=== PATIENT | female | born 1950 | race Caucasian/White ===

== ENCOUNTER 2022-12-03 09:16 | Outpatient (OUT) | payer MEDICARE, OTHER, SELFPAY ==
[2022-12-03 09:51] LABS: Basophils Absolute Auto 0.1 10^3/uL (0.0-0.1); Basophils Percent Auto 1.3 % (0.2-2.0); Eosinophils Absolute Auto 0.4 10^3/uL (0.0-0.7); Eosinophils Percent Auto 6.4 % (0.9-7.0); Hematocrit 39.6 % (36.0-48.0); Hemoglobin 12.9 g/dL (12.0-16.0); Immature Granulocytes Abs Auto 0.02 10^3/uL (0.00-0.03); Immature Granulocytes Pct Auto 0.4 % (0.0-0.5); Lymphocytes Absolute Auto 1.2 10^3/uL (1.2-3.8); Lymphocytes Percent Auto 21.5 % (20.5-60.0); Mean Corpuscular HGB Conc 32.6 g/dL (29.9-35.2); Mean Corpuscular Hemoglobin 32.4 pg (26.7-34.0); Mean Corpuscular Volume 99.5 fL (81.0-99.0); Mean Platelet Volume 10.3 fL (9.5-13.5); Monocytes Absolute Auto 0.7 10^3/uL (0.3-0.8); Neutrophils Absolute Auto 3.2 10^3/uL (1.4-6.5); Neutrophils Percent Auto 58.4 % (43.0-75.0); Platelet Count 328 10^3/uL (150-450); Red Blood Count 3.98 10^6/uL (4.20-5.40); Red Cell Distribution Width 13.4 % (11.0-15.0); White Blood Count 5.5 10^3/uL (4.0-11.0)
[2022-12-03 12:12] LABS: Estimated Average Glucose 100 mg/dL; Glycohemoglobin A1C 5.1 % (4.5-6.2)
[2022-12-03 13:24] LABS: Alanine Aminotransferase 34 U/L (14-59); Albumin Globulin Ratio 1.1; Albumin Level 4.2 g/dL (3.4-5.0); Alkaline Phosphatase 43 U/L (46-116); Anion Gap 10.8; Aspartate Amino Transferase 34 U/L (15-37); BUN Creatinine Ratio 19.2; Bilirubin Total 0.4 mg/dL (0.2-1.0); Calcium 10.1 mg/dL (8.5-10.1); Carbon Dioxide 30.3 mmol/L (21.0-32.0); Chloride 104 mmol/L (98-107); Chol HDL Ratio 2.8; Cholesterol 188 mg/dL (<=200); Estimated GFR (African America 39 (>=60); Estimated GFR (Non-African Ame 33 (>=60); Free T3 1.98 pg/mL (2.18-3.98); Globulin 3.8 g/dL; Glucose 88 mg/dL (74-106); HDL Cholesterol 68 mg/dL (40-60); Potassium 4.1 mmol/L (3.5-5.1); Sodium 141 mmol/L (136-145); Triglycerides 60 mg/dL (<=150)
== END 2022-12-03 09:17 | disposition home or self-care (01) ==
LOC: LAB 09:19
PROVIDERS: PCP Family Medicine; Visit Provider Family Medicine
DX: I10 Essential (primary) hypertension (principal); K21.9 Gastro-esophageal reflux disease without esophagitis; E03.9 Hypothyroidism, unspecified; J30.9 Allergic rhinitis, unspecified; E78.5 Hyperlipidemia, unspecified; R73.09 Other abnormal glucose; D64.9 Anemia, unspecified; E55.9 Vitamin D deficiency, unspecified
CPT/HCPCS: 36415; 80053; 80061; 82306; 83036; 83540; 84436; 84443; 84481; 85025

== ENCOUNTER 2023-01-05 07:08 | Outpatient (RCR) | payer MEDICARE, OTHER, SELFPAY ==
[2023-01-05 07:31] LABS: Calcium 9.9 mg/dL (8.5-10.1); Estimated GFR (African America 49 (>=60); Estimated GFR (Non-African Ame 41 (>=60)
[2023-01-05 07:44] VITALS: BP 126/78; PULSE 50; RESP 18; TEMP 36.3; O2SAT 98
--- NOTE | 2023-01-05 07:58 | PC.NURSE ---
0744: Pt. to [facility] amb for Prolia injection. Seated in recliner. VSS. Denies reaction to med from past injections. Denies needs or c/o. Given water.
[2023-01-05] MEDS: DENOSUMAB 60 MG/ML SYRINGE SUBQ (08:04)
--- NOTE | 2023-01-05 08:06 | PC.NURSE ---
0804: Medicated with Prolia 60mg SQ to right arm. No bleeding to site. Pt. tolerates without c/o. Remains in recliner for brief observation.
--- NOTE | 2023-01-05 08:12 | PC.NURSE ---
0812: Pt. requests to leave due to another appointment. Denies c/o pain, n/v or dyspnea. D/c'd amb. to home with .
[2023-01-05 08:28] LABS: Free T4 1.39 ng/dL (0.76-1.46)
[2023-01-05 08:36] LABS: Thyroid Stimulating Hormone 0.274 uIU/mL (0.358-3.740)
== END 2023-02-03 17:52 | disposition home or self-care (01) ==
LOC: LAB 07:08
PROVIDERS: PCP Family Medicine; Visit Provider Family Medicine
DX: M81.0 Age-related osteoporosis without current pathological fracture (principal); E03.9 Hypothyroidism, unspecified
CPT/HCPCS: 36415; 82310; 82565; 84439; 84443; 96372; J0897

== ENCOUNTER 2023-01-23 07:05 | Outpatient (OUT) | payer MEDICARE, OTHER, SELFPAY ==
--- NOTE | 2023-01-23 | MM_ITS ---
Patient: AKIRA PERALTA Exam Date: 01/23/2023 : 1950 Gender:F Ordering : DR Miko Burris . Admission #: [id number] Family : Order #: [id number] CLICK HERE TO VIEW EXAM RADIOLOGY REPORT PROCEDURE: MM TOMOSYNTHESIS SCREENING BI COMPARISON: MG MAMM DX 3D LT CAD, 08/05/2021. MG MAMM SCREEN 3D NOEL CAD, 01/22/2022. INDICATIONS: Screening Calculator Name NCI Breast Cancer Risk Assessment Tool 5 Year Breast Cancer Risk 1.40% Lifetime Breast Cancer Risk 3.40% Personal Breast Cancer No Personal Ovarian Cancer No Treatments None Family Cancers Sister with ovarian cancer at age 53; Brother with pancreatic cancer at age 43; Uncle-maternal with bone cancer at age ~60; Aunt-maternal with all over cancer at age ~60; Uncle-maternal with lung cancer at age ~60. LOCATION: [facility] BREAST COMPOSITION: Scattered areas fibroglandular density. FINDINGS: DIAGNOSTIC CATEGORY 2--BENIGN FINDING. NO CHANGE FROM COMPARISON. Scattered benign-appearing calcifications are present. Scattered benign-appearing lymph nodes are present. RIGHT BREAST: No significant suspicious finding. LEFT BREAST: No significant suspicious finding. RECOMMENDATIONS: ROUTINE MAMMOGRAM AND CLINICAL EVALUATION IN 12 MONTHS. PLEASE NOTE: A NORMAL MAMMOGRAM DOES NOT EXCLUDE THE POSSIBILITY OF BREAST CANCER. A CLINICALLY SUSPICIOUS PALPABLE LUMP SHOULD BE BIOPSIED. Dictated by: Timi Buckley MD on 01/23/2023 at 09:27 Approved by: Timi Buckley MD on 01/23/2023 at 09:30
== END 2023-01-23 07:06 | disposition home or self-care (01) ==
LOC: MAMMO 07:05
PROVIDERS: PCP Family Medicine; Visit Provider Family Medicine
DX: Z12.31 Encounter for screening mammogram for malignant neoplasm of breast (principal); Z80.41 Family history of malignant neoplasm of ovary; Z80.8 Family history of malignant neoplasm of other organs or systems; Z80.1 Family history of malignant neoplasm of trachea, bronchus and lung
CPT/HCPCS: 77063; 77067

== ENCOUNTER 2023-03-19 11:28 | Outpatient (REF) | payer MEDICARE, OTHER, SELFPAY ==
[2023-03-19 12:19] LABS: SARS-CoV-2 Ag NEGATIVE (NEGATIVE)
[2023-03-19 16:11] LABS: SARS-CoV-2 NAA NOT DETECTED (NOT DETECTE)
== END 2023-03-19 11:29 | disposition home or self-care (01) ==
LOC: LAB 11:28
PROVIDERS: PCP Family Medicine; Visit Provider Family Medicine
DX: J21.9 Acute bronchiolitis, unspecified (principal)
CPT/HCPCS: 87635; 87811

== ENCOUNTER 2023-05-11 07:42 | Outpatient (OUT) | payer MEDICARE, OTHER, SELFPAY ==
--- OUTSIDE RECORDS SUMMARY | 2023-05-11 07:45 | XMS_ITS | CCD ---
Author Name Unknown Address [address] [facility] [address] [place] [id number] Organization [facility] Care Team Providers Care Bar Useful Or Busser Name Role Phone HOY ., DR ALVARADO Primary Care Unavailable HOY ., DR ALVARADO Consulting Unavailable HOY ., DR ALVARADO Attending Unavailable HOY ., DR ALVARADO Admitting Unavailable HOY ., DR ALVARADO Admitting Unavailable HOY ., DR ALVARADO Primary Care Unavailable HOY ., DR ALVARADO Consulting Unavailable HOY ., DR ALVARADO Attending Unavailable WEST, DR TESSA Bhat Consulting Unavailable HOY ., DR ALVARADO Primary Care Unavailable HOY ., DR ALVARADO Attending Unavailable HOY ., DR ALVARADO Consulting Unavailable HOY ., DR ALVARADO Admitting Unavailable HOY ., DR ALVARADO Primary Care Unavailable HOY ., DR ALVARADO Attending Unavailable HOY ., DR ALVARADO Consulting Unavailable HOY ., DR ALVARADO Admitting Unavailable ZIEBER, DR WEI Oliva Consulting Unavailable HOY ., DR ALVARADO Admitting Unavailable HOY ., DR ALVARADO Primary Care Unavailable HOY ., DR ALVARADO Attending Unavailable HOY ., DR ALVARADO Consulting Unavailable HOY ., DR ALVARADO Admazucena Unavailable HOY ., DR ALVARADO Primary Care Unavailable HOY ., DR ALVARADO Consulting Unavailable HOY ., DR ALVARADO Attending Unavailable ZIEBER, DR WEI Oliva Consulting Unavailable HOY ., DR ALVARADO Primary Care Unavailable HOY ., DR ALVARADO Attending Unavailable HOY ., DR ALVARADO Admazucena Unavailable HOY ., DR ALVARADO Admitting Unavailable HOY ., DR ALVARADO Primary Care Unavailable HOY ., DR ALVARADO Consulting Unavailable HOY ., DR ALVARADO Attending Unavailable WEST, DR TESSA Bhat Consulting Unavailable HOY ., DR ALVARADO Admazucena Unavailable HOY ., DR ALVARADO Primary Care Unavailable HOY ., DR ALVARADO Consulting Unavailable HOY ., DR ALVARADO Attending Unavailable HOY ., DR ALVARADO Primary Care Unavailable ZIEBER, DR WEI Oliva Consulting Unavailable ALGHOTHANI, MOHAMAD Admitting Unavailable ALGHOTHANI, MOHAMAD Attending Unavailable ALGHOTHANI, MOHAMAD Consulting Unavailable HOY ., DR ALVARADO Primary Care Unavailable ALGHOTHANI, MOHAMAD Admitting Unavailable ALGHOTHANI, MOHAMAD Consulting Unavailable ALGHOTHANI, MOHAMAD Attending Unavailable HOY ., DR ALVARADO Admitting Unavailable HOY ., DR ALVARADO Consulting Unavailable HOY ., DR ALVARADO Primary Care Unavailable HOY ., DR ALVARADO Attending Unavailable ZIEBER, DR WEI Oliva Consulting Unavailable HOY ., DR ALVARADO Admitting Unavailable HOY ., DR ALVARADO Primary Care Unavailable HOY ., DR ALVARADO Attending Unavailable HOY ., DR ALVARADO Consulting Unavailable HOY ., DR ALVARADO Primary Care Unavailable HOY ., DR ALVARADO Attending Unavailable HOY ., DR ALVARADO Admitting Unavailable HOY ., DR ALVARADO Consulting Unavailable HOY ., DR ALVARADO Attending Unavailable HOY ., DR ALVARADO Primary Care Unavailable HOY ., DR ALVARADO Admitting Unavailable HOY ., DR ALVARADO Consulting Unavailable ZIEBER, DR WEI Oliva Consulting Unavailable HOY ., DR ALVARADO Primary Care Unavailable SURINDER, ERNIE Admitting Unavailable SURINDER, ERNIE Consulting Unavailable ERNIE CADENA Attending Unavailable MAGNUS LACY Attending Unavailable ALGHOTHANI, MOHAMAD Attending Unavailable ALGHOTHANI, MOHAMAD Attending Unavailable TEGAN PAIZ Attending Unavailable Allergies Allergy Classification Reported Allergen(s) Allergy Type Date of Onset Reaction(s) Facility (2 sources) Amoxicillin; Translations: [AMOXICILLIN] Drug Allergy 05-13-2022 [facility] Repository (2 sources) Morphine; Translations: [MORPHINE] Drug Allergy 05-13-2022 [facility] Problems Active Problems Problem Classification Problem Date Documented Da te Episodic/Chronic Acute bronchitis (5 sources) Acute bronchitis, unspecified; Translations: [ACUTE BRONCHITIS UNSPECIFIED] Onset: 11-01-2021 Episodic Disorders of lipid metabolism (5 sources) Hyperlipidemia, unspecified; Translations: [Mixed hyperlipidemia] Onset: 11-15-2021 Chronic Esophageal disorders (1 source) Gastro-esophageal reflux disease without esophagitis; Translations: [GERD WITHOUT ESOPHAGITIS] Onset: 11-15-2021 Chronic Essential hypertension (4 sources) Essential (primary) hypertension; Translations: [ESSENTIAL PRIMARY HYPERTENSION] Onset: 11-14-2021 Chronic Headache; including migraine (4 sources) Migraine without aura, not intractable, without status migrainosus; Translations: [MIGRAINE W/O AURA NOT INTRCT W/O SE] Onset: 09-18-2021 Chronic Heart valve disorders (8 sources) Nonrheumatic mitral (valve) insufficiency; Translations: [Rheumatic disorders of both mitral and tricuspid valves] Onset: 05-13-2022 Chronic Nonspecific chest pain (4 sources) Chest pain, unspecified; Translations: [CHEST PAIN UNSPECIFIED] Onset: 05-26-2022 Episodic Nutritional deficiencies (1 source) Vitamin D deficiency, unspecified; Translations: [VITAMIN D DEFICIENCY UNSPECIFIED] Onset: 11-15-2021 Chronic Osteoporosis (4 sources) Age-related osteoporosis without current pathological fracture; Translations: [AGE-REL OSTEOPOR W/O CURR PATH FX] Onset: 07-02-2022 Chronic Peripheral and visceral atherosclerosis (1 source) Peripheral vascular disease, unspecified; Translations: [PERIPHERAL VASCULAR DISEASE UNS] Onset: 06-05-2022 Chronic Residual codes; unclassified (1 source) Localized edema; Translations: [LOCALIZED EDEMA] Onset: 06-11-2022 Episodic Thyroid disorders (1 source) Hypothyroidism, unspecified; Translations: [HYPOTHYROIDISM UNSPECIFIED] Onset: 11-15-2021 Chronic Unclassified (3 sources) OTHER LOW BACK PAIN; Translations: [OTHER LOW BACK PAIN] Onset: 06-11-2022 Unclassified (4 sources) CONTACT W/AND (SUSP) EXPOS COVID-19; Translations: [CONTACT W/AND (SUSP) EXPOS COVID-19] Onset: 11-06-2021 Unclassified (2 sources) Valve Disorder; Translations: [Valve Disorder] Onset: 05-14-2022 Past or Other Problems Problem Classification Problem Date Documented Da te Episodic/Chronic Deficiency and other anemia (1 source) Anemia, unspecified; Translations: [ANEMIA UNSPECIFIED] Onset: 11-15-2021 Episodic Diabetes mellitus without complication (1 source) Other abnormal glucose; Translations: [OTHER ABNORMAL GLUCOSE] Onset: 11-15-2021 Episodic Other screening for suspected conditions (not mental disorders or infectious disease) (8 sources) Encounter for screening mammogram for malignant neoplasm of breast; Translations: [Other abnormal and inconclusive findings on diagnostic imaging of breast] Onset: 08-05-2021 Episodic Other upper respiratory infections (1 source) Acute sinusitis, unspecified; Translations: [ACUTE SINUSITIS UNSPECIFIED] Onset: 08-07-2021 Episodic Residual codes; unclassified (1 source) Family history of malignant neoplasm of trachea, bronchus and lung; Translations: [FAM HX MALIG NEOPLSM TRACH BRON LNG] Onset: 01-26-2022 Episodic Residual codes; unclassified (1 source) Family history of malignant neoplasm of ovary; Translations: [FAM HX MALIGNANT NEOPLASM OVARY] Onset: 01-26-2022 Episodic Residual codes; unclassified (1 source) Family history of malignant neoplasm of other organs or systems; Translations: [FAM HX MALIG NEOPLASM OTH ORGN/SYS] Onset: 01-26-2022 Episodic Residual codes; unclassified (2 sources) Family history of ischemic heart disease and other diseases of the circulatory system; Translations: [Family history of ischemic heart disease and other diseases of the circulatory system] Onset: 05-13-2022 Episodic Unclassified (1 source) OTHER LOW BACK PAIN; Translations: [OTHER LOW BACK PAIN] Onset: 05-30-2022 Unclassified (1 source) CONTACT W/AND (SUSP) EXPOS COVID-19; Translations: [CONTACT W/AND (SUSP) EXPOS COVID-19] Onset: 05-22-2022 Results Test Name Value Interpretation Reference Range Facility Office Visiton 04-10-2023 Follow-up visit [id number] Shirley Buitrago ly D 1950 F Date Provider Department Center 04/10/2023 3848-MELO JENKINS [facility] No family history on file Level of Service:56371 [place] OFFICE/OUTPATIENT ESTABLISHED LOW MDM 20 MIN Normal [facility] Office Visiton 11-25-2022 Follow-up visit [id number] Shirley Buitrago ly D 1950 F Date Provider Department Center 11/25/2022 TEGAN LILLY PEDRO [facility] No family history on file Level of Service:55678 [place] OFFICE/OUTPATIENT ESTABLISHED MOD MDM 30-39 MIN Normal [facility] CALCIUMon 07-02-2022 Calcium [Mass/Vol] 9.8 mg/dL Normal 8.5-10.1 [facility] Comment on above: Performed By: #### C A, CREA #### [facility] [address] [place] [address] Dr. Zuly Medina CREATININEon 07-02-2022 Creatinine [Mass/Vol] 1.41 mg/dL Critically high 0.55-1.02 [facility] Comment on above: Performed By: #### C A, CREA #### [facility] [address] [place] [address] Dr. Zuly Medina EGFR-AF PRYDEINIG 44 mL/min/1.73m2 Critically low >=60 [facility] Comment on above: Performed By: #### C A, CREA #### [facility] [address] [place] [address] Dr. Zuly Medina EGFR-NON AF PRYDEINIG 37 mL/min/1.73m2 Critically low >=60 [facility] Comment on above: Performed By: #### C A, CREA #### [facility] [address] [place] [address] Dr. Zuly Medina MRI LSPINE WO CONon 06-02-19 23 MRI LSPINE WO CON EXAMINATION: MRI LSPINE WO CON HISTORY: Low back pain COMPARISON: No relevant comparison available. TECHNIQUE: A variety of imaging planes and parameters were utilized for visualization of suspected pathology. FINDINGS: For the purposes of numbering, sagittal T2 image # 8 extends from the T10-T11 vertebral body superiorly to the S2-S3 level inferiorly. PARASPINAL AREA: Normal with no visible mass. BONES: Normal alignment with no acute fracture or spondylolisthesis. Moderate signal abnormality consistent with age related marrow changes CORD/CAUDA EQUINA: Normal caliber, contour, and signal intensity. DISC LEVELS: 12-L1: No significant disc/facet abnormality, spinal stenosis, or foraminal stenosis. L1-L2: No significant disc/facet abnormality, spinal stenosis, or foraminal stenosis. L2-L3: Mild disc space narrowing and disc desiccation. Mild diffuse posterior disc/osteophyte complex. No central or foraminal stenosis L3-L4: Moderate disc space narrowing and disc desiccation. Mild to moderate diffuse disc/osteophyte complex. No central or foraminal stenosis L4-L5: Moderate disc space narrowing and disc desiccation with endplate sclerosis. Moderate diffuse disc/osteophyte complex. Posterior broad-based disc herniation the protrusion type extending up to 3.5 mm. Central or foraminal stenosis L5-S1: Early degenerative disc disease is present without focal protrusion or neural impingement. IMPRESSION: Degenerative changes most significant at L3-L4 and L4-L5. No central or foraminal stenosis Electronically authenticated by: TESSA ESTEVES Date: 2022-06-02 07:58 Normal [facility] VC VENOUS REFLUX NOEL LMTon 0 05-30-2022 VC VENOUS REFLUX NOEL LMT Patient: ADRIANNA BUITRAGO Exam Date: 05/30/2022 : 1950 Gender:F Ordering : DR JENNY NATARAJAN . Admission #: [id number] Family : Order #: [id number] CLICK HERE TO VIEW EXAM RADIOLOGY REPORT PROCEDURE: VEIN CENTER ULTRASOUND VENOUS REFLUX BILATERAL LIMTED COMPARISON: None. INDICATIONS: Low back pain M54.59 TECHNIQUE: Duplex imaging of the lower extremity to assess the deep and superficial venous system for the presence of deep or superficial venous incompetence and to document the location and severity of disease. The study includes evaluation of the great saphenous vein (GSV), anterior accessory saphenous vein (AASV) and small saphenous vein (SSV). Patient scanned in reverse Trendelenburg and standing. FINDINGS: RIGHT LOWER EXTREMITY: Saphenofemoral Junction Reflux: Yes 8.2mm 1.4 sec GSV: Diam (mm) Reflux/ Time (sec) Proximal Thigh 4.6 Yes 0.6 Mid Thigh 2.1 Yes 0.3 Distal Thigh 1.8 No Prox Calf 1.5 No Mid Calf 1.2 Yes 0.3 Saphenopopliteal Junction Reflux: 2.7mm Yes 0.5 SSV: Proximal Calf 2.1 No Mid Calf 3.0 Yes 0.4 AASV: Proximal Thigh 2.9 Yes 0.8 Mid Thigh 1.9 Yes 0.4 Distal Thigh Thrombi: No acute or chronic thrombus. Compressibility: Normal. Flow: Deep venous reflux. Distal medial lower leg 3.8 mm with 0.7s reflux. Tech Note: Medial knee varicose vein measures 1.4 mm with 1.2s reflux. Varicose vein anterior knee measures 1.4 mm with 0.3s reflux. LEFT LOWER EXTREMITY: Saphenofemoral Junction Reflux: No 6.8 mm 0 sec GSV: Diam (mm) Reflux/Time (sec) Proximal Thigh 2.9 No Mid Thigh 2.3 Yes 0.2 Distal Thigh 2.0 Yes 0.2 Prox Calf 1.9 Yes 0.2 Mid Calf 3.2 Yes 4.6 Saphenopopliteal Junction Relux: 2.8 mm Yes 0.2 SSV: Proximal Calf 3.2 Yes 0.2 Mid Calf 2.7 Yes 0.3 AASV: Not present Proximal Thigh Mid Thigh Distal Thigh Thrombi: No acute or chronic thrombus. Compressibility: Normal. Flow: Deep venous reflux. Veterinary Practitioner: Tech Note: Proximal medial lower leg varicose vein measures 1.7 mm with 0.3s reflux. Mid medial calf varicose vein measures 1.5 mm without reflux. CONCLUSION: 1. Minimal right great, small and anterior accessory saphenous vein insufficiency without dilatation 2. Single short segment of moderate reflux left distal great saphenous vein 3. Bilateral deep vein reflux Dictated by: Tessa Esteves MD on 05/30/2022 at 11:18 Approved by: Tessa Esteves MD on 05/30/2022 at 11:20 Normal [facility] STRESS/REST MULTIon 05-26 [place] STRESS/REST MULTI Patient: KATHRYN ADRIANNA AyonDexter Exam Date: 05/26/2022 : 1950 Gender:F Ordering : MELO JENKINS Admission #: [id number] Family : DR JENNY NATARAJAN . Order #: [id number] CLICK HERE TO VIEW EXAM RADIOLOGY REPORT PROCEDURE: RADIONUCLIDE IMAGING STRESS/REST MULTI COMPARISON: NM STRESS/REST MULTI, 06/17/2017. INDICATIONS: Chest pain TECHNIQUE: Exam Description: Stress/Rest one day protocol gated SPECT Rest Imagin.9 mCi Tc-99m Cardiolite IV on 05/26/2022 Stress Imaging 32.0 mCi Tc-99m Cardiolite IV on 05/26/2022 Exercise Protocol: Ray Heart Rate (bpm): Rest: 57 Max: 148 PMHR: 98 Blood Pressure: Rest: 128/64 Max: 168/80 Exercise Time: Minutes: 7 Seconds: 30 Stage Reached: Stage: 3 Mets 10.1 Symptoms: none Rest and peak stress ECG findings were normal and the exercise portion of the study was normal per attending physician Dr. Garcia . For more details please see separate cardiac stress test report. FINDINGS: QUALITY OF STUDY: Excellent. PERFUSION DEFECT: None. LOCATION: N/A SIZE: N/A. SEVERITY: N/A. TYPE: N/A. WALL MOTION: Normal. LV SIZE: Normal. 45 mL. TID / TCD: None; 0.6 LVEF: Normal. Calculated EF 91%. SUMMARY: Myocardial perfusion imaging study is NORMAL. CONCLUSION: 1. Normal nuclear medicine myocardial perfusion scan. 2. Normal exercise portion of study. Please see Dr. Garcia's report. Dictated by: Wei Garcia M.D. on 05/27/2022 at 12:58 Approved by: Wei Garcia M.D. on 05/27/2022 at 13:00 Normal [facility] XR LSPINE MIN 4 VIEWSon 05-07 XR LSPINE MIN 4 VIEWS EXAMINATION: XR LSPINE MIN 4 VIEWS HISTORY: Low back pain , leg cramping, foot pain COMPARISON: No relevant comparison available. FINDINGS: BONES: Mild left convex curvature of lumbar spine. Mild straightening of normal lordotic curvature. Mild grade 1 retrolisthesis of L4 on 5. Moderate degenerative facet arthropathy L3-4 through L5-S1. DISC SPACES: Marked narrowing L3-4, L4-5. Mild narrowing L5-S1. PARASPINOUS: Atherosclerotic disease of aorta without visible aneurysm. OTHER: 1.4 cm stone suspected to be within gallbladder. IMPRESSION: 1. Marked degenerative changes of lower lumbar spine. Consider MRI for further evaluation. Electronically authenticated by: WEI GARCIA Date: 2022-05-23 14:32 Normal [facility] Covid-19 PCR (CVDTBH)on 05-07 SARS-CoV-2 (COVID-19) RNA MARY+probe Ql (Unsp spec) Not detected Normal NOT DETECTED [facility] Comment on above: Result Comment: This test is not yet approved or cleared by the [place] FDA. When there are no FDA-approved or cleared tests available, and other criteria are met, FDA can make tests available under an emergency access mechanism called an Emergency Use Authorization (EUA). The EUA for this test is supported by the [place] of Health and Human Service's (HHS's) declaration that circumstances exist to justify the emergency use of in vitro diagnostics for the detection and/or diagnosis of the virus that causes COVID-19. This EUA will remain in effect (meaning this test can be used) for the duration of the COVID-19 declaration justifying emergency of IVDs, unless it is terminated or revoked by FDA (after which the test may no longer be used). When diagnostic testing is negative, the possibility of a false negative should be considered in the context of a patient's recent exposures and the presence of clinical signs and symptoms consistent with SARS-CoV-2. Performed By: #### C VDTB #### [facility] [address] [place] [address] Dr. Zuly Medina INFLUENZA A AND B AGon 05-22 [facility] SEE BELOW Normal [facility] Comment on above: Result Comment: Nega tive for Flu A protein angiten. Infection due to Flu A cannot be ruled out. Flu A angiten in the sample may be below the detection limit of the test. Performed By: #### I NFLUAB #### [facility] [address] [place] [address] Dr. Zuly [facility] BEL[facility] Normal [facility] Comment on above: Result Comment: Nega tive for Flu B protein antigen. Infection due to Flu B cannot be ruled out. Flu B antigen in the sample may be below the detection limit of the test. Performed By: #### I NFLUAB #### [facility] [address] [place] [address] Dr. Zuly Medina INFLUENZA A AG Negative Normal NEGATIVE SEE COMMENT [facility] Comment on above: Performed By: #### I NFLUAB #### [facility] [address] [place] [address] Dr. Zuly Medina INFLUENZA B AG Negative Normal NEGATIVE SEE COMMENT [facility] Comment on above: Performed By: #### I NFLUAB #### [facility] [address] [place] [address] Dr. Zuly Medina ECHOCARDIO M/2D COMPLETEon 0 05-14-2022 ECHOCARDIO M/2D COMPLETE Patient: ADRIANNA BUITRAGO Exam Date: 05/14/2022 : 1950 Gender:F Ordering : MELO JENKINS Admission #: [id number] Family : JENYN NATARAJAN . Order #: [id number] CLICK HERE TO VIEW EXAM ECHOCARDIOGRAM REPORT PROCEDURE: CARDIO PULMONARY ECHOCARDIO M/2D COMP INDICATIONS: Mitral regurgitation, COPD, Chronic bronchitis COMPARISON: None. DESCRIPTION: COMPLETE ECHOCARDIOGRAM Real-time transthoracic echocardiography with 2D, M-mode, spectral and color flow Doppler performed. QUALITY: Technical quality was adequate. 63 124# 126/60 HR 51 LEFT VENTRICLE: Normal chamber size. Proximal septal hypertrophy (sigmoid septum). Global left ventricular systolic function is normal. No regional wall motion abnormalities. LV EF: Visual estimation of left ventricular ejection fraction is 65%. DIASTOLIC: Normal diastolic function. ATRIAL SEPTUM: LEFT ATRIUM: Normal chamber size. RIGHT ATRIUM: Normal chamber size. RIGHT VENTRICLE: Normal chamber size. Normal right ventricular systolic function. TRICUSPID VALVE: Normal mobility and thickness. No stenosis with mild regurgitation. No evidence of pulmonary hypertension. RVSP 27 mmHg MITRAL VALVE: Normal mobility and thickness. No evidence of mitral valve stenosis. Mild mitral annular calcification. Trivial mitral regurgitation. AORTIC VALVE: Normal trileaflet appearance. No evidence of aortic valve stenosis. No aortic regurgitation. AORTIC ROOT: Normal diameter and appearance. PULMONIC VALVE: Normal thickness and mobility. No stenosis. Trivial regurgitation. PERICARDIUM: No evidence of pericardial effusion. IVC: Collapses with inspirations. IVC is small in size. PLEURA: CONCLUSION: 1. Normal ventricular systolic function. LVEF is 65%. 2. Normal diastolic function. 3. Mild tricuspid regurgitation. Trivial mitral regurgitation. 4. Normal right-sided pressures. 5. No pericardial effusion. Adult Echocardiography Procedure Report Left Ventricle LVEDD (3.7 - 5.6 cm): 4.08 cm LVESD (2.2 - 4.0 cm): 2.91 cm LVPW thickness (0.5 - 1.0 cm): 0.92 cm LVOT Max Gradient: 4.43 mm[Hg] Peak Velocity (LVOT): 1.05 m/s LVOT Diameter 1.86 cm Left Ventricular Ejection Fraction: 65 % Left Atrium LA Volume Index (2D A2C): 46.73 ml, 46.73 ml Left Atrium Systolic Dimension: 3.76 cm Mitral Valve MV E to A Ratio: 0.82 Mitral Valve A-Wave Peak Velocity: 0.82 m/s Mitral Valve E-Wave Peak Velocity: 0.67 m/s Right Ventricle RV Internal Diastolic Dimension: 3.36 cm Aorta AO Root Diam: 2.99 cm Ascending Ao Diam: 3.37 cm Aortic Valve AoV Area (Peak Fransico): 2.55 cm2, 2.55 cm2 Peak Velocity(Antegrade Flow): 1.12 m/s, 1.12 m/s Peak Gradient(Antegrade Flow): 5.01 mm[Hg], 5.01 mm[Hg] Tricuspid Valve Peak Velocity (Regurgitant Flow): 2.43 m/s, 2.10 m/s, 2.18 m/s, 2.18 m/s Pulmonic Valve Peak Velocity: 0.82 m/s Peak Gradient: 2.72 mm[Hg] Right Atrium Dictated by: Azam Garcia M.D. on 05/15/2022 at 18:48 Approved by: Azam Garcia M.D. on 05/15/2022 at 18:51 Normal [facility] Office Visiton 05-14-2022 Follow-up visit [id number] Shirley Buitrago 1950 F Date Provider Department Center 05/14/2022 3848-MELO JENKINS [facility] No family history on file Level of Service:66710 [place] OFFICE/OUTPATIENT ESTABLISHED MOD MDM 30-39 MIN Reason for Visit and Comments: Hyperlipidemia [182] Valve Disorder [3372] Normal [facility] MG MAMM SCREEN 3D NOEL CADon 01-22-2022 MG MAMM SCREEN 3D NOEL CAD Patient: BUITRAGOADRIANNA Exam Date: 01/22/2022 : 1950 Gender:F Ordering : DR JENNY NATARAJAN . Admission #: [id number] Family : Order #: [id number] CLICK HERE TO VIEW EXAM RADIOLOGY REPORT PROCEDURE: MAMMOGRAM SCREENING 3D BILATERAL CAD COMPARISON: MG MAMM DX 3D LT CAD, 08/05/2021. MG MAMM SCREEN 3D NOEL CAD, 01/21/2021. INDICATIONS: Screening mammography Calculator Name NCI Breast Cancer Risk Assessment Tool 5 Year Breast Cancer Risk 1.40% Lifetime Breast Cancer Risk 3.60% Personal Breast Cancer No Personal Ovarian Cancer No Treatments None Family Cancers Sister with ovarian cancer at age 53; Brother with pancreatic cancer at age 43; Uncle-maternal with bone cancer at age 60; Aunt-maternal with all over cancer at age 60; Uncle-maternal with lung cancer at age 60. LOCATION: [facility] BREAST COMPOSITION: Scattered areas fibroglandular density. FINDINGS: DIAGNOSTIC CATEGORY 2--BENIGN FINDING: RIGHT BREAST: No significant suspicious finding. No significant change has occurred. LEFT BREAST: No significant suspicious finding. Stable, chronic asymmetries within the upper outer and lower outer quadrants. No significant change has occurred. RECOMMENDATIONS: ROUTINE MAMMOGRAM AND CLINICAL EVALUATION IN 12 MONTHS. PLEASE NOTE: A NORMAL MAMMOGRAM DOES NOT EXCLUDE THE POSSIBILITY OF BREAST CANCER. A CLINICALLY SUSPICIOUS PALPABLE LUMP SHOULD BE BIOPSIED. Dictated by: Wei Garcia M.D. on 01/22/2022 at 14:28 Approved by: Wei Garcia M.D. on 01/22/2022 at 14:36 Normal [facility] CALCIUMon 12-31-2021 Calcium [Mass/Vol] 10.0 mg/dL Normal 8.5-10.1 [facility] Comment on above: Performed By: #### CHIDI MCDANIEL #### [facility] [address] [place] [address] Dr. Zuly Medina CREATININEon 12-31-2021 Creatinine [Mass/Vol] 1.33 mg/dL Critically high 0.55-1.02 [facility] Comment on above: Performed By: #### CHIDI MCDANIEL #### [facility] [address] [place] [address] Dr. Zuly Medina EGFR-AF PRYDEINIG 48 mL/min/1.73m2 Critically low >=60 [facility] Comment on above: Performed By: #### CHIDI MCDANIEL #### [facility] [address] [place] [address] Dr. Zuly Medina EGFR-NON AF PRYDEINIG 39 mL/min/1.73m2 Critically low >=60 [facility] Comment on above: Performed By: #### CHIDI MCDANIEL #### [facility] [address] [place] [address] Dr. Zuly Medina [facility]06 SARS-CoV-2 (COVID-19) RNA MARY+probe Ql (Unsp spec) Not detected Normal NOT DETECTED [facility] Comment on above: Result Comment: This test is not yet approved or cleared by the [place] FDA. When there are no FDA-approved or cleared tests available, and other criteria are met, FDA can make tests available under an emergency access mechanism called an Emergency Use Authorization (EUA). The EUA for this test is supported by the Geophysical Party Chief of Health and Human Service's (HHS's) declaration that circumstances exist to justify the emergency use of in vitro diagnostics for the detection and/or diagnosis of the virus that causes COVID-19. This EUA will remain in effect (meaning this test can be used) for the duration of the COVID-19 declaration justifying emergency of IVDs, unless it is terminated or revoked by FDA (after which the test may no longer be used). When diagnostic testing is negative, the possibility of a false negative should be considered in the context of a patient's recent exposures and the presence of clinical signs and symptoms consistent with SARS-CoV-2. Performed By: #### C VDTBH #### [facility] [address] [place] [address] Dr. Zuly Medina T4, T3U, FTI LABCORPon 11-15 Free Thyroxine Index 2.7 Normal 1.2-4.9 [facility] Comment on above: Performed By: #### C VDTBH #### [facility] [address] [place] [address] Dr. Zuly Medina T3 Uptake 32 % Normal 24-39 [facility] Comment on above: Performed By: #### C VDTBH #### [facility] [address] [place] [address] Dr. Zuly Medina T4 [Mass/Vol] 8.5 ug/dL Normal 4.5-12.0 [facility] Comment on above: Performed By: #### C VDTBH #### [facility] [address] [place] [address] Dr. Zuly Medina VIT D 25-OH LABCORPon 2021 Vitamin D, 25-Hydroxy 114.0 ng/mL Critically high 30.0-100.0 [facility] Comment on above: Result Comment: Jenny min D deficiency has been defined by the [place] of [employer] and an Endocrine Society practice guideline as a level of serum 25-OH vitamin D less than 20 ng/mL (1,2). The Endocrine Society went on to further define vitamin D insufficiency as a level between 21 and 29 ng/mL (2). 1. IOM ([place] of Medicine). 2010. Dietary reference intakes for calcium and D. Steve [place]: The National Academies Press. 2. Anel MF, Chandrika NC, Ronaldo MCCALLUM, et al. Evaluation, treatment, and prevention of vitamin D deficiency: an Endocrine Society clinical practice guideline. JCEM. 2010; 96(7):1911-30. Performed By: #### V ITADLC #### [facility] [address] [place] [address] Dr. Zuly Medina CBC AUTO DIFFon 11-14-2021 BASO # 0.0 103/ul Normal 0.0-0.1 [facility] Comment on above: Performed By: #### CHIDI MCDANIEL #### [facility] [address] [place] [address] Dr. Zuly Medina Basophils/100 WBC (Bld) 0.4 % Normal 0.2-2.0 [facility] Comment on above: Performed By: #### CHIDI MCDANIEL #### [facility] [address] [place] [address] Dr. Zuly Medina EO # 0.3 103/ul Normal 0.0-0.7 [facility] Comment on above: Performed By: #### Oliverio SIMS [place] #### [facility] [address] [place] [address] Dr. Zuly Medina Eosinophils/100 WBC (Bld) 4.1 % Normal 0.9-7.0 [facility] Comment on above: Performed By: #### Oliverio SIMS [place] #### [facility] [address] [place] [address] Dr. Zuly Medina Erythrocyte distribution width (RBC) [Ratio] 14.1 % Normal 11.0-15.0 [facility] Comment on above: Performed By: #### CHIDI MCDANIEL #### [facility] [address] [place] [address] Dr. Zuly Medina Hematocrit (Bld) [Volume fraction] 36.0 % Normal 36.0-48.0 [facility] Comment on above: Performed By: #### CHIDI MCDANIEL #### [facility] [address] [place] [address] Dr. Zuly Medina Hemoglobin (Bld) [Mass/Vol] 11.6 g/dL Critically low 12.0-16.0 [facility] Comment on above: Performed By: #### CHIDI MCDANIEL #### [facility] [address] [place] [address] Dr. Zuly Medina IG # 0.01 10e3/ul Normal 0.00-0.03 [facility] Comment on above: Performed By: #### CHIDI MCDANIEL #### [facility] [address] [place] [address] Dr. Zuly Medina IG % 0.1 % Normal 0.0-0.5 [facility] Comment on above: Performed By: #### CHIDI MCDANIEL #### [facility] [address] [place] [address] Dr. Zuly Medina LYMPH # 1.3 103/ul Normal 1.2-3.8 [facility] Comment on above: Performed By: #### CHIDI MCDANIEL #### [facility] [address] [place] [address] Dr. Zuly Medina Lymphocytes/100 WBC (Bld) 19.3 % Critically low 20.5-60.0 [facility] Comment on above: Performed By: #### CHIDI MCDANIEL #### [facility] [address] [place] [address] Dr. Zuly Medina MANUAL DIFF REQ NO Normal [facility] Comment on above: Performed By: #### CHIDI MCDANIEL #### [facility] [address] [place] [address] Dr. Zuyl Medina MCH (RBC) [Entitic mass] 31.4 pg Normal 26.7-34.0 [facility] Comment on above: Performed By: #### CHIDI MCDANIEL #### [facility] [address] [place] [address] Dr. Zuly Medina MCHC (RBC) [Mass/Vol] 32.2 g/dL Normal 29.9-35.2 [facility] Comment on above: Performed By: #### CHIDI MCDANIEL #### [facility] [address] [place] [address] Dr. Zuly Medina MCV (RBC) [Entitic vol] 97.6 fL Normal 81.0-99.0 [facility] Comment on above: Performed By: #### CHIDI MCDANIEL #### [facility] [address] [place] [address] Dr. Zuly Medina MONO # 0.8 103/ul Normal 0.3-0.8 [facility] Comment on above: Performed By: #### CHIDI MCDANIEL #### [facility] [address] [place] [address] Dr. Zuly Medina Monocytes/100 WBC (Bld) 11.8 % Normal 1.7-12.0 [facility] Comment on above: Performed By: #### CHIDI MCDANIEL #### [facility] [address] [place] [address] Dr. Zuly Medina NEUT # 4.4 103/ul Normal 1.4-6.5 [facility] Comment on above: Performed By: #### Oliverio SIMS [place] #### [facility] [address] [place] [address] Dr. Zuly Medina Neutrophils/100 WBC (Bld) 64.3 % Normal 43.0-75.0 [facility] Comment on above: Performed By: #### CHIDI MCDANIEL #### [facility] [address] [place] [address] Dr. Zuly Medina Platelet mean volume (Bld) [Entitic vol] 10.1 fL Normal 9.5-13.5 [facility] Comment on above: Performed By: #### C CHIDI SIMS #### [facility] [address] [address] [address] Zuly Medina PLT 311 103/ul Normal 150-450 [facility] Comment on above: Performed By: #### C BETHANY [place] #### [facility] [address] [address] [address] Zuly Medina RBC 3.69 106/ul Critically low 4.20-5.40 [facility] Comment on above: Performed By: #### C BETHANY [place] #### [facility] [address] [address] [address] Zuly Medina WBC 6.9 103/ul Normal 4.0-11.0 [facility] Comment on above: Performed By: #### CHIDI MCDANIEL #### [facility] [address] [place] [address] Dr. Zuly Medina GLYCOHEMOGLOBIN A1Con 2021 ADA RECOMMENDATION SEE BELOW Normal [facility] Comment on above: Result Comment: ADA RECOMMENDED LIMIT 4.0 - 6.0 ADA THERAPEUTIC TARGET < 7.0 ACTION SUGGESTED > 7.0 Performed By: #### A 1C #### [facility] [address] [place] [address] Dr. Zuly Medina Glucose [Mass/Vol] 103 mg/dL Normal [facility] Comment on above: Performed By: #### A 1C #### [facility] [address] [address] [address] Zuly Medina HbA1c (Bld) [Mass fraction] 5.2 % Normal 4.5-6.2 [facility] Comment on above: Performed By: #### A 1C #### [facility] [address] [address] [address] Zuly Medina IRONon 11-14-2021 Iron [Mass/Vol] 60.0 ug/dL Normal 50.0-170.0 [facility] Comment on above: Performed By: #### C VDTBH #### [facility] [address] [address] [address] Zuly Medina LIPID PROFILEon 11-14-2021 CHOL-HDL RATIO NORM SEE BELOW Normal [facility] Comment on above: Result Comment: 3.3 - 4.4 LOW RISK 4.4 - 7.1 AVERAGE RISK 7.1 - 11.0 MODERATE RISK >11.0 HIGH RISK Performed By: #### Oliverio SIMS, [place] #### [facility] [address] [address] [address] Zuly Medina Cholesterol [Mass/Vol] 145 mg/dL Normal <=200 [facility] Comment on above: Performed By: #### Oliverio SIMS, [place] #### [facility] [address] [address] [address] Zuly Medina Cholesterol in HDL [Mass/Vol] 65 mg/dL Critically high 40-60 [facility] Comment on above: Performed By: #### Oliverio SIMS, [place] #### [facility] [address] [address] [address] Zuly Medina Cholesterol in LDL [Mass/Vol] 72.2 mg/dL Normal [facility] Comment on above: Performed By: #### Oliverio SIMS, [place] #### [facility] [address] [address] [address] Zuly Medina Cholesterol.total/Ch olesterol in HDL [Mass ratio] 2.2 {ratio} Normal [facility] Comment on above: Performed By: #### Oliverio SIMS, [place] #### [facility] [address] [address] [address] Zuly Medina HDL NORMAL > or = 60 mg/dl - LO W CARDIOVASCULAR RISK <40 mg/dl - HIGH CARDIOVASCULAR RISK Normal [facility] Comment on above: Performed By: #### Oliverio SIMS, [place] #### [facility] [address] [address] [address] Zuly Medina LDL CALC NORMAL SEE BELOW Normal [facility] Comment on above: Result Comment: <100 mg/dl OPTIMAL 100 - 129 mg/dl NEAR OR ABOVE OPTIMAL 130 - 159 mg/dl BORDERLINE HIGH 160 - 189 mg/dl HIGH >190 mg/dl VERY HIGH Performed By: #### Oliverio SIMS, [place] #### [facility] [address] [address] [address] Zuly Medina Triglyceride [Mass/Vol] 39 mg/dL Normal <=150 [facility] Comment on above: Performed By: #### CHIDI MCDANIEL #### [facility] [address] [place] [address] Dr. Zuly Medina VLDL CALC 7.8 mg/dL Normal [facility] Comment on above: Performed By: #### CHIDI MCDANIEL #### [facility] [address] [place] [address] Dr. Zuly Medina PROF 14(COMP METB)on 022 Albumin [Mass/Vol] 3.8 g/dL Normal 3.4-5.0 [facility] Comment on above: Performed By: #### CHIDI MCDANIEL #### [facility] [address] [place] [address] Dr. Zuly Medina Albumin/Globulin [Mass ratio] 1.4 {ratio} Normal [facility] Comment on above: Performed By: #### CHIDI MCDANIEL #### [facility] [address] [place] [address] Dr. Zuly Medina ALP [Catalytic activity/Vol] 41 U/L Critically low 46-116 [facility] Comment on above: Performed By: #### CHIDI MCDANIEL #### [facility] [address] [place] [address] Dr. Zuly Medina ALT [Catalytic activity/Vol] 20 U/L Normal 14-59 [facility] Comment on above: Performed By: #### CHIDI MCDANIEL #### [facility] [address] [place] [address] Dr. Zuly Medina Anion gap [Moles/Vol] 8.2 mmol/L Normal [facility] Comment on above: Performed By: #### CHIDI MCDANIEL #### [facility] [address] [place] [address] Dr. Zuly Medina AST [Catalytic activity/Vol] 25 U/L Normal 15-37 [facility] Comment on above: Performed By: #### CHIDI MCDANIEL #### [facility] [address] [place] [address] Dr. Zuly Medina Bilirubin [Mass/Vol] 0.4 mg/dL Normal 0.2-1.0 [facility] Comment on above: Performed By: #### CHIDI MCDANIEL #### [facility] [address] [place] [address] Dr. Zuly Medina Calcium [Mass/Vol] 10.1 mg/dL Normal 8.5-10.1 [facility] Comment on above: Performed By: #### Oliverio SIMS, [place] #### [facility] [address] [place] [address] Dr. Zuly Medina Chloride [Moles/Vol] 104 mmol/L Normal 98-107 [facility] Comment on above: Performed By: #### Oliverio SIMS [place] #### [facility] [address] [place] [address] Dr. Zuly Medina CO2 [Moles/Vol] 31.6 mmol/L Normal 21.0-32.0 [facility] Comment on above: Performed By: #### Oliverio SIMS [place] #### [facility] [address] [place] [address] Dr. Zuly Medina Creatinine [Mass/Vol] 1.44 mg/dL Critically high 0.55-1.02 [facility] Comment on above: Performed By: #### Oliverio SIMS [place] #### [facility] [address] [place] [address] Dr. Zuly Medina EGFR-AF PRYDEINIG 43 mL/min/1.73m2 Critically low >=60 [facility] Comment on above: Performed By: #### Oliverio SIMS, [place] #### [facility] [address] [place] [address] Dr. Zuly Medina EGFR-NON AF PRYDEINIG 36 mL/min/1.73m2 Critically low >=60 [facility] Comment on above: Performed By: #### Oliverio SIMS, [place] #### [facility] [address] [place] [address] Dr. Zuly Medina Globulin (S) [Mass/Vol] 2.8 g/dL Normal [facility] Comment on above: Performed By: #### C BETH[place], [place] #### [facility] [address] [address] [address] Zuly Medina Glucose [Mass/Vol] 100 mg/dL Normal 74-106 [facility] Comment on above: Performed By: #### C BETH[place], [place] #### [facility] [address] [address] [address] Zuly Medina Potassium [Moles/Vol] 3.8 mmol/L Normal 3.5-5.1 [facility] Comment on above: Performed By: #### Oliverio SIMS, [place] #### [facility] [address] [address] [address] Zuly Medina Protein [Mass/Vol] 6.6 g/dL Normal 6.4-8.2 [facility] Comment on above: Performed By: #### Oliverio SIMS [place] #### [facility] [address] [address] [address] Zuly Medina Sodium [Moles/Vol] 140 mmol/L Normal 136-145 [facility] Comment on above: Performed By: #### Oliverio SIMS [place] #### [facility] [address] [address] [address] Zuly Medina Urea nitrogen [Mass/Vol] 28.0 mg/dL Critically high 7.0-18.0 [facility] Comment on above: Performed By: #### lOiverio SIMS [place] #### [facility] [address] [address] [address] Zuly Medina Urea nitrogen/Creatinine [Mass ratio] 19.4 mg/mg Normal [facility] Comment on above: Performed By: #### Oliverio SMIS, [place] #### [facility] [address] [address] [address] Zuly Medina TSHon 11-14-2021 TSH 1.676 uIU/mL Normal 0.358-3.740 [facility] Comment on above: Performed By: #### Oliverio SIMS, [place] #### [facility] [address] [address] [address] Zuly Medina [facility]05 SARS-CoV-2 (COVID-19) RNA MARY+probe Ql (Unsp spec) Not detected Normal NOT DETECTED [facility] Comment on above: Result Comment: When diagnostic testing is negative, the possibility of a false negative should be considered in the context of a patient's recent exposures and the presence of clinical signs and symptoms consistent with SARS-CoV-2. This test is not yet approved or cleared by the [place] FDA. When there are no FDA-approved or cleared tests available, and other criteria are met, FDA can make tests available under an emergency access mechanism called an Emergency Use Authorization (EUA). The EUA for this test is supported by the Geophysical Party Chief of Health and Human Service's declaration that circumstances exist to justify the emergency use of in vitro diagnostics for the detection and/or diagnosis of the virus that causes COVID-19. This EUA will remain in effect for the duration of the COVID-19 declaration justifying emergency of IVDs, unless it is terminated or revoked by the FDA (after which the test may no longer be used). Performed By: #### C VDTB #### [facility] [address] [place] [address] Dr. Zuly Medina CREATININEon 09-18-2021 Creatinine [Mass/Vol] 1.33 mg/dL Critically high 0.55-1.02 [facility] Comment on above: Performed By: #### C CHIDI SIMS #### [facility] [address] [place] [address] Dr. Zuly Medina EGFR-AF PRYDEINIG 48 mL/min/1.73m2 Critically low >=60 [facility] Comment on above: Performed By: #### CHIDI MCDANIEL #### [facility] [address] [place] [address] Dr. Zuly Medina EGFR-NON AF PRYDEINIG 39 mL/min/1.73m2 Critically low >=60 [facility] Comment on above: Performed By: #### CHIDI MCDANIEL #### [facility] [address] [place] [address] Dr. Zuly Medina MRI BRAIN WO W CONon 022 MRI BRAIN WO W CON EXAMINATION: MRI BRA IN WO W CON HISTORY: Migraine without aura, not refractory ; chronic headaches behind right eye COMPARISON: No relevant comparison available. TECHNIQUE: A variety of imaging planes and parameters were utilized for visualization of suspected pathology. Images were performed without and with ml Dotarem contrast. FINDINGS: CEREBRUM: A few small T2 hyperintensities scattered within the deep white matter, nonspecific but most suggestive of chronic small vessel ischemic changes. No edema, hemorrhage, mass, acute infarction, or inappropriate atrophy. CEREBELLUM: No edema, hemorrhage, mass, acute infarction, or inappropriate atrophy. BRAINSTEM: No edema, hemorrhage, mass, acute infarction, or inappropriate atrophy. CSF SPACES: Ventricles, cisterns, and sulci are appropriate for age. No hydrocephalus, subarachnoid hemorrhage, or mass. SKULL: No mass or other significant visible lesion. SINUSES: Limited views demonstrate no significant mucosal thickening or fluid. ORBITS: Limited views are unremarkable. OTHER: No abnormal meningeal or parenchymal enhancement. IMPRESSION: 1. Mild age consistent atrophy and chronic small vessel ischemic changes. 2. No abnormal or suspicious findings to account for patient's symptoms. Electronically authenticated by: WEI GARCIA Date: 2021-09-18 16:23 Normal [facility] Covid-19 PCR ([facility])on 08-05 SARS-CoV-2 (COVID-19) RNA MARY+probe Ql (Unsp spec) Not detected Normal NOT DETECTED [facility] Comment on above: Result Comment: This test is not yet approved or cleared by the [place] FDA. When there are no FDA-approved or cleared tests available, and other criteria are met, FDA can make tests available under an emergency access mechanism called an Emergency Use Authorization (EUA). The EUA for this test is supported by the Geophysical Party Chief of Health and Human Service's (HHS's) declaration that circumstances exist to justify the emergency use of in vitro diagnostics for the detection and/or diagnosis of the virus that causes COVID-19. This EUA will remain in effect (meaning this test can be used) for the duration of the COVID-19 declaration justifying emergency of IVDs, unless it is terminated or revoked by FDA (after which the test may no longer be used). When diagnostic testing is negative, the possibility of a false negative should be considered in the context of a patient's recent exposures and the presence of clinical signs and symptoms consistent with SARS-CoV-2. Performed By: #### C VDTBH #### [facility] [address] [place] [id number] [address] Zuly Medina SYMPTOMATIC COVID-19 ANTIGEN on 08-23-2021 EUA Statement SEE BELOW Normal [facility] Comment on above: Result Comment: This test has not been FDA cleared or approved, but has been authorized by the FDA under an Emergency Use Authorization (EUA) for use by authorized laboratories certified under CLIA that meet the requirements to perform moderate or high complexity testing. This test has been authorized only for the detection of proteins from SARS-CoV-2, not for any other viruses or pathogens. The emergency use of this test is authorized for the duration of the declaration that circumstances exist justifying the authorization of emergency use of in vitro diagnostic tests for detection and/or diagnosis of Covid-19 under section 564(b)(1) of the Act, 21 U.S.C. 360bbb-3(b)(1), unless the declaration is terminated or authorization is revoked sooner. Performed By: #### C VDTBH #### [facility] [address] [place] [id number] Zuly Medina SARS-CoV-2 (COVID-19) RNA MARY+probe Ql (Unsp spec) Negative Normal NEGATIVE [facility] Comment on above: Performed By: #### C VDTBH #### [facility] [address] [place] [address] [address] [address] Zuly Medina Q - Diptheria/Tetanus Abon 0 08-09-2021 DIPHTHERIA ANTITOXOID 0.25 IU/mL Normal [facility] [employer] Comment on above: Order Comment: [facility] performed at: [facility], [facility], [address], [place], [place], , Computer Tester: Sahil Dyson M.D.,PhD [facility] Collection Date/Time: [facility] Results Received Date/Time: [facility] Reported Date/Time: Result Comment: Refe rence Range: 0.10 IU/mL or greater Interpretive Criteria: <0.10 IU/mL Nonprotective Antibody Level > Or = 0.10 IU/mL Protective Antibody Level Antibody levels >= 0.10 IU/mL are considered protective. After a primary series of three properly spaced diphtheria toxoid doses in adults or four doses in infants, a protective level of antitoxin (defined as > or = 0.10 IU of antitoxin/mL) is reached in more than 95% of immunized persons. This test was developed and its analytical performance characteristics have been determined by [facility] [place], [place]. It has not been cleared or approved by the U.S. Food and Drug Administration. This assay has been validated pursuant to the CLIA regulations and is used for clinical purposes. Performed By: #### 2 [id number], [id number], [id number] [id number], [id number], [id number] #### [facility] [address] [place] [address] TETANUS ANTITOXOID 4.67 IU/mL Normal [facility] [place] [employer] Comment on above: Order Comment: [facility] performed at: [facility], [facility], [address], [place], [place], , Computer Tester: Sahil Dyson M.D.,PhD [facility] Collection Date/Time: [facility] Results Received Date/Time: [facility] Reported Date/Time: Result Comment: Refe rence range (Healthy Immunized): 0.10 IU/mL or greater Antibody levels of >= 0.10 IU/mL are considered protective. However, tetanus can still occur in some individuals with such antibody levels. These results should not be used to determine the necessity to administer antitoxin when clinically indicated. This test was developed and its analytical performance characteristics have been determined by [facility] [place]. It has not been cleared or approved by the U.S. Food and Drug Administration. This assay has been validated pursuant to the CLIA regulations and is used for clinical purposes. Performed By: #### 2 4729W, 89613R, 53108, 60137X, 56344X, 07202H #### [facility] Default [address] [place] [address] Q - IGA,SERUMon 08-09-2021 IMMUNOGLOBULIN A 125 mg/dL Normal 70-320 [facility] [employer] Comment on above: Order Comment: [facility] performed at: [employer], [facility], [address] , [address] [place] [address], [address] [place] [address], Computer Tester: Thony Haley MD [facility] Collection Date/Time: [facility] Results Received Date/Time: [facility] Reported Date/Time: Performed By: #### 2 4729W, 94484X, 82624, 22259N, 97748Q, 07808G #### [facility] Default [address] [place] [address] Q - IGE,SERUMon 08-09-2021 IMMUNOGLOBULIN E 44 kU/L Normal [facility] [employer] Comment on above: Order Comment: [facility] performed at: [employer], [facility], [address] , [address] [place] [address], [address] [place] [address], Computer Tester: Thony Haley MD [facility] Date/Time: [facility] Results Received Date/Time: [facility] Reported Date/Time: Performed By: #### 2 4729W, 34706J, 87911, 87304S, 97931U, 33146Y #### [facility] [address] [place] [address] Q - IGG,SERUMon 08-09-2021 IMMUNOGLOBULIN G 895 mg/dL Normal 600-1540 [facility] [employer] Comment on above: Order Comment: [facility] performed at: [employer], [facility], [address] , [address] [place] [address], [address] [place] [address], Computer Tester: Thony Haley MD [facility] Date/Time: [facility] Results Received Date/Time: [facility] Reported Date/Time: Performed By: #### 2 4729W, 77900D, 84485, 50695Y, 11625V, 34531U #### [facility] [address] [place] [address] Q - IGM,SERUMon 08-09-2021 IMMUNOGLOBULIN M 158 mg/dL Normal 50-300 [facility] Comment on above: Order Comment: [facility] performed at: [employer], [facility], [address], [address] [facility], [place], [address], Computer Tester: Thony Haley MD [facility] Collection Date/Time: [facility] Results Received Date/Time: [facility] Reported Date/Time: Performed By: #### 2 4729W, 16840W, 05289, 33535V, 90137G, 05010E #### [facility] [address] [place] [address] Q - Strep pneumo Ab 23 serot ypeson 08-09-2021 SEROTYPE 1 (1) 9.[address] [facility] Comment on above: Order Comment: [facility] performed at: [employer], [facility] [facility],, [address] [place] [address], , Computer Tester: Osiris Galdamez MD,PhD,BHANU [facility] Collection Date/Time: [facility] Results Received Date/Time: [facility] Reported Date/Time: Performed By: #### 2 4729W, 13087B, 67182, 77655E, 39572M, 36606F #### [facility] [address] [place] [address] SEROTYPE 12 (12F) 1.0 Normal [facility] Comment on above: Order Comment: [facility] performed at: [email or web address],, [address] [place], [place], , Computer Tester: Osiris Galdamez MD,PhD,BHANU [facility] Collection Date/Time: [facility] Results Received Date/Time: [facility] Reported Date/Time: Performed By: #### 2 4729W, 72740N, 36408, 43639Q, 92940F, 11192U #### [facility] [address] [place] [address] SEROTYPE 14 (14) 3.3 Normal [facility] Comment on above: Order Comment: [facility] performed at: [employer], [facility],, [address] [place], [place] [address], , Computer Tester: Osiris Galdamez MD,PhD,BHANU [facility] Collection Date/Time: [facility] Results Received Date/Time: [facility] Reported Date/Time: Performed By: #### 2 4729W, 18617X, 80253, 26684V, 05906U, 00106X #### [facility] [address] [place] [address] SEROTYPE 17 (17F) 1.2 Normal [facility] Comment on above: Order Comment: [facility] performed at: [employer], [facility] [facility],, [address] [place] [address], , Computer Tester: Osiris Galdamez MD,PhD,BHANU [facility] Collection Date/Time: [facility] Results Received Date/Time: [facility] Reported Date/Time: Performed By: #### 2 4729W, 17597E, 23479, 62455J, 50317F, 02447L #### [facility] [address] [place] [address] SEROTYPE 19 (19F) 2.8 [facility] Comment on above: Order Comment: [facility] performed at: [facility], [facility] [facility],, [address] [place], [place], , Computer Tester: Osiris Galdamez MD,PhD,BHANU [facility] Collection Date/Time: [facility] Results Received Date/Time: [facility] Reported Date/Time: Performed By: #### 2 4729W, 97219M, 41556, 48507H, 20585G, 74360B #### [facility] [address] [place] [address] SEROTYPE 2 (2) 7.2 Normal [facility] [employer] Comment on above: Order Comment: [facility] performed at: [employer], [facility] [facility],, [address] [place], [place], , Computer Tester: Osiris Galdamez MD,PhD,BHANU [facility] Collection Date/Time: [facility] Results Received Date/Time: [facility] Reported Date/Time: Performed By: #### 2 4729W, 52946X, 57387, 45388O, 16856K, 51395I #### [facility] [address] [place] [address] SEROTYPE 20 (20) 3.4 Normal [facility] [employer] Comment on above: Order Comment: [facility] performed at: [employer], [facility],, [address] [place], [place] [address], , Computer Tester: Osiris Galdamez MD,PhD,BHANU [facility] Date/Time: [facility] Results Received Date/Time: [facility] Reported Date/Time: Performed By: #### 2 4729W, 21952T, 58529, 34926R, 99414S, 22636M #### [facility] [address] [place] [address] SEROTYPE 22 (22F) 5.9 Normal [facility] Comment on above: Order Comment: [facility] performed at: [employer], [facility] [facility],, [address], [place], [place], , Computer Tester: Osiris Galdamez MD,PhD,BHANU [facility] Collection Date/Time: [facility] Results Received Date/Time: [facility] Reported Date/Time: Performed By: #### 2 4729W, 80176B, 03295, 06682D, 50869K, 73675R #### [facility] [address] [place] [address] SEROTYPE 23 (23F) 5.2 Normal [facility] Comment on above: Order Comment: [facility] performed at: [facility], [facility] [facility],, [address] [place] [address], , Computer Tester: Osiris Galdamez MD,PhD,BHANU [facility] Collection Date/Time: [facility] Results Received Date/Time: [facility] Reported Date/Time: Performed By: #### 2 4729W, 24406L, 06725, 98919Q, 50462Z, 19582B #### [facility] [address] [place] [address] SEROTYPE 26 (6B) 18.8 [facility] Comment on above: Order Comment: [facility] performed at: [employer], [facility] [facility],, [address] [place], [place] [address], [place], , Computer Tester: Osiris Galdamez MD,PhD,BHANU [facility] Collection Date/Time: [facility] Results Received Date/Time: [facility] Reported Date/Time: Performed By: #### 2 4729W, 92947C, 52579, 37229G, 02826L, 24271R #### [facility] [address] [place] [address] SEROTYPE 3 (3) 1.3 Normal [facility] [employer] Comment on above: Order Comment: [facility] performed at: [employer], [facility] [facility],, [address] [place] [address], , Computer Tester: Osiris Galdamez MD,PhD,BHANU [facility] Date/Time: [facility] Results Received Date/Time: [facility] Reported Date/Time: Performed By: #### 2 4729W, 03220H, 15670, 52773H, 46623G, 07819I #### [facility] Default [address] [place] [address] SEROTYPE 34 (10A) 0.9 Normal [facility] Comment on above: Order Comment: [facility] performed at: [facility], [facility],, [address] [place] [address], , Computer Tester: Osiris Galdamez MD,PhD,BHANU [facility] Collection Date/Time: [facility] Results Received Date/Time: [facility] Reported Date/Time: Performed By: #### 2 4729W, 88655Q, 01578, 11737D, 60972D, 32110V #### [facility] [address] [place] [address] SEROTYPE 4 (4) <0.3 [facility] Specialist Comment on above: Order Comment: [facility] performed at: [employer], [facility],, [address] [place] [address], , Computer Tester: Osiris Galdamez MD,PhD,BHANU [facility] Collection Date/Time: [facility] Results Received Date/Time: [facility] Reported Date/Time: Performed By: #### 2 4729W, 09660H, 85668, 61814Z, 58908D, 66238G #### [facility] [address] [place] [address] SEROTYPE 43 (11A) 1.1 Normal [facility] [employer] Comment on above: Order Comment: [facility] performed at: [facility], [facility],, [address] [place] [address], , Computer Tester: Osiris Galdamez MD,PhD,BHANU [facility] Date/Time: [facility] Results Received Date/Time: [facility] Reported Date/Time: Performed By: #### 2 4729W, 28643Y, 27917, 78917J, 21348S, 05944S #### [facility] Default [address] [place] [address] SEROTYPE 5 (5) 2.3 Normal [facility] Specialist Comment on above: Order Comment: [facility] performed at: [employer], [facility] [facility],, [address] [place] [address], , Computer Tester: Osiris Galdamez MD,PhD,BHANU [facility] Date/Time: [facility] Results Received Date/Time: [facility] Reported Date/Time: Performed By: #### 2 4729W, 66755A, 20093, 89553X, 51311F, 92536I #### [facility] Default [address] [place] [address] SEROTYPE 51 (7F) 8.4 Normal [facility] Specialist Comment on above: Order Comment: [facility] performed at: [facility], [facility],, [address] [place] [address], , Computer Tester: Osiris Galdamez MD,PhD,BHANU [facility] Collection Date/Time: [facility] Results Received Date/Time: [facility] Reported Date/Time: Performed By: #### 2 4729W, 88266H, 23613, 33589A, 29214N, 91233W #### [facility] Default [address] [place] [address] SEROTYPE 54 (15B) 2.3 [facility] Comment on above: Order Comment: [facility] performed at: [employer], [facility] [facility],, [address] [place] [address], , Computer Tester: Osiris Galdamez MD,PhD,BHANU [facility] Collection Date/Time: [facility] Results Received Date/Time: [facility] Reported Date/Time: Performed By: #### 2 4729W, 87472I, 19024, 63950C, 51133N, 49561F #### [facility] Default [address] [place] [address] SEROTYPE 56 (18C) 18.7 [facility] Comment on above: Order Comment: [facility] performed at: [facility], [facility],, [address] [place] [address], , Computer Tester: Osiris Galdamez MD,PhD,BHANU [facility] Collection Date/Time: [facility] Results Received Date/Time: [facility] Reported Date/Time: Performed By: #### 2 4729W, 40622P, 87736, 90338H, 33897C, 91914Z #### [facility] Default [address] [place] [address] SEROTYPE 57 (19A) 15.6 [facility] Comment on above: Order Comment: [facility] performed at: [employer], [facility],, [address] [place] [address], , Computer Tester: Osiris Galdamez MD,PhD,BHANU [facility] Date/Time: [facility] Results Received Date/Time: [facility] Reported Date/Time: Performed By: #### 2 4729W, 12595C, 30630, 63936F, 61127K, 71679I #### [facility] Default [address] [place] [address] SEROTYPE 68 (9V) 2.1 Normal [facility] Comment on above: Order Comment: [facility] performed at: [employer], [facility] [facility],, [address] [place], [place], , Computer Tester: Osiris Galdamez MD,PhD,BHANU [facility] Collection Date/Time: [facility] Results Received Date/Time: [facility] Reported Date/Time: Performed By: #### 2 4729W, 40655Q, 80322, 83806S, 65551A, 42941K #### [facility] Default [address] [place] [address] SEROTYPE 70 (33F) 28.9 Normal [facility] Comment on above: Order Comment: [facility] performed at: [employer], [facility] [facility],, [address] [place], [place], , Computer Tester: Osiris Galdamez MD,PhD,BHANU [facility] Collection Date/Time: [facility] Results Received Date/Time: [facility] Reported Date/Time: Result Comment: S[employer] logic correlates of protection against pneumococcal disease have not been rigorously established for all patient populations. Published data and expert consensus (including WHO) suggest protection from invasive disease usually occurs at levels >or =0.3-0.50 mcg/mL for healthy children receiving pneumococcal conjugate vaccines. Higher titers may be necessary to protect from non-invasive infection (e.g., pneumonia, otitis, sinusitis). Expert opinion suggests that a cut-off of >= 1.3 mcg/mL may be a more relevant value to assess antibody responses after pneumococcal polysaccharide vaccines or for immunocompromised patients. In addition to antibody quantity, protection also depends on antibody avidity and opsonophagocytic activity. Some experts consider that post-vaccination (4-6 weeks) IgG seroconversion and/or 2- to 4-fold rise in IgG titers for >50% to 70% of vaccine serotypes demonstrates a normal post-vaccine serologic response. Persons with high initial serotype-specific titers may have less robust responses. [facility] uses a multi-analyte immunodetection (MAID) method. The method employs the B[employer]el flow cytometric system which measures multiple analytes simultaneously. The FDA standard reference serum 89-S is used as the calibration standard. Results are reported in mcg/mL. This assay detects all of the 23 of the serotypes in the 23-valent polysaccharide vaccine and 12 of the 13 serotypes in the 13-valent conjugate vaccine. This test was developed and its analytical performance characteristics have been determined by [employer]. It has not been cleared or approved by FDA. This assay has been validated pursuant to the CLIA regulations and used for clinical purposes. For additional information, please refer to http://education.Snipd/faq/ASZ165 (This link is being provided for informational/ educational purposes only.) Performed By: #### 2 4729W, 21698Z, 10771, 53034R, 04618Q, 52056I #### [facility] Default [address] [place] [address] SEROTYPE 8 (8) 14.6 Normal [facility] [employer] Comment on above: Order Comment: [facility] performed at: [email or web address] [facility],, [address] [place] [address], , Computer Tester: Osiris Galdamez MD,PhD,BHANU [facility] Collection Date/Time: [facility] Results Received Date/Time: [facility] Reported Date/Time: Performed By: #### 2 4729W, 87943J, 94062, 24101M, 26928X, 82567R #### [facility] Default [address] [place] [address] SEROTYPE 9 (9N) 1.0 Normal [facility] [employer] Comment on above: Order Comment: [facility] performed at: [email or web address] [facility],, [address] [place] [address], , Computer Tester: Osiris Galdamez MD,PhD,BHANU [facility] Collection Date/Time: [facility] Results Received Date/Time: [facility] Reported Date/Time: Performed By: #### 2 4729W, 93192P, 26678, 36579E, 95561U, 62101P #### [facility] Default [address] [place] [address] CT SINUSES WO CONon 08-06-19 CT SINUSES WO CON EXAMINATION: CT SINUSES WO CON HISTORY: Acute sinusitis ; right facial pain COMPARISON: No relevant comparison available. TECHNIQUE: Axial and Coronal CT images were created without IV contrast. Dose reduction techniques were achieved by using automated exposure control and/or adjustment of mA and/or kV according to patient size and/or use of iterative reconstruction technique. FINDINGS: MAXILLARY SINUSES: No significant mucosal thickening or fluid. Infundibula are patent. No significant anomalous inferior orbital ethmoid (Solis) air cells. ETHMOID SINUSES: No significant mucosal thickening or fluid. Fovea ethmoidali and lamina papyracea are symmetric and intact. SPHENOID SINUSES: No significant mucosal thickening or fluid. Sphenoethmoidal recesses are patent. No bony dehiscence. FRONTAL SINUSES: No significant mucosal thickening or fluid. Frontal recesses are patent. NASAL FOSSA: No deviation of the nasal septum. No serjio bullosa or paradoxical turbinates are identified. OTHER: Negative. Limited views of the skull base and orbits are unremarkable. IMPRESSION: 1. No CT evidence of acute or chronic sinusitis. Electronically authenticated by: WEI GARCIA Date: 2021-08-05 08:48 Normal [facility] MG MAMM DX 3D LT CADon 08-05 MG MAMM DX 3D LT CAD Patient: ADRIANNA BUITRAGO Exam Date: 08/05/2021 : 1950 Gender:F Ordering : DR JENNY NATARAJAN . Admission #: [id number] Family : Order #: [id number] CLICK HERE TO VIEW EXAM RADIOLOGY REPORT PROCEDURE: MAMMOGRAM DIAGNOSTIC 3D LEFT CAD, 08/05/2021, 07:50 ULTRASOUND BREAST LEFT LIMITED, 08/05/2021, 09:02 COMPARISON: US BREAST LEFT LIMITED, 02/04/2021. MG MAMM SCREEN NOEL W CAD, 01/20/2020. MG MAMM SCREEN NOEL W CAD, 01/18/2019. MG MAMM NOEL SCRN W CAD DIG, 11/09/2012. MG MAMM SCREEN 3D NOEL CAD, 01/21/2021. INDICATIONS: Mammography abnormal Calculator Name NCI Breast Cancer Risk Assessment Tool 5 Year Breast Cancer Risk 1.40% Lifetime Breast Cancer Risk 3.80% Personal Breast Cancer No Personal Ovarian Cancer No Treatments None Family Cancers Sister with ovarian cancer at age 53; Brother with pancreatic cancer at age 43; Uncle-maternal with bone cancer at age 60; Aunt-maternal with all over cancer at age 60; Uncle-maternal with lung cancer at age 60. LOCATION: [facility] BREAST COMPOSITION: Scattered areas fibroglandular density. FINDINGS: DIAGNOSTIC CATEGORY 2--BENIGN FINDING: LEFT BREAST: Asymmetric opacities within the upper-outer quadrant which looks similar to multiple prior studies on today's mammogram. Ultrasound evaluation again demonstrates an area suggestive of dense fibroglandular tissue within the upper-outer quadrant. Annual screening mammography is recommended. RECOMMENDATIONS: ROUTINE MAMMOGRAM AND CLINICAL EVALUATION IN 12 MONTHS. PLEASE NOTE: A NORMAL MAMMOGRAM DOES NOT EXCLUDE THE POSSIBILITY OF BREAST CANCER. A CLINICALLY SUSPICIOUS PALPABLE LUMP SHOULD BE BIOPSIED. Dictated by: Wei Garcia M.D. on 08/05/2021 at 09:23 Approved by: Wei Garcia M.D. on 08/05/2021 at 09:25 Normal [facility] US BREAST LEFT LIMITEDon US BREAST LEFT LIMITED Patient: KATHRYN ADRIANNA Ya Exam Date: 08/05/2021 : 1950 Gender:F Ordering : DR JENNY NATARAJAN . Admission #: [id number] Family : Order #: [id number] CLICK HERE TO VIEW EXAM RADIOLOGY REPORT PROCEDURE: MAMMOGRAM DIAGNOSTIC 3D LEFT CAD, 08/05/2021, 07:50 ULTRASOUND BREAST LEFT LIMITED, 08/05/2021, 09:02 COMPARISON: US BREAST LEFT LIMITED, 02/04/2021. MG MAMM SCREEN NOEL W CAD, 01/20/2020. MG MAMM SCREEN NOEL W CAD, 01/18/2019. MG MAMM NOEL SCRN W CAD DIG, 11/09/2012. MG MAMM SCREEN 3D NOEL CAD, 01/21/2021. INDICATIONS: Mammography abnormal Calculator Name NCI Breast Cancer Risk Assessment Tool 5 Year Breast Cancer Risk 1.40% Lifetime Breast Cancer Risk 3.80% Personal Breast Cancer No Personal Ovarian Cancer No Treatments None Family Cancers Sister with ovarian cancer at age 53; Brother with pancreatic cancer at age 43; Uncle-maternal with bone cancer at age 60; Aunt-maternal with all over cancer at age 60; Uncle-maternal with lung cancer at age 60. LOCATION: [facility] BREAST COMPOSITION: Scattered areas fibroglandular density. FINDINGS: DIAGNOSTIC CATEGORY 2--BENIGN FINDING: LEFT BREAST: Asymmetric opacities within the upper-outer quadrant which looks similar to multiple prior studies on today's mammogram. Ultrasound evaluation again demonstrates an area suggestive of dense fibroglandular tissue within the upper-outer quadrant. Annual screening mammography is recommended. RECOMMENDATIONS: ROUTINE MAMMOGRAM AND CLINICAL EVALUATION IN 12 MONTHS. PLEASE NOTE: A NORMAL MAMMOGRAM DOES NOT EXCLUDE THE POSSIBILITY OF BREAST CANCER. A CLINICALLY SUSPICIOUS PALPABLE LUMP SHOULD BE BIOPSIED. Dictated by: eWi Garcia M.D. on 08/05/2021 at 09:23 Approved by: Wei Garcia M.D. on 08/05/2021 at 09:25 Normal [facility] Encounters Encounter Date Encounter Type Care Provider Facility Start: 04-30-2023 End: 04-30-2023 ambulatory MAGNUS LACY Not Available Start: 04-10-2023 End: 04-10-2023 ambulatory MELO JENKINS [facility] Start: 11-25-2022 End: 11-25-2022 ambulatory TEGAN PAIZ [facility] Start: 07-02-2022 End: 07-02-[address] JENNY NATARAJAN . Facility:[facility] Start: 06-02-2022 End: 06-03-[address] JENNY NATARAJAN . Facility:[facility] Start: 05-30-2022 End: 05-31-[address] JENNY NATARAJAN . Facility:[facility] Start: 05-26-2022 End: 05-27-[address] JENNY NATARAJAN . Facility:[facility] Start: 05-23-2022 End: 05-24-[address] JENNY NATARAJAN . Facility:[facility] Start: 05-22-2022 End: 05-22-[address] JENNY NATARAJAN . Facility:[facility] Start: 05-14-2022 End: 05-15-[address] JENNY NATARAJAN . Facility:[facility] Start: 05-14-2022 End: 05-14-2022 ambulatory MELO [facility] Start: 01-22-2022 End: 01-23-[address] JENNY NATARAJAN . Facility:[facility] Start: 12-31-2021 End: 01-01-[address] JENNY NATARAJAN . Facility:[facility] Start: 12-25-2021 End: 12-25-[address] JENNY NATARAJAN . Facility:[facility] Start: 11-14-2021 End: 11-15-[address] JENNY NATARAJAN . Facility:[facility] Start: 11-01-2021 End: 11-01-[address] JENNY NATARAJAN . Facility:[facility] Start: 09-18-2021 End: 09-19-[address] JENNY NATARAJAN . Facility:[facility] Start: 08-23-2021 End: 08-23-[address] JENNY NATARAJAN . Facility:[facility] Start: 08-23-2021 End: 08-23-[address] JENNY NATARAJAN . Facility:[facility] Start: 08-05-2021 End: 08-06-[address] JENNY NATARAJAN . Facility:[facility] Payers Date Payer Category Payer Medicare [id number] 1960 Unknown [id number] 1950 Unknown [id number] 2.16.84 0.1.204385.3.579.2.593 1950 Unknown [id number] 2..84 0.1.073780.3.579.2.593 1950 Unknown [id number] 2..84 0.1.917232.3.579.2.593 1950 Unknown [id number] 2.16.84 0.1.356789.3.579.2.593 1950 Unknown [id number] 2..84 0.1.030419.3.579.2.593 1950 Unknown [id number] 2.16.84 0.1.497383.3.579.2.593 1950 Unknown [id number] 2.16.84 0.1.828751.3.579.2.593 1950 Unknown [id number] 2.16.84 0.1.244916.3.579.2.593 1950 Unknown [id number] 2.16.84 0.1.150209.3.579.2.593 1950 Unknown [id number] 2.16.84 0.1.338309.3.579.2.593 1950 Unknown [id number] 2.16.84 0.1.923644.3.579.2.593 1950 Unknown [id number] 2.16.84 0.1.181087.3.579.2.593 1950 Unknown [id number] 2.16.84 0.1.571637.3.579.2.593 1950 Unknown [id number] 2.16.84 0.1.763600.3.579.2.593 1950 Unknown [id number] 2.16.84 0.1.881476.3.579.2.593 1950 Unknown [id number] 2.16.84 0.1.122499.3.579.2.593 1950 Unknown [id number] 2.16.84 0.1.029364.3.579.2.1259 Progress note 04-10-2023 Note Date & Type Note Facility 04-10-2023 Note Cardiology Follow Up Progress Note Chief Complaint: follow up regarding valvular regurgitation HPI: Adrianna Buitrago is a 72 y.o. female with a past medical history including CKD stage 1, mild MR, and mild TR. She presents to cardiology clinic for routine follow-up. Patient adamantly denies any cardiac complaints or concerns. Patient denies any chest pain or shortness of breath. Patient denies any lower extremity edema, orthopnea, or proximal nocturnal dyspnea. No near-syncope or syncope. No dizziness or lightheadedness. She continues to walk several miles per day without any symptoms. Cardiology ROS: GENERAL: Denies fever, chills, night sweats, weight loss. HEENT: Denies changes in vision, photophobia, changes in hearing, epistaxis, oral bleeding. CARDIOVASCULAR: Endorses chest pain, shortness of breath. Denies exertional dyspnea, orthopnea/PND, lower extremity edema, palpitations, lightheadedness/dizziness. RESPIRATORY: Denies SOB, coughing, wheezing GI: Denies abdominal pain, nausea/vomiting, heartburn, melena/hematochezia. RENAL: Denies dysuria, hematuria, flank pain. MSK: Denies muscle weakness/pain, arthralgias/joint pain. NEUROLOGIC: Denies LOC, weakness, numbness, headaches. SKIN: Denies abnormal rashes or bleeding. PSYCH: Denies significant anxiety, depression, sleep disturbances. Medications Current Outpatient Medications on File Prior to Visit Medication Sig Dispense Refill aspirin 81 mg EC tablet 1 (one) time each day at the same time. azelastine (Astelin) 137 mcg (0.1 %) nasal spray Administer 2 sprays into each nostril in the morning and at bedtime. aoflylmdxi-trrwmsgq-mtevquvwyj (Breztri Aerosphere) 160-9-4.8 mcg/actuation HFA aerosol inhaler every 12 (twelve) hours. cloNIDine (Catapres) 0.1 mg tablet Take 0.1 mg by mouth in the morning and at bedtime. denosumab (Prolia) 60 mg/mL syringe 1 injection fenofibrate (Lofibra) 160 mg tablet Take 160 mg by mouth in the morning. furosemide (Lasix) 20 mg tablet Take 20 mg by mouth in the morning. lactulose 10 gram/15 mL solution levothyroxine (Synthroid, Levoxyl) 100 mcg tablet levothyroxine 100 mcg tablet liothyronine (Cytomel) 5 mcg tablet 1 (one) time each day at the same time. omeprazole (PriLOSEC) [address] capsule omeprazole 40 mg capsule,delayed release potassium chloride CR (Klor-Con) 10 mEq ER tablet Take 10 mEq by mouth in the morning, at noon, and at bedtime. pravastatin (Pravachol) 10 mg tablet Take 10 mg by mouth at bedtime. ubrogepant (Ubrelvy) 50 mg tablet 100 mg in the morning. No current facility-administered medications on file prior to visit. Allergies Amoxicillin and Morphine Physical Exam VITAL SIGNS: BP 113/69 (BP Location: Left arm, Patient Position: Sitting) Pulse 61 Ht 1.6 m (5' 3 ) Wt 57.2 kg (126 lb) SpO2 99% BMI 22.32 kg/m??? Constitutional: Well developed, Well nourished, No acute distress, Non-toxic appearance. HENT: Normocephalic, Atraumatic, Bilateral external ears have normal appearance, Bilateral TMs clear, Oropharynx moist, No oral or pharyngeal exudates, Nose appears normal, nares are patent. Eyes: PERRLA, EOMI, Conjunctiva normal, No discharge. Neck: Normal range of motion, No tenderness, Supple, No stridor. No cervical lymphadenopathy noted. Cardiovascular: Normal heart rate, Normal rhythm, No murmurs, No rubs, No gallops. Thorax & Lungs: Normal breath sounds, No respiratory distress, No wheezing, No chest tenderness to palpation. Abdomen: Bowel sounds normal, Soft, Nontender, No masses, No pulsatile masses. Skin: Warm, Dry, No erythema, No rash. Back: No tenderness, No CVA tenderness. Extremities: Intact distal pulses, No edema, No tenderness, No cyanosis, No clubbing. Musculoskeletal: Good range of motion in all major joints with 5/5 muscle strength in all muscle groups, No tenderness to palpation or major deformities noted. Neurologic: Alert & oriented x 3, Normal motor function in all major muscle groups, Normal sensory function to all major dermatomes, No focal deficits noted. Psychiatric: Affect normal, Judgment normal, Mood normal. Impression: -Tricuspid regurgitation, mild -Mitral regurgitation, trivial -Chest pain, atypical, negative perfusion scan -Family history of premature CAD -HLD: on pravastatin Plan: -Stress test without evidence of ischemia. Optimize medical management, aggressive risk factor modification. -Repeat echo to assess valvular disease -Continue statin for HLD -Optimize medical management -Aggressive risk factor modification -Plan of care discussed with patient. All questions were answered. Patient voices understanding and is agreeable with current plan. -Patient was educated on red flag symptoms. Strict return precautions were provided. Patient verbalizes understanding -Follow-up in cardiology clinic in 6-8 weeks, or sooner as needed Melo Jenkins MD Interventional Cardiology [facility] (more content not included)... [facility] Progress note 04-10-2023 Note Date & Type Note Facility 04-10-2023 Note Patient here for 6 m o follow up hyperlipidemia and valve regurgitation. She had routine labs in Nov 2022 after last apt. Doing very well, as she denies chest pain, palpitations, and lightheadedness. Her SOB is dependent upon the weather she says, not exertion. Review of Systems Respiratory: Positive for shortness of breath (depends on weather). Musculoskeletal: Positive for arthritis, back pain and joint pain. All other systems reviewed and are negative. [facility] Progress note 11-25-2022 Note Date & Type Note Facility 11-25-2022 Note Remains stable, ches t pain resolved and no acute concerns currently [facility] Progress note 11-25-2022 Note Date & Type Note Facility 11-25-2022 Note Current echo 05/2022- Mild MR and no concerning symptoms currently [facility] Progress note 11-25-2022 Note Date & Type Note Facility 11-25-2022 Note Current echo 05/2022- Mild MR and no concerning symptoms currently [facility] Progress note 11-25-2022 Note Date & Type Note Facility 11-25-2022 Note Continue pravastatin 10 mg daily and fenofibrate- pt states PCP orders her annual labs F/U with PCP [facility] Progress note 11-25-2022 Note Date & Type Note Facility 11-25-2022 Note [facility] PROGR ESS NOTE HPI: Adrianna Buitrago is a 72 y.o. female here for routine 6 month F/U for chest pain, HTN, HPL, review of echocardiogram and stress test from 05/2022 HPI Currently she denied chest pain, worsening shortness of breath, orthopnea, palpitations. Admits typical SOB with exertion r/t asthma. States she walks 2-2 1/2 miles/day every day without any limiting symptoms. Review of Systems Cardiovascular: Positive for dyspnea on exertion. Pt feeling well Visit Vitals BP 131/67 Pulse 53 Wt 54.9 kg (121 lb) BMI 21.43 kg/m??? BSA 1.56 m??? Allergies Allergen Reactions Amoxicillin Unknown Morphine Itching Medications: Current Outpatient Medications on File Prior to Visit Medication Sig Dispense Refill bepeuzpnut-jyyjtbpg-ygaenlydum (Breztri Aerosphere) 160-9-4.8 mcg/actuation HFA aerosol inhaler every 12 (twelve) hours. cloNIDine (Catapres) 0.1 mg tablet Take 0.1 mg by mouth in the morning and at bedtime. denosumab (Prolia) 60 mg/mL syringe 1 injection fenofibrate (Lofibra) 160 mg tablet Take 160 mg by mouth in the morning. furosemide (Lasix) 20 mg tablet Take 20 mg by mouth in the morning. levothyroxine (Synthroid, Levoxyl) 100 mcg tablet levothyroxine 100 mcg tablet omeprazole (PriLOSEC) [address] capsule omeprazole 40 mg capsule,delayed release potassium chloride CR (Klor-Con) 10 mEq ER tablet Take 10 mEq by mouth in the morning, at noon, and at bedtime. pravastatin (Pravachol) 10 mg tablet Take 10 mg by mouth at bedtime. ubrogepant (Ubrelvy) 50 mg tablet 100 mg in the morning. No current facility-administered medications on file prior to visit. Physical Exam: Constitutional: Appearance: Normal appearance. Without apparent distress HENT: Head: Normocephalic and atraumatic. Nose: Nose normal. Mouth/Throat: Mouth: Mucous membranes are moist. Eyes: Extraocular Movements: Extraocular movements intact. Conjunctiva/sclera: Conjunctivae normal. Neck: Vascular: No JVD. Cardiovascular: Rate and Rhythm: Normal rate and regular rhythm. Pulses: Dorsalis pedis pulses are 3 on the right side and 3on the left side. Posterior tibial pulses are 3 on the right side and 3 on the left side. Heart sounds: Normal heart sounds, S1 normal and S2 normal. Pulmonary: Effort: Pulmonary effort is normal. Breath sounds: Normal breath sounds. Abdominal: General: Bowel sounds are normal. Palpations: Abdomen is soft. Musculoskeletal: General: Normal range of motion. Cervical back: Normal range of motion. Right lower leg: No edema. Left lower leg: No edema. Skin: General: Skin is warm and dry. Capillary Refill: Capillary refill takes less than 2 seconds. Neurological: General: No focal deficit present. Mental Status: She is alert and oriented to person, place, and time. Psychiatric: Mood and Affect: Mood normal. Behavior: Behavior normal. Thought Content: Thought content normal. Judgment: Judgment normal. Labs: 11/14/21 CBC stable BUN 28, CR 1.44 (this is typical for her) K+ 3.8 Liver function stable Chol 145, Trig 39 HDL 65 LDL 72.2 A1C 5.2 Last lab values have been reviewed CV Testing: reviewed with pt and 05/26/22 Treadmill cardiolite stress test- no ischemia or EKG changes, Normal myocardial perfusion scan 05/14/2019 Treadmill cardiolite stress test- Assessment/Plan: Hyperlipidemia Continue pravastatin 10 mg daily and fenofibrate- pt states PCP orders her annual labs F/U with PCP Mitral valve regurgitation Current echo 05/2022- Mild MR and no concerning symptoms currently Tricuspid valve regurgitation Current echo 05/2022- Mild MR and no concerning symptoms currently Family history of premature coronary heart disease Remains stable, chest pain resolved and no acute concerns currently RTC 4-6 months [facility] Clinical Note 05-26-2022 Note Date & Type Note Facility 05-26-2022 Note CARDIAC STRESS TEST Requesting Physician: Procedure Date:05/26/2022 This is a treadmill stress test with myocardial perfusion imaging, performed at the [facility] on 05/26/2022. Informed consent was obtained. The patient was attached to electrocardiographic monitoring. An intravenous line was secured. Baseline vital signs and ECG were obtained. The patient exercised on the treadmill for 7 minutes and 30 seconds, reaching stage 3 of Ray protocol, with maximal METS of 10.1. Resting heart rate was 55 BPM, and maximal heart rate was 148 BPM, representing 98% of maximal age predicted heart rate. Resting blood pressure was 128/64 and maximal blood pressure was 168/80. The test was terminated due to fatigue. There were no symptoms of angina reported. Resting EKG showed sinus bradycardia at 57 BPM. ECG during treadmill exercise showed sinus tachycardia with no evidence of ischemic ST changes. Final ECG at the end of the recovery period showed sinus rhythm with no ischemic ST changes. There were no arrhythmias noted during the stress test. IMPRESSION: 1. Negative treadmill exercise stress test for exercise induced ischemic ECG changes. 2. Appropriate blood pressure response to exercise. 3. 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 4. Myocardial perfusion images will be reported separately. The [facility] Progress note 05-14-2022 Note Date & Type Note Facility 05-14-2022 Note Cardiology Follow Up Progress Note Chief Complaint: follow up regarding valvular regurgitation HPI: Adrianna Buitrago is a 71 y.o. female with a past medical history including CKD stage 1, mild MR, and mild TR. She presents to cardiology clinic for routine follow-up. Patient states that overall, she has been doing well. She does report some episodes of atypical chest pain. Pain is sharp in nature, occurs both at rest and with exertion, and does not seem to be worsened with exertion. She does have a strong family history of premature coronary artery disease. Additionally, patient endorses some shortness of breath. She denies any lower extremity with orthopnea, paroxysmal nocturnal dyspnea. She denies any dizziness or lightheadedness. No presyncope or syncope. No additional complaints or concerns at the present time. Cardiology ROS: GENERAL: Denies fever, chills, night sweats, weight loss. HEENT: Denies changes in vision, photophobia, changes in hearing, epistaxis, oral bleeding. CARDIOVASCULAR: Endorses chest pain, shortness of breath. Denies exertional dyspnea, orthopnea/PND, lower extremity edema, palpitations, lightheadedness/dizziness. RESPIRATORY: Denies SOB, coughing, wheezing GI: Denies abdominal pain, nausea/vomiting, heartburn, melena/hematochezia. RENAL: Denies dysuria, hematuria, flank pain. MSK: Denies muscle weakness/pain, arthralgias/joint pain. NEUROLOGIC: Denies LOC, weakness, numbness, headaches. SKIN: Denies abnormal rashes or bleeding. PSYCH: Denies significant anxiety, depression, sleep disturbances. Medications Current Outpatient Medications on File Prior to Visit Medication Sig Dispense Refill arjexancot-ykhjdkge-fysnwanmry (Breztri Aerosphere) 160-9-4.8 mcg/actuation HFA aerosol inhaler every 12 (twelve) hours. cloNIDine (Catapres) 0.1 mg tablet Take 0.1 mg by mouth in the morning and at bedtime. denosumab (Prolia) 60 mg/mL syringe 1 injection fenofibrate (Lofibra) 160 mg tablet Take 160 mg by mouth in the morning. furosemide (Lasix) 20 mg tablet Take 20 mg by mouth in the morning. levothyroxine (Synthroid, Levoxyl) 100 mcg tablet levothyroxine 100 mcg tablet omeprazole (PriLOSEC) [address] capsule omeprazole 40 mg capsule,delayed release potassium chloride CR (Klor-Con) 10 mEq ER tablet Take 10 mEq by mouth in the morning, at noon, and at bedtime. pravastatin (Pravachol) 10 mg tablet Take 10 mg by mouth at bedtime. ubrogepant (Ubrelvy) 50 mg tablet 100 mg in the morning. [DISCONTINUED] SUMAtriptan (Imitrex) 100 mg tablet sumatriptan 100 mg tablet TAKE 1 TABLET BY MOUTH ONCE DAILY AT ONSET OF HEADACHE MAY REPEAT 1 IN 2HRS IF NEEDED No current facility-administered medications on file prior to visit. Allergies Amoxicillin and Morphine Physical Exam VITAL SIGNS: BP 139/74 (BP Location: Left arm, Patient Position: Sitting) Pulse 61 Ht 1.6 m (5' 3 ) Wt 56.2 kg (124 lb) SpO2 97% BMI 21.97 kg/m??? Constitutional: Well developed, Well nourished, No acute distress, Non-toxic appearance. HENT: Normocephalic, Atraumatic, Bilateral external ears have normal appearance, Bilateral TMs clear, Oropharynx moist, No oral or pharyngeal exudates, Nose appears normal, nares are patent. Eyes: PERRLA, EOMI, Conjunctiva normal, No discharge. Neck: Normal range of motion, No tenderness, Supple, No stridor. No cervical lymphadenopathy noted. Cardiovascular: Normal heart rate, Normal rhythm, No murmurs, No rubs, No gallops. Thorax & Lungs: Normal breath sounds, No respiratory distress, No wheezing, No chest tenderness to palpation. Abdomen: Bowel sounds normal, Soft, Nontender, No masses, No pulsatile masses. Skin: Warm, Dry, No erythema, No rash. Back: No tenderness, No CVA tenderness. Extremities: Intact distal pulses, No edema, No tenderness, No cyanosis, No clubbing. Musculoskeletal: Good range of motion in all major joints with 5/5 muscle strength in all muscle groups, No tenderness to palpation or major deformities noted. Neurologic: Alert & oriented x 3, Normal motor function in all major muscle groups, Normal sensory function to all major dermatomes, No focal deficits noted. Psychiatric: Affect normal, Judgment normal, Mood normal. Impression: -Tricuspid regurgitation, mild on most recent echo -Mitral regurgitation, trivial on most recent echo -Chest pain, atypical -Family history of premature CAD -HLD: on pravastatin Plan: -Given atypical chest pain in the setting of personal risk factors and family history, will order lexiscan myocardial perfusion imaging to assess for ischemia. -Will order echo to assess valvular disease and to check wall motion, EF -Continue statin for HLD -Optimize medical management -Aggressive risk factor modification -Plan of care discussed with patient. All questions were answered. Patient voices understanding and is agreeable with current plan. -Patient was educated on red flag symptoms. (more content not included)... [facility] Progress note 05-14-2022 Note Date & Type Note Facility 05-14-2022 Note Patient here for 6 m o follow up valve regurgitation and hyperlipidemia. C/o intermittent chest pressure. She says sometimes she takes aspirin to relieve the pain if it lasts more then a few minutes. Occurs at rest, as well as exercise, but she states it's no worse with exercise. [facility] Summary Purpose Family History No Family History Records FoundNo Family History Records FoundNo Family History Records FoundNo Family History Records Found Advance Directives No Advanced Directives Records FoundNo Advanced Directives Records FoundNo Advanced Directives Records FoundNo Advanced Directives Records Found Additional Source Comments INFORMATION SOURCE (unrecogn ized section and content) DATE CREATED AUTHOR 08/17/2021 [facility] dical Specialist DATE CREATED AUTHOR AUTHOR'S ORGANIZ ATION [facility]05/2022 [facility] DATE CREATED AUTHOR AUTHOR'S ORGANIZ ATION 05/01/2023 [facility] dical Specialists EPIC DATE CREATED AUTHOR AUTHOR'S ORGANIZ ATION 05/11/2023 [facility] FOR RECORDS PERTAINING TO PATIENTS WHO ARE OR HAVE BEEN ENROLLED IN A CHEMICAL DEPENDENCY/SUBSTANCEABUSE PROGRAM, SOME INFORMATION MAY BE OMITTED. This clinical summary was aggregated from multiple sources. Caution should be exercised in using it in the provision of clinical care. This summary normalizes information from multiple sources, and as a consequence, information in this document may materially change the coding, format and clinical context of patient data. In addition, data may be omitted in some cases. CLINICAL DECISIONS SHOULD BE BASED ON THE PRIMARY CLINICAL RECORDS. [facility] [employer] [facility]. provides no warranty or guarantee of the accuracy or completeness of information in this document.
--- NOTE | 2023-05-11 08:30 | CA_ITS ---
Patient Name: AKIRA PERALTA MR#: [id number] : 1950 Exam Date: 05/11/2023 Ordering Doctor: JUANITA BRITO M.D. ECHOCARDIOGRAM REPORT PROCEDURE: CA ECHO DOPPLER COMPLETE INDICATIONS: Mitral valve regurgitation COMPARISON: None. DESCRIPTION: COMPLETE ECHOCARDIOGRAM Real-time transthoracic echocardiography with 2D, M-mode, spectral and color flow Doppler performed. QUALITY: Technical quality was good. LEFT VENTRICLE: Normal chamber size. Normal left ventricular wall thickness. LV EF: Global left ventricular systolic function is normal. Calculated left ventricular ejection fraction is 62%. DIASTOLIC: Normal diastolic function. ATRIAL SEPTUM: Inadequately seen. LEFT ATRIUM: Normal chamber size. RIGHT ATRIUM: Normal chamber size. RIGHT VENTRICLE: Normal chamber size. Normal right ventricular systolic function. TRICUSPID VALVE: Normal mobility and thickness. No stenosis with mild regurgitation. No evidence of pulmonary hypertension. RVSP 21mmHg MITRAL VALVE: Normal mobility and thickness. No evidence of mitral valve stenosis. There is no mitral annular calcification. Trivial mitral regurgitation. AORTIC VALVE: Normal trileaflet appearance. No visible sclerosis. Normal leaflet mobility. No evidence of aortic valve stenosis. No aortic regurgitation. AORTIC ROOT: Normal diameter and appearance. PULMONIC VALVE: Normal thickness and mobility. No stenosis. No regurgitation. PERICARDIUM: Anterior free space; trivial effusion versus fat pad. IVC: Collapses with inspirations. Normal size. CONCLUSION: 1. Global left ventricular systolic function is normal; visually estimated ejection fraction is 60 to 65% 2. Normal right ventricular size and systolic function 3. Normal diastolic function 4. The left atrium is normal in size 5. Mild tricuspid regurgitation 6. Anterior free space; trivial effusion versus fat pad Adult Echocardiography Procedure Report Left Ventricle LVEDD (3.7 - 5.6 cm): 3.88 cm LVESD (2.2 - 4.0 cm): 2.74 cm LVIVS thickness (0.6 - 1.2 cm): 0.99 cm LVPW thickness (0.5 - 1.0 cm): 1.13 cm e': 0.08 m/s E - e': 9.64 LVOT Max Gradient: 4.01 mm[Hg] LVOT Area (cm2): 1.00 m/s Peak Velocity (LVOT): 1.00 m/s Mean Velocity (LVOT): 0.63 m/s LVOT Diameter 2.07 cm Left Ventricular Ejection Fraction: 61.84 % Left Atrium LA Volume Index (2D A2C): 35.35 ml/m2 Left Atrium Systolic Dimension: 3.73 cm Mitral Valve MV E to A Ratio: 0.98, 0.96 Mitral Valve A-Wave Peak Velocity: 0.80 m/s Mitral Valve E-Wave Peak Velocity: 0.77 m/s Right Ventricle RV Internal Diastolic Dimension: 3.18 cm Aorta AO Root Diam: 2.87 cm Ascending Ao Diam: 3.11 cm Aortic Valve AoV Area (Peak Fransico): 2.79 cm2, 2.79 cm2 AoV Area (VTI): 2.61 cm2, 2.61 cm2 Peak Velocity(Antegrade Flow): 1.21 m/s Peak Gradient(Antegrade Flow): 5.85 mm[Hg] Mean Velocity(Antegrade Flow): 0.84 m/s Mean Gradient(Antegrade Flow): 3.20 mm[Hg] Velocity Time Integral: 32.00 cm Tricuspid Valve Peak Velocity (Regurgitant Flow): 1.95 m/s, 1.94 m/s, 2.13 m/s Pulmonic Valve Mean Gradient: 1.43 mm[Hg] Mean Velocity: 0.56 m/s Peak Velocity: 0.74 m/s, 0.76 m/s Peak Gradient: 2.21 mm[Hg], 2.30 mm[Hg] Right Atrium Right Atrium Systolic Pressure: 53.47 ml, 53.47 ml Dictated by: Markel Smith M.D. on 05/11/2023 at 14:44 Approved by: Markel Smith M.D. on 05/11/2023 at 14:47
== END 2023-05-11 07:43 | disposition home or self-care (01) ==
LOC: CARD 07:43
PROVIDERS: PCP Family Medicine; Visit Provider Internal Medicine Cardiovascular Disease
DX: I34.0 Nonrheumatic mitral (valve) insufficiency (principal)
CPT/HCPCS: 93306

== ENCOUNTER 2023-06-23 15:36 | Emergency (ER) | payer MEDICARE, OTHER, SELFPAY ==
[2023-06-23] VITALS (11 sets, daily range): BP systolic 115–143; BP diastolic 50–90; PULSE 100–116; RESP 17–29; TEMP 37.7; O2SAT 96–99; BMI 21.8
--- NOTE | 2023-06-23 15:45 | ECG_ITS ---
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
--- NOTE | 2023-06-23 15:46 | XR_ITS ---
The [address] [address] Patient Name: AKIRA PERALTA MRN: [id number] date: 1950 Sex: F Assigned Patient Location: ER Current Patient Location: ER Accession/Order Number: [id number] Exam Date: 06/23/2023 16:30 Report Date: 06/23/2023 17:00 At the request of: ALVIN EARLY Procedure: XR chest 1V EXAM: XR chest 1V at 1627 hours HISTORY: Shortness of breath COMPARISON: 01/17/2021 TECHNIQUE: AP upright portable chest x-ray FINDINGS: The heart is not enlarged and the vasculature is not distended. No acute infiltrate, effusion or pneumothorax is identified. A remote high-grade separation of the acromioclavicular joint is noted on the right. The osseous structures otherwise grossly intact. XR/XR chest 1V IMPRESSION: No acute infiltrate or evidence of cardiac decompensation. A remote injury to the acromioclavicular joint on the right is noted, and the overall appearance the chest is unchanged. Electronically authenticated by: EMEKA TURNER Date: 06/23/2023 17:00
--- NOTE | 2023-06-23 15:55 | ED.GENADUL1 ---
HPI - General Adult General Chief complaint: Shortness of Breath/Dyspnea Stated complaint: Flu Like Symptoms Time Seen by Provider: 06/23/23 15:44 Source: patient Mode of arrival: walk-in Limitations: no limitations History of Present Illness HPI narrative: Patient is a 72-year-old female who presents to the emergency department for ongoing nasal congestion, sinus headache, shortness of breath for several months. She has been on 3 different courses of antibiotics, most recently she finished 2 days ago and states that she finished steroids 7 days ago. 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 She has been using inhalers at home. She believes this is an exacerbation of chronic bronchitis but she is also concerned because immediately preceding the symptoms, she had the RSV vaccine. She has had no chest pain, hemoptysis, objective fevers. No leg swelling. She states she continues to get some green drainage from her sinuses.Pharmacy records show the patient was initially on a course of Cipro starting 03/19/2023, as well as a 10-day course of Levaquin in May and just finished a course of cefdinir for 10 days. Related Data Previous Rx's ?Medication ?Instructions ?Recorded albuterol sulfate 2.5 mg/3 mL 2.5 mg (3 mL) inhalation Q6H PRN 06/23/23 (0.083 %) solution for nebulization shortness of breath or wheezing #90 mL Allergies Allergy/AdvReac Type Severity Reaction Status Date / Time amoxicillin Allergy Unknown Verified 01/05/23 08:04 morphine Allergy Unknown Verified 01/05/23 08:04 Review of Systems ROS Constitutional Reports: chills; Denies: fever Ears, nose, mouth, and throat Reports: nasal discharge and nasal congestion; Denies: throat pain Cardiovascular Denies: chest pain Respiratory Reports: shortness of breath, cough and wheezing; Denies: coughing up blood Gastrointestinal Denies: nausea or vomiting Musculoskeletal Denies: back pain or neck pain Integumentary/Breast Denies: rash Neurological Reports: headache Psychiatric Reports: anxiety Hematologic/Lymphatic Denies: easy bruising or easy bleeding Exam Narrative Exam Narrative: Gen.: Awake, alert, in no distress Head: Normocephalic, atraumatic ENT: Moist mucous membranes Respiratory: No respiratory distress, Expiratory wheezing globally. Speaks in full sentences Cardio: Regular rate and rhythm Extremities: Moves extremities equally, no pedal edema Psych: Normal mood and affect Neuro: No focal neuro deficit Skin: Warm, dry, intact Constitutional Vital Signs, click to edit/add: Last Vital Signs Temp 99.8 F 06/23/23 15:40 Pulse 109 H 06/23/23 16:40 Resp 29 H 06/23/23 16:40 BP 115/50 06/23/23 17:01 Pulse Ox 98 06/23/23 16:40 O2 Del Method Room Air 06/23/23 16:12 Course Vital Signs Vital signs: Vital Signs Temperature 99.8 F 06/23/23 15:40 Pulse Rate 115 H 06/23/23 15:40 Respiratory Rate 24 06/23/23 15:40 Blood Pressure 124/84 06/23/23 15:40 Pulse Oximetry 98 06/23/23 15:40 Temperature 99.8 F 06/23/23 15:40 Pulse Rate 109 H 06/23/23 16:40 Respiratory Rate 29 H 06/23/23 16:40 Blood Pressure 115/50 06/23/23 17:01 Pulse Oximetry 98 06/23/23 16:40 Oxygen Delivery Method Room Air 06/23/23 16:12 Medical Decision Making MDM Narrative Medical decision making narrative: Patient was treated with IV fluids, steroids, breathing treatments with improvement in the emergency department. Lab studies show leukocytosis, she did finish a course of high-dose steroids last week. The remainder of her labs are stable, mild renal insufficiency but normal troponin and BNP. Chest x-ray with no evidence of acute cardiopulmonary changes. Patient is positive for COVID. She has normal oxygen saturation in the ER. She is clinically improved after breathing treatments. She is given a prescription for albuterol nebulizers, But as the patient has had symptoms intermittently for several months she is out of the window for responsible use of Paxlovid.Increase fluids, follow-up with PCP and return to the ER if symptoms change or worsen. Continue breathing treatments for home. Medical Records Medical records reviewed: Yes I reviewed the patient's medical records Lab Data Lab results reviewed: Yes I reviewed the patient's lab results Labs: Lab Results 06/23/23 06/23/23 06/23/23 Range/Units 15:45 15:55 16:09 WBC 19.2 H (4.0-11.0) 10^3/uL RBC 4.04 L (4.20-5.40) 10^6/uL Hgb 12.7 (12.0-16.0) g/dL Hct 39.1 (36.0-48.0) % MCV 96.8 (81.0-99.0) fL MCH 31.4 (26.7-34.0) pg MCHC 32.5 (29.9-35.2) g/dL RDW 13.4 (11.0-15.0) % Plt Count 297 (150-450) 10^3/uL MPV 10.5 (9.5-13.5) fL Seg Neuts % (Manual) 92.0 Lymphocytes % (Manual) 5.0 L (20.5-60.0) % Monocytes % (Manual) 3.0 (1.7-12.0) % Eosinophils % (Manual) 0.0 L (0.9-7.0) % Basophils % (Manual) 0.0 L (0.2-2.0) % Neutrophils # (Manual) 17.66 H (1.4-6.5) 10^3/uL Lymphocytes # (Manual) 0.96 L (1.20-3.80) 10^3/uL Monocytes # (Manual) 0.57 (0.30-0.80) 10^3/uL Eosinophils # (Manual) 0.00 (0.00-0.70) 10^3/uL Basophils # (Manual) 0.00 (0.00-0.10) 10^3/uL VBG pH 7.427 (7.330-7.430) VBG pCO2 39.5 L (40.0-52.0) mmHg Sodium 139 (136-145) mmol/L Potassium 4.0 (3.5-5.1) mmol/L Chloride 101 (98-107) mmol/L Carbon Dioxide 26.0 (21.0-32.0) mmol/L Anion Gap 16.0 BUN 23.0 H (7.0-18.0) mg/dL Creatinine 1.97 H (0.55-1.02) mg/dL Est GFR ( Amer) 30 L (>=60) Est GFR (Non-Af Amer) 25 L (>=60) BUN/Creatinine Ratio 11.7 Glucose 119 H (74-106) mg/dL Lactate 1.6 (0.4-2.0) mmol/L Calcium 9.5 (8.5-10.1) mg/dL Total Bilirubin 0.5 (0.2-1.0) mg/dL AST 35 (15-37) U/L ALT 37 (14-59) U/L Alkaline Phosphatase 52 (46-116) U/L Troponin I High Sens 8.4 (4.0-51.3) pg/mL NT-Pro-B Natriuret Pep 290.0 (<=900.0) pg/mL Total Protein 7.2 (6.4-8.2) g/dL Albumin 3.9 (3.4-5.0) g/dL Globulin 3.3 g/dL Albumin/Globulin Ratio 1.2 Adenovirus (PCR) Not detected (NOT DETECTE) C. pneumoniae DNA (PCR) Not detected (NOT DETECTE) Coronavirus Type OC43 Not detected (NOT DETECTE) Coronavirus Type HKU1 Not detected (NOT DETECTE) Coronavirus Type 229E Not detected (NOT DETECTE) Coronavirus Type NL63 Not detected (NOT DETECTE) Human Metapneumovir PCR Not detected (NOT DETECTE) M. pneumoniae (PCR) Not detected (NOT DETECTE) Parainfluenza PCR Not detected (NOT DETECTE) Parainfluenza 2 (PCR) Not detected (NOT DETECTE) Parainfluenza 3 (PCR) Not detected (NOT DETECTE) Parainfluenza 4 (PCR) Not detected (NOT DETECTE) RSV (RT-PCR) Not detected (NOT DETECTE) Entero/Rhino (PCR) Not detected (NOT DETECTE) SARS-CoV-2 (PCR) Detected A (NOT DETECTE) Bordetella pertussis (PCR) Not detected (NOT DETECTE) B parapertussis DNA PCR Not detected (NOT DETECTE) Influenza Type A (PCR) Not detected (NOT DETECTE) Influenza Type B (PCR) Not detected (NOT DETECTE) Imaging Data Chest x-ray: Attestation: I have reviewed the pertinent imaging results. Radiologist's impression: ITS Impressions Chest X-Ray 06/23/23 15:46 IMPRESSION: No acute infiltrate or evidence of cardiac decompensation. A remote injury to the acromioclavicular joint on the right is noted, and the overall appearance the chest is unchanged. Electronically authenticated by: EMEKA TURNER Date: 06/23/2023 17:00 ECG Data Attestation: I personally reviewed and interpreted this ECG as follows: (Normal sinus rhythm at a rate of 97, no acute ST elevation or ectopy. EKG reviewed by attending physician) Discharge Plan Discharge Stand Alone Forms: Portal Instructions Chief Complaint: Shortness of Breath/Dyspnea Clinical Impression: COVID-19 Patient Disposition: Home, Self-Care Time of Disposition Decision: 17:26 Condition: Good Prescriptions / Home Meds: New albuterol sulfate 2.5 mg /3 mL (0.083 %) solution for nebulization 2.5 mg inhalation Q6H PRN (Reason: shortness of breath or wheezing) Qty: 90 0RF Print Language: Tajik Instructions: COVID-19 (Coronavirus Disease 2019) (ED), How to Recover from COVID-19 at Home (ED) Referrals: Miko Burris MD [Primary Care Provider] - 1 week
[2023-06-23 16:02] LABS: Adenovirus NOT DETECTED (NOT DETECTE); Bordetella parapertussis NOT DETECTED (NOT DETECTE); Coronavirus 229E NOT DETECTED (NOT DETECTE); Coronavirus HKU1 NOT DETECTED (NOT DETECTE); Coronavirus NL63 NOT DETECTED (NOT DETECTE); Coronavirus OC43 NOT DETECTED (NOT DETECTE); Human Metapneumovirus NOT DETECTED (NOT DETECTE); Human Rhinovirus/Enterovirus NOT DETECTED (NOT DETECTE); Influenza A NOT DETECTED (NOT DETECTE); Influenza B NOT DETECTED (NOT DETECTE); Mycoplasma pneumoniae NOT DETECTED (NOT DETECTE); Parainfluenza Virus 1 NOT DETECTED (NOT DETECTE); Parainfluenza Virus 2 NOT DETECTED (NOT DETECTE); Parainfluenza Virus 3 NOT DETECTED (NOT DETECTE); Parainfluenza Virus 4 NOT DETECTED (NOT DETECTE); Respiratory Syncytial Virus NOT DETECTED (NOT DETECTE)
[2023-06-23] MEDS: METHYLPREDNISOLONE SOD SUCC PF 125 MG/2 ML VIAL IVP (16:05)
[2023-06-23 16:06] LABS: Hematocrit 39.1 % (36.0-48.0); Hemoglobin 12.7 g/dL (12.0-16.0); Mean Corpuscular HGB Conc 32.5 g/dL (29.9-35.2); Mean Corpuscular Hemoglobin 31.4 pg (26.7-34.0); Mean Corpuscular Volume 96.8 fL (81.0-99.0); Mean Platelet Volume 10.5 fL (9.5-13.5); Platelet Count 297 10^3/uL (150-450); Red Blood Count 4.04 10^6/uL (4.20-5.40); Red Cell Distribution Width 13.4 % (11.0-15.0); White Blood Count 19.2 10^3/uL (4.0-11.0)
[2023-06-23] MEDS: IPRATROPIUM/ALBUTEROL SULFATE 3 ML AMPUL.NEB IH (16:12)
[2023-06-23 16:20] LABS: Alanine Aminotransferase 37 U/L (14-59); Albumin Globulin Ratio 1.2; Albumin Level 3.9 g/dL (3.4-5.0); Alkaline Phosphatase 52 U/L (46-116); Aspartate Amino Transferase 35 U/L (15-37); BUN Creatinine Ratio 11.7; Bilirubin Total 0.5 mg/dL (0.2-1.0); Calcium 9.5 mg/dL (8.5-10.1); Chloride 101 mmol/L (98-107); Estimated GFR (African America 30 (>=60); Estimated GFR (Non-African Ame 25 (>=60); Globulin 3.3 g/dL; Glucose 119 mg/dL (74-106); Sodium 139 mmol/L (136-145); Total Protein 7.2 g/dL (6.4-8.2)
[2023-06-23 16:20] LABS: PCO2 VBG 39.5 mmHg (40.0-52.0); pH VBG 7.427 (7.330-7.430)
[2023-06-23 16:22] LABS: Lactate/Lactic Acid 1.6 mmol/L (0.4-2.0)
[2023-06-23 16:27] LABS: Troponin I High Sensitivity 8.4 pg/mL (4.0-51.3)
[2023-06-23 16:34] LABS: Lymphocytes Absolute Manual 0.96 10^3/uL (1.20-3.80); Monocytes Absolute Manual 0.57 10^3/uL (0.30-0.80); Segmented Neut Absolute Manual 17.66 10^3/uL (1.4-6.5)
[2023-06-23] MEDS: 0.9 % SODIUM CHLORIDE 1,000 ML 1000 ML IV (16:41)
[2023-06-23 16:57] LABS: SARS-CoV-2 DETECTED (NOT DETECTE)
== END 2023-06-23 17:37 | disposition home or self-care (01) ==
PROVIDERS: Physician Assistant; Emergency Provider Emergency Medicine; PCP Family Medicine
DX: U07.1 COVID-19 (principal)
CPT/HCPCS: 0202U; 36415; 71045; 80053; 82800; 83605; 83880; 84484; 85007; 85027; 87040; 93005; 94640; 96374; 99285; J2930

== ENCOUNTER 2023-07-08 07:21 | Outpatient (RCR) | payer MEDICARE, OTHER, SELFPAY ==
[2023-07-08 07:50] VITALS: BP 143/67; PULSE 72; TEMP 36; O2SAT 100
--- NOTE | 2023-07-08 07:52 | PC.NURSE ---
0745: Pt. to [facility] amb. accompanied by .Seated in recliner. VSS. Relays just getting over being sick. Denies c/o dyspnea, pain or n/v. Pt. given water.
[2023-07-08] MEDS: DENOSUMAB 60 MG/ML SYRINGE SQ (08:13)
--- NOTE | 2023-07-08 08:16 | PC.NURSE ---
0813: Medicated with Prolia sq to right upper arm. Trace bleeding to site. Bandaid to site. Pt. tolerated without c/o. 0815: D/c'd amb. to home with .
== END 2023-08-04 23:59 | disposition home or self-care (01) ==
LOC: INF 07:21
PROVIDERS: PCP Family Medicine; Visit Provider Family Medicine
DX: M81.0 Age-related osteoporosis without current pathological fracture (principal)
CPT/HCPCS: 96372; J0897

== ENCOUNTER 2023-07-22 08:40 | Outpatient (OUT) | payer MEDICARE, OTHER, SELFPAY ==
--- NOTE | 2023-07-22 09:00 | RT_ITS ---
[facility] Test Date: 2023-07-22 Pat Name: AKIRA PERALTA Department: Room: - Gender: Female Immigration Consultant: Dalia Birmingham RRT : 1950 Requested By: [id number] Order Number: [id number] Reading MD: Ashvin Barragan Interpretive Statements Pulmonary function testing was completed according to ATS criteria. Findings were considered accurate and reproducible. Both pre- and post-bronchodilator values utilized for spirometry. No diffusion capacity testing was ordered. Spirometry (based on pre-bronchodilator values): -FEV1/FVC: Reduced @ 63% -FEV1: Moderately reduced @ 54% -FVC: Reduced @ 65% -ULJ89-81%: Reduced @ 32% -There is a partial bronchodilator response in FEV1 which meets >12% change but not >200mL increase. Lung volumes by plethysmography: -RV: Increased @ 135% -TLC: Normal @ 98% Flow-volume loop: -Moderate obstructive pattern Impressions: -Spirometry suggests moderate obstruction. There is a partial bronchodilator response. An elevated RV suggests air trapping. Overall study is compatible with an underlying obstructive process such as asthma, COPD or asthma-COPD overlap. Clinical correlation required. Electronically Signed On 07-22-2023 17:09:52 EDT by Ashvin Barragan
[2023-07-22] MEDS: ALBUTEROL SULFATE 2.5 MG/3 ML VIAL NEB IH (09:31)
== END 2023-07-22 08:41 | disposition home or self-care (01) ==
LOC: CARD 08:41
PROVIDERS: PCP Family Medicine
DX: J45.20 Mild intermittent asthma, uncomplicated (principal)
CPT/HCPCS: 94060; 94726

== ENCOUNTER 2023-07-27 14:30 | Outpatient (OUT) | payer MEDICARE, OTHER, SELFPAY | END 2023-07-27 14:31 | disposition home or self-care (01) | LOC: PST 07-28 14:55 | PROVIDERS: PCP Family Medicine; Visit Provider Surgery | DX: Z01.818 Encounter for other preprocedural examination (principal); Z80.0 Family history of malignant neoplasm of digestive organs ==

== ENCOUNTER 2023-07-29 10:43 | Outpatient (OUT) | payer MEDICARE, OTHER, SELFPAY ==
--- NOTE | 2023-07-29 10:45 | XR_ITS ---
The [address] [address] Patient Name: AKIRA PERALTA MRN: [id number] date: 1950 Sex: F Assigned Patient Location: RAD Current Patient Location: [facility] Accession/Order Number: [id number] Exam Date: 07/29/2023 11:05 Report Date: 07/29/2023 11:40 At the request of: JENNY NATARAJAN Procedure: XR DEXA axial skeleton EXAMINATION: XR DEXA axial skeleton HISTORY: Age Related Osteoporosis M81.0 COMPARISON: DEXA bone densitometry 05/28/2021 TECHNIQUE: Dual-energy X-ray absorptiometry (DXA) was performed. FINDINGS: SPINE ANALYSIS: Average bone mineral density is 1.345 g/cm2. T-score (standard deviation relative to young adult mean): 1.4 . +7.2% change since prior study. HIP ANALYSIS: Lowest bone mineral density is within the right femoral neck, 0.809 g/cm2. T-score (standard deviation relative to young adult mean): -1.7 . +8.1% change since prior study. XR/XR DEXA axial skeleton IMPRESSION: World [employer] Classification: Osteopenia - Moderate Fracture Risk Electronically authenticated by: HOSEA BOWENS Date: 07/29/2023 11:40
--- OUTSIDE RECORDS SUMMARY | 2023-07-29 11:05 | XMS_ITS | CCD ---
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 Name Role Phone HOY ., DR ALVARADO [...] Oliva Consulting Unavailable HOY ., DR ALVARADO Admazucena [...] ALVARADO Admazucena Unavailable HOY ., DR ALVARADO Admazucena Unavailable [...] MOHAMAD Attending Unavailable ALGHOTHANI, MOHAMAD Consulting Unavailable YENY ., DR ALVARADO Primary Care Unavailable ALGHOTHANI, MOHAMAD Admitting Unavailable ALGHOTHANI, MOHAMAD Consulting Unavailable ALGHOTHANI, MOHAMAD Attending Unavailable HOY ., DR ALVARADO Admitting Unavailable HOY ., DR ALVARADO Consulting Unavailable HOY ., DR ALVARADO Primary Care Unavailable HOY ., DR ALVARADO Attending Unavailable ZIEBER, DR WEI Oliva Consulting Unavailable HOY ., DR ALVAARDO Admitting Unavailable HOY ., DR ALVARADO Primary [...] ERNIE Admitting Unavailable SURINDER, ERNIE Consulting Unavailable SURINDER, ERNIE Attending Unavailable ALGHOTHANI, MOHAMAD Attending Unavailable ALGHOTHANI, MOHAMAD Attending Unavailable TEGAN PAIZ Attending Unavailable Jenny Burris MD Primary Care Provider [phone] Issa VALE Attending Unavailable RENNY ORLANDO Attending Unavailable RENNY ORLANDO Attending Unavailable RENNY ORLANDO Attending Unavailable RENNY ORLANDO Attending Unavailable RENNY ORLANDO Attending Unavailable KEILA FAITH Attending Unavailable Allergies Allergy Classification Reported Allergen(s) Allergy Type Date of Onset Reaction(s) Facility (2 sources) Amoxicillin; Translations: [AMOXICILLIN] Drug Allergy 3 [facility] Repository (3 sources) Morphine; Translations: [MORPHINE] Drug Allergy 3 [facility] Repository (1 source) Amoxicillin Drug Allergy 3 Itching, Other, Unknown [facility] (1 source) Mold Extract Drug Allergy 4 Unknown [facility] (1 source) Morphine Drug Allergy 3 Itching, Other [facility] (1 source) Penicillin; Translations: [penicillin] Drug Allergy [facility] Repository (1 source) No Known Medication Allergies; Translations: [No Known Medication Allergies] Propensity to adverse reactions (disorder) [facility] Repository Medications Current Medications Medication Drug Class(es) Dates Sig (Normalized) Sig (Original) aspirin 81 mg delayed release oral tablet (1 source) Platelet Aggregation Inhibitor, Nonsteroidal Anti-inflammatory Drug aspirin 81 MG EC tablet 1 (one) time each day at the same time. 0 Active azelastine hydrochloride 0.137 mg/actuat metered dose nasal spray (1 source) Histamine-1 Receptor Antagonist Start: 01-05-2023 azelastine (Astelin) 0.1 % nasal spray Indications: Vasomotor rhinitis Azelastine HCl Two sprays per nostril on a b.I.d. basis. 30 mL 11 01/05/2023 Active budesonide 0.5 mg/ml inhalation suspension (1 source) Corticosteroid Start: 01-05-2023 End: 01-05-2024 take 2 mL by mouth in the morning budesonide (Pulmicort) 1 MG/2ML nebulizer solution Indications: Mild intermittent asthma without complication (CMS/HCC) Take 2 mL (1 mg) by nebulization in the morning. Rinse mouth with water after use to reduce aftertaste and incidence of candidiasis. Do not swallow.. 60 mL 11 01/05/2023 01/05/2024 Active 168 hr cloNIDine 0.20003 mg/hr transdermal system (1 source) Central alpha-2 Adrenergic Agonist cloNIDine (Catapres-TTS) 0.1 MG/24HR cloNIDine 0 Active 1 ml denosumab 60 mg/ml prefilled syringe (1 source) RANK Ligand Inhibitor denosumab (Prolia) 60 MG/ML solution prefilled syringe as directed Subcutaneous 0 Active fenofibrate 160 mg oral tablet (1 source) Peroxisome Proliferator Receptor alpha Agonist take 1 tablet by mouth in the morning fenofibrate (Triglide) 160 MG tablet Take 1 tablet by mouth in the morning. 0 Active fluticasone propionate 0.05 mg/actuat metered dose nasal spray (1 source) Corticosteroid fluticasone (Flonase) 50 MCG/ACT nasal spray 1 (one) time each day at the same time. 0 Active furosemide 20 mg oral tablet (1 source) Loop Diuretic take 1 tablet by mouth once daily furosemide (Lasix) 20 MG tablet Take 1 tablet every day by oral route for 90 days. 0 Active lactulose 667 mg/ml oral solution (1 source) Osmotic Laxative take 30 mL by mouth twice daily as needed lactulose (Chronulac) 10 GM/15ML solution 30ml Oral twice daily as needed for 90 days 0 Active omeprazole 40 mg delayed release oral capsule (1 source) Proton Pump Inhibitor take 1 capsule by mouth once daily omeprazole (PriLOSEC) [address] capsule Take 1 capsule every day by oral route for 90 days. 0 Active potassium chloride 10 meq extended release oral tablet (1 source) take 1 tablet by mouth three times daily potassium chloride CR (Klor-Con) 10 MEQ ER tablet Take 1 tablet 3 times a day by oral route for 90 days. 0 Active pravastatin sodium 10 mg oral tablet (1 source) HMG-CoA Reductase Inhibitor take 1 tablet by mouth at bedtime pravastatin (Pravachol) 10 MG tablet Take 10 mg by mouth at bedtime. 0 Active ubrogepant 50 mg oral tablet (1 source) Ubrogepant (Ubrelvy) 50 MG tablet Ubrelvy 0 Active Problems Active Problems Problem Classification Problem Date [...] Test Name Value Interpretation Reference Range Facility Consent for Procedure/Surger yon 06-10-2023 Consent for Procedure/Surgery [id number] 0TIFF Normal [facility] Ambulatory Visit Summaryon 0 06-09-2023 Ambulatory Visit Summary BUITRAGO ADRIANNA D :1950 Visit Date:06/09/2023 Ambulatory Visit Instructions Your Diagnosis Family history of colon cancer Your Care Team Attending Physician - KAVIN FRANKLIN, Issa Oliva Primary Care Physician - Jenny Burris MD This Is Your Medications List cetirizine (cetirizine 10 mg Tab) multivitamin (Multi Vitamins oral tablet) Contact prescribing physician if questions or concerns aspirin (aspirin 81 mg Oral EC Tab) azelastine nasal (azelastine hydrochloride 137 mcg spray) budesonide (budesonide 1 mg/2 mL inhalation suspension) budesonide/formoterol/ glycopyrrolate (Breztri Aerosphere) clonidine (cloNIDine 0.1 mg tab) denosumab (Prolia 60 mg/mL subcutaneous solution) fenofibrate (fenofibrate 160 mg oral tablet) fluticasone nasal (Flonase 0.05 mg/inh [place]) furosemide (Lasix 20 mg Tab) lactulose (lactulose 10 g/15 mL Oral Syrup) levothyroxine (levothyroxine 100 mcg (0.1 mg) Tab) liothyronine (Cytomel 5 mcg Tab) omeprazole (omeprazole 40 mg Cap-DR) potassium chloride (potassium chloride 10 mEq ER Tab) pravastatin (pravastatin 10 mg Tab) ubrogepant (Ubrelvy 100 mg oral tablet) Procedures Performed Colonoscopy (2019), Colonoscopy (06/16/2008), Implantation of intraocular lens, Nasal septoplasty, SUE BSO - Total abdominal hysterectomy and bilateral salpingo-oophorectomy. Discharge Vitals Heart Rate (Peripheral) 49 Respiratory Rate 16 Blood Pressure 118/68 Height 160 cm Height 63 in Weight 57.8 kg Weight 127.16 lb BMI 22.58 Medications What How Much When Instructions Unchanged cetirizine (cetirizine 10 mg Tab) 1 Tablets By Mouth Every day Unchanged multivitamin (Multi Vitamins oral tablet) 1 Tablets By Mouth Every day Unchanged aspirin (aspirin 81 mg Oral EC Tab) 1 Tablets By Mouth Every day Contact prescribing physician if questions or concerns Unchanged azelastine nasal (azelastine hydrochloride 137 mcg spray) 2 Sprays Nasal Inhalation Every day Contact prescribing physician if questions or concerns Unchanged budesonide (budesonide 1 mg/ 2 mL inhalation suspension) 2 Milliliter Nebulized inhalation (aerosol) Every day Contact prescribing physician if questions or concerns Unchanged budesonide/ formoterol/ glycopyrrolate (Breztri Aerosphere) 2 Puffs Inhalation 2 times a day Contact prescribing physician if questions or concerns Unchanged clonidine (cloNIDine 0.1 mg tab) 1 Tablets By Mouth 2 times a day Contact prescribing physician if questions or concerns Unchanged denosumab (Prolia 60 mg/ mL subcutaneous solution) 60 Milligram Subcutaneous Every 6 months Contact prescribing physician if questions or concerns Unchanged fenofibrate (fenofibrate 160 mg oral tablet) 1 Tablets By Mouth Every day Contact prescribing physician if questions or concerns Unchanged fluticasone nasal (Flonase 0.05 mg/ inh [place]) 2 Sprays Nasal Inhalation Every day Contact prescribing physician if questions or concerns Unchanged furosemide (Lasix 20 mg Tab) 1 Tablets By Mouth Every day Contact prescribing physician if questions or concerns Unchanged lactulose (lactulose 10 g/ 15 mL Oral Syrup) 30 Milliliter By Mouth 2 times a day Contact prescribing physician if questions or concerns Unchanged levothyroxine (levothyroxine 100 mcg (0.1 mg) Tab) 1 Tablets By Mouth Every day Contact prescribing physician if questions or concerns Unchanged liothyronine (Cytomel 5 mcg Tab) 1 Tablets By Mouth Every day Contact prescribing physician if questions or concerns Unchanged omeprazole (omeprazole 40 mg Cap-DR) 1 Capsules By Mouth Every day Contact prescribing physician if questions or concerns Unchanged potassium chloride (potassium chloride 10 mEq ER Tab) 1 Tablets By Mouth Every day Contact prescribing physician if questions or concerns Unchanged pravastatin (pravastatin 10 mg Tab) 1 Tablets By Mouth Every day Contact prescribing physician if questions or concerns Unchanged ubrogepant (Ubrelvy 100 mg oral tablet) 1 Tablets By Mouth Once Contact prescribing physician if questions or concerns Medications and Immunizations Administered Not Given influenza virus vaccine, inactivated, Patient Refuses Allergies morphine (Itching) penicillin (Itching) Problems Ongoing - Any problem that you are currently receiving treatment for. Asthma BMI 22.0-22.9, adult Cardiac murmur Cervical disc disease Essential hypertension Family history of colon cancer GERD (gastroesophageal reflux disease) Hypercholesteremia Hyperlipidemia Hypothyroidism Lumbar radiculopathy Migraines Mitral valve insufficiency Osteoporosis PVD (peripheral vascular disease) Tricuspid valve disorder Venous insufficiency Patient Survey You may receive a survey via text or e-mail asking about your office visit. Please share your experience with us by completing your survey. We appreciate your feedback and thank you for choosing us for your care. Normal [facility] Physician Referralon 024 Physician Referral [id number] 20 [id number] [facility] Office Visiton 04-10-2023 Follow-up visit [id number] BuitragoShirley ly D 1950 F Date Provider Department Center 04/10/2023 3848-MELO JENKINS [facility] No family history on file Level of Service:49739 ID OFFICE/OUTPATIENT ESTABLISHED LOW MDM 20 MIN Normal [facility] Office Visiton 11-25-2022 Follow-up visit [id number] BuitragoShirley ly D 1950 F Date Provider Department Center 11/25/2022 120-TEGAN PAIZ [facility] No family history on file Level of Service:28368 ID OFFICE/OUTPATIENT ESTABLISHED MOD MDM 30-39 MIN Normal [facility] CALCIUMon 07-02-2022 Calcium [Mass/Vol] 9.8 mg/dL Normal 8.5-10.1 [facility] Comment on above: Performed By: #### C A, CREA #### [facility] [address] [place] [address] Dr. Zuly Medina CREATININEon 07-02-2022 Creatinine [Mass/Vol] 1.41 mg/dL Critically high 0.55-1.02 [facility] Comment on above: Performed By: #### C A, CREA #### [facility] [address] [place] [address] Dr. Zuly Medina EGFR-AF JAPANESE 44 mL/min/1.73m2 Critically low >=60 [facility] Comment on above: Performed By: #### C A, CREA #### [facility] [address] [place] [address] Dr. Zuly Medina EGFR-NON AF JAPANESE 37 mL/min/1.73m2 Critically low >=60 [facility] Comment on above: Performed By: #### C Frank, CREA #### [facility] [address] [place] [address] Dr. Zuly Medina MRI LSPINE WO CONon 06-02-19 MRI LSPINE WO CON EXAMINATION: MRI LSPINE [...] by: TESSA ESTEVES Date: 2022-06-02 07:58 Normal [facility] VC VENOUS REFLUX NOEL LMTon 0 05-30-2022 VC VENOUS REFLUX NOEL LMT Patient: ADRIANNA BUITRAGO Exam Date: 05/30/2022 : 1950 Gender:F Ordering : DR JENNY BURRIS . Admission #: [id number] Family : Order #: [id number] CLICK HERE TO VIEW EXAM RADIOLOGY REPORT [...] thrombus. Compressibility: Normal. Flow: Deep venous reflux. 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 Order #: [id number] CLICK HERE TO VIEW EXAM RADIOLOGY REPORT [...] Garcia M.D. on 05/27/2022 at 13:00 Normal [facility] XR LSPINE MIN 4 VIEWSon 05-07 XR [...] by: WEI GARCIA Date: 2022-05-23 14:32 Normal [facility] Covid-19 PCR (CVDTBH)on 05-07 SARS-CoV-2 (COVID-19) RNA MARY+probe Ql (Unsp spec) Not detected Normal NOT DETECTED [facility] Comment on above: Result Comment: This test is not yet approved or cleared by the [place] FDA. When there are no FDA-approved or cleared tests available, and other criteria are met, FDA can make tests available under an emergency access mechanism called an Emergency Use Authorization (EUA). The EUA for this test is supported by the [place] of Health and Human Service's (HHS's) declaration [...] SARS-CoV-2. Performed By: #### C VDTB #### [facility] [address] [place] [address] Dr. Zuly Medina INFLUENZA A AND B AGon 05-22 [facility] SEE BELOW Normal [facility] Comment on above: Result Comment: Nega tive for Flu A protein angiten. Infection due to Flu A cannot be ruled out. Flu A angiten in the sample may be below the detection limit of the test. Performed By: #### I NFLUAB #### [facility] [address] [place] [address] Dr. Zuly Medina [facility] SEE BELOW Normal [facility] Comment on above: Result Comment: Nega tive for Flu B protein antigen. Infection due to Flu B cannot be ruled out. Flu B antigen in the sample may be below the detection limit of the test. Performed By: #### I NFLUAB #### [facility] [address] [place] [address] Dr. Zuly Medina INFLUENZA A AG Negative Normal NEGATIVE SEE COMMENT [facility] Comment on above: Performed By: #### I NFLUAB #### [facility] [address] [place] [address] Dr. Zuly Medina INFLUENZA B AG Negative Normal NEGATIVE SEE COMMENT [facility] Comment on above: Performed By: #### I NFLUAB #### [facility] [address] [place] [address] Dr. Zuly Medina ECHOCARDIO M/2D COMPLETEon 0 05-14-2022 ECHOCARDIO M/2D COMPLETE Patient: ADRIANNA BUITRAGO Exam Date: 05/14/2022 : 1950 Gender:F Ordering : MELO JENKINS Admission #: [id number] Family : DR JENNY BURRIS . Order #: [id number] CLICK HERE TO VIEW EXAM ECHOCARDIOGRAM REPORT [...] Garcia M.D. on 05/15/2022 at 18:51 Normal [facility] Office Visiton 05-14-2022 Follow-up visit [id number] Shirley Buitrago 1950 F Date Provider Department Center 05/14/2022 3848-MELO JENKINS [facility] No family history on file Level of Service:41656 ID OFFICE/OUTPATIENT ESTABLISHED MOD [facility] 30-39 MIN Reason for Visit and Comments: Hyperlipidemia [182] Valve Disorder [3372] Normal [facility] MG MAMM SCREEN 3D NOEL CADon 01-22-2022 MG MAMM SCREEN 3D NOEL CAD Patient: ADRIANNA BUITRAGO Exam Date: 01/22/2022 : 1950 Gender:F Ordering : DR JENNY BURRIS . Admission #: [id number] Family : Order #: [id number] CLICK HERE TO VIEW EXAM RADIOLOGY REPORT [...] lung cancer at age 59. LOCATION: [facility] BREAST COMPOSITION: Scattered areas fibroglandular density. FINDINGS: [...] Garcia M.D. on 01/22/2022 at 14:36 Normal [facility] CALCIUMon 12-31-2021 Calcium [Mass/Vol] 10.0 mg/dL Normal 8.5-10.1 [facility] Comment on above: Performed By: #### Oliverio SIMS CA #### [facility] [address] [place] [address] Dr. Zuly Medina CREATININEon 12-31-2021 Creatinine [Mass/Vol] 1.33 mg/dL Critically high 0.55-1.02 [facility] Comment on above: Performed By: #### Oliverio SIMS CA #### [facility] [address] [place] [address] Dr. Zuly Medina EGFR-AF JAPANESE 48 mL/min/1.73m2 Critically low >=60 [facility] Comment on above: Performed By: #### Oliverio SIMS CA #### [facility] [address] [place] [address] Dr. Zuly Medina EGFR-NON AF JAPANESE 39 mL/min/1.73m2 Critically low >=60 [facility] Comment on above: Performed By: #### Oliverio SIMS CA #### [facility] [address] [place] [address] Dr. Zuly Medina [facility] 12-06 SARS-CoV-2 (COVID-19) RNA MARY+probe Ql (Unsp spec) Not detected Normal NOT DETECTED [facility] Comment on above: Result Comment: This test is not yet approved or cleared by the [place] FDA. When there are no FDA-approved or cleared tests available, and other criteria are met, FDA can make tests available under an emergency access mechanism called an Emergency Use Authorization (EUA). The EUA for this test is supported by the Collar Folder Operator of Health and Human Service's (HHS's) declaration [...] SARS-CoV-2. Performed By: #### C VDTBH #### [facility] [address] [place] [address] Dr. Zuly Medina T4, T3U, FTI LABCORPon 11-15 Free Thyroxine Index 2.7 Normal 1.2-4.9 [facility] Comment on above: Performed By: #### C VDTBH #### [facility] [address] [place] [address] Dr. Zuly Medina T3 Uptake 32 % Normal 24-39 [facility] Comment on above: Performed By: #### C VDTBH #### [facility] [address] [place] [address] Dr. Zuly Medina T4 [Mass/Vol] 8.5 ug/dL Normal 4.5-12.0 [facility] Comment on above: Performed By: #### C VDTBH #### [facility] [address] [place] [address] Dr. Zuly Medina VIT D 25-OH LABCORPon 2021 Vitamin D, 25-Hydroxy 114.0 ng/mL Critically high 30.0-100.0 [facility] Comment on above: Result Comment: Jenny min D deficiency has been defined by the [place] of Medicine and an Endocrine Society practice guideline as a level of serum 25-OH vitamin D less than 20 ng/mL (1,2). The Endocrine Society went on to further define vitamin D insufficiency as a level between 21 and 29 ng/mL (2). 1. IOM ([place] of Medicine). 2010. Dietary reference intakes for calcium and D. Steve [place]: The National AcademCapitol Bells Press. 2. Anel MF, Chandrika NC, Ronaldo MCCALLUM, et al. Evaluation, treatment, and prevention of vitamin D deficiency: an Endocrine Society clinical practice guideline. JCEM. 2010; 96(7):1911-30. Performed By: #### V ITADLC #### [facility] [address] [place] [address] Dr. Zuly Medina CBC AUTO DIFFon 11-14-2021 BASO # 0.0 103/ul Normal 0.0-0.1 [facility] Comment on above: Performed By: #### CHIDI MCDANIEL #### [facility] [address] [address] [address] Zuly Medina Basophils/100 WBC (Bld) 0.4 % Normal 0.2-2.0 [facility] Comment on above: Performed By: #### CHIDI MCDANIEL #### [facility] [address] [address] [address] Zuly Medina EO # 0.3 103/ul Normal 0.0-0.7 [facility] Comment on above: Performed By: #### CHIDI MCDANIEL #### [facility] [address] [address] [address] Zuly Medina Eosinophils/100 WBC (Bld) 4.1 % Normal 0.9-7.0 [facility] Comment on above: Performed By: #### CHIDI MCDANIEL #### [facility] [address] [address] [address] Zuly Medina Erythrocyte distribution width (RBC) [Ratio] 14.1 % Normal 11.0-15.0 [facility] Comment on above: Performed By: #### CHIDI MCDANIEL #### [facility] [address] [place] [address] Dr. Zuly Medina Hematocrit (Bld) [Volume fraction] 36.0 % Normal 36.0-48.0 [facility] Comment on above: Performed By: #### CHIDI MCDANIEL #### [facility] [address] [place] [address] Dr. Zuly Medina Hemoglobin (Bld) [Mass/Vol] 11.6 g/dL Critically low 12.0-16.0 [facility] Comment on above: Performed By: #### CHIDI MCDANIEL #### [facility] [address] [place] [address] Dr. Zuly Medina IG # 0.01 10e3/ul Normal 0.00-0.03 [facility] Comment on above: Performed By: #### CHIDI MCDANIEL #### [facility] [address] [place] [address] Dr. Zuly Medina IG % 0.1 % Normal 0.0-0.5 [facility] Comment on above: Performed By: #### CHIDI MCDANIEL #### [facility] [address] [place] [address] Dr. Zuly Medina LYMPH # 1.3 103/ul Normal 1.2-3.8 [facility] Comment on above: Performed By: #### CHIDI MCDANIEL #### [facility] [address] [place] [address] Dr. Zuly Medina Lymphocytes/100 WBC (Bld) 19.3 % Critically low 20.5-60.0 [facility] Comment on above: Performed By: #### CHIDI MCDANIEL #### [facility] [address] [place] [address] Dr. Zuly Medina MANUAL DIFF REQ NO Normal [facility] Comment on above: Performed By: #### CHIDI MCDANIEL #### [facility] [address] [place] [address] Dr. Zuly Medina MCH (RBC) [Entitic mass] 31.4 pg Normal 26.7-34.0 [facility] Comment on above: Performed By: #### CHIDI MCDANIEL #### [facility] [address] [place] [address] Dr. Zuly Medina MCHC (RBC) [Mass/Vol] 32.2 g/dL Normal 29.9-35.2 [facility] Comment on above: Performed By: #### CHIDI MCDANIEL #### [facility] [address] [place] [address] Dr. Zuly Medina MCV (RBC) [Entitic vol] 97.6 fL Normal 81.0-99.0 [facility] Comment on above: Performed By: #### CHIDI MCDANIEL #### [facility] [address] [place] [address] Dr. Zuly Medina MONO # 0.8 103/ul Normal 0.3-0.8 [facility] Comment on above: Performed By: #### CHIDI MCDANIEL #### [facility] [address] [place] [address] Dr. Zuly Medina Monocytes/100 WBC (Bld) 11.8 % Normal 1.7-12.0 [facility] Comment on above: Performed By: #### CHIDI MCDANIEL #### [facility] [address] [place] [address] Dr. Zuly Medina NEUT # 4.4 103/ul Normal 1.4-6.5 [facility] Comment on above: Performed By: #### CHIDI MCDANIEL #### [facility] [address] [place] [address] Dr. Zuly Medina Neutrophils/100 WBC (Bld) 64.3 % Normal 43.0-75.0 [facility] Comment on above: Performed By: #### CHIDI MCDANIEL #### [facility] [address] [place] [address] Dr. Zuly Medina Platelet mean volume (Bld) [Entitic vol] 10.1 fL Normal 9.5-13.5 [facility] Comment on above: Performed By: #### CHIDI MCDANIEL #### [facility] [address] [address] [address] Zuly Medina PLT 311 103/ul Normal 150-450 [facility] Comment on above: Performed By: #### C BETHANY CA #### [facility] [address] [address] [address] Zuly Medina RBC 3.69 106/ul Critically low 4.20-5.40 [facility] Comment on above: Performed By: #### Oliverio SIMS CA #### [facility] [address] [address] [address] Zuly Medina WBC 6.9 103/ul Normal 4.0-11.0 [facility] Comment on above: Performed By: #### CHIDI MCDANIEL #### [facility] [address] [address] [address] Zuly Medina GLYCOHEMOGLOBIN A1Con 2021 ADA RECOMMENDATION SEE BELOW Normal [facility] Comment on above: Result Comment: ADA RECOMMENDED LIMIT 4.0 - 6.0 ADA THERAPEUTIC TARGET < 7.0 ACTION SUGGESTED > 7.0 Performed By: #### A 1C #### [facility] [address] [address] [address] Zuly Medina Glucose [Mass/Vol] 103 mg/dL Normal [facility] Comment on above: Performed By: #### A 1C #### [facility] [address] [address] [address] Zuly Medina HbA1c (Bld) [Mass fraction] 5.2 % Normal 4.5-6.2 [facility] Comment on above: Performed By: #### A 1C #### [facility] [address] [address] [address] Zuly Medina IRONon 11-14-2021 Iron [Mass/Vol] 60.0 ug/dL Normal 50.0-170.0 [facility] Comment on above: Performed By: #### C VDTBH #### [facility] [address] [address] [address] Zuly Medina LIPID PROFILEon 11-14-2021 CHOL-HDL RATIO NORM SEE BELOW Normal [facility] Comment on above: Result Comment: 3.3 - 4.4 LOW RISK 4.4 - 7.1 AVERAGE RISK 7.1 - 11.0 MODERATE RISK >11.0 HIGH RISK Performed By: #### Oliverio SIMS [place] #### [facility] [address] [address] [address] Zuly Medina Cholesterol [Mass/Vol] 145 mg/dL Normal <=200 [facility] Comment on above: Performed By: #### Oliverio SIMS, [place] #### [facility] [address] [address] [address] Zuly Medina Cholesterol in HDL [Mass/Vol] 65 mg/dL Critically high 40-60 [facility] Comment on above: Performed By: #### Oliverio SIMS, [place] #### [facility] [address] [address] [address] Zuly Medina Cholesterol in LDL [Mass/Vol] 72.2 mg/dL Normal [facility] Comment on above: Performed By: #### Oliverio SIMS, [place] #### [facility] [address] [address] [address] Zuly Medina Cholesterol.total/Ch olesterol in HDL [Mass ratio] 2.2 {ratio} Normal [facility] Comment on above: Performed By: #### Oliverio SIMS, [place] #### [facility] [address] [address] [address] Zuly Medina HDL NORMAL > or = 60 mg/dl - LO W CARDIOVASCULAR RISK <40 mg/dl - HIGH CARDIOVASCULAR RISK Normal [facility] Comment on above: Performed By: #### Oliverio SIMS, [place] #### [facility] [address] [address] [address] Zuly Medina LDL CALC NORMAL SEE BELOW Normal [facility] Comment on above: Result Comment: <100 mg/dl OPTIMAL 100 - 129 mg/dl NEAR OR ABOVE OPTIMAL 130 - 159 mg/dl BORDERLINE HIGH 160 - 189 mg/dl HIGH >190 mg/dl VERY HIGH Performed By: #### Oliverio SIMS, [place] #### [facility] [address] [address] [address] Zuly Medina Triglyceride [Mass/Vol] 39 mg/dL Normal <=150 [facility] Comment on above: Performed By: #### CHIDI MCDANIEL #### [facility] [address] [place] [address] Dr. Zuly Medina VLDL CALC 7.8 mg/dL Normal [facility] Comment on above: Performed By: #### CHIDI MCDANIEL #### [facility] [address] [place] [address] Dr. Zuly Medina PROF 14(COMP METB)on 022 Albumin [Mass/Vol] 3.8 g/dL Normal 3.4-5.0 [facility] Comment on above: Performed By: #### CHIDI MCDANIEL #### [facility] [address] [place] [address] Dr. Zuly Medina Albumin/Globulin [Mass ratio] 1.4 {ratio} Normal [facility] Comment on above: Performed By: #### CHIDI MCDANIEL #### [facility] [address] [place] [address] Dr. Zuly Medina ALP [Catalytic activity/Vol] 41 U/L Critically low 46-116 [facility] Comment on above: Performed By: #### CHIDI MCDANIEL #### [facility] [address] [place] [address] Dr. Zuly Medina ALT [Catalytic activity/Vol] 20 U/L Normal 14-59 [facility] Comment on above: Performed By: #### Oliverio SIMS [place] #### [facility] [address] [place] [address] Dr. Zuly Medina Anion gap [Moles/Vol] 8.2 mmol/L Normal [facility] Comment on above: Performed By: #### CHIDI MCDANIEL #### [facility] [address] [place] [address] Dr. Zuly Medina AST [Catalytic activity/Vol] 25 U/L Normal 15-37 [facility] Comment on above: Performed By: #### CHIDI MCDANIEL #### [facility] [address] [place] [address] Dr. Zuly Medina Bilirubin [Mass/Vol] 0.4 mg/dL Normal 0.2-1.0 [facility] Comment on above: Performed By: #### CHIDI MCDANIEL #### [facility] [address] [place] [address] Dr. Zuly Medina Calcium [Mass/Vol] 10.1 mg/dL Normal 8.5-10.1 [facility] Comment on above: Performed By: #### CHIDI MCDANIEL #### [facility] [address] [place] [address] Dr. Zuly Medina Chloride [Moles/Vol] 104 mmol/L Normal 98-107 [facility] Comment on above: Performed By: #### Oliverio SIMS [place] #### [facility] [address] [place] [address] Dr. Zuly Medina CO2 [Moles/Vol] 31.6 mmol/L Normal 21.0-32.0 [facility] Comment on above: Performed By: #### CHIDI MCDANIEL #### [facility] [address] [place] [address] Dr. Zuly Medina Creatinine [Mass/Vol] 1.44 mg/dL Critically high 0.55-1.02 [facility] Comment on above: Performed By: #### CHIDI MCDANIEL #### [facility] [address] [place] [address] Dr. Zuly Medina EGFR-AF JAPANESE 43 mL/min/1.73m2 Critically low >=60 [facility] Comment on above: Performed By: #### Oliverio SIMS [place] #### [facility] [address] [place] [address] Dr. Zuly Medina EGFR-NON AF JAPANESE 36 mL/min/1.73m2 Critically low >=60 [facility] Comment on above: Performed By: #### Oliverio SIMS [place] #### [facility] [address] [place] [address] Dr. Zuly Medina Globulin (S) [Mass/Vol] 2.8 g/dL Normal [facility] Comment on above: Performed By: #### C [place], [place] #### [facility] [address] [address] [address] Zuly Medina Glucose [Mass/Vol] 100 mg/dL Normal 74-106 [facility] Comment on above: Performed By: #### Oliverio SIMS [place] #### [facility] [address] [address] [address] Zuly Medina Potassium [Moles/Vol] 3.8 mmol/L Normal 3.5-5.1 [facility] Comment on above: Performed By: #### Oliverio SIMS, [place] #### [facility] [address] [address] [address] Zuly Medina Protein [Mass/Vol] 6.6 g/dL Normal 6.4-8.2 [facility] Comment on above: Performed By: #### Oliverio SIMS [place] #### [facility] [address] [place] [address] Dr. Zuly Medina Sodium [Moles/Vol] 140 mmol/L Normal 136-145 [facility] Comment on above: Performed By: #### Oliverio SIMS [place] #### [facility] [address] [address] [address] Zuly Medina Urea nitrogen [Mass/Vol] 28.0 mg/dL Critically high 7.0-18.0 [facility] Comment on above: Performed By: #### Oliverio SIMS [place] #### [facility] [address] [address] [address] Zuly Medina Urea nitrogen/Creatinine [Mass ratio] 19.4 mg/mg Normal [facility] Comment on above: Performed By: #### Oliverio SIMS [place] #### [facility] [address] [place] [address] Dr. Zuly Medina TSHon 11-14-2021 TSH 1.676 uIU/mL Normal 0.358-3.740 [facility] Comment on above: Performed By: #### Oliverio SIMS [place] #### [facility] [address] [place] [address] Dr. Zuly Medina Covid-19 PCR ([facility])on 10-05 SARS-CoV-2 (COVID-19) RNA MARY+probe Ql (Unsp spec) Not detected Normal NOT DETECTED [facility] Comment on above: Result Comment: When diagnostic [...] for this test is supported by the [place] of Health and Human Service's declaration that [...] used). Performed By: #### C VDTB #### [facility] [address] [place] [address] Dr. Zuly Medina CREATININEon 09-18-2021 Creatinine [Mass/Vol] 1.33 mg/dL Critically high 0.55-1.02 [facility] Comment on above: Performed By: #### C CHIDI SIMS #### [facility] [address] [place] [address] Dr. Zuly Medina EGFR-AF JAPANESE 48 mL/min/1.73m2 Critically low >=60 [facility] Comment on above: Performed By: #### C CHIDI SIMS #### [facility] [address] [place] [address] Dr. Zuly Medina EGFR-NON AF JAPANESE 39 mL/min/1.73m2 Critically low >=60 [facility] Comment on above: Performed By: #### CHIDI MCDANIEL #### [facility] [address] [place] [address] Dr. Zuly Medina MRI BRAIN WO W [...] WEI GARCIA Date: 2021-09-18 16:23 Normal [facility]-05 SARS-CoV-2 (COVID-19) RNA MARY+probe Ql (Unsp spec) Not detected Normal NOT DETECTED [facility] Comment on above: Result Comment: This test is not yet approved or cleared by the [place] FDA. When there are no FDA-approved or cleared tests available, and other criteria are met, FDA can make tests available under an emergency access mechanism called an Emergency Use Authorization (EUA). The EUA for this test is supported by the [place] of Health and Human Service's (HHS's) declaration [...] SARS-CoV-2. Performed By: #### C VDTBH #### [facility] [address] [place] [address] [address] [address] Zuly Medina SYMPTOMATIC COVID-19 ANTIGEN on 08-23-2021 EUA Statement SEE BELOW Normal [facility] Comment on above: Result Comment: This test [...] sooner. Performed By: #### C VDTBH #### [facility] [address] [place], [place] [id number] Dr. Zuly Medina SARS-CoV-2 (COVID-19) RNA MARY+probe Ql (Unsp spec) Negative Normal NEGATIVE [facility] Comment on above: Performed By: #### C VDTBH #### [facility] [address] [place] [address] [address] [address] Zuly Medina Q - Diptheria/Tetanus Abon 0 08-09-2021 DIPHTHERIA ANTITOXOID 0.25 IU/mL Normal [facility] [employer] Comment on above: Order Comment: [facility] performed at: [employer], [employer], [address], [place], [place], , Student Activities Director: Sahil Dyson M.D.,PhD [facility] Date/Time: [facility] [...] analytical performance characteristics have been determined by [employer] [place], [place]. It has not been cleared or approved by the U.S. Food and Drug Administration. This assay has been validated pursuant to the CLIA regulations and is used for clinical purposes. Performed By: #### 2 4729W, 71174I, 62895, 94635Q, 68790M, 93668B #### [facility] [address] [place] [address] TETANUS ANTITOXOID 4.67 IU/mL Normal [facility] [employer] Comment on above: Order Comment: [facility] performed at: [facility], [employer]/[facility], [address], [place], [place], , Student Activities Director: Sahil Dyson M.D.,PhD [facility] Date/Time: [facility] [...] analytical performance characteristics have been determined by [employer] [place], [place]. It has not been cleared or approved by the [place].S. Food and Drug Administration. This assay has been validated pursuant to the CLIA regulations and is used for clinical purposes. Performed By: #### 2 4729W, 47284G, 52608, 41707V, 46527L, 60624F #### [facility] [address] [place] [address] Q - IGA,SERUMon 08-09-2021 IMMUNOGLOBULIN A 125 mg/dL Normal 70-320 [facility] Special[facility] Comment on above: Order Comment: [facility] performed at: [place], [employer] [facility], [address] [facility], [address] [place] [address], [address] [place] [address], Student Activities Director: Thony Haley MD [facility] Date/Time: [facility] Received Date/Time: [facility] Reported Date/Time: Performed By: #### 2 4729W, 40829P, 17978, 99904W, 17167U, 03514T #### [facility] [address] [place] [address] Q - IGE,SERUMon 08-09-2021 IMMUNOGLOBULIN E 44 kU/L Normal [facility] Comment on above: Order Comment: [facility] performed at: [place], [employer] [facility], [address] [facility], [address] [place] [address], [address] [place] [address], Student Activities Director: Thony Haley MD [facility] Date/Time: [facility] Received Date/Time: [facility] Reported Date/Time: Performed By: #### 2 4729W, 02504W, 93290, 07885R, 55285Z, 57192T #### [facility] [address] [place] [address] Q - IGG,SERUMon 08-09-2021 IMMUNOGLOBULIN G 895 mg/dL Normal 600-1540 [facility] [employer] Comment on above: Order Comment: [facility] performed at: [place], [employer] [facility], [address] [facility], [address] [place] [address], [address] [place] [address], Student Activities Director: Thony Haley MD [facility] Date/Time: [facility] Received Date/Time: [facility] Reported Date/Time: Performed By: #### 2 4729W, 57748T, 85680, 78488N, 94472P, 84811D #### [facility] [address] [place] [address] Q - IGM,SERUMon 08-09-2021 IMMUNOGLOBULIN M 158 mg/dL Normal 50-300 [facility] Comment on above: Order Comment: [facility] performed at: Q, [employer], [address], [address] [facility], [place], [address], Student Activities Director: Thony Haley MD [facility] Date/Time: [facility] Received Date/Time: [facility] Reported Date/Time: Performed By: #### 2 4729W, 46203P, 99609, 13392I, 81041H, 06358U #### [facility] [address] [place] [address] Q - Strep pneumo Ab 23 serot ypeson 08-09-2021 SEROTYPE 1 (1) 9.5 Normal [facility] Comment on above: Order Comment: [facility] performed at: [place], [employer]/[facility],, [address] [place] [address], , Student Activities Director: Osiris Galdamez MD,PhD,BHANU [facility] Date/Time: [facility] Received Date/Time: [facility] Reported Date/Time: Performed By: #### 2 4729W, 98857B, 83962, 54336T, 00594B, 68664V #### [facility] [address] [place] [address] SEROTYPE 12 (12F) 1.0 Normal [facility] Comment on above: Order Comment: [facility] performed at: [employer], [employer],, [address] [place], [place], , Student Activities Director: Osiris Galdamez MD,PhD,BHANU [facility] Date/Time: [facility] Received Date/Time: [facility] Reported Date/Time: Performed By: #### 2 4729W, 99398B, 04376, 71511C, 35368S, 21773V #### [facility] [address] [place] [address] SEROTYPE 14 (14) 3.3 Normal [facility] Comment on above: Order Comment: [facility] performed at: [facility], [facility],, [address] [place], [place], , Student Activities Director: Osiris Galdamez MD,PhD,BHANU [facility] Date/Time: [facility] Received Date/Time: [facility] Reported Date/Time: Performed By: #### 2 4729W, 21257I, 95855, 01820P, 86734Z, 57117Q #### [facility] [address] [place] [address] SEROTYPE 17 (17F) 1.2 Normal [facility] Comment on above: Order Comment: [facility] performed at: [place], [facility] [facility],, [address] [place], [place] [address], , Student Activities Director: Osiris Galdamez MD,PhD,BHANU [facility] Date/Time: [facility] Received Date/Time: [facility] Reported Date/Time: Performed By: #### 2 4729W, 96252P, 57974, 84243D, 88689T, 10825T #### [facility] [address] [place] [address] SEROTYPE 19 (19F) 2.8 [facility] Comment on above: Order Comment: [facility] performed at: [place], [employer],, [address] [place], [place], , Student Activities Director: Osiris Galdamez MD,PhD,BHANU [facility] Date/Time: [facility] Received Date/Time: [facility] Reported Date/Time: Performed By: #### 2 4729W, 48444G, 82089, 67402T, 32666G, 35049D #### [facility] [address] [place] [address] SEROTYPE 2 (2) 7.2 Normal [facility] [employer] Comment on above: Order Comment: [facility] performed at: [place], [employer],, [address] [place], [place], , Student Activities Director: Osiris Galdamez MD,PhD,BHANU [facility] Date/Time: [facility] Received Date/Time: [facility] Reported Date/Time: Performed By: #### 2 4729W, 98440P, 63892, 98306I, 23134K, 14478R #### [facility] [address] [place] [address] SEROTYPE 20 (20) 3.4 Normal [facility] Comment on above: Order Comment: [facility] performed at: [facility], [employer],, [facility] [place], [place], , Student Activities Director: Osiris Galdamez MD,PhD,BHANU [facility] Date/Time: [facility] Received Date/Time: [facility] Reported Date/Time: Performed By: #### 2 4729W, 99273S, 17800, 45934X, 22414S, 09614C #### [facility] [address] [place] [address] SEROTYPE 22 (22F) 5.9 Normal [facility] Comment on above: Order Comment: [facility] performed at: [place], [employer],, [address] [place], [place], , Student Activities Director: Osiris Galdamez MD,PhD,BHANU [facility] Date/Time: [facility] Received Date/Time: [facility] Reported Date/Time: Performed By: #### 2 4729W, 45343I, 51753, 25692I, 49050X, 20670G #### [facility] [address] [place] [address] SEROTYPE 23 (23F) 5.2 Normal [facility] Comment on above: Order Comment: [facility] performed at: [place], [employer],, [facility] [place], [place], , Student Activities Director: Osiris Galdamez MD,PhD,BHANU [facility] Date/Time: [facility] Received Date/Time: [facility] Reported Date/Time: Performed By: #### 2 4729W, 17643N, 30920, 62630U, 05696O, 11871I #### [facility] [address] [place] [address] SEROTYPE 26 (6B) 18.8 Normal [facility] Comment on above: Order Comment: [facility] performed at: [place], [employer],, [facility] [place], , Student Activities Director: Osiris Galdamez MD,PhD,BHANU [facility] Date/Time: [facility] Received Date/Time: [facility] Reported Date/Time: Performed By: #### 2 4729W, 42546B, 53582, 18616W, 93094K, 78790K #### [facility] [address] [place] [address] SEROTYPE 3 (3) 1.3 Normal [facility] [employer] Comment on above: Order Comment: [facility] performed at: [place], [employer],, [address] [place] [address], , Student Activities Director: Osiris Galdamez MD,PhD,BHANU [facility] Date/Time: [facility] Received Date/Time: [facility] Reported Date/Time: Performed By: #### 2 4729W, 89027V, 01047, 65260F, 37057Z, 45360U #### [facility] [address] [place] [address] SEROTYPE 34 (10A) 0.9 [facility] Comment on above: Order Comment: [facility] performed at: , [employer]/[facility],, [address] [place] [address], , Student Activities Director: Osiris Galdamez MD,PhD,BHANU [facility] Date/Time: [facility] Received Date/Time: [facility] Reported Date/Time: Performed By: #### 2 4729W, 89546U, 62695, 67894L, 54586T, 16351D #### [facility] [address] [place] [address] SEROTYPE 4 (4) <0.3 [facility] [employer] Comment on above: Order Comment: [facility] performed at: [place], [employer],, [address] [place] [address], , Student Activities Director: Osiris Galdamez MD,PhD,BHANU [facility] Date/Time: [facility] Received Date/Time: [facility] Reported Date/Time: Performed By: #### 2 4729W, 24445J, 12038, 07013P, 14693D, 12792L #### [facility] [address] [place] [address] SEROTYPE 43 (11A) 1.1 [facility] Comment on above: Order Comment: [facility] performed at: [place], [employer],, [address] [place] [address], , Student Activities Director: Osiris Galdamez MD,PhD,BHANU [facility] Date/Time: [facility] Received Date/Time: [facility] Reported Date/Time: Performed By: #### 2 4729W, 20415S, 39544, 96318C, 16339S, 62154Q #### [facility] [address] [place] [address] SEROTYPE 5 (5) 2.3 Normal [facility] Comment on above: Order Comment: [facility] performed at: [employer], [employer],, [address] [place] [address], , Student Activities Director: Osiris Galdamez MD,PhD,BHANU [facility] Date/Time: [facility] Received Date/Time: [facility] Reported Date/Time: Performed By: #### 2 4729W, 20833W, 43262, 08027I, 34103H, 84651X #### [facility] [address] [place] [address] SEROTYPE 51 (7F) 8.4 Normal [facility] Comment on above: Order Comment: [facility] performed at: [place], [employer],, [address] [place] [address], , Student Activities Director: Osiris Galdamez MD,PhD,BHANU [facility] Date/Time: [facility] Received Date/Time: [facility] Reported Date/Time: Performed By: #### 2 4729W, 03590Q, 56041, 04700Q, 89052A, 74996C #### [facility] [address] [place] [address] SEROTYPE 54 (15B) 2.3 Normal [facility] Comment on above: Order Comment: [facility] performed at: [facility], [facility],, [facility] [place], [place], , Student Activities Director: Osiris Galdamez MD,PhD,BHANU [facility] Date/Time: [facility] Received Date/Time: [facility] Reported Date/Time: Performed By: #### 2 4729W, 90687I, 12575, 93556C, 98933C, 71029T #### [facility] [address] [place] [address] SEROTYPE 56 (18C) 18.7 [facility] Comment on above: Order Comment: [facility] performed at: [facility], [facility],, [facility] [place], , Student Activities Director: Osiris Galdamez MD,PhD,BHANU [facility] Date/Time: [facility] Received Date/Time: [facility] Reported Date/Time: Performed By: #### 2 4729W, 30377E, 97664, 79135K, 09538E, 59283L #### [facility] [address] [place] [address] SEROTYPE 57 (19A) 15.6 [facility] Comment on above: Order Comment: [facility] performed at: [facility], [facility],, [address] [place], [place], , Student Activities Director: Osiris Galdamez MD,PhD,BHANU [facility] Date/Time: [facility] Received Date/Time: [facility] Reported Date/Time: Performed By: #### 2 4729W, 74546H, 87172, 88872V, 81373S, 65306U #### [facility] [address] [place] [address] SEROTYPE 68 (9V) 2.1 Normal [facility] Comment on above: Order Comment: [facility] performed at: [employer], [employer],, [address] [place], [place], , Student Activities Director: Osiris Galdamez MD,PhD,BHANU [facility] Date/Time: [facility] Received Date/Time: [facility] Reported Date/Time: Performed By: #### 2 4729W, 36377Q, 55745, 77416G, 87217J, 49513S #### [facility] [address] [place] [address] SEROTYPE 70 (33F) 28.9 Normal [facility] Comment on above: Order Comment: [facility] performed at: [employer], [employer],, [address] [place], [place], , Student Activities Director: Osiris Galdamez MD,PhD,BHANU [facility] Date/Time: [facility] [...] serotype-specific titers may have less robust responses. [employer] uses a multi-analyte immunodetection (MAID) method. The method employs the [employer] flow cytometric system which measures multiple analytes [...] analytical performance characteristics have been determined by [employer]. It has not been cleared or approved by FDA. This assay has been validated pursuant to the CLIA regulations and used for clinical purposes. For additional information, please refer to http://education.Nimble/faq/KXQ008 (This link is being provided for informational/ educational purposes only.) Performed By: #### 2 4729W, 73343Q, 44608, 84389D, 00335P, 73215D #### [facility] Default [address] [place] [address] SEROTYPE 8 (8) 14.6 Normal [facility] Boiler Riveter Comment on above: Order Comment: [facility] Testing performed at: [employer] [facility],, [address] [place] [address], , Student Activities Director: Osiris Galdamez MD,PhD,BHANU [facility] Collection Date/Time: [facility] Results Received Date/Time: [facility] Reported Date/Time: Performed By: #### 2 4729W, 73780X, 77591, 25679X, 30599Q, 31084W #### [facility] [address] [place] [address] SEROTYPE 9 (9N) 1.0 Normal [facility] Boiler Riveter Comment on above: Order Comment: [facility] Testing performed at: [employer] [facility],, [address] [place] [address], , Student Activities Director: Osiris Galdamez MD,PhD,BHANU [facility] Collection Date/Time: [facility] Results Received Date/Time: [facility] Reported Date/Time: Performed By: #### 2 4729W, 62712A, 81207, 33442B, 19824D, 90033R #### [facility] [address] [place] [address] CT SINUSES WO CONon 08-06-19 CT SINUSES [...] by: WEI GARCIA Date: 2021-08-05 08:48 Normal [facility] MG MAMM DX 3D LT CADon 08-05 MG MAMM DX 3D LT CAD Patient: ADRIANNA BUITRAGO Exam Date: 08/05/2021 : 1950 Gender:F Ordering : DR JENNY BURRIS . Admission #: [id number] Family : Order #: [id number] CLICK HERE TO VIEW EXAM RADIOLOGY REPORT [...] lung cancer at age 59. LOCATION: [facility] BREAST COMPOSITION: Scattered areas fibroglandular density. FINDINGS: [...] M.D. on 08/05/2021 at 09:25 Normal [facility] US BREAST LEFT LIMITEDon US BREAST LEFT LIMITED Patient: KATHRYNDENISEADRIANNA Ya Exam Date: 08/05/2021 : 1950 Gender:F Ordering : DR JENNY BURRIS . Admission #: [id number] Family : Order #: [id number] CLICK HERE TO VIEW EXAM RADIOLOGY REPORT [...] lung cancer at age 59. LOCATION: [facility] BREAST COMPOSITION: Scattered areas fibroglandular density. FINDINGS: [...] M.D. on 08/05/2021 at 09:25 Normal [facility] Encounters Encounter Date Encounter Type Care Provider Facility Start: 07-15-2023 End: 07-15-2023 ambulatory KEILA FAITH Not Available Start: 07-02-2023 End: 07-02-2023 ambulatory RENNY ORLANDO Not Available Start: 06-11-2023 End: 06-11-2023 ambulatory RENNY ORLANDO Not Available Start: 06-09-2023 End: 06-10-2023 ambulatory Issa VALE Facility:[facility] Start: 06-02-2023 ambulatory Issa VALE Facility:[facility] Start: 05-28-2023 End: 05-28-2023 ambulatory RENNY ORLANDO Not Available Start: 05-28-2023 ambulatory Issa VALE Facility:[facility] Start: 05-14-2023 Chart abstracting Renny lorenzana DPM Work Phone: [facility] Start: 05-14-2023 End: 05-14-2023 ambulatory RENNY ORLANDO Not Available Start: 04-30-2023 End: 04-30-2023 ambulatory RENNY ORLANDO Not Available Start: 04-10-2023 End: 04-10-2023 ambulatory [facility] Start: 11-25-2022 End: 11-25-2022 ambulatory TEGAN PAIZ [facility] Start: 07-02-2022 End: 07-02-[address] JENNY BURRIS . Facility:[facility] Start: 06-02-2022 End: 06-03-[address] JENNY BURRIS . Facility:[facility] Start: 05-30-2022 End: 05-31-[address] JENNY BURRIS . Facility:[facility] Start: 05-26-2022 End: 05-27-[address] JENNY BURRIS . Facility:[facility] Start: 05-23-2022 End: 05-24-[address] JENNY BURRIS . Facility:[facility] Start: 05-22-2022 End: 05-22-[address] JENNY BURRIS . Facility:[facility] Start: 05-14-2022 End: 05-15-[address] JENNY BURRIS . Facility:[facility] Start: 05-14-2022 End: 05-14-[facility]22 [facility] Start: 01-22-2022 End: 01-23-[address] JENNY BURRIS . Facility:[facility] Start: 12-31-2021 End: 01-01-[address] JENNY BURRIS . Facility:[facility] Start: 12-25-2021 End: 12-25-[address] JENNY BURRIS . Facility:[facility] Start: 11-14-2021 End: 11-15-[address] JENNY BURRIS . Facility:[facility] Start: 11-01-2021 End: 11-01-[address] JENNY BURRIS . Facility:[facility] Start: 09-18-2021 End: 09-19-[address] JENNY BURRIS . Facility:[facility] Start: 08-23-2021 End: 08-23-[address] JENNY BURRIS . Facility:[facility] Start: 08-23-2021 End: 05-20-[address] JENNY BURRIS . Facility: Start: 08-05-2021 End: 08-06-[address] JENNY BURRIS . Facility: Plan of Treatment Date Care Activity Detail Author Start: 12-14-2023 End: 12-14-2023 Patient encounter procedure 12/14/2023 9:20 AM EDT Office Visit [facility] [address] [place] [id number] Keila Faith MD [address] [place] [address] [facility] Start: 05-14-2023 End: 05-14-2023 Patient encounter procedure 05/14/2023 8:40 AM EST Office Visit [facility] [address] [facility] [address] [place] [address] Renny Orlando DPM [address] [facility] [address] [place] [address] [facility] Start: 12-05-2022 Influenza vaccination Influenza Vacc ine (#1) [facility] Start: 10-27-2018 Pneumococcal Vaccine : 65+ Years (2 - PPSV23 or PCV20) Pneumococcal Vaccine: 65+ Years (2 - PPSV23 or PCV20) [facility] Start: 1989 Screening for malign ant neoplasm of breast Mammogram [facility] Start: 1950 Screening for malign ant neoplasm of colon [facility] Payers Date Payer Category Payer Unknown [employer] [id number] 2021-Present [address] [place] [address] [id number] 2014 Medicare MEDICARE MEDICAR E PART B [id number] 2014-Present [address] [address] [place] [address] Medicare [id number] 1959 Medicare [id number] 1959 Unknown [id number] 1950 Unknown [id number] 2.16.840.1.672972.3.579.2.593 1949 Unknown [id number] 2.16.840.1.426560.3.579.2.593 1949 Unknown [id number] 2.16.840.1.485417.3.579.2.593 1949 Unknown [id number] 2.16.840.1.376913.3.579.2.593 1949 Unknown [id number] 2.16.840.1.353346.3.579.2.593 1949 Unknown [id number] 2.16.840.1.874851.3.579.2.593 1949 Unknown [id number] 2.16.840.1.961299.3.579.2.593 1949 Unknown [id number] 2.16.840.1.511740.3.579.2.593 1949 Unknown [id number] 2.16.840.1.451798.3.579.2.593 1949 Unknown [id number] 2.16.840.1.285230.3.579.2.593 1949 Unknown [id number] 2.16.840.1.659909.3.579.2.593 1949 Unknown [id number] 2.16.840.1.166155.3.579.2.593 1949 Unknown [id number] 2.16.840.1.793289.3.579.2.593 1949 Unknown [id number] 2.16.840.1.590419.3.579.2.593 1949 Unknown [id number] 2.16.840.1.149725.3.579.2.593 1949 Unknown [id number] 2.16.840.1.110228.3.579.2.593 1949 Unknown [id number] 2.16.840.1.394410.3.579.2.727 1949 Unknown [id number] 2.16.840.1.339354.3.579.2.1259 1949 Unknown [id number] 2.16.840.1.352347.3.579.2.1259 1949 Unknown [id number] 2.16.840.1.099444.3.579.2.1259 1949 Unknown [id number] 2.16.840.1.583038.3.579.2.1259 1949 Unknown [id number] 2.16.840.1.007261.3.579.2.1259 1949 Unknown [id number] 2.16.840.1.653858.3.579.2.1259 Social History Date Type Detail Facility Start: 04-30-2023 Tobacco smoking stat [facility] Ex-smoker [facility] End: 04-06-2006 History of tobacco use Current smoker [facility] End: 04-06-2006 History of tobacco use Cigarette Smoker [facility] History of tobacco use Passive smoker [facility] Start: 04-30-2023 Tobacco use and exposure Smokeless t obacco non-user [facility] Start: 05-14-2023 Alcohol intake Lifetime non-d hugo (finding) [facility] Start: 04-30-2023 History of Social function [facility] Start: 04-30-2023 Tobacco use panel [facility] Start: 12-12-2022 Alcohol Comment Caffeine intake: non e [facility] Start: 1950 Sex Assigned At Not on file N [facility] Clinical Notes 05-14-2022 to 06-09-2023 Note Date & Type Note Facility 06-09-2023 Note Chief Complaint consultation for colonoscopy HPI Staff 72 year old female presents on consultation from Dr. Burris for surveillance colonoscopy. Last colonoscopy completed 06/2018-normal. Brother with history of colon cancer. Denies abdominal or rectal pain. No rectal bleeding or change in bowel habits. She has chronic constipation for which she takes Lactulose. Denies nausea or vomiting. No unexplained weight loss. History of Present Illness 72 yo female with h/o htn, hyperlipidemia, hypothyroidism, PVD, asthma, migraines, cervical disc disease, referred for screening colonoscopy, patient has fmhx of colon cancer in patient's brother, dx at age 45, denies change in bms or blood in stools, no abd complaints; last colonoscopy 2018 wnl; abd operations significant for SUE with bso; on baby asa daily, no NSAID use; no tobacco use; no fmhx of IBD. Review of Systems PHQ Score Initial Depression Screen Score: 0 SCORE ROS - Provider Constitutional: no fever, no sweats, no weight loss. Eyes: yes glasses, no blurred vision, no visual loss. ENMT: no dentures, no hoarseness, no swallowing difficulties, no hearing loss, no ear infection(s), no nose bleeds. Cardiovascular: normal blood pressure, no chest pain, regular heartbeat, no heart murmur. Respiratory: no shortness of breath, no cough, no asthma, no wheezing. Gastrointestinal: no nausea, no vomiting, no diarrhea, no constipation, no blood in stool, no change in bowel habits, no abdominal pain, no hepatitis. Genitourinary: no kidney stones, no urine infection, no dysuria. Musculoskeletal: no pain, no weakness. Skin: no changing moles, no rash, no skin lumps. Neurologic: no seizures, no epilepsy, no headache. Psychiatric: no emotional or psychiatric problem. Heme/Lymph: no bleeding problems, no anemia, no blood clots, no transfusions. Allergy/Immunologic: no swollen lymph nodes/glands, no IV drug abuse. Other: Additional ROS info: Except as noted in the above Review of Systems and in the History of Present Illness, all other systems have been reviewed and are negative or noncontributory. Physical Exam Vitals & Measurements HR: 49(Peripheral) RR: 16 BP: 118/68 HT: 63 in HT: 160 cm WT: 57.8 kg WT: 127.16 lb BMI: 22.58 HEENT: normal conjunctiva, sclera clear, no scleral icterus, EOM intact, PERRLA, oral mucosa moist without lesions. Neck: trachea midline, no mass, symmetric, no thyromegaly or nodules, no adenopathy Respiratory: lungs CTA, respirations non labored. Cardiovascular: regular rate and rhythm, no murmur, no pedal edema or varicosities. Gastrointestinal: soft, non distended, no tenderness, no masses, no palpable hernias, diastasis recti no, no hepatosplenomegaly; normal bs Lymphatic: no cervical adenopathy, no supraclavicular adenopathy. Musculoskeletal: normal gait, digits and nails without infection, nodes, cyanosis, clubbing. Skin: no rashes, no lesions, no ulcers, no subcutaneous nodules, induration. Psychiatric/Neuro: oriented to time, place, person, judgement normal, affect appropriate for age, insight intact, no focal deficits. Tests: review of old records completed , Discussed surgical options, risks, and possible complications with patient. Assessment/Plan 1. Family history of colon cancer (Z80.0: Family history of malignant neoplasm of digestive organs) plan colonoscopy under anesthesia, informed consent obtained. Follow-up No qualifying data available Problem List/Past Medical History Ongoing Asthma BMI 22.0-22.9, adult Cardiac murmur Cervical disc disease Essential hypertension Family history of colon cancer GERD (gastroesophageal reflux disease) Hypercholesteremia Hyperlipidemia Hypothyroidism Lumbar radiculopathy Migraines Mitral valve insufficiency Osteoporosis PVD (peripheral vascular disease) Tricuspid valve disorder Venous insufficiency Historical No qualifying data Procedure/Surgical History Colonoscopy (2019), Colonoscopy (06/16/2008), Implantation of intraocular lens, Nasal septoplasty, SUE BSO - Total abdominal hysterectomy and bilateral salpingo-oophorectomy. Medications aspirin 81 mg Oral EC Tab, 81 mg= 1 tab(s), Oral, Daily azelastine hydrochloride 137 mcg spray, 2 spray(s), Nasal, Daily Breztri Aerosphere, 2 puff(s), Inhalation, BID budesonide 1 mg/2 mL inhalation suspension, 1 mg= 2 mL, NEB, Daily cetirizine 10 mg Tab, 10 mg= 1 tab(s), Oral, Daily cloNIDine 0.1 mg tab, 0.1 mg= 1 tab(s), Oral, BID Cytomel 5 mcg Tab, 5 mcg= 1 tab(s), Oral, Daily fenofibrate 160 mg oral tablet, 160 mg= 1 tab(s), Oral, Daily Flonase 0.05 mg/inh [place], 2 spray(s), Nasal, Daily lactulose 10 g/15 mL Oral Syrup, 20 gm= 30 mL, Oral, BID Lasix 20 mg Tab, 20 mg= 1 tab(s), Oral, Daily levothyroxine 100 mcg (0.1 mg) Tab, 100 mcg= 1 tab(s), Oral, Daily Multi Vitamins oral tablet, 1 tab(s), Oral, Daily omeprazole 40 mg Cap-DR, 40 mg= 1 cap(s), Oral, Daily potassium chloride 10 mEq ER Tab, 10 mEq= 1 tab(s (more content not included)... [facility] Comment on above: Result Comment: Elec tronically Signed By: KAVIN FRANKLIN, Issa Hi\Date and Time Signed: 06/09/23 08:28 EST 04-10-2023 Note Cardiology Follow Up Progress Note [...] nostril in the morning and at bedtime. rrxkjmoaxp-jrrbrpqk-uuomqhwpic (Breztri Aerosphere) 160-9-4.8 mcg/actuation HFA aerosol inhaler [...] as needed Melo Jenkins MD Interventional Cardiology Univer (more content not included)... [facility] 04-10-2023 Note Patient here for 6 m [...] All other systems reviewed and are negative. [facility] 11-25-2022 Note Remains stable, ches t pain resolved and no acute concerns currently [facility] 11-25-2022 Note Current echo 05/2022- Mild MR and no concerning symptoms currently [facility] 11-25-2022 Note Current echo 05/2022- Mild MR and no concerning symptoms currently [facility] 11-25-2022 Note Continue pravastatin 10 mg daily and fenofibrate- pt states PCP orders her annual labs F/U with PCP [facility] 11-25-2022 Note UTP CARDIOLOGY PROGR ESS NOTE [...] Prior to Visit Medication Sig Dispense Refill fjehbqgvpk-ishepuwg-xksrnzemmp (Breztri Aerosphere) 160-9-4.8 mcg/actuation HFA aerosol inhaler [...] no acute concerns currently RTC 4-6 months [facility] 05-26-2022 Note CARDIAC STRESS TEST Requesting Physician: Procedure Date:05/26/2022 This is a treadmill stress test with myocardial perfusion imaging, performed at the [facility] on 05/26/2022. Informed consent was obtained. The [...] +7.5 is associated with low risk for fpc cardiac events. 4. Myocardial perfusion images will be reported separately. [facility] 05-14-2022 Note Cardiology Follow Up Progress Note [...] Prior to Visit Medication Sig Dispense Refill zwcolynnrc-gysvpyeg-ofueeoiuei (Breztri Aerosphere) 160-9-4.8 mcg/actuation HFA aerosol inhaler [...] red flag symptoms. (more content not included)... [facility] 05-14-2022 Note Patient here for 6 m o follow up valve regurgitation and hyperlipidemia. C/o intermittent chest pressure. She says sometimes she takes aspirin to relieve the pain if it lasts more then a few minutes. Occurs at rest, as well as exercise, but she states it's no worse with exercise. [facility] Summary Purpose Family History No Family History Records FoundNo Family History Records FoundNo Family History Records FoundNo Family History Records FoundNo Family History Records Found Advance Directives No Advanced Directives Records FoundNo Advanced Directives Records FoundNo Advanced Directives Records FoundNo Advanced Directives Records FoundNo Advanced Directives Records Found Additional Source Comments INFORMATION SOURCE (unrecogn ized section and content) DATE CREATED AUTHOR 08/17/2021 [facility] dical Specialist DATE CREATED AUTHOR AUTHOR'S ORGANIZ ATION 07/05/2022 [facility] DATE CREATED AUTHOR AUTHOR'S ORGANIZ ATION 05/11/2023 [facility] DATE CREATED AUTHOR AUTHOR'S ORGANIZ ATION 06/10/2023 [facility] DATE CREATED AUTHOR AUTHOR'S ORGANIZ ATION 07/16/2023 [facility] dical Specialists EPIC Care Teams (unrecognized sec tion and content) [employer] Relationship Specialty Start Date End Date Jenny Burris MD [address] [place] [id number] PCP - General Family Medicine 04/30/23 FOR RECORDS PERTAINING TO PATIENTS WHO ARE [...] BE BASED ON THE PRIMARY CLINICAL RECORDS. [employer] [facility]. provides no warranty or guarantee of the accuracy or completeness of information in this document.
== END 2023-07-29 10:44 | disposition home or self-care (01) ==
LOC: RAD 10:43
PROVIDERS: PCP Family Medicine; Visit Provider Family Medicine
DX: M81.0 Age-related osteoporosis without current pathological fracture (principal); M85.80 Other specified disorders of bone density and structure, unspecified site
CPT/HCPCS: 77080

== ENCOUNTER 2023-08-05 08:26 | Day surgery (SDC) | payer MEDICARE, OTHER, SELFPAY ==
--- NOTE | 2023-08-05 | OP_ITS ---
OPERATION DATE: 08/05/2023 PREOPERATIVE DIAGNOSIS: Family history of colon cancer. POSTOPERATIVE DIAGNOSIS: Normal colonoscopy to cecum, except for redundant colon. PROCEDURE: Colonoscopy to cecum. SURGEON: Issa Espinoza M.D. ANESTHESIA: Monitored anesthesia care. ESTIMATED BLOOD LOSS: Zero. INDICATIONS AND CONSENT: Patient is a 72-year-old female with a family history of colon cancer, presents for surveillance colonoscopy. Indications, risks, benefits, alternatives of proceeding with colonoscopy were explained extensively to the patient, including the risks of bleeding, colon perforation or anesthetic complications. All of her questions were answered. Informed consent was obtained. PROCEDURE: Patient was brought to the operating room, placed in the left lateral decubitus position. Monitored anesthesia care was provided. Rectal exam was performed which showed no masses or blood. The scope was inserted into the anal canal. Under direct visualization was advanced. There were noted to be sharp bends, as well as redundant colon. The scope was switched to a pediatric scope, was then able to be advanced to the cecum, where cecal markings were clearly identified. There was noted to be a good prep. Upon withdrawal of the scope, mucosal surfaces were carefully examined. There were no mass lesions or polyps. No inflammatory changes or ulcerations. No significant diverticulosis. The scope was retroflexed in the anal canal. There was no significant hemorrhoidal disease. Scope was then withdrawn. Patient tolerated procedure well, was sent to recovery room in good condition.f/u colonoscopy in 10 years since no h/o polyps. CC: Yenny Serrano
--- OUTSIDE RECORDS SUMMARY | 2023-08-05 08:49 | XMS_ITS | CCD ---
Demographics Address [facility] [address] [place] [address] Preferred Language en Marital Status Episcopalian Affiliation Unknown Race White Ethnic Group Not or Lati no Author Organization [facility] Care Team Providers Care Civil Engineer'S Aide Name Role Phone HOY ., DR ALVARADO [...] Unavailable Jenny Burris MD Primary Care Provider [phone] Issa VALE Attending Unavailable RENNY ORLANDO Attending Unavailable RENNY ORLANDO Attending Unavailable RENNY ORLANDO Attending Unavailable RENYN ORLANDO Attending Unavailable RENNY ORLANDO Attending Unavailable KEILA FAITH Attending Unavailable Allergies Allergy Classification Reported Allergen(s) Allergy Type Date of Onset Reaction(s) Facility (2 sources) Amoxicillin; Translations: [AMOXICILLIN] Drug Allergy 3 [facility] Repository (3 sources) Morphine; Translations: [MORPHINE] Drug Allergy 3 [facility] Repository (1 source) Amoxicillin Drug Allergy 3 Itching, Other, Unknown [facility] (1 source) Mold Extract Drug Allergy 4 Unknown [facility] (1 source) Morphine Drug Allergy 3 Itching, Other [facility] (1 source) Penicillin; Translations: [penicillin] Drug Allergy [facility] Repository (1 source) No Known Medication Allergies; Translations: [No Known Medication Allergies] Propensity to adverse reactions (disorder) [facility] Repository Medications Current Medications Medication Drug [...] 11 01/05/2023 01/05/2024 Active 168 hr cloNIDine 0.50087 mg/hr transdermal system (1 source) Central alpha-2 [...] for Procedure/Surger yon 06-10-2023 Consent for Procedure/Surgery [id number] 0TIFF Normal [facility] Ambulatory Visit Summaryon 0 06-09-2023 Ambulatory [...] oral tablet) fluticasone nasal (Flonase 0.05 mg/inh [place]) furosemide (Lasix 20 mg Tab) lactulose (lactulose [...] Unchanged fluticasone nasal (Flonase 0.05 mg/ inh [place]) 2 Sprays Nasal Inhalation Every day Contact [...] for choosing us for your care. Normal [facility] Physician Referralon 024 Physician Referral [id number] 20 [id number] 0TIFF [facility] Office Visiton 04-10-2023 Follow-up visit [id number] BuitragoShirley ly D 1950 F Date Provider Department Center 04/10/2023 3848-MELO JENKINS [facility] No family history on file Level of Service:77464 SD OFFICE/OUTPATIENT ESTABLISHED LOW MDM 20 MIN Normal [facility] Office Visiton 11-25-2022 Follow-up visit [id number] BuitragoShirley ly D 1950 F Date Provider Department Center 11/25/2022 120-TEGAN PAIZ PEDRO [facility] No family history on file Level of Service:34830 SD OFFICE/OUTPATIENT ESTABLISHED MOD MDM 30-39 MIN Normal [facility] CALCIUMon 07-02-2022 Calcium [Mass/Vol] 9.8 mg/dL Normal 8.5-10.1 [facility] Comment on above: Performed By: #### C A, CREA #### [facility] [address] [place] [address] Dr. Zuly Medina CREATININEon 07-02-2022 Creatinine [Mass/Vol] 1.41 mg/dL Critically high 0.55-1.02 [facility] Comment on above: Performed By: #### C A, CREA #### [facility] [address] [place] [address] Dr. Zuly Medina EGFR-AF TOGOLESE 44 mL/min/1.73m2 Critically low >=60 [facility] Comment on above: Performed By: #### C A, CREA #### [facility] [address] [place] [address] Dr. Zuly Medina EGFR-NON AF TOGOLESE 37 mL/min/1.73m2 Critically low >=60 [facility] Comment on above: Performed By: #### C Frank, CREA #### [facility] [address] [place] [address] Dr. Zuly Medina MRI LSPINE WO CONon [...] TESSA ESTEVES Date: 2022-06-02 07:58 Normal [facility] VC VENOUS REFLUX NOEL LMTon 0 05-30-2022 VC VENOUS REFLUX NOEL LMT Patient: ADRIANNA BUITRAGO Exam Date: 05/30/2022 : 1950 Gender:F Ordering : DR JENNY BURRIS . Admission #: [id number] Family : Order #: [id number] CLICK HERE TO VIEW EXAM RADIOLOGY REPORT [...] thrombus. Compressibility: Normal. Flow: Deep venous reflux. Model And Dye Person: Tech Note: Proximal medial lower leg varicose [...] Esteves MD on 05/30/2022 at 11:20 Normal [facility] STRESS/REST MULTIon 05-26 DE STRESS/REST MULTI Patient: ADRIANNA BUITRAGODexter Exam Date: 05/26/2022 : 1950 Gender:F Ordering : MELO JENKINS Admission #: [id number] Family : DR JENNY BURRIS . Order #: [id number] CLICK HERE TO VIEW EXAM RADIOLOGY REPORT [...] Garcia M.D. on 05/27/2022 at 13:00 Normal [facility] XR LSPINE MIN 4 VIEWSon 05-07 [...] WEI GARCIA Date: 2022-05-23 14:32 Normal [facility] Covid-19 PCR (CVDTBH)on 05-07 SARS-CoV-2 (COVID-19) RNA MARY+probe Ql (Unsp spec) Not detected Normal NOT DETECTED [facility] Comment on above: Result Comment: This test is not yet approved or cleared by the [place] FDA. When there are no FDA-approved or cleared tests available, and other criteria are met, FDA can make tests available under an emergency access mechanism called an Emergency Use Authorization (EUA). The EUA for this test is supported by the [place] of Health and Human Service's (HHS's) declaration [...] SARS-CoV-2. Performed By: #### C VDTB #### [facility] [address] [place] [address] Dr. Zuly Medina INFLUENZA A AND B AGon 05-22 [facility] SEE BELOW Normal [facility] Comment on above: Result Comment: Nega tive for Flu A protein angiten. Infection due to Flu A cannot be ruled out. Flu A angiten in the sample may be below the detection limit of the test. Performed By: #### I NFLUAB #### [facility] [address] [place] [address] [facility] SEE BELOW Normal [facility] Comment on above: Result Comment: Nega tive for Flu B protein antigen. Infection due to Flu B cannot be ruled out. Flu B antigen in the sample may be below the detection limit of the test. Performed By: #### I NFLUAB #### [facility] [address] [place] [address] Dr. Zuly Medina INFLUENZA A AG Negative Normal NEGATIVE SEE COMMENT [facility] Comment on above: Performed By: #### I NFLUAB #### [facility] [address] [place] [address] Dr. Zuly Medina INFLUENZA B AG Negative Normal NEGATIVE SEE COMMENT [facility] Comment on above: Performed By: #### I NFLUAB #### [facility] [address] [place] [address] Dr. Zuly Medina ECHOCARDIO M/2D COMPLETEon 0 05-14-2022 ECHOCARDIO M/2D COMPLETE Patient: ADRIANNA BUITRAGO Exam Date: 05/14/2022 : 1950 Gender:F Ordering : MELO JENKINS Admission #: [id number] Family : DR JENNY BURRIS . Order #: [id number] CLICK HERE TO VIEW EXAM ECHOCARDIOGRAM REPORT [...] Garcia M.D. on 05/15/2022 at 18:51 Normal [facility] Office Visiton 05-14-2022 Follow-up visit [id number] Shirley Buitrago 1950 F Date Provider Department Center 05/14/2022 3848-MELO JENKINS [facility] No family history on file Level of Service:41785 SD OFFICE/OUTPATIENT ESTABLISHED MOD [facility] 30-39 MIN Reason for Visit and Comments: Hyperlipidemia [182] Valve Disorder [3372] Normal [facility] MG MAMM SCREEN 3D NOEL CADon 01-22-2022 MG MAMM SCREEN 3D NOEL CAD Patient: ADRIANNA BUITRAGO Exam Date: 01/22/2022 : 1950 Gender:F Ordering : DR JENNY BURRIS . Admission #: [id number] Family : Order #: [id number] CLICK HERE TO VIEW EXAM RADIOLOGY REPORT [...] lung cancer at age 59. LOCATION: [facility] BREAST COMPOSITION: Scattered areas fibroglandular density. FINDINGS: [...] Garcia M.D. on 01/22/2022 at 14:36 Normal [facility] CALCIUMon 12-31-2021 Calcium [Mass/Vol] 10.0 mg/dL Normal 8.5-10.1 [facility] Comment on above: Performed By: #### Oliverio SIMS [place] #### [facility] [address] [place] [address] Dr. Zuly Medina CREATININEon 12-31-2021 Creatinine [Mass/Vol] 1.33 mg/dL Critically high 0.55-1.02 [facility] Comment on above: Performed By: #### Oliverio SIMS [place] #### [facility] [address] [place] [address] Dr. Zuly Medina EGFR-AF TOGOLESE 48 mL/min/1.73m2 Critically low >=60 [facility] Comment on above: Performed By: #### Oliverio SIMS [place] #### [facility] [address] [place] [address] Dr. Zuly Medina EGFR-NON AF TOGOLESE 39 mL/min/1.73m2 Critically low >=60 [facility] Comment on above: Performed By: #### Oliverio SIMS [place] #### [facility] [address] [place] [address] Dr. Zuly Medina [facility]on [facility]-06 SARS-CoV-2 (COVID-19) RNA MARY+probe Ql (Unsp spec) Not detected Normal NOT DETECTED [facility] Comment on above: Result Comment: This test is not yet approved or cleared by the [place] FDA. When there are no FDA-approved or cleared tests available, and other criteria are met, FDA can make tests available under an emergency access mechanism called an Emergency Use Authorization (EUA). The EUA for this test is supported by the [place] of Health and Human Service's (HHS's) declaration [...] SARS-CoV-2. Performed By: #### C VDTBH #### [facility] [address] [place] [address] Dr. Zuly Medina T4, T3U, FTI [facility]on 11-15 Free Thyroxine Index 2.7 Normal 1.2-4.9 [facility] Comment on above: Performed By: #### C VDTBH #### [facility] [address] [place] [address] Dr. Zuly Medina T3 Uptake 32 % Normal 24-39 [facility] Comment on above: Performed By: #### C VDTBH #### [facility] [address] [place] [address] Dr. Zuly Medina T4 [Mass/Vol] 8.5 ug/dL Normal 4.5-12.0 [facility] Comment on above: Performed By: #### C VDTBH #### [facility] [address] [place] [address] Dr. Zuly Medina VIT D 25-OH [facility] 2021 Vitamin D, 25-Hydroxy 114.0 ng/mL Critically high 30.0-100.0 [facility] Comment on above: Result Comment: Jenny min D deficiency has been defined by the [place] of [employer] and an Endocrine Society practice guideline as a level of serum 25-OH vitamin D less than 20 ng/mL (1,2). The Endocrine Society went on to further define vitamin D insufficiency as a level between 21 and 29 ng/mL (2). 1. IOM ([place] of Medicine). 2010. Dietary reference intakes for calcium and D. Steve [place]: The National AcademArkadium Press. 2. Anel MF, Chandrika NC, Ronaldo MCCALLUM, et al. Evaluation, treatment, and prevention of vitamin D deficiency: an Endocrine Society clinical practice guideline. JCEM. 2010; 96(7):1911-30. Performed By: #### V ITADLC #### [facility] [address] [place] [address] Dr. Zuly Medina CBC AUTO DIFFon 11-14-2021 BASO # 0.0 103/ul Normal 0.0-0.1 [facility] Comment on above: Performed By: #### CHIDI MCDANIEL #### [facility] [address] [address] [address] Zuly Medina Basophils/100 WBC (Bld) 0.4 % Normal 0.2-2.0 [facility] Comment on above: Performed By: #### CHIDI MCDANIEL #### [facility] [address] [address] [address] Zuly Medina EO # 0.3 103/ul Normal 0.0-0.7 [facility] Comment on above: Performed By: #### CHIDI MCDANIEL #### [facility] [address] [address] [address] Zuly Medina Eosinophils/100 WBC (Bld) 4.1 % Normal 0.9-7.0 [facility] Comment on above: Performed By: #### CHIDI MCDANIEL #### [facility] [address] [address] [address] Zuly Medina Erythrocyte distribution width (RBC) [Ratio] 14.1 % Normal 11.0-15.0 [facility] Comment on above: Performed By: #### CHIDI MCDANIEL #### [facility] [address] [place] [address] Dr. Zuly Medina Hematocrit (Bld) [Volume fraction] 36.0 % Normal 36.0-48.0 [facility] Comment on above: Performed By: #### CHIDI MCDANIEL #### [facility] [address] [place] [address] Dr. Zuly Medina Hemoglobin (Bld) [Mass/Vol] 11.6 g/dL Critically low 12.0-16.0 [facility] Comment on above: Performed By: #### CHIDI MCDANIEL #### [facility] [address] [place] [address] Dr. Zuly Medina IG # 0.01 10e3/ul Normal 0.00-0.03 [facility] Comment on above: Performed By: #### CHIDI MCDANIEL #### [facility] [address] [place] [address] Dr. Zuly Medina IG % 0.1 % Normal 0.0-0.5 [facility] Comment on above: Performed By: #### CHIDI MCDANIEL #### [facility] [address] [place] [address] Dr. Zuly Medina LYMPH # 1.3 103/ul Normal 1.2-3.8 [facility] Comment on above: Performed By: #### CHIDI MCDANIEL #### [facility] [address] [place] [address] Dr. Zuly Medina Lymphocytes/100 WBC (Bld) 19.3 % Critically low 20.5-60.0 [facility] Comment on above: Performed By: #### CHIDI MCDANIEL #### [facility] [address] [place] [address] Dr. Zuly Medina MANUAL DIFF REQ NO Normal [facility] Comment on above: Performed By: #### CHIDI MCDANIEL #### [facility] [address] [place] [address] Dr. Zuly Medina MCH (RBC) [Entitic mass] 31.4 pg Normal 26.7-34.0 [facility] Comment on above: Performed By: #### CHIDI MCDANIEL #### [facility] [address] [place] [address] Dr. Zuly Medina MCHC (RBC) [Mass/Vol] 32.2 g/dL Normal 29.9-35.2 [facility] Comment on above: Performed By: #### CHIDI MCDANIEL #### [facility] [address] [place] [address] Dr. Zuly Medina MCV (RBC) [Entitic vol] 97.6 fL Normal 81.0-99.0 [facility] Comment on above: Performed By: #### CHIDI MCDANIEL #### [facility] [address] [place] [address] Dr. Zuly Medina MONO # 0.8 103/ul Normal 0.3-0.8 [facility] Comment on above: Performed By: #### CHIDI MCDANIEL #### [facility] [address] [place] [address] Dr. Zuly Medina Monocytes/100 WBC (Bld) 11.8 % Normal 1.7-12.0 [facility] Comment on above: Performed By: #### CHIDI MCDANIEL #### [facility] [address] [place] [address] Dr. Zuly Medina NEUT # 4.4 103/ul Normal 1.4-6.5 [facility] Comment on above: Performed By: #### CHIDI MCDANIEL #### [facility] [address] [place] [address] Dr. Zuly Medina Neutrophils/100 WBC (Bld) 64.3 % Normal 43.0-75.0 [facility] Comment on above: Performed By: #### CHIDI MCDANIEL #### [facility] [address] [place] [address] Dr. Zuly Medina Platelet mean volume (Bld) [Entitic vol] 10.1 fL Normal 9.5-13.5 [facility] Comment on above: Performed By: #### CHIDI MCDANIEL #### [facility] [address] [address] [address] Zuly Medina PLT 311 103/ul Normal 150-450 [facility] Comment on above: Performed By: #### C BETHANY CA #### [facility] [address] [address] [address] Zuly Medina RBC 3.69 106/ul Critically low 4.20-5.40 [facility] Comment on above: Performed By: #### Oliverio SIMS CA #### [facility] [address] [address] [address] Zuly Medina WBC 6.9 103/ul Normal 4.0-11.0 [facility] Comment on above: Performed By: #### CHIDI MCDANIEL #### [facility] [address] [address] [address] Zuly Medina GLYCOHEMOGLOBIN A1Con 2021 ADA RECOMMENDATION SEE BELOW Normal [facility] Comment on above: Result Comment: ADA RECOMMENDED LIMIT 4.0 - 6.0 ADA THERAPEUTIC TARGET < 7.0 ACTION SUGGESTED > 7.0 Performed By: #### A 1C #### [facility] [address] [address] [address] Zuly Medina Glucose [Mass/Vol] 103 mg/dL Normal [facility] Comment on above: Performed By: #### A 1C #### [facility] [address] [address] [address] Zuly Medina HbA1c (Bld) [Mass fraction] 5.2 % Normal 4.5-6.2 [facility] Comment on above: Performed By: #### A 1C #### [facility] [address] [address] [address] Zuly Medina IRONon 11-14-2021 Iron [Mass/Vol] 60.0 ug/dL Normal 50.0-170.0 [facility] Comment on above: Performed By: #### C VDTBH #### [facility] [address] [address] [address] Zuly Medina LIPID PROFILEon 11-14-2021 CHOL-HDL RATIO NORM SEE BELOW Normal [facility] Comment on above: Result Comment: 3.3 - 4.4 LOW RISK 4.4 - 7.1 AVERAGE RISK 7.1 - 11.0 MODERATE RISK >11.0 HIGH RISK Performed By: #### Oliverio SIMS CA #### [facility] [address] [address] [address] Zuly Medina Cholesterol [Mass/Vol] 145 mg/dL Normal <=200 [facility] Comment on above: Performed By: #### Oliverio SIMS, [place] #### [facility] [address] [address] [address] Zuly Medina Cholesterol in HDL [Mass/Vol] 65 mg/dL Critically high 40-60 [facility] Comment on above: Performed By: #### Oliverio SIMS, [place] #### [facility] [address] [address] [address] Zuly Medina Cholesterol in LDL [Mass/Vol] 72.2 mg/dL Normal [facility] Comment on above: Performed By: #### Oliverio SIMS, [place] #### [facility] [address] [address] [address] Zuly Medina Cholesterol.total/Ch olesterol in HDL [Mass ratio] 2.2 {ratio} Normal [facility] Comment on above: Performed By: #### Oliverio SIMS, [place] #### [facility] [address] [address] [address] Zuly Medina HDL NORMAL > or = 60 mg/dl - LO W CARDIOVASCULAR RISK <40 mg/dl - HIGH CARDIOVASCULAR RISK Normal [facility] Comment on above: Performed By: #### Oliverio SIMS, [place] #### [facility] [address] [address] [address] Zuly Medina LDL CALC NORMAL SEE BELOW Normal [facility] Comment on above: Result Comment: <100 mg/dl OPTIMAL 100 - 129 mg/dl NEAR OR ABOVE OPTIMAL 130 - 159 mg/dl BORDERLINE HIGH 160 - 189 mg/dl HIGH >190 mg/dl VERY HIGH Performed By: #### Oliverio SIMS, [place] #### [facility] [address] [address] [address] Zuly Medina Triglyceride [Mass/Vol] 39 mg/dL Normal <=150 [facility] Comment on above: Performed By: #### CHIDI MCDANIEL #### [facility] [address] [place] [address] Dr. Zuly Medina VLDL CALC 7.8 mg/dL Normal [facility] Comment on above: Performed By: #### CHIDI MCDANIEL #### [facility] [address] [place] [address] Dr. Zuly Medina PROF 14(COMP METB)on 022 Albumin [Mass/Vol] 3.8 g/dL Normal 3.4-5.0 [facility] Comment on above: Performed By: #### CHIDI MCDANIEL #### [facility] [address] [place] [address] Dr. Zuly Medina Albumin/Globulin [Mass ratio] 1.4 {ratio} Normal [facility] Comment on above: Performed By: #### CHIDI MCDANIEL #### [facility] [address] [place] [address] Dr. Zuly Medina ALP [Catalytic activity/Vol] 41 U/L Critically low 46-116 [facility] Comment on above: Performed By: #### CHIDI MCDANIEL #### [facility] [address] [place] [address] Dr. Zuly Medina ALT [Catalytic activity/Vol] 20 U/L Normal 14-59 [facility] Comment on above: Performed By: #### Oliverio SIMS CA #### [facility] [address] [place] [address] Dr. Zuly Medina Anion gap [Moles/Vol] 8.2 mmol/L Normal [facility] Comment on above: Performed By: #### CHIDI MCDANIEL #### [facility] [address] [place] [address] Dr. Zuly Medina AST [Catalytic activity/Vol] 25 U/L Normal 15-37 [facility] Comment on above: Performed By: #### CHIDI MCDANIEL #### [facility] [address] [place] [address] Dr. Zuly Medina Bilirubin [Mass/Vol] 0.4 mg/dL Normal 0.2-1.0 [facility] Comment on above: Performed By: #### CHIDI MCDANIEL #### [facility] [address] [place] [address] Dr. Zuly Medina Calcium [Mass/Vol] 10.1 mg/dL Normal 8.5-10.1 [facility] Comment on above: Performed By: #### CHIDI MCDANIEL #### [facility] [address] [place] [address] Dr. Zuly Medina Chloride [Moles/Vol] 104 mmol/L Normal 98-107 [facility] Comment on above: Performed By: #### Oliverio SIMS CA #### [facility] [address] [place] [address] Dr. Zuly Medina CO2 [Moles/Vol] 31.6 mmol/L Normal 21.0-32.0 [facility] Comment on above: Performed By: #### CHIDI MCDANIEL #### [facility] [address] [place] [address] Dr. Zuly Medina Creatinine [Mass/Vol] 1.44 mg/dL Critically high 0.55-1.02 [facility] Comment on above: Performed By: #### CHIDI MCDANIEL #### [facility] [address] [place] [address] Dr. Zuly Medina EGFR-AF TOGOLESE 43 mL/min/1.73m2 Critically low >=60 [facility] Comment on above: Performed By: #### Oliverio SIMS CA #### [facility] [address] [place] [address] Dr. Zuly Medina EGFR-NON AF TOGOLESE 36 mL/min/1.73m2 Critically low >=60 [facility] Comment on above: Performed By: #### Oliverio SIMS CA #### [facility] [address] [place] [address] Dr. Zuly Medina Globulin (S) [Mass/Vol] 2.8 g/dL Normal [facility] Comment on above: Performed By: #### C BETHANY, [place] #### [facility] [address] [address] [address] Zuly Medina Glucose [Mass/Vol] 100 mg/dL Normal 74-106 [facility] Comment on above: Performed By: #### Oliverio SIMS [place] #### [facility] [address] [address] [address] Zuly Medina Potassium [Moles/Vol] 3.8 mmol/L Normal 3.5-5.1 [facility] Comment on above: Performed By: #### Oliverio SIMS, [place] #### [facility] [address] [address] [address] Zuly Medina Protein [Mass/Vol] 6.6 g/dL Normal 6.4-8.2 [facility] Comment on above: Performed By: #### Oliverio SIMS CA #### [facility] [address] [place] [address] Dr. Zuly Medina Sodium [Moles/Vol] 140 mmol/L Normal 136-145 [facility] Comment on above: Performed By: #### Oliverio SIMS [place] #### [facility] [address] [address] [address] Zuly Medina Urea nitrogen [Mass/Vol] 28.0 mg/dL Critically high 7.0-18.0 [facility] Comment on above: Performed By: #### Oliverio SMIS [place] #### [facility] [address] [address] [address] Zuly Medina Urea nitrogen/Creatinine [Mass ratio] 19.4 mg/mg Normal [facility] Comment on above: Performed By: #### Oliverio SIMS [place] #### [facility] [address] [place] [address] Dr. Zuly Medina TSHon 11-14-2021 TSH 1.676 uIU/mL Normal 0.358-3.740 [facility] Comment on above: Performed By: #### Oliverio SIMS [place] #### [facility] [address] [place] [address] Dr. Zuly Medina Covid-19 PCR ([facility])on 10-05 SARS-CoV-2 (COVID-19) RNA MARY+probe Ql (Unsp spec) Not detected Normal NOT DETECTED [facility] Comment on above: Result Comment: When diagnostic [...] for this test is supported by the [place] of Health and Human Service's declaration that [...] used). Performed By: #### C VDTB #### [facility] [address] [place] [address] Dr. Zuly Medina CREATININEon 09-18-2021 Creatinine [Mass/Vol] 1.33 mg/dL Critically high 0.55-1.02 [facility] Comment on above: Performed By: #### C CHIDI SIMS #### [facility] [address] [place] [address] Dr. Zuly Medina EGFR-AF TOGOLESE 48 mL/min/1.73m2 Critically low >=60 [facility] Comment on above: Performed By: #### C CHIDI SIMS #### [facility] [address] [place] [address] Dr. Zuly Medina EGFR-NON AF TOGOLESE 39 mL/min/1.73m2 Critically low >=60 [facility] Comment on above: Performed By: #### CHIDI MCDANIEL #### [facility] [address] [place] [address] Dr. Zuly Medina MRI BRAIN WO W [...] WEI GARCIA Date: 2021-09-18 16:23 Normal [facility]on [facility]-05 SARS-CoV-2 (COVID-19) RNA MARY+probe Ql (Unsp spec) Not detected Normal NOT DETECTED [facility] Comment on above: Result Comment: This test is not yet approved or cleared by the [place] FDA. When there are no FDA-approved or cleared tests available, and other criteria are met, FDA can make tests available under an emergency access mechanism called an Emergency Use Authorization (EUA). The EUA for this test is supported by the [place] of Health and Human Service's (HHS's) declaration [...] SARS-CoV-2. Performed By: #### C VDTBH #### [facility] [address] [place] [address] [address] [address] Zuly Medina SYMPTOMATIC COVID-19 ANTIGEN on 08-23-2021 EUA Statement SEE BELOW Normal [facility] Comment on above: Result Comment: This [...] sooner. Performed By: #### C VDTBH #### [facility] [address] [place], [place] [id number] Dr. Zuly Medina SARS-CoV-2 (COVID-19) RNA MARY+probe Ql (Unsp spec) Negative Normal NEGATIVE [facility] Comment on above: Performed By: #### C VDTBH #### [facility] [address] [place] [address] [address] [address] Zuly Medina Q - Diptheria/Tetanus Abon 0 08-09-2021 DIPHTHERIA ANTITOXOID 0.25 IU/mL Normal [facility]er Agent Comment on above: Order Comment: [facility] performed at: [employer], [employer], [address], [place], [place], , Ostomy Nurse: Sahil Dyson M.D.,PhD [facility] Date/Time: [facility] [...] analytical performance characteristics have been determined by [employer] [place], [place]. It has not been cleared or approved by the U.S. Food and Drug Administration. This assay has been validated pursuant to the CLIA regulations and is used for clinical purposes. Performed By: #### 2 4729W, 86643Q, 91437, 14429N, 84169Q, 90673Z #### [facility] [address] [place] [address] TETANUS ANTITOXOID 4.67 IU/mL Normal [place] [place] [facility] Comment on above: Order Comment: [facility] performed at: [facility], [employer], [address], [place], [place], , Ostomy Nurse: Sahil Dyson M.D.,PhD [facility] Date/Time: [facility] [...] analytical performance characteristics have been determined by [employer] [place]. It has not been cleared or approved by the U.S. Food and Drug Administration. This assay has been validated pursuant to the CLIA regulations and is used for clinical purposes. Performed By: #### 2 4729W, 26982O, 92723, 72462F, 56592P, 54427F #### [facility] [address] [place] [address] Q - IGA,SERUMon 08-09-2021 IMMUNOGLOBULIN A 125 mg/dL Normal 70-320 [facility] Specialist Comment on above: Order Comment: [facility] performed at: [employer], [employer] [facility], [address], [address] [place] [address], [address] [place] [address], Ostomy Nurse: Thony Haley MD [facility] Date/Time: [facility] Results Received Date/Time: [facility] Reported Date/Time: Performed By: #### 2 4729W, 88728Y, 14253, 14404G, 43308S, 37845C #### [facility] [address] [place] [address] Q - IGE,SERUMon 08-09-2021 IMMUNOGLOBULIN E 44 kU/L Normal [facility] Comment on above: Order Comment: [facility] performed at: [employer], [employer] [facility], [address], [address] [place] [address], [address] [place] [address], Ostomy Nurse: Thony Haley MD [facility] Date/Time: [facility] Results Received Date/Time: [facility] Reported Date/Time: Performed By: #### 2 4729W, 71645U, 25244, 31612H, 92753X, 36757V #### [facility] [address] [place] [address] Q - IGG,SERUMon 08-09-2021 IMMUNOGLOBULIN G 895 mg/dL Normal 600-1540 [facility] Buyer Agent Comment on above: Order Comment: [facility] performed at: [employer], [employer] [facility], [address], [address] [place] [address], [address] [place] [address], Ostomy Nurse: Thony Haley MD [facility] Date/Time: [facility] Results Received Date/Time: [facility] Reported Date/Time: Performed By: #### 2 4729W, 94806C, 13699, 54281U, 61741F, 97566F #### [facility] [address] [place] [address] Q - IGM,SERUMon 08-09-2021 IMMUNOGLOBULIN M 158 mg/dL Normal 50-300 [facility] Comment on above: Order Comment: [facility] performed at: Q, [employer] [facility], [address], [address] [facility], [place], [address], Ostomy Nurse: Thony Haley MD [facility] Date/Time: [facility] Results Received Date/Time: [facility] Reported Date/Time: Performed By: #### 2 4729W, 51559Q, 01307, 73399E, 02579J, 70624E #### [facility] [address] [place] [address] Q - Strep pneumo Ab 23 serot ypeson 08-09-2021 SEROTYPE 1 (1) 9.5 Normal [facility] Specialist Comment on above: Order Comment: [facility] performed at: [employer], [employer] [facility],, [address] [place] [address], , Ostomy Nurse: Osiris Galdamez MD,PhD,BHANU [facility] Date/Time: [facility] Results Received Date/Time: [facility] Reported Date/Time: Performed By: #### 2 4729W, 95585J, 94999, 32798T, 88476M, 64397Z #### [facility] [address] [place] [address] SEROTYPE 12 (12F) 1.0 Normal [facility] Comment on above: Order Comment: [facility] performed at: [employer], [employer] [facility],, [address] [place], [place], , Ostomy Nurse: Osiris Galdamez MD,PhD,BHANU [facility] Date/Time: [facility] Results Received Date/Time: [facility] Reported Date/Time: Performed By: #### 2 4729W, 62346Q, 01041, 30748B, 12279H, 77638W #### [facility] [address] [place] [address] SEROTYPE 14 (14) 3.3 Normal [facility] Comment on above: Order Comment: [facility] performed at: [facility], [employer] [facility],, [address] [place], [place], , Ostomy Nurse: Osiris Galdamez MD,PhD,BHANU [facility] Date/Time: [facility] Results Received Date/Time: [facility] Reported Date/Time: Performed By: #### 2 4729W, 75421K, 18686, 24480C, 21685V, 26355L #### [facility] [address] [place] [address] SEROTYPE 17 (17F) 1.2 Normal [facility] Comment on above: Order Comment: [facility] performed at: [employer], [employer] [facility] [facility],, [address] [place], [place] [address], , Ostomy Nurse: Osiris Galdamez MD,PhD,BHANU [facility] Date/Time: [facility] Results Received Date/Time: [facility] Reported Date/Time: Performed By: #### 2 4729W, 50295T, 63370, 30059W, 27563R, 89643X #### [facility] [address] [place] [address] SEROTYPE 19 (19F) 2.8 [facility] Comment on above: Order Comment: [facility] performed at: [employer], [employer] [facility] [facility],, [address] [place], [place], , Ostomy Nurse: Osiris Galdamez MD,PhD,BHANU [facility] Date/Time: [facility] Results Received Date/Time: [facility] Reported Date/Time: Performed By: #### 2 4729W, 04585H, 31487, 56516B, 25586A, 76736W #### [facility] [address] [place] [address] SEROTYPE 2 (2) 7.2 Normal [facility] Agent Comment on above: Order Comment: [facility] performed at: [employer], [employer] [facility],, [address] [place], [place], , Ostomy Nurse: Osiris Galdamez MD,PhD,BHANU [facility] Date/Time: [facility] Results Received Date/Time: [facility] Reported Date/Time: Performed By: #### 2 4729W, 53287K, 98596, 24992H, 85437J, 53223W #### [facility] [address] [place] [address] SEROTYPE 20 (20) 3.4 Normal [facility]ist Comment on above: Order Comment: [facility] performed at: [employer], [employer] [facility] [facility],, [facility] [place], , Ostomy Nurse: Osiris Galdamez MD,PhD,BHANU [facility] Date/Time: [facility] Results Received Date/Time: [facility] Reported Date/Time: Performed By: #### 2 4729W, 15746V, 60246, 03431H, 12258V, 65018I #### [facility] [address] [place] [address] SEROTYPE 22 (22F) 5.9 Normal [facility] Comment on above: Order Comment: [facility] performed at: [employer], [employer] [facility] [facility],, [address] [place], [place], , Ostomy Nurse: Osiris Galdamez MD,PhD,BHANU [facility] Date/Time: [facility] Results Received Date/Time: [facility] Reported Date/Time: Performed By: #### 2 4729W, 29073Y, 08361, 56631P, 95273P, 77961O #### [facility] [address] [place] [address] SEROTYPE 23 (23F) 5.2 Normal [facility] Comment on above: Order Comment: [facility] performed at: [facility], [employer] [facility],, [facility] [place], , Ostomy Nurse: Osiris Galdamez MD,PhD,BHANU [facility] Date/Time: [facility] Results Received Date/Time: [facility] Reported Date/Time: Performed By: #### 2 4729W, 09479L, 64264, 95488Q, 33633A, 31527I #### [facility] Default [address] [place] [address] SEROTYPE 26 (6B) 18.8 Normal [facility] Comment on above: Order Comment: [facility] performed at: [employer], [employer] [facility],, [facility] [place], , Ostomy Nurse: Osiris Galdamez MD,PhD,BHANU [facility] Date/Time: [facility] Results Received Date/Time: [facility] Reported Date/Time: Performed By: #### 2 4729W, 06558V, 90775, 79888R, 59221B, 48976W #### [facility] [address] [place] [address] SEROTYPE 3 (3) 1.3 Normal [facility]er Agent Comment on above: Order Comment: [facility] performed at: [employer], [employer] [facility],, [address] [place] [address], , Ostomy Nurse: Osiris Galdamez MD,PhD,BHANU [facility] Date/Time: [facility] Results Received Date/Time: [facility] Reported Date/Time: Performed By: #### 2 4729W, 62853J, 69737, 89275G, 68579K, 74227F #### [facility] Default [address] [place] [address] SEROTYPE 34 (10A) 0.9 [facility] Comment on above: Order Comment: [facility] performed at: , [employer],, [address] [place] [address], , Ostomy Nurse: Osiris Galdamez MD,PhD,BHANU [facility] Date/Time: [facility] Results Received Date/Time: [facility] Reported Date/Time: Performed By: #### 2 4729W, 19827A, 78516, 48775R, 32288Y, 72483I #### [facility] Default [address] [place] [address] SEROTYPE 4 (4) <0.3 [facility] Buyer Agent Comment on above: Order Comment: [facility] performed at: [facility], [employer] [facility],, [address] [place] [address], , Ostomy Nurse: Osiris Galdamez MD,PhD,BHANU [facility] Date/Time: [facility] Results Received Date/Time: [facility] Reported Date/Time: Performed By: #### 2 4729W, 47101K, 21238, 18964A, 09371V, 45521F #### [facility] Default [address] [place] [address] SEROTYPE 43 (11A) 1.1 [facility] Buyer Agent Comment on above: Order Comment: [facility] performed at: [facility], [employer],, [address] [place] [address], , Ostomy Nurse: Oisris Galdamez MD,PhD,BHANU [facility] Date/Time: [facility] Results Received Date/Time: [facility] Reported Date/Time: Performed By: #### 2 4729W, 63601H, 44500, 95685I, 28706Q, 60105U #### [facility] Default [address] [place] [address] SEROTYPE 5 (5) 2.3 Normal [facility]er Agent Comment on above: Order Comment: [facility] performed at: [employer], [employer] [facility],, [address] [place] [address], , Ostomy Nurse: Osiris Galdamez MD,PhD,BHANU [facility] Date/Time: [facility] Results Received Date/Time: [facility] Reported Date/Time: Performed By: #### 2 4729W, 16500J, 41602, 78083D, 26670J, 18421W #### [facility] Default [address] [place] [address] SEROTYPE 51 (7F) 8.4 Normal [facility] Buyer Agent Comment on above: Order Comment: [facility] performed at: [facility], [employer] [facility],, [address] [place] [address], , Ostomy Nurse: Osiris Galdamez MD,PhD,BHANU [facility] Date/Time: [facility] Results Received Date/Time: [facility] Reported Date/Time: Performed By: #### 2 4729W, 98984G, 41102, 54126S, 78014D, 35185Z #### [facility] Default [address] [place] [address] SEROTYPE 54 (15B) 2.3 Normal [facility] [place] Buyer Agent Comment on above: Order Comment: [facility] performed at: [facility], [facility],, [facility] [place], , Ostomy Nurse: Osiris Galdamez MD,PhD,BHANU [facility] Date/Time: [facility] Results Received Date/Time: [facility] Reported Date/Time: Performed By: #### 2 4729W, 31935G, 10144, 57547A, 18753S, 64809G #### [facility] [address] [place] [address] SEROTYPE 56 (18C) 18.7 [facility] Comment on above: Order Comment: [facility] performed at: [employer], [facility],, [facility] [place], , Ostomy Nurse: Osiris Galdamez MD,PhD,BHANU [facility] Date/Time: [facility] Results Received Date/Time: [facility] Reported Date/Time: Performed By: #### 2 4729W, 61740N, 67710, 66694A, 44048R, 21230H #### [facility] Default [address] [place] [address] SEROTYPE 57 (19A) 15.6 [facility] Comment on above: Order Comment: [facility] performed at: [employer], [employer] [facility],, [address] [place], [place], , Ostomy Nurse: Osiris Galdamez MD,PhD,BHANU [facility] Date/Time: [facility] Results Received Date/Time: [facility] Reported Date/Time: Performed By: #### 2 4729W, 13844B, 72883, 61043T, 64469D, 26117W #### [facility] [address] [place] [address] SEROTYPE 68 (9V) 2.1 Normal [facility] Comment on above: Order Comment: [facility] performed at: [employer], [employer] [facility],, [address] [place], [place], , Ostomy Nurse: Osiris Galdamez MD,PhD,BHANU [facility] Date/Time: [facility] Results Received Date/Time: [facility] Reported Date/Time: Performed By: #### 2 4729W, 39552E, 68881, 46446V, 61624G, 37124B #### [facility] Default [address] [place] [address] SEROTYPE 70 (33F) 28.9 Normal [facility] Comment on above: Order Comment: [facility] performed at: [employer], [employer] [facility],, [address] [place], [place], , Ostomy Nurse: Osiris Galdamez MD,PhD,BHANU [facility] Date/Time: [facility] [...] serotype-specific titers may have less robust responses. [employer] uses a multi-analyte immunodetection (MAID) method. The method employs the [employer] flow cytometric system which measures multiple analytes [...] analytical performance characteristics have been determined by [employer]. It has not been cleared or approved by FDA. This assay has been validated pursuant to the CLIA regulations and used for clinical purposes. For additional information, please refer to http://education.[employer]/faq/NSK401 (This link is being provided for informational/ educational purposes only.) Performed By: #### 2 4729W, 23377S, 46973, 01163E, 93721F, 22703G #### [facility] [address] [place] [address] SEROTYPE 8 (8) 14.6 Normal [facility] Comment on above: Order Comment: [facility] performed at: [employer] [facility],, [address] [place] [address], , Ostomy Nurse: Osiris Galdamez MD,PhD,BHANU [facility] Date/Time: [facility] Results Received Date/Time: [facility] Reported Date/Time: Performed By: #### 2 4729W, 64505V, 25572, 45179U, 52496U, 91057N #### [facility] [address] [place] [address] SEROTYPE 9 (9N) 1.0 Normal [facility] Buyer Agent Comment on above: Order Comment: [facility] performed at: [employer] [facility],, [address] [place] [address], , Ostomy Nurse: Osiris Galdamez MD,PhD,BHANU [facility] Date/Time: [facility] Results Received Date/Time: [facility] Reported Date/Time: Performed By: #### 2 4729W, 45299Q, 18873, 49589C, 86077A, 91200M #### [facility] Default [address] [place] [address] CT SINUSES WO CONon 08-06-19 CT SINUSES [...] by: WEI GARCIA Date: 2021-08-05 08:48 Normal [facility] MG MAMM DX 3D LT CADon 08-05 MG MAMM DX 3D LT CAD Patient: ADRIANNA BUITRAGO Exam Date: 08/05/2021 : 1950 Gender:F Ordering : DR JENNY BURRIS . Admission #: [id number] Family : Order #: [id number] CLICK HERE TO VIEW EXAM RADIOLOGY REPORT [...] lung cancer at age 59. LOCATION: [facility] BREAST COMPOSITION: Scattered areas fibroglandular density. FINDINGS: [...] M.D. on 08/05/2021 at 09:25 Normal [facility] US BREAST LEFT LIMITEDon US BREAST LEFT LIMITED Patient: KATHRYNDENISEADRIANNA Ya Exam Date: 08/05/2021 : 1950 Gender:F Ordering : DR JENNY BURRIS . Admission #: [id number] Family : Order #: [id number] CLICK HERE TO VIEW EXAM RADIOLOGY REPORT [...] lung cancer at age 59. LOCATION: [facility] BREAST COMPOSITION: Scattered areas fibroglandular density. FINDINGS: [...] M.D. on 08/05/2021 at 09:25 Normal [facility] Encounters Encounter Date Encounter Type Care Provider [...] Chart abstracting Renny lorenzana DPM Work Phone: [facility] Start: 05-14-2023 End: 05-14-2023 ambulatory RENNY ORLANDO Not Available Start: 04-30-2023 End: 04-30-2023 ambulatory RENNY ORLANDO Not Available Start: 04-10-2023 End: 04-10-2023 ambulatory [facility] Start: 11-25-2022 End: 11-25-2022 ambulatory TEGAN PAIZ [facility] Start: 07-02-2022 End: 07-02-[address] [...] . Facility:[facility] Start: 05-14-2022 End: [facility]14[facility] Start: 01-22-2022 End: 01-23-[address] [...] Facility:[facility] Start: 08-23-2021 End: 08-23-[address] EJNNY BURRIS . Facility:[facility] Start: 08-23-2021 End: 05-20-[address] JENNY BURRIS . Facility: Start: 08-05-2021 End: 08-06-[address] JENNY BURRIS . Facility: Plan of Treatment Date Care Activity Detail Author Start: 12-14-2023 End: 12-14-2023 Patient encounter procedure 12/14/2023 9:20 AM EDT Office Visit [facility] [address] [place] [id number] Keila Faith MD [address] [place] [address] [facility] Start: 05-14-2023 End: 05-14-2023 Patient encounter procedure 05/14/2023 8:40 AM EST Office Visit [facility] [address] [facility] [address] [place] [address] Renny Orlando DPM [address] [facility] [address] [place] [address] [facility] Start: 12-05-2022 Influenza vaccination [...] Payer Unknown [employer] [id number] 2021-Present [address] [place] [address] [id number] 2014 Medicare MEDICARE MEDICAR E PART B [id number] 2014-Present [address] [address] [place] [address] Medicare [id number] 1959 Medicare [id number] 1959 Unknown [id number] 1950 Unknown [id number] 2.16.840.1.505429.3.579.2.593 1950 Unknown [id number] 2.16.840.1.516040.3.579.2.593 1950 Unknown [id number] 2.16.840.1.145767.3.579.2.593 1949 Unknown [id number] 2.16.840.1.846621.3.579.2.593 1949 Unknown [id number] 2.16.840.1.123785.3.579.2.593 1949 Unknown [id number] 2.16.840.1.065756.3.579.2.593 1949 Unknown [id number] 2.16.840.1.524258.3.579.2.593 1949 Unknown [id number] 2.16.840.1.103218.3.579.2.593 1949 Unknown [id number] 2.16.840.1.060921.3.579.2.593 1949 Unknown [id number] 2.16.840.1.302217.3.579.2.593 1949 Unknown [id number] 2.16.840.1.638173.3.579.2.593 1949 Unknown [id number] 2.16.840.1.792318.3.579.2.593 1949 Unknown [id number] 2.16.840.1.361765.3.579.2.593 1949 Unknown [id number] 2.16.840.1.946180.3.579.2.593 1949 Unknown [id number] 2.16.840.1.476937.3.579.2.593 1949 Unknown [id number] 2.16.840.1.061782.3.579.2.593 1949 Unknown [id number] 2.16.840.1.739181.3.579.2.727 1949 Unknown [id number] 2.16.840.1.160796.3.579.2.1259 1949 Unknown [id number] 2.16.840.1.380405.3.579.2.1259 1949 Unknown [id number] 2.16.840.1.300629.3.579.2.1259 1949 Unknown [id number] 2.16.840.1.460724.3.579.2.1259 1949 Unknown [id number] 2.16.840.1.212733.3.579.2.1259 1949 Unknown [id number] 2.16.840.1.443882.3.579.2.1259 Social History Date Type Detail Facility Start: 04-30-2023 Tobacco smoking stat [facility] Ex-smoker [facility] End: 04-06-2006 History of tobacco use Current smoker [facility] End: 04-06-2006 History of tobacco use Cigarette Smoker [facility] History of tobacco use Passive [...] Sex Assigned At Not on file N [facility] Clinical Notes 05-14-2022 to 06-09-2023 Note [...] 1 tab(s), Oral, Daily Flonase 0.05 mg/inh [place], 2 spray(s), Nasal, Daily lactulose 10 g/15 [...] mEq= 1 tab(s (more content not included)... [facility] Comment on above: Result Comment: Elec [...] nostril in the morning and at bedtime. cpijwrlmsp-bgbcnfcl-ivncppdkag (Breztri Aerosphere) 160-9-4.8 mcg/actuation HFA aerosol inhaler [...] Interventional Cardiology Univer (more content not included)... [facility] 04-10-2023 Note Patient here for 6 [...] All other systems reviewed and are negative. [facility] 11-25-2022 Note Remains stable, ches t pain resolved and no acute concerns currently [facility] 11-25-2022 Note Current echo 05/2022- Mild MR and no concerning symptoms currently [facility] 11-25-2022 Note Current echo 05/2022- Mild MR and no concerning symptoms currently [facility] 11-25-2022 Note Continue pravastatin 10 mg daily and fenofibrate- pt states PCP orders her annual labs F/U with PCP [facility] 11-25-2022 Note UTP CARDIOLOGY PROGR ESS [...] Prior to Visit Medication Sig Dispense Refill jhnxrftzqj-xuegdgcz-ixlbjmgujt (Breztri Aerosphere) 160-9-4.8 mcg/actuation HFA aerosol inhaler [...] no acute concerns currently RTC 4-6 months [facility] 05-26-2022 Note CARDIAC STRESS TEST Requesting Physician: Procedure Date:05/26/2022 This is a treadmill stress test with myocardial perfusion imaging, performed at the [facility] on 05/26/2022. Informed consent was obtained. The [...] +7.5 is associated with low risk for halfway cardiac events. 4. Myocardial perfusion images will be reported separately. [facility] 05-14-2022 Note Cardiology Follow Up Progress Note [...] Prior to Visit Medication Sig Dispense Refill tiocwoletj-owwbkqco-tjzhusuiuz (Breztri Aerosphere) 160-9-4.8 mcg/actuation HFA aerosol inhaler [...] red flag symptoms. (more content not included)... [facility] 05-14-2022 Note Patient here for 6 m o follow up valve regurgitation and hyperlipidemia. C/o intermittent chest pressure. She says sometimes she takes aspirin to relieve the pain if it lasts more then a few minutes. Occurs at rest, as well as exercise, but she states it's no worse with exercise. [facility] Summary Purpose Family History No Family History Records FoundNo Family History Records FoundNo Family History Records FoundNo Family History Records FoundNo Family History Records Found Advance Directives No Advanced Directives Records FoundNo Advanced Directives Records FoundNo Advanced Directives Records FoundNo Advanced Directives Records FoundNo Advanced Directives Records Found Additional Source Comments INFORMATION SOURCE (unrecogn ized section and content) DATE CREATED AUTHOR 08/17/2021 [facility] dical Specialist DATE CREATED AUTHOR AUTHOR'S ORGANIZ ATION 07/05/2022 [facility] DATE CREATED AUTHOR AUTHOR'S ORGANIZ ATION 05/11/2023 [facility] DATE CREATED AUTHOR AUTHOR'S ORGANIZ ATION 06/10/2023 [facility] DATE CREATED AUTHOR AUTHOR'S ORGANIZ ATION 07/16/2023 [facility] dical Specialists EPIC Care Teams (unrecognized sec tion and content) Civil Engineer'S Aide Relationship Specialty Start Date End Date Jenny Burris MD [address] [place] [id number] PCP - General Family Medicine 04/30/23 FOR [...] BE BASED ON THE PRIMARY CLINICAL RECORDS. [employer] [facility]. provides no warranty or guarantee of the accuracy or completeness of information in this document.
[2023-08-05 08:51] VITALS: BP 137/68; PULSE 60; TEMP 36.1; O2SAT 96; BMI 23.1
[2023-08-05] MEDS: LACTATED RINGER'S SOLUTION 1,000 ML 50 ML IV (09:01)
[2023-08-05 11:47] VITALS: BP 158/64; PULSE 77; O2SAT 100
[2023-08-05 12:09] VITALS: BP 126/59; PULSE 62; O2SAT 99
== END 2023-08-05 12:19 | disposition home or self-care (01) ==
PROVIDERS: PCP Family Medicine; Visit Provider Surgery
PROC: (CPT G0105; principal; 2023-08-05 09:45)
DX: Z12.11 Encounter for screening for malignant neoplasm of colon (principal); Z80.0 Family history of malignant neoplasm of digestive organs; Q43.8 Other specified congenital malformations of intestine; I10 Essential (primary) hypertension; J45.909 Unspecified asthma, uncomplicated; K59.09 Other constipation; E78.00 Pure hypercholesterolemia, unspecified; M54.16 Radiculopathy, lumbar region; E03.9 Hypothyroidism, unspecified; M81.0 Age-related osteoporosis without current pathological fracture; I73.9 Peripheral vascular disease, unspecified; Z90.710 Acquired absence of both cervix and uterus; Z79.82 Long term (current) use of aspirin; Z79.899 Other long term (current) drug therapy
CPT/HCPCS: G0105; J2704

== ENCOUNTER 2023-11-26 09:16 | Outpatient (OUT) | payer MEDICARE, OTHER, SELFPAY ==
--- OUTSIDE RECORDS SUMMARY | 2023-11-26 09:36 | XMS_ITS | CCD ---
Demographics Address [address] [place] [address] Preferred Language en Marital Status Denominational Affiliation Unknown Race White Ethnic Group Not or Lati no Author Organization [facility] Care Team Providers Care X Ray Equipment Servicer Name Role Phone HOY ., DR ALVARADO [...] Unavailable HOY ., DR ALVARADO Admazucena Unavailable ZIEBER, DR WEI [employer] Unavailable [...] Unavailable Jenny Burris MD Primary Care Provider [phone] Issa VALE Attending Unavailable NILLIssa Attending Unavailable RENNY ORLANDO A Attending Unavailable RENNY ORLANDO A Attending Unavailable RENNY ORLANDO A Attending Unavailable BROWNCIRORENNY A Attending Unavailable BROWNCIRORENNY A Attending Unavailable RAMBASEK, KEILA E Attending Unavailable BROWN RENNY A Attending Unavailable RAMBASEK, KEILA E Attending Unavailable Allergies Allergy Classification Reported Allergen(s) Allergy Type Date of Onset Reaction(s) Facility (2 sources) Amoxicillin; Translations: [AMOXICILLIN] Drug Allergy 3 [facility] Repository (3 sources) Morphine; Translations: [MORPHINE] Drug Allergy 3 [facility]ository (1 source) Amoxicillin Drug Allergy 3 Itching, Other, Unknown [facility] (1 source) Mold Extract Drug Allergy 4 Unknown [facility] (1 source) Morphine Drug Allergy 3 Itching, Other [facility] (1 source) Penicillin; Translations: [penicillin] Drug Allergy [facility] Repository (1 source) No Known Medication Allergies; Translations: [No Known Medication Allergies] Propensity to adverse reactions (disorder) [facility] Repository Medications Current Medications Medication Drug [...] 11 01/05/2023 01/05/2024 Active 168 hr cloNIDine 0.41024 mg/hr transdermal system (1 source) Central alpha-2 [...] Test Name Value Interpretation Reference Range Facility Outside Colonoscopyon 2023 Outside Colonoscopy [id number]#1.0 0TIFF [facility] Reminderson 08-07-2023 Reminders - From: Kandi Cesar LPN To: N - Clinical; Sent: 08/07/2023 07:59:01 EDT Show up: 07/06/2033 07:59:00 EDT Subject: colonoscopy recall Due Date/Time: 08/04/2033 07:00:00 EDT Reminder/Recall If patient is in good health, she is due for screening colonoscopy 08/04/2033. [facility] Consent for Procedure/Surger yon 06-10-2023 Consent for Procedure/Surgery [id number]#[id number] 0TIFF [facility] Ambulatory Visit Summaryon 0 06-09-2023 Ambulatory Visit Summary ADRIANNA BUITRAGO :1950 Visit Date:06/09/2023 Ambulatory Visit Instructions Your Diagnosis Family history of colon cancer Your Care Team Attending Physician - KAVIN FRANKLINIssa Primary Care Physician - Jenny Burris MD [...] oral tablet) fluticasone nasal (Flonase 0.05 mg/inh [place]) furosemide (Lasix 20 mg Tab) lactulose (lactulose 10 g/15 mL Oral Syrup) levothyroxine (levothyroxine 100 mcg (0.1 mg) Tab) liothyronine (Cytomel 5 mcg Tab) omeprazole (omeprazole 40 mg Cap-DR) potassium chloride (potassium chloride 10 mEq ER Tab) pravastatin (pravastatin 10 mg Tab) ubrogepant (Ubrelvy 100 mg oral tablet) Procedures Performed Colonoscopy (2018), Colonoscopy (06/16/2008), Implantation of intraocular lens, Nasal [...] Unchanged fluticasone nasal (Flonase 0.05 mg/ inh [place]) 2 Sprays Nasal Inhalation Every day Contact [...] you for choosing us for your care. [facility] Physician Referralon 024 Physician Referral [id number]#1.0 0TIFF Normal [facility] Office Visiton 04-10-2023 Follow-up visit [id number] Shirley Buitrago ly D 1950 F Date Provider Department Center 04/10/2023 3848-MELO JENKINS [facility] No family history on file Level of Service:86641 [place] OFFICE/OUTPATIENT ESTABLISHED LOW MDM 20 MIN Normal [facility] Office Visiton 11-25-2022 Follow-up visit [id number] Shirley Buitrago ly D 1950 F Date Provider Department Center 11/25/2022 120-TEGAN PAIZ [facility] No family history on file Level of Service:70236 [place] OFFICE/OUTPATIENT ESTABLISHED MOD MDM 30-39 MIN Normal [facility] CALCIUMon 07-02-2022 Calcium [Mass/Vol] 9.8 mg/dL Normal 8.5-10.1 [facility] Comment on above: Performed By: #### C A, CREA #### [facility] [address] [address] [address] Zuly Medina CREATININEon 07-02-2022 Creatinine [Mass/Vol] 1.41 mg/dL Critically high 0.55-1.02 [facility] Comment on above: Performed By: #### C A, CREA #### [facility] [address] [address] [address] Zuly Medina EGFR-AF NAMIBIAN 44 mL/min/1.73m2 Critically low >=60 [facility] Comment on above: Performed By: #### C A, CREA #### [facility] [address] [address] [address] Zuly Medina EGFR-NON AF NAMIBIAN 37 mL/min/1.73m2 Critically low >=60 [facility] Comment on above: Performed By: #### C A, CREA #### [facility] [address] [place] [address] Dr. Zuly Medina MRI LSPINE WO CONon [...] by: TESSA ESTEVES Date: 2022-06-02 07:58 Normal [facility] VC VENOUS REFLUX NOEL LMTon 0 05-30-2022 VC VENOUS REFLUX NOEL LMT Patient: ADRIANNA BUITRAGO Exam Date: 05/30/2022 : 1950 Gender:F Ordering : DR JENNY BURRIS . Admission #: [id number] Family : Order #: [id number] CLICK HERE TO VIEW EXAM RADIOLOGY REPORT [...] thrombus. Compressibility: Normal. Flow: Deep venous reflux. 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 Order #: [id number] CLICK HERE TO VIEW EXAM RADIOLOGY REPORT [...] Garcia M.D. on 05/27/2022 at 13:00 Normal [facility] XR LSPINE MIN 4 VIEWSon 05-07 [...] WEI GARCIA Date: 2022-05-23 14:32 Normal [facility]-07 SARS-CoV-2 (COVID-19) RNA MARY+probe Ql (Unsp spec) Not detected Normal NOT DETECTED [facility] Comment on above: Result Comment: This test is not yet approved or cleared by the [place] FDA. When there are no FDA-approved or cleared tests available, and other criteria are met, FDA can make tests available under an emergency access mechanism called an Emergency Use Authorization (EUA). The EUA for this test is supported by the [place] of Health and Human Service's (HHS's) declaration [...] SARS-CoV-2. Performed By: #### C VDTBH #### [facility] [address] [place] [address] Dr. Zuly Medina INFLUENZA A AND B AGon 05-22 [facility] SEE BELOW Normal [facility] Comment on above: Result Comment: Nega tive for Flu A protein angiten. Infection due to Flu A cannot be ruled out. Flu A angiten in the sample may be below the detection limit of the test. Performed By: #### I NFLUAB #### [facility] [address] [place] [address] Dr. Zuly Med[facility] Normal [facility] Comment on above: Result Comment: Nega tive for Flu B protein antigen. Infection due to Flu B cannot be ruled out. Flu B antigen in the sample may be below the detection limit of the test. Performed By: #### I NFLUAB #### [facility] [address] [place] [address] Dr. uZly Medina INFLUENZA A AG Negative Normal NEGATIVE SEE COMMENT [facility] Comment on above: Performed By: #### I NFLUAB #### [facility] [address] [address] [address] Zuly Medina INFLUENZA B AG Negative Normal NEGATIVE SEE COMMENT [facility] Comment on above: Performed By: #### I NFLUAB #### [facility] [address] [address] [address] Zuly Medina ECHOCARDIO M/2D COMPLETEon 0 05-14-2022 ECHOCARDIO M/2D COMPLETE Patient: ADRIANNA BUITRAGO Exam Date: 05/14/2022 : 1950 Gender:F Ordering : MELO JENKINS Admission #: [id number] Family : DR JENNY BURRIS . Order #: [id number] CLICK HERE TO VIEW EXAM ECHOCARDIOGRAM REPORT [...] Garcia M.D. on 05/15/2022 at 18:51 Normal [facility] Office Visiton 05-14-2022 Follow-up visit [id number] Shirley Buitrago 1950 F Date Provider Department Center 05/14/2022 3848-MELO JENKINS [facility] No family history on file Level of Service:15724 [place] OFFICE/OUTPATIENT ESTABLISHED MOD MDM 30-39 MIN Reason for Visit and Comments: Hyperlipidemia [182] Valve Disorder [3372] Normal [facility] MG MAMM SCREEN 3D NOEL CADon 01-22-2022 MG MAMM SCREEN 3D NOEL CAD Patient: ADRIANNA BUITRAGO Exam Date: 01/22/2022 : 1950 Gender:F Ordering : DR JENNY BURRIS . Admission #: [id number] Family : Order #: [id number] CLICK HERE TO VIEW EXAM RADIOLOGY REPORT [...] lung cancer at age 59. LOCATION: [facility] BREAST COMPOSITION: Scattered areas fibroglandular density. FINDINGS: [...] Garcia M.D. on 01/22/2022 at 14:36 Normal [facility] CALCIUMon 12-31-2021 Calcium [Mass/Vol] 10.0 mg/dL Normal 8.5-10.1 [facility] Comment on above: Performed By: #### C [place], [place] #### [facility] [address] [place] [address] Dr. Zuly Medina CREATININEon 12-31-2021 Creatinine [Mass/Vol] 1.33 mg/dL Critically high 0.55-1.02 [facility] Comment on above: Performed By: #### C CHIDI SIMS #### [facility] [address] [place] [address] Dr. Zuly Medina EGFR-AF NAMIBIAN 48 mL/min/1.73m2 Critically low >=60 [facility] Comment on above: Performed By: #### CHIDI MCDANIEL #### [facility] [address] [address] [address] Zuly Medina EGFR-NON AF NAMIBIAN 39 mL/min/1.73m2 Critically low >=60 [facility] Comment on above: Performed By: #### CHIDI MCDANIEL #### [facility] [address] [place] [address] Dr. Zuly Medina Covid-19 PCR (CVDTB)on 12-06 SARS-CoV-2 (COVID-19) RNA MARY+probe Ql (Unsp spec) Not detected Normal NOT DETECTED [facility] Comment on above: Result Comment: This test is not yet approved or cleared by the [place] FDA. When there are no FDA-approved or cleared tests available, and other criteria are met, FDA can make tests available under an emergency access mechanism called an Emergency Use Authorization (EUA). The EUA for this test is supported by the [place] of Health and Human Service's (HHS's) declaration [...] SARS-CoV-2. Performed By: #### C VDTBH #### [facility] [address] [place] [address] Dr. Zuly Medina T4, T3U, FTI [facility] 08-12 -2022 Free Thyroxine Index 2.7 Normal 1.2-4.9 [facility] Comment on above: Performed By: #### C VDTBH #### [facility] [address] [address] [address] Zuly Medina T3 Uptake 32 % Normal 24-39 [facility] Comment on above: Performed By: #### C VDTBH #### [facility] [address] [address] [address] Zuly Medina T4 [Mass/Vol] 8.5 ug/dL Normal 4.5-12.0 [facility] Comment on above: Performed By: #### C VDTBH #### [facility] [address] [address] [address] Zuly Medina VIT D 25-OH [facility] 2021 Vitamin D, 25-Hydroxy 114.0 ng/mL Critically high 30.0-100.0 [facility] Comment on above: Result Comment: Jenny min D deficiency has been defined by the [place] of Medicine and an Endocrine Society practice guideline as a level of serum 25-OH vitamin D less than 20 ng/mL (1,2). The Endocrine Society went on to further define vitamin D insufficiency as a level between 21 and 29 ng/mL (2). 1. IOM ([place] of [employer]). 2010. Dietary reference intakes for calcium and D. Steve [place]: The National Academies Press. 2. Anel MF, Chandrika NC, Ronaldo MCCALLUM, et al. Evaluation, treatment, and prevention of vitamin D deficiency: an Endocrine Society clinical practice guideline. JCEM. 2010; 96(7):1911-30. Performed By: #### V ITADLC #### [facility] [address] [address] [address] Zuly Medina CBC AUTO DIFFon 11-14-2021 BASO # 0.0 103/ul Normal 0.0-0.1 [facility] Comment on above: Performed By: #### C [place], [place] #### [facility] [address] [address] [address] Zuly Medina Basophils/100 WBC (Bld) 0.4 % Normal 0.2-2.0 [facility] Comment on above: Performed By: #### CHIDI MCDANIEL #### [facility] [address] [place] [address] Dr. Zuly Medina EO # 0.3 103/ul Normal 0.0-0.7 [facility] Comment on above: Performed By: #### CHIDI MCDANIEL #### [facility] [address] [place] [address] Dr. Zuly Medina Eosinophils/100 WBC (Bld) 4.1 % Normal 0.9-7.0 [facility] Comment on above: Performed By: #### CHIDI MCDANIEL #### [facility] [address] [place] [address] Dr. Zuly Medina Erythrocyte distribution width (RBC) [Ratio] 14.1 % Normal 11.0-15.0 [facility] Comment on above: Performed By: #### CHIDI MCDANIEL #### [facility] [address] [place] [address] Dr. Zuly Medina Hematocrit (Bld) [Volume fraction] 36.0 % Normal 36.0-48.0 [facility] Comment on above: Performed By: #### CHIDI MCDANIEL #### [facility] [address] [place] [address] Dr. Zuly Medina Hemoglobin (Bld) [Mass/Vol] 11.6 g/dL Critically low 12.0-16.0 [facility] Comment on above: Performed By: #### CHDII MCDANIEL #### [facility] [address] [place] [address] Dr. Zuly Medina IG # 0.01 10e3/ul Normal 0.00-0.03 [facility] Comment on above: Performed By: #### CHIDI MCDANIEL #### [facility] [address] [place] [address] Dr. Zuly Medina IG % 0.1 % Normal 0.0-0.5 [facility] Comment on above: Performed By: #### CHIDI MCDANIEL #### [facility] [address] [address] [address] Zuly Medina LYMPH # 1.3 103/ul Normal 1.2-3.8 [facility] Comment on above: Performed By: #### Oliverio SIMS [place] #### [facility] [address] [place] [address] Dr. Zuly Medina Lymphocytes/100 WBC (Bld) 19.3 % Critically low 20.5-60.0 [facility] Comment on above: Performed By: #### Oliverio SIMS, [place] #### [facility] [address] [place] [address] Dr. Zuly Medina MANUAL DIFF REQ NO Normal [facility] Comment on above: Performed By: #### Oliverio SIMS [place] #### [facility] [address] [place] [address] Dr. Zuly Medina MCH (RBC) [Entitic mass] 31.4 pg Normal 26.7-34.0 [facility] Comment on above: Performed By: #### Oliverio SIMS [place] #### [facility] [address] [place] [address] Dr. Zuly Medina MCHC (RBC) [Mass/Vol] 32.2 g/dL Normal 29.9-35.2 [facility] Comment on above: Performed By: #### Oliverio SIMS [place] #### [facility] [address] [place] [address] Dr. Zuly Medina MCV (RBC) [Entitic vol] 97.6 fL Normal 81.0-99.0 [facility] Comment on above: Performed By: #### Oliverio SIMS, [place] #### [facility] [address] [place] [address] Dr. Zuly Medina MONO # 0.8 103/ul Normal 0.3-0.8 [facility] Comment on above: Performed By: #### Oliverio SIMS, [place] #### [facility] [address] [place] [address] Dr. Zuly Medina Monocytes/100 WBC (Bld) 11.8 % Normal 1.7-12.0 [facility] Comment on above: Performed By: #### Oliverio SIMS, [place] #### [facility] [address] [address] [address] Zluy Medina NEUT # 4.4 103/ul Normal 1.4-6.5 [facility] Comment on above: Performed By: #### Oliverio SIMS, [place] #### [facility] [address] [address] [address] Zuly Medina Neutrophils/100 WBC (Bld) 64.3 % Normal 43.0-75.0 [facility] Comment on above: Performed By: #### Oliverio SIMS, [place] #### [facility] [address] [address] [address] Zuly Medina Platelet mean volume (Bld) [Entitic vol] 10.1 fL Normal 9.5-13.5 [facility] Comment on above: Performed By: #### Oliverio SIMS [place] #### [facility] [address] [place] [address] Dr. Zuly Medina PLT 311 103/ul Normal 150-450 [facility] Comment on above: Performed By: #### Oliverio SIMS [place] #### [facility] [address] [address] [address] Zuly Medina RBC 3.69 106/ul Critically low 4.20-5.40 [facility] Comment on above: Performed By: #### Oliverio SIMS [place] #### [facility] [address] [place] [address] Dr. Zuly Medina WBC 6.9 103/ul Normal 4.0-11.0 [facility] Comment on above: Performed By: #### Oliverio SIMS, [place] #### [facility] [address] [place] [address] Dr. Zuly Medina GLYCOHEMOGLOBIN A1Con 2021 ADA RECOMMENDATION SEE BELOW Normal [facility] Comment on above: Result Comment: ADA RECOMMENDED LIMIT 4.0 - 6.0 ADA THERAPEUTIC TARGET < 7.0 ACTION SUGGESTED > 7.0 Performed By: #### A 1C #### [facility] [address] [place] [address] Dr. Zuly Medina Glucose [Mass/Vol] 103 mg/dL Normal [facility] Comment on above: Performed By: #### A 1C #### [facility] [address] [address] [address] Zuly Medina HbA1c (Bld) [Mass fraction] 5.2 % Normal 4.5-6.2 [facility] Comment on above: Performed By: #### A 1C #### [facility] [address] [address] [address] Zuly Medina IRONon 11-14-2021 Iron [Mass/Vol] 60.0 ug/dL Normal 50.0-170.0 [facility] Comment on above: Performed By: #### C VDTB #### [facility] [address] [place] [address] Dr. Zuly Medina LIPID PROFILEon 11-14-2021 CHOL-HDL RATIO NORM SEE BELOW Normal [facility] Comment on above: Result Comment: 3.3 - 4.4 LOW RISK 4.4 - 7.1 AVERAGE RISK 7.1 - 11.0 MODERATE RISK >11.0 HIGH RISK Performed By: #### CHIDI MCDANIEL #### [facility] [address] [place] [address] Dr. Zuly Medina Cholesterol [Mass/Vol] 145 mg/dL Normal <=200 [facility] Comment on above: Performed By: #### CHIDI MCDANIEL #### [facility] [address] [place] [address] Dr. Zuly Medina Cholesterol in HDL [Mass/Vol] 65 mg/dL Critically high 40-60 [facility] Comment on above: Performed By: #### Oliverio SIMS [place] #### [facility] [address] [address] [address] Zuly Medina Cholesterol in LDL [Mass/Vol] 72.2 mg/dL Normal [facility] Comment on above: Performed By: #### Oliverio SIMS [place] #### [facility] [address] [place] [address] Dr. Zuly Medina Cholesterol.total/Ch olesterol in HDL [Mass ratio] 2.2 {ratio} Normal [facility] Comment on above: Performed By: #### CHIDI MCDANIEL #### [facility] [address] [address] [address] Zuly Medina HDL NORMAL > or = 60 mg/dl - LO W CARDIOVASCULAR RISK <40 mg/dl - HIGH CARDIOVASCULAR RISK Normal [facility] Comment on above: Performed By: #### Oliverio SIMS [place] #### [facility] [address] [address] [address] Zuly Medina LDL CALC NORMAL SEE BELOW Normal [facility] Comment on above: Result Comment: <100 mg/dl OPTIMAL 100 - 129 mg/dl NEAR OR ABOVE OPTIMAL 130 - 159 mg/dl BORDERLINE HIGH 160 - 189 mg/dl HIGH >190 mg/dl VERY HIGH Performed By: #### CHIDI MCDANIEL #### [facility] [address] [address] [address] Zuyl Medina Triglyceride [Mass/Vol] 39 mg/dL Normal <=150 [facility] Comment on above: Performed By: #### CHIDI MCDANIEL #### [facility] [address] [address] [address] Zuly Medina VLDL CALC 7.8 mg/dL Normal [facility] Comment on above: Performed By: #### CHIDI MCDANIEL #### [facility] [address] [address] [address] Zuly Medina PROF 14(COMP METB)on 022 Albumin [Mass/Vol] 3.8 g/dL Normal 3.4-5.0 [facility] Comment on above: Performed By: #### Oliverio SIMS [place] #### [facility] [address] [address] [address] Zuly Medina Albumin/Globulin [Mass ratio] 1.4 {ratio} Normal [facility] Comment on above: Performed By: #### CHIDI MCDANIEL #### [facility] [address] [address] [address] Zuly Medina ALP [Catalytic activity/Vol] 41 U/L Critically low 46-116 [facility] Comment on above: Performed By: #### CHIDI MCDANIEL #### [facility] [address] [address] [address] Zuly Medina ALT [Catalytic activity/Vol] 20 U/L Normal 14-59 [facility] Comment on above: Performed By: #### Oliverio SIMS [place] #### [facility] [address] [address] [address] Zuly Medina Anion gap [Moles/Vol] 8.2 mmol/L Normal [facility] Comment on above: Performed By: #### Oliverio SIMS [place] #### [facility] [address] [address] [address] Zuly Medina AST [Catalytic activity/Vol] 25 U/L Normal 15-37 [facility] Comment on above: Performed By: #### Oliverio SIMS [place] #### [facility] [address] [place] [address] Dr. Zuly Medina Bilirubin [Mass/Vol] 0.4 mg/dL Normal 0.2-1.0 [facility] Comment on above: Performed By: #### Oliverio SIMS [place] #### [facility] [address] [address] [address] Zuly Medina Calcium [Mass/Vol] 10.1 mg/dL Normal 8.5-10.1 [facility] Comment on above: Performed By: #### Oliverio SIMS [place] #### [facility] [address] [place] [address] Dr. Zuly Medina Chloride [Moles/Vol] 104 mmol/L Normal 98-107 [facility] Comment on above: Performed By: #### Oliverio SIMS [place] #### [facility] [address] [address] [address] Zuly Medina CO2 [Moles/Vol] 31.6 mmol/L Normal 21.0-32.0 [facility] Comment on above: Performed By: #### Oliverio SIMS [place] #### [facility] [address] [address] [address] Zuly Medina Creatinine [Mass/Vol] 1.44 mg/dL Critically high 0.55-1.02 [facility] Comment on above: Performed By: #### C [place], [place] #### [facility] [address] [address] [address] Zuly Medina EGFR-AF NAMIBIAN 43 mL/min/1.73m2 Critically low >=60 [facility] Comment on above: Performed By: #### C [place], [place] #### [facility] [address] [address] [address] Zuly Medina EGFR-NON AF NAMIBIAN 36 mL/min/1.73m2 Critically low >=60 [facility] Comment on above: Performed By: #### C [place], [place] #### [facility] [address] [address] [address] Zuly Medina Globulin (S) [Mass/Vol] 2.8 g/dL Normal [facility] Comment on above: Performed By: #### C [place], [place] #### [facility] [address] [address] [address] Zuly Medina Glucose [Mass/Vol] 100 mg/dL Normal 74-106 [facility] Comment on above: Performed By: #### Oliverio SIMS, [place] #### [facility] [address] [address] [address] Zuly Medina Potassium [Moles/Vol] 3.8 mmol/L Normal 3.5-5.1 [facility] Comment on above: Performed By: #### C [place], [place] #### [facility] [address] [address] [address] Zuly Medina Protein [Mass/Vol] 6.6 g/dL Normal 6.4-8.[address] [facility] Comment on above: Performed By: #### C [place], [place] #### [facility] [address] [address] [address] Zuly Medina Sodium [Moles/Vol] 140 mmol/L Normal 136-145 [facility] Comment on above: Performed By: #### C [place], [place] #### [facility] [address] [address] [address] Zuly Medina Urea nitrogen [Mass/Vol] 28.0 mg/dL Critically high 7.0-18.0 [facility] Comment on above: Performed By: #### C BETHANY [place] #### [facility] [address] [address] [address] Zuly Medina Urea nitrogen/Creatinine [Mass ratio] 19.4 mg/mg Normal [facility] Comment on above: Performed By: #### [place] #### [facility] [address] [address] [address] Zuly Medina TSHon 11-14-2021 TSH 1.676 uIU/mL Normal 0.358-3.740 [facility] Comment on above: Performed By: #### C CHIDI SIMS #### [facility] [address] [place] [address] Dr. Zuly Medina Covid-19 PCR ([facility])on 10-05 SARS-CoV-2 (COVID-19) RNA MARY+probe Ql (Unsp spec) Not detected Normal NOT DETECTED [facility] Comment on above: Result Comment: When diagnostic [...] for this test is supported by the [place] of Health and Human Service's declaration that [...] longer be used). Performed By: #### C VDTBH #### [facility] [address] [place], [place] [address] Dr. Zuly Medina CREATININEon 09-18-2021 Creatinine [Mass/Vol] 1.33 mg/dL Critically high 0.55-1.02 [facility] Comment on above: Performed By: #### [place] #### [facility] [address] [place], [place] [address] Dr. Zuly Medina EGFR-AF NAMIBIAN 48 mL/min/1.73m2 Critically low >=60 [facility] Comment on above: Performed By: #### [place] #### [facility] [address] [place], [place] [address] Dr. Zuly Medina EGFR-NON AF NAMIBIAN 39 mL/min/1.73m2 Critically low >=60 [facility] Comment on above: Performed By: #### [place] #### [facility] [address] [place], [place] [address] Dr. Zuly Medina MRI BRAIN WO W [...] WEI GARCIA Date: 2021-09-18 16:23 Normal [facility] Covid-19 PCR ([facility])on 08-05 SARS-CoV-2 (COVID-19) RNA MARY+probe Ql (Unsp spec) Not detected Normal NOT DETECTED [facility] Comment on above: Result Comment: This test is not yet approved or cleared by the [place] FDA. When there are no FDA-approved or cleared tests available, and other criteria are met, FDA can make tests available under an emergency access mechanism called an Emergency Use Authorization (EUA). The EUA for this test is supported by the [place] of Health and Human Service's (HHS's) declaration [...] SARS-CoV-2. Performed By: #### C VDTB #### [facility] [address] [place] [address] Dr. Zuly Medina SYMPTOMATIC COVID-19 ANTIGEN on 08-23-2021 EUA Statement SEE BELOW Normal [facility] Comment on above: Result Comment: [...] is revoked sooner. Performed By: #### [facility] #### [facility] [address] [place] [address] Dr. Zuly Medina SARS-CoV-2 (COVID-19) RNA MARY+probe Ql (Unsp spec) Negative Normal NEGATIVE [facility] Comment on above: Performed By: #### C VDTB #### [facility] [address] [place], [place] [address] Dr. Zuly Medina Q - Diptheria/Tetanus Abon 0 08-09-2021 DIPHTHERIA ANTITOXOID 0.25 IU/mL Normal [facility] Maintenance Repairer Comment on above: Order Comment: [facility] performed at: [facility] [address], [address] [place], [place], [place], , Sports Editor: Sahil Dyson M.D.,PhD [facility] Collection Date/Time: [facility] [...] analytical performance characteristics have been determined by [address] [place], [place]. It has not been cleared or approved by the U.S. Food and Drug Administration. This assay has been validated pursuant to the CLIA regulations and is used for clinical purposes. Performed By: #### 2 4729W, 45215E, 51719, 06834Q, 29604A, 65426V #### [facility] [address] [place] [address] TETANUS ANTITOXOID 4.67 IU/mL Normal [facility] Maintenance Repairer Comment on above: Order Comment: [facility] performed at: [facility], [place], [place], , Sports Editor: Sahil Dyson M.D.,PhD [facility] Collection Date/Time: [facility] [...] analytical performance characteristics have been determined by [address] [facility], [place], [place]. It has not been cleared or approved by the U.S. Food and Drug Administration. This assay has been validated pursuant to the CLIA regulations and is used for clinical purposes. Performed By: #### 2 4729W, 29022N, 57271, 18258C, 35731U, 02786J #### [facility] Default [address] [place] [address] Q - IGA,SERUMon 08-09-2021 IMMUNOGLOBULIN A 125 mg/dL Normal 70-320 [facility] Comment on above: Order Comment: [facility] performed at: [facility], [address] [facility], [address] [place] [address], [address] [place] [address], [address] [place] [address], Sports Editor: Thony Haley MD [facility] Collection Date/Time: [facility] Results Received Date/Time: [facility] Reported Date/Time: Performed By: #### 2 4729W, 46810J, 92037, 62820Q, 24886O, 19397Y #### [facility] Default [address] [place] [address] Q - IGE,SERUMon 08-09-2021 IMMUNOGLOBULIN E 44 kU/L Normal [facility] Comment on above: Order Comment: [facility] performed at: [facility], [address] [facility], [address] [facility], [address] [place] [address], [address] [place] [address], Sports Editor: Thony Haley MD [facility] Collection Date/Time: [facility] Results Received Date/Time: [facility] Reported Date/Time: Performed By: #### 2 4729W, 02240H, 01266, 59175E, 95987U, 19977U #### [facility] [address] [place] [address] Q - IGG,SERUMon 08-09-2021 IMMUNOGLOBULIN G 895 mg/dL Normal 600-1540 [facility] Specialist Comment on above: Order Comment: [facility] performed at: [facility], [address] [facility], [address], [address] [place], [address], Sports Editor: Thony Haley MD [facility] Collection Date/Time: [facility] Results Received Date/Time: [facility] Reported Date/Time: Performed By: #### 2 4729W, 69405S, 80400, 10490T, 42728R, 55888E #### [facility] Default [address] [place] [address] Q - IGM,SERUMon 08-09-2021 IMMUNOGLOBULIN M 158 mg/dL Normal 50-300 [facility] Specialist Comment on above: Order Comment: [facility] performed at: [facility], [address] [facility], [address], [address] [place], [address], Sports Editor: Thony Haley MD [facility] Collection Date/Time: [facility] Results Received Date/Time: [facility] Reported Date/Time: Performed By: #### 2 4729W, 67437T, 33062, 43000P, 56128D, 59642B #### [facility] [address] [place] [address] Q - Strep pneumo Ab 23 serot ypeson 08-09-2021 SEROTYPE 1 (1) 9.5 Normal [facility] Specialist Comment on above: Order Comment: [facility] performed at: [facility], [address]/[facility],, [address] [place], [address], Sports Editor: Osiris Galdamez MD,PhD,BHANU [facility] Collection Date/Time: [facility] Results Received Date/Time: [facility] Reported Date/Time: Performed By: #### 2 4729W, 75382Z, 40945, 96991K, 41689A, 69404I #### [facility] [address] [place] [address] SEROTYPE 12 (12F) 1.0 [facility] Comment on above: Order Comment: [facility] performed at: [facility], [address]/[facility],, [address] [place], [place] [address], , Sports Editor: Osiris Galdamez MD,PhD,BHANU [facility] Collection Date/Time: [facility] Results Received Date/Time: [facility] Reported Date/Time: Performed By: #### 2 4729W, 93249A, 85203, 10839M, 63896Y, 40766C #### [facility] [address] [place] [address] SEROTYPE 14 (14) 3.3 [facility] Comment on above: Order Comment: [facility] performed at: [facility], [address],, [address] [place], [place] [address], [place], , Sports Editor: Osiris Galdamez MD,PhD,BHANU [facility] Collection Date/Time: [facility] Results Received Date/Time: [facility] Reported Date/Time: Performed By: #### 2 4729W, 41959J, 81343, 84468N, 67296E, 02256L #### [facility] [address] [place] [address] SEROTYPE 17 (17F) 1.2 [facility] Comment on above: Order Comment: [facility] performed at: [facility], [address],, [facility] [place], , Sports Editor: Osiris Galdamez MD,PhD,BHANU [facility] Collection Date/Time: [facility] Results Received Date/Time: [facility] Reported Date/Time: Performed By: #### 2 4729W, 36949J, 75029, 31298B, 70615S, 04431D #### [facility] Default [address] [place] [address] SEROTYPE 19 (19F) 2.[address] [facility] Comment on above: Order Comment: [facility] performed at: [facility], [address],, [facility] [place], , Sports Editor: Osiris Galdamez MD,PhD,BHANU [facility] Collection Date/Time: [facility] Results Received Date/Time: [facility] Reported Date/Time: Performed By: #### 2 4729W, 91058V, 33849, 82905X, 16217G, 49402R #### [facility] [address] [place] [address] SEROTYPE 2 (2) 7.2 Normal [facility] Specialist Comment on above: Order Comment: [facility] performed at: [facility], [address],, [facility] [place], , Sports Editor: Osiris Galdamez MD,PhD,BHANU [facility] Collection Date/Time: [facility] Results Received Date/Time: [facility] Reported Date/Time: Performed By: #### 2 4729W, 55382A, 08760, 09208P, 34275P, 36260H #### [facility] Default [address] [place] [address] SEROTYPE 20 (20) 3.4 Normal [facility] Comment on above: Order Comment: [facility] performed at: [facility], [address],, [address] [place] [address], , Sports Editor: Osiris Galdamez MD,PhD,BHANU [facility] Collection Date/Time: [facility] Results Received Date/Time: [facility] Reported Date/Time: Performed By: #### 2 4729W, 64695I, 22194, 02767P, 25918D, 09767I #### [facility] [address] [place] [address] SEROTYPE 22 (22F) 5.[address] [facility] Comment on above: Order Comment: [facility] performed at: , [address]/[facility],, [address] [place] [address], , Sports Editor: Osiris Galdamez MD,PhD,BHANU [facility] Collection Date/Time: [facility] Results Received Date/Time: [facility] Reported Date/Time: Performed By: #### 2 4729W, 35215I, 17337, 49785K, 28635E, 93865W #### [facility] Default [address] [place] [address] SEROTYPE 23 (23F) 5.[address] [facility] Comment on above: Order Comment: [facility] performed at: [facility], [address],, [address] [place] [address], , Sports Editor: Osiris Galdamez MD,PhD,BHANU [facility] Collection Date/Time: [facility] Results Received Date/Time: [facility] Reported Date/Time: Performed By: #### 2 4729W, 95849K, 85652, 65983P, 67206C, 96663V #### [facility] Default [address] [place] [address] SEROTYPE 26 (6B) 18.8 [facility] Comment on above: Order Comment: [facility] performed at: [facility], [address],, [address] [place] [address], , Sports Editor: Osiris Galdamez MD,PhD,BHANU [facility] Collection Date/Time: [facility] Results Received Date/Time: [facility] Reported Date/Time: Performed By: #### 2 4729W, 15145M, 16076, 46089W, 47901M, 19255C #### [facility] Default [address] [place] [address] SEROTYPE 3 (3) 1.3 Normal [facility] Maintenance Repairer Comment on above: Order Comment: [facility] performed at: [facility], [address],, [address] [place] [address], , Sports Editor: Osiris Galdamez MD,PhD,BHANU [facility] Collection Date/Time: [facility] Results Received Date/Time: [facility] Reported Date/Time: Performed By: #### 2 4729W, 04713A, 65366, 32407T, 77952I, 01186H #### [facility] Default [address] [place] [address] SEROTYPE 34 (10A) 0.[address] [facility] Maintenance Repairer Comment on above: Order Comment: [facility] performed at: [facility], [address],, [address] [place], [place], , Sports Editor: Osiris Galdamez MD,PhD,BHANU [facility] Collection Date/Time: [facility] Results Received Date/Time: [facility] Reported Date/Time: Performed By: #### 2 4729W, 95171K, 88098, 41883Y, 65044K, 83578A #### [facility] Default [address] [place] [address] SEROTYPE 4 (4) <0.3 Normal [facility] Maintenance Repairer Comment on above: Order Comment: [facility] performed at: [facility], [address],, [address] [place] [address], , Sports Editor: Osiris Galdamez MD,PhD,BHANU [facility] Collection Date/Time: [facility] Results Received Date/Time: [facility] Reported Date/Time: Performed By: #### 2 4729W, 29709F, 68390, 29239W, 30317I, 63344N #### [facility] Default [address] [place] [address] SEROTYPE 43 (11A) 1.1 Normal [facility] Specialist Comment on above: Order Comment: [facility] performed at: [facility], [address],, [address] [place] [address], , Sports Editor: Osiris Galdamez MD,PhD,BHANU [facility] Collection Date/Time: [facility] Results Received Date/Time: [facility] Reported Date/Time: Performed By: #### 2 4729W, 77113G, 09915, 48852W, 02500E, 39859Y #### [facility] Default [address] [place] [address] SEROTYPE 5 (5) 2.3 Normal [facility] Maintenance Repairer Comment on above: Order Comment: [facility] performed at: [facility], [address],, [address] [place], [place], , Sports Editor: Osiris Galdamez MD,PhD,BHANU [facility] Collection Date/Time: [facility] Results Received Date/Time: [facility] Reported Date/Time: Performed By: #### 2 4729W, 11296A, 33501, 82999E, 71552P, 28047I #### [facility] Default [address] [place] [address] SEROTYPE 51 (7F) 8.4 Normal [facility] Comment on above: Order Comment: [facility] performed at: [facility], [facility],, [address] [place] [address], , Sports Editor: Osiris Galdamez MD,PhD,BHANU [facility] Collection Date/Time: [facility] Results Received Date/Time: [facility] Reported Date/Time: Performed By: #### 2 4729W, 82273P, 21742, 33917K, 93589R, 50436B #### [facility] Default [address] [place] [address] SEROTYPE 54 (15B) 2.[address] [facility] Comment on above: Order Comment: [facility] performed at: [facility], [address],, [address] [place] [address], , Sports Editor: Osiris Galdamez MD,PhD,BHANU [facility] Collection Date/Time: [facility] Results Received Date/Time: [facility] Reported Date/Time: Performed By: #### 2 4729W, 70014U, 27592, 64455X, 69458E, 59975O #### [facility] Default [address] [place] [address] SEROTYPE 56 (18C) 18.[address] [facility] Comment on above: Order Comment: [facility] performed at: [facility], [address],, [address] [place], [place] [address], , Sports Editor: Osiris Galdamez MD,PhD,BHANU [facility] Collection Date/Time: [facility] Results Received Date/Time: [facility] Reported Date/Time: Performed By: #### 2 4729W, 00131P, 00830, 25266R, 30160I, 48969S #### [facility] Default [address] [place] [address] SEROTYPE 57 (19A) 15.[address] [facility] Comment on above: Order Comment: [facility] performed at: [facility], [facility],, [address] [place], [place], , Sports Editor: Osiris Galdamez MD,PhD,BHANU [facility] Collection Date/Time: [facility] Results Received Date/Time: [facility] Reported Date/Time: Performed By: #### 2 4729W, 64793T, 26212, 45173Y, 65553S, 29492E #### [facility] Default [address] [place] [address] SEROTYPE 68 (9V) 2.1 Normal [facility] Comment on above: Order Comment: [facility] performed at: [facility], [facility],, [facility] [place], , Sports Editor: Osiris Galdamez MD,PhD,BHANU [facility] Collection Date/Time: [facility] Results Received Date/Time: [facility] Reported Date/Time: Performed By: #### 2 4729W, 21959M, 91102, 38216A, 57623D, 82615W #### [facility] Default [address] [place] [address] SEROTYPE 70 (33F) 28.9 [facility] Comment on above: Order Comment: [facility] performed at: [facility], [facility],, [address] [place], [place], , Sports Editor: Osiris Galdamez MD,PhD,BHANU [facility] Collection Date/Time: [facility] Results Received Date/Time: [id number] [facility] Reported Date/Time: Result Comment: [employer] [...] serotype-specific titers may have less robust responses. [address] uses a multi-analyte immunodetection (MAID) method. The method employs the [employer] flow cytometric system which measures multiple analytes [...] analytical performance characteristics have been determined by [address]. It has not been cleared or approved by FDA. This assay has been validated pursuant to the CLIA regulations and used for clinical purposes. For additional information, please refer to http://education.[employer].cityguru/faq/UML351 (This link is being provided for informational/ educational purposes only.) Performed By: #### 2 4729W, 89559X, 80095, 48746A, 93097W, 34815S #### [facility] Default [address] [place] [address] SEROTYPE 8 (8) 14.6 Normal [facility] Maintenance Repairer Comment on above: Order Comment: [facility] Testing performed at: , [address]/[facility],, [address] [place], [place], , Sports Editor: Osiris Galdamez MD,PhD,BHANU [facility] Collection Date/Time: [facility] Results Received Date/Time: [facility] Reported Date/Time: Performed By: #### 2 4729W, 42389C, 95973, 16977S, 83587F, 74887P #### [facility] Default [address] [place] [address] SEROTYPE 9 (9N) 1.[address] [facility] Maintenance Repairer Comment on above: Order Comment: [facility] performed at: [facility], [address],, [address] [place] [address], , Sports Editor: Osiris Galdamez MD,PhD,BHANU [facility] Collection Date/Time: [facility] Results Received Date/Time: [facility] Reported Date/Time: Performed By: #### 2 4729W, 25806E, 27407, 54378X, 51469Q, 97205M #### [facility] Default [address] [place] [address] CT SINUSES WO CONon 08-06-19 CT SINUSES [...] by: WEI GARCIA Date: 2021-08-05 08:48 Normal [facility] MG MAMM DX 3D LT CADon 08-05 MG MAMM DX 3D LT CAD Patient: ADRIANNA BUITRAGO Exam Date: 08/05/2021 : 1950 Gender:F Ordering : DR JENNY BURRIS . Admission #: [id number] Family : Order #: [id number] CLICK HERE TO VIEW EXAM RADIOLOGY REPORT [...] lung cancer at age 59. LOCATION: [facility] BREAST COMPOSITION: Scattered areas fibroglandular density. FINDINGS: [...] PALPABLE LUMP SHOULD BE BIOPSIED. Dictated by: Wie Garcia M.D. on 08/05/2021 at 09:23 Approved by: Wei Garcia M.D. on 08/05/2021 at 09:25 Normal [facility] US BREAST LEFT LIMITEDon US BREAST LEFT LIMITED Patient: ADRIANNA BUITRAGO Exam Date: 08/05/2021 : 1950 Gender:F Ordering : DR JENNY BURRIS . Admission #: [id number] Family : Order #: [id number] CLICK HERE TO VIEW EXAM RADIOLOGY REPORT [...] lung cancer at age 59. LOCATION: [facility] BREAST COMPOSITION: Scattered areas fibroglandular density. FINDINGS: [...] Garcia M.D. on 08/05/2021 at 09:25 Normal [facility] Encounters Encounter Date Encounter Type Care Provider Facility Start: 10-12-2023 End: 10-12-2023 ambulatory KEILA FAITH Not Available Start: 09-10-2023 End: 09-10-2023 ambulatory RENNY Frank REGINO Not Available Start: 08-05-2023 End: 08-06-2023 ambulatory Issa VALE Facility:CD:[id number] Start: 07-15-2023 End: 07-15-2023 ambulatory KEILA PRITCHETTBASECharley Not Available Start: 07-02-2023 End: 07-02-2023 ambulatory RENNY A REGINO Not Available Start: 06-11-2023 End: 06-11-2023 ambulatory RENNY Marie REGINO Not Available Start: 06-09-2023 End: 06-10-2023 ambulatory Issa VALE Facility:[facility] Start: 06-02-2023 ambulatory Issa VALE Facility:[facility] Start: 05-28-2023 End: 05-28-2023 ambulatory RENNY Marie REGINO Facility: [place] Start: 05-14-2023 Chart abstracting Renny lorenzana DPSobia Work Phone: [facility] Start: 05-14-2023 End: 05-14-2023 ambulatory RENNY ORLANDO Not Available Start: 04-30-2023 End: 04-30-2023 ambulatory RENNY Frank ORLANDO Not Available Start: 04-10-2023 End: 04-10-2023 ambulatory MELO JENKINS [facility] Start: 11-25-2022 End: 11-25-2022 ambulatory TEGAN PAIZ [facility] Start: 07-02-2022 End: 07-02-[address] JENNY [...] Facility:[facility] Start: 05-14-2022 End: 05-14-2022 [facility] [place] Start: 01-22-2022 End: 01-23-[address] JENNY [...] ambulatory DR JENNY BURRIS . Facility:[facility] Start: 08-05-2021 End: 08-06-[address] JENNY BURRIS . Facility: Plan of Treatment Date Care Activity Detail Author Start: 12-14-2023 End: 12-14-2023 Patient encounter procedure 12/14/2023 9:20 AM EDT Office Visit [facility] [address] [facility] [address] [place] [phone] Keila Faith MD [address] [facility] [address] [place] [address] [facility] Start: 05-14-2023 End: 05-14-2023 Patient encounter procedure 05/14/2023 8:40 AM EST Office Visit [facility] [address] [place] [phone] Renny Orlando DPM [address] [facility] [place] [address] [place] [address] [facility] Start: 12-05-2022 Influenza vaccination Influenza Vacc ine (#1) [facility] Start: 10-27-2018 Pneumococcal Vaccine : 65+ Years (2 - PPSV23 or PCV20) Pneumococcal Vaccine: 65+ Years (2 - PPSV23 or PCV20) [facility] Start: 1989 Screening for malign ant neoplasm of breast Mammogram [facility] Start: 1950 Screening for malign ant neoplasm of colon [facility] Payers Date Payer Category Payer Unknown [employer] [id number] 2021-Present [address] [place] [address] [id number] 2014 Medicare MEDICARE MEDICAR E PART B [id number] 2014-Present [address] [address] [place] [address] Medicare [id number] 1959 Medicare [id number] 1959 Unknown [id number] 1950 Unknown [id number] 2..840.1.375777.3.579.2.593 1949 Unknown [id number] 2..840.1.131785.3.579.2.593 1949 Unknown [id number] 2.16.840.1.818396.3.579.2.593 1949 Unknown [id number] 2.16.840.1.460927.3.579.2.593 1949 Unknown [id number] 2.16.840.1.507791.3.579.2.593 1949 Unknown [id number] 2.16.840.1.460784.3.579.2.593 1949 Unknown [id number] 2.16.840.1.664422.3.579.2.593 1949 Unknown [id number] 2.16.840.1.431794.3.579.2.593 1949 Unknown [id number] 2.16.840.1.309736.3.579.2.593 1949 Unknown [id number] 2.16.840.1.974989.3.579.2.593 1949 Unknown [id number] 2.16.840.1.558806.3.579.2.593 1949 Unknown [id number] 2.16.840.1.509456.3.579.2.593 1949 Unknown [id number] 2.16.840.1.461116.3.579.2.593 1949 Unknown [id number] 2.16.840.1.933149.3.579.2.593 1949 Unknown [id number] 2.16.840.1.278163.3.579.2.593 1949 Unknown [id number] 2.16.840.1.840214.3.579.2.593 1949 Unknown [id number] 2.16.840.1.952951.3.579.2.727 1949 Unknown [id number] 2.16.840.1.018775.3.579.2.727 1949 Unknown [id number] 2.16.840.1.849244.3.579.2.1259 1949 Unknown [id number] 2.16.840.1.028722.3.579.2.1259 1949 Unknown [id number] 2.16.840.1.836220.3.579.2.1259 1949 Unknown [id number] 2.16.840.1.845169.3.579.2.1259 1949 Unknown [id number] 2.16.840.1.668819.3.579.2.1259 1949 Unknown [id number] 2.16.840.1.758839.3.579.2.1259 1949 Unknown [id number] 2.16.840.1.870461.3.579.2.1259 1949 Unknown [id number] 2.16.840.1.363058.3.579.2.1259 Social History Date Type Detail Facility Start: 04-30-2023 Tobacco smoking stat [facility] Ex-smoker [facility] End: 04-06-2006 History of tobacco use Current smoker [facility] End: 04-06-2006 History of tobacco use Cigarette Smoker [facility] History of tobacco use Passive smoker [facility] Start: 04-30-2023 Tobacco use and exposure Smokeless t obacco non-user [facility] Start: 05-14-2023 Alcohol intake Lifetime non-d hugo (finding) [facility] Start: 04-30-2023 History of Social function [facility] Start: 04-30-2023 Tobacco use panel [facility] Start: 12-12-2022 Alcohol Comment Caffeine intake: non e [facility] Start: 1950 Sex Assigned At Not on file [facility] Clinical Notes 05-14-2022 to 06-09-2023 Note Date [...] Historical No qualifying data Procedure/Surgical History Colonoscopy (2018), Colonoscopy (06/16/2008), Implantation of intraocular lens, Nasal [...] 1 tab(s), Oral, Daily Flonase 0.05 mg/inh [place], 2 spray(s), Nasal, Daily lactulose 10 g/15 [...] mEq= 1 tab(s (more content not included)... [facility] Comment on above: Result Comment: Elec [...] nostril in the morning and at bedtime. econvfzlir-akidxgpz-vwahhqisjh (Breztri Aerosphere) 160-9-4.8 mcg/actuation HFA aerosol inhaler [...] as needed Melo Jenkins MD Interventional Cardiology [facility] (more content not included)... [facility] 04-10-2023 Note Patient here for 6 m [...] All other systems reviewed and are negative. [facility] 11-25-2022 Note Remains stable, ches t pain resolved and no acute concerns currently [facility] 11-25-2022 Note Current echo 05/2022- Mild MR and no concerning symptoms currently [facility] 11-25-2022 Note Current echo 05/2022- Mild MR and no concerning symptoms currently [facility] 11-25-2022 Note Continue pravastatin 10 mg daily and fenofibrate- pt states PCP orders her annual labs F/U with PCP [facility] 11-25-2022 Note UTP CARDIOLOGY PROGR ESS NOTE [...] Prior to Visit Medication Sig Dispense Refill orsmscvpob-snvrzgaz-fgfjvcxfie (Breztri Aerosphere) 160-9-4.8 mcg/actuation HFA aerosol inhaler [...] no acute concerns currently RTC 4-6 months [facility] 05-26-2022 Note CARDIAC STRESS TEST Requesting Physician: Procedure Date:05/26/2022 This is a treadmill stress test with myocardial perfusion imaging, performed at the [facility] on 05/26/2022. Informed consent was obtained. 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 4. Myocardial perfusion images will be reported separately. [facility] 05-14-2022 Note Cardiology Follow Up Progress Note [...] Prior to Visit Medication Sig Dispense Refill rxlcgoawbu-nbkwxqzd-axxpschefs (Breztri Aerosphere) 160-9-4.8 mcg/actuation HFA aerosol inhaler [...] red flag symptoms. (more content not included)... [facility] 05-14-2022 Note Patient here for 6 m o follow up valve regurgitation and hyperlipidemia. C/o intermittent chest pressure. She says sometimes she takes aspirin to relieve the pain if it lasts more then a few minutes. Occurs at rest, as well as exercise, but she states it's no worse with exercise. [facility] Summary Purpose Family History No Family History Records FoundNo Family History Records FoundNo Family History Records FoundNo Family History Records FoundNo Family History Records Found Advance Directives No Advanced Directives Records FoundNo Advanced Directives Records FoundNo Advanced Directives Records FoundNo Advanced Directives Records FoundNo Advanced Directives Records Found Additional Source Comments INFORMATION SOURCE (unrecogn ized section and content) DATE CREATED AUTHOR 08/17/2021 [facility] dical Specialist DATE CREATED AUTHOR AUTHOR'S ORGANIZ ATION 07/05/2022 [facility] DATE CREATED AUTHOR AUTHOR'S ORGANIZ ATION 05/11/2023 [facility] DATE CREATED AUTHOR AUTHOR'S ORGANIZ ATION 08/10/2023 [facility] DATE CREATED AUTHOR AUTHOR'S ORGANIZ ATION 10/12/2023 [facility] dical Specialists [employer] Care Teams (unrecognized sec tion and content) [employer] Relationship Specialty Start Date End Date Jenny Burris MD [address] [place] [id number] PCP - General Family Medicine 04/30/23 FOR [...] BE BASED ON THE PRIMARY CLINICAL RECORDS. [facility]. provides no warranty or guarantee of the accuracy or completeness of information in this document.
[2023-11-26 09:57] LABS: Basophils Absolute Auto 0.1 10^3/uL (0.0-0.1); Basophils Percent Auto 0.8 % (0.2-2.0); Eosinophils Absolute Auto 0.4 10^3/uL (0.0-0.7); Eosinophils Percent Auto 5.2 % (0.9-7.0); Hematocrit 39.1 % (36.0-48.0); Hemoglobin 13.2 g/dL (12.0-16.0); Immature Granulocytes Abs Auto 0.01 10^3/uL (0.00-0.03); Immature Granulocytes Pct Auto 0.1 % (0.0-0.5); Lymphocytes Absolute Auto 1.3 10^3/uL (1.2-3.8); Lymphocytes Percent Auto 17.9 % (20.5-60.0); Mean Corpuscular HGB Conc 33.8 g/dL (29.9-35.2); Mean Corpuscular Hemoglobin 32.3 pg (26.7-34.0); Mean Corpuscular Volume 95.6 fL (81.0-99.0); Mean Platelet Volume 10.7 fL (9.5-13.5); Monocytes Absolute Auto 0.7 10^3/uL (0.3-0.8); Monocytes Percent Auto 9.3 % (1.7-12.0); Neutrophils Absolute Auto 4.7 10^3/uL (1.4-6.5); Neutrophils Percent Auto 66.7 % (43.0-75.0); Platelet Count 365 10^3/uL (150-450); Red Blood Count 4.09 10^6/uL (4.20-5.40); Red Cell Distribution Width 13.7 % (11.0-15.0); White Blood Count 7.1 10^3/uL (4.0-11.0)
[2023-11-26 10:23] LABS: Estimated Average Glucose 91 mg/dL; Glycohemoglobin A1C 4.8 % (4.5-6.2)
[2023-11-26 10:35] LABS: Alanine Aminotransferase 31 U/L (14-59); Albumin Globulin Ratio 1.2; Alkaline Phosphatase 48 U/L (46-116); Anion Gap 11.1; Aspartate Amino Transferase 29 U/L (15-37); BUN Creatinine Ratio 22.2; Bilirubin Total 0.5 mg/dL (0.2-1.0); Calcium 9.8 mg/dL (8.5-10.1); Carbon Dioxide 31.6 mmol/L (21.0-32.0); Chloride 104 mmol/L (98-107); Chol HDL Ratio 2.3; Cholesterol 173 mg/dL (<=200); Estimated GFR (African America 50 (>=60); Estimated GFR (Non-African Ame 42 (>=60); Free T3 2.82 pg/mL (2.18-3.98); Globulin 3.3 g/dL; Glucose 90 mg/dL (74-106); HDL Cholesterol 75 mg/dL (40-60); Potassium 3.7 mmol/L (3.5-5.1); Sodium 143 mmol/L (136-145); Thyroid Stimulating Hormone 1.573 uIU/mL (0.358-3.740); Total Protein 7.3 g/dL (6.4-8.2); Triglycerides 56 mg/dL (<=150); VLDL CHOLESTEROL 11.2 mg/dL
== END 2023-11-26 09:17 | disposition home or self-care (01) ==
LOC: LAB 09:17
PROVIDERS: PCP Family Medicine; Visit Provider Family Medicine
DX: E03.9 Hypothyroidism, unspecified (principal); I10 Essential (primary) hypertension; K21.9 Gastro-esophageal reflux disease without esophagitis; M54.16 Radiculopathy, lumbar region; E78.00 Pure hypercholesterolemia, unspecified; E78.5 Hyperlipidemia, unspecified; R73.09 Other abnormal glucose; D64.9 Anemia, unspecified
CPT/HCPCS: 36415; 80053; 80061; 83036; 83540; 84436; 84443; 84481; 85025

== ENCOUNTER 2024-01-11 07:33 | Outpatient (RCR) | payer MEDICARE, OTHER, SELFPAY ==
[2024-01-11 07:27] LABS: Calcium 10.2 mg/dL (8.5-10.1); Estimated GFR (African America 44 (>=60 mL/min/1.73m^2); Estimated GFR (Non-African Ame 36 (>=60 mL/min/1.73m^2)
[2024-01-11 07:57] VITALS: BP 131/71; PULSE 53; TEMP 36.3; O2SAT 98
--- NOTE | 2024-01-11 07:59 | PC.NURSE ---
0747: Pt. to [facility] amb. accompanied by . Seated in recliner. VSS. Home meds. updated. Given bottled water.
[2024-01-11] MEDS: DENOSUMAB 60 MG/ML SYRINGE SUBQ (08:23)
--- NOTE | 2024-01-11 08:24 | PC.NURSE ---
0823: Medicated with Prolia as ordered, see documentation. Tolerated without c/o, no bleeding to site. 0825: Pt. d/c'd amb. to home.
== END 2024-02-04 23:59 | disposition home or self-care (01) ==
LOC: INF 07:33
PROVIDERS: PCP Family Medicine; Visit Provider Family Medicine
DX: M81.0 Age-related osteoporosis without current pathological fracture (principal)
CPT/HCPCS: 36415; 82310; 82565; 96372; J0897

== ENCOUNTER 2024-01-11 11:42 | Outpatient (OUT) | payer MEDICARE, OTHER, SELFPAY ==
--- OUTSIDE RECORDS SUMMARY | 2024-01-11 12:06 | XMS_ITS | CCD ---
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 Role Phone HOY ., DR ALVARADO [...] MOHAMAD Attending Unavailable TEGAN PAIZ Attending Unavailable [place] FRANKLIN, Jenny Ramsay Primary Care Provider [phone] NILIssa Palomino R Attending Unavailable NILL, Issa R Attending Unavailable RENNY ORLANDO A Attending Unavailable REGINO, RENNY A Attending Unavailable BROWN, RENNY A Attending Unavailable BROWN, RENNY A Attending Unavailable BROWN, RENNY A Attending Unavailable RAMBASEK, KEILA E Attending Unavailable BROWN, RENNY A Attending Unavailable RAMBASEK, KEILA E Attending Unavailable BROWN, RENNY A Attending Unavailable SANDEEP PLEITEZ Attending Unavailable CIRO ORLANDOOLAS A Attending Unavailable Allergies Allergy Classification Reported Allergen(s) Allergy Type Date of Onset Reaction(s) Facility (2 sources) Amoxicillin; Translations: [AMOXICILLIN] Drug Allergy 3 [facility] Repository (3 sources) Morphine; Translations: [MORPHINE] Drug Allergy 3 [facility] Repository (1 source) Amoxicillin Drug Allergy 3 Itching, Other, Unknown [facility] (1 source) Mold Extract Drug Allergy 4 Unknown [facility] (1 source) Morphine Drug Allergy 3 Itching, Other [facility] (1 source) Penicillin; Translations: [penicillin] Drug Allergy [facility] Repository (1 source) No Known Medication Allergies; Translations: [No Known Medication Allergies] Propensity to adverse reactions (disorder) [facility] Repository Medications Current Medications Medication Drug [...] nostril on a b.I.d. basis. 30 mL 01/05/2023 Active budesonide 0.5 mg/ml inhalation suspension (1 source) Corticosteroid Start: 01-05-2023 End: 01-05-2024 take 2 mL by mouth in the morning budesonide (Pulmicort) 1 MG/2ML nebulizer solution Indications: Mild intermittent asthma without complication (CMS/HCC) Take 2 mL (1 mg) by nebulization in the morning. Rinse mouth with water after use to reduce aftertaste and incidence of candidiasis. Do not swallow.. 60 mL 01/05/2023 01/05/2024 Active 168 hr cloNIDine 0.09152 mg/hr transdermal system (1 source) Central alpha-2 [...] Range Facility Outside Colonoscopyon 2023 Outside Colonoscopy [id number] 50 [id number]#[id number] 0TIFF [facility] Reminderson 08-07-2023 Reminders - From: Kandi Cesar LPN To: N - Clinical; Sent: 08/07/2023 07:59:01 EDT Show up: 07/06/2033 07:59:00 EDT Subject: colonoscopy recall Due Date/Time: 08/04/2033 07:00:00 EDT Reminder/Recall If patient is in good health, she is due for screening colonoscopy 08/04/2033. [facility] Consent for Procedure/Surger yon 06-10-2023 Consent for Procedure/Surgery [id number]#1.0 0TIFF [facility] Ambulatory Visit Summaryon 0 06-09-2023 Ambulatory [...] oral tablet) fluticasone nasal (Flonase 0.05 mg/inh [place]) furosemide (Lasix 20 mg Tab) lactulose (lactulose [...] Unchanged fluticasone nasal (Flonase 0.05 mg/ inh [place]) 2 Sprays Nasal Inhalation Every day Contact [...] for choosing us for your care. Normal [facility] Physician Referralon 024 Physician Referral [id number] 20 [id number] 0TIFF Normal [facility] Office Visiton 04-10-2023 Follow-up visit [id number] Shirley Buitrago ly D 1950 F Date Provider Department Center 04/10/2023 3848-MELO JENKINS [facility] No family history on file Level of Service:44012 [place] OFFICE/OUTPATIENT ESTABLISHED LOW MDM 20 MIN Normal [facility] Office Visiton 11-25-2022 Follow-up visit [id number] Shirley Buitrago ly D 1950 F Date Provider Department Center 11/25/2022 120-CHENCHO TEGAN [facility] Hos No family history on file Level of Service:39588 MA OFFICE/OUTPATIENT ESTABLISHED MOD MDM 30-39 MIN Normal [facility] CALCIUMon 07-02-2022 Calcium [Mass/Vol] 9.8 mg/dL Normal 8.5-10.1 [facility] Comment on above: Performed By: #### C A, CREA #### [facility] [address] [address] [address] Zuly Medina CREATININEon 07-02-2022 Creatinine [Mass/Vol] 1.41 mg/dL Critically high 0.55-1.02 [facility] Comment on above: Performed By: #### C A, CREA #### [facility] [address] [address] [address] Zuly Medina EGFR-AF PALESTINIAN 44 mL/min/1.73m2 Critically low >=60 [facility] Comment on above: Performed By: #### C A, CREA #### [facility] [address] [address] [address] Zuly Medina EGFR-NON AF PALESTINIAN 37 mL/min/1.73m2 Critically low >=60 [facility] Comment on above: Performed By: #### C A, CREA #### [facility] [address] [address] [address] Zuly Medina MRI LSPINE WO CONon [...] by: TESSA ESTEVES Date: 2022-06-02 07:58 Normal [facility] VC VENOUS REFLUX NOEL LMTon 0 05-30-2022 VC VENOUS REFLUX NOEL LMT Patient: ADRIANNA BUITRAGO Exam Date: 05/30/2022 : 1950 Gender:F Ordering : DR JENNY BURRIS . Admission #: [id number] Family : Order #: [id number] CLICK HERE TO VIEW EXAM RADIOLOGY REPORT [...] thrombus. Compressibility: Normal. Flow: Deep venous reflux. 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I Patient: ADRIANNA BUITRAGO Exam Date: 05/26/2022 : 1950 Gender:F Ordering : MELO JENKINS Admission #: [id number] Family : DR JENNY BURRIS . Order #: [id number] CLICK HERE TO VIEW EXAM RADIOLOGY REPORT [...] Garcia M.D. on 05/27/2022 at 13:00 Normal [facility] XR LSPINE MIN 4 VIEWSon [...] WEI GARCIA Date: 2022-05-23 14:32 Normal [facility] Covid-19 PCR (CVDTB)on 05-07 SARS-CoV-2 (COVID-19) RNA MARY+probe Ql (Unsp spec) Not detected Normal NOT DETECTED [facility] Comment on above: Result Comment: This test is not yet approved or cleared by the [place] FDA. When there are no FDA-approved or cleared tests available, and other criteria are met, FDA can make tests available under an emergency access mechanism called an Emergency Use Authorization (EUA). The EUA for this test is supported by the [place] of Health and Human Service's (HHS's) declaration [...] SARS-CoV-2. Performed By: #### C VDTBH #### [facility] [address] [place] [address] Dr. Zuly Medina INFLUENZA A AND B AGon 05-22 [facility] SEE BELOW Normal [facility] Comment on above: Result Comment: Nega tive for Flu A protein angiten. Infection due to Flu A cannot be ruled out. Flu A angiten in the sample may be below the detection limit of the test. Performed By: #### I NFLUAB #### [facility] [address] [address] [address] Zuly Medina INFLUBNEG SEE BELOW Normal [facility] Comment on above: Result Comment: Nega tive for Flu B protein antigen. Infection due to Flu B cannot be ruled out. Flu B antigen in the sample may be below the detection limit of the test. Performed By: #### I NFLUAB #### [facility] [address] [place] [address] Dr. Zuly Medina INFLUENZA A AG Negative Normal NEGATIVE SEE COMMENT [facility] Comment on above: Performed By: #### I NFLUAB #### [facility] [address] [address] [address] Zuly Medina INFLUENZA B AG Negative Normal NEGATIVE SEE COMMENT [facility] Comment on above: Performed By: #### I NFLUAB #### [facility] [address] [place] [address] Dr. Zuly Medina ECHOCARDIO M/2D COMPLETEon 0 05-14-2022 ECHOCARDIO M/2D COMPLETE Patient: ADRIANNA BUITRAGO Exam Date: 05/14/2022 : 1950 Gender:F Ordering : MELO JENKINS Admission #: [id number] Family : DR JENNY BURRIS . Order #: [id number] CLICK HERE TO VIEW EXAM ECHOCARDIOGRAM REPORT [...] Garcia M.D. on 05/15/2022 at 18:51 Normal [facility] Office Visiton 05-14-2022 Follow-up visit [id number] Shirley Buitrago 1950 Date Provider Department Center 05/14/2022 3848-MELO JENKINS [facility] No family history on file Level of Service:33828 [place] OFFICE/OUTPATIENT ESTABLISHED MOD [facility] 30-39 MIN Reason for Visit and Comments: Hyperlipidemia [182] Valve Disorder [3372] Normal [facility] MG MAMM SCREEN 3D NOEL CADon 01-22-2022 MG MAMM SCREEN 3D NOEL CAD Patient: ADRIANNA BUITRAGO Exam Date: 01/22/2022 : 1950 Gender:F Ordering : DR JENNY BURRIS . Admission #: [id number] Family : Order #: [id number] CLICK HERE TO VIEW EXAM RADIOLOGY REPORT [...] lung cancer at age 59. LOCATION: [facility] BREAST COMPOSITION: Scattered areas fibroglandular [...] M.D. on 01/22/2022 at 14:36 Normal [facility] CALCIUMon 12-31-2021 Calcium [Mass/Vol] 10.0 mg/dL Normal 8.5-10.1 [facility] Comment on above: Performed By: #### C CHIDI SIMS #### [facility] [address] [address] [address] Zuly Medina CREATININEon 12-31-2021 Creatinine [Mass/Vol] 1.33 mg/dL Critically high 0.55-1.02 [facility] Comment on above: Performed By: #### C [place], [place] #### [facility] [address] [address] [address] Zuly Medina EGFR-AF PALESTINIAN 48 mL/min/1.73m2 Critically low >=60 [facility] Comment on above: Performed By: #### C [place], [place] #### [facility] [address] [place] [address] Dr. Zuly Medina EGFR-NON AF PALESTINIAN 39 mL/min/1.73m2 Critically low >=60 [facility] Comment on above: Performed By: #### C [place], [place] #### [facility] [address] [place] [address] Dr. Zuly Medina Covid-19 PCR (CVDTB)on 12-06 SARS-CoV-2 (COVID-19) RNA MARY+probe Ql (Unsp spec) Not detected Normal NOT DETECTED [facility] Comment on above: Result Comment: This test is not yet approved or cleared by the [place] FDA. When there are no FDA-approved or cleared tests available, and other criteria are met, FDA can make tests available under an emergency access mechanism called an Emergency Use Authorization (EUA). The EUA for this test is supported by the [employer]in[employer] of Health and Human Service's (HHS's) declaration [...] SARS-CoV-2. Performed By: #### C VDTBH #### [facility] [address] [address] [address] Zuly Medina T4, T3U, FTI LABCORPon 11-15 Free Thyroxine Index 2.7 Normal 1.2-4.9 [facility] Comment on above: Performed By: #### C VDTBH #### [facility] [address] [address] [address] Zuly Medina T3 Uptake 32 % Normal 24-39 [facility] Comment on above: Performed By: #### C VDTBH #### [facility] [address] [address] [address] Zuly Medina T4 [Mass/Vol] 8.5 ug/dL Normal 4.5-12.0 [facility] Comment on above: Performed By: #### C VDTBH #### [facility] [address] [place] [address] Dr. Zuly Medina VIT D 25-OH LABCORPon 2021 Vitamin D, 25-Hydroxy 114.0 ng/mL Critically high 30.0-100.0 [facility] Comment on above: Result Comment: Jenny min D deficiency has been defined by the [place] of [employer] and an Endocrine Society practice guideline as a level of serum 25-OH vitamin D less than 20 ng/mL (1,2). The Endocrine Society went on to further define vitamin D insufficiency as a level between 21 and 29 ng/mL (2). 1. IOM ([place] of [employer]). 2010. Dietary reference intakes for calcium and D. Steve [place]: The National Academies Press. 2. Anel AZEVEDO, Chandrika [place], Ronaldo MCCALLUM, et al. Evaluation, treatment, and prevention of vitamin D deficiency: an Endocrine Society clinical practice guideline. JCEM. 2010; 96(7):1911-30. Performed By: #### V ITADLC #### [facility] [address] [place] [address] Dr. Zuly Medina CBC AUTO DIFFon 11-14-2021 BASO # 0.0 103/ul Normal 0.0-0.1 [facility] Comment on above: Performed By: #### C CHIDI SIMS #### [facility] [address] [place] [address] Dr. Zuly Medina Basophils/100 WBC (Bld) 0.4 % Normal 0.2-2.0 [facility] Comment on above: Performed By: #### CHIDI MCDANIEL #### [facility] [address] [place] [address] Dr. Zuly Medina EO # 0.3 103/ul Normal 0.0-0.7 [facility] Comment on above: Performed By: #### Oliverio SIMS CA #### [facility] [address] [place] [address] Dr. Zuly Medina Eosinophils/100 WBC (Bld) 4.1 % Normal 0.9-7.0 [facility] Comment on above: Performed By: #### CHIDI MCDANIEL #### [facility] [address] [place] [address] Dr. Zuly Medina Erythrocyte distribution width (RBC) [Ratio] 14.1 % Normal 11.0-15.0 [facility] Comment on above: Performed By: #### CHIDI MCDANIEL #### [facility] [address] [place] [address] Dr. Zuly Medina Hematocrit (Bld) [Volume fraction] 36.0 % Normal 36.0-48.0 [facility] Comment on above: Performed By: #### CHIDI MCDANIEL #### [facility] [address] [place] [address] Dr. Zuly Medina Hemoglobin (Bld) [Mass/Vol] 11.6 g/dL Critically low 12.0-16.0 [facility] Comment on above: Performed By: #### CHIDI MCDANIEL #### [facility] [address] [place] [address] Dr. Zuly Medina IG # 0.01 10e3/ul Normal 0.00-0.03 [facility] Comment on above: Performed By: #### CHIDI MCDANIEL #### [facility] [address] [place] [address] Dr. Zuly Medina IG % 0.1 % Normal 0.0-0.5 [facility] Comment on above: Performed By: #### C [place], [place] #### [facility] [address] [address] [address] Zuly Medina LYMPH # 1.3 103/ul Normal 1.2-3.8 [facility] Comment on above: Performed By: #### C [place], [place] #### [facility] [address] [address] [address] Zuly Medina Lymphocytes/100 WBC (Bld) 19.3 % Critically low 20.5-60.0 [facility] Comment on above: Performed By: #### C [place], [place] #### [facility] [address] [address] [address] Zuly Medina MANUAL DIFF REQ NO Normal [facility] Comment on above: Performed By: #### C [place], [place] #### [facility] [address] [place] [address] Dr. Zuly Medina MCH (RBC) [Entitic mass] 31.4 pg Normal 26.7-34.0 [facility] Comment on above: Performed By: #### Oliverio SIMS, CA #### [facility] [address] [address] [address] Zuly Medina MCHC (RBC) [Mass/Vol] 32.2 g/dL Normal 29.9-35.2 [facility] Comment on above: Performed By: #### Oliverio SIMS, [place] #### [facility] [address] [place] [address] Dr. Zuly Medina MCV (RBC) [Entitic vol] 97.6 fL Normal 81.0-99.0 [facility] Comment on above: Performed By: #### C [place], [place] #### [facility] [address] [place] [address] Dr. Zuly Medina MONO # 0.8 103/ul Normal 0.3-0.8 [facility] Comment on above: Performed By: #### C [place], [place] #### [facility] [address] [place] [address] Dr. Zuly Medina Monocytes/100 WBC (Bld) 11.8 % Normal 1.7-12.0 [facility] Comment on above: Performed By: #### CHIDI MCDANIEL #### [facility] [address] [place] [address] Dr. Zuly Medina NEUT # 4.4 103/ul Normal 1.4-6.5 [facility] Comment on above: Performed By: #### CHIDI MCDANIEL #### [facility] [address] [place] [address] Dr. Zuly Medina Neutrophils/100 WBC (Bld) 64.3 % Normal 43.0-75.0 [facility] Comment on above: Performed By: #### CHIDI MCDANIEL #### [facility] [address] [place] [address] Dr. Zuly Medina Platelet mean volume (Bld) [Entitic vol] 10.1 fL Normal 9.5-13.5 [facility] Comment on above: Performed By: #### CHIDI MCDANIEL #### [facility] [address] [place] [address] Dr. Zuly Medina PLT 311 103/ul Normal 150-450 [facility] Comment on above: Performed By: #### CHIDI MCDANIEL #### [facility] [address] [place] [address] Dr. Zuly Medina RBC 3.69 106/ul Critically low 4.20-5.40 [facility] Comment on above: Performed By: #### CHIDI MCDANIEL #### [facility] [address] [place] [address] Dr. Zuly Medina WBC 6.9 103/ul Normal 4.0-11.0 [facility] Comment on above: Performed By: #### CHIDI MCDANIEL #### [facility] [address] [place] [address] Dr. Zuly Medina GLYCOHEMOGLOBIN A1Con 2021 ADA RECOMMENDATION SEE BELOW Normal [facility] Comment on above: Result Comment: ADA RECOMMENDED LIMIT 4.0 - 6.0 ADA THERAPEUTIC TARGET < 7.0 ACTION SUGGESTED > 7.0 Performed By: #### A 1C #### [facility] [address] [place] [address] Dr. Zuly Medina Glucose [Mass/Vol] 103 mg/dL Normal [facility] Comment on above: Performed By: #### A 1C #### [facility] [address] [place] [address] Dr. Zuly Medina HbA1c (Bld) [Mass fraction] 5.2 % Normal 4.5-6.2 [facility] Comment on above: Performed By: #### A 1C #### [facility] [address] [place] [address] Dr. Zuly Medina IRONon 11-14-2021 Iron [Mass/Vol] 60.0 ug/dL Normal 50.0-170.0 [facility] Comment on above: Performed By: #### C VDTB #### [facility] [address] [place] [address] Dr. Zuly Medina LIPID PROFILEon 11-14-2021 CHOL-HDL RATIO NORM SEE BELOW Normal [facility] Comment on above: Result Comment: 3.3 - 4.4 LOW RISK 4.4 - 7.1 AVERAGE RISK 7.1 - 11.0 MODERATE RISK >11.0 HIGH RISK Performed By: #### CHIDI MCDANIEL #### [facility] [address] [place] [address] Dr. Zuly Medina Cholesterol [Mass/Vol] 145 mg/dL Normal <=200 [facility] Comment on above: Performed By: #### CHIDI MCDANIEL #### [facility] [address] [place] [address] Dr. Zuly Medina Cholesterol in HDL [Mass/Vol] 65 mg/dL Critically high 40-60 [facility] Comment on above: Performed By: #### CHIDI MCDANIEL #### [facility] [address] [place] [address] Dr. Zuly Medina Cholesterol in LDL [Mass/Vol] 72.2 mg/dL Normal [facility] Comment on above: Performed By: #### CHIDI MCDANIEL #### [facility] [address] [place] [address] Dr. Zuly Medina Cholesterol.total/Ch olesterol in HDL [Mass ratio] 2.2 {ratio} Normal [facility] Comment on above: Performed By: #### CHIDI MCDANIEL #### [facility] [address] [address] [address] Zuly Medina HDL NORMAL > or = 60 mg/dl - LO W CARDIOVASCULAR RISK <40 mg/dl - HIGH CARDIOVASCULAR RISK Normal [facility] Comment on above: Performed By: #### Oliverio SIMS [place] #### [facility] [address] [address] [address] Zuly Medina LDL CALC NORMAL SEE BELOW Normal [facility] Comment on above: Result Comment: <100 mg/dl OPTIMAL 100 - 129 mg/dl NEAR OR ABOVE OPTIMAL 130 - 159 mg/dl BORDERLINE HIGH 160 - 189 mg/dl HIGH >190 mg/dl VERY HIGH Performed By: #### Oliverio SIMS CA #### [facility] [address] [address] [address] Zuly Medina Triglyceride [Mass/Vol] 39 mg/dL Normal <=150 [facility] Comment on above: Performed By: #### CHIDI MCDANIEL #### [facility] [address] [address] [address] Zuly Medina VLDL CALC 7.8 mg/dL Normal [facility] Comment on above: Performed By: #### Oliverio SIMS [place] #### [facility] [address] [address] [address] Zuly Medina PROF 14(COMP METB)on 022 Albumin [Mass/Vol] 3.8 g/dL Normal 3.4-5.0 [facility] Comment on above: Performed By: #### CHIDI MCDANIEL #### [facility] [address] [address] [address] Zuly Medina Albumin/Globulin [Mass ratio] 1.4 {ratio} Normal [facility] Comment on above: Performed By: #### Oliverio SIMS CA #### [facility] [address] [address] [address] Zuly Medina ALP [Catalytic activity/Vol] 41 U/L Critically low 46-116 [facility] Comment on above: Performed By: #### Oliverio SIMS, [place] #### [facility] [address] [address] [address] Zuly Medina ALT [Catalytic activity/Vol] 20 U/L Normal 14-59 [facility] Comment on above: Performed By: #### Oliverio SIMS, [place] #### [facility] [address] [address] [address] Zuly Medina Anion gap [Moles/Vol] 8.2 mmol/L Normal [facility] Comment on above: Performed By: #### C [place], [place] #### [facility] [address] [address] [address] Zuly Medina AST [Catalytic activity/Vol] 25 U/L Normal 15-37 [facility] Comment on above: Performed By: #### Oliverio SIMS, [place] #### [facility] [address] [address] [address] Zuly Medina Bilirubin [Mass/Vol] 0.4 mg/dL Normal 0.2-1.0 [facility] Comment on above: Performed By: #### Oliverio SIMS, [place] #### [facility] [address] [address] [address] Zuly Medina Calcium [Mass/Vol] 10.1 mg/dL Normal 8.5-10.1 [facility] Comment on above: Performed By: #### Oliverio SIMS, [place] #### [facility] [address] [address] [address] Zuly Medina Chloride [Moles/Vol] 104 mmol/L Normal 98-107 [facility] Comment on above: Performed By: #### Oliverio SIMS, [place] #### [facility] [address] [address] [address] Zuly Medina CO2 [Moles/Vol] 31.6 mmol/L Normal 21.0-32.0 [facility] Comment on above: Performed By: #### Oliverio SIMS, [place] #### [facility] [address] [address] [address] Zuly Medina Creatinine [Mass/Vol] 1.44 mg/dL Critically high 0.55-1.02 [facility] Comment on above: Performed By: #### Oliverio SIMS, CA #### [facility] [address] [place] [address] Dr. Zuly Medina EGFR-AF PALESTINIAN 43 mL/min/1.73m2 Critically low >=60 [facility] Comment on above: Performed By: #### Oliverio SIMS, [place] #### [facility] [address] [address] [address] Zuly Medina EGFR-NON AF PALESTINIAN 36 mL/min/1.73m2 Critically low >=60 [facility] Comment on above: Performed By: #### Oliverio SIMS CA #### [facility] [address] [place] [address] Dr. Zuly Medina Globulin (S) [Mass/Vol] 2.8 g/dL Normal [facility] Comment on above: Performed By: #### Oliverio SIMS [place] #### [facility] [address] [place] [address] Dr. Zuly Medina Glucose [Mass/Vol] 100 mg/dL Normal 74-106 [facility] Comment on above: Performed By: #### Oliverio SIMS [place] #### [facility] [address] [place] [address] Dr. Zuly Medina Potassium [Moles/Vol] 3.8 mmol/L Normal 3.5-5.1 [facility] Comment on above: Performed By: #### Oliverio SIMS, [place] #### [facility] [address] [place] [address] Dr. Zuly Medina Protein [Mass/Vol] 6.6 g/dL Normal 6.4-8.2 [facility] Comment on above: Performed By: #### Oliverio SIMS [place] #### [facility] [address] [place] [address] Dr. Zuly Medina Sodium [Moles/Vol] 140 mmol/L Normal 136-145 [facility] Comment on above: Performed By: #### Oliverio SIMS [place] #### [facility] [address] [place] [address] Dr. Zuly Medina Urea nitrogen [Mass/Vol] 28.0 mg/dL Critically high 7.0-18.0 [facility] Comment on above: Performed By: #### C CHIDI SIMS #### [facility] [address] [place] [address] Dr. Zuly Medina Urea nitrogen/Creatinine [Mass ratio] 19.4 mg/mg Normal [facility] Comment on above: Performed By: #### CHIDI MCDANIEL #### [facility] [address] [address] [address] Zuly Medina TSHon 11-14-2021 TSH 1.676 uIU/mL Normal 0.358-3.740 [facility] Comment on above: Performed By: #### CHIDI MCDANIEL #### [facility] [address] [place] [address] Dr. Zuly Medina Covid-19 PCR (CVDTB)on 10-05 SARS-CoV-2 (COVID-19) RNA MARY+probe Ql (Unsp spec) Not detected Normal NOT DETECTED [facility] Comment on above: Result Comment: [...] for this test is supported by the [place] of Health and Human Service's declaration that [...] used). Performed By: #### C VDTBH #### [facility] [address] [address] [address] Zuly Medina CREATININEon 06-15-2022 Creatinine [Mass/Vol] 1.33 mg/dL Critically high 0.55-1.02 [facility] Comment on above: Performed By: #### CHIDI MCDANIEL #### [facility] [address] [place], [place] [address] Dr. Zuly Medina EGFR-AF PALESTINIAN 48 mL/min/1.73m2 Critically low >=60 [facility] Comment on above: Performed By: #### CHIDI MCDANIEL #### [facility] [address] [place], [place] [address] Dr. Zuly Medina EGFR-NON AF PALESTINIAN 39 mL/min/1.73m2 Critically low >=60 [facility] Comment on above: Performed By: #### CHIDI MCDANIEL #### [facility] [address] [address] [address] Zuly Medina MRI BRAIN WO W [...] WEI GARCIA Date: 2021-09-18 16:23 Normal [facility] Covid-19 PCR (CVDTB)on 08-05 SARS-CoV-2 (COVID-19) RNA MARY+probe Ql (Unsp spec) Not detected Normal NOT DETECTED [facility] Comment on above: Result Comment: This test is not yet approved or cleared by the [place] FDA. When there are no FDA-approved or cleared tests available, and other criteria are met, FDA can make tests available under an emergency access mechanism called an Emergency Use Authorization (EUA). The EUA for this test is supported by the [place] of Health and Human Service's (HHS's) declaration [...] SARS-CoV-2. Performed By: #### C VDTB #### [facility] [address] [place] [address] Dr. Zuly Medina SYMPTOMATIC COVID-19 ANTIGEN on 08-23-2021 EUA Statement SEE BELOW Normal [facility] Comment on above: Result [...] is revoked sooner. Performed By: #### C VDTB #### [facility] [address] [address] [address] Zuly Medina SARS-CoV-2 (COVID-19) RNA MARY+probe Ql (Unsp spec) Negative Normal NEGATIVE [facility] Comment on above: Performed By: #### C [facility] #### [facility] [address] [place], [place] [address] Dr. Zuly Medina Q - Diptheria/Tetanus Abon 0 08-09-2021 DIPHTHERIA ANTITOXOID 0.25 IU/mL Normal [facility] Comment on above: Order Comment: [facility] performed at: [facility], [address], [place], [place], , Cardroom Worker: Sahil Dyson M.D.,PhD [facility] Date/Time: [facility] [...] analytical performance characteristics have been determined by [facility], [place], [place]. It has not been cleared or approved by the U.S. Food and Drug Administration. This assay has been validated pursuant to the CLIA regulations and is used for clinical purposes. Performed By: #### 2 4729W, 41343S, 72908, 63349W, 77806Q, 57523K #### [facility] [address] [place] [address] TETANUS ANTITOXOID 4.67 IU/mL Normal [facility] Comment on above: Order Comment: [facility] performed at: [facility], [address] [address], [place], [place], , Cardroom Worker: Sahil Dyson M.D.,PhD [facility] Date/Time: [facility] [...] analytical performance characteristics have been determined by [employer]. It has not been cleared or approved by the U.S. Food and Drug Administration. This assay has been validated pursuant to the CLIA regulations and is used for clinical purposes. Performed By: #### 2 4729W, 64288D, 71780, 41937Y, 72141U, 03954N #### [facility] [address] [place] [address] Q - IGA,SERUMon 08-09-2021 IMMUNOGLOBULIN A 125 mg/dL Normal 70-320 [facility] Comment on above: Order Comment: [facility] performed at: [employer], [facility], [address] [place] [address], [address] [place] [address], [address] [place] [address], Cardroom Worker: Thony Haley MD [facility] Date/Time: [facility] Results Received Date/Time: [facility] Reported Date/Time: Performed By: #### 2 4729W, 69981R, 32803, 05176T, 97740F, 60087R #### [facility] [address] [place] [address] Q - IGE,SERUMon 08-09-2021 IMMUNOGLOBULIN E 44 kU/L Normal [facility] Comment on above: Order Comment: [facility] performed at: [employer], [facility], [address] , [address] [place] [address], [address], Cardroom Worker: Thony Haley MD [facility] Date/Time: [facility] Received Date/Time: [facility] Reported Date/Time: Performed By: #### 2 4729W, 39670H, 86451, 15993Z, 81612V, 45925E #### [facility] [address] [place] [address] Q - IGG,SERUMon 08-09-2021 IMMUNOGLOBULIN G 895 mg/dL Normal 600-1540 [facility] Comment on above: Order Comment: [facility] performed at: [employer], [facility], [address], [address] [place] [address], [address] [place] [address], Cardroom Worker: Thony Haley MD [facility] Date/Time: [facility] Results Received Date/Time: [facility] Reported Date/Time: Performed By: #### 2 4729W, 58802Z, 39522, 35387N, 07740S, 19144L #### [facility] [address] [place] [address] Q - IGM,SERUMon 08-09-2021 IMMUNOGLOBULIN M 158 mg/dL Normal 50-300 [facility] Comment on above: Order Comment: [facility] performed at: [employer], [facility], [address], [address] [place] [address], [address] [place] [address], Cardroom Worker: Thony Haley MD [facility] Date/Time: [facility] Results Received Date/Time: [facility] Reported Date/Time: Performed By: #### 2 4729W, 85446C, 65294, 05905R, 13396X, 97289F #### [facility] [address] [place] [address] Q - Strep pneumo Ab 23 serot ypeson 08-09-2021 SEROTYPE 1 (1) 9.5 Normal [facility] Comment on above: Order Comment: [facility] performed at: [employer], [facility],, [address] [place], [address], Cardroom Worker: Osiris Galdamez MD,PhD,BHANU [facility] Date/Time: [facility] Results Received Date/Time: [facility] Reported Date/Time: Performed By: #### 2 4729W, 54260I, 89426, 53038N, 35744H, 38004Q #### [facility] [address] [place] [address] SEROTYPE 12 (12F) 1.0 [facility] Comment on above: Order Comment: [facility] performed at: [facility], [facility],, [address] [place], [place] [address], [place], , Cardroom Worker: Osiris Galdamez MD,PhD,BHANU [facility] Date/Time: [facility] Results Received Date/Time: [facility] Reported Date/Time: Performed By: #### 2 4729W, 62518P, 64600, 24470P, 10751V, 01184U #### [facility] [address] [place] [address] SEROTYPE 14 (14) 3.3 [facility] Comment on above: Order Comment: [facility] performed at: [facility], [facility],, [address] [place], [place] [address], , Cardroom Worker: Osiris Galdamez MD,PhD,BHANU [facility] Date/Time: [facility] Results Received Date/Time: [facility] Reported Date/Time: Performed By: #### 2 4729W, 27922G, 27521, 71638C, 85117H, 73111K #### [facility] [address] [place] [address] SEROTYPE 17 (17F) 1.2 [facility] Comment on above: Order Comment: [facility] performed at: [facility], [facility],, [address] [place] [address], , Cardroom Worker: Osiris Galdamez MD,PhD,BHANU [facility] Date/Time: [facility] Results Received Date/Time: [facility] Reported Date/Time: Performed By: #### 2 4729W, 98448H, 31313, 65743M, 25697Z, 64056C #### [facility] [address] [place] [address] SEROTYPE 19 (19F) 2.8 Normal [facility] Comment on above: Order Comment: [facility] performed at: , [facility],, [address] [place] [address], , Cardroom Worker: Osiris Galdamez MD,PhD,BHANU [facility] Date/Time: [facility] Results Received Date/Time: [facility] Reported Date/Time: Performed By: #### 2 4729W, 05259B, 67896, 20115Q, 41386A, 56040V #### [facility] [address] [place] [address] SEROTYPE 2 (2) 7.2 Normal [facility] Comment on above: Order Comment: [facility] performed at: [employer], [facility],, [address] [place] [address], , Cardroom Worker: Osiris Galdamez MD,PhD,BHANU [facility] Date/Time: [facility] Results Received Date/Time: [facility] Reported Date/Time: Performed By: #### 2 4729W, 76031F, 32052, 18166B, 70540H, 83802G #### [facility] [address] [place] [address] SEROTYPE 20 (20) 3.4 Normal [facility] Comment on above: Order Comment: [facility] performed at: [facility], [facility],, [address] [place] [address], , Cardroom Worker: Osiris Galdamez MD,PhD,BHANU [facility] Date/Time: [facility] Results Received Date/Time: [facility] Reported Date/Time: Performed By: #### 2 4729W, 42465S, 63870, 64667Y, 27819M, 39535W #### [facility] [address] [place] [address] SEROTYPE 22 (22F) 5.9 Normal [facility] Comment on above: Order Comment: [facility] performed at: [facility], [facility],, [address] [place] [address], , Cardroom Worker: Osiris Galdamez MD,PhD,BHANU [facility] Date/Time: [facility] Results Received Date/Time: [facility] Reported Date/Time: Performed By: #### 2 4729W, 71290L, 60640, 11364Q, 72281N, 01162T #### [facility] Default [address] [place] [address] SEROTYPE 23 (23F) 5.2 Normal [facility] Comment on above: Order Comment: [facility] performed at: [facility], [facility],, [address] [place] [address], , Cardroom Worker: Osiris Galdamez MD,PhD,BHANU [facility] Date/Time: [facility] Results Received Date/Time: [facility] Reported Date/Time: Performed By: #### 2 4729W, 73299C, 60916, 73293I, 46786B, 47725Y #### [facility] [address] [place] [address] SEROTYPE 26 (6B) 18.8 Normal [facility] Comment on above: Order Comment: [facility] performed at: [facility], [facility],, [address] [place] [address], , Cardroom Worker: Osiris Galdamez MD,PhD,BHANU [facility] Date/Time: [facility] Results Received Date/Time: [facility] Reported Date/Time: Performed By: #### 2 4729W, 33708V, 14851, 17153A, 96784S, 81946O #### [facility] [address] [place] [address] SEROTYPE 3 (3) 1.3 Normal [facility] Comment on above: Order Comment: [facility] performed at: [facility], [facility],, [address] [place] [address], , Cardroom Worker: Osiris Galdamez MD,PhD,BHANU [facility] Date/Time: [facility] Results Received Date/Time: [facility] Reported Date/Time: Performed By: #### 2 4729W, 87428S, 85588, 44390K, 68479R, 54741X #### [facility] [address] [place] [address] SEROTYPE 34 (10A) 0.9 Normal [facility] Comment on above: Order Comment: [facility] performed at: [facility], [facility],, [address] [place], [place], , Cardroom Worker: Osiris Galdamez MD,PhD,BHANU [facility] Date/Time: [facility] Results Received Date/Time: [facility] Reported Date/Time: Performed By: #### 2 4729W, 64091G, 91603, 36456W, 16415C, 61178B #### [facility] Default [address] [place] [address] SEROTYPE 4 (4) <0.3 Normal [facility] Line Service Person Comment on above: Order Comment: [facility] performed at: [facility], [facility] [facility],, [address] [place] [address], , Cardroom Worker: Osiris Galdamez MD,PhD,BHANU [facility] Date/Time: [facility] Results Received Date/Time: [facility] Reported Date/Time: Performed By: #### 2 4729W, 74445A, 70462, 23235W, 41291K, 15562B #### [facility] Default [address] [place] [address] SEROTYPE 43 (11A) 1.1 Normal [facility] Specialist Comment on above: Order Comment: [facility] performed at: [facility], [facility],, [address] [place] [address], , Cardroom Worker: Osiris Galdamez MD,PhD,BHANU [facility] Date/Time: [facility] Results Received Date/Time: [facility] Reported Date/Time: Performed By: #### 2 4729W, 58410H, 96307, 04196D, 63880A, 36011Z #### [facility] Default [address] [place] [address] SEROTYPE 5 (5) 2.3 Normal [facility] Service Person Comment on above: Order Comment: [facility] performed at: [facility], [facility],, [address] [place] [address], , Cardroom Worker: Osiris Galdamez MD,PhD,BHANU [facility] Date/Time: [facility] Results Received Date/Time: [facility] Reported Date/Time: [id number] Performed By: #### 2 4729W, 89462J, 47571, 31340M, 75195Y, 57118U #### [facility] Default [address] [place] [address] SEROTYPE 51 (7F) 8.4 Normal [facility] Comment on above: Order Comment: [facility] performed at: [facility], [facility],, [address] [place], [place], , Cardroom Worker: Osiris Galdamez MD,PhD,BHANU [facility] Date/Time: [facility] Results Received Date/Time: [facility] Reported Date/Time: Performed By: #### 2 4729W, 42192O, 62017, 18273J, 64390L, 53864C #### [facility] Default [address] [place] [address] SEROTYPE 54 (15B) 2.3 Normal [facility] Comment on above: Order Comment: [facility] performed at: [facility], [facility],, [facility] [place], , Cardroom Worker: Osiris Galdamez MD,PhD,BHANU [facility] Date/Time: [facility] Results Received Date/Time: [facility] Reported Date/Time: Performed By: #### 2 4729W, 61905I, 20294, 83325N, 19864E, 71308X #### [facility] Default [address] [place] [address] SEROTYPE 56 (18C) 18.7 [facility] Comment on above: Order Comment: [facility] performed at: [facility], [facility],, [address] [place], [place], , Cardroom Worker: Osiris Galdamez MD,PhD,BHANU [facility] Date/Time: [facility] Results Received Date/Time: [facility] Reported Date/Time: Performed By: #### 2 4729W, 77247E, 63238, 34051X, 57988A, 86156O #### [facility] Default [address] [place] [address] SEROTYPE 57 (19A) 15.6 Normal [facility] Comment on above: Order Comment: [facility] performed at: [facility], [facility],, [address] [place], [place], , Cardroom Worker: Osiris Galdamez MD,PhD,BHANU [facility] Date/Time: [facility] Results Received Date/Time: [facility] Reported Date/Time: Performed By: #### 2 4729W, 58698B, 63912, 01849J, 51462N, 47454S #### [facility] Default [address] [place] [address] SEROTYPE 68 (9V) 2.1 Normal [facility] Comment on above: Order Comment: [facility] performed at: [facility], [facility],, [facility] [place], , Cardroom Worker: Osiris Galdamez MD,PhD,BHANU [facility] Date/Time: [facility] Results Received Date/Time: [facility] Reported Date/Time: Performed By: #### 2 4729W, 19195B, 38566, 86725A, 41883O, 98049N #### [facility] Default [address] [place] [address] SEROTYPE 70 (33F) 28.9 Normal [facility] Comment on above: Order Comment: [facility] performed at: [facility], [facility],, [address] [place], [place], , Cardroom Worker: Osiris Galdamez MD,PhD,BHANU [facility] Date/Time: [facility] [...] serotype-specific titers may have less robust responses. [facility] uses a multi-analyte immunodetection (MAID) method. The method employs the [employer] flow cytometric system which measures multiple analytes [...] analytical performance characteristics have been determined by [facility]. It has not been cleared or approved by FDA. This assay has been validated pursuant to the CLIA regulations and used for clinical purposes. For additional information, please refer to http://education.Kiddie Kist.Viveve/faq/QLW681 (This link is being provided for informational/ educational purposes only.) Performed By: #### 2 4729W, 53818R, 06281, 82977Q, 97701P, 15429F #### [facility] Default [address] [place] [address] SEROTYPE 8 (8) 14.6 Normal [facility] Line Service Person Comment on above: Order Comment: [facility] performed at: [employer], [facility],, [address] [place], [place], , Cardroom Worker: Osiris Galdamez MD,PhD,BHANU [facility] Collection Date/Time: [facility] Results Received Date/Time: [facility] Reported Date/Time: Performed By: #### 2 4729W, 80764W, 88451, 13993T, 23349W, 37465O #### [facility] Default [address] [place] [address] SEROTYPE 9 (9N) 1.0 Normal [facility] Line Service Person Comment on above: Order Comment: [facility] performed at: [employer], [facility],, [address] [place] [address], , Cardroom Worker: Osiris Galdamez MD,PhD,BHANU [facility] Date/Time: [facility] Results Received Date/Time: [facility] Reported Date/Time: Performed By: #### 2 4729W, 02085X, 17410, 84527H, 23011S, 59863P #### [facility] Default [address] [place] [address] CT SINUSES WO CONon 08-06-19 CT SINUSES [...] or chronic sinusitis. Electronically authenticated by: WEI GARICA Date: 2021-08-05 08:48 Normal [facility] MG MAMM DX 3D LT CADon 08-05 MG MAMM DX 3D LT CAD Patient: ADRIANNA BUITRAGO Exam Date: 08/05/2021 : 1950 Gender:F Ordering : DR JENNY BURRIS . Admission #: [id number] Family : Order #: [id number] CLICK HERE TO VIEW EXAM RADIOLOGY REPORT [...] lung cancer at age 59. LOCATION: [facility] BREAST COMPOSITION: Scattered areas fibroglandular [...] M.D. on 08/05/2021 at 09:25 Normal [facility] US BREAST LEFT LIMITEDon US BREAST LEFT LIMITED Patient: ADRIANNA BUITRAGO Exam Date: 08/05/2021 : 1950 Gender:F Ordering : DR JENNY BURRIS . Admission #: [id number] Family : Order #: [id number] CLICK HERE TO VIEW EXAM RADIOLOGY REPORT [...] lung cancer at age 59. LOCATION: [facility] BREAST COMPOSITION: Scattered areas fibroglandular [...] Garcia M.D. on 08/05/2021 at 09:25 Normal [facility] Encounters Encounter Date Encounter Type Care Provider Facility Start: 12-17-2023 End: 12-17-2023 ambulatory RENNY ORLANDO Not Available Start: 12-15-2023 End: 12-15-2023 ambulatory SANDEEP PLEITEZ Not Available Start: 12-03-2023 End: 12-03-2023 ambulatory RENNY ORLANDO Not Available Start: 10-12-2023 End: 10-12-2023 ambulatory KEILA Dukes RAMBASEK Not Available Start: 09-10-2023 End: 09-10-2023 ambulatory RENNY ORLANDO Not Available Start: 08-05-2023 End: 08-06-2023 ambulatory Issa Oliva KAVIN Facility:CD:[id number] Start: 07-15-2023 End: 07-15-2023 ambulatory KEILA Dukes RAMBASEK Not Available Start: 07-02-2023 End: 07-02-2023 ambulatory RENNY ORLANDO Not Available Start: 06-11-2023 End: 06-11-2023 ambulatory RENNY ORLANDO Not Available Start: 06-09-2023 End: 06-10-2023 ambulatory Issa Oliva KAVIN Facility:[facility] Start: 06-02-2023 ambulatory Issa VALE Facility:[facility] Start: 05-28-2023 End: 05-28-2023 ambulatory RENNY ORLANDO Facility:[facility] Start: 05-14-2023 Chart abstracting Renny lorenzana DPM Work Phone: [facility] Start: 05-14-2023 End: 05-14-2023 ambulatory RENNY ORLANDO Not Available Start: 04-30-2023 End: 04-30-2023 ambulatory RENNY ORLANDO Not Available Start: 04-10-2023 End: 04-10-2023 ambulatory MELO JENKINS [facility] Start: 11-25-2022 End: 11-25-2022 ambulatory TEGAN PAIZ [facility] Start: 07-02-2022 End: 07-02-[address] JENNY [...] . Facility:[facility] Start: 05-14-2022 End: 05-14-2022 ambulatory [facility] Start: 01-22-2022 End: 01-23-[address] [...] End: 08-06-[address] JENNY BURRIS . Facility:[facility] Plan of Treatment Date Care Activity Detail Author Start: 12-14-2023 End: 12-14-2023 Patient encounter procedure 12/14/2023 9:20 AM EDT Office Visit [facility] [address] [facility] [address] [place] [address] Keila Faith MD [address] [facility] [address] [place] [address] [facility] Start: 05-14-2023 End: 05-14-2023 Patient encounter procedure 05/14/2023 8:40 AM EST Office Visit [facility] [address] [facility] [address] [place] [address] Renny Orlando, DPSobia [address] [facility] [address] [place] [address] [facility] Start: 12-05-2022 Influenza vaccination Influenza Vacc ine (#1) [facility] Start: 10-27-2018 Pneumococcal Vaccine : 65+ Years (2 - PPSV23 or PCV20) Pneumococcal Vaccine: 65+ Years (2 - PPSV23 or PCV20) [facility] Start: 1989 Screening for malign ant neoplasm of breast Mammogram [facility] Start: 1950 Screening for malign ant neoplasm of colon [facility] Payers Date Payer Category Payer Unknown [employer] [id number] 2021-Present [address] [place] [address] [id number] 2014 Medicare MEDICARE MEDICAR E PART B [id number] 2014-Present [address] [address] [place] [address] Medicare [id number] 1959 Medicare [id number] 1959 Unknown [id number] 1950 Unknown [id number] [id number]3 1950 Unknown [id number] 2.16.840.1.046976.3.579.2.593 1949 Unknown [id number] 2.16.840.1.618149.3.579.2.593 1949 Unknown [id number] 2.16.840.1.701746.3.579.2.593 1949 Unknown [id number] 2.16.840.1.397949.3.579.2.593 1949 Unknown [id number] 2.16.840.1.461570.3.579.2.593 1949 Unknown [id number] 2.16.840.1.475756.3.579.2.593 1949 Unknown [id number] 2.16.840.1.694529.3.579.2.593 1949 Unknown [id number] 2.16.840.1.926390.3.579.2.593 1949 Unknown [id number] 2.16.840.1.655619.3.579.2.593 1949 Unknown [id number] 2.16.840.1.193777.3.579.2.593 1949 Unknown [id number] 2.16.840.1.909735.3.579.2.593 1949 Unknown [id number] 2.16.840.1.589727.3.579.2.593 1949 Unknown [id number] 2.16.840.1.733270.3.579.2.593 1949 Unknown [id number] 2.16.840.1.333345.3.579.2.593 1949 Unknown [id number] 2.16.840.1.177302.3.579.2.593 1949 Unknown [id number] 2.16.840.1.014104.3.579.2.727 1949 Unknown [id number] 2.16.840.1.678303.3.579.2.727 1949 Unknown [id number] 2.16.840.1.966059.3.579.2.1259 1949 Unknown [id number] 2.16.840.1.522236.3.579.2.1259 1949 Unknown [id number] 2.16.840.1.126348.3.579.2.1258 1949 Unknown [id number] 2.16.840.1.374499.3.579.2.9 1949 Unknown [id number] 2.16.840.1.847550.3.579.2.1258 1949 Unknown [id number] 2.16.840.1.304453.3.579.2.9 1949 Unknown [id number] 2.16.840.1.833641.3.579.2.1258 1949 Unknown [id number] 2.16.840.1.420192.3.579.2.9 1949 Unknown [id number] 2.16.840.1.551110.3.579.2.1258 1949 Unknown [id number] 2.16.840.1.862496.3.579.2.9 1949 Unknown [id number] 2.16.840.1.237296.3.579.2.1259 Social History Date Type Detail Facility Start: 04-30-2023 Tobacco smoking stat [facility] Ex-smoker [facility] End: 04-06-2006 History of tobacco use Current smoker [facility] End: 04-06-2006 History of tobacco use Cigarette Smoker [facility] History of tobacco use Passive smoker [...] Sex Assigned At Not on file [facility] Clinical Notes 05-14-2022 to 06-09-2023 Note [...] 1 tab(s), Oral, Daily Flonase 0.05 mg/inh [place], 2 spray(s), Nasal, Daily lactulose 10 g/15 [...] mEq= 1 tab(s (more content not included)... [facility] Comment on above: Result Comment: Elec tronically Signed By: KAVIN FRANKLIN, Issa Pacheco.julia\Date and Time Signed: 06/09/23 08:28 EST 04-10-2023 [...] nostril in the morning and at bedtime. xmvsghypar-skdqsell-ipczkbnbdv (Breztri Aerosphere) 160-9-4.8 mcg/actuation HFA aerosol inhaler [...] as needed Melo Jenkins MD Interventional Cardiology [facility] (more content not included)... [facility] 04-10-2023 Note Patient here for 6 m [...] All other systems reviewed and are negative. [facility] 11-25-2022 Note Remains stable, ches t pain resolved and no acute concerns currently [facility] 11-25-2022 Note Current echo 05/2022- Mild MR and no concerning symptoms currently [facility] 11-25-2022 Note Current echo 05/2022- Mild MR and no concerning symptoms currently [facility] 11-25-2022 Note Continue pravastatin 10 mg daily and fenofibrate- pt states PCP orders her annual labs F/U with PCP [facility] 11-25-2022 Note UTP CARDIOLOGY PROGR ESS NOTE [...] Prior to Visit Medication Sig Dispense Refill dpktrzqtry-rjvjegvd-neoidjhvyj (Breztri Aerosphere) 160-9-4.8 mcg/actuation HFA aerosol inhaler [...] no acute concerns currently RTC 4-6 months [facility] 05-26-2022 Note CARDIAC STRESS TEST Requesting Physician: Procedure Date:05/26/2022 This is a treadmill stress test with myocardial perfusion imaging, performed at the [facility] on 05/26/2022. Informed consent was [...] +7.5 is associated with low risk for director long term care cardiac events. 4. Myocardial perfusion images will be reported separately. [facility] 05-14-2022 Note Cardiology Follow Up [...] Prior to Visit Medication Sig Dispense Refill spumzwggng-xsbdzvic-dycrpcdufw (Breztri Aerosphere) 160-9-4.8 mcg/actuation HFA aerosol inhaler [...] red flag symptoms. (more content not included)... [facility] 05-14-2022 Note Patient here for 6 m o follow up valve regurgitation and hyperlipidemia. C/o intermittent chest pressure. She says sometimes she takes aspirin to relieve the pain if it lasts more then a few minutes. Occurs at rest, as well as exercise, but she states it's no worse with exercise. [facility] Summary Purpose Family History No Family History Records FoundNo Family History Records FoundNo Family History Records FoundNo Family History Records FoundNo Family History Records Found Advance Directives No Advanced Directives Records FoundNo Advanced Directives Records FoundNo Advanced Directives Records FoundNo Advanced Directives Records FoundNo Advanced Directives Records Found Additional Source Comments INFORMATION SOURCE (unrecogn ized section and content) DATE CREATED AUTHOR 08/17/2021 [facility] dical Specialist DATE CREATED AUTHOR AUTHOR'S ORGANIZ ATION 07/05/2022 [facility] DATE CREATED AUTHOR AUTHOR'S ORGANIZ ATION 05/11/2023 [facility] DATE CREATED AUTHOR AUTHOR'S ORGANIZ ATION 08/10/2023 [facility] DATE CREATED AUTHOR AUTHOR'S ORGANIZ ATION 12/19/2023 [facility] dical Specialists [employer] Care Teams (unrecognized sec tion and content) [employer] Relationship Specialty Start Date End Date Jenny Burris MD [address] [place] [address] PCP - General Family Medicine 04/30/23 FOR [...] BE BASED ON THE PRIMARY CLINICAL RECORDS. [facility] [email or web address] [facility]. provides no warranty or guarantee of the accuracy or completeness of information in this document.
[2024-01-11 12:17] LABS: Calcium 10.5 mg/dL (8.5-10.1); Carbon Dioxide 27.3 mmol/L (21.0-32.0); Chloride 101 mmol/L (98-107); Estimated GFR (African America 31 (>=60 mL/min/1.73m^2); Estimated GFR (Non-African Ame 25 (>=60 mL/min/1.73m^2); Glucose 91 mg/dL (74-106); Potassium 3.3 mmol/L (3.5-5.1); Sodium 139 mmol/L (136-145)
== END 2024-01-11 11:43 | disposition home or self-care (01) ==
LOC: LAB 11:45
PROVIDERS: PCP Family Medicine; Visit Provider Family Medicine
DX: M81.0 Age-related osteoporosis without current pathological fracture (principal); R79.89 Other specified abnormal findings of blood chemistry
CPT/HCPCS: 36415; 80048; 82310; 82565

== ENCOUNTER 2024-01-14 09:12 | Outpatient (OUT) | payer MEDICARE, OTHER, SELFPAY ==
--- OUTSIDE RECORDS SUMMARY | 2024-01-14 09:30 | XMS_ITS | CCD ---
Demographics Address [address] [place] [address] Preferred Language en Marital Status Hindu Affiliation Unknown Race White Ethnic Group Not or Lati no Author Organization [facility] Care Team Providers Care Recoverer Name Role Phone HOY ., DR ALVARADO [...] Attending Unavailable ALGHOTHANI, MOHAMAD Attending Unavailable TEGAN PAZI Attending Unavailable [place] FRANKLIN, Jenny Ramsay Primary Care Provider [phone] NILIssa Palomino R Attending Unavailable NILL, Issa [...] Amoxicillin; Translations: [AMOXICILLIN] Drug Allergy 3 [facility] Repository (3 sources) Morphine; Translations: [MORPHINE] Drug Allergy 3 [facility] Repository (1 source) Amoxicillin Drug Allergy 3 Itching, Other, Unknown [facility] Healthcare (1 source) Mold Extract Drug Allergy 4 Unknown [facility] (1 source) Morphine Drug Allergy 3 Itching, Other [facility] Healthcare (1 source) Penicillin; Translations: [penicillin] Drug Allergy [facility] Repository (1 source) No Known Medication Allergies; Translations: [No Known Medication Allergies] Propensity to adverse reactions (disorder) [facility] Repository Medications Current Medications Medication [...] mL 01/05/2023 01/05/2024 Active 168 hr cloNIDine 0.86074 mg/hr transdermal system (1 source) Central alpha-2 [...] Range Facility Outside Colonoscopyon 2023 Outside Colonoscopy [id number] 50 [id number]#[id number] 0TIFF [facility] Reminderson 08-07-2023 Reminders - From: Kandi Cesar LPN To: N - Clinical; Sent: 08/07/2023 07:59:01 EDT Show up: 07/06/2033 07:59:00 EDT Subject: colonoscopy recall Due Date/Time: 08/04/2033 07:00:00 EDT Reminder/Recall If patient is in good health, she is due for screening colonoscopy 08/04/2033. [facility] Consent for Procedure/Surger yon 06-10-2023 Consent for Procedure/Surgery [id number] 0TIFF [facility] Ambulatory Visit Summaryon 0 06-09-2023 Ambulatory Visit [...] oral tablet) fluticasone nasal (Flonase 0.05 mg/inh [place]) furosemide (Lasix 20 mg Tab) lactulose (lactulose [...] Unchanged fluticasone nasal (Flonase 0.05 mg/ inh [place]) 2 Sprays Nasal Inhalation Every day Contact [...] [facility] [place] Physician Referralon 024 Physician Referral [id number] 20 [id number] 0TIFF Normal [facility] Office Visiton 04-10-2023 Follow-up visit [id number] Shirley Buitrago ly D 1950 F Date Provider Department Center 04/10/2023 3848-MELO JENKINS [facility] No family history on file Level of Service:72798 [place] OFFICE/OUTPATIENT ESTABLISHED LOW MDM 20 MIN Normal [facility] Office Visiton 11-25-2022 Follow-up visit [id number] Shirley Buitrago ly D 1950 F Date Provider Department Center 11/25/2022 120-CHENCHO TEGAN [facility] Hos No family history on file Level of Service:23835 [place] OFFICE/OUTPATIENT ESTABLISHED MOD MDM 30-39 MIN Normal [facility] CALCIUMon 07-02-2022 Calcium [Mass/Vol] 9.8 mg/dL Normal 8.5-10.1 [place] Comment on above: Performed By: #### C A, CREA #### [facility] [address] [address] [address] Zuly Medina CREATININEon 07-02-2022 Creatinine [Mass/Vol] 1.41 mg/dL Critically high 0.55-1.02 [facility] Comment on above: Performed By: #### C A, CREA #### [facility] [address] [address] [address] Zuly Medina EGFR-AF BERMUDIAN 44 mL/min/1.73m2 Critically low >=60 [facility] Comment on above: Performed By: #### C A, CREA #### [facility] [address] [address] [address] Zuly Medina EGFR-NON AF BERMUDIAN 37 mL/min/1.73m2 Critically low >=60 [facility] Comment on above: Performed By: #### C A, CREA #### [facility] [address] [address] [address] Zuly Medina MRI LSPINE WO CONon [...] by: TESSA ESTEVES Date: 2022-06-02 07:58 Normal [facility] VC VENOUS REFLUX NOEL LMTon 0 05-30-2022 VC VENOUS REFLUX NOEL LMT Patient: ADRIANNA BUITRAGO Exam Date: 05/30/2022 : 1950 Gender:F Ordering : DR JENNY BURRIS . Admission #: [id number] Family : Order #: [id number] CLICK HERE TO VIEW EXAM RADIOLOGY REPORT [...] thrombus. Compressibility: Normal. Flow: Deep venous reflux. Civil Celebrant: Tech Note: Proximal medial lower leg varicose [...] MD on 05/30/2022 at 11:20 Normal [facility] NM STRESS/REST MULTI Patient: ADRIANNA BUITRAGO Exam Date: 05/26/2022 : 1950 Gender:F Ordering : MELO JENKINS Admission #: [id number] Family : DR JENNY BURRIS . Order #: [id number] CLICK HERE TO VIEW EXAM RADIOLOGY REPORT [...] Garcia M.D. on 05/27/2022 at 13:00 Normal [facility] XR LSPINE MIN 4 VIEWSon [...] WEI GARCIA Date: 2022-05-23 14:32 Normal [facility] Covid-19 PCR (CVDTB)on 05-07 SARS-CoV-2 (COVID-19) RNA MARY+probe Ql (Unsp spec) Not detected Normal NOT DETECTED [facility] Comment on above: Result Comment: This test is not yet approved or cleared by the [place] FDA. When there are no FDA-approved or cleared tests available, and other criteria are met, FDA can make tests available under an emergency access mechanism called an Emergency Use Authorization (EUA). The EUA for this test is supported by the Medical Office Receptionist of Health and Human Service's (HHS's) declaration [...] SARS-CoV-2. Performed By: #### C VDTBH #### [facility] [address] [place] [address] Dr. Zuly Medina INFLUENZA A AND B AGon 05-22 [facility] SEE BELOW Normal [facility] Comment on above: Result Comment: Nega tive for Flu A protein angiten. Infection due to Flu A cannot be ruled out. Flu A angiten in the sample may be below the detection limit of the test. Performed By: #### I NFLUAB #### [facility] [address] [address] [address] Zuly Medina INFLUBNEG SEE BELOW Normal [facility] Comment on above: Result Comment: Nega tive for Flu B protein antigen. Infection due to Flu B cannot be ruled out. Flu B antigen in the sample may be below the detection limit of the test. Performed By: #### I NFLUAB #### [facility] [address] [place] [address] Dr. Zuly Medina INFLUENZA A AG Negative Normal NEGATIVE SEE COMMENT [facility] Comment on above: Performed By: #### I NFLUAB #### [facility] [address] [address] [address] Zuly Medina INFLUENZA B AG Negative Normal NEGATIVE SEE COMMENT [facility] Comment on above: Performed By: #### I NFLUAB #### [facility] [address] [place] [address] Dr. Zuly Medina ECHOCARDIO M/2D COMPLETEon 0 05-14-2022 ECHOCARDIO M/2D COMPLETE Patient: ADRIANNA BUITRAGO Exam Date: 05/14/2022 : 1950 Gender:F Ordering : MELO JENKINS Admission #: [id number] Family : DR JENNY BURRIS . Order #: [id number] CLICK HERE TO VIEW EXAM ECHOCARDIOGRAM REPORT [...] Garcia M.D. on 05/15/2022 at 18:51 Normal [facility] Office Visiton 05-14-2022 Follow-up visit [id number] Shirley Buitrago 1950 Date Provider Department Center 05/14/2022 3848-MELO JENKINS [facility] No family history on file Level of Service:15266 [place] OFFICE/OUTPATIENT ESTABLISHED MOD [facility] 30-39 MIN Reason for Visit and Comments: Hyperlipidemia [182] Valve Disorder [3372] Normal [facility] MG MAMM SCREEN 3D NOEL CADon 01-22-2022 MG MAMM SCREEN 3D NOEL CAD Patient: ADRIANNA BUITRAGO Exam Date: 01/22/2022 : 1950 Gender:F Ordering : DR JENNY BURRIS . Admission #: [id number] Family : Order #: [id number] CLICK HERE TO VIEW EXAM RADIOLOGY REPORT [...] lung cancer at age 59. LOCATION: [facility] BREAST COMPOSITION: Scattered areas fibroglandular density. [...] on 01/22/2022 at 14:28 Approved by: Wei Gracia M.D. on 01/22/2022 at 14:36 Normal [facility] CALCIUMon 12-31-2021 Calcium [Mass/Vol] 10.0 mg/dL Normal 8.5-10.1 [place] Comment on above: Performed By: #### C CHIDI SIMS #### [facility] [address] [address] [address] Zuly Medina CREATININEon 12-31-2021 Creatinine [Mass/Vol] 1.33 mg/dL Critically high 0.55-1.02 [facility] Comment on above: Performed By: #### C [place], [place] #### [facility] [address] [address] [address] Zuly Medina EGFR-AF BERMUDIAN 48 mL/min/1.73m2 Critically low >=60 [facility] Comment on above: Performed By: #### C [place], [place] #### [facility] [address] [place] [address] Dr. Zuly Medina EGFR-NON AF BERMUDIAN 39 mL/min/1.73m2 Critically low >=60 [facility] Comment on above: Performed By: #### C [place], [place] #### [facility] [address] [place] [address] Dr. Zuly Medina Covid-19 PCR (CVDTB)on 12-06 SARS-CoV-2 (COVID-19) RNA MARY+probe Ql (Unsp spec) Not detected Normal NOT DETECTED [facility] Comment on above: Result Comment: This test is not yet approved or cleared by the [place] FDA. When there are no FDA-approved or cleared tests available, and other criteria are met, FDA can make tests available under an emergency access mechanism called an Emergency Use Authorization (EUA). The EUA for this test is supported by the [place] of Health and Human Service's (HHS's) declaration [...] SARS-CoV-2. Performed By: #### C VDTBH #### [facility] [address] [address] [address] Zuly Medina T4, T3U, FTI LABCORPon 11-15 Free Thyroxine Index 2.7 Normal 1.2-4.9 [facility] Comment on above: Performed By: #### C VDTBH #### [facility] [address] [address] [address] Zuly Medina T3 Uptake 32 % Normal 24-39 [facility] Comment on above: Performed By: #### C VDTBH #### [facility] [address] [address] [address] Zuly Medina T4 [Mass/Vol] 8.5 ug/dL Normal 4.5-12.0 [facility] Comment on above: Performed By: #### C VDTBH #### [facility] [address] [place] [address] Dr. Zuly Medina VIT D 25-OH LABCORPon 2021 Vitamin D, 25-Hydroxy 114.0 ng/mL Critically high 30.0-100.0 [facility] Comment on above: Result Comment: Jenny min D deficiency has been defined by the [place] of Medicine and an Endocrine Society practice guideline as a level of serum 25-OH vitamin D less than 20 ng/mL (1,2). The Endocrine Society went on to further define vitamin D insufficiency as a level between 21 and 29 ng/mL (2). 1. IOM ([place] of Medicine). 2010. Dietary reference intakes for calcium and D. Steve [place]: The National Academies Press. 2. Anel AZEVEDO, Chandrika [place], Ronaldo MCCALLUM, et al. Evaluation, treatment, and prevention of vitamin D deficiency: an Endocrine Society clinical practice guideline. JCEM. 2010; 96(7):1911-30. Performed By: #### V ITADLC #### [facility] [address] [place] [address] Dr. Zuly Medina CBC AUTO DIFFon 11-14-2021 BASO # 0.0 103/ul Normal 0.0-0.1 [facility] Comment on above: Performed By: #### C CHIDI SIMS #### [facility] [address] [place] [address] Dr. Zuly Medina Basophils/100 WBC (Bld) 0.4 % Normal 0.2-2.0 [facility] Comment on above: Performed By: #### CHIDI MCDANIEL #### [facility] [address] [place] [address] Dr. Zuly Medina EO # 0.3 103/ul Normal 0.0-0.7 [facility] Comment on above: Performed By: #### Oliverio SIMS [place] #### [facility] [address] [place] [address] Dr. Zuly Medina Eosinophils/100 WBC (Bld) 4.1 % Normal 0.9-7.0 [facility] Comment on above: Performed By: #### CHIDI MCDANIEL #### [facility] [address] [place] [address] Dr. Zuly Medina Erythrocyte distribution width (RBC) [Ratio] 14.1 % Normal 11.0-15.0 [facility] Comment on above: Performed By: #### CHIDI MCDANIEL #### [facility] [address] [place] [address] Dr. Zuly Medina Hematocrit (Bld) [Volume fraction] 36.0 % Normal 36.0-48.0 [facility] Comment on above: Performed By: #### CHIDI MCDANIEL #### [facility] [address] [place] [address] Dr. Zuly Medina Hemoglobin (Bld) [Mass/Vol] 11.6 g/dL Critically low 12.0-16.0 [facility] Comment on above: Performed By: #### CHIDI MCDANIEL #### [facility] [address] [place] [address] Dr. Zuly Medina IG # 0.01 10e3/ul Normal 0.00-0.03 [facility] Comment on above: Performed By: #### CHIDI MCDANIEL #### [facility] [address] [place] [address] Dr. Zuly Medina IG % 0.1 % Normal 0.0-0.5 [facility] Comment on above: Performed By: #### C [place], [place] #### [facility] [address] [address] [address] Zuly Medina LYMPH # 1.3 103/ul Normal 1.2-3.8 [facility] Comment on above: Performed By: #### C [place], [place] #### [facility] [address] [address] [address] Zuly Medina Lymphocytes/100 WBC (Bld) 19.3 % Critically low 20.5-60.0 [facility] Comment on above: Performed By: #### C [place], [place] #### [facility] [address] [address] [address] Zuly Medina MANUAL DIFF REQ NO Normal [facility] Comment on above: Performed By: #### C [place], [place] #### [facility] [address] [place] [address] Dr. Zuly Medina MCH (RBC) [Entitic mass] 31.4 pg Normal 26.7-34.0 [facility] Comment on above: Performed By: #### Oliverio SIMS, [place] #### [facility] [address] [address] [address] Zuly Medina MCHC (RBC) [Mass/Vol] 32.2 g/dL Normal 29.9-35.2 [facility] Comment on above: Performed By: #### Oliverio SIMS, [place] #### [facility] [address] [place] [address] Dr. Zuly Medina MCV (RBC) [Entitic vol] 97.6 fL Normal 81.0-99.0 [facility] Comment on above: Performed By: #### C [place], [place] #### [facility] [address] [place] [address] Dr. Zuly Medina MONO # 0.8 103/ul Normal 0.3-0.8 [facility] Comment on above: Performed By: #### C [place], [place] #### [facility] [address] [place] [address] Dr. Zuly Medina Monocytes/100 WBC (Bld) 11.8 % Normal 1.7-12.0 [facility] Comment on above: Performed By: #### CHIDI MCDANIEL #### [facility] [address] [place] [address] Dr. Zuly Medina NEUT # 4.4 103/ul Normal 1.4-6.5 [facility] Comment on above: Performed By: #### CHIDI MCDANIEL #### [facility] [address] [place] [address] Dr. Zuly Medina Neutrophils/100 WBC (Bld) 64.3 % Normal 43.0-75.0 [facility] Comment on above: Performed By: #### CHIDI MCDANIEL #### [facility] [address] [place] [address] Dr. Zuly Medina Platelet mean volume (Bld) [Entitic vol] 10.1 fL Normal 9.5-13.5 [facility] Comment on above: Performed By: #### CHIDI MCDANIEL #### [facility] [address] [place] [address] Dr. Zuly Medina PLT 311 103/ul Normal 150-450 [facility] Comment on above: Performed By: #### CHIDI MCDANIEL #### [facility] [address] [place] [address] Dr. Zuly Medina RBC 3.69 106/ul Critically low 4.20-5.40 [facility] Comment on above: Performed By: #### CHIDI MCDANIEL #### [facility] [address] [place] [address] Dr. Zuly Medina WBC 6.9 103/ul Normal 4.0-11.0 [facility] Comment on above: Performed By: #### CHIDI MCDANIEL #### [facility] [address] [place] [address] Dr. Zuly Medina GLYCOHEMOGLOBIN A1Con 2021 ADA RECOMMENDATION SEE BELOW Normal [facility] Comment on above: Result Comment: ADA RECOMMENDED LIMIT 4.0 - 6.0 ADA THERAPEUTIC TARGET < 7.0 ACTION SUGGESTED > 7.0 Performed By: #### A 1C #### [facility] [address] [place] [address] Dr. Zuly Medina Glucose [Mass/Vol] 103 mg/dL Normal [place] Comment on above: Performed By: #### A 1C #### [facility] [address] [place] [address] Dr. Zuly Medina HbA1c (Bld) [Mass fraction] 5.2 % Normal 4.5-6.2 [facility] Comment on above: Performed By: #### A 1C #### [facility] [address] [place] [address] Dr. Zuly Medina IRONon 11-14-2021 Iron [Mass/Vol] 60.0 ug/dL Normal 50.0-170.0 [facility] Comment on above: Performed By: #### C VDTB #### [facility] [address] [place] [address] Dr. Zuly Medina LIPID PROFILEon 11-14-2021 CHOL-HDL RATIO NORM SEE BELOW Normal [facility] Comment on above: Result Comment: 3.3 - 4.4 LOW RISK 4.4 - 7.1 AVERAGE RISK 7.1 - 11.0 MODERATE RISK >11.0 HIGH RISK Performed By: #### CHIDI MCDANIEL #### [facility] [address] [place] [address] Dr. Zuly Medina Cholesterol [Mass/Vol] 145 mg/dL Normal <=200 [facility] Comment on above: Performed By: #### CHIDI MCDANIEL #### [facility] [address] [place] [address] Dr. Zuly Medina Cholesterol in HDL [Mass/Vol] 65 mg/dL Critically high 40-60 [facility] Comment on above: Performed By: #### CHIDI MCDANIEL #### [facility] [address] [place] [address] Dr. Zuly Medina Cholesterol in LDL [Mass/Vol] 72.2 mg/dL Normal [facility] Comment on above: Performed By: #### CHIDI MCDANIEL #### [facility] [address] [place] [address] Dr. Zuly Medina Cholesterol.total/Ch olesterol in HDL [Mass ratio] 2.2 {ratio} Normal [facility] Comment on above: Performed By: #### CHIDI MCDANIEL #### [facility] [address] [address] [address] Zuly Medina HDL NORMAL > or = 60 mg/dl - LO W CARDIOVASCULAR RISK <40 mg/dl - HIGH CARDIOVASCULAR RISK Normal [facility] Comment on above: Performed By: #### Oliverio SIMS [place] #### [facility] [address] [address] [address] Zuly Medina LDL CALC NORMAL SEE BELOW Normal [facility] Comment on above: Result Comment: <100 mg/dl OPTIMAL 100 - 129 mg/dl NEAR OR ABOVE OPTIMAL 130 - 159 mg/dl BORDERLINE HIGH 160 - 189 mg/dl HIGH >190 mg/dl VERY HIGH Performed By: #### Oliverio SIMS [place] #### [facility] [address] [address] [address] Zuly Medina Triglyceride [Mass/Vol] 39 mg/dL Normal <=150 [facility] Comment on above: Performed By: #### CHIDI MCDANIEL #### [facility] [address] [address] [address] Zuly Medina VLDL CALC 7.8 mg/dL Normal [facility] Comment on above: Performed By: #### Oliverio SIMS [place] #### [facility] [address] [address] [address] Zuly Medina PROF 14(COMP METB)on 022 Albumin [Mass/Vol] 3.8 g/dL Normal 3.4-5.0 [place] Comment on above: Performed By: #### CHIDI MCDANIEL #### [facility] [address] [address] [address] Zuly Medina Albumin/Globulin [Mass ratio] 1.4 {ratio} Normal [facility] Comment on above: Performed By: #### Oliverio SIMS [place] #### [facility] [address] [address] [address] Zuly Medina ALP [Catalytic activity/Vol] 41 U/L Critically low 46-116 [facility] Comment on above: Performed By: #### Oliverio SIMS, [place] #### [facility] [address] [address] [address] Zuly Medina ALT [Catalytic activity/Vol] 20 U/L Normal 14-59 [facility] Comment on above: Performed By: #### Oliverio SIMS, [place] #### [facility] [address] [address] [address] Zuly Medina Anion gap [Moles/Vol] 8.2 mmol/L Normal [facility] Comment on above: Performed By: #### C [place], [place] #### [facility] [address] [address] [address] Zuly Medina AST [Catalytic activity/Vol] 25 U/L Normal 15-37 [facility] Comment on above: Performed By: #### Oliverio SIMS, [place] #### [facility] [address] [address] [address] Zuly Medina Bilirubin [Mass/Vol] 0.4 mg/dL Normal 0.2-1.0 [facility] Comment on above: Performed By: #### Oliverio SIMS, [place] #### [facility] [address] [address] [address] Zuly Medina Calcium [Mass/Vol] 10.1 mg/dL Normal 8.5-10.1 [place] Comment on above: Performed By: #### Oliverio SIMS, [place] #### [facility] [address] [address] [address] Zuly Medina Chloride [Moles/Vol] 104 mmol/L Normal 98-107 [facility] Comment on above: Performed By: #### Oliverio SIMS, [place] #### [facility] [address] [address] [address] Zuly Medina CO2 [Moles/Vol] 31.6 mmol/L Normal 21.0-32.0 [facility] Comment on above: Performed By: #### Oliverio SIMS, [place] #### [facility] [address] [address] [address] Zuly Medina Creatinine [Mass/Vol] 1.44 mg/dL Critically high 0.55-1.02 [facility] Comment on above: Performed By: #### Oliverio SIMS, [place] #### [facility] [address] [place] [address] Dr. Zuly Medina EGFR-AF BERMUDIAN 43 mL/min/1.73m2 Critically low >=60 [facility] Comment on above: Performed By: #### Oliverio SIMS, [place] #### [facility] [address] [address] [address] Zuly Medina EGFR-NON AF BERMUDIAN 36 mL/min/1.73m2 Critically low >=60 [facility] Comment on above: Performed By: #### Oliverio [place] #### [facility] [address] [place] [address] Dr. Zuly Medina Globulin (S) [Mass/Vol] 2.8 g/dL Normal [facility] Comment on above: Performed By: #### Oliverio [place]S [place] #### [facility] [address] [place] [address] Dr. Zuly Medina Glucose [Mass/Vol] 100 mg/dL Normal 74-106 [facility] Comment on above: Performed By: #### [place] #### [facility] [address] [place] [address] Dr. Zuly Medina Potassium [Moles/Vol] 3.8 mmol/L Normal 3.5-5.1 [facility] Comment on above: Performed By: #### Oliverio [place] #### [facility] [address] [place] [address] Dr. Zuly Medina Protein [Mass/Vol] 6.6 g/dL Normal 6.4-8.2 [facility] Comment on above: Performed By: #### Oliverio [place] #### [facility] [address] [place] [address] Dr. Zuly Medina Sodium [Moles/Vol] 140 mmol/L Normal 136-145 [place] Comment on above: Performed By: #### Oliverio [place] #### [facility] [address] [place] [address] Dr. Zuly Medina Urea nitrogen [Mass/Vol] 28.0 mg/dL Critically high 7.0-18.0 The [facility] Comment on above: Performed By: #### C CHIDI SIMS #### [facility] [address] [place] [address] Dr. Zuly Medina Urea nitrogen/Creatinine [Mass ratio] 19.4 mg/mg Normal [facility] Comment on above: Performed By: #### CHIDI MCDANIEL #### [facility] [address] [address] [address] Zuly Medina TSHon 11-14-2021 TSH 1.676 uIU/mL Normal 0.358-3.740 [facility] Comment on above: Performed By: #### CHIDI MCDANIEL #### [facility] [address] [place] [address] Dr. Zuly Medina Covid-19 PCR (CVDTB)on 10-05 SARS-CoV-2 (COVID-19) RNA MARY+probe Ql (Unsp spec) Not detected Normal NOT DETECTED The [facility] Comment on above: Result Comment: When [...] for this test is supported by the [place] of Health and Human Service's declaration that [...] used). Performed By: #### C VDTBH #### [facility] [address] [address] [address] Zuly Medina CREATININEon 06-15-2022 Creatinine [Mass/Vol] 1.33 mg/dL Critically high 0.55-1.02 [facility] Comment on above: Performed By: #### CHIDI MCDANIEL #### [facility] [address] [place], [place] [address] Dr. Zuly Medina EGFR-AF BERMUDIAN 48 mL/min/1.73m2 Critically low >=60 The [facility] Comment on above: Performed By: #### CHIDI MCDANIEL #### [facility] [address] [place], [place] [address] Dr. Zuly Medina EGFR-NON AF BERMUDIAN 39 mL/min/1.73m2 Critically low >=60 The [facility] Comment on above: Performed By: #### CHIDI MCDANIEL #### [facility] [address] [address] [address] Zuly Medina MRI BRAIN WO W [...] WEI GARCIA Date: 2021-09-18 16:23 Normal [facility] Covid-19 PCR (CVDTB)on 08-05 SARS-CoV-2 (COVID-19) RNA MARY+probe Ql (Unsp spec) Not detected Normal NOT DETECTED The [facility] Comment on above: Result Comment: This test is not yet approved or cleared by the [place] FDA. When there are no FDA-approved or cleared tests available, and other criteria are met, FDA can make tests available under an emergency access mechanism called an Emergency Use Authorization (EUA). The EUA for this test is supported by the Medical Office Receptionist of Health and Human Service's (HHS's) declaration [...] SARS-CoV-2. Performed By: #### C VDTB #### [facility] [address] [place] [address] Dr. Zuly Medina SYMPTOMATIC COVID-19 ANTIGEN on 08-23-2021 EUA Statement SEE BELOW Normal [facility] Comment on above: Result Comment: This [...] sooner. Performed By: #### C VDTB #### [facility] [address] [address] [address] Zuly Medina SARS-CoV-2 (COVID-19) RNA MARY+probe Ql (Unsp spec) Negative Normal NEGATIVE The [facility] Comment on above: Performed By: #### C [facility] #### [facility] [address] [place], [place] [address] Dr. Zuly Medina Q - Diptheria/Tetanus Abon 0 08-09-2021 DIPHTHERIA ANTITOXOID 0.25 IU/mL Normal [facility] Comment on above: Order Comment: [facility] performed at: [facility], [address], [place], [place], , Wax Coating Machine Tender: Sahil Dyson M.D.,PhD [facility] Date/Time: [facility] [...] analytical performance characteristics have been determined by [facility], [place], [place]. It has not been cleared or approved by the U.S. Food and Drug Administration. This assay has been validated pursuant to the CLIA regulations and is used for clinical purposes. Performed By: #### 2 4729W, 70006I, 62166, 70248D, 91139L, 01129O #### [facility] Default [address] [place] [address] TETANUS ANTITOXOID 4.67 IU/mL Normal [facility] Comment on above: Order Comment: [facility] performed at: [facility], [address], [place], [place], , Wax Coating Machine Tender: Sahil Dyson M.D.,PhD [facility] Date/Time: [facility] [...] analytical performance characteristics have been determined by [place], [place]. It has not been cleared or approved by the U.S. Food and Drug Administration. This assay has been validated pursuant to the CLIA regulations and is used for clinical purposes. Performed By: #### 2 4729W, 61315H, 79740, 61373Q, 13043Q, 39936S #### [facility] Default [address] [place] [address] Q - IGA,SERUMon 08-09-2021 IMMUNOGLOBULIN A 125 mg/dL Normal 70-320 [facility] Comment on above: Order Comment: [facility] performed at: [facility], [facility], [address] [place] [address], [address] [place] [address], [address] [place] [address], Wax Coating Machine Tender: Thony Haley MD [facility] Date/Time: [facility] Results Received Date/Time: [facility] Reported Date/Time: Performed By: #### 2 4729W, 89850V, 87066, 71162B, 65844E, 45906H #### [facility] Default [address] [place] [address] Q - IGE,SERUMon 08-09-2021 IMMUNOGLOBULIN E 44 kU/L Normal [facility] Comment on above: Order Comment: [facility] performed at: [facility], [facility], [address] , [address] [place] [address], [address], Wax Coating Machine Tender: Thony Haley MD [facility] Date/Time: [facility] Results Received Date/Time: [facility] Reported Date/Time: Performed By: #### 2 4729W, 08871C, 30469, 80380K, 61210M, 35223P #### [facility] Default [address] [place] [address] Q - IGG,SERUMon 08-09-2021 IMMUNOGLOBULIN G 895 mg/dL Normal 600-1540 [facility] Comment on above: Order Comment: [facility] performed at: [facility], [facility], [address], [address] [place] [address], [address] [place] [address], Wax Coating Machine Tender: Thony Haley MD [facility] Date/Time: [facility] Results Received Date/Time: [facility] Reported Date/Time: Performed By: #### 2 4729W, 56709O, 46410, 96030V, 48378H, 48617C #### [facility] Default [address] [place] [address] Q - IGM,SERUMon 08-09-2021 IMMUNOGLOBULIN M 158 mg/dL Normal 50-300 [facility] Comment on above: Order Comment: [facility] performed at: [facility], [facility], [address], [address] [place] [address], [address] [place] [address], Wax Coating Machine Tender: Thony Haley MD [facility] Date/Time: [facility] Results Received Date/Time: [facility] Reported Date/Time: Performed By: #### 2 4729W, 51643Z, 28698, 92265J, 00435O, 37971V #### [facility] Default [address] [place] [address] Q - Strep pneumo Ab 23 serot ypeson 08-09-2021 SEROTYPE 1 (1) 9.5 Normal [facility] Comment on above: Order Comment: [facility] performed at: [facility], [facility],, [address] [place], [address], Wax Coating Machine Tender: Osiris Galdamez MD,PhD,BHANU [facility] Date/Time: [facility] Results Received Date/Time: [facility] Reported Date/Time: Performed By: #### 2 4729W, 56426Z, 44987, 92369B, 57925U, 27496J #### [facility] Default [address] [place] [address] SEROTYPE 12 (12F) 1.0 [facility] Comment on above: Order Comment: [facility] performed at: [facility], [facility],, [address] [place] [address], [place], , Wax Coating Machine Tender: Osiris Galdamez MD,PhD,BHANU [facility] Date/Time: [facility] Results Received Date/Time: [facility] Reported Date/Time: Performed By: #### 2 4729W, 03380N, 22844, 39937F, 37521G, 87924U #### [facility] Default [address] [place] [address] SEROTYPE 14 (14) 3.3 [facility] Comment on above: Order Comment: [facility] performed at: [facility], [facility],, [address] [place], [place] [address], , Wax Coating Machine Tender: Osiris Galdamez MD,PhD,BHANU [facility] Date/Time: [facility] Results Received Date/Time: [facility] Reported Date/Time: Performed By: #### 2 4729W, 47963H, 00228, 21724P, 64902F, 61473X #### [facility] Default [address] [place] [address] SEROTYPE 17 (17F) 1.2 [facility] Comment on above: Order Comment: [facility] performed at: [facility], [facility],, [address] [place] [address], , Wax Coating Machine Tender: Osiris Galdamez MD,PhD,BHANU [facility] Date/Time: [facility] Results Received Date/Time: [facility] Reported Date/Time: Performed By: #### 2 4729W, 43140H, 17889, 44349X, 08031Q, 40326N #### [facility] Default [address] [place] [address] SEROTYPE 19 (19F) 2.8 Normal [facility] Comment on above: Order Comment: [facility] performed at: , [facility],, [address] [place] [address], , Wax Coating Machine Tender: Osiris Galdamez MD,PhD,BHANU [facility] Date/Time: [facility] Results Received Date/Time: [facility] Reported Date/Time: Performed By: #### 2 4729W, 88572X, 80495, 42691B, 27464O, 29827X #### [facility] Default [address] [place] [address] SEROTYPE 2 (2) 7.2 Normal [facility] Comment on above: Order Comment: [facility] performed at: [facility], [facility],, [address] [place] [address], , Wax Coating Machine Tender: Osiris Galdamez MD,PhD,BHANU [facility] Date/Time: [facility] Results Received Date/Time: [facility] Reported Date/Time: Performed By: #### 2 4729W, 22419X, 24555, 18912S, 88299Y, 95777G #### [facility] Default [address] [place] [address] SEROTYPE 20 (20) 3.[address] [facility] Comment on above: Order Comment: [facility] performed at: [facility], [facility],, [address] [place] [address], , Wax Coating Machine Tender: Osiris Galdamez MD,PhD,BHANU [facility] Date/Time: [facility] Results Received Date/Time: [facility] Reported Date/Time: Performed By: #### 2 4729W, 10359S, 41212, 70697I, 76987W, 99778V #### [facility] Default [address] [place] [address] SEROTYPE 22 (22F) 5.9 Normal [facility] Comment on above: Order Comment: [facility] performed at: [facility], [facility],, [address] [place] [address], , Wax Coating Machine Tender: Osiris Galdamez MD,PhD,BHANU [facility] Date/Time: [facility] Results Received Date/Time: [facility] Reported Date/Time: Performed By: #### 2 4729W, 70961W, 94386, 68992C, 96473S, 32529L #### [facility] Default [address] [place] [address] SEROTYPE 23 (23F) 5.2 Normal [facility] Comment on above: Order Comment: [facility] performed at: [facility], [facility],, [address] [place] [address], , Wax Coating Machine Tender: Osiris Galdamez MD,PhD,BHANU [facility] Date/Time: [facility] Results Received Date/Time: [facility] Reported Date/Time: Performed By: #### 2 4729W, 46748Q, 26385, 23861L, 92267T, 51370E #### [facility] Default [address] [place] [address] SEROTYPE 26 (6B) 18.8 Normal [facility] Comment on above: Order Comment: [facility] performed at: [facility], [facility],, [address] [place] [address], , Wax Coating Machine Tender: Osiris Gadlamez MD,PhD,BHANU [facility] Date/Time: [facility] Results Received Date/Time: [facility] Reported Date/Time: Performed By: #### 2 4729W, 38360N, 21740, 12857M, 97117Q, 07608Q #### [facility] Default [address] [place] [address] SEROTYPE 3 (3) 1.3 Normal [facility] [place] Comment on above: Order Comment: [facility] performed at: [facility], [facility],, [address] [place] [address], , Wax Coating Machine Tender: Osiris Galdamez MD,PhD,BHANU [facility] Date/Time: [facility] Results Received Date/Time: [facility] Reported Date/Time: Performed By: #### 2 4729W, 22394F, 61915, 53327N, 70843F, 03955I #### [facility] Default [address] [place] [address] SEROTYPE 34 (10A) 0.9 Normal [facility] Comment on above: Order Comment: [facility] performed at: [facility], [facility],, [address] [place], [place], , Wax Coating Machine Tender: Osiris Galdamez MD,PhD,BHANU [facility] Date/Time: [facility] Results Received Date/Time: [facility] Reported Date/Time: Performed By: #### 2 4729W, 44349J, 84525, 82895K, 80861P, 01695P #### [facility] Default [address] [place] [address] SEROTYPE 4 (4) <0.3 Normal [facility] Mechanical Apprentice Comment on above: Order Comment: [facility] performed at: [facility], [facility],, [address] [place] [address], , Wax Coating Machine Tender: Osiris Galdamez MD,PhD,BHANU [facility] Date/Time: [facility] Results Received Date/Time: [facility] Reported Date/Time: Performed By: #### 2 4729W, 16663R, 81070, 59558W, 69094B, 24347T #### [facility] Default [address] [place] [address] SEROTYPE 43 (11A) 1.1 Normal [facility] Comment on above: Order Comment: [facility] performed at: [facility], [facility],, [address] [place] [address], , Wax Coating Machine Tender: Osiris Galdamez MD,PhD,BHANU [facility] Date/Time: [facility] Results Received Date/Time: [facility] Reported Date/Time: Performed By: #### 2 4729W, 08052E, 41612, 54682D, 47970A, 52603O #### [facility] Default [address] [place] [address] SEROTYPE 5 (5) 2.3 Normal [facility] Mechanical Apprentice Comment on above: Order Comment: [facility] performed at: [facility], [facility],, [address] [place] [address], , Wax Coating Machine Tender: Osiris Galdamez MD,PhD,BHANU [facility] Date/Time: [facility] Results Received Date/Time: [facility] Reported Date/Time: [id number] Performed By: #### 2 4729W, 59404K, 08777, 46503O, 45716Q, 75851E #### [facility] Default [address] [place] [address] SEROTYPE 51 (7F) 8.4 Normal [facility] Comment on above: Order Comment: [facility] performed at: [facility], [facility],, [address] [place], [place], , Wax Coating Machine Tender: Osiris Galdamez MD,PhD,BHANU [facility] Date/Time: [facility] Results Received Date/Time: [facility] Reported Date/Time: Performed By: #### 2 4729W, 20587I, 44320, 20996Q, 12067K, 83362N #### [facility] Default [address] [place] [address] SEROTYPE 54 (15B) 2.3 Normal [facility] Comment on above: Order Comment: [facility] performed at: [facility], [facility],, [facility] [place], [place], , Wax Coating Machine Tender: Osiris Galdamez MD,PhD,BHANU [facility] Date/Time: [facility] Results Received Date/Time: [facility] Reported Date/Time: Performed By: #### 2 4729W, 46263J, 65837, 28034K, 18233T, 19281Y #### [facility] Default [address] [place] [address] SEROTYPE 56 (18C) 18.7 [facility] Comment on above: Order Comment: [facility] performed at: [facility], [facility],, [address] [place], [place], , Wax Coating Machine Tender: Osiris Galdamez MD,PhD,BHANU [facility] Date/Time: [facility] Results Received Date/Time: [facility] Reported Date/Time: Performed By: #### 2 4729W, 45677M, 84444, 57838X, 19233R, 98203D #### [facility] Default [address] [place] [address] SEROTYPE 57 (19A) 15.6 Normal [facility] Comment on above: Order Comment: [facility] performed at: [facility], [facility],, [address] [place], [place], , Wax Coating Machine Tender: Osiris Galdamez MD,PhD,BHANU [facility] Date/Time: [facility] Results Received Date/Time: [facility] Reported Date/Time: Performed By: #### 2 4729W, 89396M, 76101, 41109S, 34228X, 84267Q #### [facility] Default [address] [place] [address] SEROTYPE 68 (9V) 2.1 Normal [facility] Comment on above: Order Comment: [facility] performed at: [facility], [facility],, [facility] [place], , Wax Coating Machine Tender: Osiris Galdamez MD,PhD,BHANU [facility] Date/Time: [facility] Results Received Date/Time: [facility] Reported Date/Time: Performed By: #### 2 4729W, 25633K, 34016, 52752U, 01125X, 90348D #### [facility] Default [address] [place] [address] SEROTYPE 70 (33F) 28.9 Normal [facility] Comment on above: Order Comment: [facility] performed at: [facility], [facility],, [address] [place], [place], , Wax Coating Machine Tender: Osiris Galdamez MD,PhD,BHANU [facility] Date/Time: [facility] [...] serotype-specific titers may have less robust responses. [facility] uses a multi-analyte immunodetection (MAID) method. The method employs the [employer] flow cytometric system which measures multiple analytes [...] analytical performance characteristics have been determined by [facility]. It has not been cleared or approved by FDA. This assay has been validated pursuant to the CLIA regulations and used for clinical purposes. For additional information, please refer to http://education.[employer].Fluency/faq/DVS999 (This link is being provided for informational/ educational purposes only.) Performed By: #### 2 4729W, 15020M, 87813, 14607K, 93578Y, 97460J #### [facility] Default [address] [place] [address] SEROTYPE 8 (8) 14.6 Normal [facility] Mechanical Apprentice Comment on above: Order Comment: [facility] performed at: [facility], [facility],, [address] [place], [place], , Wax Coating Machine Tender: Osiris Galdamez MD,PhD,BHANU [facility] Date/Time: [facility] Results Received Date/Time: [facility] Reported Date/Time: Performed By: #### 2 4729W, 99615D, 50422, 14723L, 50939Z, 11452X #### [facility] Default [address] [place] [address] SEROTYPE 9 (9N) 1.0 Normal [facility] Mechanical Apprentice Comment on above: Order Comment: [facility] performed at: [facility], [facility],, [address] [place] [address], , Wax Coating Machine Tender: Osiris Galdamez MD,PhD,BHANU [facility] Date/Time: [facility] Results Received Date/Time: [facility] Reported Date/Time: Performed By: #### 2 4729W, 75549G, 14084, 82205A, 34206H, 48063Z #### [facility] Default [address] [place] [address] CT SINUSES WO CONon 08-06-19 CT SINUSES [...] WEI GARCIA Date: 2021-08-05 08:48 Normal [facility] MG MAMM DX 3D LT CADon 08-05 MG MAMM DX 3D LT CAD Patient: ADRIANNA BUITRAGO Exam Date: 08/05/2021 : 1950 Gender:F Ordering : DR JENNY BURRIS . Admission #: [id number] Family : Order #: [id number] CLICK HERE TO VIEW EXAM RADIOLOGY REPORT [...] lung cancer at age 59. LOCATION: [facility] BREAST COMPOSITION: Scattered areas fibroglandular density. [...] M.D. on 08/05/2021 at 09:25 Normal [facility] US BREAST LEFT LIMITEDon US BREAST LEFT LIMITED Patient: ADRIANNA BUITRAGO Exam Date: 08/05/2021 : 1950 Gender:F Ordering : DR JENNY BURRIS . Admission #: [id number] Family : Order #: [id number] CLICK HERE TO VIEW EXAM RADIOLOGY REPORT [...] lung cancer at age 59. LOCATION: [facility] BREAST COMPOSITION: Scattered areas fibroglandular density. [...] Garcia M.D. on 08/05/2021 at 09:25 Normal [facility] Encounters Encounter Date Encounter Type Care Provider Facility Start: 12-17-2023 End: 12-17-2023 ambulatory RENNY ORLANDO Not Available Start: 12-15-2023 End: 12-15-2023 ambulatory SANDEEP PLEITEZ Not Available Start: 12-03-2023 End: 12-03-2023 ambulatory RENNY ORLANDO Not Available Start: 10-12-2023 End: 10-12-2023 ambulatory KEILA Dukes RAMBASEK Not Available Start: 09-10-2023 End: 09-10-2023 ambulatory RENNY ORLANDO Not Available Start: 08-05-2023 End: 08-06-2023 ambulatory Issa Oliva KAIVN Facility:[id number] Start: 07-15-2023 End: 07-15-2023 ambulatory KEILA [...] Start: 04-10-2023 End: 04-10-2023 ambulatory MELO JENKINS [facility] Start: 11-25-2022 End: 11-25-2022 ambulatory TEGAN PAIZ [facility] Start: 07-02-2022 End: 07-02-[address] [...] . Facility:[facility] Start: 05-14-2022 End: 05-14-2022 ambulatory [facility] Start: 01-22-2022 End: 01-23-[address] JENNY [...] [facility] [address] [facility] [address] [place] [address] Keila Faith MD [address] [facility] [address] [place] [address] [facility] Start: 05-14-2023 End: 05-14-2023 Patient encounter procedure 05/14/2023 8:40 AM EST Office Visit [facility] [address] [facility] [address] [place] [address] Renny Orlando, DPSobia [address] [facility] [address] [place] [address] [facility] Start: 12-05-2022 Influenza vaccination Influenza Vacc ine (#1) [facility] Start: 10-27-2018 Pneumococcal Vaccine : 65+ Years (2 - PPSV23 or PCV20) Pneumococcal Vaccine: 65+ Years (2 - PPSV23 or PCV20) [facility] Start: 1989 Screening for malign ant neoplasm of breast Mammogram [facility] Start: 1950 Screening for malign ant neoplasm of colon [facility] Payers Date Payer Category Payer Unknown [employer] [id number] 2021-Present [address] [place] [address] [id number] 2014 Medicare MEDICARE MEDICAR E PART B [id number] 2014-Present [address] [address] [place] [address] Medicare [id number] 1959 Medicare [id number] 1959 Unknown [id number] 1950 Unknown [id number] 1949 Unknown [id number] 1949 Unknown [id number] 1949 Unknown [id number] 1949 Unknown [id number] 1949 Unknown [id number] 2.16.840.1.176036.3.579.2.593 1949 Unknown [id number] 2.16.840.1.089210.3.579.2.593 1949 Unknown [id number] 2.16.840.1.627761.3.579.2.593 1949 Unknown [id number] 2.16.840.1.246450.3.579.2.593 1949 Unknown [id number] 2.16.840.1.015725.3.579.2.593 1949 Unknown [id number] 2.16.840.1.132849.3.579.2.593 1949 Unknown [id number] 2.16.840.1.688439.3.579.2.593 1949 Unknown [id number] 2.16.840.1.235352.3.579.2.593 1949 Unknown [id number] 2.16.840.1.733854.3.579.2.593 1949 Unknown [id number] 2.16.840.1.913687.3.579.2.593 1949 Unknown [id number] 2.16.840.1.409628.3.579.2.593 1949 Unknown [id number] 2.16.840.1.810691.3.579.2.727 1949 Unknown [id number] 2.16.840.1.244792.3.579.2.727 1949 Unknown [id number] 2.16.840.1.004793.3.579.2.1259 1949 Unknown [id number] 2.16.840.1.526678.3.579.2.1259 1949 Unknown [id number] 2.16.840.1.179536.3.579.2.1258 1949 Unknown [id number] 2.16.840.1.136554.3.579.2.9 1949 Unknown [id number] 2.16.840.1.504226.3.579.2.1258 1949 Unknown [id number] 2.16.840.1.862258.3.579.2.9 1949 Unknown [id number] 2.16.840.1.888949.3.579.2.1258 1949 Unknown [id number] 2.16.840.1.377398.3.579.2.9 1949 Unknown [id number] 2.16.840.1.999760.3.579.2.1258 1949 Unknown [id number] 2.16.840.1.724702.3.579.2.9 1949 Unknown [id number] 2.16.840.1.584696.3.579.2.1259 Social History Date Type Detail Facility Start: 04-30-2023 Tobacco smoking stat [facility] Ex-smoker [facility] End: 04-06-2006 History [...] 1 tab(s), Oral, Daily Flonase 0.05 mg/inh [place], 2 spray(s), Nasal, Daily lactulose 10 g/15 [...] mEq= 1 tab(s (more content not included)... [facility] Comment on above: Result Comment: [...] nostril in the morning and at bedtime. qldndxiyxb-otfoyssl-zokblrquce (Breztri Aerosphere) 160-9-4.8 mcg/actuation HFA aerosol inhaler [...] as needed Melo Jenkins MD Interventional Cardiology [facility] (more content not included)... [facility] 04-10-2023 Note Patient here for 6 [...] All other systems reviewed and are negative. [facility] 11-25-2022 Note Remains stable, ches t pain resolved and no acute concerns currently [facility] 11-25-2022 Note Current echo 05/2022- Mild MR and no concerning symptoms currently [facility] 11-25-2022 Note Current echo 05/2022- Mild MR and no concerning symptoms currently [facility] 11-25-2022 Note Continue pravastatin 10 mg daily and fenofibrate- pt states PCP orders her annual labs F/U with PCP [facility] 11-25-2022 Note UTP CARDIOLOGY PROGR ESS [...] Prior to Visit Medication Sig Dispense Refill yzbuvahagu-zvwzpefc-tnvzbsovcy (Breztri Aerosphere) 160-9-4.8 mcg/actuation HFA aerosol inhaler [...] no acute concerns currently RTC 4-6 months [facility] 05-26-2022 Note CARDIAC STRESS TEST Requesting Physician: Procedure Date:05/26/2022 This is a treadmill stress test with myocardial perfusion imaging, performed at the [facility] on 05/26/2022. Informed consent was obtained. [...] +7.5 is associated with low risk for intermodal dispatcher cardiac events. 4. Myocardial perfusion images will be reported separately. [facility] 05-14-2022 Note Cardiology Follow Up Progress [...] Prior to Visit Medication Sig Dispense Refill mcpjkpcala-zdhqwquk-ubxfjvsxnf (Breztri Aerosphere) 160-9-4.8 mcg/actuation HFA aerosol inhaler [...] red flag symptoms. (more content not included)... [facility] 05-14-2022 Note Patient here for 6 m o follow up valve regurgitation and hyperlipidemia. C/o intermittent chest pressure. She says sometimes she takes aspirin to relieve the pain if it lasts more then a few minutes. Occurs at rest, as well as exercise, but she states it's no worse with exercise. [facility] Summary Purpose Family History No Family History Records FoundNo Family History Records FoundNo Family History Records FoundNo Family History Records FoundNo Family History Records Found Advance Directives No Advanced Directives Records FoundNo Advanced Directives Records FoundNo Advanced Directives Records FoundNo Advanced Directives Records FoundNo Advanced Directives Records Found Additional Source Comments INFORMATION SOURCE (unrecogn ized section and content) DATE CREATED AUTHOR 08/17/2021 [facility] DATE CREATED AUTHOR AUTHOR'S ORGANIZ ATION 07/05/[address] [facility] DATE CREATED AUTHOR AUTHOR'S ORGANIZ ATION 05/11/2023 [facility] DATE CREATED AUTHOR AUTHOR'S ORGANIZ ATION 08/10/2023 Layne Evans [facility] DATE CREATED AUTHOR AUTHOR'S ORGANIZ ATION 12/19/2023 [facility] [employer] Care Teams (unrecognized sec tion and content) Recoverer Relationship Specialty Start Date End Date Jenny Burris MD [address] [place] [address] PCP - General Family Medicine 04/30/23 FOR [...] BE BASED ON THE PRIMARY CLINICAL RECORDS. [facility] [employer] [facility]. provides no warranty or guarantee of the accuracy or completeness of information in this document.
[2024-01-14 10:01] LABS: Anion Gap 13.5; BUN Creatinine Ratio 30.8; Carbon Dioxide 25.9 mmol/L (21.0-32.0); Chloride 103 mmol/L (98-107); Estimated GFR (African America 43 (>=60 mL/min/1.73m^2); Estimated GFR (Non-African Ame 36 (>=60 mL/min/1.73m^2); Glucose 90 mg/dL (74-106); Potassium 4.4 mmol/L (3.5-5.1); Sodium 138 mmol/L (136-145)
== END 2024-01-14 09:13 | disposition home or self-care (01) ==
LOC: LAB 09:14
PROVIDERS: PCP Family Medicine; Visit Provider Family Medicine
DX: R79.89 Other specified abnormal findings of blood chemistry (principal)
CPT/HCPCS: 36415; 80048

== ENCOUNTER 2024-01-29 06:37 | Outpatient (OUT) | payer MEDICARE, OTHER, SELFPAY ==
--- NOTE | 2024-01-29 06:39 | MM_ITS ---
Patient Name: AKIRA PERALTA MR#: [id number] : 1950 Exam Date: 01/29/2024 Ordering Doctor: DR Miko Burris . RADIOLOGY REPORT PROCEDURE: MM TOMOSYNTHESIS SCREENING BI COMPARISON: MM TOMOSYNTHESIS SCREENING BI, 01/23/2023. MG MAMM SCREEN 3D NOEL CAD, 01/22/2022. MG MAMM NOEL SCRN W CAD DIG, 11/09/2012. INDICATIONS: Screening Calculator Name NCI Breast Cancer Risk Assessment Tool 5 Year Breast Cancer Risk 1.40% Lifetime Breast Cancer Risk 3.20% Personal Breast Cancer No Personal Ovarian Cancer No Treatments None Family Cancers Sister with ovarian cancer at age 53; Brother with pancreatic cancer at age 43; Uncle-maternal with bone cancer at age ~60; Aunt-maternal with all over cancer at age ~60; Uncle-maternal with lung cancer at age ~60. LOCATION: [facility] BREAST COMPOSITION: There are scattered areas of fibroglandular density. FINDINGS: DIAGNOSTIC CATEGORY 2--BENIGN FINDING: RIGHT BREAST: No significant suspicious finding. No significant change has occurred. LEFT BREAST: No significant suspicious finding. Stable upper outer quadrant asymmetric fibroglandular tissue. No significant change has occurred. RECOMMENDATIONS: ROUTINE MAMMOGRAM AND CLINICAL EVALUATION IN 12 MONTHS. PLEASE NOTE: A NORMAL MAMMOGRAM DOES NOT EXCLUDE THE POSSIBILITY OF BREAST CANCER. A CLINICALLY SUSPICIOUS PALPABLE LUMP SHOULD BE BIOPSIED. Dictated by: Wei Garcia M.D. on 01/31/2024 at 19:45 Approved by: Wei Garcia M.D. on 01/31/2024 at 19:47
--- OUTSIDE RECORDS SUMMARY | 2024-01-29 06:39 | XMS_ITS | CCD ---
Author Organization [facility] Care Team Providers Care Sign Maintenance Name Role Phone HOY ., DR ALVARADO [...] MOHAMAD Attending Unavailable TEGAN PAIZ Attending Unavailable Riveray Jenny FRANKLIN Primary Care Provider [phone] Issa VALE Attending Unavailable Issa VALE Attending Unavailable BROWNRENNY A Attending Unavailable BROWN, RENNY A Attending Unavailable BROWN, RENNY A Attending Unavailable BROWN, RENNY A Attending Unavailable BROWN, RENNY A Attending Unavailable RAMBASEK, KEILA E Attending Unavailable BROWN, RENNY A Attending Unavailable RAMBASEK, KEILA E Attending Unavailable BROWN, RENNY A Attending Unavailable SANDEEP PLEITEZ Attending Unavailable BROWN, RENNY A Attending Unavailable BROWN, RENNY A Attending Unavailable BROWN, RENNY A Attending Unavailable Allergies Allergy Classification Reported Allergen(s) Allergy Type Date of Onset Reaction(s) Facility (2 sources) Amoxicillin; Translations: [AMOXICILLIN] Drug Allergy 3 [facility] (3 sources) Morphine; Translations: [MORPHINE] Drug Allergy 3 [facility] (7 sources) Amoxicillin Drug Allergy 3 Itching, Other, Unknown [facility] (7 sources) Mold Extract Drug Allergy 4 Unknown [facility] (7 sources) Morphine Drug Allergy 3 Itching, Other [facility] (1 source) Penicillin; Translations: [penicillin] Drug Allergy [facility] (1 source) No Known Medication Allergies; Translations: [No Known Medication Allergies] Propensity to adverse reactions (disorder) [facility] Medications Current Medications Medication Drug Class(es) Dates Sig (Normalized) Sig (Original) aspirin 81 mg delayed release oral tablet (7 sources) Platelet Aggregation Inhibitor, Nonsteroidal Anti-inflammatory Drug aspirin 81 MG EC tablet 1 (one) time each day at the same time. Active azelastine hydrochloride 0.137 mg/actuat metered dose nasal spray (7 sources) Histamine-1 Receptor Antagonist Start: 01-05-2023 azelastine (Astelin) 0.1 % nasal spray Indications: Vasomotor rhinitis Azelastine HCl Two sprays per nostril on a b.I.d. basis. 30 mL 11 01/05/2023 Active budesonide 0.5 mg/ml inhalation suspension (7 sources) Corticosteroid Start: 01-05-2023 End: 07-20-2024 take 2 mL by mouth in the morning budesonide (Pulmicort) 1 MG/2ML nebulizer solution Indications: Mild intermittent asthma without complication (CMS/HCC) Take 2 mL (1 mg) by nebulization in the morning and 2 mL (1 mg) before bedtime. Rinse mouth with water after use to reduce aftertaste and incidence of candidiasis. Do not swallow.. 124 mL 11 07/21/2023 07/20/2024 Active 120 actuat budesonide 0.16 mg/actuat / formoterol fumarate 0.0048 mg/actuat / glycopyrrolate 0.009 mg/actuat metered dose inhaler (6 sources) Corticosteroid, beta2-Adrenergic Agonist take 1 puff(s) by inhalation once daily Budeson-Glycopyrr ol-Formoterol (Breztri Aerosphere) 160-9-4.8 MCG/ACT aerosol Inhale 1 puff Daily Active 168 hr cloNIDine 0.96478 mg/hr transdermal system (13 sources) Central alpha-2 Adrenergic Agonist take 1 tablet by mouth in the morning cloNIDine (Catapres) 0.1 MG tablet Take 0.1 mg by mouth in the morning and 0.1 mg before bedtime. Active cloNIDine (Catap res-TTS) 0.1 MG/24HR cloNIDine Active 1 ml denosumab 60 mg/ml prefilled syringe (7 sources) RANK Ligand Inhibitor denosumab (Prolia) 60 MG/ML solution prefilled syringe Inject 60 mg under the skin every 6 (six) months Active fenofibrate 160 mg oral tablet (7 sources) Peroxisome Proliferator Receptor alpha Agonist take 1 tablet by mouth in the morning fenofibrate (Triglide) 160 MG tablet Take 1 tablet by mouth in the morning. Active fluticasone propionate 0.05 mg/actuat metered dose nasal spray (7 sources) Corticosteroid fluticasone (Flonase) 50 MCG/ACT nasal spray 1 (one) time each day at the same time. Active furosemide 20 mg oral tablet (7 sources) Loop Diuretic take 1 tablet by mouth once daily furosemide (Lasix) 20 MG tablet Take 1 tablet every day by oral route for 90 days. Active ipratropium bromide 0.2 mg/ml inhalation solution (6 sources) Anticholinergic Start: 024 End: 025 ipratropium (Atrovent) 0.02 % nebulizer solution Indications: Asthma, allergic, mild intermittent, uncomplicated (CMS/HCC) Take 2.5 mL (0.5 mg) by nebulization 4 (four) times a day as needed for wheezing or shortness of breath 75 mL 11 10/12/2023 10/11/2024 Active lactulose 667 mg/ml oral solution (7 sources) Osmotic Laxative take 30 mL by mouth twice daily as needed lactulose (Chronulac) 10 GM/15ML solution 30ml Oral twice daily as needed for 90 days Active levothyroxine sodium 0.1 mg oral tablet (6 sources) l-Thyroxine take 1 tablet by mouth before mealtime levothyroxine (Synthroid, Levoxyl) 100 MCG tablet Take 100 mcg by mouth in the morning. Take before meals. Active liothyronine sodium 0.005 mg oral tablet (6 sources) l-Triiodothyronine take 1 tablet by mouth once daily liothyronine (Cytomel) 5 MCG tablet Take by mouth Daily Active omeprazole 40 mg delayed release oral capsule (7 sources) Proton Pump Inhibitor take 1 capsule by mouth once daily omeprazole (PriLOSEC) [address] capsule Take 1 capsule every day by oral route for 90 days. Active potassium chloride 10 meq extended release oral tablet (7 sources) take 1 tablet by mouth three times daily potassium chloride CR (Klor-Con) 10 MEQ ER tablet Take 1 tablet 3 times a day by oral route for 90 days. Active pravastatin sodium 10 mg oral tablet (7 sources) HMG-CoA Reductase Inhibitor take 1 tablet by mouth at bedtime pravastatin (Pravachol) 10 MG tablet Take 10 mg by mouth at bedtime. Active ubrogepant 100 mg oral tablet (7 sources) take 1 tablet by mouth every twenty-four hours as needed Ubrogepant 100 MG tablet Take 1 tablet by mouth Daily as needed (migraine) Active Ubrogepant (Ubre lvy) 50 MG tablet Ubrelvy 0 Active Problems [...] HYPERTENSION] Onset: 11-14-2021 Chronic Headache; including migraine (20 sources) Migraine without aura, not intractable, without status migrainosus; Translations: [Migraine with aura] Onset: 09-18-2021 Resolved: 12-15-2023 Chronic Heart valve disorders (8 sources) Nonrheumatic [...] W/O CURR PATH FX] Onset: 07-02-2022 Chronic Other connective tissue disease (4 sources) Pain in right foot; Translations: [Pain in right foot] 01-10-2024 Episodic Other connective tissue disease (4 sources) Pain in left foot; Translations: [Pain in left foot] 01-10-2024 Episodic Peripheral and visceral atherosclerosis (1 source) Peripheral [...] Valve Disorder; Translations: [Valve Disorder] Onset: 05-14-2022 Viral infection (4 sources) Verruca plantaris; Translations: [Plantar wart] 01-10-2024 Episodic Past or Other Problems Problem Classification Problem [...] Range Facility Outside Colonoscopyon 2023 Outside Colonoscopy [id number] 50 [id number]#[id number] 0TIFF Normal [facility] Reminderson 08-07-2023 Reminders - From: Kandi Cesar LPN To: N - Clinical; Sent: 08/07/2023 07:59:01 EDT Show up: 07/06/2033 07:59:00 EDT Subject: colonoscopy recall Due Date/Time: 08/04/2033 07:00:00 EDT Reminder/Recall If patient is in good health, she is due for screening colonoscopy 08/04/2033. Normal [facility] Consent for Procedure/Surger yon 06-10-2023 Consent for Procedure/Surgery [id number] 0TIFF Normal [facility] Ambulatory Visit Summaryon 0 06-09-2023 Ambulatory [...] oral tablet) fluticasone nasal (Flonase 0.05 mg/inh [place]) furosemide (Lasix 20 mg Tab) lactulose (lactulose [...] Unchanged fluticasone nasal (Flonase 0.05 mg/ inh [place]) 2 Sprays Nasal Inhalation Every day Contact [...] for choosing us for your care. Normal [facility] Physician Referralon 024 Physician Referral [id number] 20 [id number] 0TIFF Normal [facility] Office Visiton 04-10-2023 Follow-up visit [id number] Shirley Buitrago ly D 1950 F Date Provider Department Center 04/10/2023 3848-JUANITA JENKINS CARD [facility] No family history on file Level of Service:92321 NE OFFICE/OUTPATIENT ESTABLISHED LOW MDM 20 MIN Normal [facility] Office Visiton 11-25-2022 Follow-up visit [id number] Shirley Buitrago ly D 1950 F Date Provider Department Center 11/25/2022 120-TEGAN PAIZ [facility] No family history on file Level of Service:01458 NE OFFICE/OUTPATIENT ESTABLISHED MOD MDM 30-39 MIN Normal [facility] CALCIUMon 07-02-2022 Calcium [Mass/Vol] 9.8 mg/dL Normal 8.5-10.1 [facility] Comment on above: Performed By: #### C A, CREA #### [facility] [address] [address] [address] Zuly Medina CREATININEon 07-02-2022 Creatinine [Mass/Vol] 1.41 mg/dL Critically high 0.55-1.02 [facility] Comment on above: Performed By: #### C A, CREA #### [facility] [address] [address] [address] Zuly Medina EGFR-AF BOLIVIAN 44 mL/min/1.73m2 Critically low >=60 [facility] Comment on above: Performed By: #### C A, CREA #### [facility] [address] [address] [address] Zuly Medina EGFR-NON AF BOLIVIAN 37 mL/min/1.73m2 Critically low >=60 [facility] Comment on above: Performed By: #### C A, CREA #### [facility] [address] [address] [address] Zuly Medina MRI LSPINE WO CONon [...] : DR JENNY BURRIS . Admission #: [id number] Family : Order #: [id number] CLICK HERE TO VIEW EXAM RADIOLOGY REPORT [...] thrombus. Compressibility: Normal. Flow: Deep venous reflux. Hris Administrator: Tech Note: Proximal medial lower leg varicose [...] MD on 05/30/2022 at 11:20 Normal [facility] NM STRESS/REST MULTIon 05-26 ID STRESS/REST MULTI Patient: ADRIANNA BUITRAGO Exam Date: 05/26/2022 : 1950 Gender:F Ordering : JUANITA JENKINS Admission #: [id number] Family : DR JENNY BURRIS . Order #: [id number] CLICK HERE TO VIEW EXAM RADIOLOGY REPORT PROCEDURE: RADIONUCLIDE IMAGING STRESS/REST MULTI COMPARISON: ID STRESS/REST MULTI, 06/17/2017. INDICATIONS: Chest pain TECHNIQUE: [...] WEI GARCIA Date: 2022-05-23 14:32 Normal [facility] Covid-19 PCR (CVDTB)on 05-07 SARS-CoV-2 (COVID-19) RNA MARY+probe Ql (Unsp spec) Not detected Normal NOT DETECTED [facility] Comment on above: Result Comment: This test is not yet approved or cleared by the [place] FDA. When there are no FDA-approved or cleared tests available, and other criteria are met, FDA can make tests available under an emergency access mechanism called an Emergency Use Authorization (EUA). The EUA for this test is supported by the [place] of Health and Human Service's (HHS's) declaration [...] SARS-CoV-2. Performed By: #### C VDTBH #### [facility] [address] [place] [address] Dr. Zuly Medina INFLUENZA A AND B AGon 05-22 INFLUANEGH SEE BELOW Normal [facility] Comment on above: Result Comment: Nega tive for Flu A protein angiten. Infection due to Flu A cannot be ruled out. Flu A angiten in the sample may be below the detection limit of the test. Performed By: #### I NFLUAB #### [facility] [address] [place] [address] Dr. Zuly Medina [facility] SEE BELOW Normal [facility] Comment on above: Result Comment: Nega tive for Flu B protein antigen. Infection due to Flu B cannot be ruled out. Flu B antigen in the sample may be below the detection limit of the test. Performed By: #### I NFLUAB #### [facility] [address] [place] [address] Dr. Zuly Medina INFLUENZA A AG Negative Normal NEGATIVE SEE COMMENT [facility] Comment on above: Performed By: #### I NFLUAB #### [facility] [address] [address] [address] Zuly Medina INFLUENZA B AG Negative Normal NEGATIVE SEE COMMENT [facility] Comment on above: Performed By: #### I NFLUAB #### [facility] [address] [place] [address] Dr. Zuly Medina ECHOCARDIO M/2D COMPLETEon 0 05-14-2022 ECHOCARDIO M/2D COMPLETE Patient: ADRIANNA BUITRAGO Exam Date: 05/14/2022 : 1950 Gender:F Ordering : JUANITA JENKINS Admission #: [id number] Family : DR JENNY BURRIS . Order #: [id number] CLICK HERE TO VIEW EXAM ECHOCARDIOGRAM REPORT [...] Garcia M.D. on 05/15/2022 at 18:51 Normal [facility] Office Visiton 05-14-2022 Follow-up visit [id number] Shirley Buitrago 1950 F Date Provider Department Center 05/14/2022 3848-JUANITA JENKINS [facility] No family history on file Level of Service:59706 NE OFFICE/OUTPATIENT ESTABLISHED MOD [facility] 30-39 MIN Reason for Visit and Comments: Hyperlipidemia [182] Valve Disorder [3372] Normal [facility] MG MAMM SCREEN 3D NOEL CADon 01-22-2022 MG MAMM SCREEN 3D NOEL CAD Patient: ADRIANNA BUITRAGO Exam Date: 01/22/2022 : 1950 Gender:F Ordering : DR JENNY BURRIS . Admission #: [id number] Family : Order #: [id number] CLICK HERE TO VIEW EXAM RADIOLOGY REPORT [...] lung cancer at age 59. LOCATION: [facility] BREAST COMPOSITION: Scattered areas fibroglandular density. [...] M.D. on 01/22/2022 at 14:36 Normal [facility] CALCIUMon 12-31-2021 Calcium [Mass/Vol] 10.0 mg/dL Normal 8.5-10.1 [facility] Comment on above: Performed By: #### C [place], [place] #### [facility] [address] [address] [address] Zuly Medina CREATININEon 12-31-2021 Creatinine [Mass/Vol] 1.33 mg/dL Critically high 0.55-1.02 [facility] Comment on above: Performed By: #### C [place], [place] #### [facility] [address] [address] [address] Zuly Medina EGFR-AF BOLIVIAN 48 mL/min/1.73m2 Critically low >=60 [facility] Comment on above: Performed By: #### C [place], [place] #### [facility] [address] [address] [address] Zuly Medina EGFR-NON AF BOLIVIAN 39 mL/min/1.73m2 Critically low >=60 [facility] Comment on above: Performed By: #### C [place], [place] #### [facility] [address] [address] [address] Zuly Medina Covid-19 PCR (CVDTBH)on 12-06 SARS-CoV-2 (COVID-19) RNA MARY+probe Ql (Unsp spec) Not detected Normal NOT DETECTED [facility] Comment on above: Result Comment: This test is not yet approved or cleared by the [place] FDA. When there are no FDA-approved or cleared tests available, and other criteria are met, FDA can make tests available under an emergency access mechanism called an Emergency Use Authorization (EUA). The EUA for this test is supported by the [place] of Health and Human Service's (HHS's) declaration [...] SARS-CoV-2. Performed By: #### C VDTBH #### [facility] [address] [address] [address] Zuly Medina T4, T3U, FTI LABCORPon 11-15 Free Thyroxine Index 2.7 Normal 1.2-4.9 [facility] Comment on above: Performed By: #### C VDTBH #### [facility] [address] [place] [address] Dr. Zuly Medina T3 Uptake 32 % Normal 24-39 [facility] Comment on above: Performed By: #### C VDTBH #### [facility] [address] [address] [address] Zuly Medina T4 [Mass/Vol] 8.5 ug/dL Normal 4.5-12.0 [facility] Comment on above: Performed By: #### C VDTBH #### [facility] [address] [place] [address] Dr. Zuly Medina VIT D 25-OH LABCORPon 2021 Vitamin D, 25-Hydroxy 114.0 ng/mL Critically high 30.0-100.0 [facility] Comment on above: Result Comment: Jenny min D deficiency has been defined by the [place] of Medicine and an Endocrine Society practice guideline as a level of serum 25-OH vitamin D less than 20 ng/mL (1,2). The Endocrine Society went on to further define vitamin D insufficiency as a level between 21 and 29 ng/mL (2). 1. IOM ([place] of Medicine). 2010. Dietary reference intakes for calcium and D. Steve [place]: The National Academies Press. 2. Anel MF, Chandrika NC, Ronaldo MCCALLUM, et al. Evaluation, treatment, and prevention of vitamin D deficiency: an Endocrine Society clinical practice guideline. JCEM. 2010; 96(7):1911-30. Performed By: #### V ITADLC #### [facility] [address] [place] [address] Dr. Zuly Medina CBC AUTO DIFFon 11-14-2021 BASO # 0.0 103/ul Normal 0.0-0.1 [facility] Comment on above: Performed By: #### C CHIDI SIMS #### [facility] [address] [place] [address] Dr. Zuly Medina Basophils/100 WBC (Bld) 0.4 % Normal 0.2-2.0 [facility] Comment on above: Performed By: #### Oliverio SIMS, [place] #### [facility] [address] [place] [address] Dr. Zuly Medina EO # 0.3 103/ul Normal 0.0-0.7 [facility] Comment on above: Performed By: #### Oliverio SIMS, [place] #### [facility] [address] [place] [address] Dr. Zuly Medina Eosinophils/100 WBC (Bld) 4.1 % Normal 0.9-7.0 [facility] Comment on above: Performed By: #### Oliverio SIMS [place] #### [facility] [address] [place] [address] Dr. Zuly Medina Erythrocyte distribution width (RBC) [Ratio] 14.1 % Normal 11.0-15.0 [facility] Comment on above: Performed By: #### CHIDI MCDANIEL #### [facility] [address] [place] [address] Dr. Zuly Medina Hematocrit (Bld) [Volume fraction] 36.0 % Normal 36.0-48.0 [facility] Comment on above: Performed By: #### Oliverio SIMS [place] #### [facility] [address] [place] [address] Dr. Zuly Medina Hemoglobin (Bld) [Mass/Vol] 11.6 g/dL Critically low 12.0-16.0 [facility] Comment on above: Performed By: #### Oliverio SIMS [place] #### [facility] [address] [place] [address] Dr. Zuly Medina IG # 0.01 10e3/ul Normal 0.00-0.03 [facility] Comment on above: Performed By: #### Oliverio SIMS [place] #### [facility] [address] [place] [address] Dr. Zuly Medina IG % 0.1 % Normal 0.0-0.5 [facility] Comment on above: Performed By: #### C [place], [place] #### [facility] [address] [place] [address] Dr. Zuly Medina LYMPH # 1.3 103/ul Normal 1.2-3.8 [facility] Comment on above: Performed By: #### C [place], [place] #### [facility] [address] [place] [address] Dr. Zuly Medina Lymphocytes/100 WBC (Bld) 19.3 % Critically low 20.5-60.0 [facility] Comment on above: Performed By: #### C [place], [place] #### [facility] [address] [place] [address] Dr. Zuly Medina MANUAL DIFF REQ NO Normal [facility] Comment on above: Performed By: #### Oliverio SIMS, [place] #### [facility] [address] [place] [address] Dr. Zuly Medina MCH (RBC) [Entitic mass] 31.4 pg Normal 26.7-34.0 [facility] Comment on above: Performed By: #### Oliverio SIMS, [place] #### [facility] [address] [place] [address] Dr. Zuly Medina MCHC (RBC) [Mass/Vol] 32.2 g/dL Normal 29.9-35.2 [facility] Comment on above: Performed By: #### Oliverio SIMS, [place] #### [facility] [address] [place] [address] Dr. Zuly Medina MCV (RBC) [Entitic vol] 97.6 fL Normal 81.0-99.0 [facility] Comment on above: Performed By: #### C [place], [place] #### [facility] [address] [place] [address] Dr. Zuly Medina MONO # 0.8 103/ul Normal 0.3-0.8 [facility] Comment on above: Performed By: #### Oliverio SIMS, [place] #### [facility] [address] [place] [address] Dr. Zuly Medina Monocytes/100 WBC (Bld) 11.8 % Normal 1.7-12.0 [facility] Comment on above: Performed By: #### CHIDI MCDANIEL #### [facility] [address] [place] [address] Dr. Zuly Medina NEUT # 4.4 103/ul Normal 1.4-6.5 [facility] Comment on above: Performed By: #### CHIDI MCDANIEL #### [facility] [address] [place] [address] Dr. Zuly Medina Neutrophils/100 WBC (Bld) 64.3 % Normal 43.0-75.0 [facility] Comment on above: Performed By: #### CHIDI MCDANIEL #### [facility] [address] [place] [address] Dr. Zuly Medina Platelet mean volume (Bld) [Entitic vol] 10.1 fL Normal 9.5-13.5 [facility] Comment on above: Performed By: #### CHIDI MCDANIEL #### [facility] [address] [place] [address] Dr. Zuly Medina PLT 311 103/ul Normal 150-450 [facility] Comment on above: Performed By: #### CHIDI MCDANIEL #### [facility] [address] [place] [address] Dr. Zuly Medina RBC 3.69 106/ul Critically low 4.20-5.40 [facility] Comment on above: Performed By: #### CHIDI MCDANIEL #### [facility] [address] [place] [address] Dr. Zuly Medina WBC 6.9 103/ul Normal 4.0-11.0 [facility] Comment on above: Performed By: #### CHIDI MCDANIEL #### [facility] [address] [place] [address] Dr. Zuly Medina GLYCOHEMOGLOBIN A1Con 2021 ADA RECOMMENDATION SEE BELOW Normal [facility] Comment on above: Result Comment: ADA RECOMMENDED LIMIT 4.0 - 6.0 ADA THERAPEUTIC TARGET < 7.0 ACTION SUGGESTED > 7.0 Performed By: #### A 1C #### [facility] [address] [address] [address] Zuly Medina Glucose [Mass/Vol] 103 mg/dL Normal [facility] Comment on above: Performed By: #### A 1C #### [facility] [address] [address] [address] Zuly Medina HbA1c (Bld) [Mass fraction] 5.2 % Normal 4.5-6.2 [facility] Comment on above: Performed By: #### A 1C #### [facility] [address] [place] [address] Dr. Zuly Medina IRONon 11-14-2021 Iron [Mass/Vol] 60.0 ug/dL Normal 50.0-170.0 [facility] Comment on above: Performed By: #### C VDTBH #### [facility] [address] [place] [address] Dr. Zuly Medina LIPID PROFILEon 11-14-2021 CHOL-HDL RATIO NORM SEE BELOW Normal [facility] Comment on above: Result Comment: 3.3 - 4.4 LOW RISK 4.4 - 7.1 AVERAGE RISK 7.1 - 11.0 MODERATE RISK >11.0 HIGH RISK Performed By: #### CHIDI MCDANIEL #### [facility] [address] [place] [address] Dr. Zuly Medina Cholesterol [Mass/Vol] 145 mg/dL Normal <=200 [facility] Comment on above: Performed By: #### CHIDI MCDANIEL #### [facility] [address] [place] [address] Dr. Zuly Medina Cholesterol in HDL [Mass/Vol] 65 mg/dL Critically high 40-60 [facility] Comment on above: Performed By: #### CHIDI MCDANIEL #### [facility] [address] [place] [address] Dr. Zuly Medina Cholesterol in LDL [Mass/Vol] 72.2 mg/dL Normal [facility] Comment on above: Performed By: #### CHIDI MCDANIEL #### [facility] [address] [place] [address] Dr. Zuly Medina Cholesterol.total/Ch olesterol in HDL [Mass ratio] 2.2 {ratio} Normal [facility] Comment on above: Performed By: #### CHIDI MCDANIEL #### [facility] [address] [address] [address] Zuly Medina HDL NORMAL > or = 60 mg/dl - LO W CARDIOVASCULAR RISK <40 mg/dl - HIGH CARDIOVASCULAR RISK Normal [facility] Comment on above: Performed By: #### [place]io SIMS [place] #### [facility] [facility] [address] [place] [address] Dr. Zuly Medina LDL CALC NORMAL SEE BELOW Normal [facility] Comment on above: Result Comment: <100 mg/dl OPTIMAL 100 - 129 mg/dl NEAR OR ABOVE OPTIMAL 130 - 159 mg/dl BORDERLINE HIGH 160 - 189 mg/dl HIGH >190 mg/dl VERY HIGH Performed By: #### CHIDI MCDANIEL #### [facility] [address] [place] [address] Dr. Zuly Medina Triglyceride [Mass/Vol] 39 mg/dL Normal <=150 [facility] Comment on above: Performed By: #### CHIDI MCDANIEL #### [facility] [address] [address] [address] Zuly Medina VLDL CALC 7.8 mg/dL Normal [facility] Comment on above: Performed By: #### CHIDI MCDANIEL #### [facility] [address] [address] [address] Zuly Medina PROF 14(COMP METB)on 022 Albumin [Mass/Vol] 3.8 g/dL Normal 3.4-5.0 [facility] Comment on above: Performed By: #### CHIDI MCDANIEL #### [facility] [address] [place] [address] Dr. Zuly Medina Albumin/Globulin [Mass ratio] 1.4 {ratio} Normal [facility] Comment on above: Performed By: #### Oliverio SIMS [place] #### [facility] [address] [address] [address] Zuly Medina ALP [Catalytic activity/Vol] 41 U/L Critically low 46-116 [facility] Comment on above: Performed By: #### Oliverio SIMS, [place] #### [facility] [address] [place] [address] Dr. Zuly Medina ALT [Catalytic activity/Vol] 20 U/L Normal 14-59 [facility] Comment on above: Performed By: #### Oliverio SIMS, [place] #### [facility] [address] [address] [address] Zuly Medina Anion gap [Moles/Vol] 8.2 mmol/L Normal [facility] Comment on above: Performed By: #### Oliverio SIMS, [place] #### [facility] [address] [place] [address] Dr. Zuly Medina AST [Catalytic activity/Vol] 25 U/L Normal 15-37 [facility] Comment on above: Performed By: #### Oliverio SIMS, [place] #### [facility] [address] [place] [address] Dr. Zuly Medina Bilirubin [Mass/Vol] 0.4 mg/dL Normal 0.2-1.0 [facility] Comment on above: Performed By: #### Oliverio SIMS, [place] #### [facility] [address] [place] [address] Dr. Zuly Medina Calcium [Mass/Vol] 10.1 mg/dL Normal 8.5-10.1 [facility] Comment on above: Performed By: #### Oliverio SIMS, [place] #### [facility] [address] [place] [address] Dr. Zuly Medina Chloride [Moles/Vol] 104 mmol/L Normal 98-107 [facility] Comment on above: Performed By: #### Oliverio SIMS, [place] #### [facility] [address] [place] [address] Dr. Zuly Medina CO2 [Moles/Vol] 31.6 mmol/L Normal 21.0-32.0 [facility] Comment on above: Performed By: #### Oliverio SIMS, [place] #### [facility] [address] [place] [address] Dr. Zuly Medina Creatinine [Mass/Vol] 1.44 mg/dL Critically high 0.55-1.02 [facility] Comment on above: Performed By: #### CHIDI MCDANIEL #### [facility] [address] [address] [address] Zuly Medina EGFR-AF BOLIVIAN 43 mL/min/1.73m2 Critically low >=60 [facility] Comment on above: Performed By: #### Oliverio [place]S [place] #### [facility] [address] [address] [address] Zuly Medina EGFR-NON AF BOLIVIAN 36 mL/min/1.73m2 Critically low >=60 [facility] Comment on above: Performed By: #### Oliverio SIMS [place] #### [facility] [address] [place] [address] Dr. Zuly Medina Globulin (S) [Mass/Vol] 2.8 g/dL Normal [facility] Comment on above: Performed By: #### CHIDI MCDANIEL #### [facility] [address] [place] [address] Dr. Zuly Medina Glucose [Mass/Vol] 100 mg/dL Normal 74-106 [facility] Comment on above: Performed By: #### CHIDI MCDANIEL #### [facility] [address] [place] [address] Dr. Zuly Medina Potassium [Moles/Vol] 3.8 mmol/L Normal 3.5-5.1 [facility] Comment on above: Performed By: #### Oliverio [place]S [place] #### [facility] [address] [place] [address] Dr. Zuly Medina Protein [Mass/Vol] 6.6 g/dL Normal 6.4-8.2 [facility] Comment on above: Performed By: #### Oliverio [place]S [place] #### [facility] [address] [place] [address] Dr. Zuly Medina Sodium [Moles/Vol] 140 mmol/L Normal 136-145 [facility] Comment on above: Performed By: #### CHIDI MCDANIEL #### [facility] [address] [address] [address] Zuly Medina Urea nitrogen [Mass/Vol] 28.0 mg/dL Critically high 7.0-18.0 [facility] Comment on above: Performed By: #### C CHIDI SIMS #### [facility] [address] [place] [address] Dr. Zuly Medina Urea nitrogen/Creatinine [Mass ratio] 19.4 mg/mg Normal [facility] Comment on above: Performed By: #### C BETHANY, CHIDI #### [facility] [address] [place] [address] Dr. uZly Medina TSHon 11-14-2021 TSH 1.676 uIU/mL Normal 0.358-3.740 [facility] Comment on above: Performed By: #### CHIDI MCDANIEL #### [facility] [address] [place] [address] Dr. Zuly Medina Covid-19 PCR (CVDTB)on 10-05 SARS-CoV-2 (COVID-19) RNA MARY+probe Ql (Unsp spec) Not detected Normal NOT DETECTED [facility] Comment on above: Result Comment: When [...] for this test is supported by the [place] of Health and Human Service's declaration that [...] used). Performed By: #### C VDTBH #### [facility] [address] [place] [address] Dr. Zuly Medina CREATININEon 09-18-2021 Creatinine [Mass/Vol] 1.33 mg/dL Critically high 0.55-1.02 [facility] Comment on above: Performed By: #### CHIDI MCDANIEL #### [facility] [address] [address] [address] Zuly Medina EGFR-AF BOLIVIAN 48 mL/min/1.73m2 Critically low >=60 [facility] Comment on above: Performed By: #### CHIDI MCDANIEL #### [facility] [address] [address] [address] Zuly Medina EGFR-NON AF BOLIVIAN 39 mL/min/1.73m2 Critically low >=60 [facility] Comment on above: Performed By: #### CHIDI MCDANIEL #### [facility] [address] [address] [address] Zuly Medina MRI BRAIN WO W [...] WEI GARCIA Date: 2021-09-18 16:23 Normal [facility] Covid-19 PCR (CVDTB)on 08-05 SARS-CoV-2 (COVID-19) RNA MARY+probe Ql (Unsp spec) Not detected Normal NOT DETECTED [facility] Comment on above: Result Comment: This test is not yet approved or cleared by the [place] FDA. When there are no FDA-approved or cleared tests available, and other criteria are met, FDA can make tests available under an emergency access mechanism called an Emergency Use Authorization (EUA). The EUA for this test is supported by the [place] of Health and Human Service's (HHS's) declaration [...] SARS-CoV-2. Performed By: #### C VDTB #### [facility] [address] [place] [address] Dr. Zuly Medina SYMPTOMATIC COVID-19 ANTIGEN on 08-23-2021 EUA Statement SEE BELOW Normal [facility] Comment on above: Result Comment: This test [...] sooner. Performed By: #### C VDTB #### [facility] [address] [place] [address] Dr. Zuly Medina SARS-CoV-2 (COVID-19) RNA MARY+probe Ql (Unsp spec) Negative Normal NEGATIVE [facility] Comment on above: Performed By: #### C [facility] #### [facility] [address] [place], [place] [address] Dr. Zuly Medina Q - Diptheria/Tetanus Abon 0 08-09-2021 DIPHTHERIA ANTITOXOID 0.25 IU/mL Normal [facility] Comment on above: Order Comment: [facility] performed at: [facility] [facility], [address], [place], [place], , School Athletic Director: Sahil Dyson M.D.,PhD [facility] Date/Time: [...] analytical performance characteristics have been determined by [employer] [place], [place]. It has not been cleared or approved by the U.S. Food and Drug Administration. This assay has been validated pursuant to the CLIA regulations and is used for clinical purposes. Performed By: #### 2 4729W, 31282G, 71230, 27345W, 24835M, 88058Z #### [facility] [address] [place] [address] TETANUS ANTITOXOID 4.67 IU/mL Normal [facility] Comment on above: Order Comment: [facility] performed at: [employer] [facility], [address], [place], [place], , School Athletic Director: Sahil Dyson M.D.,PhD [facility] Date/Time: [...] analytical performance characteristics have been determined by [facility], [place], [place]. It has not been cleared or approved by the U.S. Food and Drug Administration. This assay has been validated pursuant to the CLIA regulations and is used for clinical purposes. Performed By: #### 2 4729W, 63150H, 58260, 87994T, 65083O, 87237P #### [facility] [address] [place] [address] Q - IGA,SERUMon 08-09-2021 IMMUNOGLOBULIN A 125 mg/dL Normal 70-320 [facility] Comment on above: Order Comment: [facility] performed at: [place], [employer] [facility], [address] [place] [address], [address] [place] [address], [address] [place] [address], School Athletic Director: Thony Haley MD [facility] Date/Time: [facility] Results Received Date/Time: [facility] Reported Date/Time: Performed By: #### 2 4729W, 16391B, 21783, 69006Z, 18738Z, 77850L #### [facility] [address] [place] [address] Q - IGE,SERUMon 08-09-2021 IMMUNOGLOBULIN E 44 kU/L Normal [facility] Comment on above: Order Comment: [facility] performed at: [place], [employer] [facility], [address] [facility], [address] [place] [address], [address] [place] [address], School Athletic Director: Thony Haley MD [facility] Date/Time: [facility] Received Date/Time: [facility] Reported Date/Time: Performed By: #### 2 4729W, 85600C, 08949, 17975L, 57242V, 26118I #### [facility] [address] [place] [address] Q - IGG,SERUMon 08-09-2021 IMMUNOGLOBULIN G 895 mg/dL Normal 600-1540 [facility] Specialist Comment on above: Order Comment: [facility] performed at: [place], [employer] [facility], [address], [address] [place] [address], [address], School Athletic Director: Thony Haley MD [facility] Date/Time: [facility] Results Received Date/Time: [facility] Reported Date/Time: Performed By: #### 2 4729W, 29569C, 86291, 99130C, 18916K, 29892R #### [facility] [address] [place] [address] Q - IGM,SERUMon 08-09-2021 IMMUNOGLOBULIN M 158 mg/dL Normal 50-300 [facility] Comment on above: Order Comment: [facility] performed at: [place], [employer] [facility], [address], [address] [place] [address], [address], School Athletic Director: Thony Haley MD [facility] Date/Time: [facility] Results Received Date/Time: [facility] Reported Date/Time: Performed By: #### 2 4729W, 38112W, 29145, 00448O, 91804M, 85537N #### [facility] [address] [place] [address] Q - Strep pneumo Ab 23 serot ypeson 08-09-2021 SEROTYPE 1 (1) 9.5 Normal [facility] Commercial Loan Assistant Comment on above: Order Comment: [facility] performed at: , [employer],, [address] [place], [address], School Athletic Director: Osiris Galdamez MD,PhD,BHANU [facility] Date/Time: [facility] Results Received Date/Time: [facility] Reported Date/Time: Performed By: #### 2 4729W, 11884H, 20077, 46040V, 06578J, 79675E #### [facility] [address] [place] [address] SEROTYPE 12 (12F) 1.0 [facility] Comment on above: Order Comment: [facility] performed at: , [employer],, [address] [place] [address], , School Athletic Director: Osiris Galdamez MD,PhD,BHANU [facility] Date/Time: [facility] Received Date/Time: [facility] Reported Date/Time: Performed By: #### 2 4729W, 36205A, 32869, 77222H, 49161W, 66604M #### [facility] [address] [place] [address] SEROTYPE 14 (14) 3.3 [facility] Comment on above: Order Comment: [facility] performed at: [employer], [employer],, [address] [place] [address], , School Athletic Director: Osiris Galdamez MD,PhD,BHANU [facility] Date/Time: [facility] Received Date/Time: [facility] Reported Date/Time: Performed By: #### 2 4729W, 71853C, 94654, 41379Q, 76286Y, 06033R #### [facility] [address] [place] [address] SEROTYPE 17 (17F) 1.2 [facility] Comment on above: Order Comment: [facility] performed at: [facility], [employer] [facility],, [address] [place] [address], , School Athletic Director: Osiris Galdamez MD,PhD,BHANU [facility] Date/Time: [facility] Received Date/Time: [facility] Reported Date/Time: Performed By: #### 2 4729W, 85203X, 31173, 05936W, 04379I, 69933H #### [facility] [address] [place] [address] SEROTYPE 19 (19F) 2.8 Normal [facility] [place] [facility] Specialist Comment on above: Order Comment: [facility] performed at: [facility], [employer],, [address] [place] [address], , School Athletic Director: Osiris Galdamez MD,PhD,BHANU [facility] Date/Time: [facility] Received Date/Time: [facility] Reported Date/Time: Performed By: #### 2 4729W, 04498Y, 20988, 72601J, 28045O, 86099Z #### [facility] [address] [place] [address] SEROTYPE 2 (2) 7.[address] [facility] Specialist Comment on above: Order Comment: [facility] performed at: EZ, [employer] [facility],, [address] [place] [address], , School Athletic Director: Osiris Galdamez MD,PhD,BHANU [facility] Date/Time: [facility] Results Received Date/Time: [facility] Reported Date/Time: Performed By: #### 2 4729W, 71546V, 84514, 96040G, 30821O, 44774L #### [facility] [address] [place] [address] SEROTYPE 20 (20) 3.4 Normal [facility] Commercial Loan Assistant Comment on above: Order Comment: [facility] performed at: E[facility], [facility],, [address] [place], [place] [address], , School Athletic Director: Osiris Galdamez MD,PhD,BHANU [facility] Date/Time: [facility] Received Date/Time: [facility] Reported Date/Time: Performed By: #### 2 4729W, 25731Y, 79176, 59636S, 88350N, 91396N #### [facility] [address] [place] [address] SEROTYPE 22 (22F) 5.9 [facility] Comment on above: Order Comment: [facility] performed at: EZ, [employer] [facility],, [address] [place] [address], , School Athletic Director: Osiris Galdamez MD,PhD,BHANU [facility] Date/Time: [facility] Received Date/Time: [facility] Reported Date/Time: Performed By: #### 2 4729W, 94022P, 53151, 50095Q, 97343M, 24708T #### [facility] [address] [place] [address] SEROTYPE 23 (23F) 5.2 [facility] Comment on above: Order Comment: [facility] performed at: EZ, [facility],, [address] [place] [address], , School Athletic Director: Osiris Galdamez MD,PhD,BHANU [facility] Date/Time: [facility] Results Received Date/Time: [facility] Reported Date/Time: Performed By: #### 2 4729W, 05474J, 87842, 91818E, 42324Y, 41599A #### [facility] [address] [place] [address] SEROTYPE 26 (6B) 18.8 Normal [facility] Comment on above: Order Comment: [facility] performed at: EZ, [employer] [facility],, [address] [place] [address], , School Athletic Director: Osiris Galdamez MD,PhD,BHANU [facility] Date/Time: [facility] Results Received Date/Time: [facility] Reported Date/Time: Performed By: #### 2 4729W, 43275N, 91971, 85628Q, 79527N, 19420E #### [facility] [address] [place] [address] SEROTYPE 3 (3) 1.[address] [facility] Specialist Comment on above: Order Comment: [facility] performed at: EZ, [employer] [facility],, [address] [place] [address], , School Athletic Director: Osiris Galdamez MD,PhD,BHANU [facility] Date/Time: [facility] Results Received Date/Time: [facility] Reported Date/Time: Performed By: #### 2 4729W, 30090M, 07394, 16641S, 76807K, 93463D #### [facility] [address] [place] [address] SEROTYPE 34 (10A) 0.9 Normal [facility] Comment on above: Order Comment: [facility] performed at: EZ, [employer] [facility],, [address] [place], [place], , School Athletic Director: Osiris Galdamez MD,PhD,BHANU [facility] Date/Time: [facility] Results Received Date/Time: [facility] Reported Date/Time: Performed By: #### 2 4729W, 85637W, 59183, 88129R, 42720X, 91839Y #### [facility] [address] [place] [address] SEROTYPE 4 (4) <0.3 Normal [facility] Commercial Loan Assistant Comment on above: Order Comment: [facility] performed at: E[facility], [employer] [facility],, [address] [place] [address], , School Athletic Director: Osiris Galdamez MD,PhD,BHANU [facility] Date/Time: [facility] Results Received Date/Time: [facility] Reported Date/Time: Performed By: #### 2 4729W, 61329Z, 36347, 40928O, 97200R, 03475H #### [facility] [address] [place] [address] SEROTYPE 43 (11A) 1.1 Normal [facility] [place] [facility] Specialist Comment on above: Order Comment: [facility] performed at: E[facility], [employer] [facility],, [address] [place] [address], , School Athletic Director: Osiris Galdamez MD,PhD,BHANU [facility] Date/Time: [facility] Results Received Date/Time: [facility] Reported Date/Time: Performed By: #### 2 4729W, 58139O, 99724, 63101I, 59822B, 58570Z #### [facility] [address] [place] [address] SEROTYPE 5 (5) 2.3 Normal [facility] Commercial Loan Assistant Comment on above: Order Comment: [facility] performed at: E[facility], [employer] [facility],, [address] [place] [address], , School Athletic Director: Osiris Galdamez MD,PhD,BHANU [facility] Date/Time: [facility] Results Received Date/Time: [facility] Reported Date/Time: Performed By: #### 2 4729W, 67842W, 02836, 59605Q, 85690S, 39828L #### [facility] [address] [place] [address] SEROTYPE 51 (7F) 8.4 Normal [facility] Comment on above: Order Comment: [facility] performed at: E[facility], [employer] [facility],, [address] [place], , School Athletic Director: Osiris Galdamez MD,PhD,BHANU [facility] Date/Time: [facility] Results Received Date/Time: [facility] Reported Date/Time: Performed By: #### 2 4729W, 52851F, 14428, 43564Y, 51252I, 86367P #### [facility] [address] [place] [address] SEROTYPE 54 (15B) 2.3 Normal [facility] Comment on above: Order Comment: [facility] performed at: E[facility], [employer] [facility],, [address] [place], [place] [address], , School Athletic Director: Osiris Galdamez MD,PhD,BHANU [facility] Date/Time: [facility] Results Received Date/Time: [facility] Reported Date/Time: Performed By: #### 2 4729W, 10610Q, 49831, 53813F, 06786X, 87243K #### [facility] [address] [place] [address] SEROTYPE 56 (18C) 18.7 [facility] Comment on above: Order Comment: [facility] performed at: E[facility], [facility] [facility],, [address] [place], , School Athletic Director: Osiris Galdamez MD,PhD,BHANU [facility] Date/Time: [facility] Results Received Date/Time: [facility] Reported Date/Time: Performed By: #### 2 4729W, 93572I, 52548, 26721V, 47284S, 20337V #### [facility] [address] [place] [address] SEROTYPE 57 (19A) 15.6 Normal [facility] [place] [facility] Specialist Comment on above: Order Comment: [facility] performed at: EZ, [employer] [facility],, [address] [place], [place], , School Athletic Director: Osiris Galdamez MD,PhD,BHANU [facility] Date/Time: [facility] Results Received Date/Time: [facility] Reported Date/Time: Performed By: #### 2 4729W, 46351F, 82184, 08456Y, 66083T, 75922M #### [facility] [address] [place] [address] SEROTYPE 68 (9V) 2.1 Normal [facility] Comment on above: Order Comment: [facility] performed at: EZ, [employer] [facility],, [address] [place], [place] [address], , School Athletic Director: Osiris Galdamez MD,PhD,BHANU [facility] Date/Time: [facility] Results Received Date/Time: [facility] Reported Date/Time: Performed By: #### 2 4729W, 00175E, 88263, 64914V, 70793A, 85289R #### [facility] [address] [place] [address] SEROTYPE 70 (33F) 28.9 Normal [facility] [place] [facility] Specialist Comment on above: Order Comment: [facility] performed at: EZ, [facility] [facility] [facility] [facility],, [address], [place], [address], School Athletic Director: Osiris Galdamez MD,PhD,BHANU [facility] Date/Time: [...] serotype-specific titers may have less robust responses. [employer] uses a multi-analyte immunodetection (MAID) method. The method employs the [employer] flow cytometric system which measures multiple analytes [...] analytical performance characteristics have been determined by [employer]. It has not been cleared or approved by FDA. This assay has been validated pursuant to the CLIA regulations and used for clinical purposes. For additional information, please refer to http://education.[employer].Germmatters/faq/CJN985 (This link is being provided for informational/ educational purposes only.) Performed By: #### 2 4729W, 77017P, 65818, 60380S, 84674P, 88659M #### [facility] [address] [place] [address] SEROTYPE 8 (8) 14.6 Normal [facility] Commercial Loan Assistant Comment on above: Order Comment: [facility] performed at: EZ, [employer],, [address] [place] [address], , School Athletic Director: Osiris Galdamez MD,PhD,BHANU [facility] Date/Time: [facility] Results Received Date/Time: [facility] Reported Date/Time: Performed By: #### 2 4729W, 44707T, 59133, 16407A, 38554L, 54542Q #### [facility] [address] [place] [address] SEROTYPE 9 (9N) 1.0 Normal [facility] Commercial Loan Assistant Comment on above: Order Comment: [facility] performed at: [employer], [employer] [facility] [facility],, [address] [place] [address], , School Athletic Director: Osiris Galdamez MD,PhD,BHANU [facility] Date/Time: [facility] Results Received Date/Time: [facility] Reported Date/Time: Performed By: #### 2 4729W, 12186B, 60[address], [id number], [id number], [id number] #### [facility] [address] [place] [address] CT SINUSES WO CONon 08-06-19 CT SINUSES [...] WEI GARCIA Date: 2021-08-05 08:48 Normal [facility] MG MAMM DX 3D LT CADon 08-05 MG MAMM DX 3D LT CAD Patient: ADRIANNA BUITRAGO Exam Date: 08/05/2021 : 1950 Gender:F Ordering : DR JENNY BURRIS . Admission #: [id number] Family : Order #: [id number] CLICK HERE TO VIEW EXAM RADIOLOGY REPORT [...] lung cancer at age 59. LOCATION: [facility] BREAST COMPOSITION: Scattered areas fibroglandular density. [...] M.D. on 08/05/2021 at 09:25 Normal [facility] US BREAST LEFT LIMITEDon US BREAST LEFT LIMITED Patient: ADRIANNA BUITRAGO Exam Date: 08/05/2021 : 1950 Gender:F Ordering : DR JENNY BURRIS . Admission #: [id number] Family : Order #: [id number] CLICK HERE TO VIEW EXAM RADIOLOGY REPORT [...] lung cancer at age 59. LOCATION: [facility] BREAST COMPOSITION: Scattered areas fibroglandular density. [...] at 09:25 Normal [facility] Vital Signs Date Time Vital Sign Value Performing Clinician Faci lity 01-28-2024 08:34-0400 Body height 160 cm Renny Orlando DPM Work Phone: [facility] 01-28-2024 08:34-0400 Body mass index (BMI) [Ratio] 22.85 kg/m2 Renny Orlando DPM Work Phone: [facility] 01-28-2024 08:34-0400 Body weight 58.51 kg Renny Orlando DPM Work Phone: [facility] 01-28-2024 08:34-0400 Diastolic blood pressure 80 mm[Hg] Renny Orlando DPM Work Phone: [facility] 01-28-2024 08:34-0400 Heart rate 81 /min Renny Orlando DPM Work Phone: [facility] 01-28-2024 08:34-0400 Systolic blood pressure 128 mm[Hg] Renny Orlando DPM Work Phone: [facility] 01-14-2024 08:38-0400 Body height 160 cm Renny Orlando DPM Work Phone: [facility] 01-14-2024 08:38-0400 Body mass index (BMI) [Ratio] 22.85 kg/m2 Renny Orlando DPM Work Phone: [facility] 01-14-2024 08:38-0400 Body weight 58.51 kg Renny Orlando DPM Work Phone: [facility] 01-14-2024 08:38-0400 Respiratory rate 18 /min Renny Orlando DPM Work Phone: [facility] Healthcare Encounters Encounter Date Encounter Type Care Provider Facility Start: 01-28-2024 End: 01-28-2024 Bamboo flowsheet Renny Orlando DPM Work Phone: [facility] Start: 01-28-2024 End: 01-28-2024 Bamboo flowsheet Renny Orlando DPM Work Phone: [facility] Start: 01-28-2024 End: 01-28-2024 Patient encounter procedure Renny Orlando DPM Work Phone: [facility] Comment on above: Verruca plantaris (P rimary Dx); Foot pain, right; Foot pain, left Start: 01-14-2024 End: 01-14-2024 Bamboo flowsheet Renny Marie Darion DPM Work Phone: [facility] Start: 01-14-2024 End: 01-14-2024 Bamboo flowsheet Renny A Darion DPM Work Phone: [facility] Start: 01-14-2024 End: 01-14-2024 Patient encounter procedure Renny Marie Darion DPM Work Phone: [facility] Comment on above: Verruca plantaris (P rimary Dx); Foot pain, right; Foot pain, left Start: 01-14-2024 End: 01-14-2024 ambulatory RENNY Frank ORLANDO Not Available Start: 12-31-2023 End: 12-31-2023 ambulatory RENNY A DARION Not Available Start: 12-17-2023 End: 12-17-2023 ambulatory RENNY A BROWN Not Available Start: 12-15-2023 End: 12-15-2023 ambulatory SANDEEP PLEITEZ Not Available Start: 12-03-2023 End: 12-03-2023 ambulatory RENNY A BROWN Not Available Start: 10-12-2023 End: 10-12-2023 ambulatory KEILA E RAMBASEK Not Available Start: 09-10-2023 End: 09-10-2023 ambulatory RENNY A BROWN Not Available Start: 08-05-2023 End: 08-06-2023 ambulatory Issa VALE Facility:[id number] Start: 07-15-2023 End: 07-15-2023 ambulatory KEILA E RAMBASEK Not Available Start: 07-02-2023 End: 07-02-2023 ambulatory RENNY A BROWN Not Available Start: 06-11-2023 End: 06-11-2023 ambulatory RENNY ORLANDO Not Available Start: 06-09-2023 End: 06-10-2023 ambulatory Issa VALE Facility:[facility] Start: 06-02-2023 ambulatory Issa VALE Facility:[facility] Start: 05-28-2023 End: 05-28-2023 ambulatory RENNY ORLANDO Facility: [facility] Start: 05-14-2023 Chart abstracting Renny lorenzana DPSobia Work Phone: [facility] Start: 05-14-2023 End: 05-14-2023 ambulatory RENNY ORLANDO Not Available Start: 04-30-2023 End: 04-30-2023 ambulatory RENNY ORLANDO Not Available Start: 04-10-2023 End: 04-10-2023 ambulatory [facility] Start: 11-25-2022 End: 11-25-2022 ambulatory [facility] Start: 07-02-2022 End: 07-02-[address] [...] . Facility:[facility] Start: 05-14-2022 End: 05-14-2022 ambulatory [facility] Start: 01-22-2022 End: 01-23-[address] JENNY [...] Treatment Date Care Activity Detail Author Start: 12-14-2024 End: 12-14-2024 Patient encounter procedure 12/14/2024 8:20 AM EDT Office Visit [facility] [address] [place] [address] Sandeep Pleitez NP [address] [place] [phone] [facility] Start: 04-18-2024 End: 04-18-2024 Patient encounter procedure 04/18/2024 9:20 AM EST Office Visit [facility] [address] [facility] [address] [place] [address] Keila Faith MD [address] [facility] [address] [place] [address] [facility] Start: 01-28-2024 End: 01-28-2024 Patient encounter procedure [facility] Comment on above: Verruca plantaris (P rimary Dx); Foot pain, right; Foot pain, left Start: 01-14-2024 End: 01-14-2024 Patient encounter procedure 01/14/2024 8:30 AM EDT Office Visit [facility] [address] [facility] [address] [place] [address] Renny Orlando DPM [address] [address] Verruca plantaris (Primary Dx); Foot pain, right; Foot pain, left [facility] Comment on above: Verruca plantaris (P rimary Dx); Foot pain, right; Foot pain, left Start: 12-14-2023 End: 12-14-2023 Patient encounter procedure 12/14/2023 9:20 AM EDT Office Visit [facility] [address] [facility] [address] [phone] Keila Faith MD [address] [facility] [address] [place] [address] [facility] Start: 12-06-2023 Influenza vaccination Influenza Vacc ine (#1) [facility] Healthcare Start: 05-14-2023 End: 05-14-2023 Patient encounter procedure 05/14/2023 8:40 AM EST Office Visit [facility] [address] [facility] [address] [place] [phone] Renny Orlando DPM [address] [address] [facility] Start: 12-05-2022 Influenza vaccination Influenza Vacc ine (#1) [facility] Start: 10-27-2018 Pneumococcal Vaccine : 65+ Years (2 - PPSV23 or PCV20) Pneumococcal Vaccine: 65+ Years (2 - PPSV23 or PCV20) [facility] Start: 10-27-2018 Pneumococcal Vaccine : 65+ Years (2 of 2 - PPSV23 or PCV20) Pneumococcal Vaccine: 65+ Years (2 of 2 - PPSV23 or PCV20) [facility] Start: 1989 Screening for malign ant neoplasm of breast Mammogram [facility] Start: 1950 Screening for malign ant neoplasm of colon [facility] Payers Date Payer Category Payer Private Health Insurance [employer] [id number] 2021 Unknown [employer] [id number] 2021-Present [address] [place] [address] [id number] 2014 Medicare [id number] 1959 Medicare [id number] 1959 Unknown [id number] 1950 Unknown [id number] 2.16.840.1.230929.3.579.2. 593 1950 Unknown [id number] 2.16.840.1.326022.3.579.2. 593 1949 Unknown [id number] 2.16.840.1.341459.3.579.2. 593 1949 Unknown [id number] 2.16.840.1.817009.3.579.2. 593 1949 Unknown [id number] 2.16.840.1.207950.3.579.2. 593 1949 Unknown [id number] 2.16.840.1.605249.3.579.2. 593 1949 Unknown [id number] 2.16.840.1.945587.3.579.2. 593 1949 Unknown [id number] 2.16.840.1.813213.3.579.2. 593 1949 Unknown [id number] 2.16.840.1.937962.3.579.2. 593 1949 Unknown [id number] 2.16.840.1.411864.3.579.2. 593 1949 Unknown [id number] 2.16.840.1.918834.3.579.2. 593 1949 Unknown [id number] 2.16.840.1.010692.3.579.2. 593 1949 Unknown [id number] 2.16.840.1.017897.3.579.2. 593 1949 Unknown [id number] 2.16.840.1.215738.3.579.2. 593 1949 Unknown [id number] 2.16.840.1.936299.3.579.2. 593 1949 Unknown [id number] 2.16.840.1.983763.3.579.2. 593 1949 Unknown [id number] 2.16.840.1.351279.3.579.2. 727 1949 Unknown [id number] 2.16.840.1.085641.3.579.2. 727 1949 Unknown [id number] 2.16.840.1.651841.3.579.2. 1259 1949 Unknown [id number] 2.16.840.1.967768.3.579.2. 1259 1949 Unknown [id number] 2.16.840.1.094553.3.579.2. 1259 1949 Unknown [id number] 2.16.840.1.889756.3.579.2. 1259 1949 Unknown [id number] 2.16.840.1.446639.3.579.2. 1259 1949 Unknown [id number] 2.16.840.1.636674.3.579.2. 1259 1949 Unknown [id number] 2.16.840.1.094071.3.579.2. 9 1949 Unknown [id number] 2.16.840.1.471309.3.579.2. 9 1949 Unknown [id number] 2.16.840.1.642565.3.579.2. 1258 1949 Unknown [id number] 2.16.840.1.436443.3.579.2. 9 1949 Unknown [id number] 2.16.840.1.334209.3.579.2. 9 1949 Unknown [id number] 2.16.840.1.369012.3.579.2. 9 1950 Unknown [id number] 2.16.840.1.440762.3.579.2. 1259 Social History Date Type Detail Facility Start: 04-30-2023 End: 12-03-2023 Tobacco smoking status [facility] Ex-smoker [facility] End: 04-06-2006 History of tobacco use Current smoker [facility] End: 04-06-2006 History of tobacco use Cigarette Smoker [facility] History of tobacco use Passive smoker [facility] Start: 04-30-2023 End: 12-03-2023 Tobacco use and exposure Smokeless tobacco non-user [facility] Start: 05-14-2023 Alcohol intake Lifetime non-d hugo (finding) [facility] Start: 04-30-2023 End: 01-14-2024 History of Social function [facility] Start: 04-30-2023 End: 01-14-2024 Tobacco use panel [facility] Start: 12-12-2022 Alcohol Comment Caffeine intake: non e [facility] Start: 1950 Sex Assigned At Not on file N [facility] Start: 12-31-2023 End: 01-28-2024 Alcoholic beverage intake Ex-drinker (finding) [facility] Start: 12-14-2023 Alcohol Comment Caffeine intak e: none; quit in 2015 [facility] Clinical Notes 05-14-2022 to 01-28-2024 Renny Orlando, SANKET - 01/28/2024 8:40 AM EDTRenny Orlando DPM - 01/14/2024 8:30 AM EDT Note Date & Type Note Facility 01-28-2024 History of Present illness Narrative Patient: Adrianna Buitrago : 1950 PCP: Jenny Burris MD SUBJECTIVE Patient presents today for follow up of skin lesion/neoplasm of unknown origin to the right and left foot Pt states that previous treatment of acid tx with some improvement Pt rates pain the pain on a 1-10 scale an intensity of 2 Pt presents today for followup. Allergies: Allergies Allergen Reactions Amoxicillin Itching, Other and Unknown Molds & Smuts Unknown Morphine Itching and Other Past Medical History: Past Medical History: Diagnosis Date Chronic bronchitis (CMS/HCC) Heart murmur History of herniated intervertebral disc History of varicose veins Hyperlipidemia (CMS/HCC) Hypertension (CMS/HCC) Hyperthyroidism (CMS/HCC) Kidney disease Osteoarthritis Osteoporosis (CMS/HCC) Varicose vein of leg Medications: Current Outpatient Medications: aspirin 81 MG EC tablet, 1 (one) time each day at the same time., Disp: , Rfl: azelastine (Astelin) 0.1 % nasal spray, Azelastine HCl Two sprays per nostril on a b.I.d. basis., Disp: 30 mL, Rfl: 11 Tnytmwn-Zbcpqshlwau-Itdyramhxs (Breztri Aerosphere) 160-9-4.8 MCG/ACT aerosol, Inhale 1 puff Daily, Disp: , Rfl: budesonide (Pulmicort) 1 MG/2ML nebulizer solution, Take 2 mL (1 mg) by nebulization in the morning and 2 mL (1 mg) before bedtime. Rinse mouth with water after use to reduce aftertaste and incidence of candidiasis. Do not swallow.., Disp: 124 mL, Rfl: 11 cloNIDine (Catapres) 0.1 MG tablet, Take 0.1 mg by mouth in the morning and 0.1 mg before bedtime., Disp: , Rfl: cloNIDine (Catapres-TTS) 0.1 MG/24HR, cloNIDine, Disp: , Rfl: denosumab (Prolia) 60 MG/ML solution prefilled syringe, Inject 60 mg under the skin every 6 (six) months, Disp: , Rfl: fenofibrate (Triglide) 160 MG tablet, Take 1 tablet by mouth in the morning., Disp: , Rfl: fluticasone (Flonase) 50 MCG/ACT nasal spray, 1 (one) time each day at the same time., Disp: , Rfl: furosemide (Lasix) 20 MG tablet, Take 1 tablet every day by oral route for 90 days., Disp: , Rfl: ipratropium (Atrovent) 0.02 % nebulizer solution, Take 2.5 mL (0.5 mg) by nebulization 4 (four) times a day as needed for wheezing or shortness of breath, Disp: 75 mL, Rfl: 11 lactulose (Chronulac) 10 GM/15ML solution, 30ml Oral twice daily as needed for 90 days, Disp: , Rfl: levothyroxine (Synthroid, Levoxyl) 100 MCG tablet, Take 100 mcg by mouth in the morning. Take before meals., Disp: , Rfl: liothyronine (Cytomel) 5 MCG tablet, Take by mouth Daily, Disp: , Rfl: omeprazole (PriLOSEC) [address] capsule, Take 1 capsule every day by oral route for 90 days., Disp: , Rfl: potassium chloride CR (Klor-Con) 10 MEQ ER tablet, Take 1 tablet 3 times a day by oral route for 90 days., Disp: , Rfl: pravastatin (Pravachol) 10 MG tablet, Take 10 mg by mouth at bedtime., Disp: , Rfl: Ubrogepant 100 MG tablet, Take 1 tablet by mouth Daily as needed (migraine), Disp: , Rfl: Social History: Social History Socioeconomic History Marital status: Spouse name: Not on file Number of children: Not on file Years of education: Not on file Highest education level: Not on file Occupational History Not on file Tobacco Use Smoking status: Former Current packs/day: 0.00 Types: Cigarettes Quit date: 04/06/2006 Years since quittin.8 Passive exposure: Past Smokeless tobacco: Never Vaping Use Vaping status: Unknown Substance and Sexual Activity Alcohol use: Not Currently Comment: Caffeine intake: none; quit in 2014 Drug use: Never Sexual activity: Defer Other Topics Concern Not on file Social History Narrative Not on file Social Drivers of Health Financial Resource Strain: Not on file Food Insecurity: Not on file Transportation Needs: Not on file Physical Activity: Not on file Stress: Not on file Social Connections: Not on file Intimate Partner Violence: Unknown (05/28/2023) [facility] [place] [facility] Environment Fear of Current or Ex-Partner: Not on file Emotionally Abused: Not on file Physically Abused: Not on file Sexually Abused: Not on file Physically or Sexually Abused: Not on file Housing Stability: Not on file ROS: General: denies fever, chills, fatigue, malaise OBJECTIVE LE EXAM: DERM: diminished hair growth to b/l feet with good skin turgor noted. Negative openings in skin. Nummular lesion measuring at the right sub 3rd metatarsal measuring 0.1 cm x 0.1 cm into the left sub 5th metatarsal region of 0.1 cm x 0.1 cm. Greatly diminished Dry and scaly skin to bilateral feet with peeling of skin in small fissures to heels with negative drainage or erythema Elongated thick yellow crumbly nails digits 1 through 10 VASC: Palpable pedal pulsed b/l with warm to cool tibia to toes b/l NEURO: Gross sensation intact digits 1-10 and b/l feet ORTHO: +5/5 DF/PF/IN/EV right, +5/5 DF/PF/IN/EV left. 20 degrees inversion and 10 degrees eversion STJ b/l. Ankle ROM less than 10 degrees b/l. Positive pain on palpation to right and left foot lesion Positive pain on palpation nails 1 through 10 XRAY: US: ASSESSMENT 1. Verruca plantaris 2. Foot pain, right 3. Foot pain, left PLAN Application of salinocaine acid medication to lesion/lesions located at right foot Informed pt of risks and benefits of procedure including high reoccurence rate, infection, pain and consent given. Application of DSD post procedure. Patient education on condition and treatment of condition. Application of salinocaine acid medication to lesion/lesions located at left foot Informed pt of risks and benefits of procedure including high reoccurence rate, infection, pain and consent given. Application of DSD post procedure. Continue creams twice daily to feet. Renny Orlando DPM documented in this encounter [facility] 01-14-2024 History of Present illness Narrative Patient: Adrianna Buitrago : 1950 PCP: Jenny Burris MD SUBJECTIVE Patient presents today for follow up of skin lesion/neoplasm of unknown origin to the right and left foot Pt states that previous treatment of acid tx with some improvement Pt rates pain the pain on a 1-10 scale an intensity of 2 Pt presents today for followup. Allergies: Allergies Allergen Reactions Amoxicillin Itching, Other and Unknown Molds & Smuts Unknown Morphine Itching and Other Past Medical History: Past Medical History: Diagnosis Date Chronic bronchitis (CMS/HCC) Heart murmur History of herniated intervertebral disc History of varicose veins Hyperlipidemia (CMS/HCC) Hypertension (CMS/HCC) Hyperthyroidism (CMS/HCC) Kidney disease Osteoarthritis Osteoporosis (CMS/HCC) Varicose vein of leg Medications: Current Outpatient Medications: aspirin 81 MG EC tablet, 1 (one) time each day at the same time., Disp: , Rfl: azelastine (Astelin) 0.1 % nasal spray, Azelastine HCl Two sprays per nostril on a b.I.d. basis., Disp: 30 mL, Rfl: 11 Okvgwar-Ckgqjuzvfvt-Xjpvvqjisy (Breztri Aerosphere) 160-9-4.8 MCG/ACT aerosol, Inhale 1 puff Daily, Disp: , Rfl: budesonide (Pulmicort) 1 MG/2ML nebulizer solution, Take 2 mL (1 mg) by nebulization in the morning and 2 mL (1 mg) before bedtime. Rinse mouth with water after use to reduce aftertaste and incidence of candidiasis. Do not swallow.., Disp: 124 mL, Rfl: 11 cloNIDine (Catapres) 0.1 MG tablet, Take 0.1 mg by mouth in the morning and 0.1 mg before bedtime., Disp: , Rfl: cloNIDine (Catapres-TTS) 0.1 MG/24HR, cloNIDine, Disp: , Rfl: denosumab (Prolia) 60 MG/ML solution prefilled syringe, Inject 60 mg under the skin every 6 (six) months, Disp: , Rfl: fenofibrate (Triglide) 160 MG tablet, Take 1 tablet by mouth in the morning., Disp: , Rfl: fluticasone (Flonase) 50 MCG/ACT nasal spray, 1 (one) time each day at the same time., Disp: , Rfl: furosemide (Lasix) 20 MG tablet, Take 1 tablet every day by oral route for 90 days., Disp: , Rfl: ipratropium (Atrovent) 0.02 % nebulizer solution, Take 2.5 mL (0.5 mg) by nebulization 4 (four) times a day as needed for wheezing or shortness of breath, Disp: 75 mL, Rfl: 11 lactulose (Chronulac) 10 GM/15ML solution, 30ml Oral twice daily as needed for 90 days, Disp: , Rfl: levothyroxine (Synthroid, Levoxyl) 100 MCG tablet, Take 100 mcg by mouth in the morning. Take before meals., Disp: , Rfl: liothyronine (Cytomel) 5 MCG tablet, Take by mouth Daily, Disp: , Rfl: omeprazole (PriLOSEC) [address] capsule, Take 1 capsule every day by oral route for 90 days., Disp: , Rfl: potassium chloride CR (Klor-Con) 10 MEQ ER tablet, Take 1 tablet 3 times a day by oral route for 90 days., Disp: , Rfl: pravastatin (Pravachol) 10 MG tablet, Take 10 mg by mouth at bedtime., Disp: , Rfl: Ubrogepant 100 MG tablet, Take 1 tablet by mouth Daily as needed (migraine), Disp: , Rfl: Social History: Social History Socioeconomic History Marital status: Spouse name: Not on file Number of children: Not on file Years of education: Not on file Highest education level: Not on file Occupational History Not on file Tobacco Use Smoking status: Former Current packs/day: 0.00 Types: Cigarettes Quit date: 04/06/2006 Years since quittin.7 Passive exposure: Past Smokeless tobacco: Never Vaping Use Vaping status: Unknown Substance and Sexual Activity Alcohol use: Not Currently Comment: Caffeine intake: none; quit in 2014 Drug use: Never Sexual activity: Defer Other Topics Concern Not on file Social History Narrative Not on file Social Determinants of Health Financial Resource Strain: Not on file Food Insecurity: Not on file Transportation Needs: Not on file Physical Activity: Not on file Stress: Not on file Social Connections: Not on file Intimate Partner Violence: Unknown (05/28/2023) [facility] [place] [facility] Fear of Current or Ex-Partner: Not on file Emotionally Abused: Not on file Physically Abused: Not on file Sexually Abused: Not on file Physically or Sexually Abused: Not on file Housing Stability: Not on file ROS: General: denies fever, chills, fatigue, malaise OBJECTIVE LE EXAM: DERM: diminished hair growth to b/l feet with good skin turgor noted. Negative openings in skin. Nummular lesion measuring at the right sub 3rd metatarsal measuring 0.1 cm x 0.1 cm into the left sub 5th metatarsal region of 0.1 cm x 0.1 cm. Diminished Dry and scaly skin to bilateral feet with peeling of skin in small fissures to heels with negative drainage or erythema Elongated thick yellow crumbly nails digits 1 through 10 VASC: Palpable pedal pulsed b/l with warm to cool tibia to toes b/l NEURO: Gross sensation intact digits 1-10 and b/l feet ORTHO: +5/5 DF/PF/IN/EV right, +5/5 DF/PF/IN/EV left. 20 degrees inversion and 10 degrees eversion STJ b/l. Ankle ROM less than 10 degrees b/l. Positive pain on palpation to right and left foot lesion Positive pain on palpation nails 1 through 10 XRAY: US: ASSESSMENT 1. Verruca plantaris 2. Foot pain, right 3. Foot pain, left PLAN Application of salinocaine acid medication to lesion/lesions located at right foot Informed pt of risks and benefits of procedure including high reoccurence rate, infection, pain and consent given. Application of DSD post procedure. Patient education on condition and treatment of condition. Application of salinocaine acid medication to lesion/lesions located at left foot Informed pt of risks and benefits of procedure including high reoccurence rate, infection, pain and consent given. Application of DSD post procedure. Continue creams twice daily to feet. Renny Orlando DPM documented in this encounter [facility] 06-09-2023 Note Chief Complaint consultation for colonoscopy HPI Staff 72 year old female presents on consultation from Dr. Bruris for surveillance colonoscopy. Last colonoscopy completed 06/2018-normal. [...] 1 tab(s), Oral, Daily Flonase 0.05 mg/inh [place], 2 spray(s), Nasal, Daily lactulose 10 g/15 [...] mEq= 1 tab(s (more content not included)... [facility] Comment on above: Result Comment: Elec [...] nostril in the morning and at bedtime. wrvbbicxbc-ceefmazw-cxezgtfvvr (Breztri Aerosphere) 160-9-4.8 mcg/actuation HFA aerosol inhaler [...] in 6-8 weeks, or sooner as needed Juanita Jenkins MD [facility] (more content not included)... [facility] 04-10-2023 Note Patient here for 6 [...] All other systems reviewed and are negative. [facility] 11-25-2022 Note Remains stable, ches t pain resolved and no acute concerns currently [facility] 11-25-2022 Note Current echo 05/2022- Mild MR and no concerning symptoms currently [facility] 11-25-2022 Note Current echo 05/2022- Mild MR and no concerning symptoms currently [facility] 11-25-2022 Note Continue pravastatin 10 mg daily and fenofibrate- pt states PCP orders her annual labs F/U with PCP [facility] 11-25-2022 Note UTP CARDIOLOGY PROGR ESS [...] Prior to Visit Medication Sig Dispense Refill vzjgwxtsrz-vothfaev-iqvdsczaxg (Breztri Aerosphere) 160-9-4.8 mcg/actuation HFA aerosol inhaler [...] no acute concerns currently RTC 4-6 months [facility] 05-26-2022 Note CARDIAC STRESS TEST Requesting Physician: Procedure Date:05/26/2022 This is a treadmill stress test with myocardial perfusion imaging, performed at the [facility] on 05/26/2022. Informed consent was obtained. 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 4. Myocardial perfusion images will be reported separately. [facility] [facility] 05-14-2022 Note Cardiology Follow Up Progress [...] Prior to Visit Medication Sig Dispense Refill aaperphyrw-kcaakagq-bgiprhuzkr (Breztri Aerosphere) 160-9-4.8 mcg/actuation HFA aerosol inhaler [...] red flag symptoms. (more content not included)... [facility] 05-14-2022 Note Patient here for 6 m o follow up valve regurgitation and hyperlipidemia. C/o intermittent chest pressure. She says sometimes she takes aspirin to relieve the pain if it lasts more then a few minutes. Occurs at rest, as well as exercise, but she states it's no worse with exercise. [facility] Evaluation note Diagnosis Verruca plantaris- Primary Plantar wart Foot pain, right Pain in soft tissues of limb Foot pain, left Pain in soft tissues of limb documented in this encounter [facility] Diagnosis Verruca plantaris- Primary Plantar wart Foot pain, right Pain in soft tissues of limb Foot pain, left Pain in soft tissues of limb documented in this encounter [facility] Summary Purpose Family History No Family History Records FoundNo Family History Records FoundNo Family History Records FoundNo Family History Records FoundNo Family History Records Found Advance Directives No Advanced Directives Records FoundNo Advanced Directives Records FoundNo Advanced Directives Records FoundNo Advanced Directives Records FoundNo Advanced Directives Records Found Additional Source Comments INFORMATION SOURCE (unrecogn ized section and content) DATE CREATED AUTHOR 08/17/2021 [facility] dical Specialist DATE CREATED AUTHOR AUTHOR'S ORGANIZ ATION 07/05/2022 [facility] pital DATE CREATED AUTHOR AUTHOR'S ORGANIZ ATION 05/11/2023 [facility] DATE CREATED AUTHOR AUTHOR'S ORGANIZ ATION 08/10/2023 [facility] DATE CREATED AUTHOR AUTHOR'S ORGANIZ ATION 01/16/2024 [facility] dical Specialists EPIC Care Teams (unrecognized sec tion and content) Sign Maintenance Relationship Specialty Start Date End Date Jenny Burris MD [address] [place] [address] PCP - General Family Medicine 04/30/23 Sign Maintenance Relationship Specialty Start Date End Date Jenny Burris MD [address] [place] [address] PCP - General Family Medicine 04/30/23 Sign Maintenance Relationship Specialty Start Date End Date Jenny Burris MD [address] [place] [address] PCP - General Family Medicine 04/30/23 Sign Maintenance Relationship Specialty Start Date End Date Jenny Burris MD [address] [place] [address] PCP - General Family Medicine 04/30/23 Sign Maintenance Relationship Specialty Start Date End Date Jenny Burris MD [address] [place] [phone] PCP - General Family Medicine 04/30/23 Reason for Visit (unrecogniz ed section and content) Reason Comments Follow-up rt lesions Reason Comments Lesion Removal FOR RECORDS PERTAINING TO PATIENTS WHO ARE [...] BE BASED ON THE PRIMARY CLINICAL RECORDS. [employer] [facility]. provides no warranty or guarantee of the accuracy or completeness of information in this document.
== END 2024-01-29 06:38 | disposition home or self-care (01) ==
LOC: MAMMO 06:37
PROVIDERS: PCP Family Medicine; Visit Provider Family Medicine
DX: Z12.31 Encounter for screening mammogram for malignant neoplasm of breast (principal); Z80.41 Family history of malignant neoplasm of ovary; Z80.8 Family history of malignant neoplasm of other organs or systems; Z80.1 Family history of malignant neoplasm of trachea, bronchus and lung
CPT/HCPCS: 77063; 77067

== ENCOUNTER 2024-04-12 09:16 | Outpatient (OUT) | payer MEDICARE, OTHER, SELFPAY ==
--- NOTE | 2024-04-12 09:34 | XR_ITS ---
[address] [address] Patient Name: AKIRA PERALTA MRN: [id number] date: 1950 Sex: F Assigned Patient Location: LAB Current Patient Location: Accession/Order Number: [id number] Exam Date: 04/12/2024 09:40 Report Date: 04/12/2024 22:11 At the request of: JENNY NATARAJAN Procedure: XR cervical spine 2-3V EXAM: XR cervical spine 2-3V HISTORY: Cervical Radiculopathy COMPARISON: None. FINDINGS/IMPRESSION: 1. No acute fracture or dislocation. 2. Moderate degeneration of the cervical spine disc spaces extending from C3-C4 through C6-C7. 3. Vertebral body height is preserved. 4. Prevertebral soft tissues are normal. Airway is patent. 5. Edentulous. 6. Lung apices are clear. Electronically authenticated by: CODY TOVAR Date: 04/12/2024 22:11
[2024-04-12 10:14] LABS: Calcium 9.9 mg/dL (8.5-10.1); Carbon Dioxide 29.6 mmol/L (21.0-32.0); Chloride 105 mmol/L (98-107); Estimated GFR (African America 54 (>=60 mL/min/1.73m^2); Estimated GFR (Non-African Ame 44 (>=60 mL/min/1.73m^2); Glucose 86 mg/dL (74-106); Potassium 3.6 mmol/L (3.5-5.1); Sodium 142 mmol/L (136-145)
== END 2024-04-12 09:17 | disposition home or self-care (01) ==
LOC: LAB 09:18
PROVIDERS: PCP Family Medicine; Visit Provider Family Medicine
DX: M54.12 Radiculopathy, cervical region (principal); R60.9 Edema, unspecified; M50.30 Other cervical disc degeneration, unspecified cervical region
CPT/HCPCS: 36415; 72040; 80048

== ENCOUNTER 2024-04-15 08:56 | Outpatient (RCR) | payer MEDICARE, OTHER, SELFPAY | END 2024-05-11 10:44 | disposition home or self-care (01) | LOC: PT 08:56 | PROVIDERS: PCP Family Medicine; Visit Provider Family Medicine | DX: M54.12 Radiculopathy, cervical region (principal); M25.512 Pain in left shoulder; M79.602 Pain in left arm; M25.522 Pain in left elbow | CPT/HCPCS: 97110; 97161 ==

== ENCOUNTER 2024-04-18 07:36 | Outpatient (OUT) | payer MEDICARE, OTHER, SELFPAY ==
--- NOTE | 2024-04-18 07:40 | MR_ITS ---
[address] [address] Patient Name: AKIRA PEARLTA MRN: [id number] date: 1950 Sex: F Assigned Patient Location: MRI Current Patient Location: MRI Accession/Order Number: [id number] Exam Date: 04/18/2024 07:50 Report Date: 04/18/2024 08:46 At the request of: JENNY NATARAJAN Procedure: MR cervical spine wo con EXAMINATION: MR cervical spine wo con HISTORY: Cervical Radiculopathy COMPARISON: No relevant comparison available. TECHNIQUE: A variety of imaging planes and parameters were utilized for visualization of suspected pathology. FINDINGS: CRANIOCERVICAL AREA: Normal foramen magnum with no Chiari malformation. PARASPINAL AREA: Normal with no visible mass. BONES: No acute fracture or spondylolisthesis. Moderate diffuse degenerative spondylosis. No bone edema CORD: Normal caliber, contour, and signal intensity. CERVICAL DISC LEVELS: C2-C3: Early degenerative disc disease is present without focal protrusion or neural impingement. C3-C4: Moderate to severe disc space narrowing and disc desiccation. Endplate sclerosis. Disc/osteophyte complex. Facet osteophyte arthropathy. No central canal stenosis. Mild bilateral foraminal stenosis C4-C5: Moderate disc space narrowing and disc desiccation with endplate sclerosis. Moderate disc/osteophyte complex and facet osteoarthropathy. There is moderate narrowing of the central canal down to 6.8 mm axial image #14. Moderate right and severe left foraminal stenosis C5-C6: Disc collapse with endplate sclerosis. Disc/osteophyte complex. minimal central canal stenosis measuring 9.1 mm. Mild bilateral foraminal stenosis C6-C7: Moderate to severe disc space narrowing and disc desiccation with endplate sclerosis. Moderate disc/osteophyte complex and facet osteoarthropathy. Central canal stenosis measuring 8 mm. Severe right and moderate left foraminal stenosis C7-T1:. Early degenerative disc disease is present without focal protrusion or neural impingement. MR/MR cervical spine wo con IMPRESSION: Degenerative changes resulting in central and foraminal stenosis at multiple levels detailed above Electronically authenticated by: TESSA ESTEVES Date: 04/18/2024 08:46
--- OUTSIDE RECORDS SUMMARY | 2024-04-18 07:41 | XMS_ITS | CCD ---
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 Role Phone HOY ., DR ALVARADO [...] ., DR ALVARADO Admitting Unavailable ZIEBER, DR HOSEA Oliva Consulting Unavailable HOY ., DR ALVARADO Admitting Unavailable HOY ., DR ALVARADO Primary Care Unavailable HOY ., DR ALVARADO Attending Unavailable HOY ., DR ALVARADO Consulting Unavailable HOY ., DR ALVARADO Admazucena Unavailable HOY ., DR ALVARADO Primary Care Unavailable HOY ., DR ALVARADO Consulting Unavailable HOY ., DR ALVARADO Attending Unavailable ZIEBER, DR HOSEA Oliva Consulting Unavailable HOY ., DR ALVARADO [...] DR ALVARADO Primary Care Unavailable ZIEBER, DR HOSEA Oliva Consulting Unavailable ALGHOTHANI, MOHAMAD Admitting Unavailable ALGHOTHANI, MOHAMAD Attending Unavailable ALGHOTHANI, MOHAMAD Consulting Unavailable HOY ., DR ALVARADO Primary Care Unavailable ALGHOTHANI, MOHAMAD Admitting Unavailable ALGHOTHANI, MOHAMAD Consulting Unavailable ALGHOTHANI, MOHAMAD Attending Unavailable HOY ., DR ALVARADO Admitting Unavailable HOY ., DR ALVARADO Consulting Unavailable HOY ., DR ALVARADO Primary Care Unavailable HOY ., DR ALVARADO Attending Unavailable ZIEBER, DR HOSEA Oliva Consulting Unavailable HOY ., DR ALVARADO [...] ., DR ALVARADO Consulting Unavailable ZIEBER, DR HOSEA Oliva Consulting Unavailable HOY ., DR ALVARADO Primary Care Unavailable SURINDER, ERNIE Admitting Unavailable SURINDER, ERNIE Consulting Unavailable SURINDER, ERNIE Attending Unavailable ALGHOTHANI, MOHAMAD Attending Unavailable ALGHOTHANI, MOHAMAD Attending Unavailable TEGAN PAIZ Attending Unavailable Riveray Miko FRANKLIN Primary Care Provider [phone] Issa VALE Attending Unavailable Issa VALE Attending Unavailable BROWNCIRORENNY A Attending Unavailable BROWN, RENNY A Attending Unavailable BROWN, RENNY A Attending Unavailable BROWN, RENNY A Attending Unavailable BROWN, RENNY A Attending Unavailable RAMBASEK, KEILA E Attending Unavailable BROWN, RENNY A Attending Unavailable RAMBASEK, KEILA E Attending Unavailable BROWN, RENNY A Attending Unavailable LOLIS PLEITEZ Attending Unavailable BROWN, RENNY A Attending Unavailable BROWN, RENNY A Attending Unavailable BROWN, RENNY A Attending Unavailable BROWN, RENNY A Attending Unavailable BROWN, RENNY A Attending Unavailable RAMBASEK, KEILA E Attending Unavailable Allergies Allergy Classification Reported Allergen(s) Allergy Type Date of Onset Reaction(s) Facility (2 sources) Amoxicillin; Translations: [AMOXICILLIN] Drug Allergy 3 [facility] (3 sources) Morphine; Translations: [MORPHINE] Drug Allergy 3 [facility] (20 sources) Amoxicillin Drug Allergy 3 Itching, Other, Unknown [facility] (20 sources) Mold Extract Drug Allergy 4 Unknown [facility] (20 sources) Morphine Drug Allergy 3 Itching, Other [facility] (1 source) Penicillin; Translations: [penicillin] Drug Allergy [facility] Repository (1 source) No Known Medication Allergies; Translations: [No Known Medication Allergies] Propensity to adverse reactions (disorder) [facility] Repository Medications Current Medications Medication Drug Class(es) Dates Sig (Normalized) Sig (Original) aspirin 81 mg delayed release oral tablet (20 sources) Platelet Aggregation Inhibitor, Nonsteroidal Anti-inflammatory Drug aspirin 81 MG EC tablet 1 (one) time each day at the same time. Active azelastine hydrochloride 0.137 mg/actuat metered dose nasal spray (20 sources) Histamine-1 Receptor Antagonist Start: 01-05-2023 azelastine (Astelin) 0.1 % nasal spray Indications: Vasomotor rhinitis Azelastine HCl Two sprays per nostril on a b.I.d. basis. 30 mL 11 01/05/2023 Active budesonide 0.5 mg/ml inhalation suspension (20 sources) Corticosteroid Start: 01-05-2023 End: 07-20-2024 take [...] / glycopyrrolate 0.009 mg/actuat metered dose inhaler (20 sources) Corticosteroid, beta2-Adrenergic Agonist take 1 puff(s) by inhalation once daily Budeson-Glycopyrr ol-Formoterol (Breztri Aerosphere) 160-9-4.8 MCG/ACT aerosol Inhale 1 puff Daily Active 168 hr cloNIDine 0.73036 mg/hr transdermal system (20 sources) Central alpha-2 Adrenergic Agonist take 1 tablet by mouth in the morning cloNIDine (Catapres) 0.1 MG tablet Take 0.1 mg by mouth in the morning and 0.1 mg before bedtime. Active cloNIDine (Catap res-TTS) 0.1 MG/24HR cloNIDine Active 1 ml denosumab 60 mg/ml prefilled syringe (20 sources) RANK Ligand Inhibitor denosumab (Prolia) 60 MG/ML solution prefilled syringe Inject 60 mg under the skin every 6 (six) months Active fenofibrate 160 mg oral tablet (20 sources) Peroxisome Proliferator Receptor alpha Agonist take 1 tablet by mouth in the morning fenofibrate (Triglide) 160 MG tablet Take 1 tablet by mouth in the morning. Active fluticasone propionate 0.05 mg/actuat metered dose nasal spray (20 sources) Corticosteroid fluticasone (Flonase) 50 MCG/ACT nasal spray 1 (one) time each day at the same time. Active furosemide 20 mg oral tablet (20 sources) Loop Diuretic take 1 tablet by mouth once daily furosemide (Lasix) 20 MG tablet Take 1 tablet every day by oral route for 90 days. Active ipratropium bromide 0.2 mg/ml inhalation solution (20 sources) Anticholinergic Start: 024 End: 025 ipratropium (Atrovent) 0.02 % nebulizer solution Indications: Asthma, allergic, mild intermittent, uncomplicated (CMS/HCC) Take 2.5 mL (0.5 mg) by nebulization 4 (four) times a day as needed for wheezing or shortness of breath 75 mL 11 10/12/2023 10/11/2024 Active lactulose 667 mg/ml oral solution (20 sources) Osmotic Laxative take 30 mL by mouth twice daily as needed lactulose (Chronulac) 10 GM/15ML solution 30ml Oral twice daily as needed for 90 days Active levothyroxine sodium 0.1 mg oral tablet (20 sources) l-Thyroxine take 1 tablet by mouth before mealtime levothyroxine (Synthroid, Levoxyl) 100 MCG tablet Take 100 mcg by mouth in the morning. Take before meals. Active liothyronine sodium 0.005 mg oral tablet (20 sources) l-Triiodothyronine take 1 tablet by mouth once daily liothyronine (Cytomel) 5 MCG tablet Take by mouth Daily Active omeprazole 40 mg delayed release oral capsule (20 sources) Proton Pump Inhibitor take 1 capsule by mouth once daily omeprazole (PriLOSEC) [address] capsule Take 1 capsule every day by oral route for 90 days. Active potassium chloride 10 meq extended release oral tablet (20 sources) take 1 tablet by mouth three times daily potassium chloride CR (Klor-Con) 10 MEQ ER tablet Take 1 tablet 3 times a day by oral route for 90 days. Active pravastatin sodium 10 mg oral tablet (20 sources) HMG-CoA Reductase Inhibitor take 1 tablet by mouth at bedtime pravastatin (Pravachol) 10 MG tablet Take 10 mg by mouth at bedtime. Active ubrogepant 100 mg oral tablet (20 sources) take 1 tablet by mouth every twenty-four hours as needed Ubrogepant 100 MG tablet Take 1 tablet by mouth Daily as needed (migraine) Active Ubrogepant (Ubre lvy) 50 MG tablet Ubrelvy Active Problems Active Problems Problem Classification Problem Date Documented Da te Episodic/Chronic Acute bronchitis (5 sources) Acute bronchitis, unspecified; Translations: [ACUTE BRONCHITIS UNSPECIFIED] Onset: 11-01-2021 Episodic Asthma (2 sources) IgE-mediated allergic asthma; Translations: [Mild intermittent asthma, uncomplicated] 04-07-2024 Chronic Disorders of lipid metabolism (5 sources) Hyperlipidemia, [...] mitral and tricuspid valves] Onset: 05-13-2022 Chronic Mycoses (3 sources) Onychomycosis; Translations: [Tinea unguium] 12-13-2023 Episodic Nonspecific chest pain (4 sources) Chest pain, unspecified; Translations: [CHEST PAIN UNSPECIFIED] Onset: 05-26-2022 Episodic Nutritional deficiencies (1 source) Vitamin D deficiency, unspecified; Translations: [VITAMIN D DEFICIENCY UNSPECIFIED] Onset: 11-15-2021 Chronic Osteoporosis (4 sources) Age-related osteoporosis without current pathological fracture; Translations: [AGE-REL OSTEOPOR W/O CURR PATH FX] Onset: 07-02-2022 Chronic Other connective tissue disease (11 sources) Pain in right foot; Translations: [Pain in right foot] 01-10-2024 Episodic Other connective tissue disease (11 sources) Pain in left foot; Translations: [Pain in left foot] 01-10-2024 Episodic Other connective tissue disease (3 sources) Pain of toes of bilateral feet; Translations: [Pain in right toe(s)] 12-13-2023 Episodic Other skin disorders (3 sources) Asteatosis cutis; Translations: [Xerosis cutis] 12-13-2023 Episodic Peripheral and visceral atherosclerosis (1 source) [...] Translations: [Valve Disorder] Onset: 05-14-2022 Viral infection (11 sources) Verruca plantaris; Translations: [Plantar wart] 01-10-2024 [...] Range Facility Outside Colonoscopyon 2023 Outside Colonoscopy [id number] 50 [id number]#[id number] 0TIFF Normal [facility] Reminderson 08-07-2023 Reminders - From: Kandi Cesar LPN To: N - Clinical; Sent: 08/07/2023 07:59:01 EDT Show up: 07/06/2033 07:59:00 EDT Subject: colonoscopy recall Due Date/Time: 08/04/2033 07:00:00 EDT Reminder/Recall If patient is in good health, she is due for screening colonoscopy 08/04/2033. Normal [facility] Consent for Procedure/Surger yon 06-10-2023 Consent for Procedure/Surgery [id number] 0TIFF Normal [facility] Ambulatory Visit Summaryon 0 06-09-2023 Ambulatory Visit Summary AKIRA BUITRAGO :1950 Visit Date:06/09/2023 Ambulatory Visit Instructions Your Diagnosis Family history of colon cancer Your Care Team Attending Physician - KAVIN FRANKLIN, Issa Oliva Primary Care Physician - [place] FRANKLIN, Miko This Is Your Medications List cetirizine (cetirizine [...] oral tablet) fluticasone nasal (Flonase 0.05 mg/inh Perry) furosemide (Lasix 20 mg Tab) lactulose (lactulose [...] Unchanged fluticasone nasal (Flonase 0.05 mg/ inh Perry) 2 Sprays Nasal Inhalation Every day Contact [...] for choosing us for your care. Normal [facility] Physician Referralon 024 Physician Referral [id number] 20 [id number] 0TIFF Normal [facility] Office Visiton 04-10-2023 Follow-up visit [id number] BuitragoShirley ly D 1950 F Date Provider Department Center 04/10/2023 3848-JUANITA JENKINS [facility] No family history on file Level of Service:44598 [place] OFFICE/OUTPATIENT ESTABLISHED LOW MDM 20 MIN Normal [facility] Office Visiton 11-25-2022 Follow-up visit [id number] BuitragoShirley ly D 1950 F Date Provider Department Center 11/25/2022 120-TEGAN PAIZ [facility] No family history on file Level of Service:90489 [place] OFFICE/OUTPATIENT ESTABLISHED MOD MDM 30-39 MIN Normal [facility] CALCIUMon 07-02-2022 Calcium [Mass/Vol] 9.8 mg/dL Normal 8[facility]10.1 [facility] Comment on above: Performed By: #### C A, CREA #### [facility] [address] [address] [address] Zuly Medina CREATININEon 07-02-2022 Creatinine [Mass/Vol] 1.41 mg/dL Critically high 0.55-1.02 [facility] Comment on above: Performed By: #### C A, CREA #### [facility] [address] [address] [address] Zuly Medina EGFR-AF BELIZEAN 44 mL/min/1.73m2 Critically low >=60 [facility] Comment on above: Performed By: #### C rFank, CREA #### [facility] [address] [address] [address] Zuly Medina EGFR-NON AF BELIZEAN 37 mL/min/1.73m2 Critically low >=60 [facility] Comment on above: Performed By: #### C Frank, CREA #### [facility] [address] [address] [address] Zuly Medina MRI LSPINE WO CONon [...] TESSA ESTEVES Date: 2022-06-02 07:58 Normal [facility] VC VENOUS REFLUX NOEL LMTon 0 05-30-2022 VC VENOUS REFLUX NOEL LMT Patient: AKIRA BUITRAGO Exam Date: 05/30/2022 : 1950 Gender:F Ordering : DR MIKO BURRIS . Admission #: [id number] Family : Order #: [id number] CLICK HERE TO VIEW EXAM RADIOLOGY REPORT [...] thrombus. Compressibility: Normal. Flow: Deep venous reflux. 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 Order #: [id number] CLICK HERE TO VIEW EXAM RADIOLOGY REPORT [...] Please see Dr. Garcia's report. Dictated by: Hosea Garcia M.D. on 05/27/2022 at 12:58 Approved by: Hosea Garcia M.D. on 05/27/2022 at 13:00 Normal [facility] XR LSPINE MIN 4 VIEWSon 05-07 [...] MRI for further evaluation. Electronically authenticated by: HOSEA GARCIA Date: 2022-05-23 14:32 Normal [facility] Covid-19 PCR (CVDTBH)on 05-07 SARS-CoV-2 (COVID-19) RNA MARY+probe Ql (Unsp spec) Not detected Normal NOT DETECTED [facility] Comment on above: Result Comment: This test is not yet approved or cleared by the [place] FDA. When there are no FDA-approved or cleared tests available, and other criteria are met, FDA can make tests available under an emergency access mechanism called an Emergency Use Authorization (EUA). The EUA for this test is supported by the [place] of Health and Human Service's (HHS's) declaration [...] SARS-CoV-2. Performed By: #### C VDTBH #### [facility] [address] [place] [address] Dr. Zuly Medina INFLUENZA A AND B AGon 05-22 [facility] SEE BELOW Normal [facility] Comment on above: Result Comment: Nega tive for Flu A protein angiten. Infection due to Flu A cannot be ruled out. Flu A angiten in the sample may be below the detection limit of the test. Performed By: #### I NFLUAB #### [facility] [address] [place] [address] Dr. [facility] Normal [facility] Comment on above: Result Comment: Nega tive for Flu B protein antigen. Infection due to Flu B cannot be ruled out. Flu B antigen in the sample may be below the detection limit of the test. Performed By: #### I NFLUAB #### [facility] [address] [place] [address] Dr. Zuly Medina INFLUENZA A AG Negative Normal NEGATIVE SEE COMMENT [facility] Comment on above: Performed By: #### I NFLUAB #### [facility] [address] [place] [address] Dr. Zuly Medina INFLUENZA B AG Negative Normal NEGATIVE SEE COMMENT [facility] Comment on above: Performed By: #### I NFLUAB #### [facility] [address] [place] [address] Dr. Zuly Medina ECHOCARDIO M/2D COMPLETEon 0 05-14-2022 ECHOCARDIO M/2D COMPLETE Patient: AKIRA BUITRAGO Exam Date: 05/14/2022 : 1950 Gender:F Ordering : BROWNNany ALISHA Admission #: [id number] Family : DR MIKO BURRIS . Order #: [id number] CLICK HERE TO VIEW EXAM ECHOCARDIOGRAM REPORT [...] Garcia M.D. on 05/15/2022 at 18:51 Normal [facility] Office Visiton 05-14-2022 Follow-up visit [id number] Shirley Buitrago 1950 F Date Provider Department Center 05/14/2022 3848-JUANITA JENKINS [facility] No family history on file Level of Service:41216 [place] OFFICE/OUTPATIENT ESTABLISHED MOD [facility] 30-39 MIN Reason for Visit and Comments: Hyperlipidemia [182] Valve Disorder [3372] Normal [facility] MG MAMM SCREEN 3D NOEL CADon 01-22-2022 MG MAMM SCREEN 3D NOEL CAD Patient: AKIRA BUITRAGODexter Exam Date: 01/22/2022 : 1950 Gender:F Ordering : DR MIKO BURRIS . Admission #: [id number] Family : Order #: [id number] CLICK HERE TO VIEW EXAM RADIOLOGY REPORT [...] lung cancer at age 59. LOCATION: [facility] BREAST COMPOSITION: Scattered areas fibroglandular density. [...] PALPABLE LUMP SHOULD BE BIOPSIED. Dictated by: Hosea Garcia M.D. on 01/22/2022 at 14:28 Approved by: Hosea Garcia M.D. on 01/22/2022 at 14:36 Normal [facility] CALCIUMon 12-31-2021 Calcium [Mass/Vol] 10.0 mg/dL Normal 8.5-10.1 [facility] Comment on above: Performed By: #### Oliverio SIMS [place] #### [facility] [address] [place] [address] Dr. Zuly Medina CREATININEon 12-31-2021 Creatinine [Mass/Vol] 1.33 mg/dL Critically high 0.55-1.02 [facility] Comment on above: Performed By: #### CHIDI MCDANIEL #### [facility] [address] [place] [address] Dr. Zuly Medina EGFR-AF BELIZEAN 48 mL/min/1.73m2 Critically low >=60 [facility] Comment on above: Performed By: #### CHIDI MCDANIEL #### [facility] [address] [place] [address] Dr. Zuly Medina EGFR-NON AF BELIZEAN 39 mL/min/1.73m2 Critically low >=60 [facility] Comment on above: Performed By: #### CHIDI MCDANIEL #### [facility] [address] [place] [address] Dr. Zuly Medina Covid-19 PCR (CVDTB)on 12-06 SARS-CoV-2 (COVID-19) RNA MARY+probe Ql (Unsp spec) Not detected Normal NOT DETECTED [facility] Comment on above: Result Comment: This test is not yet approved or cleared by the [place] FDA. When there are no FDA-approved or cleared tests available, and other criteria are met, FDA can make tests available under an emergency access mechanism called an Emergency Use Authorization (EUA). The EUA for this test is supported by the [employer] of Health and Human Service's (HHS's) declaration [...] SARS-CoV-2. Performed By: #### C VDTBH #### [facility] [address] [place] [address] Dr. Zuly Medina T4, T3U, FTI LABC[facility]Pon 11-15 Free Thyroxine Index 2.7 Normal 1.2-4.9 [facility] Comment on above: Performed By: #### C VDTBH #### [facility] [address] [place] [address] Dr. Zuly Medina T3 Uptake 32 % Normal 24-39 [facility] Comment on above: Performed By: #### C VDTBH #### [facility] [address] [place] [address] Dr. Zuly Medina T4 [Mass/Vol] 8.5 ug/dL Normal 4.5-12.0 [facility] Comment on above: Performed By: #### C VDTBH #### [facility] [address] [place] [address] Dr. Zuly Medina VIT D 25-OH LABCORPon 2021 Vitamin D, 25-Hydroxy 114.0 ng/mL Critically high 30.0-100.0 [facility] Comment on above: Result Comment: Jenny min D deficiency has been defined by the [place] of Medicine and an Endocrine Society practice guideline as a level of serum 25-OH vitamin D less than 20 ng/mL (1,2). The Endocrine Society went on to further define vitamin D insufficiency as a level between 21 and 29 ng/mL (2). 1. IOM ([place] of Medicine). 2010. Dietary reference intakes for calcium and D. Steve [place]: The National Academies Press. 2. Anel MF, Chandrika NC, Ronaldo MCCALLUM, et al. Evaluation, treatment, and prevention of vitamin D deficiency: an Endocrine Society clinical practice guideline. JCEM. 2010; 96(7):1911-30. Performed By: #### V ITADLC #### [facility] [address] [place] [address] Dr. Zuly Medina CBC AUTO DIFFon 11-14-2021 BASO # 0.0 103/ul Normal 0.0-0.1 [facility] Comment on above: Performed By: #### Oliverio SIMS, [place] #### [facility] [address] [place] [address] Dr. Zuly Medina Basophils/100 WBC (Bld) 0.4 % Normal 0.2-2.0 [facility] Comment on above: Performed By: #### Oliverio SIMS, CA #### [facility] [address] [place] [address] Dr. Zuly Medina EO # 0.3 103/ul Normal 0.0-0.7 [facility] Comment on above: Performed By: #### Oliverio SIMS, CA #### [facility] [address] [place] [address] Dr. Zuly Medina Eosinophils/100 WBC (Bld) 4.1 % Normal 0.9-7.0 [facility] Comment on above: Performed By: #### Oliverio SIMS, CA #### [facility] [address] [place] [address] Dr. Zuly Medina Erythrocyte distribution width (RBC) [Ratio] 14.1 % Normal 11.0-15.0 [facility] Comment on above: Performed By: #### Oliverio SIMS, CA #### [facility] [address] [place] [address] Dr. Zuly Medina Hematocrit (Bld) [Volume fraction] 36.0 % Normal 36.0-48.0 [facility] Comment on above: Performed By: #### Oliverio SIMS, CA #### [facility] [address] [place] [address] Dr. Zuly Medina Hemoglobin (Bld) [Mass/Vol] 11.6 g/dL Critically low 12.0-16.0 [facility] Comment on above: Performed By: #### CHIDI MCDANIEL #### [facility] [address] [place] [address] Dr. Zuly Medina IG # 0.01 10e3/ul Normal 0.00-0.03 [facility] Comment on above: Performed By: #### CHIDI MCDANIEL #### [facility] [address] [place] [address] Dr. Zuly Medina IG % 0.1 % Normal 0.0-0.5 [facility] Comment on above: Performed By: #### CHIDI MCDANIEL #### [facility] [address] [place] [address] Dr. Zuly Medina LYMPH # 1.3 103/ul Normal 1.2-3.8 [facility] Comment on above: Performed By: #### CHIDI MCDANIEL #### [facility] [address] [place] [address] Dr. Zuly Medina Lymphocytes/100 WBC (Bld) 19.3 % Critically low 20.5-60.0 [facility] Comment on above: Performed By: #### CHIDI MCDANIEL #### [facility] [address] [place] [address] Dr. Zuly Medina MANUAL DIFF REQ NO Normal [facility] Comment on above: Performed By: #### CHIDI MCDANIEL #### [facility] [address] [place] [address] Dr. Zuly Medina MCH (RBC) [Entitic mass] 31.4 pg Normal 26.7-34.0 [facility] Comment on above: Performed By: #### CHIDI MCDANIEL #### [facility] [address] [place] [address] Dr. Zuly Medina MCHC (RBC) [Mass/Vol] 32.2 g/dL Normal 29.9-35.2 [facility] Comment on above: Performed By: #### CHIDI MCDANIEL #### [facility] [address] [place], [place] [address] Dr. Zuly Medina MCV (RBC) [Entitic vol] 97.6 fL Normal 81.0-99.0 [facility] Comment on above: Performed By: #### CHIDI MCDANIEL #### [facility] [address] [place] [address] Dr. Zuly Medina MONO # 0.8 103/ul Normal 0.3-0.8 [facility] Comment on above: Performed By: #### CHIDI MCDANIEL #### [facility] [address] [place] [address] Dr. Zuly Medina Monocytes/100 WBC (Bld) 11.8 % Normal 1.7-12.0 [facility] Comment on above: Performed By: #### CHIDI MCDANIEL #### [facility] [address] [place] [address] Dr. Zuly Medina NEUT # 4.4 103/ul Normal 1.4-6.5 [facility] Comment on above: Performed By: #### CHIDI MCDANIEL #### [facility] [address] [place] [address] Dr. Zuly Medina Neutrophils/100 WBC (Bld) 64.3 % Normal 43.0-75.0 [facility] Comment on above: Performed By: #### CHIDI MCDANIEL #### [facility] [address] [place] [address] Dr. Zuly Medina Platelet mean volume (Bld) [Entitic vol] 10.1 fL Normal 9.5-13.5 [facility] Comment on above: Performed By: #### CHIDI MCDANIEL #### [facility] [address] [place] [address] Dr. Zuly Medina PLT 311 103/ul Normal 150-450 [facility] Comment on above: Performed By: #### CHIDI MCDANIEL #### [facility] [address] [place] [address] Dr. Zuly Medina RBC 3.69 106/ul Critically low 4.20-5.40 [facility] Comment on above: Performed By: #### Oliverio SIMSCHIDI #### [facility] [address] [address] [address] Zuly Medina WBC 6.9 103/ul Normal 4.0-11.0 [facility] Comment on above: Performed By: #### C CHIDI SIMS #### [facility] [address] [address] [address] Zuly Medina GLYCOHEMOGLOBIN A1Con 2021 ADA RECOMMENDATION SEE BELOW Normal [facility] Comment on above: Result Comment: ADA RECOMMENDED LIMIT 4.0 - 6.0 ADA THERAPEUTIC TARGET < 7.0 ACTION SUGGESTED > 7.0 Performed By: #### A 1C #### [facility] [address] [address] [address] Zuly Medina Glucose [Mass/Vol] 103 mg/dL Normal [facility] Comment on above: Performed By: #### A 1C #### [facility] [address] [place] [address] Dr. Zuly Medina HbA1c (Bld) [Mass fraction] 5.2 % Normal 4.5-6.2 [facility] Comment on above: Performed By: #### A 1C #### [facility] [address] [address] [address] Zuly Medina IRONon 11-14-2021 Iron [Mass/Vol] 60.0 ug/dL Normal 50.0-170.0 [facility] Comment on above: Performed By: #### C VDTB #### [facility] [address] [place] [address] Dr. Zuly Medina LIPID PROFILEon 11-14-2021 CHOL-HDL RATIO NORM SEE BELOW Normal [facility] Comment on above: Result Comment: 3.3 - 4.4 LOW RISK 4.4 - 7.1 AVERAGE RISK 7.1 - 11.0 MODERATE RISK >11.0 HIGH RISK Performed By: #### CHIDI MCDANIEL #### [facility] [address] [place] [address] Dr. Zuly Medina Cholesterol [Mass/Vol] 145 mg/dL Normal <=200 [facility] Comment on above: Performed By: #### CHIDI MCDANIEL #### [facility] [address] [address] [address] Zuly Medina Cholesterol in HDL [Mass/Vol] 65 mg/dL Critically high 40-60 [facility] Comment on above: Performed By: #### Oliverio SIMS [place] #### [facility] [address] [address] [address] Zuly Medina Cholesterol in LDL [Mass/Vol] 72.2 mg/dL Normal [facility] Comment on above: Performed By: #### Oliverio SIMS [place] #### [facility] [address] [address] [address] Zuly Medina Cholesterol.total/Ch olesterol in HDL [Mass ratio] 2.2 {ratio} Normal [facility] Comment on above: Performed By: #### Oliverio SIMS [place] #### [facility] [address] [place] [address] Dr. Zuly Medina HDL NORMAL > or = 60 mg/dl - LO W CARDIOVASCULAR RISK <40 mg/dl - HIGH CARDIOVASCULAR RISK Normal [facility] Comment on above: Performed By: #### CHIDI MCDANIEL #### [facility] [address] [address] [address] Zuly Medina LDL CALC NORMAL SEE BELOW Normal [facility] Comment on above: Result Comment: <100 mg/dl OPTIMAL 100 - 129 mg/dl NEAR OR ABOVE OPTIMAL 130 - 159 mg/dl BORDERLINE HIGH 160 - 189 mg/dl HIGH >190 mg/dl VERY HIGH Performed By: #### CHIDI MCDANIEL #### [facility] [address] [address] [address] Zuly Medina Triglyceride [Mass/Vol] 39 mg/dL Normal <=150 [facility] Comment on above: Performed By: #### CHIDI MCDANIEL #### [facility] [address] [place] [address] Dr. Zuly Medina VLDL CALC 7.8 mg/dL Normal [facility] Comment on above: Performed By: #### CHIDI MCDANIEL #### [facility] [address] [address] [address] Zuly Medina PROF 14(COMP METB)on 022 Albumin [Mass/Vol] 3.8 g/dL Normal 3.4-5.0 [facility] Comment on above: Performed By: #### CHIDI MCDANIEL #### [facility] [address] [place] [address] Dr. Zuly Medina Albumin/Globulin [Mass ratio] 1.4 {ratio} Normal [facility] Comment on above: Performed By: #### CHIDI MCDANIEL #### [facility] [address] [address] [address] Zuly Medina ALP [Catalytic activity/Vol] 41 U/L Critically low 46-116 [facility] Comment on above: Performed By: #### CHIDI MCDANIEL #### [facility] [address] [place] [address] Dr. Zuly Medina ALT [Catalytic activity/Vol] 20 U/L Normal 14-59 [facility] Comment on above: Performed By: #### CHIDI MCDANIEL #### [facility] [address] [place] [address] Dr. Zuly Medina Anion gap [Moles/Vol] 8.2 mmol/L Normal [facility] Comment on above: Performed By: #### CHIDI MCDANIEL #### [facility] [address] [place] [address] Dr. Zuly Medina AST [Catalytic activity/Vol] 25 U/L Normal 15-37 [facility] Comment on above: Performed By: #### CHIDI MCDANIEL #### [facility] [address] [address] [address] Zuly Medina Bilirubin [Mass/Vol] 0.4 mg/dL Normal 0.2-1.0 [facility] Comment on above: Performed By: #### CHIDI MCDANIEL #### [facility] [address] [address] [address] Zuly Medina Calcium [Mass/Vol] 10.1 mg/dL Normal 8.5-10.1 [facility] Comment on above: Performed By: #### CHIDI MCDANIEL #### [facility] [address] [address] [address] Zuly Medina Chloride [Moles/Vol] 104 mmol/L Normal 98-107 [facility] Comment on above: Performed By: #### Oliverio SIMS, [place] #### [facility] [address] [place] [address] Dr. Zuly Medina CO2 [Moles/Vol] 31.6 mmol/L Normal 21.0-32.0 [facility] Comment on above: Performed By: #### Oliverio SIMS, [place] #### [facility] [address] [place] [address] Dr. Zuly Medina Creatinine [Mass/Vol] 1.44 mg/dL Critically high 0.55-1.02 [facility] Comment on above: Performed By: #### Oliverio SIMS [place] #### [facility] [address] [place] [address] Dr. Zuly Medina EGFR-AF BELIZEAN 43 mL/min/1.73m2 Critically low >=60 [facility] Comment on above: Performed By: #### Oliverio SIMS, [place] #### [facility] [address] [place] [address] Dr. Zuly Medina EGFR-NON AF BELIZEAN 36 mL/min/1.73m2 Critically low >=60 [facility] Comment on above: Performed By: #### Oliverio SIMS [place] #### [facility] [address] [place] [address] Dr. Zuly Medina Globulin (S) [Mass/Vol] 2.8 g/dL Normal [facility] Comment on above: Performed By: #### Oliverio SIMS, [place] #### [facility] [address] [place] [address] Dr. Zuly Medina Glucose [Mass/Vol] 100 mg/dL Normal 74-106 [facility] Comment on above: Performed By: #### Oliverio SIMS, [place] #### [facility] [address] [place] [address] Dr. Zuly Medina Potassium [Moles/Vol] 3.8 mmol/L Normal 3.5-5.1 [facility] Comment on above: Performed By: #### Oliverio SIMS, [place] #### [facility] [address] [address] [address] Zuly Medina Protein [Mass/Vol] 6.6 g/dL Normal 6.4-8.2 [facility] Comment on above: Performed By: #### C BETH[place], [place] #### [facility] [address] [address] [address] Zuly Medina Sodium [Moles/Vol] 140 mmol/L Normal 136-145 [facility] Comment on above: Performed By: #### Oliverio SIMS, [place] #### [facility] [address] [place] [address] Dr. Zuly Medina Urea nitrogen [Mass/Vol] 28.0 mg/dL Critically high 7.0-18.0 [facility] Comment on above: Performed By: #### Oliverio SIMS, [place] #### [facility] [address] [place] [address] Dr. Zuly Medina Urea nitrogen/Creatinine [Mass ratio] 19.4 mg/mg Normal [facility] Comment on above: Performed By: #### Oliverio SIMS, [place] #### [facility] [address] [place] [address] Dr. Zuly Medina TSHon 11-14-2021 TSH 1.676 uIU/mL Normal 0.358-3.740 [facility] Comment on above: Performed By: #### Oliverio SIMS, [place] #### [facility] [address] [place] [address] Dr. Zuly Medina Cov[facility]-19 [facility]on 10-05 SARS-CoV-2 (COVID-19) RNA MARY+probe Ql (Unsp spec) Not detected Normal NOT DETECTED [facility] Comment on above: Result Comment: When [...] for this test is supported by the [place] of Health and Human Service's declaration that [...] used). Performed By: #### C VDTBH #### [facility] [address] [place] [address] Dr. Zuly Medina CREATININEon 09-18-2021 Creatinine [Mass/Vol] 1.33 mg/dL Critically high 0.55-1.02 [facility] Comment on above: Performed By: #### C BETH[place], [place] #### [facility] [address] [place] [address] Dr. Zuly Medina EGFR-AF BELIZEAN 48 mL/min/1.73m2 Critically low >=60 [facility] Comment on above: Performed By: #### C [place], [place] #### [facility] [address] [place] [address] Dr. Zuly Medina EGFR-NON AF BELIZEAN 39 mL/min/1.73m2 Critically low >=60 [facility] Comment on above: Performed By: #### C [place], [place] #### [facility] [address] [place] [address] Dr. Zuly Medina MRI BRAIN WO W [...] account for patient's symptoms. Electronically authenticated by: HOSEA GARCIA Date: 2021-09-18 16:23 Normal [facility] Covid-19 PCR ([facility])on 08-05 SARS-CoV-2 (COVID-19) RNA MARY+probe Ql (Unsp spec) Not detected Normal NOT DETECTED [facility] Comment on above: Result Comment: This test is not yet approved or cleared by the [place] FDA. When there are no FDA-approved or cleared tests available, and other criteria are met, FDA can make tests available under an emergency access mechanism called an Emergency Use Authorization (EUA). The EUA for this test is supported by the [employer] of Health and Human Service's (HHS's) declaration [...] consistent with SARS-CoV-2. Performed By: #### [facility] #### [facility] [address] [place] [address] Dr. Zuly Medina SYMPTOMATIC COVID-19 ANTIGEN on 08-23-2021 EUA Statement SEE BELOW Normal [facility] Comment on above: Result Comment: This [...] sooner. Performed By: #### C VDTB #### [facility] [address] [place] [address] Dr. Zuly Medina SARS-CoV-2 (COVID-19) RNA MARY+probe Ql (Unsp spec) Negative Normal NEGATIVE [facility] Comment on above: Performed By: #### C VDTB #### [facility] [address] [place] [address] Dr. Zuly Medina Q - Diptheria/Tetanus Abon 0 08-09-2021 DIPHTHERIA ANTITOXOID 0.25 IU/mL Normal [facility] Comment on above: Order Comment: [facility] Testing performed at: [facility], [facility], [address] [facility] , [place], [place], , Pay Station Department Manager: Sahil Dyson M.D.,PhD [facility] Date/Time: [facility] [...] analytical performance characteristics have been determined by [facility] [place], [place]. It has not been cleared or approved by the U.S. Food and Drug Administration. This assay has been validated pursuant to the CLIA regulations and is used for clinical purposes. Performed By: #### 2 4729W, 89911T, 68031, 43290D, 82467P, 46894W #### [facility] [address] [place] [address] TETANUS ANTITOXOID 4.67 IU/mL Normal [facility] Comment on above: Order Comment: [facility] performed at: [facility], [address] , [place], [place], , Pay Station Department Manager: Sahil Dyson M.D.,PhD [facility] Date/Time: [facility] [...] analytical performance characteristics have been determined by [facility] [place], [place]. It has not been cleared or approved by the [place].S. Food and Drug Administration. This assay has been validated pursuant to the CLIA regulations and is used for clinical purposes. Performed By: #### 2 4729W, 47157H, 62632, 43085B, 90895U, 62213C #### [facility] [address] [place] [address] Q - IGA,SERUMon 08-09-2021 IMMUNOGLOBULIN A 125 mg/dL Normal 70-320 [facility] Comment on above: Order Comment: [facility] performed at: [facility], [facility], [address] [facility], [address] [place] [address], [address], Pay Station Department Manager: Thony Haley MD [facility] Date/Time: [facility] Results Received Date/Time: [facility] Reported Date/Time: Performed By: #### 2 4729W, 11370K, 76536, 82548F, 29595A, 78739R #### [facility] [address] [place] [address] Q - IGE,SERUMon 08-09-2021 IMMUNOGLOBULIN E 44 kU/L Normal [facility] Specialist Comment on above: Order Comment: [facility] performed at: [employer], [facility], [address] , [address] [place] [address], [address] [place] [address], Pay Station Department Manager: Thony Haley MD [facility] Date/Time: [facility] Results Received Date/Time: [facility] Reported Date/Time: Performed By: #### 2 4729W, 63681O, 05513, 91715F, 74901S, 02800C #### [facility] [address] [place] [address] Q - IGG,SERUMon 08-09-2021 IMMUNOGLOBULIN G 895 mg/dL Normal 600-1540 [facility] Comment on above: Order Comment: [facility] performed at: [employer], [facility], [address] , [address] [place] [address], [address] [place] [address], Pay Station Department Manager: Thony Haley MD [facility] Date/Time: [facility] Results Received Date/Time: [facility] Reported Date/Time: Performed By: #### 2 4729W, 32121D, 31334, 08062J, 50837E, 76754H #### [facility] [address] [place] [address] Q - IGM,SERUMon 08-09-2021 IMMUNOGLOBULIN M 158 mg/dL Normal 50-300 [facility] Comment on above: Order Comment: [facility] performed at: [facility], [address], [address] [place] [address], [address] [place] [address], Pay Station Department Manager: Thony Haley MD [facility] Date/Time: [facility] Results Received Date/Time: [facility] Reported Date/Time: Performed By: #### 2 4729W, 04355M, 59023, 64625E, 96353J, 50077Z #### [facility] [address] [place] [address] Q - Strep pneumo Ab 23 serot ypeson 08-09-2021 SEROTYPE 1 (1) 9.5 Normal [facility] Specialist Comment on above: Order Comment: [facility] performed at: [facility], [facility] [facility],, [address] [place], [place], , Pay Station Department Manager: Osiris Galdamez MD,PhD,BHANU [facility] Date/Time: [facility] Results Received Date/Time: [facility] Reported Date/Time: Performed By: #### 2 4729W, 04949G, 06325, 76359D, 50594K, 37594Y #### [facility] [address] [place] [address] SEROTYPE 12 (12F) 1.0 Normal [facility] Comment on above: Order Comment: [facility] performed at: [facility], [employer] [facility],, [facility] [place], [place], , Pay Station Department Manager: Osiris Galdamez MD,PhD,BHANU [facility] Date/Time: [facility] Results Received Date/Time: [facility] Reported Date/Time: Performed By: #### 2 4729W, 36545E, 89264, 64724K, 24055C, 77007A #### [facility] [address] [place] [address] SEROTYPE 14 (14) 3.3 [facility] Comment on above: Order Comment: [facility] performed at: [facility], [employer] [facility],, [address] [place], [address], Pay Station Department Manager: Osiris Galdamez MD,PhD,BHANU [facility] Date/Time: [facility] Results Received Date/Time: [facility] Reported Date/Time: Performed By: #### 2 4729W, 80575V, 97556, 67264L, 22104T, 51542B #### [facility] Default [address] [place] [address] SEROTYPE 17 (17F) 1.2 Normal [facility] Comment on above: Order Comment: [facility] performed at: [facility], [employer] [facility] [facility],, [address] [place] [address], , Pay Station Department Manager: Osiris Galdamez MD,PhD,BHANU [facility] Date/Time: [facility] Results Received Date/Time: [facility] Reported Date/Time: Performed By: #### 2 4729W, 21944Z, 71097, 03099H, 93147G, 43563I #### [facility] [address] [place] [address] SEROTYPE 19 (19F) 2.8 Normal [facility] Comment on above: Order Comment: [facility] performed at: [facility], [employer] [facility] [facility],, [address] [place] [address], , Pay Station Department Manager: Osiris Galdamez MD,PhD,BHANU [facility] Date/Time: [facility] Results Received Date/Time: [facility] Reported Date/Time: Performed By: #### 2 4729W, 11533Y, 40647, 00900Z, 12971D, 23516Z #### [facility] Default [address] [place] [address] SEROTYPE 2 (2) 7.2 Normal [facility] Comment on above: Order Comment: [facility] performed at: [facility], [employer] [facility] [facility],, [address] [place] [address], , Pay Station Department Manager: Osiris Galdamez MD,PhD,BHANU [facility] Date/Time: [facility] Results Received Date/Time: [facility] Reported Date/Time: Performed By: #### 2 4729W, 03129Q, 43357, 17976T, 03182B, 94486U #### [facility] [address] [place] [address] SEROTYPE 20 (20) 3.[address] [facility] Comment on above: Order Comment: [facility] performed at: [facility], [facility],, [address] [place] [address], , Pay Station Department Manager: Osiris Galdamez MD,PhD,BHANU [facility] Date/Time: [facility] Results Received Date/Time: [facility] Reported Date/Time: Performed By: #### 2 4729W, 69035L, 86489, 08357P, 49667L, 92482O #### [facility] Default [address] [place] [address] SEROTYPE 22 (22F) 5.9 [facility] Comment on above: Order Comment: [facility] performed at: [facility], [employer] [facility],, [address] [place] [address], , Pay Station Department Manager: Osiris Galdamez MD,PhD,BHANU [facility] Date/Time: [facility] Results Received Date/Time: [facility] Reported Date/Time: Performed By: #### 2 4729W, 44613B, 00804, 58693N, 43698S, 72194B #### [facility] Default [address] [place] [address] SEROTYPE 23 (23F) 5.2 [facility] Comment on above: Order Comment: [facility] performed at: [facility], [employer] [facility],, [address] [place] [address], , Pay Station Department Manager: Osiris Galdamez MD,PhD,BHANU [facility] Date/Time: [facility] Results Received Date/Time: [facility] Reported Date/Time: Performed By: #### 2 4729W, 56579R, 40046, 82070A, 09753F, 06652K #### [facility] Default [address] [place] [address] SEROTYPE 26 (6B) 18.8 Normal [facility] Comment on above: Order Comment: [facility] performed at: [employer], [employer] [facility] [facility],, [address] [place] [address], , Pay Station Department Manager: Osiris Galdamez MD,PhD,BHANU [facility] Date/Time: [facility] Results Received Date/Time: [facility] Reported Date/Time: Performed By: #### 2 4729W, 52162K, 14968, 18555V, 72506N, 61332R #### [facility] Default [address] [place] [address] SEROTYPE 3 (3) 1.3 Normal [facility] Comment on above: Order Comment: [facility] performed at: [employer], [employer] [facility] [facility],, [address] [place] [address], , Pay Station Department Manager: Osiris Galdamez MD,PhD,BHANU Quest Collection Date/Time: [facility] Results Received Date/Time: [facility] Reported Date/Time: Performed By: #### 2 4729W, 99373L, 74071, 42677E, 32984Z, 77964Q #### [facility] Default [address] [place] [address] SEROTYPE 34 (10A) 0.9 Normal [facility] Specialist Comment on above: Order Comment: Quest Testing performed at: EZ, [employer] [facility],, [address] [place] [address], , Pay Station Department Manager: Osiris Galdamez MD,PhD,BHANU Quest Collection Date/Time: Quest Results Received Date/Time: Quest Reported Date/Time: Performed By: #### 2 4729W, 28978W, 35334, 38257V, 82287G, 07723P #### [facility] Default [address] [place] [address] SEROTYPE 4 (4) <0.3 Normal [facility] Bass Fisher Comment on above: Order Comment: Quest Testing performed at: EZ, [employer] [facility],, [address] [place] [address], , Pay Station Department Manager: Osiris Galdamez MD,PhD,BHANU Quest Collection Date/Time: Quest Results Received Date/Time: Quest Reported Date/Time: Performed By: #### 2 4729W, 86533S, 40017, 67750Q, 83586O, 87675L #### [facility] Default [address] [place] [address] SEROTYPE 43 (11A) 1.1 Normal [facility] Comment on above: Order Comment: Quest Testing performed at: EZ, [employer] [facility],, [address] [place], [place], , Pay Station Department Manager: Osiris Galdamez MD,PhD,BHANU Quest Collection Date/Time: Quest Results Received Date/Time: Quest Reported Date/Time: Performed By: #### 2 4729W, 09934N, 44259, 94245T, 85169E, 13175Q #### [facility] Default [address] [place] [address] SEROTYPE 5 (5) 2.3 Normal [facility] Specialist Comment on above: Order Comment: Quest Testing performed at: EZ, [employer] [facility],, [address] [place], [place], , Pay Station Department Manager: Osiris Galdamez MD,PhD,BHANU Quest Collection Date/Time: Quest Results Received Date/Time: Quest Reported Date/Time: Performed By: #### 2 4729W, 91562F, 73422, 64598N, 08641H, 10114Y #### [facility] [address] [place] [address] SEROTYPE 51 (7F) 8.[address] [facility] Comment on above: Order Comment: Quest Testing performed at: EZ, [facility],, [address] [place], [place], , Pay Station Department Manager: Osiris Galdamez MD,PhD,BHANU Quest Collection Date/Time: Quest Results Received Date/Time: Quest Reported Date/Time: Performed By: #### 2 4729W, 52290U, 96304, 88188D, 25366G, 81835O #### [facility] [address] [place] [address] SEROTYPE 54 (15B) 2.3 Normal [facility] Comment on above: Order Comment: Quest Testing performed at: E[facility], [facility],, [address] [place], [place], , Pay Station Department Manager: Osiris Galdamez MD,PhD,BHANU Quest Collection Date/Time: Quest Results Received Date/Time: Quest Reported Date/Time: [id number] Performed By: #### 2 4729W, 78735C, 33861, 18195P, 34227F, 67369L #### [facility] Default [address] [place] [address] SEROTYPE 56 (18C) 18.7 Normal [facility] Comment on above: Order Comment: Quest Testing performed at: EZ, [employer] [facility],, [address] [place], [place], , Pay Station Department Manager: Osiris Galdamez MD,PhD,BHANU Quest Collection Date/Time: Quest Results Received Date/Time: Quest Reported Date/Time: Performed By: #### 2 4729W, 99602U, 80604, 20903T, 46624Z, 45807T #### [facility] Default [address] [place] [address] SEROTYPE 57 (19A) 15.6 Normal [facility] Comment on above: Order Comment: Quest Testing performed at: EZ, [employer] [facility],, [facility] [place], , Pay Station Department Manager: Osiris Galdamez MD,PhD,BHANU Quest Collection Date/Time: Quest Results Received Date/Time: Quest Reported Date/Time: Performed By: #### 2 4729W, 21123O, 82511, 48177R, 98667O, 87613I #### [facility] Default [address] [place] [address] SEROTYPE 68 (9V) 2.[address] [facility] Comment on above: Order Comment: Quest Testing performed at: EZ, [facility] [facility],, [address] [place], [place], , Pay Station Department Manager: Osiris Galdamez MD,PhD,BHANU Quest Collection Date/Time: Quest Results Received Date/Time: [id number] Quest Reported Date/Time: Performed By: #### 2 4729W, 37348H, 53524, 48881F, 25852L, 81459B #### [facility] Default [address] [place] [address] SEROTYPE 70 (33F) 28.9 Normal [place] Bass Fisher Comment on above: Order Comment: Quest Testing performed at: , [facility],, [address] [place], [address], Pay Station Department Manager: Osiris Galdamez MD,PhD,BHANU Quest Collection Date/Time: Quest [...] serotype-specific titers may have less robust responses. [employer] uses a multi-analyte immunodetection (MAID) method. The method employs the [employer] flow cytometric system which measures multiple analytes [...] analytical performance characteristics have been determined by [employer]. It has not been cleared or approved by FDA. This assay has been validated pursuant to the CLIA regulations and used for clinical purposes. For additional information, please refer to http://education.[employer]/faq/IRZ380 (This link is being provided for informational/ educational purposes only.) Performed By: #### 2 4729W, 08318E, 04248, 06801L, 61815C, 39177A #### [facility] Default [address] [place] [address] SEROTYPE 8 (8) 14.6 Normal [facility] Specialist Comment on above: Order Comment: Quest Testing performed at: [employer] [facility],, [address] [place] [address], , Pay Station Department Manager: Osiris Galdamez MD,PhD,BHANU Quest Collection Date/Time: [facility] Results Received Date/Time: Quest Reported Date/Time: Performed By: #### 2 4729W, 03766C, 59923, 41581K, 31051P, 83981W #### [facility] Default [address] [place] [address] SEROTYPE 9 (9N) 1.0 Normal [facility] Specialist Comment on above: Order Comment: Quest Testing performed at: [employer] [facility],, [address] [place] [address], , Pay Station Department Manager: Osiris Galdamez MD,PhD,BHANU Quest Collection Date/Time: Quest Results Received Date/Time: Quest Reported Date/Time: Performed By: #### 2 4729W, 81053X, 10295, 11090T, 94651Q, 20879B #### [facility] Default [address] [place] [address] CT SINUSES WO CONon 08-06-[address] SINUSES WO CON EXAMINATION: CT SINUSES [...] acute or chronic sinusitis. Electronically authenticated by: HOSEA GARCIA Date: 2021-08-05 08:48 Normal [facility] MG MAMM DX 3D LT CADon 08-05 MG MAMM DX 3D LT CAD Patient: AKIRA BUITRAGO Exam Date: 08/05/2021 : 1950 Gender:F Ordering : DR MIKO BURRIS . Admission #: [id number] Family : Order #: [id number] CLICK HERE TO VIEW EXAM RADIOLOGY REPORT [...] lung cancer at age 59. LOCATION: [facility] BREAST COMPOSITION: Scattered areas fibroglandular density. [...] PALPABLE LUMP SHOULD BE BIOPSIED. Dictated by: Hosea Garcia M.D. on 08/05/2021 at 09:23 Approved by: Hosea Garcia M.D. on 08/05/2021 at 09:25 Normal [facility] US BREAST LEFT LIMITEDon US BREAST LEFT LIMITED Patient: AKIRA BUITRAGO Exam Date: 08/05/2021 : 1950 Gender:F Ordering : DR MIKO BURRIS . Admission #: [id number] Family : Order #: [id number] CLICK HERE TO VIEW EXAM RADIOLOGY REPORT [...] lung cancer at age 59. LOCATION: [facility] BREAST COMPOSITION: Scattered areas fibroglandular density. [...] PALPABLE LUMP SHOULD BE BIOPSIED. Dictated by: Hosea Garcia M.D. on 08/05/2021 at 09:23 Approved by: Hosea Garcia M.D. on 08/05/2021 at 09:25 [facility] Vital Signs Date Time Vital Sign Value Performing Clinician Davon longoria 02-11-2024 08:33-0500 Body height 160 cm Renny Orlando DPM Work Phone: [facility] 02-11-2024 08:33-0500 Body mass index (BMI) [Ratio] 22.85 kg/m2 Renny Orlando DPM Work Phone: [facility] 02-11-2024 08:33-0500 Body weight 58.51 kg Renny Brown DPM Work Phone: [facility] 02-11-2024 08:33-0500 Diastolic blood pressure 80 mm[Hg] Renny Brown DPM Work Phone: [facility] 02-11-2024 08:33-0500 Heart rate 81 /min Renny Brown DPM Work Phone: [facility] 02-11-2024 08:33-0500 Systolic blood pressure 126 mm[Hg] Renny Orlando DPM Work Phone: [facility] 01-28-2024 08:34-0400 Body height 160 cm Renny Brown DPM Work Phone: [facility] 01-28-2024 08:34-0400 Body mass index (BMI) [Ratio] 22.85 kg/m2 Renny Brown DPM Work Phone: [facility] 01-28-2024 08:34-0400 Body weight 58.51 kg Renny Orlando DPM Work Phone: [facility] 01-28-2024 08:34-0400 Diastolic blood pressure 80 mm[Hg] Renny Regino DPM Work Phone: [facility] 01-28-2024 08:34-0400 Heart rate 81 /min Renny Orlando DPM Work Phone: [facility] 01-28-2024 08:34-0400 Systolic blood pressure 128 mm[Hg] Renny Brown DPM Work Phone: [facility] 01-14-2024 08:38-0400 Body height 160 cm Rennyasad Orlando DPM Work Phone: [facility] 01-14-2024 08:38-0400 Body mass index (BMI) [Ratio] 22.85 kg/m2 Renny Orlando DPM Work Phone: [facility] 01-14-2024 08:38-0400 Body weight 58.51 kg Renny Orlando DPM Work Phone: [facility] 01-14-2024 08:38-0400 Respiratory rate 18 /min Renny Regino DPM Work Phone: [facility] 12-31-2023 09:01-0400 Body height 160 cm Renny Orlando DPM Work Phone: [facility] 12-31-2023 09:01-0400 Body mass index (BMI) [Ratio] 22.85 kg/m2 Renny Brown DPM Work Phone: [facility] 12-31-2023 09:01-0400 Body weight 58.51 kg Renny Brown DPM Work Phone: [facility] 12-31-2023 09:01-0400 Diastolic blood pressure 75 mm[Hg] Renny Orlando DPM Work Phone: [facility] 12-31-2023 09:01-0400 Heart rate 75 /min Renny Orlando DPM Work Phone: [facility] 12-31-2023 09:01-0400 Respiratory rate 18 /min Renny Regino DPM Work Phone: [facility] 12-31-2023 09:01-0400 Systolic blood pressure 126 mm[Hg] Renny Orlando DPM Work Phone: [facility] 12-17-2023 08:41-0400 Body height 160 cm Renny Orlando DPM Work Phone: [facility] 12-17-2023 08:41-0400 Body mass index (BMI) [Ratio] 22.85 kg/m2 Renny Orlando DPM Work Phone: [facility] 12-17-2023 08:41-0400 Body weight 58.51 kg Renny Brown DPM Work Phone: [facility] 12-17-2023 08:41-0400 Diastolic blood pressure 74 mm[Hg] Renny Orlando DPM Work Phone: [facility] 12-17-2023 08:41-0400 Heart rate 82 /min Renny Orlando DPM Work Phone: [facility] 12-17-2023 08:41-0400 Systolic blood pressure 125 mm[Hg] Renny Orlando DPM Work Phone: [facility] 12-15-2023 08:08-0400 Body height 160 cm Lolis Pleitez PUBLIC HEALTH DOCTOR Work Phone: [facility] 12-15-2023 08:08-0400 Body mass index (BMI) [Ratio] 22.82 kg/m2 Lolis Pleitez PUBLIC HEALTH DOCTOR Work Phone: [facility] 12-15-2023 08:08-0400 Body weight 58.42 kg Lolis Pleitez PUBLIC HEALTH DOCTOR Work Phone: [facility] 12-15-2023 08:08-0400 Diastolic blood pressure 70 mm[Hg] Lolis Pleitez PUBLIC HEALTH DOCTOR Work Phone: [facility] 12-15-2023 08:08-0400 Systolic blood pressure 118 mm[Hg] Lolis Pleitez PUBLIC HEALTH DOCTOR Work Phone: [facility] 12-03-2023 09:18-0400 Body height 160 cm Renny Orlando DPM Work Phone: [facility] 12-03-2023 09:18-0400 Body mass index (BMI) [Ratio] 22.5 kg/m2 Renny Orlando DPM Work Phone: [facility] 12-03-2023 09:18-0400 Body weight 57.61 kg Renny Orlando DPM Work Phone: [facility] 12-03-2023 09:18-0400 Diastolic blood pressure 79 mm[Hg] Renny Orlando DPM Work Phone: [facility] 12-03-2023 09:18-0400 Heart rate 78 /min Renny Orlando DPM Work Phone: [facility] 12-03-2023 09:18-0400 Systolic blood pressure 128 mm[Hg] Renny Orlando DPM [facility] Phone[facility] Encounters Encounter Date Encounter Type Care Provider Facility Start: 04-07-2024 End: 04-07-2024 Maggyo chriss Faith MD Work Phone: [facility] Start: 04-07-2024 End: 04-07-2024 Maggyo flowsjaylon Faith MD Work Phone: [facility] Start: 04-07-2024 End: 04-07-2024 Office outpatient visit 15 minutes Keila Faith MD Work Phone: [facility] Comment on above: Asthma, allergic, mi ld intermittent, uncomplicated (CMS/HCC) (Primary Dx) Start: 04-07-2024 End: 04-07-2024 ambulatory KEILA FAITH Not Available Start: 02-11-2024 End: 02-11-2024 Bamboo flowsheet Renny Orlanod DPM Work Phone: [facility] Start: 02-11-2024 End: 02-11-2024 Bamboo flowsheet Renny Frank Regino DPM Work Phone: [facility] Start: 02-11-2024 End: 02-11-2024 Patient encounter procedure Renny Frank Regino DPM Work Phone: [facility] Comment on above: Verruca plantaris (P rimary Dx); Foot pain, right; Foot pain, left Start: 02-11-2024 End: 02-11-2024 ambulatory RENNY Frank REGINO Not Available Start: 01-28-2024 End: 01-28-2024 Bamboo flowsheet Renny Frank Region DPM Work Phone: [facility] Start: 01-28-2024 End: 01-28-2024 Bamboo flowsheet Renny Frank Brown DPM Work Phone: [facility] Start: 01-28-2024 End: 01-28-2024 Patient encounter procedure Renny Frank Regino DPM Work Phone: [facility] Comment on above: Verruca plantaris (P rimary Dx); Foot pain, right; Foot pain, left Start: 01-28-2024 End: 01-28-2024 ambulatory RENNY Frank REGINO Not Available Start: 01-14-2024 End: 01-14-2024 Bamboo flowsheet Renny Frank Brown DPM Work Phone: [facility] Start: 01-14-2024 End: 01-14-2024 Bamboo flowsheet Renny Frank Brown DPM Work Phone: [facility] Start: 01-14-2024 End: 01-14-2024 Patient encounter procedure Renny Frank Regino DPM Work Phone: [facility] Comment on above: Verruca plantaris (P rimary Dx); Foot pain, right; Foot pain, left Start: 01-14-2024 End: 01-14-2024 ambulatory RENNY A BROWN Not Available Start: 12-31-2023 End: 12-31-2023 Bamboo flowsheet Renny A Regino DPM Work Phone: [facility] Start: 12-31-2023 End: 12-31-2023 Bamboo flowsheet Renny Marie Regino DPM Work Phone: [facility] Start: 12-31-2023 End: 12-31-2023 Patient encounter procedure Renny Marie Regino DPM Work Phone: [facility] Comment on above: Verruca plantaris (P rimary Dx); Foot pain, right; Foot pain, left Start: 12-31-2023 End: 12-31-2023 ambulatory RENNY Frank REGINO Not Available Start: 12-17-2023 End: 12-17-2023 Bamboo flowsheet Renny Frank Regino DPM Work Phone: [facility] Start: 12-17-2023 End: 12-17-2023 Bamboo flowsheet Renny Marie Brown DPM Work Phone: [facility] Start: 12-17-2023 End: 12-17-2023 Patient encounter procedure Renny Orlando DPM Work Phone: [facility] Comment on above: Verruca plantaris (P rimary Dx); Foot pain, right; Onychomycosis; Toe pain, bilateral; Xerosis cutis; Foot pain, left Start: 12-17-2023 End: 12-17-2023 ambulatory RENNY ORLANDO Not Available Start: 12-15-2023 End: 12-15-2023 Bamboo flowsheet Lolis Pleitez PUBLIC HEALTH DOCTOR Work Phone: [facility] Start: 12-15-2023 End: 12-15-2023 Bamboo flowsheet Lolis Pleitez PUBLIC HEALTH DOCTOR Work Phone: [facility] Start: 12-15-2023 End: 12-15-2023 Office outpatient visit 15 minutes Lolis Pleitez PUBLIC HEALTH DOCTOR Work Phone: [facility] [place] [facility] Comment on above: Migraine with aura a nd without status migrainosus, not intractable (CMS/LTAC, [facility]) (Primary Dx) Start: 12-15-2023 End: 12-15-2023 ambulatory LOLIS PLEITEZ Not Available Start: 12-03-2023 End: 12-03-2023 Bamboo flowsheet Renny Orlando DPM Work Phone: [facility] Start: 12-03-2023 End: 12-03-2023 Bamboo flowsheet Renny Orlando DPM Work Phone: [facility] Start: 12-03-2023 End: 12-03-2023 Patient encounter procedure Renny Orlando DPM Work Phone: [facility] Comment on above: Verruca plantaris (P rimary Dx); Foot pain, right; Foot pain, left; Onychomycosis; Toe pain, bilateral; Xerosis cutis Start: 12-03-2023 End: 12-03-2023 ambulatory RENNY ORLANDO Not Available Start: 10-12-2023 End: 10-12-2023 ambulatory KEILA E RAMBASEK Not Available Start: 09-10-2023 End: 09-10-2023 ambulatory RENNY ORLANDO Not Available Start: 08-05-2023 End: 08-06-2023 ambulatory Issa VALE Facility:[id number] Start: 07-15-2023 End: 07-15-2023 ambulatory KEILA E RAMBASEK Not Available Start: 07-02-2023 End: 07-02-2023 ambulatory RENNY ORLANDO Not Available Start: 06-11-2023 End: 06-11-2023 ambulatory RENNY ORLANDO Not Available Start: 06-09-2023 End: 06-10-2023 ambulatory Issa VALE Facility:[facility] Start: 06-02-2023 ambulatory Issa VALE Facility:[facility] Start: 05-28-2023 End: 05-28-2023 ambulatory RENNY ORLANDO Facility: [facility] Start: 05-14-2023 Chart abstracting Renny lorenzana DPSobia Work Phone: [facility] Start: 05-14-2023 End: 05-14-2023 ambulatory RENNY ORLANDO Not Available Start: 04-30-2023 End: 04-30-2023 ambulatory RENNY ORLANDO Not Available Start: 04-10-2023 End: 04-10-2023 ambulatory [facility] Start: 11-25-2022 End: 11-25-2022 ambulatory TEGAN [facility] Start: 07-02-2022 End: 07-02-[address] MIKO BURRIS . Facility:[facility] Start: 06-02-2022 End: 06-03-[address] MIKO BURRIS . Facility:[facility] Start: 05-30-2022 End: 05-31-[address] MIKO BURRIS . Facility:[facility] Start: 05-26-2022 End: 05-27-[address] MIKO BURRIS . Facility:[facility] Start: 05-23-2022 End: 05-24-[address] MIKO BURRIS . Facility:[facility] Start: 05-22-2022 End: 05-22-[address] MIKO BURRIS . Facility:[facility] Start: 05-14-2022 End: 05-15-[address] MIKO BURRIS . Facility:[facility] Start: 05-14-2022 End: 05-14-2022 ambulatory [facility] Start: 01-22-2022 End: 01-23-[address] MIKO BURRIS . Facility:[facility] Start: 12-31-2021 End: 01-01-[address] MIKO BURRIS . Facility:[facility] Start: 12-25-2021 End: 12-25-[address] MIKO BURRIS . Facility:[facility] Start: 11-14-2021 End: 11-15-[address] MIKO BURRIS . Facility:[facility] Start: 11-01-2021 End: 11-01-[address] MIKO BURRIS . Facility:[facility] Start: 09-18-2021 End: 09-19-[address] MIKO BURRIS . Facility: Start: 08-23-2021 End: 08-23-[address] MIKO BURRIS . Facility:[facility] Start: 08-23-2021 End: 08-23-[address] MIKO BURRIS . Facility: Start: 08-05-2021 End: 08-06-[address] MIKO BURRIS . Facility: Plan of Treatment Date Care Activity Detail Author Start: 01-11-2025 End: 01-11-2025 Patient encounter procedure 01/11/2025 9:20 AM EDT Office Visit [facility] [address] [place] [phone] Keila Faith MD [address] [place] [address] [facility] Start: 12-14-2024 End: 12-14-2024 Patient encounter procedure 12/14/2024 8:20 AM EDT Office Visit [facility] [address] [place] [address] Cristofer Pleitezah, [address] [place] [phone] [facility] [place] [facility] Start: 04-18-2024 End: 04-18-2024 Patient encounter procedure 04/18/2024 9:20 AM EST Office Visit [facility] [address] [place] [phone] Keila Faith MD [address] [place] [address] [facility] Start: 04-07-2024 End: 04-07-2024 Patient encounter procedure 04/07/2024 9:20 AM EST Office Visit [facility] [address] [place] [phone] Keila Faith MD [address] [place] [address] Arrived [facility] Comment on above: Arrived Start: 02-11-2024 End: 02-11-2024 Patient encounter procedure [facility] Comment on above: Verruca plantaris (P rimary Dx); Foot pain, right; Foot pain, left Start: 01-28-2024 End: 01-28-2024 Patient encounter procedure [facility] Comment on above: Verruca plantaris (P rimary Dx); Foot pain, right; Foot pain, left Start: 01-14-2024 End: 01-14-2024 Patient encounter procedure 01/14/2024 8:30 AM EDT Office Visit [facility] [address] [phone] Renny Orlando, SANK[address] [address] Verruca plantaris (Primary Dx); Foot pain, right; Foot pain, left [facility] Comment on above: Verruca plantaris (P rimary Dx); Foot pain, right; Foot pain, left Start: 12-31-2023 End: 12-31-2023 Patient encounter procedure 12/31/2023 9:10 AM EDT Office Visit [facility] [address] [phone] Renny Orlando DPM [address] [address] Verruca plantaris (Primary Dx); Foot pain, right; Foot pain, left [facility] Comment on above: Verruca plantaris (P rimary Dx); Foot pain, right; Foot pain, left Start: 12-17-2023 End: 12-17-2023 Patient encounter procedure [facility] Comment on above: Verruca plantaris (P rimary Dx); Foot pain, right; Onychomycosis; Toe pain, bilateral; Xerosis cutis Start: 12-15-2023 End: 12-15-2023 Patient encounter procedure [facility] Comment on above: Arrived Start: 12-14-2023 End: 12-14-2023 Patient encounter procedure 12/14/2023 9:20 AM EDT [facility] [address] [facility] [address] [place] [address] Keila Faith MD [address] [place] [address] [facility] Start: 12-06-2023 Influenza vaccination Influenza Vacc ine (#1) [facility] Start: 12-03-2023 End: 12-03-2023 Patient encounter procedure 12/03/2023 9:30 AM EDT Procedure Visit [facility] [address] [phone] Renny Orlando DPM [address] [address] Verruca plantaris (Primary Dx); Foot pain, right; Foot pain, left; Onychomycosis; Toe pain, bilateral; [facility]erosis cutis [facility] Comment on above: Verruca plantaris (P rimary Dx); Foot pain, right; Foot pain, left; Onychomycosis; Toe pain, bilateral; Xerosis cutis Start: 05-14-2023 End: 05-14-2023 Patient encounter procedure 05/14/2023 8:40 AM EST Office Visit [facility] [address] [phone] Renny Orlando DPM [address] [address] [facility] Start: 12-05-2022 Influenza vaccination Influenza Vacc ine (#1) [facility] Start: 10-27-2018 Pneumococcal Vaccine : 65+ Years (2 - PPSV23 or PCV20) Pneumococcal Vaccine: 65+ Years (2 - PPSV23 or PCV20) [facility] Start: 10-27-2018 Pneumococcal Vaccine : 65+ Years (2 of 2 - PPSV23 or PCV20) Pneumococcal Vaccine: 65+ Years (2 of 2 - PPSV23 or PCV20) [facility] Start: 1989 Screening for malign ant neoplasm of breast Mammogram [facility] Start: 1949 Screening for malign ant neoplasm of colon [facility] Payers Date Payer Category Payer Private Health Insurance [employer] [id number] 2021 Unknown [employer] [id number] 2021-Present [address] [place] [address] [id number] 2014 Medicare [id number]. [id number] 1959 Medicare [id number] 1959 Unknown [id number] 1949 Unknown [id number] 2.840.1.267327.3.579.2. 593 1949 Unknown [id number] 2.840.1.174048.3.579.2. 593 1949 Unknown [id number] .840.1.808373.3.579.2. 593 1949 Unknown [id number] 2.840.1.633865.3.579.2. 593 1949 Unknown [id number] 2.16.840.1.111446.3.579.2. 593 1949 Unknown [id number] 2.16.840.1.605576.3.579.2. 593 1949 Unknown [id number] 2.16.840.1.604921.3.579.2. 593 1949 Unknown [id number] 2.16.840.1.978153.3.579.2. 593 1949 Unknown [id number] 2.16.840.1.052184.3.579.2. 593 1949 Unknown [id number] 2.16.840.1.310844.3.579.2. 593 1949 Unknown [id number] 2.16.840.1.754141.3.579.2. 593 1949 Unknown [id number] 2.16.840.1.705274.3.579.2. 593 1949 Unknown [id number] 2.16.840.1.228491.3.579.2. 593 1949 Unknown [id number] 2.16.840.1.049727.3.579.2. 593 1949 Unknown [id number] 2.16.840.1.834690.3.579.2. 593 1949 Unknown [id number] 2.16.840.1.450230.3.579.2. 593 1949 Unknown [id number] 2.16.840.1.128415.3.579.2. 727 1949 Unknown [id number] 2.16.840.1.135504.3.579.2. 727 1949 Unknown [id number] 2.16.840.1.573374.3.579.2. 1259 1949 Unknown [id number] 2.16.840.1.076023.3.579.2. 1259 1949 Unknown [id number] 2.16.840.1.357276.3.579.2. 1258 1949 Unknown [id number] 2.16.840.1.635239.3.579.2. 1258 1949 Unknown [id number] 2.16.840.1.779956.3.579.2. 1258 1949 Unknown [id number] 2.16.840.1.836242.3.579.2. 1258 1949 Unknown [id number] 2.16.840.1.899083.3.579.2. 1258 1949 Unknown [id number] 2.16.840.1.706412.3.579.2. 1258 1949 Unknown [id number] 2.16.840.1.369456.3.579.2. 1258 1949 Unknown [id number] 2.16.840.1.546484.3.579.2. 1258 1949 Unknown [id number] 2.16.840.1.604735.3.579.2. 1258 1949 Unknown [id number] 2.16.840.1.072498.3.579.2. 1258 1949 Unknown [id number] 2.16.840.1.047891.3.579.2. 1258 1949 Unknown [id number] 2.16840.1.659619.3.579.2. 1258 1949 Unknown [id number] 2.16.840.1.832326.3.579.2. 1258 1949 Unknown [id number] 2.16840.1.127744.3.579.2. 1259 Social History Date Type Detail Facility Start: 04-30-2023 End: 12-03-2023 Tobacco smoking status NDIS Ex-smoker [facility] End: 04-06-2006 History of tobacco use Current smoker [facility] End: 04-06-2006 History of tobacco use Cigarette Smoker [facility] History of tobacco use Passive smoker [facility] Start: 04-30-2023 End: 12-03-2023 Tobacco use and exposure Smokeless tobacco non-user [facility] Start: 05-14-2023 End: 12-03-2023 Alcohol intake Lifetime non-drinker (finding) [facility] Start: 04-30-2023 End: 02-11-2024 History of Social function [facility] Start: 04-30-2023 End: 02-11-2024 Tobacco use panel [facility] Start: 12-12-2022 Alcohol Comment Caffeine intake: non e [facility] Start: 1950 Sex Assigned At Not on file N [facility] Start: 12-31-2023 End: 04-07-2024 Alcoholic beverage intake Ex-drinker (finding) [facility] Start: 12-14-2023 Alcohol Comment Caffeine intak e: none; quit in 2014 [facility] Clinical Notes 05-14-2022 to 04-07-2024 Keila Faith MD - 04/07/2024 9:20 AM Lani Orlando DPM - 02/11/2024 8:30 AM Lani Orlando DPM - 01/28/2024 8:40 AM EDTRenny Orlando DPM - 01/14/2024 8:30 AM EDT Note Date & Type Note Facility 04-07-2024 History of Present illness Narrative Akira Buitrago returns to the office today For follow-up assessment for asthma and rhinitis. Asthma control test today is 23. She uses atrovent PRN and this is helpful. She has albuterol on hand. She uses Breztri most days of the week 1 or 2 puffs before bed and this is helpful for her. She has been coughing up a little bit of yellow mucous. She got a Zpak in November and this was helpful. She walked 2 miles this AM and did well with that. She has been nusing navage every day and this has been helpful but she has been having some migraines recently. She uses Ubrelvy Prn when she gets this. She follows in the Neurology clinic. She has been using Flonase most days. EXAM The patient appears comfortable in the office today. Lungs are clear to auscultation bilaterally. The oral mucosa is pink and healthy without any lesions or ulcers. The palate elevates in the midline. The nasal mucosa is pink and healthy. There is no epistaxis mucopus or nasal polyposis noted. The nasal septum is approximately in the midline. The skin is clear of any lesions, excoriations, or erythema. IMPRESSION: Mild intermittent asthma - continue Breztri every day and atrovent PRN and albuterol rarely. Continue Exercise. No refills. Follow-up 9 months. We agreed she will continue her nasal fluticasone and intranasal azelastine and contact the office if any difficulty with any of her medications or symptoms. documented in this encounter [facility] 02-11-2024 History of Present illness Narrative Patient: Akira Buitrago : 1950 PCP: Miko Burris MD SUBJECTIVE Patient presents today for follow up of skin lesion/neoplasm of unknown origin to the right and left foot Pt states that previous treatment of acid tx with some improvement Pt rates pain the pain on a 1-10 scale an intensity of 3 Pt presents today for followup. Allergies: Allergies [...] b.I.d. basis., Disp: 30 mL, Rfl: 11 Oxrykio-Ckbmzvausxg-Jajgfaaxha (Breztri Aerosphere) 160-9-4.8 MCG/ACT aerosol, Inhale 1 [...] Partner Violence: Unknown (05/28/2023) Re[facility] from [facility] [place] [facility] Fear of Current [...] Renny Orlando DPM documented in this encounter [facility] 01-28-2024 History of Present illness Narrative Patient: Akira Buitrago : 1950 PCP: Miko Burris MD SUBJECTIVE Patient presents today for [...] b.I.d. basis., Disp: 30 mL, Rfl: 11 Axunmqv-Ymuycdugwdq-Ngrntdpcyx (Breztri Aerosphere) 160-9-4.8 MCG/ACT aerosol, Inhale 1 [...] Partner Violence: Unknown (05/28/2023) Received from [facility] [place] [facility] [place] Fear of Current [...] Renny Orlando DPM documented in this encounter [facility] 01-14-2024 History of Present illness Narrative Patient: Akira Buitrago : 1950 PCP: Miko Burris MD SUBJECTIVE Patient presents today for [...] b.I.d. basis., Disp: 30 mL, Rfl: 11 Pmqfsnb-Cktcezslzkx-Iwgpuruzgk (Breztri Aerosphere) 160-9-4.8 MCG/ACT aerosol, Inhale 1 [...] Partner Violence: Unknown (05/28/2023) Received from [facility] [place] [facility] [place] Fear of Current [...] Renny Orlando DPM documented in this encounter [facility] 12-31-2023 History of Present illness Narrative Patient: Akira Buitrago : 1950 PCP: Miko Burris MD SUBJECTIVE Patient presents today for follow up of skin lesion/neoplasm of unknown origin to the right and left foot Pt states that previous treatment of acid tx with some improvement Pt rates pain the pain on a 1-10 scale an intensity of 5 Pt presents today for followup. Patient also presents today for follow-up of dry skin to feet has been using creams her feet with positive improvement Allergies: Allergies Allergen Reactions Amoxicillin Itching, Other [...] b.I.d. basis., Disp: 30 mL, Rfl: 11 Yzhwird-Ghzoqzkwcyv-Apccixoybn (Breztri Aerosphere) 160-9-4.8 MCG/ACT aerosol, Inhale 1 [...] Partner Violence: Unknown (05/28/2023) Received from [facility] [place] [facility] [place] Fear of Current [...] sub 3rd metatarsal measuring 0.1 cm x 0.2 cm into the left sub 5th metatarsal [...] Renny Orlando DPM documented in this encounter [facility] 12-17-2023 History of Present illness Narrative Patient: Akira Buitrago : 1950 PCP: Miko Burris MD SUBJECTIVE Patient presents today for follow up of skin lesion/neoplasm of unknown origin to the right and left foot Pt states that previous treatment of acid tx with some improvement Pt rates pain the pain on a 1-10 scale an intensity of 4 Pt presents today for followup. Patient also presents today for follow-up of dry skin to feet has been using creams her feet with positive improvement Patient does not want her nails debrided today Allergies: Allergies Allergen Reactions Amoxicillin Itching, Other and Unknown Molds & Smuts Unknown Morphine Itching and Other Past Medical History: Past Medical History: Diagnosis Date Heart murmur History of herniated intervertebral disc History of varicose veins Hyperlipidemia (CMS/HCC) Hypertension (CMS/HCC) Hyperthyroidism (CMS/HCC) Osteoarthritis Medications: Current Outpatient Medications: aspirin 81 MG EC tablet, 1 (one) time each day at the same time., Disp: , Rfl: azelastine (Astelin) 0.1 % nasal spray, Azelastine HCl Two sprays per nostril on a b.I.d. basis., Disp: 30 mL, Rfl: 11 budesonide (Pulmicort) 1 MG/2ML nebulizer solution, Take 2 mL (1 mg) by nebulization in the morning and 2 mL (1 mg) before bedtime. Rinse mouth with water after use to reduce aftertaste and incidence of candidiasis. Do not swallow.., Disp: 124 mL, Rfl: 11 cloNIDine (Catapres-TTS) 0.1 MG/24HR, cloNIDine, Disp: , Rfl: denosumab (Prolia) 60 MG/ML solution prefilled syringe, as directed Subcutaneous, Disp: , Rfl: fenofibrate (Triglide) 160 MG [...] needed for 90 days, Disp: , Rfl: liothyronine (Cytomel) 5 MCG [...] mouth at bedtime., Disp: , Rfl: Ubrogepant (Ubrelvy) 50 MG tablet, Ubrelvy, Disp: , Rfl: Social History: Social History Socioeconomic History Marital status: Spouse name: Not on file Number of children: Not on file Years of education: Not on file Highest education level: Not on file Occupational History Not on file Tobacco Use Smoking status: Former Current packs/day: 0.00 Types: Cigarettes Quit date: 04/06/2006 Years since quittin.6 Passive exposure: Past Smokeless tobacco: Never Vaping Use Vaping status: Unknown Substance and Sexual Activity Alcohol use: Never Comment: Caffeine intake: none Drug use: Defer Sexual activity: Defer Other Topics Concern Not on file Social History Narrative Not on file Social Determinants of Health Financial Resource Strain: Not on file Food Insecurity: Not on file Transportation Needs: Not on file Physical Activity: Not on file Stress: Not on file Social Connections: Not on file Intimate Partner Violence: Unknown (05/28/2023) Received from [facility] [place] [facility] [place] Fear of Current [...] sub 3rd metatarsal measuring 0.1 cm x 0.2 cm into the left sub 5th metatarsal [...] Verruca plantaris 2. Foot pain, right 3. Onychomycosis 4. Toe pain, bilateral 5. Xerosis cutis 6. Foot pain, left PLAN Application of salinocaine [...] Renny Orlando DPM documented in this encounter [facility] 12-15-2023 History of Present illness Narrative Images from the original note were not included. Lolis Pleitez NP Chief Complaint Patient presents with Migraine Subjective Akira Buitrago is a 73 y.o. female. HPI The patient presents today for follow up. She is accompanied by her . In 2023, she had migraines on April 19, April 23, April 29, May 05, May 14, May 26 (took 2 Ubrelvy), June 10, July 17, July 21, August 23, August 31, September 06, October 09 (took 2 Ubrelvy), October 14, October 20, November 18 (took 2 Ubrelvy), November 30, December 03, December 10, and December 14. The patient's migraines are primarily located near the right eye but can also be located in the frontal region. Severity varies. She is unable to describe the characteristic. They are associated with increased sensitivity to light. They are not associated with visual disturbance, nausea, vomiting, numbness, paresthesias, weakness, or increased sensitivity to sound. They are aggravated by physical activity. Ubrelvy is very helpful for acute migraine treatment. The patient states it typically aborts her migraines within 1 hour of use. However, she will occasionally take a 2nd dose if her migraine has not resolved within 2 to 3 hours of the 1st dose. The patient sleeps well. She continues to walk once or twice a day. She denies any further concerns and denies any new neurologic symptoms. Review of Systems Constitutional: Negative for appetite change, chills, fatigue, fever and unexpected weight change. HENT: Negative for trouble swallowing and voice change. Eyes: Negative for visual change, double vision or loss of vision Respiratory: Positive for cough and shortness of breath (on exertion - chronic, follows with primary care provider). Negative for wheezing. Cardiovascular: Negative for chest pain and palpitations. Gastrointestinal: Negative for abdominal pain, blood in stool and vomiting. Musculoskeletal: Positive for arthralgias. Negative for gait problem and myalgias. Neurological: Positive for headaches (associated with photophobia, phonophobia, and nausea). Negative for dizziness, tremors, seizures, syncope, facial asymmetry, speech difficulty, weakness, light-headedness and numbness. Psychiatric/Behavioral: Negative for confusion, hallucinations and suicidal ideas. The patient is not nervous/anxious. Medication List aspirin 81 MG EC tablet azelastine 0.1 % nasal spray; Commonly known as: Astelin; Azelastine HCl Haii Aerosphere 160-9-4.8 MCG/ACT aerosol; Generic drug: Obpyejf-Zhbkfwptmzw-Ixsoldeozf budesonide 1 MG/2ML nebulizer solution; Commonly known as: Pulmicort; Take 2 mL (1 mg) by nebulization in the morning and 2 mL (1 mg) before bedtime. Rinse mouth with water after use to reduce aftertaste and incidence of candidiasis. Do not swallow. cloNIDine 0.1 MG tablet; Commonly known as: Catapres fenofibrate 160 MG tablet; Commonly known as: Triglide fluticasone 50 MCG/ACT nasal spray; Commonly known as: Flonase furosemide 20 MG tablet; Commonly known as: Lasix ipratropium 0.02 % nebulizer solution; Commonly known as: Atrovent; Take 2.5 mL (0.5 mg) by nebulization 4 (four) times a day as needed for wheezing or shortness of breath lactulose 10 GM/15ML solution; Commonly known as: Chronulac levothyroxine 100 MCG tablet; Commonly known as: Synthroid, Levoxyl omeprazole [address] capsule; Commonly known as: PriLOSEC potassium chloride CR 10 MEQ ER tablet; Commonly known as: Klor-Con pravastatin 10 MG tablet; Commonly known as: Pravachol Prolia 60 MG/ML solution prefilled syringe; Generic drug: denosumab Ubrelvy 50 MG tablet; Generic drug: Ubrogepant Past Medical History: Diagnosis Date Chronic bronchitis (CMS/HCC) Heart murmur History of herniated intervertebral disc History of varicose veins Hyperlipidemia (CMS/HCC) Hypertension (CMS/HCC) Hyperthyroidism (CMS/HCC) Kidney disease Osteoarthritis Osteoporosis (CMS/HCC) Varicose vein of leg Past Surgical History: Procedure Laterality Date CATARACT EXTRACTION FOOT SURGERY Right x2 HYSTERECTOMY OTHER SURGICAL HISTORY Bilateral lens implant SEPTOPLASTY SINUS SURGERY 1998 Family History Problem Relation Name Age of Onset Coronary artery disease Mother Hyperlipidemia Mother Hypertension Mother Coronary artery disease Father Hyperlipidemia Father Hypertension Father Hypertension Other Hyperlipidemia Other COPD Other Alcohol abuse Other Clotting disorder Other Learning disabilities Other Mental illness Other Obesity Other Peripheral vascular disease Other Cancer Sibling COPD Sibling Coronary artery disease Sibling Depression Sibling Diabetes Sibling Hyperlipidemia Sibling Hypertension Sibling Migraines Sibling Social History Tobacco Use Smoking status: Former Current packs/day: 0.00 Types: Cigarettes Quit date: 04/06/2006 Years since quittin.7 Passive exposure: Past Smokeless tobacco: Never Substance Use Topics Alcohol use: Not Currently Comment: Caffeine intake: none; quit in 2014 Allergies: Amoxicillin, Molds & smuts, and Morphine Vitals: 12/15/23 0808 BP: 118/70 Body mass index is 22.82 kg/m . weight: 128 lb 12.8 oz Neurologic exam: Mental status: Awake and alert with unlabored respirations. Oriented to person, place and time. Recent and remote memory are intact. Speech is clear and fluent without aphasia. Attention and concentration are normal. Fund of knowledge is appropriate for level of education. Pleasant. Cranial nerves: CN II: Visual acuity is normal. Visual kennedy full to confrontation. CN III, IV, : Pupils are equal, round and reactive to light. Extraocular movements intact. No ptosis present. CN V: Facial sensation is normal. CN VII: Full and symmetric facial movement. CN VIII: Hearing is normal to finger rub bilaterally. CN IX and X: Palate elevates symmetrically. CN XI: Shoulder shrug is normal bilaterally. CN XII: Tongue is midline without atrophy or fasciculation. Motor: RUE strength deltoid , biceps , triceps , wrist extensors , wrist flexor , and edge sander strength 5/5. LUE strength deltoid , biceps , triceps , wrist extensors , wrist flexor , and edge sander strength 5/5. RLE strength iliopsoas, quadriceps, tibialis anterior, plantar flexion, and dorsiflexion strength 5/5. LLE strength iliopsoas, quadriceps, tibialis anterior, plantar flexion, and dorsiflexion strength 5/5. Tone and bulk are normal. Sensory: Sensation is intact to light touch throughout all four extremities. Sensation is intact to temperature in all extremities. Reflexes: RUE biceps reflex 1+ , brachioradialis reflex 1+. LUE biceps reflex 1+ , brachioradialis reflex 1+. RLE Knee reflex 1+. LLE Knee reflex 1+. Coordination: Zaydfu-vq-xefd testing normal. Rapid alternating movements are normal. Gait: Normal. Review and summary of old records: MRI of the brain with and without contrast on 09/18/21: Mild age-consistent atrophy and chronic small vessel ischemic disease. No abnormal or suspicious findings to account for the patient's symptoms. CT of the sinuses without contrast on 08/05/21: No CT evidence of acute or chronic sinusitis. Assessment/Plan Diagnoses and all orders for this visit: Migraine with aura and without status migrainosus, not intractable (CMS/HCC) The patient has a long-standing history of episodic migraine. She suspects onset was in her early 20s. MRI of the brain and CT of the sinuses (details in review and summary of old records section) were unremarkable for secondary headache cause. The patient has had approximately 1 to 4 migraines per month recently which are effectively relieved by Ubrelvy. She had tried sumatriptan for abortive migraine treatment without success in the past. She is content with the current regimen. PLAN: - I again do not believe preventative treatment is warranted at this time. Could consider this in the future if her migraines become more frequent or cause significant disability - Continue Ubrelvy 100 mg by mouth as needed for migraine . Take no more than 2 doses in 24 hours. Samples were provided today, as Ubrelvy is cost prohibitive for the patient - I advised the patient to notify our office when she needs more samples of Ubrelvy - I recommended adequate hydration, sleep hygiene, and regular physical activity as tolerated I advised the patient to notify our office if her headaches increase in frequency or if she develops any new neurologic symptoms/concerns in the future. Diagnosis and treatment options discussed in detail. All questions answered. The patient verbalizes understanding and is agreeable to the plan. Discussion in layman's terms. Follow up in the office within 1 year; sooner if needed for new or worsening symptoms. Lolis Pleitez NP [facility] documented in this encounter [facility] 12-03-2023 History of Present illness Narrative Patient: Akira Ayno Buitrago : 1950 PCP: Miko Burris MD SUBJECTIVE Patient presents today for follow up of skin lesion/neoplasm of unknown origin to the right and left foot Pt states that previous treatment of acid tx with some improvement Pt rates pain the pain on a 1-10 scale an intensity of 5 Pt presents today for followup. Patient also presents today for follow-up of dry skin to feet has been using creams her feet with positive improvement Patient does not want her nails debrided today Allergies: Allergies Allergen Reactions Amoxicillin Itching, Other and Unknown Molds & Smuts Unknown Morphine Itching and Other Past Medical History: Past Medical History: Diagnosis Date Heart murmur History of herniated intervertebral disc History of varicose veins Hyperlipidemia (CMS/HCC) Hypertension (CMS/HCC) Hyperthyroidism (CMS/HCC) Osteoarthritis Medications: Current Outpatient Medications: aspirin 81 MG EC tablet, 1 (one) time each day at the same time., Disp: , Rfl: azelastine (Astelin) 0.1 % nasal spray, Azelastine HCl Two sprays per nostril on a b.I.d. basis., Disp: 30 mL, Rfl: 11 budesonide (Pulmicort) 1 MG/2ML nebulizer solution, Take 2 mL (1 mg) by nebulization in the morning and 2 mL (1 mg) before bedtime. Rinse mouth with water after use to reduce aftertaste and incidence of candidiasis. Do not swallow.., Disp: 124 mL, Rfl: 11 cloNIDine (Catapres-TTS) 0.1 MG/24HR, cloNIDine, Disp: , Rfl: denosumab (Prolia) 60 MG/ML solution prefilled syringe, as directed Subcutaneous, Disp: , Rfl: fenofibrate (Triglide) 160 MG [...] needed for 90 days, Disp: , Rfl: liothyronine (Cytomel) 5 MCG [...] mouth at bedtime., Disp: , Rfl: Ubrogepant (Ubrelvy) 50 MG tablet, Ubrelvy, Disp: , Rfl: Social History: Social History Socioeconomic History Marital status: Spouse name: Not on file Number of children: Not on file Years of education: Not on file Highest education level: Not on file Occupational History Not on file Tobacco Use Smoking status: Former Current packs/day: 0.00 Types: Cigarettes Quit date: 04/06/2006 Years since quittin.6 Passive exposure: Past Smokeless tobacco: Never Vaping Use Vaping status: Unknown Substance and Sexual Activity Alcohol use: Never Comment: Caffeine intake: none Drug use: Defer Sexual activity: Defer Other Topics Concern Not on file Social History Narrative Not on file Social Determinants of Health Financial Resource Strain: Not on file Food Insecurity: Not on file Transportation Needs: Not on file Physical Activity: Not on file Stress: Not on file Social Connections: Not on file Intimate Partner Violence: Unknown (05/28/2023) Received from [facility] [place] [facility] Fear of Current [...] at the right sub 3rd metatarsal measuring 0.2 cm x 0.2 cm into the left sub 5th metatarsal [...] Foot pain, right 3. Foot pain, left 4. Onychomycosis 5. Toe pain, bilateral 6. Xerosis cutis PLAN Application of salinocaine acid medication to [...] procedure. Continue creams twice daily to feet. Did offer patient refill would like to purchase urea cream today Renny Orlando DPM documented in this encounter [facility] 06-09-2023 Note Chief Complaint consultation for [...] 1 tab(s), Oral, Daily Flonase 0.05 mg/inh Perry, 2 spray(s), Nasal, Daily lactulose 10 g/15 [...] mEq= 1 tab(s (more content not included)... [facility] Comment on above: Result Comment: Elec tronically Signed By: KAVIN FRANKLIN, Issa Hi\Date and Time Signed: 06/09/23 08:28 EST 04-10-2023 Note Cardiology Follow Up Progress Note Chief Complaint: follow up regarding valvular regurgitation HPI: Akira Buitrago is a 72 y.o. female with [...] nostril in the morning and at bedtime. glqahvlnid-lvxbifxk-jybheigelr (Breztri Aerosphere) 160-9-4.8 mcg/actuation HFA aerosol inhaler [...] as needed Juanita Jenkins MD Interventional Cardiology [facility] (more content not included)... [facility] 04-10-2023 Note Patient here for 6 [...] All other systems reviewed and are negative. [facility] 11-25-2022 Note Remains stable, ches t pain resolved and no acute concerns currently [facility] 11-25-2022 Note Current echo 05/2022- Mild MR and no concerning symptoms currently [facility] 11-25-2022 Note Current echo 05/2022- Mild MR and no concerning symptoms currently [facility] 11-25-2022 Note Continue pravastatin 10 mg daily and fenofibrate- pt states PCP orders her annual labs F/U with PCP [facility] 11-25-2022 Note [facility]TP CARDIOLOGY PROGR ESS NOTE HPI: Akira Buitrago is a 72 y.o. female here [...] Prior to Visit Medication Sig Dispense Refill zltsvjbrxa-dnpicpxv-fbnlfatzis (Breztri Aerosphere) 160-9-4.8 mcg/actuation HFA aerosol inhaler [...] no acute concerns currently RTC 4-6 months [facility] 05-26-2022 Note CARDIAC STRESS TEST Requesting Physician: Procedure Date:05/26/2022 This is a treadmill stress test with myocardial perfusion imaging, performed at the [facility] on 05/26/2022. Informed consent was obtained. [...] perfusion images will be reported separately. [facility] 05-14-2022 Note Cardiology Follow Up Progress Note Chief Complaint: follow up regarding valvular regurgitation HPI: Akira uBitrago is a 71 y.o. female with a [...] Prior to Visit Medication Sig Dispense Refill eqoqfodgjp-oxmrxgmc-qliktzlbpl (Breztri Aerosphere) 160-9-4.8 mcg/actuation HFA aerosol inhaler [...] red flag symptoms. (more content not included)... [facility] 05-14-2022 Note Patient here for 6 m o follow up valve regurgitation and hyperlipidemia. C/o intermittent chest pressure. She says sometimes she takes aspirin to relieve the pain if it lasts more then a few minutes. Occurs at rest, as well as exercise, but she states it's no worse with exercise. [facility] Evaluation note Diagnosis Verruca plantaris- Primary [...] right Pain in soft tissues of limb Onychomycosis Dermatophytosis of nail Toe pain, bilateral Xerosis cutis Other specified disease of sebaceous glands Foot pain, left Pain in soft tissues of limb [facility] Diagnosis Verruca plantaris- Primary Plantar wart Foot pain, right Pain in soft tissues of limb Foot pain, left Pain in soft tissues of limb Onychomycosis Dermatophytosis of nail Toe pain, bilateral Xerosis cutis Other specified disease of sebaceous glands [facility] Diagnosis Migraine with aura and without status migrainosus, not intractable (CMS/HCC)- Primary Verruca plantaris- Primary Plantar wart Foot pain, right Pain in soft tissues of limb Onychomycosis Dermatophytosis of nail Toe pain, bilateral Xerosis cutis Other specified disease of sebaceous glands [facility] Diagnosis Verruca plantaris- Primary Plantar wart Foot pain, right Pain in soft tissues of limb Foot pain, left Pain in soft tissues of limb [facility] Diagnosis Asthma, allergic, mild intermittent, uncomplicated (CMS/HCC)- Primary documented in this encounter [facility] Summary [...] section and content) DATE CREATED AUTHOR 08/17/2021 [facility] dical Specialist DATE CREATED AUTHOR AUTHOR'S ORGANIZ ATION 07/05/2022 [facility] DATE CREATED AUTHOR AUTHOR'S ORGANIZ ATION 05/11/2023 [facility] DATE CREATED AUTHOR AUTHOR'S ORGANIZ ATION 08/10/2023 [facility] DATE CREATED AUTHOR AUTHOR'S ORGANIZ ATION 04/08/2024 [facility] dical Specialists EPIC Care Teams (unrecognized sec tion and content) [employer] Relationship Specialty Start Date End Date Miko Burris MD [address] [place] [address] PCP - General Family Medicine 04/30/23 [employer] Relationship Specialty Start Date End Date Miko Burris MD [address] [place] [address] PCP - General Family Medicine 04/30/23 [employer] 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 [place] [address] PCP - General Family Medicine 04/30/23 Reason for Visit (unrecogniz ed section and content) Reason Comments Follow-up rt lesions Reason Comments Lesion Removal Reason Comments Lesion Removal B/L lesions Reason Comments Lesion Removal F/U B/L lesions Reason Comments Toenail Care Non DM Nails Reason Comments Migraine Reason Comments Follow-up 2wk rt lesions FOR RECORDS PERTAINING TO PATIENTS WHO ARE [...] BE BASED ON THE PRIMARY CLINICAL RECORDS. [facility] [employer] [facility]. provides no warranty or guarantee of the accuracy or completeness of information in this document.
== END 2024-04-18 07:37 | disposition home or self-care (01) ==
LOC: MRI 07:36
PROVIDERS: PCP Family Medicine; Visit Provider Family Medicine
DX: M54.12 Radiculopathy, cervical region (principal); M50.30 Other cervical disc degeneration, unspecified cervical region; M48.02 Spinal stenosis, cervical region
CPT/HCPCS: 72141

== ENCOUNTER 2024-04-22 09:18 | Outpatient (OUT) | payer MEDICARE, OTHER, SELFPAY ==
--- OUTSIDE RECORDS SUMMARY | 2024-04-21 09:18 | XMS_ITS | CCD ---
Author Organization [facility] Care Team Providers Care Hospitalist Name Role Phone HOY ., DR ALVARADO [...] Unavailable Riveray Miko FRANKLIN Primary Care Provider [phone] sIsa VALE Attending Unavailable Issa VALE Attending Unavailable [...] Amoxicillin; Translations: [AMOXICILLIN] Drug Allergy 3 [facility] Repository (3 sources) Morphine; Translations: [MORPHINE] Drug Allergy 3 [facility] (20 sources) Amoxicillin Drug Allergy 3 Itching, Other, Unknown [facility] (20 sources) Mold Extract Drug Allergy 4 Unknown [facility] (20 sources) Morphine Drug Allergy 3 Itching, Other [facility] (1 source) Penicillin; Translations: [penicillin] Drug Allergy [facility] Repository (1 source) No Known Medication Allergies; Translations: [No Known Medication Allergies] Propensity to adverse reactions (disorder) [facility] Repository Medications Current Medications Medication [...] 1 puff Daily Active 168 hr cloNIDine 0.31036 mg/hr transdermal system (20 sources) Central alpha-2 [...] Range Facility Outside Colonoscopyon 2023 Outside Colonoscopy [id number] 50 [id number]#1.0 0TIFF Normal [facility] Reminderson 08-07-2023 Reminders - From: Kandi Cesar LPN To: N - Clinical; Sent: 08/07/2023 07:59:01 EDT Show up: 07/06/2033 07:59:00 EDT Subject: colonoscopy recall Due Date/Time: 08/04/2033 07:00:00 EDT Reminder/Recall If patient is in good health, she is due for screening colonoscopy 08/04/2033. Normal [facility] Consent for Procedure/Surger yon 06-10-2023 Consent for Procedure/Surgery [id number] 0TIFF Normal [facility] Ambulatory Visit Summaryon 0 06-09-2023 [...] oral tablet) fluticasone nasal (Flonase 0.05 mg/inh [place]) furosemide (Lasix 20 mg Tab) lactulose (lactulose [...] Unchanged fluticasone nasal (Flonase 0.05 mg/ inh [place]) 2 Sprays Nasal Inhalation Every day Contact [...] for your care. Normal [facility] Physician Referralon 024 Physician Referral [id number] 20 [id number] 0TIFF Normal [facility] Office Visiton 04-10-2023 Follow-up visit [id number] BuitragoShirley ly D 1950 F Date Provider Department Center 04/10/2023 3848-JUANITA JENKINS [facility] No family history on file Level of Service:40237 MS OFFICE/OUTPATIENT ESTABLISHED LOW MDM 20 MIN Normal [facility] Office Visiton 11-25-2022 Follow-up visit [id number] BuitragoShirley ly D 1950 F Date Provider Department Center 11/25/2022 120-TEGAN PAIZ [facility] No family history on file Level of Service:77370 MS OFFICE/OUTPATIENT ESTABLISHED MOD MDM 30-39 MIN Normal [facility] CALCIUMon 07-02-2022 Calcium [Mass/Vol] 9.8 mg/dL Normal 8.5-10.1 [facility] Comment on above: Performed By: #### C A, CREA #### [facility] [address] [address] [address] Zuly Medina CREATININEon 07-02-2022 Creatinine [Mass/Vol] 1.41 mg/dL Critically high 0.55-1.02 [facility] Comment on above: Performed By: #### C A, CREA #### [facility] [address] [address] [address] Zuly Medina EGFR-AF GABONESE 44 mL/min/1.73m2 Critically low >=60 [facility] Comment on above: Performed By: #### C Frank, CREA #### [facility] [address] [address] [address] Zuly Medina EGFR-NON AF GABONESE 37 mL/min/1.73m2 Critically low >=60 [facility] Comment on above: Performed By: #### C Frank, CREA #### [facility] [address] [address] [address] Zuly Medina MRI LSPINE WO CONon [...] TESSA ESTEVES Date: 2022-06-02 07:58 Normal [facility] VC VENOUS REFLUX NOEL LMTon 0 05-30-2022 VC VENOUS REFLUX NOEL LMT Patient: AKIRA BUITRAGO Exam Date: 05/30/2022 : 1950 Gender:F Ordering : DR MIKO BURRIS . Admission #: [id number] Family : Order #: [id number] CLICK HERE TO VIEW EXAM RADIOLOGY REPORT [...] thrombus. Compressibility: Normal. Flow: Deep venous reflux. 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 Order #: [id number] CLICK HERE TO VIEW EXAM RADIOLOGY REPORT [...] Garcia M.D. on 05/27/2022 at 13:00 Normal [facility] XR LSPINE MIN 4 VIEWSon 05-07 [...] HOSEA GARCIA Date: 2022-05-23 14:32 Normal [facility] Covid-19 PCR (CVDTBH)on 05-07 SARS-CoV-2 (COVID-19) RNA MARY+probe Ql (Unsp spec) Not detected Normal NOT DETECTED [facility] Comment on above: Result Comment: This test is not yet approved or cleared by the [place] FDA. When there are no FDA-approved or cleared tests available, and other criteria are met, FDA can make tests available under an emergency access mechanism called an Emergency Use Authorization (EUA). The EUA for this test is supported by the [place] of Health and Human Service's (HHS's) declaration [...] SARS-CoV-2. Performed By: #### C VDTBH #### [facility] [address] [place] [address] Dr. Zuly Medina INFLUENZA A AND B AGon 05-22 [facility] SEE BELOW Normal [facility] Comment on above: Result Comment: Nega tive for Flu A protein angiten. Infection due to Flu A cannot be ruled out. Flu A angiten in the sample may be below the detection limit of the test. Performed By: #### I NFLUAB #### [facility] [address] [place] [address] Dr. Zuly [facility] SEE BELOW Normal [facility] Comment on above: Result Comment: Nega tive for Flu B protein antigen. Infection due to Flu B cannot be ruled out. Flu B antigen in the sample may be below the detection limit of the test. Performed By: #### I NFLUAB #### [facility] [address] [place] [address] Dr. Zuly Medina INFLUENZA A AG Negative Normal NEGATIVE SEE COMMENT [facility] Comment on above: Performed By: #### I NFLUAB #### [facility] [address] [place] [address] Dr. Zuly Medina INFLUENZA B AG Negative Normal NEGATIVE SEE COMMENT [facility] Comment on above: Performed By: #### I NFLUAB #### [facility] [address] [place] [address] Dr. Zuly Medina ECHOCARDIO M/2D COMPLETEon 0 05-14-2022 ECHOCARDIO M/2D COMPLETE Patient: AKIRA BUITRAGO Exam Date: 05/14/2022 : 1950 Gender:F Ordering : BROWNNany ALISHA Admission #: [id number] Family : DR MIKO BURRIS . Order #: [id number] CLICK HERE TO VIEW EXAM ECHOCARDIOGRAM REPORT [...] Garcia M.D. on 05/15/2022 at 18:51 Normal [facility] Office Visiton 05-14-2022 Follow-up visit [id number] Shirley Buitrago 1950 F Date Provider Department Center 05/14/2022 3848-JUANITA JENKINS [facility] No family history on file Level of Service:81852 MS OFFICE/OUTPATIENT ESTABLISHED MOD [facility] 30-39 MIN Reason for Visit and Comments: Hyperlipidemia [182] Valve Disorder [3372] Normal [facility] MG MAMM SCREEN 3D NOEL CADon 01-22-2022 MG MAMM SCREEN 3D NOEL CAD Patient: AKIRA BUITRAGODexter Exam Date: 01/22/2022 : 1950 Gender:F Ordering : DR MIKO BURRIS . Admission #: [id number] Family : Order #: [id number] CLICK HERE TO VIEW EXAM RADIOLOGY REPORT [...] lung cancer at age 59. LOCATION: [facility] BREAST COMPOSITION: Scattered areas fibroglandular density. [...] M.D. on 01/22/2022 at 14:36 Normal [facility] CALCIUMon 12-31-2021 Calcium [Mass/Vol] 10.0 mg/dL Normal 8.5-10.1 [facility] Comment on above: Performed By: #### Oliverio SIMS CA #### [facility] [address] [place] [address] Dr. Zuly Medina CREATININEon 12-31-2021 Creatinine [Mass/Vol] 1.33 mg/dL Critically high 0.55-1.02 [facility] Comment on above: Performed By: #### CHIDI MCDANIEL #### [facility] [address] [place] [address] Dr. Zuly Medina EGFR-AF GABONESE 48 mL/min/1.73m2 Critically low >=60 [facility] Comment on above: Performed By: #### CHIDI MCDANIEL #### [facility] [address] [place] [address] Dr. Zuly Medina EGFR-NON AF GABONESE 39 mL/min/1.73m2 Critically low >=60 [facility] Comment on above: Performed By: #### CHIDI MCDANIEL #### [facility] [address] [place] [address] Dr. Zuly Medina Covid-19 PCR (CVDTB)on 12-06 SARS-CoV-2 (COVID-19) RNA MARY+probe Ql (Unsp spec) Not detected Normal NOT DETECTED [facility] Comment on above: Result Comment: This test is not yet approved or cleared by the [place] FDA. When there are no FDA-approved or cleared tests available, and other criteria are met, FDA can make tests available under an emergency access mechanism called an Emergency Use Authorization (EUA). The EUA for this test is supported by the [place] [employer] of Health and Human Service's (HHS's) declaration [...] SARS-CoV-2. Performed By: #### C VDTBH #### [facility] [address] [place] [address] Dr. Zuly Medina T4, T3U, FTI LABCORPon 11-15 Free Thyroxine Index 2.7 Normal 1.2-4.9 [facility] Comment on above: Performed By: #### C VDTBH #### [facility] [address] [place] [address] Dr. Zuly Medina T3 Uptake 32 % Normal 24-39 [facility] Comment on above: Performed By: #### C VDTBH #### [facility] [address] [place] [address] Dr. Zuly Medina T4 [Mass/Vol] 8.5 ug/dL Normal 4.5-12.0 [facility] Comment on above: Performed By: #### C VDTBH #### [facility] [address] [place] [address] Dr. Zuly Medina VIT D 25-OH LABCORPon 2021 Vitamin D, 25-Hydroxy 114.0 ng/mL Critically high 30.0-100.0 [facility] Comment on above: Result Comment: Jenny min D deficiency has been defined by the [place] of Medicine and an Endocrine Society practice guideline as a level of serum 25-OH vitamin D less than 20 ng/mL (1,2). The Endocrine Society went on to further define vitamin D insufficiency as a level between 21 and 29 ng/mL (2). 1. IOM ([place] of Medicine). 2010. Dietary reference intakes for calcium and D. Steve [place]: The National Academies Press. 2. Anel MF, Chandrika NC, Ronaldo MCCALLUM, et al. Evaluation, treatment, and prevention of vitamin D deficiency: an Endocrine Society clinical practice guideline. JCEM. 2010; 96(7):1911-30. Performed By: #### V ITADLC #### [facility] [address] [place] [address] Dr. Zuly Medina CBC AUTO DIFFon 11-14-2021 BASO # 0.0 103/ul Normal 0.0-0.1 [facility] Comment on above: Performed By: #### Oliverio SIMS, CA #### [facility] [address] [place] [address] Dr. Zuly Medina Basophils/100 WBC (Bld) 0.4 % Normal 0.2-2.0 [facility] Comment on above: Performed By: #### Oliverio SIMS, CA #### [facility] [address] [place] [address] Dr. Zuly Medina EO # 0.3 103/ul Normal 0.0-0.7 [facility] Comment on above: Performed By: #### Oliverio SIMS, CA #### [facility] [address] [place] [address] Dr. Zuly Medina Eosinophils/100 WBC (Bld) 4.1 % Normal 0.9-7.0 [facility] Comment on above: Performed By: #### Oliverio SIMS, CA #### [facility] [address] [place] [address] Dr. Zuly Medina Erythrocyte distribution width (RBC) [Ratio] 14.1 % Normal 11.0-15.0 [facility] Comment on above: Performed By: #### Oliverio SIMS, CA #### [facility] [address] [place] [address] Dr. Zuly Medina Hematocrit (Bld) [Volume fraction] 36.0 % Normal 36.0-48.0 [facility] Comment on above: Performed By: #### Oliverio SIMS, CA #### [facility] [address] [place] [address] Dr. Zuly Medina Hemoglobin (Bld) [Mass/Vol] 11.6 g/dL Critically low 12.0-16.0 [facility] Comment on above: Performed By: #### CHIDI MCDANIEL #### [facility] [address] [place] [address] Dr. Zuly Medina IG # 0.01 10e3/ul Normal 0.00-0.03 [facility] Comment on above: Performed By: #### CHIDI MCDANIEL #### [facility] [address] [place] [address] Dr. Zuly Medina IG % 0.1 % Normal 0.0-0.5 [facility] Comment on above: Performed By: #### CHIDI MCDANIEL #### [facility] [address] [place] [address] Dr. Zuly Medina LYMPH # 1.3 103/ul Normal 1.2-3.8 [facility] Comment on above: Performed By: #### CHIDI MCDANIEL #### [facility] [address] [place] [address] Dr. Zuly Medina Lymphocytes/100 WBC (Bld) 19.3 % Critically low 20.5-60.0 [facility] Comment on above: Performed By: #### CHIDI MCDANIEL #### [facility] [address] [place] [address] Dr. Zuly Medina MANUAL DIFF REQ NO Normal [facility] Comment on above: Performed By: #### CHIDI MCDANIEL #### [facility] [address] [place] [address] Dr. Zuly Medina MCH (RBC) [Entitic mass] 31.4 pg Normal 26.7-34.0 [facility] Comment on above: Performed By: #### CHIDI MCDANIEL #### [facility] [address] [place] [address] Dr. Zuly Medina MCHC (RBC) [Mass/Vol] 32.2 g/dL Normal 29.9-35.2 [facility] Comment on above: Performed By: #### CHIDI MCDANIEL #### [facility] [address] [place], [place] [id number] Dr. Zuly Medina MCV (RBC) [Entitic vol] 97.6 fL Normal 81.0-99.0 [facility] Comment on above: Performed By: #### CHIDI MCDANIEL #### [facility] [address] [place] [address] Dr. Zuly Medina MONO # 0.8 103/ul Normal 0.3-0.8 [facility] Comment on above: Performed By: #### CHIDI MCDANIEL #### [facility] [address] [place] [address] Dr. Zuly Medina Monocytes/100 WBC (Bld) 11.8 % Normal 1.7-12.0 [facility] Comment on above: Performed By: #### CHIDI MCDANIEL #### [facility] [address] [place] [address] Dr. Zuly Medina NEUT # 4.4 103/ul Normal 1.4-6.5 [facility] Comment on above: Performed By: #### CHIDI MCDANIEL #### [facility] [address] [place] [address] Dr. Zuly Medina Neutrophils/100 WBC (Bld) 64.3 % Normal 43.0-75.0 [facility] Comment on above: Performed By: #### CHIDI MCDANIEL #### [facility] [address] [place] [address] Dr. Zuly Medina Platelet mean volume (Bld) [Entitic vol] 10.1 fL Normal 9.5-13.5 [facility] Comment on above: Performed By: #### CHIDI MCDANIEL #### [facility] [address] [place] [address] Dr. Zuly Medina PLT 311 103/ul Normal 150-450 [facility] Comment on above: Performed By: #### CHIDI MCDANIEL #### [facility] [address] [place] [address] Dr. Zuly Medina RBC 3.69 106/ul Critically low 4.20-5.40 [facility] Comment on above: Performed By: #### Oliverio SIMSCHIDI #### [facility] [address] [address] [address] Zuly Medina WBC 6.9 103/ul Normal 4.0-11.0 [facility] Comment on above: Performed By: #### C CHIDI SIMS #### [facility] [address] [address] [address] Zuly Medina GLYCOHEMOGLOBIN A1Con 2021 ADA RECOMMENDATION SEE BELOW Normal [facility] Comment on above: Result Comment: ADA RECOMMENDED LIMIT 4.0 - 6.0 ADA THERAPEUTIC TARGET < 7.0 ACTION SUGGESTED > 7.0 Performed By: #### A 1C #### [facility] [address] [address] [address] Zuly Medina Glucose [Mass/Vol] 103 mg/dL Normal [facility] Comment on above: Performed By: #### A 1C #### [facility] [address] [place] [address] Dr. Zuly Medina HbA1c (Bld) [Mass fraction] 5.2 % Normal 4.5-6.2 [facility] Comment on above: Performed By: #### A 1C #### [facility] [address] [address] [address] Zuly Medina IRONon 11-14-2021 Iron [Mass/Vol] 60.0 ug/dL Normal 50.0-170.0 [facility] Comment on above: Performed By: #### C VDTB #### [facility] [address] [place] [address] Dr. Zuly Medina LIPID PROFILEon 11-14-2021 CHOL-HDL RATIO NORM SEE BELOW Normal [facility] Comment on above: Result Comment: 3.3 - 4.4 LOW RISK 4.4 - 7.1 AVERAGE RISK 7.1 - 11.0 MODERATE RISK >11.0 HIGH RISK Performed By: #### CHIDI MCDANIEL #### [facility] [address] [place] [address] Dr. Zuly Medina Cholesterol [Mass/Vol] 145 mg/dL Normal <=200 [facility] Comment on above: Performed By: #### CHIDI MCDANIEL #### [facility] [address] [address] [address] Zuly Medina Cholesterol in HDL [Mass/Vol] 65 mg/dL Critically high 40-60 [facility] Comment on above: Performed By: #### Oliverio SIMS CA #### [facility] [address] [address] [address] Zuly Medina Cholesterol in LDL [Mass/Vol] 72.2 mg/dL Normal [facility] Comment on above: Performed By: #### Oliverio SIMS CA #### [facility] [address] [address] [address] Zuly Medina Cholesterol.total/Ch olesterol in HDL [Mass ratio] 2.2 {ratio} Normal [facility] Comment on above: Performed By: #### Oliverio SIMS CA #### [facility] [address] [place] [address] Dr. Zuly Medina HDL NORMAL > or = 60 mg/dl - LO W CARDIOVASCULAR RISK <40 mg/dl - HIGH CARDIOVASCULAR RISK Normal [facility] Comment on above: Performed By: #### CHIDI MCDANIEL #### [facility] [address] [address] [address] Zuly Medina LDL CALC NORMAL SEE BELOW Normal [facility] Comment on above: Result Comment: <100 mg/dl OPTIMAL 100 - 129 mg/dl NEAR OR ABOVE OPTIMAL 130 - 159 mg/dl BORDERLINE HIGH 160 - 189 mg/dl HIGH >190 mg/dl VERY HIGH Performed By: #### CHIDI MCDANIEL #### [facility] [address] [address] [address] Zuly Medina Triglyceride [Mass/Vol] 39 mg/dL Normal <=150 [facility] Comment on above: Performed By: #### CHIDI MCDANIEL #### [facility] [address] [place] [address] Dr. Zuly Medina VLDL CALC 7.8 mg/dL Normal [facility] Comment on above: Performed By: #### CHIDI MCDANIEL #### [facility] [address] [address] [address] Zuly Medina PROF 14(COMP METB)on 022 Albumin [Mass/Vol] 3.8 g/dL Normal 3.4-5.0 [facility] Comment on above: Performed By: #### CHIDI MCDANIEL #### [facility] [address] [place] [address] Dr. Zuly Medina Albumin/Globulin [Mass ratio] 1.4 {ratio} Normal [facility] Comment on above: Performed By: #### CHIDI MCDANIEL #### [facility] [address] [address] [address] Zuly Medina ALP [Catalytic activity/Vol] 41 U/L Critically low 46-116 [facility] Comment on above: Performed By: #### CHIDI MCDANIEL #### [facility] [address] [place] [address] Dr. Zuly Medina ALT [Catalytic activity/Vol] 20 U/L Normal 14-59 [facility] Comment on above: Performed By: #### CHIDI MCDANIEL #### [facility] [address] [place] [address] Dr. Zuly Medina Anion gap [Moles/Vol] 8.2 mmol/L Normal [facility] Comment on above: Performed By: #### CHIDI MCDANIEL #### [facility] [address] [place] [address] Dr. Zuly Medina AST [Catalytic activity/Vol] 25 U/L Normal 15-37 [facility] Comment on above: Performed By: #### CHIDI MCDANIEL #### [facility] [address] [address] [address] Zuly Medina Bilirubin [Mass/Vol] 0.4 mg/dL Normal 0.2-1.0 [facility] Comment on above: Performed By: #### CHIDI MCDANIEL #### [facility] [address] [address] [address] Zuly Medina Calcium [Mass/Vol] 10.1 mg/dL Normal 8.5-10.1 [facility] Comment on above: Performed By: #### CHIDI MCDANIEL #### [facility] [address] [address] [address] Zuly Medina Chloride [Moles/Vol] 104 mmol/L Normal 98-107 [facility] Comment on above: Performed By: #### Oliverio SIMS, CA #### [facility] [address] [place] [address] Dr. Zuly Medina CO2 [Moles/Vol] 31.6 mmol/L Normal 21.0-32.0 [facility] Comment on above: Performed By: #### Oliverio SIMS, CA #### [facility] [address] [place] [address] Dr. Zuly Medina Creatinine [Mass/Vol] 1.44 mg/dL Critically high 0.55-1.02 [facility] Comment on above: Performed By: #### Oliverio SIMS CA #### [facility] [address] [place] [address] Dr. Zuly Medina EGFR-AF GABONESE 43 mL/min/1.73m2 Critically low >=60 [facility] Comment on above: Performed By: #### Oliverio SIMS, CA #### [facility] [address] [place] [address] Dr. Zuly Medina EGFR-NON AF GABONESE 36 mL/min/1.73m2 Critically low >=60 [facility] Comment on above: Performed By: #### Oliverio SIMS CA #### [facility] [address] [place] [address] Dr. Zuly Medina Globulin (S) [Mass/Vol] 2.8 g/dL Normal [facility] Comment on above: Performed By: #### Oliverio SIMS, CA #### [facility] [address] [place] [address] Dr. Zuly Medina Glucose [Mass/Vol] 100 mg/dL Normal 74-106 [facility] Comment on above: Performed By: #### Oliverio SIMS, CA #### [facility] [address] [place] [address] Dr. Zuly Medina Potassium [Moles/Vol] 3.8 mmol/L Normal 3.5-5.1 [facility] Comment on above: Performed By: #### Oliverio SIMS, CA #### [facility] [address] [address] [address] Zuly Medina Protein [Mass/Vol] 6.6 g/dL Normal 6.4-8.2 [facility] Comment on above: Performed By: #### C BETHANY, CA #### [facility] [address] [address] [address] Zuly Medina Sodium [Moles/Vol] 140 mmol/L Normal 136-145 [facility] Comment on above: Performed By: #### Oliverio SIMS, CA #### [facility] [address] [place] [address] Dr. Zuly Medina Urea nitrogen [Mass/Vol] 28.0 mg/dL Critically high 7.0-18.0 [facility] Comment on above: Performed By: #### Oliverio SIMS, CA #### [facility] [address] [place] [address] Dr. Zuly Medina Urea nitrogen/Creatinine [Mass ratio] 19.4 mg/mg Normal [facility] Comment on above: Performed By: #### Oliverio SIMS, CA #### [facility] [address] [place] [address] Dr. Zuly Medina TSHon 11-14-2021 TSH 1.676 uIU/mL Normal 0.358-3.740 [facility] Comment on above: Performed By: #### Oliverio SIMS, CA #### [facility] [address] [place] [address] Dr. Zuly Medina [facility]05 SARS-CoV-2 (COVID-19) RNA MARY+probe Ql (Unsp spec) Not detected Normal NOT DETECTED [facility] Comment on above: Result Comment: When [...] for this test is supported by the [place] of Health and Human Service's declaration that [...] used). Performed By: #### C VDTBH #### [facility] [address] [place] [address] Dr. Zuly Medina CREATININEon 09-18-2021 Creatinine [Mass/Vol] 1.33 mg/dL Critically high 0.55-1.02 [facility] Comment on above: Performed By: #### C BETHANY, CA #### [facility] [address] [place] [address] Dr. Zuly Medina EGFR-AF GABONESE 48 mL/min/1.73m2 Critically low >=60 [facility] Comment on above: Performed By: #### C BETHANY, CA #### [facility] [address] [place] [address] Dr. Zuly Medina EGFR-NON AF GABONESE 39 mL/min/1.73m2 Critically low >=60 [facility] Comment on above: Performed By: #### [place] #### [facility] [address] [place] [address] Dr. Zuly Medina MRI BRAIN WO W [...] HOSEA GARCIA Date: 2021-09-18 16:23 Normal [facility]05 SARS-CoV-2 (COVID-19) RNA MARY+probe Ql (Unsp spec) Not detected Normal NOT DETECTED [facility] Comment on above: Result Comment: This test is not yet approved or cleared by the [place] FDA. When there are no FDA-approved or cleared tests available, and other criteria are met, FDA can make tests available under an emergency access mechanism called an Emergency Use Authorization (EUA). The EUA for this test is supported by the [employer] of Health and Human Service's (HHS's) declaration [...] consistent with SARS-CoV-2. Performed By: #### [facility] #### [facility] [address] [place] [address] Dr. Zuly Medina SYMPTOMATIC COVID-19 ANTIGEN on 08-23-2021 EUA Statement SEE BELOW Normal [facility] Comment on above: Result Comment: This [...] sooner. Performed By: #### C VDTB #### [facility] [address] [place] [address] Dr. Zuly Medina SARS-CoV-2 (COVID-19) RNA MARY+probe Ql (Unsp spec) Negative Normal NEGATIVE [facility] Comment on above: Performed By: #### C VDTB #### [facility] [address] [place] [address] Dr. Zuly Medina Q - Diptheria/Tetanus Abon 0 08-09-2021 DIPHTHERIA ANTITOXOID 0.25 IU/mL Normal [facility] Comment on above: Order Comment: [facility] Testing performed at: [facility], [facility], [address] [facility] , [place], [place], , Counselor/Art Therapist: Sahil Dyson M.D.,PhD [facility] Collection Date/Time: [facility] [...] analytical performance characteristics have been determined by [employer] [place]. It has not been cleared or approved by the U.S. Food and Drug Administration. This assay has been validated pursuant to the CLIA regulations and is used for clinical purposes. Performed By: #### 2 4729W, 78602L, 62142, 38738D, 99007W, 89877Q #### [facility] [address] [place] [address] TETANUS ANTITOXOID 4.67 IU/mL Normal [facility] Comment on above: Order Comment: [facility] Testing performed at: [facility], [address] , [place], [place], , Counselor/Art Therapist: Sahil Dyson M.D.,PhD [facility] Collection Date/Time: [facility] [...] analytical performance characteristics have been determined by [employer] [place]. It has not been cleared or approved by the U.S. Food and Drug Administration. This assay has been validated pursuant to the CLIA regulations and is used for clinical purposes. Performed By: #### 2 4729W, 23325K, 38632, 60477V, 13686Z, 11243Z #### [facility] [address] [place] [address] Q - IGA,SERUMon 08-09-2021 IMMUNOGLOBULIN A 125 mg/dL Normal 70-320 [facility] Comment on above: Order Comment: [facility] Testing performed at: [facility], [employer] [facility], [address], [address] [place] [address], [address], Counselor/Art Therapist: Thony Haley MD [facility] Collection Date/Time: [facility] Results Received Date/Time: [facility] Reported Date/Time: Performed By: #### 2 4729W, 61832D, 00537, 72786N, 35418I, 38865H #### [facility] [address] [place] [address] Q - IGE,SERUMon 08-09-2021 IMMUNOGLOBULIN E 44 kU/L Normal [facility] Specialist Comment on above: Order Comment: [facility] Testing performed at: [employer], [employer] [facility], [address] , [address] [place] [address], [address] [place] [address], Counselor/Art Therapist: Thony Haley MD [facility] Collection Date/Time: [facility] Results Received Date/Time: [facility] Reported Date/Time: Performed By: #### 2 4729W, 22620S, 42229, 73973X, 06899E, 00581Z #### [facility] [address] [place] [address] Q - IGG,SERUMon 08-09-2021 IMMUNOGLOBULIN G 895 mg/dL Normal 600-1540 [facility] Comment on above: Order Comment: [facility] performed at: [employer], [employer] [facility], [address] , [address] [place] [address], [address] [place] [address], Counselor/Art Therapist: Thony Haley MD [facility] Date/Time: [facility] Results Received Date/Time: [facility] Reported Date/Time: Performed By: #### 2 4729W, 05304O, 33513, 38172S, 36379H, 31063M #### [facility] [address] [place] [address] Q - IGM,SERUMon 08-09-2021 IMMUNOGLOBULIN M 158 mg/dL Normal 50-300 [facility]inator Comment on above: Order Comment: [facility] Testing performed at: [employer] [facility], [address], [address] [place] [address], [address] [place] [address], Counselor/Art Therapist: Thony Haley MD [facility] Collection Date/Time: [facility] Results Received Date/Time: [facility] Reported Date/Time: Performed By: #### 2 4729W, 42317B, 96209, 61388Q, 33944D, 85516U #### [facility] [address] [place] [address] Q - Strep pneumo Ab 23 serot ypeson 08-09-2021 SEROTYPE 1 (1) 9.5 Normal [facility] Specialist Comment on above: Order Comment: [facility] Testing performed at: [facility], [employer] [facility],, [address] [place], [place], , Counselor/Art Therapist: Osiris Galdamez MD,PhD,BHANU [facility] Collection Date/Time: [facility] Results Received Date/Time: [facility] Reported Date/Time: Performed By: #### 2 4729W, 50555U, 16631, 93286Z, 07288B, 44167Q #### [facility] [address] [place] [address] SEROTYPE 12 (12F) 1.0 Normal [facility] Comment on above: Order Comment: [facility] Testing performed at: [facility], [employer] [facility],, [facility] [place], , Counselor/Art Therapist: Osiris Galdamez MD,PhD,BHANU [facility] Collection Date/Time: [facility] Results Received Date/Time: [facility] Reported Date/Time: Performed By: #### 2 4729W, 58236E, 84590, 09877W, 44799O, 45361I #### [facility] [address] [place] [address] SEROTYPE 14 (14) 3.[address] [facility] Comment on above: Order Comment: [facility] performed at: [facility], [employer] [facility],, [address] [place], [address], Counselor/Art Therapist: Osiris Galdamez MD,PhD,BHANU [facility] Collection Date/Time: [facility] Results Received Date/Time: [facility] Reported Date/Time: Performed By: #### 2 4729W, 44146P, 27740, 35755R, 36731O, 74687M #### [facility] [address] [place] [address] SEROTYPE 17 (17F) 1.2 Normal [facility] Comment on above: Order Comment: [facility] Testing performed at: [facility], [employer] [facility],, [address] [place] [address], , Counselor/Art Therapist: Osiris Galdamez MD,PhD,BHANU [facility] Collection Date/Time: [facility] Results Received Date/Time: [facility] Reported Date/Time: Performed By: #### 2 4729W, 22978R, 39304, 71591C, 31187S, 49138N #### [facility] [address] [place] [address] SEROTYPE 19 (19F) 2.8 Normal [facility] Comment on above: Order Comment: [facility] Testing performed at: [facility], [employer] [facility],, [address] [place] [address], , Counselor/Art Therapist: Osiris Galdamez MD,PhD,BHANU [facility] Collection Date/Time: [facility] Results Received Date/Time: [facility] Reported Date/Time: Performed By: #### 2 4729W, 11526O, 68223, 16070H, 42610B, 64903B #### [facility] [address] [place] [address] SEROTYPE 2 (2) 7.2 Normal [facility] Rental Coordinator Comment on above: Order Comment: [facility] Testing performed at: [facility], [employer] [facility],, [address] [place] [address], , Counselor/Art Therapist: Osiris Galdamez MD,PhD,BHANU [facility] Collection Date/Time: [facility] Results Received Date/Time: [facility] Reported Date/Time: Performed By: #### 2 4729W, 46057L, 75380, 62053Q, 58985T, 39081U #### [facility] [address] [place] [address] SEROTYPE 20 (20) 3.4 Normal [facility] Comment on above: Order Comment: [facility] Testing performed at: [facility], [employer],, [address] [place] [address], , Counselor/Art Therapist: Osiris Galdamez MD,PhD,BHANU [facility] Collection Date/Time: [facility] Results Received Date/Time: [facility] Reported Date/Time: Performed By: #### 2 4729W, 36918X, 56057, 41933P, 92403N, 06176H #### [facility] [address] [place] [address] SEROTYPE 22 (22F) 5.9 [facility] Comment on above: Order Comment: [facility] Testing performed at: [facility], [employer],, [address] [place] [address], , Counselor/Art Therapist: Osiris Galdamez MD,PhD,BHANU [facility] Collection Date/Time: [facility] Results Received Date/Time: [facility] Reported Date/Time: Performed By: #### 2 4729W, 69196G, 64218, 37713S, 27672I, 30491V #### [facility] [address] [place] [address] SEROTYPE 23 (23F) 5.2 [facility] Comment on above: Order Comment: [facility] Testing performed at: [facility], [employer],, [address] [place] [address], , Counselor/Art Therapist: Osiris Galdamez MD,PhD,BHANU [facility] Collection Date/Time: [facility] Results Received Date/Time: [facility] Reported Date/Time: Performed By: #### 2 4729W, 49752K, 83062, 03646N, 37136U, 24405C #### [facility] [address] [place] [address] SEROTYPE 26 (6B) 18.8 Normal [facility] Coordinator Comment on above: Order Comment: [facility] Testing performed at: [place], [employer] [facility],, [address] [place] [address], , Counselor/Art Therapist: Osiris Galdamez MD,PhD,BHANU [facility] Collection Date/Time: [facility] Results Received Date/Time: [facility] Reported Date/Time: Performed By: #### 2 4729W, 94443V, 39431, 12304N, 52260P, 88568N #### [facility] [address] [place] [address] SEROTYPE 3 (3) 1.3 Normal [facility] Rental Coordinator Comment on above: Order Comment: [facility] Testing performed at: [place], [employer] [facility],, [address] [place] [address], , Counselor/Art Therapist: Osiris Galdamez MD,PhD,BHANU [facility] Collection Date/Time: [facility] Results Received Date/Time: [facility] Reported Date/Time: Performed By: #### 2 4729W, 72145U, 06522, 90680D, 32652T, 47838M #### [facility] [address] [place] [address] SEROTYPE 34 (10A) 0.9 Normal [facility] Specialist Comment on above: Order Comment: [facility] Testing performed at: [facility], [employer] [facility],, [address] [place] [address], , Counselor/Art Therapist: Osiris Galdamez MD,PhD,BHANU [facility] Collection Date/Time: [facility] Results Received Date/Time: [facility] Reported Date/Time: Performed By: #### 2 4729W, 44955G, 10257, 61317Z, 78535I, 10438B #### [facility] [address] [place] [address] SEROTYPE 4 (4) <0.3 Normal [facility] Rental Coordinator Comment on above: Order Comment: [facility] Testing performed at: [facility], [employer] [facility],, [address] [place] [address], , Counselor/Art Therapist: Osiris Galdamez MD,PhD,BHANU [facility] Collection Date/Time: [facility] Results Received Date/Time: [facility] Reported Date/Time: Performed By: #### 2 4729W, 55888F, 33431, 36272V, 67009C, 99565W #### [facility] [address] [place] [address] SEROTYPE 43 (11A) 1.1 Normal [facility] Comment on above: Order Comment: [facility] Testing performed at: [facility], [employer] [facility],, [address] [place], [place], , Counselor/Art Therapist: Osiris Galdamez MD,PhD,BHANU [facility] Collection Date/Time: [facility] Results Received Date/Time: [facility] Reported Date/Time: Performed By: #### 2 4729W, 68504Z, 45256, 65740R, 56756J, 92209U #### [facility] [address] [place] [address] SEROTYPE 5 (5) 2.3 Normal [facility] Specialist Comment on above: Order Comment: [facility] Testing performed at: [facility], [employer],, [address] [place], [place], , Counselor/Art Therapist: Osiris Galdamez MD,PhD,BHANU [facility] Collection Date/Time: [facility] Results Received Date/Time: [facility] Reported Date/Time: Performed By: #### 2 4729W, 38312P, 53857, 56799L, 93964Q, 81438P #### [facility] [address] [place] [address] SEROTYPE 51 (7F) 8.4 Normal [facility] Comment on above: Order Comment: [facility] Testing performed at: [facility], [facility],, [address] [place], [place], , Counselor/Art Therapist: Osiris Galdamez MD,PhD,BHANU [facility] Collection Date/Time: [facility] Results Received Date/Time: [facility] Reported Date/Time: Performed By: #### 2 4729W, 28061A, 29236, 27437I, 55114R, 14868W #### [facility] [address] [place] [address] SEROTYPE 54 (15B) 2.3 Normal [facility] Comment on above: Order Comment: [facility] Testing performed at: [facility], [facility],, [address] [place], [place], , Counselor/Art Therapist: Osiris Galdamez MD,PhD,BHANU [facility] Collection Date/Time: [facility] Results Received Date/Time: [facility] Reported Date/Time: [id number] Performed By: #### 2 4729W, 36750R, 61454, 77859C, 59786P, 96741P #### [facility] [address] [place] [address] SEROTYPE 56 (18C) 18.7 Normal [facility] Comment on above: Order Comment: [facility] Testing performed at: [facility], [employer] [facility],, [address] [place], [place], , Counselor/Art Therapist: Osiris Galdamez MD,PhD,BHANU [facility] Collection Date/Time: [facility] Results Received Date/Time: [facility] Reported Date/Time: Performed By: #### 2 4729W, 35855J, 81065, 14047N, 46993A, 76681G #### [facility] [address] [place] [address] SEROTYPE 57 (19A) 15.6 Normal [facility] Comment on above: Order Comment: [facility] Testing performed at: [facility], [employer] [facility] [facility],, [facility] [place], [place], , Counselor/Art Therapist: Osiris Galdamez MD,PhD,BHANU [facility] Collection Date/Time: [facility] Results Received Date/Time: [facility] Reported Date/Time: Performed By: #### 2 4729W, 42757V, 90494, 18849D, 45594T, 96220H #### [facility] [address] [place] [address] SEROTYPE 68 (9V) 2.1 Normal [facility] Comment on above: Order Comment: [facility] Testing performed at: [facility], [facility] [facility],, [address] [place], [place], , Counselor/Art Therapist: Osiris Galdamez MD,PhD,BHANU [facility] Collection Date/Time: [facility] Results Received Date/Time: [id number] [facility] Reported Date/Time: Performed By: #### 2 4729W, 26243I, 55625, 34853W, 01379B, 66668N #### [facility] [address] [place] [address] SEROTYPE 70 (33F) 28.9 Normal [facility] [place] [facility] Coordinator Comment on above: Order Comment: [facility] Testing performed at: , [facility],, [address] [place], [address], Counselor/Art Therapist: Osiris Galdamez MD,PhD,BHANU [facility] Collection Date/Time: Quest [...] serotype-specific titers may have less robust responses. [employer] uses a multi-analyte immunodetection (MAID) method. The method employs the [employer] flow cytometric system which measures multiple analytes [...] analytical performance characteristics have been determined by [employer]. It has not been cleared or approved by FDA. This assay has been validated pursuant to the CLIA regulations and used for clinical purposes. For additional information, please refer to http://education.[employer]/faq/OXG950 (This link is being provided for informational/ educational purposes only.) Performed By: #### 2 4729W, 19513U, 30059, 69402J, 52415T, 45662R #### [facility] [address] [place] [address] SEROTYPE 8 (8) 14.6 Normal [facility] Specialist Comment on above: Order Comment: [facility] Testing performed at: [facility],, [address] [place] [address], , Counselor/Art Therapist: Osiris Galdamez MD,PhD,BHANU [facility] Collection Date/Time: [facility] Results Received Date/Time: [facility] Reported Date/Time: Performed By: #### 2 4729W, 25292F, 64101, 37622U, 23469V, 53978H #### [facility] [address] [place] [address] SEROTYPE 9 (9N) 1.0 Normal [facility] Specialist Comment on above: Order Comment: [facility] Testing performed at: [employer] [facility] [facility],, [address] [place] [address], , Counselor/Art Therapist: Osiris Galdamez MD,PhD,BHANU [facility] Collection Date/Time: [facility] Results Received Date/Time: [facility] Reported Date/Time: Performed By: #### 2 4729W, 20742T, 22245, 00575D, 94159Y, 04317B #### [facility] [address] [place] [address] CT SINUSES WO CONon 08-06-[address] [...] by: HOSEA GARCIA Date: 2021-08-05 08:48 Normal [facility] MG MAMM DX 3D LT CADon 08-05 MG MAMM DX 3D LT CAD Patient: AKIRA BUITRAGO Exam Date: 08/05/2021 : 1950 Gender:F Ordering : DR MIKO BURRIS . Admission #: [id number] Family : Order #: [id number] CLICK HERE TO VIEW EXAM RADIOLOGY REPORT [...] lung cancer at age 59. LOCATION: [facility] BREAST COMPOSITION: Scattered areas fibroglandular density. [...] M.D. on 08/05/2021 at 09:25 Normal [facility] US BREAST LEFT LIMITEDon US BREAST LEFT LIMITED Patient: AKIRA BUITRAGO Exam Date: 08/05/2021 : 1950 Gender:F Ordering : DR MIKO BURRIS . Admission #: [id number] Family : Order #: [id number] CLICK HERE TO VIEW EXAM RADIOLOGY REPORT [...] lung cancer at age 59. LOCATION: [facility] BREAST COMPOSITION: Scattered areas fibroglandular density. [...] Hosea Garcia M.D. on 08/05/2021 at 09:25 [facility] Vital Signs Date Time Vital Sign Value Performing Clinician Davon longoria 02-11-2024 08:33-0500 Body height 160 cm Renny Orlando DPM Work Phone: [facility] 02-11-2024 08:33-0500 Body mass index (BMI) [Ratio] 22.85 kg/m2 Renny Orlando DPM Work Phone: [facility] 02-11-2024 08:33-0500 Body weight 58.51 kg Renny Brown DPM Work Phone: [facility] 02-11-2024 08:33-0500 Diastolic blood pressure 80 mm[Hg] Renny Brown DPM Work Phone: [facility] 02-11-2024 08:33-0500 Heart rate 81 /min Renny Brown DPM Work Phone: [facility] 02-11-2024 08:33-0500 Systolic blood pressure 126 mm[Hg] Renny Orlando DPM Work Phone: [facility] 01-28-2024 08:34-0400 Body height 160 cm Renny Brown DPM Work Phone: [facility] 01-28-2024 08:34-0400 Body mass index (BMI) [Ratio] 22.85 kg/m2 Renny Brown DPM Work Phone: [facility] 01-28-2024 08:34-0400 Body weight 58.51 kg Renny Orlando DPM Work Phone: [facility] 01-28-2024 08:34-0400 Diastolic blood pressure 80 mm[Hg] Renny Regino DPM Work Phone: [facility] 01-28-2024 08:34-0400 Heart rate 81 /min Renny Orlando DPM Work Phone: [facility] 01-28-2024 08:34-0400 Systolic blood pressure 128 mm[Hg] Renny Brown DPM Work Phone: [facility] 01-14-2024 08:38-0400 Body height 160 cm Rennyasad Orlando DPM Work Phone: [facility] 01-14-2024 08:38-0400 Body mass index (BMI) [Ratio] 22.85 kg/m2 Renny Orlando DPM Work Phone: [facility] 01-14-2024 08:38-0400 Body weight 58.51 kg Renny Orlando DPM Work Phone: [facility] 01-14-2024 08:38-0400 Respiratory rate 18 /min Renny Regino DPM Work Phone: [facility] 12-31-2023 09:01-0400 Body height 160 cm Renny Orlando DPM Work Phone: [facility] 12-31-2023 09:01-0400 Body mass index (BMI) [Ratio] 22.85 kg/m2 Renny Brown DPM Work Phone: [facility] 12-31-2023 09:01-0400 Body weight 58.51 kg Renny Brown DPM Work Phone: [facility] 12-31-2023 09:01-0400 Diastolic blood pressure 75 mm[Hg] Renny Orlando DPM Work Phone: [facility] 12-31-2023 09:01-0400 Heart rate 75 /min Renny Orlando DPM Work Phone: [facility] 12-31-2023 09:01-0400 Respiratory rate 18 /min Renny Regino DPM Work Phone: [facility] 12-31-2023 09:01-0400 Systolic blood pressure 126 mm[Hg] Renny Orlando DPM Work Phone: [facility] 12-17-2023 08:41-0400 Body height 160 cm Renny Orlando DPM Work Phone: [facility] 12-17-2023 08:41-0400 Body mass index (BMI) [Ratio] 22.85 kg/m2 Renny Orlando DPM Work Phone: [facility] 12-17-2023 08:41-0400 Body weight 58.51 kg Renny Brown DPM Work Phone: [facility] 12-17-2023 08:41-0400 Diastolic blood pressure 74 mm[Hg] Renny Orlando DPM Work Phone: [facility] 12-17-2023 08:41-0400 Heart rate 82 /min Renny Orlando DPM Work Phone: [facility] 12-17-2023 08:41-0400 Systolic blood pressure 125 mm[Hg] Renny Orlando DPM Work Phone: [facility] 12-15-2023 08:08-0400 Body height 160 cm Lolis Pleitez [employer]ENDANT Work Phone: [facility] 12-15-2023 08:08-0400 Body mass index (BMI) [Ratio] 22.82 kg/m2 Lolis Pleitez [employer] ATTENDANT Work Phone: [facility] 12-15-2023 08:08-0400 Body weight 58.42 kg Lolis Pleitez [employer] ATTENDANT Work Phone: [facility] 12-15-2023 08:08-0400 Diastolic blood pressure 70 mm[Hg] Lolis Pleitez [employer] ATTENDANT Work Phone: [facility] 12-15-2023 08:08-0400 Systolic blood pressure 118 mm[Hg] Lolis Pleitez [employer] ATTENDANT Work Phone: [facility] 12-03-2023 09:18-0400 Body height 160 cm Renny Orlando DPM Work Phone: [facility] 12-03-2023 09:18-0400 Body mass index (BMI) [Ratio] 22.5 kg/m2 Renny Orlando DPM Work Phone: [facility] 12-03-2023 09:18-0400 Body weight 57.61 kg Renny Orlando DPM Work Phone: [facility] 12-03-2023 09:18-0400 Diastolic blood pressure 79 mm[Hg] Renny Orlando DPM Work Phone: [facility] 12-03-2023 09:18-0400 Heart rate 78 /min Renny Orlando DPM Work Phone: [facility] 12-03-2023 09:18-0400 Systolic blood pressure 128 mm[Hg] Renny Orlando DPM Work Phone: [facility] Healthcare Encounters Encounter Date Encounter Type [...] Start: 02-11-2024 End: 02-11-2024 Bamboo flowsheet Renny Orlando DPM Work Phone: [facility] Start: 02-11-2024 End: 02-11-2024 Bamboo flowsheet Renny Frank Regino DPM Work Phone: [facility] Start: 02-11-2024 End: 02-11-2024 Patient encounter procedure Renny Frank Regino DPM Work Phone: [facility] Comment on above: Verruca plantaris (P rimary Dx); Foot pain, right; Foot pain, left Start: 02-11-2024 End: 02-11-2024 ambulatory RENNY Frank REGINO Not Available Start: 01-28-2024 End: 01-28-2024 Bamboo flowsheet Renny Frank Regino DPM Work Phone: [facility] Start: 01-28-2024 End: 01-28-2024 Bamboo flowsheet Renny Frank Brown DPM Work Phone: [facility] Start: 01-28-2024 End: 01-28-2024 Patient encounter procedure Renny Frank Regino DPM Work Phone: [facility] Comment on above: Verruca plantaris (P rimary Dx); Foot pain, right; Foot pain, left Start: 01-28-2024 End: 01-28-2024 ambulatory RENNY Frank REGINO Not Available Start: 01-14-2024 End: 01-14-2024 Bamboo flowsheet Renny Frank Brown DPM Work Phone: [facility] Start: 01-14-2024 End: 01-14-2024 Bamboo flowsheet Renny Frank Brown DPM Work Phone: [facility] Start: 01-14-2024 End: 01-14-2024 Patient encounter procedure Renny Frank Regino DPM Work Phone: [facility] Comment on above: Verruca plantaris (P rimary Dx); Foot pain, right; Foot pain, left Start: 01-14-2024 End: 01-14-2024 ambulatory RENNY A BROWN Not Available Start: 12-31-2023 End: 12-31-2023 Bamboo flowsheet Renny A Regino DPM Work Phone: [facility] Start: 12-31-2023 End: 12-31-2023 Bamboo flowsheet Renny Marie Regino DPM Work Phone: [facility] Start: 12-31-2023 End: 12-31-2023 Patient encounter procedure Renny Marie Regino DPM Work Phone: [facility] Comment on above: Verruca plantaris (P rimary Dx); Foot pain, right; Foot pain, left Start: 12-31-2023 End: 12-31-2023 ambulatory RENNY Frank REGINO Not Available Start: 12-17-2023 End: 12-17-2023 Bamboo flowsheet Renny Frank Regino DPM Work Phone: [facility] Start: 12-17-2023 End: 12-17-2023 Bamboo flowsheet Renny Marie Brown DPM Work Phone: [facility] Start: 12-17-2023 End: 12-17-2023 Patient encounter procedure Renny Orlando DPM Work Phone: [facility] Comment on above: Verruca plantaris (P rimary Dx); Foot pain, right; Onychomycosis; Toe pain, bilateral; Xerosis cutis; Foot pain, left Start: 12-17-2023 End: 12-17-2023 ambulatory RENNY ORLANDO Not Available Start: 12-15-2023 End: 12-15-2023 Bamboo flowsheet Lolis Pleitez MERRY GO ROUND ATTENDANT Work Phone: [facility] Start: 12-15-2023 End: 12-15-2023 Bamboo flowsheet Lolis Pleitez MERRY GO ROUND ATTENDANT Work Phone: [facility] Start: 12-15-2023 End: 12-15-2023 Office outpatient visit 15 minutes Lolis Pleitez MERRY [employer] ROUND ATTENDANT Work Phone: [facility] [place] [facility] Comment on above: Migraine with aura a nd without status migrainosus, not intractable (CMS/[facility]) (Primary Dx) Start: 12-15-2023 End: 12-15-2023 ambulatory [...] Start: 08-05-2023 End: 08-06-2023 ambulatory Issa VALE Facility:[id number] Start: 07-15-2023 End: 07-15-2023 ambulatory [...] Start: 04-10-2023 End: 04-10-2023 ambulatory [facility] Start: 11-25-2022 End: 11-25-2022 ambulatory TEGAN [facility] Start: 07-02-2022 End: 07-02-[address] MIKO [...] Start: 05-14-2022 End: 05-14-2022 ambulatory [facility] Start: 01-22-2022 End: 01-23-[address] MIKO [...] [address] [place] [phone] Keila Faith MD [address] [place] [address] [facility] Start: 12-14-2024 End: 12-14-2024 Patient encounter procedure 12/14/2024 8:20 AM EDT Office Visit [facility] [address] [place] [address] Cristofer Pleitezah, [address] [place] [phone] [facility] [place] [facility] Start: 04-18-2024 End: 04-18-2024 Patient encounter procedure 04/18/2024 9:20 AM EST Office Visit [facility] [address] [place] [phone] Keila Faith MD [address] [place] [address] [facility] Start: 04-07-2024 End: 04-07-2024 Patient encounter procedure 04/07/2024 9:20 AM EST Office Visit [facility] [address] [place] [phone] Keila Faith MD [address] [place] [address] Arrived [facility] Comment on above: Arrived Start: 02-11-2024 [...] AM EDT Office Visit [facility] [address] [phone] Renny Orlando, [place] [address] [address] Verruca plantaris (Primary Dx); Foot pain, right; Foot pain, left [facility] Comment on above: Verruca plantaris (P rimary Dx); Foot pain, right; Foot pain, left Start: 12-31-2023 End: 12-31-2023 Patient encounter procedure 12/31/2023 9:10 AM EDT Office Visit [facility] [address] [phone] Renny Orlando DPM [address] [address] Verruca plantaris (Primary Dx); Foot pain, right; [...] procedure 12/14/2023 9:20 AM EDT [facility] [address] [facility] [address] [place] [address] Keila Faith MD [address] [place] [address] [facility] Start: 12-06-2023 Influenza vaccination Influenza Vacc ine (#1) [facility] Start: 12-03-2023 End: 12-03-2023 Patient encounter procedure 12/03/2023 9:30 AM EDT Procedure Visit [facility] [address] [phone] Renny Orlando DPM [address] [address] Verruca plantaris (Primary Dx); Foot pain, right; Foot pain, left; Onychomycosis; Toe pain, bilateral; [facility]osis cutis [facility] Comment on above: Verruca plantaris (P rimary Dx); Foot pain, right; Foot pain, left; Onychomycosis; Toe pain, bilateral; Xerosis cutis Start: 05-14-2023 End: 05-14-2023 Patient encounter procedure 05/14/2023 8:40 AM EST Office Visit [facility] [address] [phone] Renny Orlando DPM [address] [address] [facility] Start: 12-05-2022 Influenza vaccination Influenza Vacc ine (#1) [facility] Start: 10-27-2018 Pneumococcal Vaccine : [...] Category Payer Private Health Insurance [employer] [id number] 2021 Unknown [employer] [id number] 2021-Present [address] [place] [address] [id number]. [id number] 2014 Medicare [id number] 1.13.693.2. [id number] 1959 Medicare [id number] 1959 Unknown [id number] 1949 Unknown [id number] 2.840.1.459196.3.579.2. 593 1949 Unknown [id number] 2.840.1.005786.3.579.2. 593 1949 Unknown [id number] .840.1.026653.3.579.2. 593 1949 Unknown [id number] 2.840.1.934746.3.579.2. 593 1949 Unknown [id number] 2.16.840.1.538877.3.579.2. 593 1949 Unknown [id number] 2.16.840.1.949146.3.579.2. 593 1949 Unknown [id number] 2.16.840.1.573381.3.579.2. 593 1949 Unknown [id number] 2.16.840.1.550025.3.579.2. 593 1949 Unknown [id number] 2.16.840.1.948674.3.579.2. 593 1949 Unknown [id number] 2.16.840.1.841514.3.579.2. 593 1949 Unknown [id number] 2.16.840.1.765606.3.579.2. 593 1949 Unknown [id number] 2.16.840.1.742349.3.579.2. 593 1949 Unknown [id number] 2.16.840.1.416704.3.579.2. 593 1949 Unknown [id number] 2.16.840.1.110732.3.579.2. 593 1949 Unknown [id number] 2.16.840.1.096436.3.579.2. 593 1949 Unknown [id number] 2.16.840.1.796690.3.579.2. 593 1949 Unknown [id number] 2.16.840.1.136998.3.579.2. 727 1949 Unknown [id number] 2.16.840.1.181639.3.579.2. 727 1949 Unknown [id number] 2.16.840.1.454614.3.579.2. 1259 1949 Unknown [id number] 2.16.840.1.944367.3.579.2. 1259 1949 Unknown [id number] 2.16.840.1.351992.3.579.2. 1258 1949 Unknown [id number] 2.16.840.1.091718.3.579.2. 1258 1949 Unknown [id number] 2.16.840.1.354074.3.579.2. 1258 1949 Unknown [id number] 2.16.840.1.344592.3.579.2. 1258 1949 Unknown [id number] 2.16.840.1.998749.3.579.2. 1258 1949 Unknown [id number] 2.16.840.1.366593.3.579.2. 1258 1949 Unknown [id number] 2.16.840.1.273687.3.579.2. 1258 1949 Unknown [id number] 2.16.840.1.226760.3.579.2. 1258 1949 Unknown [id number] 2.16.840.1.178287.3.579.2. 1258 1949 Unknown [id number] 2.16.840.1.044347.3.579.2. 1258 1949 Unknown [id number] 2.16.840.1.017224.3.579.2. 1258 1949 Unknown [id number] 2.16840.1.499153.3.579.2. 1258 1949 Unknown [id number] 2.16.840.1.498891.3.579.2. 1258 1949 Unknown [id number] 2.16840.1.596025.3.579.2. 1259 Social History Date Type Detail Facility Start: 04-30-2023 End: 12-03-2023 Tobacco smoking status AKIS Ex-smoker [facility] End: 04-06-2006 History of tobacco use Current smoker [facility] End: 04-06-2006 History of tobacco use Cigarette Smoker [facility] History of tobacco use Passive smoker [facility] Start: 04-30-2023 End: 12-03-2023 Tobacco use and exposure Smokeless tobacco non-user [facility] Start: 05-14-2023 End: 12-03-2023 Alcohol intake Lifetime non-drinker (finding) [facility] Start: 04-30-2023 End: 02-11-2024 History of Social function [facility] Start: 04-30-2023 End: 02-11-2024 Tobacco use panel [facility] Start: 12-12-2022 Alcohol Comment Caffeine intake: non e [facility] Start: 1950 Sex Assigned At Not on file [facility] Start: 12-31-2023 End: 04-07-2024 Alcoholic beverage intake Ex-drinker (finding) [facility] Start: 12-14-2023 Alcohol Comment Caffeine intak e: none; quit in 2014 [facility] Clinical Notes 05-14-2022 to 04-07-2024 Keila Faith [...] medications or symptoms. documented in this encounter [facility] 02-11-2024 History of Present illness Narrative Patient: [...] b.I.d. basis., Disp: 30 mL, Rfl: 11 Avcgeym-Hodenbodamb-Bckhexffse (Breztri Aerosphere) 160-9-4.8 MCG/ACT aerosol, Inhale 1 [...] Partner Violence: Unknown (05/28/2023) Received from [facility] [place] [employer] Fear of [...] Renny Orlando DPM documented in this encounter [facility] 01-28-2024 History of Present illness Narrative Patient: [...] b.I.d. basis., Disp: 30 mL, Rfl: 11 Wliauzv-Vewtutxwzvn-Hflawiqcds (Breztri Aerosphere) 160-9-4.8 MCG/ACT aerosol, Inhale 1 [...] Partner Violence: Unknown (05/28/2023) Received from [facility] [place] [employer] Fear of [...] Renny Orlando DPM documented in this encounter [facility] 01-14-2024 History of Present illness Narrative Patient: [...] b.I.d. basis., Disp: 30 mL, Rfl: 11 Izeokit-Wueeyflojxv-Jtkvuelnwu (Breztri Aerosphere) 160-9-4.8 MCG/ACT aerosol, Inhale 1 [...] Partner Violence: Unknown (05/28/2023) Received from [facility] [place] [employer] Fear of [...] Renny Orlando DPM documented in this encounter [facility] 12-31-2023 History of Present illness Narrative Patient: [...] b.I.d. basis., Disp: 30 mL, Rfl: 11 Jirbrkb-Gzdjdnsxdyn-Xsqjclhgvd (Breztri Aerosphere) 160-9-4.8 MCG/ACT aerosol, Inhale 1 [...] Partner Violence: Unknown (05/28/2023) Received from [facility] [place] [employer] [place] Fear of [...] Renny Orlando DPM documented in this encounter [facility] 12-17-2023 History of Present illness Narrative Patient: [...] Partner Violence: Unknown (05/28/2023) Received from [facility] [place] [employer] Fear of [...] Renny Orlando DPM documented in this encounter [facility] 12-15-2023 History of Present illness Narrative Images [...] Haii Aerosphere 160-9-4.8 MCG/ACT aerosol; Generic drug: Tigjlyv-Eogcvowjrst-Aciwcfklvy budesonide 1 MG/2ML nebulizer solution; Commonly known [...] wrist extensors , wrist flexor , and price lister strength 5/5. LUE strength deltoid , biceps , triceps , wrist extensors , wrist flexor , and price lister strength 5/5. RLE strength iliopsoas, quadriceps, tibialis [...] reflex 1+. LLE Knee reflex 1+. Coordination: Ttaeqb-ly-avpn testing normal. Rapid alternating movements are normal. [...] new or worsening symptoms. Lolis Pleitez NP [facility] Neurology documented in this encounter [facility] 12-03-2023 History of Present illness Narrative Patient: Akira Ayon Buitrago : 1950 PCP: Miko Burris MD [...] Partner Violence: Unknown (05/28/2023) Received from [facility] [place] [employer] [place] Fear of [...] Renny Orlando DPM documented in this encounter [facility] 06-09-2023 Note Chief Complaint consultation for colonoscopy [...] 1 tab(s), Oral, Daily Flonase 0.05 mg/inh [place], 2 spray(s), Nasal, Daily lactulose 10 g/15 [...] (more content not included)... [facility] Comment on above: Result Comment: [...] nostril in the morning and at bedtime. kxbwyyzdhr-jgenaizo-ivljccupzg (Breztri Aerosphere) 160-9-4.8 mcg/actuation HFA aerosol inhaler [...] as needed Juanita Jenkins MD Interventional Cardiology [facility] (more content not included)... [facility] 04-10-2023 Note Patient here for [...] All other systems reviewed and are negative. [facility] 11-25-2022 Note Remains stable, ches t pain resolved and no acute concerns currently [facility] 11-25-2022 Note Current echo 05/2022- Mild MR and no concerning symptoms currently [facility] 11-25-2022 Note Current echo 05/2022- Mild MR and no concerning symptoms currently [facility] 11-25-2022 Note Continue pravastatin 10 mg daily and fenofibrate- pt states PCP orders her annual labs F/U with PCP [facility] 11-25-2022 Note UTP CARDIOLOGY PROGR [...] Prior to Visit Medication Sig Dispense Refill ztfwaexxht-ngiugjun-mpsfvellwc (Breztri Aerosphere) 160-9-4.8 mcg/actuation HFA aerosol inhaler [...] no acute concerns currently RTC 4-6 months [facility] 05-26-2022 Note CARDIAC STRESS TEST Requesting Physician: Procedure Date:05/26/2022 This is a treadmill stress test with myocardial perfusion imaging, performed at the [facility] on 05/26/2022. Informed consent was obtained. [...] is associated with low risk for termite treater helper cardiac events. 4. Myocardial perfusion images will be reported separately. [facility] 05-14-2022 Note Cardiology Follow Up Progress Note Chief Complaint: follow up regarding valvular regurgitation HPI: Akira Buitrago is a 71 y.o. female with [...] Prior to Visit Medication Sig Dispense Refill sxozqdqemy-wqswpyhv-lcwnazwebe (Breztri Aerosphere) 160-9-4.8 mcg/actuation HFA aerosol inhaler [...] red flag symptoms. (more content not included)... [facility] 05-14-2022 Note Patient here for 6 m o follow up valve regurgitation and hyperlipidemia. C/o intermittent chest pressure. She says sometimes she takes aspirin to relieve the pain if it lasts more then a few minutes. Occurs at rest, as well as exercise, but she states it's no worse with exercise. [facility] Evaluation note Diagnosis Verruca plantaris- Primary Plantar [...] content) DATE CREATED AUTHOR 08/17/[address] [facility] dical Specialist DATE CREATED AUTHOR AUTHOR'S ORGANIZ ATION 07/05/2022 [facility] DATE CREATED AUTHOR AUTHOR'S ORGANIZ ATION 05/11/2023 [facility] DATE CREATED AUTHOR AUTHOR'S ORGANIZ ATION 08/10/2023 [facility] DATE CREATED AUTHOR AUTHOR'S ORGANIZ ATION 04/08/[address] [facility] dical Specialists EPIC Care Teams (unrecognized sec tion and content) Hospitalist Relationship Specialty Start Date End Date Miko Burris MD [address] [place] [address] PCP - General Family Medicine 04/30/23 Hospitalist Relationship Specialty Start Date End Date Miko Burris MD [address] [place] [address] PCP - General Family Medicine 04/30/23 Hospitalist Relationship Specialty Start Date End Date Miko Burris MD [address] [place] [address] PCP - General Family Medicine 04/30/23 Hospitalist Relationship Specialty Start Date End Date Miko Burris MD [address] [facility] PCP - General Family Medicine 04/30/23 Hospitalist Relationship Specialty Start Date End Date Miko Burris MD [address] [facility] PCP - General Family Medicine 04/30/23 Hospitalist Relationship Specialty Start Date End Date Miko Burris MD [address] [facility] PCP - General Family Medicine 04/30/23 Hospitalist Relationship Specialty Start Date End Date Miko Burris MD [address] [facility] PCP - General Family Medicine 04/30/23 Hospitalist Relationship Specialty Start Date End Date Miko Burris MD [address] [facility] PCP - General Family Medicine 04/30/23 Hospitalist Relationship Specialty Start Date End Date Miko Burris MD [address] [place] [facility] [address] PCP - General Family Medicine 04/30/23 Hospitalist Relationship Specialty Start Date End Date Miko Burris MD [address] [place] [facility] [address] PCP - General Family Medicine 04/30/23 Reason [...] BE BASED ON THE PRIMARY CLINICAL RECORDS. [facility] [email or web address] [facility]. provides no warranty or guarantee of the accuracy or completeness of information in this document.
--- NOTE | 2024-04-22 | XR_ITS ---
The [address] [address] Patient Name: AKIRA PERALTA MRN: [id number] date: 1950 Sex: F Assigned Patient Location: Current Patient Location: Accession/Order Number: [id number] Exam Date: 04/22/2024 10:05 Report Date: 04/24/2024 09:45 At the request of: KRYSTYNA STACY Procedure: XR cervical spine 2-3V Cervical spine x-rays, 04/22/2024. HISTORY: Neck pain. COMPARISON: Cervical spine x-rays, 04/12/2024. FINDINGS: 2 views of the cervical spine obtained in lateral projection with flexion and extension. There is anterolisthesis at C2-C3 with flexion measuring 2 mm. Alignment at this level with extension is normal. The alignment of the remainder of the cervical spine levels is normal. There is moderate to severe degenerative disc disease at C3-C4 through C6-C7 with disc space narrowing, irregularity of the endplates and osteophyte formation. Severe facet arthropathy at C7-T1. XR/XR cervical spine 2-3V IMPRESSION: 1. There is mild anterolisthesis at C2-C3 with flexion. Alignment at this level with extension is normal suggesting there may be mild instability at the C2-C3 level. 2. Alignment at the remainder of the cervical spine levels appears normal. 3. Moderate to severe multilevel degenerative disc disease at C3-C4 through C6-C7. Severe facet arthropathy at C7-T1. Electronically authenticated by: JAYDE DEWITT Date: 04/24/2024 09:45
--- OUTSIDE RECORDS SUMMARY | 2024-04-22 09:39 | XMS_ITS | CCD ---
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 Name Role Phone HOY ., DR ALVARADO [...] ALVARADO Primary Care Unavailable HOY ., DR ALVARAOD Admitting Unavailable HOY ., DR ALVARADO Consulting Unavailable ZIEBER, DR HOSEA Oliva Consulting Unavailable HOY ., DR ALVARADO Primary Care Unavailable SURINDER, ERNIE Admitting Unavailable SURINDER, ERNIE Consulting Unavailable SURINDER, ERNIE Attending Unavailable ALGHOTHANI, MOHAMAD Attending Unavailable ALGHOTHANI, MOHAMAD Attending Unavailable TEGAN PAIZ Attending Unavailable Riveray Miko FRANKLIN Primary Care Provider [phone] Issa VALE Attending Unavailable Issa VALE Attending [...] Amoxicillin; Translations: [AMOXICILLIN] Drug Allergy 3 [facility] Repository (3 sources) Morphine; Translations: [MORPHINE] Drug Allergy 3 [facility] Repository (20 sources) Amoxicillin Drug Allergy 3 Itching, Other, Unknown [facility] (20 sources) Mold Extract Drug Allergy 4 Unknown [facility] (20 sources) Morphine Drug Allergy 3 Itching, Other [facility] (1 source) Penicillin; Translations: [penicillin] Drug Allergy [facility] Repository (1 source) No Known Medication Allergies; Translations: [No Known Medication Allergies] Propensity to adverse reactions (disorder) [facility] Repository Medications Current Medications Medication Drug [...] 1 puff Daily Active 168 hr cloNIDine 0.24919 mg/hr transdermal system (20 sources) Central alpha-2 [...] Range Facility Outside Colonoscopyon 2023 Outside Colonoscopy [id number] 50 [id number] 0TIFF Normal [facility] Reminderson 08-07-2023 Reminders - From: Kandi Cesar LPN To: N - Clinical; Sent: 08/07/2023 07:59:01 EDT Show up: 07/06/2033 07:59:00 EDT Subject: colonoscopy recall Due Date/Time: 08/04/2033 07:00:00 EDT Reminder/Recall If patient is in good health, she is due for screening colonoscopy 08/04/2033. Normal [facility] Consent for Procedure/Surger yon 06-10-2023 Consent for Procedure/Surgery [id number] 0TIFF Normal [facility] Ambulatory Visit Summaryon 0 06-09-2023 Ambulatory [...] oral tablet) fluticasone nasal (Flonase 0.05 mg/inh [place]) furosemide (Lasix 20 mg Tab) lactulose (lactulose [...] Unchanged fluticasone nasal (Flonase 0.05 mg/ inh [place]) 2 Sprays Nasal Inhalation Every day Contact [...] for choosing us for your care. Normal [facility] Physician Referralon 024 Physician Referral [id number] 20 [id number] 0TIFF Normal [facility] Office Visiton 04-10-2023 Follow-up visit [id number] BuitragoShirley ly D 1950 F Date Provider Department Center 04/10/2023 3848-JUANITA JENKINS [facility] No family history on file Level of Service:39281 [place] OFFICE/OUTPATIENT ESTABLISHED LOW MDM 20 MIN Normal [facility] Office Visiton 11-25-2022 Follow-up visit [id number] BuitragoShirley ly D 1950 F Date Provider Department Center 11/25/2022 120-TEGAN PAIZ [facility] No family history on file Level of Service:13140 [place] OFFICE/OUTPATIENT ESTABLISHED MOD MDM 30-39 MIN Normal [facility] CALCIUMon 07-02-2022 Calcium [Mass/Vol] 9.8 mg/dL Normal 8.5-10.1 [facility] Comment on above: Performed By: #### C A, CREA #### [facility] [address] [address] [address] Zuly Medina CREATININEon 07-02-2022 Creatinine [Mass/Vol] 1.41 mg/dL Critically high 0.55-1.02 [facility] Comment on above: Performed By: #### C A, CREA #### [facility] [address] [address] [address] Zuly Medina EGFR-AF BOTSWANAN 44 mL/min/1.73m2 Critically low >=60 [facility] Comment on above: Performed By: #### C Frank, CREA #### [facility] [address] [address] [address] Zuly Medina EGFR-NON AF BOTSWANAN 37 mL/min/1.73m2 Critically low >=60 [facility] Comment on above: Performed By: #### C Frank, CREA #### [facility] [address] [address] [address] Zuly Medina MRI LSPINE WO CONon [...] TESSA ESTEVES Date: 2022-06-02 07:58 Normal [facility] VC VENOUS REFLUX NOEL LMTon 0 05-30-2022 VC VENOUS REFLUX NOEL LMT Patient: AKIRA BUITRAGO Exam Date: 05/30/2022 : 1950 Gender:F Ordering : DR MIKO BURRIS . Admission #: [id number] Family : Order #: [id number] CLICK HERE TO VIEW EXAM RADIOLOGY REPORT [...] thrombus. Compressibility: Normal. Flow: Deep venous reflux. 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 Order #: [id number] CLICK HERE TO VIEW EXAM RADIOLOGY REPORT [...] Garcia M.D. on 05/27/2022 at 13:00 Normal [facility] XR LSPINE MIN 4 VIEWSon [...] HOSEA GARCIA Date: 2022-05-23 14:32 Normal [facility] Covid-19 PCR (CVDTBH)on 05-07 SARS-CoV-2 (COVID-19) RNA MARY+probe Ql (Unsp spec) Not detected Normal NOT DETECTED [facility] Comment on above: Result Comment: This test is not yet approved or cleared by the [place] FDA. When there are no FDA-approved or cleared tests available, and other criteria are met, FDA can make tests available under an emergency access mechanism called an Emergency Use Authorization (EUA). The EUA for this test is supported by the [place] of Health and Human Service's (HHS's) declaration [...] SARS-CoV-2. Performed By: #### C VDTBH #### [facility] [address] [place] [address] Dr. Zuly Medina INFLUENZA A AND B AGon 05-22 [facility] SEE BELOW Normal [facility] Comment on above: Result Comment: Nega tive for Flu A protein angiten. Infection due to Flu A cannot be ruled out. Flu A angiten in the sample may be below the detection limit of the test. Performed By: #### I NFLUAB #### [facility] [address] [place] [address] Dr. [facility] Normal [facility] Comment on above: Result Comment: Nega tive for Flu B protein antigen. Infection due to Flu B cannot be ruled out. Flu B antigen in the sample may be below the detection limit of the test. Performed By: #### I NFLUAB #### [facility] [address] [place] [address] Dr. Zuly Medina INFLUENZA A AG Negative Normal NEGATIVE SEE COMMENT [facility] Comment on above: Performed By: #### I NFLUAB #### [facility] [address] [place] [address] Dr. Zuly Medina INFLUENZA B AG Negative Normal NEGATIVE SEE COMMENT [facility] Comment on above: Performed By: #### I NFLUAB #### [facility] [address] [place] [address] Dr. Zuly Medina ECHOCARDIO M/2D COMPLETEon 0 05-14-2022 ECHOCARDIO M/2D COMPLETE Patient: AKIRA BUITRAGO Exam Date: 05/14/2022 : 1950 Gender:F Ordering : BROWNNany ALISHA Admission #: [id number] Family : DR MIKO BURRIS . Order #: [id number] CLICK HERE TO VIEW EXAM ECHOCARDIOGRAM REPORT [...] M.D. on 05/15/2022 at 18:48 Approved by: Aazm Garcia M.D. on 05/15/2022 at 18:51 Normal [facility] Office Visiton 05-14-2022 Follow-up visit [id number] Shirley Buitrago 1950 F Date Provider Department Center 05/14/2022 3848-JUANITA JENKINS [facility] No family history on file Level of Service:50927 [place] OFFICE/OUTPATIENT ESTABLISHED MOD [facility] 30-39 MIN Reason for Visit and Comments: Hyperlipidemia [182] Valve Disorder [3372] Normal [facility] MG MAMM SCREEN 3D NOEL CADon 01-22-2022 MG MAMM SCREEN 3D NOEL CAD Patient: AKIRA BUITRAGODexter Exam Date: 01/22/2022 : 1950 Gender:F Ordering : DR MIKO BURRIS . Admission #: [id number] Family : Order #: [id number] CLICK HERE TO VIEW EXAM RADIOLOGY REPORT [...] lung cancer at age 59. LOCATION: [facility] BREAST COMPOSITION: Scattered areas fibroglandular density. [...] M.D. on 01/22/2022 at 14:36 Normal [facility] CALCIUMon 12-31-2021 Calcium [Mass/Vol] 10.0 mg/dL Normal 8.5-10.1 [facility] Comment on above: Performed By: #### Oliverio SIMS CA #### [facility] [address] [place] [address] Dr. Zuly Medina CREATININEon 12-31-2021 Creatinine [Mass/Vol] 1.33 mg/dL Critically high 0.55-1.02 [facility] Comment on above: Performed By: #### CIHDI MCDANIEL #### [facility] [address] [place] [address] Dr. Zuly Medina EGFR-AF BOTSWANAN 48 mL/min/1.73m2 Critically low >=60 [facility] Comment on above: Performed By: #### CHIDI MCDANIEL #### [facility] [address] [place] [address] Dr. Zuly Medina EGFR-NON AF BOTSWANAN 39 mL/min/1.73m2 Critically low >=60 [facility] Comment on above: Performed By: #### HCIDI MCDANIEL #### [facility] [address] [place] [address] Dr. Zuly Medina Covid-19 PCR (CVDTB)on 12-06 SARS-CoV-2 (COVID-19) RNA MARY+probe Ql (Unsp spec) Not detected Normal NOT DETECTED [facility] Comment on above: Result Comment: This test is not yet approved or cleared by the [place] FDA. When there are no FDA-approved or cleared tests available, and other criteria are met, FDA can make tests available under an emergency access mechanism called an Emergency Use Authorization (EUA). The EUA for this test is supported by the [place] of Health and Human Service's (HHS's) declaration [...] SARS-CoV-2. Performed By: #### C VDTBH #### [facility] [address] [place] [address] Dr. Zuly Medina T4, T3U, FTI LABCORPon 11-15 Free Thyroxine Index 2.7 Normal 1.2-4.9 [facility] Comment on above: Performed By: #### C VDTBH #### [facility] [address] [place] [address] Dr. Zuly Medina T3 Uptake 32 % Normal 24-39 [facility] Comment on above: Performed By: #### C VDTBH #### [facility] [address] [place] [address] Dr. Zuly Medina T4 [Mass/Vol] 8.5 ug/dL Normal 4.5-12.0 [facility] Comment on above: Performed By: #### C VDTBH #### [facility] [address] [place] [address] Dr. Zuly Medina VIT D 25-OH LABCORPon 2021 Vitamin D, 25-Hydroxy 114.0 ng/mL Critically high 30.0-100.0 [facility] Comment on above: Result Comment: Jenny min D deficiency has been defined by the [place] of [employer] and an Endocrine Society practice guideline as a level of serum 25-OH vitamin D less than 20 ng/mL (1,2). The Endocrine Society went on to further define vitamin D insufficiency as a level between 21 and 29 ng/mL (2). 1. IOM ([place] [employer]). 2010. Dietary reference intakes for calcium and D. [place]: The National Academies Press. 2. Anel MF, Chandrika NC, Ronaldo MCCALLUM, et al. Evaluation, treatment, and prevention of vitamin D deficiency: an Endocrine Society clinical practice guideline. JCEM. 2010; 96(7):1911-30. Performed By: #### V ITADLC #### [facility] [address] [place] [address] Dr. Zuly Medina CBC AUTO DIFFon 11-14-2021 BASO # 0.0 103/ul Normal 0.0-0.1 [facility] Comment on above: Performed By: #### Oliverio SIMS, CA #### [facility] [address] [place] [address] Dr. Zuly Medina Basophils/100 WBC (Bld) 0.4 % Normal 0.2-2.0 [facility] Comment on above: Performed By: #### Oliverio SIMS, CA #### [facility] [address] [place] [address] Dr. Zuly Medina EO # 0.3 103/ul Normal 0.0-0.7 [facility] Comment on above: Performed By: #### Oliverio SIMS, CA #### [facility] [address] [place] [address] Dr. Zuly Medina Eosinophils/100 WBC (Bld) 4.1 % Normal 0.9-7.0 [facility] Comment on above: Performed By: #### Oliverio SIMS, CA #### [facility] [address] [place] [address] Dr. Zuly Medina Erythrocyte distribution width (RBC) [Ratio] 14.1 % Normal 11.0-15.0 [facility] Comment on above: Performed By: #### Oliverio SIMS, CA #### [facility] [address] [place] [address] Dr. Zuly Medina Hematocrit (Bld) [Volume fraction] 36.0 % Normal 36.0-48.0 [facility] Comment on above: Performed By: #### Oliverio SIMS, CA #### [facility] [address] [place] [address] Dr. Zuly Medina Hemoglobin (Bld) [Mass/Vol] 11.6 g/dL Critically low 12.0-16.0 [facility] Comment on above: Performed By: #### CHIDI MCDANIEL #### [facility] [address] [place] [address] Dr. Zuly Medina IG # 0.01 10e3/ul Normal 0.00-0.03 [facility] Comment on above: Performed By: #### CHIDI MCDANIEL #### [facility] [address] [place] [address] Dr. Zuly Medina IG % 0.1 % Normal 0.0-0.5 [facility] Comment on above: Performed By: #### CHIDI MCDANIEL #### [facility] [address] [place] [address] Dr. Zuly Medina LYMPH # 1.3 103/ul Normal 1.2-3.8 [facility] Comment on above: Performed By: #### CHIDI MCDANIEL #### [facility] [address] [place] [address] Dr. Zuly Medina Lymphocytes/100 WBC (Bld) 19.3 % Critically low 20.5-60.0 [facility] Comment on above: Performed By: #### CHIDI MCDANIEL #### [facility] [address] [place] [address] Dr. Zuly Medina MANUAL DIFF REQ NO Normal [facility] Comment on above: Performed By: #### CHIDI MCDANIEL #### [facility] [address] [place] [address] Dr. Zuly Medina MCH (RBC) [Entitic mass] 31.4 pg Normal 26.7-34.0 [facility] Comment on above: Performed By: #### CHIDI MCDANIEL #### [facility] [address] [place] [address] Dr. Zuly Medina MCHC (RBC) [Mass/Vol] 32.2 g/dL Normal 29.9-35.2 [facility] Comment on above: Performed By: #### CHIDI MCDANIEL #### [facility] [address] [place], [place] [id number] Dr. Zuly Medina MCV (RBC) [Entitic vol] 97.6 fL Normal 81.0-99.0 [facility] Comment on above: Performed By: #### CHIDI MCDANIEL #### [facility] [address] [place] [address] Dr. Zuly Medina MONO # 0.8 103/ul Normal 0.3-0.8 [facility] Comment on above: Performed By: #### CHIDI MCDANIEL #### [facility] [address] [place] [address] Dr. Zuly Medina Monocytes/100 WBC (Bld) 11.8 % Normal 1.7-12.0 [facility] Comment on above: Performed By: #### CHIDI MCDANIEL #### [facility] [address] [place] [address] Dr. Zuly Medina NEUT # 4.4 103/ul Normal 1.4-6.5 [facility] Comment on above: Performed By: #### CHIDI MCDANIEL #### [facility] [address] [place] [address] Dr. Zuly Medina Neutrophils/100 WBC (Bld) 64.3 % Normal 43.0-75.0 [facility] Comment on above: Performed By: #### CHIDI MCDANIEL #### [facility] [address] [place] [address] Dr. Zuly Medina Platelet mean volume (Bld) [Entitic vol] 10.1 fL Normal 9.5-13.5 [facility] Comment on above: Performed By: #### CHIDI MCDANIEL #### [facility] [address] [place] [address] Dr. Zuly Medina PLT 311 103/ul Normal 150-450 [facility] Comment on above: Performed By: #### CHIDI MCDANIEL #### [facility] [address] [place] [address] Dr. Zuly Medina RBC 3.69 106/ul Critically low 4.20-5.40 [facility] Comment on above: Performed By: #### Oliverio SIMSCHIDI #### [facility] [address] [address] [address] Zuly Medina WBC 6.9 103/ul Normal 4.0-11.0 [facility] Comment on above: Performed By: #### C CHIDI SIMS #### [facility] [address] [address] [address] Zuly Medina GLYCOHEMOGLOBIN A1Con 2021 ADA RECOMMENDATION SEE BELOW Normal [facility] Comment on above: Result Comment: ADA RECOMMENDED LIMIT 4.0 - 6.0 ADA THERAPEUTIC TARGET < 7.0 ACTION SUGGESTED > 7.0 Performed By: #### A 1C #### [facility] [address] [address] [address] Zuly Medina Glucose [Mass/Vol] 103 mg/dL Normal [facility] Comment on above: Performed By: #### A 1C #### [facility] [address] [place] [address] Dr. Zuly Medina HbA1c (Bld) [Mass fraction] 5.2 % Normal 4.5-6.2 [facility] Comment on above: Performed By: #### A 1C #### [facility] [address] [address] [address] Zuly Medina IRONon 11-14-2021 Iron [Mass/Vol] 60.0 ug/dL Normal 50.0-170.0 [facility] Comment on above: Performed By: #### C VDTB #### [facility] [address] [place] [address] Dr. Zuly Medina LIPID PROFILEon 11-14-2021 CHOL-HDL RATIO NORM SEE BELOW Normal [facility] Comment on above: Result Comment: 3.3 - 4.4 LOW RISK 4.4 - 7.1 AVERAGE RISK 7.1 - 11.0 MODERATE RISK >11.0 HIGH RISK Performed By: #### CHIDI MCDANIEL #### [facility] [address] [place] [address] Dr. Zuly Medina Cholesterol [Mass/Vol] 145 mg/dL Normal <=200 [facility] Comment on above: Performed By: #### CHIDI MCDANIEL #### [facility] [address] [address] [address] Zuly Medina Cholesterol in HDL [Mass/Vol] 65 mg/dL Critically high 40-60 [facility] Comment on above: Performed By: #### Oliverio SIMS CA #### [facility] [address] [address] [address] Zuly Medina Cholesterol in LDL [Mass/Vol] 72.2 mg/dL Normal [facility] Comment on above: Performed By: #### Oliverio SIMS CA #### [facility] [address] [address] [address] Zuly Medina Cholesterol.total/Ch olesterol in HDL [Mass ratio] 2.2 {ratio} Normal [facility] Comment on above: Performed By: #### Oliverio SIMS CA #### [facility] [address] [place] [address] Dr. Zuly Medina HDL NORMAL > or = 60 mg/dl - LO W CARDIOVASCULAR RISK <40 mg/dl - HIGH CARDIOVASCULAR RISK Normal [facility] Comment on above: Performed By: #### CHIDI MCDANIEL #### [facility] [address] [address] [address] Zuly Medina LDL CALC NORMAL SEE BELOW Normal [facility] Comment on above: Result Comment: <100 mg/dl OPTIMAL 100 - 129 mg/dl NEAR OR ABOVE OPTIMAL 130 - 159 mg/dl BORDERLINE HIGH 160 - 189 mg/dl HIGH >190 mg/dl VERY HIGH Performed By: #### CHIDI MCDANIEL #### [facility] [address] [address] [address] Zuly Medina Triglyceride [Mass/Vol] 39 mg/dL Normal <=150 [facility] Comment on above: Performed By: #### CHIDI MCDANIEL #### [facility] [address] [place] [address] Dr. Zuly Medina VLDL CALC 7.8 mg/dL Normal [facility] Comment on above: Performed By: #### CHIDI MCDANIEL #### [facility] [address] [address] [address] Zuly Medina PROF 14(COMP METB)on 022 Albumin [Mass/Vol] 3.8 g/dL Normal 3.4-5.0 [facility] Comment on above: Performed By: #### CHIDI MCDANIEL #### [facility] [address] [place] [address] Dr. Zuly Medina Albumin/Globulin [Mass ratio] 1.4 {ratio} Normal [facility] Comment on above: Performed By: #### CHIDI MCDANIEL #### [facility] [address] [address] [address] Zuly Medina ALP [Catalytic activity/Vol] 41 U/L Critically low 46-116 [facility] Comment on above: Performed By: #### CHIDI MCDANIEL #### [facility] [address] [place] [address] Dr. Zuly Medina ALT [Catalytic activity/Vol] 20 U/L Normal 14-59 [facility] Comment on above: Performed By: #### CHIDI MCDANIEL #### [facility] [address] [place] [address] Dr. Zuly Medina Anion gap [Moles/Vol] 8.2 mmol/L Normal [facility] Comment on above: Performed By: #### CHIDI MCDANIEL #### [facility] [address] [place] [address] Dr. Zuly Medina AST [Catalytic activity/Vol] 25 U/L Normal 15-37 [facility] Comment on above: Performed By: #### CHIDI MCDANIEL #### [facility] [address] [address] [address] Zuly Medina Bilirubin [Mass/Vol] 0.4 mg/dL Normal 0.2-1.0 [facility] Comment on above: Performed By: #### CHIDI MCDANIEL #### [facility] [address] [address] [address] Zuly Medina Calcium [Mass/Vol] 10.1 mg/dL Normal 8.5-10.1 [facility] Comment on above: Performed By: #### CHIDI MCDANIEL #### [facility] [address] [address] [address] Zuly Medina Chloride [Moles/Vol] 104 mmol/L Normal 98-107 [facility] Comment on above: Performed By: #### Oliverio SIMS, [place] #### [facility] [address] [place] [address] Dr. Zuly Medina CO2 [Moles/Vol] 31.6 mmol/L Normal 21.0-32.0 [facility] Comment on above: Performed By: #### Oliverio SIMS, CA #### [facility] [address] [place] [address] Dr. Zuly Medina Creatinine [Mass/Vol] 1.44 mg/dL Critically high 0.55-1.02 [facility] Comment on above: Performed By: #### Oliverio SIMS CA #### [facility] [address] [place] [address] Dr. Zuly Medina EGFR-AF BOTSWANAN 43 mL/min/1.73m2 Critically low >=60 [facility] Comment on above: Performed By: #### Oliverio SIMS, CA #### [facility] [address] [place] [address] Dr. Zuly Medina EGFR-NON AF BOTSWANAN 36 mL/min/1.73m2 Critically low >=60 [facility] Comment on above: Performed By: #### Oliverio SIMS CA #### [facility] [address] [place] [address] Dr. Zuly Medina Globulin (S) [Mass/Vol] 2.8 g/dL Normal [facility] Comment on above: Performed By: #### Oliverio SIMS, CA #### [facility] [address] [place] [address] Dr. Zuly Medina Glucose [Mass/Vol] 100 mg/dL Normal 74-106 [facility] Comment on above: Performed By: #### Oliverio SIMS, [place] #### [facility] [address] [place] [address] Dr. Zuly Medina Potassium [Moles/Vol] 3.8 mmol/L Normal 3.5-5.1 [facility] Comment on above: Performed By: #### Oliverio SIMS, CA #### [facility] [address] [address] [address] Zuly Medina Protein [Mass/Vol] 6.6 g/dL Normal 6.4-8.2 [facility] Comment on above: Performed By: #### C BETH[place], [place] #### [facility] [address] [address] [address] Zuly Medina Sodium [Moles/Vol] 140 mmol/L Normal 136-145 [facility] Comment on above: Performed By: #### Oliverio SIMS, [place] #### [facility] [address] [place] [address] Dr. Zuly Medina Urea nitrogen [Mass/Vol] 28.0 mg/dL Critically high 7.0-18.0 [facility] Comment on above: Performed By: #### Oliverio SIMS, [place] #### [facility] [address] [place] [address] Dr. Zuly Medina Urea nitrogen/Creatinine [Mass ratio] 19.4 mg/mg Normal [facility] Comment on above: Performed By: #### Oliverio SIMS, [place] #### [facility] [address] [place] [address] Dr. Zuly Medina TSHon 11-14-2021 TSH 1.676 uIU/mL Normal 0.358-3.740 [facility] Comment on above: Performed By: #### [place], [place] #### [facility] [address] [place] [address] Dr. Zuly Medina [facility]on [facility]-05 SARS-CoV-2 (COVID-19) RNA MARY+probe Ql (Unsp spec) Not detected Normal NOT DETECTED [facility] Comment on above: Result Comment: When [...] for this test is supported by the [place] of Health and Human Service's declaration that [...] used). Performed By: #### C VDTBH #### [facility] [address] [place] [address] Dr. Zuly Medina CREATININEon 09-18-2021 Creatinine [Mass/Vol] 1.33 mg/dL Critically high 0.55-1.02 [facility] Comment on above: Performed By: #### [place] #### [facility] [address] [place] [address] Dr. Zuly Medina EGFR-AF BOTSWANAN 48 mL/min/1.73m2 Critically low >=60 [facility] Comment on above: Performed By: #### [place] #### [facility] [address] [place] [address] Dr. Zuly Medina EGFR-NON AF BOTSWANAN 39 mL/min/1.73m2 Critically low >=60 [facility] Comment on above: Performed By: #### [place] #### [facility] [address] [place] [address] Dr. Zuly Medina MRI BRAIN WO W [...] HOSEA GARCIA Date: 2021-09-18 16:23 Normal [facility]-05 SARS-CoV-2 (COVID-19) RNA MARY+probe Ql (Unsp spec) Not detected Normal NOT DETECTED [facility] Comment on above: Result Comment: This test is not yet approved or cleared by the [place] FDA. When there are no FDA-approved or cleared tests available, and other criteria are met, FDA can make tests available under an emergency access mechanism called an Emergency Use Authorization (EUA). The EUA for this test is supported by the [place] of Health and Human Service's (HHS's) declaration [...] consistent with SARS-CoV-2. Performed By: #### [facility] #### [facility] [address] [place] [address] Dr. Zuly Medina SYMPTOMATIC COVID-19 ANTIGEN on 08-23-2021 EUA Statement SEE BELOW Normal [facility] Comment on above: Result Comment: [...] sooner. Performed By: #### C VDTB #### [facility] [address] [place] [address] Dr. Zuly Medina SARS-CoV-2 (COVID-19) RNA MARY+probe Ql (Unsp spec) Negative Normal NEGATIVE [facility] Comment on above: Performed By: #### C VDTB #### [facility] [address] [place] [address] Dr. Zuly Medina Q - Diptheria/Tetanus Abon 0 08-09-2021 DIPHTHERIA ANTITOXOID 0.25 IU/mL Normal [facility] [employer] Comment on above: Order Comment: [facility] Testing performed at: [facility], [employer], [address] [facility] , [place], [place], , Project Accountant: Sahil Dyson M.D.,PhD [facility] Collection Date/Time: [facility] [...] analytical performance characteristics have been determined by [employer] [place], [place]. It has not been cleared or approved by the U.S. Food and Drug Administration. This assay has been validated pursuant to the CLIA regulations and is used for clinical purposes. Performed By: #### 2 4729W, 73416N, 74272, 93699V, 26230O, 81921M #### [facility] [address] [place] [address] TETANUS ANTITOXOID 4.67 IU/mL Normal [facility] Comment on above: Order Comment: [facility] Testing performed at: [facility] [employer], [address] , [place], [place], , Project Accountant: Sahil Dyson M.D.,PhD [facility] Collection Date/Time: [facility] [...] analytical performance characteristics have been determined by [employer] [place], [place]. It has not been cleared or approved by the U.S. Food and Drug Administration. This assay has been validated pursuant to the CLIA regulations and is used for clinical purposes. Performed By: #### 2 4729W, 67247P, 61305, 99762N, 55537M, 77277E #### [facility] [address] [place] [address] Q - IGA,SERUMon 08-09-2021 IMMUNOGLOBULIN A 125 mg/dL Normal 70-320 [facility] [employer] Comment on above: Order Comment: [facility] Testing performed at: [facility], [employer] [facility] [address], [address] [facility], [address] [place] [address], [address], Project Accountant: Thony Haley MD [facility] Collection Date/Time: [facility] Results Received Date/Time: [facility] Reported Date/Time: Performed By: #### 2 4729W, 45299Z, 67303, 69364M, 65156F, 58980X #### [facility] [address] [place] [address] Q - IGE,SERUMon 08-09-2021 IMMUNOGLOBULIN E 44 kU/L Normal [facility] Specialist Comment on above: Order Comment: [facility] Testing performed at: [employer], [employer] [facility] [address], [address] , [address] [place] [address], [address] [place] [address], Project Accountant: Thony Haley MD [facility] Collection Date/Time: [facility] Results Received Date/Time: [facility] Reported Date/Time: Performed By: #### 2 4729W, 56534X, 07112, 88311L, 96140Y, 72489J #### [facility] [address] [place] [address] Q - IGG,SERUMon 08-09-2021 IMMUNOGLOBULIN G 895 mg/dL Normal 600-1540 [facility] [employer] Comment on above: Order Comment: [facility] Testing performed at: [employer], [employer] [facility] [address], [address] , [address] [place] [address], [address] [place] [address], Project Accountant: Thony Haley MD [facility] Collection Date/Time: [facility] Results Received Date/Time: [facility] Reported Date/Time: Performed By: #### 2 4729W, 84989O, 45555, 82201O, 55418P, 39409Y #### [facility] [address] [place] [address] Q - IGM,SERUMon 08-09-2021 IMMUNOGLOBULIN M 158 mg/dL Normal 50-300 [facility] [employer] Comment on above: Order Comment: [facility] Testing performed at: [employer] [facility] [address] [facility], [address], [address] [place] [address], [address] [place] [address], Project Accountant: Thony Haley MD [facility] Collection Date/Time: [facility] Results Received Date/Time: [facility] Reported Date/Time: Performed By: #### 2 4729W, 96195T, 87713, 06648R, 30963J, 18157J #### [facility] [address] [place] [address] Q - Strep pneumo Ab 23 serot ypeson 08-09-2021 SEROTYPE 1 (1) 9.5 Normal [facility] Specialist Comment on above: Order Comment: [facility] Testing performed at: [facility], [employer] [facility],, [address] [place], [place], , Project Accountant: Osiris Galdamez MD,PhD,BHANU [facility] Collection Date/Time: [facility] Results Received Date/Time: [facility] Reported Date/Time: Performed By: #### 2 4729W, 09070H, 51393, 44300P, 94323R, 45402U #### [facility] [address] [place] [address] SEROTYPE 12 (12F) 1.0 Normal [facility] Comment on above: Order Comment: [facility] Testing performed at: [facility], [employer] [facility],, [facility] [place], , Project Accountant: Osiris Galdamez MD,PhD,BHANU [facility] Collection Date/Time: [facility] Results Received Date/Time: [facility] Reported Date/Time: Performed By: #### 2 4729W, 08285J, 26486, 68913K, 71151T, 25352F #### [facility] [address] [place] [address] SEROTYPE 14 (14) 3.3 [facility] Comment on above: Order Comment: [facility] Testing performed at: [facility], [employer] [facility],, [address] [place], [address], Project Accountant: Osiris Galdamez MD,PhD,BHANU [facility] Collection Date/Time: [facility] Results Received Date/Time: [facility] Reported Date/Time: Performed By: #### 2 4729W, 67450D, 71517, 61761J, 86360D, 38277K #### [facility] [address] [place] [address] SEROTYPE 17 (17F) 1.2 Normal [facility] Comment on above: Order Comment: [facility] Testing performed at: [facility], [employer] [facility],, [address] [place] [address], , Project Accountant: Osiris Galdamez MD,PhD,BHANU [facility] Collection Date/Time: [facility] Results Received Date/Time: [facility] Reported Date/Time: Performed By: #### 2 4729W, 08099Y, 05877, 35665B, 92074P, 53900H #### [facility] [address] [place] [address] SEROTYPE 19 (19F) 2.8 Normal [facility] Comment on above: Order Comment: [facility] Testing performed at: [facility], [employer] [facility],, [address] [place] [address], , Project Accountant: Osiris Galdamez MD,PhD,BHANU [facility] Collection Date/Time: [facility] Results Received Date/Time: [facility] Reported Date/Time: Performed By: #### 2 4729W, 12773M, 44493, 50502J, 95119O, 51360O #### [facility] [address] [place] [address] SEROTYPE 2 (2) 7.2 Normal [facility] [employer] Comment on above: Order Comment: [facility] Testing performed at: [facility], [employer] [facility],, [address] [place] [address], , Project Accountant: Osiris Galdamez MD,PhD,BHANU [facility] Collection Date/Time: [facility] Results Received Date/Time: [facility] Reported Date/Time: Performed By: #### 2 4729W, 80785U, 43031, 93927T, 18475C, 71051W #### [facility] [address] [place] [address] SEROTYPE 20 (20) 3.[address] [facility] Comment on above: Order Comment: [facility] Testing performed at: [facility], [employer],, [address] [place] [address], , Project Accountant: Osiris Galdamez MD,PhD,BHANU [facility] Collection Date/Time: [facility] Results Received Date/Time: [facility] Reported Date/Time: Performed By: #### 2 4729W, 16777Q, 26344, 97285R, 87256H, 72044Y #### [facility] [address] [place] [address] SEROTYPE 22 (22F) 5.9 [facility] Comment on above: Order Comment: [facility] Testing performed at: [facility], [employer] [facility],, [address] [place] [address], , Project Accountant: Osiris Galdamez MD,PhD,BHANU [facility] Collection Date/Time: [facility] Results Received Date/Time: [facility] Reported Date/Time: Performed By: #### 2 4729W, 56387Z, 02694, 59496K, 12809B, 24232P #### [facility] [address] [place] [address] SEROTYPE 23 (23F) 5.2 [facility] Comment on above: Order Comment: [facility] Testing performed at: [facility], [employer] [facility],, [address] [place] [address], , Project Accountant: Osiris Galdamez MD,PhD,BHANU [facility] Collection Date/Time: [facility] Results Received Date/Time: [facility] Reported Date/Time: Performed By: #### 2 4729W, 30049W, 00823, 44334Q, 90017E, 78954N #### [facility] [address] [place] [address] SEROTYPE 26 (6B) 18.8 Normal [facility] [employer] Comment on above: Order Comment: [facility] Testing performed at: [employer], [employer] [facility],, [address] [place] [address], , Project Accountant: Osiris Galdamez MD,PhD,BHANU [facility] Collection Date/Time: [facility] Results Received Date/Time: [facility] Reported Date/Time: Performed By: #### 2 4729W, 91377V, 64933, 88004X, 14759B, 52712B #### [facility] [address] [place] [address] SEROTYPE 3 (3) 1.3 Normal [facility] [employer] Comment on above: Order Comment: [facility] Testing performed at: [employer], [employer] [facility],, [address] [place] [address], , Project Accountant: Osiris Galdamez MD,PhD,BHANU [facility] Collection Date/Time: [facility] Results Received Date/Time: [facility] Reported Date/Time: Performed By: #### 2 4729W, 90557D, 13096, 52361X, 05589G, 16377X #### [facility] [address] [place] [address] SEROTYPE 34 (10A) 0.9 Normal [facility] Specialist Comment on above: Order Comment: [facility] Testing performed at: [facility], [employer] [facility],, [address] [place] [address], , Project Accountant: Osiris Galdamez MD,PhD,BHANU [facility] Collection Date/Time: [facility] Results Received Date/Time: [facility] Reported Date/Time: Performed By: #### 2 4729W, 14033R, 52374, 50044V, 44549U, 13541R #### [facility] [address] [place] [address] SEROTYPE 4 (4) <0.3 Normal [facility] [employer] Comment on above: Order Comment: [facility] Testing performed at: [facility], [employer] [facility],, [address] [place] [address], , Project Accountant: Osiris Galdamez MD,PhD,BHANU [facility] Collection Date/Time: [facility] Results Received Date/Time: [facility] Reported Date/Time: Performed By: #### 2 4729W, 18187K, 97717, 57115O, 79902M, 55861O #### [facility] [address] [place] [address] SEROTYPE 43 (11A) 1.1 Normal [facility] Comment on above: Order Comment: [facility] Testing performed at: [facility], [employer] [facility],, [address] [place], [place], , Project Accountant: Osiris Galdamez MD,PhD,BHANU [facility] Collection Date/Time: [facility] Results Received Date/Time: [facility] Reported Date/Time: Performed By: #### 2 4729W, 95672N, 12961, 71330N, 73570R, 28688W #### [facility] [address] [place] [address] SEROTYPE 5 (5) 2.3 Normal [facility] Specialist Comment on above: Order Comment: [facility] Testing performed at: [facility], [employer] [facility],, [address] [place], [place], , Project Accountant: Osiris Galdamez MD,PhD,BHANU [facility] Collection Date/Time: [facility] Results Received Date/Time: [facility] Reported Date/Time: Performed By: #### 2 4729W, 27832D, 67646, 48026T, 30402H, 85728R #### [facility] [address] [place] [address] SEROTYPE 51 (7F) 8.[address] [facility] Comment on above: Order Comment: [facility] Testing performed at: [facility], [employer],, [address] [place], [place], , Project Accountant: Osiris Galdamez MD,PhD,BHANU [facility] Collection Date/Time: [facility] Results Received Date/Time: [facility] Reported Date/Time: Performed By: #### 2 4729W, 53392X, 48009, 18778E, 34636R, 31668X #### [facility] [address] [place] [address] SEROTYPE 54 (15B) 2.3 Normal [facility] Comment on above: Order Comment: [facility] Testing performed at: [facility], [employer],, [address] [place], [place], , Project Accountant: Osiris Galdamez MD,PhD,BHANU [facility] Collection Date/Time: Quest Results Received Date/Time: [facility] Reported Date/Time: [id number] Performed By: #### 2 4729W, 25213K, 69507, 69943B, 36595H, 48914Q #### [facility] [address] [place] [address] SEROTYPE 56 (18C) 18.7 Normal [facility] Comment on above: Order Comment: [facility] Testing performed at: [facility], [employer] [facility],, [address] [place], , Project Accountant: Osiris Galdamez MD,PhD,BHANU Quest Collection Date/Time: Quest Results Received Date/Time: [facility] Reported Date/Time: Performed By: #### 2 4729W, 96212C, 35753, 26048I, 46454E, 24982N #### [facility] [address] [place] [address] SEROTYPE 57 (19A) 15.6 Normal [facility] Comment on above: Order Comment: [facility] Testing performed at: [facility], [employer] [facility],, [facility] [place], , Project Accountant: Osiris Galdamez MD,PhD,BHANU [facility] Collection Date/Time: [facility] Results Received Date/Time: [facility] Reported Date/Time: Performed By: #### 2 4729W, 24304F, 87586, 02264P, 96416V, 85059W #### [facility] Default [address] [place] [address] SEROTYPE 68 (9V) 2.[address] [facility] Comment on above: Order Comment: [facility] Testing performed at: [facility], [facility] [facility],, [address] [place], , Project Accountant: Osiris Galdamez MD,PhD,BHANU [facility] Collection Date/Time: [facility] Results Received Date/Time: [id number] Quest Reported Date/Time: Performed By: #### 2 4729W, 24641U, 73509, 49853U, 05613I, 41118C #### [facility] [address] [place] [address] SEROTYPE 70 (33F) 28.9 Normal [employer] [place] [employer] Comment on above: Order Comment: [facility] Testing performed at: , [employer],, [address] [place], [address], Project Accountant: Osiris Galdamez MD,PhD,BHANU Quest Collection Date/Time: Quest [...] serotype-specific titers may have less robust responses. [employer] uses a multi-analyte immunodetection (MAID) method. The method employs the [employer] flow cytometric system which measures multiple analytes [...] analytical performance characteristics have been determined by [employer]. It has not been cleared or approved by FDA. This assay has been validated pursuant to the CLIA regulations and used for clinical purposes. For additional information, please refer to http://education.StarSightings/faq/HWE549 (This link is being provided for informational/ educational purposes only.) Performed By: #### 2 4729W, 64861X, 27071, 30769A, 24956X, 91657X #### [facility] Default [address] [place] [address] SEROTYPE 8 (8) 14.6 Normal [facility] Specialist Comment on above: Order Comment: [facility] Testing performed at: [employer] [facility],, [address] [place] [address], , Project Accountant: Osiris Galdamez MD,PhD,BHANU [facility] Collection Date/Time: [facility] Results Received Date/Time: [facility] Reported Date/Time: Performed By: #### 2 4729W, 11138D, 41371, 47780X, 58099Q, 58548J #### [facility] Default [address] [place] [address] SEROTYPE 9 (9N) 1.0 Normal [facility] Specialist Comment on above: Order Comment: [facility] Testing performed at: [employer] [facility],, [address] [place] [address], , Project Accountant: Osiris Galdamez MD,PhD,BHANU [facility] Collection Date/Time: [facility] Results Received Date/Time: [facility] Reported Date/Time: Performed By: #### 2 4729W, 59411Y, 85570, 38736P, 66259U, 00653U #### [facility] [address] [place] [address] CT SINUSES WO CONon 08-06-[address] [...] by: HOSEA GARCIA Date: 2021-08-05 08:48 Normal [facility] MG MAMM DX 3D LT CADon 08-05 MG MAMM DX 3D LT CAD Patient: AKIRA BUITRAGO Exam Date: 08/05/2021 : 1950 Gender:F Ordering : DR MIKO BURRIS . Admission #: [id number] Family : Order #: [id number] CLICK HERE TO VIEW EXAM RADIOLOGY REPORT [...] lung cancer at age 59. LOCATION: [facility] BREAST COMPOSITION: Scattered areas fibroglandular density. [...] M.D. on 08/05/2021 at 09:25 Normal [facility] US BREAST LEFT LIMITEDon US BREAST LEFT LIMITED Patient: AKIRA BUITRAGO Exam Date: 08/05/2021 : 1950 Gender:F Ordering : DR MIKO BURRIS . Admission #: [id number] Family : Order #: [id number] CLICK HERE TO VIEW EXAM RADIOLOGY REPORT [...] lung cancer at age 59. LOCATION: [facility] BREAST COMPOSITION: Scattered areas fibroglandular density. [...] Hosea Garcia M.D. on 08/05/2021 at 09:25 [facility] Vital Signs Date Time Vital Sign Value Performing Clinician Davon longoria 02-11-2024 08:33-0500 Body height 160 cm Renny Orlando DPM Work Phone: [facility] 02-11-2024 08:33-0500 Body mass index (BMI) [Ratio] 22.85 kg/m2 Renny Orlando DPM Work Phone: [facility] 02-11-2024 08:33-0500 Body weight 58.51 kg Renny Brown DPM Work Phone: [facility] 02-11-2024 08:33-0500 Diastolic blood pressure 80 mm[Hg] Renny Brown DPM Work Phone: [facility] 02-11-2024 08:33-0500 Heart rate 81 /min Renny Brown DPM Work Phone: [facility] 02-11-2024 08:33-0500 Systolic blood pressure 126 mm[Hg] Renny Orlando DPM Work Phone: [facility] 01-28-2024 08:34-0400 Body height 160 cm Renny Brown DPM Work Phone: [facility] 01-28-2024 08:34-0400 Body mass index (BMI) [Ratio] 22.85 kg/m2 Renny Brown DPM Work Phone: [facility] 01-28-2024 08:34-0400 Body weight 58.51 kg Renny Orlando DPM Work Phone: [facility] 01-28-2024 08:34-0400 Diastolic blood pressure 80 mm[Hg] Renny Regino DPM Work Phone: [facility] 01-28-2024 08:34-0400 Heart rate 81 /min Renny Orlando DPM Work Phone: [facility] 01-28-2024 08:34-0400 Systolic blood pressure 128 mm[Hg] Renny Brown DPM Work Phone: [facility] 01-14-2024 08:38-0400 Body height 160 cm Rennyasad Orlando DPM Work Phone: [facility] 01-14-2024 08:38-0400 Body mass index (BMI) [Ratio] 22.85 kg/m2 Renny Orlando DPM Work Phone: [facility] 01-14-2024 08:38-0400 Body weight 58.51 kg Renny Orlando DPM Work Phone: [facility] 01-14-2024 08:38-0400 Respiratory rate 18 /min Renny Regino DPM Work Phone: [facility] 12-31-2023 09:01-0400 Body height 160 cm Renny Orlando DPM Work Phone: [facility] 12-31-2023 09:01-0400 Body mass index (BMI) [Ratio] 22.85 kg/m2 Renny Brown DPM Work Phone: [facility] 12-31-2023 09:01-0400 Body weight 58.51 kg Renny Brown DPM Work Phone: [facility] 12-31-2023 09:01-0400 Diastolic blood pressure 75 mm[Hg] Renny Orlando DPM Work Phone: [facility] 12-31-2023 09:01-0400 Heart rate 75 /min Renny Orlando DPM Work Phone: [facility] 12-31-2023 09:01-0400 Respiratory rate 18 /min Renny Regino DPM Work Phone: [facility] 12-31-2023 09:01-0400 Systolic blood pressure 126 mm[Hg] Renny Orlando DPM Work Phone: [facility] 12-17-2023 08:41-0400 Body height 160 cm Renny Orlando DPM Work Phone: [facility] 12-17-2023 08:41-0400 Body mass index (BMI) [Ratio] 22.85 kg/m2 Renny Orlando DPM Work Phone: [facility] 12-17-2023 08:41-0400 Body weight 58.51 kg Renny Brown DPM Work Phone: [facility] 12-17-2023 08:41-0400 Diastolic blood pressure 74 mm[Hg] Renny Orlando DPM Work Phone: [facility] 12-17-2023 08:41-0400 Heart rate 82 /min Renny Orlando DPM Work Phone: [facility] 12-17-2023 08:41-0400 Systolic blood pressure 125 mm[Hg] Renny Orlando DPM Work Phone: [facility] 12-15-2023 08:08-0400 Body height 160 cm Lolis Pleitez IMMIGRATION MANAGER Work Phone: [facility] 12-15-2023 08:08-0400 Body mass index (BMI) [Ratio] 22.82 kg/m2 Lolis Pleitez IMMIGRATION MANAGER Work Phone: [facility] 12-15-2023 08:08-0400 Body weight 58.42 kg Lolis Pleitez IMMIGRATION MANAGER Work Phone: [facility] 12-15-2023 08:08-0400 Diastolic blood pressure 70 mm[Hg] Lolis Pleitez IMMIGRATION MANAGER Work Phone: [facility] 12-15-2023 08:08-0400 Systolic blood pressure 118 mm[Hg] Lolis Pleitez IMMIGRATION MANAGER Work Phone: [facility] 12-03-2023 09:18-0400 Body height 160 cm Renny Orlando DPM Work Phone: [facility] [facility] 12-03-2023 09:18-0400 Body mass index (BMI) [Ratio] 22.5 kg/m2 Renny Orlando DPM Work Phone: [facility] 12-03-2023 09:18-0400 Body weight 57.61 kg Renny Orlando DPM Work Phone: [facility] 12-03-2023 09:18-0400 Diastolic blood pressure 79 mm[Hg] Renny Orlando DPM Work Phone: [facility] 12-03-2023 09:18-0400 Heart rate 78 /min Renny Orlando DPM Work Phone: [facility] 12-03-2023 09:18-0400 Systolic blood pressure 128 mm[Hg] Renny Orlando DPM Work Phone: [facility] Healthcare Encounters Encounter Date Encounter Type Care [...] Available Start: 02-11-2024 End: 02-11-2024 Bamboo flowsheet Rneny Orlando DPM Work Phone: [facility] Start: 02-11-2024 End: 02-11-2024 Bamboo flowsheet Renny Frank Regino DPM Work Phone: [facility] Start: 02-11-2024 End: 02-11-2024 Patient encounter procedure Renny Frank Regino DPM Work Phone: [facility] Comment on above: Verruca plantaris (P rimary Dx); Foot pain, right; Foot pain, left Start: 02-11-2024 End: 02-11-2024 ambulatory RENNY Frank REGINO Not Available Start: 01-28-2024 End: 01-28-2024 Bamboo flowsheet Renny Frank Regino DPM Work Phone: [facility] Start: 01-28-2024 End: 01-28-2024 Bamboo flowsheet Renny Frank Brown DPM Work Phone: [facility] Start: 01-28-2024 End: 01-28-2024 Patient encounter procedure Renny Frank Regino DPM Work Phone: [facility] Comment on above: Verruca plantaris (P rimary Dx); Foot pain, right; Foot pain, left Start: 01-28-2024 End: 01-28-2024 ambulatory RENNY Frank REGINO Not Available Start: 01-14-2024 End: 01-14-2024 Bamboo flowsheet Renny Frank Brown DPM Work Phone: [facility] Start: 01-14-2024 End: 01-14-2024 Bamboo flowsheet Renny Frank Brown DPM Work Phone: [facility] Start: 01-14-2024 End: 01-14-2024 Patient encounter procedure Renny Frank Regino DPM Work Phone: [facility] Comment on above: Verruca plantaris (P rimary Dx); Foot pain, right; Foot pain, left Start: 01-14-2024 End: 01-14-2024 ambulatory RENNY A BROWN Not Available Start: 12-31-2023 End: 12-31-2023 Bamboo flowsheet Renny A Regino DPM Work Phone: [facility] Start: 12-31-2023 End: 12-31-2023 Bamboo flowsheet Renny Marie Regino DPM Work Phone: [facility] Start: 12-31-2023 End: 12-31-2023 Patient encounter procedure Renny Marie Regino DPM Work Phone: [facility] Comment on above: Verruca plantaris (P rimary Dx); Foot pain, right; Foot pain, left Start: 12-31-2023 End: 12-31-2023 ambulatory RENNY Frank REGINO Not Available Start: 12-17-2023 End: 12-17-2023 Bamboo flowsheet Renny Frank Regino DPM Work Phone: [facility] Start: 12-17-2023 End: 12-17-2023 Bamboo flowsheet Renny Marie Brown DPM Work Phone: [facility] Start: 12-17-2023 End: 12-17-2023 Patient encounter procedure Renny Orlando DPM Work Phone: [facility] Comment on above: Verruca plantaris (P rimary Dx); Foot pain, right; Onychomycosis; Toe pain, bilateral; Xerosis cutis; Foot pain, left Start: 12-17-2023 End: 12-17-2023 ambulatory RENNY ORLANDO Not Available Start: 12-15-2023 End: 12-15-2023 Bamboo flowsheet Lolis Pleitez IMMIGRATION MANAGER Work Phone: [facility] Start: 12-15-2023 End: 12-15-2023 Bamboo flowsheet Lolis Pleitez IMMIGRATION MANAGER Work Phone: [facility] Start: 12-15-2023 End: 12-15-2023 Office outpatient visit 15 minutes Lolis Pleitez IMMIGRATION MANAGER Work Phone: [facility] [place] [facility] [address] Comment on above: Migraine with aura a nd without status migrainosus, not intractable (CMS/[facility]) (Primary Dx) Start: 12-15-2023 End: [...] Start: 08-05-2023 End: 08-06-2023 ambulatory Issa VALE Facility:[id number] Start: 07-15-2023 End: 07-15-2023 ambulatory [...] Not Available Start: 04-10-2023 End: 04-10-2023 ambulatory [facility] Start: 11-25-2022 End: 11-25-2022 ambulatory TE[facility] Start: 07-02-2022 End: 07-02-2022 ambulatory [...] . Facility:H1 Start: 05-14-2022 End: 05-14-2022 ambulatory [facility] Start: 01-22-2022 End: 01-23-2022 ambulatory [...] [address] [place] [phone] Keila Faith MD [address] [place] [address] [facility] Start: 12-14-2024 End: 12-14-2024 Patient encounter procedure 12/14/2024 8:20 AM EDT Office Visit [facility] [address] [place] [address] Cristofer Pleitezah, [address] [place] [phone] [facility] [place] [facility] Start: 04-18-2024 End: 04-18-2024 Patient encounter procedure 04/18/2024 9:20 AM EST Office Visit [facility] [address] [place] [phone] Keila Faith MD [address] [place] [address] [facility] Start: 04-07-2024 End: 04-07-2024 Patient encounter procedure 04/07/2024 9:20 AM EST Office Visit [facility] [address] [place] [phone] Keila Faith MD [address] [place] [address] Arrived [facility] Comment on above: Arrived [...] AM EDT Office Visit [facility] [address] [phone] Renny Orlando, SANKET [address] [address] Verruca plantaris (Primary Dx); Foot pain, right; Foot pain, left [facility] Comment on above: Verruca plantaris (P rimary Dx); Foot pain, right; Foot pain, left Start: 12-31-2023 End: 12-31-2023 Patient encounter procedure 12/31/2023 9:10 AM EDT Office Visit [facility] [address] [phone] Renny Orlando DPM [address] [address] Verruca plantaris (Primary Dx); Foot pain, right; [...] procedure 12/14/2023 9:20 AM EDT [facility] [address] [facility] [address] [place] [address] Keila Faith MD [address] [place] [address] [facility] Start: 12-06-2023 Influenza vaccination Influenza Vacc ine (#1) [facility] Start: 12-03-2023 End: 12-03-2023 Patient encounter procedure 12/03/2023 9:30 AM EDT Procedure Visit [facility] [address] [phone] Renny Orlando DPM [address] [address] Verruca plantaris (Primary Dx); Foot pain, right; Foot pain, left; Onychomycosis; Toe pain, bilateral; [facility]erosis cutis [facility] Comment on above: Verruca plantaris (P rimary Dx); Foot pain, right; Foot pain, left; Onychomycosis; Toe pain, bilateral; Xerosis cutis Start: 05-14-2023 End: 05-14-2023 Patient encounter procedure 05/14/2023 8:40 AM EST Office Visit [facility] [address] [phone] Renny Orlando DPM [address] [address] [facility] Start: 12-05-2022 Influenza vaccination Influenza Vacc ine (#1) [facility] Start: 10-27-2018 Pneumococcal Vaccine : 65+ [...] Category Payer Private Health Insurance [employer] [id number] 2021 Unknown [employer] [id number] 2021-Present [address] [place] [address] [id number]. [id number] 2014 Medicare [id number]. [id number]. [id number] 1959 Medicare [id number] 1959 Unknown [id number] 1949 Unknown [id number] 2.840.1.430856.3.579.2. 593 1949 Unknown [id number] 2.840.1.452777.3.579.2. 593 1949 Unknown [id number] .840.1.507348.3.579.2. 593 1949 Unknown [id number] 2.840.1.025674.3.579.2. 593 1949 Unknown [id number] 2.16.840.1.791359.3.579.2. 593 1949 Unknown [id number] 2.16.840.1.213976.3.579.2. 593 1949 Unknown [id number] 2.16.840.1.710181.3.579.2. 593 1949 Unknown [id number] 2.16.840.1.349749.3.579.2. 593 1949 Unknown [id number] 2.16.840.1.342777.3.579.2. 593 1949 Unknown [id number] 2.16.840.1.344651.3.579.2. 593 1949 Unknown [id number] 2.16.840.1.050492.3.579.2. 593 1949 Unknown [id number] 2.16.840.1.254231.3.579.2. 593 1949 Unknown [id number] 2.16.840.1.187466.3.579.2. 593 1949 Unknown [id number] 2.16.840.1.731255.3.579.2. 593 1949 Unknown [id number] 2.16.840.1.537503.3.579.2. 593 1949 Unknown [id number] 2.16.840.1.789414.3.579.2. 593 1949 Unknown [id number] 2.16.840.1.391686.3.579.2. 727 1949 Unknown [id number] 2.16.840.1.244067.3.579.2. 727 1949 Unknown [id number] 2.16.840.1.801997.3.579.2. 1259 1949 Unknown [id number] 2.16.840.1.112342.3.579.2. 1259 1949 Unknown [id number] 2.16.840.1.429584.3.579.2. 1258 1949 Unknown [id number] 2.16.840.1.322683.3.579.2. 1258 1949 Unknown [id number] 2.16.840.1.862635.3.579.2. 1258 1949 Unknown [id number] 2.16.840.1.605145.3.579.2. 1258 1949 Unknown [id number] 2.16.840.1.998127.3.579.2. 1258 1949 Unknown [id number] 2.16.840.1.919296.3.579.2. 1258 1949 Unknown [id number] 2.16.840.1.561242.3.579.2. 1258 1949 Unknown [id number] 2.16.840.1.740093.3.579.2. 1258 1949 Unknown [id number] 2.16.840.1.619644.3.579.2. 1258 1949 Unknown [id number] 2.16.840.1.586607.3.579.2. 1258 1949 Unknown [id number] 2.16.840.1.824142.3.579.2. 1258 1949 Unknown [id number] 2.16840.1.334084.3.579.2. 1258 1949 Unknown [id number] 2.16.840.1.954094.3.579.2. 1258 1949 Unknown [id number] 2.16840.1.999990.3.579.2. 1259 Social History Date Type Detail Facility Start: 04-30-2023 End: 12-03-2023 Tobacco smoking status ILIS Ex-smoker [facility] End: 04-06-2006 History of tobacco use Current smoker [facility] End: 04-06-2006 History of tobacco use Cigarette Smoker [facility] History of tobacco use Passive smoker [facility] Start: 04-30-2023 End: 12-03-2023 Tobacco use and exposure Smokeless tobacco non-user [facility] Start: 05-14-2023 End: 12-03-2023 Alcohol intake Lifetime non-drinker (finding) [facility] Start: 04-30-2023 End: 02-11-2024 History of Social function [facility] Start: 04-30-2023 End: 02-11-2024 Tobacco use panel [facility] Start: 12-12-2022 Alcohol Comment Caffeine intake: non e [facility] Start: 1950 Sex Assigned At Not on file N [facility] Start: 12-31-2023 End: 04-07-2024 Alcoholic beverage intake Ex-drinker (finding) [facility] Start: 12-14-2023 Alcohol Comment Caffeine intak e: none; quit in 2014 [facility] Clinical Notes 05-14-2022 to 04-07-2024 Keila [...] medications or symptoms. documented in this encounter [facility] 02-11-2024 History of Present illness Narrative [...] b.I.d. basis., Disp: 30 mL, Rfl: 11 Khamwer-Rshudoxaeac-Vvemwmnrhf (Breztri Aerosphere) 160-9-4.8 MCG/ACT aerosol, Inhale 1 [...] Partner Violence: Unknown (05/28/2023) Received from [facility] [place] [employer] Fear of Current [...] Renny Orlando DPM documented in this encounter [facility] 01-28-2024 History of Present illness Narrative [...] b.I.d. basis., Disp: 30 mL, Rfl: 11 Tepjrnm-Ajewdfjrlqx-Hcmrccvexs (Breztri Aerosphere) 160-9-4.8 MCG/ACT aerosol, Inhale 1 [...] Partner Violence: Unknown (05/28/2023) Received from [facility] [place] [employer] [facility] Fear of Current [...] Renny Orlando DPM documented in this encounter [facility] 01-14-2024 History of Present illness Narrative [...] b.I.d. basis., Disp: 30 mL, Rfl: 11 Gobqruw-Xvvarvugfcx-Gxzxwfcjje (Breztri Aerosphere) 160-9-4.8 MCG/ACT aerosol, Inhale 1 [...] Partner Violence: Unknown (05/28/2023) Received from [facility] [place] [employer] [facility] Fear of Current [...] Renny Orlando DPM documented in this encounter [facility] 12-31-2023 History of Present illness Narrative [...] b.I.d. basis., Disp: 30 mL, Rfl: 11 Nxddjbc-Aqofgsljevy-Docxvktkkq (Breztri Aerosphere) 160-9-4.8 MCG/ACT aerosol, Inhale 1 [...] Partner Violence: Unknown (05/28/2023) Received from [facility] [place] [employer] [facility] Fear of Current [...] Renny Orlando DPM documented in this encounter [facility] 12-17-2023 History of Present illness Narrative [...] Partner Violence: Unknown (05/28/2023) Received from [facility] [place] [employer] [facility] Fear of Current [...] Renny Orlando DPM documented in this encounter [facility] 12-15-2023 History of Present illness Narrative [...] Haii Aerosphere 160-9-4.8 MCG/ACT aerosol; Generic drug: Eualxvv-Zpijulmvrxe-Rvrrruykfy budesonide 1 MG/2ML nebulizer solution; Commonly known [...] wrist extensors , wrist flexor , and patron attendant strength 5/5. LUE strength deltoid , biceps , triceps , wrist extensors , wrist flexor , and patron attendant strength 5/5. RLE strength iliopsoas, quadriceps, tibialis [...] reflex 1+. LLE Knee reflex 1+. Coordination: Lsrqoo-cv-micc testing normal. Rapid alternating movements are normal. [...] new or worsening symptoms. Lolis Pleitez NP [facility] Advanced Neurology documented in this encounter [facility] 12-03-2023 History of Present illness Narrative [...] Partner Violence: Unknown (05/28/2023) Received from [facility], [facility] [place] [employer] [facility] Fear of Current [...] Renny Orlando DPM documented in this encounter [facility] 06-09-2023 Note Chief Complaint consultation for [...] 1 tab(s), Oral, Daily Flonase 0.05 mg/inh [place], 2 spray(s), Nasal, Daily lactulose 10 g/15 [...] mEq= 1 tab(s (more content not included)... [facility] Comment on above: Result Comment: Elec [...] nostril in the morning and at bedtime. njtnhrusyt-qgvwcpzi-nnqsefpowm (Breztri Aerosphere) 160-9-4.8 mcg/actuation HFA aerosol inhaler [...] as needed Juanita Jenkins MD Interventional Cardiology [facility] (more content not included)... [facility] [...] Prior to Visit Medication Sig Dispense Refill xrfneylcri-itglfqmu-dfheaydxey (Breztri Aerosphere) 160-9-4.8 mcg/actuation HFA aerosol inhaler [...] with myocardial perfusion imaging, performed at the [facility] on 05/26/2022. Informed consent was obtained. 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 4. Myocardial perfusion images will be reported separately. [facility] 05-14-2022 Note Cardiology Follow Up Progress [...] Prior to Visit Medication Sig Dispense Refill jmshmlcsll-mvfxdltn-cuhpcvxiki (Breztri Aerosphere) 160-9-4.8 mcg/actuation HFA aerosol inhaler [...] no worse with exercise. [facility] Evaluation note Diagnosis Verruca plantaris- Primary [...] section and content) DATE CREATED AUTHOR 08/17/2021 [facility] dical Specialist DATE CREATED AUTHOR AUTHOR'S ORGANIZ ATION 07/05/2022 [facility] DATE CREATED AUTHOR AUTHOR'S ORGANIZ ATION 05/11/2023 [facility] DATE CREATED AUTHOR AUTHOR'S ORGANIZ ATION 08/10/2023 [facility] DATE CREATED AUTHOR AUTHOR'S ORGANIZ ATION 04/08/2024 [facility] dical Specialists EPIC Care Teams (unrecognized sec tion and content) Detailer Furniture Relationship Specialty Start Date End Date Miko Burirs MD [address] [place] [address] PCP - General Family Medicine 04/30/23 Detailer Furniture Relationship Specialty Start Date End Date Miko Burris MD [address] [place] [address] PCP - General Family Medicine 04/30/23 Detailer Furniture Relationship Specialty Start Date End Date Miko Burris MD [address] [place] [address] PCP - General Family Medicine 04/30/23 Detailer Furniture Relationship Specialty Start Date End Date Miko Burris MD [address] [phone] PCP - General Family Medicine 04/30/23 Detailer Furniture Relationship Specialty Start Date End Date Miko Burris MD [address] [phone] PCP - General Family Medicine 04/30/23 Detailer Furniture Relationship Specialty Start Date End Date Miko Burris MD [address] [phone] PCP - General Family Medicine 04/30/23 Detailer Furniture Relationship Specialty Start Date End Date Miko Burris MD [address] [phone] PCP - General Family Medicine 04/30/23 Detailer Furniture Relationship Specialty Start Date End Date Miko Burris MD [address] [phone] PCP - General Family Medicine 04/30/23 Detailer Furniture Relationship Specialty Start Date End Date Miko Burris MD [address] [facility] [place] [address] PCP - General Family Medicine 04/30/23 Detailer Furniture Relationship Specialty Start Date End Date Miko Burris MD [address] [facility] [place] [address] PCP - General Family Medicine 04/30/23 Reason [...] BE BASED ON THE PRIMARY CLINICAL RECORDS. [facility] [employer] [facility]. provides no warranty or guarantee of the accuracy or completeness of information in this document.
== END 2024-04-22 09:19 | disposition home or self-care (01) ==
LOC: EC 09:18
PROVIDERS: PCP Family Medicine; Visit Provider Orthopaedic Surgery Orthopaedic Surgery of the Spine
DX: M54.2 Cervicalgia (principal)
CPT/HCPCS: 72040

== ENCOUNTER 2024-05-06 07:35 | Outpatient (OUT) | payer MEDICARE, OTHER, SELFPAY ==
--- OUTSIDE RECORDS SUMMARY | 2024-05-06 07:37 | XMS_ITS | CCD ---
Demographics Address [address] [place] [address] Home Phone Mobile Phone Preferred Language en Marital Status Buddhist Affiliation Unknown Race White Ethnic Group Not or Lati no Author Organization [facility] Team Providers Care Anesthesiologist And Critical Care Name Role Phone HOY ., DR ALVARADO [...] DR ALVARADO Primary Care Unavailable ZIEBER, DR HSOEA [employer] Unavailable ALGHOTHANI, MOHAMAD Admitting Unavailable [...] Unavailable Riveray Miko FRANKLIN Primary Care Provider [phone] Issa VALE Attending Unavailable Issa VALE Attending [...] Amoxicillin; Translations: [AMOXICILLIN] Drug Allergy 3 [facility] Repository (3 sources) Morphine; Translations: [MORPHINE] Drug Allergy 3 [facility] Repository (20 sources) Amoxicillin Drug Allergy 3 Itching, Other, Unknown [facility] (20 sources) Mold Extract Drug Allergy 4 Unknown [facility] (20 sources) Morphine Drug Allergy 3 Itching, Other [facility] (1 source) Penicillin; Translations: [penicillin] Drug Allergy [facility] Repository (1 source) No Known Medication Allergies; Translations: [No Known Medication Allergies] Propensity to adverse reactions (disorder) [facility] Repository Medications Current Medications Medication Drug [...] 1 puff Daily Active 168 hr cloNIDine 0.19194 mg/hr transdermal system (20 sources) Central alpha-2 [...] Range Facility Outside Colonoscopyon 2023 Outside Colonoscopy [id number] 50 [id number]#[id number] 0TIFF Normal [facility] Reminderson 08-07-2023 Reminders - From: Kandi Cesar LPN To: N - Clinical; Sent: 08/07/2023 07:59:01 EDT Show up: 07/06/2033 07:59:00 EDT Subject: colonoscopy recall Due Date/Time: 08/04/2033 07:00:00 EDT Reminder/Recall If patient is in good health, she is due for screening colonoscopy 08/04/2033. Normal [facility] Consent for Procedure/Surger yon 06-10-2023 Consent for Procedure/Surgery [id number] 0TIFF Normal [facility] Ambulatory Visit Summaryon 0 06-09-2023 Ambulatory [...] oral tablet) fluticasone nasal (Flonase 0.05 mg/inh [place]) furosemide (Lasix 20 mg Tab) lactulose (lactulose [...] Unchanged fluticasone nasal (Flonase 0.05 mg/ inh [place]) 2 Sprays Nasal Inhalation Every day Contact [...] for choosing us for your care. Normal [facility] Physician Referralon 024 Physician Referral [id number] 20 [id number] 0TIFF Normal [facility] Office Visiton 04-10-2023 Follow-up visit [id number] BuitragoShirley ly D 1950 F Date Provider Department Center 04/10/2023 3848-JUANITA JENKINS [facility] No family history on file Level of Service:16345 IN OFFICE/OUTPATIENT ESTABLISHED LOW MDM 20 MIN Normal [facility] Office Visiton 11-25-2022 Follow-up visit [id number] BuitragoShirley ly D 1950 F Date Provider Department Center 11/25/2022 120-TEGAN PAIZ [facility] No family history on file Level of Service:28308 IN OFFICE/OUTPATIENT ESTABLISHED MOD MDM 30-39 MIN Normal [facility] CALCIUMon 07-02-2022 Calcium [Mass/Vol] 9.8 mg/dL Normal 8.5-10.1 [facility] Comment on above: Performed By: #### C A, CREA #### [facility] [address] [address] [address] Zuly Medina CREATININEon 07-02-2022 Creatinine [Mass/Vol] 1.41 mg/dL Critically high 0.55-1.02 [facility] Comment on above: Performed By: #### C A, CREA #### [facility] [address] [address] [address] Zuly Medina EGFR-AF GUAMANIAN 44 mL/min/1.73m2 Critically low >=60 [facility] Comment on above: Performed By: #### C Frank, CREA #### [facility] [address] [address] [address] Zuly Medina EGFR-NON AF GUAMANIAN 37 mL/min/1.73m2 Critically low >=60 [facility] Comment on above: Performed By: #### C Frank, CREA #### [facility] [address] [address] [address] Zuly Medina MRI LSPINE WO CONon [...] TESSA ESTEVES Date: 2022-06-02 07:58 Normal [facility] VC VENOUS REFLUX NOEL LMTon 0 05-30-2022 VC VENOUS REFLUX NOEL LMT Patient: AKIRA BUITRAGO Exam Date: 05/30/2022 : 1950 Gender:F Ordering : DR MIKO BURRIS . Admission #: [id number] Family : Order #: [id number] CLICK HERE TO VIEW EXAM RADIOLOGY REPORT [...] thrombus. Compressibility: Normal. Flow: Deep venous reflux. 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 Order #: [id number] CLICK HERE TO VIEW EXAM RADIOLOGY REPORT [...] Garcia M.D. on 05/27/2022 at 13:00 Normal [facility] XR LSPINE MIN 4 VIEWSon 05-07 [...] HOSEA GARCIA Date: 2022-05-23 14:32 Normal [facility] Covid-19 PCR (CVDTBH)on 05-07 SARS-CoV-2 (COVID-19) RNA MARY+probe Ql (Unsp spec) Not detected Normal NOT DETECTED [facility] Comment on above: Result Comment: This test is not yet approved or cleared by the [place] FDA. When there are no FDA-approved or cleared tests available, and other criteria are met, FDA can make tests available under an emergency access mechanism called an Emergency Use Authorization (EUA). The EUA for this test is supported by the [place] of Health and Human Service's (HHS's) declaration [...] SARS-CoV-2. Performed By: #### C VDTBH #### [facility] [address] [place] [address] Dr. Zuly Medina INFLUENZA A AND B AGon 05-22 [facility] SEE BELOW Normal [facility] Comment on above: Result Comment: Nega tive for Flu A protein angiten. Infection due to Flu A cannot be ruled out. Flu A angiten in the sample may be below the detection limit of the test. Performed By: #### I NFLUAB #### [facility] [address] [place] [address] Dr. [facility]uly [facility] Normal [facility] Comment on above: Result Comment: Nega tive for Flu B protein antigen. Infection due to Flu B cannot be ruled out. Flu B antigen in the sample may be below the detection limit of the test. Performed By: #### I NFLUAB #### [facility] [address] [place] [address] Dr. Zuly Medina INFLUENZA A AG Negative Normal NEGATIVE SEE COMMENT [facility] Comment on above: Performed By: #### I NFLUAB #### [facility] [address] [place] [address] Dr. Zuly Medina INFLUENZA B AG Negative Normal NEGATIVE SEE COMMENT [facility] Comment on above: Performed By: #### I NFLUAB #### [facility] [address] [place] [address] Dr. Zuly Medina ECHOCARDIO M/2D COMPLETEon 0 05-14-2022 ECHOCARDIO M/2D COMPLETE Patient: AKIRA BUITRAGO Exam Date: 05/14/2022 : 1950 Gender:F Ordering : BROWNNany ALISHA Admission #: [id number] Family : DR MIKO BURRIS . Order #: [id number] CLICK HERE TO VIEW EXAM ECHOCARDIOGRAM REPORT [...] Garcia M.D. on 05/15/2022 at 18:51 Normal [facility] Office Visiton 05-14-2022 Follow-up visit [id number] Shirley Buitrago 1950 F Date Provider Department Center 05/14/2022 3848-JUANITA JENKINS [facility] No family history on file Level of Service:34408 IN OFFICE/OUTPATIENT ESTABLISHED MOD [facility] 30-39 MIN Reason for Visit and Comments: Hyperlipidemia [182] Valve Disorder [3372] Normal [facility] MG MAMM SCREEN 3D NOEL CADon 01-22-2022 MG MAMM SCREEN 3D NOEL CAD Patient: AKIRA BUITRAGODexter Exam Date: 01/22/2022 : 1950 Gender:F Ordering : DR MIKO BURRIS . Admission #: [id number] Family : Order #: [id number] CLICK HERE TO VIEW EXAM RADIOLOGY REPORT [...] lung cancer at age 59. LOCATION: [facility] BREAST COMPOSITION: Scattered areas fibroglandular [...] M.D. on 01/22/2022 at 14:36 Normal [facility] CALCIUMon 12-31-2021 Calcium [Mass/Vol] 10.0 mg/dL Normal 8.5-10.1 [facility] Comment on above: Performed By: #### Oliverio SIMS [place] #### [facility] [address] [place] [address] Dr. Zuly Medina CREATININEon 12-31-2021 Creatinine [Mass/Vol] 1.33 mg/dL Critically high 0.55-1.02 [facility] Comment on above: Performed By: #### CHIDI MCDANIEL #### [facility] [address] [place] [address] Dr. Zuly Medina EGFR-AF GUAMANIAN 48 mL/min/1.73m2 Critically low >=60 [facility] Comment on above: Performed By: #### CHIDI MCDANIEL #### [facility] [address] [place] [address] Dr. Zuly Medina EGFR-NON AF GUAMANIAN 39 mL/min/1.73m2 Critically low >=60 [facility] Comment on above: Performed By: #### CHIDI MCDANIEL #### [facility] [address] [place] [address] Dr. Zuly Medina Covid-19 PCR (CVDTB)on 12-06 SARS-CoV-2 (COVID-19) RNA MARY+probe Ql (Unsp spec) Not detected Normal NOT DETECTED [facility] Comment on above: Result Comment: This test is not yet approved or cleared by the [place] FDA. When there are no FDA-approved or cleared tests available, and other criteria are met, FDA can make tests available under an emergency access mechanism called an Emergency Use Authorization (EUA). The EUA for this test is supported by the [place] of Health and Human Service's (HHS's) [...] SARS-CoV-2. Performed By: #### C VDTBH #### [facility] [address] [place] [address] Dr. Zuly Medina T4, T3U, FTI LABCORPon 11-15 Free Thyroxine Index 2.7 Normal 1.2-4.9 [facility] Comment on above: Performed By: #### C VDTBH #### [facility] [address] [place] [address] Dr. Zuly Medina T3 Uptake 32 % Normal 24-39 [facility] Comment on above: Performed By: #### C VDTBH #### [facility] [address] [place] [address] Dr. Zuly Medina T4 [Mass/Vol] 8.5 ug/dL Normal 4.5-12.0 [facility] Comment on above: Performed By: #### C VDTBH #### [facility] [address] [place] [address] Dr. Zuly Medina VIT D 25-OH LABCORPon 2021 Vitamin D, 25-Hydroxy 114.0 ng/mL Critically high 30.0-100.0 [facility] Comment on above: Result Comment: Jenny min D deficiency has been defined by the [place] of Medicine and an Endocrine Society practice guideline as a level of serum 25-OH vitamin D less than 20 ng/mL (1,2). The Endocrine Society went on to further define vitamin D insufficiency as a level between 21 and 29 ng/mL (2). 1. IOM ([place] of Medicine). 2010. Dietary reference intakes for calcium and D. Steve [place]: The National Academies Press. 2. Anel MF, Chandrika NC, Ronaldo MCCALLUM, et al. Evaluation, treatment, and prevention of vitamin D deficiency: an Endocrine Society clinical practice guideline. JCEM. 2010; 96(7):1911-30. Performed By: #### V ITADLC #### [facility] [address] [place] [address] Dr. Zuly Medina CBC AUTO DIFFon 11-14-2021 BASO # 0.0 103/ul Normal 0.0-0.1 [facility] Comment on above: Performed By: #### Oliverio SIMS, [place] #### [facility] [address] [place] [address] Dr. Zuly Medina Basophils/100 WBC (Bld) 0.4 % Normal 0.2-2.0 [facility] Comment on above: Performed By: #### Oliverio SIMS, CA #### [facility] [address] [place] [address] Dr. Zuly Medina EO # 0.3 103/ul Normal 0.0-0.7 [facility] Comment on above: Performed By: #### Oliverio SIMS, CA #### [facility] [address] [place] [address] Dr. Zuly Medina Eosinophils/100 WBC (Bld) 4.1 % Normal 0.9-7.0 [facility] Comment on above: Performed By: #### Oliverio SIMS, CA #### [facility] [address] [place] [address] Dr. Zuly Medina Erythrocyte distribution width (RBC) [Ratio] 14.1 % Normal 11.0-15.0 [facility] Comment on above: Performed By: #### Oliverio SIMS, CA #### [facility] [address] [place] [address] Dr. Zuly Medina Hematocrit (Bld) [Volume fraction] 36.0 % Normal 36.0-48.0 [facility] Comment on above: Performed By: #### Oliverio SIMS, CA #### [facility] [address] [place] [address] Dr. Zuly Medina Hemoglobin (Bld) [Mass/Vol] 11.6 g/dL Critically low 12.0-16.0 [facility] Comment on above: Performed By: #### CHIDI MCDANIEL #### [facility] [address] [place] [address] Dr. Zuly Medina IG # 0.01 10e3/ul Normal 0.00-0.03 [facility] Comment on above: Performed By: #### CHIDI MCDANIEL #### [facility] [address] [place] [address] Dr. Zuly Medina IG % 0.1 % Normal 0.0-0.5 [facility] Comment on above: Performed By: #### CHIDI MCDANIEL #### [facility] [address] [place] [address] Dr. Zuly Medina LYMPH # 1.3 103/ul Normal 1.2-3.8 [facility] Comment on above: Performed By: #### CHIDI MCDANIEL #### [facility] [address] [place] [address] Dr. Zuly Medina Lymphocytes/100 WBC (Bld) 19.3 % Critically low 20.5-60.0 [facility] Comment on above: Performed By: #### CHIDI MCDANIEL #### [facility] [address] [place] [address] Dr. Zuly Medina MANUAL DIFF REQ NO Normal [facility] Comment on above: Performed By: #### CHIDI MCDANIEL #### [facility] [address] [place] [address] Dr. Zuly Medina MCH (RBC) [Entitic mass] 31.4 pg Normal 26.7-34.0 [facility] Comment on above: Performed By: #### CHIDI MCDANIEL #### [facility] [address] [place] [address] Dr. Zuly Medina MCHC (RBC) [Mass/Vol] 32.2 g/dL Normal 29.9-35.2 [facility] Comment on above: Performed By: #### CHIDI MCDANIEL #### [facility] [address] [place], [place] [id number] Dr. Zuly Medina MCV (RBC) [Entitic vol] 97.6 fL Normal 81.0-99.0 [facility] Comment on above: Performed By: #### CHIDI MCDANIEL #### [facility] [address] [place] [address] Dr. Zuly Medina MONO # 0.8 103/ul Normal 0.3-0.8 [facility] Comment on above: Performed By: #### CHIDI MCDANIEL #### [facility] [address] [place] [address] Dr. Zuly Medina Monocytes/100 WBC (Bld) 11.8 % Normal 1.7-12.0 [facility] Comment on above: Performed By: #### CHIDI MCDANIEL #### [facility] [address] [place] [address] Dr. Zuly Medina NEUT # 4.4 103/ul Normal 1.4-6.5 [facility] Comment on above: Performed By: #### CHIDI MCDANIEL #### [facility] [address] [place] [address] Dr. Zuly Medina Neutrophils/100 WBC (Bld) 64.3 % Normal 43.0-75.0 [facility] Comment on above: Performed By: #### CHIDI MCDANIEL #### [facility] [address] [place] [address] Dr. Zuly Medina Platelet mean volume (Bld) [Entitic vol] 10.1 fL Normal 9.5-13.5 [facility] Comment on above: Performed By: #### CHIDI MCDANIEL #### [facility] [address] [place] [address] Dr. Zuly Medina PLT 311 103/ul Normal 150-450 [facility] Comment on above: Performed By: #### CHIDI MCDANIEL #### [facility] [address] [place] [address] Dr. Zuly Meidna RBC 3.69 106/ul Critically low 4.20-5.40 [facility] Comment on above: Performed By: #### Oliverio SIMSCHIDI #### [facility] [address] [address] [address] Zuly Medina WBC 6.9 103/ul Normal 4.0-11.0 [facility] Comment on above: Performed By: #### C CHIDI SIMS #### [facility] [address] [address] [address] Zuly Medina GLYCOHEMOGLOBIN A1Con 2021 ADA RECOMMENDATION SEE BELOW Normal [facility] Comment on above: Result Comment: ADA RECOMMENDED LIMIT 4.0 - 6.0 ADA THERAPEUTIC TARGET < 7.0 ACTION SUGGESTED > 7.0 Performed By: #### A 1C #### [facility] [address] [address] [address] Zuly Medina Glucose [Mass/Vol] 103 mg/dL Normal [facility] Comment on above: Performed By: #### A 1C #### [facility] [address] [place] [address] Dr. Zuly Medina HbA1c (Bld) [Mass fraction] 5.2 % Normal 4.5-6.2 [facility] Comment on above: Performed By: #### A 1C #### [facility] [address] [address] [address] Zuly Medina IRONon 11-14-2021 Iron [Mass/Vol] 60.0 ug/dL Normal 50.0-170.0 [facility] Comment on above: Performed By: #### C VDTB #### [facility] [address] [place] [address] Dr. Zuly Medina LIPID PROFILEon 11-14-2021 CHOL-HDL RATIO NORM SEE BELOW Normal [facility] Comment on above: Result Comment: 3.3 - 4.4 LOW RISK 4.4 - 7.1 AVERAGE RISK 7.1 - 11.0 MODERATE RISK >11.0 HIGH RISK Performed By: #### CHIDI MCDANIEL #### [facility] [address] [place] [address] Dr. Zuly Medina Cholesterol [Mass/Vol] 145 mg/dL Normal <=200 [facility] Comment on above: Performed By: #### CHIDI MCDANIEL #### [facility] [address] [address] [address] Zuly Medina Cholesterol in HDL [Mass/Vol] 65 mg/dL Critically high 40-60 [facility] Comment on above: Performed By: #### Oliverio SIMS [place] #### [facility] [address] [address] [address] Zuly Medina Cholesterol in LDL [Mass/Vol] 72.2 mg/dL Normal [facility] Comment on above: Performed By: #### Oliverio SIMS CA #### [facility] [address] [address] [address] Zuly Medina Cholesterol.total/Ch olesterol in HDL [Mass ratio] 2.2 {ratio} Normal [facility] Comment on above: Performed By: #### Oliverio SIMS CA #### [facility] [address] [place] [address] Dr. Zuly Medina HDL NORMAL > or = 60 mg/dl - LO W CARDIOVASCULAR RISK <40 mg/dl - HIGH CARDIOVASCULAR RISK Normal [facility] Comment on above: Performed By: #### CHIDI MCDANIEL #### [facility] [address] [address] [address] Zuly Medina LDL CALC NORMAL SEE BELOW Normal [facility] Comment on above: Result Comment: <100 mg/dl OPTIMAL 100 - 129 mg/dl NEAR OR ABOVE OPTIMAL 130 - 159 mg/dl BORDERLINE HIGH 160 - 189 mg/dl HIGH >190 mg/dl VERY HIGH Performed By: #### CHIDI MCDANIEL #### [facility] [address] [address] [address] Zuly Medina Triglyceride [Mass/Vol] 39 mg/dL Normal <=150 [facility] Comment on above: Performed By: #### CHIDI MCDANIEL #### [facility] [address] [place] [address] Dr. Zuly Medina VLDL CALC 7.8 mg/dL Normal [facility] Comment on above: Performed By: #### CHIDI MCDANIEL #### [facility] [address] [address] [address] Zuly Medina PROF 14(COMP METB)on 022 Albumin [Mass/Vol] 3.8 g/dL Normal 3.4-5.0 [facility] Comment on above: Performed By: #### CHIDI MCDANIEL #### [facility] [address] [place] [address] Dr. Zuly Medina Albumin/Globulin [Mass ratio] 1.4 {ratio} Normal [facility] Comment on above: Performed By: #### CHIDI MCDANIEL #### [facility] [address] [address] [address] Zuly Medina ALP [Catalytic activity/Vol] 41 U/L Critically low 46-116 [facility] Comment on above: Performed By: #### CHIDI MCDANIEL #### [facility] [address] [place] [address] Dr. Zuly Medina ALT [Catalytic activity/Vol] 20 U/L Normal 14-59 [facility] Comment on above: Performed By: #### CHIDI MCDANIEL #### [facility] [address] [place] [address] Dr. Zuly Medina Anion gap [Moles/Vol] 8.2 mmol/L Normal [facility] Comment on above: Performed By: #### CHIDI MCDANIEL #### [facility] [address] [place] [address] Dr. Zuly Medina AST [Catalytic activity/Vol] 25 U/L Normal 15-37 [facility] Comment on above: Performed By: #### CHIDI MCDANIEL #### [facility] [address] [address] [address] Zuly Medina Bilirubin [Mass/Vol] 0.4 mg/dL Normal 0.2-1.0 [facility] Comment on above: Performed By: #### CHIDI MCDANIEL #### [facility] [address] [address] [address] Zuly Medina Calcium [Mass/Vol] 10.1 mg/dL Normal 8.5-10.1 [facility] Comment on above: Performed By: #### CHIDI MCDANIEL #### [facility] [address] [address] [address] Zuly Medina Chloride [Moles/Vol] 104 mmol/L Normal 98-107 [facility] Comment on above: Performed By: #### Oliverio SIMS, [place] #### [facility] [address] [place] [address] Dr. Zuly Medina CO2 [Moles/Vol] 31.6 mmol/L Normal 21.0-32.0 [facility] Comment on above: Performed By: #### Oliverio SIMS, [place] #### [facility] [address] [place] [address] Dr. Zuly Medina Creatinine [Mass/Vol] 1.44 mg/dL Critically high 0.55-1.02 [facility] Comment on above: Performed By: #### Oliverio SIMS CA #### [facility] [address] [place] [address] Dr. Zuly Medina EGFR-AF GUAMANIAN 43 mL/min/1.73m2 Critically low >=60 [facility] Comment on above: Performed By: #### Oliverio SIMS, CA #### [facility] [address] [place] [address] Dr. Zuly Medina EGFR-NON AF GUAMANIAN 36 mL/min/1.73m2 Critically low >=60 [facility] Comment on above: Performed By: #### Oliverio SIMS CA #### [facility] [address] [place] [address] Dr. Zuly Medina Globulin (S) [Mass/Vol] 2.8 g/dL Normal [facility] Comment on above: Performed By: #### Oliverio SIMS, [place] #### [facility] [address] [place] [address] Dr. Zuly Medina Glucose [Mass/Vol] 100 mg/dL Normal 74-106 [facility] Comment on above: Performed By: #### Oliverio SIMS, [place] #### [facility] [address] [place] [address] Dr. Zuly Medina Potassium [Moles/Vol] 3.8 mmol/L Normal 3.5-5.1 [facility] Comment on above: Performed By: #### Oliverio SIMS, [place] #### [facility] [address] [address] [address] Zuly Medina Protein [Mass/Vol] 6.6 g/dL Normal 6.4-8.2 [facility] Comment on above: Performed By: #### C BETH[place], [place] #### [facility] [address] [address] [address] Zuly Medina Sodium [Moles/Vol] 140 mmol/L Normal 136-145 [facility] Comment on above: Performed By: #### [place], [place] #### [facility] [address] [place] [address] Dr. Zuly Medina Urea nitrogen [Mass/Vol] 28.0 mg/dL Critically high 7.0-18.0 [facility] Comment on above: Performed By: #### [place] #### [facility] [address] [place] [address] Dr. Zuly Medina Urea nitrogen/Creatinine [Mass ratio] 19.4 mg/mg Normal [facility] Comment on above: Performed By: #### [place] #### [facility] [address] [place] [address] Dr. Zuly Medina TSHon 11-14-2021 TSH 1.676 uIU/mL Normal 0.358-3.740 [facility] Comment on above: Performed By: #### [place] #### [facility] [address] [place] [address] Dr. Zuly Medina [facility]-19 [facility]on 10-05 SARS-CoV-2 (COVID-19) RNA MARY+probe Ql (Unsp spec) Not detected Normal NOT DETECTED [facility] Comment on [...] for this test is supported by the [place] of Health and Human Service's declaration that [...] used). Performed By: #### C VDTBH #### [facility] [address] [place] [address] Dr. Zuly Medina CREATININEon 09-18-2021 Creatinine [Mass/Vol] 1.33 mg/dL Critically high 0.55-1.02 [facility] Comment on above: Performed By: #### [place] #### [facility] [address] [place] [address] Dr. Zuly Medina EGFR-AF GUAMANIAN 48 mL/min/1.73m2 Critically low >=60 [facility] Comment on above: Performed By: #### [place] #### [facility] [address] [place] [address] Dr. Zuly Medina EGFR-NON AF GUAMANIAN 39 mL/min/1.73m2 Critically low >=60 [facility] Comment on above: Performed By: #### [place] #### [facility] [address] [place] [address] Dr. Zuly Medina MRI BRAIN WO W [...] HOSEA GARCIA Date: 2021-09-18 16:23 Normal [facility] Covid-19 PCR ([facility]on 08-05 SARS-CoV-2 (COVID-19) RNA MARY+probe Ql (Unsp spec) Not detected Normal NOT DETECTED [facility] Comment on above: Result Comment: This test is not yet approved or cleared by the [place] FDA. When there are no FDA-approved or cleared tests available, and other criteria are met, FDA can make tests available under an emergency access mechanism called an Emergency Use Authorization (EUA). The EUA for this test is supported by the [place] of Health and Human Service's (HHS's) [...] consistent with SARS-CoV-2. Performed By: #### [facility] #### [facility] [address] [place] [address] Dr. Zuly Medina SYMPTOMATIC COVID-19 ANTIGEN on 08-23-2021 EUA Statement SEE BELOW Normal [facility] Comment on above: Result Comment: This [...] sooner. Performed By: #### C VDTB #### [facility] [address] [place] [address] Dr. Zuly Medina SARS-CoV-2 (COVID-19) RNA MARY+probe Ql (Unsp spec) Negative Normal NEGATIVE [facility] Comment on above: Performed By: #### C VDTB #### [facility] [address] [place] [address] Dr. 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 It has not been cleared or approved by the U.S. Food and Drug Administration. This assay has been validated pursuant to the CLIA regulations and is used for clinical purposes. Performed By: #### 2 4729W, 54435I, 13546, 62349A, 34758L, 76451Z #### [facility] [address] [place] [address] TETANUS ANTITOXOID 4.67 IU/mL Normal [facility] Comment on above: Order Comment: [facility] performed at: [facility], [address] , [place], [place], , Ground Support Agent: Sahil Dyson M.D.,PhD [facility] Date/Time: [facility] [...] analytical performance characteristics have been determined by [facility] [place]. It has not been cleared or approved by the U.S. Food and Drug Administration. This assay has been validated pursuant to the CLIA regulations and is used for clinical purposes. 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[employer] Comment on above: Order Comment: [facility] performed at: [facility], [facility], [address] [facility], [address] [place] [address], [address], Ground Support Agent: Thony Haley MD [facility] Date/Time: [facility] Results Received Date/Time: [facility] Reported Date/Time: Performed By: #### 2 4729W, 44028K, 73723, 12041P, 03838J, 54899D #### [facility] [address] [place] [address] Q - IGE,SERUMon 08-09-2021 IMMUNOGLOBULIN E 44 kU/L Normal [facility] Specialist Comment on above: Order Comment: [facility] performed at: [employer], [facility], [address] , [address] [place] [address], [address] [place] [address], Ground Support Agent: Thony Haley MD [facility] Date/Time: [facility] Results Received Date/Time: [facility] Reported Date/Time: Performed By: #### 2 4729W, 48574J, 64504, 06055A, 69039O, 94141G #### [facility] [address] [place] [address] Q - IGG,SERUMon 08-09-2021 IMMUNOGLOBULIN G 895 mg/dL Normal 600-1540 [facility] Supervisor [employer] Comment on above: Order Comment: [facility] performed at: [place], [facility], [address] , [address] [place] [address], [address] [place] [address], Ground Support Agent: Thony Haley MD [facility] Date/Time: [facility] Results Received Date/Time: [facility] Reported Date/Time: Performed By: #### 2 4729W, 91206Y, 93776, 53629M, 77444J, 39236Q #### [facility] [address] [place] [address] Q - IGM,SERUMon 08-09-2021 IMMUNOGLOBULIN M 158 mg/dL Normal 50-300 [facility] Supervisor [employer] Comment on above: Order Comment: [facility] performed at: [facility], [address], [address] [place] [address], [address] [place] [address], Ground Support Agent: Thony Haley MD [facility] Date/Time: [facility] Results Received Date/Time: [facility] Reported Date/Time: Performed By: #### 2 4729W, 91224G, 46292, 83681G, 57202G, 58699X #### [facility] [address] [place] [address] Q - Strep pneumo Ab 23 serot ypeson 08-09-2021 SEROTYPE 1 (1) 9.5 Normal [facility] Specialist Comment on above: Order Comment: [facility] performed at: [facility], [facility],, [address] [place], [place], , Ground Support Agent: Osiris Galdamez MD,PhD,BHANU [facility] Date/Time: [facility] Results Received Date/Time: [facility] Reported Date/Time: Performed By: #### 2 4729W, 59908G, 80295, 63969A, 72273M, 63783E #### [facility] [address] [place] [address] SEROTYPE 12 (12F) 1.0 Normal [facility] Comment on above: Order Comment: [facility] performed at: [facility], [facility],, [facility] [place], , Ground Support Agent: Osiris Galdamez MD,PhD,BHANU [facility] Date/Time: [facility] Results Received Date/Time: [facility] Reported Date/Time: Performed By: #### 2 4729W, 97951T, 07831, 47356E, 47983E, 68998N #### [facility] [address] [place] [address] SEROTYPE 14 (14) 3.3 [facility] Comment on above: Order Comment: [facility] performed at: [facility], [facility],, [address] [place], [address], Ground Support Agent: Osiris Galdamez MD,PhD,BHANU [facility] Date/Time: [facility] Results Received Date/Time: [facility] Reported Date/Time: Performed By: #### 2 4729W, 29167Y, 14682, 93286M, 01779Y, 41642U #### [facility] [address] [place] [address] SEROTYPE 17 (17F) 1.2 Normal [facility] Comment on above: Order Comment: [facility] performed at: [facility], [facility],, [address] [place] [address], , Ground Support Agent: Osiris Galdamez MD,PhD,BHANU [facility] Date/Time: [facility] Results Received Date/Time: [facility] Reported Date/Time: Performed By: #### 2 4729W, 88264U, 89970, 26506Z, 14605R, 94929P #### [facility] [address] [place] [address] SEROTYPE 19 (19F) 2.8 Normal [facility] Comment on above: Order Comment: [facility] performed at: [facility], [facility],, [address] [place] [address], , Ground Support Agent: Osiris Galdamez MD,PhD,BHANU [facility] Date/Time: [facility] Results Received Date/Time: [facility] Reported Date/Time: Performed By: #### 2 4729W, 40786J, 18394, 38696H, 54265X, 12360H #### [facility] Default [address] [place] [address] SEROTYPE 2 (2) 7.2 Normal [facility] Supervisor [employer] Comment on above: Order Comment: [facility] performed at: [facility], [facility],, [address] [place] [address], , Ground Support Agent: Osiris Galdamez MD,PhD,BHANU [facility] Date/Time: [facility] Results Received Date/Time: [facility] Reported Date/Time: Performed By: #### 2 4729W, 92314U, 07272, 86142O, 48285Q, 56094S #### [facility] [address] [place] [address] SEROTYPE 20 (20) 3.4 Normal [facility] Comment on above: Order Comment: [facility] performed at: [facility], [facility],, [address] [place] [address], , Ground Support Agent: Osiris Galdamez MD,PhD,BHANU [facility] Date/Time: [facility] Results Received Date/Time: [facility] Reported Date/Time: Performed By: #### 2 4729W, 12846V, 03268, 56338T, 02086Z, 85171J #### [facility] Default [address] [place] [address] SEROTYPE 22 (22F) 5.9 [facility] Comment on above: Order Comment: [facility] performed at: [facility], [facility],, [address] [place] [address], , Ground Support Agent: Osiris Galdamez MD,PhD,BHANU [facility] Date/Time: [facility] Results Received Date/Time: [facility] Reported Date/Time: Performed By: #### 2 4729W, 25637Z, 59271, 77751I, 26443N, 52835R #### [facility] Default [address] [place] [address] SEROTYPE 23 (23F) 5.2 [facility] Comment on above: Order Comment: [facility] performed at: [facility], [facility],, [address] [place] [address], , Ground Support Agent: Osiris Galdamez MD,PhD,BHANU [facility] Date/Time: [facility] Results Received Date/Time: [facility] Reported Date/Time: Performed By: #### 2 4729W, 23674U, 77192, 29047A, 94543W, 73110U #### [facility] Default [address] [place] [address] SEROTYPE 26 (6B) 18.8 Normal [facility] Supervisor [employer] Comment on above: Order Comment: [facility] performed at: [employer], [facility],, [address] [place] [address], , Ground Support Agent: Osiris Galdamez MD,PhD,BHANU [facility] Date/Time: [facility] Results Received Date/Time: [facility] Reported Date/Time: Performed By: #### 2 4729W, 95882V, 04789, 29879L, 10948W, 29452Y #### [facility] Default [address] [place] [address] SEROTYPE 3 (3) 1.3 Normal [facility] Supervisor [employer] Comment on above: Order Comment: [facility] performed at: [employer], [facility],, [address] [place] [address], , Ground Support Agent: Osiris Galdamez MD,PhD,BHANU [facility] Date/Time: [facility] Results Received Date/Time: [facility] Reported Date/Time: Performed By: #### 2 4729W, 39736F, 19732, 32668N, 14125X, 21408N #### [facility] Default [address] [place] [address] SEROTYPE 34 (10A) 0.9 Normal [facility] Specialist Comment on above: Order Comment: [facility] performed at: [facility], [facility],, [address] [place] [address], , Ground Support Agent: Osiris Galdamez MD,PhD,BHANU [facility] Date/Time: [facility] Results Received Date/Time: [facility] Reported Date/Time: Performed By: #### 2 4729W, 40425Q, 55577, 05208N, 44607Z, 34078W #### [facility] Default [address] [place] [address] SEROTYPE 4 (4) <0.3 Normal [facility] Supervisor [employer] Comment on above: Order Comment: [facility] performed at: [facility], [facility],, [address] [place] [address], , Ground Support Agent: Osiris Galdamez MD,PhD,BHANU [facility] Date/Time: [facility] Results Received Date/Time: [facility] Reported Date/Time: Performed By: #### 2 4729W, 37485G, 94729, 30633T, 31284R, 00553P #### [facility] Default [address] [place] [address] SEROTYPE 43 (11A) 1.1 Normal [facility] Comment on above: Order Comment: [facility] performed at: [facility], [facility],, [address] [place], [place], , Ground Support Agent: Osiris Galdamez MD,PhD,BHANU [facility] Date/Time: [facility] Results Received Date/Time: [facility] Reported Date/Time: Performed By: #### 2 4729W, 89664W, 01784, 50812E, 08653K, 99084D #### [facility] Default [address] [place] [address] SEROTYPE 5 (5) 2.3 Normal [facility] Specialist Comment on above: Order Comment: [facility] performed at: [facility], [facility],, [address] [place], [place], , Ground Support Agent: Osiris Galdamez MD,PhD,BHANU [facility] Date/Time: [facility] Results Received Date/Time: [facility] Reported Date/Time: Performed By: #### 2 4729W, 00423M, 12107, 73230S, 68583U, 33185Y #### [facility] Default [address] [place] [address] SEROTYPE 51 (7F) 8.4 Normal [facility] Comment on above: Order Comment: [facility] performed at: [facility],, [address] [place], [place], , Ground Support Agent: Osiris Galdamez MD,PhD,BHANU [facility] Date/Time: [facility] Results Received Date/Time: [facility] Reported Date/Time: Performed By: #### 2 4729W, 43422A, 17128, 10975L, 19482Y, 83835W #### [facility] Default [address] [place] [address] SEROTYPE 54 (15B) 2.3 Normal [facility] Comment on above: Order Comment: [facility] performed at: [facility], [facility],, [address] [place], [place], , Ground Support Agent: Osiris Galdamez MD,PhD,BHANU [facility] Date/Time: [facility] Results Received Date/Time: [facility] Reported Date/Time: [id number] Performed By: #### 2 4729W, 35677D, 78965, 62176B, 01780J, 46980Q #### [facility] Default [address] [place] [address] SEROTYPE 56 (18C) 18.7 Normal [facility] Comment on above: Order Comment: [facility] performed at: [facility], [facility],, [address] [place], [place], , Ground Support Agent: Osiris Galdamez MD,PhD,BHANU [facility] Date/Time: [facility] Results Received Date/Time: [facility] Reported Date/Time: Performed By: #### 2 4729W, 82776A, 28676, 66037F, 23507F, 89605Y #### [facility] Default [address] [place] [address] SEROTYPE 57 (19A) 15.6 Normal [facility] Comment on above: Order Comment: [facility] performed at: [facility], [facility],, [facility] [place], , Ground Support Agent: Osiris Galdamez MD,PhD,BHANU [facility] Date/Time: [facility] Results Received Date/Time: [facility] Reported Date/Time: Performed By: #### 2 4729W, 65949L, 37527, 33639T, 07939G, 27548M #### [facility] Default [address] [place] [address] SEROTYPE 68 (9V) 2.1 Normal [facility] Comment on above: Order Comment: [facility] performed at: [facility], [facility],, [address] [place], [place], , Ground Support Agent: Osiris Galdamez MD,PhD,BHANU [facility] Date/Time: [facility] Results Received Date/Time: [id number] [facility] Reported Date/Time: Performed By: #### 2 4729W, 93923Q, 95979, 12755S, 79765N, 23922Y #### [facility] Default [address] [place] [address] SEROTYPE 70 (33F) 28.9 Normal [place] [place] Supervisor [employer] Comment on above: Order Comment: [facility] performed at: , [facility],, [address] [place], [address], Ground Support Agent: Osiris Galdamez MD,PhD,BHANU [facility] Date/Time: [facility] [...] serotype-specific titers may have less robust responses. [facility] uses a multi-analyte immunodetection (MAID) method. The method employs the Encentuate flow cytometric system which measures multiple analytes [...] analytical performance characteristics have been determined by [facility]. It has not been cleared or approved by FDA. This assay has been validated pursuant to the CLIA regulations and used for clinical purposes. For additional information, please refer to http://education.[employer]/faq/HMO203 (This link is being provided for informational/ educational purposes only.) Performed By: #### 2 4729W, 26792B, 06854, 07354K, 83052S, 69450P #### [facility] Default [address] [place] [address] SEROTYPE 8 (8) 14.6 Normal [facility] Specialist Comment on above: Order Comment: [facility] performed at: [employer],, [address] [place] [address], , Ground Support Agent: Osiris Galdamez MD,PhD,BHANU [facility] Date/Time: [facility] Results Received Date/Time: [facility] Reported Date/Time: Performed By: #### 2 4729W, 87717G, 28239, 83808O, 67836M, 81648R #### [facility] Default [address] [place] [address] SEROTYPE 9 (9N) 1.0 Normal [facility] Specialist Comment on above: Order Comment: [facility] performed at: [employer],, [address] [place] [address], , Ground Support Agent: Osiris Galdamez MD,PhD,BHANU [facility] Date/Time: [facility] Results Received Date/Time: [facility] Reported Date/Time: Performed By: #### 2 4729W, 17659S, 46892, 28312O, 42072W, 36189Z #### [facility] Default [address] [place] [address] CT SINUSES WO CONon 08-06-[address] [...] by: HOSEA GARCIA Date: 2021-08-05 08:48 Normal [facility] MG MAMM DX 3D LT CADon 08-05 MG MAMM DX 3D LT CAD Patient: AKIRA BUITRAGO Exam Date: 08/05/2021 : 1950 Gender:F Ordering : DR MIKO BURRIS . Admission #: [id number] Family : Order #: [id number] CLICK HERE TO VIEW EXAM RADIOLOGY REPORT [...] lung cancer at age 59. LOCATION: [facility] BREAST COMPOSITION: Scattered areas fibroglandular [...] M.D. on 08/05/2021 at 09:25 Normal [facility] US BREAST LEFT LIMITEDon US BREAST LEFT LIMITED Patient: AKIRA BUITRAGO Exam Date: 08/05/2021 : 1950 Gender:F Ordering : DR MIKO BURRIS . Admission #: [id number] Family : Order #: [id number] CLICK HERE TO VIEW EXAM RADIOLOGY REPORT [...] lung cancer at age 59. LOCATION: [facility] BREAST COMPOSITION: Scattered areas fibroglandular [...] Hosea Garcia M.D. on 08/05/2021 at 09:25 [facility] Vital Signs Date Time Vital Sign Value Performing Clinician Davon longoria 02-11-2024 08:33-0500 Body height 160 cm Renny Orlando DPM Work Phone: [facility] 02-11-2024 08:33-0500 Body mass index (BMI) [Ratio] 22.85 kg/m2 Renny Orlando DPM Work Phone: [facility] 02-11-2024 08:33-0500 Body weight 58.51 kg Renny Brown DPM Work Phone: [facility] 02-11-2024 08:33-0500 Diastolic blood pressure 80 mm[Hg] Renny Brown DPM Work Phone: [facility] 02-11-2024 08:33-0500 Heart rate 81 /min Renny Brown DPM Work Phone: [facility] 02-11-2024 08:33-0500 Systolic blood pressure 126 mm[Hg] Renny Orlando DPM Work Phone: [facility] 01-28-2024 08:34-0400 Body height 160 cm Renny Brown DPM Work Phone: [facility] 01-28-2024 08:34-0400 Body mass index (BMI) [Ratio] 22.85 kg/m2 Renny Brown DPM Work Phone: [facility] 01-28-2024 08:34-0400 Body weight 58.51 kg Renny Orlando DPM Work Phone: [facility] 01-28-2024 08:34-0400 Diastolic blood pressure 80 mm[Hg] Renny Regino DPM Work Phone: [facility] 01-28-2024 08:34-0400 Heart rate 81 /min Renny Orlando DPM Work Phone: [facility] 01-28-2024 08:34-0400 Systolic blood pressure 128 mm[Hg] Renny Brown DPM Work Phone: [facility] 01-14-2024 08:38-0400 Body height 160 cm Rennyasad Orlando DPM Work Phone: [facility] 01-14-2024 08:38-0400 Body mass index (BMI) [Ratio] 22.85 kg/m2 Renny Orlando DPM Work Phone: [facility] 01-14-2024 08:38-0400 Body weight 58.51 kg Renny Orlando DPM Work Phone: [facility] 01-14-2024 08:38-0400 Respiratory rate 18 /min Renny Regino DPM Work Phone: [facility] 12-31-2023 09:01-0400 Body height 160 cm Renny Orlando DPM Work Phone: [facility] 12-31-2023 09:01-0400 Body mass index (BMI) [Ratio] 22.85 kg/m2 Renny Brown DPM Work Phone: [facility] 12-31-2023 09:01-0400 Body weight 58.51 kg Renny Brown DPM Work Phone: [facility] 12-31-2023 09:01-0400 Diastolic blood pressure 75 mm[Hg] Renny Orlando DPM Work Phone: [facility] 12-31-2023 09:01-0400 Heart rate 75 /min Renny Orlando DPM Work Phone: [facility] 12-31-2023 09:01-0400 Respiratory rate 18 /min Renny Regino DPM Work Phone: [facility] 12-31-2023 09:01-0400 Systolic blood pressure 126 mm[Hg] Renny Orlando DPM Work Phone: [facility] 12-17-2023 08:41-0400 Body height 160 cm Renny Orlando DPM Work Phone: [facility] 12-17-2023 08:41-0400 Body mass index (BMI) [Ratio] 22.85 kg/m2 Renny Orlanod DPM Work Phone: [facility] 12-17-2023 08:41-0400 Body weight 58.51 kg Renny Brown DPM Work Phone: [facility] 12-17-2023 08:41-0400 Diastolic blood pressure 74 mm[Hg] Renny Orlando DPM Work Phone: [facility] 12-17-2023 08:41-0400 Heart rate 82 /min Renny Orlando DPM Work Phone: [facility] 12-17-2023 08:41-0400 Systolic blood pressure 125 mm[Hg] Renny Orlando DPM Work Phone: [facility] 12-15-2023 08:08-0400 Body height 160 cm Lolis Pleitez SECURITY TRAINER Work Phone: [facility] 12-15-2023 08:08-0400 Body mass index (BMI) [Ratio] 22.82 kg/m2 Lolis Pleitez SECURITY TRAINER Work Phone: [facility] 12-15-2023 08:08-0400 Body weight 58.42 kg Lolis Pleitez SECURITY TRAINER Work Phone: [facility] 12-15-2023 08:08-0400 Diastolic blood pressure 70 mm[Hg] Lolis Pleitez SECURITY TRAINER Work Phone: [facility] 12-15-2023 08:08-0400 Systolic blood pressure 118 mm[Hg] Lolis Pleitez SECURITY TRAINER Work Phone: [facility] 12-03-2023 09:18-0400 Body height 160 cm Renny Orlando DPM Work Phone: [facility] 12-03-2023 09:18-0400 Body mass index (BMI) [Ratio] 22.5 kg/m2 Renny Orlando DPM Work Phone: [facility] 12-03-2023 09:18-0400 Body weight 57.61 kg Renny Orlando DPM Work Phone: [facility] 12-03-2023 09:18-0400 Diastolic blood pressure 79 mm[Hg] Renny Orlando DPM Work Phone: [facility] 12-03-2023 09:18-0400 Heart rate 78 /min Renny Orlando DPM Work Phone: [facility] 12-03-2023 09:18-0400 Systolic blood pressure 128 mm[Hg] Renny Orlando DPM Work Phone: [facility] Encounters Encounter Date Encounter Type [...] flowsheet Renny Frank Regino DPM Work Phone: [facility] Start: 02-11-2024 End: 02-11-2024 Patient encounter procedure Renny Frank Regino DPM Work Phone: [facility] Comment on above: Verruca plantaris (P rimary Dx); Foot pain, right; Foot pain, left Start: 02-11-2024 End: 02-11-2024 ambulatory RENNY Frank REGINO Not Available Start: 01-28-2024 End: 01-28-2024 Bamboo flowsheet Renny Frank Regino DPM Work Phone: [facility] Start: 01-28-2024 End: 01-28-2024 Bamboo flowsheet Renny Frank Brown DPM Work Phone: [facility] Start: 01-28-2024 End: 01-28-2024 Patient encounter procedure Renny Frank Regino DPM Work Phone: [facility] Comment on above: Verruca plantaris (P rimary Dx); Foot pain, right; Foot pain, left Start: 01-28-2024 End: 01-28-2024 ambulatory RENNY Frank REGINO Not Available Start: 01-14-2024 End: 01-14-2024 Bamboo flowsheet Renny Frank Brown DPM Work Phone: [facility] Start: 01-14-2024 End: 01-14-2024 Bamboo flowsheet Renny Frank Brown DPM Work Phone: [facility] Start: 01-14-2024 End: 01-14-2024 Patient encounter procedure Renny Frank Regino DPM Work Phone: [facility] Comment on above: Verruca plantaris (P rimary Dx); Foot pain, right; Foot pain, left Start: 01-14-2024 End: 01-14-2024 ambulatory RENNY A BROWN Not Available Start: 12-31-2023 End: 12-31-2023 Bamboo flowsheet Renny A Regino DPM Work Phone: [facility] Start: 12-31-2023 End: 12-31-2023 Bamboo flowsheet Renny Marie Regino DPM Work Phone: [facility] Start: 12-31-2023 End: 12-31-2023 Patient encounter procedure Renny Marie Regino DPM Work Phone: [facility] Comment on above: Verruca plantaris (P rimary Dx); Foot pain, right; Foot pain, left Start: 12-31-2023 End: 12-31-2023 ambulatory RENNY Frank REGINO Not Available Start: 12-17-2023 End: 12-17-2023 Bamboo flowsheet Renny Frank Regino DPM Work Phone: [facility] Start: 12-17-2023 End: 12-17-2023 Bamboo flowsheet Renny Marie Brown DPM Work Phone: [facility] Start: 12-17-2023 End: 12-17-2023 Patient encounter procedure Renny Orlando DPM Work Phone: [facility] Comment on above: Verruca plantaris (P rimary Dx); Foot pain, right; Onychomycosis; Toe pain, bilateral; Xerosis cutis; Foot pain, left Start: 12-17-2023 End: 12-17-2023 ambulatory RENNY ORLANDO Not Available Start: 12-15-2023 End: 12-15-2023 Bamboo flowsheet Lolis Pleitez SECURITY TRAINER Work Phone: [facility] Start: 12-15-2023 End: 12-15-2023 Bamboo flowsheet Lolis Pleitez SECURITY TRAINER Work Phone: [facility] Start: 12-15-2023 End: 12-15-2023 Office outpatient visit 15 minutes Lolis Pleitez SECURITY TRAINER Work Phone: [facility] [place] [facility] Comment on above: Migraine with aura a nd without status migrainosus, not intractable ([facility]) (Primary Dx) Start: 12-15-2023 End: [...] Start: 08-05-2023 End: 08-06-2023 ambulatory Issa VALE Facility:[id number] Start: 07-15-2023 End: 07-15-2023 ambulatory [...] Not Available Start: 04-10-2023 End: 04-10-2023 ambulatory [facility] Start: 11-25-2022 End: 11-25-2022 ambulatory TEGAN [facility] Start: 07-02-2022 End: 07-02-2022 ambulatory [...] . Facility:[facility] Start: 05-14-2022 End: 05-14-2022 ambulatory [facility] Start: 01-22-2022 End: 01-23-[address] MIKO [...] [address] [place] [phone] Keila Faith MD [address] [place] [address] [facility] Start: 12-14-2024 End: 12-14-2024 Patient encounter procedure 12/14/2024 8:20 AM EDT Office Visit [facility] [address] [place] [address] Cristofer Pleitezah, [address] [place] [phone] [facility] [place] [facility] Start: 04-18-2024 End: 04-18-2024 Patient encounter procedure 04/18/2024 9:20 AM EST Office Visit [facility] [address] [place] [phone] Keila Faith MD [address] [place] [address] [facility] Start: 04-07-2024 End: 04-07-2024 Patient encounter procedure 04/07/2024 9:20 AM EST Office Visit [facility] [address] [place] [phone] Keila Faith MD [address] [place] [address] Arrived [facility] Comment on above: Arrived [...] AM EDT Office Visit [facility] [address] [phone] Renny Orlando, SANKET [address] [address] Verruca plantaris (Primary Dx); Foot pain, right; Foot pain, left [facility] Comment on above: Verruca plantaris (P rimary Dx); Foot pain, right; Foot pain, left Start: 12-31-2023 End: 12-31-2023 Patient encounter procedure 12/31/2023 9:10 AM EDT Office Visit [facility] [address] [phone] Renny Orlando DPM [address] [address] Verruca plantaris (Primary Dx); Foot pain, right; [...] procedure 12/14/2023 9:20 AM EDT [facility] [address] [facility] [address] [place] [address] Keila Faith MD [address] [place] [address] [facility] Start: 12-06-2023 Influenza vaccination Influenza Vacc ine (#1) [facility] Start: 12-03-2023 End: 12-03-2023 Patient encounter procedure 12/03/2023 9:30 AM EDT Procedure Visit [facility] [address] [phone] Renny Orlando DPM [address] [address] Verruca plantaris (Primary Dx); Foot pain, right; Foot pain, left; Onychomycosis; Toe pain, bilateral; Xerosis cutis [facility] Comment on above: Verruca plantaris (P rimary Dx); Foot pain, right; Foot pain, left; Onychomycosis; Toe pain, bilateral; Xerosis cutis Start: 05-14-2023 End: 05-14-2023 Patient encounter procedure 05/14/2023 8:40 AM EST Office Visit [facility] [address] [phone] Renny Orlando DPM [address] [address] [facility] Start: 12-05-2022 Influenza vaccination Influenza Vacc ine (#1) [facility] Start: 10-27-2018 Pneumococcal Vaccine : [...] Category Payer Private Health Insurance [employer] [id number] 2021 Unknown [employer] [id number] 2021-Present [address] [place] [address] [id number]. [id number] 2014 Medicare [id number]. 1.13.693.2. [id number] 1959 Medicare [id number] 1959 Unknown [id number] 1949 Unknown [id number] 2.840.1.772482.3.579.2. 593 1949 Unknown [id number] 2.840.1.556968.3.579.2. 593 1949 Unknown [id number] .840.1.929010.3.579.2. 593 1949 Unknown [id number] 2.840.1.516954.3.579.2. 593 1949 Unknown [id number] 2.16.840.1.437863.3.579.2. 593 1949 Unknown [id number] 2.16.840.1.930147.3.579.2. 593 1949 Unknown [id number] 2.16.840.1.261770.3.579.2. 593 1949 Unknown [id number] 2.16.840.1.483715.3.579.2. 593 1949 Unknown [id number] 2.16.840.1.972548.3.579.2. 593 1949 Unknown [id number] 2.16.840.1.696689.3.579.2. 593 1949 Unknown [id number] 2.16.840.1.757937.3.579.2. 593 1949 Unknown [id number] 2.16.840.1.128372.3.579.2. 593 1949 Unknown [id number] 2.16.840.1.228908.3.579.2. 593 1949 Unknown [id number] 2.16.840.1.722814.3.579.2. 593 1949 Unknown [id number] 2.16.840.1.916000.3.579.2. 593 1949 Unknown [id number] 2.16.840.1.963100.3.579.2. 593 1949 Unknown [id number] 2.16.840.1.832318.3.579.2. 727 1949 Unknown [id number] 2.16.840.1.444675.3.579.2. 727 1949 Unknown [id number] 2.16.840.1.715453.3.579.2. 1259 1949 Unknown [id number] 2.16.840.1.843489.3.579.2. 1259 1949 Unknown [id number] 2.16.840.1.721769.3.579.2. 1258 1949 Unknown [id number] 2.16.840.1.534785.3.579.2. 1258 1949 Unknown [id number] 2.16.840.1.901440.3.579.2. 1258 1949 Unknown [id number] 2.16.840.1.318997.3.579.2. 1258 1949 Unknown [id number] 2.16.840.1.267010.3.579.2. 1258 1949 Unknown [id number] 2.16.840.1.178530.3.579.2. 1258 1949 Unknown [id number] 2.16.840.1.448535.3.579.2. 1258 1949 Unknown [id number] 2.16.840.1.645920.3.579.2. 1258 1949 Unknown [id number] 2.16.840.1.905743.3.579.2. 1258 1949 Unknown [id number] 2.16.840.1.607968.3.579.2. 1258 1949 Unknown [id number] 2.16.840.1.269312.3.579.2. 1258 1949 Unknown [id number] 2.16840.1.938503.3.579.2. 1258 1949 Unknown [id number] 2.16.840.1.521869.3.579.2. 1258 1949 Unknown [id number] 2.16840.1.609653.3.579.2. 1259 Social History Date Type Detail Facility Start: 04-30-2023 End: 12-03-2023 Tobacco smoking status CTIS Ex-smoker [facility] End: 04-06-2006 History of tobacco use Current smoker [facility] End: 04-06-2006 History of tobacco use Cigarette Smoker [facility] History of tobacco use Passive smoker [facility] Start: 04-30-2023 End: 12-03-2023 Tobacco use and exposure Smokeless tobacco non-user [facility] Start: 05-14-2023 End: 12-03-2023 Alcohol intake Lifetime non-drinker (finding) [facility] Start: 04-30-2023 End: 02-11-2024 History of Social function [facility] Start: 04-30-2023 End: 02-11-2024 Tobacco use panel [facility] Start: 12-12-2022 Alcohol Comment Caffeine intake: non e [facility] Start: 1950 Sex Assigned At Not on file N [facility] Start: 12-31-2023 End: 04-07-2024 Alcoholic beverage intake Ex-drinker (finding) [facility] Start: 12-14-2023 Alcohol Comment Caffeine intak e: none; quit in 2014 [facility] Clinical Notes 05-14-2022 to 04-07-2024 Keila [...] medications or symptoms. documented in this encounter [facility] 02-11-2024 History of Present illness Narrative [...] b.I.d. basis., Disp: 30 mL, Rfl: 11 Zfcojcq-Ukwcwnmulqg-Czwjengzjh (Breztri Aerosphere) 160-9-4.8 MCG/ACT aerosol, Inhale 1 [...] Partner Violence: Unknown (05/28/2023) [facility] [place] [employer] [facility] Fear [...] Renny Orlando DPM documented in this encounter [facility] 01-28-2024 History of Present illness Narrative [...] b.I.d. basis., Disp: 30 mL, Rfl: 11 Mudnkww-Qmttygvajsy-Daoyuycsgy (Breztri Aerosphere) 160-9-4.8 MCG/ACT aerosol, Inhale 1 [...] Partner Violence: Unknown (05/28/2023) Re[facility] from [facility] [place] [facility] Fear [...] Renny Orlando DPM documented in this encounter [facility] 01-14-2024 History of Present illness Narrative [...] b.I.d. basis., Disp: 30 mL, Rfl: 11 Efjwweh-Emhdzihpwta-Zzzzgqfhsq (Breztri Aerosphere) 160-9-4.8 MCG/ACT aerosol, Inhale 1 [...] Partner Violence: Unknown (05/28/2023) Re[facility] from [facility] [place] [facility] Fear [...] Renny Orlando DPM documented in this encounter [facility] 12-31-2023 History of Present illness Narrative [...] b.I.d. basis., Disp: 30 mL, Rfl: 11 Zpzfkqr-Llotxnnxkbg-Awtrzvvauz (Breztri Aerosphere) 160-9-4.8 MCG/ACT aerosol, Inhale 1 [...] Partner Violence: Unknown (05/28/2023) Re[facility] from [facility] [place] [facility] Fear [...] Renny Orlando DPM documented in this encounter [facility] 12-17-2023 History of Present illness Narrative [...] Partner Violence: Unknown (05/28/2023) Received from [facility] [place] [facility] Fear [...] Renny Orlando DPM documented in this encounter [facility] 12-15-2023 History of Present illness Narrative [...] Haii Aerosphere 160-9-4.8 MCG/ACT aerosol; Generic drug: Onufryu-Dwnoahvylvy-Rdoxeaitij budesonide 1 MG/2ML nebulizer solution; Commonly known [...] wrist extensors , wrist flexor , and sportspersons strength 5/5. LUE strength deltoid , biceps , triceps , wrist extensors , wrist flexor , and sportspersons strength 5/5. RLE strength iliopsoas, quadriceps, tibialis [...] reflex 1+. LLE Knee reflex 1+. Coordination: Cehcps-mp-obop testing normal. Rapid alternating movements are normal. [...] new or worsening symptoms. Lolis Pleitez NP [facility] Advanced Neurology documented in this encounter [facility] 12-03-2023 History of Present illness Narrative [...] Partner Violence: Unknown (05/28/2023) Received from [facility] [place] [facility] Fear [...] Renny Orlando DPM documented in this encounter [facility] 06-09-2023 Note Chief Complaint consultation for [...] 1 tab(s), Oral, Daily Flonase 0.05 mg/inh [place], 2 spray(s), Nasal, Daily lactulose 10 g/15 [...] mEq= 1 tab(s (more content not included)... [facility] Comment on above: Result Comment: Elec [...] nostril in the morning and at bedtime. bavteamlyt-wzolthuy-mnrepydnyj (Breztri Aerosphere) 160-9-4.8 mcg/actuation HFA aerosol inhaler [...] as needed Juanita Jenkins MD Interventional Cardiology [facility] (more content not included)... [facility] 04-10-2023 Note Patient here for [...] All other systems reviewed and are negative. [facility] 11-25-2022 Note Remains stable, ches t pain resolved and no acute concerns currently [facility] 11-25-2022 Note Current echo 05/2022- Mild MR and no concerning symptoms currently [facility] 11-25-2022 Note Current echo 05/2022- Mild MR and no concerning symptoms currently [facility] 11-25-2022 Note Continue pravastatin 10 mg daily and fenofibrate- pt states PCP orders her annual labs F/U with PCP [facility] 11-25-2022 Note UTP CARDIOLOGY PROGR [...] Prior to Visit Medication Sig Dispense Refill oaprgimjtf-jlxdsgma-wvvkuyppud (Breztri Aerosphere) 160-9-4.8 mcg/actuation HFA aerosol inhaler [...] no acute concerns currently RTC 4-6 months [facility] 05-26-2022 Note CARDIAC STRESS TEST Requesting Physician: Procedure Date:05/26/2022 This is a treadmill stress test with myocardial perfusion imaging, performed at the [facility] on 05/26/2022. 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 4. Myocardial perfusion images will be reported separately. [facility] 05-14-2022 Note Cardiology Follow Up [...] Prior to Visit Medication Sig Dispense Refill rwnkufvoxg-wylpybkn-ynzkornwgr (Breztri Aerosphere) 160-9-4.8 mcg/actuation HFA aerosol inhaler [...] red flag symptoms. (more content not included)... [facility] 05-14-2022 Note Patient here for 6 m o follow up valve regurgitation and hyperlipidemia. C/o intermittent chest pressure. She says sometimes she takes aspirin to relieve the pain if it lasts more then a few minutes. Occurs at rest, as well as exercise, but she states it's no worse with exercise. [facility] Evaluation note Diagnosis Verruca plantaris- [...] section and content) DATE CREATED AUTHOR 08/17/2021 [facility] dical Specialist DATE CREATED AUTHOR AUTHOR'S ORGANIZ ATION 07/05/2022 [facility] DATE CREATED AUTHOR AUTHOR'S ORGANIZ ATION 05/11/2023 [facility] DATE CREATED AUTHOR AUTHOR'S ORGANIZ ATION 08/10/2023 [facility] DATE CREATED AUTHOR AUTHOR'S ORGANIZ ATION 04/08/2024 [facility] dical Specialists EPIC Care Teams (unrecognized sec tion and content) Anesthesiologist And Critical Care Relationship Specialty Start Date End Date Miko Burris MD [address] [place] [address] PCP - General Family Medicine 04/30/23 Anesthesiologist And Critical Care Relationship Specialty Start Date End Date Miko Burris MD [address] [place] [address] PCP - General Family Medicine 04/30/23 Anesthesiologist And Critical Care Relationship Specialty Start Date End Date Miko Burris MD [address] [place] [address] PCP - General Family Medicine 04/30/23 Anesthesiologist And Critical Care Relationship Specialty Start Date End Date Miko Burris MD [address] [id number] PCP - General Family Medicine 04/30/23 Anesthesiologist And Critical Care Relationship Specialty Start Date End Date Miko Burris MD [address] [facility], [id number] PCP - General Family Medicine 04/30/23 Anesthesiologist And Critical Care Relationship Specialty Start Date End Date Miko Burris MD [address] [facility], [id number] PCP - General Family Medicine 04/30/23 Anesthesiologist And Critical Care Relationship Specialty Start Date End Date Miko Burris MD [address] [facility], [id number] PCP - General Family Medicine 04/30/23 Anesthesiologist And Critical Care Relationship Specialty Start Date End Date Miko Burris MD [address] [facility], [id number] PCP - General Family Medicine 04/30/23 Anesthesiologist And Critical Care Relationship Specialty Start Date End Date Miko Burris MD [address] [facility] [place] [address] PCP - General Family Medicine 04/30/23 Anesthesiologist And Critical Care Relationship Specialty Start Date End Date Miko Burris MD [address] [facility] [address] PCP - General Family Medicine 04/30/23 Reason [...] BE BASED ON THE PRIMARY CLINICAL RECORDS. [facility]. provides no warranty or guarantee of the accuracy or completeness of information in this document.
--- NOTE | 2024-05-06 07:38 | MR_ITS ---
[address] [address] Patient Name: AKIRA PERALTA MRN: [id number] date: 1950 Sex: F Assigned Patient Location: MRI Current Patient Location: Accession/Order Number: [id number] Exam Date: 05/06/2024 07:48 Report Date: 05/09/2024 10:46 At the request of: ALEXA MALIK Procedure: MR shoulder LT wo con EXAMINATION: MR shoulder LT wo con HISTORY: Tear Left Rotator Cuff ; chronic left shoulder pain radiating into left arm COMPARISON: No relevant comparison available. TECHNIQUE: A variety of imaging planes and parameters were utilized for visualization of suspected pathology. Imaging was performed without or with contrast as indicated by examination type. FINDINGS: ROTATOR CUFF REGION CUFF TENDONS: Complete tear of the superior rotator cuff with 2.4 cm retraction. CUFF MUSCLES: Normal appearing muscles. DELTOID: Normal. No significant atrophy or tear. LONG BICEPS TENDON: Normal. No abnormal signal, attrition, or tear. LABRUM/BICEPS ANCHOR SUPERIOR: Suspected tear of the superior rotator cuff. ANTERIOR/INFERIOR: No visible tear or attrition. POSTERIOR: No posterior labrum abnormality. CAPSULE No visible capsular laxity or thickening. AC JOINT REGION AC JOINT: Moderate osteoarthropathy with mild-moderate narrowing of the underlying coracoacromial arch. AC LIGAMENTS: Normal acromioclavicular ligament. CC LIGAMENTS: Normal coracoclavicular ligaments. ACROMION: High riding humeral head contacting the undersurface of the acromion process. SUBACROMIAL BURSA: Small amount of fluid within the bursa. HYALINE CARTILAGE: Moderate thinning. No appreciable focal defect. OTHER BONES: High riding humeral head. No edema or fracture. OTHER OBSERVATIONS: Negative. No other significant findings or glenohumeral effusion. MR/MR shoulder LT wo con IMPRESSION: 1. Complete tear of the superior rotator cuff with 2.4 cm retraction. 2. High riding humeral head contacting undersurface of acromion process and likely contributing to suspected superior rotator cuff tear. 3. Moderate degenerative changes of acromioclavicular joints which likely contributed to rotator cuff injury. Electronically authenticated by: HOSEA BOWENS Date: 05/09/2024 10:46
== END 2024-05-06 07:36 | disposition home or self-care (01) ==
LOC: MRI 07:35
PROVIDERS: PCP Family Medicine; Visit Provider Physician Assistant
DX: M75.102 Unspecified rotator cuff tear or rupture of left shoulder, not specified as traumatic (principal); M75.122 Complete rotator cuff tear or rupture of left shoulder, not specified as traumatic; M19.012 Primary osteoarthritis, left shoulder
CPT/HCPCS: 73221

== ENCOUNTER 2024-07-13 07:32 | Outpatient (RCR) | payer MEDICARE, OTHER, SELFPAY ==
[2024-07-13 07:13] LABS: Calcium 9.7 mg/dL (8.5-10.1); Estimated GFR (African America 52 (>=60 mL/min/1.73m^2); Estimated GFR (Non-African Ame 43 (>=60 mL/min/1.73m^2)
[2024-07-13 07:45] VITALS: BP 145/70; PULSE 54; TEMP 36.4; O2SAT 98
[2024-07-13] MEDS: DENOSUMAB 60 MG/ML SYRINGE SUBQ (08:07)
== END 2024-07-14 13:50 | disposition home or self-care (01) ==
LOC: INF 07:32
PROVIDERS: PCP Family Medicine; Visit Provider Family Medicine
DX: M81.0 Age-related osteoporosis without current pathological fracture (principal)
CPT/HCPCS: 36415; 82310; 82565; 96372; J0897

== ENCOUNTER 2024-08-28 14:28 | Emergency (ER) | payer MEDICARE, OTHER, SELFPAY ==
--- OUTSIDE RECORDS SUMMARY | 2024-04-22 05:40 | XMS_ITS ---
Author Organization [facility] Address [address] [place] [address] Care Team Providers Care Supervisor Inspection Room Name Role Phone José Miguel Joseph Unavailable [phone] RiveraMiko galan Unavailable Unavailable Sophia Austin Unavailable [phone] Allergies Allergen (clinical drug ingredient) Drug/Non Drug Allergy documented on EMR Reaction Allergy Type Onset Date Status amoxicillin amoxicillin itching Drug Allergy Act bar morphine morphine swelling, itch Drug Allergy Ac tive Reason For Referral Reason NO AUTH REQ......... ............................NOT SCHEDULED..................................MCR/MMO MRI LEFT SHOULDER TO BE DONE AT [facility] Diagnosis 1 Tear of left rotator cuff, unspecified tear extent, unspecified whether traumatic (M75.102) Referral Organization [facility] Referring Provider First Name José Miguel Referring Provider Last Name St Adhikari Referring Provider Speciality Orthopedic Surgery Referred Organization [facility] Outpatient Referred Address [address] [place], [place],[address], Procedure 1 MRI Joint Upper Ext w/o Dye (04259) General Notes Farida Doyle 025 11:02:20 AM [...] Problem Status W/U Status Risk Notes Problem 00064104 Cervical radiculopathy (M54.12) Active confirmed Problem 336323487946 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) Active confirmed Problem 76421476 Other cervical disc degeneration, high cervical region (M50.31) Active confirmed Problem 52167716 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-C5 level (M50.321) Active confirmed Problem 13298801 Other cervical disc degeneration at C5-C6 level (M50.322) Active confirmed Problem 96497224 Other cervical disc degeneration at C6-C7 level (M50.323) Active confirmed Problem 23730999 Muscle weakness (M62.81) Active confirmed Encounters Encounter Location Date Provider Diagnosis [address] [place] [address] [place] [address] 04/22/2024 [facility] Other cervical disc degeneration, high cervical [...] Cervical spine 2 v FLEX, EXT - 56237 MRI Shoulder Left w/o Contrast Referrals Referral Date Details 04/22/2024 04/22/2024, NO AUTH REQ.....................................NOT SCHEDULED..................................[facility]/MMO MRI LEFT SHOULDER TO BE DONE AT [facility], [facility] [place], [address], Next Appt Details Follow Up: AFTER IMAGING, Re ason: Progress Notes * AKIRA BUITRAGO DDOB:[birth year] (73 yo F)Acc No.[id number]:04/22/2024 Patient: Oliverio BOWLINGAKIRA BOSCH Nany Provider: IGGY Elizabeth :1950 A ge:73 Y S ex:Female Date:04/22/2024 Address:[facility] 04/07 [facility] Subjective: * Chief Complaints: * C ERVICAL [...] and odontoid views were reviewed from the [facility] from 04/12/2024 that appear negative for fracture but with some anterolisthesis of L2 on 3. Degenerative disc disease most notable between C3-7. . M RI Imaging Studies: M RI cervical spine without contrast was reviewed from the [facility] from 04/18/2024 C2-3 early degenerative disc [...] 04/22/2024 Generated for Annie moss/Dustin/Tayoitting on: 0 08/28/2024 02:38 PM EDT History and Physical Notes * HPI [...] positions Have you been seen by a [place] ist in the last year? No Do [...] and odontoid views were reviewed from the [facility] from 04/12/2024 that appear negative for fracture but with some anterolisthesis of L2 on 3. Degenerative disc disease most notable between C3-7. MRI Imaging Studies MRI cervical spine without contrast was reviewed from the [facility] from 04/18/2024 C2-3 early degenerative disc [...] LEFT SHOULDER TO BE DONE AT [facility]
--- OUTSIDE RECORDS SUMMARY | 2024-05-13 04:00 | XMS_ITS ---
Author Organization [facility] Address [address] [place] [address] Care Team Providers Care Farmworker Cranberry Name Role Phone José Miguel Joseph Unavailable [phone] Miko Burris Unavailable Unavailable [facility] Unavailable [phone] Allergies Allergen (clinical drug ingredient) Drug/Non Drug [...] Problem Status W/U Status Risk Notes Problem [id number] Cervical spinal stenosis (M48.02) Active confirmed Problem [id number] Complete tear of left rotator cuff, unspecified whether traumatic (M75.122) Active confirmed Encounters Encounter Location Date Provider Diagnosis [facility] [facility] [address] [facility] [place] [address] 05/13/2024 [facility] Other cervical disc degeneration, high cervical region [...] BUITRAGOAKIRA BOSCH DDOB:[birth year] (73 yo F)Acc No.[id number]:05/13/2024 Patient: AKIRA BRAGG Provider: IGGY Elizabeth :1950 A ge:73 Y S ex:Female Date:05/13/2024 Address:[facility] [address] [id number] Subjective: * Chief Complaints: * [...] shoulder without contrast was reviewed from the [facility] from 05/06/2024 Impression complete tear of the [...] 05/13/2024 Generated for Petri isa/Dustin/Tayoitting on: 0 08/28/2024 02:38 PM EDT History [...] shoulder without contrast was reviewed from the [facility] from 05/06/2024 Impression complete tear of the superior rotator cuff with 2.4 cm retraction. High riding humeral head contacting undersurface of acromion process and likely contributing to suspected superior rotator cuff tear. Moderate degenerative changes of acromioclavicular joints which likely contributed to rotator cuff injury.
--- OUTSIDE RECORDS SUMMARY | 2024-05-26 04:45 | XMS_ITS ---
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 Name Role Phone Cornelio Burris Primary Care Provider [phone] Allergies Allergen (clinical drug ingredient) Drug/Non Drug Allergy documented on EMR Reaction Allergy Type Onset Date Status amoxicillin Amoxicillin itching Drug Allergy Act bar morphine Morphine itching and swelling Drug Allergy Active REASON FOR VISIT 6mon Medications Medication SIG (Take, Route, Frequency, Duration) Notes Start Date End Date Status Cytomel 5 MCG 1 tablet on an empty stomach Orally Once a day for 90 days 12/04/2022 Active Fluticasone Propionate 50 MCG/ACT 2 spray in each nostril Nasally Once a day for 90 days Active Fenofibrate 160 MG 1 tablet Orally Once a day for 90 days Active Ipratropium Winside 0.02 % 2.5 mL as needed Inhalation QID As needed 11/05/2023 Active Furosemide 20 MG 1 tablet Orally QOD, PRN for 90 days Active Budesonide 1 MG/2ML 1 mL Inhalation Once a day for 30 days Dx: COPD and Asthma Active cloNIDine HCl 0.1 MG 1 tablet Orally twi ce daily for 90 days Active Aspirin Low Dose 81 MG 1 tablet Orally Once a day Active Breztri Aerosphere 160-9-4.8 MCG/ACT 2 puffs Inhalation once daily as needed Active Azelastine HCl 137 MCG/SPRAY 2 sprays in each nostril Nasally Once a day for 90 days Active Ubrelvy 100 MG 1 tablet may take se cond dose at least 2 hours after first dose as needed Orally Once a day PRN Active Potassium Chloride ER 10 MEQ 1 tablet Orally three times daily for 90 days Active Omeprazole 40 MG 1 tablet Orally Once a day for 90 days Active Prolia 60 MG/ML as directed Subcutaneous Active Pravastatin Sodium 10 MG 1 tablet Orally Once a day for 90 days Active Lactulose 10 GM/15ML 30ml Oral twice rabia ly as needed for 90 days PRN Active Jobst 30-40mmHg Compression Sm - as directed dx:venous insufficiency qd for 30 days 05/01/2023 Active Levothyroxine Sodium 100 MCG 1 tablet Orally Once a day for 90 days Active Social History Tobacco Use: Social History Observation Description Date Details (start date - stop date) Former Smoker 04/06/1964 - 04/06/2006 Tobacco Use/Smoking Question Answer Notes Patient is a former smoker When did you start smoking? 04/06/1964 When did you stop smoking? 04/06/2006 AUDIT-C (Standard) Question Answer Notes Did you have a drink containing alcohol in the p ast year? No Points 0 Interpretation Negative Vital Signs Blood pressure systolic 128 mm Hg 05/26/19 25 Blood pressure diastolic 80 mm Hg 025 Height 63 in 05/26/2024 Weight 128.6 lbs 05/26/2024 BMI 22.78 kg/m2 05/26/2024 Encounters Encounter Location Date Provider Diagnosis [facility] [address] [place] [address] 05/26/2024 Cornelio Burris Hypertension I10 ; G ERD (gastroesophageal reflux disease) K21.9 ; Hypothyroidism E03.9 and Cervical radiculopathy M54.12 Assessments Encounter Date Diagnosis (ICD Code) Assessment Notes Treatment Notes Treatment Clinical Notes Section Notes 05/26/2024 Hypertension (ICD-10 - I10) 05/26/2024 GERD (gastroesophageal reflux disease) (ICD-10 - K21.9) 05/26/2024 Hypothyroidism (ICD-10 - E03.9) 05/26/2024 Cervical radiculopathy (ICD-10 - M54.12) Plan Of Treatment Next Appt Details Provider Name:Cornelio Burris, 08:30:00 AM, [address] [place], [address], Progress Notes * Adrianna BUITRAGO DDOB:[birth year] (73 yo F)Acc No.[id number]:05/26/2024 Progress Note Patient: Adrianna BRAGG Provider: Nany Burris ([facility]), :1950 A ge:73 Y S ex:Female Date:05/26/2024 Address:Pending sale to [facility] [address] [facility], [id number] Check In:08:23 AM ESTCheck O ut:08:54 AM EST Subjective: * Chief Complaints: * 6 mon * HPI: G eneral: disucsd Left shoulder - ding much better - doing exercises at home constipation controlled takjng thyrord meds - asthma - breztri helps -budesonide helps GERD -0 stable. * ROS: E ENT: hearing changes d enies. v isual changes d enies.?non-healing mouth sores d enies. s wollen glands or neck lumps d enies. h oarseness d enies. s ore throat d enies. d ifficulty swallowing d enies. n ose bleeds d enies. n macy congestion d enies. e ar ache d enies. e ar discharge?denies. r inging in ears d enies. l ight sensitivity d enies. e ye pain d enies. b lurring d enies. e ye irritation d enies. d ouble vision d enies.?vision loss d enies. G eneral/Constitutional: Sweats: D enies. F atigue d enies. S leep problems d enies. A norexia d enies. M alaise d enies. W eight loss d enies.?Fatigue or Weakness d enies. F ever or Chills d enies. C ardiovascular: Shortness of Breath w/lying flat d enies. L ightheadedness/dizziness d enies. C hest tightness/ heavy pressure d enies. S welling of legs, ankles, or feet d enies. W aking up with shortness of breath d enies. C hest pain denies. P alpitations d enies. W eight gain d enies. R espiratory: Chronic or frequent cough d enies. C oughing up blood?denies. D ifficulty breathing d enies. P roductive cough d enies. S noring?denies. S hortness of breath that awakens from sleep (PND) d enies. C hest pain d enies. S putum production d enies. W heezing d enies. M usculoskeletal: Joint pain d enies. J oint Fluid d enies. B ack pain d enies. K nee pain d enies. N guillermo pain d enies. J oint Stiffness d enies. M uscle cramps d enies. W eakness of muscles d enies. A rthritis d enies. M uscle aches d enies. P ain in shoulder(s) d enies. S wollen joints d enies. * Active Problem List I34.0 Mitral regurgitation Modified On:11/28/2022 Status:confirmed I10 Hypertension Modified On:05/27/2023 Status:confirmed K21.9 GERD (gastroesophage al reflux disease) Modified On:12/03/2022 Status:confirmed E03.9 Hypothyroidism Modified On:12/05/2022 Status:confirmed I87.2 Venous insufficiency Modified On:11/28/2022 Status:confirmed M85.80 Osteopenia Modified On:11/28/2022 Status:confirmed M19.90 Degenerative arthrit is Modified On:11/28/2022 Status:confirmed M54.16 Lumbar radiculopathy Modified On:11/28/2022 Status:confirmed J30.9 Allergic rhinitis Modified On:12/03/2022 Status:confirmed M50.90 Cervical disc diseas e Modified On:11/28/2022 Status:confirmed G43.109 Migraine with aura Modified On:11/28/2022 Status:confirmed R01.1 Cardiac murmur Modified On:11/28/2022 Status:confirmed I07.9 Tricuspid valve diso rder Modified On:11/28/2022 Status:confirmed M51.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 Modified On:11/28/2022 Status:confirmed E78.00 Hypercholesterolemia Modified On:11/28/2022 Status:confirmed H25.9 Senile cataract of l eft eye, unspecified age-related cataract type Modified On:11/28/2022 Status:confirmed 724.5 Low back pain Modified On:11/28/2022 Status:confirmed G43.009 Migraine without aur a, not intractable, without status migrainosus Modified On:10/24/2022 Status:confirmed J21.9 Acute bronchiolitis Modified On:06/30/2023 Status:confirmed 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, unspecified Modified On:05/01/2023 Status:confirmed J45.909 Asthma Modified On:06/12/2023 Status:confirmed M16.9 Hip osteoarthritis Modified On:06/12/2023 Status:confirmed U07.1 COVID-19 Modified On:06/24/2023 Status:confirmed R06.02 Shortness of breath Modified On:07/08/2023 Status:confirmed M81.0 Age-related osteopor osis without current pathological fracture Modified On:07/23/2023 Status:confirmed J45.20 Mild intermittent as thma, uncomplicated Modified On:07/23/2023 Status:confirmed J01.90 Acute sinusitis Modified On:09/15/2023 Status:confirmed M54.12 Cervical radiculopat hy Modified On:04/12/2024 Status:confirmed R60.9 Edema Modified On:04/12/2024 Status:confirmed * Medical History: * Surgical History: T AH and DREW sinus surgery right foot x2 nasal septoplasty Lens implant OU Colonoscopy- Dr. Espinoza 08/05/2023 * Hospitalization/Major Diagno stic Procedure: D enies Past Hospitalization * Family History: F ather: , [place], diagnosed with Unspecified heart disease. M other: , lung disease, high cholesterol, [place], diagnosed with Unspecified essential hypertension, Unspecified heart disease. B rother(s): pancreatic and colon cancer, diagnosed with Other malignant neoplasm of unspecified site, Unspecified heart disease. * Social History: T obacco Use: T obacco Use/Smoking P atient is a f ormer smoker W hen did you start smoking? 0 04/06/1964 W hen did you stop smoking? 0 04/06/2006 D rug/Alcohol: A SANDRA-C (Standard) D id you have a drink containing alcohol in the past year? N o P oints 0 I nterpretation N egative * Medications: T akingAspirin Low Dose(Aspirin) 81 MG Tablet Delayed Release 1 tablet Orally Once a day Azelastine HCl 137 MCG/SPRAY Solution 2 sprays in each nostril Nasally Once a day Breztri Aerosphere(Xnffkel-Vigyrneorgw-Tugheibchu) 160-9-4.8 MCG/ACT Aerosol 2 puffs Inhalation once daily as needed Budesonide 1 MG/2ML Suspension 1 mL Inhalation Once a day Dx: COPD and AsthmacloNIDine HCl 0.1 MG Tablet 1 tablet Orally twice daily Cytomel(Liothyronine Sodium) 5 MCG Tablet 1 tablet on an empty stomach Orally Once a day Fenofibrate 160 MG Tablet 1 tablet Orally Once a day Fluticasone Propionate 50 MCG/ACT Suspension 2 spray in each nostril Nasally Once a day Furosemide 20 MG Tablet 1 tablet Orally QOD, PRN Ipratropium Winside 0.02 % Solution 2.5 mL as needed Inhalation QID As neededJobst 30-40mmHg Compression Sm(Elastic Bandages & Supports) - Miscellaneous as directed dx:venous insufficiency qd Lactulose 10 GM/15ML Solution 30ml Oral twice daily as needed , Notes to Pharmacist: PRNLevothyroxine Sodium 100 MCG Tablet 1 tablet Orally Once a day Omeprazole 40 MG Capsule Delayed Release 1 tablet Orally Once a day Potassium Chloride ER 10 MEQ Tablet Extended Release 1 tablet Orally three times daily Pravastatin Sodium 10 MG Tablet 1 tablet Orally Once a day Prolia(Denosumab) 60 MG/ML Solution Prefilled Syringe as directed Subcutaneous Ubrelvy(Ubrogepant) 100 MG Tablet 1 tablet may take second dose at least 2 hours after first dose as needed Orally Once a day , Notes to Pharmacist: PRNMedication List reviewed and reconciled with the patientTaking Aspirin Low Dose(Aspirin) 81 MG Tablet Delayed Release 1 tablet Orally Once a day Taking Azelastine HCl 137 MCG/SPRAY Solution 2 sprays in each nostril Nasally Once a day Taking Breztri Aerosphere(Voefhka-Gkxalykkryl-Kavrjoujkn) 160-9-4.8 MCG/ACT Aerosol 2 puffs Inhalation once daily as needed Taking Budesonide 1 MG/2ML Suspension 1 mL Inhalation Once a day Dx: COPD and AsthmaTaking cloNIDine HCl 0.1 MG Tablet 1 tablet Orally twice daily Taking Cytomel(Liothyronine Sodium) 5 MCG Tablet 1 tablet on an empty stomach Orally Once a day Taking Fenofibrate 160 MG Tablet 1 tablet Orally Once a day Taking Fluticasone Propionate 50 MCG/ACT Suspension 2 spray in each nostril Nasally Once a day Taking Furosemide 20 MG Tablet 1 tablet Orally QOD, PRN Taking Ipratropium Winside 0.02 % Solution 2.5 mL as needed Inhalation QID As neededTaking Jobst 30-40mmHg Compression Sm(Elastic Bandages & Supports) - Miscellaneous as directed dx:venous insufficiency qd Taking Lactulose 10 GM/15ML Solution 30ml Oral twice daily as needed , Notes to Pharmacist: PRNTaking Levothyroxine Sodium 100 MCG Tablet 1 tablet Orally Once a day Taking Omeprazole 40 MG Capsule Delayed Release 1 tablet Orally Once a day Taking Potassium Chloride ER 10 MEQ Tablet Extended Release 1 tablet Orally three times daily Taking Pravastatin Sodium 10 MG Tablet 1 tablet Orally Once a day Taking Prolia(Denosumab) 60 MG/ML Solution Prefilled Syringe as directed Subcutaneous Taking Ubrelvy(Ubrogepant) 100 MG Tablet 1 tablet may take second dose at least 2 hours after first dose as needed Orally Once a day , Notes to Pharmacist: PRNMedication List reviewed and reconciled with the patient * Allergies: M orphine: itching and swellingAmoxicillin: itchingno[Allergies Verified] Objective: * Vitals: W t:128.6lbs, Ht: 63 in, BP:128/80mm Hg, BMI:22.78Index, Ht-cm: 160.02 cm, Wt-k.33 kg. * Examination: P hysical Exam: GENERAL: w ell developed, well nourished, in no acute distress. HEAD: n ormocephalic/atraumatic. EYES: p upils equal, round and reactive to light, conjunctivae and sclerae normal. EARS: n o deformity or lesion of external ear, canals and TM appear normal bilaterally, TM's intact, not inflamed with normal light reflex, hearing grossly normal to conversational speech. NOSE: n o deformity, discharge, inflammation, or lesions.? MOUTH: m ucous membranes moist, normal oropharynx and posterior pharynx without lesions or exudates, tongue normal, dentition normal. NECK: n guillermo supple, no masses or palpable cervical nodes, trachea midline, thyroid without nodules, masses, tenderness, or enlargement. CHEST: n o chest wall deformity, no chest wall tenderness.? LUNGS: n ormal respiratory effort and clear to auscultation, no wheezes, rales, or rhonchi, good air exchange. CARDIO: r egular rate and rhythm, normal S1 and S2, nor murmur, rub, or gallop. PULSES: n ormal capillary refill. ABDOMEN: s oft, non-distended, non-tender, no masses. MUSCULOSKELETAL: n o deformity or scoliosis noted, normal range of motion, joints normal, no erythema, edema, effusion, or ecchymosis. EXTREMITY: n o clubbing, cyanosis, edema, or deformity with normal ROM in both upper and lower bilateral extremities. NEUROLOGIC: g rossly normal. SKIN: n o rashes, ulcerations, or suspicious lesions. LYMPH NODES: n o cervical adenopathy, nodes normal. MENTAL STATUS: a lert and oriented x3, normal mood and affect. Assessment: * Assessment: 1. H ypertension - I10 (Primary) 2 . G ERD (gastroesophageal reflux disease) - K21.9 3 . H ypothyroidism - E03.9 4 . C ervical radiculopathy - M54.12 Plan: * Treatment: * Procedure Codes: * Preventive Medicine: Screenings/Counseling: F ALL RISK SCREENING Fall Risk Assessment: N o falls in the past year * * Sign off status: Completed Visit Status: C HK (Check Out) true * Provider: Nany Burris ([facility])MD Date: 0 05/26/2024 Generated for Printi ng/Faxing/eTransmitting on: 0 08/28/2024 02:39 PM EDT History and Physical Notes * HPI (History of Present Illness) Category Sub-Category Detail Notes Category Not es General disucsd Left shoulder - ding much better - doing exercises at home constipation controlled takjng thyrord meds - asthma - breztri helps -budesonide helps GERD -0 stable Examination Category Sub-Category Detail Notes Category Not es Physical Exam GENERAL: well developed, well nourished, in no acute distress HEAD: normocephalic/atraum atic EYES: pupils equal, round and reactive to light, conjunctivae and sclerae normal EARS: no deformity or lesi on of external ear, canals and TM appear normal bilaterally, TM's intact, not inflamed with normal light reflex, hearing grossly normal to conversational speech NOSE: no deformity, discha rge, inflammation, or lesions MOUTH: mucous membranes reina st, normal oropharynx and posterior pharynx without lesions or exudates, tongue normal, dentition normal NECK: neck supple, no mass es or palpable cervical nodes, trachea midline, thyroid without nodules, masses, tenderness, or enlargement CHEST: no chest wall deform ity, no chest wall tenderness LUNGS: normal respiratory e ffort and clear to auscultation, no wheezes, rales, or rhonchi, good air exchange CARDIO: regular rate and rhy thm, normal S1 and S2, nor murmur, rub, or gallop PULSES: normal capillary ref ill ABDOMEN: soft, non-distended, non-tender, no masses RECTAL: MUSCULOSKELETAL: no deformity or scol iosis noted, normal range of motion, joints normal, no erythema, edema, effusion, or ecchymosis EXTREMITY: no clubbing, cyanosi s, edema, or deformity with normal ROM in both upper and lower bilateral extremities NEUROLOGIC: grossly normal SKIN: no rashes, ulceratio ns, or suspicious lesions LYMPH NODES: no cervical adenopat hy, nodes normal MENTAL STATUS: alert and oriented x 3, normal mood and affect
--- OUTSIDE RECORDS SUMMARY | 2024-06-16 08:40 | XMS_ITS ---
Author Name Auto Generated Organization OHIP Support Name Relationship Address Phone SIA BUITRAGO Next of Kin [address] [facility] [place] [address] + ~[phone] LOIDA BUITRAGOIL Next of Kin Unknown [phone] SIA BUITRAGO Next of Kin [address] [facility] [place] [address] + ~[phone] BUITRAGO, SIA Next of Kin [address] [facility] [place] [address] + ~[phone] BUITRAGO, SIA Next of Kin [address] [facility] [place] [address] + ~[phone] BUITRAGO, SIA Next of Kin [address] [facility] [address] + ~([phone] BUITRAGO, SIA Next of Kin [address] [facility] [place] [address] + ~[phone] BUITRAGO, SIA Next of Kin [address] [facility] [place] [address] + ~([phone] BUITRAGO, SIA Next of Kin [address] [facility] [place] [address] + ~([phone] BUITRAGO, SIA Next of Kin [address] [facility] [place] [address] + ~([phone] BUITRAGO, SIA Next of Kin [address] [facility] [place] [address] + ~[phone] Care Team Providers Care Coating Machine Feeder Name Role Phone MAGNUS LACY Attending Unavailable KEILA CALLAHAN Attending Unavailable MAGNUS LACY Attending Unavailable MAGNUS ALCY Attending Unavailable SANDEEP PLEITEZ Attending Unavailable MAGNUS LACY Attending Unavailable MAGNUS LACY Attending Unavailable MAGNUS LACY Attending Unavailable MAGNUS LACY Attending Unavailable MAGNUS LACY Attending Unavailable KEILA CALLAHAN Attending Unavailable MELO BRITO Attending Unavailable PROBLEMS DATE TYPE CONDITION / CODE ATTENDING STATUS [facility] 05/13/2022 Admitting Diagnosis 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) MELO BRITO Active [facility] 05/13/2022 Admitting Diagnosis Hyperlipidemia, unspecified / E78.5(ICD-10) MELO BRITO Active [facility] PROCEDURES No Procedure Records Found RESULTS OFFICE VISIT Observed: 04/29/2024 9:40 AM Status: COMPLETED Source: [facility] [id number] Akira Buitrago 05/1950 F Date Provider Department Center 04/29/2024 3848-MELO BRITO CARD [facility] Family History Problem Relation Age of Onset Heart attack Father Coronary artery disease Sister Peripheral vascular disease Sister Heart attack Brother Family Status - Relation Status Age at Father Sister Brother Level of Service:93065 MA OFFICE/OUTPATIENT ESTABLISHED LOW MDM 20 MIN PROGRESS Observed: 04/29/2024 9:40 AM Status: COMPLETED Source: [facility] Cardiology Follow Up Progres s Note HPI: kAira Buitrago is a 73 y.o. female with a past medical history including CKD stage 1, mild MR, and mild TR. She presents to cardiology clinic for routine follow-up. Patient here for 1 year follow up valve disorder and hyperlipidemia. Had routine labs w/ lipid panel in Nov 2023. Dr. Burris has been checking her kidney function lately. She's been taking less lasix and potassium only about 3-4 times a week. Patient adamantly denies any cardiac complaints or concerns. Patient denies any chest pain or shortness of breath. Patient denies any lower extremity edema, orthopnea, or proximal nocturnal dyspnea. No near-syncope or syncope. No dizziness or lightheadedness. She continues to walk several miles per day without any symptoms. Cardiology ROS: 10 point ROS is performed and is negative unless otherwise specified in HPI. Medications Current Outpatient Medications on File Prior to Visit Medication Sig Dispense Refill aspirin 81 mg EC tablet 1 (one) time each day at the same time. azelastine (Astelin) 137 mcg (0.1 %) nasal spray Administer 2 sprays into each nostril in the morning and at bedtime. acxofumrde-yecekqsx-inpbcpdxuz (Breztri Aerosphere) 160-9-4.8 mcg/actuation HFA aerosol inhaler [...] Amoxicillin and Morphine Physical Exam VITAL SIGNS: Ht 1.6 m (5' 3 ) Wt 57.6 kg (127 lb) BMI 22.50 kg/m??? Constitutional: Well developed, Well nourished, No [...] regurgitation, trivial -Chest pain, atypical, negative perfusion scan, resolved -Family history of premature CAD -HLD: on pravastatin Plan: -Stress test without evidence of ischemia. Optimize medical management, aggressive risk factor modification. -Continue statin for HLD -Optimize medical management -Aggressive risk factor modification -Plan of care discussed with patient. All questions were answered. Patient voices understanding and is agreeable with current plan. -Patient was educated on red flag symptoms. Strict return precautions were provided. Patient verbalizes understanding -Follow-up in cardiology clinic in 6 months, or sooner as needed Melo Brito MD Interventional Cardiology [facility] ALLERGIES DATE TYPE / CODE NAME / CODE REACTION SEVERITY SOURCE 05/13/2022 DRUG INGREDI/[id number](S NOMED CT) AMOXICILLIN Unknown [facility] 05/13/2022 DRUG INGREDI/[id number](S NOMED CT) MORPHINE Itching [facility] ENCOUNTERS ADMIT/DISCHARGE ACCOUNT NUMBER ADMITTING ENCOUNTER CLASS LOCATION SOURCE 06/16/2024/ 5 [id number] Ambulatory Building:NOM S CI POD [facility] [place] 04/29/2024/ 5 [id number] Ambulatory Building:[facility] 04/07/2024/ 5 [id number] Ambulatory Building:NOM S SWS ALL [facility] [place] 02/11/2024/ 4 [id number] Ambulatory Building:NOM S CI POD [facility] [place] 01/28/2024/ 4 [id number] Ambulatory Building:NOM S CI POD [facility] 01/14/2024/ 4 [id number] Ambulatory Building:NOM S CI POD [facility] 12/31/2023/ 4 [id number] Ambulatory Building:NOM S CI POD [facility] 12/17/2023/ 4 [id number] Ambulatory Building:NOM S CI POD [facility] 12/15/2023/ 4 [id number] Ambulatory Building:BSR NEURO [facility] 12/03/2023/ 4 [id number] Ambulatory Building:NOM S CI POD [facility] 10/12/2023/ 4 [id number] Ambulatory Building:NOM S SWS ALL [facility] 09/10/2023/ 4 [id number] Ambulatory Building:NOM S CI POD [facility] PAYERS ENCOUNTER GUARANTOR PAYER SUBSCRIBER SOURCE 06/16/2024 AKIRA MEREDITHOB: [id number] 04/07 [place] [address]Tly: () Primary Insurance:MEDICAREPo licy Number: [id number] Date:5393-95-50Dzva Name:Medicare AKIRA WHITAKERMANDOB: [id number] 04/[address] [place] [address] [facility] 06/16/2024 Secondary Insurance:MEDICAL MUTUALPolicy Number: [id number] e Date:2021-11-04 AKIRA WHITAKERMANDOB: [id number] 04/[address] [place] [address] [facility] 04/29/2024 Primary Insurance:MEDICAREPo licy Number: [id number] Date:6253-71-80Snku Name:Medicare EMILY D CHAPMANDOB: [id number] [address] [place] [address] [facility] 04/29/2024 Secondary Insurance:MEDICAL MUTUALPolicy Number: [id number] e Date:2021-11-04 AKIRA WHITAKERMANDOB: [id number] [address] [place] [address] [facility] 04/07/2024 AKIRA WHITAKERMANDOB: [birth year]/07 [place] [address]Ooy: (HP) Primary Insurance:MEDICAREPo licy Number: [id number] Date:6251-09-20Sdez Name:Medicare AKIRA WHITAKERMANDOB: [id number] [address] [place] [address] [facility] 04/07/2024 Secondary Insurance:MEDICAL MUTUALPolicy Number: [id number] e Date:2021-11-04 AKIRA WHITAKERMANDOB: [id number] [address] [place] [address] [facility] 02/11/2024 AKIRA WHITAKERMANDOB: [birth year][address] [place] [address]Cry: (HP) Primary Insurance:MEDICAREPo licy Number: [id number] Date:4828-97-58Quas Name:Medicare AKIRA WHITAKERMANDOB: [id number] [address] [place] [id number] [facility] 02/11/2024 Secondary Insurance:MEDICAL MUTUALPolicy Number: [id number] e Date:2021-11-04 AKIRA WHITAKERMANDOB: [id number] [address] [place] [address] [facility] 01/28/2024 AKIRA WHITAKERMANDOB: 04[address] [place] [address]Mye: (HP) Primary Insurance:MEDICAREPo licy Number: [id number] Date:4044-47-45Jhwz Name:Medicare AKIRA WHITAKERMANDOB: [id number] [address] [place] [address] [facility] 01/28/2024 Secondary Insurance:MEDICAL MUTUALPolicy Number: [id number] e Date:2021-11-04 AKIRA WHITAKERMANDOB: [id number] [address] [place] [address] [facility] 01/14/2024 AKIRA WHITAKERMANDOB: / [place] [address]Btq: (HP) Primary Insurance:MEDICAREPo licy Number: [id number] Date:5024-32-89Ckng Name:Medicare AKIRA WHITAKERMANDOB: [id number] [address] [place] [address] [facility] 01/14/2024 Secondary Insurance:MEDICAL MUTUALPolicy Number: [id number] e Date:2021-11-04 AKIRA WHITAKERMANDOB: [id number] [address] [place] [id number] [facility] 12/31/2023 AKIRA WHITAKERMANDOB: [address] [place] [id number]: (HP) Primary Insurance:MEDICAREPo licy Number: [id number] Date:4782-78-40Txsu Name:Medicare AKIRA WHITAKERMANDOB: [id number] [address] [place] [id number] [facility] 12/31/2023 Secondary Insurance:MEDICAL MUTUALPolicy Number: [id number] e Date:2021-11-04 AKIRA WHITAKERMANDOB: [id number] [address] [place] [address] [facility] 12/17/2023 AKIRA WHITAKERMANDOB: 04/[address] [place] [address]Klf: (HP) Primary Insurance:MEDICAREPo licy Number: [id number] Date:8583-74-13Numc Name:Medicare AKIRA WHITAKERMANDOB: [id number] [address] [place] [id number] [facility] 12/17/2023 Secondary Insurance:MEDICAL MUTUALPolicy Number: [id number] e Date:2021-11-04 AKIRA Ayon CHAPMANDOB: [id number] [address] [place] [id number] [facility] 12/15/2023 AKIRA D CHAPMANDOB: /[address] [place] [address]Onw: (ZM) Primary Insurance:MEDICAREPo licy Number: [id number] Date:5663-74-60Hpoo Name:Medicare AKIRA WHITAKERMANDOB: [id number] [address] [place] [id number] [facility] 12/15/2023 Secondary Insurance:MEDICAL MUTUALPolicy Number: [id number] e Date:2021-11-04 AKIRA Ayon CHAPMANDOB: [id number] 1[address] [place] [id number] [facility] 12/03/2023 AKIRA Ayon CHAPMANDOB: [address] [place] [address]Haq: () Primary Insurance:MEDICAREPo licy Number: [id number] Date:6189-66-60Zapt Name:Medicare AKIRA Ayon CHAPMANDOB: [id number] /[address] [place] [id number] [facility] 12/03/2023 Secondary Insurance:MEDICAL MUTUALPolicy Number: [id number] e Date:2021-11-04 AKIRA Ayon CHAPMANDOB: [id number] [address] [place] [address] [facility] 10/12/2023 AKIRA D CHAPMANDOB: /[address] [place] [address]Brr: () Primary Insurance:MEDICAREPo licy Number: [id number] Date:7438-54-28Zbsg Name:Medicare EMILY D CHAPMANDOB: [id number] [address] [place] [address] [facility] 10/12/2023 Secondary Insurance:MEDICAL MUTUALPolicy Number: [id number] e Date:2021-11-04 AKIRA MEREDITHOB: [id number] [address] [place] [address] [facility] 09/10/2023 AKIRA MEREDITHOB: [address] [place] [address]Gpy: () Primary Insurance:MEDICAREPo licy Number: [id number] Date:8271-62-75Ijki Name:Medicare AKIRA MEREDITHOB: [id number] [address] [place] [address] [facility] 09/10/2023 Secondary Insurance:MEDICAL MUTUALPolicy Number: [id number] e Date:2021-11-04 AKIRA MEREDITHOB: [id number] [address] [place] [address] [facility]
--- OUTSIDE RECORDS SUMMARY | 2024-06-20 12:02 | XMS_ITS ---
Author Organization [facility] in [place] Address [address] [place] [address] Care Team Providers Care Relationship Counselor Name Role Phone Cornelio Burris Primary Care Provider [phone] REASON FOR VISIT Nebulizer Medications Medication SIG (Take, Route, Frequency, Duration) Notes Start Date End Date Status Nebulizer/Tubing/Mouthpiec e - as directed for 365 days 06/20/2024 Act bar Encounters Encounter Location Date Provider Diagnosis [facility] [address] [place] [address] 06/20/2024 Cornelio Burris Plan Of Treatment Medication Medication Name Sig Start Date Stop Date Notes Nebulizer/Tubing/Mouthpiece - as directed for 365 days Next Appt Details Provider Name:Cornelio Burris, 08:30:00 AM, [address] [place], [address], Progress Notes * Adrianna BUITRAGO DDOB:[birth year] (73 yo F)Acc No.[id number]:06/20/2024 Patient: Oliverio Adrianna SILVERIO :1950 A ge:73 Y S ex:Female Address:[facility] [address] [place] [address] * Refills Start Nebulizer/Tubing/Mouthpiece Kit, -, 1 Each, as directed, 365 days, Refills=0 * true * Date: Generated for Printi ng/Faxing/eTransmitting on: 0 08/28/2024 02:38 PM EDT
--- OUTSIDE RECORDS SUMMARY | 2024-08-12 11:13 | XMS_ITS ---
Author Organization [facility] in [place] Address [address] [place] [address] Care Team Providers Care Elderly Caregiver Name Role Phone Cornelio Burris Primary Care Provider REASON FOR VISIT rf Budesonide and Azelastine Medications Medication SIG (Take, Route, Frequency, Duration) Notes Start Date End Date Status Azelastine HCl 137 MCG/SPRAY 2 sprays in each nostril Nasally Once a day for 90 days Active Budesonide 1 MG/2ML 1 mL Inhalation Once a day for 30 days Dx: COPD and Asthma Active Encounters Encounter Location Date Provider Diagnosis [facility] [address] [place] [address] 08/12/2024 Cornelio Burris Asthma J45.909 Assessments Encounter Date Diagnosis (ICD Code) Assessment Notes Treatment Notes Treatment Clinical Notes Section Notes 08/12/2024 Asthma (ICD-10 - J45.909) Plan Of Treatment Medication Medication Name Sig Start Date Stop Date Notes Azelastine HCl 137 MCG/SPRAY 2 sprays in each nostril Nasally Once a day for 90 days Budesonide 1 MG/2ML 1 mL Inhalation Once a day for 30 days Next Appt Details Provider Name:Cornelio Sobia Staffordangelia, 08:30:00 AM, [address] [place], [address], Progress Notes * Adrianna BUITRAGO DDOB:[birth year] (73 yo F)Acc No.[id number]:08/12/2024 Patient: Adrianna BRAGG :1950 A ge:73 Y S ex:Female Address:[facility] [address] [place] [address] * Refills Refill Azelastine HCl Solution, 137 MCG/SPRAY, Nasally, 3, 2 sprays in each nostril, Once a day, 90 days, Refills=3 Refill Budesonide Suspension, 1 MG/2ML, Inhalation, 30 ML, 1 mL, Once a day, 30 days, Refills=11 * true * Date: Generated for Annie moss/Dustin/Tayoitting on: 0 08/28/2024 02:38 PM EDT
[2024-08-28] VITALS (23 sets, daily range): BP systolic 138–157; BP diastolic 58–114; PULSE 63–108; TEMP 36.7; O2SAT 97–100; BMI 23.0
--- OUTSIDE RECORDS SUMMARY | 2024-08-28 14:38 | XMS_ITS | Patient Health Record ---
Demographics Address [address] [place] [address] Mobile Email Address Preferred Language en Marital Status Yazidism Affiliation Unknown Race White Ethnic Group Not or Lati no Author Organization [facility] in [place] Address [address] [place] [address] Care Team Providers Care Silver Buffer Name Role Phone Cornelio Burris Primary Care Provider [phone] JENNY BURRIS Unavailable [phone] Lucía Nath Unavailable [phone] Allergies Allergen (clinical drug ingredient) Drug/Non Drug Allergy documented on EMR Reaction Allergy Type Onset Date Status amoxicillin Amoxicillin itching Drug Allergy Act bar morphine Morphine itching and swelling Drug Allergy Active Results Component Value Reference Range Notes PROF CHEM 8 (BAS METB) Reviewed date:04/12/2024 12:35:00 PM Interpretation: Performing Lab: Notes/Report: [facility] , Sodium 142 136-145 mmol/L Potassium 3.6 3.5-5.1 mmol/L Chloride 105 98-107 mmol/L Carbon Dioxide 29.6 21.0-32.0 mmol/L Anion Gap 11.0 Glucose 86 74-106 mg/dL Blood Urea Nitrogen 25.0 7.0-18.0 mg/dL Creatinine 1.19 0.55-1.02 mg/dL Estimated GFR ( Coleen 54 >=60 mL/min/1.73m 2 Estimated GFR (Non- Ngoc 44 >=60 mL/min/1.73m 2 BUN Creatinine Ratio 21.0 Calcium 9.9 8.5-10.1 mg/dL Performing Lab: see note ML - [facility] LB XR cervical spine 2-3V Reviewed date:04/13/2024 06:55:56 PM Interpretation: Performing Lab: Notes/Report: Source Facility: [facility]-[address] [place] [address] [address] XRay Report Signed Patient: ADRIANNA BUITRAGO MR#: [id number] : 1950 Acct:[id number] Age/Sex: 73 / F ADM Date: 04/12/24 Loc: LAB Attending Dr: Jenny Burris M.D. Ordering Physician: Jenny Burris M.D. Date of Service: 04/12/24 Procedure(s): XR cervical spine 2-3V Accession Number(s): [id number] cc: Jenny Burris M.D. [place] [address] Patient Name: ADRIANNA BUITRAGO MRN: [id number] date: 1950 Sex: F Assigned Patient Location: LAB Current Patient Location: PT Accession/Order Number: [id number] Exam Date: 04/12/2024 09:40 Report Date: 04/12/2024 22:11 At the request of: JENNY BURRIS Procedure: XR cervical spine 2-3V EXAM: XR cervical spine 2-3V HISTORY: Cervical Radiculopathy COMPARISON: None. FINDINGS/IMPRESSION: 1. No acute fracture or dislocation. 2. Moderate degeneration of the cervical spine disc spaces extending from C3-C4 through C6-C7. 3. Vertebral body height is preserved. 4. Prevertebral soft tissues are normal. Airway is patent. 5. Edentulous. 6. Lung apices are clear. Electronically authenticated by: PETER TOVAR Date: 04/12/2024 22:11 Dictated By: Peter Tovar M.D. Signed By: 04/12/24 2214 DD/ 221 TD/TT: Tie Man: [place] [address] XRay Report Signed Patient: LALI BUITRAGO MR#: [id number] : 1950 Acct:[id number] Age/Sex: 73 / F ADM Date: 04/12/24 Loc: LAB Attending Dr: Dontae Burris M.D. Ordering Physician: Jenny Burris M.D. Date of Service: 04/12/24 Procedure(s): XR cervical spine 2-3V Accession Number(s): [id number] cc: Jenny Burris M.D. The [place] [address] Patient Name: ADRIANNA BUITRAGO MRN: [id number] date: 1950 Sex: F Assigned Patient Location: LAB Current Patient Location: PT Accession/Order Numb er: [id number] Exam Date: 04/12/2024 09:40 Report Date: 04/12/2024 22:11 At the request of: JENNY BURRIS Procedure: XR cervic al spine 2-3V EXAM: XR cervical sp ine 2-3V HISTORY: Cervical Radiculopathy COMPARISON: None. FINDINGS/IMPRESSION: 1. No acute fracture or dislocation. 2. Moderate degenera tion of the cervical spine disc spaces extending from C3-C4 through C6-C7. 3. Vertebral body he ight is preserved. 4. Prevertebral soft tissues are normal. Airway is patent. 5. Edentulous. 6. Lung apices are clear. Electronically authenticated by: PETER TOVAR Date: 04/12/2024 22:11 Dictated By: Bentley Tovar M.D. Signed By: 04/12/242213 DD/ 10 TD/TT: Tie Man: PROF LAVONNE Espitia ([facility]) Reviewed date:01/11/2024 08:06:02 PM Interpretation: Performing Lab: Notes/Report: [facility] , Sodium 139 136-145 mmol/L Potassium 3.3 3.5-5.1 mmol/L Chloride 101 98-107 mmol/L Carbon Dioxide 27.3 21.0-32.0 mmol/L Anion Gap 14.0 Glucose 91 74-106 mg/dL Blood Urea Nitrogen 31.0 7.0-18.0 mg/dL Creatinine 1.94 0.55-1.02 mg/dL Estimated GFR ( Coleen 31 >=60 mL/min/1.73m 2 Estimated GFR (Non- Ngoc 25 >=60 mL/min/1.73m 2 BUN Creatinine Ratio 16.0 Calcium 10.5 8.5-10.1 mg/dL Performing Lab: see note ML - [facility] LB GLYCOHEMOGLOBIN A1C Reviewed date:11/26/2023 07:25:30 PM Interpretation: Performing Lab: Notes/Report: [facility] , Glycohemoglobin A1C 4.8 4.5-6.2 % ADA RECOMMENDED LIMIT 4.0 - 6.0 > 7.0 ADA THERAPEUTIC TARGET < 7.0 ACTION SUGGESTED Estimated Average Glucose 91 Performing Lab: see note ML - [facility] LB IRON Reviewed date:11/26/2023 07:25:30 PM Interpretation: Performing Lab: Notes/Report: [facility] , Iron 70.0 50.0-170.0 ug/dL Performing Lab: see note ML - [facility] PROF CHEM 8 (BAS METB) Reviewed date:01/14/2024 10:18:20 AM Interpretation: Performing Lab: Notes/Report: [facility] , Sodium 138 136-145 mmol/L Potassium 4.4 3.5-5.1 mmol/L Chloride 103 98-107 mmol/L Carbon Dioxide 25.9 21.0-32.0 mmol/L Anion Gap 13.5 Glucose 90 74-106 mg/dL Blood Urea Nitrogen 44.0 7.0-18.0 mg/dL Creatinine 1.43 0.55-1.02 mg/dL Estimated GFR ( Coleen 43 >=60 mL/min/1.73m 2 Estimated GFR (Non- Ngoc 36 >=60 mL/min/1.73m 2 BUN Creatinine Ratio 30.8 Calcium 10.0 8.5-10.1 mg/dL Performing Lab: see note ML - [facility] LB TSH Reviewed date:11/26/2023 07:25:30 PM Interpretation: Performing Lab: Notes/Report: [facility] , Thyroid Stimulating Hormone 1.573 0.358-3.740 uIU/mL Performing Lab: see note ML - [facility] LB T4 Reviewed date:11/26/2023 07:25:30 PM Interpretation: Performing Lab: Notes/Report: [facility] , T4 Thyroxine 8.80 4.80-13.90 ug/dL Performing Lab: see note ML - [facility] LB PROF 14(COMP METB) Reviewed date:11/26/2023 07:25:30 PM Interpretation: Performing Lab: Notes/Report: [facility] , Sodium 143 136-145 mmol/L Potassium 3.7 3.5-5.1 mmol/L Chloride 104 98-107 mmol/L Carbon Dioxide 31.6 21.0-32.0 mmol/L Anion Gap 11.1 Glucose 90 74-106 mg/dL Blood Urea Nitrogen 28.0 7.0-18.0 mg/dL Creatinine 1.26 0.55-1.02 mg/dL Estimated GFR ( Coleen 50 >=60 Estimated GFR (Non- Ngoc 42 >=60 BUN Creatinine Ratio 22.2 Calcium 9.8 8.5-10.1 mg/dL Bilirubin Total 0.5 0.2-1.0 mg/dL Aspartate Amino Transferase 29 15-37 U/L Alanine Aminotransferase 31 14-59 U/L Alkaline Phosphatase 48 46-116 U/L Total Protein 7.3 6.4-8.2 g/dL Albumin Level 4.0 3.4-5.0 g/dL Globulin 3.3 Albumin Globulin Ratio 1.2 Performing Lab: see note ML - [facility] LB LIPID PROFILE Reviewed date:11/26/2023 07:25:30 PM Interpretation: Performing Lab: Notes/Report: [facility] , Triglycerides 56 <=150 mg/dL Cholesterol 173 <=200 mg/dL HDL Cholesterol 75 40-60 mg/dL <40 mg/dl - HIGH CARDIOVASCULAR RISK > or =60 mg/dl - LOW CARDIOVASCULAR RISK LDL Cholesterol Calculated 87.0 <100 mg/dl OPTIMAL 130-159 mg/dl BORDERLINE HIGH 160-189 mg/dl HIGH >190 mg/dl VERY HIGH 100-129 mg/dl NEAR OR ABOVE OPTIMAL VLDL CHOLESTEROL 11.2 Chol HDL Ratio 2.3 4.4 - 7.1 AVERAGE RISK >11.0 HIGH RISK 7.1 - 11.0 MODERATE RISK 3.3 - 4.4 LOW RISK Performing Lab: see note ML - [facility] LB FREE T3 Reviewed date:11/26/2023 07:25:30 PM Interpretation: Performing Lab: Notes/Report: [facility] , Free T3 2.82 2.18-3.98 pg/mL Performing Lab: see note ML - [facility] LB CBC AUTO DIFF Reviewed date:11/26/2023 07:25:30 PM Interpretation: Performing Lab: Notes/Report: [facility] , White Blood Count 7.1 4.0-11.0 10 3/uL Red Blood Count 4.09 4.20-5.40 10 6/uL Hemoglobin 13.2 12.0-16.0 g/dL Hematocrit 39.1 36.0-48.0 % Mean Corpuscular Volume 95.6 81.0-99.0 fL Mean Corpuscular Hemoglobin 32.3 26.7-34.0 pg Mean Corpuscular HGB Conc 33.8 29.9-35.2 g/dL Red Cell Distribution Width 13.7 11.0-15.0 % Platelet Count 365 150-450 10 3/uL Mean Platelet Volume 10.7 9.5-13.5 fL Neutrophils Percent Auto 66.7 43.0-75.0 % Lymphocytes Percent Auto 17.9 20.5-60.0 % Monocytes Percent Auto 9.3 1.7-12.0 % Eosinophils Percent Auto 5.2 0.9-7.0 % Basophils Percent Auto 0.8 0.2-2.0 % Immature Granulocytes Pct Auto 0.1 0.0-0.5 % Neutrophils Absolute Auto 4.7 1.4-6.5 10 3/uL Lymphocytes Absolute Auto 1.3 1.2-3.8 10 3/uL Monocytes Absolute Auto 0.7 0.3-0.8 10 3/uL Eosinophils Absolute Auto 0.4 0.0-0.7 10 3/uL Basophils Absolute Auto 0.1 0.0-0.1 10 3/uL Immature Granulocytes Abs Auto 0.01 0.00-0.03 10 3/uL Performing Lab: see note ML - [facility] LB CREATININE Reviewed date:07/13/2024 12:41:17 PM Interpretation: Performing Lab: Notes/Report: [facility] , Creatinine 1.22 0.55-1.02 mg/dL Estimated GFR ( Coleen 52 >=60 mL/min/1.73m 2 Estimated GFR (Non- Ngoc 43 >=60 mL/min/1.73m 2 Performing Lab: see note ML - [facility] LB CALCIUM Reviewed date:07/13/2024 12:41:17 PM Interpretation: Performing Lab: Notes/Report: [facility] , Calcium 9.7 8.5-10.1 mg/dL Performing Lab: see note ML - [facility] LB MR shoulder LT wo con Reviewed date:05/09/2024 07:49:36 PM Interpretation: Performing Lab: Notes/Report: Source Facility: [facility]-[address] [place] [address] [place] [address] Magnetic Resonance Report Signed Patient: ADRIANNA BUITRAGO MR#: [id number] : 1950 Acct:[id number] Age/Sex: 73 / F ADM Date: 05/06/24 Loc: MRI Attending Dr: Sophia PARKINSON Ordering Physician: Sophia Malik Date of Service: 05/06/24 Procedure(s): shoulder LT wo con Accession Number(s): [id number] cc: Jenny Burris M.D.; Sophia Malik [place] [address] Patient Name: ADRIANNA BUITRAGO MRN: [id number] date: 1950 Sex: F Assigned Patient Location: MRI Current Patient Location: Accession/Order Number: [id number] Exam Date: 05/06/2024 07:48 Report Date: 05/09/2024 10:46 At the request of: SOPHIA MALIK Procedure: MR shoulder LT wo con EXAMINATION: MR shoulder LT wo con HISTORY: Tear Left Rotator Cuff ; chronic left shoulder pain radiating into left arm COMPARISON: No relevant comparison available. TECHNIQUE: A variety of imaging planes and parameters were utilized for visualization of suspected pathology. Imaging was performed without or with contrast as indicated by examination type. FINDINGS: ROTATOR CUFF REGION CUFF TENDONS: Complete tear of the superior rotator cuff with 2.4 cm retraction. CUFF MUSCLES: Normal appearing muscles. DELTOID: Normal. No significant atrophy or tear. LONG BICEPS TENDON: Normal. No abnormal signal, attrition, or tear. LABRUM/BICEPS ANCHOR SUPERIOR: Suspected tear of the superior rotator cuff. ANTERIOR/INFERIOR: No visible tear or attrition. POSTERIOR: No posterior labrum abnormality. CAPSULE No visible capsular laxity or thickening. AC JOINT REGION AC JOINT: Moderate osteoarthropathy with mild-moderate narrowing of the underlying coracoacromial arch. AC LIGAMENTS: Normal acromioclavicular ligament. CC LIGAMENTS: Normal coracoclavicular ligaments. ACROMION: High riding humeral head contacting the undersurface of the acromion process. SUBACROMIAL BURSA: Small amount of fluid within the bursa. HYALINE CARTILAGE: Moderate thinning. No appreciable focal defect. OTHER BONES: High riding humeral head. No edema or fracture. OTHER OBSERVATIONS: Negative. No other significant findings or glenohumeral effusion. MR/MR shoulder LT wo con IMPRESSION: 1. Complete tear of the superior rotator cuff with 2.4 cm retraction. 2. High riding humeral head contacting undersurface of acromion process and likely contributing to suspected superior rotator cuff tear. 3. Moderate degenerative changes of acromioclavicular joints which likely contributed to rotator cuff injury. Electronically authenticated by: WEI GARCIA Date: 05/09/2024 10:46 Dictated By: Wei Garcia M.D. Signed By: 05/09/24 1049 DD/ 1046 TD/TT: Tie Man: [place] [address] Magnetic Resonance Report Signed Patient: LALI BUITRAGO MR#: [id number] : 1950 Acct:[id number] Age/Sex: 73 / F ADM Date: 05/06/24 Loc: MRI Attending Dr: Paola Nichole Ordering Physician: Sophia Malik Date of Service: 05/06/24 Procedure(s): MR shoulder LT wo con Accession Number(s): [id number] cc: Jenny Burris M.D. ; Sophia Malik [place] [id number] Patient Name: ADRIANNA BUITRAGO MRN: [id number] date: 1950 Sex: F Assigned Patient Location: MRI Current Patient Location: Accession/Order Numb er: [id number] Exam Date: 05/06/2024 07:48 Report Date: 05/09/2024 10:46 At the request of: SOPHIA MALIK Procedure: should er LT wo con EXAMINATION: MR shou lder LT wo con HISTORY: Tear Left Rotator Cuff ; chronic left shoulder pain radiating into left arm COMPARISON: No relev ant comparison available. TECHNIQUE: A variety of imaging planes and parameters were utilized for visualization of suspected pathology. Imaging was performed without or with contrast as indicate d by examination type. FINDINGS: ROTATOR CUFF REGION CUFF TENDONS: Comple te tear of the superior rotator cuff with 2.4 cm retraction. CUFF MUSCLES: Normal appearing muscles. DELTOID: Normal. No significant atrophy or tear. LONG BICEPS TENDON: Normal. No abnormal signal, attrition, or tear. LABRUM/BICEPS ANCHOR SUPERIOR: Suspected tear of the superior rotator cuff. ANTERIOR/INFERIOR: N o visible tear or attrition. POSTERIOR: No reroller hand ior labrum abnormality. CAPSULE No visible capsular laxity or thickening. AC JOINT REGION AC JOINT: Moderate osteoarthropathy with mild-moderate narrowing of the underlying coracoacromial arch. AC LIGAMENTS: Normal acromioclavicular ligament. CC LIGAMENTS: Normal coracoclavicular ligaments. ACROMION: High ridin g humeral head contacting the undersurface of the acromion process. SUBACROMIAL BURSA: S mall amount of fluid within the bursa. HYALINE CARTILAGE: Moderate thinning. No appreciable focal defect. OTHER BONES: High ri ding humeral head. No edema or fracture. OTHER OBSERVATIONS: Negative. No other significant findings or glenohumeral effusion. M R/MR shoulder LT wo con IMPRESSION: 1. Complete tear of the superior rotator cuff with 2.4 cm retraction. 2. High riding humer al head contacting undersurface of acromion process and likely contributing to suspected superior rotator cuff tear. 3. Moderate degenera tive changes of acromioclavicular joints which likely contributed to rotat or cuff injury. Electronically authenticated by: WEI GARCIA Date: 05/09/2024 10:46 Dictated By: Wei Garcia M.D. Signed By: 05/09/24 1049 DD/ 1046 TD/TT: Tie Man: [place] cervical spine 2-3V Reviewed date:04/24/2024 01:37:34 PM Interpretation: Performing Lab: Notes/Report: Source Facility: [facility]-[address] [place] [address] The [place] [id number] XRay Report Signed Patient: ADRIANNA BUITRAGO MR#: [id number] : 1950 Acct:[id number] Age/Sex: 73 / F ADM Date: 04/22/24 Loc: EC Attending Dr: Krystyna Caba M.D. Ordering Physician: Krystyna Caba M.D. Date of Service: 04/22/24 Procedure(s): XR cervical spine 2-3V Accession Number(s): [id number] cc: Jenny Burris M.D.; Krystyna Caba M.D. [place] [address] Patient Name: ADRIANNA BUITRAGO MRN: [id number] date: 1950 Sex: F Assigned Patient Location: Current Patient Location: Accession/Order Number: [id number] Exam Date: 04/22/2024 10:05 Report Date: 04/24/2024 09:45 At the request of: KRYSTYNA CABA Procedure: XR cervical spine 2-3V Cervical spine x-rays, 04/22/2024. HISTORY: Neck pain. COMPARISON: Cervical spine x-rays, 04/12/2024. FINDINGS: 2 views of the cervical spine obtained in lateral projection with flexion and extension. There is anterolisthesis at C2-C3 with flexion measuring 2 mm. Alignment at this level with extension is normal. The alignment of the remainder of the cervical spine levels is normal. There is moderate to severe degenerative disc disease at C3-C4 through C6-C7 with disc space narrowing, irregularity of the endplates and osteophyte formation. Severe facet arthropathy at C7-T1. XR/XR cervical spine 2-3V IMPRESSION: 1. There is mild anterolisthesis at C2-C3 with flexion. Alignment at this level with extension is normal suggesting there may be mild instability at the C2-C3 level. 2. Alignment at the remainder of the cervical spine levels appears normal. 3. Moderate to severe multilevel degenerative disc disease at C3-C4 through C6-C7. Severe facet arthropathy at C7-T1. Electronically authenticated by: MAIK HERNANDEZ Date: 04/24/2024 09:45 Dictated By: Maik Hernandez M.D. Signed By: 04/24/2448 DD/ 4 TD/TT: Tie Man: [place] [address] XRay Report Signed Patient: LALI BUITRAGO MR#: [id number] : 1950 Acct:[id number] Age/Sex: 73 / F ADM Date: 04/22/24 Loc: EC Attending Dr: Krystyna Caba M.D. Ordering Physician: Krystyna Caba M.D. Date of Service: 04/22/24 Procedure(s): XR cervical spine 2-3V Accession Number(s): [id number] cc: Jenny Burris M.D. ; Krystyna Caba M.D. [place] [address] Patient Name: ADRIANNA BUITRAGO MRN: [id number] date: 1950 Sex: F Assigned Patient Location: Current Patient Location: Accession/Order Numb er: [id number] Exam Date: 04/22/2024 10:05 Report Date: 04/24/2024 09:45 At the request of: KRYSTYNA CABA Procedure: XR cervic al spine 2-3V Cervical spine x-ray s, 04/22/2024. HISTORY: Neck pain. COMPARISON: Cervical spine x-rays, 04/12/2024. FINDINGS: 2 views of the cervical spine obtained in lateral projection with flexion and extension. There is anterolisth esis at C2-C3 with flexion measuring 2 mm. Alignment at this level with extension is normal. The alignment of the remainder of the cervical spine level s is normal. There is moderate to severe degenerative disc disease at C3-C4 thr ough C6-C7 with disc space narrowing, irregularity of the endplates and osteop hyte formation. Severe facet arthropathy at C7-T1. X R/XR cervical spine 2-3V IMPRESSION: 1. There is mild anterolisthesis at C2-C3 with flexion. Alignment at this level with extension is no rmal suggesting there may be mild instability at the C2-C3 level. 2. Alignment at the remainder of the cervical spine levels appears normal. 3. Moderate to sever e multilevel degenerative disc disease at C3-C4 through C6-C7. Severe facet arthropathy at C7-T1. Electronically authenticated by: MAIK HERNANDEZ Date: 04/24/2024 09:45 Dictated By: Maik Hernandez M.D. Signed By: 04/24/2448 DD/ TD/TT: Tie Man: MR cervical spine wo con Reviewed date:04/18/2024 01:16:08 PM Interpretation: Performing Lab: Notes/Report: Source Facility: [place] [address] Magnetic Resonance Report Signed Patient: ADRIANNA BUITRAGO MR#: [id number] : 1950 Acct:[id number] Age/Sex: 73 / F ADM Date: 04/18/24 Loc: MRI Attending Dr: Jenny Burris M.D. Ordering Physician: Jenny Burris M.D. Date of Service: 04/18/24 Procedure(s): MR cervical spine wo con Accession Number(s): [id number] cc: Jenny Burris M.D. [place] [address] Patient Name: ADRIANNA BUITRAGO MRN: [id number] date: 1950 Sex: F Assigned Patient Location: MRI Current Patient Location: MRI Accession/Order Number: [id number] Exam Date: 04/18/2024 07:50 Report Date: 04/18/2024 08:46 At the request of: JENNY BURRIS Procedure: MR cervical spine wo con EXAMINATION: MR cervical spine wo con HISTORY: Cervical Radiculopathy COMPARISON: No relevant comparison available. TECHNIQUE: A variety of imaging planes and parameters were utilized for visualization of suspected pathology. FINDINGS: CRANIOCERVICAL AREA: Normal foramen magnum with no Chiari malformation. PARASPINAL AREA: Normal with no visible mass. BONES: No acute fracture or spondylolisthesis. Moderate diffuse degenerative spondylosis. No bone edema CORD: Normal caliber, contour, and signal intensity. CERVICAL DISC LEVELS: C2-C3: Early degenerative disc disease is present without focal protrusion or neural impingement. C3-C4: Moderate to severe disc space narrowing and disc desiccation. Endplate sclerosis. Disc/osteophyte complex. Facet osteophyte arthropathy. No central canal stenosis. Mild bilateral foraminal stenosis C4-C5: Moderate disc space narrowing and disc desiccation with endplate sclerosis. Moderate disc/osteophyte complex and facet osteoarthropathy. There is moderate narrowing of the central canal down to 6.8 mm axial image #14. Moderate right and severe left foraminal stenosis C5-C6: Disc collapse with endplate sclerosis. Disc/osteophyte complex. minimal central canal stenosis measuring 9.1 mm. Mild bilateral foraminal stenosis C6-C7: Moderate to severe disc space narrowing and disc desiccation with endplate sclerosis. Moderate disc/osteophyte complex and facet osteoarthropathy. Central canal stenosis measuring 8 mm. Severe right and moderate left foraminal stenosis C7-T1:. Early degenerative disc disease is present without focal protrusion or neural impingement. MR/MR cervical spine wo con IMPRESSION: Degenerative changes resulting in central and foraminal stenosis at multiple levels detailed above Electronically authenticated by: TESSA ESTEVES Date: 04/18/2024 08:46 Dictated By: Tessa Esteves M.D. Signed By: 04/18/2448 DD/ TD/TT: Tie Man: [place] [address] Magnetic Resonance Report Signed Patient: LALI BUITRAGO MR#: [id number] : 1950 Acct:[id number] Age/Sex: 73 / F ADM Date: 04/18/24 Loc: MRI Attending Dr: Dontae Burris M.D. Ordering Physician: Jenny Burris M.D. Date of Service: 04/18/24 Procedure(s): MR cervical spine wo con Accession Number(s): [id number] cc: Jenny Burris M.D. [address] [address] Patient Name: ADRIANNA BUITRAGO MRN: [id number] date: 1950 Sex: F Assigned Patient Location: MRI Current Patient Location: MRI Accession/Order Numb er: [id number] Exam Date: 04/18/2024 07:50 Report Date: 04/18/2024 08:46 At the request of: JENNY BURRIS Procedure: MR cervic al spine wo con EXAMINATION: MR cerv ical spine wo con HISTORY: Cervical Radiculopathy COMPARISON: No relev ant comparison available. TECHNIQUE: A variety of imaging planes and parameters were utilized for visualization of suspected pathology. FINDINGS: CRANIOCERVICAL AREA: Normal foramen magnum with no Chiari malformation. PARASPINAL AREA: Nor mal with no visible mass. BONES: No acute frac ture or spondylolisthesis. Moderate diffuse degenerative spondylosis. No bone edema CORD: Normal caliber , contour, and signal intensity. CERVICAL DISC LEVELS: C2-C3: Early degenerative disc disease is present without focal protrusion or neural impingement. C3-C4: Moderate to severe disc space narrowing and disc desiccation. Endplate sclerosis. Disc/osteophyte complex. Facet osteophyte arthropathy. No central canal stenosis. Mild bilateral foraminal stenosis C4-C5: Moderate disc space narrowing and disc desiccation with endplate sclerosis. Moderate disc/osteophyte complex and facet osteoarthropathy. There is moderate narrowin g of the central canal down to 6.8 mm axial image #14. Moderate right and severe left foraminal stenosis C5-C6: Disc collapse with endplate sclerosis. Disc/osteophyte complex. minimal central canal stenos is measuring 9.1 mm. Mild bilateral foraminal stenosis C6-C7: Moderate to severe disc space narrowing and disc desiccation with endplate sclerosis. Moderate disc/osteophyte complex and facet osteoarthropathy. Central canal stenosis measuring 8 mm. Severe right and moderate left forami nal stenosis C7-T1:. Early degenerative disc disease is present without focal protrusion or neural impingement. M R/MR cervical spine wo con IMPRESSION: Degenerative changes resulting in central and foraminal stenosis at multiple levels detailed above Electronically authenticated by: TESSA ESTEVES Date: 04/18/2024 08:46 Dictated By: Junaid Esteves M.D. Signed By: 04/18/2448 DD/ TD/TT: Tie Man: MM tomosynthesis screening B I Reviewed date:01/31/2024 10:37:30 PM Interpretation: Performing Lab: Notes/Report: Source Facility: [place] [address] [address] Mammography Report Signed Patient: ADRIANNA BUITRAGO MR#: [id number] : 1950 Acct:[id number] Age/Sex: 73 / F ADM Date: 01/29/24 Loc: MAMMO Attending Dr: Jenny Burris M.D. Ordering Physician: Jenny Burris M.D. Results: Date of Service: 01/29/24 Follow Up: Procedure(s): MM tomosynthesis screening BI Accession Number(s): [id number] cc: Jenny Burris M.D. Patient Name: ADRIANNA BUITRAGO MR#: [id number] : 1950 Exam Date: 01/29/2024 Ordering Doctor: DR Jenny Burris . RADIOLOGY REPORT PROCEDURE: MM TOMOSYNTHESIS SCREENING BI COMPARISON: MM TOMOSYNTHESIS SCREENING BI, 01/23/2023. MG MAMM SCREEN 3D NOEL CAD, 01/22/2022. MG MAMM NOEL SCRN W CAD DIG, 11/09/2012. INDICATIONS: Screening Calculator Name NCI Breast Cancer Risk Assessment Tool 5 Year Breast Cancer Risk 1.40% Lifetime Breast Cancer Risk 3.20% Personal Breast Cancer No Personal Ovarian Cancer No Treatments None Family Cancers Sister with ovarian cancer at age 53; Brother with pancreatic cancer at age 43; Uncle-maternal with bone cancer at age 60; Aunt-maternal with all over cancer at age 60; Uncle-maternal with lung cancer at age 60. LOCATION: [facility] BREAST COMPOSITION: There are scattered areas of fibroglandular density. FINDINGS: DIAGNOSTIC CATEGORY 2--BENIGN FINDING: RIGHT BREAST: No significant suspicious finding. No significant change has occurred. LEFT BREAST: No significant suspicious finding. Stable upper outer quadrant asymmetric fibroglandular tissue. No significant change has occurred. RECOMMENDATIONS: ROUTINE MAMMOGRAM AND CLINICAL EVALUATION IN 12 MONTHS. PLEASE NOTE: A NORMAL MAMMOGRAM DOES NOT EXCLUDE THE POSSIBILITY OF BREAST CANCER. A CLINICALLY SUSPICIOUS PALPABLE LUMP SHOULD BE BIOPSIED. Dictated by: Wei Garcia M.D. on 01/31/2024 at 19:45 Approved by: Wei Garcia M.D. on 01/31/2024 at 19:47 Dictated By: Wei Garcia M.D. Signed By: 01/31/241947 DD/ 46 TD/TT: Tie Man: [place] [address] Mammography Report Signed Patient: LALI BUITRAGO MR#: [id number] : 1950 Acct:[id number] Age/Sex: 73 / F ADM Date: 01/29/24 Loc: MAMMO Attending Dr: Dontae Burris M.D. Ordering Physician: Jenny Burris M.D. Results: Date of Service: 01/29/24 Follow Up: Procedure(s): MM tomosynthesis screening BI Accession Number(s): [id number] cc: Jenny Burris M.D. Patient Name: ADRIANNA BUITRAGO MR#: [id number] : 1950 Exam Date: 01/29/2024 Ordering Doctor: DR Jenny Burris . RADIOLOGY REPORT PROCEDURE: MM TOMOSYNTHESIS SCREENING BI COMPARISON: MM TOMOSYNTHESIS SCREENING BI, 01/23/2023. MG MAMM SCREEN 3D NOEL CAD, 01/22/2022. MG MAMM NOEL SCRN W CAD DIG, 11/09/2012. INDICATIONS: Screening Calculator Name NCI Breast Cancer Risk Assessment Tool 5 Year Breast Cancer Risk 1.40% Lifetime Breast Canc er Risk 3.20% Personal Breast Canc er No Personal Ovarian Can cer No Treatments None Family Cancers Siste r with ovarian cancer at age 53; Brother with pancreatic cancer at age 43; Uncle-maternal with bone cancer at age 60; Aunt-maternal with a ll over cancer at age 60; Uncle-maternal with lung cancer at age 60. LOCATION: [facility] BREAST COMPOSITION: There are scattered areas of fibroglandular density. FINDINGS: DIAGNOSTIC CATEGORY 2--BENIGN FINDING: RIGHT BREAST: No significant suspicious finding. No significant change has occurred. LEFT BREAST: No significant suspicious finding. Stable upper outer quadrant asymmetric fibroglandular tissue. No significant change has occurred. RECOMMENDATIONS: ROUTINE MAMMOGRAM AN D CLINICAL EVALUATION IN 12 MONTHS. PLEASE NOTE: A MICAELA L MAMMOGRAM DOES NOT EXCLUDE THE POSSIBILITY OF BREAST CANCER. A CLINICALLY SUSPICIOUS PALPABLE LUMP SHOULD BE BIOPSIED. Dictated by: Wei Garcia M.D. on 01/31/2024 at 19:45 Approved by: Wei Garcia M.D. on 01/31/2024 at 19:47 Dictated By: Wei Garcia M.D. Signed By: 01/31/241947 DD/ 46 TD/TT: Tie Man: CREATININE Reviewed date:01/11/2024 09:54:46 AM Interpretation: Performing Lab: Notes/Report: [facility] , Creatinine 1.42 0.55-1.02 mg/dL Estimated GFR ( Coleen 44 >=60 mL/min/1.73m 2 Estimated GFR (Non- Ngoc 36 >=60 mL/min/1.73m 2 Performing Lab: see note ML - [facility] LB CALCIUM Reviewed date:01/11/2024 09:54:46 AM Interpretation: Performing Lab: Notes/Report: [facility] , Calcium 10.2 8.5-10.1 mg/dL Performing Lab: see note - [facility] LB COVID-19, Flu A+B IH Reviewed date:01/11/2024 09:54:46 AM Interpretation: Performing Lab: Notes/Report: COVID Neg FLU A neg FLU B neg Control present Reason For Referral Diagnosis 1 Cervical radiculopat hy (M54.12) Referral Organization [facility] Referring Provider First Name Cornelio Referring Provider Last Name [place] Referring Provider Speciality Family Med icine Referred Provider [facility], Physical Therap y Referred Provider Specialty Physical Med icine and Rehabilitation Referral Priority Routine Diagnosis 1 Cervical radiculopat hy (M54.12) Referral Organization [facility] Referring Provider First Name Cornelio Referring Provider Last Name [place] Referring Provider Speciality Family Med icine Referred Provider Krystyna Joseph Referred Provider Specialty Orthopedic S urgery Referral Priority Routine Medications Medication SIG (Take, Route, Frequency, Duration) Notes Start Date End Date Status Cytomel 5 MCG 1 tablet on an empty stomach Orally Once a day for 90 days 12/04/2022 Active cloNIDine HCl 0.1 MG 1 tablet Orally twi ce daily for 90 days Active Nebulizer/Tubing/Mouthpiec e - as directed for 365 days 06/20/2024 Act bar Aspirin Low Dose 81 MG 1 tablet Orally Once a day Active Lactulose 10 GM/15ML 30ml Oral twice rabia ly as needed for 90 days PRN Active Jobst 30-40mmHg Compression Sm - as directed dx:venous insufficiency qd for 30 days 05/01/2023 Active Breztri Aerosphere 160-9-4.8 MCG/ACT 2 puffs Inhalation once daily as needed Active Levothyroxine Sodium 100 MCG 1 tablet Orally Once a day for 90 days Active Fluticasone Propionate 50 MCG/ACT 2 spray in each nostril Nasally Once a day for 90 days Active Fenofibrate 160 MG 1 tablet Orally Once a day for 90 days Active Ipratropium [place] 0.02 % 2.5 mL as needed Inhalation QID As needed 11/05/2023 Active Furosemide 20 MG 1 tablet Orally QOD, PRN for 90 days Active Azelastine HCl 137 MCG/SPRAY 2 sprays in each nostril Nasally Once a day for 90 days Active Budesonide 1 MG/2ML 1 mL Inhalation Once a day for 30 days Dx: COPD and Asthma Active Ubrelvy 100 MG 1 tablet may [...] Once a day for 90 days Active Immunizations Vaccine Route Administration Date Status Comme nts Pneumococcal (Prevnar 13) Unknown 10/27/2017 Administer ed RSV Vaccine, bivalent 1mL Unknown 04/02/2023 Administer ed SARS-COV-2 (COVID 19 Moderna - 100mcg/0.5mL) Unknown 05/14/2020 Administered SARS-COV-2 (COVID 19 Moderna - Booster 0.25mL) Unknown 06/12/2020 Administered SARS-COV-2 (COVID 19 Moderna - Booster 0.25mL) Unknown 02/06/2021 Administered SARS-COV-2 (COVID 19 Moderna - Booster 0.25mL) Unknown 07/23/2021 Administered SARS-COV-2 (COVID 19 Moderna Bivalent Booster 0.5mL) Unknown 01/11/2022 Administered SARS-COV-2 COVID-19, mRNA, [employer], PF, 50 mcg/0.5 mL Unknown 02/04/2023 Administered Social History Tobacco Use: Social History Observation Description Date Details (start date - stop date) Former Smoker 04/06/1964 - 04/06/2006 Tobacco Use/Smoking Question Answer Notes Patient is a former smoker When did you start smoking? 04/06/1964 When did you stop smoking? 04/06/2006 Alcohol Screen (Audit-C) Question Answer Notes Did you have a drink containing alcohol in the p ast year? No Points 0 Interpretation Negative AUDIT-C (Standard) Question Answer Notes Did you have a drink containing alcohol in the p ast year? 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 Problem 259712751 Mild intermitten t asthma, uncomplicated (J45.20) Active confirmed Problem Shortness of breath (641438324) Shortness of breath (R06.02) Active confirmed Problem Mitral regurgitation (78635097) Mitral regurgitation (I34.0) Active confirmed Problem Hypertension (23571953) Hypertension (I10) Active confirmed Problem Asthma (167524916) Asthma (J45.909) Active conf irmed Problem Gastroesophageal reflux disease (691670721) GERD (gastroesophageal reflux disease) (K21.9) Active confirmed Problem Cervical radiculopathy (40686542) Cervical radiculopathy (M54.12) Active confirmed Problem Hypothyroidism (74902336) Hypothyroidism (E03.9) Active confirmed Problem Edema (12995537) Edema (R60.9) Active confirmed Problem Venous insufficiency of leg (disorder) (887434182) Venous insufficiency (I87.2) Active confirmed Problem Osteopenia (014486210) Osteopenia (M85.80) Active confirmed Problem Degenerative arthritis (093591621) Degenerative arthritis (M19.90) Active confirmed Problem Lumbar radiculopathy (748888333) Lumbar radiculopathy (M54.16) Active confirmed Problem Acute sinusitis (35466272) Acute sinusitis (J01.90) Active confirmed Problem Allergic rhinitis (68468556) Allergic rhinitis (J30.9) Active confirmed Problem Cervical disc diseas e (660626699) Cervical disc disease (M50.90) Active confirmed Problem Migraine with aura (5350325) Migraine with aura (G43.109) Active confirmed Problem Osteoarthritis of hi p (816661519) 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) Active confirmed Problem Acute bronchiolitis (5376343) Acute bronchiolitis (J21.9) Active confirmed Problem Heart murmur (48014521) Cardiac murmur (R01.1) Active confirmed Problem Tricuspid valve disorder (10001250) 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) Active confirmed Problem Degeneration of lumbar intervertebral disc (09412383) 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) Active confirmed Problem Hypercholesterolemia (07109420) Hypercholesterolemia (E78.00) Active confirmed Problem Age-related cataract (79925631) Senile cataract of left eye, unspecified age-related cataract type (H25.9) Active confirmed Problem COVID-19 (274268625) COVID-19 (U07.1) Active co nfirmed Vital Signs Heart Rate 61 /min 01/06/2024 Temperature 97.9 degrees Fahrenheit 01/06/2024 Oximetry 99 % 01/06/2024 Blood pressure diastolic 80 mm Hg 05/26/2024 Height 63 in 05/26/2024 Blood pressure systolic 128 mm Hg 05/26/2024 Weight 128.6 lbs 05/26/2024 BMI 22.78 kg/m2 05/26/2024 Encounters Encounter Location Date Provider Diagnosis [facility] [address] [place] [address] 11/26/2023 Cornelio Hoy Hypertension I10 ; G ERD (gastroesophageal reflux disease) K21.9 ; Hypothyroidism E03.9 ; Lumbar radiculopathy M54.16 ; Hypercholesterolemia E78.00 and Asthma J45.909 [facility] [address] [place] [address] 09/15/2023 JENNY HOY Allergic rhinitis J3 0.9 and Acute sinusitis J01.90 [facility] [address] [place] [address] 11/05/2023 Cornelio Hoy Acute bronchitis, unspecified organism J20.9 [facility] [address] [place] [address] 05/26/2024 Cornelio Hoy Hypertension I10 ; G ERD (gastroesophageal reflux disease) K21.9 ; Hypothyroidism E03.9 and Cervical radiculopathy M54.12 [facility] [address] [place] [address] 01/06/2024 Cornelio Hoy Acute bronchiolitis J21.9 [facility] [address] [place] [address] 04/12/2024 Cornelio Hoy Degenerative arthrit is M19.90 ; Cervical disc disease M50.90 ; Cervical radiculopathy M54.12 and Edema R60.9 [facility] [address] [place] [address] 09/22/2023 JENNY HOY Asthma J45.909 [facility] [address] [place] [address] 11/26/2023 Cornelio Hoy [facility] [address] [place] [address] 12/15/2023 Cornelio Hoy [facility] [address] [place] [address] 01/11/2024 Cornelio Hoy Creatinine elevation R79.89 [facility] [address] [place] [address] 01/11/2024 Cornelio Hoy Creatinine elevation R79.89 [facility] [address] [place] [address] 01/14/2024 Cornelio Hoy [facility] [address] [place] [address] 01/15/[address] [facility] [address] [facility] [place] [address] 01/31/[address] [facility] [address] [facility] [place] [address] 02/11/[address] [facility] [address] [facility] [place] [address] 04/08/[address] [facility] [address] [facility] [place] [address] 04/12/[address] [facility] [address] [facility] [place] [address] 04/13/2024 Cornelio Hoy Cervical radiculopat hy M54.12 [facility] [address] [facility] [place] [address] 04/18/2024 Cornelio Hoy Cervical radiculopat hy M54.12 [facility] [address] [facility] [place] [address] 04/22/[address] [facility] [address] [facility] [place] [address] 04/25/[address] [facility] [address] [facility] [place] [address] 04/26/[address] [facility] [address] [facility] [place] [address] 04/28/[address] [facility] [address] [facility] [place] [address] 05/02/[address] [facility] [address] [facility] [place] [address] 05/09/[address] [facility] [address] [facility] [place] [address] 05/12/[address] [facility] [address] [facility] [place] [address] 06/20/2024 Cornelio angelia [facility] [address] [place] [address] 08/12/2024 Cornelio Burris Asthma J45.909 Assessments Encounter Date Diagnosis (ICD Code) Assessment Notes Treatment Notes Treatment Clinical Notes Section Notes 11/26/2023 Hypertension (ICD-10 - I10) good control - watch for low 11/26/2023 GERD (gastroesophage al reflux disease) (ICD-10 - K21.9) stable on meds 09/15/2023 Allergic rhinitis (ICD-10 - J30.9) 09/15/2023 Acute sinusitis (ICD -10 - J01.90) 11/05/2023 Acute bronchitis, unspecified organism (ICD-10 - J20.9) Rest and drink more liquids, especially water. You may use a humidifier or vaporizer to help keep the drainage moist. Qmjr-qch-vtfqprx Nasal Saline may help the stuffy and runny nose. Use Ibuprofen and or Tylenol as needed for fever, chills, body aches or pain. Children 5 years old should not be given jvfr-wmz-hzvcksg cough and cold medications such as guaifenesin and dextromethorphan. If you're over age 5, you may try apeh-yug-dyxzqfb cold medications such as guaifenesin and dextromethorphan, or multi-symptom cold reliever such as Dayquil to help reduce the symptoms. Antibiotics have been prescribed. You should take these until completed and follow the directions. Antibiotics can sometimes cause upset stomach, and in rare cases, serious allergic reactions or serious gastrointestinal problems. If you start having severe abdominal pain, severe vomiting, or bloody diarrhea, you should be reevaluated by your physician or urgent care immediately. Follow up with your Primary Care Provider or return to clinic if symptoms do not improve within 3-5 days. If you develop severe symptoms such as shortness of breath, repeated vomiting, coughing up blood, or chest pain you should go to the emergency room or call 911 05/26/2024 Hypertension (ICD-10 - I10) 05/26/2024 GERD (gastroesophage al reflux disease) (ICD-10 - K21.9) 01/06/2024 Acute bronchiolitis (ICD-10 - J21.9) 04/12/2024 Degenerative arthrit is (ICD-10 - M19.90) 04/12/2024 Cervical disc diseas e (ICD-10 - M50.90) 09/22/2023 Asthma (ICD-10 - J45.909) 01/11/2024 Creatinine elevation (ICD-10 - R79.89) 01/11/2024 Creatinine elevation (ICD-10 - R79.89) 04/13/2024 Cervical radiculopat hy (ICD-10 - M54.12) 04/18/2024 Cervical radiculopat hy (ICD-10 - M54.12) 08/12/2024 Asthma (ICD-10 - J45.909) 04/12/2024 Cervical radiculopat hy (ICD-10 - M54.12) 05/26/2024 Hypothyroidism (ICD- 10 - E03.9) 11/26/2023 Hypothyroidism (ICD- 10 - E03.9) checking labs 11/26/2023 Lumbar radiculopathy (ICD-10 - M54.16) stabel with actrivity 05/26/2024 Cervical radiculopat hy (ICD-10 - M54.12) 04/12/2024 Edema (ICD-10 - R60.9) 11/26/2023 Hypercholesterolemia (ICD-10 - E78.00) checking labs 11/26/2023 Asthma (ICD-10 - J45.909) Plan Of Treatment Pending Test Test Name Order Date CMP (COMPLETE METABOLIC PANEL) 3 CMP (COMPLETE METABOLIC PANEL) 4 HEMOGLOBIN A1C (GLYCO) 11/26/2023 HEMOGLOBIN A1C (GLYCO) 12/03/2022 IRON, TOTAL 12/03/2022 IRON, TOTAL 11/26/2023 LIPID PANEL (CHOL/TRIG/HDL/LDL) 12/04/19 23 LIPID PANEL (CHOL/TRIG/HDL/LDL) 11/26/19 24 CBC WITH DIFF 11/26/2023 CBC WITH DIFF 12/03/2022 VITAMIN D, 25 LEVEL (TOTAL) 12/03/2022 MRI Cervical Spine w/o contrast * 2024 Basic Metabolic Panel (8) 01/11/2024 THYROID PROFILE WITH TSH 12/05/2022 MG MAMM SCREEN 3D NOEL CAD 12/25/2022 MRI CSPINE WO CON 04/12/2024 XR DEXA BONE DENSITY 07/23/2023 THYROID PANEL (T4/TSH/FREE T3) 4 THYROID PANEL (T4/TSH/FREE T3) 3 Next Appt Details Provider Name:Cornelio Burris, 08:30:00 AM, [address] [place], [address], Insurance Providers Payer Name Payer Address Payer Phone Subscriber Number Group Number Insured Name Patient Relationship to Insured Coverage Start Date Coverage End Date MEDICARE [place] [address] [phone] [id number] Adrianna Buitrago Self - patient is the insured MMO MEDICARE SUPPLEMENT [address] [place] [address] [id number] Adrianna Buitrago Self - patient is the insured Medications Administered Medication Instructions Date of Administration Dosage Notes Kenalog-40 01/06/2024 80 mg 80 Medical (General) History Medical History History ICD Code Venous insufficiency I87.2 Lumbar radiculopathy M54.16 Low back pain 724.5 Migraine with aura G43.109 Cervical disc disease M50.90 Degenerative arthritis M19.90 Osteopenia M85.80 Senile cataract of left eye, unspecified age-related cataract type H25.9 Cardiac murmur R01.1 Chest pain R07.9 Degeneration of intervertebral disc of l umbar region M51.36 Hypercholesterolemia E78.00 Hypertension I10 Tricuspid valve disorder I07.9 Hypothyroidism E03.9 Allergic rhinitis J30.9 Mitral regurgitation I34.0 GERD (gastroesophageal reflux disease) K 21.9 Surgical History Surgery Date(Month/Year) SUE and DREW sinus surgery right foot x2 nasal septoplasty Lens implant OU Colonoscopy- Dr. Espinoza 08/05/2023
--- OUTSIDE RECORDS SUMMARY | 2024-08-28 14:39 | XMS_ITS | Encounter Summary ---
Author Organization [facility] Address [address] [place] [address] Care Team Providers Care Cyber Intel Planner Name Role Phone Miko Burris MD Primary Care Provider [phone] Reason for Visit * Reason Comments Med Refill Encounter Details Date Type Department Care Team (Late Contact Info) Description 08/12/2024 Refill [facility] [address] [place] [phone] Charles Faith MD [address] [place] [address] Mild intermittent asthma without complication (CMS/HCC) Social History Tobacco Use Types Packs/Day Years Used Date Smoking Tobacco: Former Cigarettes Q uit: 04/06/2006 Passive Smoke Exposure: Past Smokeless Tobacco: Never Alcohol Use Standard Drinks/Week Comments Not Currently 0 (1 standard drink = 0.6 oz pure alcohol) Caffeine intake: none; quit in 2014 Comments Unknown Sex and Gender Information Value Date Recorded Sex Assigned at Not on file Legal Sex Female 6:45 PM EDT Gender Identity Not on file Sexual Orientation Not on file documented as of this encounter Plan of Treatment Upcoming Encounters Date Type Department Care Team (Late Contact Info) Description 12/14/2024 8:20 AM EDT Office Visit [facility] [address] [place] [phone] Lolis Salcido NP [address] [place] [phone] 01/11/2025 9:20 AM EDT Office Visit [facility] [address] [place] [phone] Charles Faith MD [address] [facility] [address] [place] [address] documented as of this encounter Visit Diagnoses Diagnosis Mild intermittent asthma without complication (CMS/[facility]) documented in this encounter Care Teams Cyber [employer] Planner Relationship Specialty Start Date End Date Miko Burris MD PCP - General Family Medicine 04/30/23 documented as of this encounter
--- OUTSIDE RECORDS SUMMARY | 2024-08-28 14:39 | XMS_ITS | Encounter Summary ---
Author Organization [facility] Address [address] [place] [address] Care Team Providers Care Automated Teller Manager Name Role Phone Miko Burris MD Primary Care Provider [phone] Encounter Details Date Type Department Care Team ([facility] Contact Info) Description 08/25/2024 Telephone [facility] [address] [facility] [address] [place] [phone] Renny Orlando, DPSobia [address] [facility] [address] [place] [address] Social History Tobacco Use Types Packs/Day Years [...] on file documented as of this encounter Miscellaneous Notes * Telephone Encounter - Kristofer Ponce - 08/25/2024 1:15 PM EDT PT CALLED BACK AND SAID SHE DIDN'T NEED THE APPT AND SHE WILL CALL WHEN SHE NEEDS AN APPT. * Telephone Encounter - Kristofer Ponce - 08/25/2024 1:12 PM EDT CALLED PT FOR NO SHOW APPT (08/25/24) - LEFT VM TO CALL US BACK. documented in this encounter Plan of Treatment Upcoming Encounters Date Type Department Care Team (Late st Contact Info) Description 12/14/2024 8:20 AM EDT Office Visit [facility]ADD[facility] [address] [place] [address] Lolis Salcido NP [address] [place] [address] 01/11/2025 9:20 AM EDT Office Visit [facility] [address] [place] [phone] Charles Faith MD [address] [place] [address] documented as of this encounter Visit Diagnoses Not on filedocumented in this encounter Care Teams Automated Teller Manager Relationship Specialty Start Date End Date Miko Burris MD PCP - General Family Medicine 04/30/23 documented as of this encounter
--- OUTSIDE RECORDS SUMMARY | 2024-08-28 14:39 | XMS_ITS | Clinical Summary ---
Author Organization [facility] Address [address] [place] [address] Care Team Providers Care Technical Operations Vice President Name Role Phone Miko Burris MD Primary Care Provider [phone] Allergies Active Allergy Reactions Criticality Noted Date Comments Amoxicillin Itching,Other,Unknown 05/13/2022 Molds & Smuts Unknown 04/30/2023 Morphine Itching,Other 05/13/2022 Medications aspirin 81 MG EC tablet 1 (one) time each day at the same time. Active Ubrogepant 100 MG tablet Take 1 tablet by mouth Daily as needed (migraine) Active pravastatin (Pravachol) 10 MG tablet Take 10 mg by mouth at bedtime. Active omeprazole (PriLOSEC) [address] capsule Take 1 capsule every day by oral route for 90 days. Active cloNIDine (Catapres-TTS) 0.1 MG/24HR cloNIDine Active denosumab (Prolia) 60 MG/ML solution prefilled syringe Inject 60 mg under the skin every 6 (six) months Active fenofibrate (Triglide) 160 MG tablet Take 1 tablet by mouth in the morning. Active fluticasone (Flonase) 50 MCG/ACT nasal spray 1 (one) time each day at the same time. Active furosemide (Lasix) 20 MG tablet Take 1 tablet every day by oral route for 90 days. Active lactulose (Chronulac) 10 GM/15ML solution 30ml Oral twice daily as needed for 90 days Active potassium chloride CR (Klor-Con) 10 MEQ ER tablet Take 1 tablet 3 times a day by oral route for 90 days. Active azelastine (Astelin) 0.1 % nasal sprayIndications :Vasomotor rhinitis Azelastine HCl Two sprays per nostril on a b.I.d. basis. 30 mL 11 023 Active liothyronine (Cytomel) 5 MCG tablet Take by mouth Daily Active ipratropium (Atrovent) 0.02 % nebulizer solutionIndicati ons:Asthma, allergic, mild intermittent, uncomplicated (CMS/HCC) Take 2.5 mL (0.5 mg) by nebulization 4 (four) times a day as needed for wheezing or shortness of breath 75 mL 11 024 2024 Active Budeson-Glycopyr rol-Formoterol (Breztri Aerosphere) 160-9-4.8 MCG/ACT aerosol Inhale 1 puff Daily Active levothyroxine (Synthroid, Levoxyl) 100 MCG tablet Take 100 mcg by mouth in the morning. Take before meals. Active cloNIDine (Catapres) 0.1 MG tablet Take 0.1 mg by mouth in the morning and 0.1 mg before bedtime. Active budesonide (Pulmicort) 1 MG/2ML nebulizer solutionIndicati ons:Mild intermittent asthma without complication (CMS/HCC) INHALE THE CONTENTS OF 1 VIAL VIA NEBULIZER IN THE MORNING AND AT BEDTIME, RINSE MOUTH WITH WATER AFTER TO USE TO REDUCE AFTERTASTE AND INCIDENCE OF CANDIDIASIS. DO NOT SWALLOW 180 mL 3 025 Active budesonide (Pulmicort) 1 MG/2ML nebulizer solutionIndicati ons:Mild intermittent asthma without complication (CMS/HCC) Take 2 mL (1 mg) by nebulization in the morning and 2 mL (1 mg) before bedtime. Rinse mouth with water after use to reduce aftertaste and incidence of candidiasis. Do not swallow.. 124 mL 11 024 2024 Discontinued Active Problems Problem Noted Date Diagnosed Date Migraine with aura and witho ut status migrainosus, not intractable 12/14/2023 Overview (12/14/2023): The patient has a long-standing history of episodic migraine. She suspects onset was in her early 20s. MRI of the brain and CT of the sinuses (details in HPI section) were unremarkable for secondary cause. The patient is averaging approximately 2 migraines per month recently which are adequately relieved by Ubrelvy. Has tried and failed sumatriptan for migraine in the past. The patient is content with the current regimen and does not wish to make any changes today. - PLAN: - I do not believe preventative treatment is warranted at this time, and the patient agrees. Could consider this in the future if her migraines become more frequent or cause significant disability. - Continue Ubrelvy 100 mg PO as needed for migraine . Proper use discussed - Ubrelvy is cost prohibitive so the patient was provided with samples today - Adequate hydration, sleep hygiene, and regular exercise as tolerated Resolved Problems Problem Noted Date Diagnosed Date Resolved Date Migraine 12/14/2023 12/15/2023 Chronic migraine without aur a without status migrainosus, not intractable 12/14/2023 12/15/2023 Encounters Date Type Department Care Team Description 08/25/2024 Telephone [facility] [address] [facility] [address] [place] [address] Renny Orlando DPM 08/12/2024 Refill [facility] [address] [place] [address] Charles Faith MD Mild intermittent asthma without complication ([facility]) 06/29/2024 Telephone [facility] [address] [place] [address] Renny Russo MA 06/16/2024 9:00 AM EDT Procedure Visit [facility] [address] [facility] [address] [place] [address] Renny Orlando DPM Verruca plantaris (Primary Dx); Foot pain, right; Foot pain, left 06/16/2024 Bamboo flowsheet [facility] [address] [place] [address] Renny Orlando DPM 06/16/2024 Travel from Last 3 Months Family History Medical History Relation Name Comments Coronary artery disease Father Hyperlipidemia Father Hypertension Father Coronary artery disease Mother Hyperlipidemia Mother Hypertension Mother Alcohol abuse Other COPD Other Clotting disorder Other Hyperlipidemia Other Hypertension Other Learning disabilities Other Mental illness Other Obesity Other Peripheral vascular disease Other COPD Sibling Cancer Sibling Coronary artery disease Sibling Depression Sibling Diabetes Sibling Hyperlipidemia Sibling Hypertension Sibling Migraines Sibling Relation Name Status Comments Father Mother Other Sibling Social History Tobacco Use Types Packs/Day Years Used Date Smoking Tobacco: Former Cigarettes Q uit: 04/06/2006 Passive Smoke Exposure: Past Smokeless Tobacco: Never Tobacco Cessation:Counseling Given: Yes Alcohol Use Standard Drinks/Week Comments Not Currently 0 (1 standard drink = 0.6 oz pure alcohol) Caffeine intake: none; quit in 2014 Comments Unknown Sex and Gender Information Value Date Recorded Sex Assigned at Not on file Legal Sex Female 6:45 PM EDT Gender Identity Not on file Sexual Orientation Not on file Last Filed Vital Signs Vital Sign Reading Time Taken Comments Blood Pressure 126/80 02/11/2024 8:33 AM EST Pulse 81 02/11/2024 8:33 AM EST Temperature - - Respiratory Rate 18 06/16/2024 8:48 AM EDT Oxygen Saturation - - Inhaled Oxygen Concentration - - Weight 58.5 kg (129 lb) 06/16/2024 8:48 AM EDT Height 160 cm (5' 3 ) 06/16/2024 8:48 AM EDT Body Mass Index 22.85 06/16/2024 8:48 AM EDT Plan of Treatment Upcoming Encounters Date Type Department Care Team (Late st Contact Info) Description 12/14/2024 8:20 AM EDT Office Visit [facility] [address] [place] [address] Lolis Salcido NP [address] [place] [address] 01/11/2025 9:20 AM EDT Office Visit [facility] [address] [place] [address] Charles Faith MD [address] [place] [address] Health Maintenance Due Date Last Done Comments CT Colonography 1949 Colonoscopy 1949 Colorectal Cancer Screening 1949 FIT-DNA 1949 FIT 1949 FOBT 1950 Sigmoidoscopy 1949 Mammogram 1989 Pneumococcal Vaccine: 65+ Years (2 of 2 - PPSV23) 10/0510/27/2017 Influenza Vaccine (Season Ended) 2024 Insurance [employer] Care Teams Technical Operations Vice President Relationship Specialty Start Date End Date Miko Burris MD PCP - General Family Medicine 04/30/23
--- OUTSIDE RECORDS SUMMARY | 2024-08-28 14:39 | XMS_ITS | Patient Health Record ---
Author Organization [facility] Address [address] [place] [address] Care Team Providers Care Fiberglass Boat Builder Name Role Phone José Miguel Joseph Unavailable [phone] [place] Miko Unavailable Unavailable Sophia Austin Unavailable [phone] Allergies Allergen (clinical drug ingredient) Drug/Non Drug Allergy documented on EMR Reaction Allergy Type Onset Date Status amoxicillin amoxicillin itching Drug Allergy Act bar morphine morphine swelling, itch Drug Allergy Ac tive Reason For Referral Reason NO AUTH REQ......... ............................NOT SCHEDULED..................................MCR/MMO MRI LEFT SHOULDER TO BE DONE AT [facility] Diagnosis 1 Tear of left rotator cuff, unspecified tear extent, unspecified whether traumatic (M75.102) Referral Organization [facility] Referring Provider First Name Fayearchie Referring Provider Last Name St Adhikari Referring Provider Speciality Orthopedic Surgery Referred Organization [facility] Referred Address [address] [place], [place],[address], Procedure 1 MRI Joint Upper Ext w/o Dye ([id number]) General Notes Farida Doyle 025 11:02:20 AM > MEDICARE PART A ACTIVE AND EFFECTIVE 10/04/14 AND PART B ACTIVE AND EFFECTIVE 11/04/14 PER [employer] WITH MMO SECONDARY. NO AUTHORIZATION REQUIRED. FAXED TO [email or web address] Sara 04/25/2024 11:59:13 AM > order faxed Referral Priority Routine Social History Tobacco Use: Social History Observation [...] Problem Status W/U Status Risk Notes Problem [id number] Cervical radiculopathy (M54.12) Active confirmed Problem 11433367 Cervical spinal stenosis (M48.02) Active confirmed Problem 73306750 Muscle weakness (M62.81) Active confirmed Problem 32243950 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-C5 level (M50.321) Active confirmed Problem 37121855 Other cervical disc degeneration at C5-C6 level (M50.322) Active confirmed Problem 95564797 Other cervical disc degeneration at C6-C7 level (M50.323) Active confirmed Problem 55835606 Other cervical disc degeneration, high cervical region (M50.31) Active confirmed Problem 879819647 Complete tear of left rotator cuff, unspecified whether traumatic (M75.122) Active confirmed Problem 103932711096 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) Active confirmed Encounters Encounter Location Date Provider Diagnosis [facility] [place] [employer] [place] [address] 04/22/2024 [facility] Other cervical disc degeneration, high cervical region M50.31 ; 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-C5 level M50.321 ; Other cervical disc degeneration at C5-C6 level M50.322 ; Other cervical disc degeneration at C6-C7 level M50.323 ; Cervical radiculopathy M54.12 ; Neuroforaminal stenosis of cervical spine M48.02 and Muscle weakness M62.81 [facility] [place] [address] 05/13/2024 [facility] Other cervical disc degeneration, high cervical region [...] Notes Section Notes 04/22/2024 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-C5 level (ICD-10 - M50.321) 1. C3-7 DDD/radicul opathy/neur oforaminal stenosis 2. Left rotator cuff weakness 04/22/2024 Other cervical disc degeneration, high cervical region (ICD-10 - M50.31) 1. C3-7 DDD/radicul opathy/neur oforaminal stenosis 2. Left rotator cuff weakness 05/13/2024 Other cervical disc degeneration, high cervical region (ICD-10 - M50.31) 1. Left rotator cuff tear 2. C3-7 DDD/radicul opathy/neur oforaminal stenosis 05/13/2024 Complete tear of left rotator cuff, unspecified whether traumatic (ICD-10 - M75.122) 1. Left rotator cuff tear 2. C3-7 DDD/radicul opathy/neur oforaminal stenosis 05/13/2024 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-C5 level (ICD-10 - M50.321) 1. Left rotator cuff tear 2. C3-7 DDD/radicul opathy/neur oforaminal stenosis 04/22/2024 Other cervical disc degeneration at C5-C6 level (ICD-10 - M50.322) 1. C3-7 DDD/radicul opathy/neur oforaminal stenosis 2. Left rotator cuff weakness 04/22/2024 Other cervical disc degeneration at C6-C7 level (ICD-10 - M50.323) 1. C3-7 DDD/radicul opathy/neur oforaminal stenosis 2. Left rotator cuff weakness 05/13/2024 Other cervical disc degeneration at C5-C6 level (ICD-10 - M50.322) 1. Left rotator cuff tear 2. C3-7 DDD/radicul opathy/neur oforaminal stenosis 05/13/2024 Other cervical disc degeneration at C6-C7 level (ICD-10 - M50.323) 1. Left rotator cuff tear 2. C3-7 DDD/radicul opathy/neur oforaminal stenosis 04/22/2024 Cervical radiculopathy (ICD-10 - M54.12) 1. C3-7 DDD/radicul opathy/neur oforaminal stenosis 2. Left rotator cuff weakness 04/22/2024 Neuroforaminal stenosis of cervical spine (ICD-10 - M48.02) 1. C3-7 DDD/radicul opathy/neur oforaminal stenosis 2. Left rotator cuff weakness 05/13/2024 Cervical spinal stenosis (ICD-10 - M48.02) 1. Left rotator cuff tear 2. C3-7 DDD/radicul opathy/neur oforaminal stenosis 05/13/2024 Cervical radiculopathy (ICD-10 - M54.12) 1. Left rotator cuff tear 2. C3-7 DDD/radicul opathy/neur oforaminal stenosis 04/22/2024 Muscle weakness (ICD-10 - M62.81) 1. C3-7 DDD/radicul opathy/neur oforaminal stenosis 2. Left rotator cuff weakness 04/22/2024 [...] contact Dr. Caba. Best regards, 1. C3-7 DDD/radicul opathy/neur oforaminal stenosis 2. Left rotator cuff weakness 05/13/2024 Other Plan established by Dr. Caba. [...] 1. Left rotator cuff tear 2. C3-7 DDD/radicul opathy/neur oforaminal stenosis Plan Of Treatment Pending Test Test Name Order Date Cervical spine 2 v FLEX, EXT - [id number] MRI Shoulder Left w/o Contrast 5 Insurance Providers Payer Name Payer Address Payer Phone Subscriber Number Group Number Insured Name Patient Relationship to Insured Coverage Start Date Coverage End Date [place] [address] [id number] AKIRA PERALTA Self - patient is the insured Medical [facility] [address] [place] [address] [phone] [id number] AKIRA PERALTA Self - patient is the insured Medical (General) History Medical History History ICD Code Hypertension Heart murmur Asthma Bronchitis Thyroid disease GERD: Osteoporosis Osteoarthritis
--- OUTSIDE RECORDS SUMMARY | 2024-08-28 14:39 | XMS_ITS | Referral Summary ---
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 12/12/2008 Active fenofibrate (Lofibra) 160 mg tablet Take 160 mg by mouth in the morning. Active furosemide (Lasix) 20 mg tablet Take 20 mg by mouth 4 (four) times a week. Active levothyroxine (Synthroid, Levoxyl) 100 mcg tablet levothyroxine 100 mcg tablet Active omeprazole (PriLOSEC) [address] capsule omeprazole 40 mg capsule,delayed release Active potassium chloride CR (Klor-Con) 10 mEq ER tablet Take 10 mEq by mouth 4 (four) times a week. Active pravastatin (Pravachol) 10 mg tablet Take 10 mg by mouth at bedtime. Active ubrogepant (Ubrelvy) 50 mg tablet 100 mg in the morning. Active budesonide-glycopyr -formoterol (Breztri Aerosphere) 160-9-4.8 mcg/actuation HFA aerosol inhaler every 12 (twelve) hours. 12/11/2021 Active denosumab (Prolia) 60 mg/mL syringe 1 injection Active azelastine (Astelin) 137 mcg (0.1 %) nasal spray Administer 2 sprays into each nostril in the morning and at bedtime. 02/02/2023 Active aspirin 81 mg EC tablet 1 (one) time each day at the same time. Active lactulose 10 gram/15 mL solution 08/28/2022 Activ e liothyronine (Cytomel) 5 mcg tablet 1 (one) time each day at the same time. 12/04/2022 Active albuterol 2.5 mg /3 mL (0.083 %) nebulizer solution INHALE 3 ML EVERY 6 HOURS NEEDED 06/30/2023 Active ipratropium (Atrovent) 0.02 % nebulizer solution TAKE 2.5 ML BY NEBULIZATION 4 TIMES A DAY NEEDED FOR WHEEZING OR SHORTNESS OF BREATH Active Active Problems Problem Noted Date Diagnosed Date Migraine with aura and witho ut status migrainosus, not intractable 12/14/2023 Overview (04/29/2024): The patient has a long-standing history of [...] sleep hygiene, and regular exercise as tolerated Acute bronchiolitis 04/10/2023 04/10/2023 Severe persistent asthma 05/13/2022 Family history of premature coronary heart disea se 11/29/2021 Assessment & Plan (11/25/2022 9:53 AM EDT): Remains stable, chest pain resolved and no acute concerns currently Hyperlipidemia 11/29/2021 Assessment & Plan (11/25/2022 9:52 AM EDT): Continue pravastatin 10 mg daily and fenofibrate- pt states PCP orders her annual labs F/U with PCP Mitral valve regurgitation 11/29/2021 Assessment & Plan (11/25/2022 9:53 AM EDT): Current echo 05/2022- Mild MR and no concerning symptoms currently Tricuspid valve regurgitation 11/29/2021 Assessment & Plan (11/25/2022 9:53 AM EDT): Current echo 05/2022- Mild MR and no concerning symptoms currently Chest pain 09/02/2016 Chronic kidney disease 09/02/2016 Social History Tobacco Use Types Packs/Day Years Used Date Smoking Tobacco: Former Cigarettes Q uit: 2006 Smokeless Tobacco: Never Tobacco Cessation:Counseling Given: Not Answered Alcohol Use Standard Drinks/Week Comments Not Currently 0 (1 standard drink = 0.6 oz pur e alcohol) [place] Safety & Environment Answer Date Rec orded Fear of Current or Ex-Partner Not on file Emotionally Abused Not on file 05/28/2023 Physically Abused Not on file 05/28/2023 Sexually Abused Not on file 05/28/2023 Physically or Sexually Abused Not on file Sex and Gender Information Value Date Recorded Sex Assigned at Not on file Gender Identity Not on file Sexual Orientation Not on file Last Filed Vital Signs Vital Sign Reading Time Taken Comments Blood Pressure 144/78 04/29/2024 10:26 AM EST Pulse 62 04/29/2024 10:02 AM EST Temperature - - Respiratory Rate - - Oxygen Saturation 99% 04/29/2024 10:02 AM EST Inhaled Oxygen Concentration - - Weight 57.6 kg (127 lb) 04/29/2024 10:02 AM EST Height 160 cm (5' 3 ) 04/29/2024 10:02 AM EST Body Mass Index 22.5 04/29/2024 10:02 AM EST Plan of Treatment Not on file Care Teams Sock Knitting Machine Operator Relationship Specialty Start Date End Date Miko Burris MD [address] [facility] [address] [address] PCP - General 05/14/22
--- OUTSIDE RECORDS SUMMARY | 2024-08-28 14:39 | XMS_ITS | Clinical Summary ---
Demographics Address [address] [place] [address] Home Phone Preferred Language en Marital Status Orthodox Affiliation Unknown Race White Ethnic Group Not or Lati no Author Organization [facility] Address [address] [place] [address] Care Team Providers Care Jockey Valet Name Role Phone Miko Burris MD Primary Care Provider [phone] Allergies Active Allergy Reactions Criticality Noted Date [...] Chest pain 09/02/2016 Chronic kidney disease 09/02/2016 Family History Medical History Relation Name Comments Heart attack Brother Heart attack Father Coronary artery disease Sister Peripheral vascular disease Sister Relation Name Status Comments Brother Father Sister Social History Tobacco Use Types Packs/Day Years [...] 04/29/2024 10:02 AM EST Plan of Treatment Health Maintenance Due Date Last Done Comments CT Colonography 1949 Colonoscopy 1949 Colorectal Cancer Screening 1949 FIT-DNA 1949 FIT 1949 FOBT 1950 Medicare Annual Wellness (AWV) 1950 Sigmoidoscopy 1949 Depression Screening 1961 Adult Tetanus 10/06/1971 Mammogram 1989 Zoster Vaccines (1 of 2) 10/06/1999 Fall Risk Screening 2014 Pneumococcal Vaccine: 65+ Years (2 of 2 - PPSV23 or PCV20) 12/22/2017 10/27/2017 COVID-19 Vaccine ( season) 2024 02/10/2024, 02/04/2023, 01/11/2022, Additional history exists Influenza Vaccine (Season Ended) 2024 HIB Vaccines Aged Out No longer eligi ble based on patient's age to complete this topic HPV Vaccines Aged Out No longer eligi ble based on patient's age to complete this topic IPV Vaccines Aged Out No longer eligi ble based on patient's age to complete this topic Meningococcal B Vaccine Aged Out No l onger eligible based on patient's age to complete this topic Meningococcal Vaccine Aged Out No virgil carla eligible based on patient's age to complete this topic Rotavirus Vaccines Aged Out No longer eligible based on patient's age to complete this topic Care Teams Jockey Valet Relationship Specialty Start Date End Date Miko Burris MD [address] [facility] [address] [address] PCP - General 05/14/22
--- NOTE | 2024-08-28 15:01 | ED.GENADUL1 ---
HPI HPI - General Adult General Chief complaint: Headache Stated complaint: HEADACHE Time Seen by Provider: 08/28/24 15:01 Source: patient Mode of arrival: walk-in History of Present Illness HPI narrative: 73 year old female presents to the ED for a headache, elevated blood pressure. Reports a right frontal headache. Onset was 2 days ago. States the pain location is typical for her migraines, but they do not usually last this long. Reports fatigue, not feeling well for a few days. She has had a worse than normal cough and chills. States her BP has been elevated at home. It has been running 140s/80s which is concerning to her. She has hx COPD; she has been using her home medication as directed. Denies fever, vision changes, dizziness, injury. Denies CP, N/V/D, neck pain/stiffness. Related Data Home Medications ?Medication ?Instructions ?Recorded ?Confirmed azelastine 137 mcg (0.1 %) nasal 137 mcg intranasal DAILY 07/08/23 01/11/24 spray budesonide 1 mg/2 mL suspension 1 mg inhalation DAILY 07/08/23 01/11/24 for nebulization clonidine HCl 0.1 mg tablet 0.1 mg PO Q12H 07/08/23 01/11/24 fenofibrate 160 mg tablet 160 mg PO DAILY 07/08/23 01/11/24 furosemide 20 mg tablet 20 mg PO DAILY 07/08/23 01/11/24 lactulose 10 gram/15 mL oral 20 g PO BID 07/08/23 01/11/24 solution levothyroxine 100 mcg tablet 100 mcg PO DAILY 07/08/23 01/11/24 omeprazole 40 mg capsule,delayed 40 mg PO DAILY 07/08/23 01/11/24 release potassium chloride 10 mEq 10 meq PO TID 07/08/23 01/11/24 tablet,extended release pravastatin 10 mg tablet 10 mg PO DAILY 07/08/23 01/11/24 aspirin 81 mg tablet,delayed 81 mg PO DAILY 07/24/23 01/11/24 release (Adult Aspirin Regimen) budesonide 160 mcg-glycopyr 9 2 inh inhalation BID 07/24/23 01/11/24 mcg-formot 4.8 mcg/actuation HFA inhaler (Breztri Aerosphere) cetirizine 10 mg tablet 10 mg PO DAILY 07/24/23 01/11/24 denosumab 60 mg/mL subcutaneous 60 mg subcut .every 6 months 07/24/23 01/11/24 syringe (Prolia) fluticasone propionate 50 2 spray intranasal DAILY 07/24/23 01/11/24 mcg/actuation nasal spray,suspension liothyronine 5 mcg tablet (Cytomel) 5 mcg PO DAILY 07/24/23 01/11/24 multivitamin 1 tab PO DAILY 07/24/23 01/11/24 ubrogepant 100 mg tablet (Ubrelvy) 100 mg PO DAILY 07/24/23 01/11/24 albuterol sulfate 2.5 mg/0.5 mL 2.5 mg inhalation TID-QID PRN 07/27/23 01/11/24 solution for nebulization shortness of breath or wheezing budesonide 160 mcg-glycopyr 9 2 inh inhalation DAILY 01/11/24 01/11/24 mcg-formot 4.8 mcg/actuation HFA inhaler (Breztri Aerosphere) calcium 315 mg (as 1 tab PO DAILY 01/11/24 01/11/24 citrate)-vitamin D3 5 mcg (200 unit) tablet (Calcium Citrate + D) docosahexaenoic acid (dha)-epa 120 1 cap PO DAILY 01/11/24 01/11/24 mg-180 mg capsule (Fish Oil) [id number] 1 tab PO DAILY 01/11/24 01/11/24 750 mg-100 mg-125 mg-1.65 mg tablet (Glucosamine Chondroit Complx Advan) Allergies Allergy/AdvReac Type Severity Reaction Status Date / Time amoxicillin Allergy Unknown itching Verified 07/24/23 11:44 morphine Allergy Unknown itching Verified 07/24/23 11:44 Review of Systems ROS Constitutional Denies: fever or chills Eyes Denies: change in vision or light sensitivity Ears, nose, mouth, and throat Denies: throat pain or neck pain Cardiovascular Denies: chest pain Respiratory Reports: cough; Denies: shortness of breath or stridor Gastrointestinal Denies: abdominal pain, nausea, vomiting or diarrhea Genitourinary Denies: painful urination Musculoskeletal Denies: back pain Integumentary/Breast Denies: rash Neurological Reports: headache; Denies: numbness in extremities, weakness in extremities, dizziness, vertigo, confusion, slurred speech or difficulty communicating thoughts [facility] Medical History (Updated 08/28/24 @ 20:43 by Kenya Clinton) COPD (chronic obstructive pulmonary disease) ?J44.9 - Chronic obstructive pulmonary disease, unspecified (ICD-10) COVID ?U07.1 - COVID-19 (ICD-10) Chronic bronchitis ?J42 - Unspecified chronic bronchitis (ICD-10) Venous insufficiency ?I87.2 - Venous insufficiency (chronic) (peripheral) (ICD-10) Tricuspid valve disease ?I07.9 - Rheumatic tricuspid valve disease, unspecified (ICD-10) Peripheral vascular disease ?I73.9 - Peripheral vascular disease, unspecified (ICD-10) Osteoporosis ?M81.0 - Age-related osteoporosis without current pathological fracture (ICD-10) Mitral valve insufficiency ?I34.0 - Nonrheumatic mitral (valve) insufficiency (ICD-10) Migraines ?G43.909 - Migraine, unspecified, not intractable, without status migrainosus (ICD-10) Lumbar radiculopathy ?M54.16 - Radiculopathy, lumbar region (ICD-10) Hypothyroidism ?E03.9 - Hypothyroidism, unspecified (ICD-10) Hyperlipidemia ?E78.5 - Hyperlipidemia, unspecified (ICD-10) Hypercholesteremia ?E78.00 - Pure hypercholesterolemia, unspecified (ICD-10) GERD (gastroesophageal reflux disease) ?K21.9 - Gastro-esophageal reflux disease without esophagitis (ICD-10) Hypertension ?I10 - Essential (primary) hypertension (ICD-10) Cervical disc disease ?M50.90 - Cervical disc disorder, unspecified, unspecified cervical region (ICD-10) Heart murmur ?R01.1 - Cardiac murmur, unspecified (ICD-10) Asthma ?J45.909 - Unspecified asthma, uncomplicated (ICD-10) Surgical History (Updated 08/05/23 @ 08:47 by Carolina Kruger) H/O foot surgery ?Z98.890 - Other specified postprocedural states (ICD-10) History of total abdominal hysterectomy and bilateral salpingo-oophorectomy ?Z90.710 - Acquired absence of both cervix and uterus (ICD-10) ?Z90.722 - Acquired absence of ovaries, bilateral (ICD-10) ?Z90.79 - Acquired absence of other genital organ(s) (ICD-10) History of nasal septoplasty ?Z98.890 - Other specified postprocedural states (ICD-10) Hx of cataract surgery ?Z98.49 - Cataract extraction status, unspecified eye (ICD-10) History of colonoscopy ?Z98.890 - Other specified postprocedural states (ICD-10) Family History (Updated 07/24/23 @ 14:02 by Carolina Kruger) Other Family history of COPD (chronic obstructive pulmonary disease) Family history of cancer Family history of hypertension Heart disease Social History (Updated 07/27/23 @ 14:44 by Chelo Fulton RN) Within the past year, how often did you have a drink containing alcohol: never Score interpretation: A score less than 3 is consistent with normal alcohol consumption. 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 Highest level of school completed/degree received: high school graduate Little interest or pleasure in doing things: not at all Feeling down, depressed, or hopeless: not at all Exam Constitutional Vital Signs, click to edit/add: Last Vital Signs Temp 98.0 F 08/28/24 14:48 Pulse 68 08/28/24 19:24 Resp 16 08/28/24 19:24 BP 140/58 08/28/24 19:24 Pulse Ox 98 08/28/24 19:24 O2 Del Method Room Air 08/28/24 14:48 Common normals: no apparent distress and oriented x3 General appearance: cooperative; not ill appearing [facility] Common normals: external ears normal and moist oral mucous membranes Eye Common normals: PERRL, EOMs intact bilaterally, conjunctivae normal and no scleral icterus Neck & C-Spine Common normals: supple and no meningeal signs Chest Chest: symmetrical chest wall rise Respiratory Common normals: normal respiratory effort, no use of accessory muscles and clear to auscultation bilaterally Effort & inspection: able to speak in complete sentences and symmetric chest movement Cardio Common normals: regular rate and regular rhythm Neuro Common normals: oriented x3, CN's II-XII intact bilaterally, moves all extremities and no focal motor deficits Sensorium/orientation: awake and alert Speech: speech normal Gait (neuro): normal gait Course Vital Signs Vital signs: Vital Signs Temperature 98.0 F 08/28/24 14:48 Pulse Rate 73 08/28/24 14:48 Respiratory Rate 20 08/28/24 14:48 Blood Pressure 152/74 H 08/28/24 14:48 Pulse Oximetry 99 08/28/24 14:48 Oxygen Delivery Method Room Air 08/28/24 14:48 Temperature 98.0 F 08/28/24 14:48 Pulse Rate 68 08/28/24 19:24 Respiratory Rate 16 08/28/24 19:24 Blood Pressure 140/58 08/28/24 19:24 Pulse Oximetry 98 08/28/24 19:24 Oxygen Delivery Method Room Air 08/28/24 14:48 Medical Decision Making MDM Narrative Medical decision making narrative: Covid-19 was negative. Additional laboratory studies were unremarkable. Chest x-ray was reviewed by Dr. Maharaj and showed no acute findings. The patient was given Decadron and Fioricet for her headache with relief. She reported she was feeling much better. Findings were discussed. BP was unremarkable here in the ED. She was encouraged to follow up with her pcp this week for a recheck, further evaluation and treatment. Return precautions were discussed. Medical Records Medical records reviewed: Yes I reviewed the patient's medical records Lab Data Lab results reviewed: Yes I reviewed the patient's lab results Labs: Lab Results 08/28/24 08/28/24 08/28/24 Range/Units 15:15 15:17 15:20 WBC 13.0 H (4.0-11.0) 10^3/uL RBC 4.15 L (4.20-5.40) 10^6/uL Hgb 13.2 (12.0-16.0) g/dL Hct 39.7 (36.0-48.0) % MCV 95.7 (81.0-99.0) fL MCH 31.8 (26.7-34.0) pg MCHC 33.2 (29.9-35.2) g/dL RDW 14.0 (11.0-15.0) % Plt Count 328 (150-450) 10^3/uL MPV 11.0 (9.5-13.5) fL Neut % (Auto) 76.9 H (43.0-75.0) % Lymph % (Auto) 12.4 L (20.5-60.0) % [place] % (Auto) 7.4 (1.7-12.0) % Eos % (Auto) 2.7 (0.9-7.0) % Baso % (Auto) 0.4 (0.2-2.0) % Neut # (Auto) 10.0 H (1.4-6.5) 10^3/uL Lymph # (Auto) 1.6 (1.2-3.8) 10^3/uL [place] # (Auto) 1.0 H (0.3-0.8) 10^3/uL Eos # (Auto) 0.4 (0.0-0.7) 10^3/uL Baso # (Auto) 0.1 (0.0-0.1) 10^3/uL Abs Immat Gran (auto) 0.03 (0.00-0.03) 10^3/uL Imm/Tot Granulo (auto) 0.2 (0.0-0.5) % Sodium 145 (136-145) mmol/L Potassium 3.7 (3.5-5.1) mmol/L Chloride 105 (98-107) mmol/L Carbon Dioxide 33.0 H (21.0-32.0) mmol/L Anion Gap 10.7 BUN 25.0 H (7.0-18.0) mg/dL Creatinine 1.24 H (0.55-1.02) mg/dL Est GFR ( Amer) 51 L (>=60 mL/min/1.73m^2) Est GFR (Non-Af Amer) 42 L (>=60 mL/min/1.73m^2) BUN/Creatinine Ratio 20.2 Glucose 114 H (74-106) mg/dL Calcium 10.0 (8.5-10.1) mg/dL Urine Color Lt. yellow (YELLOW) Urine Clarity Clear (CLEAR) Urine pH 6.0 (5.0-9.0) Ur Specific [place] <=1.005 A (1.005-1.025) Urine Protein Negative (NEG/TRACE) mg/dL Urine Glucose (UA) Negative (NEGATIVE) mg/dL Urine Ketones Negative (NEGATIVE) mg/dL Urine Occult Blood Negative (NEGATIVE) Urine Nitrite Negative (NEGATIVE) Urine Bilirubin Negative (NEGATIVE) Urine Urobilinogen 0.2 (0.2-1.0) EU/dL Ur Leukocyte Esterase Negative (NEGATIVE) SARS-CoV-2 Ag (CV2AG) Negative (NEGATIVE) Imaging Data CT scan - head: Attestation: I have reviewed the pertinent imaging results. Radiologist's impression: 1. No acute process seen in the brain. 2. Mild generalized brain volume loss consistent with age. 3. No acute intracranial hemorrhage, mass, infarct, or edema. ECG Data Attestation: ?I have reviewed the pertinent ECG results. (EKG was reviewed by the attending physician. It showed sinus rhythm at a rate of 64. WA interval 118 ms. No STEMI.) Interpretation: Measurements Intervals [place] Rate: 64 P: 65 WA: 118 QRS: 79 QRSD: 84 T: 72 QT: 376 QTc: 386 Interpretive Statements 1100 Sinus rhythm 2210 Short [place] interval 9150 abnormal ECG No previous ECG available for comparison Discharge Plan Discharge Chief Complaint: Headache Clinical Impression: Headache, Cough Patient Disposition: Home, Self-Care Time of Disposition Decision: 20:43 Condition: Good Mode of Transportation: Private Vehicle Prescriptions / Home Meds: No Action Breztri Aerosphere 160-9-4.8 mcg/actuation HFA aerosol inhaler 2 inh inhalation DAILY calcium citrate-vitamin D3 [Calcium Citrate + D] 315 mg-5 mcg (200 unit) tablet 1 tab PO DAILY Fish Oil 120-180 mg capsule 1 cap PO DAILY Glucos Chond Cplx Advanced 750 mg-100 mg- 125 mg-1.65 mg tablet 1 tab PO DAILY aspirin [Adult Aspirin Regimen] 81 mg tablet,delayed release (DR/EC) 81 mg PO DAILY Breztri Aerosphere 160-9-4.8 mcg/actuation HFA aerosol inhaler 2 inh inhalation BID cetirizine 10 mg tablet 10 mg PO DAILY liothyronine [Cytomel] 5 mcg tablet 5 mcg PO DAILY fluticasone propionate 50 mcg/actuation spray,suspension 2 spray intranasal DAILY Rx Instructions: administer into each nostril Ubrelvy 100 mg tablet 100 mg PO DAILY Prolia 60 mg/mL syringe 60 mg subcut .every 6 months Patient Comments: last dose was in last month multivitamin Tablet 1 tab PO DAILY albuterol sulfate 2.5 mg/0.5 mL solution for nebulization 2.5 mg inhalation TID-QID PRN (Reason: shortness of breath or wheezing) clonidine HCl 0.1 mg tablet 0.1 mg PO Q12H potassium chloride 10 mEq tablet extended release 10 meq PO TID omeprazole 40 mg capsule,delayed release(DR/EC) 40 mg PO DAILY levothyroxine 100 mcg tablet 100 mcg PO DAILY pravastatin 10 mg tablet 10 mg PO DAILY furosemide 20 mg tablet 20 mg PO DAILY azelastine 137 mcg (0.1 %) aerosol,spray 137 mcg INTRANASAL DAILY lactulose 10 gram/15 mL solution 20 g PO BID fenofibrate 160 mg tablet 160 mg PO DAILY budesonide 1 mg/2 mL suspension for nebulization 1 mg inhalation DAILY Print Language: Korean Instructions: Acute Headache (ED) Additional Instructions: Return to the ER for worsening symptoms. Referrals: Miko Burris MD [Primary Care Provider, Family Practice] - 1 week
--- NOTE | 2024-08-28 15:09 | ECG_ITS ---
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 Measurements Intervals [place] Rate: 64 P: 65 IN: 118 QRS: 79 QRSD: 84 T: 72 QT: 376 QTc: 386 Interpretive Statements 1100 Sinus rhythm 2210 Short IN interval 9150 abnormal ECG Compared to ECG 06/23/2023 15:46:53 Short IN interval now present Electronically Signed On 08-29-2024 7:53:00 EDT by HOMER STEVENS M.D.
[2024-08-28] MEDS: BUTALB/ACETAMINOPHEN/CAFFEINE 50-325-40MG TABLET 1 TAB PO (15:29)
[2024-08-28] MEDS: DEXAMETHASONE SOD PHOS 10 MG/ML VIAL IV (15:29)
[2024-08-28 15:30] LABS: Basophils Absolute Auto 0.1 10^3/uL (0.0-0.1); Basophils Percent Auto 0.4 % (0.2-2.0); Eosinophils Absolute Auto 0.4 10^3/uL (0.0-0.7); Eosinophils Percent Auto 2.7 % (0.9-7.0); Hematocrit 39.7 % (36.0-48.0); Hemoglobin 13.2 g/dL (12.0-16.0); Immature Granulocytes Abs Auto 0.03 10^3/uL (0.00-0.03); Immature Granulocytes Pct Auto 0.2 % (0.0-0.5); Lymphocytes Absolute Auto 1.6 10^3/uL (1.2-3.8); Lymphocytes Percent Auto 12.4 % (20.5-60.0); Mean Corpuscular HGB Conc 33.2 g/dL (29.9-35.2); Mean Corpuscular Hemoglobin 31.8 pg (26.7-34.0); Mean Corpuscular Volume 95.7 fL (81.0-99.0); Monocytes Percent Auto 7.4 % (1.7-12.0); Neutrophils Percent Auto 76.9 % (43.0-75.0); Platelet Count 328 10^3/uL (150-450); Red Blood Count 4.15 10^6/uL (4.20-5.40)
[2024-08-28 15:35] LABS: Anion Gap 10.7; BUN Creatinine Ratio 20.2; Chloride 105 mmol/L (98-107); Estimated GFR (African America 51 (>=60 mL/min/1.73m^2); Estimated GFR (Non-African Ame 42 (>=60 mL/min/1.73m^2); Glucose 114 mg/dL (74-106); Potassium 3.7 mmol/L (3.5-5.1); Sodium 145 mmol/L (136-145)
[2024-08-28 16:13] LABS: Bilirubin Urine NEGATIVE (NEGATIVE); Blood Urine NEGATIVE (NEGATIVE); Clarity Urine CLEAR (CLEAR); Color Urine LT. YELLOW (YELLOW); Glucose Urine UA NEGATIVE (NEGATIVE); Ketones Urine NEGATIVE (NEGATIVE); Leukocyte Esterase Urine NEGATIVE (NEGATIVE); Nitrite Urine NEGATIVE (NEGATIVE); Protein Urine NEGATIVE (NEG/TRACE); Specific Gravity Urine <=1.005 (1.005-1.025); Urine Microscopic Indicated NO; Urobilinogen Urine 0.2 EU/dL (0.2-1.0)
[2024-08-28 16:22] LABS: Internal Control Within Normal Limits; SARS-CoV-2 Ag NEGATIVE (NEGATIVE)
--- NOTE | 2024-08-28 17:00 | PC.NURSE ---
pt states the pain in her head has improved and she would like something to drink at this time.
--- NOTE | 2024-08-28 18:23 | PC.NURSE ---
pt ambulatory to restroom
== END 2024-08-28 20:54 | disposition home or self-care (01) ==
PROVIDERS: Nurse Practitioner Family; Emergency Provider Emergency Medicine; PCP Family Medicine
DX: R51.9 Headache, unspecified (principal); R05.9 Cough, unspecified; I10 Essential (primary) hypertension; R53.83 Other fatigue; R68.83 Chills (without fever); J44.9 Chronic obstructive pulmonary disease, unspecified
CPT/HCPCS: 36415; 70450; 71045; 80048; 81003; 85025; 87811; 93005; 96374; 99285; J1100

== ENCOUNTER 2024-08-31 06:38 | Emergency (ER) | payer MEDICARE, OTHER, SELFPAY ==
--- OUTSIDE RECORDS SUMMARY | 2024-04-22 05:40 | XMS_ITS ---
Author Organization [facility] Address [address] [place] [address] Care Team Providers Care [employer] Repairer Name Role Phone José Miguel Joseph Unavailable [phone] RiveraMiko galan Unavailable Unavailable Sophia Austin Unavailable [phone] Allergies Allergen (clinical drug ingredient) Drug/Non Drug Allergy documented on EMR Reaction Allergy Type Onset Date Status amoxicillin amoxicillin itching Drug Allergy Act bar morphine morphine swelling, itch Drug Allergy Ac tive Reason For Referral Reason NO AUTH REQ......... ............................NOT SCHEDULED..................................MCR/MMO MRI LEFT SHOULDER TO BE DONE AT [facility] Diagnosis 1 Tear of left rotator cuff, unspecified tear extent, unspecified whether traumatic (M75.102) Referral Organization [facility] Referring Provider First Name Jos éMiguel Referring Provider Last Name St Adhikari Referring Provider Speciality Orthopedic Surgery Referred Organization [facility] Outpatient Referred Address [address], [place],[address], Procedure 1 MRI Joint Upper Ext w/o Dye (40451) General Notes Farida Doyle 025 11:02:20 AM > MEDICARE PART A ACTIVE AND EFFECTIVE 10/04/14 AND PART B ACTIVE AND EFFECTIVE 11/04/14 PER [employer] WITH [employer] SECONDARY. NO AUTHORIZATION REQUIRED. FAXED TO [email or web address] Sara 04/25/2024 11:59:13 AM > order faxed Referral Priority Routine REASON FOR VISIT CERVICAL PAIN Social History Tobacco Use: Social History Observation Description Date Details (start date - stop date) Former Smoker NA - 06/14/2006 AUDIT-C (Standard) Question Answer Notes Did you have a drink containing alcohol in the p ast year? No Points 0 Interpretation Negative Tobacco Control (Standard) Question Answer Notes Tobacco use: Former smoker When did you stop smoking? 06/14/2006 How long has it been since you last smoked? 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) Active confirmed Problem 12841605 Other cervical disc degeneration, high cervical region (M50.31) Active confirmed Problem 39404201 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-C5 level (M50.321) Active confirmed Problem 00703581 Other cervical disc degeneration at C5-C6 level (M50.322) Active confirmed Problem 67210670 Other cervical disc degeneration at C6-C7 level (M50.323) Active confirmed Problem 01205987 Muscle weakness (M62.81) Active confirmed Encounters Encounter Location Date Provider Diagnosis [address] [place] [address] [place] [address] 04/22/2024 [facility] Other cervical disc degeneration, high cervical region M50.31 ; 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-C5 level M50.321 ; Other cervical disc degeneration at C5-C6 level M50.322 ; Other cervical disc degeneration at C6-C7 level M50.323 ; Cervical radiculopathy M54.12 ; Neuroforaminal stenosis of cervical spine M48.02 and Muscle weakness M62.81 Assessments Encounter Date Diagnosis (ICD Code) Assessment Notes Treatment Notes Treatment Clinical Notes Section Notes 04/22/2024 Other cervical disc degeneration, high cervical region (ICD-10 - M50.31) 1. C3-7 DDD/radiculo jose/neurof oraminal stenosis 2. Left rotator cuff weakness 04/22/2024 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-C5 level (ICD-10 - M50.321) 1. C3-7 DDD/radiculo jose/neurof oraminal stenosis 2. Left rotator cuff weakness 04/22/2024 Other cervical disc degeneration at C5-C6 level (ICD-10 - M50.322) 1. C3-7 DDD/radiculo jose/neurof oraminal stenosis 2. Left rotator cuff weakness 04/22/2024 Other cervical disc degeneration at C6-C7 level (ICD-10 - M50.323) 1. C3-7 DDD/radiculo jose/neurof oraminal stenosis 2. Left rotator cuff weakness 04/22/2024 Cervical radiculopathy (ICD-10 - M54.12) 1. C3-7 DDD/radiculo jose/neurof oraminal stenosis 2. Left rotator cuff weakness 04/22/2024 Neuroforaminal stenosis of cervical spine (ICD-10 - M48.02) 1. C3-7 DDD/radiculo jose/neurof oraminal stenosis 2. Left rotator cuff weakness 04/22/2024 Muscle weakness (ICD-10 - M62.81) 1. C3-7 DDD/radiculo jose/neurof oraminal stenosis 2. Left rotator cuff weakness 04/22/2024 Other Plan established by Dr. Caba. Patient evaluated by myself and Dr. Caba today. Dr. Caba reviewed patient's cervical MRI results with her and given her rotator cuff weakness with pain that started in the shoulder originally we have ordered an MRI of the left shoulder to evaluate for a rotator cuff tear. We will see the patient back in the office after imaging is obtained to review and offer further recommendations . The patient is very much in agreement with the treatment and/or diagnostic plan set forth and all questions were answered to the patient's satisfaction. Thanks once again. If we can be of further service to your patients with disorders of the spine, cervical, thoracic, or lumbar, please do not hesitate to contact Dr. Caba. Best regards, 1. C3-7 DDD/radiculo jose/neurof oraminal stenosis 2. Left rotator cuff weakness Plan Of Treatment Treatment Notes Assessment Notes Other Plan established by Dr. Caba. Patient evaluated by myself and Dr. Caba today. Dr. Caba reviewed patient's cervical MRI results with her and given her rotator cuff weakness with pain that started in the shoulder originally we have ordered an MRI of the left shoulder to evaluate for a rotator cuff tear. We will see the patient back in the office after imaging is obtained to review and offer further recommendations. The patient is very much in agreement with the treatment and/or diagnostic plan set forth and all questions were answered to the patient's satisfaction. Thanks once again. If we can be of further service to your patients with disorders of the spine, cervical, thoracic, or lumbar, please do not hesitate to contact Dr. Caba. Best regards, Pending Test Test Name Order Date Cervical spine 2 v FLEX, EXT - [id number] MRI Shoulder Left w/o Contrast Referrals Referral Date Details 04/22/2024 04/22/2024, NO AUTH REQ.....................................NOT SCHEDULED..................................[facility]/MMO MRI LEFT SHOULDER TO BE DONE AT [facility], [facility] [place], [address], Next Appt Details Follow Up: AFTER IMAGING, Re ason: Progress Notes * AKIRA BUITRAGO DDOB:[birth year] (73 yo F)Acc No.[id number]:04/22/2024 Patient: Oliverio BOWLINGAKIRA BOSCH Nany Provider: IGGY Elizabeth :1950 A ge:73 Y S ex:Female Date:04/22/2024 Address:[facility] 04[address]07 [facility] Subjective: * Chief Complaints: * C ERVICAL PAIN * HPI: G eneral Follow Up Information: Dictated by Sophia Austin PA-C Patient is a 73-year-old female presents with complaints of left shoulder, elbow, and sometimes wrist pain. She has had longstanding neck pain but given the radicular type symptoms in her left arm Dr. Burris, her PCP, referred her here for evaluation of possible cervical radiculopathy. She has been doing physical therapy since last week and using heat. She denies any balance issues or dexterity issues with this hand. She has been getting migraines. Her left arm has started bothering her about 2 to 3 years ago and describes the pain as muscle pains in the upper arm and in the elbow especially with lifting or sometimes just moving it. Changing positions will aggravate her arm pain. Patient is a former smoker. G eneral Info per Patient Report: Side affected is L eft. J oint or body part affected is?arm. D ate of Injury: m ore than a year. S tart of Pain/Cause of Injury l eft arm popped in muscle around 2-3 years ago. Arm started bothering me a year or more ago and hurts in the muscle area and in elbow when she lifts with it, sometimes even when just moving it.. P ain occurred i njury, suddenly. W ork related: N o. M otor vehicle accident: N o.?MVA N o. T hird libertarian responsibility: N o. W hat activities make your symptoms worse? c hanging positions. Q uality of pain is m ild, moderate. T ype of pain: b urning, aching, hurts in the muscle in left arm and down into elbow, sometimes runs down into the wrist. . H ave you been seen by a Dentist in the last year? N o. D o you have any dental problems? N o, but has dentures. W hat activities help the pain? H eat. * ROS: C onstitutional: Marked Fatigue Y es. E yes: Glasses/ Contacts Y es. G astrointestinal: Heartburn/Acid Stomach Y es. S kin: Swollen Ankles Y es. M usculoskeletal: Joint pain Y es. B ack Pain Y es. A dmits N guillermo Pain. R espiratory: Shortness of Breath Y es. G enitourinary: Urinate at Night More Than Once Y es. N eurological: Headaches/Migraines Y es. * Medical History: * Surgical History: N o Surgical History documented. * Family History: M other: diagnosed with Hypertension, Heart disease, Arthritis. S iblings: diagnosed with Diabetes, Cancer, Chronic mental illness, Alcoholism. F ather: diagnosed with Hypertension, Alcoholism. * Social History: W hat is your place of residence?: home . A SANDRA-C (Standard) D id you have a drink containing alcohol in the past year? N o, P oints 0 , I nterpretation N egative. T obacco Control (Standard) T obacco use: F ormer smoker, W hen did you stop smoking? 0 06/14/2006, H ow long has it been since you last smoked? G reater than 10 years.? * Medications: N one * Allergies: m orphine: swelling, itchamoxicillin: itchingno[Allergies Verified] Objective: * Vitals: * Examination: G eneral examination: O n examination, the patient is well-developed, well-nourished, well-groomed, alert and oriented x3, normal mood. Limited cervical ROM with left-sided rotation. Non tender over the cervical spine, left shoulder, left elbow. 5/5 muscle strength bilateral upper extremities, except left 4/5 deltoid and supraspinatus testing. Sensory intact upper extremities. Negative Hernandez and Spurling bilaterally. 2+ and symmetric deep tendon reflexes bilateral upper extremities. X -ray Imaging Studies: 2 view x-rays of the cervical spine flexion/extension were taken in office today and reviewed interpreted by myself as anterolisthesis of C2 on 3 that corrects in extension. No fracture noted. Degenerative disc disease most notable at C3-6. Three-view x-rays of the cervical spine AP/lateral and odontoid views were reviewed from the [facility] from 04/12/2024 that appear negative for fracture but with some anterolisthesis of L2 on 3. Degenerative disc disease most notable between C3-7. . M RI Imaging Studies: M RI cervical spine without contrast was reviewed from the [facility] from 04/18/2024 C2-3 early degenerative disc disease is present without focal protrusion or neural impingement. C3-4 moderate to severe dissipates narrowing and disc desiccation. Endplate sclerosis. Disc/osteophyte complex. Facet osteophyte arthropathy. No central canal stenosis. Mild bilateral foraminal stenosis. C4-5 moderate disc space narrowing and disc desiccation with endplate sclerosis. Moderate disc/osteophyte complex and facet osteoarthropathy. There is moderate narrowing of the central canal down to 6.8 mm axial image #14. Moderate right and severe left foraminal stenosis. C5-6 disc collapse with endplate sclerosis. Disc/osteophyte complex. Minimal central canal stenosis measuring 9.1 mm. Mild bilateral foraminal stenosis. C6/7 moderate to severe disc space narrowing and disc desiccation with endplate sclerosis. Moderate Disc/osteophyte complex and facet osteoarthropathy. Central canal stenosis measuring 8 mm. Severe right and moderate left foraminal stenosis. C7-T1 early degenerative disc disease is present without focal protrusion or neural impingement. . Assessment: * Assessment: 1. O ther cervical disc degeneration, high cervical region - M50.31 (Primary) 2 . O ther cervical disc degeneration at C4-C5 level - M50.321 3 . O ther cervical disc degeneration at C5-C6 level - M50.322 4 . O ther cervical disc degeneration at C6-C7 level - M50.323 5 . C ervical radiculopathy - M54.12 ?6. N euroforaminal stenosis of cervical spine - M48.02 7 . M uscle weakness - M62.81 1. C3-7 DDD/radiculopathy/ne uroforaminal stenosis 2. Left rotator cuff weakness Plan: * Treatment: * Procedure Codes: * Preventive Medicine: Well Visit: P reventive Screenings D EXA performed 0 07/23/2023. * Follow Up: A [facility] Forms: * Images: * Sign off status: Completed true * Provider: IGGY Elizabeth Date: 0 04/22/2024 Generated for Annie moss/Dustin/Tayoitting on: 0 08/31/2024 06:42 AM EDT History and Physical Notes * HPI (History of Present Illness) Category Sub-Category Detail Notes Category Not es General Follow Up Information Dictated by Sophia Austin PA-C Patient is a 73-year-old female presents with complaints of left shoulder, elbow, and sometimes wrist pain. She has had longstanding neck pain but given the radicular type symptoms in her left arm Dr. Burris, her PCP, referred her here for evaluation of possible cervical radiculopathy. She has been doing physical therapy since last week and using heat. She denies any balance issues or dexterity issues with this hand. She has been getting migraines. Her left arm has started bothering her about 2 to 3 years ago and describes the pain as muscle pains in the upper arm and in the elbow especially with lifting or sometimes just moving it. Changing positions will aggravate her arm pain. Patient is a former smoker. General Info per Patient Report Side affected is Left Joint or body part affected is arm Pain occurred injury, suddenly Work related: No Motor vehicle accident: No Quality of pain is mild, moderate Type of pain: burning, aching, nini ts in the muscle in left arm and down into elbow, sometimes runs down into the wrist. Date of Injury: more than a year Start of Pain/Cause of Injury left arm p opped in muscle around 2-3 years ago. Arm started bothering me a year or more ago and hurts in the muscle area and in elbow when she lifts with it, sometimes even when just moving it. Third libertarian responsibility: No What activities make your symptoms worse ? changing positions Have you been seen by a [place] ist in the last year? No Do you have any dental problems? No, but has dentures What activities help the pain? Heat MVA No Examination Category Sub-Category Detail Notes Category Not es General examination On exami nation, the patient is well-developed, well-nourished, well-groomed, alert and oriented x3, normal mood. Limited cervical ROM with left-sided rotation. Non tender over the cervical spine, left shoulder, left elbow. 5/5 muscle strength bilateral upper extremities, except left 4/5 deltoid and supraspinatus testing. Sensory intact upper extremities. Negative Hernandez and Spurling bilaterally. 2+ and symmetric deep tendon reflexes bilateral upper extremities. X-ray Imaging Studies 2 view x-rays of the cervical spine flexion/extension were taken in office today and reviewed interpreted by myself as anterolisthesis of C2 on 3 that corrects in extension. No fracture noted. Degenerative disc disease most notable at C3-6. Three-view x-rays of the cervical spine AP/lateral and odontoid views were reviewed from the [facility] from 04/12/2024 that appear negative for fracture but with some anterolisthesis of L2 on 3. Degenerative disc disease most notable between C3-7. MRI Imaging Studies MRI cervical spine without contrast was reviewed from the [facility] from 04/18/2024 C2-3 early degenerative disc disease is present without focal protrusion or neural impingement. C3-4 moderate to severe dissipates narrowing and disc desiccation. Endplate sclerosis. Disc/osteophyte complex. Facet osteophyte arthropathy. No central canal stenosis. Mild bilateral foraminal stenosis. C4-5 moderate disc space narrowing and disc desiccation with endplate sclerosis. Moderate disc/osteophyte complex and facet osteoarthropathy. There is moderate narrowing of the central canal down to 6.8 mm axial image #14. Moderate right and severe left foraminal stenosis. C5-6 disc collapse with endplate sclerosis. Disc/osteophyte complex. Minimal central canal stenosis measuring 9.1 mm. Mild bilateral foraminal stenosis. C6/7 moderate to severe disc space narrowing and disc desiccation with endplate sclerosis. Moderate Disc/osteophyte complex and facet osteoarthropathy. Central canal stenosis measuring 8 mm. Severe right and moderate left foraminal stenosis. C7-T1 early degenerative disc disease is present without focal protrusion or neural impingement. Consultation Request Notes Referral Date Referring Provider Referred Provider Not kailee 04/22/2024 José Miguel Joseph , NO AUTH REQ............................... ......NOT SCHEDULED......................... .........[facility]/MMO MRI LEFT SHOULDER TO BE DONE AT [facility]
--- OUTSIDE RECORDS SUMMARY | 2024-05-13 04:00 | XMS_ITS ---
Author Organization [facility] Address [address] [place] [address] Care Team Providers Care Supervisor Functional Testing Name Role Phone José Miguel Joseph Unavailable [phone] Miko Burris Unavailable Unavailable [facility] Unavailable [phone] Allergies Allergen (clinical drug ingredient) Drug/Non Drug Allergy documented on EMR Reaction Allergy Type Onset Date Status amoxicillin amoxicillin itching Drug Allergy Act bar morphine morphine swelling, itch Drug Allergy Ac tive REASON FOR VISIT MRI review of Left Shoulder Social History Tobacco Use: Social History Observation [...] Problem Status W/U Status Risk Notes Problem [id number] Cervical spinal stenosis (M48.02) Active confirmed Problem 767965966 Complete tear of left rotator cuff, unspecified whether traumatic (M75.122) Active confirmed Encounters Encounter Location Date Provider Diagnosis [facility] [facility] [address] [facility] [place] [address] [place] [address] 05/13/2024 [facility] Other cervical disc degeneration, high cervical region M50.31 ; Complete tear of left rotator cuff, unspecified whether traumatic M75.122 ; 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-C5 level M50.321 ; Other cervical disc degeneration at C5-C6 level M50.322 ; Other cervical disc degeneration at C6-C7 level M50.323 ; Cervical spinal stenosis M48.02 and Cervical radiculopathy M54.12 Assessments Encounter Date Diagnosis (ICD Code) Assessment Notes Treatment Notes Treatment Clinical Notes Section Notes 05/13/2024 Other cervical disc degeneration, high cervical region (ICD-10 - M50.31) 1. Left rotator cuff tear 2. C3-7 DDD/radiculo jose/neurof oraminal stenosis 05/13/2024 Complete tear of left rotator cuff, unspecified whether traumatic (ICD-10 - M75.122) 1. Left rotator cuff tear 2. C3-7 DDD/radiculo jose/neurof oraminal stenosis 05/13/2024 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-C5 level (ICD-10 - M50.321) 1. Left rotator cuff tear 2. C3-7 DDD/radiculo jose/neurof oraminal stenosis 05/13/2024 Other cervical disc degeneration at C5-C6 level (ICD-10 - M50.322) 1. Left rotator cuff tear 2. C3-7 DDD/radiculo jose/neurof oraminal stenosis 05/13/2024 Other cervical disc degeneration at C6-C7 level (ICD-10 - M50.323) 1. Left rotator cuff tear 2. C3-7 DDD/radiculo jose/neurof oraminal stenosis 05/13/2024 Cervical spinal stenosis (ICD-10 - M48.02) 1. Left rotator cuff tear 2. C3-7 DDD/radiculo jose/neurof oraminal stenosis 05/13/2024 Cervical radiculopathy (ICD-10 - M54.12) 1. Left rotator cuff tear 2. C3-7 DDD/radiculo jose/neurof oraminal stenosis 05/13/2024 Other Plan established by Dr. Caba. At this time, Dr. Caba discussed MRI results with the patient. Patient would like to continue with conservative care. She can follow-up with us on an as-needed basis. If she is interested in surgical intervention we could have her follow-up with Dr. Meng. The patient is very much in agreement with the treatment and/or diagnostic plan set forth and all questions were answered to the patient's satisfaction. Thanks once again. If we can be of further service to your patients with disorders of the spine, cervical, thoracic, or lumbar, please do not hesitate to contact Dr. Caba. Best regards, 1. Left rotator cuff tear 2. C3-7 DDD/radiculo jose/neurof oraminal stenosis Plan Of Treatment Treatment Notes Assessment Notes Other Plan established by Dr. Caba. At this time, Dr. Caba discussed MRI results with the patient. Patient would like to continue with conservative care. She can follow-up with us on an as-needed basis. If she is interested in surgical intervention we could have her follow-up with Dr. Meng. The patient is very much in agreement with the treatment and/or diagnostic plan set forth and all questions were answered to the patient's satisfaction. Thanks once again. If we can be of further service to your patients with disorders of the spine, cervical, thoracic, or lumbar, please do not hesitate to contact Dr. Caba. Best regards, Next Appt Details Follow Up: prn, Reason: Progress Notes * BUITRAGOAKIRA BOSCH DDOB:[birth year] (73 yo F)Acc No.[id number]:05/13/2024 Patient: AKIRA BRAGG Provider: IGGY Elizabeth :1950 A ge:73 Y S ex:Female Date:05/13/2024 Address:[facility] [address] [id number] Subjective: * Chief Complaints: * M RI review of Left Shoulder * HPI: G eneral Follow Up Information: Dictated by Sophia Austin PA-C The patient returns to the office a few weeks since their last appointment. At that time, she was complaining of neck pain and pain in her left shoulder/elbow. Her pain had started in the left shoulder about 2 to 3 years ago. We had reviewed the cervical MRI she already had but recommended a MRI of her left shoulder to evaluate for rotator cuff tear. The patient returns to the office today to discuss results. Patient denies bowel or bladder incontinence or urinary retention. * ROS: M usculoskeletal: Admits N guillermo Pain. G enitourinary: Denies I ncontinence. * Medical History: * Surgical History: N o Surgical History documented. * Family History: M other: diagnosed with Arthritis, Heart disease, Hypertension. S iblings: diagnosed with Diabetes, Cancer, Chronic [...] well-groomed, alert and oriented x3, normal mood. Exam largely unchanged. M RI Imaging Studies: M RI left shoulder without contrast was reviewed from the [facility] from 05/06/2024 Impression complete tear of the superior rotator cuff with 2.4 cm retraction. High riding humeral head contacting undersurface of acromion process and likely contributing to suspected superior rotator cuff tear. Moderate degenerative changes of acromioclavicular joints which likely contributed to rotator cuff injury. Assessment: * Assessment: 1. C omplete tear of left rotator cuff, unspecified whether traumatic - M75.122 (Primary) ? 2 . O ther cervical disc degeneration, high cervical region - M50.31 3 . O ther cervical disc degeneration at C4-C5 level - M50.321 4 . O ther cervical disc degeneration at C5-C6 level - M50.322 5 . O ther cervical disc degeneration at C6-C7 level - M50.323 6 . C ervical spinal stenosis - M48.02 ? 7 . C ervical radiculopathy - M54.12 1. Left rotator cuff tear 2. C3-7 DDD/radiculopathy/neuroforaminal stenosis Plan: * Treatment: * Procedure Codes: * Preventive Medicine: MIPS Measures: C MS139 Fall Risk S creening: N o falls in the past year.? Screenings: F all Risk Screening F all Risk Assessment: N o falls in the past year. JASON Screening: F ALLS: Screening for Future Fall Risk H ave you had two or more falls in the past year? N o, H ave you had any falls with injury in the past year? N o.? * Follow Up: p rn Forms: * Images: * Sign off status: Completed true * Provider: IGGY Elizabeth Date: 0 05/13/2024 Generated for Petri isa/Dustin/Tayoitting on: 0 08/31/2024 06:43 AM EDT History and Physical Notes * HPI (History of Present Illness) Category Sub-Category Detail Notes Category Not es General Follow Up Information Dictated by Sophia Austin PA-C The patient returns to the office a few weeks since their last appointment. At that time, she was complaining of neck pain and pain in her left shoulder/elbow. Her pain had started in the left shoulder about 2 to 3 years ago. We had reviewed the cervical MRI she already had but recommended a MRI of her left shoulder to evaluate for rotator cuff tear. The patient returns to the office today to discuss results. Patient denies bowel or bladder incontinence or urinary retention. Examination Category Sub-Category Detail Notes Category Not es General examination On exami nation, the patient is well-developed, well-nourished, well-groomed, alert and oriented x3, normal mood. Exam largely unchanged. MRI Imaging Studies MRI left shoulder without contrast was reviewed from the [facility] from 05/06/2024 Impression complete tear of the superior rotator cuff with 2.4 cm retraction. High riding humeral head contacting undersurface of acromion process and likely contributing to suspected superior rotator cuff tear. Moderate degenerative changes of acromioclavicular joints which likely contributed to rotator cuff injury.
--- OUTSIDE RECORDS SUMMARY | 2024-06-20 12:02 | XMS_ITS ---
Author Organization [facility] in [place] Address [address] [place] [address] Care Team Providers Care Build And Deployment Engineer Name Role Phone Cornelio Burris Primary Care Provider [phone] REASON FOR VISIT Nebulizer Medications Medication SIG (Take, Route, Frequency, Duration) Notes Start Date End Date Status Nebulizer/Tubing/Mouthpiec e - as directed for 365 days 06/20/2024 Act bar Encounters Encounter Location Date Provider Diagnosis [facility] [address] [place] [address] 06/20/2024 Cornelio Burris Plan Of Treatment Medication Medication Name Sig Start Date Stop Date Notes Nebulizer/Tubing/Mouthpiece - as directed for 365 days Next Appt Details Provider Name:Cornelio Burris, 09:30:00 AM, [address] [place], [address], Provider Name:Cornelio Burris, 08:30:00 AM, [address] [place] [address], [address], Progress Notes * Adrianna BUITRAGO DDOB:[birth year] (73 yo F)Acc No.[id number]:06/20/2024 Patient: Oliverio Adrianna SILVERIO :1950 A ge:73 Y S ex:Female Address:[address] [place] [address] * Refills Start Nebulizer/Tubing/Mouthpiece Kit, -, 1 Each, as directed, 365 days, Refills=0 * true * Date: Generated for Annie moss/Dustin/Nicolas on: 0 08/31/2024 06:44 AM EDT
--- OUTSIDE RECORDS SUMMARY | 2024-08-12 11:13 | XMS_ITS ---
Author Organization [facility] in [place] Address [address] [place] [address] Care Team Providers Care Interactive Media Marketing Strategist Name Role Phone RiveraCornelio galan Primary Care Provider REASON FOR VISIT rf Budesonide and Azelastine Medications Medication SIG (Take, Route, Frequency, Duration) Notes Start Date End Date Status Azelastine HCl 137 MCG/SPRAY 2 sprays in each nostril Nasally Once a day for 90 days Active Budesonide 1 MG/2ML 1 mL Inhalation Once a day for 30 days Dx: COPD and Asthma Active Encounters Encounter Location Date Provider Diagnosis [address] [address] 08/12/2024 Cornelio Burris Asthma J45.909 Assessments Encounter [...] days Next Appt Details Provider Name:Cornelio Sobia Burris, 09:30:00 AM, [address] [place], [address], Provider Name:Cornelio Ramsay [place], 08:30:00 AM, [address] [place] [address], [address], Progress Notes * Adrianna PERALTA DDOB:[birth year] (73 yo F)Acc No.[id number]:08/12/2024 Patient: Adrianna BRAGG :1950 A ge:73 Y S ex:Female Address:[facility] [address] [place] [address] * Refills Refill Azelastine HCl Solution, 137 MCG/SPRAY, Nasally, 3, 2 sprays in each nostril, Once a day, 90 days, Refills=3 Refill Budesonide Suspension, 1 MG/2ML, Inhalation, 30 ML, 1 mL, Once a day, 30 days, Refills=11 * true * Date: Generated for Annie moss/Dustin/Tayoitting on: 0 08/31/2024 06:43 AM EDT
--- OUTSIDE RECORDS SUMMARY | 2024-08-31 05:30 | XMS_ITS ---
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 Role Phone Cornelio Burris Primary Care Provider REASON FOR VISIT ER F/U Encounters Encounter Location Date Provider Diagnosis [facility] [address] [place] [facility] [place] [address] 08/31/2024 Cornelio Burris Plan Of Treatment Next Appt Details Provider Name:Cornelio Ramsay [place], 09:30:00 AM, [address] [facility], [facility], [place], [address], Provider Name:Cornelio Ramsay [place], 08:30:00 AM, [address], [facility], [place], [address], Progress Notes * Adrianna BUITRAGO DDOB:[birth year] (73 yo F)Acc No.[id number]:08/31/2024 UNLOCKED PROGRESS NOTE Progress Note Patient: Oliverio TAWNYAHIROAdrianna [facility] Suzi :1950 A ge:73 Y S ex:Female Date:08/31/2024 Address:Replaced by [facility] [address] [facility] Subjective: * Chief Complaints: * 1 . ER F/U. * Medical History: Objective: * Vitals: Assessment: Plan: * Treatment: * * Electronic signature of Cornelio Burris MD, [phone] on 08/31/2024 at 06:43 AM EDT Sign off status: Pending Visit Status: P EN (Pending) * Provider: Nany Burris ([facility])MD Date: 08/31/2024 Generated for Annie moss/Dustin/Nicolas on: 0 08/31/2024 06:43 AM EDT
[2024-08-31 06:41] VITALS: BP 132/83; PULSE 99; TEMP 36.9; O2SAT 99; BMI 22.8
--- OUTSIDE RECORDS SUMMARY | 2024-08-31 06:43 | XMS_ITS | Patient Health Record ---
Author Organization [facility] in [place] Address [address] [place] [address] Care Team Providers Care Operation Shift Supervisor Name Role Phone Cornelio Burris Primary Care Provider JENNY BURRIS Unavailable [phone] Lucía Nath Unavailable [phone] Allergies Allergen (clinical drug ingredient) Drug/Non Drug Allergy documented on EMR Reaction Allergy Type Onset Date Status amoxicillin Amoxicillin itching Drug Allergy Act bar morphine Morphine itching and swelling Drug Allergy Active Results Component Value Reference Range Notes MR shoulder LT wo con Reviewed date:05/09/2024 07:49:36 PM Interpretation: Performing Lab: Notes/Report: Source Facility: [place] [id number] Magnetic Resonance Report Signed Patient: ADRIANNA BUITRAGO MR#: [id number] : 1950 Acct:[id number] Age/Sex: 73 / F ADM Date: 05/06/24 Loc: MRI Attending Dr: Sophia PARKINSON Ordering Physician: Sophia Malik Date of Service: 05/06/24 Procedure(s): MR shoulder LT wo con Accession Number(s): [id number] cc: Jenny Burris M.D.; Sophia Malik [place] [id number] Patient Name: ADRIANNA BUITRAGO MRN: [facility]:[id number] date: 1950 Sex: F Assigned Patient Location: MRI Current Patient Location: Accession/Order Number: [id number] Exam Date: 05/06/2024 07:48 Report Date: 05/09/2024 [...] Signed By: 05/09/24 1049 DD/ 1046 TD/TT: Literacy Tutor: [place] [address] Magnetic Resonance Report Signed Patient: LALI BUITRAGO ADDY Ayon MR#: [id number] : 1950 Acct:[id number] Age/Sex: 73 / F ADM Date: 05/06/24 Loc: MRI Attending Dr: Paola Nichole Ordering Physician: Sophia Malik Date of Service: 05/06/24 Procedure(s): MR larry menendez LT wo con Accession Number(s): [id number] cc: Jenny Burris M.D. ; Sophia Malik [place] [id number] Patient Name: ADRIANNA BUITRAGO MRN: [id number] date: 1950 Sex: F Assigned Patient Location: MRI Current Patient Location: Accession/Order Numb er: [id number] Exam Date: 05/06/2024 07:48 Report Date: 05/09/2024 10:46 At the request of: SOPHIA MALIK Procedure: MR jey kelly LT wo con EXAMINATION: MR sarah beth josue LT wo con HISTORY: Tear Left Rotator [...] o visible tear or attrition. POSTERIOR: No education administrative assistant ior labrum abnormality. CAPSULE No visible capsular laxity or thickening. AC JOINT REGION AC JOINT: Moderate osteoarthropathy with mild-moderate narrowing of the underlying coracoacr omial arch. AC LIGAMENTS: Normal acromioclavicular ligament. CC [...] Signed By: 05/09/24 1049 DD/ 1046 TD/TT: Literacy Tutor: CBC AUTO DIFF Reviewed date:08/29/2024 03:23:47 PM Interpretation: Performing Lab: Notes/Report: [facility] , White Blood Count 13.0 4.0-11.0 10 3/uL Red Blood Count 4.15 4.20-5.40 10 6/uL Hemoglobin 13.2 12.0-16.0 g/dL Hematocrit 39.7 36.0-48.0 % Mean Corpuscular Volume 95.7 81.0-99.0 fL Mean Corpuscular Hemoglobin 31.8 26.7-34.0 pg Mean Corpuscular HGB Conc 33.2 29.9-35.2 g/dL Red Cell Distribution Width 14.0 11.0-15.0 % Platelet Count 328 150-450 10 3/uL Mean Platelet Volume 11.0 9.5-13.5 fL Neutrophils Percent Auto 76.9 43.0-75.0 % Lymphocytes Percent Auto 12.4 20.5-60.0 % Monocytes Percent Auto 7.4 1.7-12.0 % Eosinophils Percent Auto 2.7 0.9-7.0 % Basophils Percent Auto 0.4 0.2-2.0 % Immature Granulocytes Pct Auto 0.2 0.0-0.5 % Neutrophils Absolute Auto 10.0 1.4-6.5 10 3/uL Lymphocytes Absolute Auto 1.6 1.2-3.8 10 3/uL Monocytes Absolute Auto 1.0 0.3-0.8 10 3/uL Eosinophils Absolute Auto 0.4 0.0-0.7 10 3/uL Basophils Absolute Auto 0.1 0.0-0.1 10 3/uL Immature Granulocytes Abs Auto 0.03 0.00-0.03 10 3/uL Performing Lab: see note ML - [facility] PROF CHEM 8 (BAS METB) Reviewed date:08/29/2024 03:23:47 PM Interpretation: Performing Lab: Notes/Report: [facility] , Sodium 145 136-145 mmol/L Potassium 3.7 3.5-5.1 mmol/L Chloride 105 98-107 mmol/L Carbon Dioxide 33.0 21.0-32.0 mmol/L Anion Gap 10.7 Glucose 114 74-106 mg/dL Blood Urea Nitrogen 25.0 7.0-18.0 mg/dL Creatinine 1.24 0.55-1.02 mg/dL Estimated GFR ( Coleen 51 >=60 mL/min/1.73m 2 Estimated GFR (Non- Ngoc 42 >=60 mL/min/1.73m 2 BUN Creatinine Ratio 20.2 Calcium 10.0 8.5-10.1 mg/dL Performing Lab: see note ML - [facility] UA (CLEAN or CATCH) MICROSCO PIC IF INDICATE Reviewed date:08/29/2024 03:23:47 PM Interpretation: Performing Lab: Notes/Report: [facility] , Color Urine LT. YELLOW YELLOW Clarity Urine CLEAR CLEAR Specific [place] Urine <=1.005 1.005-1.025 pH Urine 6.0 5.0-9.0 Protein Urine NEGATIVE NEG/TRACE mg/dL Glucose Urine UA NEGATIVE NEGATIVE mg/dL Bilirubin Urine NEGATIVE NEGATIVE Ketones Urine NEGATIVE NEGATIVE mg/dL Blood Urine NEGATIVE NEGATIVE Nitrite Urine NEGATIVE NEGATIVE Urobilinogen Urine 0.2 0.2-1.0 EU/dL Leukocyte Esterase Urine NEGATIVE NEGATIVE Urine Microscopic Indicated NO Performing Lab: see note ML - [facility] SARS-CoV-2 Ag* Reviewed date:08/29/2024 03:23:47 PM Interpretation: Performing Lab: Notes/Report: [facility] , SARS-CoV-2 Ag NEGATIVE NEGATIVE This test has not been FDA cleared [...] is terminated or authorization is revoked sooner. Performing Lab: see note ML - [facility] LB ECG 12 lead Reviewed date:08/29/2024 03:23:47 PM Interpretation: Performing Lab: Notes/Report: Source Facility: [place] [address] [place] [address] Electrocardiograph Report Signed Patient: ADRIANNA BUITRAGO MR#: [id number] : 1950 Acct:[id number] Age/Sex: 73 / F ADM Date: 08/28/24 Loc: ER Attending Dr: Ordering Physician: Kenya Clinton Date of Service: 08/28/24 Procedure(s): ECG 12 lead Accession Number(s): [id number] cc: [facility] Test Date: 2024-08-28 Pat Name: ADRIANNA BUITRAGO Department: Room: - Gender: Female Residential Program Coordinator: : 1950 Requested By: [id number] Order Number: [id number] Reading MD: HOMER STEVENS M.D. Measurements Intervals [place] Rate: 64 P: 65 TX: 118 QRS: 79 QRSD: 84 T: 72 QT: 376 QTc: 386 Interpretive Statements 1100 Sinus rhythm 2210 Short [place] interval 9150 abnormal ECG Compared to ECG 06/23/2023 15:46:53 Short [place] interval now present Electronically Signed On 08-29-2024 7:53:00 EDT by HOMER STEVENS M.D. Dictated By: HOMER STEVENS Signed By: 08/29/24 0753 DD/ 1521 TD/TT: Literacy Tutor: [place] [address] Electrocardiograph Report Signed Patient: LALI BUITRAGO MR#: [id number] : 1950 Acct:[id number] Age/Sex: 73 / F ADM Date: 08/28/24 Loc: ER Attending Dr: Ordering Physician: Kenya Clinton Date of Service: 08/28/24 Procedure(s): ECG 12 lead Accession Number(s): [id number] cc: [facility] Test Date: 2024-08-28 Pat Name: ADRIANNA BOSCH Department: 05 Room: - Gender: Female Residential Program Coordinator: : 1950 Requ ested By: 1813 Order Number: [id number] Reading MD: HOMER STEVENS M.D. Measurements Intervals [place] Rate: 64 P: 65 TX: 118 QRS: 79 QRSD: 84 T: 72 QT: 376 QTc: 386 Interpretive Statements 1100 Sinus rhythm 2210 Short TX interval 9150 abnormal ECG Compared to ECG 06/23/2023 15:46:53 Short [place] interval no w present Electronically Patricia d On 08-29-2024 7:53:00 EDT by HOMER STEVENS M.D. Dictated By: HOMER STEVENS Signed By: 08/29/24 0753 DD/ 1521 TD/TT: Literacy Tutor: XR cervical spine 2-3V Reviewed date:04/24/2024 01:37:34 PM Interpretation: Performing Lab: Notes/Report: Source Facility: [facility] [place] [address] [place] [address] XRay Report Signed Patient: ADRIANNA BUITRAGO MR#: [id number] : 1950 Acct:[id number] Age/Sex: 73 / F ADM Date: 04/22/24 Loc: EC Attending Dr: Krystyna Caba M.D. Ordering Physician: Krystyna Caba M.D. Date of Service: 04/22/24 Procedure(s): XR cervical spine 2-3V Accession Number(s): [id number] cc: Jenny Burris M.D.; Krystyna Caba M.D. [place] [id number] Patient Name: ADRIANNA BUITRAGO MRN: [id number] date: 1950 Sex: F Assigned Patient Location: Current Patient Location: Accession/Order Number: [id number] Exam Date: 04/22/2024 10:05 Report Date: 04/24/2024 [...] M.D. Signed By: 04/24/2448 DD/ 4 TD/TT: Literacy Tutor: [place] [address] XRay Report Signed Patient: LALI BUITRAGO MR#: [id number] : 1950 Acct:[id number] Age/Sex: 73 / F ADM Date: 04/22/24 Loc: EC Attending Dr: Krystyna Caba M.D. Ordering Physician: Krystyna Caba M.D. Date of Service: 04/22/24 Procedure(s): XR cer vical spine 2-3V Accession Number(s): [id number] cc: Jenny Burris M.D. ; Krystyna Caba M.D. [place] [address] Patient Name: ADRIANNA BUITRAGO MRN: [facility]:[id number] date: 1950 Sex: F Assigned Patient Location: Current Patient Loca tion: EC Accession/Order Numb er: [id number] Exam Date: 04/22/2024 10:05 Report Date: 04/24/2024 [...] 2 mm. Alignment at this level with exte nsion is normal. The alignment of the remainder [...] MAIK HERNANDEZ Date: 04/24/2024 09:45 Dictated By: Nany Hernandez M.D. Signed By: 04/24/2448 DD/ 4 TD/TT: Literacy Tutor: MR cervical spine wo con Reviewed date:04/18/2024 01:16:08 PM Interpretation: Performing Lab: Notes/Report: Source Facility: [place] [address] [place] [address] Magnetic Resonance Report Signed Patient: ADRIANNA BUITRAGO MR#: [id number] : 1950 Acct:[id number] Age/Sex: 73 / F ADM Date: 04/18/24 Loc: MRI Attending Dr: Jenny Burris M.D. Ordering Physician: Jenny Burris M.D. Date of Service: 04/18/24 Procedure(s): MR cervical spine wo con Accession Number(s): [id number] cc: Jenny Burris M.D. [place] [address] Patient Name: ADRIANNA BUITRAGO MRN: [id number] date: 1950 Sex: F Assigned Patient Location: MRI Current Patient Location: MRI Accession/Order Number: [id number] Exam Date: 04/18/2024 07:50 Report Date: 04/18/2024 [...] Tessa Esteves M.D. Signed By: 04/18/2448 DD/ 5 TD/TT: Literacy Tutor: [place] [address] Magnetic Resonance Report Signed Patient: LALI BUITRAGO MR#: [id number] : 1950 Acct:[id number] Age/Sex: 73 / F ADM Date: 04/18/24 Loc: MRI Attending Dr: Dontae Burris M.D. Ordering Physician: Jenny Burris M.D. Date of Service: 04/18/24 Procedure(s): MR cer vical spine wo con Accession Number(s): [id number] cc: Jenny Burris M.D. [place] [address] Patient Name: ADRIANNA BUITRAGO MRN: [id number] date: 1950 Sex: F Assigned Patient Location: MRI Current Patient Loca tion: MRI Accession/Order Numb er: [id number] Exam Date: 04/18/2024 07:50 Report Date: 04/18/2024 [...] signal intensity. CERVICAL DISC LEVELS: C2-C3: Early degener ative disc disease is present without focal protrusion or neural impingement. C3-C4: Moderate to s evere disc space narrowing and disc desiccation. Endplate sclerosis. Disc/osteophyte complex. Facet osteophyte arthropathy. No central canal stenosis. Mild bilateral foraminal stenosis C4-C5: Moderate disc space narrowing and disc desiccation with endplate sclerosis. Moderate disc/osteophyte complex and facet osteoarthropathy. There is moderate narrowin g of the central canal down to 6.8 mm axial image #14. Moderate right and s evere left foraminal stenosis C5-C6: Disc collapse with endplate sclerosis. Disc/osteophyte complex. minimal central canal stenos is measuring 9.1 mm. Mild bilateral foraminal stenosis C6-C7: Moderate to s evere disc space narrowing and disc desiccation with endplate sclerosis. Moderate disc/osteophyte complex and facet osteoarthropathy. Ce ntral canal stenosis measuring 8 mm. Severe right and moderate left forami nal stenosis C7-T1:. Early degenerative disc disease is present without focal protrusion or neural impingement. M R/MR cervical spine wo con IMPRESSION: Degenerative changes resulting in central and foraminal stenosis at multiple levels detailed above Electronically authenticated by: TESSA ESTEVES Date: 04/18/2024 08:46 Dictated By: Nany Esteves M.D. Signed By: 04/18/24 0848 DD/ 0846 TD/TT: Literacy Tutor: PROF LAVONNE Espitia ([facility]) Reviewed date:01/14/2024 10:18:20 AM Interpretation: Performing Lab: Notes/Report: [facility] , Sodium 138 136-145 mmol/L Potassium 4.4 [...] Performing Lab: see note ML - [facility] LB CREATININE Reviewed date:01/11/2024 09:54:46 AM Interpretation: Performing Lab: Notes/Report: [facility] , Creatinine 1.42 0.55-1.02 mg/dL Estimated GFR ( Cole[place] 44 >=60 mL/min/1.73m 2 Estimated GFR (Non- Ngoc 36 >=60 mL/min/1.73m 2 Performing Lab: see note ML - [facility] LB CALCIUM Reviewed date:01/11/2024 09:54:46 AM Interpretation: Performing Lab: Notes/Report: [facility] , Calcium 10.2 8.5-10.1 mg/dL Performing Lab: see note ML - [facility] LB TSH Reviewed date:11/26/2023 07:25:30 PM Interpretation: Performing Lab: Notes/Report: [facility] , Thyroid Stimulating Hormone 1.573 0.358-3.740 uIU/mL Performing Lab: see note ML - [facility] LB T4 Reviewed date:11/26/2023 07:25:30 PM Interpretation: Performing Lab: Notes/Report: [facility] , T4 Thyroxine 8.80 4.80-13.90 ug/dL Performing Lab: see note ML - [facility] LB PROF 14(COMP METB) Reviewed date:11/26/2023 07:25:30 PM Interpretation: Performing Lab: Notes/Report: [facility] , Sodium 143 136-145 mmol/L Potassium 3.7 [...] 1.2 Performing Lab: see note ML - [facility] LIPID PROFILE Reviewed date:11/26/2023 07:25:30 PM Interpretation: Performing Lab: Notes/Report: [facility] , Triglycerides 56 <=150 mg/dL Cholesterol 173 <=200 mg/dL HDL Cholesterol 75 40-60 mg/dL > or =60 mg/dl - LOW CARDIOVASCULAR RISK <40 mg/dl - HIGH CARDIOVASCULAR RISK LDL Cholesterol Calculated 87.0 <100 mg/dl OPTIMAL 100-129 mg/dl NEAR OR ABOVE OPTIMAL 130-159 mg/dl BORDERLINE HIGH 160-189 mg/dl HIGH >190 mg/dl VERY HIGH VLDL CHOLESTEROL 11.2 Chol HDL Ratio 2.3 3.3 - 4.4 LOW RISK 4.4 - 7.1 AVERAGE RISK 7.1 - 11.0 MODERATE RISK >11.0 HIGH RISK Performing Lab: see note ML - [facility] IRON Reviewed date:11/26/2023 07:25:30 PM Interpretation: Performing Lab: Notes/Report: [facility] , Iron 70.0 50.0-170.0 ug/dL Performing Lab: see note ML - [facility] LB GLYCOHEMOGLOBIN A1C Reviewed date:11/26/2023 07:25:30 PM Interpretation: Performing Lab: Notes/Report: [facility] , Glycohemoglobin A1C 4.8 4.5-6.2 % ADA RECOMMENDED LIMIT 4.0 - 6.0 ADA THERAPEUTIC TARGET < 7.0 ACTION SUGGESTED > 7.0 Estimated Average Glucose 91 Performing Lab: see note ML - [facility] FREE T3 Reviewed date:11/26/2023 07:25:30 PM Interpretation: Performing Lab: Notes/Report: [facility] , Free T3 2.82 2.18-3.98 pg/mL Performing Lab: see note ML - [facility] LB CBC AUTO DIFF Reviewed date:11/26/2023 07:25:30 PM Interpretation: Performing Lab: Notes/Report: [facility] , White Blood Count 7.1 4.0-11.0 10 [...] Performing Lab: see note ML - [facility] LB PROF CHEM 8 (BAS METB) Reviewed date:01/11/2024 08:06:02 PM Interpretation: Performing Lab: Notes/Report: [facility] , Sodium 139 136-145 mmol/L Potassium 3.3 [...] Performing Lab: see note ML - [facility] LB XR cervical spine 2-3V Reviewed date:04/13/2024 06:55:56 PM Interpretation: Performing Lab: Notes/Report: Source Facility: [place] [address] XRay Report Signed Patient: ADRIANNA BUITRAGO MR#: [id number] : 1950 Acct:[id number] Age/Sex: 73 / F ADM Date: 04/12/24 Loc: LAB Attending Dr: Jenny Burris M.D. Ordering Physician: Jenny Burris M.D. Date of Service: 04/12/24 Procedure(s): XR cervical spine 2-3V Accession Number(s): [id number] cc: Jenny Burris M.D. [place] [address] Patient Name: ADRIANNA BUITRAGO MRN: [id number] date: 1950 Sex: F Assigned Patient Location: LAB Current Patient Location: PT Accession/Order Number: [id number] Exam Date: 04/12/2024 09:40 Report Date: 04/12/2024 [...] Lung apices are clear. Electronically authenticated by: CODY TOVAR Date: 04/12/2024 22:11 Dictated By: Cody Tovar M.D. Signed By: 04/12/242213 DD/ 10 TD/TT: Literacy Tutor: [address] [address] XRay Report Signed Patient: LALI BUITRAGO MR#: [id number] : 1950 Acct:[id number] Age/Sex: 73 / F ADM Date: 04/12/24 Loc: LAB Attending Dr: Dontae Burris M.D. Ordering Physician: Jenny Burris M.D. Date of Service: 04/12/24 Procedure(s): XR cer vical spine 2-3V Accession Number(s): [id number] cc: Jenny Burris M.D. [place] [id number] Patient Name: ADRIANNA BUITRAGO MRN: [id number] date: 1950 Sex: F Assigned Patient Location: LAB Current Patient Loca tion: PT Accession/Order Numb er: [id number] Exam Date: 04/12/2024 09:40 Report Date: 04/12/2024 [...] Lung apices are clear. Electronically authenticated by: CODY TOVAR Date: 04/12/2024 22:11 Dictated By: Bentley Tovar M.D. Signed By: 04/12/242213 DD/ 10 TD/TT: Literacy Tutor: PROF LAVONNE Espitia ([facility]) Reviewed date:04/12/2024 12:35:00 PM Interpretation: Performing Lab: Notes/Report: [facility] , Sodium 142 136-145 mmol/L Potassium [...] Performing Lab: see note ML - [facility] LB COVID-19, Flu A+B IH Reviewed date:01/11/2024 09:54:46 AM Interpretation: Performing Lab: Notes/Report: COVID Neg FLU A neg FLU B neg Control present CREATININE Reviewed date:07/13/2024 12:41:17 PM Interpretation: Performing Lab: Notes/Report: [facility] , Creatinine 1.22 0.55-1.02 mg/dL Estimated GFR ( Cole[place] 52 >=60 mL/min/1.73m 2 Estimated GFR (Non- Ngoc 43 >=60 mL/min/1.73m 2 Performing Lab: see note ML - [facility] LB CALCIUM Reviewed date:07/13/2024 12:41:17 PM Interpretation: Performing Lab: Notes/Report: [facility] , Calcium 9.7 8.5-10.1 mg/dL Performing Lab: see note ML - [facility] LB MM tomosynthesis screening B I Reviewed date:01/31/2024 10:37:30 PM Interpretation: Performing Lab: Notes/Report: Source Facility: [facility] [place] [address] [place] [address] Mammography Report Signed Patient: ADRIANNA BUITRAGO MR#: [id number] : 1950 Acct:[id number] Age/Sex: 73 / F ADM Date: 01/29/24 Loc: MAMMO Attending Dr: Jenny Burris M.D. Ordering Physician: Jenny Burris M.D. Results: Date of Service: 01/29/24 Follow Up: Procedure(s): MM tomosynthesis screening BI Accession Number(s): [id number] cc: Jenny Burris M.D. Patient Name: ADRIANNA BUITRAGO MR#: [id number] : 1950 Exam Date: 01/29/2024 Ordering Doctor: [...] 60. LOCATION: [facility] BREAST COMPOSITION: There are scattered areas [...] M.D. Signed By: 01/31/241947 DD/ 46 TD/TT: Literacy Tutor: [place] [address] Mammography Report Signed Patient: LALI BUITRAGO MR#: [id number] : 1950 Acct:[id number] Age/Sex: 73 / F ADM Date: 01/29/24 Loc: MAMMO Attending Dr: Dontae Burris M.D. Ordering Physician: Jenny Burris M.D. Results: Date of Service: Follow Up: Procedure(s): MM tomosynthesis screening BI Accession Number(s): [id number] cc: Jenny Burris M.D. Patient Name: ADRIANNA BUITRAGO MR#: [id number] : 1950 Exam Date: 01/29/2024 Ordering Doctor: DR Jenny Burris . RADIOLOGY REPORT PROCEDURE: MM TOMOSYNTHESIS SCREENING BI COMPARISON: MM TOMOSYNTHESIS SCREENING BI, 01/23/2023. MG MAMM SCREEN 3D NOEL CAD, 01/22/2022. MG MAMM NOEL SCRN W CAD DIG, 11/09/2012. INDICATIONS: Screening Calculator Name NCI Breast Cancer Risk Assessment Tool 5 Year Breast Cancer Risk 1.40% Lifetime Breast Canc er Risk 3.20% Personal Breast Cancer No Personal Ovarian Can cer No Treatments None Family Cancers Sist er with ovarian cancer at age 53; Brother with pancreatic cancer at age 43; Uncle-maternal with bone cancer at age 60; Aunt-maternal with a ll over cancer at age 60; Uncle-maternal with lung cancer at age 60. LOCATION: [facility] BREAST COMPOSITION: There are scattered areas of fibroglandular density. FINDINGS: DIAGNOSTIC CATEGORY 2--BENIGN FINDING: RIGHT BREAST: No significant suspicious finding. No significant change has occurred. LEFT BREAST: No significant suspicious finding. Stable upper outer quadrant asymmetric fibroglan dular tissue. No significant change has occurred. RECOMMENDATIONS: [...] M.D. Signed By: 01/31/241947 DD/ 46 TD/TT: Literacy Tutor: Reason For Referral Diagnosis 1 Cervical radiculopat hy (M54.12) Referral Organization [facility] Referring Provider First Name Cornelio Referring Provider Last Name [place] Referring Provider Speciality [facility] icine Referred Provider [facility], Physical Therap y Referred Provider Specialty Physical Med icine and Rehabilitation Referral Priority Routine Diagnosis 1 Cervical radiculopat hy (M54.12) Referral Organization [facility] Referring Provider First Name Cornelio Referring Provider Last Name [place] Referring Provider Speciality [facility] icine Referred Provider Krystyna Joseph Referred Provider [...] a day for 90 days Active Ipratropium [place] 0.02 % 2.5 mL as needed Inhalation [...] Unknown 01/11/2022 Administered SARS-COV-2 COVID-19, mRNA, L PRODUCT MARKETING SPECIALIST-S, PF, 50 mcg/0.5 mL Unknown 02/04/2023 Administered [...] Status Risk Notes Problem Low back pain (693066604) Low back pain (724.5) Active confirmed Problem 953784745 Migraine without aura, not intractable, without status migrainosus (G43.009) Active confirmed Problem 92466803 Age-related osteoporosis without current pathological fracture (M81.0) Active confirmed Problem 902801022 Neoplasm of unce rtain behavior, 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 Problem 097030563 Mild intermitten t asthma, uncomplicated (J45.20) Active confirmed Problem Shortness of breath (387553805) Shortness of breath (R06.02) Active confirmed Problem Mitral regurgitation (09423300) Mitral regurgitation (I34.0) Active confirmed Problem Hypertension (38485447) Hypertension (I10) Active confirmed Problem Asthma (870830407) Asthma (J45.909) Active conf irmed Problem Gastroesophageal reflux disease (804990784) GERD (gastroesophageal reflux disease) (K21.9) Active confirmed Problem Cervical radiculopathy (40554478) Cervical radiculopathy (M54.12) Active confirmed Problem Hypothyroidism (29382980) Hypothyroidism (E03.9) Active confirmed Problem Edema (24764530) Edema (R60.9) Active confirmed Problem Venous insufficiency of leg (disorder) (640391025) Venous insufficiency (I87.2) Active confirmed Problem Osteopenia (793444720) Osteopenia (M85.80) Active confirmed Problem Degenerative arthritis (205982226) Degenerative arthritis (M19.90) Active confirmed Problem Lumbar radiculopathy (734509123) Lumbar radiculopathy (M54.16) Active confirmed Problem Acute sinusitis (54266281) Acute sinusitis (J01.90) Active confirmed Problem Allergic rhinitis (29235896) Allergic rhinitis (J30.9) Active confirmed Problem Cervical disc diseas e (047639259) Cervical disc disease (M50.90) Active confirmed Problem Migraine with aura (6472897) Migraine with aura (G43.109) Active confirmed Problem Osteoarthritis of hi p (520078424) 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) Active confirmed Problem Acute bronchiolitis (4151005) Acute bronchiolitis (J21.9) Active confirmed Problem Heart murmur (87239080) Cardiac murmur (R01.1) Active confirmed Problem 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) Active confirmed Problem Degeneration of lumbar intervertebral disc (57989813) 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) Active confirmed Problem Hypercholesterolemia (27053005) Hypercholesterolemia (E78.00) Active confirmed Problem Age-related cataract (91620709) Senile cataract of left eye, unspecified age-related cataract type (H25.9) Active confirmed Problem COVID-19 (509781687) COVID-19 (U07.1) Active co nfirmed Vital Signs Heart Rate 61 /min 01/06/2024 Temperature 97.9 degrees Fahrenheit 01/06/2024 Oximetry 99 % 01/06/2024 Blood pressure diastolic 80 mm Hg 05/26/2024 Height 63 in 05/26/2024 Blood pressure systolic 128 mm Hg 05/26/2024 Weight 128.6 lbs 05/26/2024 BMI 22.78 kg/m2 05/26/2024 Encounters Encounter Location Date Provider Diagnosis [address] [address] 11/05/2023 Cornelio Hoy Acute bronchitis, unspecified organism J20.[address] [address] 05/26/2024 Cornelio Hoy Hypertension I10 ; G ERD (gastroesophageal reflux disease) K21.9 ; Hypothyroidism E03.9 and Cervical radiculopathy M54.[address] [address] 01/06/2024 Cornelio Hoy Acute bronchiolitis J21.[address] [address] 04/12/2024 Cornelio Hoy Degenerative arthrit is M19.90 ; Cervical disc disease M50.90 ; Cervical radiculopathy M54.12 and Edema R60.[address] [address] 11/26/2023 Cornelio Hoy Hypertension I10 ; G ERD (gastroesophageal reflux disease) K21.9 ; Hypothyroidism E03.9 ; Lumbar radiculopathy M54.16 ; Hypercholesterolemia E78.00 and Asthma J45.[address] [address] 09/15/2023 JENNY HOY Allergic rhinitis J3 0.9 and Acute sinusitis J01.[address] [address] 09/22/2023 JENNY HOY Asthma J45.[address] [place] [address] 11/26/2023 Cornelio Dayton [facility] [address] [facility] [place] [address] 12/15/2023 Cornelio Burris [facility] [address] [facility] [place] [address] 01/11/2024 Cornelio Hoy Creatinine elevation R79.89 [facility] [address] [facility] [place] [address] 01/11/2024 Cornelio Hoy Creatinine elevation R79.89 [facility] [address] [facility] [place] [address] 01/14/2024 Cornelio Dayton [facility] [address] [facility] [place] [address] 01/15/2024 Cornelio Burris [facility] [address] [facility] [place] [address] 01/31/2024 Lucía Nath [facility] [address] [facility] [place] [address] 02/11/2024 Cornelio Dayton [facility] [address] [facility] [place] [address] 04/08/2024 Cornelio Dayton [facility] [address] [facility] [place] [address] 04/12/2024 Cornelio Dayton [facility] [address] [facility] [place] [address] 04/13/2024 Cornelio Hoy Cervical radiculopat hy M54.12 [facility] [address] [facility] [place] [address] 04/18/2024 Cornelio Hoy Cervical radiculopat hy M54.12 [facility] [address] [facility] [place] [address] 04/22/2024 Cornelio Burris [facility] [address] [facility] [place] [address] 04/25/2024 Cornelio Burris [facility] [address] [facility] [place] [address] 04/26/2024 Cornelio angelia [facility] [address] [place] [facility] [place] [address] 04/28/2024 Cornelio Burris [facility] [address] [place] [facility] [place] [address] 05/02/2024 Cornelio angelia [facility] [address] [place] [facility] [place] [address] 05/09/2024 Cornelio angelia [facility] [address] [place] [facility] [place] [address] 05/12/2024 Cornelio angelia [facility] [address] [place] [facility] [place] [address] 06/20/2024 Cornelio angelia [facility] [address] [place] [facility] [address] 08/12/2024 Cornelio Burris Asthma J45.909 Assessments Encounter [...] vaporizer to help keep the drainage moist. Efpe-jdg-dgazbdm Nasal Saline may help the stuffy and runny nose. Use Ibuprofen and or Tylenol as needed for fever, chills, body aches or pain. Children 5 years old should not be given slgq-vtj-csqjvao cough and cold medications such as guaifenesin and dextromethorphan. If you're over age 5, you may try arls-svf-kpbvucu cold medications such as guaifenesin and dextromethorphan, [...] Name Order Date CMP (COMPLETE METABOLIC PANEL) 08/30/202 3 CMP (COMPLETE METABOLIC PANEL) 4 HEMOGLOBIN A1C (GLYCO) 12/03/2022 HEMOGLOBIN A1C (GLYCO) 11/26/2023 IRON, TOTAL 11/26/2023 IRON, TOTAL 12/03/2022 LIPID PANEL (CHOL/TRIG/HDL/LDL) 12/04/19 23 LIPID PANEL (CHOL/TRIG/HDL/LDL) 11/26/19 24 CBC WITH DIFF 11/26/2023 CBC WITH DIFF 12/03/2022 VITAMIN D, 25 LEVEL (TOTAL) 12/03/2022 MRI Cervical Spine w/o contrast * 2024 Basic Metabolic Panel (8) 01/11/2024 THYROID PROFILE WITH TSH 12/05/2022 MG MAMM SCREEN 3D NOEL CAD 12/25/2022 MRI CSPINE WO CON 04/12/2024 XR DEXA BONE DENSITY 07/23/2023 THYROID PANEL (T4/TSH/FREE T3) 3 THYROID PANEL (T4/TSH/FREE T3) 4 Next Appt Details Provider Name:Cornelio Burris, 09:30:00 AM, [address] [place], [address], Provider Name:Cornelio Burris, 08:30:00 AM, [address] [place], [address], Insurance Providers Payer Name Payer Address Payer Phone Subscriber Number Group Number Insured Name Patient Relationship to Insured Coverage Start Date Coverage End Date MEDICARE [place] [address] [phone] [id number] Adrianna Buitrago Self - patient is the insured MMO MEDICARE SUPPLEMENT [address] [place] [address] [id number] Adrianna Buitrago Self - patient is the [...]
--- OUTSIDE RECORDS SUMMARY | 2024-08-31 06:43 | XMS_ITS | Patient Health Record ---
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 ............................NOT SCHEDULED..................................MCR/MMO MRI LEFT SHOULDER TO BE DONE AT [facility] Diagnosis 1 Tear of left rotator cuff, unspecified tear extent, unspecified whether traumatic (M75.102) Referral Organization [facility] Referring Provider First Name Fayearchie Referring Provider Last Name St Adhikari Referring Provider Speciality Orthopedic Surgery Referred Organization [facility] Referred Address [address] [place], [place],[address], Procedure 1 MRI Joint Upper Ext w/o Dye ([id number]) General Notes Farida Doyle 025 11:02:20 AM [...] Problem Status W/U Status Risk Notes Problem [id number] Cervical radiculopathy (M54.12) Active confirmed Problem 01578746 Cervical spinal stenosis (M48.02) Active confirmed Problem 04043403 Muscle weakness (M62.81) Active confirmed Problem 68185918 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-C5 level (M50.321) Active confirmed Problem 68965348 Other cervical disc degeneration at C5-C6 level (M50.322) Active confirmed Problem 02985756 Other cervical disc degeneration at C6-C7 level (M50.323) Active confirmed Problem 57851461 Other cervical disc degeneration, high cervical region (M50.31) Active confirmed Problem 506531850 Complete tear of left rotator cuff, unspecified whether traumatic (M75.122) Active confirmed Problem [id number] 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) Active confirmed Encounters Encounter Location Date Provider Diagnosis [facility] [place] [address] 04/22/2024 [facility] Other cervical disc degeneration, high cervical region M50.31 ; 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-C5 level M50.321 ; Other cervical disc degeneration at C5-C6 level M50.322 ; Other cervical disc degeneration at C6-C7 level M50.323 ; Cervical radiculopathy M54.12 ; Neuroforaminal stenosis of cervical spine M48.02 and Muscle weakness M62.81 [facility] [employer] [place] [address] 05/13/2024 [facility] Other cervical disc degeneration, high cervical region [...] Cervical spine 2 v FLEX, EXT - 17460 MRI Shoulder Left w/o Contrast 5 Insurance Providers Payer Name Payer Address Payer Phone Subscriber Number Group Number Insured Name Patient Relationship to Insured Coverage Start Date Coverage End Date [place] [address] [id number] AKIRA PERALTA Self - patient is the insured Medical [facility] [address] [place] [phone] [id number] AKIRA PERALTA Self - patient is the insured Medical (General) History Medical History History ICD Code Hypertension Heart murmur Asthma Bronchitis Thyroid disease GERD: Osteoporosis Osteoarthritis
--- OUTSIDE RECORDS SUMMARY | 2024-08-31 06:43 | XMS_ITS | CCD ---
Demographics Address [address] [place] [address] Home Phone Mobile Phone Preferred Language en Marital Status Latter-Day Affiliation Unknown Race White Ethnic Group Not or Lati no Author Organization [facility] Team Providers Care Patch Washer Name Role Phone HOY ., DR ALVARADO [...] MOHAMAD Attending Unavailable ALGHOTHANI, MOHAMAD Consulting Unavailable DELGADO ., DR ALVARADO Primary Care Unavailable ALGHOTHANI, [...] Unavailable Jenny Burris MD Primary Care Provider [phone] NILIssa Palomino Attending Unavailable Issa VALE R Attending Unavailable RENNY ORLANDO A Attending Unavailable CIRO ORLANDOOLAS A Attending Unavailable RAMBASEK, KEILA E Attending Unavailable HEMANT ORLANDOS A Attending Unavailable RAMBASEK, KEILA Roseline Attending Unavailable RENNY ORLANDO Attending Unavailable SANDEEP PLEITEZ Attending Unavailable DARION, RENNY A Attending Unavailable BROWN, RENNY A Attending Unavailable BROWN, RENNY A Attending Unavailable BROWN, RENNY A Attending Unavailable DARION RENNY A Attending Unavailable RAMBASEK, KEILA E Attending Unavailable Jenny Burris MD Primary Care Provider [phone] Allergies Allergy Classification Reported Allergen(s) Allergy Type Date of Onset Reaction(s) Facility (2 sources) Amoxicillin; Translations: [AMOXICILLIN] Drug Allergy 3 [facility] Repository (3 sources) Morphine; Translations: [MORPHINE] Drug Allergy 3 [facility] Repository (20 sources) Amoxicillin Drug Allergy 3 Itching, Other, Unknown [facility] (20 sources) Mold Extract Drug Allergy 4 Unknown [facility] (20 sources) Morphine Drug Allergy 3 Itching, Other [facility] (1 source) Penicillin; Translations: [penicillin] Drug Allergy [facility] Repository (1 source) No Known Medication Allergies; Translations: [No Known Medication Allergies] Propensity to adverse reactions (disorder) [facility] Medications Current Medications Medication Drug Class(es) [...] mg/ml inhalation suspension (20 sources) Corticosteroid Start: 08-15-2024 take 1 dose by mouth at bedtime budesonide (Pulmicort) 1 MG/2ML nebulizer solution Indications: Mild intermittent asthma without complication (CMS/HCC) INHALE THE CONTENTS OF 1 VIAL VIA NEBULIZER IN THE MORNING AND AT BEDTIME, RINSE MOUTH WITH WATER AFTER TO USE TO REDUCE AFTERTASTE AND INCIDENCE OF CANDIDIASIS. DO NOT SWALLOW 180 mL 3 08/15/2024 Active Start: 01-05-2023 End: 07-20-2024 take 2 mL [...] take 1 puff(s) by inhalation once daily Dkockqk-Uuajcugrlml-Fcqanyukci (Breztri Aerosphere) 160-9-4.8 MCG/ACT aerosol Inhale 1 puff Daily Active 168 hr cloNIDine 0.87919 mg/hr transdermal system (20 sources) Central alpha-2 [...] [ACUTE BRONCHITIS UNSPECIFIED] Onset: 11-01-2021 Episodic Asthma (3 sources) IgE-mediated allergic asthma; Translations: [Mild intermittent [...] Onset: 07-02-2022 Chronic Other connective tissue disease (12 sources) Pain in right foot; Translations: [Pain in right foot] 01-10-2024 Episodic Other connective tissue disease (12 sources) Pain in left foot; Translations: [Pain [...] Translations: [Valve Disorder] Onset: 05-14-2022 Viral infection (12 sources) Verruca plantaris; Translations: [Plantar wart] 01-10-2024 [...] Range Facility Outside Colonoscopyon 2023 Outside Colonoscopy [id number] 50 [id number]#[id number] 0TIFF [facility] Reminderson 08-07-2023 Reminders - From: Kandi Cesar LPN To: Vicente - Clinical; Sent: 08/07/2023 07:59:01 EDT Show up: 07/06/2033 07:59:00 EDT Subject: colonoscopy recall Due Date/Time: 08/04/2033 07:00:00 EDT Reminder/Recall If patient is in good health, she is due for screening colonoscopy 08/04/2033. [facility] Consent for Procedure/Surger yon 06-10-2023 Consent for Procedure/Surgery [id number] 0TIFF [facility] Ambulatory Visit Summaryon 0 06-09-2023 Ambulatory [...] oral tablet) fluticasone nasal (Flonase 0.05 mg/inh [place]) furosemide (Lasix 20 mg Tab) lactulose (lactulose [...] Unchanged fluticasone nasal (Flonase 0.05 mg/ inh [place]) 2 Sprays Nasal Inhalation Every day Contact [...] for choosing us for your care. Normal [facility] Physician Referralon 024 Physician Referral [id number] 20 [id number] 0TIFF [facility] Office Visiton 04-10-2023 Follow-up visit [id number] BuitragoShirley ly D 1950 F Date Provider Department Center 04/10/2023 [facility] family history on file Level of Service:69490 [place] OFFICE/OUTPATIENT ESTABLISHED LOW MDM 20 MIN Normal [facility] Office Visiton 11-25-2022 Follow-up visit [id number] Shirley Buitrago ly D 1950 F Date Provider Department Center 11/25/2022 120-TEGAN PAIZ [facility] No family history on file Level of Service:27239 [place] OFFICE/OUTPATIENT ESTABLISHED MOD MDM 30-39 MIN Normal [facility] CALCIUMon 07-02-2022 Calcium [Mass/Vol] 9.8 mg/dL Normal 8.5-10.1 [facility] Comment on above: Performed By: #### C JEISON Marie #### [facility] [address] [address] [address] Zuly Medina CREATININEon 07-02-2022 Creatinine [Mass/Vol] 1.41 mg/dL Critically high 0.55-1.02 [facility] Comment on above: Performed By: #### C A, CREA #### [facility] [address] [address] [address] Zuly Medina EGFR-AF SAMMARINESE 44 mL/min/1.73m2 Critically low >=60 [facility] Comment on above: Performed By: #### C A, CREA #### [facility] [address] [address] [address] Zuly Medina EGFR-NON AF SAMMARINESE 37 mL/min/1.73m2 Critically low >=60 [facility] Comment on above: Performed By: #### C A, CREA #### [facility] [address] [place] [address] Dr. Zuly Medina MRI LSPINE WO CONon [...] TESSA ESTEVES Date: 2022-06-02 07:58 Normal [facility] VC VENOUS REFLUX NOEL LMTon 0 05-30-2022 VC VENOUS REFLUX NOEL LMT Patient: ADRIANNA BUITRAGO Exam Date: 05/30/2022 : 1950 Gender:F Ordering : DR JENNY BURRIS . Admission #: [id number] Family : Order #: [id number] CLICK HERE TO VIEW EXAM RADIOLOGY REPORT [...] thrombus. Compressibility: Normal. Flow: Deep venous reflux. Temp Recruiter: Tech Note: Proximal medial lower leg varicose [...] Esteves MD on 05/30/2022 at 11:20 Normal [facility] STRESS/REST MULTIon 05-26 SC STRESS/REST MULTI Patient: ADRIANNA BUITRAGODexter Exam Date: 05/26/2022 : 1950 Gender:F Ordering : MELO JENKINS Admission #: [id number] Family : DR JENNY BURRIS . Order #: [id number] CLICK HERE TO VIEW EXAM RADIOLOGY REPORT PROCEDURE: RADIONUCLIDE IMAGING STRESS/REST MULTI COMPARISON: SC STRESS/REST MULTI, 06/17/2017. INDICATIONS: Chest pain TECHNIQUE: [...] Garcia M.D. on 05/27/2022 at 13:00 Normal [facility] XR LSPINE MIN 4 VIEWSon 05-07 XR [...] WEI GARCIA Date: 2022-05-23 14:32 Normal [facility] Covid-19 PCR (CVDTBH)on 05-07 SARS-CoV-2 (COVID-19) RNA [...] for this test is supported by the [place] of Health and Human Service's (HHS's) declaration [...] VDTB #### [facility] [address] [place] [address] Dr. Zuly Medina INFLUENZA A AND B [facility] 05-22 [facility] SEE BELOW Normal [facility] Comment on above: Result Comment: Nega tive for Flu A protein angiten. Infection due to Flu A cannot be ruled out. Flu A angiten in the sample may be below the detection limit of the test. Performed By: #### I NFLUAB #### [facility] [address] [place] [address] Dr. [facility]uly [facility] BEL[facility] Normal [facility] Comment on above: Result Comment: Nega tive for Flu B protein antigen. Infection due to Flu B cannot be ruled out. Flu B antigen in the sample may be below the detection limit of the test. Performed By: #### I NFLUAB #### [facility] [address] [place] [address] Dr. Zuly Medina INFLUENZA A AG Negative Normal NEGATIVE SEE COMMENT [facility] Comment on above: Performed By: #### I NFLUAB #### [facility] [address] [place] [address] Dr. Zuly Medina INFLUENZA B AG Negative Normal NEGATIVE SEE COMMENT [facility] Comment on above: Performed By: #### I NFLUAB #### [facility] [address] [place] [address] Dr. Zuly Medina ECHOCARDIO M/2D COMPLETEon 0 05-14-2022 ECHOCARDIO M/2D COMPLETE Patient: ADRIANNA BUITRAGO Exam Date: 05/14/2022 : 1950 Gender:F Ordering : MELO JENKINS Admission #: [id number] Family : DR JENNY BURRIS . Order #: [id number] CLICK HERE TO VIEW EXAM ECHOCARDIOGRAM REPORT [...] Garcia M.D. on 05/15/2022 at 18:51 Normal [facility] Office Visiton 05-14-2022 Follow-up visit [id number] Shirley Buitrago 1950 F Date Provider Department Center 05/14/2022 3848-MELO JENKINS [facility] No family history on file Level of Service:69576 [place] OFFICE/OUTPATIENT ESTABLISHED MOD MDM 30-39 MIN Reason for Visit and Comments: Hyperlipidemia [182] Valve Disorder [3372] Normal [facility] MG MAMM SCREEN 3D NOEL CADon 01-22-2022 MG MAMM SCREEN 3D NOEL CAD Patient: BUITRAGOADRIANNA Exam Date: 01/22/2022 : 1950 Gender:F Ordering : DR JENNY BURRIS . Admission #: [id number] Family : Order #: [id number] CLICK HERE TO VIEW EXAM RADIOLOGY REPORT [...] M.D. on 01/22/2022 at 14:36 Normal [facility] CALCIUMon 12-31-2021 Calcium [Mass/Vol] 10.0 mg/dL Normal 8.5-10.1 [facility] Comment on above: Performed By: #### CHIDI MCDANIEL #### [facility] [address] [address] [address] Zuly Medina CREATININEon 12-31-2021 Creatinine [Mass/Vol] 1.33 mg/dL Critically high 0.55-1.02 [facility] Comment on above: Performed By: #### CHIDI MCDANIEL #### [facility] [address] [address] [address] Zuly Medina EGFR-AF SAMMARINESE 48 mL/min/1.73m2 Critically low >=60 [facility] Comment on above: Performed By: #### CHIDI MCDANIEL #### [facility] [address] [address] [address] Zuly Medina EGFR-NON AF SAMMARINESE 39 mL/min/1.73m2 Critically low >=60 [facility] Comment on above: Performed By: #### CHIDI MCDANIEL #### [facility] [address] [place] [address] Dr. Zuly Medina [facility]-06 SARS-CoV-2 (COVID-19) RNA MARY+probe Ql [...] for this test is supported by the [place] of Health and Human Service's (HHS's) declaration [...] VDTB #### [facility] [address] [place] [address] Dr. Zuly Medina T4, T3U, FTI LABCORPon 11-15 Free Thyroxine Index 2.7 Normal 1.2-4.9 [facility] Comment on above: Performed By: #### C VDTBH #### [facility] [address] [place] [address] Dr. Zuly Medina T3 Uptake 32 % Normal 24-39 [facility] Comment on above: Performed By: #### C VDTBH #### [facility] [address] [place] [address] Dr. Zuly Medina T4 [Mass/Vol] 8.5 ug/dL Normal 4.5-12.0 [facility] Comment on above: Performed By: #### C VDTBH #### [facility] [address] [place] [address] Dr. Zuly Medina VIT D 25-OH LABCORPon 2021 Vitamin D, 25-Hydroxy 114.0 ng/mL Critically high 30.0-100.0 [facility] Comment on above: Result Comment: Jenny min D deficiency has been defined by the [place] of Medicine and an Endocrine Society practice guideline as a level of serum 25-OH vitamin D less than 20 ng/mL (1,2). The Endocrine Society went on to further define vitamin D insufficiency as a level between 21 and 29 ng/mL (2). 1. IOM ([place] of Medicine). 2010. Dietary reference intakes for calcium and D. Steve [place]: The National Academies Press. 2. Anel MF, Chandrika [place], Ronaldo MCCALLUM, et al. Evaluation, treatment, and prevention of vitamin D deficiency: an Endocrine Society clinical practice guideline. JCEM. 2010; 96(7):1911-30. Performed By: #### V ITADLC #### [facility] [address] [place] [address] Dr. Zuly Medina CBC AUTO DIFFon 11-14-2021 BASO # 0.0 103/ul Normal 0.0-0.1 [facility] Comment on above: Performed By: #### CHIDI MCDANIEL #### [facility] [address] [place] [address] Dr. Zuly Medina Basophils/100 WBC (Bld) 0.4 % Normal 0.2-2.0 [facility] Comment on above: Performed By: #### CHIDI MCDANIEL #### [facility] [address] [place] [address] Dr. Zuly Medina EO # 0.3 103/ul Normal 0.0-0.7 [facility] Comment on above: Performed By: #### CHIDI MCDANIEL #### [facility] [address] [place] [address] Dr. Zuly Medina Eosinophils/100 WBC (Bld) 4.1 % Normal 0.9-7.0 [facility] Comment on above: Performed By: #### CHIDI MCDANIEL #### [facility] [address] [place] [address] Dr. Zuly Medina Erythrocyte distribution width (RBC) [Ratio] 14.1 % Normal 11.0-15.0 [facility] Comment on above: Performed By: #### CHIDI MCDANIEL #### [facility] [address] [place] [address] Dr. Zuly Medina Hematocrit (Bld) [Volume fraction] 36.0 % Normal 36.0-48.0 [facility] Comment on above: Performed By: #### Oliverio SIMS, [place] #### [facility] [address] [place] [address] Dr. Zuly Medina Hemoglobin (Bld) [Mass/Vol] 11.6 g/dL Critically low 12.0-16.0 [facility] Comment on above: Performed By: #### Oliverio SIMS, [place] #### [facility] [address] [place] [address] Dr. Zuly Medina IG # 0.01 10e3/ul Normal 0.00-0.03 [facility] Comment on above: Performed By: #### Oliverio SIMS, [place] #### [facility] [address] [place] [address] Dr. Zuly Medina IG % 0.1 % Normal 0.0-0.5 [facility] Comment on above: Performed By: #### Oliverio SIMS, [place] #### [facility] [address] [place] [address] Dr. Zuly Medina LYMPH # 1.3 103/ul Normal 1.2-3.8 [facility] Comment on above: Performed By: #### Oliverio SIMS, [place] #### [facility] [address] [place] [address] Dr. Zuly Medina Lymphocytes/100 WBC (Bld) 19.3 % Critically low 20.5-60.0 [facility] Comment on above: Performed By: #### Oliverio SIMS, [place] #### [facility] [address] [place] [address] Dr. Zuly Medina MANUAL DIFF REQ NO Normal [facility] Comment on above: Performed By: #### Oliverio SIMS, [place] #### [facility] [address] [place] [address] Dr. Zuly Medina MCH (RBC) [Entitic mass] 31.4 pg Normal 26.7-34.0 [facility] Comment on above: Performed By: #### Oliverio SIMS, [place] #### [facility] [address] [address] [address] Zuly Medina MCHC (RBC) [Mass/Vol] 32.2 g/dL Normal 29.9-35.2 [facility] Comment on above: Performed By: #### C BETHANY, [place] #### [facility] [address] [address] [address] Zuly Medina MCV (RBC) [Entitic vol] 97.6 fL Normal 81.0-99.0 [facility] Comment on above: Performed By: #### C BETHANY, [place] #### [facility] [address] [place] [address] Dr. Zuly Medina MONO # 0.8 103/ul Normal 0.3-0.8 [facility] Comment on above: Performed By: #### C BETHANY, [place] #### [facility] [address] [place] [address] Dr. Zuly Medina Monocytes/100 WBC (Bld) 11.8 % Normal 1.7-12.0 [facility] Comment on above: Performed By: #### Oliverio SIMS, [place] #### [facility] [address] [place] [address] Dr. Zuly Medina NEUT # 4.4 103/ul Normal 1.4-6.5 [facility] Comment on above: Performed By: #### Oliverio SIMS, [place] #### [facility] [address] [place] [address] Dr. Zuly Medina Neutrophils/100 WBC (Bld) 64.3 % Normal 43.0-75.0 [facility] Comment on above: Performed By: #### C BETH[place], [place] #### [facility] [address] [address] [address] Zuly Medina Platelet mean volume (Bld) [Entitic vol] 10.1 fL Normal 9.5-13.5 [facility] Comment on above: Performed By: #### Oliverio SIMS, [place] #### [facility] [address] [address] [address] Zuly Medina PLT 311 103/ul Normal 150-450 [facility] Comment on above: Performed By: #### C BETHANY CA #### [facility] [address] [address] [address] Zuly Medina RBC 3.69 106/ul Critically low 4.20-5.40 [facility] Comment on above: Performed By: #### C BETHANY CA #### [facility] [address] [address] [address] Zuly Medina WBC 6.9 103/ul Normal 4.0-11.0 [facility] Comment on above: Performed By: #### C BETHANY CA #### [facility] [address] [address] [address] Zuly Medina GLYCOHEMOGLOBIN A1Con 2021 ADA RECOMMENDATION SEE BELOW Normal [facility] Comment on above: Result Comment: ADA RECOMMENDED LIMIT 4.0 - 6.0 ADA THERAPEUTIC TARGET < 7.0 ACTION SUGGESTED > 7.0 Performed By: #### A 1C #### [facility] [address] [address] [address] Zuly Medina Glucose [Mass/Vol] 103 mg/dL Normal [facility] Comment on above: Performed By: #### A 1C #### [facility] [address] [address] [address] Zuly Medina HbA1c (Bld) [Mass fraction] 5.2 % Normal 4.5-6.2 [facility] Comment on above: Performed By: #### A 1C #### [facility] [address] [address] [address] Zuly Medina IRONon 11-14-2021 Iron [Mass/Vol] 60.0 ug/dL Normal 50.0-170.0 [facility] Comment on above: Performed By: #### C VDTB #### [facility] [address] [address] [address] Zuly Medina LIPID PROFILEon 11-14-2021 CHOL-HDL RATIO NORM SEE BELOW Normal [facility] Comment on above: Result Comment: 3.3 - 4.4 LOW RISK 4.4 - 7.1 AVERAGE RISK 7.1 - 11.0 MODERATE RISK >11.0 HIGH RISK Performed By: #### Oliverio SIMS CA #### [facility] [address] [address] [address] Zuly Medina Cholesterol [Mass/Vol] 145 mg/dL Normal <=200 [facility] Comment on above: Performed By: #### Oliverio SIMS CA #### [facility] [address] [address] [address] Zuly Medina Cholesterol in HDL [Mass/Vol] 65 mg/dL Critically high 40-60 [facility] Comment on above: Performed By: #### Oliverio SIMS CA #### [facility] [address] [address] [address] Zuly Medina Cholesterol in LDL [Mass/Vol] 72.2 mg/dL Normal [facility] Comment on above: Performed By: #### Oliverio SIMS CA #### [facility] [address] [place] [address] Dr. Zuly Medina Cholesterol.total/Ch olesterol in HDL [Mass ratio] 2.2 {ratio} Normal [facility] Comment on above: Performed By: #### Oliverio SIMS [place] #### [facility] [address] [place] [address] Dr. Zuly Medina HDL NORMAL > or = 60 mg/dl - LO W CARDIOVASCULAR RISK <40 mg/dl - HIGH CARDIOVASCULAR RISK Normal [facility] Comment on above: Performed By: #### Oliverio SIMS [place] #### [facility] [address] [address] [address] Zuly Medina LDL CALC NORMAL SEE BELOW Normal [facility] Comment on above: Result Comment: <100 mg/dl OPTIMAL 100 - 129 mg/dl NEAR OR ABOVE OPTIMAL 130 - 159 mg/dl BORDERLINE HIGH 160 - 189 mg/dl HIGH >190 mg/dl VERY HIGH Performed By: #### Oliverio SIMS [place] #### [facility] [address] [place] [address] Dr. Zuly Medina Triglyceride [Mass/Vol] 39 mg/dL Normal <=150 [facility] Comment on above: Performed By: #### CHIDI MCDANIEL #### [facility] [address] [address] [address] Zuly Medina VLDL CALC 7.8 mg/dL Normal [facility] Comment on above: Performed By: #### Oliverio SIMS, [place] #### [facility] [address] [place] [address] Dr. Zuly Medina PROF 14(COMP METB)on 022 Albumin [Mass/Vol] 3.8 g/dL Normal 3.4-5.0 [facility] Comment on above: Performed By: #### Oliverio SIMS [place] #### [facility] [address] [address] [address] Zuly Medina Albumin/Globulin [Mass ratio] 1.4 {ratio} Normal [facility] Comment on above: Performed By: #### Oliverio SIMS [place] #### [facility] [address] [place] [address] Dr. Zuly Medina ALP [Catalytic activity/Vol] 41 U/L Critically low 46-116 [facility] Comment on above: Performed By: #### Oliverio SIMS [place] #### [facility] [address] [place] [address] Dr. Zuly Medina ALT [Catalytic activity/Vol] 20 U/L Normal 14-59 [facility] Comment on above: Performed By: #### Oliverio SIMS [place] #### [facility] [address] [place] [address] Dr. Zuly Medina Anion gap [Moles/Vol] 8.2 mmol/L Normal [facility] Comment on above: Performed By: #### Oliverio SIMS, [place] #### [facility] [address] [place] [address] Dr. Zuly Meidna AST [Catalytic activity/Vol] 25 U/L Normal 15-37 [facility] Comment on above: Performed By: #### Oliverio SIMS, [place] #### [facility] [address] [place] [address] Dr. Zuly Medina Bilirubin [Mass/Vol] 0.4 mg/dL Normal 0.2-1.0 [facility] Comment on above: Performed By: #### Oliverio SIMS, [place] #### [facility] [address] [address] [address] Zuly Medina Calcium [Mass/Vol] 10.1 mg/dL Normal 8.5-10.1 [facility] Comment on above: Performed By: #### C [place], [place] #### [facility] [address] [address] [address] Zuly Medina Chloride [Moles/Vol] 104 mmol/L Normal 98-107 [facility] Comment on above: Performed By: #### C [place], [place] #### [facility] [address] [address] [address] Zuly Medina CO2 [Moles/Vol] 31.6 mmol/L Normal 21.0-32.0 [facility] Comment on above: Performed By: #### C BETH[place], [place] #### [facility] [address] [address] [address] Zuly Medina Creatinine [Mass/Vol] 1.44 mg/dL Critically high 0.55-1.02 [facility] Comment on above: Performed By: #### Oliverio SIMS [place] #### [facility] [address] [address] [address] Zuly Medina EGFR-AF SAMMARINESE 43 mL/min/1.73m2 Critically low >=60 [facility] Comment on above: Performed By: #### C BETH[place], [place] #### [facility] [address] [address] [address] Zuly Medina EGFR-NON AF SAMMARINESE 36 mL/min/1.73m2 Critically low >=60 [facility] Comment on above: Performed By: #### C [place]ETH[place], [place] #### [facility] [address] [address] [address] Zuly Medina Globulin (S) [Mass/Vol] 2.8 g/dL Normal [facility] Comment on above: Performed By: #### [place] #### [facility] [address] [address] [address] Zuly Medina Glucose [Mass/Vol] 100 mg/dL Normal 74-106 [facility] Comment on above: Performed By: #### CHIDI MCDANIEL #### [facility] [address] [place] [address] Dr. Zuly Medina Potassium [Moles/Vol] 3.8 mmol/L Normal 3.5-5.1 [facility] Comment on above: Performed By: #### Oliverio SIMS [place] #### [facility] [address] [place] [address] Dr. Zuly Medina Protein [Mass/Vol] 6.6 g/dL Normal 6.4-8.2 [facility] Comment on above: Performed By: #### CHIDI MCDANIEL #### [facility] [address] [place] [address] Dr. Zuly Medina Sodium [Moles/Vol] 140 mmol/L Normal 136-145 [facility] Comment on above: Performed By: #### CHIDI MCDANIEL #### [facility] [address] [place] [address] Dr. Zuly Medina Urea nitrogen [Mass/Vol] 28.0 mg/dL Critically high 7.0-18.0 [facility] Comment on above: Performed By: #### CHIDI MCDANIEL #### [facility] [address] [place] [address] Dr. Zuly Medina Urea nitrogen/Creatinine [Mass ratio] 19.4 mg/mg Normal [facility] Comment on above: Performed By: #### CHIDI MCDANIEL #### [facility] [address] [place] [address] Dr. Zuly Medina TSHon 11-14-2021 TSH 1.676 uIU/mL Normal 0.358-3.740 [facility] Comment on above: Performed By: #### CHIDI MCDANIEL #### [facility] [address] [place] [address] Dr. Zuly Medina [facility]05 SARS-CoV-2 (COVID-19) RNA MARY+probe Ql (Unsp spec) Not detected Normal NOT DETECTED [facility] Comment on above: Result Comment: When diagnostic [...] for this test is supported by the [place]sembl[place] Seat of Health and Human Service's declaration that [...] VDTB #### [facility] [address] [place] [address] Dr. Zuly Medina CREATININEon 09-18-2021 Creatinine [Mass/Vol] 1.33 mg/dL Critically high 0.55-1.02 [facility] Comment on above: Performed By: #### CHIDI MCDANIEL #### [facility] [address] [place] [address] Dr. Zuly Medina EGFR-AF SAMMARINESE 48 mL/min/1.73m2 Critically low >=60 [facility] Comment on above: Performed By: #### CHIDI MCDANIEL #### [facility] [address] [place] [address] Dr. Zuly Medina EGFR-NON AF SAMMARINESE 39 mL/min/1.73m2 Critically low >=60 [facility] Comment on above: Performed By: #### Oliverio SIMS [place] #### [facility] [address] [place] [address] Dr. Zuly Medina MRI BRAIN WO W [...] [facility]05 SARS-CoV-2 (COVID-19) RNA MARY+probe [...] for this test is supported by the [place] of Health and Human Service's (HHS's) declaration [...] consistent with SARS-CoV-2. Performed By: #### [facility] #### [facility] [address] [place] [address] Dr. Zuly Medina SYMPTOMATIC COVID-19 ANTIGEN on 08-23-2021 EUA Statement SEE BELOW Normal [facility] Comment on above: Result Comment: This test [...] sooner. Performed By: #### C VDTB #### [facility] [address] [address] [address] Zuly Medina SARS-CoV-2 (COVID-19) RNA MARY+probe Ql (Unsp spec) Negative Normal NEGATIVE [facility] Comment on above: Performed By: #### C VDTB #### [facility] [address] [place], [place] [address] Dr. Zuly Medina Q - Diptheria/Tetanus Abon 0 08-09-2021 DIPHTHERIA ANTITOXOID 0.25 IU/mL Normal [facility] [employer] Comment on above: Order Comment: [facility] performed at: [facility], [employer], [address] [facility] , [place], [place], , Ceramic Designer: Sahil Dyson M.D.,PhD [facility] Date/Time: [facility] [...] analytical performance characteristics have been determined by [employer] [place], [place]. It has not been cleared or approved by the U.S. Food and Drug Administration. This assay has been validated pursuant to the CLIA regulations and is used for clinical purposes. Performed By: #### 2 4729W, 82402K, 48185, 14898K, 03597K, 49836V #### [facility] [address] [place] [address] TETANUS ANTITOXOID 4.67 IU/mL Normal [facility] Comment on above: Order Comment: [facility] performed at: [facility] [employer], [address], [place], [place], , Ceramic Designer: Sahil Dyson M.D.,PhD [facility] Date/Time: [facility] [...] analytical performance characteristics have been determined by [employer] [place]. It has not been cleared or approved by the U.S. Food and Drug Administration. This assay has been validated pursuant to the CLIA regulations and is used for clinical purposes. Performed By: #### 2 4729W, 85920D, 19342, 01826H, 92066K, 36502I #### [facility] [address] [place] [address] Q - IGA,SERUMon 08-09-2021 IMMUNOGLOBULIN A 125 mg/dL Normal 70-320 [facility] Comment on above: Order Comment: [facility] performed at: [facility], [employer] [facility], [address] [place] [address], [address] [place] [address], [address] [place] [address], Ceramic Designer: Thony Haley MD [facility] Date/Time: [facility] Results Received Date/Time: [facility] Reported Date/Time: Performed By: #### 2 4729W, 71671D, 21677, 59645E, 87665E, 35553Z #### [facility] [address] [place] [address] Q - IGE,SERUMon 08-09-2021 IMMUNOGLOBULIN E 44 kU/L Normal [facility] Comment on above: Order Comment: [facility] performed at: [employer], [employer] [facility], [address] [place] [address], [address] [place] [address], [address] [place] [address], Ceramic Designer: Thony Haley MD [facility] Date/Time: [facility] Received Date/Time: [facility] Reported Date/Time: Performed By: #### 2 4729W, 21602B, 34380, 14384J, 49162Y, 20582K #### [facility] [address] [place] [address] Q - IGG,SERUMon 08-09-2021 IMMUNOGLOBULIN G 895 mg/dL Normal 600-1540 [facility] [employer] Comment on above: Order Comment: [facility] performed at: [employer] [facility], [address] [place] [address], [address] [place] [address], [address] [place] [address], Ceramic Designer: Thony Haley MD [facility] Date/Time: [facility] Received Date/Time: [facility] Reported Date/Time: Performed By: #### 2 4729W, 90758T, 51453, 85494N, 63641O, 40748M #### [facility] [address] [place] [address] Q - IGM,SERUMon 08-09-2021 IMMUNOGLOBULIN M 158 mg/dL Normal 50-300 [facility] [employer] Comment on above: Order Comment: [facility] performed at: [facility], [employer] [facility], [address] [facility], [address] [facility], [place], [address], Ceramic Designer: Thony Haley MD [facility] Date/Time: [facility] Results Received Date/Time: [facility] Reported Date/Time: Performed By: #### 2 4729W, 35598S, 96339, 88990J, 32006C, 26298O #### [facility] [address] [place] [address] Q - Strep pneumo Ab 23 serot ypeson 08-09-2021 SEROTYPE 1 (1) 9.5 Normal [facility] [employer] Comment on above: Order Comment: [facility] performed at: [facility], [employer],, [address] [place], [place], , Ceramic Designer: Osiris Galdamez MD,PhD,BHANU [facility] Date/Time: [facility] Results Received Date/Time: [facility] Reported Date/Time: Performed By: #### 2 4729W, 07309X, 22613, 91507B, 52458K, 57821M #### [facility] [address] [place] [address] SEROTYPE 12 (12F) 1.0 Normal [facility] Comment on above: Order Comment: [facility] performed at: [facility], [employer],, [address] [place], [place], , Ceramic Designer: Osiris Galdamez MD,PhD,BHANU [facility] Date/Time: [facility] Results Received Date/Time: [facility] Reported Date/Time: Performed By: #### 2 4729W, 58762D, 28026, 58653O, 69143H, 57728O #### [facility] [address] [place] [address] SEROTYPE 14 (14) 3.3 [facility] Comment on above: Order Comment: [facility] performed at: [facility], [employer],, [address] [place] [address], , Ceramic Designer: Osiris Galdamez MD,PhD,BHANU [facility] Date/Time: [facility] Results Received Date/Time: [facility] Reported Date/Time: Performed By: #### 2 4729W, 53298W, 51229, 99209R, 68607J, 48691Q #### [facility] [address] [place] [address] SEROTYPE 17 (17F) 1.[address] [facility] Comment on above: Order Comment: [facility] performed at: [facility], [employer],, [address] [place] [address], , Ceramic Designer: Osiris Galdamez MD,PhD,BHANU [facility] Date/Time: [facility] Results Received Date/Time: [facility] Reported Date/Time: Performed By: #### 2 4729W, 38300S, 18520, 02785V, 84982S, 22883A #### [facility] [address] [place] [address] SEROTYPE 19 (19F) [address] [facility] Comment on above: Order Comment: [facility] performed at: [facility], [employer],, [address] [place], [place], , Ceramic Designer: Osiris Galdamez MD,PhD,BHANU [facility] Date/Time: [facility] Received Date/Time: [facility] Reported Date/Time: Performed By: #### 2 4729W, 24539E, 25304, 23669Y, 21888N, 93975U #### [facility] [address] [place] [address] SEROTYPE 2 (2) 7.2 Normal [facility] [employer] Comment on above: Order Comment: [facility] performed at: [facility], [employer],, [address] [place], [place], , Ceramic Designer: Osiris Galdamez MD,PhD,BHANU [facility] Date/Time: [facility] Received Date/Time: [facility] Reported Date/Time: Performed By: #### 2 4729W, 14239F, 06725, 31804L, 66820K, 38218F #### [facility] [address] [place] [address] SEROTYPE 20 (20) 3.4 Normal [facility] Comment on above: Order Comment: [facility] performed at: [facility], [employer],, [address] [place], [place], , Ceramic Designer: Osiris Galdamez MD,PhD,BHANU [facility] Date/Time: [facility] Results Received Date/Time: [facility] Reported Date/Time: Performed By: #### 2 4729W, 71508Z, 44421, 87184E, 26977W, 29244A #### [facility] [address] [place] [address] SEROTYPE 22 (22F) 5.9 Normal [facility] Comment on above: Order Comment: [facility] performed at: [facility], [employer],, [address] [place], [place], , Ceramic Designer: Osiris Galdamez MD,PhD,BHANU [facility] Date/Time: [facility] Results Received Date/Time: [facility] Reported Date/Time: Performed By: #### 2 4729W, 51275K, 87665, 91653E, 64145V, 31275Y #### [facility] [address] [place] [address] SEROTYPE 23 (23F) 5.2 Normal [facility] Comment on above: Order Comment: [facility] performed at: [facility], [employer],, [address] [place], [place], , Ceramic Designer: Osiris Galdamez MD,PhD,BHANU [facility] Date/Time: [facility] Results Received Date/Time: [facility] Reported Date/Time: Performed By: #### 2 4729W, 57609M, 92772, 36286I, 68695F, 64391Y #### [facility] [address] [place] [address] SEROTYPE 26 (6B) 18.8 Normal [facility] Comment on above: Order Comment: [facility] performed at: [facility], [employer],, [facility] [place], , Ceramic Designer: Osiris Galdamez MD,PhD,BHANU [facility] Date/Time: [facility] Results Received Date/Time: [facility] Reported Date/Time: Performed By: #### 2 4729W, 83678C, 11533, 83617T, 12822S, 97485W #### [facility] [address] [place] [address] SEROTYPE 3 (3) 1.3 Normal [facility] [employer] Comment on above: Order Comment: [facility] performed at: [facility], [employer],, [address] [place], [place], , Ceramic Designer: Osiris Galdamez MD,PhD,BHANU [facility] Date/Time: [facility] Results Received Date/Time: [facility] Reported Date/Time: Performed By: #### 2 4729W, 66182Z, 18866, 70563O, 06043J, 85550S #### [facility] [address] [place] [address] SEROTYPE 34 (10A) 0.9 [facility] Comment on above: Order Comment: [facility] performed at: [facility], [employer],, [address] [place], [place], , Ceramic Designer: Osiris Galdamez MD,PhD,BHANU [facility] Date/Time: [facility] Results Received Date/Time: [facility] Reported Date/Time: Performed By: #### 2 4729W, 55507T, 44397, 61985M, 70274S, 13201J #### [facility] [address] [place] [address] SEROTYPE 4 (4) <0.3 [facility] Comment on above: Order Comment: [facility] performed at: [facility], [employer],, [address] [place] [address], , Ceramic Designer: Osiris Galdamez MD,PhD,BHANU [facility] Date/Time: [facility] Results Received Date/Time: [facility] Reported Date/Time: Performed By: #### 2 4729W, 21439U, 13020, 62004T, 52502I, 88669C #### [facility] [address] [place] [address] SEROTYPE 43 (11A) 1.1 [facility] Comment on above: Order Comment: [facility] performed at: [facility], [employer],, [address] [place], [place], , Ceramic Designer: Osiris Galdamez MD,PhD,BHANU [facility] Date/Time: [facility] Results Received Date/Time: [facility] Reported Date/Time: Performed By: #### 2 4729W, 73229M, 48510, 42727S, 62941H, 45509Z #### [facility] [address] [place] [address] SEROTYPE 5 (5) 2.3 Normal [facility] Comment on above: Order Comment: [facility] performed at: , [employer],, [address] [place] [address], , Ceramic Designer: Osiris Galdamez MD,PhD,BHANU [facility] Date/Time: [facility] Results Received Date/Time: [facility] Reported Date/Time: Performed By: #### 2 4729W, 17351I, 64703, 21281J, 21584V, 32993D #### [facility] [address] [place] [address] SEROTYPE 51 (7F) 8.4 [facility] Comment on above: Order Comment: [facility] performed at: [facility], [employer],, [address] [place] [address], , Ceramic Designer: Osiris Galdamez MD,PhD,BHANU [facility] Date/Time: [facility] Results Received Date/Time: [facility] Reported Date/Time: Performed By: #### 2 4729W, 72830F, 82240, 16365I, 24257S, 77767D #### [facility] [address] [place] [address] SEROTYPE 54 (15B) 2.3 Normal [facility] Comment on above: Order Comment: [facility] performed at: Differential, [employer],, [address] [place] [address], , Ceramic Designer: Osiris Galdamez MD,PhD,BHANU [facility] Date/Time: [facility] Results Received Date/Time: [facility] Reported Date/Time: Performed By: #### 2 4729W, 26275S, 21121, 19069Q, 51255C, 20860U #### [facility] [address] [place] [address] SEROTYPE 56 (18C) 18.[address] [facility] Comment on above: Order Comment: [facility] performed at: [facility], [employer],, [address] [place] [address], , Ceramic Designer: Osiris Galdamez MD,PhD,BHANU [facility] Date/Time: [facility] Results Received Date/Time: [facility] Reported Date/Time: Performed By: #### 2 4729W, 88507U, 66168, 41531O, 88680W, 92909Y #### [facility] [address] [place] [address] SEROTYPE 57 (19A) 15.6 Normal [facility] Comment on above: Order Comment: [facility] performed at: Differential, [employer],, [address] [place] [address], , Ceramic Designer: Osiris Galdamez MD,PhD,BHANU [facility] Date/Time: [facility] Results Received Date/Time: [facility] Reported Date/Time: Performed By: #### 2 4729W, 11173J, 28182, 52541D, 68694M, 66903F #### [facility] [address] [place] [address] SEROTYPE 68 (9V) 2.1 Normal [place] [employer] Comment on above: Order Comment: [facility] performed at: Differential, [employer],, [address] [place], [place], , Ceramic Designer: Osiris Galdamez MD,PhD,BHANU [facility] Date/Time: [facility] Results Received Date/Time: [facility] Reported Date/Time: Performed By: #### 2 4729W, 19453B, 48145, 53540F, 87846S, 98246R #### [facility] [address] [place] [address] SEROTYPE 70 (33F) 28.9 Normal [facility] [place] [facility] [employer] Comment on above: Order Comment: [facility] performed at: Differential, [employer],, [address] [place], [place], , Ceramic Designer: Osiris Galdamez MD,PhD,BHANU [facility] Date/Time: [facility] [...] serotype-specific titers may have less robust responses. [employer] uses a multi-analyte immunodetection (MAID) method. The method employs the ILD [employer]icesex flow cytometric system which measures multiple analytes [...] analytical performance characteristics have been determined by [employer]. It has not been cleared or approved by FDA. This assay has been validated pursuant to the CLIA regulations and used for clinical purposes. For additional information, please refer to http://education.Lavaboom/faq/QCG309 (This link is being provided for informational/ educational purposes only.) Performed By: #### 2 4729W, 44075B, 05820, 88046C, 63612R, 37654W #### [facility] [address] [place] [address] SEROTYPE 8 (8) 14.6 Normal [facility] [employer] Comment on above: Order Comment: [facility] performed at: [employer],, [address] [place] [address], , Ceramic Designer: Osiris Galdamez MD,PhD,BHANU [facility] Date/Time: [facility] Results Received Date/Time: [facility] Reported Date/Time: Performed By: #### 2 4729W, 52365N, 59385, 72829Z, 36147X, 33054Z #### [facility] [address] [place] [address] SEROTYPE 9 (9N) 1.0 Normal [facility] [employer] Comment on above: Order Comment: [facility] performed at: [employer],, [address] [place] [address], , Ceramic Designer: Osiris Galdamez MD,PhD,BHANU [facility] Date/Time: [facility] Results Received Date/Time: [facility] Reported Date/Time: Performed By: #### 2 4729W, 32603A, 83440, 69161K, 48121I, 95243Q #### [facility] [address] [place] [address] CT SINUSES WO CONon 08-06-19 CT SINUSES [...] WEI GARCIA Date: 2021-08-05 08:48 Normal [facility] MG MAMM DX 3D LT CADon 08-05 MG MAMM DX 3D LT CAD Patient: ADRIANNA BUITRAGODexter Exam Date: 08/05/2021 : 1950 Gender:F Ordering : DR JENNY BURRIS . Admission #: [id number] Family : Order #: [id number] CLICK HERE TO VIEW EXAM RADIOLOGY REPORT [...] : DR JENNY BURRIS . Admission #: [id number] Family : Order #: [id number] CLICK HERE TO VIEW EXAM RADIOLOGY REPORT [...] 09:25 Normal [facility] Vital Signs Date Time Vital Sign Value Performing Clinician Davon longoria 06-16-2024 08:48-0400 Body height 160 cm Renny Orlando DPM Work Phone: [facility] 06-16-2024 08:48-0400 Body mass index (BMI) [Ratio] 22.85 kg/m2 Renny Orlando DPM Work Phone: [facility] 06-16-2024 08:48-0400 Body weight 58.51 kg Renny Orlando DPM Work Phone: [facility] 06-16-2024 08:48-0400 Respiratory rate 18 /min Renny Orlando DPM Work Phone: [facility] 02-11-2024 08:33-0500 Body height 160 cm Renny Orlando DPM Work Phone: [facility] 02-11-2024 08:33-0500 Body mass index (BMI) [Ratio] 22.85 kg/m2 Renny Orlando DPM Work Phone: [facility] 02-11-2024 08:33-0500 Body weight 58.51 kg Renny Brown DPM Work Phone: [facility] 02-11-2024 08:33-0500 Diastolic blood pressure 80 mm[Hg] Renny Brown DPM Work Phone: [facility] 02-11-2024 08:33-0500 Heart rate 81 /min Renny Brown DPM Work Phone: [facility] 02-11-2024 08:33-0500 Systolic blood pressure 126 mm[Hg] Renny Brown DPM Work Phone: [facility] 01-28-2024 08:34-0400 Body height 160 cm Renny Brown DPM Work Phone: [facility] 01-28-2024 08:34-0400 Body mass index (BMI) [Ratio] 22.85 kg/m2 Renny Brown DPM Work Phone: [facility] 01-28-2024 08:34-0400 Body weight 58.51 kg Renny Brown DPM Work Phone: [facility] 01-28-2024 08:34-0400 Diastolic blood pressure 80 mm[Hg] Renny Brown DPM Work Phone: [facility] 01-28-2024 08:34-0400 Heart rate 81 /min Renny Brown DPM Work Phone: [facility] 01-28-2024 08:34-0400 Systolic blood pressure 128 mm[Hg] Renny Brown DPM Work Phone: [facility] 01-14-2024 08:38-0400 Body height 160 cm Renny Brown DPM Work Phone: [facility] 01-14-2024 08:38-0400 Body mass index (BMI) [Ratio] 22.85 kg/m2 Renny Brown DPM Work Phone: [facility] 01-14-2024 08:38-0400 Body weight 58.51 kg Renny Brown DPM Work Phone: [facility] 01-14-2024 08:38-0400 Respiratory rate 18 /min Renny Brown DPM Work Phone: [facility] 12-31-2023 09:01-0400 Body height 160 cm Renny Brown DPM Work Phone: [facility] 12-31-2023 09:01-0400 Body mass index (BMI) [Ratio] 22.85 kg/m2 Renny Brown DPM Work Phone: [facility] 12-31-2023 09:01-0400 Body weight 58.51 kg Renny Brown DPM Work Phone: [facility] 12-31-2023 09:01-0400 Diastolic blood pressure 75 mm[Hg] Renny Brown DPM Work Phone: [facility] 12-31-2023 09:01-0400 Heart rate 75 /min Renyn Brown DPM Work Phone: [facility] 12-31-2023 09:01-0400 Respiratory rate 18 /min Renny Brown DPM Work Phone: [facility] 12-31-2023 09:01-0400 Systolic blood pressure 126 mm[Hg] Renny Brown DPM Work Phone: [facility] 12-17-2023 08:41-0400 Body height 160 cm Renny Brown DPM Work Phone: [facility] 12-17-2023 08:41-0400 Body mass index (BMI) [Ratio] 22.85 kg/m2 Renny Brown DPM Work Phone: [facility] 12-17-2023 08:41-0400 Body weight 58.51 kg Renny Brown DPM Work Phone: [facility] 12-17-2023 08:41-0400 Diastolic blood pressure 74 mm[Hg] Renny Brown DPM Work Phone: [facility] 12-17-2023 08:41-0400 Heart rate 82 /min Renny Orlando DPM Work Phone: [facility] [facility] 12-17-2023 08:41-0400 Systolic blood pressure 125 mm[Hg] Renny Orlando DPM Work Phone: [facility] 12-15-2023 08:08-0400 Body height 160 cm Sandeep Pleitez LOT ATTENDANT Work Phone: [facility] 12-15-2023 08:08-0400 Body mass index (BMI) [Ratio] 22.82 kg/m2 Sandeep Condonoll LOT ATTENDANT Work Phone: [facility] 12-15-2023 08:08-0400 Body weight 58.42 kg Sandeep Pleitez LOT ATTENDANT Work Phone: [facility] 12-15-2023 08:08-0400 Diastolic blood pressure 70 mm[Hg] Sandeep Pleitez LOT ATTENDANT Work Phone: [facility] 12-15-2023 08:08-0400 Systolic blood pressure 118 mm[Hg] Sandeep Condonoll LOT ATTENDANT Work Phone: [facility] 12-03-2023 09:18-0400 Body height 160 cm Renny Orlando DPM Work Phone: [facility] 12-03-2023 09:18-0400 Body mass index (BMI) [Ratio] 22.5 kg/m2 Renny Orlando DPM Work Phone: [facility] 12-03-2023 09:18-0400 Body weight 57.61 kg Renny Orlando DPM Work Phone: [facility] 12-03-2023 09:18-0400 Diastolic blood pressure 79 mm[Hg] Renny Orlando DPM Work Phone: [facility] 12-03-2023 09:18-0400 Heart rate 78 /min Renny Orlando DPM Work Phone: [facility] 12-03-2023 09:18-0400 Systolic blood pressure 128 mm[Hg] Renny Orlando DPM Work Phone: [facility] Healthcare Encounters Encounter Date Encounter Type Care Provider Facility Start: 08-12-2024 End: 08-15-2024 Refill Keila Faith MD Work Phone: [facility] Comment on above: Mild intermittent as thma without complication ([facility]) Start: 06-16-2024 End: 06-16-2024 Patient encounter procedure Renny Orlando DPM Work Phone: [facility] Comment on above: Verruca plantaris (P rimary Dx); Foot pain, right; Foot pain, left Start: 06-16-2024 End: 06-16-2024 ambulatory RENNY ORLANDO Not Available Start: 04-07-2024 End: 04-07-2024 Shyla Faith MD Work Phone: [facility] Start: 04-07-2024 End: 04-07-2024 Shyla Faith MD Work Phone: [facility] Start: 04-07-2024 End: 04-07-2024 Office outpatient visit 15 minutes Keila Faith MD Work Phone: [facility] Comment on above: Asthma, allergic, mi ld intermittent, uncomplicated ([facility]) (Primary Dx) Start: 04-07-2024 End: 04-07-2024 ambulatory KEILA FAITH Not Available Start: 02-11-2024 End: 02-11-2024 Bamboo flowsheet Renny Orlando DPM Work Phone: [facility] Start: 02-11-2024 End: 02-11-2024 Bamboo flowsjaylon Orlando DPM Work Phone: [facility] Start: 02-11-2024 End: 02-11-2024 Patient encounter procedure Renny Orlando DPM Work Phone: [facility] Comment on above: Verruca plantaris (P rimary Dx); Foot pain, right; Foot pain, left Start: 02-11-2024 End: 02-11-2024 ambulatory RENNY Frank DARION Not Available Start: 01-28-2024 End: 01-28-2024 Bamboo flowsheet Renny A Brown DPM Work Phone: [facility] Start: 01-28-2024 End: 01-28-2024 Bamboo flowsheet Renny A Brown DPM Work Phone: [facility] Start: 01-28-2024 End: 01-28-2024 Patient encounter procedure Renny Frank Darion DPM Work Phone: [facility] Comment on above: Verruca plantaris (P rimary Dx); Foot pain, right; Foot pain, left Start: 01-28-2024 End: 01-28-2024 ambulatory RENNY ORLANDO Not Available Start: 01-14-2024 End: 01-14-2024 Bamboo flowsheet Renny A Brown DPM Work Phone: [facility] Start: 01-14-2024 End: 01-14-2024 Bamboo flowsheet Renny A Brown DPM Work Phone: [facility] Start: 01-14-2024 End: 01-14-2024 Patient encounter procedure Renny Frank Darion DPM Work Phone: [facility] Comment on above: Verruca plantaris (P rimary Dx); Foot pain, right; Foot pain, left Start: 01-14-2024 End: 01-14-2024 ambulatory RENNY Frank ORLANDO Not Available Start: 12-31-2023 End: 12-31-2023 Bamboo flowsheet Renny A Brown DPM Work Phone: [facility] Start: 12-31-2023 End: 12-31-2023 Bamboo flowsheet Renny A Brown DPM Work Phone: [facility] Start: 12-31-2023 End: 12-31-2023 Patient encounter procedure Renny Orlando DPM Work Phone: [facility] Comment on above: Verruca plantaris (P rimary Dx); Foot pain, right; Foot pain, left Start: 12-31-2023 End: 12-31-2023 ambulatory RENNY ORLANDO Not Available Start: 12-17-2023 End: 12-17-2023 Bamboo flowsheet Renny Orlando DPM Work Phone: [facility] Start: 12-17-2023 End: 12-17-2023 Bamboo flowsheet Renny Orlando DPM Work Phone: [facility] Start: 12-17-2023 End: 12-17-2023 Patient encounter procedure Renny Orlando DPM Work Phone: [facility] Comment on above: Verruca plantaris (P rimary Dx); Foot pain, right; Onychomycosis; Toe pain, bilateral; Xerosis cutis; Foot pain, left Start: 12-17-2023 End: 12-17-2023 ambulatory RENNY ORLANDO Not Available Start: 12-15-2023 End: 12-15-2023 Bamboo flowsheet Sandeep Pleitez LOT ATTENDANT Work Phone: [facility] Start: 12-15-2023 End: 12-15-2023 Bamboo flowsheet Sandeep Pleitez LOT ATTENDANT Work Phone: [facility] Start: 12-15-2023 End: 12-15-2023 Office outpatient visit 15 minutes Sandeep Pleitez LOT ATTENDANT Work Phone: [facility] Comment on above: Migraine with aura a nd without status migrainosus, not intractable (CMS/HCC) (Primary Dx) Start: 12-15-2023 End: 12-15-2023 ambulatory SANDEEP PLEITEZ Not Available Start: 12-03-2023 End: 12-03-2023 Bamboo flowsheet Renny Orlando DPM Work Phone: [facility] Start: 12-03-2023 End: 12-03-2023 Bamboo flowsheet Renny Orlando DPM Work Phone: [facility] Start: 12-03-2023 End: 12-03-2023 Patient encounter procedure Renny Orlando DPM Work Phone: [facility] Comment on above: Verruca plantaris (P rimary Dx); Foot pain, right; Foot pain, left; Onychomycosis; Toe pain, bilateral; Xerosis cutis Start: 12-03-2023 End: 12-03-2023 ambulatory RENNY ORLANDO Not Available Start: 10-12-2023 End: 10-12-2023 ambulatory KEILA Dukes RAMBASECharley Not Available Start: 09-10-2023 End: 09-10-2023 ambulatory RENNY ORLANDO Not Available Start: 08-05-2023 End: 08-06-2023 ambulatory Issa VALE Facility:[id number] Start: 07-15-2023 End: 07-15-2023 ambulatory KEILA Dukes RAMBASEK Not Available Start: 07-02-2023 End: 07-02-2023 ambulatory RENNY ORLANDO Not Available Start: 06-09-2023 End: 06-10-2023 ambulatory Issa SWANSONL Facility:[facility] Start: 06-02-2023 ambulatory Issa VALE Facility:[facility] Start: 05-28-2023 ambulatory Issa VALE Facility:[facility] Start: 05-14-2023 Chart abstracting Renny lorenzana DPM Work Phone: [facility] Start: 04-10-2023 End: 04-10-2023 ambulatory MELO JENKINS [facility] Start: 11-25-2022 End: 11-25-2022 ambulatory TEGAN PAIZ [facility] Start: 07-02-2022 End: 07-02-[address] JENNY BURRIS . Facility: Start: 06-02-2022 End: 06-03-[address] JENNY [...] Start: 05-14-2022 End: 05-14-2022 ambulatory [facility] Start: 01-22-2022 End: 01-23-[address] [...] ALL [address] [place] [phone] Keila Faith MD [address] [place] [address] [facility] Start: 12-14-2024 End: 12-14-2024 Patient encounter procedure [facility] Start: 12-05-2024 Influenza vaccination Influenz a Vaccine (Season Ended) [facility] Start: 08-25-2024 End: 08-25-2024 Patient encounter procedure 08/25/2024 9:10 AM EDT Procedure Visit [facility] [address] [facility] [address] [place] [phone] Renny Orlando, DPSobia [address] [facility] [address] [place] [address] [facility] Start: 04-18-2024 End: 04-18-2024 Patient encounter procedure 04/18/2024 9:20 AM EST Office Visit [facility] [address] [facility] [address] [place] [phone] Keila Faith MD [address] [facility] [address] [place] [address] [facility] Start: 04-07-2024 End: 04-07-2024 Patient encounter procedure 04/07/2024 9:20 AM EST Office Visit [facility] [address] [facility] [address] [place] [phone] Keila Faith MD [address] [facility] [address] [place] [address] Arrived [facility] Comment on above: Arrived Start: 02-11-2024 [...] EDT Office Visit [facility] [address] [phone] Renny Orlando, DPM [address] [address] Verruca plantaris (Primary Dx); Foot pain, right; Foot pain, left [facility] Comment on above: Verruca plantaris (P rimary Dx); Foot pain, right; Foot pain, left Start: 12-31-2023 End: 12-31-2023 Patient encounter procedure 12/31/2023 9:10 AM EDT Office Visit [facility] [address] [phone] Renny Orlando, LEROAM [address] [address] Verruca plantaris (Primary Dx); Foot pain, right; Foot pain, left [facility] Comment on above: Verruca plantaris (P rimary Dx); Foot pain, right; Foot pain, left Start: 12-17-2023 End: 12-17-2023 Patient encounter procedure [facility] Comment on above: Verruca plantaris (P rimary Dx); Foot pain, right; Onychomycosis; Toe pain, bilateral; Xerosis cutis Start: 12-15-2023 End: 12-15-2023 Patient encounter procedure [facility] Comment on above: Arrived Start: 12-14-2023 End: 12-14-2023 Patient encounter procedure 12/14/2023 9:20 AM EDT Office Visit [facility] [address] [address] Keila Faith MD [address] [facility] [address] [place] [address] [facility] Start: 12-06-2023 Influenza vaccination Influenza Vacc ine (#1) [facility] Start: 12-03-2023 End: 12-03-2023 Patient encounter procedure 12/03/2023 9:30 AM EDT Procedure Visit [facility] [address] [address] Renny Orlando DPM [address] [address] Verruca plantaris (Primary Dx); Foot pain, right; Foot pain, left; Onychomycosis; Toe pain, bilateral; Xerosis cutis [facility] Comment on above: Verruca plantaris (P rimary Dx); Foot pain, right; Foot pain, left; Onychomycosis; Toe pain, bilateral; Xerosis cutis Start: 05-14-2023 End: 05-14-2023 Patient encounter procedure 05/14/2023 8:40 AM EST Office Visit [facility] [address] [phone] Renny Orlando DPM [address] [address] [facility] Start: 12-05-2022 Influenza vaccination Influenza Vacc ine (#1) [facility] Start: 10-27-2018 Pneumococcal Vaccine : 65+ Years (2 - PPSV23 or PCV20) Pneumococcal Vaccine: 65+ Years (2 - PPSV23 or PCV20) [facility] Start: 10-27-2018 Pneumococcal Vaccine : 65+ Years (2 of 2 - PPSV23 or PCV20) Pneumococcal Vaccine: 65+ Years (2 of 2 - PPSV23 or PCV20) [facility] Start: 10-27-2018 Pneumococcal Vaccine : 65+ Years (2 of 2 - PPSV23) Pneumococcal Vaccine: 65+ Years (2 of 2 - PPSV23) [facility] Start: 1989 Screening for malign ant neoplasm of breast Mammogram [facility] Start: 1949 Screening for malign ant neoplasm of colon [facility] Payers Date Payer Category Payer Private Health Insurance [employer] [id number] 2021 Unknown [employer] [id number] 2021-Present [address] [place] [address] [id number] 2014 Medicare [id number]. [id number] 1959 Medicare [id number] 1959 Unknown [id number] 1949 Unknown [id number] 2.840.1.379796.3.579.2. 593 1949 Unknown [id number] .840.1.846919.3.579.2. 593 1949 Unknown [id number] .840.1.438673.3.579.2. 593 1949 Unknown [id number] .16840.1.571111.3.579.2. 593 1949 Unknown [id number] 2.16840.1.991384.3.579.2. 593 1949 Unknown [id number] .16840.1.160896.3.579.2. 593 1949 Unknown [id number] 2.16840.1.189852.3.579.2. 593 1949 Unknown [id number] 2.16.840.1.883126.3.579.2. 593 1949 Unknown [id number] 2.16.840.1.395066.3.579.2. 593 1949 Unknown [id number] 2.16.840.1.494239.3.579.2. 593 1949 Unknown [id number] 2.16.840.1.494997.3.579.2. 593 1949 Unknown [id number] 2.16.840.1.365759.3.579.2. 593 1949 Unknown [id number] 2.16.840.1.946464.3.579.2. 593 1949 Unknown [id number] 2.16.840.1.282925.3.579.2. 593 1949 Unknown [id number] 2.16.840.1.318898.3.579.2. 593 1949 Unknown [id number] 2.16.840.1.737331.3.579.2. 593 1949 Unknown [id number] 2.16.840.1.618358.3.579.2. 727 1949 Unknown [id number] 2.16.840.1.812573.3.579.2. 727 1949 Unknown [id number] 2.16.840.1.160269.3.579.2. 1259 1949 Unknown [id number] 2.16.840.1.841646.3.579.2. 1259 1949 Unknown [id number] 2.16.840.1.131730.3.579.2. 1259 1949 Unknown [id number] 2.16.840.1.490512.3.579.2. 1259 1949 Unknown [id number] 2.16.840.1.253234.3.579.2. 1259 1949 Unknown [id number] 2.16.840.1.019650.3.579.2. 1258 1949 Unknown [id number] 2.16.840.1.960274.3.579.2. 1258 1949 Unknown [id number] 2.16.840.1.600480.3.579.2. 1258 1949 Unknown [id number] 2.16.840.1.274797.3.579.2. 1258 1949 Unknown [id number] 2.16.840.1.345519.3.579.2. 1258 1949 Unknown [id number] 2.16.840.1.018730.3.579.2. 1258 1949 Unknown [id number] 2.16.840.1.489616.3.579.2. 1258 1949 Unknown [id number] 2.16.840.1.877555.3.579.2. 1259 Social History Date Type Detail Facility Start: 04-30-2023 End: 12-03-2023 Tobacco smoking status [facility] Ex-smoker [facility] End: 04-06-2006 History of tobacco use Current smoker [facility] End: 04-06-2006 History of tobacco use Cigarette Smoker [facility] History of tobacco use Passive smoker [facility] Start: 04-30-2023 End: 12-03-2023 Tobacco use and exposure Smokeless tobacco non-user [facility] Start: 05-14-2023 End: 12-03-2023 Alcohol intake Lifetime non-drinker (finding) [facility] Start: 04-30-2023 End: 06-16-2024 History of Social function [facility] Start: 04-30-2023 End: 06-16-2024 Tobacco use panel [facility] Start: 12-12-2022 Alcohol Comment Caffeine intake: non e [facility] Start: 1950 Sex Assigned At Not on file N [facility] Start: 12-31-2023 End: 06-16-2024 Alcoholic beverage intake Ex-drinker (finding) [facility] Start: 12-14-2023 Alcohol Comment Caffeine intak e: none; quit in 2015 [facility] Clinical Notes 05-14-2022 to 06-16-2024 Renny Orlando, SANKET - 06/16/2024 9:00 AM Ysabel Faith MD - 04/07/2024 9:20 AM Lani Orlando, SANKET - 02/11/2024 8:30 AM Lani Orlando, SANKET - 01/28/2024 8:40 AM EDT Note Date & Type Note Facility 06-16-2024 History of Present illness Narrative Patient: Adrianna Buitrago : 1950 PCP: Jenny Burris MD SUBJECTIVE Patient presents today for follow up of skin lesion/neoplasm of unknown origin to the right and left foot Pt states that previous treatment of acid tx with some improvement Pt rates pain the pain on a 1-10 scale an intensity of 7 Pt presents today for followup. Allergies: Allergies [...] b.I.d. basis., Disp: 30 mL, Rfl: 11 Yhmmbbv-Mihvnwtsfez-Aqjkjxdgvg (Breztri Aerosphere) 160-9-4.8 MCG/ACT aerosol, Inhale 1 [...] Types: Cigarettes Quit date: 04/06/2006 Years since quittin.1 Passive exposure: Past Smokeless tobacco: Never Vaping [...] Partner Violence: Unknown (05/28/2023) [facility] [place] [facility] Fear of [...] left foot lesion Positive pain on palpation to toenails of the left 1,2,3,4,5 toes and right 1,2,3,4,5 toes XRAY: US: ASSESSMENT 1. Verruca plantaris 2. [...] Renny Orlando DPM documented in this encounter [facility] 04-07-2024 History of Present illness Narrative Adrianna Buitrago returns to the office today For [...] medications or symptoms. documented in this encounter [facility] 02-11-2024 History of Present illness Narrative Patient: Adrianna [...] b.I.d. basis., Disp: 30 mL, Rfl: 11 Nqejduc-Iyqffnhsbpc-Zgzhfbiudh (Breztri Aerosphere) 160-9-4.8 MCG/ACT aerosol, Inhale 1 [...] Partner Violence: Unknown (05/28/2023) Received from [facility], [facility] Fear of Current or [...] Renny Orlando DPM documented in this encounter [facility] 01-28-2024 History of Present illness Narrative Patient: Adrianna Ayon Iftikhar : 1950 PCP: Jenny Burris MD SUBJECTIVE [...] b.I.d. basis., Disp: 30 mL, Rfl: 11 Ejhfpli-Tendlfhikvc-Wdcmkyljlp (Breztri Aerosphere) 160-9-4.8 MCG/ACT aerosol, Inhale 1 [...] Partner Violence: Unknown (05/28/2023) Received from [facility] [place] [facility] Fear of [...] Renny Orlando DPM documented in this encounter [facility] 01-14-2024 History of Present illness Narrative Patient: Adrianna Lathamman : 1950 PCP: Jenny Burris MD SUBJECTIVE [...] b.I.d. basis., Disp: 30 mL, Rfl: 11 Uljoxor-Fallyajfewg-Zhaulhoifw (Breztri Aerosphere) 160-9-4.8 MCG/ACT aerosol, Inhale 1 [...] Partner Violence: Unknown (05/28/2023) Received from [facility] [place] [facility] Fear of [...] Renny Orlando DPM documented in this encounter [facility] 12-31-2023 History of Present illness Narrative Patient: Adrianna [...] b.I.d. basis., Disp: 30 mL, Rfl: 11 Zdxhvha-Frtpopezwkw-Cutzilzigf (Breztri Aerosphere) 160-9-4.8 MCG/ACT aerosol, Inhale 1 [...] Partner Violence: Unknown (05/28/2023) Received from [facility] [place] [facility] Fear of [...] Renny Orlando DPM documented in this encounter [facility] 12-17-2023 History of Present illness Narrative Patient: Adrianna [...] Partner Violence: Unknown (05/28/2023) Received from [facility] [place] [facility] Fear of [...] Renny Orlando DPM documented in this encounter [facility] 12-15-2023 History of Present illness Narrative Images from the original note were not included. Sandeep Pleitez NP Chief Complaint Patient presents with Migraine Subjective Adrianna Buitrago is a 73 y.o. female. HPI [...] spray; Commonly known as: Astelin; Azelastine HCl [facility] Aerosphere 160-9-4.8 MCG/ACT aerosol; Generic drug: Japhtlq-Jobcyqqxsmw-Mketmukmjg budesonide 1 MG/2ML nebulizer solution; Commonly known [...] wrist extensors , wrist flexor , and sweatband decorating machine operator strength 5/5. LUE strength deltoid , biceps , triceps , wrist extensors , wrist flexor , and sweatband decorating machine operator strength 5/5. RLE strength iliopsoas, quadriceps, tibialis [...] reflex 1+. LLE Knee reflex 1+. Coordination: Imsujj-ao-lohp testing normal. Rapid alternating movements are normal. [...] if needed for new or worsening symptoms. Sandeep Pleitez NP [facility] Neurology documented in this encounter [facility] 12-03-2023 History of Present illness Narrative Patient: Adrianna [...] Partner Violence: Unknown (05/28/2023) Received from [facility] [place] [facility] Fear of [...] Renny Orlando DPM documented in this encounter [facility] 06-09-2023 Note Chief Complaint consultation for colonoscopy [...] 1 tab(s), Oral, Daily Flonase 0.05 mg/inh [place], 2 spray(s), Nasal, Daily lactulose 10 g/15 [...] mEq= 1 tab(s (more content not included)... [facility] Comment on above: Result Comment: Elec tronically [...] nostril in the morning and at bedtime. qblsdbunuu-hajvaxmb-klgeikuarq (Breztri Aerosphere) 160-9-4.8 mcg/actuation HFA aerosol inhaler [...] Interventional Cardiology Univ (more content not included)... [facility] 04-10-2023 Note Patient here for 6 m [...] All other systems reviewed and are negative. [facility] 11-25-2022 Note Remains stable, ches t pain resolved and no acute concerns currently [facility] 11-25-2022 Note Current echo 05/2022- Mild MR and no concerning symptoms currently [facility] 11-25-2022 Note Current echo 05/2022- Mild MR and no concerning symptoms currently [facility] 11-25-2022 Note Continue pravastatin 10 mg daily and fenofibrate- pt states PCP orders her annual labs F/U with PCP [facility] 11-25-2022 Note UTP CARDIOLOGY PROGR ESS NOTE [...] Prior to Visit Medication Sig Dispense Refill nvnoaqnzjb-kkcoqlxl-ozvzkopzee (Breztri Aerosphere) 160-9-4.8 mcg/actuation HFA aerosol inhaler [...] no acute concerns currently RTC 4-6 months [facility] 05-26-2022 Note CARDIAC STRESS TEST Requesting Physician: [...] +7.5 is associated with low risk for salvage determiner cardiac events. 4. Myocardial perfusion images will be reported separately. [facility] 05-14-2022 Note Cardiology Follow Up Progress Note [...] Prior to Visit Medication Sig Dispense Refill fgfqatjdzc-hsjrnejj-zmxeqofddc (Breztri Aerosphere) 160-9-4.8 mcg/actuation HFA aerosol inhaler [...] red flag symptoms. (more content not included)... [facility] 05-14-2022 Note Patient here for 6 m o follow up valve regurgitation and hyperlipidemia. C/o intermittent chest pressure. She says sometimes she takes aspirin to relieve the pain if it lasts more then a few minutes. Occurs at rest, as well as exercise, but she states it's no worse with exercise. [facility] Evaluation note Diagnosis Verruca plantaris- Primary Plantar [...] (CMS/HCC)- Primary [facility] Diagnosis Mild intermittent asthma without complication (CMS/HCC) documented in this encounter [facility] Summary [...] section and content) DATE CREATED AUTHOR 08/17/2021 [facility] dical Specialist DATE CREATED AUTHOR AUTHOR'S ORGANIZ ATION 07/05/2022 [facility] DATE CREATED AUTHOR AUTHOR'S ORGANIZ ATION 05/11/2023 [facility] DATE CREATED AUTHOR AUTHOR'S ORGANIZ ATION 08/10/2023 [facility] DATE CREATED AUTHOR AUTHOR'S ORGANIZ ATION 06/18/2024 [facility] dical Specialists EPIC Care Teams (unrecognized sec tion and content) Patch Washer Relationship Specialty Start Date End Date Jenny Burris MD [address] [place] [address] PCP - General Family Medicine 04/30/23 Patch Washer Relationship Specialty Start Date End Date Jenny Burris MD [address] [place] [address] PCP - General Family Medicine 04/30/23 Patch Washer Relationship Specialty Start Date End Date Jenny Burris MD [address] [place] [address] PCP - General Family Medicine 04/30/23 Patch Washer Relationship Specialty Start Date End Date Jenny Burris MD [address] [place] [address] PCP - General Family Medicine 04/30/23 Patch Washer Relationship Specialty Start Date End Date Jenny Burris MD [address] [place] [address] PCP - General Family Medicine 04/30/23 Patch Washer Relationship Specialty Start Date End Date Jenny Burris MD [address] [facility] [place] [address] PCP - General Family Medicine 04/30/23 Patch Washer Relationship Specialty Start Date End Date Jenny Burris MD [address] [facility] [place] [address] PCP - General Family Medicine 04/30/23 Patch Washer Relationship Specialty Start Date End Date Jenny Burris MD [address] [facility] [place] [address] PCP - General Family Medicine 04/30/23 Patch Washer Relationship Specialty Start Date End Date Jenny Burris MD [address] [facility] [place] [address] PCP - General Family Medicine 04/30/23 Patch Washer Relationship Specialty Start Date End Date Jenny Burris MD [address] [facility] [place] [address] PCP - General Family Medicine 04/30/23 Patch Washer Relationship Specialty Start Date End Date Jenny Burris MD PCP - General Family Medicine 04/30/23 Reason for Visit (unrecogniz ed section and content) Reason Comments Follow-up rt lesions Reason Comments Lesion Removal Reason Comments Lesion Removal B/L lesions Reason Comments Lesion Removal F/U B/L lesions Reason Comments Toenail Care Non DM Nails Reason Comments Migraine Reason Comments Follow-up 2wk rt lesions Reason Comments Toenail Care Non dm nail care Reason Comments Med Refill FOR RECORDS PERTAINING TO PATIENTS WHO ARE [...] BE BASED ON THE PRIMARY CLINICAL RECORDS. [facility]. provides no warranty or guarantee of the accuracy or completeness of information in this document.
--- OUTSIDE RECORDS SUMMARY | 2024-08-31 06:44 | XMS_ITS | Referral Summary ---
Demographics Address [address] [place] [address] Home Phone Preferred Language en Marital Status Adventist Affiliation Unknown Race White Ethnic Group Not or Lati no Author Organization [facility] Address [address] [place] [address] Care Team Providers Care Gaggerman Name Role Phone Miko Burris MD Primary Care Provider [phone] Allergies Active Allergy Reactions Criticality Noted Date [...] 04/29/2024 10:02 AM EST Plan of Treatment Upcoming Encounters Date Type Department Care Team (Late st Contact Info) Description 11/07/2024 9:00 AM EDT Office Visit [facility] [address] [place] [address] Azam Garcia MD [address] [facility] [address] [facility] [place] [address] Guarantor Name Account Type Relation to Patient Date of Phone Billing Address Adrianna Buitrago Personal/Family Self 1950 [address] [place] [address] Care Teams Gaggerman Relationship Specialty Start Date End Date Miko Burris MD [address] [facility] [place] [address] PCP - General 05/14/22
--- OUTSIDE RECORDS SUMMARY | 2024-08-31 06:44 | XMS_ITS | Encounter Summary ---
Author Organization [facility] Address [address] [place] [address] Care Team Providers Care Kiss Setter Hand Name Role Phone Miko Burris MD Primary Care Provider [phone] Encounter Details Date Type Department Care Team ([facility] Contact Info) Description 08/25/2024 Telephone [facility] [address] [facility] [address] [place] [address] Renny Orlando, DPSobia [address] [facility] [address] [place] [address] Social History Tobacco Use Types Packs/Day Years [...] Visit [facility] [address] [place] [address] Lolis Salcido NP [address] [place] [address] 01/11/2025 9:20 AM EDT Office Visit [facility] [address] [place] [address] Charles Faith MD [address] [place] [address] documented as of this encounter Visit Diagnoses Not on filedocumented in this encounter Care Teams Kiss Setter Hand Relationship Specialty Start Date End Date Miko Burris MD PCP - General Family Medicine 04/30/23 documented as of this encounter
--- OUTSIDE RECORDS SUMMARY | 2024-08-31 06:44 | XMS_ITS | Clinical Summary ---
Demographics Address [address] [place] [address] Home Phone Preferred Language en Marital Status Restorationist Affiliation Unknown Race White Ethnic Group Not or Lati no Author Organization [facility] Address [address] [place] [address] Care Team Providers Care Repairer Typewriter Name Role Phone Miko Burris MD Primary Care Provider [phone] Allergies Active Allergy Reactions Criticality Noted Date [...] Description 11/07/2024 9:00 AM EDT Office Visit [facility] [address] [place] [address] Azam Garcia MD [address] [facility] [place] [place] [address] Health Maintenance Due Date Last Done Comments [...] age to complete this topic Care Teams Repairer Typewriter Relationship Specialty Start Date End Date Miko Burris MD [address] [facility] [place] [address] PCP - General 05/14/22
--- OUTSIDE RECORDS SUMMARY | 2024-08-31 06:44 | XMS_ITS | Clinical Summary ---
Author Organization [facility] Address [address] [place] [address] Care Team Providers Care Artificial Breast Fabricator Name Role Phone Miko Burris MD Primary Care Provider [phone] Allergies Active Allergy Reactions Criticality Noted Date [...] Team Description 08/25/2024 Telephone [facility] [address] [facility] 120 [place] [address] Renny Orlando DPM 08/12/2024 Refill [facility] [address] [place] [address] Charles Faith MD Mild intermittent asthma without complication ([facility]) 06/29/2024 Telephone [facility] [address] [place] [address] Renny Russo MA 06/16/2024 9:00 AM EDT Procedure Visit [facility] [address] [facility] [address] [place] [address] Renny Orlando DPM Verruca plantaris (Primary Dx); Foot pain, right; Foot pain, left 06/16/2024 Bamboo flowsheet [facility] [address] [place] [address] Renny Orlando DPM 06/16/2024 Travel [...] Office Visit [facility] [address] [place] [address] Lolis Salcido NP [address] [place] [address] 01/11/2025 9:20 AM EDT Office Visit [facility] [address] [place] [address] Charles Faith MD [address] [place] [address] Health Maintenance Due Date Last Done Comments CT Colonography 1950 Colonoscopy 1950 Colorectal Cancer Screening 1950 FIT-DNA 1950 FIT 1950 FOBT 1950 Sigmoidoscopy 1950 Mammogram 1989 Pneumococcal Vaccine: 65+ Years (2 of 2 - PPSV23) 10/0510/27/2017 Influenza Vaccine (Season Ended) 2024 Insurance [employer] Care Teams Artificial Breast Fabricator Relationship Specialty Start Date End Date Miko Burris MD PCP - General Family Medicine 04/30/23
--- NOTE | 2024-08-31 07:14 | ED.GENADUL1 ---
HPI HPI - General Adult General Chief complaint: Nausea/Vomiting/Diarrhea Stated complaint: FLU LIKE SYMPTOMS Time Seen by Provider: 08/31/24 07:02 Source: patient Mode of arrival: walk-in Limitations: no limitations History of Present Illness HPI narrative: 73-year-old female presents to the emergency department for nausea vomiting and diarrhea. It began about midnight. She states her diarrhea was black. She has been on iron pills recently because she was going to donate blood. She did not take Pepto-Bismol. She is also been having some upper abdominal pain intermittently and had an appointment with her personal physician at 9:00 this morning. No fever or hematemesis. Related Data Home Medications ?Medication ?Instructions ?Recorded ?Confirmed azelastine 137 mcg (0.1 %) nasal 137 mcg intranasal DAILY 07/08/23 08/31/24 spray budesonide 1 mg/2 mL suspension 1 mg inhalation DAILY 07/08/23 08/31/24 for nebulization clonidine HCl 0.1 mg tablet 0.1 mg PO Q12H 07/08/23 08/31/24 fenofibrate 160 mg tablet 160 mg PO DAILY 07/08/23 08/31/24 furosemide 20 mg tablet 20 mg PO DAILY 07/08/23 08/31/24 lactulose 10 gram/15 mL oral 20 g PO BID 07/08/23 08/31/24 solution levothyroxine 100 mcg tablet 100 mcg PO DAILY 07/08/23 08/31/24 omeprazole 40 mg capsule,delayed 40 mg PO DAILY 07/08/23 08/31/24 release potassium chloride 10 mEq 10 meq PO TID 07/08/23 08/31/24 tablet,extended release pravastatin 10 mg tablet 10 mg PO DAILY 07/08/23 08/31/24 aspirin 81 mg tablet,delayed 81 mg PO DAILY 07/24/23 08/31/24 release (Adult Aspirin Regimen) budesonide 160 mcg-glycopyr 9 2 inh inhalation BID 07/24/23 08/31/24 mcg-formot 4.8 mcg/actuation HFA inhaler (Breztri Aerosphere) cetirizine 10 mg tablet 10 mg PO DAILY 07/24/23 08/31/24 denosumab 60 mg/mL subcutaneous 60 mg subcut .every 6 months 07/24/23 08/31/24 syringe (Prolia) fluticasone propionate 50 2 spray intranasal DAILY 07/24/23 08/31/24 mcg/actuation nasal spray,suspension liothyronine 5 mcg tablet (Cytomel) 5 mcg PO DAILY 07/24/23 08/31/24 multivitamin 1 tab PO DAILY 07/24/23 08/31/24 ubrogepant 100 mg tablet (Ubrelvy) 100 mg PO DAILY 07/24/23 08/31/24 albuterol sulfate 2.5 mg/0.5 mL 2.5 mg inhalation TID-QID PRN 07/27/23 08/31/24 solution for nebulization shortness of breath or wheezing budesonide 160 mcg-glycopyr 9 2 inh inhalation DAILY 01/11/24 01/11/24 mcg-formot 4.8 mcg/actuation HFA inhaler (Breztri Aerosphere) calcium 315 mg (as 1 tab PO DAILY 01/11/24 08/31/24 citrate)-vitamin D3 5 mcg (200 unit) tablet (Calcium Citrate + D) docosahexaenoic acid (dha)-epa 120 1 cap PO DAILY 01/11/24 08/31/24 mg-180 mg capsule (Fish Oil) [id number] 1 tab PO DAILY 01/11/24 08/31/24 750 mg-100 mg-125 mg-1.65 mg tablet (Glucosamine Chondroit Complx Advan) Previous Rx's ?Medication ?Instructions ?Recorded ondansetron 4 mg disintegrating 4 mg PO Q6H PRN nausea and 08/31/24 tablet vomiting #20 tabs Allergies Allergy/AdvReac Type Severity Reaction Status Date / Time amoxicillin Allergy Unknown itching Verified 08/31/24 06:46 morphine Allergy Unknown itching Verified 08/31/24 06:46 Opioid HPI Opioid Management Most Recent Opioid Data: Last Pain Scale 2 Today, 06:41 Review of Systems ROS Narrative A ten point review of systems is negative except as noted above. [facility] Medical History (Updated 08/31/24 @ 08:14 by Gerardo Arshad MD) COPD (chronic obstructive pulmonary disease) ?J44.9 - Chronic obstructive pulmonary disease, unspecified (ICD-10) COVID ?U07.1 - COVID-19 (ICD-10) Chronic bronchitis ?J42 - Unspecified chronic bronchitis (ICD-10) Venous insufficiency ?I87.2 - Venous insufficiency (chronic) (peripheral) (ICD-10) Tricuspid valve disease ?I07.9 - Rheumatic tricuspid valve disease, unspecified (ICD-10) Peripheral vascular disease ?I73.9 - Peripheral vascular disease, unspecified (ICD-10) Osteoporosis ?M81.0 - Age-related osteoporosis without current pathological fracture (ICD-10) Mitral valve insufficiency ?I34.0 - Nonrheumatic mitral (valve) insufficiency (ICD-10) Migraines ?G43.909 - Migraine, unspecified, not intractable, without status migrainosus (ICD-10) Lumbar radiculopathy ?M54.16 - Radiculopathy, lumbar region (ICD-10) Hypothyroidism ?E03.9 - Hypothyroidism, unspecified (ICD-10) Hyperlipidemia ?E78.5 - Hyperlipidemia, unspecified (ICD-10) Hypercholesteremia ?E78.00 - Pure hypercholesterolemia, unspecified (ICD-10) GERD (gastroesophageal reflux disease) ?K21.9 - Gastro-esophageal reflux disease without esophagitis (ICD-10) Hypertension ?I10 - Essential (primary) hypertension (ICD-10) Cervical disc disease ?M50.90 - Cervical disc disorder, unspecified, unspecified cervical region (ICD-10) Heart murmur ?R01.1 - Cardiac murmur, unspecified (ICD-10) Asthma ?J45.909 - Unspecified asthma, uncomplicated (ICD-10) Surgical History (Updated 08/05/23 @ 08:47 by Carolina Kruger) H/O foot surgery ?Z98.890 - Other specified postprocedural states (ICD-10) History of total abdominal hysterectomy and bilateral salpingo-oophorectomy ?Z90.710 - Acquired absence of both cervix and uterus (ICD-10) ?Z90.722 - Acquired absence of ovaries, bilateral (ICD-10) ?Z90.79 - Acquired absence of other genital organ(s) (ICD-10) History of nasal septoplasty ?Z98.890 - Other specified postprocedural states (ICD-10) Hx of cataract surgery ?Z98.49 - Cataract extraction status, unspecified eye (ICD-10) History of colonoscopy ?Z98.890 - Other specified postprocedural states (ICD-10) Family History (Updated 07/24/23 @ 14:02 by Carolina Kruger) Other Family history of COPD (chronic obstructive pulmonary disease) Family history of cancer Family history of hypertension Heart disease Social History (Updated 07/27/23 @ 14:44 by Chelo Fulton RN) Within the past year, how often did you have a drink containing alcohol: never Score interpretation: A score less than 3 is consistent with normal alcohol consumption. 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 General: The patient appears well and in no apparent distress. Patient is resting comfortably on cart. Skin: Warm, dry, no pallor noted. There is no rash noted. Head: Normocephalic, atraumatic Eye: Normal conjunctiva, no drainage Ears, Nose, Mouth, and Throat: oral mucosa is moist. Nares patent. Cardiovascular: Regular Rate and Rhythm Respiratory: Patient is in no distress, no accessory muscle use, lungs are clear to auscultation, no wheezing, rales or rhonchi Back: non-tender GI: Soft and nontender no masses. Rectal exam shows no masses. Musculoskeletal: The patient has no evidence of calf tenderness, no pitting edema, symmetrical pulses noted bilaterally Neurological: A&O, normal speech Psychiatric: Cooperative Constitutional Vital Signs, click to edit/add: Last Vital Signs Temp 98.5 F 08/31/24 06:41 Pulse 99 H 08/31/24 06:41 Resp 18 08/31/24 06:41 BP 132/83 08/31/24 06:41 Pulse Ox 99 08/31/24 06:41 O2 Del Method Room Air 08/31/24 06:41 Course Vital Signs Vital signs: Vital Signs Temperature 98.5 F 08/31/24 06:41 Pulse Rate 99 H 08/31/24 06:41 Respiratory Rate 18 08/31/24 06:41 Blood Pressure 132/83 08/31/24 06:41 Pulse Oximetry 99 08/31/24 06:41 Oxygen Delivery Method Room Air 08/31/24 06:41 Temperature 98.5 F 08/31/24 06:41 Pulse Rate 99 H 08/31/24 06:41 Respiratory Rate 18 08/31/24 06:41 Blood Pressure 132/83 08/31/24 06:41 Pulse Oximetry 99 08/31/24 06:41 Oxygen Delivery Method Room Air 08/31/24 06:41 Medical Decision Making MDM Narrative Medical decision making narrative: Her laboratory analysis is negative and she does not have blood in her stool. The black color is certainly from the iron pill she has been taking recently. She is tolerating p.o. liquids. I spoke to Dr. Martínez and the patient will be discharged and she has an appointment with him that she will keep within the hour. Treatment diagnosis and follow-up were discussed with the patient. Differential Diagnosis Differential Diagnosis: Gastroenteritis, GI bleed, dehydration Lab Data Lab results reviewed: Yes I reviewed the patient's lab results Labs: Lab Results 08/31/24 08/31/24 Range/Units 07:00 07:10 WBC 12.3 H (4.0-11.0) 10^3/uL RBC 4.42 (4.20-5.40) 10^6/uL Hgb 13.9 (12.0-16.0) g/dL Hct 41.8 (36.0-48.0) % MCV 94.6 (81.0-99.0) fL MCH 31.4 (26.7-34.0) pg MCHC 33.3 (29.9-35.2) g/dL RDW 13.7 (11.0-15.0) % Plt Count 298 (150-450) 10^3/uL MPV 11.0 (9.5-13.5) fL Seg Neuts % (Manual) 90.0 H (43.0-75.0) Band Neutrophils % 2.0 (0-5) % Lymphocytes % (Manual) 3.0 L (20.5-60.0) % Monocytes % (Manual) 5.0 (1.7-12.0) % Eosinophils % (Manual) 0.0 L (0.9-7.0) % Basophils % (Manual) 0.0 L (0.2-2.0) % Neutrophils # (Manual) 11.07 H (1.4-6.5) 10^3/uL Band Neutrophils # 0.2 (0.0-0.3) 10^3/uL Lymphocytes # (Manual) 0.36 L (1.20-3.80) 10^3/uL Monocytes # (Manual) 0.61 (0.30-0.80) 10^3/uL Eosinophils # (Manual) 0.00 (0.00-0.70) 10^3/uL Basophils # (Manual) 0.00 (0.00-0.10) 10^3/uL Sodium 144 (136-145) mmol/L Potassium 4.0 (3.5-5.1) mmol/L Chloride 105 (98-107) mmol/L Carbon Dioxide 26.8 (21.0-32.0) mmol/L Anion Gap 16.2 BUN 35.0 H (7.0-18.0) mg/dL Creatinine 1.56 H (0.55-1.02) mg/dL Est GFR ( Amer) 39 L (>=60 mL/min/1.73m^2) Est GFR (Non-Af Amer) 32 L (>=60 mL/min/1.73m^2) BUN/Creatinine Ratio 22.4 Glucose 124 H (74-106) mg/dL Calcium 9.7 (8.5-10.1) mg/dL Total Bilirubin 0.7 (0.2-1.0) mg/dL Direct Bilirubin 0.2 (0.0-0.2) mg/dL AST 35 (15-37) U/L ALT 39 (14-59) U/L Alkaline Phosphatase 46 (46-116) U/L Total Protein 7.0 (6.4-8.2) g/dL Albumin 3.8 (3.4-5.0) g/dL Globulin 3.2 g/dL Albumin/Globulin Ratio 1.2 Amylase 84 (25-115) U/L Lipase 49.0 (16.0-77.0) U/L Stool Occult Blood Negative Discharge Plan Discharge Chief Complaint: Nausea/Vomiting/Diarrhea Clinical Impression: Nausea, vomiting, and diarrhea Patient Disposition: Home, Self-Care Time of Disposition Decision: 08:14 Condition: Good Mode of Transportation: Private Vehicle Prescriptions / Home Meds: New ondansetron 4 mg tablet,disintegrating 4 mg PO Q6H PRN (Reason: nausea and vomiting) Qty: 20 0RF No Action Breztri Aerosphere 160-9-4.8 mcg/actuation HFA aerosol inhaler 2 inh inhalation DAILY calcium citrate-vitamin D3 [Calcium Citrate + D] 315 mg-5 mcg (200 unit) tablet 1 tab PO DAILY Fish Oil 120-180 mg capsule 1 cap PO DAILY Glucos Chond Cplx Advanced 750 mg-100 mg- 125 mg-1.65 mg tablet 1 tab PO DAILY aspirin [Adult Aspirin Regimen] 81 mg tablet,delayed release (DR/EC) 81 mg PO DAILY Breztri Aerosphere 160-9-4.8 mcg/actuation HFA aerosol inhaler 2 inh inhalation BID cetirizine 10 mg tablet 10 mg PO DAILY liothyronine [Cytomel] 5 mcg tablet 5 mcg PO DAILY fluticasone propionate 50 mcg/actuation spray,suspension 2 spray intranasal DAILY Rx Instructions: administer into each nostril Ubrelvy 100 mg tablet 100 mg PO DAILY Prolia 60 mg/mL syringe 60 mg subcut .every 6 months Patient Comments: last dose was in last month multivitamin Tablet 1 tab PO DAILY albuterol sulfate 2.5 mg/0.5 mL solution for nebulization 2.5 mg inhalation TID-QID PRN (Reason: shortness of breath or wheezing) clonidine HCl 0.1 mg tablet 0.1 mg PO Q12H potassium chloride 10 mEq tablet extended release 10 meq PO TID omeprazole 40 mg capsule,delayed release(DR/EC) 40 mg PO DAILY levothyroxine 100 mcg tablet 100 mcg PO DAILY pravastatin 10 mg tablet 10 mg PO DAILY furosemide 20 mg tablet 20 mg PO DAILY azelastine 137 mcg (0.1 %) aerosol,spray 137 mcg INTRANASAL DAILY lactulose 10 gram/15 mL solution 20 g PO BID fenofibrate 160 mg tablet 160 mg PO DAILY budesonide 1 mg/2 mL suspension for nebulization 1 mg inhalation DAILY Print Language: Slovak Instructions: Acute Nausea and Vomiting (ED), Acute Diarrhea (ED) Referrals: Miko Burris MD [Primary Care Provider, Family Practice] - 1 week
--- NOTE | 2024-08-31 07:19 | PC.NURSE ---
pt states on and off for months she's had flu-like sx - chills, N/V/D, body aches. she states they will last a day and then go away. another episode started last night around midnight. pt threw up green bile and then states she had black diarrhea x2. does take an iron pill almost every day, no pepto. does admit to having upper abd aching intermittent
[2024-08-31 07:20] LABS: Hematocrit 41.8 % (36.0-48.0); Hemoglobin 13.9 g/dL (12.0-16.0); Mean Corpuscular HGB Conc 33.3 g/dL (29.9-35.2); Mean Corpuscular Hemoglobin 31.4 pg (26.7-34.0); Mean Corpuscular Volume 94.6 fL (81.0-99.0); Platelet Count 298 10^3/uL (150-450); Red Blood Count 4.42 10^6/uL (4.20-5.40); Red Cell Distribution Width 13.7 % (11.0-15.0); White Blood Count 12.3 10^3/uL (4.0-11.0)
[2024-08-31 07:25] LABS: Internal Control Within Normal Limits; Occult Blood Negative
[2024-08-31] MEDS: ONDANSETRON PF 4 MG/2 ML VIAL IV (07:26)
[2024-08-31] MEDS: 0.9 % SODIUM CHLORIDE 1,000 ML 125 ML IV (07:26)
[2024-08-31 07:34] LABS: Alanine Aminotransferase 39 U/L (14-59); Albumin Globulin Ratio 1.2; Albumin Level 3.8 g/dL (3.4-5.0); Alkaline Phosphatase 46 U/L (46-116); Amylase 84 U/L (25-115); Anion Gap 16.2; Aspartate Amino Transferase 35 U/L (15-37); BUN Creatinine Ratio 22.4; Bilirubin Direct 0.2 mg/dL (0.0-0.2); Bilirubin Total 0.7 mg/dL (0.2-1.0); Calcium 9.7 mg/dL (8.5-10.1); Carbon Dioxide 26.8 mmol/L (21.0-32.0); Chloride 105 mmol/L (98-107); Estimated GFR (African America 39 (>=60 mL/min/1.73m^2); Estimated GFR (Non-African Ame 32 (>=60 mL/min/1.73m^2); Globulin 3.2 g/dL; Glucose 124 mg/dL (74-106); Sodium 144 mmol/L (136-145)
[2024-08-31 07:39] LABS: Band Neutrophils Absolute 0.2 10^3/uL (0.0-0.3); Lymphocytes Absolute Manual 0.36 10^3/uL (1.20-3.80); Monocytes Absolute Manual 0.61 10^3/uL (0.30-0.80); Segmented Neut Absolute Manual 11.07 10^3/uL (1.4-6.5)
--- NOTE | 2024-08-31 07:59 | PC.NURSE ---
fluid challenge started at this time - water given
== END 2024-08-31 08:34 | disposition home or self-care (01) ==
PROVIDERS: Emergency Provider Emergency Medicine; PCP Family Medicine
DX: Z90.710 Acquired absence of both cervix and uterus (principal); R19.7 Diarrhea, unspecified; R11.2 Nausea with vomiting, unspecified; Z90.722 Acquired absence of ovaries, bilateral; Z90.79 Acquired absence of other genital organ(s); Z87.891 Personal history of nicotine dependence
CPT/HCPCS: 36415; 80048; 80076; 82150; 83690; 85007; 85027; 96361; 96374; 99284; G0328; J2405

== ENCOUNTER 2024-11-23 08:57 | Outpatient (OUT) | payer MEDICARE, OTHER, SELFPAY ==
--- OUTSIDE RECORDS SUMMARY | 2024-09-20 10:24 | XMS_ITS ---
Author Organization [facility] [place] Address [address] [place] [address] Care Team Providers Care Director Speech Language Name Role Phone Cornelio Burris Primary Care Provider REASON FOR VISIT llanes Encounters Encounter Location Date Provider Diagnosis [facility] [address] [place] [address] 09/20/2024 Cornelio Burris Plan Of Treatment Next Appt Details Provider Name:Cornelio Burris, 08:30:00 AM, [address] [facility], [facility] [place], [address], Progress Notes * Adrianna BUITRAGO DDOB:[birth year] (73 yo F)Acc No.[id number]:09/20/2024 Patient: Oliverio Adrianna SILVERIO :1950 A ge:73 Y S ex:Female Address:[facility] [address] [place] [address] * true * Date: Generated for Printi ng/Faxing/eTransmitting on: 0 11/23/2024 09:03 AM EDT
--- OUTSIDE RECORDS SUMMARY | 2024-11-08 04:30 | XMS_ITS ---
Author Organization [facility] in [place] Address [address] [place] [address] Care Team Providers Care Medical Cash Poster Name Role Phone Cornelio Burris Primary Care Provider [phone] Allergies Allergen (clinical drug ingredient) Drug/Non Drug [...] QOD, PRN for 90 days Active Ipratropium Seymour 0.02 % 2.5 mL as needed Inhalation [...] 11/08/2024 Encounters Encounter Location Date Provider Diagnosis [facility] [address] [place] [address] 11/08/2024 Cornelio Burris Encounter for [employer] annual wellness exam Z00.00 Assessments Encounter Date Diagnosis (ICD Code) Assessment Notes Treatment Notes Treatment Clinical Notes Section Notes 11/08/2024 Encounter for Medicare annual wellness exam (ICD-10 - Z00.00) Plan Of Treatment Next Appt Details Provider Name:Cornelio Burris, 08:30:00 AM, [address] [place], [address], Progress Notes * Adrianna BUITRAGO DDOB:[birth year] (74 yo F)Acc No.[id number]:11/08/2024 Progress Note Patient: Adrianna BRAGG Provider: Nany Burris ([facility])MD :1950 A ge:74 Y S ex:Female Date:11/08/2024 Address:[facility] [address] [place], [id number] Check In:08:10 AM ESTCheck O ut:08:59 AM EST Subjective: * Chief Complaints: * Sobia Copeland * HPI: Sobia lyman Annual Wellness Visit: Type of Visit: S ailin Annual Wellness Visit (SAWV).? Visual Acuity: N /A. Other Providers of Care: C are Team reviewed with patient: Levon dugan, and updates made in [place] of Care Physical Activity: D o you [...] o you have a Durable Power of Varnish Blender? Y es W ould you like to [...] in a a tent, in an overnight skilled nursing, or temporarily in someone else's home??No A [...] Vision Screening Y es, patient sees regular handbag frames inspector or promotions team leader. DO NOT USE - Vision Screening Questionnaire [...] Hospitalization * Family History: F ather: , [place], diagnosed with Unspecified heart disease. M other: , lung disease, high cholesterol, [place], diagnosed with Unspecified essential hypertension, Unspecified heart [...] INTO EACH NOSTRIL ONCE A DAY Breztri Aerosphere(Nkbxvzx-Mbnmmgahxne-Npgahvcinh) 160-9-4.8 MCG/ACT Aerosol 2 puffs Inhalation once [...] Tablet 1 tablet Orally QOD, PRN Ipratropium Seymour 0.02 % Solution 2.5 mL as needed [...] EACH NOSTRIL ONCE A DAY Taking Breztri Aerosphere(Yvfqbit-Cyssqptijqu-Tnogddswcg) 160-9-4.8 MCG/ACT Aerosol 2 puffs Inhalation once [...] 1 tablet Orally QOD, PRN Taking Ipratropium Seymour 0.02 % Solution 2.5 mL as needed [...] (Check Out) true * Provider: Nany Burris ([facility])MD Date: 11/08/2024 Generated for Printi ng/Faxing/eTransmitting on: 11/23/2024 09:03 AM EDT History and Physical Notes * HPI (History of Present Illness) Category Sub-Category Detail Notes Category Not es Medicare Annual Wellness Visit Type of Visit: Subsequent Annual Wellness Visit (SAWV) DO NOT USE - Pain Assessment Do you experience p ain?: No DO NOT USE - Vision Screening Yes, patie nt sees regular handbag frames inspector or promotions team leader DO NOT USE - Hearing Screening Not [...] Do you have a Durable Power of Varnish Blender? : Yes Would you like to discuss this topic tod ay?: No Other Providers of Care: Care Team lakshmi cruz with patient:: Yes, and updates made in [place] of Care SDOH Agree to complete [facility] Determinants of Health questionnaire: Yes Within the [...] in a a tent, in an overnight skilled nursing, or temporarily in someone else's home?: No [...]
--- OUTSIDE RECORDS SUMMARY | 2024-11-17 13:30 | XMS_ITS | Encounter Summary ---
Author Organization [facility] Address [address] [place] [address] Care Team Providers Care Bender Helper Name Role Phone Miko Burris MD Primary Care Provider [phone] Reason for Visit * Reason Comments Follow-up lesion Encounter Details Date Type Department Care Team (Late st Contact Info) Description 11/17/2024 1:30 PM EDT Office Visit [facility] 112 [facility] [address] [place] [address] Renny Orlando, DPM [address] [facility] 5 [place] [address] Tinea corporis (Primary Dx); Verruca [...] b.I.d. basis., Disp: 30 mL, Rfl: 11 Leccqff-Modoohzddnb-Cfpykynbqq (Breztri Aerosphere) 160-9-4.8 MCG/ACT aerosol, Inhale 1 [...] Partner Violence: Unknown (05/28/2023) Received from [facility] Safety & Environment Fear of Current or [...] EDT Office Visit [facility] [address] [facility] [address] [place] [address] Renny Orlando DPM [address] [facility] 5 [place] [address] 01/11/2025 9:20 AM EDT Office Visit [facility] [address] [facility] [address] [place] [phone] Charles Faith MD [address] [facility] [address] [place] [address] documented as of this encounter Visit Diagnoses Diagnosis Tinea corporis- Primary Dermatophytosis of the body Verruca plantaris Plantar wart Foot pain, right Pain in soft tissues of limb Foot pain, left Pain in soft tissues of limb documented in this encounter Care Teams Bender Helper Relationship Specialty Start Date End Date Miko Burris MD [address] [facility] [place] [address] [phone] PCP - General Family Medicine 04/30/23 documented as of this encounter
--- OUTSIDE RECORDS SUMMARY | 2024-11-23 04:30 | XMS_ITS ---
Author Organization [facility] in [place] Address [address] [place] [address] Care Team Providers Care Numerical Control Drill Press Operator Name Role Phone Cornelio Burris Primary Care Provider [phone] Allergies Allergen (clinical drug ingredient) Drug/Non Drug [...] QOD, PRN for 90 days Active Ipratropium Nogal 0.02 % 2.5 mL as needed Inhalation [...] 11/23/2024 Encounters Encounter Location Date Provider Diagnosis [address] [address] 11/23/2024 Cornelio Hoy Hypertension I10 ; Hypothyroidism [...] Provider Name:Cornelio Burris, 08:30:00 AM, [address] [place], [address], Progress Notes * Adrianna BUITRAGO DDOB:[birth year] (74 yo F)Acc No.[id number]:11/23/2024 UNLOCKED PROGRESS NOTE Progress Note Patient: Adrianna BRAGG Provider: Nany Burris ([facility])MD :1950 A ge:74 Y S ex:Female Date:11/23/2024 Address:[facility] [address] [facility] Check In:08:13 AM ESTCheck O ut:08:39 AM EST Subjective: * Chief Complaints: * 1 . 6mon. 2. Migraines have been worse- is having to take Ubrelvy BID most days - does see Neurology next month. * HPI: G eneral: Migraine acting up [...] enies. S wollen joints d enies. * Medical History: V enous insufficiency, Lumbar radiculopathy, Low back pain, Migraine with aura, Cervical disc disease, Degenerative arthritis, Osteopenia, Senile cataract of left eye, unspecified age-related cataract type, Cardiac murmur, Chest pain, Degeneration of intervertebral disc of lumbar region, Hypercholesterolemia, Hypertension, Tricuspid valve disorder, Hypothyroidism, Allergic rhinitis, Mitral regurgitation, GERD (gastroesophageal reflux disease). * Surgical History: T AH and DREW , sinus surgery , right foot x2 , nasal septoplasty , Lens implant OU , Colonoscopy- Dr. Espinoza 08/05/2023. * Hospitalization/Major Diagno stic Procedure: D enies Past Hospitalization. * Family History: F ather: , [place], diagnosed with Unspecified heart disease. M other: , lung disease, high cholesterol, [place], diagnosed with Unspecified essential hypertension, Unspecified heart disease. B rother(s): pancreatic and colon cancer, diagnosed with Other malignant neoplasm of unspecified site, Unspecified heart disease. * Social History: T obacco Use: T obacco Use/Smoking P atient is a f ormer smoker W hen did you start smoking? 0 04/06/1964 W hen did you stop smoking? 0 04/06/2006 * Medications: T aking Aspirin Low Dose(Aspirin) 81 MG Tablet Delayed Release 1 tablet Orally Once a day , Taking Azelastine HCl 137 MCG/SPRAY Solution SPRAY 2 SPRAYS INTO EACH NOSTRIL ONCE A DAY , Taking Breztri Aerosphere(Ceapgjy-Sxelkwgfpmp-Dzkypkhwjy) 160-9-4.8 MCG/ACT Aerosol 2 puffs Inhalation once daily as needed , Taking Budesonide 1 MG/2ML Suspension 1 mL Inhalation Once a day Dx: COPD and Asthma, Taking cloNIDine HCl 0.1 MG Tablet 1 tablet Orally twice daily , Taking Cytomel(Liothyronine Sodium) 5 MCG Tablet 1 tablet on an empty stomach Orally Once a day , Taking Fenofibrate 160 MG Tablet 1 tablet Orally Once a day , Taking Fluticasone Propionate 50 MCG/ACT Suspension 2 spray in each nostril Nasally Once a day , Taking Furosemide 20 MG Tablet 1 tablet Orally QOD, PRN , Taking Ipratropium Nogal 0.02 % Solution 2.5 mL as needed Inhalation QID As needed, Taking Jobst 30-40mmHg Compression Sm(Elastic Bandages & Supports) - Miscellaneous as directed dx:venous insufficiency qd , Taking Lactulose 10 GM/15ML Solution 30ml Oral twice daily as needed , Notes to Pharmacist: PRN, Taking Levothyroxine Sodium 100 MCG Tablet 1 tablet Orally Once a day , Taking Nebulizer/Tubing/Mouthpiece - Kit as directed , Taking Omeprazole 40 MG Capsule Delayed Release 1 tablet Orally Once a day , Taking Potassium Chloride ER 10 MEQ Tablet Extended Release 1 tablet Orally three times daily , Taking Pravastatin Sodium 10 MG Tablet 1 tablet Orally Once a day , Taking Prolia(Denosumab) 60 MG/ML Solution Prefilled Syringe as directed Subcutaneous , Taking Ubrelvy(Ubrogepant) 100 MG Tablet 1 tablet may take second dose at least 2 hours after first dose as needed Orally Once a day , Notes to Pharmacist: PRN, Discontinued levoFLOXacin 500 MG Tablet 1 tablet Orally Once a day , Medication List reviewed and reconciled with the patient * Allergies: M orphine: itching and swelling, Amoxicillin: itching. Objective: * Vitals: W t:126.2lbs, Ht: 63 [...] Codes: 3 079F DIAST BP 80-89 MM HG, 3075F SYST BP GE 130 - 139MM HG * * Electronic signature of Cornelio Burris MD, [phone] on 11/23/2024 at 09:03 AM EDT Sign off status: Pending Visit Status: Oliverio WAITE (Check Out) * Provider: Nany Burris (TTC)MD Date: 0 11/23/2024 Generated for Printi ng/Faxing/eTransmitting on: 0 11/23/2024 09:03 AM EDT History and Physical [...]
--- OUTSIDE RECORDS SUMMARY | 2024-11-23 09:02 | XMS_ITS | Encounter Summary ---
Author Organization [facility] Address [address] [place] [address] Care Team Providers Care Tight Cooper Name Role Phone Miko Burris MD Primary Care Provider [phone] Encounter Details Date Type Department Care Team (Late st Contact Info) Description 11/17/2024 Bamboo flowsheet [facility] [address] [place] [address] Renny Orlando DPM [address] [address] Social History Tobacco Use Types Packs/Day Years [...] EDT Office Visit [facility] [address] [place] [address] Renny Orlando DPM [address] [address] 01/11/2025 9:20 AM EDT Office Visit [facility] [address] [facility] [address] [place] [address] Charles Faith MD [address] [facility] [address] [place] [address] documented as of this encounter Visit Diagnoses Not on filedocumented in this encounter Care Teams Tight Cooper Relationship Specialty Start Date End Date Miko Burris MD [address] [place] [address] PCP - General Family Medicine 04/30/23 documented as of this encounter
--- OUTSIDE RECORDS SUMMARY | 2024-11-23 09:02 | XMS_ITS | Encounter Summary ---
Author Organization [facility] Address [address] [place] [address] Care Team Providers Care Tipple Engineer Name Role Phone Miko Burris MD Primary Care Provider [phone] Encounter Details Date Type Department Care Team (Latest Contact Info) Description 11/17/2024 Travel Social History Tobacco Use Types Packs/Day Years [...] EDT Office Visit [facility] [address] [facility] [address] [place] [address] Renny Orlando, DPSobia [address] [facility] [address] [place] [address] 01/11/2025 9:20 AM EDT Office Visit [facility] [address] [place] [address] [place] [address] Charles Faith MD [address] [place] [address] [place] [address] documented as of this encounter Visit Diagnoses Not on filedocumented in this encounter Care Teams Tipple Engineer Relationship Specialty Start Date End Date Miko Burris MD [address] [place] [address] PCP - General Family Medicine 04/30/23 documented as of this encounter
--- OUTSIDE RECORDS SUMMARY | 2024-11-23 09:02 | XMS_ITS | Encounter Summary ---
Author Organization [facility] Address [address] [place] [address] Care Team Providers Care Signal Operator Linguist Name Role Phone Miko Burris MD Primary Care Provider [phone] Encounter Details Date Type Department Care Team (Late Contact Info) Description 12/12/2022 Abstract [facility] [place] [facility] [address] [facility] [address] [place] [address] Charles Faith MD [address] [facility] [address] [place] [address] Social History Tobacco Use Types Packs/Day Years Used Date Smoking Tobacco: Former Cigarettes Q uit: 04/06/2006 Tobacco Cessation:Counseling Given: Not Answered Alcohol Use Standard Drinks/Week Comments Never 0 (1 standard drink = 0.6 oz pur e alcohol) Caffeine intake: none Comments Unknown Sex and Gender Information Value Date Recorded Sex Assigned at Not on file Legal Sex Female 6:45 PM EDT Gender Identity Not on file Sexual Orientation Not on file documented as of this encounter Plan of Treatment Upcoming Encounters Date Type Department Care Team (Late Contact Info) Description 12/08/2024 11:00 AM EDT Office Visit [facility] [address] [facility] [address] [place] [address] Renny Orlando DPM [address] [facility] [address] [place] [address] 01/11/2025 9:20 AM EDT Office Visit [facility] [address] [facility] [address] [place] [address] Charles Faith MD [address] [facility] [address] [place] [address] documented as of this encounter Visit Diagnoses Not on filedocumented in this encounter Care Teams Signal Operator Linguist Relationship Specialty Start Date End Date Miko Burris MD [address] [place] [address] PCP - General Family Medicine 04/30/23 documented as of this encounter
--- OUTSIDE RECORDS SUMMARY | 2024-11-23 09:03 | XMS_ITS | Patient Health Record ---
Author Organization [facility] Address [address] [place] [address] Care Team Providers Care Fire Loss Prevention Engineer Name Role Phone José Miguel Joseph Unavailable [phone] Miko Burris Unavailable Unavailable xxSophia Austin Unavailable [phone] Allergies Allergen (clinical drug ingredient) Drug/Non Drug Allergy documented on EMR Reaction Allergy Type Onset Date Status amoxicillin amoxicillin itching Drug Allergy Act bar morphine morphine swelling, itch Drug Allergy Ac tive Reason For Referral Reason NO AUTH REQ......... ............................NOT SCHEDULED..................................MCR/MMO MRI LEFT SHOULDER TO BE DONE AT [facility] Diagnosis 1 Tear of left rotator cuff, unspecified tear extent, unspecified whether traumatic (M75.102) Referral Organization [facility] Referring Provider First Name Anyashane Referring Provider Last Name St Adhikari Referring Provider Speciality Orthopedic Surgery Referred Organization [facility] Referred Address [address] [place], [place],[address], Procedure 1 MRI Joint Upper Ext w/o Dye ([id number]) General Notes Farida Doyle 025 11:02:20 AM [...] Problem Status W/U Status Risk Notes Problem 90854734 Cervical radiculopathy (M54.12) Active confirmed Problem 24799292 Cervical spinal stenosis (M48.02) Active confirmed Problem 00191220 Muscle weakness (M62.81) Active confirmed Problem 42384992 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-C5 level (M50.321) Active confirmed Problem 80422527 Other cervical disc degeneration at C5-C6 level (M50.322) Active confirmed Problem 97549894 Other cervical disc degeneration at C6-C7 level (M50.323) Active confirmed Problem 22720431 Other cervical disc degeneration, high cervical region (M50.31) Active confirmed Problem 306611019 Complete tear of left rotator cuff, unspecified whether traumatic (M75.122) Active confirmed Problem 273983864387 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) Active confirmed Encounters Encounter Location Date Provider Diagnosis [address] [place] [address] 04/22/2024 Sophia Griffith Other cervical disc degeneration, high cervical region M50.31 ; 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-C5 level M50.321 ; Other cervical disc degeneration at C5-C6 level M50.322 ; Other cervical disc degeneration at C6-C7 level M50.323 ; Cervical radiculopathy M54.12 ; Neuroforaminal stenosis of cervical spine M48.02 and Muscle weakness M62.81 [facility] [place] [place] [address] 05/13/2024 Sophia Griffith Other cervical disc degeneration, high cervical region [...] Cervical spine 2 v FLEX, EXT - 42833 MRI Shoulder Left w/o Contrast 5 Insurance Providers Payer Name Payer Address Payer Phone Subscriber Number Group Number Insured Name Patient Relationship to Insured Coverage Start Date Coverage End Date Medicare [address] [address] [id number] AKIRA BUITRAGO Self - patient is the insured Medical [facility] [address] [place] [address] [id number] AKIRA BUITRAGO Self - patient is the insured Medical (General) History Medical History History ICD Code Hypertension Heart murmur Asthma Bronchitis Thyroid disease GERD: Osteoporosis Osteoarthritis
--- OUTSIDE RECORDS SUMMARY | 2024-11-23 09:03 | XMS_ITS | Patient Health Record ---
Demographics Address [address] [place] [address] Mobile Email Address Preferred Language en Marital Status Muslim Affiliation Unknown Race White Ethnic Group Not or Lati no Author Organization [facility] [place] Address [address] [place] [address] Care Team Providers Care Manager Ems Name Role Phone Cornelio Burris Primary Care Provider Lucía Nath [phone] Allergies Allergen (clinical drug ingredient) Drug/Non Drug Allergy documented on EMR Reaction Allergy Type Onset Date Status amoxicillin Amoxicillin itching Drug Allergy Act bar morphine Morphine itching and swelling Drug Allergy Active Results Component Value Reference Range Notes FREE T3 Reviewed date:11/26/2023 07:25:30 PM Interpretation: Performing Lab: Notes/Report: [facility] , Free T3 2.82 2.18-3.98 pg/mL Performing Lab: see note ML - [facility] LB LIPID PROFILE Reviewed date:11/26/2023 07:25:30 PM Interpretation: Performing Lab: Notes/Report: [facility] , Triglycerides 56 <=150 mg/dL Cholesterol [...] Performing Lab: see note ML - [facility] LB PROF 14(COMP METB) Reviewed date:11/26/2023 07:25:30 PM Interpretation: Performing Lab: Notes/Report: [facility] , Sodium 143 136-145 mmol/L Potassium [...] 1.2 Performing Lab: see note ML - [facility] LB T4 Reviewed date:11/26/2023 07:25:30 PM Interpretation: Performing Lab: Notes/Report: [facility] , T4 Thyroxine 8.80 4.80-13.90 ug/dL Performing Lab: see note ML - [facility] LB TSH Reviewed date:11/26/2023 07:25:30 PM Interpretation: Performing Lab: Notes/Report: [facility] , Thyroid Stimulating Hormone 1.573 0.358-3.740 uIU/mL Performing Lab: see note ML - [facility] LB PROF CHEM 8 (BAS METB) Reviewed date:01/14/2024 10:18:20 AM Interpretation: Performing Lab: Notes/Report: [facility] , Sodium 138 136-145 mmol/L Potassium 4.4 [...] mg/dL Performing Lab: see note ML - [facility] LB XR cervical spine 2-3V Reviewed date:04/24/2024 01:37:34 PM Interpretation: Performing Lab: Notes/Report: Source Facility: [facility]-[address] [place] [address] XRay Report Signed Patient: ADRIANNA BUITRAGO MR#: [id number] : 1950 Acct:[id number] Age/Sex: 73 / F ADM Date: 04/22/24 Loc: EC Attending Dr: Krystyna Caba M.D. Ordering Physician: Krystyna Caba M.D. Date of Service: 04/22/24 Procedure(s): XR cervical spine 2-3V Accession Number(s): [id number] cc: Jenny Burris M.D.; Krystyna Caba M.D. [place] [address] Patient Name: ADRIANNA BUITRAGO MRN: [id number] date: 1950 Sex: F Assigned Patient Location: Current Patient Location: Accession/Order Number: [id number] Exam Date: 04/22/2024 10:05 Report Date: 04/24/2024 [...] M.D. Signed By: 04/24/2448 DD/ 4 TD/TT: Jig [employer] Fixture Builder: [place] [address] XRay Report Signed Patient: LALI BUITRAGO MR#: [id number] : 1950 Acct:[id number] Age/Sex: 73 / F ADM Date: 04/22/24 Loc: EC Attending Dr: Krystyna Caba M.D. Ordering Physician: Krystyna Caba M.D. Date of Service: 04/22/24 Procedure(s): XR cer vical spine 2-3V Accession Number(s): [id number] cc: Jenny Burris M.D. ; Krystyna Caba M.D. [place] [id number] Patient Name: ADRIANNA BUITRAGO MRN: [id number] date: 1950 Sex: F Assigned Patient Location: Current Patient Loca tion: EC Accession/Order Numb er: [id number] Exam Date: 04/22/2024 10:05 Report Date: 04/24/2024 [...] Dictated By: Nany Hernandez M.D. Signed By: 04/24/24 0948 DD/ TD/TT: Jig [employer] Fixture Builder: GAYATHRI Reviewed date:11/26/2023 07:25:30 PM Interpretation: Performing Lab: Notes/Report: [facility] , Iron 70.0 50.0-170.0 ug/dL Performing Lab: see note ML - [facility] LB GLYCOHEMOGLOBIN A1C Reviewed date:11/26/2023 07:25:30 PM Interpretation: Performing Lab: Notes/Report: [facility] , Glycohemoglobin A1C 4.8 4.5-6.2 % ADA RECOMMENDED LIMIT 4.0 - 6.0 > 7.0 ADA THERAPEUTIC TARGET < 7.0 ACTION SUGGESTED Estimated Average Glucose 91 Performing Lab: see note ML - [facility] LB CBC AUTO DIFF Reviewed date:11/26/2023 07:25:30 PM Interpretation: Performing Lab: Notes/Report: [facility] , White Blood Count 7.1 4.0-11.0 10 [...] 3/uL Performing Lab: see note ML - [facility] LB PROF CHEM 8 (BAS METB) Reviewed date:01/11/2024 08:06:02 PM Interpretation: Performing Lab: Notes/Report: [facility] , Sodium 139 136-145 mmol/L Potassium 3.3 [...] mg/dL Performing Lab: see note ML - [facility] LB XR cervical spine 2-3V Reviewed date:04/13/2024 06:55:56 PM Interpretation: Performing Lab: Notes/Report: Source Facility: [place] [address] [place] [address] XRay Report Signed Patient: ADRIANNA BUITRAGO MR#: [id number] : 1950 Acct:[id number] Age/Sex: 73 / F ADM Date: 04/12/24 Loc: LAB Attending Dr: Jenny Burris M.D. Ordering Physician: Jenny Burris M.D. Date of Service: 04/12/24 Procedure(s): XR cervical spine 2-3V Accession Number(s): [id number] cc: Jenny Burris M.D. [place] [address] Patient Name: ADRIANNA BUITRAGO MRN: [id number]:[id number] date: 1950 Sex: F Assigned Patient Location: LAB Current Patient Location: PT Accession/Order Number: [id number] Exam Date: 04/12/2024 09:40 Report Date: 04/12/2024 [...] Dictated By: Peter Tovar M.D. Signed By: 04/12/242213 DD/ 10 TD/TT: J[employer]xture Builder: [place] [address] XRay Report Signed Patient: LALI BUITRAGO MR#: [id number] : 1950 Acct:[id number] Age/Sex: 73 / F ADM Date: 04/12/24 Loc: LAB Attending Dr: Dontae Burris M.D. Ordering Physician: Jenny Burris M.D. Date of Service: 04/12/24 Procedure(s): XR cer vical spine 2-3V Accession Number(s): [id number] cc: Jenny Burris M.D. [place] [id number] Patient Name: ADRIANNA BUITRAGO MRN: [facility]:[id number] date: 1950 Sex: F Assigned Patient Location: LAB Current Patient Loca tion: PT Accession/Order Numb er: [id number] Exam Date: 04/12/2024 09:40 Report Date: 04/12/2024 [...] M.D. Signed By: 04/12/242213 DD/ 10 TD/TT: J[employer] Fixture Builder: PROF LAVONNE Espitia ([facility]) Reviewed date:04/12/2024 12:35:00 PM Interpretation: Performing Lab: Notes/Report: [facility] , Sodium 142 136-145 mmol/L Potassium 3.6 3.5-5.1 mmol/L Chloride 105 98-107 mmol/L Carbon Dioxide 29.6 21.0-32.0 mmol/L Anion Gap 11.0 Glucose 86 74-106 mg/dL Blood Urea Nitrogen 25.0 7.0-18.0 mg/dL Creatinine 1.19 0.55-1.02 mg/dL Estimated GFR ( Coleen 54 >=60 mL/min/1.73m 2 Estimated GFR (Non- Ngoc 44 >=60 mL/min/1.73m 2 BUN Creatinine Ratio 21.0 Calcium 9.9 8.5-10.1 mg/dL Performing Lab: see note - [facility] LB COVID-19, Flu A+B IH Reviewed date:01/11/2024 09:54:46 AM Interpretation: Performing Lab: Notes/Report: COVID Neg FLU A neg FLU B neg Control present Occult Blood* Reviewed date:08/31/2024 01:01:38 PM Interpretation: Performing Lab: Notes/Report: [facility] , Occult Blood Negative Performing Lab: see note [facility] LB Manual Differential Reviewed date:08/31/2024 01:01:38 PM Interpretation: Performing Lab: Notes/Report: [facility] , Segmented Neutrophils % Manual 90.0 43.0-75.0 Band Neutrophils % 2.0 0-5 % Lymphocytes Percent Manual 3.0 20.5-60.0 % Monocytes Percent Manual 5.0 1.7-12.0 % Eosinophils Percent Manual 0.0 0.9-7.0 % Basophils Percent Manual 0.0 0.2-2.0 % Segmented Neut Absolute Manual 11.07 1.4-6.5 10 3/uL Band Neutrophils Absolute 0.2 0.0-0.3 10 3/uL Lymphocytes Absolute Manual 0.36 1.20-3.80 10 3/uL Monocytes Absolute Manual 0.61 0.30-0.80 10 3/uL Eosinophils Absolute Manual 0.00 0.00-0.70 10 3/uL Basophils Abs Manual 0.00 0.00-0.10 1 0 3/uL Performing Lab: see note - [facility] PROF CHEM 8 (BAS METB) Reviewed date:08/31/2024 01:01:38 PM Interpretation: Performing Lab: Notes/Report: [facility] , Sodium 144 136-145 mmol/L Potassium 4.0 3.5-5.1 mmol/L Chloride 105 98-107 mmol/L Carbon Dioxide 26.8 21.0-32.0 mmol/L Anion Gap 16.2 Glucose 124 74-106 mg/dL Blood Urea Nitrogen 35.0 7.0-18.0 mg/dL Creatinine 1.56 0.55-1.02 mg/dL Estimated GFR ( Coleen 39 >=60 mL/min/1.73m 2 Estimated GFR (Non- Ngoc 32 >=60 mL/min/1.73m 2 BUN Creatinine Ratio 22.4 Calcium 9.7 8.5-10.1 mg/dL Performing Lab: see note ML - [facility] LB LIVER PROFILE Reviewed date:08/31/2024 01:01:38 PM Interpretation: Performing Lab: Notes/Report: [facility] , Bilirubin Total 0.7 0.2-1.0 mg/dL Bilirubin Direct 0.2 0.0-0.2 mg/dL Aspartate Amino Transferase 35 15-37 U/L Alanine Aminotransferase 39 14-59 U/L Alkaline Phosphatase 46 46-116 U/L Total Protein 7.0 6.4-8.2 g/dL Albumin Level 3.8 3.4-5.0 g/dL Globulin 3.2 Albumin Globulin Ratio 1.2 Performing Lab: see note ML - [facility] LB LIPASE Reviewed date:08/31/2024 01:01:38 PM Interpretation: Performing Lab: Notes/Report: [facility] , Lipase 49.0 16.0-77.0 U/L Performing Lab: see note ML - [facility] LB CBC AUTO DIFF Reviewed date:08/31/2024 01:01:38 PM Interpretation: Performing Lab: Notes/Report: [facility] , White Blood Count 12.3 4.0-11.0 10 3/uL Red Blood Count 4.42 4.20-5.40 10 6/uL Hemoglobin 13.9 12.0-16.0 g/dL Hematocrit 41.8 36.0-48.0 % Mean Corpuscular Volume 94.6 81.0-99.0 fL Mean Corpuscular Hemoglobin 31.4 26.7-34.0 pg Mean Corpuscular HGB Conc 33.3 29.9-35.2 g/dL Red Cell Distribution Width 13.7 11.0-15.0 % Platelet Count 298 150-450 10 3/uL Mean Platelet Volume 11.0 9.5-13.5 fL Performing Lab: see note ML - [facility] LB AMYLASE Reviewed date:08/31/2024 01:01:38 PM Interpretation: Performing Lab: Notes/Report: [facility] , Amylase 84 25-115 U/L Performing Lab: see note ML - [facility] LB ECG 12 lead Reviewed date:08/29/2024 03:23:47 PM Interpretation: Performing Lab: Notes/Report: Source Facility: [facility]-[address] [place] [address] [place] [address] Electrocardiograph Report Signed Patient: ADRIANNA BUITRAGO MR#: [id number] : 1950 Acct:[id number] Age/Sex: 73 / F ADM Date: 08/28/24 Loc: ER Attending Dr: Ordering Physician: Kenya Clinton Date of Service: 08/28/24 Procedure(s): ECG 12 lead Accession Number(s): [id number] cc: [facility] Test Date: 2024-08-28 Pat Name: ADRIANNA BUITRAGO Department: Room: - Gender: Female Network/Telecom Engineer: : 1950 Requested By: 1813 Order Number: [id number] Reading MD: HOMER STEVENS M.D. Measurements Intervals [place] Rate: 64 P: 65 IA: 118 QRS: 79 QRSD: 84 T: 72 QT: 376 QTc: 386 Interpretive Statements 1100 Sinus rhythm 2210 Short IA interval 9150 abnormal ECG Compared to ECG 06/23/2023 15:46:53 Short IA interval now present Electronically Signed On 08-29-2024 7:53:00 EDT by HOMER STEVENS M.D. Dictated By: HOMER STEVENS Signed By: 08/29/24 0753 DD/ 1521 TD/TT: J[employer]xture Builder: [place] [address] Electrocardiograph Report Signed Patient: LALI BUITRAGO MR#: [id number] : 1950 Acct:[id number] Age/Sex: 73 / F ADM Date: 08/28/24 Loc: ER Attending Dr: Ordering Physician: Kenya Clinton Date of Service: 08/28/24 Procedure(s): ECG 12 lead Accession Number(s): [id number] cc: [facility] Test Date: 2024-08-28 Pat Name: ADRIANNA BOSCH Department: 05 Room: - Gender: Female Network/Telecom Engineer: : 1950 Requ ested By: 1813 Order Number: [id number] Reading MD: HOMER STEVENS M.D. Measurements Intervals [place] Rate: 64 P: 65 IA: 118 QRS: 79 QRSD: 84 T: 72 QT: 376 QTc: 386 Interpretive Statements 1100 Sinus rhythm 2210 Short IA interval 9150 abnormal ECG Compared to ECG 06/23/2023 15:46:53 Short IA interval no w present Electronically Patricia d On 08-29-2024 7:53:00 EDT by HOMER STEVENS M.D. Dictated By: OHMER STEVENS Signed By: 08/29/24 0753 DD/ 1521 TD/TT: [employer] Builder: SARS-CoV-2 Ag* Reviewed date:08/29/2024 03:23:47 PM Interpretation: Performing Lab: Notes/Report: [facility] , SARS-CoV-2 Ag NEGATIVE NEGATIVE viruses or pathogens. The emergency use of this test is authorized for the duration of the declaration that emergency use of in vitro diagnostic tests for detection Act, 21 U.S.C. 360bbb-3(b)(1), unless the declaration is and/or diagnosis of Covid-19 under section 564(b)(1) of the authorized by the FDA under an Emergency Use Authorization terminated or authorization is revoked sooner. (EUA) for use by authorized laboratories certified under CLIA that meet the requirements to perform moderate or high circumstances exist justifying the authorization of This test has not been FDA cleared or approved, but has been complexity testing. This test has been authorized only for the detection of proteins from SARS-CoV-2, not for any other Performing Lab: see note ML - [facility] LB UA (CLEAN or CATCH) MICROSCO PIC IF INDICATE Reviewed date:08/29/2024 03:23:47 PM Interpretation: Performing Lab: Notes/Report: [facility] , Color Urine LT. YELLOW YELLOW Clarity Urine CLEAR CLEAR Specific [place] Urine <=1.005 1.005-1.025 pH Urine 6.0 5.0-9.0 Protein Urine NEGATIVE NEG/TRACE mg/dL Glucose Urine UA NEGATIVE NEGATIVE mg/dL Bilirubin Urine NEGATIVE NEGATIVE Ketones Urine NEGATIVE NEGATIVE mg/dL Blood Urine NEGATIVE NEGATIVE Nitrite Urine NEGATIVE NEGATIVE Urobilinogen Urine 0.2 0.2-1.0 EU/dL Leukocyte Esterase Urine NEGATIVE NEGATIVE Urine Microscopic Indicated NO Performing Lab: see note ML - [facility] LB PROF CHEM 8 (BAS METB) Reviewed date:08/29/2024 03:23:47 PM Interpretation: Performing Lab: Notes/Report: [facility] , Sodium 145 136-145 mmol/L Potassium 3.7 [...] mg/dL Performing Lab: see note ML - [facility] LB CBC AUTO DIFF Reviewed date:08/29/2024 03:23:47 PM Interpretation: Performing Lab: Notes/Report: [facility] , White Blood Count 13.0 4.0-11.0 10 [...] Performing Lab: see note ML - [facility] LB CREATININE Reviewed date:07/13/2024 12:41:17 PM Interpretation: Performing Lab: Notes/Report: [facility] , Creatinine 1.22 0.55-1.02 mg/dL Estimated GFR ( Coleen 52 >=60 mL/min/1.73m 2 Estimated GFR (Non- Ngoc 43 >=60 mL/min/1.73m 2 Performing Lab: see note ML - [facility] LB CALCIUM Reviewed date:07/13/2024 12:41:17 PM Interpretation: Performing Lab: Notes/Report: [facility] , Calcium 9.7 8.5-10.1 mg/dL Performing Lab: see note - [facility] LB MR shoulder LT wo con Reviewed date:05/09/2024 07:49:36 PM Interpretation: Performing Lab: Notes/Report: Source Facility: [facility]-[address] [place] [address] [place] [address] Magnetic Resonance Report Signed Patient: ADRIANNA BUITRAGO MR#: [id number] : 1950 Acct:[id number] Age/Sex: 73 / F ADM Date: 05/06/24 Loc: MRI Attending Dr: Sophia PARKINSON Ordering Physician: Sophia Malik Date of Service: 05/06/24 Procedure(s): MR shoulder LT wo con Accession Number(s): [id number] cc: Jenny Burris M.D.; Sophia Malik [address] [address] Patient Name: ADRIANNA BUITRAGO MRN: [id number] date: 1950 Sex: F Assigned Patient Location: MRI Current Patient Location: Accession/Order Number: [id number] Exam Date: 05/06/2024 07:48 Report Date: 05/09/2024 [...] Signed By: 05/09/24 1049 DD/ 1046 TD/TT: Jig And Fixture Builder: The [address] [address] Magnetic Resonance Report Signed Patient: LALI BUITRAGO MR#: [id number] : 1950 Acct:[id number] Age/Sex: 73 / F ADM Date: 05/06/24 Loc: MRI Attending Dr: Paola Nichole Ordering Physician: Sophia Malik Date of Service: 05/06/24 Procedure(s): MR larry menendez LT wo con Accession Number(s): [id number] cc: Jenny Burris M.D. ; Sophia Malik [place] [phone] Patient Name: ADRIANNA BUITRAGO MRN: [id number] date: 1950 Sex: F Assigned Patient Location: MRI Current Patient Location: Accession/Order Numb er: [id number] Exam Date: 05/06/2024 07:48 Report Date: 05/09/2024 10:46 At the request of: SOPHIA MALIK Procedure: MR khanna er LT wo con EXAMINATION: MR sarah beth [...] o visible tear or attrition. POSTERIOR: No assembler piano ior labrum abnormality. CAPSULE No visible capsular [...] Signed By: 05/09/24 1049 DD/ 1046 TD/TT: Jig And Fixture Builder: MR cervical spine wo con Reviewed date:04/18/2024 01:16:08 PM Interpretation: Performing Lab: Notes/Report: Source Facility: [place] [address] Magnetic Resonance Report Signed Patient: ADRIANNA BUITRAGO MR#: [id number] : 1950 Acct:[id number] Age/Sex: 73 / F ADM Date: 04/18/24 Loc: MRI Attending Dr: Jenny Burris M.D. Ordering Physician: Jenny Burris M.D. Date of Service: 04/18/24 Procedure(s): MR cervical spine wo con Accession Number(s): [id number] cc: Jenny Burris M.D. [place] [address] Patient Name: ADRIANNA BUITRAGO MRN: [id number] date: 1950 Sex: F Assigned Patient Location: MRI Current Patient Location: MRI Accession/Order Number: [id number] Exam Date: 04/18/2024 07:50 Report Date: 04/18/2024 [...] M.D. Signed By: 04/18/2448 DD/ 5 TD/TT: J[employer] Fixture Builder: [place] [address] Magnetic Resonance Report Signed Patient: LALI BUITRAGO Nany MR#: [id number] : 1950 Acct:[id number] Age/Sex: 73 / F ADM Date: 04/18/24 Loc: MRI Attending Dr: Dontae Burris M.D. Ordering Physician: Jenny Burris M.D. Date of Service: 04/18/24 Procedure(s): MR cer vical spine wo con Accession Number(s): [id number] cc: Jenny Burris M.D. [place] [address] Patient Name: ADRIANNA BUITRAGO MRN: [id number] date: 1950 Sex: F Assigned Patient Location: MRI Current Patient Loca tion: MRI Accession/Order Numb er: [id number] Exam Date: 04/18/2024 07:50 Report Date: 04/18/2024 [...] Junaid Esteves M.D. Signed By: 04/18/2448 DD/ 5 TD/TT: Jig And Fixture Builder: MM tomosynthesis screening B I Reviewed date:01/31/2024 10:37:30 PM Interpretation: Performing Lab: Notes/Report: Source Facility: [place] [address] Mammography Report Signed Patient: ADRIANNA BUITRAGO MR#: [id number] : 1950 Acct:[id number] Age/Sex: 73 / F ADM Date: 01/29/24 Loc: MAMMO Attending Dr: Jenny Burris M.D. Ordering Physician: Jenny Burris M.D. Results: Date of Service: 01/29/24 Follow Up: Procedure(s): MM tomosynthesis screening BI Accession Number(s): [id number] cc: Jenny Burris M.D. Patient Name: ADRIANNA BUITRAGO MR#: [id number] : 1950 Exam Date: 01/29/2024 Ordering Doctor: [...] lung cancer at age 59. LOCATION: [facility] BREAST COMPOSITION: There are scattered areas of [...] M.D. Signed By: 01/31/241947 DD/ 46 TD/TT: Jig And Fixture Builder: [place] [address] Mammography Report Signed Patient: LALI BUITRAGO MR#: [id number] : 1950 Acct:[id number] Age/Sex: 73 / F ADM Date: 01/29/24 Loc: MAMMO Attending Dr: Dontae Burris M.D. Ordering Physician: Jenny Burris M.D. Results: Date of Service: Follow Up: Procedure(s): MM tomosynthesis screening BI Accession Number(s): [id number] cc: Jenny Burris M.D. Patient Name: ADRIANNA BUITRAGO MR#: [id number] : 1950 Exam Date: 01/29/2024 Ordering Doctor: [...] lung cancer at age 59. LOCATION: [facility] BREAST COMPOSITION: There are scattered areas [...] M.D. Signed By: 01/31/241947 DD/ 46 TD/TT: J[employer] And Fixture Builder: CREATININE Reviewed date:01/11/2024 09:54:46 AM Interpretation: Performing Lab: Notes/Report: [facility] , Creatinine 1.42 0.55-1.02 mg/dL Estimated GFR ( Coleen 44 >=60 mL/min/1.73m 2 Estimated GFR (Non- Ngoc 36 >=60 mL/min/1.73m 2 Performing Lab: see note ML - [facility] LB CALCIUM Reviewed date:01/11/2024 09:54:46 AM Interpretation: Performing Lab: Notes/Report: [facility] , Calcium 10.2 8.5-10.1 mg/dL Performing Lab: see note ML - [facility] LB Reason For Referral Diagnosis 1 Cervical radiculopat hy (M54.12) Referral Organization [facility] Referring Provider First Name Cornelio Referring Provider Last Name [place] Referring Provider Speciality Family Med icine Referred Provider TB, Physical Therap y Referred Provider Specialty Physical Med icine and Rehabilitation Referral Priority Routine Diagnosis 1 Cervical radiculopat hy (M54.12) Referral Organization [facility] Referring Provider First Name Cornelio Referring Provider Last Name [place] Referring Provider Speciality Family [facility] icine Referred Provider Krystyna Joseph Referred Provider Specialty Orthopedic S urgery Referral Priority Routine Medications Medication SIG (Take, Route, Frequency, Duration) Notes Start Date End Date Status Fenofibrate 160 MG 1 tablet Orally Once a day for 90 days Active Pravastatin Sodium 10 MG 1 tablet Orally Once a day for 90 days Active Fluticasone Propionate 50 MCG/ACT 2 spray in each nostril Nasally Once a day for 90 days Active Prolia 60 MG/ML as directed Subcutaneous Active cloNIDine HCl 0.1 MG 1 tablet Orally twi ce daily for 90 days Active Omeprazole 40 MG 1 tablet Orally Once a day for 90 days Active Cytomel 5 MCG 1 tablet on an empty stomach Orally Once a day for 90 days 12/04/2022 Active Potassium Chloride ER 10 MEQ 1 tablet Orally three times daily for 90 days Active Breztri Aerosphere 160-9-4.8 MCG/ACT 2 puffs Inhalation once daily as needed for 30 days Active Levothyroxine Sodium 100 MCG 1 tablet Orally Once a day for 90 days Active Imitrex 100 MG 1 tablet at least 2 hours between doses as needed Orally Twice a day 11/23/2024 Active Budesonide 1 MG/2ML 1 mL Inhalation Once a day for 30 days Dx: COPD and Asthma Active Nebulizer/Tubing/Mouthpiec e - as directed for 365 days 06/20/2024 Act bar Lactulose 10 GM/15ML 30ml Oral twice rabia ly as needed for 90 days PRN Active Azelastine HCl 137 MCG/SPRAY SPRAY 2 SPRAYS INTO EACH NOSTRIL ONCE A DAY for 90 Active Jobst 30-40mmHg Compression Sm - as directed dx:venous insufficiency qd for 30 days 05/01/2023 Active Aspirin Low Dose 81 MG 1 tablet Orally Once a day Active Furosemide 20 MG 1 tablet Orally QOD, PRN for 90 days Active Ubrelvy 100 MG 1 tablet may take se cond dose at least 2 hours after first dose as needed Orally Once a day PRN Active Ipratropium [place]y 0.02 % 2.5 mL as needed Inhalation QID As needed 11/05/2023 Active Immunizations Vaccine Route Administration Date Status [...] Unknown 01/11/2022 Administered SARS-COV-2 COVID-19, mRNA, L BRIM STITCHER-S, PF, 50 mcg/0.5 mL Unknown 02/04/2023 Administered [...] Status Risk Notes Problem Low back pain (305035068) Low back pain (724.5) Active confirmed Problem 289818727 Migraine without aura, not intractable, without status migrainosus (G43.009) Active confirmed Problem 46980913 Age-related osteoporosis without current pathological fracture (M81.0) Active confirmed Problem 514214645 Neoplasm of unce rtain behavior, 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 Problem 066123342 Mild intermitten t asthma, uncomplicated (J45.20) Active confirmed Problem Shortness of breath (418754793) Shortness of breath (R06.02) Active confirmed Problem Mitral regurgitation (11735408) Mitral regurgitation (I34.0) Active confirmed Problem Hypertension (96209240) Hypertension (I10) Active confirmed Problem Asthma (667574709) Asthma (J45.909) Active conf irmed Problem Gastroesophageal reflux disease (916628570) GERD (gastroesophageal reflux disease) (K21.9) Active confirmed Problem Cervical radiculopathy (85239279) Cervical radiculopathy (M54.12) Active confirmed Problem Hypothyroidism (86435549) Hypothyroidism (E03.9) Active confirmed Problem Edema (19649403) Edema (R60.9) Active confirmed Problem Venous insufficiency of leg (disorder) (736095260) Venous insufficiency (I87.2) Active confirmed Problem Osteopenia (269925337) Osteopenia (M85.80) Active confirmed Problem Degenerative arthritis (963366590) Degenerative arthritis (M19.90) Active confirmed Problem Lumbar radiculopathy (210500942) Lumbar radiculopathy (M54.16) Active confirmed Problem Acute sinusitis (96256513) Acute sinusitis (J01.90) Active confirmed Problem Allergic rhinitis (05263169) Allergic rhinitis (J30.9) Active confirmed Problem Cervical disc diseas e (740983565) Cervical disc disease (M50.90) Active confirmed Problem Migraine with aura (9331735) Migraine with aura (G43.109) Active confirmed Problem Osteoarthritis of hi p (209675244) 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) Active confirmed Problem Acute bronchiolitis (7949556) Acute bronchiolitis (J21.9) Active confirmed Problem Heart murmur (02299031) Cardiac murmur (R01.1) Active confirmed Problem 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) Active confirmed Problem Degeneration of lumbar intervertebral disc (99678422) 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) Active confirmed Problem Hypercholesterolemia (05257253) Hypercholesterolemia (E78.00) Active confirmed Problem Age-related cataract (03782597) Senile cataract of left eye, unspecified age-related cataract type (H25.9) Active confirmed Problem COVID-19 (675902895) COVID-19 (U07.1) Active co nfirmed Vital Signs Heart Rate 61 /min 01/06/2024 Temperature 100.2 degrees Fahrenheit 08/31/2024 Oximetry 99 % 01/06/2024 Blood pressure diastolic 84 mm Hg 11/23/2024 Height 63 in 11/23/2024 Blood pressure systolic 132 mm Hg 11/23/2024 Weight 126.2 lbs 11/23/2024 BMI 22.35 kg/m2 11/23/2024 Encounters Encounter Location Date Provider Diagnosis [facility] [address] [facility] [place] [address] 08/12/2024 Cornelio Hoy Asthma J45.909 [facility] [address] [facility] [place] [address] 09/20/2024 Cornelio Hoy [facility] [address] [facility] [place] [address] 09/20/2024 Cornelio Burris [facility] [address] [facility] [place] [address] 04/26/2024 Cornelio [facility] [address] [facility] [place] [address] 04/28/2024 Cornelio Burris [facility] [address] [facility] [place] [address] 05/02/2024 Cornelio Burris [facility] [address] [facility] [place] [address] 05/09/2024 Cornelio Burris [facility] [address] [place] [address] 05/12/2024 Cornelio Burris [facility] [address] [facility] [place] [address] 06/20/2024 Cornelio Burris [facility] [address] [facility] [place] [address] 04/08/2024 Cornelio Burris [facility] [address] [facility] [place] [address] 04/12/2024 Cornelio Burris [facility] [address] [facility] [place] [address] 04/13/2024 Cornelio Hoy Cervical radiculopat hy M54.12 [facility] [address] [facility] [place] [address] 04/18/2024 Cornelio Hoy Cervical radiculopat hy M54.12 [facility] [address] [place] [address] 04/22/2024 Cornelio Burris [facility] [address] [place] [address] 04/25/2024 Cornelio Burris [facility] [address] [place] [address] 01/11/2024 Cornelio Burris Creatinine elevation R79.89 [facility] [address] [place] [address] 01/11/2024 Cornelio Burris Creatinine elevation R79.89 [facility] [address] [place] [address] 01/14/2024 Cornelio Burris [facility] [address] [place] [address] 01/15/2024 Cornelio Burris [facility] [address] [place] [address] 01/31/2024 Lucía Nath [facility] [address] [place] [address] 02/11/2024 Cornelio Burris [facility] [address] [place] [address] 11/26/2023 Cornelio Burris [facility] [address] [place] [address] 12/15/2023 Cornelio Burris [facility] [address] [place] [address] 11/08/2024 Cornelio Burris Encounter for Medica re annual wellness exam Z00.00 [facility] [address] [place] [address] 05/26/2024 Cornelio Bruris Hypertension I10 ; G ERD (gastroesophageal reflux disease) K21.9 ; Hypothyroidism E03.9 and Cervical radiculopathy M54.12 [facility] [address] [place] [address] 01/06/2024 Cornelio Burris Acute bronchiolitis J21.9 [facility] [address] [place] [address] 04/12/2024 Cornelio Hoangelia Degenerative arthrit is M19.90 ; Cervical disc disease M50.90 ; Cervical radiculopathy M54.12 and Edema R60.9 [facility] [address] [place] [address] 11/26/2023 Cornelio Hoy Hypertension I10 ; G ERD (gastroesophageal reflux disease) K21.9 ; Hypothyroidism E03.9 ; Lumbar radiculopathy M54.16 ; Hypercholesterolemia E78.00 and Asthma J45.909 [facility] [address] [place] [address] 11/23/2024 Cornelio Hoy Hypertension I10 ; Hypothyroidism E03.9 ; Migraine with aura G43.109 and Asthma J45.909 [address] [place] [address] 08/31/2024 Cornelio Hoy Acute bronchitis, unspecified organism J20.9 Assessments Encounter Date Diagnosis (ICD Code) Assessment Notes Treatment Notes Treatment Clinical Notes Section Notes 11/26/2023 Hypertension (ICD-10 - I10) good control - watch for low 11/26/2023 GERD (gastroesophage al reflux disease) (ICD-10 - K21.9) stable on meds 05/26/2024 Hypertension (ICD-10 - I10) 05/26/2024 GERD (gastroesophage al reflux disease) (ICD-10 - K21.9) 01/06/2024 Acute bronchiolitis (ICD-10 - J21.9) 04/12/2024 Degenerative arthrit is (ICD-10 - M19.90) 04/12/2024 Cervical disc diseas e (ICD-10 - M50.90) 08/31/2024 Acute bronchitis, unspecified organism (ICD-10 - J20.9) if not better - needs ct scan schest dn abd-pelvis with contrast 11/08/2024 Encounter for Medica re annual wellness exam (ICD-10 - Z00.00) 01/11/2024 Creatinine elevation (ICD-10 - R79.89) 01/11/2024 Creatinine elevation (ICD-10 - R79.89) 04/13/2024 Cervical radiculopat hy (ICD-10 - M54.12) 04/18/2024 Cervical radiculopat hy (ICD-10 - M54.12) 08/12/2024 Asthma (ICD-10 - J45.909) 11/23/2024 Hypertension (ICD-10 - I10) 11/23/2024 Hypothyroidism (ICD- 10 - E03.9) 11/23/2024 Migraine with aura (ICD-10 - G43.109) 04/12/2024 Cervical radiculopat hy (ICD-10 - M54.12) 05/26/2024 Hypothyroidism (ICD- 10 - E03.9) 11/26/2023 Hypothyroidism (ICD- 10 - E03.9) checking labs 11/26/2023 Lumbar radiculopathy (ICD-10 - M54.16) stabel with actrivity 05/26/2024 Cervical radiculopat hy (ICD-10 - M54.12) 04/12/2024 Edema (ICD-10 - R60.9) 11/23/2024 Asthma (ICD-10 - J45.909) 11/26/2023 Hypercholesterolemia (ICD-10 - E78.00) checking labs 11/26/2023 Asthma (ICD-10 - J45.909) Plan Of Treatment Pending Test Test Name Order Date CMP (COMPLETE METABOLIC PANEL) 3 CMP (COMPLETE METABOLIC PANEL) 4 HEMOGLOBIN A1C (GLYCO) 11/26/2023 HEMOGLOBIN A1C (GLYCO) 11/23/2024 HEMOGLOBIN A1C (GLYCO) 12/03/2022 IRON, TOTAL 12/03/2022 IRON, TOTAL 11/23/2024 IRON, TOTAL 11/26/2023 LIPID PANEL (CHOL/TRIG/HDL/LDL) 12/04/19 23 LIPID PANEL (CHOL/TRIG/HDL/LDL) 11/26/19 24 LIPID PANEL (CHOL/TRIG/HDL/LDL) 11/24/19 25 CBC WITH DIFF 11/26/2023 CBC WITH DIFF 12/03/2022 VITAMIN D, 25 LEVEL (TOTAL) 12/03/2022 MRI Cervical Spine w/o contrast * 2024 Basic Metabolic Panel (8) 01/11/2024 THYROID PROFILE WITH TSH 12/05/2022 MG MAMM SCREEN 3D NOEL CAD 12/25/2022 MRI CSPINE WO CON 04/12/2024 XR DEXA BONE DENSITY 07/23/2023 THYROID PANEL (T4/TSH/FREE T3) 4 THYROID PANEL (T4/TSH/FREE T3) 5 THYROID PANEL (T4/TSH/FREE T3) 3 CMP (COMP MET TYSON) w/eGFR CKD-EPI 2024 CBC WITH DIFF 11/23/2024 Next Appt Details Provider Name:Cornelio Burris, 08:30:00 AM, [address], [place], [address], Insurance Providers Payer Name Payer Address Payer Phone Subscriber Number Group Number Insured Name Patient Relationship to Insured Coverage Start Date Coverage End Date MEDICARE [place] [address] [address] [id number] Adrianna Buitrago Self - patient is the insured MMO MEDICARE SUPPLEMENT [address] [place] [address] [id number] Adrianna Buitrago Self - patient is the [...] disease) K 21.9 Surgical History Surgery Date(Month/Year) sinus surgery SUE and DREW Colonoscopy- Dr. Espinoza 08/05/2023 Lens implant OU nasal septoplasty right foot x2
--- OUTSIDE RECORDS SUMMARY | 2024-11-23 09:04 | XMS_ITS | Clinical Summary ---
Author Organization [facility] Address [address] [place] [address] Care Team Providers Care Touch Up Painter Hand Name Role Phone Miko Burris MD Primary Care Provider [phone] Allergies Active Allergy Reactions Criticality Noted Date [...] days. Active azelastine (Astelin) 0.1 % nasal sprayIndications: Vasomotor rhinitis Azelastine HCl Two sprays per nostril on a b.I.d. basis. 30 mL 11 01/06/20 23 Active liothyronine (Cytomel) 5 MCG tablet Take by mouth Daily Active ipratropium (Atrovent) 0.02 % nebulizer solutionIndicatio ns:Asthma, allergic, mild intermittent, uncomplicated (HCC) Take 2.5 mL (0.5 mg) by nebulization 4 (four) times a day as needed for wheezing or shortness of breath 75 mL 11 10/12/19 24 Active Budeson-Glycopyrr ol-Formoterol (Breztri Aerosphere) 160-9-4.8 MCG/ACT aerosol Inhale 1 puff Daily Active levothyroxine (Synthroid, Levoxyl) 100 MCG tablet Take 100 mcg by mouth in the morning. Take before meals. Active cloNIDine (Catapres) 0.1 MG tablet Take 0.1 mg by mouth in the morning and 0.1 mg before bedtime. Active budesonide (Pulmicort) 1 MG/2ML nebulizer solutionIndicatio ns:Mild intermittent asthma without complication (HCC) INHALE THE CONTENTS OF 1 VIAL VIA NEBULIZER IN THE MORNING AND AT BEDTIME, RINSE MOUTH WITH WATER AFTER TO USE TO REDUCE AFTERTASTE AND INCIDENCE OF CANDIDIASIS. DO NOT SWALLOW 180 mL 3 08/16/19 25 Active clotrimazole-beta methasone (Lotrisone) creamIndications: Tinea corporis Apply 1 application topically in the morning and 1 application before bedtime. 45 g 1 11/04/19 25 025 Active Active Problems Problem Noted Date Diagnosed [...] Encounters Date Type Department Care Team Description 11/17/2024 1:30 PM EDT Office Visit [facility] [address] [place] [address] Renny Orlando DPM Tinea corporis (Primary Dx); Verruca plantaris; Foot pain, right; Foot pain, left 11/17/2024 Bamboo flowsheet [facility] [address] [place] [address] Renny Orlando DPM 11/17/2024 Travel 11/03/2024 9:50 AM EDT Office Visit [facility] [address] [address] [place] [address] Renny Orlando DPM Tinea corporis (Primary Dx); Verruca plantaris; Foot pain, right; Foot pain, left 11/03/2024 Bamboo flowsheet [facility] [address] [place] [address] Renny Orlando DPM 11/03/2024 Travel 10/20/2024 11:50 AM EDT Office Visit [facility] [address] [place] [address] Renny Orlando DPM Verruca plantaris (Primary Dx); Foot pain, right; Foot pain, left; Pain due to onychomycosis of toenails of both feet 10/20/2024 Bamboo flowsheet [facility] [address] [facility] [address] [place] [address] Renny Orlando DPM 10/20/2024 Travel 08/25/2024 Telephone [facility] [address] [facility] [address] [place] [address] Renny Orlando DPM from Last 3 Months Family History Medical [...] AM EST Temperature - - Respiratory Rate 16 11/17/2024 1:13 PM EDT Oxygen Saturation - - Inhaled Oxygen Concentration - - Weight 58.5 kg (129 lb) 11/17/2024 1:13 PM EDT Height 160 cm (5' 3 ) 11/17/2024 1:13 PM EDT Body Mass Index 22.85 11/17/2024 1:13 PM EDT Plan of Treatment Upcoming Encounters Date Type Department Care Team ([facility] st Contact Info) Description 12/08/2024 11:00 AM EDT Office Visit [facility] [address] [facility] [address] [place] [phone] Renny Orlando DPM [address] [facility] [address] [place] [address] 01/11/2025 9:20 AM EDT Office Visit [facility] [facility] [address] [facility] [address] [place] [address] Charles Faith MD [address] [facility] [address] [place] [address] Health Maintenance Due Date Last Done Comments CT Colonography 1950 Colonoscopy 1950 Colorectal Cancer Screening 1950 FIT-DNA 1950 FIT 1950 FOBT 1950 Sigmoidoscopy 1950 Pneumococcal Vaccine: 65+ Years (2 of 2 - PPSV23) 10/0510/27/2017 Influenza Vaccine (#1) 2024 Insurance * Guarantor: Adrianna Buitrago Account Type Relation to Patient Date of Phone Billing Address Personal/Family Self 1950 [address] [place] [address] MEDICARE [place] [id number] [facility] [place] Care Teams Touch Up Painter Hand Relationship Specialty Start Date End Date Miko Burris MD [address] [place] [phone] PCP - General Family Medicine 04/30/23
--- OUTSIDE RECORDS SUMMARY | 2024-11-23 09:04 | XMS_ITS | Clinical Summary ---
Demographics Address [address] [place] [address] Home Phone Preferred Language en Marital Status Adventist Affiliation Unknown Race White Ethnic Group Not or Lati no Author Organization [facility] Address [address] [place] [address] Care Team Providers Care Engineering Operations Leader Name Role Phone Miko Burris MD Primary Care Provider [phone] Allergies Active Allergy Reactions Criticality Noted Date Comments Amoxicillin Unknown 05/13/2022 Mold Unknown 04/30/2023 Morphine Itching 05/13/2022 Medications cloNIDine (Catapres) 0.1 mg tablet Take 0.1 mg by mouth in the morning and at bedtime. 9 Active fenofibrate (Lofibra) 160 mg tablet Take [...] tablet 100 mg in the morning. Active budesonide-gly copyr-formoter ol (Breztri Aerosphere) 160-9-4.8 mcg/actuation HFA aerosol inhaler every 12 (twelve) hours. 2 Active denosumab (Prolia) 60 mg/mL syringe 1 injection Acti ve azelastine (Astelin) 137 mcg (0.1 %) nasal spray Administer 2 sprays into each nostril in the morning and at bedtime. 3 Active aspirin 81 mg EC tablet 1 (one) time each day at the same time. Active lactulose 10 gram/15 mL solution 3 Active liothyronine (Cytomel) 5 mcg tablet 1 (one) time each day at the same time. 3 Active albuterol 2.5 mg /3 mL (0.083 %) nebulizer solution INHALE 3 ML EVERY 6 HOURS NEEDED 4 Active ipratropium (Atrovent) 0.02 % nebulizer solution TAKE 2.5 ML BY NEBULIZATION 4 TIMES A DAY NEEDED FOR WHEEZING OR SHORTNESS OF BREATH Active fluticasone (Flonase) 50 mcg/actuation nasal spray Administer 2 sprays into each nostril in the morning. 5 Active budesonide (Pulmicort) 1 mg/2 mL nebulizer solution Take 1 mg by nebulization in the morning. Active Active Problems Problem Noted Date Diagnosed [...] Chest pain 09/02/2016 Chronic kidney disease 09/02/2016 Encounters Date Type Department Care Team Description 11/07/2024 9:00 AM EDT Office Visit [facility] [address] [address] Azam Garcia MD Primary hypertension (Primary Dx); Mixed hyperlipidemia; Edema of lower extremity; Stage 3b chronic kidney disease (CMS/HCC) from Last 3 Months Family History Medical History Relation Name Comments Heart attack Brother Heart attack Father Coronary artery disease Sister Peripheral vascular disease Sister Relation Name Status Comments Brother Father Mother Sister Social History Tobacco Use Types Packs/Day [...] Physically or Sexually Abused Not on file Comments Unknown Sex and Gender Information Value Date Recorded Sex Assigned at Female 11/02/2024 4:16 PM EDT Legal Sex Female 11:56 PM EDT Gender Identity Female 11/02/2024 4:16 PM EDT Sexual Orientation Heterosexual or Straight 10/06 4:16 PM EDT Last Filed Vital Signs Vital Sign Reading Time Taken Comments Blood Pressure 134/60 11/07/2024 8:43 AM EDT Pulse 53 11/07/2024 8:43 AM EDT Temperature - - Respiratory Rate - - Oxygen Saturation 100% 11/07/2024 8:43 AM EDT Inhaled Oxygen Concentration - - Weight 58.5 kg (129 lb) 11/07/2024 8:43 AM EDT Height 160 cm (5' 3 ) 11/07/2024 8:43 AM EDT Body Mass Index 22.85 11/07/2024 8:43 AM EDT Plan of Treatment Health Maintenance Due Date Last Done Comments CT Colonography 1950 Colonoscopy 1950 Colorectal Cancer Screening 1950 FIT-DNA 1950 FIT 1949 FOBT 1950 Medicare Annual Wellness (AWV) 1950 Sigmoidoscopy 1949 Depression Screening 1961 Adult Tetanus 10/06/1971 Zoster Vaccines (1 of 2) 10/06/1999 Fall Risk Screening 2014 Pneumococcal Vaccine: 50+ Years (2 of 2 - PPSV23, PCV20, or PCV21) 12/22/2017 10/27/2017 COVID-19 Vaccine ( season) 2024 02/10/2024, 02/04/2023, 01/11/2022, Additional history exists Influenza Vaccine (#1) 2024 HIB Vaccines Aged Out No longer [...] on patient's age to complete this topic Insurance MEDICARE [employer] [place] Care Teams Engineering Operations Leader Relationship Specialty Start Date End Date Miko Burris MD [address] [facility] [place] [address] PCP - General 05/14/22
--- OUTSIDE RECORDS SUMMARY | 2024-11-23 09:13 | XMS_ITS | CCD ---
Author Organization [facility] Team Providers Care Assembler Carbon Brushes Name Role Phone HOY ., DR ALVARADO Primary Care Unavailable HOY ., DR ALVARADO Consulting Unavailable HOY ., DR ALVARADO Attending Unavailable HOY ., DR ALVARADO Admitting Unavailable HOY ., DR ALVARADO Admitting Unavailable HOY ., DR ALVARADO Primary Care Unavailable HOY ., DR ALVARADO Consulting Unavailable HOY ., DR LAVARADO Attending Unavailable WEST, DR TESSA Bhat Consulting [...] Primary Care Unavailable SURINDER, ERNIE Admitting Unavailable ERNIE CADENA Consulting Unavailable ERNIE CADENA Attending Unavailable Jenny Burris MD Primary Care Provider [phone] Issa VALE Attending Unavailable Issa VALE Attending Unavailable Jenny Burris MD Primary Care Provider [phone] Jenny Burris MD Primary Care Provider [phone] HOMER STEVENS Attending Unavailable ALGHOTHANI, MOHAMAD Attending Unavailable BROWN, RENNY A Attending Unavailable BROWN, RENNY A Attending Unavailable BROWN, RENNY A Attending Unavailable BROWN, RENNY A Attending Unavailable BROWN, RENNY A Attending Unavailable SANDEEP PLEITEZ Attending Unavailable BROWN, RENNY A Attending Unavailable BROWN, RENNY A Attending Unavailable BROWN, RENNY A Attending Unavailable BROWN, RENNY A Attending Unavailable BROWN, RENNY A Attending Unavailable KEILA FAITH Attending Unavailable Allergies Allergy Classification Reported Allergen(s) Allergy Type Date of Onset Reaction(s) Facility (2 sources) Amoxicillin; Translations: [AMOXICILLIN] Drug Allergy 3 [facility] Repository (3 sources) Morphine; Translations: [morphine] Drug Allergy 3 [facility] Repository (20 sources) Amoxicillin Drug Allergy 3 Itching, Other, Unknown [facility] (20 sources) Mold Extract Drug Allergy 4 Unknown [facility] (20 sources) Morphine Drug Allergy 3 Itching, Other [facility] (1 source) Penicillin; Translations: [penicillin] Drug Allergy [facility] Repository (1 source) No Known Medication Allergies; Translations: [No Known Medication Allergies] Propensity to adverse reactions (disorder) [facility] Repository (1 source) Mold Extract; Translations: [MOLD] Drug Allergy 4 [facility] Repository Medications Current Medications Medication Drug Class(es) [...] b.I.d. basis. 30 mL 11 01/05/2023 Active betamethasone 0.5 mg/ml / clotrimazole 10 mg/ml topical cream (5 sources) Azole Antifungal, Corticosteroid Start: 11-03-2024 End: 12-03-2024 clotrimazole-beta methasone (Lotrisone) cream Indications: Tinea corporis Apply 1 application topically in the morning and 1 application before bedtime. 45 g 1 11/03/2024 12/03/2024 Active budesonide 0.5 mg/ml inhalation suspension (20 sources) Corticosteroid Start: 08-15-2024 take 1 dose by mouth at bedtime budesonide (Pulmicort) 1 MG/2ML nebulizer solution Indications: Mild intermittent asthma without complication (HCC) INHALE THE [...] take 1 puff(s) by inhalation once daily Svuwrdc-Odqbtlrhdbj-Yajhhjwedn (Breztri Aerosphere) 160-9-4.8 MCG/ACT aerosol Inhale 1 puff Daily Active 168 hr cloNIDine 0.97940 mg/hr transdermal system (20 sources) Central alpha-2 [...] solution (20 sources) Anticholinergic Start: 024 End: ipratropium (Atrovent) 0.02 % nebulizer solution Indications: Asthma, allergic, mild intermittent, uncomplicated (HCC) Take 2.5 mL (0.5 mg) by nebulization 4 (four) times a day as needed for wheezing or shortness of breath 75 mL 11 10/12/2023 Active lactulose 667 mg/ml oral solution (20 [...] Translations: [Mild intermittent asthma, uncomplicated] 04-07-2024 Chronic Chronic kidney disease (2 sources) Chronic kidney disease; Translations: [Chronic kidney disease, stage 3b] Onset: 05-13-2022 Disorders of lipid metabolism (5 sources) Hyperlipidemia, unspecified; Translations: [Mixed hyperlipidemia] Onset: 11-15-2021 Chronic Esophageal disorders (1 source) Gastro-esophageal reflux disease without esophagitis; Translations: [GERD WITHOUT ESOPHAGITIS] Onset: 11-15-2021 Chronic Essential hypertension (6 sources) Essential (primary) hypertension; Translations: [ESSENTIAL PRIMARY HYPERTENSION] Onset: 11-14-2021 Chronic Headache; including migraine (20 sources) Migraine without aura, not intractable, without status migrainosus; Translations: [Migraine with aura] Onset: 09-18-2021 Resolved: 12-15-2023 Chronic Heart valve disorders (6 sources) Nonrheumatic mitral (valve) insufficiency; Translations: [Rheumatic disorders of both mitral and tricuspid valves] Onset: 05-13-2022 Chronic Mycoses (9 sources) Onychomycosis; Translations: [Tinea unguium] 12-13-2023 Episodic Nonspecific chest pain (4 sources) Chest pain, unspecified; Translations: [CHEST PAIN UNSPECIFIED] Onset: 05-26-2022 Episodic Nutritional deficiencies (1 source) Vitamin D deficiency, unspecified; Translations: [VITAMIN D DEFICIENCY UNSPECIFIED] Onset: 11-15-2021 Chronic Osteoporosis (4 sources) Age-related osteoporosis without current pathological fracture; Translations: [AGE-REL OSTEOPOR W/O CURR PATH FX] Onset: 07-02-2022 Chronic Other connective tissue disease (18 sources) Pain in right foot; Translations: [Pain in right foot] 01-10-2024 Episodic Other connective tissue disease (18 sources) Pain in left foot; Translations: [Pain [...] UNS] Onset: 06-05-2022 Chronic Residual codes; unclassified (3 sources) Localized edema; Translations: [LOCALIZED EDEMA] Onset: 06-11-2022 Episodic Thyroid disorders (1 source) Hypothyroidism, unspecified; Translations: [HYPOTHYROIDISM UNSPECIFIED] Onset: 11-15-2021 Chronic Unclassified (3 sources) OTHER LOW BACK PAIN; Translations: [OTHER LOW BACK PAIN] Onset: 06-11-2022 Unclassified (4 sources) CONTACT W/AND (SUSP) EXPOS COVID-19; Translations: [CONTACT W/AND (SUSP) EXPOS COVID-19] Onset: 11-06-2021 Viral infection (18 sources) Verruca plantaris; Translations: [Plantar wart] 01-10-2024 [...] MALIG NEOPLASM OTH ORGN/SYS] Onset: 01-26-2022 Episodic Unclassified (1 source) OTHER LOW BACK PAIN; Translations: [OTHER LOW BACK PAIN] Onset: 05-30-2022 Unclassified (1 source) CONTACT W/AND (SUSP) EXPOS COVID-19; Translations: [CONTACT W/AND (SUSP) EXPOS COVID-19] Onset: 05-22-2022 Results Test Name Value Interpretation Reference Range Facility Office Visiton 11-07-2024 Follow-up visit [id number] Shirley Buitrago D 1950 F Date Provider Department Center 11/07/2024 HOMER STORY CARD [facility] Family History Problem Relation Age of Onset Heart attack Father Coronary artery disease Sister Peripheral vascular disease Sister Heart attack Brother Family Status - Relation Status Age at Mother Father Sister Brother Level of Service:35002 [place] OFFICE/OUTPATIENT ESTABLISHED MOD MDM 30 MIN Normal [facility] Office Visiton 04-29-2024 Follow-up visit [id number] Shirley Buitrago ly D 1950 F Date Provider Department Center 04/29/2024 384Nupur-JUANITA JENKINS CARD [facility] Family History Problem Relation Age of Onset Heart attack Father Coronary artery disease Sister Peripheral vascular disease Sister Heart attack Brother Family Status - Relation Status Age at Father Sister Brother Level of Service:19050 [place] OFFICE/OUTPATIENT ESTABLISHED LOW MDM 20 MIN Normal [facility] Outside Colonoscopyon 2023 Outside Colonoscopy [id number] 50 [id number] 0TIFF [facility] Reminderson 08-07-2023 Reminders - From: Kandi Cesar LPN To: GSN - Clinical; Sent: 08/07/2023 07:59:01 EDT Show up: 07/06/2033 07:59:00 EDT Subject: colonoscopy recall Due Date/Time: 08/04/2033 07:00:00 EDT Reminder/Recall If patient is in good health, she is due for screening colonoscopy 08/04/2033. Normal [facility] Consent for Procedure/Surger yon 06-10-2023 Consent for Procedure/Surgery [id number] 0TIFF [facility] Ambulatory Visit Summaryon 0 06-09-2023 Ambulatory Visit Summary ADRIANNA BUITRAGO :1950 Visit Date:06/09/2023 Ambulatory Visit Instructions Your Diagnosis Family history of colon cancer Your Care Team Attending Physician - KAVIN FRANKLIN, Issa Oliva Primary Care Physician - [place] FRANKLIN, Jenny This Is Your Medications List cetirizine (cetirizine [...] oral tablet) fluticasone nasal (Flonase 0.05 mg/inh Coats) furosemide (Lasix 20 mg Tab) lactulose (lactulose [...] Unchanged fluticasone nasal (Flonase 0.05 mg/ inh Coats) 2 Sprays Nasal Inhalation Every day Contact [...] for choosing us for your care. Normal [facility] Physician Referralon 024 Physician Referral [id number] 20 [id number] 0TIFF Normal [facility] CALCIUMon 07-02-2022 Calcium [Mass/Vol] 9.8 mg/dL Normal 8.5-10.1 [facility] Comment on above: Performed By: #### C A, CREA #### [facility] [address] [address] [address] Zuly Medina CREATININEon 07-02-2022 Creatinine [Mass/Vol] 1.41 mg/dL Critically high 0.55-1.02 [facility] Comment on above: Performed By: #### C A, CREA #### [facility] [address] [place] [address] Dr. Zuly Medina EGFR-AF GUATEMALAN 44 mL/min/1.73m2 Critically low >=60 [facility] Comment on above: Performed By: #### C A, CREA #### [facility] [address] [address] [address] Zuly Medina EGFR-NON AF GUATEMALAN 37 mL/min/1.73m2 Critically low >=60 [facility] Comment on above: Performed By: #### C A, CREA #### [facility] [address] [place] [address] Dr. Zuly Medina MRI LSPINE WO CONon [...] by: TESSA ESTEVES Date: 2022-06-02 07:58 Normal [facility] VC VENOUS REFLUX NOEL LMTon 0 05-30-2022 VC VENOUS REFLUX NOEL LMT Patient: ADRIANNA BUITRAGODexter Exam Date: 05/30/2022 : 1950 Gender:F Ordering : DR JENNY BURRIS . Admission #: [id number] Family : Order #: [id number] CLICK HERE TO VIEW EXAM RADIOLOGY REPORT [...] thrombus. Compressibility: Normal. Flow: Deep venous reflux. Employee Relations Director: Tech Note: Proximal medial lower leg varicose [...] Esteves MD on 05/30/2022 at 11:20 Normal [facility] STRESS/REST MULTIon 05-26 [place] STRESS/REST MULTI Patient: ADRIANNA BUITRAGO Exam Date: 05/26/2022 : 1950 Gender:F Ordering : JUANITA JENKINS Admission #: [id number] Family : DR JENNY BURRIS . Order #: [id number] CLICK HERE TO VIEW EXAM RADIOLOGY REPORT [...] study was normal per attending physician Dr. Stevens . For more details please see separate [...] exercise portion of study. Please see Dr. Stevens's report. Dictated by: Wei Garcia M.D. on 05/27/2022 at 12:58 Approved by: Wei Garcia M.D. on 05/27/2022 at 13:00 Normal [facility] XR LSPINE MIN 4 VIEWSon 05-07 [...] by: WEI GARCIA Date: 2022-05-23 14:32 Normal [facility] Covid-19 PCR (CVDTB)on 05-07 SARS-CoV-2 (COVID-19) RNA MARY+probe Ql (Unsp spec) Not detected Normal NOT DETECTED [facility] Comment on above: Result Comment: This test is not yet approved or cleared by the [place] FDA. When there are no FDA-approved or cleared tests available, and other criteria are met, FDA can make tests available under an emergency access mechanism called an Emergency Use Authorization (EUA). The EUA for this test is supported by the [employer] Application Developer of Health and Human Service's (HHS's) declaration [...] By: #### C VDTBH #### [facility] [address] [place] [address] Dr. Zuly Medina INFLUENZA A [facility] Normal [facility] Comment on above: Result Comment: Nega tive for Flu A protein angiten. Infection due to Flu A cannot be ruled out. Flu A angiten in the sample may be below the detection limit of the test. Performed By: #### I NFLUAB #### [facility] [address] [place] [address] Dr. Zuly Medina INFLUBNEG SEE BELOW Normal [facility] Comment on above: Result Comment: Nega tive for Flu B protein antigen. Infection due to Flu B cannot be ruled out. Flu B antigen in the sample may be below the detection limit of the test. Performed By: #### I NFLUAB #### [facility] [address] [place] [address] Dr. Zuly Medina INFLUENZA A AG Negative Normal NEGATIVE SEE COMMENT [facility] Comment on above: Performed By: #### I NFLUAB #### [facility] [address] [address] [address] Zuly Medina INFLUENZA B AG Negative Normal NEGATIVE SEE COMMENT [facility] Comment on above: Performed By: #### I NFLUAB #### [facility] [address] [place], [place] [address] Dr. Zuly Medina ECHOCARDIO M/2D COMPLETEon 0 05-14-2022 ECHOCARDIO M/2D COMPLETE Patient: ADRIANNA BUITRAGO Exam Date: 05/14/2022 : 1950 Gender:F Ordering : JUANITA ROMEROAMINADUC Admission #: [id number] Family : DR JENNY BURRIS . Order #: [id number] CLICK HERE TO VIEW EXAM ECHOCARDIOGRAM REPORT [...] Gradient: 2.72 mm[Hg] Right Atrium Dictated by: Homer Stevens M.D. on 05/15/2022 at 18:48 Approved by: Homer Stevens M.D. on 05/15/2022 at 18:51 Normal [facility] MAMM SCREEN 3D NOEL CADon 01-22-2022 MG MAMM SCREEN 3D NOEL CAD Patient: ADRIANNA BUITRAGODexter Exam Date: 01/22/2022 : 1950 Gender:F Ordering : DR JENNY BURRIS . Admission #: [id number] Family : Order #: [id number] CLICK HERE TO VIEW EXAM RADIOLOGY REPORT [...] at age 59. LOCATION: [facility] BREAST COMPOSITION: Scattered areas fibroglandular density. FINDINGS: [...] Garcia M.D. on 01/22/2022 at 14:36 Normal [facility] CALCIUMon 12-31-2021 Calcium [Mass/Vol] 10.0 mg/dL Normal 8.5-10.1 [facility] Comment on above: Performed By: #### Oliverio SIMS CA #### [facility] [address] [address] [address] Zuly Medina CREATININEon 12-31-2021 Creatinine [Mass/Vol] 1.33 mg/dL Critically high 0.55-1.02 [facility] Comment on above: Performed By: #### Olievrio SIMS CA #### [facility] [address] [address] [address] Zuly Medina EGFR-AF GUATEMALAN 48 mL/min/1.73m2 Critically low >=60 [facility] Comment on above: Performed By: #### Oliverio SIMS CA #### [facility] [address] [address] [address] Zuly Medina EGFR-NON AF GUATEMALAN 39 mL/min/1.73m2 Critically low >=60 [facility] Comment on above: Performed By: #### Oliverio SIMS CA #### [facility] [address] [address] [address] Zuly Medina Covid-19 PCR (CVDTBH)on 12-06 SARS-CoV-2 (COVID-19) RNA MARY+probe Ql (Unsp spec) Not detected Normal NOT DETECTED [facility] Comment on above: Result Comment: This test is not yet approved or cleared by the [place] FDA. When there are no FDA-approved or cleared tests available, and other criteria are met, FDA can make tests available under an emergency access mechanism called an Emergency Use Authorization (EUA). The EUA for this test is supported by the [place] of Health and Human Service's (HHS's) declaration [...] By: #### C VDTBH #### [facility] [address] [place] [address] Dr. Zuly Mednia T4, T3U, FTI LABCORPon 11-15 Free Thyroxine Index 2.7 Normal 1.2-4.9 [facility] Comment on above: Performed By: #### C VDTBH #### [facility] [address] [place] [address] Dr. Zuly Medina T3 Uptake 32 % Normal 24-39 [facility] Comment on above: Performed By: #### C VDTBH #### [facility] [address] [place] [address] Dr. Zuly Medina T4 [Mass/Vol] 8.5 ug/dL Normal 4.5-12.0 [facility] Comment on above: Performed By: #### C VDTBH #### [facility] [address] [place] [address] Dr. Zuly Medina VIT D 25-OH LABCORPon 2021 Vitamin D, 25-Hydroxy 114.0 ng/mL Critically high 30.0-100.0 [facility] Comment on above: Result Comment: Jenny min D deficiency has been defined by the [place] of Medicine and an Endocrine Society practice guideline as a level of serum 25-OH vitamin D less than 20 ng/mL (1,2). The Endocrine Society went on to further define vitamin D insufficiency as a level between 21 and 29 ng/mL (2). 1. IOM ([place] of Medicine). 2010. Dietary reference intakes for calcium and D. Steve [place]: The National Academies Press. 2. Anel MF, Chandrika [place], Ronaldo MCCALLUM, et al. Evaluation, treatment, and prevention of vitamin D deficiency: an Endocrine Society clinical practice guideline. JCEM. 2010; 96(7):1911-30. Performed By: #### V ITADLC #### [facility] [address] [place] [address] Dr. Zuly Medina CBC AUTO DIFFon 11-14-2021 BASO # 0.0 103/ul Normal 0.0-0.1 [facility] Comment on above: Performed By: #### Oliverio SIMS CA #### [facility] [address] [address] [address] Zuly Medina Basophils/100 WBC (Bld) 0.4 % Normal 0.2-2.0 [facility] Comment on above: Performed By: #### Oliverio SIMS CA #### [facility] [address] [address] [address] Zuly Medina EO # 0.3 103/ul Normal 0.0-0.7 [facility] Comment on above: Performed By: #### Oliverio SIMS CA #### [facility] [address] [address] [address] Zuly Medina Eosinophils/100 WBC (Bld) 4.1 % Normal 0.9-7.0 [facility] Comment on above: Performed By: #### Oliverio SIMS CA #### [facility] [address] [address] [address] Zuly Medina Erythrocyte distribution width (RBC) [Ratio] 14.1 % Normal 11.0-15.0 [facility] Comment on above: Performed By: #### CHIDI MCDANIEL #### [facility] [address] [place] [address] Dr. Zuly Medina Hematocrit (Bld) [Volume fraction] 36.0 % Normal 36.0-48.0 [facility] Comment on above: Performed By: #### CHIDI MCDANIEL #### [facility] [address] [place] [address] Dr. Zuly Medina Hemoglobin (Bld) [Mass/Vol] 11.6 g/dL Critically low 12.0-16.0 [facility] Comment on above: Performed By: #### CHIDI MCDANIEL #### [facility] [address] [place] [address] Dr. Zuly Medina IG # 0.01 10e3/ul Normal 0.00-0.03 [facility] Comment on above: Performed By: #### CHIDI MCDANIEL #### [facility] [address] [place] [address] Dr. Zuly Medina IG % 0.1 % Normal 0.0-0.5 [facility] Comment on above: Performed By: #### CHIDI MCDANIEL #### [facility] [address] [place] [address] Dr. Zuly Medina LYMPH # 1.3 103/ul Normal 1.2-3.8 [facility] Comment on above: Performed By: #### CHIDI MCDANIEL #### [facility] [address] [place] [address] Dr. Zuly Medina Lymphocytes/100 WBC (Bld) 19.3 % Critically low 20.5-60.0 [facility] Comment on above: Performed By: #### CHIDI MCDANIEL #### [facility] [address] [place] [address] Dr. Zuly Medina MANUAL DIFF REQ NO Normal [facility] Comment on above: Performed By: #### CHIDI MCDANIEL #### [facility] [address] [place] [address] Dr. Zuly Medina MCH (RBC) [Entitic mass] 31.4 pg Normal 26.7-34.0 [facility] Comment on above: Performed By: #### CHIDI MCDANIEL #### [facility] [address] [place] [address] Dr. Zuly Medina MCHC (RBC) [Mass/Vol] 32.2 g/dL Normal 29.9-35.2 [facility] Comment on above: Performed By: #### CHIDI MCDANIEL #### [facility] [address] [place] [address] Dr. Zuly Medina MCV (RBC) [Entitic vol] 97.6 fL Normal 81.0-99.0 [facility] Comment on above: Performed By: #### CHIDI MCDANIEL #### [facility] [address] [place] [address] Dr. Zuly Medina MONO # 0.8 103/ul Normal 0.3-0.8 [facility] Comment on above: Performed By: #### CHIDI MCDANIEL #### [facility] [address] [place] [address] Dr. Zuly Medina Monocytes/100 WBC (Bld) 11.8 % Normal 1.7-12.0 [facility] Comment on above: Performed By: #### CHIDI MCDANIEL #### [facility] [address] [place] [address] Dr. Zuly Medina NEUT # 4.4 103/ul Normal 1.4-6.5 [facility] Comment on above: Performed By: #### CHIDI MCDANIEL #### [facility] [address] [place] [address] Dr. Zuly Medina Neutrophils/100 WBC (Bld) 64.3 % Normal 43.0-75.0 [facility] Comment on above: Performed By: #### CHIDI MCDANIEL #### [facility] [address] [place] [address] Dr. Zuly Medina Platelet mean volume (Bld) [Entitic vol] 10.1 fL Normal 9.5-13.5 [facility] Comment on above: Performed By: #### CHIDI MCDANIEL #### [facility] [address] [address] [address] Zuly Medina PLT 311 103/ul Normal 150-450 [facility] Comment on above: Performed By: #### CHIDI MCDANIEL #### [facility] [address] [address] [address] Zuly Medina RBC 3.69 106/ul Critically low 4.20-5.40 [facility] Comment on above: Performed By: #### CHIDI MCDANIEL #### [facility] [address] [address] [address] Zuly Medina WBC 6.9 103/ul Normal 4.0-11.0 [facility] Comment on above: Performed By: #### CHIDI MCDANIEL #### [facility] [address] [place] [address] Dr. Zuly Medina GLYCOHEMOGLOBIN A1Con 2021 ADA RECOMMENDATION SEE BELOW Normal [facility] Comment on above: Result Comment: ADA RECOMMENDED LIMIT 4.0 - 6.0 ADA THERAPEUTIC TARGET < 7.0 ACTION SUGGESTED > 7.0 Performed By: #### A 1C #### [facility] [address] [address] [address] Zuly Medina Glucose [Mass/Vol] 103 mg/dL Normal [facility] Comment on above: Performed By: #### A 1C #### [facility] [address] [place] [address] Dr. Zuly Medina HbA1c (Bld) [Mass fraction] 5.2 % Normal 4.5-6.2 [facility] Comment on above: Performed By: #### A 1C #### [facility] [address] [place] [address] Dr. Zuly Medina IRONon 11-14-2021 Iron [Mass/Vol] 60.0 ug/dL Normal 50.0-170.0 [facility] Comment on above: Performed By: #### C VDTBH #### [facility] [address] [address] [address] Zuly Medina LIPID PROFILEon 11-14-2021 CHOL-HDL RATIO NORM SEE BELOW Normal [facility] Comment on above: Result Comment: 3.3 - 4.4 LOW RISK 4.4 - 7.1 AVERAGE RISK 7.1 - 11.0 MODERATE RISK >11.0 HIGH RISK Performed By: #### CHIDI MCDANIEL #### [facility] [address] [address] [address] Zuly Medina Cholesterol [Mass/Vol] 145 mg/dL Normal <=200 [facility] Comment on above: Performed By: #### CHIDI MCDANIEL #### [facility] [address] [address] [address] Zuly Medina Cholesterol in HDL [Mass/Vol] 65 mg/dL Critically high 40-60 [facility] Comment on above: Performed By: #### CHIDI MCDANIEL #### [facility] [address] [address] [address] Zluy Medina Cholesterol in LDL [Mass/Vol] 72.2 mg/dL Normal [facility] Comment on above: Performed By: #### CHIDI MCDANIEL #### [facility] [address] [address] [address] Zuly Medina Cholesterol.total/Ch olesterol in HDL [Mass ratio] 2.2 {ratio} Normal [facility] Comment on above: Performed By: #### CHIDI MCDANIEL #### [facility] [address] [address] [address] Zuly Medina HDL NORMAL > or = 60 mg/dl - LO W CARDIOVASCULAR RISK <40 mg/dl - HIGH CARDIOVASCULAR RISK Normal [facility] Comment on above: Performed By: #### [place], [place] #### [facility] [address] [address] [address] Zluy Medina LDL CALC NORMAL SEE BELOW Normal [facility] Comment on above: Result Comment: <100 mg/dl OPTIMAL 100 - 129 mg/dl NEAR OR ABOVE OPTIMAL 130 - 159 mg/dl BORDERLINE HIGH 160 - 189 mg/dl HIGH >190 mg/dl VERY HIGH Performed By: #### CHIDI MCDANIEL #### [facility] [address] [address] [address] Zuly Medina Triglyceride [Mass/Vol] 39 mg/dL Normal <=150 [facility] Comment on above: Performed By: #### CHIDI MCDANIEL #### [facility] [address] [place] [address] Dr. Zuly Medina VLDL CALC 7.8 mg/dL Normal [facility] Comment on above: Performed By: #### CHIDI MCDANIEL #### [facility] [address] [place] [address] Dr. Zuly Medina PROF 14(COMP METB)on 022 Albumin [Mass/Vol] 3.8 g/dL Normal 3.4-5.0 [facility] Comment on above: Performed By: #### CHIDI MCDANIEL #### [facility] [address] [place] [address] Dr. Zuly Medina Albumin/Globulin [Mass ratio] 1.4 {ratio} Normal [facility] Comment on above: Performed By: #### CHIDI MCDANIEL #### [facility] [address] [place] [address] Dr. Zuly Medina ALP [Catalytic activity/Vol] 41 U/L Critically low 46-116 [facility] Comment on above: Performed By: #### CHIDI MCDANIEL #### [facility] [address] [place] [address] Dr. Zuly Medina ALT [Catalytic activity/Vol] 20 U/L Normal 14-59 [facility] Comment on above: Performed By: #### CHIDI MCDANIEL #### [facility] [address] [place] [address] Dr. Zuly Medina Anion gap [Moles/Vol] 8.2 mmol/L Normal [facility] Comment on above: Performed By: #### CHIDI MCDANIEL #### [facility] [address] [place] [address] Dr. Zuly Medina AST [Catalytic activity/Vol] 25 U/L Normal 15-37 [facility] Comment on above: Performed By: #### CHIDI MCDANIEL #### [facility] [address] [place] [address] Dr. Zuly Medina Bilirubin [Mass/Vol] 0.4 mg/dL Normal 0.2-1.0 [facility] Comment on above: Performed By: #### CHIDI MCDANIEL #### [facility] [address] [place] [address] Dr. Zuly Medina Calcium [Mass/Vol] 10.1 mg/dL Normal 8.5-10.1 [facility] Comment on above: Performed By: #### CHIDI MCDANIEL #### [facility] [address] [address] [address] Zuly Medina Chloride [Moles/Vol] 104 mmol/L Normal 98-107 [facility] Comment on above: Performed By: #### CHIDI MCDANIEL #### [facility] [address] [place] [address] Dr. Zuly Medina CO2 [Moles/Vol] 31.6 mmol/L Normal 21.0-32.0 [facility] Comment on above: Performed By: #### CHIDI MCDANIEL #### [facility] [address] [place] [address] Dr. Zuly Medina Creatinine [Mass/Vol] 1.44 mg/dL Critically high 0.55-1.02 [facility] Comment on above: Performed By: #### CHIDI MCDANIEL #### [facility] [address] [place] [address] Dr. Zuly Medina EGFR-AF GUATEMALAN 43 mL/min/1.73m2 Critically low >=60 [facility] Comment on above: Performed By: #### CHIDI MCDANIEL #### [facility] [address] [place] [address] Dr. Zuly Medina EGFR-NON AF GUATEMALAN 36 mL/min/1.73m2 Critically low >=60 [facility] Comment on above: Performed By: #### CHIDI MCDANIEL #### [facility] [address] [place] [address] Dr. Zuly Medina Globulin (S) [Mass/Vol] 2.8 g/dL Normal [facility] Comment on above: Performed By: #### CHIDI MCDANIEL #### [facility] [address] [address] [address] Zuly Medina Glucose [Mass/Vol] 100 mg/dL Normal 74-106 [facility] Comment on above: Performed By: #### CHIDI MCDANIEL #### [facility] [address] [place] [address] Dr. Zuly Medina Potassium [Moles/Vol] 3.8 mmol/L Normal 3.5-5.1 [facility] Comment on above: Performed By: #### CHIDI MCDANIEL #### [facility] [address] [place] [address] Dr. Zuly Medina Protein [Mass/Vol] 6.6 g/dL Normal 6.4-8.2 [facility] Comment on above: Performed By: #### Oliverio SIMS [place] #### [facility] [address] [place] [address] Dr. Zuly Medina Sodium [Moles/Vol] 140 mmol/L Normal 136-145 [facility] Comment on above: Performed By: #### CHIDI MCDANIEL #### [facility] [address] [address] [address] Zuly Medina Urea nitrogen [Mass/Vol] 28.0 mg/dL Critically high 7.0-18.0 [facility] Comment on above: Performed By: #### CHIDI MCDANIEL #### [facility] [address] [place] [address] Dr. Zuly Medina Urea nitrogen/Creatinine [Mass ratio] 19.4 mg/mg Normal [facility] Comment on above: Performed By: #### Oliverio SIMS [place] #### [facility] [address] [place] [address] Dr. Zuly Medina TSHon 11-14-2021 TSH 1.676 uIU/mL Normal 0.358-3.740 [facility] Comment on above: Performed By: #### Oliverio SIMS [place] #### [facility] [address] [place] [address] Dr. Zuly Medina Cov[facility]-19 [facility]05 SARS-CoV-2 (COVID-19) RNA MARY+probe Ql (Unsp spec) Not detected Normal NOT DETECTED [facility] Comment on above: Result Comment: When diagnostic [...] for this test is supported by the [employer] Application Developer of Health and Human Service's declaration that [...] used). Performed By: #### C VDTBH #### [facility] [address] [place] [address] Dr. Zuly Medina CREATININEon 09-18-2021 Creatinine [Mass/Vol] 1.33 mg/dL Critically high 0.55-1.02 [facility] Comment on above: Performed By: #### CHIDI MCDANIEL #### [facility] [address] [place] [address] Dr. Zuly Medina EGFR-AF GUATEMALAN 48 mL/min/1.73m2 Critically low >=60 [facility] Comment on above: Performed By: #### CHIDI MCDANIEL #### [facility] [address] [place] [address] Dr. Zuly Medina EGFR-NON AF GUATEMALAN 39 mL/min/1.73m2 Critically low >=60 [facility] Comment on above: Performed By: #### CHIDI MCDANIEL #### [facility] [address] [place] [address] Dr. Zuly Medina MRI BRAIN WO W [...] Date: 2021-09-18 16:23 Normal [facility] Covid-19 PCR (CVDTB)on 08-05 SARS-CoV-2 (COVID-19) RNA MARY+probe Ql (Unsp spec) Not detected Normal NOT DETECTED [facility] Comment on above: Result Comment: This test is not yet approved or cleared by the [place] FDA. When there are no FDA-approved or cleared tests available, and other criteria are met, FDA can make tests available under an emergency access mechanism called an Emergency Use Authorization (EUA). The EUA for this test is supported by the [place] of Health and Human Service's (HHS's) declaration [...] By: #### C VDTB #### [facility] [address] [place] [address] Dr. Zuly Medina SYMPTOMATIC COVID-19 ANTIGEN on 08-23-2021 EUA Statement SEE BELOW Normal [facility] Comment on above: Result Comment: [...] By: #### C VDTBH #### [facility] [address] [place] [address] Dr. Zuly Medina SARS-CoV-2 (COVID-19) RNA MARY+probe Ql (Unsp spec) Negative Normal NEGATIVE [facility] Comment on above: Performed By: #### C VDTBH #### [facility] [address] [place], [place] [id number] Dr. Zuly Medina Q - Diptheria/Tetanus Abon 0 08-09-2021 DIPHTHERIA ANTITOXOID 0.25 IU/mL Normal [facility] Erp Implementation Consultant Comment on above: Order Comment: [facility] performed at: [employer], [employer], [address], [place], [place], , [employer]agot Heater Helper: Sahil Dyson M.D.,PhD [facility] Date/Time: [facility] [...] analytical performance characteristics have been determined by [employer] [place], [place]. It has not been cleared or approved by the U.S. Food and Drug Administration. This assay has been validated pursuant to the CLIA regulations and is used for clinical purposes. Performed By: #### 2 4729W, 28527S, 32491, 35126W, 80303J, 05329S #### [facility] [address] [place] [address] TETANUS ANTITOXOID 4.67 IU/mL Normal [facility] [place] [facility] Implementation Consultant Comment on above: Order Comment: [facility] performed at: [facility], [employer], [address], [place], [place], , [employer]agot Heater Helper: Sahil Dyson M.D.,PhD [facility] Date/Time: [facility] [...] analytical performance characteristics have been determined by [employer] [place], [place]. It has not been cleared or approved by the U.S. Food and Drug Administration. This assay has been validated pursuant to the CLIA regulations and is used for clinical purposes. Performed By: #### 2 4729W, 28423A, 58731, 68725Z, 36511S, 25654M #### [facility] [address] [place] [address] Q - IGA,SERUMon 08-09-2021 IMMUNOGLOBULIN A 125 mg/dL Normal 70-320 [facility] Specialist Comment on above: Order Comment: [facility] performed at: [employer], [employer] [facility], [address] [facility], [address] [place] [address], [address] [place] [address], Fagot Heater Helper: Thony Haley MD [facility] Date/Time: [facility] Results Received Date/Time: [facility] Reported Date/Time: Performed By: #### 2 4729W, 31606B, 91620, 15408O, 60244Q, 43315V #### [facility] [address] [place] [address] Q - IGE,SERUMon 08-09-2021 IMMUNOGLOBULIN E 44 kU/L Normal [facility] Specialist Comment on above: Order Comment: [facility] performed at: [employer], [employer] [facility], [address] [facility], [address] [place] [address], [address] [place] [address], Fagot Heater Helper: Thony Haley MD [facility] Date/Time: [facility] Received Date/Time: [facility] Reported Date/Time: Performed By: #### 2 4729W, 97484E, 21408, 93646A, 97485R, 63857B #### [facility] [address] [place] [address] Q - IGG,SERUMon 08-09-2021 IMMUNOGLOBULIN G 895 mg/dL Normal 600-1540 [facility] Erp Implementation Consultant Comment on above: Order Comment: [facility] performed at: docplanner, [employer] [facility], [address] , [address] [place] [address], [address] [place] [address], Fagot Heater Helper: Thony Haley MD [facility] Date/Time: [facility] Results Received Date/Time: [facility] Reported Date/Time: Performed By: #### 2 4729W, 85009W, 62960, 98587Z, 76324B, 98205S #### [facility] [address] [place] [address] Q - IGM,SERUMon 08-09-2021 IMMUNOGLOBULIN M 158 mg/dL Normal 50-300 [facility] Specialist Comment on above: Order Comment: [facility] performed at: Q, [employer] [facility], [address], [address] [place], [address], [employer]agot Heater Helper: Thony Haley MD [facility] Date/Time: [facility] Results Received Date/Time: [facility] Reported Date/Time: Performed By: #### 2 4729W, 22122N, 65967, 61951X, 98818S, 77913I #### [facility] [address] [place] [address] Q - Strep pneumo Ab 23 serot ypeson 08-09-2021 SEROTYPE 1 (1) 9.5 Normal [facility] Comment on above: Order Comment: [facility] performed at: [facility], [employer],, [address] [place], [place], , Fagot Heater Helper: Osiris Galdamez MD,PhD,BHANU [facility] Date/Time: [facility] Results Received Date/Time: [facility] Reported Date/Time: Performed By: #### 2 4729W, 03059P, 51013, 41355Y, 19167E, 88632E #### [facility] [address] [place] [address] SEROTYPE 12 (12F) 1.0 Normal [facility] Comment on above: Order Comment: [facility] performed at: [employer], [employer],, [address] [place], [place], , Fagot Heater Helper: Osiris Galdamez MD,PhD,BHANU [facility] Date/Time: [facility] Results Received Date/Time: [facility] Reported Date/Time: Performed By: #### 2 4729W, 13409I, 69971, 86756E, 36654J, 65271M #### [facility] [address] [place] [address] SEROTYPE 14 (14) 3.3 Normal [facility] Comment on above: Order Comment: [facility] performed at: [facility], [facility],, [facility] [place], [place], , Fagot Heater Helper: Osiris Galdamez MD,PhD,BHANU [facility] Date/Time: [facility] Results Received Date/Time: [facility] Reported Date/Time: Performed By: #### 2 4729W, 31019W, 03587, 73045I, 55058Y, 99752N #### [facility] [address] [place] [address] SEROTYPE 17 (17F) 1.2 Normal [facility] Comment on above: Order Comment: [facility] performed at: [employer], [employer],, [facility] [place], , Fagot Heater Helper: Osiris Galdamez MD,PhD,BHANU [facility] Date/Time: [facility] Results Received Date/Time: [facility] Reported Date/Time: Performed By: #### 2 4729W, 63580S, 97737, 27781I, 30734E, 63731C #### [facility] [address] [place] [address] SEROTYPE 19 (19F) 2.8 [facility] Comment on above: Order Comment: [facility] performed at: [facility], [employer],, [address] [place], [place], , Fagot Heater Helper: Osiris Galdamez MD,PhD,BHANU [facility] Date/Time: [facility] Results Received Date/Time: [facility] Reported Date/Time: Performed By: #### 2 4729W, 03820V, 76551, 71886F, 35800R, 62684N #### [facility] [address] [place] [address] SEROTYPE 2 (2) 7.2 Normal [facility] Specialist Comment on above: Order Comment: [facility] performed at: [facility], [employer],, [address] [place], [place], , Fagot Heater Helper: Osiris Galdamez MD,PhD,BHANU [facility] Date/Time: [facility] Received Date/Time: [facility] Reported Date/Time: Performed By: #### 2 4729W, 05042A, 38170, 98485B, 65490M, 19451W #### [facility] [address] [place] [address] SEROTYPE 20 (20) 3.4 Normal [facility] Specialist Comment on above: Order Comment: [facility] performed at: [facility], [employer],, [address] [place], [place] [address], , Fagot Heater Helper: Osiris Galdamez MD,PhD,BHANU [facility] Date/Time: [facility] Results Received Date/Time: [facility] Reported Date/Time: Performed By: #### 2 4729W, 72706I, 04602, 91001G, 01385Q, 20024L #### [facility] [address] [place] [address] SEROTYPE 22 (22F) 5.9 Normal [facility] Comment on above: Order Comment: [facility] performed at: [employer], [employer],, [address] [place], [place], , Fagot Heater Helper: Osiris Galdamez MD,PhD,BHANU [facility] Date/Time: [facility] Results Received Date/Time: [facility] Reported Date/Time: Performed By: #### 2 4729W, 39273K, 19639, 22115H, 33139N, 71496J #### [facility] [address] [place] [address] SEROTYPE 23 (23F) 5.2 Normal [facility] Comment on above: Order Comment: [facility] performed at: [employer], [employer],, [address] [place], [place], , Fagot Heater Helper: Osiris Galdamez MD,PhD,BHANU [facility] Date/Time: [facility] Results Received Date/Time: [facility] Reported Date/Time: Performed By: #### 2 4729W, 41463P, 69498, 15768R, 43237A, 80754V #### [facility] [address] [place] [address] SEROTYPE 26 (6B) 18.8 Normal [facility] Comment on above: Order Comment: [facility] performed at: [employer], [employer],, [address] [place], [place] [address] [place], , Fagot Heater Helper: Osiris Galdamez MD,PhD,BHANU [facility] Date/Time: [facility] Results Received Date/Time: [facility] Reported Date/Time: Performed By: #### 2 4729W, 99228G, 82227, 13765C, 09723K, 49223R #### [facility] [address] [place] [address] SEROTYPE 3 (3) 1.3 Normal [facility] Erp Implementation Consultant Comment on above: Order Comment: [facility] performed at: [employer], [employer],, [address] [place], [place], , Fagot Heater Helper: Osiris Galdamez MD,PhD,BHANU [facility] Date/Time: [facility] Results Received Date/Time: [facility] Reported Date/Time: Performed By: #### 2 4729W, 76801F, 06733, 14788R, 21292Z, 89996C #### [facility] [address] [place] [address] SEROTYPE 34 (10A) 0.9 Normal [facility] Comment on above: Order Comment: [facility] performed at: [employer], [employer],, [address] [place] [address], , Fagot Heater Helper: Osiris Galdamez MD,PhD,BHANU [facility] Date/Time: [facility] Results Received Date/Time: [facility] Reported Date/Time: Performed By: #### 2 4729W, 14076Z, 67522, 20020X, 55196C, 47643M #### [facility] [address] [place] [address] SEROTYPE 4 (4) <0.3 [facility] Specialist Comment on above: Order Comment: [facility] performed at: [employer], [employer],, [address] [place] [address], , Fagot Heater Helper: Osiris Galdamez MD,PhD,BHANU [facility] Date/Time: [facility] Results Received Date/Time: [facility] Reported Date/Time: Performed By: #### 2 4729W, 78365W, 65897, 25441V, 30838Z, 23260B #### [facility] [address] [place] [address] SEROTYPE 43 (11A) 1.1 [facility] Specialist Comment on above: Order Comment: [facility] performed at: [facility], [employer],, [address] [place] [address], , Fagot Heater Helper: Osiris Galdamez MD,PhD,BHANU [facility] Date/Time: [facility] Results Received Date/Time: [facility] Reported Date/Time: Performed By: #### 2 4729W, 09085W, 88203, 69660G, 07354N, 41615K #### [facility] [address] [place] [address] SEROTYPE 5 (5) 2.3 Normal [facility] Specialist Comment on above: Order Comment: [facility] performed at: [employer], [employer],, [address] [place] [address], , Fagot Heater Helper: Osiris Galdamez MD,PhD,BHANU [facility] Date/Time: [facility] Results Received Date/Time: [facility] Reported Date/Time: Performed By: #### 2 4729W, 43281P, 46873, 24743V, 94069Q, 37431K #### [facility] [address] [place] [address] SEROTYPE 51 (7F) 8.4 [facility] Specialist Comment on above: Order Comment: [facility] performed at: [employer], [employer],, [address] [place] [address], , Fagot Heater Helper: Osiris Galdamez MD,PhD,BHANU [facility] Date/Time: [facility] Results Received Date/Time: [facility] Reported Date/Time: Performed By: #### 2 4729W, 18247Q, 83882, 08670N, 72369L, 11825A #### [facility] [address] [place] [address] SEROTYPE 54 (15B) 2.3 Normal [facility] Specialist Comment on above: Order Comment: [facility] performed at: [facility], [facility],, [address] [place], [place], , Fagot Heater Helper: Osiris Galdamez MD,PhD,BHANU [facility] Date/Time: [facility] Results Received Date/Time: [facility] Reported Date/Time: Performed By: #### 2 4729W, 39692U, 60910, 50895E, 34782L, 97436G #### [facility] [address] [place] [address] SEROTYPE 56 (18C) 18.7 [facility] Comment on above: Order Comment: [facility] performed at: [facility], [facility],, [address], [place], [place], , Fagot Heater Helper: Osiris Galdamez MD,PhD,BHANU [facility] Date/Time: [facility] Results Received Date/Time: [facility] Reported Date/Time: Performed By: #### 2 4729W, 83826M, 32300, 20286Z, 69554P, 77731F #### [facility] [address] [place] [address] SEROTYPE 57 (19A) 15.6 [facility] Comment on above: Order Comment: [facility] performed at: [facility], [facility],, [address], [place], [place], , Fagot Heater Helper: Osiris Galdamez MD,PhD,BHANU [facility] Date/Time: [facility] Results Received Date/Time: [facility] Reported Date/Time: Performed By: #### 2 4729W, 51835F, 34307, 75560E, 71851C, 01143B #### [facility] [address] [place] [address] SEROTYPE 68 (9V) 2.1 Normal [facility] Comment on above: Order Comment: [facility] performed at: [employer], [employer],, [address] [place] [address], , Fagot Heater Helper: Osiris Galdamez MD,PhD,BHANU [facility] Date/Time: [id number] [facility] Results Received Date/Time: [facility] Reported Date/Time: Performed By: #### 2 4729W, 93818E, 34474, 09094Q, 35800L, 85331O #### [facility] [address] [place] [address] SEROTYPE 70 (33F) 28.9 Normal [facility] Comment on above: Order Comment: [facility] performed at: [employer], [employer],, [address] [place] [address], , Fagot Heater Helper: Osiris Galdamez MD,PhD,BHANU [facility] Date/Time: [facility] [...] serotype-specific titers may have less robust responses. [employer] uses a multi-analyte immunodetection (MAID) method. The method employs the Morph[employer]ys flow cytometric system which measures multiple analytes [...] analytical performance characteristics have been determined by [employer]. It has not been cleared or approved by FDA. This assay has been validated pursuant to the CLIA regulations and used for clinical purposes. For additional information, please refer to http://education.Viroblock/faq/WAJ520 (This link is being provided for informational/ educational purposes only.) Performed By: #### 2 4729W, 42553W, 25595, 88288F, 99818Z, 71095Y #### [facility] [address] [place] [address] SEROTYPE 8 (8) 14.6 Normal [facility] Erp Implementation Consultant Comment on above: Order Comment: [facility] performed at: [employer],, [address] [place] [address], , Fagot Heater Helper: Osiris Galdamez MD,PhD,BHANU [facility] Date/Time: [facility] Results Received Date/Time: [facility] Reported Date/Time: Performed By: #### 2 4729W, 85511W, 08840, 20616S, 25279B, 09016V #### [facility] [address] [place] [address] SEROTYPE 9 (9N) 1.0 Normal [facility] Erp Implementation Consultant Comment on above: Order Comment: [facility] performed at: [employer], [employer],, [address] [place] [address], , Fagot Heater Helper: Osiris Galdamez MD,PhD,BHANU [facility] Date/Time: [id number] [facility] Results Received Date/Time: [facility] Reported Date/Time: Performed By: #### 2 4729W, 85337R, 30838, 32731B, 56653V, 22572Q #### [facility] [address] [place] [address] CT SINUSES WO CONon 08-06-[address] [...] by: WEI GARCIA Date: 2021-08-05 08:48 Normal [facility] MG MAMM DX 3D LT CADon 08-05 MG MAMM DX 3D LT CAD Patient: ADRIANNA BUITRAGO Exam Date: 08/05/2021 : 1950 Gender:F Ordering : DR JENNY BURRIS . Admission #: [id number] Family : Order #: [id number] CLICK HERE TO VIEW EXAM RADIOLOGY REPORT [...] at age 59. LOCATION: The [facility] BREAST COMPOSITION: Scattered areas fibroglandular density. FINDINGS: [...] 08/05/2021 at 09:25 Normal The [facility] US BREAST LEFT LIMITEDon US BREAST LEFT LIMITED Patient: ADRIANNA BUITRAGODexter Exam Date: 08/05/2021 : 1950 Gender:F Ordering : DR EJNNY BURRIS . Admission #: [id number] Family : Order #: [id number] CLICK HERE TO VIEW EXAM RADIOLOGY REPORT [...] at age 59. LOCATION: The [facility] BREAST COMPOSITION: Scattered areas fibroglandular density. FINDINGS: [...] 08/05/2021 at 09:25 Normal The [facility] Vital Signs Date Time Vital Sign Value Performing Clinician Evelyni von 11-17-2024 13:13-0400 Body height 160 cm Renny COREYM Work Phone: [facility] 11-17-2024 13:13-0400 Body mass index (BMI) [Ratio] 22.85 kg/m2 Renny Orlando DPM Work Phone: [facility] 11-17-2024 13:13-0400 Body weight 58.51 kg Renny Orlando DPM Work Phone: [facility] 11-17-2024 13:13-0400 Respiratory rate 16 /min Renny Orlando DPM Work Phone: [facility] 11-03-2024 09:38-0400 Body height 160 cm Renny Orlando DPM Work Phone: [facility] 11-03-2024 09:38-0400 Body mass index (BMI) [Ratio] 22.85 kg/m2 Renny Brown DPM Work Phone: [facility] 11-03-2024 09:38-0400 Body weight 58.51 kg Renny Brown DPM Work Phone: [facility] 11-03-2024 09:38-0400 Respiratory rate 16 /min Renny Brown DPM Work Phone: [facility] 10-20-2024 11:45-0400 Body height 160 cm Renny Brown DPM Work Phone: [facility] 10-20-2024 11:45-0400 Body mass index (BMI) [Ratio] 22.85 kg/m2 Renny Brown DPM Work Phone: [facility] 10-20-2024 11:45-0400 Body weight 58.51 kg Renny Brown DPM Work Phone: [facility] 10-20-2024 11:45-0400 Respiratory rate 18 /min Renny Brown DPM Work Phone: [facility] 06-16-2024 08:48-0400 Body height 160 cm Renny Brown DPM Work Phone: [facility] 06-16-2024 08:48-0400 Body mass index (BMI) [Ratio] 22.85 kg/m2 Renny Brown DPM Work Phone: [facility] 06-16-2024 08:48-0400 Body weight 58.51 kg Renny Brown DPM Work Phone: [facility] 06-16-2024 08:48-0400 Respiratory rate 18 /min Renny Brown DPM Work Phone: [facility] 02-11-2024 08:33-0500 Body height 160 cm Renny Brown DPM Work Phone: [facility] 02-11-2024 08:33-0500 Body mass index (BMI) [Ratio] 22.85 kg/m2 Renny Brown DPM Work Phone: [facility] 02-11-2024 08:33-0500 Body weight 58.51 kg Renny Orlando DPM Work Phone: [facility] 02-11-2024 08:33-0500 Diastolic blood pressure 80 mm[Hg] Renny Orlando DPM Work Phone: [facility] 02-11-2024 08:33-0500 Heart rate 81 /min Renny Brown DPM Work Phone: [facility] 02-11-2024 08:33-0500 Systolic blood pressure 126 mm[Hg] Renny Brown DPM Work Phone: [facility] 01-28-2024 08:34-0400 Body height 160 cm Renny Orlando DPM Work Phone: [facility] 01-28-2024 08:34-0400 Body mass index (BMI) [Ratio] 22.85 kg/m2 Renny Darion DPM Work Phone: [facility] 01-28-2024 08:34-0400 Body weight 58.51 kg Renny Orlando DPM Work Phone: [facility] 01-28-2024 08:34-0400 Diastolic blood pressure 80 mm[Hg] Renny Orlando DPM Work Phone: [facility] 01-28-2024 08:34-0400 Heart rate 81 /min Renny Orlando DPM Work Phone: [facility] 01-28-2024 08:34-0400 Systolic blood pressure 128 mm[Hg] Renny Brown DPM Work Phone: [facility] 01-14-2024 08:38-0400 Body height 160 cm Renny Brown DPM Work Phone: [facility] 01-14-2024 08:38-0400 Body mass index (BMI) [Ratio] 22.85 kg/m2 Renny Brown DPM Work Phone: [facility] 01-14-2024 08:38-0400 Body weight 58.51 kg Renny Orlando DPM Work Phone: [facility] 01-14-2024 08:38-0400 Respiratory rate 18 /min Renny Brown DPM Work Phone: [facility] 12-31-2023 09:01-0400 Body height 160 cm Renny Orlando DPM Work Phone: [facility] 12-31-2023 09:01-0400 Body mass index (BMI) [Ratio] 22.85 kg/m2 Renny Brown DPM Work Phone: [facility] 12-31-2023 09:01-0400 Body weight 58.51 kg Renny Brown DPM Work Phone: [facility] 12-31-2023 09:01-0400 Diastolic blood pressure 75 mm[Hg] Renny Orlando DPM Work Phone: [facility] 12-31-2023 09:01-0400 Heart rate 75 /min Renny Brown DPM Work Phone: [facility] 12-31-2023 09:01-0400 Respiratory rate 18 /min Renny Darion DPM Work Phone: [facility] 12-31-2023 09:01-0400 Systolic blood pressure 126 mm[Hg] Renny Orlando DPM Work Phone: [facility] 12-17-2023 08:41-0400 Body height 160 cm Renny Brown DPM Work Phone: [facility] 12-17-2023 08:41-0400 Body mass index (BMI) [Ratio] 22.85 kg/m2 Renny Brown DPM Work Phone: [facility] 12-17-2023 08:41-0400 Body weight 58.51 kg Renny Brown DPM Work Phone: [facility] 12-17-2023 08:41-0400 Diastolic blood pressure 74 mm[Hg] Renny Orlando DPM Work Phone: [facility] 12-17-2023 08:41-0400 Heart rate 82 /min Renny Orlando DPM Work Phone: [facility] 12-17-2023 08:41-0400 Systolic blood pressure 125 mm[Hg] Renny Orlando DPM Work Phone: [facility] 12-15-2023 08:08-0400 Body height 160 cm Sandeep Pleitez [employer] Work Phone: [facility] 12-15-2023 08:08-0400 Body mass index (BMI) [Ratio] 22.82 kg/m2 Sandeep Pleitez [employer] Work Phone: [facility] 12-15-2023 08:08-0400 Body weight 58.42 kg Sandeep Pleitez [employer] Work Phone: [facility] 12-15-2023 08:08-0400 Diastolic blood pressure 70 mm[Hg] Sandeep Condonoll [employer] Work Phone: [facility] 12-15-2023 08:08-0400 Systolic blood pressure 118 mm[Hg] Sandeep Condonoll [employer] Work Phone: [facility] 12-03-2023 09:18-0400 Body height 160 cm Renny Orlando DPM Work Phone: [facility] 12-03-2023 09:18-0400 Body mass index (BMI) [Ratio] 22.5 kg/m2 Renny Orlando DPM Work Phone: [facility] 12-03-2023 09:18-0400 Body weight 57.61 kg Renny Orlando DPM Work Phone: [facility] 12-03-2023 09:18-0400 Diastolic blood pressure 79 mm[Hg] Renny Orlando DPM Work Phone: [facility] 12-03-2023 09:18-0400 Heart rate 78 /min Renny Orlando DPM Work Phone: [facility] 12-03-2023 09:18-0400 Systolic blood pressure 128 mm[Hg] Renny Orlando DPM Work Phone: [facility] Healthcare Encounters Encounter Date Encounter Type Care Provider Facility Start: 11-17-2024 End: 11-17-2024 Bamboo flowsheet Renny Orlando DPM Work Phone: [facility] Start: 11-17-2024 End: 11-17-2024 Bamboo flowsheet Renny Orlando DPM Work Phone: [facility] Start: 11-17-2024 End: 11-17-2024 Office outpatient visit 15 minutes Renny Orlando DPM Work Phone: [facility] Comment on above: Tinea corporis (Prim tierra Dx); Verruca plantaris; Foot pain, right; Foot pain, left Start: 11-17-2024 End: 11-17-2024 ambulatory RENNY ORLANDO Not Available Start: 11-07-2024 End: 11-07-2024 ambulatory [facility] Start: 11-03-2024 End: 11-03-2024 Bamboo flowsheet Renny Orlando DPM Work Phone: [facility] Start: 11-03-2024 End: 11-03-2024 Bamboo flowsheet Renny Orlando DPM Work Phone: [facility] Start: 11-03-2024 End: 11-03-2024 Office outpatient visit 15 minutes Renny Orlando DPM Work Phone: [facility] Comment on above: Tinea corporis (Prim tierra Dx); Verruca plantaris; Foot pain, right; Foot pain, left Start: 11-03-2024 End: 11-03-2024 ambulatory RENNY ORLANDO Not Available Start: 10-20-2024 End: 10-20-2024 Bamboo flowsheet Renny Orlando DPM Work Phone: [facility] Start: 10-20-2024 End: 10-20-2024 Bamboo flowsheet Renny Orlando DPM Work Phone: [facility] Start: 10-20-2024 End: 10-20-2024 Patient encounter procedure Renny Orlando DPM Work Phone: [facility] Comment on above: Verruca plantaris (P rimary Dx); Foot pain, right; Foot pain, left; Pain due to onychomycosis of toenails of both feet Start: 10-20-2024 End: 10-20-2024 ambulatory RENNY ORLANDO Not Available Start: 08-12-2024 End: 08-15-2024 Refill Keila Faith MD Work Phone: [facility] Comment on above: Mild intermittent as thma without complication (CMS/HCC) Start: 06-16-2024 End: 06-16-2024 Patient encounter procedure Renny Orlando DPM Work Phone: [facility] Comment on above: Verruca plantaris (P rimary Dx); Foot pain, right; Foot pain, left Start: 06-16-2024 End: 06-16-2024 ambulatory RENNY ORLANDO Not Available Start: 04-29-2024 End: 04-29-2024 ambulatory [facility] Start: 04-07-2024 End: 04-07-2024 Bamboo flowsjaylon Faith MD Work Phone: [facility] Start: 04-07-2024 End: 04-07-2024 Bamstan flowsjaylon Faith MD Work Phone: [facility] Start: 04-07-2024 End: 04-07-2024 Office outpatient visit 15 minutes Keila Faith MD Work Phone: [facility] Comment on above: Asthma, allergic, mi ld intermittent, uncomplicated (CMS/HCC) (Primary Dx) Start: 04-07-2024 End: 04-07-2024 ambulatory KEILA FAITH Not Available Start: 02-11-2024 End: 02-11-2024 Bamboo flowsheet Renny Orlando DPM Work Phone: [facility] Start: 02-11-2024 End: 02-11-2024 Bamboo flowsheet Renny Frank Brown DPM Work Phone: [facility] Start: 02-11-2024 End: 02-11-2024 Patient encounter procedure Renny Frank Darion DPM Work Phone: [facility] Comment on above: Verruca plantaris (P rimary Dx); Foot pain, right; Foot pain, left Start: 02-11-2024 End: 02-11-2024 ambulatory RENNY ORLANDO Not Available Start: 01-28-2024 End: 01-28-2024 Bamboo flowsheet Renny Frank Brown DPM Work Phone: [facility] Start: 01-28-2024 End: 01-28-2024 Bamboo flowsheet Renny Frank Brown DPM Work Phone: [facility] Start: 01-28-2024 End: 01-28-2024 Patient encounter procedure Renny Orlando DPM Work Phone: [facility] Comment on above: Verruca plantaris (P rimary Dx); Foot pain, right; Foot pain, left Start: 01-28-2024 End: 01-28-2024 ambulatory RENNY ORLANDO Not Available Start: 01-14-2024 End: 01-14-2024 Bamboo flowsheet Renny Frank Brown DPM Work Phone: [facility] Start: 01-14-2024 End: 01-14-2024 Bamboo flowsheet Renny Frank Brown DPM Work Phone: [facility] Start: 01-14-2024 End: 01-14-2024 Patient encounter procedure Renny Frank Orlando DPM Work Phone: [facility] Comment on above: Verruca plantaris (P rimary Dx); Foot pain, right; Foot pain, left Start: 01-14-2024 End: 01-14-2024 ambulatory RENNY Frank DARION Not Available Start: 12-31-2023 End: 12-31-2023 Bamboo flowsheet Renny rFank Darion DPM Work Phone: [facility] Start: 12-31-2023 End: 12-31-2023 Bamboo flowsheet Renny Marie Darion DPM Work Phone: [facility] Start: 12-31-2023 End: 12-31-2023 Patient encounter procedure Renny Marie Darion DPM Work Phone: [facility] Comment on above: Verruca plantaris (P rimary Dx); Foot pain, right; Foot pain, left Start: 12-31-2023 End: 12-31-2023 ambulatory RENNY Frank DARION Not Available Start: 12-17-2023 End: 12-17-2023 Bamboo flowsheet Renny A Darion DPM Work Phone: [facility] Start: 12-17-2023 End: 12-17-2023 Bamboo flowsheet Renny Marie Darion DPM Work Phone: [facility] Start: 12-17-2023 End: 12-17-2023 Patient encounter procedure Renny Orlando DPM Work Phone: [facility] Comment on above: Verruca plantaris (P rimary Dx); Foot pain, right; Onychomycosis; Toe pain, bilateral; Xerosis cutis; Foot pain, left Start: 12-17-2023 End: 12-17-2023 ambulatory RENNY Frank DARION Not Available Start: 12-15-2023 End: 12-15-2023 Bamboo flowsheet Sandeep Pleitez SUPER[employer]OR [employer] Work Phone: [facility] Start: 12-15-2023 End: 12-15-2023 Bamboo flowsheet Sandeep Pleitez SUPER[employer]OR [employer] [facility] [address] Start: 12-15-2023 End: 12-15-2023 Office outpatient visit 15 minutes Sandeep Pleitez SUPER[employer] [facility] [facility] Comment on above: Migraine with aura [...] encounter procedure Renny Orlando DPM Work Phone: [facility] Comment on above: Verruca plantaris (P rimary Dx); Foot pain, right; Foot pain, left; Onychomycosis; Toe pain, bilateral; Xerosis cutis Start: 12-03-2023 End: 12-03-2023 ambulatory RENNY ORLANDO Not Available Start: 08-05-2023 End: 08-06-2023 ambulatory Issa VALE Facility:CD:[id number] Start: 06-09-2023 End: 06-10-2023 ambulatory Issa VALE Facility:[facility] Start: 06-02-2023 ambulatory Issa VALE Facility:[facility] Start: 05-28-2023 ambulatory Issa VALE Facility:[facility] Start: 05-14-2023 Chart abstracting Renny lorenzana DPM Work Phone: [facility] Start: 07-02-2022 End: 07-02-[address] JENNY [...] ambulatory DR JENNY BURRIS . Facility:[facility] Start: 01-22-2022 End: 01-23-[address] JENNY [...] Start: 01-11-2025 End: 01-11-2025 Patient encounter procedure [facility] Start: 12-14-2024 End: 12-14-2024 Patient encounter procedure [facility] [address] Start: 12-05-2024 Influenza vaccination [facility] Start: 11-17-2024 End: 11-17-2024 Office outpatient visit 15 minutes 11/17/2024 1:30 PM EDT Office Visit [facility] [address] [place] [address] Renny Orlando DPM [address] [address] Verruca plantaris (Primary Dx); Foot pain, right; Tinea corporis; Foot pain, left [facility] Comment on above: Verruca plantaris (P rimary Dx); Foot pain, right; Tinea corporis; Foot pain, left Start: 11-03-2024 End: 11-03-2024 Patient encounter procedure [facility] Comment on above: Verruca plantaris (P rimary Dx); Foot pain, right; Foot pain, left Start: 10-20-2024 End: 10-20-2024 Patient encounter procedure 10/20/2024 11:50 AM EDT Office Visit [facility] [address] [address] Renny Orlando DPM [address] [address] Verruca plantaris (Primary Dx); Foot pain, right; Foot pain, left [facility] Comment on above: Verruca plantaris (P rimary Dx); Foot pain, right; Foot pain, left Start: 08-25-2024 End: 08-25-2024 Patient encounter procedure 08/25/2024 9:10 AM EDT Procedure Visit [facility] [address] [address] Renny Orlando DPM [address] [address] [facility] Start: 04-18-2024 End: 04-18-2024 Patient encounter procedure 04/18/2024 9:20 AM EST Office Visit [facility] [address] [place] [phone] Keila Faith MD [address] [place] [address] [facility] Start: 04-07-2024 End: 04-07-2024 Patient encounter procedure 04/07/2024 9:20 AM EST Office Visit [facility] [address] [facility] [address] [place] [address] Keila Faith MD [address] [facility] [address] [place] [address] Arrived [facility] Comment on above: [...] Office Visit [facility] [address] [phone] Rneny Orlando DPM [address] [address] Verruca plantaris (Primary Dx); Foot pain, right; Foot pain, left [facility] Comment on above: Verruca plantaris (P rimary Dx); Foot pain, right; Foot pain, left Start: 12-31-2023 End: 12-31-2023 Patient encounter procedure 12/31/2023 9:10 AM EDT Office Visit [facility] [address] [phone] Renny Orlando DPM [address] [address] Verruca plantaris (Primary Dx); Foot pain, right; [...] procedure 12/14/2023 9:20 AM EDT [facility] [address] [facility] [address] [place] [address] Keila Faith MD [address] [address] [facility] Start: 12-06-2023 Influenza vaccination Influenza Vacc ine (#1) [facility] Start: 12-03-2023 End: 12-03-2023 Patient encounter procedure 12/03/2023 9:30 AM EDT Procedure Visit [facility] [address] [address] Renny Orlando DPM [address] [facility] [address] [place] [address] Verruca plantaris (Primary Dx); Foot pain, right; Foot pain, left; Onychomycosis; Toe pain, bilateral; Xerosis cutis [facility] Comment on above: Verruca plantaris (P rimary Dx); Foot pain, right; Foot pain, left; Onychomycosis; Toe pain, bilateral; Xerosis cutis Start: 05-14-2023 End: 05-14-2023 Patient encounter procedure 05/14/2023 8:40 AM EST Office Visit [facility] [address] [address] Renny Orlando, DPSobia [address] [address] [facility] Start: 12-05-2022 Influenza vaccination Influenza Vacc ine (#1) [facility] Start: 10-27-2018 Pneumococcal Vaccine : 65+ Years (2 - PPSV23 or PCV20) Pneumococcal Vaccine: 65+ Years (2 - PPSV23 or PCV20) [facility] Start: 10-27-2018 Pneumococcal Vaccine : 65+ Years (2 of 2 - PPSV23 or PCV20) Pneumococcal Vaccine: 65+ Years (2 of 2 - PPSV23 or PCV20) [facility] Start: 10-27-2018 Pneumococcal Vaccine : 65+ Years (2 of 2 - PPSV23) Pneumococcal Vaccine: 65+ Years (2 of 2 - PPSV23) [facility] Start: 1989 Screening for malign ant neoplasm of breast Mammogram [facility] Start: 1950 Screening for malign ant neoplasm of colon [facility] Payers Date Payer Category Payer Private Health Insurance [id number] 2021 Unknown [employer] [id number] 2021-Present [address] [place] [address] [id number] 2014 Medicare [id number] 1959 Medicare [id number] 1959 Unknown [id number] 1950 Unknown [id number] 2.16.840.1.149469.3.579.2.5 93 1949 Unknown [id number] .16.840.1.087617.3.579.2.5 93 1949 Unknown [id number] 2.16.840.1.468014.3.579.2.5 93 1949 Unknown [id number] 2.16.840.1.284088.3.579.2.5 93 1949 Unknown [id number] 2.16.840.1.362807.3.579.2.5 93 1949 Unknown [id number] 2.16.840.1.772272.3.579.2.5 93 1949 Unknown [id number] 2.16.840.1.305168.3.579.2.5 93 1949 Unknown [id number] 2.16.840.1.002653.3.579.2.5 93 1949 Unknown [id number] 2.16.840.1.152791.3.579.2.5 93 1949 Unknown [id number] 2.16.840.1.241386.3.579.2.5 93 1949 Unknown [id number] 2.16.840.1.789707.3.579.2.5 93 1949 Unknown [id number] 2.16.840.1.564500.3.579.2.5 93 1949 Unknown [id number] 2.16.840.1.561126.3.579.2.5 93 1949 Unknown [id number] 2.16.840.1.493271.3.579.2.5 93 1949 Unknown [id number] 2.16.840.1.451538.3.579.2.5 93 1949 Unknown [id number] 2.16.840.1.389332.3.579.2.5 93 1949 Unknown [id number] 2.16.840.1.545177.3.579.2.7 27 1949 Unknown [id number] 2.16.840.1.484589.3.579.2.7 27 1949 Unknown [id number] 2.16.840.1.593349.3.579.2.1 259 1949 Unknown [id number] 2.16.840.1.210132.3.579.2.1 259 1949 Unknown [id number] 2.16.840.1.006615.3.579.2.1 259 1949 Unknown [id number] 2.16.840.1.948121.3.579.2.1 259 1949 Unknown [id number] 2.16.840.1.124498.3.579.2.1 259 1949 Unknown [id number] 2.16.840.1.313041.3.579.2.1 259 1949 Unknown [id number] 2.16.840.1.627525.3.579.2.1 259 1949 Unknown [id number] 2.16.840.1.261525.3.579.2.1 259 1949 Unknown [id number] 2.16.840.1.719243.3.579.2.1 259 1949 Unknown [id number] 2.16.840.1.859937.3.579.2.1 259 1949 Unknown [id number] 2.16.840.1.852933.3.579.2.1 259 1949 Unknown [id number] 2.16.840.1.317948.3.579.2.1 259 Social History Date Type Detail Facility Start: 04-30-2023 End: 12-03-2023 Tobacco smoking status [facility] Ex-smoker [facility] End: 04-06-2006 History of tobacco use Current smoker [facility] End: 04-06-2006 History of tobacco use Cigarette Smoker [facility] History of tobacco use Passive smoker [facility] Healthcare Start: 04-30-2023 End: 12-03-2023 Tobacco use and exposure Smokeless tobacco non-user [facility] Start: 05-14-2023 End: 12-03-2023 Alcohol intake Lifetime non-drinker (finding) [facility] Start: 04-30-2023 End: 11-03-2024 History of Social function [facility] Start: 04-30-2023 End: 11-03-2024 Tobacco use panel [facility] Start: 12-12-2022 Alcohol Comment Caffeine intake: non e [facility] Start: 1950 Sex Assigned At Not on file N [facility] Start: 12-31-2023 End: 11-17-2024 Alcoholic beverage intake Ex-drinker (finding) [facility] Start: 12-14-2023 Alcohol Comment Caffeine intak e: none; quit in 2014 [facility] Clinical Notes 05-26-2022 to 11-17-2024 Renny Orlando, LEORA - 11/17/2024 1:30 PM Tyron Orlando DPM - 10/20/2024 11:50 AM Tyron Orlando DPM - 06/16/2024 9:00 AM Ysabel Faith MD - 04/07/2024 9:20 AM EST Note Date & Type Note Facility 11-17-2024 History of Present illness Narrative Patient: Adrianna [...] b.I.d. basis., Disp: 30 mL, Rfl: 11 Jjzaubr-Wkgbrdpggfd-Avszgbnoob (Breztri [employer]) 160-9-4.8 MCG/ACT aerosol, Inhale 1 [...] Partner Violence: Unknown (05/28/2023) Received from [facility] [place] [facility] Fear of [...] Renny Orlando DPM documented in this encounter [facility] 11-07-2024 Note IN Cardiology - [facility] Subjective Adrianna Buitrago is a 74 y.o. year old female patient being seen for 6 month follow up. Patient states she is doing well. Patient states she does have occasional leg swelling, leg pain, leg cramps, patient states she states tired all the time, occasional chest discomfort which patient states it comes and goes pretty quickly. Patient Active Problem List Diagnosis Chest pain Chronic kidney disease Family history of premature coronary heart disease Hyperlipidemia Mitral valve regurgitation Tricuspid valve regurgitation Severe persistent asthma (CMS/HCC) Acute bronchiolitis Migraine with aura and without status migrainosus, not intractable Family History Problem Relation Name Age of Onset Heart attack Father Coronary artery disease Sister Peripheral vascular disease Sister Heart attack Brother Social History Tobacco Use Smoking status: Former Current packs/day: 0.00 Types: Cigarettes Quit date: 2006 Years since quittin.6 Smokeless tobacco: Never Substance Use Topics Alcohol use: Not Currently Drug use: Defer GEOVANY Adrianna is seen for follow-up. This is the first time I am meeting her. She is to see Dr. Juanita Jenkins from our group. She has a history of hypertension and hyperlipidemia. In the past she was evaluated in our office because of atypical chest pain. She had a negative nuclear perfusion cardiac scan. Her pain resolved. She also has a history of lower extremity edema and was investigated in the past and wears compression stockings for reflux. She is also maintained on diuretic therapy. She has chronic kidney disease that fluctuates over time most recently in the 3B range. She also was diagnosed with asthma/COPD and is maintained on inhaler therapy and sees pulmonary. Today she reports that she has complaints of fatigue and tiredness. She gets occasional symptoms of chest discomfort that are pretty short-lived. They do not bother her. No significant chest pain. She does complain of lower extremity swelling especially if she does not take her furosemide which she takes every other day. She says at the end of the day if she does not take the furosemide she cannot wear her shoes. She denies palpitations. Review of Systems Constitutional: Positive for malaise/fatigue. Cardiovascular: Positive for chest pain and leg swelling. Objective Visit Vitals BP 134/60 (BP Location: Right arm, Patient Position: Sitting) Pulse 53 Ht 1.6 m (5' 3 ) Wt 58.5 kg (129 lb) SpO2 100% BMI 22.85 kg/m??? Smoking Status Former BSA 1.61 m??? Physical Exam Constitutional: Appearance: She is well-developed. She is not ill-appearing. HENT: Head: Normocephalic and atraumatic. Nose: Nose normal. Eyes: General: No scleral icterus. Pupils: Pupils are equal, round, and reactive to light. Neck: Thyroid: No thyromegaly. Vascular: No JVD. Cardiovascular: Rate and Rhythm: Normal rate and regular rhythm. Pulses: Radial pulses are 2+ on the right side and 2+ on the left side. Heart sounds: Normal heart sounds. No murmur heard. No friction rub. No gallop. Pulmonary: Effort: Pulmonary effort is normal. No respiratory distress. Breath sounds: Normal breath sounds. No wheezing or rales. Chest: Chest wall: No tenderness. Abdominal: General: Bowel sounds are normal. There is no distension. Palpations: Abdomen is soft. Tenderness: There is no abdominal tenderness. Musculoskeletal: General: No swelling. Cervical back: Neck supple. Skin: General: Skin is warm and dry. Neurological: General: No focal deficit present. Mental Status: She is alert and oriented to person, place, and time. Psychiatric: Mood and Affect: Mood normal. Behavior: Behavior is cooperative. Judgment: Judgment normal. Allergies Allergies Allergen Reactions Amoxicillin Unknown Mold Unknown Morphine Itching Medications Current Outpatient Medications: albuterol 2.5 mg /3 mL (0.083 %) nebulizer solution, INHALE 3 ML EVERY 6 HOURS NEEDED, Disp: , Rfl: aspirin 81 mg EC tablet, 1 (one) time each day at the same time., Disp: , Rfl: azelastine (Astelin) 137 mcg (0.1 %) nasal spray, Administer 2 sprays into each nostril in the morning and at bedtime., Disp: , Rfl: bmbtzncssa-dzhbadnp-qxcbyoyjfj (Breztri Aerosphere) 160-9-4.8 mcg/actuation HFA aerosol inhaler, every 12 (twelve) hours., Disp: , Rfl: cloNIDine (Catapres) 0.1 mg tablet, Take 0.1 mg by mouth in the morning and at bedtime., Disp: , Rfl: denosumab (Prolia) 60 mg/mL syringe, 1 injection, Disp: , Rfl: fenofibrate (Lofibra) 160 mg tablet, Take 160 mg by mouth in the morning., Disp: , Rfl: fluticasone (Flonase) 50 mcg/actuation nasal spray, Administer 2 sprays into each nostril in the morning., Disp: , Rfl: furosemide (Lasix) 20 mg tablet, Take 20 mg by mouth 4 (four) times a week. (Patient taking differently: Take 20 mg by chino (more content not included)... [facility] 10-20-2024 History of Present illness Narrative Patient: Adrianna Buitrago : 1950 PCP: Jenny Burris MD SUBJECTIVE Patient presents today for follow up of skin lesion/neoplasm of unknown origin to the right and left foot Pt states that previous treatment of acid tx with some improvement Pt rates pain the pain on a 1-10 scale an intensity of 7 Pt presents today for followup. Patient presents today with a CC of elongated, thick nails. Pt states nails have been elongated and thick for many years and cause pain with ambulation in shoegear. Pt has tried previous treatment with minimal relief. Pt presents today for nail care and treatment. Allergies: Allergies Allergen Reactions Amoxicillin Itching, Other [...] b.I.d. basis., Disp: 30 mL, Rfl: 11 Cfekbxv-Lhckasvrgnm-Ztwqehosvp (Breztri Aerosphere) 160-9-4.8 MCG/ACT aerosol, Inhale 1 [...] Types: Cigarettes Quit date: 04/06/2006 Years since quittin.5 Passive exposure: Past Smokeless tobacco: Never Vaping [...] Partner Violence: Unknown (05/28/2023) Received from [facility] Environment Fear of [...] pain, right 3. Foot pain, left 4. Pain due to onychomycosis of toenails of both feet PLAN Application of salinocaine acid medication to lesion/lesions located at right foot Informed pt of risks and benefits of procedure including high reoccurence rate, infection, pain and consent given. Application of DSD post procedure. Discussed proper foot care with patient today. Debride nails in length and thickness digits 1 through 10 Continue creams twice daily to feet. Renny Orlando DPM documented in this encounter [facility] 06-16-2024 History of Present illness Narrative Patient: [...] b.I.d. basis., Disp: 30 mL, Rfl: 11 Anytjtd-Hbfapkffksx-Rrboaarvpc (Breztri Aerosphere) 160-9-4.8 MCG/ACT aerosol, Inhale 1 [...] Partner Violence: Unknown (05/28/2023) Received from [facility] [place] [facility] Environment Fear of [...] Renny Orlando DPM documented in this encounter [facility] 04-29-2024 Note Cardiology Follow Up Progress Note HPI: Adrianna Buitrago is a 73 y.o. female with [...] nostril in the morning and at bedtime. wkvpzmqxhm-qdgsqjef-aqrfdgbblt (Breztri Aerosphere) 160-9-4.8 mcg/actuation HFA aerosol inhaler [...] in 6 months, or sooner as needed Juanita Jenkins MD Interventional Cardiology [facility] 04-07-2024 History of Present illness Narrative Adrianna [...] medications or symptoms. documented in this encounter [facility] 02-11-2024 History of Present illness Narrative [...] b.I.d. basis., Disp: 30 mL, Rfl: 11 Eagnmnl-Yutfjdgqeqj-Okhhiydkdt (Breztri Aerosphere) 160-9-4.8 MCG/ACT aerosol, Inhale 1 [...] Partner Violence: Unknown (05/28/2023) Received from [facility], [facility] [place] [facility] Fear of [...] Renny Orlando DPM documented in this encounter [facility] 01-28-2024 History of Present illness Narrative [...] b.I.d. basis., Disp: 30 mL, Rfl: 11 Yrzgych-Gfahijilqkn-Xtmwmzykon (Breztri Aerosphere) 160-9-4.8 MCG/ACT aerosol, Inhale 1 [...] Partner Violence: Unknown (05/28/2023) Received from [facility], [facility] [place] [facility] Fear of [...] Renny Orlando DPM documented in this encounter [facility] 01-14-2024 History of Present illness Narrative [...] intervertebral disc History of varicose veins Hyperlipidemia ([facility]/HCC) Hypertension (CMS/HCC) Hyperthyroidism (CMS/HCC) Kidney disease Osteoarthritis Osteoporosis (CMS/HCC) Varicose vein of leg Medications: Current Outpatient Medications: aspirin 81 MG EC tablet, 1 (one) time each day at the same time., Disp: , Rfl: azelastine (Astelin) 0.1 % nasal spray, Azelastine HCl Two sprays per nostril on a b.I.d. basis., Disp: 30 mL, Rfl: 11 Xxgusco-Kyhucnrrkvz-Vwipktxjqi (Breztri Opp.iophere) 160-9-4.8 MCG/ACT aerosol, Inhale 1 puff Daily, [...] Partner Violence: Unknown (05/28/2023) Received from [facility], [facility] [place] [facility] Fear of [...] Renny Orlando DPM documented in this encounter [facility] 12-31-2023 History of Present illness Narrative Patient: Adrianna Lathamman : 1950 PCP: Jenny Burirs MD SUBJECTIVE Patient presents today for follow [...] b.I.d. basis., Disp: 30 mL, Rfl: 11 Narfmuy-Vucdfctsnin-Xnafwwufjx (Breztri Aerosphere) 160-9-4.8 MCG/ACT aerosol, Inhale 1 [...] Partner Violence: Unknown (05/28/2023) Received from [facility] [place] [facility] Fear of [...] Renny Orlando DPM documented in this encounter [facility] 12-17-2023 History of Present illness Narrative [...] Partner Violence: Unknown (05/28/2023) Received from [facility], [facility] [place] [facility] Fear of [...] Renny Orlando DPM documented in this encounter [facility] 12-15-2023 History of Present illness Narrative [...] spray; Commonly known as: Astelin; Azelastine HCl Breztri Aerosphere 160-9-4.8 MCG/ACT aerosol; Generic drug: Hbrbsxk-Qzkthpextvi-Mpieicpjei budesonide 1 MG/2ML nebulizer solution; Commonly known [...] wrist extensors , wrist flexor , and sap developer strength 5/5. LUE strength deltoid , biceps , triceps , wrist extensors , wrist flexor , and sap developer strength 5/5. RLE strength iliopsoas, quadriceps, tibialis [...] reflex 1+. LLE Knee reflex 1+. Coordination: Zjkkbl-ia-nboe testing normal. Rapid alternating movements are normal. [...] new or worsening symptoms. Sandeep Pleitez NP [facility] documented in this encounter [facility] 12-03-2023 History of Present illness Narrative Patient: Adrianna Ayon Buitrago : 1950 PCP: Jenny Burris MD [...] Partner Violence: Unknown (05/28/2023) Received from [facility] [place] [facility] Fear of [...] Renny Orlando DPM documented in this encounter [facility] 06-09-2023 Note Chief Complaint consultation for [...] in stools, no abd complaints; last colonoscopy 2019 wnl; abd operations significant for SUE with [...] 1 tab(s), Oral, Daily Flonase 0.05 mg/inh Coats, 2 spray(s), Nasal, Daily lactulose 10 g/15 [...] mEq= 1 tab(s (more content not included)... [facility] Comment on above: Result Comment: Elec tronically Signed By: KAVIN FRANKLIN, Issa Hi\Date and Time Signed: 06/09/23 08:28 EST 05-26-2022 Note CARDIAC STRESS TEST Requesting Physician: Procedure Date:05/26/2022 This is a treadmill stress test with myocardial perfusion imaging, performed at the [facility] on 05/26/2022. Informed consent was obtained. The [...] is associated with low risk for terminal system operator cardiac events. 4. Myocardial perfusion images will be reported separately. The [facility] Evaluation note Diagnosis Verruca plantaris- Primary Plantar wart Foot pain, right Pain in soft tissues of limb Foot pain, left Pain in soft tissues of limb [facility] Diagnosis Verruca plantaris- Primary Plantar wart Foot pain, right Pain in soft tissues of limb Foot pain, left Pain in soft tissues of limb documented in this encounter [facility]* Diagnosis Verruca plantaris- Primary Plantar [...] complication (CMS/HCC) [facility] Diagnosis Verruca plantaris- Primary Plantar wart Foot pain, right Pain in soft tissues of limb Foot pain, left Pain in soft tissues of limb Pain due to onychomycosis of toenails of both feet [facility]* Diagnosis Tinea corporis- Primary Dermatophytosis of the body Verruca plantaris Plantar wart Foot pain, right Pain in soft tissues of limb Foot pain, left Pain in soft tissues of limb [facility] Diagnosis Tinea corporis- Primary Dermatophytosis of the body Verruca plantaris Plantar wart Foot pain, right Pain in soft tissues of limb Foot pain, left Pain in soft tissues of limb documented in this encounter [facility] HealthcareHistory of Present illness Narrative* Renny Orlando DPM - 11/03/2024 9:50 AM EDT Patient: Adrianna Buitrago : 1950 PCP: Jenny Burris MD SUBJECTIVE Patient presents today for follow up of skin lesion/neoplasm of unknown origin to the right and left foot Pt states that previous treatment of acid tx with some improvement Pt rates pain the pain on a 1-10 scale an intensity of 4 Pt presents today for followup. Patient also has rash like lesion that is been present for the past month and does itch slightly and denies any treatment to the right leg Allergies: Allergies Allergen Reactions Amoxicillin Itching, Other [...] b.I.d. basis., Disp: 30 mL, Rfl: 11 Gfyjfgf-Qmeugykcsjf-Dhwbvzgghh (Breztri Aerosphere) 160-9-4.8 MCG/ACT aerosol, Inhale 1 [...] Types: Cigarettes Quit date: 04/06/2006 Years since quittin.5 Passive exposure: Past Smokeless tobacco: Never Vaping [...] Partner Violence: Unknown (05/28/2023) Received from [facility] [place] [facility] Fear of [...] or erythema Right chavez region has a 1 cm x 1 cm well-defined round like [...] pain, right 3. Foot pain, left 4. Tinea corporis PLAN patient education concerning tinea infection. Discussed use of antifungal cream and foot powders aswell as good foot hygiene and prevention measures. Patient was given a prescription today for antifungal. Application of salinocaine acid medication to lesion/lesions located at right foot Informed pt of risks and benefits of procedure including high reoccurence rate, infection, pain andconsent given. Application of DSD post procedure. Continue creams twice daily to feet. Renny Orlando DPM [facility] Purpose Family History No Family History Records FoundNo Family History Records FoundNo Family History Records FoundNo Family History Records FoundNo Family History Records Found Advance Directives No Advanced Directives Records FoundNo Advanced Directives Records FoundNo Advanced Directives Records FoundNo Advanced Directives Records FoundNo Advanced Directives Records Found Additional Source Comments INFORMATION SOURCE (unrecogn ized section and content) DATE CREATED AUTHOR 08/17/2021 [facility] Me dical Specialist DATE CREATED AUTHOR AUTHOR'S ORGANIZ ATION 07/05/2022 [facility] DATE CREATED AUTHOR AUTHOR'S ORGANIZ ATION [facility]20[facility] DATE CREATED AUTHOR AUTHOR'S ORGANIZ ATION 11/08/2024 [facility] DATE CREATED AUTHOR AUTHOR'S ORGANIZ ATION 11/19/2024 [facility] dical Specialists EPIC Care Teams (unrecognized sec tion and content) [employer] Relationship Specialty Start Date End Date Jenny Burris MD [address] [place] [address] PCP - General Family Medicine 04/30/23 [employer] Relationship Specialty Start Date End Date Jenny Burris MD [address] [place] [address] PCP - General Family Medicine 04/30/23 [employer]er [employer] Relationship Specialty Start Date End Date Jenny Burris MD [address] [place] [address] PCP - General Family Medicine 04/30/23 Assembler [employer] Relationship Specialty Start Date End Date Jenny Burris MD [address] [place] [address] PCP - General Family Medicine 04/30/23 Assembler [employer] Relationship Specialty Start Date End Date Jenny Burris MD [address] [place] [address] PCP - General Family Medicine 04/30/23 Assembler [employer] Relationship Specialty Start Date End Date Jenny Burris MD [address] [facility] [place] [address] PCP - General Family Medicine 04/30/23 Assembler [employer] Relationship Specialty Start Date End Date Jenny Burris MD [address] [facility] [place] [address] PCP - General Family Medicine 04/30/23 Assembler [employer]ushes Relationship Specialty Start Date End Date Jenny Burris MD [address] [facility] [place] [address] PCP - General Family Medicine 04/30/23 Assembler [employer]ushes Relationship Specialty Start Date End Date Jenny Burris MD [address] [facility] [place] [address] PCP - General Family Medicine 04/30/23 Assembler [employer] Relationship Specialty Start Date End Date Jenny Burris MD [address] [facility] [place] [address] PCP - General Family Medicine 04/30/23 Assembler [employer] Relationship Specialty Start Date End Date Jenny [...] dm nail care Reason Comments Med Refill Reason Comments Follow-up RT CALLOUS Reason Comments Follow-up Lesion check Reason Comments Follow-up lesion FOR RECORDS PERTAINING TO PATIENTS WHO ARE [...] BE BASED ON THE PRIMARY CLINICAL RECORDS. [facility] [email or web address] [facility]. provides no warranty or guarantee of the accuracy or completeness of information in this document.
[2024-11-23 10:09] LABS: Hematocrit 40.4 % (36.0-48.0); Hemoglobin 13.6 g/dL (12.0-16.0); Immature Granulocytes Abs Auto 0.03 10^3/uL (0.00-0.03); Immature Granulocytes Pct Auto 0.5 % (0.0-0.5); Lymphocytes Absolute Auto 1.2 10^3/uL (1.2-3.8); Mean Corpuscular HGB Conc 33.7 g/dL (29.9-35.2); Mean Corpuscular Hemoglobin 31.8 pg (26.7-34.0); Mean Corpuscular Volume 94.4 fL (81.0-99.0); Platelet Count 308 10^3/uL (150-450); Red Blood Count 4.28 10^6/uL (4.20-5.40); White Blood Count 6.2 10^3/uL (4.0-11.0)
[2024-11-23 11:01] LABS: Iron 122.0 ug/dL (50.0-170.0)
[2024-11-23 11:18] LABS: Alanine Aminotransferase 78 U/L (14-59); Albumin Globulin Ratio 1.2; Albumin Level 4.1 g/dL (3.4-5.0); Alkaline Phosphatase 44 U/L (46-116); Anion Gap 10.6; Aspartate Amino Transferase 66 U/L (15-37); Blood Urea Nitrogen 18.0 mg/dL (7.0-18.0); Calcium 10.2 mg/dL (8.5-10.1); Carbon Dioxide 29.6 mmol/L (21.0-32.0); Chloride 102 mmol/L (98-107); Cholesterol 174 mg/dL (<=200); Estimated GFR (African America 58 (>=60 mL/min/1.73m^2); Estimated GFR (Non-African Ame 48 (>=60 mL/min/1.73m^2); Free T3 2.25 pg/mL (2.18-3.98); Globulin 3.5 g/dL; Glucose 92 mg/dL (74-106); HDL Cholesterol 61 mg/dL (40-60); Potassium 4.2 mmol/L (3.5-5.1); Sodium 138 mmol/L (136-145); Thyroid Stimulating Hormone 0.391 uIU/mL (0.358-3.740); Total Protein 7.6 g/dL (6.4-8.2); Triglycerides 61 mg/dL (<=150); VLDL CHOLESTEROL 12.2 mg/dL
== END 2024-11-23 08:58 | disposition home or self-care (01) ==
LOC: LAB 08:59
PROVIDERS: PCP Family Medicine; Visit Provider Family Medicine
DX: E03.9 Hypothyroidism, unspecified (principal); I10 Essential (primary) hypertension; G43.109 Migraine with aura, not intractable, without status migrainosus; J45.909 Unspecified asthma, uncomplicated; E78.5 Hyperlipidemia, unspecified; R73.09 Other abnormal glucose; D64.9 Anemia, unspecified; R53.83 Other fatigue
CPT/HCPCS: 36415; 80053; 80061; 83036; 83540; 84436; 84443; 84481; 85025

== ENCOUNTER 2024-11-29 15:55 | Emergency (ER) | payer MEDICARE, OTHER, SELFPAY ==
--- OUTSIDE RECORDS SUMMARY | 2024-11-08 04:30 | XMS_ITS ---
Author Organization [facility] [place] Address [address] [place] [address] Care Team Providers Care Invoice Coder Name Role Phone Cornelio Burris Primary Care Provider Allergies Allergen (clinical drug ingredient) Drug/Non Drug Allergy documented on EMR Reaction Allergy Type Onset Date Status amoxicillin Amoxicillin itching Drug Allergy Act bar morphine Morphine itching and swelling Drug Allergy Active REASON FOR VISIT Medicare Wellnes Medications Medication SIG (Take, Route, Frequency, Duration) Notes Start Date End Date Status Omeprazole 40 MG 1 tablet Orally Once a day for 90 days Active Potassium Chloride ER 10 MEQ 1 tablet Orally three times daily for 90 days Active Ubrelvy 100 MG 1 tablet may take se cond dose at least 2 hours after first dose as needed Orally Once a day PRN Active Pravastatin Sodium 10 MG 1 tablet Orally Once a day for 90 days Active Prolia 60 MG/ML as directed Subcutaneous Active Nebulizer/Tubing/Mouthpiec e - as directed for 365 days 06/20/2024 Act bar levoFLOXacin 500 MG 1 tablet Orally Once a day for 10 day(s) 08/31/2024 Active Levothyroxine Sodium 100 MCG 1 tablet Orally Once a day for 90 days Active Jobst 30-40mmHg Compression Sm - as directed dx:venous insufficiency qd for 30 days 05/01/2023 Active Lactulose 10 GM/15ML 30ml Oral twice rabia ly as needed for 90 days PRN Active Cytomel 5 MCG 1 tablet on an empty stomach Orally Once a day for 90 days 12/04/2022 Active Furosemide 20 MG 1 tablet Orally QOD, PRN for 90 days Active Ipratropium Straughn 0.02 % 2.5 mL as needed Inhalation QID As needed 11/05/2023 Active Fenofibrate 160 MG 1 tablet Orally Once a day for 90 days Active Fluticasone Propionate 50 MCG/ACT 2 spray in each nostril Nasally Once a day for 90 days Active Budesonide 1 MG/2ML 1 mL Inhalation Once a day for 30 days Dx: COPD and Asthma Active cloNIDine HCl 0.1 MG 1 tablet Orally twi ce daily for 90 days Active Azelastine HCl 137 MCG/SPRAY SPRAY 2 SPRAYS INTO EACH NOSTRIL ONCE A DAY for 90 Active Breztri Aerosphere 160-9-4.8 MCG/ACT 2 puffs Inhalation once daily as needed for 30 days Active Aspirin Low Dose 81 MG 1 tablet Orally Once a day Active Social History Tobacco Use: Social History [...] No Points 0 Interpretation Negative Vital Signs Weight 129 lbs 11/08/2024 Height 63 in 11/08/2024 Blood pressure systolic 122 mm Hg 11/09/19 25 Blood pressure diastolic 72 mm Hg 025 BMI 22.85 kg/m2 11/08/2024 Encounters Encounter Location Date Provider Diagnosis [facility] [address] [place] [address] 11/08/2024 Cornelio Burris Encounter for Medica annual wellness exam Z00.00 Assessments Encounter Date Diagnosis (ICD Code) Assessment Notes Treatment Notes Treatment Clinical Notes Section Notes 11/08/2024 Encounter for Medicare annual wellness exam (ICD-10 - Z00.00) Plan Of Treatment Next Appt Details Provider Name:Cornelio Burris, 08:30:00 AM, [address] [place], [address], Progress Notes * Adrianna BUITRAGO DDOB:[birth year] (74 yo F)Acc No.[id number]:11/08/2024 Progress Note Patient: Adrianna BRAGG Provider: Nany Burris ([facility])MD :1950 A ge:74 Y S ex:Female Date:11/08/2024 Address:[facility] [address] [place], [id number] Check In:08:10 AM ESTCheck O ut:08:59 AM EST Subjective: * Chief Complaints: * Sobia Copeland * HPI: Sobia lyman Annual Wellness Visit: Type of Visit: S ailin Annual Wellness Visit (SAWV).? Visual Acuity: N /A. Other Providers of Care: C are Team reviewed with patient: Levon dugan, and updates made in [place] of Care Physical Activity: D o you exercise regularly? Y es T ype of exercise: _ __ F requency: _ __ Nutrition/Diet: O n a typical day, how many servings of fruits and vegetables do you consume? 3 I n a typical week, how many servings of fried or high fat (such as cheese, fatty meat) do you consume? 7 I n a typical week, how many servings of high fiber or whole grain foods do you consume? 7 Seat Belt: D o you always use your seat belt in your car??Yes A re you having difficulties driving your car??No C an you get to places out of walking distance without help? Y es Dental: H ow would you describe the condition of your mouth and teeth, including any false teeth or dentures? G ood Medication List Follow-Up: D uring the past four weeks, how much bodily pain do you have? N o pain D o you have a current opioid prescription??No Self Assessment of Health: H ow would you rate your overall health the past four weeks? G ood H ow confident are you that you can control and manage most of your health problems? S omewhat confident H ow have things been going for you during the past four weeks? V gee well; could hardly be better D uring the past four weeks, was someone available to help you if you needed and wanted help? Y es, as much as I wanted (Example: if you felt nervous, lonely, or blue; got sick and had to stay in bed; needed someone to talk to; help with daily chores; or needed help just taking care of yourself) D o you have any sexual problems? N o D o you have any troubles eating well? N o D o you have any problems with tiredness or fatigue? N o H ave you noticed any hearing difficulties??No Sun Exposure: D o you protect yourself from over exposure to the sun when outdoors? Y es Mental Wellness: D uring the past four weeks, how much have you been bothered by emotional problems such as feeling anxious, depressed, irritable, sad, or downhearted and blue? N ot at all D uring the past four weeks, has your physical and emotional health limited your social activities with family, friends, neighbors, or groups??Not at all Functional Ability and Safety Screening: D o you need assistance with any of the following? Select all that apply. N one D oes your home have rugs in the hallway, lack grab bars in the bathroom, lack handrails on the stairs or have poor lighting? N o D o you feel unsteady and/or dizzy when standing or walking? N o D o you have smoke detectors in your home and routinely change the batteries? Y es D o you have a fire extinguisher and know how to use it properly? Y es D o you have any problems with your living situation, food, transportation, utilities, or safety? N o Cognitive Screening: H ave you experienced any memory issues or problems with thinking? N o H ave your family members, friends, caretakers, or others raised any concerns? N o D o you get confused or easily distracted more than you used to? N o H as your ability to concentrate seem to have declined recently? N o O verall Cognitive Status I ntact End of Life Planning: D o you have a living will? Y es D o you have a Durable Power of Cardiology Clinical Nurse Specialist? Y es W ould you like to discuss this topic today??No SDOH A gree to complete Social Determinants of Health questionnaire Y es W ithin the past 12 months, did you worry that your food would run out before you got money to buy more? N o W ithin the past 12 months, did the food you bought just not last and you didn't have money to buy more? N o W ithin the past 12 months, have you ever stayed: outside, in a car, in a a tent, in an overnight correction, or temporarily in someone else's home??No A re you worried about losing your housing??No W ithin the past 12 months, have you been able to get utilities (heat, electricity) when it was really needed? N o W ithin the past 12 months, has a lack of transportation kept you from medical appointments or from doing things needed for daily living? N o D o you feel physically or emotionally unsafe where you currently live? N o W ould you like help with any of these needs that you have identified? N o DO NOT USE - Vision Screening Y es, patient sees regular registered nurse nursery or lav crewman. DO NOT USE - Vision Screening Questionnaire H ave you had an appointment with your Eye Doctor in the past year? Y es DO NOT USE - Hearing Screening N ot done, but has not noticed hearing difficulty. DO NOT USE - ETOH Use: N ever. DO NOT USE - Psychosocial Risks H ave you been experiencing more stress or anxiety than usual? N o A re you experiencing any stress or anxiety about your disease management? N o DO NOT USE - Personal Care Activities H ow difficult is it for you to bathe or clean yourself? N ot difficult H ow difficult is it for you to dress yourself? N ot difficult DO NOT USE - Household Activities H ow difficult is it for you to do routine housework? N ot difficult H ow much does your family help with daily or routine chores? Q uite a bit DO NOT USE - Daily Activities H ow difficult is it for you to do your own shopping? N ot difficult H ow difficult is it for you to prepare your own food? N ot difficult DO NOT USE - Financial Activities D escribe your ability to plan your daily/monthly budgets and pay your bills: G ood DO NOT USE - Pain Assessment D o you experience pain? N o DO NOT USE - Get Up and Go Evaluation U nder 20 seconds.? DO NOT USE - Discussed Advance Directives P atient has Living Will. DO NOT USE - Activities of Daily Living/Home Safety H ow difficult is it for you to get around your house? N ot difficult H ow difficult is it for you to use the toilet by yourself? N ot difficult H ow difficult is it for you to bathe or clean yourself? N ot difficult H ow difficult is it for you to dress yourself? N ot difficult H ow difficult is it for you to do routine housework? N ot difficult H ow much does your family help with daily or routine chores? N ot at all H ow difficult is for you to do your own shopping? N ot difficult H ow difficult is it for you to prepare your own food? N ot difficult D escribe your ability to plan your daily/monthly budgets and pay your bills: G ood A re you currently licensed to drive a vehicle? Y es D o you feel that you are safe in your current home? Y es * Active Problem List I34.0 Mitral regurgitation [...] Hospitalization * Family History: F ather: , [place], diagnosed with Unspecified heart disease. M other: , lung disease, high cholesterol, [place], diagnosed with Unspecified essential hypertension, Unspecified heart [...] a day Azelastine HCl 137 MCG/SPRAY Solution SPRAY 2 SPRAYS INTO EACH NOSTRIL ONCE A DAY Breztri Aerosphere(Tskslcc-Pxcajybpydb-Txqegkjhxy) 160-9-4.8 MCG/ACT Aerosol 2 puffs Inhalation once [...] Tablet 1 tablet Orally QOD, PRN Ipratropium Straughn 0.02 % Solution 2.5 mL as needed Inhalation QID As neededJobst 30-40mmHg Compression Sm(Elastic Bandages & Supports) - Miscellaneous as directed dx:venous insufficiency qd Lactulose 10 GM/15ML Solution 30ml Oral twice daily as needed , Notes to Pharmacist: PRNlevoFLOXacin 500 MG Tablet 1 tablet Orally Once a day Levothyroxine Sodium 100 MCG Tablet 1 tablet Orally Once a day Nebulizer/Tubing/Mouthpiece - Kit as directed Omeprazole 40 MG Capsule Delayed Release 1 [...] day Taking Azelastine HCl 137 MCG/SPRAY Solution SPRAY 2 SPRAYS INTO EACH NOSTRIL ONCE A DAY Taking Breztri Aerosphere(Fqmxahj-Npyxnbroqmn-Jrbtvlsnrx) 160-9-4.8 MCG/ACT Aerosol 2 puffs Inhalation once [...] 1 tablet Orally QOD, PRN Taking Ipratropium Straughn 0.02 % Solution 2.5 mL as needed Inhalation QID As neededTaking Jobst 30-40mmHg Compression Sm(Elastic Bandages & Supports) - Miscellaneous as directed dx:venous insufficiency qd Taking Lactulose 10 GM/15ML Solution 30ml Oral twice daily as needed , Notes to Pharmacist: PRNTaking levoFLOXacin 500 MG Tablet 1 tablet Orally Once a day Taking Levothyroxine Sodium 100 MCG Tablet 1 tablet Orally Once a day Taking Nebulizer/Tubing/Mouthpiece - Kit as directed Taking Omeprazole 40 MG Capsule Delayed Release [...] swellingAmoxicillin: itchingno[Allergies Verified] Objective: * Vitals: W t:129lbs, Ht: 63 in, BP:122/72mm Hg, BMI:22.85Index, Ht-cm: 160.02 cm, Wt-k.51 kg. Assessment: * Assessment: 1. E ncounter for Medicare annual wellness exam - Z00.00 (Primary) Plan: * Treatment: * Procedure Codes: G 0439 ANNUAL WELLNESS, SUBSEQ * Preventive Medicine: Screenings/Counseling: F ALL RISK SCREENING Fall Risk Assessment: N o falls in the past year Are you afraid of falling? N o * * Sign off status: Completed Visit Status: C HK (Check Out) true * Provider: Nany Burris ([facility])MD Date: 11/08/2024 Generated for Petri ng/Faxing/eTransmitting on: 11/29/2024 04:01 PM EDT History and Physical Notes * HPI (History of Present Illness) Category Sub-Category Detail Notes Category Not es Medicare Annual Wellness Visit Type of Visit: Subsequent Annual Wellness Visit (SAWV) DO NOT USE - Pain Assessment Do you experience p ain?: No DO NOT USE - Vision Screening Yes, patie nt sees regular registered nurse nursery or lav crewman DO NOT USE - Hearing Screening Not done, but has not noticed hearing difficulty DO NOT USE - Psychosocial Risks Have you been experiencing more stress or anxiety than usual?: No Are you experiencing any stress or anxie ty about your disease management?: No Cognitive Screening: Have you experience d any memory issues or problems with thinking?: No Have your family members, fr iends, caretakers, or others raised any concerns?: No Do you get confused or easily distracted more than you used to?: No Has your ability to concentrate seem to have declined recently?: No Overall Cognitive Status: Intact Self Assessment of Health: How would you rate your overall health the past four weeks?: Good How confident are you that y ou can control and manage most of your health problems?: Somewhat confident How have things been going f or you during the past four weeks?: Very well; could hardly be better During the past four weeks, was someone available to help you if you needed and wanted help?: Yes, as much as I wanted (Example: if you felt nervous, lonely, o r blue; got sick and had to stay in bed; needed someone to talk to; help with daily chores; or needed help just taking care of yourself) Do you have any sexual problems?: No Do you have any troubles eating well?: N o Do you have any problems wit h tiredness or fatigue?: No Have you noticed any hearing difficulties?: No DO NOT USE - Activities of D aily Living/Home Safety How difficult is it for you to get around your house?: Not difficult How difficult is it for you to use the t oilet by yourself?: Not difficult How difficult is it for you to bathe or clean yourself?: Not difficult How difficult is it for you to dress you rself?: Not difficult How difficult is it for you to do routin e housework?: Not difficult How much does your family help with caio y or routine chores?: Not at all How difficult is for you to do your own shopping?: Not difficult How difficult is it for you to prepare y our own food?: Not difficult Describe your ability to luisa n your daily/monthly budgets and pay your bills:: Good Are you currently licensed to drive a ve hicle?: Yes Do you feel that you are safe in your cu rrent home?: Yes DO NOT USE - Get Up and Go Evaluation Un andree 20 seconds DO NOT USE - Discussed Advance Directive s Patient has Living Will Physical Activity: Do you exercise regularly?: Y es Type of exercise:: ___ Frequency:: ___ DO NOT USE - Personal Care Activities Ho w difficult is it for you to bathe or clean yourself?: Not difficult How difficult is it for you to dress you rself?: Not difficult DO NOT USE - Household Activities How di fficult is it for you to do routine housework?: Not difficult How much does your family help with caio y or routine chores?: Quite a bit DO NOT USE - Daily Activities How diffic ult is it for you to do your own shopping?: Not difficult How difficult is it for you to prepare y our own food?: Not difficult DO NOT USE - Financial Activities Descri be your ability to plan your daily/monthly budgets and pay your bills:: Good Functional Ability and Safety Screening: Do you need assistance with any of the following? Select all that apply.: None Does your home have rugs in the hallway, lack grab bars in the bathroom, lack handrails on the stairs or have poor lighting?: No Do you feel unsteady and/or dizzy when s tanding or walking?: No Do you have smoke detectors in your home and routinely change the batteries?: Yes Do you have a fire extinguisher and know how to use it properly?: Yes Do you have any problems wit h your living situation, food, transportation, utilities, or safety?: No DO NOT USE - Vision Screening Questionna castillo Have you had an appointment with your Eye Doctor in the past year? : Yes Visual Acuity: N/A DO NOT USE - ETOH Use: Never Nutrition/Diet: On a typical day, ho w many servings of fruits and vegetables do you consume?: 3 In a typical week, how many servings of fried or high fat (such as cheese, fatty meat) do you consume?: 7 In a typical week, how many servings of high fiber or whole grain foods do you consume?: 7 Seat Belt: Do you always use your seat belt in your car?: Yes Are you having difficulties driving your car?: No Can you get to places out of walking dis tance without help?: Yes Dental: How would you descri be the condition of your mouth and teeth, including any false teeth or dentures?: Good Medication List Follow-Up: During the st four weeks, how much bodily pain do you have?: No pain Do you have a current opioid prescriptio n?: No Mental Wellness: During the past four weeks, how much have you been bothered by emotional problems such as feeling anxious, depressed, irritable, sad, or downhearted and blue?: Not at all During the past four weeks, has your physical and emotional health limited your social activities with family, friends, neighbors, or groups?: Not at all Sun Exposure: Do you protect yours elf from over exposure to the sun when outdoors?: Yes End of Life Planning: Do you have a living will? : Yes Do you have a Durable Power of Cardiology Clinical Nurse Specialist? : Yes Would you like to discuss this topic tod ay?: No Other Providers of Care: Care Team lakshmi cruz with patient:: Yes, and updates made in [place] of Care SDOH Agree to complete [facility] Determinants of Health questionnaire: Yes Within the past 12 months, did you worry that your food would run out before you got money to buy more?: No Within the past 12 months, did the food you bought just not last and you didn't have money to buy more?: No Within the past 12 months, have you ever stayed: outside, in a car, in a a tent, in an overnight correction, or temporarily in someone else's home?: No Are you worried about losing your housing?: No Within the past 12 months, have you been able to get utilities (heat, electricity) when it was really needed?: No Within the past 12 months, has a lack of transportation kept you from medical appointments or from doing things needed for daily living?: No Do you feel physically or emotionally unsafe where you currently live?: No Would you like help with any of these needs that you have identified?: No
--- OUTSIDE RECORDS SUMMARY | 2024-11-17 13:30 | XMS_ITS | Encounter Summary ---
Author Organization [facility] Address [address] [place] [address] Care Team Providers Care Brush Head Maker Name Role Phone Miko Burris MD Primary Care Provider [phone] Reason for Visit * Reason Comments Follow-up lesion Encounter Details Date Type Department Care Team (Late st Contact Info) Description 11/17/2024 1:30 PM EDT [facility] Visit [facility] [address] [facility] [address] [place] [address] Renny Orlando, DPM [address] [facility] 5 [place] [address] Tinea corporis (Primary Dx); Verruca plantaris; Foot pain, right; Foot pain, left Social History Tobacco Use Types Packs/Day Years [...] on file documented as of this encounter Last Filed Vital Signs Vital Sign Reading Time Taken Comments Blood Pressure - - Pulse - - Temperature - - Respiratory Rate 16 11/17/2024 1:13 PM EDT Oxygen Saturation - - Inhaled Oxygen Concentration - - Weight 58.5 kg (129 lb) 11/17/2024 1:13 PM EDT Height 160 cm (5' 3 ) 11/17/2024 1:13 PM EDT Body Mass Index 22.85 11/17/2024 1:13 PM EDT documented in this encounter Progress Notes * Rennycoy Orlando, DPM - 11/17/2024 1:30 PM EDT Patient: Adrianna Buitrago : 1950 PCP: Miko Burris MD SUBJECTIVE Patient presents today for follow up of skin lesion/neoplasm of unknown origin to the right and left foot Pt states that previous treatment of acid tx with some improvement Pt rates pain the pain on a 1-10 scale an intensity of 4 Pt presents today for followup. Pt also presents today for follow up of tinea to her right leg. Pt states they have been using medicated antifungal cream with positive improvement Allergies: Allergies Allergen Reactions Amoxicillin Itching, Other and Unknown Molds & Smuts Unknown Morphine Itching and Other Past Medical History: Past Medical History: Diagnosis Date Chronic bronchitis (HCC) Heart murmur History of herniated intervertebral disc History of varicose veins Hyperlipidemia Hypertension Hyperthyroidism Kidney disease Osteoarthritis Osteoporosis Varicose vein of leg Medications: Current Outpatient Medications: aspirin 81 MG EC tablet, 1 (one) time each day at the same time., Disp: , Rfl: azelastine (Astelin) 0.1 % nasal spray, Azelastine HCl Two sprays per nostril on a b.I.d. basis., Disp: 30 mL, Rfl: 11 Fbhffjt-Zohsczsdnuh-Uvffnrhahv (Breztri Aerosphere) 160-9-4.8 MCG/ACT aerosol, Inhale 1 puff Daily,Disp: , Rfl: budesonide (Pulmicort) 1 MG/2ML nebulizer solution, INHALE THE CONTENTS OF 1 VIAL VIA NEBULIZER IN THE MORNING AND AT BEDTIME, RINSE MOUTH WITH WATER AFTER TO USE TO REDUCE AFTERTASTE AND INCIDENCE OF CANDIDIASIS. DO NOT SWALLOW, Disp: 180 mL, Rfl: 3 cloNIDine (Catapres) 0.1 MG tablet, Take 0.1 mg by mouth in the morning and 0.1 mg before bedtime.,Disp: , Rfl: cloNIDine (Catapres-TTS) 0.1 MG/24HR, cloNIDine, Disp: , Rfl: clotrimazole-betamethasone (Lotrisone) cream, Apply 1 application topically in the morning and 1 application before bedtime., Disp: 45 g, Rfl: 1 denosumab (Prolia) 60 MG/ML solution prefilled syringe, [...] times a day by oral route for 90days., Disp: , Rfl: pravastatin (Pravachol) 10 MG [...] Partner Violence: Unknown (05/28/2023) Received from [facility] Safety & Environment Fear of Current or [...] to heels with negative drainage or erythema Right chavez region has a 0.5 cm x 1 cm well-defined round like lesion with rash like appearance and negative drainage Elongated thick yellow crumbly nails digits 1 [...] Verruca plantaris 2. Foot pain, right 3. Tinea corporis 4. Foot pain, left PLAN Continue with topical antifungal daily. Application of salinocaine acid medication to lesion/lesions located at right foot Informed pt of risks and benefits of procedure including high reoccurence rate, infection, pain andconsent given. Application of DSD post procedure. Continue creams twice daily to feet. Renny Orlando DPM documented in this encounter Plan of Treatment Upcoming Encounters Date Type Department Care Team (Late st Contact Info) Description 12/08/2024 11:00 AM EDT Office Visit [facility] [address] [facility] [address] [place] [address] Renny Orlando DPM [address] [facility] 5 [place] [address] 01/11/2025 9:20 AM EDT Office Visit [facility] [address] [facility] [address] [place] [address] Charles Faith MD [address] [facility] [address] [place] [address] documented as of this encounter Visit Diagnoses Diagnosis Tinea corporis- Primary Dermatophytosis of the body Verruca plantaris Plantar wart Foot pain, right Pain in soft tissues of limb Foot pain, left Pain in soft tissues of limb documented in this encounter Care Teams Brush Head Maker Relationship Specialty Start Date End Date Miko Burris MD [address] [facility] [place] [address] [phone] PCP - General Family Medicine 04/30/23 documented as of this encounter
--- OUTSIDE RECORDS SUMMARY | 2024-11-23 04:30 | XMS_ITS ---
Author Organization [facility] in [place] Address [address] [place] [address] Care Team Providers Care Bus Operator Name Role Phone Cornelio Burris Primary Care Provider [phone] Allergies Allergen (clinical drug ingredient) Drug/Non Drug [...] QOD, PRN for 90 days Active Ipratropium [place] 0.02 % 2.5 mL as needed Inhalation [...] did you stop smoking? 04/06/2006 Vital Signs Weight 126.2 lbs 11/23/2024 Height 63 in 11/23/2024 Blood pressure systolic 132 mm Hg 11/24/19 25 Blood pressure diastolic 84 mm Hg 025 BMI 22.35 kg/m2 11/23/2024 Encounters Encounter Location Date Provider Diagnosis [address] [address] 11/23/2024 Cornelio Hoy Hypertension I10 ; Hypothyroidism [...] Provider Name:Cornelio Burris, 08:30:00 AM, [address] [place], [address], Progress Notes * Adrianna BUITRAGO DDOB:[birth year] (74 yo F)Acc No.[id number]:11/23/2024 Progress Note Patient: Adrianna BRAGG Provider: Nany Burris ([facility])MD :1950 A ge:74 Y S ex:Female Date:11/23/2024 Address:[facility] [address] [facility] Check In:08:13 AM ESTCheck O ut:08:39 [...] Hospitalization * Family History: F ather: , [place], diagnosed with Unspecified heart disease. M other: , lung disease, high cholesterol, [place], diagnosed with Unspecified essential hypertension, Unspecified heart [...] INTO EACH NOSTRIL ONCE A DAY Breztri Aerosphere(Iqzxdko-Omtslbmptfu-Ozvxowtgsl) 160-9-4.8 MCG/ACT Aerosol 2 puffs Inhalation once [...] Tablet 1 tablet Orally QOD, PRN Ipratropium [place] 0.02 % Solution 2.5 mL as needed [...] EACH NOSTRIL ONCE A DAY Taking Breztri Aerosphere(Pqvawcj-Fqipfgyeujx-Vfctbezveo) 160-9-4.8 MCG/ACT Aerosol 2 puffs Inhalation once [...] 1 tablet Orally QOD, PRN Taking Ipratropium [place] 0.02 % Solution 2.5 mL as needed [...] Codes: 3 079F DIAST BP 80-89 MM [id number] SYST BP GE 130 - 139MM HG * * Sign off status: Completed Visit Status: C HK (Check Out) true * Provider: Nany Burris ([facility])MD Date: 0 11/23/2024 Generated for Printi ng/Faxing/eTransmitting on: 0 11/29/2024 04:01 PM EDT History and Physical [...]
--- OUTSIDE RECORDS SUMMARY | 2024-11-23 08:55 | XMS_ITS ---
Demographics Address [facility] [address] [place] [address] Mobile Email Address Preferred Language en Marital Status Episcopal Affiliation Unknown Race White Ethnic Group Not or Lati no Author Organization [facility] in [place] Address [address] [place] [address] Care Team Providers Care User Interface Artist Name Role Phone Cornelio Burris Primary Care Provider REASON FOR VISIT review labs Encounters Encounter Location Date Provider Diagnosis [facility] [address] [place] [address] 11/23/2024 Cornelio Burris Elevated liver function tests R94.5 Assessments Encounter Date Diagnosis (ICD Code) Assessment Notes Treatment Notes Treatment Clinical Notes Section Notes 11/23/2024 Elevated liver function tests (ICD-10 - R94.5) Plan Of Treatment Pending Test Test Name Order Date CMP - Comprehensive Metabolic Panel 11/05 Next Appt Details Provider Name:Cornelio Burris, 08:30:00 AM, [address] [place], [address], Progress Notes * Adrianna BUITRAGO DDOB:[birth year] (74 yo F)Acc No.[id number]:11/23/2024 Patient: Oliverio Adrianna SILVERIO :1950 A ge:74 Y S ex:Female Address:[address] [place] [address] Subjective: * Chief Complaints: * R eview labs * Medical History: * Surgical History: * Hospitalization/Major Diagno stic Procedure: * Medications: Objective: * Vitals: * Physical Examination: Assessment: * Assessment: 1. E levated liver function tests - R94.5 (Primary) Plan: * Treatment: * Procedure Codes: * true * Date: Generated for Annie moss/Dustin/Nicolas on: 11/29/2024 04:02 PM EDT
[2024-11-29 16:00] VITALS: BP 169/90; PULSE 83; TEMP 36.7; O2SAT 100; BMI 23.0
--- OUTSIDE RECORDS SUMMARY | 2024-11-29 16:01 | XMS_ITS | Encounter Summary ---
Author Organization [facility] Address [address] [place] [address] Care Team Providers Care Crotch Piece Baster Name Role Phone Miko Burris MD Primary Care Provider [phone] Encounter Details Date Type Department Care Team [...] EDT Office Visit [facility] [address] [facility] [address] [place] [phone] Renny Orlando, DPSobia [address] [facility] [address] [place] [address] 01/11/2025 9:20 AM EDT Office Visit [facility] [address] [place] [phone] Charles Faith MD [address] [place] [address] documented as of this encounter Visit Diagnoses Not on filedocumented in this encounter Care Teams Crotch Piece Baster Relationship Specialty Start Date End Date Miko Burris MD [address] [place] [address] PCP - General Family Medicine 04/30/23 documented as of this encounter
--- OUTSIDE RECORDS SUMMARY | 2024-11-29 16:01 | XMS_ITS | Patient Health Record ---
Author Organization The [facility] [place] Address [address] [place] [address] Care Team Providers Care Galley Cook Name Role Phone Cornelio Burris Primary Care Provider [phone] Lucía Nath [phone] Allergies Allergen (clinical drug ingredient) Drug/Non Drug Allergy documented on EMR Reaction Allergy Type Onset Date Status amoxicillin Amoxicillin itching Drug Allergy Act bar morphine Morphine itching and swelling Drug Allergy Active Results Component Value Reference Range Notes COVID-19, Flu A+B IH Reviewed date:01/11/2024 09:54:46 AM Interpretation: Performing Lab: Notes/Report: COVID Neg FLU A neg FLU B neg Control present PROF CHEM 8 (BAS METB) Reviewed date:04/12/2024 12:35:00 PM Interpretation: Performing Lab: Notes/Report: [facility] , Sodium 142 136-145 mmol/L Potassium [...] Performing Lab: see note ML - The [facility] LB MR cervical spine wo con Reviewed date:04/18/2024 01:16:08 PM Interpretation: Performing Lab: Notes/Report: Source Facility: [place] [address] [address] Magnetic Resonance Report Signed Patient: ADRIANNA BUITRAGO MR#: [id number] : 1950 Acct:[id number] Age/Sex: 73 / F ADM Date: 04/18/24 Loc: MRI Attending Dr: Jenny Burris M.D. Ordering Physician: Jenny Burris M.D. Date of Service: 04/18/24 Procedure(s): MR cervical spine wo con Accession Number(s): [id number] cc: Jenny Burris M.D. The [place] [address] Patient Name: ADRIANNA BUITRAGO MRN: [id number] date: 1950 Sex: F Assigned Patient Location: MRI Current Patient Location: MRI Accession/Order Number: [id number] Exam Date: 04/18/2024 07:50 Report Date: 04/18/2024 [...] M.D. Signed By: 04/18/2448 DD/ 5 TD/TT: [employer]: [place] [address] Magnetic Resonance Report Signed Patient: LALI BUITRAGO MR#: [id number] : 1950 Acct:[id number] Age/Sex: 73 / F ADM Date: 04/18/24 Loc: MRI Attending Dr: Dontae Burris M.D. Ordering Physician: Jenny Burris M.D. Date of Service: 04/18/24 Procedure(s): MR cer vical spine wo con Accession Number(s): [id number] cc: Jenny Burris M.D. [place] [id number] Patient Name: ADRIANNA BUITRAGO MRN: [id number] date: 1950 Sex: F Assigned Patient Location: MRI Current Patient Loca tion: MRI Accession/Order Numb er: [id number] Exam Date: 04/18/2024 07:50 Report Date: 04/18/2024 [...] Junaid Esteves M.D. Signed By: 04/18/2448 DD/ 0846 TD/TT: [employer]: MR grimm LT wo con Reviewed date:05/09/2024 07:49:36 PM Interpretation: Performing Lab: Notes/Report: Source Facility: [facility] [place] [address] [address] Magnetic Resonance Report Signed Patient: ADRIANNA BUITRAGO MR#: [id number] : 1950 Acct:[id number] Age/Sex: 73 / F ADM Date: 05/06/24 Loc: MRI Attending Dr: Sophia PARKINSON Ordering Physician: Sophia Malik Date of Service: 05/06/24 Procedure(s): MR shoulder LT wo con Accession Number(s): [id number] cc: Jenny Burris M.D.; Sophia Malik [address] [address] Patient Name: ADRIANNA BUITRAGO MRN: [facility]:[id number] date: 1950 Sex: F Assigned Patient Location: MRI Current Patient Location: Accession/Order Number: [id number] Exam Date: 05/06/2024 07:48 Report Date: 05/09/2024 [...] Signed By: 05/09/24 1049 DD/ 1046 TD/TT: [employer]: [place] [address] Magnetic Resonance Report Signed Patient: LALI BUITRAGO MR#: [id number] : 1950 Acct:[id number] Age/Sex: 73 / F ADM Date: 05/06/24 Loc: MRI Attending Dr: Paola Nichole Ordering Physician: Sophia Malik Date of Service: 05/06/24 Procedure(s): MR larry menendez LT wo con Accession Number(s): [id number] cc: Jenny Burris M.D. ; Sophia Malik [place] [address] Patient Name: ADRIANNA BUITRAGO MRN: [id number] date: 1950 Sex: F Assigned Patient Location: MRI Current Patient Location: Accession/Order Numb er: [id number] Exam Date: 05/06/2024 07:48 Report Date: 05/09/2024 [...] o visible tear or attrition. 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 CAPSULE No visible capsular [...] Signed By: 05/09/24 1049 DD/ 1046 TD/TT: [employer]: AMYLASE Reviewed date:08/31/2024 01:01:38 PM Interpretation: Performing Lab: Notes/Report: The [facility] , Amylase 84 25-115 U/L Performing Lab: see note ML - [facility] LB CBC AUTO DIFF Reviewed date:08/31/2024 01:01:38 PM Interpretation: Performing Lab: Notes/Report: [facility] , White Blood Count 12.3 4.0-11.0 10 [...] fL Performing Lab: see note ML - [facility] LB LIPASE Reviewed date:08/31/2024 01:01:38 PM Interpretation: Performing Lab: Notes/Report: [facility] , Lipase 49.0 16.0-77.0 U/L Performing Lab: see note ML - [facility] LB LIVER PROFILE Reviewed date:08/31/2024 01:01:38 PM Interpretation: Performing Lab: Notes/Report: [facility] , Bilirubin Total 0.7 0.2-1.0 mg/dL Bilirubin Direct 0.2 0.0-0.2 mg/dL Aspartate Amino Transferase 35 15-37 U/L Alanine Aminotransferase 39 14-59 U/L Alkaline Phosphatase 46 46-116 U/L Total Protein 7.0 6.4-8.2 g/dL Albumin Level 3.8 3.4-5.0 g/dL Globulin 3.2 Albumin Globulin Ratio 1.2 Performing Lab: see note ML - [facility] LB PROF CHEM 8 (BAS METB) Reviewed date:08/31/2024 01:01:38 PM Interpretation: Performing Lab: Notes/Report: [facility] , Sodium 144 136-145 mmol/L Potassium 4.0 [...] mg/dL Performing Lab: see note ML - [facility] LB Manual Differential Reviewed date:08/31/2024 01:01:38 PM Interpretation: Performing Lab: Notes/Report: [facility] , Segmented Neutrophils % Manual 90.0 43.0-75.0 [...] 0 3/uL Performing Lab: see note - [facility] LB Occult Blood* Reviewed date:08/31/2024 01:01:38 PM Interpretation: Performing Lab: Notes/Report: [facility] , Occult Blood Negative Performing Lab: see note - [facility] LB CBC AUTO DIFF Reviewed date:11/23/2024 12:56:26 PM Interpretation: Performing Lab: Notes/Report: [facility] , White Blood Count 6.2 4.0-11.0 10 3/uL Red Blood Count 4.28 4.20-5.40 10 6/uL Hemoglobin 13.6 12.0-16.0 g/dL Hematocrit 40.4 36.0-48.0 % Mean Corpuscular Volume 94.4 81.0-99.0 fL Mean Corpuscular Hemoglobin 31.8 26.7-34.0 pg Mean Corpuscular HGB Conc 33.7 29.9-35.2 g/dL Red Cell Distribution Width 13.5 11.0-15.0 % Platelet Count 308 150-450 10 3/uL Mean Platelet Volume 10.8 9.5-13.5 fL Neutrophils Percent Auto 63.8 43.0-75.0 % Lymphocytes Percent Auto 19.5 20.5-60.0 % Monocytes Percent Auto 11.2 1.7-12.0 % Eosinophils Percent Auto 4.5 0.9-7.0 % Basophils Percent Auto 0.5 0.2-2.0 % Immature Granulocytes Pct Auto 0.5 0.0-0.5 % Neutrophils Absolute Auto 3.9 1.4-6.5 10 3/uL Lymphocytes Absolute Auto 1.2 1.2-3.8 10 3/uL Monocytes Absolute Auto 0.7 0.3-0.8 10 3/uL Eosinophils Absolute Auto 0.3 0.0-0.7 10 3/uL Basophils Absolute Auto 0.0 0.0-0.1 10 3/uL Immature Granulocytes Abs Auto 0.03 0.00-0.03 10 3/uL Performing Lab: see note ML - [facility] FREE T3 Reviewed date:11/23/2024 12:56:26 PM Interpretation: Performing Lab: Notes/Report: [facility] , Free T3 2.25 2.18-3.98 pg/mL Performing Lab: see note ML - [facility] GLYCOHEMOGLOBIN A1C Reviewed date:11/23/2024 12:56:26 PM Interpretation: Performing Lab: Notes/Report: [facility] , Glycohemoglobin A1C 4.9 4.5-6.2 % ADA RECOMMENDED LIMIT 4.0 - 6.0 ADA THERAPEUTIC TARGET < 7.0 ACTION SUGGESTED > 7.0 Estimated Average Glucose 94 Performing Lab: see note ML - [facility] LB IRON Reviewed date:11/23/2024 12:56:26 PM Interpretation: Performing Lab: Notes/Report: [facility] , Iron 122.0 50.0-170.0 ug/dL Performing Lab: see note ML - [facility] LB LIPID PROFILE Reviewed date:11/23/2024 12:56:26 PM Interpretation: Performing Lab: Notes/Report: [facility] , Triglycerides 61 <=150 mg/dL Cholesterol 174 <=200 mg/dL HDL Cholesterol 61 40-60 mg/dL > or =60 mg/dl - LOW CARDIOVASCULAR RISK <40 mg/dl - HIGH CARDIOVASCULAR RISK LDL Cholesterol Calculated 101.0 <100 mg/dl OPTIMAL 100-129 mg/dl NEAR OR ABOVE OPTIMAL 130-159 mg/dl BORDERLINE HIGH 160-189 mg/dl HIGH >190 mg/dl VERY HIGH VLDL CHOLESTEROL 12.2 Chol HDL Ratio 2.9 3.3 - 4.4 LOW RISK 4.4 - 7.1 AVERAGE RISK 7.1 - 11.0 MODERATE RISK >11.0 HIGH RISK Performing Lab: see note ML - [facility] LB PROF 14(COMP METB) Reviewed date:11/23/2024 12:56:26 PM Interpretation: Performing Lab: Notes/Report: [facility] , Sodium 138 136-145 mmol/L Potassium 4.2 3.5-5.1 mmol/L Chloride 102 98-107 mmol/L Carbon Dioxide 29.6 21.0-32.0 mmol/L Anion Gap 10.6 Glucose 92 74-106 mg/dL Blood Urea Nitrogen 18.0 7.0-18.0 mg/dL Creatinine 1.11 0.55-1.02 mg/dL Estimated GFR ( Coleen 58 >=60 mL/min/1.73m 2 Estimated GFR (Non- Ngoc 48 >=60 mL/min/1.73m 2 BUN Creatinine Ratio 16.2 Calcium 10.2 8.5-10.1 mg/dL Bilirubin Total 0.6 0.2-1.0 mg/dL Aspartate Amino Transferase 66 15-37 U/L Alanine Aminotransferase 78 14-59 U/L Alkaline Phosphatase 44 46-116 U/L Total Protein 7.6 6.4-8.2 g/dL Albumin Level 4.1 3.4-5.0 g/dL Globulin 3.5 Albumin Globulin Ratio 1.2 Performing Lab: see note ML - [facility] LB T4 Reviewed date:11/23/2024 12:56:26 PM Interpretation: Performing Lab: Notes/Report: [facility] , T4 Thyroxine 11.30 4.80-13.90 ug/dL Performing Lab: see note ML - [facility] LB TSH Reviewed date:11/23/2024 12:56:26 PM Interpretation: Performing Lab: Notes/Report: [facility] , Thyroid Stimulating Hormone 0.391 0.358-3.740 uIU/mL Performing Lab: see note ML - [facility] LB ECG 12 lead Reviewed date:08/29/2024 03:23:47 PM Interpretation: Performing Lab: Notes/Report: Source Facility: [facility]-[address] [place] [address] [place] [address] Electrocardiograph Report Signed Patient: ADRIANNA BUITRAGO MR#: [id number] : 1950 Acct:[id number] Age/Sex: 73 / F ADM Date: 08/28/24 Loc: ER Attending Dr: Ordering Physician: Kenya Clinton Date of Service: 08/28/24 Procedure(s): ECG 12 lead Accession Number(s): [id number] cc: [facility] Test Date: 2024-08-28 Pat Name: ADRIANNA BUITRAGO Department: Room: - 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 Measurements Intervals [place] Rate: 64 P: 65 OR: 118 QRS: 79 QRSD: 84 T: 72 QT: 376 QTc: 386 Interpretive Statements 1100 Sinus rhythm 2210 Short OR interval 9150 abnormal ECG Compared to ECG 06/23/2023 15:46:53 Short OR interval now present Electronically Signed On 08-29-2024 7:53:00 EDT by HOMER STEVENS M.D. 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 Measurements Intervals [place] Rate: 64 P: 65 OR: 118 QRS: 79 QRSD: 84 T: 72 QT: 376 QTc: 386 Interpretive Statements 1100 Sinus rhythm 2210 Short OR interval 9150 abnormal ECG Compared to ECG 06/23/2023 15:46:53 Short OR interval no w present Electronically Patricia d On 08-29-2024 7:53:00 EDT by HOMER STEVENS M.D. Dictated By: HOMER STEVENS Signed By: 08/29/24 0753 DD/ 1521 TD/TT: [employer]: SARS-CoV-2 Ag* Reviewed date:08/29/2024 03:23:47 PM Interpretation: Performing Lab: Notes/Report: [facility] , SARS-CoV-2 Ag NEGATIVE NEGATIVE This test [...] Performing Lab: see note ML - [facility] LB UA (CLEAN or CATCH) MICROSCO PIC IF INDICATE Reviewed date:08/29/2024 03:23:47 PM Interpretation: Performing Lab: Notes/Report: [facility] , Color Urine LT. YELLOW YELLOW Clarity Urine CLEAR CLEAR Specific [place] Urine <=1.005 1.005-1.025 pH Urine 6.0 5.0-9.0 Protein Urine NEGATIVE NEG/TRACE mg/dL Glucose Urine UA NEGATIVE NEGATIVE mg/dL Bilirubin Urine NEGATIVE NEGATIVE Ketones Urine NEGATIVE NEGATIVE mg/dL Blood Urine NEGATIVE NEGATIVE Nitrite Urine NEGATIVE NEGATIVE Urobilinogen Urine 0.2 0.2-1.0 EU/dL Leukocyte Esterase Urine NEGATIVE NEGATIVE Urine Microscopic Indicated NO Performing Lab: see note ML - [facility] LB PROF CHEM 8 (BAS METB) Reviewed date:08/29/2024 03:23:47 PM Interpretation: Performing Lab: Notes/Report: [facility] , Sodium 145 136-145 mmol/L Potassium 3.7 [...] Performing Lab: see note ML - [facility] LB CBC AUTO DIFF Reviewed date:08/29/2024 03:23:47 PM Interpretation: Performing Lab: Notes/Report: [facility] , White Blood Count 13.0 4.0-11.0 10 [...] Performing Lab: see note ML - [facility] LB CREATININE Reviewed date:07/13/2024 12:41:17 PM Interpretation: Performing Lab: Notes/Report: [facility] , Creatinine 1.22 0.55-1.02 mg/dL Estimated GFR ( Cole[place] 52 >=60 mL/min/1.73m 2 Estimated GFR (Non- Ngoc 43 >=60 mL/min/1.73m 2 Performing Lab: see note ML - [facility] LB CALCIUM Reviewed date:07/13/2024 12:41:17 PM Interpretation: Performing Lab: Notes/Report: [facility] , Calcium 9.7 8.5-10.1 mg/dL Performing Lab: see note - [facility] LB XR cervical spine 2-3V Reviewed date:04/24/2024 01:37:34 PM Interpretation: Performing Lab: Notes/Report: Source Facility: [place] [address] [place] [address] XRay Report Signed Patient: ADRIANNA BUITRAGO MR#: [id number] : 1950 Acct:[id number] Age/Sex: 73 / F ADM Date: 04/22/24 Loc: EC Attending Dr: Krystyna Caba M.D. Ordering Physician: Krystyna Caba M.D. Date of Service: 04/22/24 Procedure(s): XR cervical spine 2-3V Accession Number(s): [id number] cc: Jenny Burris M.D.; Krystyna Caba M.D. [place] [address] Patient Name: ADIRANNA BUITRAGO MRN: [id number] date: 1950 Sex: F Assigned Patient Location: EC Current Patient Location: EC Accession/Order Number: [id number] Exam Date: 04/22/2024 10:05 Report Date: 04/24/2024 [...] M.D. Signed By: 04/24/2448 DD/ 4 TD/TT: [employer]: [place] [address] XRay Report Signed Patient: LALI BUITRAGO MR#: [id number] : 1950 Acct:[id number] Age/Sex: 73 / F ADM Date: 04/22/24 Loc: EC Attending Dr: Krystyna Caba M.D. Ordering Physician: Krystyna Caba M.D. Date of Service: 04/22/24 Procedure(s): XR cer vical spine 2-3V Accession Number(s): [id number] cc: Jenny Burris M.D. ; Krystyna Caba M.D. [place] [id number] Patient Name: ADRIANNA BUITRAGO MRN: [id number] date: 1950 Sex: F Assigned Patient Location: Current Patient Loca tion: Accession/Order Numb er: [id number] Exam Date: 04/22/2024 10:05 Report Date: 04/24/2024 [...] Nany Hernandez M.D. Signed By: 04/24/2448 DD/ TD/TT: [employer]: NIKKI tomosynthesis screening B I Reviewed date:01/31/2024 10:37:30 PM Interpretation: Performing Lab: Notes/Report: Source Facility: [facility]-[address] [place] [address] [place] [address] Mammography Report Signed Patient: ADRIANNA BUITRAGO MR#: [id number] : 1950 Acct:[id number] Age/Sex: 73 / F ADM Date: 01/29/24 Loc: MAMMO Attending Dr: Jenny Burris M.D. Ordering Physician: Jenny Burris M.D. Results: Date of Service: 01/29/24 Follow Up: Procedure(s): MM tomosynthesis screening BI Accession Number(s): [id number] cc: Jenny Burris M.D. Patient Name: ADRIANNA BUITRAGO MR#: [id number] : 1950 Exam Date: 01/29/2024 Ordering Doctor: [...] lung cancer at age 59. LOCATION: The [facility] BREAST COMPOSITION: There are scattered areas [...] M.D. Signed By: 01/31/241947 DD/ 46 TD/TT: [employer]: [place] [address] Mammography Report Signed Patient: LALI BUITRAGO MR#: [id number] : 1950 Acct:[id number] Age/Sex: 73 / F ADM Date: 01/29/24 Loc: MAMMO Attending Dr: Dontae Burris M.D. Ordering Physician: Jenny Burris M.D. Results: Date of Service: Follow Up: Procedure(s): MM tomosynthesis screening BI Accession Number(s): [id number] cc: Jenny Burris M.D. Patient Name: ADRIANNA BUITRAGO MR#: [id number] : 1950 Exam Date: 01/29/2024 Ordering Doctor: [...] lung cancer at age 59. LOCATION: The [facility] BREAST COMPOSITION: There are scattered areas of [...] M.D. Signed By: 01/31/241947 DD/ 46 TD/TT: [employer]: PROF LAVONNE Espitia ([facility] MET) Reviewed date:01/14/2024 10:18:20 AM Interpretation: Performing Lab: Notes/Report: [facility] , Sodium 138 136-145 mmol/L Potassium [...] mg/dL Performing Lab: see note ML - [facility] LB CREATININE Reviewed date:01/11/2024 09:54:46 AM Interpretation: Performing Lab: Notes/Report: [facility] , Creatinine 1.42 0.55-1.02 mg/dL Estimated GFR ( Coleen 44 >=60 mL/min/1.73m 2 Estimated GFR (Non- Ngoc 36 >=60 mL/min/1.73m 2 Performing Lab: see note ML - [facility] LB CALCIUM Reviewed date:01/11/2024 09:54:46 AM Interpretation: Performing Lab: Notes/Report: [facility] , Calcium 10.2 8.5-10.1 mg/dL Performing Lab: see note ML - [facility] LB PROF CHEM 8 (ODILON METB) Reviewed date:01/11/2024 08:06:02 PM Interpretation: Performing Lab: Notes/Report: [facility] , Sodium 139 136-145 mmol/L Potassium [...] Performing Lab: see note ML - [facility] LB XR cervical spine 2-3V Reviewed date:04/13/2024 06:55:56 PM Interpretation: Performing Lab: Notes/Report: Source Facility: [place] [address] XRay Report Signed Patient: ADRIANNA BUITRAGO MR#: [id number] : 1950 Acct:[id number] Age/Sex: 73 / F ADM Date: 04/12/24 Loc: LAB Attending Dr: Jenny Burris M.D. Ordering Physician: Jenny Burris M.D. Date of Service: 04/12/24 Procedure(s): XR cervical spine 2-3V Accession Number(s): [id number] cc: Jenny Burris M.D. [place] [address] Patient Name: ADRIANNA BUITRAGO MRN: [id number] date: 1950 Sex: F Assigned Patient Location: LAB Current Patient Location: PT Accession/Order Number: [id number] Exam Date: 04/12/2024 09:40 Report Date: 04/12/2024 [...] M.D. Signed By: 04/12/242213 DD/ 10 TD/TT: [employer]: The [address] [address] XRay Report Signed Patient: LALI BUITRAGO MR#: [id number] : 1950 Acct:[id number] Age/Sex: 73 / F ADM Date: 04/12/24 Loc: LAB Attending Dr: Dontae Burris M.D. Ordering Physician: Jenny Burris M.D. Date of Service: 04/12/24 Procedure(s): XR cer vical spine 2-3V Accession Number(s): [id number] cc: Jenny Burris M.D. [place] [id number] Patient Name: ADRIANNA BUITRAGO MRN: [id number] date: 1950 Sex: F Assigned Patient Location: LAB Current Patient Loca tion: PT Accession/Order Numb er: [id number] Exam Date: 04/12/2024 09:40 Report Date: 04/12/2024 [...] M.D. Signed By: 04/12/242213 DD/ 10 TD/TT: [employer]: Reason For Referral Diagnosis 1 Cervical radiculopat hy (M54.12) Referral Organization [facility] Referring Provider First Name Cornelio Referring Provider Last Name [place] Referring Provider Speciality Family Med icine Referred Provider [facility], Physical Therap y Referred Provider Specialty Physical Med icine and Rehabilitation Referral Priority Routine Diagnosis 1 Cervical radiculopat hy (M54.12) Referral Organization [facility] Medicine Referring Provider First Name Cornelio Referring Provider Last Name [place] Referring Provider Speciality Family Mikhail howard Referred Provider Krystyna Joseph Referred Provider Specialty [...] Orally Once a day PRN Active Ipratropium [place] 0.02 % 2.5 mL as needed Inhalation [...] Unknown 01/11/2022 Administered SARS-COV-2 COVID-19, mRNA, L TRAVEL RN-S, PF, 50 mcg/0.5 mL Unknown 02/04/2023 Administered [...] Status Risk Notes Problem Low back pain (906319381) Low back pain (724.5) Active confirmed Problem 347833869 Migraine without aura, not intractable, without status migrainosus (G43.009) Active confirmed Problem 45158488 Age-related osteoporosis without current pathological fracture (M81.0) Active confirmed Problem 605640884 Neoplasm of unce rtain behavior, 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 Problem 347032683 Mild intermitten t asthma, uncomplicated (J45.20) Active confirmed Problem Shortness of breath (275179691) Shortness of breath (R06.02) Active confirmed Problem Mitral regurgitation (74201038) Mitral regurgitation (I34.0) Active confirmed Problem Hypertension (09140479) Hypertension (I10) Active confirmed Problem Asthma (476014964) Asthma (J45.909) Active conf irmed Problem Gastroesophageal reflux disease (574158073) GERD (gastroesophageal reflux disease) (K21.9) Active confirmed Problem Cervical radiculopathy (88184894) Cervical radiculopathy (M54.12) Active confirmed Problem Hypothyroidism (35161806) Hypothyroidism (E03.9) Active confirmed Problem Edema (10115668) Edema (R60.9) Active confirmed Problem Venous insufficiency of leg (disorder) (250567785) Venous insufficiency (I87.2) Active confirmed Problem Osteopenia (501420538) Osteopenia (M85.80) Active confirmed Problem Degenerative arthritis (574299464) Degenerative arthritis (M19.90) Active confirmed Problem Lumbar radiculopathy (541143488) Lumbar radiculopathy (M54.16) Active confirmed Problem Acute sinusitis (73934875) Acute sinusitis (J01.90) Active confirmed Problem Allergic rhinitis (28086374) Allergic rhinitis (J30.9) Active confirmed Problem Cervical disc diseas e (902688670) Cervical disc disease (M50.90) Active confirmed Problem Migraine with aura (5470113) Migraine with aura (G43.109) Active confirmed Problem Osteoarthritis of hi p (813894386) 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) Active confirmed Problem Acute bronchiolitis (4087924) Acute bronchiolitis (J21.9) Active confirmed Problem Heart murmur (37414253) Cardiac murmur (R01.1) Active confirmed Problem 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) 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) Active confirmed Problem Degeneration of lumbar intervertebral disc (24355260) 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) Active confirmed Problem Hypercholesterolemia (43989353) Hypercholesterolemia (E78.00) Active confirmed Problem Age-related cataract (84678401) Senile cataract of left eye, unspecified age-related cataract type (H25.9) Active confirmed Problem COVID-19 (836223194) COVID-19 (U07.1) Active co nfirmed Vital Signs Heart Rate 61 /min 01/06/2024 Temperature 100.2 degrees Fahrenheit 08/31/2024 Blood pressure diastolic 84 mm Hg 11/23/2024 Oximetry 99 % 01/06/2024 Height 63 in 11/23/2024 Blood pressure systolic 132 mm Hg 11/23/2024 Weight 126.2 lbs 11/23/2024 BMI 22.35 kg/m2 11/23/2024 Encounters Encounter Location Date Provider Diagnosis [address] [place] [address] 11/08/2024 Cornelio Hoy Encounter for Medica re annual wellness exam Z00.[address] [address] 11/23/2024 Cornelio Hoy Hypertension I10 ; Hypothyroidism E03.9 ; Migraine with aura G43.109 and Asthma J45.[address] [address] 08/31/2024 Cornelio Hoy Acute bronchitis, unspecified organism J20.[address] [address] 05/26/2024 Cornelio Hoy Hypertension I10 ; G ERD (gastroesophageal reflux disease) K21.9 ; Hypothyroidism E03.9 and Cervical radiculopathy M54.[address] [address] 01/06/2024 Cornelio Hoy Acute bronchiolitis J21.[address] [address] 04/12/2024 Cornelio Hoy Degenerative arthrit is M19.90 ; Cervical disc disease M50.90 ; Cervical radiculopathy M54.12 and Edema R60.9 [address] [place] [address] 08/12/2024 Cornelio Hoy Asthma J45.909 [facility] [address] [place] [address] 09/20/2024 Cornelio Hoy [facility] [address] [place] [address] 09/20/2024 Cornelio Hoy [facility] [address] [place] [address] [place] [address] 11/23/2024 Cornelio Riveray Elevated liver funct ion tests R94.5 [facility] [address] [facility] [place] [address] 04/26/2024 Cornelio Burris [facility] [address] [facility] [place] [address] 04/28/2024 Cornelio Dayton [facility] [address] [facility] [place] [address] 05/02/2024 Cornelio Burris [facility] [address] [facility] [place] [address] 05/09/2024 Cornelio Dayton [facility] [address] [facility] [place] [address] 05/12/2024 Cornelio Burris [facility] [address] [facility] [place] [address] 06/20/2024 Cornelio Dayton [facility] [address] [facility] [place] [address] 04/08/2024 Cornelio Dayton [facility] [address] [facility] [place] [address] 04/12/2024 Cornelio Dayton [facility] [address] [facility] [place] [address] 04/13/2024 Cornelio Hoy Cervical radiculopat hy M54.12 [facility] [address] [facility] [place] [address] 04/18/2024 Cornelio Hoy Cervical radiculopat hy M54.12 [facility] [address] [facility] [place] [address] 04/22/2024 Cornelio Dayton [facility] [address] [facility] [place] [address] 04/25/2024 Cornelio Dayton [facility] [address] [facility] [place] [address] 01/11/2024 Cornelio Staffordy Creatinine elevation R79.89 [facility] [address] [facility] [place] [address] 01/11/2024 Cornelio Burris Creatinine elevation R79.89 [facility] [address] [place] [address] 01/14/2024 Cornelio Burris [facility] [address] [place] [address] 01/15/2024 Cornelio Burris [facility] [address] [place] [address] 01/31/2024 Lucía Nath [facility] [address] [place] [address] 02/11/2024 Cornelio Burris [facility] [address] [place] [address] 12/15/2023 Cornelio Riveraangelia Assessments Encounter Date Diagnosis (ICD Code) Assessment Notes Treatment Notes Treatment Clinical Notes Section Notes 05/26/2024 Hypertension (ICD-10 - I10) 05/26/2024 GERD (gastroesophageal reflux disease) (ICD-10 - K21.9) 04/12/2024 Degenerative arthritis (ICD-10 - M19.90) 04/12/2024 Cervical disc disease (ICD-10 - M50.90) 11/23/2024 Hypertension (ICD-10 - I10) 01/06/2024 Acute bronchiolitis (ICD-10 - J21.9) 11/23/2024 Hypothyroidism (ICD-10 - E03.9) 08/31/2024 Acute bronchitis, unspecified organism (ICD-10 - J20.9) if not better - needs ct scan schest dn abd-pelvis with contrast 11/08/2024 Encounter for Medicare annual wellness exam (ICD-10 - Z00.00) 01/11/2024 Creatinine elevation (ICD-10 - R79.89) 01/11/2024 Creatinine elevation (ICD-10 - R79.89) 04/13/2024 Cervical radiculopathy (ICD-10 - M54.12) 04/18/2024 Cervical radiculopathy (ICD-10 - M54.12) 08/12/2024 Asthma (ICD-10 - J45.909) 11/23/2024 Elevated liver function tests (ICD-10 - R94.5) 05/26/2024 Hypothyroidism (ICD-10 - E03.9) 11/23/2024 Migraine with aura (ICD-10 - G43.109) 04/12/2024 Cervical radiculopathy (ICD-10 - M54.12) 05/26/2024 Cervical radiculopathy (ICD-10 - M54.12) 04/12/2024 Edema (ICD-10 - R60.9) 11/23/2024 Asthma (ICD-10 - J45.909) Plan Of [...] MRI Cervical Spine w/o contrast * 2024 CMP - Comprehensive Metabolic Panel 11/05 Basic Metabolic Panel (8) 01/11/2024 THYROID PROFILE WITH TSH 12/05/2022 MG MAMM SCREEN 3D NOEL CAD 12/25/2022 MRI CSPINE WO CON 04/12/2024 XR DEXA BONE DENSITY 07/23/2023 THYROID PANEL (T4/TSH/FREE T3) 4 THYROID PANEL (T4/TSH/FREE T3) 5 THYROID PANEL (T4/TSH/FREE T3) 3 CMP (COMP MET TYSON) w/eGFR CKD-EPI 2024 CBC WITH DIFF 11/23/2024 Next Appt Details Provider Name:Cornelio Sobia Burris, 08:30:00 AM, [address] [facility], [place], [address], Insurance Providers Payer Name Payer Address Payer Phone Subscriber Number Group Number Insured Name Patient Relationship to Insured Coverage Start Date Coverage End Date [place]ARE [place] [address] [address] [id number] IftikharAdrianna Self - patient is the insured MMO MEDICARE SUPPLEMENT [address] [place] [address] [id number] BuitragoAdrianna Self - patient is the insured Medications [...] Surgery Date(Month/Year) sinus surgery SUE and DREW nasal septoplasty right foot x2 Lens implant OU Colonoscopy- Dr. Espinoza 08/05/2023
--- OUTSIDE RECORDS SUMMARY | 2024-11-29 16:01 | XMS_ITS | Encounter Summary ---
Author Organization [facility] Address [address] [place] [address] Care Team Providers Care Still Operator Helper Name Role Phone Miko Burris MD Primary Care Provider [phone] Encounter Details Date Type Department Care Team (Late st Contact Info) Description 11/17/2024 Bamboo flowsheet [facility] [address] [place] [address] Renny Orlando DPM [address] [address] Social History Tobacco Use Types Packs/Day Years [...] [facility] [address] [place] [address] Renny Orlando DPM [address] [address] 01/11/2025 9:20 AM EDT Office Visit [facility] [address] [facility] [address] [place] [address] Charles Faith MD [address] [facility] [address] [place] [address] documented as of this encounter Visit Diagnoses Not on filedocumented in this encounter Care Teams Still Operator Helper Relationship Specialty Start Date End Date Miko Burirs MD [address] [place] [address] PCP - General Family Medicine 04/30/23 documented as of this encounter
--- OUTSIDE RECORDS SUMMARY | 2024-11-29 16:01 | XMS_ITS | Patient Health Record ---
Author Organization [facility] Address [address] [place] [address] Care Team Providers Care Certified Surgical Technologist Name Role Phone José Miguel Joseph Unavailable [phone] Miko Burris Unavailable Unavailable xxSophia Austin Unavailable [phone] Allergies Allergen (clinical drug ingredient) Drug/Non Drug Allergy documented on EMR Reaction Allergy Type Onset Date Status amoxicillin amoxicillin itching Drug Allergy Act bar morphine morphine swelling, itch Drug Allergy Ac tive Reason For Referral Reason NO AUTH REQ......... ............................NOT SCHEDULED..................................MCR/MMO MRI LEFT SHOULDER TO BE DONE AT [facility] Diagnosis 1 Tear of left rotator cuff, unspecified tear extent, unspecified whether traumatic (M75.102) Referral Organization [facility] Referring Provider First Name Anyashane Referring Provider Last Name St Adhikari Referring Provider Speciality Orthopedic Surgery Referred Organization [facility] Outpatient Referred Address [address] [place],[address], Procedure 1 MRI Joint Upper Ext w/o Dye ([id number]) General Notes Farida Doyle 025 11:02:20 AM [...] Problem Status W/U Status Risk Notes Problem 40448685 Cervical radiculopathy (M54.12) Active confirmed Problem 08775671 Cervical spinal stenosis (M48.02) Active confirmed Problem 25685502 Muscle weakness (M62.81) Active confirmed Problem 79229424 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-C5 level (M50.321) Active confirmed Problem 44114241 Other cervical disc degeneration at C5-C6 level (M50.322) Active confirmed Problem 07265548 Other cervical disc degeneration at C6-C7 level (M50.323) Active confirmed Problem 47804336 Other cervical disc degeneration, high cervical region (M50.31) Active confirmed Problem 543029684 Complete tear of left rotator cuff, unspecified whether traumatic (M75.122) Active confirmed Problem [id number] 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) Active confirmed Encounters Encounter Location Date Provider Diagnosis [address] [place] [address] 04/22/2024 Sophia Griffith Other cervical disc degeneration, high cervical region M50.31 ; 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-C5 level M50.321 ; Other cervical disc degeneration at C5-C6 level M50.322 ; Other cervical disc degeneration at C6-C7 level M50.323 ; Cervical radiculopathy M54.12 ; Neuroforaminal stenosis of cervical spine M48.02 and Muscle weakness M62.81 [facility] Office [facility] [place] [address] 05/13/2024 Sophia Griffith Other cervical disc degeneration, [...] Cervical spine 2 v FLEX, EXT - 77115 MRI Shoulder Left w/o Contrast 5 Insurance Providers Payer Name Payer Address Payer Phone Subscriber Number Group Number Insured Name Patient Relationship to Insured Coverage Start Date Coverage End Date Medicare [address] [address] [id number] AKIRA BUITRAGO Self - patient is the insured Medical [facility] [address] [place] [address] [id number] AKIRA BUITRAGO Self - patient is the insured Medical (General) History Medical History History ICD Code Hypertension Heart murmur Asthma Bronchitis Thyroid disease GERD: Osteoporosis Osteoarthritis
--- OUTSIDE RECORDS SUMMARY | 2024-11-29 16:01 | XMS_ITS | Encounter Summary ---
Author Organization [facility] Address [address] [place] [address] Care Team Providers Care Regulatory Law Specialist Name Role Phone Miko Burris MD Primary Care Provider [phone] Encounter Details Date Type Department Care Team (Late Contact Info) Description 12/12/2022 Abstract [facility] [address] [facility] [place] [address] [place] [address] Charles Faith MD [address] [facility] [address] [place] [address] Social History Tobacco Use Types Packs/Day Years [...] EDT Office Visit [facility] [address] [facility] [address] [place] [address] Renny Orlando DPM [address] [facility] [address] [place] [address] 01/11/2025 9:20 AM EDT Office Visit [facility] [address] [facility] [address] [place] [address] Charles Faith MD [address] [facility] [address] [place] [address] documented as of this encounter Visit Diagnoses Not on filedocumented in this encounter Care Teams Regulatory Law Specialist Relationship Specialty Start Date End Date Miko Burris MD [address] [place] [address] PCP - General Family Medicine 04/30/23 documented as of this encounter
--- OUTSIDE RECORDS SUMMARY | 2024-11-29 16:02 | XMS_ITS | Clinical Summary ---
Demographics Address [address] [place] [address] Home Phone Preferred Language en Marital Status Protestant Affiliation Unknown Race White Ethnic Group Not or Lati no Author Organization [facility] Address [address] [place] [address] Care Team Providers Care Make Up Operator Name Role Phone Miko Burris MD Primary Care Provider [phone] Allergies Active Allergy Reactions Criticality Noted Date [...] Description 11/07/2024 9:00 AM EDT Office Visit [facility] [address] [address] Azam Garcia MD Primary hypertension [...] to complete this topic Insurance MEDICARE [employer] [place] Care Teams Make Up Operator Relationship Specialty Start Date End Date Miko Burris MD [address] [facility] [place] [address] PCP - General 05/14/22
--- OUTSIDE RECORDS SUMMARY | 2024-11-29 16:02 | XMS_ITS | Clinical Summary ---
Author Organization [facility] Address [address] [place] [address] Care Team Providers Care Patient Experience Coordinator Name Role Phone Miko Burris MD Primary Care Provider [phone] Allergies Active Allergy Reactions Criticality Noted Date [...] PM EDT Office Visit [facility] [address] [place] [address] Renny Orlando DPM Tinea corporis (Primary Dx); Verruca plantaris; Foot pain, right; Foot pain, left 11/17/2024 Bamboo flowsheet [facility] [address] [place] [address] Renny Orlando DPM 11/17/2024 Travel 11/03/2024 9:50 AM EDT Office Visit [facility] [address] [address] [place] [address] Renny Orlando DPM Tinea corporis (Primary Dx); Verruca plantaris; Foot pain, right; Foot pain, left 11/03/2024 Bamboo flowsheet [facility] [address] [place] [address] Renny Orlando DPM 11/03/2024 Travel 10/20/2024 11:50 AM EDT Office Visit [facility] [address] [place] [address] Renny Orlando DPM Verruca plantaris (Primary Dx); Foot pain, right; Foot pain, left; Pain due to onychomycosis of toenails of both feet 10/20/2024 Bamboo flowsheet [facility] [address] [place] [address] Renny Orlando DPM 10/20/2024 Travel from Last 3 Months Family History [...] 12/08/2024 11:00 AM EDT Office Visit [facility] [address] [place] [address] [place] [address] Renny Orlando DPM [address] [facility] [address] [place] [address] 01/11/2025 9:20 AM EDT Office Visit [facility] [address] [place] [place] [address] Charles Faith MD [address] [facility] [address] [place] [address] Health Maintenance Due Date Last Done Comments CT Colonography 1950 Colonoscopy 1950 Colorectal Cancer Screening 1950 FIT-DNA 1950 FIT 1950 FOBT 1950 Sigmoidoscopy 1950 Pneumococcal Vaccine: 65+ Years (2 of 2 - PPSV23) 10/0510/27/2017 Influenza Vaccine (#1) 2024 Insurance * Guarantor: Adrianna Buitrago Account Type Relation to Patient Date of Phone Billing Address Personal/Family Self 1950 [address] [place] [address] MEDICARE [employer] Care Teams Patient Experience Coordinator Relationship Specialty Start Date End Date Miko Burris MD [address] [place] [address] PCP - General Family Medicine 04/30/23
--- NOTE | 2024-11-29 16:41 | ED.GENADUL1 ---
HPI HPI - General Adult General Chief complaint: Fall Stated complaint: FALL Time Seen by Provider: 11/29/24 16:05 Source: patient Mode of arrival: walk-in Limitations: no limitations History of Present Illness HPI narrative: 74-year-old female presents here to the emergency room with chief complaint of skin tear to the right upper extremity and left knee. 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 She states her arm ran down the wall causing a skin tear and a abrasion on her knee. She is not up-to-date on her tetanus. She denies any loss conscious. Has no neck pain. The injury did occur last evening. She states she came here today for a tetanus update and dressing change for her skin tears. Related Data Home Medications ?Medication ?Instructions ?Recorded ?Confirmed azelastine 137 mcg (0.1 %) nasal 137 mcg intranasal DAILY 07/08/23 08/31/24 spray budesonide 1 mg/2 mL suspension 1 mg inhalation DAILY 07/08/23 08/31/24 for nebulization clonidine HCl 0.1 mg tablet 0.1 mg PO Q12H 07/08/23 08/31/24 fenofibrate 160 mg tablet 160 mg PO DAILY 07/08/23 08/31/24 furosemide 20 mg tablet 20 mg PO DAILY 07/08/23 08/31/24 lactulose 10 gram/15 mL oral 20 g PO BID 07/08/23 08/31/24 solution levothyroxine 100 mcg tablet 100 mcg PO DAILY 07/08/23 08/31/24 omeprazole 40 mg capsule,delayed 40 mg PO DAILY 07/08/23 08/31/24 release potassium chloride 10 mEq 10 meq PO TID 07/08/23 08/31/24 tablet,extended release pravastatin 10 mg tablet 10 mg PO DAILY 07/08/23 08/31/24 aspirin 81 mg tablet,delayed 81 mg PO DAILY 07/24/23 08/31/24 release (Adult Aspirin Regimen) budesonide 160 mcg-glycopyr 9 2 inh inhalation BID 07/24/23 08/31/24 mcg-formot 4.8 mcg/actuation HFA inhaler (Breztri Aerosphere) cetirizine 10 mg tablet 10 mg PO DAILY 07/24/23 08/31/24 denosumab 60 mg/mL subcutaneous 60 mg subcut .every 6 months 07/24/23 08/31/24 syringe (Prolia) fluticasone propionate 50 2 spray intranasal DAILY 07/24/23 08/31/24 mcg/actuation nasal spray,suspension liothyronine 5 mcg tablet (Cytomel) 5 mcg PO DAILY 07/24/23 08/31/24 multivitamin 1 tab PO DAILY 07/24/23 08/31/24 ubrogepant 100 mg tablet (Ubrelvy) 100 mg PO DAILY 07/24/23 08/31/24 albuterol sulfate 2.5 mg/0.5 mL 2.5 mg inhalation TID-QID PRN 07/27/23 08/31/24 solution for nebulization shortness of breath or wheezing budesonide 160 mcg-glycopyr 9 2 inh inhalation DAILY 01/11/24 01/11/24 mcg-formot 4.8 mcg/actuation HFA inhaler (Breztri Aerosphere) calcium 315 mg (as 1 tab PO DAILY 01/11/24 08/31/24 citrate)-vitamin D3 5 mcg (200 unit) tablet (Calcium Citrate + D) docosahexaenoic acid (dha)-epa 120 1 cap PO DAILY 01/11/24 08/31/24 mg-180 mg capsule (Fish Oil) [id number] 1 tab PO DAILY 01/11/24 08/31/24 750 mg-100 mg-125 mg-1.65 mg tablet (Glucosamine Chondroit Complx Advan) Previous Rx's ?Medication ?Instructions ?Recorded ondansetron 4 mg disintegrating 4 mg PO Q6H PRN nausea and 08/31/24 tablet vomiting #20 tabs Allergies Allergy/AdvReac Type Severity Reaction Status Date / Time amoxicillin Allergy Unknown itching Verified 11/29/24 16:00 morphine Allergy Unknown itching Verified 11/29/24 16:00 Opioid HPI Opioid Management Most Recent Opioid Data: Last Pain Scale 2 08/31/24, 06:41 Review of Systems ROS Status of ROS 10 or more systems reviewed and unremarkable except as noted in history and below [facility] Medical History (Updated 11/29/24 @ 16:40 by Lexie Zamarripa) COPD (chronic obstructive pulmonary disease) ?J44.9 - Chronic obstructive pulmonary disease, unspecified (ICD-10) COVID ?U07.1 - COVID-19 (ICD-10) Chronic bronchitis ?J42 - Unspecified chronic bronchitis (ICD-10) Venous insufficiency ?I87.2 - Venous insufficiency (chronic) (peripheral) (ICD-10) Tricuspid valve disease ?I07.9 - Rheumatic tricuspid valve disease, unspecified (ICD-10) Peripheral vascular disease ?I73.9 - Peripheral vascular disease, unspecified (ICD-10) Osteoporosis ?M81.0 - Age-related osteoporosis without current pathological fracture (ICD-10) Mitral valve insufficiency ?I34.0 - Nonrheumatic mitral (valve) insufficiency (ICD-10) Migraines ?G43.909 - Migraine, unspecified, not intractable, without status migrainosus (ICD-10) Lumbar radiculopathy ?M54.16 - Radiculopathy, lumbar region (ICD-10) Hypothyroidism ?E03.9 - Hypothyroidism, unspecified (ICD-10) Hyperlipidemia ?E78.5 - Hyperlipidemia, unspecified (ICD-10) Hypercholesteremia ?E78.00 - Pure hypercholesterolemia, unspecified (ICD-10) GERD (gastroesophageal reflux disease) ?K21.9 - Gastro-esophageal reflux disease without esophagitis (ICD-10) Hypertension ?I10 - Essential (primary) hypertension (ICD-10) Cervical disc disease ?M50.90 - Cervical disc disorder, unspecified, unspecified cervical region (ICD-10) Heart murmur ?R01.1 - Cardiac murmur, unspecified (ICD-10) Asthma ?J45.909 - Unspecified asthma, uncomplicated (ICD-10) Surgical History (Updated 08/05/23 @ 08:47 by Carolina Kruger) H/O foot surgery ?Z98.890 - Other specified postprocedural states (ICD-10) History of total abdominal hysterectomy and bilateral salpingo-oophorectomy ?Z90.710 - Acquired absence of both cervix and uterus (ICD-10) ?Z90.722 - Acquired absence of ovaries, bilateral (ICD-10) ?Z90.79 - Acquired absence of other genital organ(s) (ICD-10) History of nasal septoplasty ?Z98.890 - Other specified postprocedural states (ICD-10) Hx of cataract surgery ?Z98.49 - Cataract extraction status, unspecified eye (ICD-10) History of colonoscopy ?Z98.890 - Other specified postprocedural states (ICD-10) Family History (Updated 07/24/23 @ 14:02 by Carolina Kruger) Other Family history of COPD (chronic obstructive pulmonary disease) Family history of cancer Family history of hypertension Heart disease Social History (Updated 07/27/23 @ 14:44 by Chelo Fulton RN) Within the past year, how often did you have a drink containing alcohol: never Score interpretation: A score less than 3 is consistent with normal alcohol consumption. 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 General: The patient appears well and in no apparent distress. Patient is resting comfortably on cart. Skin: Warm, dry, no pallor noted. There is no rash noted. Head: Normocephalic, atraumatic neck: supple, no midline tenderness Eye: Normal conjunctiva, no drainage, EOMI. PERRL Ears, Nose, Mouth, and Throat: oral mucosa is moist. Nares patent. Mouth without vesicles. Ear canals patent. Tm's without Erythema Cardiovascular: Regular Rate and Rhythm Respiratory: Patient is in no distress, no accessory muscle use, lungs are clear to auscultation, no wheezing, rales or rhonchi Musculoskeletal: right upper extremity skin tear, left knee abrasion <1cm The patient has no evidence of calf tenderness, no pitting edema, symmetrical pulses noted bilaterally Neurological: A&O x4, normal speech Psychiatric: Cooperative Constitutional Vital Signs, click to edit/add: Last Vital Signs Temp 98.1 F 11/29/24 16:00 Pulse 83 11/29/24 16:00 Resp 24 H 11/29/24 16:00 BP 169/90 H 11/29/24 16:00 Pulse Ox 100 11/29/24 16:00 Course Vital Signs Vital signs: Vital Signs Temperature 98.1 F 11/29/24 16:00 Pulse Rate 83 11/29/24 16:00 Respiratory Rate 24 H 11/29/24 16:00 Blood Pressure 169/90 H 11/29/24 16:00 Pulse Oximetry 100 11/29/24 16:00 Temperature 98.1 F 11/29/24 16:00 Pulse Rate 83 11/29/24 16:00 Respiratory Rate 24 H 11/29/24 16:00 Blood Pressure 169/90 H 11/29/24 16:00 Pulse Oximetry 100 11/29/24 16:00 Medical Decision Making MDM Narrative Medical decision making narrative: 74-year-old female presents here to the emergency room with chief complaint of skin tear to the right upper extremity and left knee. 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 She states her arm ran down the wall causing a skin tear and a abrasion on her knee. She is not up-to-date on her tetanus. She denies any loss conscious. Has no neck pain. The injury did occur last evening. She states she came here today for a tetanus update and dressing change for her skin tears. Presenting here with chief complaint of a skin tear after an accidental tripping on a ladder yesterday. Wounds were dressed by nursing staff. Bacitracin dressing sent to the pharmacy. Patient's questions were answered. No further testing was necessary. Patient was also updated with her Boostrix. Differential Diagnosis Differential Diagnosis: skin tear, abrasion Medical Records Medical records reviewed: Yes I reviewed the patient's medical records Lab Data Lab results reviewed: Yes I reviewed the patient's lab results Discharge Plan Discharge Chief Complaint: Fall Clinical Impression: Fall, Skin tear Patient Disposition: Home, Self-Care Time of Disposition Decision: 16:39 Condition: Good Prescriptions / Home Meds: No Action Breztri Aerosphere 160-9-4.8 mcg/actuation HFA aerosol inhaler 2 inh inhalation DAILY calcium citrate-vitamin D3 [Calcium Citrate + D] 315 mg-5 mcg (200 unit) tablet 1 tab PO DAILY Fish Oil 120-180 mg capsule 1 cap PO DAILY Glucos Chond Cplx Advanced 750 mg-100 mg- 125 mg-1.65 mg tablet 1 tab PO DAILY ondansetron 4 mg tablet,disintegrating 4 mg PO Q6H PRN (Reason: nausea and vomiting) Qty: 20 0RF aspirin [Adult Aspirin Regimen] 81 mg tablet,delayed release (DR/EC) 81 mg PO DAILY Breztri Aerosphere 160-9-4.8 mcg/actuation HFA aerosol inhaler 2 inh inhalation BID cetirizine 10 mg tablet 10 mg PO DAILY liothyronine [Cytomel] 5 mcg tablet 5 mcg PO DAILY fluticasone propionate 50 mcg/actuation spray,suspension 2 spray intranasal DAILY Rx Instructions: administer into each nostril Ubrelvy 100 mg tablet 100 mg PO DAILY Prolia 60 mg/mL syringe 60 mg subcut .every 6 months Patient Comments: last dose was in last month multivitamin Tablet 1 tab PO DAILY albuterol sulfate 2.5 mg/0.5 mL solution for nebulization 2.5 mg inhalation TID-QID PRN (Reason: shortness of breath or wheezing) clonidine HCl 0.1 mg tablet 0.1 mg PO Q12H potassium chloride 10 mEq tablet extended release 10 meq PO TID omeprazole 40 mg capsule,delayed release(DR/EC) 40 mg PO DAILY levothyroxine 100 mcg tablet 100 mcg PO DAILY pravastatin 10 mg tablet 10 mg PO DAILY furosemide 20 mg tablet 20 mg PO DAILY azelastine 137 mcg (0.1 %) aerosol,spray 137 mcg INTRANASAL DAILY lactulose 10 gram/15 mL solution 20 g PO BID fenofibrate 160 mg tablet 160 mg PO DAILY budesonide 1 mg/2 mL suspension for nebulization 1 mg inhalation DAILY Print Language: Turkmen Instructions: Fall Prevention for Older Adults (ED), Skin Tear (ED) Referrals: Miko Burris MD [Primary Care Provider, Family Practice] - 1 week
[2024-11-29] MEDS: DIPHTH,PERTUSS(ACELL),TET VAC 0.5 ML SYRINGE IM (16:44)
--- OUTSIDE RECORDS SUMMARY | 2024-11-29 17:26 | XMS_ITS | CCD ---
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 Name Role Phone HOY ., [...] Unavailable Jenny Burris MD Primary Care Provider [phone] Issa VALE Attending Unavailable Issa VALE Attending Unavailable Jenny Burris MD Primary Care Provider [phone] Jenny Burris MD Primary Care Provider [phone] HOMER STEVENS Attending Unavailable ALGHOTHANI, MOHAMAD Attending Unavailable BROWN, RENNY A Attending Unavailable BROWN, RENNY A Attending Unavailable BROWN, RENNY A Attending Unavailable BROWN, RENNY A Attending Unavailable BROWN, RENNY A Attending Unavailable SANDEEP PLEITZE Attending Unavailable BROWN, RENNY A Attending Unavailable BROWN, RENNY A Attending Unavailable BROWN, RENNY A Attending Unavailable BROWN, RENNY A Attending Unavailable BROWN, RENNY A Attending Unavailable KEILA FAITH Attending Unavailable Allergies Allergy Classification Reported Allergen(s) Allergy Type Date of Onset Reaction(s) Facility (2 sources) Amoxicillin; Translations: [AMOXICILLIN] Drug Allergy 3 [facility] Repository (3 sources) Morphine; Translations: [morphine] Drug Allergy 3 [facility] Repository (20 sources) Amoxicillin Drug Allergy 3 Itching, Other, Unknown [facility] (20 sources) Mold Extract Drug Allergy 4 Unknown [facility] (20 sources) Morphine Drug Allergy 3 Itching, Other [facility] (1 source) Penicillin; Translations: [penicillin] Drug Allergy [facility] Repository (1 source) No Known Medication Allergies; Translations: [No Known Medication Allergies] Propensity to adverse reactions (disorder) [facility] Repository (1 source) Mold Extract; Translations: [MOLD] Drug Allergy 4 [facility] Repository Medications Current Medications Medication [...] take 1 puff(s) by inhalation once daily Eqxygvy-Rvrvaylmdhb-Mdjvhnevah (Breztri Aerosphere) 160-9-4.8 MCG/ACT aerosol Inhale 1 puff Daily Active 168 hr cloNIDine 0.40122 mg/hr transdermal system (20 sources) Central alpha-2 [...] Range Facility Office Visiton 11-07-2024 Follow-up visit [id number] Shirley Buitrago D 1950 F Date Provider Department Center 11/07/2024 HOMER STORY CARD [facility] Family History Problem Relation Age of Onset Heart attack Father Coronary artery disease Sister Peripheral vascular disease Sister Heart attack Brother Family Status - Relation Status Age at Mother Father Sister Brother Level of Service:39454 MO OFFICE/OUTPATIENT ESTABLISHED MOD MDM 30 MIN Normal [facility] Office Visiton 04-29-2024 Follow-up visit [id number] Shirley Buitrago ly D 1950 F Date Provider Department Center 04/29/2024 384Nupur-JUANITA JENKINS CARD [facility] Family History Problem Relation Age of Onset Heart attack Father Coronary artery disease Sister Peripheral vascular disease Sister Heart attack Brother Family Status - Relation Status Age at Father Sister Brother Level of Service:19762 MO OFFICE/OUTPATIENT ESTABLISHED LOW MDM 20 MIN Normal [facility] Outside Colonoscopyon 2023 Outside Colonoscopy [id number]#[id number] 0TIFF [facility] Reminderson 08-07-2023 Reminders - From: Kandi Cesar LPN To: GSN - Clinical; Sent: 08/07/2023 07:59:01 EDT Show up: 07/06/2033 07:59:00 EDT Subject: colonoscopy recall Due Date/Time: 08/04/2033 07:00:00 EDT Reminder/Recall If patient is in good health, she is due for screening colonoscopy 08/04/2033. Normal [facility] Consent for Procedure/Surger yon 06-10-2023 Consent for Procedure/Surgery [id number] 0TIFF [facility] Ambulatory Visit Summaryon 0 06-09-2023 [...] oral tablet) fluticasone nasal (Flonase 0.05 mg/inh [place]) furosemide (Lasix 20 mg Tab) lactulose (lactulose [...] Unchanged fluticasone nasal (Flonase 0.05 mg/ inh [place]) 2 Sprays Nasal Inhalation Every day Contact [...] for choosing us for your care. Normal [facility] Physician Referralon 024 Physician Referral [id number] 20 [id number] 0TIFF Normal [facility] CALCIUMon 07-02-2022 Calcium [Mass/Vol] 9.8 mg/dL Normal 8.5-10.1 [facility] Comment on above: Performed By: #### C A, CREA #### [facility] [address] [address] [address] Zuly Medina CREATININEon 07-02-2022 Creatinine [Mass/Vol] 1.41 mg/dL Critically high 0.55-1.02 [facility] Comment on above: Performed By: #### C A, CREA #### [facility] [address] [place] [address] Dr. Zuly Medina EGFR-AF VENEZUELAN 44 mL/min/1.73m2 Critically low >=60 [facility] Comment on above: Performed By: #### C A, CREA #### [facility] [address] [address] [address] Zuly Medina EGFR-NON AF VENEZUELAN 37 mL/min/1.73m2 Critically low >=60 [facility] Comment on above: Performed By: #### C A, CREA #### [facility] [address] [place] [address] Dr. Zuly Medina MRI LSPINE WO CONon [...] by: TESSA ESTEVES Date: 2022-06-02 07:58 Normal [facility] VC VENOUS REFLUX NOEL LMTon 0 05-30-2022 VC VENOUS REFLUX NOEL LMT Patient: ADRIANNA BUITRAGODexter Exam Date: 05/30/2022 : 1950 Gender:F Ordering : DR JENNY BURRIS . Admission #: [id number] Family : Order #: [id number] CLICK HERE TO VIEW EXAM RADIOLOGY REPORT [...] Compressibility: Normal. Flow: Deep venous reflux. Director Imaging: Tech Note: Proximal medial lower leg varicose [...] Esteves MD on 05/30/2022 at 11:20 Normal [facility] STRESS/REST MULTIon 05-26 RI STRESS/REST MULTI Patient: ADRIANNA BUITRAGO Exam Date: 05/26/2022 : 1950 Gender:F Ordering : JUANITA JENKINS Admission #: [id number] Family : DR JENNY BURRIS . Order #: [id number] CLICK HERE TO VIEW EXAM RADIOLOGY REPORT [...] Garcia M.D. on 05/27/2022 at 13:00 Normal [facility] XR LSPINE MIN 4 VIEWSon 05-07 XR [...] by: WEI GARCIA Date: 2022-05-23 14:32 Normal [facility] Covid-19 PCR (CVDTB)on 05-07 SARS-CoV-2 (COVID-19) RNA MARY+probe Ql (Unsp spec) Not detected Normal NOT DETECTED [facility] Comment on above: Result Comment: This test is not yet approved or cleared by the [place] FDA. When there are no FDA-approved or cleared tests available, and other criteria are met, FDA can make tests available under an emergency access mechanism called an Emergency Use Authorization (EUA). The EUA for this test is supported by the [place] of Health and Human Service's (HHS's) declaration [...] #### C VDTBH #### [facility] [address] [place] [address] Dr. Zuly Medina INFLUENZA [facility] Normal [facility] Comment on above: Result Comment: Nega tive for Flu A protein angiten. Infection due to Flu A cannot be ruled out. Flu A angiten in the sample may be below the detection limit of the test. Performed By: #### I NFLUAB #### [facility] [address] [place] [address] Dr. Zuly Medina INFLUBNEG SEE BELOW Normal [facility] Comment on above: Result Comment: Nega tive for Flu B protein antigen. Infection due to Flu B cannot be ruled out. Flu B antigen in the sample may be below the detection limit of the test. Performed By: #### I NFLUAB #### [facility] [address] [place] [address] Dr. Zuly Medina INFLUENZA A AG Negative Normal NEGATIVE SEE COMMENT [facility] Comment on above: Performed By: #### I NFLUAB #### [facility] [address] [address] [address] Zuly Medina INFLUENZA B AG Negative Normal NEGATIVE SEE COMMENT [facility] Comment on above: Performed By: #### I NFLUAB #### [facility] [address] [place], [place] [address] Dr. Zuly Medina ECHOCARDIO M/2D COMPLETEon 0 05-14-2022 ECHOCARDIO M/2D COMPLETE Patient: ADRIANNA BUITRAGO Exam Date: 05/14/2022 : 1950 Gender:F Ordering : JUANITA ROMEROAMINADUC Admission #: [id number] Family : DR JENNY BURRIS . Order #: [id number] CLICK HERE TO VIEW EXAM ECHOCARDIOGRAM REPORT [...] Stevens M.D. on 05/15/2022 at 18:51 Normal [facility] MAMM SCREEN 3D NOEL CADon 01-22-2022 MG MAMM SCREEN 3D NOEL CAD Patient: ADRIANNA BUITRAGODexter Exam Date: 01/22/2022 : 1950 Gender:F Ordering : DR JENNY BURRIS . Admission #: [id number] Family : Order #: [id number] CLICK HERE TO VIEW EXAM RADIOLOGY REPORT [...] age 59. LOCATION: [facility] BREAST COMPOSITION: Scattered areas fibroglandular density. [...] Garcia M.D. on 01/22/2022 at 14:36 Normal [facility] CALCIUMon 12-31-2021 Calcium [Mass/Vol] 10.0 mg/dL Normal 8.5-10.1 [facility] Comment on above: Performed By: #### Oliverio SIMS [place] #### [facility] [address] [address] [address] Zuly Medina CREATININEon 12-31-2021 Creatinine [Mass/Vol] 1.33 mg/dL Critically high 0.55-1.02 [facility] Comment on above: Performed By: #### Oliverio SIMS CA #### [facility] [address] [address] [address] Zuly Medina EGFR-AF VENEZUELAN 48 mL/min/1.73m2 Critically low >=60 [facility] Comment on above: Performed By: #### Oliverio SIMS [place] #### [facility] [address] [address] [address] Zuly Medina EGFR-NON AF VENEZUELAN 39 mL/min/1.73m2 Critically low >=60 [facility] Comment on above: Performed By: #### Oliverio SIMS CA #### [facility] [address] [address] [address] Zuly Medina Covid-19 PCR (CVDTBH)on 12-06 SARS-CoV-2 (COVID-19) RNA MARY+probe Ql (Unsp spec) Not detected Normal NOT DETECTED [facility] Comment on above: Result Comment: This test is not yet approved or cleared by the [place] FDA. When there are no FDA-approved or cleared tests available, and other criteria are met, FDA can make tests available under an emergency access mechanism called an Emergency Use Authorization (EUA). The EUA for this test is supported by the [place] of Health and Human Service's (HHS's) declaration [...] #### C VDTBH #### [facility] [address] [place] [address] Dr. Zuly Medina T4, T3U, FTI LABCORPon 11-15 Free Thyroxine Index 2.7 Normal 1.2-4.9 [facility] Comment on above: Performed By: #### C VDTBH #### [facility] [address] [place] [address] Dr. Zuly Medina T3 Uptake 32 % Normal 24-39 [facility] Comment on above: Performed By: #### C VDTBH #### [facility] [address] [place] [address] Dr. Zuly Medina T4 [Mass/Vol] 8.5 ug/dL Normal 4.5-12.0 [facility] Comment on above: Performed By: #### C VDTBH #### [facility] [address] [place] [address] Dr. Zuly Medina VIT D 25-OH LABCORPon 2021 Vitamin D, 25-Hydroxy 114.0 ng/mL Critically high 30.0-100.0 [facility] Comment on above: Result Comment: Jenny min D deficiency has been defined by the [place] of Medicine and an Endocrine Society practice guideline as a level of serum 25-OH vitamin D less than 20 ng/mL (1,2). The Endocrine Society went on to further define vitamin D insufficiency as a level between 21 and 29 ng/mL (2). 1. IOM ([place] of Medicine). 2010. Dietary reference intakes for calcium and D. Steve [place]: The National Academies Press. 2. Anel MF, Chandrika [place], Ronaldo MCCALLUM, et al. Evaluation, treatment, and prevention of vitamin D deficiency: an Endocrine Society clinical practice guideline. JCEM. 2010; 96(7):1911-30. Performed By: #### V ITADLC #### [facility] [address] [place] [address] Dr. Zuly Medina CBC AUTO DIFFon 11-14-2021 BASO # 0.0 103/ul Normal 0.0-0.1 [facility] Comment on above: Performed By: #### Oliverio SIMS CA #### [facility] [address] [address] [address] Zuly Medina Basophils/100 WBC (Bld) 0.4 % Normal 0.2-2.0 [facility] Comment on above: Performed By: #### Oliverio SIMS CA #### [facility] [address] [address] [address] Zuly Medina EO # 0.3 103/ul Normal 0.0-0.7 [facility] Comment on above: Performed By: #### Oliverio SIMS CA #### [facility] [address] [address] [address] Zuly Medina Eosinophils/100 WBC (Bld) 4.1 % Normal 0.9-7.0 [facility] Comment on above: Performed By: #### Oliverio SIMS CA #### [facility] [address] [address] [address] Zuly Medina Erythrocyte distribution width (RBC) [Ratio] 14.1 % Normal 11.0-15.0 [facility] Comment on above: Performed By: #### CHIDI MCDANIEL #### [facility] [address] [place] [address] Dr. Zuly Medina Hematocrit (Bld) [Volume fraction] 36.0 % Normal 36.0-48.0 [facility] Comment on above: Performed By: #### CHIDI MCDANIEL #### [facility] [address] [place] [address] Dr. Zuly Medina Hemoglobin (Bld) [Mass/Vol] 11.6 g/dL Critically low 12.0-16.0 [facility] Comment on above: Performed By: #### CHIDI MCDANIEL #### [facility] [address] [place] [address] Dr. Zuly Medina IG # 0.01 10e3/ul Normal 0.00-0.03 [facility] Comment on above: Performed By: #### CHIDI MCDANIEL #### [facility] [address] [place] [address] Dr. Zuly Medina IG % 0.1 % Normal 0.0-0.5 [facility] Comment on above: Performed By: #### CHIDI MCDANIEL #### [facility] [address] [place] [address] Dr. Zuly Medina LYMPH # 1.3 103/ul Normal 1.2-3.8 [facility] Comment on above: Performed By: #### CHIDI MCDANIEL #### [facility] [address] [place] [address] Dr. Zuly Medina Lymphocytes/100 WBC (Bld) 19.3 % Critically low 20.5-60.0 [facility] Comment on above: Performed By: #### CHIDI MCDANIEL #### [facility] [address] [place] [address] Dr. Zuly Medina MANUAL DIFF REQ NO Normal [facility] Comment on above: Performed By: #### CHIDI MCDANIEL #### [facility] [address] [place] [address] Dr. Zuly Medina MCH (RBC) [Entitic mass] 31.4 pg Normal 26.7-34.0 [facility] Comment on above: Performed By: #### CHIDI MCDANIEL #### [facility] [address] [place] [address] Dr. Zuly Medina MCHC (RBC) [Mass/Vol] 32.2 g/dL Normal 29.9-35.2 [facility] Comment on above: Performed By: #### CHIDI MCDANIEL #### [facility] [address] [place] [address] Dr. Zuly Medina MCV (RBC) [Entitic vol] 97.6 fL Normal 81.0-99.0 [facility] Comment on above: Performed By: #### CHIDI MCDANIEL #### [facility] [address] [place] [address] Dr. Zuly Medina MONO # 0.8 103/ul Normal 0.3-0.8 [facility] Comment on above: Performed By: #### CHIDI MCDANIEL #### [facility] [address] [place] [address] Dr. Zuly Medina Monocytes/100 WBC (Bld) 11.8 % Normal 1.7-12.0 [facility] Comment on above: Performed By: #### CHIDI MCDANIEL #### [facility] [address] [place] [address] Dr. Zuly Medina NEUT # 4.4 103/ul Normal 1.4-6.5 [facility] Comment on above: Performed By: #### CHIDI MCDANIEL #### [facility] [address] [place] [address] Dr. Zuly Medina Neutrophils/100 WBC (Bld) 64.3 % Normal 43.0-75.0 [facility] Comment on above: Performed By: #### CHIDI MCDANIEL #### [facility] [address] [place] [address] Dr. Zuly Medina Platelet mean volume (Bld) [Entitic vol] 10.1 fL Normal 9.5-13.5 [facility] Comment on above: Performed By: #### CHIDI MCDANIEL #### [facility] [address] [address] [address] Zuly Medina PLT 311 103/ul Normal 150-450 [facility] Comment on above: Performed By: #### CHIDI MCDANIEL #### [facility] [address] [address] [address] Zuly Medina RBC 3.69 106/ul Critically low 4.20-5.40 [facility] Comment on above: Performed By: #### CHIDI MCDANIEL #### [facility] [address] [address] [address] Zuly Medina WBC 6.9 103/ul Normal 4.0-11.0 [facility] Comment on above: Performed By: #### CHIDI MCDANIEL #### [facility] [address] [place] [address] Dr. Zuly Medina GLYCOHEMOGLOBIN A1Con 2021 ADA RECOMMENDATION SEE BELOW Normal [facility] Comment on above: Result Comment: ADA RECOMMENDED LIMIT 4.0 - 6.0 ADA THERAPEUTIC TARGET < 7.0 ACTION SUGGESTED > 7.0 Performed By: #### A 1C #### [facility] [address] [address] [address] Zuly Medina Glucose [Mass/Vol] 103 mg/dL Normal [facility] Comment on above: Performed By: #### A 1C #### [facility] [address] [place] [address] Dr. Zuly Medina HbA1c (Bld) [Mass fraction] 5.2 % Normal 4.5-6.2 [facility] Comment on above: Performed By: #### A 1C #### [facility] [address] [place] [address] Dr. Zuly Medina IRONon 11-14-2021 Iron [Mass/Vol] 60.0 ug/dL Normal 50.0-170.0 [facility] Comment on above: Performed By: #### C VDTBH #### [facility] [address] [address] [address] Zuly Medina LIPID PROFILEon 11-14-2021 CHOL-HDL RATIO NORM SEE BELOW Normal [facility] Comment on above: Result Comment: 3.3 - 4.4 LOW RISK 4.4 - 7.1 AVERAGE RISK 7.1 - 11.0 MODERATE RISK >11.0 HIGH RISK Performed By: #### CHIDI MCDANIEL #### [facility] [address] [address] [address] Zuly Medina Cholesterol [Mass/Vol] 145 mg/dL Normal <=200 [facility] Comment on above: Performed By: #### CHIDI MCDANIEL #### [facility] [address] [address] [address] Zuly Medina Cholesterol in HDL [Mass/Vol] 65 mg/dL Critically high 40-60 [facility] Comment on above: Performed By: #### CHIDI MCDANIEL #### [facility] [address] [address] [address] Zuly Medina Cholesterol in LDL [Mass/Vol] 72.2 mg/dL Normal [facility] Comment on above: Performed By: #### CHIDI MCDANIEL #### [facility] [address] [address] [address] Zuly Medina Cholesterol.total/Ch olesterol in HDL [Mass ratio] 2.2 {ratio} Normal [facility] Comment on above: Performed By: #### CHIDI MCDANIEL #### [facility] [address] [address] [address] Zuly Medina HDL NORMAL > or = 60 mg/dl - LO W CARDIOVASCULAR RISK <40 mg/dl - HIGH CARDIOVASCULAR RISK Normal [facility] Comment on above: Performed By: #### Oliverio SIMS, [place] #### [facility] [address] [address] [address] Zuly Medina LDL CALC NORMAL SEE BELOW Normal [facility] Comment on above: Result Comment: <100 mg/dl OPTIMAL 100 - 129 mg/dl NEAR OR ABOVE OPTIMAL 130 - 159 mg/dl BORDERLINE HIGH 160 - 189 mg/dl HIGH >190 mg/dl VERY HIGH Performed By: #### CHIDI MCDANIEL #### [facility] [address] [address] [address] Zuly Medina Triglyceride [Mass/Vol] 39 mg/dL Normal <=150 [facility] Comment on above: Performed By: #### CHIDI MCDANIEL #### [facility] [address] [place] [address] Dr. Zuly Medina VLDL CALC 7.8 mg/dL Normal [facility] Comment on above: Performed By: #### CHIDI MCDANIEL #### [facility] [address] [place] [address] Dr. Zuly Medina PROF 14(COMP METB)on 022 Albumin [Mass/Vol] 3.8 g/dL Normal 3.4-5.0 [facility] Comment on above: Performed By: #### CHIDI MCDANIEL #### [facility] [address] [place] [address] Dr. Zuly Medina Albumin/Globulin [Mass ratio] 1.4 {ratio} Normal [facility] Comment on above: Performed By: #### CHIDI MCDANIEL #### [facility] [address] [place] [address] Dr. Zuly Medina ALP [Catalytic activity/Vol] 41 U/L Critically low 46-116 [facility] Comment on above: Performed By: #### CHIDI MCDANIEL #### [facility] [address] [place] [address] Dr. Zuly Medina ALT [Catalytic activity/Vol] 20 U/L Normal 14-59 [facility] Comment on above: Performed By: #### CHIDI MCDANIEL #### [facility] [address] [place] [address] Dr. Zuly Medina Anion gap [Moles/Vol] 8.2 mmol/L Normal [facility] Comment on above: Performed By: #### CHIDI MCDANIEL #### [facility] [address] [place] [address] Dr. Zuly Medina AST [Catalytic activity/Vol] 25 U/L Normal 15-37 [facility] Comment on above: Performed By: #### CHIDI MCDANIEL #### [facility] [address] [place] [address] Dr. Zuly Medina Bilirubin [Mass/Vol] 0.4 mg/dL Normal 0.2-1.0 [facility] Comment on above: Performed By: #### CHIDI MCDANIEL #### [facility] [address] [place] [address] Dr. Zuly Medina Calcium [Mass/Vol] 10.1 mg/dL Normal 8.5-10.1 [facility] Comment on above: Performed By: #### CHIDI MCDANIEL #### [facility] [address] [address] [address] Zuly Medina Chloride [Moles/Vol] 104 mmol/L Normal 98-107 [facility] Comment on above: Performed By: #### CHIDI MCDANIEL #### [facility] [address] [place] [address] Dr. Zuly Medina CO2 [Moles/Vol] 31.6 mmol/L Normal 21.0-32.0 [facility] Comment on above: Performed By: #### CHIDI MCDANIEL #### [facility] [address] [place] [address] Dr. Zuly Medina Creatinine [Mass/Vol] 1.44 mg/dL Critically high 0.55-1.02 [facility] Comment on above: Performed By: #### CHIDI MCDANIEL #### [facility] [address] [place] [address] Dr. Zuly Medina EGFR-AF VENEZUELAN 43 mL/min/1.73m2 Critically low >=60 [facility] Comment on above: Performed By: #### CHIDI MCDANIEL #### [facility] [address] [place] [address] Dr. Zuly Medina EGFR-NON AF VENEZUELAN 36 mL/min/1.73m2 Critically low >=60 [facility] Comment on above: Performed By: #### CHIDI MCDANIEL #### [facility] [address] [place] [address] Dr. Zuly Medina Globulin (S) [Mass/Vol] 2.8 g/dL Normal [facility] Comment on above: Performed By: #### CHIDI MCDANIEL #### [facility] [address] [address] [address] Zuly Medina Glucose [Mass/Vol] 100 mg/dL Normal 74-106 [facility] Comment on above: Performed By: #### CHIDI MCDANIEL #### [facility] [address] [place] [address] Dr. Zuly Medina Potassium [Moles/Vol] 3.8 mmol/L Normal 3.5-5.1 [facility] Comment on above: Performed By: #### CHIDI MCDANIEL #### [facility] [address] [place] [address] Dr. Zuly Medina Protein [Mass/Vol] 6.6 g/dL Normal 6.4-8.2 [facility] Comment on above: Performed By: #### Oliverio SIMS [place] #### [facility] [address] [place] [address] Dr. Zuly Medina Sodium [Moles/Vol] 140 mmol/L Normal 136-145 [facility] Comment on above: Performed By: #### CHIDI MCDANIEL #### [facility] [address] [address] [address] Zuly Medina Urea nitrogen [Mass/Vol] 28.0 mg/dL Critically high 7.0-18.0 [facility] Comment on above: Performed By: #### CHIDI MCDANIEL #### [facility] [address] [place] [address] Dr. Zuly Medina Urea nitrogen/Creatinine [Mass ratio] 19.4 mg/mg Normal [facility] Comment on above: Performed By: #### Oliverio SIMS [place] #### [facility] [address] [place] [address] Dr. Zuly Medina TSHon 11-14-2021 TSH 1.676 uIU/mL Normal 0.358-3.740 [facility] Comment on above: Performed By: #### Oliverio SIMS [place] #### [facility] [address] [place] [address] Dr. Zuly Medina [facility]05 SARS-CoV-2 (COVID-19) RNA MARY+probe Ql (Unsp spec) Not detected Normal NOT DETECTED [facility] Comment on above: Result Comment: When [...] for this test is supported by the Corporate Strategy Intern of Health and Human Service's declaration that [...] used). Performed By: #### C VDTBH #### [facility] [address] [place] [address] Dr. Zuly Medina CREATININEon 09-18-2021 Creatinine [Mass/Vol] 1.33 mg/dL Critically high 0.55-1.02 [facility] Comment on above: Performed By: #### CHIDI MCDANIEL #### [facility] [address] [place] [address] Dr. Zuly Medina EGFR-AF VENEZUELAN 48 mL/min/1.73m2 Critically low >=60 [facility] Comment on above: Performed By: #### CHIDI MCDANIEL #### [facility] [address] [place] [address] Dr. Zuly Medina EGFR-NON AF VENEZUELAN 39 mL/min/1.73m2 Critically low >=60 [facility] Comment on above: Performed By: #### CHIDI MCDANIEL #### [facility] [address] [place] [address] Dr. Zuly Medina MRI BRAIN WO W [...] 2021-09-18 16:23 Normal [facility] Covid-19 PCR (CVDTB)on 08-05 SARS-CoV-2 (COVID-19) RNA MARY+probe Ql (Unsp spec) Not detected Normal NOT DETECTED [facility] Comment on above: Result Comment: This test is not yet approved or cleared by the [place] FDA. When there are no FDA-approved or cleared tests available, and other criteria are met, FDA can make tests available under an emergency access mechanism called an Emergency Use Authorization (EUA). The EUA for this test is supported by the [place] of Health and Human Service's (HHS's) declaration [...] #### C VDTB #### [facility] [address] [place] [address] Dr. Zuly Medina SYMPTOMATIC COVID-19 ANTIGEN on 08-23-2021 EUA Statement SEE BELOW Normal [facility] Comment on above: Result Comment: This test [...] #### C VDTBH #### [facility] [address] [place] [address] Dr. Zuly Medina SARS-CoV-2 (COVID-19) RNA MARY+probe Ql (Unsp spec) Negative Normal NEGATIVE [facility] Comment on above: Performed By: #### C VDTBH #### [facility] [address] [place], [place] [id number] Dr. Zuly Medina Q - Diptheria/Tetanus Abon 0 08-09-2021 DIPHTHERIA ANTITOXOID 0.25 IU/mL Normal [facility] [employer] Comment on above: Order Comment: [facility] performed at: [employer], [facility], [address], [place], [place], , Plug Shaper Hand: Sahil Dyson M.D.,PhD [facility] Date/Time: [facility] [...] analytical performance characteristics have been determined by [facility] [place]. It has not been cleared or approved by the U.S. Food and Drug Administration. This assay has been validated pursuant to the CLIA regulations and is used for clinical purposes. Performed By: #### 2 4729W, 39362M, 97806, 99455O, 64290W, 02492J #### [facility] [address] [place] [address] TETANUS ANTITOXOID 4.67 IU/mL Normal [facility] [place] [facility] [employer] Comment on above: Order Comment: [facility] performed at: [facility], CN[facility], [address], [place], [place], , Plug Shaper Hand: Sahil Dyson M.D.,PhD [facility] Date/Time: [facility] [...] analytical performance characteristics have been determined by [facility] [place]. It has not been cleared or approved by the U.S. Food and Drug Administration. This assay has been validated pursuant to the CLIA regulations and is used for clinical purposes. Performed By: #### 2 4729W, 28530B, 71675, 79320U, 16265S, 50599O #### [facility] [address] [place] [address] Q - IGA,SERUMon 08-09-2021 IMMUNOGLOBULIN A 125 mg/dL Normal 70-320 [facility] Specialist Comment on above: Order Comment: [facility] performed at: [employer], CN[facility], [address] [facility], [address] [place] [address], [address] [place] [address], Plug Shaper Hand: Thony Haley MD [facility] Date/Time: [facility] Results Received Date/Time: [facility] Reported Date/Time: Performed By: #### 2 4729W, 77107G, 77833, 29096W, 94279Y, 15694L #### [facility] [address] [place] [address] Q - IGE,SERUMon 08-09-2021 IMMUNOGLOBULIN E 44 kU/L Normal [facility] Specialist Comment on above: Order Comment: [facility] performed at: [employer], [facility], [address] [facility], [address] [place] [address], [address] [place] [address], Plug Shaper Hand: Thony Haley MD [facility] Date/Time: [facility] Received Date/Time: [facility] Reported Date/Time: Performed By: #### 2 4729W, 97856X, 88536, 93376K, 39399K, 72779A #### [facility] [address] [place] [address] Q - IGG,SERUMon 08-09-2021 IMMUNOGLOBULIN G 895 mg/dL Normal 600-1540 [facility] Machine [employer] Se[employer] Comment on above: Order Comment: [facility] performed at: [employer], [facility], [address] , [address] [place] [address], [address] [place] [address], Plug Shaper Hand: Thony Haley MD [facility] Date/Time: [facility] Results Received Date/Time: [facility] Reported Date/Time: Performed By: #### 2 4729W, 77054H, 38014, 86515W, 92971I, 48494M #### [facility] [address] [place] [address] Q - IGM,SERUMon 08-09-2021 IMMUNOGLOBULIN M 158 mg/dL Normal 50-300 [facility] Specialist Comment on above: Order Comment: [facility] performed at: Q, CN[facility], [address], [address] [place], [address], Plug Shaper Hand: Thony Haley MD [facility] Date/Time: [facility] Results Received Date/Time: [facility] Reported Date/Time: Performed By: #### 2 4729W, 61659Y, 09744, 95703T, 04498W, 31088Z #### [facility] [address] [place] [address] Q - Strep pneumo Ab 23 serot ypeson 08-09-2021 SEROTYPE 1 (1) 9.5 Normal [facility] Comment on above: Order Comment: [facility] performed at: [employer], [facility],, [address] [place], [place], , Plug Shaper Hand: Osiris Galdamez MD,PhD,BHANU [facility] Date/Time: [facility] Results Received Date/Time: [facility] Reported Date/Time: Performed By: #### 2 4729W, 66063K, 01589, 81900W, 68271K, 55827T #### [facility] [address] [place] [address] SEROTYPE 12 (12F) 1.0 Normal [facility] Comment on above: Order Comment: [facility] performed at: [employer], [facility],, [address] [place], [place], , Plug Shaper Hand: Osiris Galdamez MD,PhD,BHANU [facility] Date/Time: [facility] Results Received Date/Time: [facility] Reported Date/Time: Performed By: #### 2 4729W, 14045K, 57666, 27016W, 89591Z, 45032C #### [facility] [address] [place] [address] SEROTYPE 14 (14) 3.3 Normal [facility] Comment on above: Order Comment: [facility] performed at: [employer], [facility],, [facility] [place], , Plug Shaper Hand: Osiris Galdamez MD,PhD,BHANU [facility] Date/Time: [facility] Results Received Date/Time: [facility] Reported Date/Time: Performed By: #### 2 4729W, 55817U, 73280, 78198L, 53987B, 19277L #### [facility] [address] [place] [address] SEROTYPE 17 (17F) 1.2 Normal [facility] Comment on above: Order Comment: [facility] performed at: [employer], [employer] [facility],, [facility] [place], [place], , Plug Shaper Hand: Osiris Galdamez MD,PhD,BHANU [facility] Date/Time: [facility] Results Received Date/Time: [facility] Reported Date/Time: Performed By: #### 2 4729W, 28368W, 09153, 51860F, 66226Q, 81525J #### [facility] [address] [place] [address] SEROTYPE 19 (19F) 2.8 [facility] Comment on above: Order Comment: [facility] performed at: [employer], [employer] [facility],, [address] [place], [place], , Plug Shaper Hand: Osiris Galdamez MD,PhD,BHANU [facility] Date/Time: [facility] Results Received Date/Time: [facility] Reported Date/Time: Performed By: #### 2 4729W, 74056G, 97343, 08060J, 23440Q, 21615V #### [facility] [address] [place] [address] SEROTYPE 2 (2) 7.2 Normal [facility] Specialist Comment on above: Order Comment: [facility] performed at: [employer], [employer] [facility],, [address] [place], [place], , Plug Shaper Hand: Osiris Galdamez MD,PhD,BHANU [facility] Date/Time: [facility] Results Received Date/Time: [facility] Reported Date/Time: Performed By: #### 2 4729W, 34841G, 83197, 83539W, 14303S, 01846M #### [facility] [address] [place] [address] SEROTYPE 20 (20) 3.4 Normal [facility] Specialist Comment on above: Order Comment: [facility] performed at: [employer], [employer] [facility],, [address] [place], [place] [address], , Plug Shaper Hand: Osiris Galdamez MD,PhD,BHANU [facility] Date/Time: [facility] Results Received Date/Time: [facility] Reported Date/Time: Performed By: #### 2 4729W, 42232M, 65713, 92020N, 21883C, 11132G #### [facility] [address] [place] [address] SEROTYPE 22 (22F) 5.9 Normal [facility] Comment on above: Order Comment: [facility] performed at: [employer], [facility],, [address] [place], [place], , Plug Shaper Hand: Osiris Galdamez MD,PhD,BHANU [facility] Date/Time: [facility] Results Received Date/Time: [facility] Reported Date/Time: Performed By: #### 2 4729W, 43312N, 71238, 55357L, 34149S, 29377I #### [facility] [address] [place] [address] SEROTYPE 23 (23F) 5.2 Normal [facility] Comment on above: Order Comment: [facility] performed at: [employer], [facility],, [address] [place], [place], , Plug Shaper Hand: Osiris Galdamez MD,PhD,BHANU [facility] Date/Time: [facility] Results Received Date/Time: [facility] Reported Date/Time: Performed By: #### 2 4729W, 69998F, 99831, 23986M, 42261T, 81065W #### [facility] [address] [place] [address] SEROTYPE 26 (6B) 18.8 Normal [facility] Comment on above: Order Comment: [facility] performed at: [employer], [facility],, [address] [place], [place] [address] [place], , Plug Shaper Hand: Osiris Galdamez MD,PhD,BHANU [facility] Date/Time: [facility] Results Received Date/Time: [facility] Reported Date/Time: Performed By: #### 2 4729W, 86713X, 66036, 60141M, 82521C, 48334T #### [facility] [address] [place] [address] SEROTYPE 3 (3) 1.3 Normal [facility] Machine Package Sealer Comment on above: Order Comment: [facility] performed at: [facility], [facility],, [address] [place], [place], , Plug Shaper Hand: Osiris Galdamez MD,PhD,BHANU [facility] Date/Time: [facility] Results Received Date/Time: [facility] Reported Date/Time: Performed By: #### 2 4729W, 06232B, 83368, 64134U, 09554S, 56313I #### [facility] [address] [place] [address] SEROTYPE 34 (10A) 0.9 Normal [facility] Comment on above: Order Comment: [facility] performed at: [employer], [facility],, [address] [place] [address], , Plug Shaper Hand: Osiris Galdamez MD,PhD,BHANU [facility] Date/Time: [facility] Results Received Date/Time: [facility] Reported Date/Time: Performed By: #### 2 4729W, 78400S, 35532, 14385B, 88737C, 15427G #### [facility] [address] [place] [address] SEROTYPE 4 (4) <0.3 [facility] Specialist Comment on above: Order Comment: [facility] performed at: [employer], [facility],, [address] [place] [address], , Plug Shaper Hand: Osiris Galdamez MD,PhD,BHANU [facility] Date/Time: [facility] Results Received Date/Time: [facility] Reported Date/Time: Performed By: #### 2 4729W, 93779C, 79731, 15060I, 71721C, 21317N #### [facility] [address] [place] [address] SEROTYPE 43 (11A) 1.1 [facility] Specialist Comment on above: Order Comment: [facility] performed at: [facility], [facility],, [address] [place] [address], , Plug Shaper Hand: Osiris Galdamez MD,PhD,BHANU [facility] Date/Time: [facility] Results Received Date/Time: [facility] Reported Date/Time: Performed By: #### 2 4729W, 77525I, 06224, 53940G, 85615M, 37242P #### [facility] [address] [place] [address] SEROTYPE 5 (5) 2.3 Normal [facility] Specialist Comment on above: Order Comment: [facility] performed at: [employer], [facility],, [address] [place] [address], , Plug Shaper Hand: Osiris Galdamez MD,PhD,BHANU [facility] Date/Time: [facility] Results Received Date/Time: [facility] Reported Date/Time: Performed By: #### 2 4729W, 44824S, 96274, 65090K, 10558W, 83300B #### [facility] [address] [place] [address] SEROTYPE 51 (7F) 8.4 [facility] Specialist Comment on above: Order Comment: [facility] performed at: [employer], [facility],, [address] [place] [address], , Plug Shaper Hand: Osiris Galdamez MD,PhD,BHANU [facility] Date/Time: [facility] Results Received Date/Time: [facility] Reported Date/Time: Performed By: #### 2 4729W, 74081F, 25120, 95768K, 27619M, 78247M #### [facility] Default [address] [place] [address] SEROTYPE 54 (15B) 2.3 Normal [facility] Specialist Comment on above: Order Comment: [facility] performed at: [facility], [facility],, [address] [place], [place], , Plug Shaper Hand: Osiris Galdamez MD,PhD,BHANU [facility] Date/Time: [facility] Results Received Date/Time: [facility] Reported Date/Time: Performed By: #### 2 4729W, 05753M, 24869, 83647Z, 79911A, 07663X #### [facility] Default [address] [place] [address] SEROTYPE 56 (18C) 18.7 [facility] Comment on above: Order Comment: [facility] performed at: [employer], [employer] [facility],, [address], [place], [place], , Plug Shaper Hand: Osiris Galdamez MD,PhD,BHANU [facility] Date/Time: [facility] Results Received Date/Time: [facility] Reported Date/Time: Performed By: #### 2 4729W, 91948R, 00965, 70855O, 80448L, 91573G #### [facility] [address] [place] [address] SEROTYPE 57 (19A) 15.6 [facility] Comment on above: Order Comment: [facility] performed at: [employer], [employer] [facility],, [address], [place], [place], , Plug Shaper Hand: Osiris Galdamez MD,PhD,BHANU [facility] Date/Time: [facility] Results Received Date/Time: [facility] Reported Date/Time: Performed By: #### 2 4729W, 64411L, 16402, 88955A, 88116X, 24257W #### [facility] Default [address] [place] [address] SEROTYPE 68 (9V) 2.1 Normal [facility] Comment on above: Order Comment: [facility] performed at: [employer], [facility],, [address] [place] [address], , Plug Shaper Hand: Osiris Galdamez MD,PhD,BHANU [facility] Date/Time: [id number] [facility] Results Received Date/Time: [facility] Reported Date/Time: Performed By: #### 2 4729W, 12012V, 36531, 14152N, 95107C, 63318A #### [facility] [address] [place] [address] SEROTYPE 70 (33F) 28.9 Normal [facility] Comment on above: Order Comment: [facility] performed at: [employer], [facility],, [address] [place] [address], , Plug Shaper Hand: Osiris Galdamez MD,PhD,BHANU [facility] Date/Time: [facility] [...] serotype-specific titers may have less robust responses. [facility] uses a multi-analyte immunodetection (MAID) method. The method employs the [employer] flow cytometric system which measures multiple analytes [...] analytical performance characteristics have been determined by [facility]. It has not been cleared or approved by FDA. This assay has been validated pursuant to the CLIA regulations and used for clinical purposes. For additional information, please refer to http://education.[employer].com/faq/[email or web address] (This link is being provided for informational/ educational purposes only.) Performed By: #### 2 4729W, 51914Y, 12645, 25674P, 77124J, 18403T #### [facility] [address] [place] [address] SEROTYPE 8 (8) 14.6 Normal [facility] Machine Package Sealer Comment on above: Order Comment: [facility] performed at: [employer],, [address] [place] [address], , Plug Shaper Hand: Osiris Galdamez MD,PhD,BHANU [facility] Date/Time: [facility] Results Received Date/Time: [facility] Reported Date/Time: Performed By: #### 2 4729W, 32412P, 13248, 27286M, 23576K, 57429U #### [facility] Default [address] [place] [address] SEROTYPE 9 (9N) 1.0 Normal [facility] Machine Package Sealer Comment on above: Order Comment: [facility] performed at: [employer], [facility],, [address] [place] [address], , Plug Shaper Hand: Osiris Galdamez MD,PhD,BHANU [facility] Date/Time: [id number] [facility] Results Received Date/Time: [facility] Reported Date/Time: Performed By: #### 2 4729W, 43407Q, 34048, 38272S, 57910F, 38785O #### [facility] [address] [place] [address] CT SINUSES WO CONon 08-06-[address] [...] by: WEI GARCIA Date: 2021-08-05 08:48 Normal [facility] MG MAMM DX 3D LT CADon 08-05 MG MAMM DX 3D LT CAD Patient: ADRIANNA BUITRAGO Exam Date: 08/05/2021 : 1950 Gender:F Ordering : DR JENNY BURRIS . Admission #: [id number] Family : Order #: [id number] CLICK HERE TO VIEW EXAM RADIOLOGY REPORT [...] age 59. LOCATION: [facility] BREAST COMPOSITION: Scattered areas fibroglandular density. [...] at 09:25 Normal [facility] US BREAST LEFT LIMITEDon US BREAST LEFT LIMITED Patient: ADRIANNA BUITRAGODexter Exam Date: 08/05/2021 : 1950 Gender:F Ordering : DR JENNY BURRIS . Admission #: [id number] Family : Order #: [id number] CLICK HERE TO VIEW EXAM RADIOLOGY REPORT [...] age 59. LOCATION: [facility] BREAST COMPOSITION: Scattered areas fibroglandular density. [...] at 09:25 Normal [facility] Vital Signs Date Time Vital Sign Value Performing Clinician Evelyni von 11-17-2024 13:13-0400 Body height 160 cm Renny COREYM Work Phone: [facility] 11-17-2024 13:13-0400 Body mass index (BMI) [Ratio] 22.85 kg/m2 Renny Orlando DPM Work Phone: [facility] 11-17-2024 13:13-0400 Body weight 58.51 kg Renny Orlando DPM Work Phone: [facility] 11-17-2024 13:13-0400 Respiratory rate 16 /min Renny Orlando DPM Work Phone: [facility] 11-03-2024 09:38-0400 Body height 160 cm Renny Orlando DPM Work Phone: [facility] 11-03-2024 09:38-0400 Body mass index (BMI) [Ratio] 22.85 kg/m2 Renny Brown DPM Work Phone: [facility] 11-03-2024 09:38-0400 Body weight 58.51 kg Renny Brown DPM Work Phone: [facility] 11-03-2024 09:38-0400 Respiratory rate 16 /min Renny Brown DPM Work Phone: [facility] 10-20-2024 11:45-0400 Body height 160 cm Renny Brown DPM Work Phone: [facility] 10-20-2024 11:45-0400 Body mass index (BMI) [Ratio] 22.85 kg/m2 Renny Brown DPM Work Phone: [facility] 10-20-2024 11:45-0400 Body weight 58.51 kg Renny Brown DPM Work Phone: [facility] 10-20-2024 11:45-0400 Respiratory rate 18 /min Renny Brown DPM Work Phone: [facility] 06-16-2024 08:48-0400 Body height 160 cm Renny Brown DPM Work Phone: [facility] 06-16-2024 08:48-0400 Body mass index (BMI) [Ratio] 22.85 kg/m2 Renny Brown DPM Work Phone: [facility] 06-16-2024 08:48-0400 Body weight 58.51 kg Renny Brown DPM Work Phone: [facility] 06-16-2024 08:48-0400 Respiratory rate 18 /min Renny Brown DPM Work Phone: [facility] 02-11-2024 08:33-0500 Body height 160 cm Renny Brown DPM Work Phone: [facility] 02-11-2024 08:33-0500 Body mass index (BMI) [Ratio] 22.85 kg/m2 Renny Brown DPM Work Phone: [facility] 02-11-2024 08:33-0500 Body weight 58.51 kg Renny Orlando DPM Work Phone: [facility] 02-11-2024 08:33-0500 Diastolic blood pressure 80 mm[Hg] Renny Orlando DPM Work Phone: [facility] 02-11-2024 08:33-0500 Heart rate 81 /min Renny Brown DPM Work Phone: [facility] 02-11-2024 08:33-0500 Systolic blood pressure 126 mm[Hg] Renny Brown DPM Work Phone: [facility] 01-28-2024 08:34-0400 Body height 160 cm Renny Orlando DPM Work Phone: [facility] 01-28-2024 08:34-0400 Body mass index (BMI) [Ratio] 22.85 kg/m2 Renny Darion DPM Work Phone: [facility] 01-28-2024 08:34-0400 Body weight 58.51 kg Renny Orlando DPM Work Phone: [facility] 01-28-2024 08:34-0400 Diastolic blood pressure 80 mm[Hg] Renny Orlando DPM Work Phone: [facility] 01-28-2024 08:34-0400 Heart rate 81 /min Renny Orlando DPM Work Phone: [facility] 01-28-2024 08:34-0400 Systolic blood pressure 128 mm[Hg] Renny Brown DPM Work Phone: [facility] 01-14-2024 08:38-0400 Body height 160 cm Renny Brown DPM Work Phone: [facility] 01-14-2024 08:38-0400 Body mass index (BMI) [Ratio] 22.85 kg/m2 Renny Brown DPM Work Phone: [facility] 01-14-2024 08:38-0400 Body weight 58.51 kg Renny Orlando DPM Work Phone: [facility] 01-14-2024 08:38-0400 Respiratory rate 18 /min Renny Brown DPM Work Phone: [facility] 12-31-2023 09:01-0400 Body height 160 cm Renny Orlando DPM Work Phone: [facility] 12-31-2023 09:01-0400 Body mass index (BMI) [Ratio] 22.85 kg/m2 Renny Brown DPM Work Phone: [facility] 12-31-2023 09:01-0400 Body weight 58.51 kg Renny Brown DPM Work Phone: [facility] 12-31-2023 09:01-0400 Diastolic blood pressure 75 mm[Hg] Renny Orlando DPM Work Phone: [facility] 12-31-2023 09:01-0400 Heart rate 75 /min Renny Brown DPM Work Phone: [facility] 12-31-2023 09:01-0400 Respiratory rate 18 /min Renny Darion DPM Work Phone: [facility] 12-31-2023 09:01-0400 Systolic blood pressure 126 mm[Hg] Renny Orlando DPM Work Phone: [facility] 12-17-2023 08:41-0400 Body height 160 cm Renny Brown DPM Work Phone: [facility] 12-17-2023 08:41-0400 Body mass index (BMI) [Ratio] 22.85 kg/m2 Renny Brown DPM Work Phone: [facility] 12-17-2023 08:41-0400 Body weight 58.51 kg Renny Brown DPM Work Phone: [facility] 12-17-2023 08:41-0400 Diastolic blood pressure 74 mm[Hg] Renny Orlando DPM Work Phone: [facility] 12-17-2023 08:41-0400 Heart rate 82 /min Renny Orlando DPM Work Phone: [facility] 12-17-2023 08:41-0400 Systolic blood pressure 125 mm[Hg] Renny Orlando DPM Work Phone: [facility] 12-15-2023 08:08-0400 Body height 160 cm Sandeep Pleitez CLOTH GRADER Work Phone: [facility] 12-15-2023 08:08-0400 Body mass index (BMI) [Ratio] 22.82 kg/m2 Sandeep Pleitez [employer]OTH GRADER Work Phone: [facility] 12-15-2023 08:08-0400 Body weight 58.42 kg Sandeep Pleitez CLOTH GRADER Work Phone: [facility] 12-15-2023 08:08-0400 Diastolic blood pressure 70 mm[Hg] Sandeep Condonoll CLOTH GRADER Work Phone: [facility] 12-15-2023 08:08-0400 Systolic blood pressure 118 mm[Hg] Sandeep Condonoll CLOTH GRADER Work Phone: [facility] 12-03-2023 09:18-0400 Body height 160 cm Renny Orlando DPM Work Phone: [facility] 12-03-2023 09:18-0400 Body mass index (BMI) [Ratio] 22.5 kg/m2 Renny Orlando DPM Work Phone: [facility] 12-03-2023 09:18-0400 Body weight 57.61 kg Renny Orlando DPM Work Phone: [facility] 12-03-2023 09:18-0400 Diastolic blood pressure 79 mm[Hg] Renny Orlando DPM Work Phone: [facility] 12-03-2023 09:18-0400 Heart rate 78 /min Renny Orlando DPM Work Phone: [facility] 12-03-2023 09:18-0400 Systolic blood pressure 128 mm[Hg] Renny Orlando DPM Work Phone: [facility] Healthcare Encounters Encounter Date Encounter Type Care Provider Facility Start: 11-17-2024 End: 11-17-2024 Bamboo flowsheet Renny Orlando DPM Work Phone: [facility] Start: 11-17-2024 End: 11-17-2024 Bamboo flowsheet Renny Orlando DPM Work Phone: [facility] Start: 11-17-2024 End: 11-17-2024 Office outpatient visit 15 minutes Renny Orlando DPM Work Phone: [facility] Comment on above: Tinea corporis (Prim tirera Dx); Verruca plantaris; Foot pain, right; Foot pain, left Start: 11-17-2024 End: 11-17-2024 ambulatory RENNY ORLANDO Not Available Start: 11-07-2024 End: 11-07-2024 ambulatory [facility] Start: 11-03-2024 End: 11-03-2024 Bamboo flowsheet Renny Orlando DPM Work Phone: [facility] Start: 11-03-2024 End: 11-03-2024 Bamboo flowsheet Renny Orlando DPM Work Phone: [facility] Start: 11-03-2024 End: 11-03-2024 Office outpatient visit 15 minutes Renny Orlando DPM Work Phone: [facility] Comment on above: Tinea corporis [...] Not Available Start: 04-29-2024 End: 04-29-2024 ambulatory [facility] Start: 04-07-2024 End: 04-07-2024 Bamboo flowsjaylon Faith [...] Bamboo flowsheet Renny Orlando DPM Work Phone: [facility] Start: 02-11-2024 End: 02-11-2024 Bamboo flowsheet Renny Frank Brown DPM Work Phone: [facility] Start: 02-11-2024 End: 02-11-2024 Patient encounter procedure Renny Frank Darion DPM Work Phone: [facility] Comment on above: Verruca plantaris (P rimary Dx); Foot pain, right; Foot pain, left Start: 02-11-2024 End: 02-11-2024 ambulatory RENNY ORLANDO Not Available Start: 01-28-2024 End: 01-28-2024 Bamboo flowsheet Renny Frank Brown DPM Work Phone: [facility] Start: 01-28-2024 End: 01-28-2024 Bamboo flowsheet Renny Frank Brown DPM Work Phone: [facility] Start: 01-28-2024 End: 01-28-2024 Patient encounter procedure Renny Orlando DPM Work Phone: [facility] Comment on above: Verruca plantaris (P rimary Dx); Foot pain, right; Foot pain, left Start: 01-28-2024 End: 01-28-2024 ambulatory RENNY ORLANDO Not Available Start: 01-14-2024 End: 01-14-2024 Bamboo flowsheet Renny Frank Brown DPM Work Phone: [facility] Start: 01-14-2024 End: 01-14-2024 Bamboo flowsheet Renny Frank Brown DPM Work Phone: [facility] Start: 01-14-2024 End: 01-14-2024 Patient encounter procedure Renny Frank Orlando DPM Work Phone: [facility] Comment on above: Verruca plantaris (P rimary Dx); Foot pain, right; Foot pain, left Start: 01-14-2024 End: 01-14-2024 ambulatory RENNY Frank DARION Not Available Start: 12-31-2023 End: 12-31-2023 Bamboo flowsheet Renny Frank Darion DPM Work Phone: [facility] Start: 12-31-2023 End: 12-31-2023 Bamboo flowsheet Renny Marie Darion DPM Work Phone: [facility] Start: 12-31-2023 End: 12-31-2023 Patient encounter procedure Renny Marie Darion DPM Work Phone: [facility] Comment on above: Verruca plantaris (P rimary Dx); Foot pain, right; Foot pain, left Start: 12-31-2023 End: 12-31-2023 ambulatory RENNY Frank DARION Not Available Start: 12-17-2023 End: 12-17-2023 Bamboo flowsheet Renny A Darion DPM Work Phone: [facility] Start: 12-17-2023 End: 12-17-2023 Bamboo flowsheet Renny Marie Darion DPM Work Phone: [facility] Start: 12-17-2023 End: 12-17-2023 Patient encounter procedure Renny Orlando DPM Work Phone: [facility] Comment on above: Verruca plantaris (P rimary Dx); Foot pain, right; Onychomycosis; Toe pain, bilateral; Xerosis cutis; Foot pain, left Start: 12-17-2023 End: 12-17-2023 ambulatory RENNY Frank DARION Not Available Start: 12-15-2023 End: 12-15-2023 Bamboo flowsheet Sandeep Pleitez CLOTH GRADER Work Phone: [facility] Start: 12-15-2023 End: 12-15-2023 Bamboo flowsheet Sandeep Pleitez CLOTH GRADER Work Phone: [facility] [address] Start: 12-15-2023 End: 12-15-2023 Office outpatient visit 15 minutes Sandeep Pleitez CLOTH GRADER Work Phone: [facility] [address] [facility] Comment on above: Migraine with aura [...] encounter procedure Renny Orlando DPM Work Phone: [facility] Comment on above: Verruca plantaris (P rimary Dx); Foot pain, right; Foot pain, left; Onychomycosis; Toe pain, bilateral; Xerosis cutis Start: 12-03-2023 End: 12-03-2023 ambulatory RENNY ORLANDO Not Available Start: 08-05-2023 End: 08-06-2023 ambulatory Issa VALE Facility:[id number] Start: 06-09-2023 End: 06-10-2023 ambulatory [...] [address] [place] [address] Renny Orlando DPM [address] [address] Verruca plantaris (Primary Dx); Foot pain, right; [...] EDT Office Visit [facility] [address] [address] Renny Orlando DPM [address] [address] Verruca plantaris (Primary Dx); Foot pain, right; Foot pain, left [facility] Comment on above: Verruca plantaris (P rimary Dx); Foot pain, right; Foot pain, left Start: 08-25-2024 End: 08-25-2024 Patient encounter procedure 08/25/2024 9:10 AM EDT Procedure Visit [facility] [address] [address] Renny Orlando DPM [address] [address] [facility] Start: 04-18-2024 End: 04-18-2024 Patient encounter procedure 04/18/2024 9:20 AM EST Office Visit [facility] [address] [place] [phone] Keila Faith MD [address] [place] [address] [facility] Start: 04-07-2024 End: 04-07-2024 Patient encounter procedure 04/07/2024 9:20 AM EST Office Visit [facility] [address] [facility] [address] [place] [address] Keila Faith MD [address] [facility] [address] [place] [address] Arrived [facility] Comment on above: [...] Office Visit [facility] [address] [phone] Renny Orlando DPM [address] [address] Verruca plantaris (Primary Dx); Foot pain, right; Foot pain, left [facility] Comment on above: Verruca plantaris (P rimary Dx); Foot pain, right; Foot pain, left Start: 12-31-2023 End: 12-31-2023 Patient encounter procedure 12/31/2023 9:10 AM EDT Office Visit [facility] [address] [phone] Renny Orlando DPM [address] [address] Verruca plantaris (Primary Dx); Foot pain, right; [...] procedure 12/14/2023 9:20 AM EDT [facility] [address] [facility] [address] [place] [address] Keila Faith MD [address] [address] [facility] Start: 12-06-2023 Influenza vaccination Influenza Vacc ine (#1) [facility] Start: 12-03-2023 End: 12-03-2023 Patient encounter procedure 12/03/2023 9:30 AM EDT Procedure Visit [facility] [address] [address] Renny Orlando DPM [address] [facility] 5 [place] [address] Verruca plantaris (Primary Dx); Foot pain, right; Foot pain, left; Onychomycosis; Toe pain, bilateral; Xerosis cutis [facility] Comment on above: Verruca plantaris (P rimary Dx); Foot pain, right; Foot pain, left; Onychomycosis; Toe pain, bilateral; Xerosis cutis Start: 05-14-2023 End: 05-14-2023 Patient encounter procedure 05/14/2023 8:40 AM EST Office Visit [facility] [address] [address] Renny Orlando, DPSobia [address] [address] [facility] Start: 12-05-2022 Influenza vaccination Influenza Vacc ine (#1) [facility] Start: 10-27-2018 Pneumococcal Vaccine : 65+ Years (2 - PPSV23 or PCV20) Pneumococcal Vaccine: 65+ Years (2 - PPSV23 or PCV20) [facility] Start: 10-27-2018 Pneumococcal Vaccine : 65+ Years (2 of 2 - PPSV23 or PCV20) Pneumococcal Vaccine: 65+ Years (2 of 2 - PPSV23 or PCV20) [facility] Start: 10-27-2018 Pneumococcal Vaccine : 65+ Years (2 of 2 - PPSV23) Pneumococcal Vaccine: 65+ Years (2 of 2 - PPSV23) [facility] Start: 1989 Screening for malign ant neoplasm of breast Mammogram [facility] Start: 1949 Screening for malign ant neoplasm of colon [facility] Payers Date Payer Category Payer Private Health Insurance [id number] 2021 Unknown [employer] [id number] 2021-Present [address] [place] [address] [id number] 2014 Medicare [id number] 1959 Medicare [id number] 1959 Unknown [id number] 1949 Unknown [id number] 2.16.840.1.162947.3.579.2.5 93 1949 Unknown [id number] .16.840.1.469602.3.579.2.5 93 1949 Unknown [id number] 2.16.840.1.127370.3.579.2.5 93 1949 Unknown [id number] 2.16.840.1.797943.3.579.2.5 93 1949 Unknown [id number] 2.16.840.1.742482.3.579.2.5 93 1949 Unknown [id number] 2.16.840.1.588949.3.579.2.5 93 1949 Unknown [id number] 2.16.840.1.652102.3.579.2.5 93 1949 Unknown [id number] 2.16.840.1.199595.3.579.2.5 93 1949 Unknown [id number] 2.16.840.1.095150.3.579.2.5 93 1949 Unknown [id number] 2.16.840.1.718510.3.579.2.5 93 1949 Unknown [id number] 2.16.840.1.837557.3.579.2.5 93 1949 Unknown [id number] 2.16.840.1.803543.3.579.2.5 93 1949 Unknown [id number] 2.16.840.1.092701.3.579.2.5 93 1949 Unknown [id number] 2.16.840.1.853077.3.579.2.5 93 1949 Unknown [id number] 2.16.840.1.023971.3.579.2.5 93 1949 Unknown [id number] 2.16.840.1.371216.3.579.2.5 93 1949 Unknown [id number] 2.16.840.1.595084.3.579.2.7 27 1949 Unknown [id number] 2.16.840.1.226572.3.579.2.7 27 1949 Unknown [id number] 2.16.840.1.626043.3.579.2.1 259 1949 Unknown [id number] 2.16.840.1.532858.3.579.2.1 259 1949 Unknown [id number] 2.16.840.1.323110.3.579.2.1 259 1949 Unknown [id number] 2.16.840.1.302818.3.579.2.1 259 1949 Unknown [id number] 2.16.840.1.063696.3.579.2.1 259 1949 Unknown [id number] 2.16.840.1.639371.3.579.2.1 259 1949 Unknown [id number] 2.16.840.1.190110.3.579.2.1 259 1949 Unknown [id number] 2.16.840.1.314033.3.579.2.1 259 1949 Unknown [id number] 2.16.840.1.817622.3.579.2.1 259 1949 Unknown [id number] 2.16.840.1.646247.3.579.2.1 259 1949 Unknown [id number] 2.16.840.1.845847.3.579.2.1 259 1949 Unknown [id number] 2.16.840.1.491272.3.579.2.1 259 Social History Date Type Detail Facility Start: 04-30-2023 End: 12-03-2023 Tobacco smoking status [facility] Ex-smoker [facility] End: 04-06-2006 History of tobacco use Current smoker [facility] End: 04-06-2006 History of tobacco use Cigarette Smoker [facility] History of tobacco use Passive smoker [facility] Start: 04-30-2023 End: 12-03-2023 Tobacco use and exposure Smokeless tobacco non-user [facility] Start: 05-14-2023 End: 12-03-2023 Alcohol intake Lifetime non-drinker (finding) [facility] Start: 04-30-2023 End: 11-03-2024 History of Social function [facility] Start: 04-30-2023 End: 11-03-2024 Tobacco use panel [facility] Start: 12-12-2022 Alcohol Comment Caffeine intake: non e [facility] Start: 1950 Sex Assigned At Not on file N [facility] Healthcare Start: 12-31-2023 End: 11-17-2024 Alcoholic beverage intake Ex-drinker (finding) [facility] re Start: 12-14-2023 Alcohol Comment Caffeine intak e: none; quit in 2014 [facility] Clinical Notes 05-26-2022 to 11-17-2024 Renny [...] b.I.d. basis., Disp: 30 mL, Rfl: 11 Bjyojvb-Xsaaxyubhzt-Gjynhhrgsx (Breztri Aerosphere) 160-9-4.8 MCG/ACT aerosol, Inhale 1 [...] Partner Violence: Unknown (05/28/2023) Received from [facility] [place] Safety [employer] Environment Fear [...] Renny Orlando DPM documented in this encounter [facility] 11-07-2024 Note [facility] - [facility] Subjective Adrianna Buitrago is a 74 [...] morning and at bedtime., Disp: , Rfl: ofmkxstlde-bylhdeaa-yfrllzcrwg (Breztri Aerosphere) 160-9-4.8 mcg/actuation HFA aerosol inhaler, [...] mg by chino (more content not included)... [facility] 10-20-2024 History of Present illness Narrative Patient: [...] b.I.d. basis., Disp: 30 mL, Rfl: 11 Sbmwflz-Xlrxpqtaeub-Ouzfsedaas (Breztri Aerosphere) 160-9-4.8 MCG/ACT aerosol, Inhale 1 [...] Partner Violence: Unknown (05/28/2023) Received from [facility] Safety & Environment Fear of [...] Renny Orlando DPM documented in this encounter [facility] 06-16-2024 History of Present illness Narrative [...] b.I.d. basis., Disp: 30 mL, Rfl: 11 Sxldnlk-Torwveknvkx-Btqrqnlhkt (Breztri Aerosphere) 160-9-4.8 MCG/ACT aerosol, Inhale 1 [...] Partner Violence: Unknown (05/28/2023) Received from [facility] [place] [employer] [place] Fear [...] Renny Orlando DPM documented in this encounter [facility] 04-29-2024 Note Cardiology Follow Up Progress [...] nostril in the morning and at bedtime. zraojgcjju-rbltzgbm-ejdikdexwp (Breztri Aerosphere) 160-9-4.8 mcg/actuation HFA aerosol inhaler [...] as needed Juanita Jenkins MD Interventional Cardiology [facility] 04-07-2024 History of Present illness Narrative Adrianna [...] medications or symptoms. documented in this encounter [facility] 02-11-2024 History of Present illness [...] b.I.d. basis., Disp: 30 mL, Rfl: 11 Gjaunpz-Ghaydtcobyd-Wpsamonzjr (Breztri Aerosphere) 160-9-4.8 MCG/ACT aerosol, Inhale 1 [...] Partner Violence: Unknown (05/28/2023) Received from [facility] [place] [employer] [place] Fear [...] Renny Orlando DPM documented in this encounter [facility] 01-28-2024 History of Present illness [...] b.I.d. basis., Disp: 30 mL, Rfl: 11 Ocztint-Fydkhdseeyr-Jzivncrrab (Breztri Aerosphere) 160-9-4.8 MCG/ACT aerosol, Inhale 1 [...] Partner Violence: Unknown (05/28/2023) Received from [facility] [place] [facility] [place] Fear [...] Renny Orlando DPM documented in this encounter [facility] 01-14-2024 History of Present illness [...] intervertebral disc History of varicose veins Hyperlipidemia ([facility]/HCC) Hypertension (CMS/HCC) Hyperthyroidism (CMS/HCC) Kidney disease Osteoarthritis Osteoporosis (CMS/HCC) Varicose vein of leg Medications: Current Outpatient Medications: aspirin 81 MG EC tablet, 1 (one) time each day at the same time., Disp: , Rfl: azelastine (Astelin) 0.1 % nasal spray, Azelastine HCl Two sprays per nostril on a b.I.d. basis., Disp: 30 mL, Rfl: 11 Ervlqnq-Ifrjoiebosy-Azinefbsqo (Breztri Ozy Mediaphere) 160-9-4.8 MCG/ACT aerosol, Inhale 1 puff Daily, [...] Partner Violence: Unknown (05/28/2023) Received from [facility] [place] [employer] [place] Fear [...] Renny Orlando DPM documented in this encounter [facility] 12-31-2023 History of Present illness [...] b.I.d. basis., Disp: 30 mL, Rfl: 11 Olsehkm-Xapgxhjusqk-Hjezhppviq (Breztri Aerosphere) 160-9-4.8 MCG/ACT aerosol, Inhale 1 [...] Partner Violence: Unknown (05/28/2023) Received from [facility] [place] [employer] [facility] [place] Fear [...] Renny Orlando DPM documented in this encounter [facility] 12-17-2023 History of Present illness [...] Partner Violence: Unknown (05/28/2023) Received from [facility] [place] [employer] [facility] [place] Fear [...] Renny Orlando DPM documented in this encounter [facility] 12-15-2023 History of Present illness [...] Breztri Aerosphere 160-9-4.8 MCG/ACT aerosol; Generic drug: Jgehncv-Seavrzxggds-Itpvoqljkt budesonide 1 MG/2ML nebulizer solution; Commonly known [...] wrist extensors , wrist flexor , and microbiology lab technician strength 5/5. LUE strength deltoid , biceps , triceps , wrist extensors , wrist flexor , and microbiology lab technician strength 5/5. RLE strength iliopsoas, quadriceps, tibialis [...] reflex 1+. LLE Knee reflex 1+. Coordination: Fhienv-tx-brhk testing normal. Rapid alternating movements are normal. [...] [facility] documented in this encounter [facility] 12-03-2023 History of Present illness [...] Partner Violence: Unknown (05/28/2023) Received from [facility] [place] [employer] [place] Fear [...] Renny Orlando DPM documented in this encounter [facility] 06-09-2023 Note Chief Complaint consultation [...] 1 tab(s), Oral, Daily Flonase 0.05 mg/inh [place], 2 spray(s), Nasal, Daily lactulose 10 g/15 [...] mEq= 1 tab(s (more content not included)... [facility] Comment on above: Result Comment: Elec tronically Signed By: KAVIN FRANKLIN, Issa Hi\Date and Time Signed: 06/09/23 08:28 EST 05-26-2022 Note CARDIAC STRESS TEST Requesting Physician: Procedure Date:05/26/2022 This is a treadmill stress test with myocardial perfusion imaging, performed at the [facility] on 05/26/2022. Informed consent was obtained. [...] +7.5 is associated with low risk for meterman cardiac events. 4. Myocardial perfusion images will be reported separately. The [facility] Evaluation note Diagnosis Verruca plantaris- Primary Plantar wart Foot pain, right Pain in soft tissues of limb Foot pain, left Pain in soft tissues of limb documented in this encounter [facility]* Diagnosis Verruca plantaris- Primary Plantar wart Foot pain, right Pain in soft tissues of limb Foot pain, left Pain in soft tissues of limb documented in this encounter [facility]* Diagnosis Verruca plantaris- Primary Plantar [...] tissues of limb documented in this encounter [facility] HealthcareHistory of Present illness Narrative* Renny Orlando [...] b.I.d. basis., Disp: 30 mL, Rfl: 11 Rlmcsvo-Yvwgdzvfvao-Sgumxnxljx (Breztri Aerosphere) 160-9-4.8 MCG/ACT aerosol, Inhale 1 [...] Partner Violence: Unknown (05/28/2023) Received from [facility] [place] [employer] [place] Fear [...] section and content) DATE CREATED AUTHOR 08/17/2021 [facility] Me dical Specialist DATE CREATED AUTHOR AUTHOR'S ORGANIZ ATION 07/05/2022 [facility] DATE CREATED AUTHOR AUTHOR'S ORGANIZ ATION 08/10/2023 [facility] DATE CREATED AUTHOR AUTHOR'S ORGANIZ ATION 11/08/2024 [facility] DATE CREATED AUTHOR AUTHOR'S ORGANIZ ATION 11/19/2024 [facility] dical Specialists EPIC Care Teams (unrecognized sec tion and content) Code Machine Operator Relationship Specialty Start Date End Date Jenny Burris MD [address] [place] [address] PCP - General Family Medicine 04/30/23 Code Machine Operator Relationship Specialty Start Date End Date Jenny Burris MD [address] [place] [address] PCP - General Family Medicine 04/30/23 Code Machine Operator Relationship Specialty Start Date End Date Jenny Burris MD [address] [place] [address] PCP - General Family Medicine 04/30/23 Code Machine Operator Relationship Specialty Start Date End Date Jenny Burris MD [address] [place] [address] PCP - General Family Medicine 04/30/23 Code Machine Operator Relationship Specialty Start Date End Date Jenny Burris MD [address] [place] [address] PCP - General Family Medicine 04/30/23 Code Machine Operator Relationship Specialty Start Date End Date Jenny Burris MD [address] [facility] [place] [address] PCP - General Family Medicine 04/30/23 Code Machine Operator Relationship Specialty Start Date End Date Jenny Burris MD [address] [facility] [place] [address] PCP - General Family Medicine 04/30/23 Code Machine Operator Relationship Specialty Start Date End Date Jenny Burris MD [address] [facility] [place] [address] PCP - General Family Medicine 04/30/23 Code Machine Operator Relationship Specialty Start Date End Date Jenny Burris MD [address] [facility] [place] [address] PCP - General Family Medicine 04/30/23 Code Machine Operator Relationship Specialty Start Date End Date Jenny Burris MD [address] [facility] [place] [address] PCP - General Family Medicine 04/30/23 Code Machine Operator Relationship Specialty Start Date End Date Jenny [...] BE BASED ON THE PRIMARY CLINICAL RECORDS. [facility] [employer] [facility]. provides no warranty or guarantee of the accuracy or completeness of information in this document.
== END 2024-11-29 16:49 | disposition home or self-care (01) ==
PROVIDERS: Emergency Provider Student in an Organized Health Care Education/Training Program; PCP Family Medicine
DX: S41.111A Laceration without foreign body of right upper arm, initial encounter (principal); S80.212A Abrasion, left knee, initial encounter; W11.XXXA Fall on and from ladder, initial encounter; Z90.710 Acquired absence of both cervix and uterus; Z90.722 Acquired absence of ovaries, bilateral; Z90.79 Acquired absence of other genital organ(s); Z98.49 Cataract extraction status, unspecified eye; Z87.891 Personal history of nicotine dependence
CPT/HCPCS: 90471; 90715; 99283

== ENCOUNTER 2024-11-30 07:29 | Outpatient (OUT) | payer MEDICARE, OTHER, SELFPAY ==
--- OUTSIDE RECORDS SUMMARY | 2024-11-08 04:30 | XMS_ITS ---
Author Organization [facility] [place] Address [address] [place] [address] Care Team Providers Care Indigo Mixer Name Role Phone Cornelio Burris Primary Care Provider [phone] Allergies Allergen (clinical drug ingredient) Drug/Non Drug [...] QOD, PRN for 90 days Active Ipratropium [place] 0.02 % 2.5 mL as needed Inhalation [...] Interpretation Negative Vital Signs Blood pressure systolic 122 mm Hg 11/09/19 25 Blood pressure diastolic 72 mm Hg 025 Height 63 in 11/08/2024 Weight 129 lbs 11/08/2024 BMI 22.85 kg/m2 11/08/2024 Encounters Encounter Location Date Provider Diagnosis [facility] [address] [place] [address] 11/08/2024 Cornelio Burris Encounter for Medica annual wellness exam Z00.00 Assessments Encounter Date Diagnosis (ICD Code) Assessment Notes Treatment Notes Treatment Clinical Notes Section Notes 11/08/2024 Encounter for Medicare annual wellness exam (ICD-10 - Z00.00) Plan Of Treatment Next Appt Details Provider Name:Cornelio Burris, 08:30:00 AM, [address] [place], [address], Progress Notes * Adrianna BUITRAGO DDOB:[birth year] (74 yo F)Acc No.[id number]:11/08/2024 Progress Note Patient: Adrianna BRAGG Provider: Nany Burris ([facility])MD :1950 A ge:74 Y S ex:Female Date:11/08/2024 Address:[facility] [address] [place], [id number] Check In:08:10 AM ESTCheck O ut:08:59 AM EST Subjective: * Chief Complaints: * Sobia Copeland * HPI: Sobia lyman Annual Wellness Visit: Type of Visit: S ailin Annual Wellness Visit (SAWV).? Visual Acuity: N /A. Other Providers of Care: C are Team reviewed with patient: Levon dugan, and updates made in [place] of Care Physical Activity: D o you [...] o you have a Durable Power of Community Liaison Officer? Y es W ould you like to [...] in a a tent, in an overnight fpc, or temporarily in someone else's home??No A [...] Vision Screening Y es, patient sees regular field nurse or property maintenance supervisor. DO NOT USE - Vision Screening Questionnaire [...] Hospitalization * Family History: F ather: , [place], diagnosed with Unspecified heart disease. M other: , lung disease, high cholesterol, [place], diagnosed with Unspecified essential hypertension, Unspecified heart [...] INTO EACH NOSTRIL ONCE A DAY Breztri Aerosphere(Fnonkgv-Nxcsrlkfjys-Qkacqqflos) 160-9-4.8 MCG/ACT Aerosol 2 puffs Inhalation once [...] Tablet 1 tablet Orally QOD, PRN Ipratropium [place] 0.02 % Solution 2.5 mL as needed [...] EACH NOSTRIL ONCE A DAY Taking Breztri Aerosphere(Yqrbfui-Hvvmrwtdivx-Qgknblxxny) 160-9-4.8 MCG/ACT Aerosol 2 puffs Inhalation once [...] 1 tablet Orally QOD, PRN Taking Ipratropium [place] 0.02 % Solution 2.5 mL as needed [...] (Check Out) true * Provider: Nany Burris ([facility])MD Date: 11/08/2024 Generated for Printi ng/Faxing/eTransmitting on: 11/30/2024 06:43 AM EDT History and Physical Notes * HPI (History of Present Illness) Category Sub-Category Detail Notes Category Not es Medicare Annual Wellness Visit Type of Visit: Subsequent Annual Wellness Visit (SAWV) DO NOT USE - Pain Assessment Do you experience p ain?: No DO NOT USE - Vision Screening Yes, patie nt sees regular field nurse or property maintenance supervisor DO NOT USE - Hearing Screening Not [...] Do you have a Durable Power of Community Liaison Officer? : Yes Would you like to discuss this topic tod ay?: No Other Providers of Care: Care Team lakshmi cruz with patient:: Yes, and updates made in [place] of Care SDOH Agree to complete [facility] Determinants of Health questionnaire: Yes Within the [...] in a a tent, in an overnight fpc, or temporarily in someone else's home?: No [...]
--- OUTSIDE RECORDS SUMMARY | 2024-11-17 13:30 | XMS_ITS | Encounter Summary ---
Author Organization [facility] Address [address] [place] [address] Care Team Providers Care Parking Cashier Name Role Phone Miko Burris MD Primary Care Provider [phone] Reason for Visit * Reason Comments Follow-up lesion Encounter Details Date Type Department Care Team (Late st Contact Info) Description 11/17/2024 1:30 PM EDT Office Visit [facility] 112 [facility] [address] [place] [phone] Renny Orlando, DPM [address] [facility] 5 [place] [address] Tinea corporis (Primary Dx); Verruca [...] b.I.d. basis., Disp: 30 mL, Rfl: 11 Lsupqlw-Eztgcdnhllg-Lmplybiujt (Breztri Aerosphere) 160-9-4.8 MCG/ACT aerosol, Inhale 1 [...] Partner Violence: Unknown (05/28/2023) Received from [facility] Safety & Environment Fear of Current or [...] EDT Office Visit [facility] [address] [facility] [address] [place] [address] Renny Orlando DPM [address] [facility] 5 [place] [address] 01/11/2025 9:20 AM EDT Office Visit [facility] [address] [facility] [address] [place] [address] Charles Faith MD [address] [facility] [address] [place] [address] documented as of this encounter Visit Diagnoses Diagnosis Tinea corporis- Primary Dermatophytosis of the body Verruca plantaris Plantar wart Foot pain, right Pain in soft tissues of limb Foot pain, left Pain in soft tissues of limb Tinea corporis- Primary Dermatophytosis of the body Verruca plantaris Plantar wart Foot pain, right Pain in soft tissues of limb Foot pain, left Pain in soft tissues of limb documented in this encounter Care Teams Parking Cashier Relationship Specialty Start Date End Date Miko Burris MD [address] [facility] [place] [address] [phone] PCP - General Family Medicine 04/30/23 documented as of this encounter
--- OUTSIDE RECORDS SUMMARY | 2024-11-23 04:30 | XMS_ITS ---
Author Organization [facility] in [place] Address [address] [place] [address] Care Team Providers Care Digital Media Representative Name Role Phone Cornelio Burris Primary Care Provider [phone] Allergies Allergen (clinical drug ingredient) Drug/Non Drug Allergy documented on EMR Reaction Allergy Type Onset Date Status amoxicillin Amoxicillin itching Drug Allergy Act bar morphine Morphine itching and swelling Drug Allergy Active REASON FOR VISIT 6mon, Migraines have been worse- is having to take Ubrelvy BID most days - does see Neurology next month Medications Medication SIG (Take, Route, Frequency, Duration) Notes Start Date End Date Status Pravastatin Sodium 10 MG 1 tablet Orally Once a day for 90 days Active Prolia 60 MG/ML as directed Subcutaneous Active Potassium Chloride ER 10 MEQ 1 tablet Orally three times daily for 90 days Active Imitrex 100 MG 1 tablet at least 2 hours between doses as needed Orally Twice a day 11/23/2024 Active Ubrelvy 100 MG 1 tablet may take se cond dose at least 2 hours after first dose as needed Orally Once a day PRN Active Omeprazole 40 MG 1 tablet Orally Once a day for 90 days Active Levothyroxine Sodium 100 MCG 1 tablet Orally Once a day for 90 days Active Nebulizer/Tubing/Mouthpiec e - as directed for 365 days 06/20/2024 Act bar Lactulose 10 GM/15ML 30ml Oral twice rabia ly as needed for 90 days PRN Active Fenofibrate 160 MG 1 tablet Orally Once a day for 90 days Active Fluticasone Propionate 50 MCG/ACT 2 spray in each nostril Nasally Once a day for 90 days Active Jobst 30-40mmHg Compression Sm - as directed dx:venous insufficiency qd for 30 days 05/01/2023 Active Furosemide 20 MG 1 tablet Orally QOD, PRN for 90 days Active Ipratropium [place] 0.02 % 2.5 mL as needed Inhalation QID As needed 11/05/2023 Active cloNIDine HCl 0.1 MG 1 tablet Orally twi ce daily for 90 days Active Cytomel 5 MCG 1 tablet on an empty stomach Orally Once a day for 90 days 12/04/2022 Active Breztri Aerosphere 160-9-4.8 MCG/ACT 2 puffs Inhalation once daily as needed for 30 days Active Budesonide 1 MG/2ML 1 mL Inhalation Once a day for 30 days Dx: COPD and Asthma Active Azelastine HCl 137 MCG/SPRAY SPRAY 2 SPRAYS INTO EACH NOSTRIL ONCE A DAY for 90 Active Aspirin Low Dose 81 MG 1 tablet Orally Once a day Active Social History Tobacco Use: Social History Observation Description Date Details (start date - stop date) Former Smoker 04/06/1964 - 04/06/2006 Tobacco Use/Smoking Question Answer Notes Patient is a former smoker When did you start smoking? 04/06/1964 When did you stop smoking? 04/06/2006 Vital Signs Blood pressure systolic 132 mm Hg 11/24/19 25 Blood pressure diastolic 84 mm Hg 025 Height 63 in 11/23/2024 Weight 126.2 lbs 11/23/2024 BMI 22.35 kg/m2 11/23/2024 Encounters Encounter Location Date Provider Diagnosis [address] [address] 11/23/2024 Cornelio Hoy Hypertension I10 ; Hypothyroidism E03.9 ; Migraine with aura G43.109 and Asthma J45.909 Assessments Encounter Date Diagnosis (ICD Code) Assessment Notes Treatment Notes Treatment Clinical Notes Section Notes 11/23/2024 Hypertension (ICD-10 - I10) 11/23/2024 Hypothyroidism (ICD-10 - E03.9) 11/23/2024 Migraine with aura (ICD-10 - G43.109) 11/23/2024 Asthma (ICD-10 - J45.909) Plan Of Treatment Medication Medication Name Sig Start Date Stop Date Notes Imitrex 100 MG 1 tablet at least 2 hours between doses as needed Orally Twice a day 11/23/2024 Pending Test Test Name Order Date HEMOGLOBIN A1C (GLYCO) 11/23/2024 IRON, TOTAL 11/23/2024 LIPID PANEL (CHOL/TRIG/HDL/LDL) 11/24/19 25 THYROID PANEL (T4/TSH/FREE T3) 5 CMP (COMP MET TYSON) w/eGFR CKD-EPI 2024 CBC WITH DIFF 11/23/2024 Next Appt Details Provider Name:Cornelio Burris, 08:30:00 AM, [address] [place], [address], Progress Notes * Adrianna BUITRAGO DDOB:[birth year] (74 yo F)Acc No.[id number]:11/23/2024 Progress Note Patient: Adrianna BRAGG Provider: Nany Burris ([facility])MD :1950 A ge:74 Y S ex:Female Date:11/23/2024 Address:[facility] [address] [facility] Check In:08:13 AM ESTCheck O ut:08:39 AM EST Subjective: * Chief Complaints: * 6 monMigraines have been worse- is having to take Ubrelvy BID most days - does see Neurology next month * HPI: G eneral: Migraine acting up - sinus meds seem to help a bit but ubrelvy not as effective Willing to try imitrex thyroid - on meds - stable HYpertednsion - stabel here breatibg doein well - asthem awell controlled with breztri. * ROS: E ENT: hearing changes d [...] Active Problem List I34.0 Mitral regurgitation Modified On:11/28/2022/U Status:confirmed I10 Hypertension Modified On:05/27/2023/U Status:confirmed K21.9 GERD (gastroesophage al reflux disease) Modified On:12/03/2022/U Status:confirmed E03.9 Hypothyroidism Modified On:12/05/2022/U Status:confirmed I87.2 Venous insufficiency Modified On:11/28/2022/U Status:confirmed M85.80 Osteopenia Modified On:11/28/2022 Status:confirmed M19.90 [...] osteoarthritis Modified On:06/12/2023 Status:confirmed U07.1 COVID-19 Modified On:06/24/2023U Status:confirmed R06.02 Shortness of breath Modified On:07/08/2023 Status:confirmed M81.0 Age-related osteopor osis without current pathological fracture Modified On:07/23/2023U Status:confirmed J45.20 Mild intermittent as thma, uncomplicated Modified On:04/18/2024W/U Status:confirmed J01.90 Acute sinusitis Modified On:09/15/2023W/U Status:confirmed M54.12 Cervical radiculopat hy Modified On:04/12/2024W/U Status:confirmed R60.9 Edema Modified On:04/12/2024/U Status:confirmed * Medical History: * Surgical History: T AH and DREW sinus surgery right foot x2 nasal septoplasty Lens implant OU Colonoscopy- Dr. Espinoza 08/05/2023 * Hospitalization/Major Diagno stic Procedure: D enies Past Hospitalization * Family History: F ather: , [place], diagnosed with Unspecified heart disease. M other: , lung disease, high cholesterol, [place], diagnosed with Unspecified essential hypertension, Unspecified heart disease. B rother(s): pancreatic and colon cancer, diagnosed with Other malignant neoplasm of unspecified site, Unspecified heart disease. * Social History: T obacco Use: T obacco Use/Smoking P atient is a f ormer smoker W hen did you start smoking? 0 04/06/1964 W hen did you stop smoking? 0 04/06/2006 * Medications: T akingAspirin Low Dose(Aspirin) 81 MG Tablet Delayed Release 1 tablet Orally Once a day Azelastine HCl 137 MCG/SPRAY Solution SPRAY 2 SPRAYS INTO EACH NOSTRIL ONCE A DAY Breztri Aerosphere(Xlxgcpp-Xtesblnffka-Fhwhogceno) 160-9-4.8 MCG/ACT Aerosol 2 puffs Inhalation once [...] Tablet 1 tablet Orally QOD, PRN Ipratropium [place] 0.02 % Solution 2.5 mL as needed [...] Once a day , Notes to Pharmacist: PRNTaking Aspirin Low Dose(Aspirin) 81 MG Tablet Delayed Release 1 tablet Orally Once a day Taking Azelastine HCl 137 MCG/SPRAY Solution SPRAY 2 SPRAYS INTO EACH NOSTRIL ONCE A DAY Taking Breztri Aerosphere(Dhzauvj-Xjnxdfvckgq-Yzonyryvfb) 160-9-4.8 MCG/ACT Aerosol 2 puffs Inhalation once [...] 1 tablet Orally QOD, PRN Taking Ipratropium [place] 0.02 % Solution 2.5 mL as needed [...] Once a day , Notes to Pharmacist: PRNDiscontinuedlevoFLOXacin 500 MG Tablet 1 tablet Orally Once a day Medication List reviewed and reconciled with the patientDiscontinued levoFLOXacin 500 MG Tablet 1 tablet Orally Once a day Medication List reviewed and reconciled with the patient * Allergies: M orphine: itching and swellingAmoxicillin: itchingno[Allergies Verified] Objective: * Vitals: W t:126.2lbs, Ht: 63 in, BP:132/84mm Hg, BMI:22.35Index, Ht-cm: 160.02 cm, Wt-k.24 kg. * Examination: P hysical Exam: GENERAL: [...] H ypertension - I10 (Primary) 2 . H ypothyroidism - E03.9 ?3. M igraine with aura - G43.109 4 . A sthma - J45.909 Plan: * Treatment: 2. H ypothyroidism L AB: HEMOGLOBIN A1C (GLYCO) L AB: IRON, TOTAL L AB: LIPID PANEL (CHOL/TRIG/HDL/LDL) L AB: THYROID PANEL (T4/TSH/FREE T3) L AB: CMP (COMP MET YTSON) w/eGFR CKD-EPI L AB: CBC WITH DIFF 3. M igraine with aura L AB: HEMOGLOBIN A1C (GLYCO) L AB: IRON, TOTAL L AB: LIPID PANEL (CHOL/TRIG/HDL/LDL) L AB: THYROID PANEL (T4/TSH/FREE T3) L AB: CMP (COMP MET TYSON) w/eGFR CKD-EPI L AB: CBC WITH DIFF 4. A sthma L AB: HEMOGLOBIN A1C (GLYCO) L AB: IRON, TOTAL L AB: LIPID PANEL (CHOL/TRIG/HDL/LDL) L AB: THYROID PANEL (T4/TSH/FREE T3) L AB: CMP (COMP MET TYSON) w/eGFR CKD-EPI L AB: CBC WITH DIFF * Procedure Codes: 3 079F DIAST BP 80-89 MM [id number] SYST BP GE 130 - 139MM HG * * Sign off status: Completed Visit Status: C HK (Check Out) true * Provider: Nany Burris ([facility])MD Date: 0 11/23/2024 Generated for Printi ng/Faxing/eTransmitting on: 0 11/30/2024 07:32 AM EDT History and Physical Notes * HPI (History of Present Illness) Category Sub-Category Detail Notes Category Not es General Migraine acting up - sinus meds seem to help a bit but ubrelvy not as effective Willing to try imitrex thyroid - on meds - stable HYpertednsion - stabel here breatibg doein well - asthem awell controlled with breztri Examination Category Sub-Category Detail Notes Category Not [...]
--- OUTSIDE RECORDS SUMMARY | 2024-11-23 08:55 | XMS_ITS ---
Demographics Address [facility] [address] [place] [address] Mobile Email Address Preferred Language en Marital Status Jew Affiliation Unknown Race White Ethnic Group Not or Lati no Author Organization [facility] in [place] Address [address] [place] [address] Care Team Providers Care Commercial Real Estate Sales Manager Name Role Phone Cornelio Burris Primary Care Provider [phone] REASON FOR VISIT review labs Encounters Encounter Location Date Provider Diagnosis [facility] [address] [place] [address] 11/23/2024 Cornelio Burris Elevated liver function tests R94.5 Assessments Encounter Date Diagnosis (ICD Code) Assessment Notes Treatment Notes Treatment Clinical Notes Section Notes 11/23/2024 Elevated liver function tests (ICD-10 - R94.5) Plan Of Treatment Pending Test Test Name Order Date CMP - Comprehensive Metabolic Panel 11/05 Next Appt Details Provider Name:Cornelio Burris, 08:30:00 AM, [address] [place], [address], Progress Notes * Adrianna BUITRAGO DDOB:[birth year] (74 yo F)Acc No.[id number]:11/23/2024 Patient: Oliverio Adrianna SILVERIO :1950 A ge:74 Y S ex:Female Address:[address] [place] [address] Subjective: * Chief Complaints: * R eview labs * Medical History: * Surgical History: * Hospitalization/Major Diagno stic Procedure: * Medications: Objective: * Vitals: * Physical Examination: Assessment: * Assessment: 1. E levated liver function tests - R94.5 (Primary) Plan: * Treatment: * Procedure Codes: * true * Date: Generated for Annie moss/Dustin/Nicolas on: 11/30/2024 06:43 AM EDT
--- OUTSIDE RECORDS SUMMARY | 2024-11-30 07:32 | XMS_ITS | Encounter Summary ---
Author Organization [facility] Address [address] [place] [address] Care Team Providers Care Ham Rolling Machine Operator Name Role Phone Miko Burris MD Primary Care Provider [phone] Encounter Details Date Type Department Care Team [...] EDT Office Visit [facility] [address] [facility] [address] [place] [phone] Renny Orlando, DPSobia [address] [facility] [address] [place] [address] 01/11/2025 9:20 AM EDT Office Visit [facility] [address] [place] [address] [place] [phone] Charles Faith MD [address] [place] [address] [place] [address] documented as of this encounter Visit Diagnoses Not on filedocumented in this encounter Care Teams Ham Rolling Machine Operator Relationship Specialty Start Date End Date Miko Burris MD [address] [place] [address] PCP - General Family Medicine 04/30/23 documented as of this encounter
--- OUTSIDE RECORDS SUMMARY | 2024-11-30 07:32 | XMS_ITS | Encounter Summary ---
Author Organization [facility] Address [address] [place] [address] Care Team Providers Care Truck Mechanic Apprentice Name Role Phone Miko Burris MD Primary Care Provider [phone] Encounter Details Date Type Department Care Team (Late st Contact Info) Description 11/17/2024 Bamboo flowsheet [facility] [address] [address] [place] [address] Renny Orlando DPM [address] [address] Social History Tobacco Use Types Packs/Day Years [...] [facility] [address] [place] [address] Renny Orlando DPM [address] [address] 01/11/2025 9:20 AM EDT Office Visit [facility] [address] [facility] [address] [place] [phone] Charles Faith MD [address] [facility] [address] [place] [address] documented as of this encounter Visit Diagnoses Not on filedocumented in this encounter Care Teams Truck Mechanic Apprentice Relationship Specialty Start Date End Date Miko Burris MD [address] [place] [address] PCP - General Family Medicine 04/30/23 documented as of this encounter
--- OUTSIDE RECORDS SUMMARY | 2024-11-30 07:32 | XMS_ITS | Patient Health Record ---
Demographics Address [address] [place] [address] Mobile Email Address Preferred Language en Marital Status Rastafarian Affiliation Unknown Race White Ethnic Group Not or Lati no Author Organization [facility] [place] Address [address] [place] [address] Care Team Providers Care Business Applications Analyst Name Role Phone Cornelio Burris Primary Care Provider Lucía Nath [phone] Allergies Allergen (clinical drug ingredient) Drug/Non Drug Allergy documented on EMR Reaction Allergy Type Onset Date Status amoxicillin Amoxicillin itching Drug Allergy Act bar morphine Morphine itching and swelling Drug Allergy Active Results Component Value Reference Range Notes CALCIUM Reviewed date:01/11/2024 09:54:46 AM Interpretation: Performing Lab: Notes/Report: [facility] , Calcium 10.2 8.5-10.1 mg/dL Performing Lab: see note - [facility] LB CREATININE Reviewed date:01/11/2024 09:54:46 AM Interpretation: Performing Lab: Notes/Report: [facility] , Creatinine 1.42 0.55-1.02 mg/dL Estimated GFR ( Coleen 44 >=60 mL/min/1.73m 2 Estimated GFR (Non- Ngoc 36 >=60 mL/min/1.73m 2 Performing Lab: see note - [facility] LB CBC AUTO DIFF Reviewed date:11/23/2024 12:56:26 PM Interpretation: Performing Lab: Notes/Report: [facility] , White Blood Count 6.2 4.0-11.0 10 [...] 3/uL Performing Lab: see note ML - [facility] IRON Reviewed date:11/23/2024 12:56:26 PM Interpretation: Performing Lab: Notes/Report: [facility] , Iron 122.0 50.0-170.0 ug/dL Performing Lab: see note - [facility] LB Occult Blood* Reviewed date:08/31/2024 01:01:38 PM Interpretation: Performing Lab: Notes/Report: [facility] , Occult Blood Negative Performing Lab: see note - [facility] LB PROF CHEM 8 (BAS METB) Reviewed date:08/31/2024 01:01:38 PM Interpretation: Performing Lab: Notes/Report: [facility] , Sodium 144 136-145 mmol/L Potassium 4.0 [...] Performing Lab: see note ML - [facility] LB LIVER PROFILE Reviewed date:08/31/2024 01:01:38 PM Interpretation: Performing Lab: Notes/Report: [facility] , Bilirubin Total 0.7 0.2-1.0 mg/dL Bilirubin Direct 0.2 0.0-0.2 mg/dL Aspartate Amino Transferase 35 15-37 U/L Alanine Aminotransferase 39 14-59 U/L Alkaline Phosphatase 46 46-116 U/L Total Protein 7.0 6.4-8.2 g/dL Albumin Level 3.8 3.4-5.0 g/dL Globulin 3.2 Albumin Globulin Ratio 1.2 Performing Lab: see note ML - [facility] LB LIPASE Reviewed date:08/31/2024 01:01:38 PM Interpretation: Performing Lab: Notes/Report: [facility] , Lipase 49.0 16.0-77.0 U/L Performing Lab: see note ML - [facility] LB AMYLASE Reviewed date:08/31/2024 01:01:38 PM Interpretation: Performing Lab: Notes/Report: [facility] , Amylase 84 25-115 U/L Performing Lab: see note ML - [facility] LB SARS-CoV-2 Ag* Reviewed date:08/29/2024 03:23:47 PM Interpretation: Performing Lab: Notes/Report: [facility] , SARS-CoV-2 Ag NEGATIVE NEGATIVE authorized for the duration of the declaration that viruses or pathogens. The emergency use of this test is emergency use of in vitro diagnostic tests for detection and/or diagnosis of Covid-19 under section 564(b)(1) of the Act, 21 U.S.C. 360bbb-3(b)(1), unless the declaration is authorized by the FDA under an Emergency Use Authorization terminated or authorization is revoked sooner. (EUA) for use by authorized laboratories certified under CLIA that meet the requirements to perform moderate or high circumstances exist justifying the authorization of the detection of proteins from SARS-CoV-2, not for any other This test has not been FDA cleared or approved, but has been complexity testing. This test has been authorized only for Performing Lab: see note ML - [facility] LB UA (CLEAN or CATCH) MICROSCO PIC IF INDICATE Reviewed date:08/29/2024 03:23:47 PM Interpretation: Performing Lab: Notes/Report: [facility] , Color Urine LT. YELLOW YELLOW Clarity Urine CLEAR CLEAR Specific [place] Urine <=1.005 1.005-1.025 pH Urine 6.0 5.0-9.0 Protein Urine NEGATIVE NEG/TRACE mg/dL Glucose Urine UA NEGATIVE NEGATIVE mg/dL Bilirubin Urine NEGATIVE NEGATIVE Ketones Urine NEGATIVE NEGATIVE mg/dL Blood Urine NEGATIVE NEGATIVE Nitrite Urine NEGATIVE NEGATIVE Urobilinogen Urine 0.2 0.2-1.0 EU/dL Leukocyte Esterase Urine NEGATIVE NEGATIVE Urine Microscopic Indicated NO Performing Lab: see note ML - [facility] LB CREATININE Reviewed date:07/13/2024 12:41:17 PM Interpretation: Performing Lab: Notes/Report: [facility] , Creatinine 1.22 0.55-1.02 mg/dL Estimated GFR ( Coleen 52 >=60 mL/min/1.73m 2 Estimated GFR (Non- Ngoc 43 >=60 mL/min/1.73m 2 Performing Lab: see note ML - [facility] LB CALCIUM Reviewed date:07/13/2024 12:41:17 PM Interpretation: Performing Lab: Notes/Report: [facility] , Calcium 9.7 8.5-10.1 mg/dL Performing Lab: see note ML - [facility] LB MR shoulder LT wo con Reviewed date:05/09/2024 07:49:36 PM Interpretation: Performing Lab: Notes/Report: Source Facility: [facility]-[address] [place] [address] [place] [address] Magnetic Resonance Report Signed Patient: ADRIANNA BUITRAGO MR#: [id number] : 1950 Acct:[id number] Age/Sex: 73 / F ADM Date: 05/06/24 Loc: MRI Attending Dr: Sophia PARKINSON Ordering Physician: Sophia Malik Date of Service: 05/06/24 Procedure(s): MR shoulder LT wo con Accession Number(s): [id number] cc: Jenny Burris M.D.; Sophia Malik [address] [address] Patient Name: ADRIANNA BUITRAGO MRN: [id number] date: 1950 Sex: F Assigned Patient Location: MRI Current Patient Location: Accession/Order Number: [id number] Exam Date: 05/06/2024 07:48 Report Date: 05/09/2024 [...] Signed By: 05/09/24 1049 DD/ 1046 TD/TT: Fast Food Manager: [place] [address] Magnetic Resonance Report Signed Patient: LALI BUITRAGO MR#: [id number] : 1950 Acct:[id number] Age/Sex: 73 / F ADM Date: 05/06/24 Loc: MRI Attending Dr: Paola Nichole Ordering Physician: Sophia Malik Date of Service: 05/06/24 Procedure(s): MR larry menendez LT wo con Accession Number(s): [id number] cc: Jenny Burris M.D. ; Sophia Malik [place] [address] Patient Name: ADRIANNA BUITRAGO MRN: [id number] date: 1950 Sex: F Assigned Patient Location: MRI Current Patient Location: Accession/Order Numb er: [id number] Exam Date: 05/06/2024 07:48 Report Date: 05/09/2024 [...] o visible tear or attrition. 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 CAPSULE No visible capsular [...] Signed By: 05/09/24 1049 DD/ 1046 TD/TT: Fast Food Manager: XR cervical spine 2-3V Reviewed date:04/24/2024 01:37:34 PM Interpretation: Performing Lab: Notes/Report: Source Facility: [place] [address] [place] [address] XRay Report Signed Patient: ADRIANNA BUITRAGO MR#: [id number] : 1950 Acct:[id number] Age/Sex: 73 / F ADM Date: 04/22/24 Loc: EC Attending Dr: Krystyna Caba M.D. Ordering Physician: Krystyna Caba M.D. Date of Service: 04/22/24 Procedure(s): XR cervical spine 2-3V Accession Number(s): [id number] cc: Jenny Burris M.D.; Krystyna Caba M.D. The [place] [id number] Patient Name: ADRIANAN BUITRAGO MRN: [id number] date: 1950 Sex: F Assigned Patient Location: Current Patient Location: Accession/Order Number: [id number] Exam Date: 04/22/2024 10:05 Report Date: 04/24/2024 [...] Hernandez M.D. Signed By: 04/24/2448 DD/ TD/TT: Fast Food Manager: [place] [address] XRay Report Signed Patient: LALI BUITRAGO MR#: [id number] : 1950 Acct:[id number] Age/Sex: 73 / F ADM Date: 04/22/24 Loc: Attending Dr: Krystyna Caba M.D. Ordering Physician: Krystyna Caba M.D. Date of Service: 04/22/24 Procedure(s): XR cer vical spine 2-3V Accession Number(s): [id number] cc: Jenny Burris M.D. ; Krystyna Caba M.D. [address] [address] Patient Name: ADRIANNA BUITRAGO MRN: [id number] date: 1950 Sex: F Assigned Patient Location: Current Patient Loca tion: EC Accession/Order Numb er: [id number] Exam Date: 04/22/2024 10:05 Report Date: 04/24/2024 [...] M.D. Signed By: 04/24/24 0948 DD/ TD/TT: Fast Food Manager: NIKKI tomosynthesis screening B I Reviewed date:01/31/2024 10:37:30 PM Interpretation: Performing Lab: Notes/Report: Source Facility: [facility] [place] [address] [place] [address] Mammography Report Signed Patient: ADRIANNA BUITRAGO MR#: [id number] : 1950 Acct:[id number] Age/Sex: 73 / F ADM Date: 01/29/24 Loc: MAMMO Attending Dr: Jenny Burris M.D. Ordering Physician: Jenny Burris M.D. Results: Date of Service: 01/29/24 Follow Up: Procedure(s): MM tomosynthesis screening BI Accession Number(s): [id number] cc: Jenny Burris M.D. Patient Name: ADRIANNA BUITRAGO MR#: [id number] : 1950 Exam Date: 01/29/2024 Ordering Doctor: [...] at age 59. LOCATION: The [facility] BREAST COMPOSITION: There are scattered areas of [...] M.D. Signed By: 01/31/241947 DD/ 46 TD/TT: Fast Food Manager: [place] [address] Mammography Report Signed Patient: LALI BUITRAGO MR#: [id number] : 1950 Acct:[id number] Age/Sex: 73 / F ADM Date: 01/29/24 Loc: MAMMO Attending Dr: Dontae Burris M.D. Ordering Physician: Jenny Burris M.D. Results: Date of Service: Follow Up: Procedure(s): MM tomosynthesis screening BI Accession Number(s): [id number] cc: Jenny Burris M.D. Patient Name: ADRIANNA BUITRAGO MR#: [id number] : 1950 Exam Date: 01/29/2024 Ordering Doctor: [...] at age 59. LOCATION: The [facility] BREAST COMPOSITION: There are scattered areas [...] M.D. Signed By: 01/31/241947 DD/ 46 TD/TT: Fast Food Manager: PROF LAVONNE Espitia ([facility]) Reviewed date:01/14/2024 10:18:20 AM Interpretation: Performing Lab: Notes/Report: [facility] , Sodium 138 136-145 mmol/L Potassium 4.4 [...] mg/dL Performing Lab: see note ML - [facility] PROF BANERJEE 8 (ODILON DALAL) Reviewed date:01/11/2024 08:06:02 PM Interpretation: Performing Lab: Notes/Report: [facility] , Sodium 139 136-145 mmol/L Potassium 3.3 [...] Performing Lab: see note ML - [facility] LB XR cervical spine 2-3V Reviewed date:04/13/2024 06:55:56 PM Interpretation: Performing Lab: Notes/Report: Source Facility: [facility]-[address] [place] [address] XRay Report Signed Patient: ADRIANNA BUITRAGO MR#: [id number] : 1950 Acct:[id number] Age/Sex: 73 / F ADM Date: 04/12/24 Loc: LAB Attending Dr: Jenny Burris M.D. Ordering Physician: Jenny Burris M.D. Date of Service: 04/12/24 Procedure(s): XR cervical spine 2-3V Accession Number(s): [id number] cc: Jenny Burris M.D. The [place] [address] Patient Name: ADRIANNA BUITRAGO MRN: [id number] date: 1950 Sex: F Assigned Patient Location: LAB Current Patient Location: PT Accession/Order Number: [id number] Exam Date: 04/12/2024 09:40 Report Date: 04/12/2024 [...] Dictated By: Cody Tovar M.D. Signed By: 04/12/24 2214 DD/ 10 TD/TT: Fast Food Manager: [place] [address] XRay Report Signed Patient: LALI BUITRAGO MR#: [id number] : 1950 Acct:[id number] Age/Sex: 73 / F ADM Date: 04/12/24 Loc: LAB Attending Dr: Dontae Burris M.D. Ordering Physician: Jenny Burris M.D. Date of Service: 04/12/24 Procedure(s): XR cer vical spine 2-3V Accession Number(s): [id number] cc: Jenny Burris M.D. The [address] [address] Patient Name: ADRIANNA BUITRAGO MRN: [id number] date: 1950 Sex: F Assigned Patient Location: LAB Current Patient Loca tion: PT Accession/Order Numb er: [id number] Exam Date: 04/12/2024 09:40 Report Date: 04/12/2024 [...] M.D. Signed By: 04/12/242213 DD/ 10 TD/TT: Fast Food Manager: PROF LAVONNE Espitia ([facility]) Reviewed date:04/12/2024 12:35:00 PM Interpretation: Performing Lab: Notes/Report: [facility] , Sodium 142 136-145 mmol/L Potassium 3.6 [...] mg/dL Performing Lab: see note ML - [facility] LB COVID-19, Flu A+B IH Reviewed date:01/11/2024 09:54:46 AM Interpretation: Performing Lab: Notes/Report: COVID Neg FLU A neg FLU B neg Control present TSH Reviewed date:11/23/2024 12:56:26 PM Interpretation: Performing Lab: Notes/Report: [facility] , Thyroid Stimulating Hormone 0.391 0.358-3.740 uIU/mL Performing Lab: see note ML - [facility] LB T4 Reviewed date:11/23/2024 12:56:26 PM Interpretation: Performing Lab: Notes/Report: [facility] , T4 Thyroxine 11.30 4.80-13.90 ug/dL Performing Lab: see note - [facility] PROF 14(COMP METB) Reviewed date:11/23/2024 12:56:26 PM Interpretation: Performing Lab: Notes/Report: [facility] , Sodium 138 136-145 mmol/L Potassium 4.2 [...] Performing Lab: see note ML - [facility] LB LIPID PROFILE Reviewed date:11/23/2024 12:56:26 PM Interpretation: Performing Lab: Notes/Report: [facility] , Triglycerides 61 <=150 mg/dL Cholesterol 174 <=200 mg/dL HDL Cholesterol 61 40-60 mg/dL <40 mg/dl - HIGH CARDIOVASCULAR RISK > or =60 mg/dl - LOW CARDIOVASCULAR RISK LDL Cholesterol Calculated 101.0 160-189 mg/dl HIGH 100-129 mg/dl NEAR OR ABOVE OPTIMAL >190 mg/dl VERY HIGH 130-159 mg/dl BORDERLINE HIGH <100 mg/dl OPTIMAL VLDL CHOLESTEROL 12.2 Chol HDL Ratio 2.9 >11.0 HIGH RISK 7.1 - 11.0 MODERATE RISK 4.4 - 7.1 AVERAGE RISK 3.3 - 4.4 LOW RISK Performing Lab: see note ML - [facility] GLYCOHEMOGLOBIN A1C Reviewed date:11/23/2024 12:56:26 PM Interpretation: Performing Lab: Notes/Report: [facility] , Glycohemoglobin A1C 4.9 4.5-6.2 % > 7.0 ADA RECOMMENDED LIMIT 4.0 - 6.0 ADA THERAPEUTIC TARGET < 7.0 ACTION SUGGESTED Estimated Average Glucose 94 Performing Lab: see note ML - [facility] FREE T3 Reviewed date:11/23/2024 12:56:26 PM Interpretation: Performing Lab: Notes/Report: [facility] , Free T3 2.25 2.18-3.98 pg/mL Performing Lab: see note ML - [facility] LB Manual Differential Reviewed date:08/31/2024 01:01:38 PM Interpretation: Performing Lab: Notes/Report: [facility] , Segmented Neutrophils % Manual 90.0 43.0-75.0 [...] 0 3/uL Performing Lab: see note - [facility] LB CBC AUTO DIFF Reviewed date:08/31/2024 01:01:38 PM Interpretation: Performing Lab: Notes/Report: [facility] , White Blood Count 12.3 4.0-11.0 10 [...] 11.0 9.5-13.5 fL Performing Lab: see note - [facility] LB ECG 12 lead Reviewed date:08/29/2024 03:23:47 PM Interpretation: Performing Lab: Notes/Report: Source Facility: [place] [address] [place] [address] Electrocardiograph Report Signed Patient: ADRIANNA BUITRAGO MR#: [id number] : 1950 Acct:[id number] Age/Sex: 73 / F ADM Date: 08/28/24 Loc: ER Attending Dr: Ordering Physician: Kenya Clinton Date of Service: 08/28/24 Procedure(s): ECG 12 lead Accession Number(s): [id number] cc: [facility] Test Date: 2024-08-28 Pat Name: ADRIANNA BUITRAGO Department: Room: - Gender: Female Proof Technician: : 1950 Requested By: [id number] Order Number: [id number] Reading MD: HOMER STEVENS M.D. Measurements Intervals Anna Rate: 64 P: 65 ME: 118 QRS: 79 QRSD: 84 T: 72 QT: 376 QTc: 386 Interpretive Statements 1100 Sinus rhythm 2210 Short ME interval 9150 abnormal ECG Compared to ECG 06/23/2023 15:46:53 Short ME interval now present Electronically Signed On 08-29-2024 7:53:00 EDT by HOMER STEVENS M.D. Dictated By: HOMER STEVENS Signed By: 08/29/24 075 DD/ 1521 TD/TT: Fast Food Manager: [place] [address] Electrocardiograph Report Signed Patient: LALI BUITRAGO MR#: [id number] : 1950 Acct:[id number] Age/Sex: 73 / F ADM Date: 08/28/24 Loc: ER Attending Dr: Ordering Physician: Kenya Clinton Date of Service: 08/28/24 Procedure(s): ECG 12 lead Accession Number(s): [id number] cc: [facility] Test Date: 2024-08-28 Pat Name: ADRIANNA MARTE Department: 05 Room: - Gender: Female Proof Technician: : 1950 Anil tirado By: 181 Order Number: [id number] Reading MD: HOMER STEVENS M.D. Measurements Intervals Anna Rate: 64 P: 65 ME: 118 QRS: 79 QRSD: 84 T: 72 QT: 376 QTc: 386 Interpretive Statements 1100 Sinus rhythm 2210 Short ME interval 9150 abnormal ECG Compared to ECG 06/23/2023 15:46:53 Short ME interval no w present Electronically Patricia d On 08-29-2024 7:53:00 EDT by HOMER STEVENS M.D. Dictated By: HOMER STEVENS Signed By: 08/29/24 075 DD/ 1521 TD/TT: Fast Food Manager: PROF LAVONNE Espitia ([facility]) Reviewed date:08/29/2024 03:23:47 PM Interpretation: Performing Lab: Notes/Report: [facility] , Sodium 145 136-145 mmol/L Potassium 3.7 [...] mg/dL Performing Lab: see note ML - [facility] LB CBC AUTO DIFF Reviewed date:08/29/2024 03:23:47 PM Interpretation: Performing Lab: Notes/Report: [facility] , White Blood Count 13.0 [...] Performing Lab: see note ML - [facility] LB MR cervical spine wo con Reviewed date:04/18/2024 01:16:08 PM Interpretation: Performing Lab: Notes/Report: Source Facility: [facility]-[address] [place] [address] [place] [address] Magnetic Resonance Report Signed Patient: ADRIANNA BUITRAGO MR#: [id number] : 1950 Acct:[id number] Age/Sex: 73 / F ADM Date: 04/18/24 Loc: MRI Attending Dr: Jenny Burris M.D. Ordering Physician: Jenny Burris M.D. Date of Service: 04/18/24 Procedure(s): MR cervical spine wo con Accession Number(s): [id number] cc: Jenny Burris M.D. [place] [address] Patient Name: ADRIANNA BUITRAGO MRN: [id number] date: 1950 Sex: F Assigned Patient Location: MRI Current Patient Location: MRI Accession/Order Number: [id number] Exam Date: 04/18/2024 07:50 Report Date: 04/18/2024 [...] Esteves M.D. Signed By: 04/18/2448 DD/ TD/TT: Fast Food Manager: [place] [address] Magnetic Resonance Report Signed Patient: LALI BUITRAGO MR#: [id number] : 1950 Acct:[id number] Age/Sex: 73 / F ADM Date: 04/18/24 Loc: MRI Attending Dr: Dontae Burris M.D. Ordering Physician: Jenny Burris M.D. Date of Service: 04/18/24 Procedure(s): MR cer vical spine wo con Accession Number(s): [id number] cc: Jenny Burris M.D. [address] [address] Patient Name: ADRIANNA BUITRAGO MRN: [id number] date: 1950 Sex: F Assigned Patient Location: MRI Current Patient Loca tion: MRI Accession/Order Numb er: [id number] Exam Date: 04/18/2024 07:50 Report Date: 04/18/2024 [...] M.D. Signed By: 04/18/2448 DD/ 5 TD/TT: Fast Food Manager: Reason For Referral Diagnosis 1 Cervical radiculopat hy (M54.12) Referral Organization [facility] Referring Provider First Name Cornelio Referring Provider Last Name [place] Referring Provider Speciality Family Med icine Referred Provider [facility], Physical Therap y Referred Provider Specialty Physical Med icine and Rehabilitation Referral Priority Routine Diagnosis 1 Cervical radiculopat hy (M54.12) Referral Organization [facility] Medicine Referring Provider First Name Cornelio Referring Provider Last Name [place] Referring Provider Speciality Family [facility] mauryne Referred Provider Krystyna Joseph Referred Provider Specialty [...] Orally Once a day PRN Active Ipratropium Jenks 0.02 % 2.5 mL as needed Inhalation [...] Unknown 01/11/2022 Administered SARS-COV-2 COVID-19, mRNA, L STOREPERSON-S, PF, 50 mcg/0.5 mL Unknown 02/04/2023 Administered [...] Status Risk Notes Problem Low back pain (297693993) Low back pain (724.5) Active confirmed Problem 587009517 Migraine without aura, not intractable, without status migrainosus (G43.009) Active confirmed Problem 40468324 Age-related osteoporosis without current pathological fracture (M81.0) Active confirmed Problem 289911585 Neoplasm of unce rtain behavior, 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 Problem 446768108 Mild intermitten t asthma, uncomplicated (J45.20) Active confirmed Problem Shortness of breath (214764970) Shortness of breath (R06.02) Active confirmed Problem Mitral regurgitation (48320241) Mitral regurgitation (I34.0) Active confirmed Problem Hypertension (98119502) Hypertension (I10) Active confirmed Problem Asthma (108449190) Asthma (J45.909) Active conf irmed Problem Gastroesophageal reflux disease (229245421) GERD (gastroesophageal reflux disease) (K21.9) Active confirmed Problem Cervical radiculopathy (34438644) Cervical radiculopathy (M54.12) Active confirmed Problem Hypothyroidism (18069697) Hypothyroidism (E03.9) Active confirmed Problem Edema (25438666) Edema (R60.9) Active confirmed Problem Venous insufficiency of leg (disorder) (591543860) Venous insufficiency (I87.2) Active confirmed Problem Osteopenia (880700591) Osteopenia (M85.80) Active confirmed Problem Degenerative arthritis (661433134) Degenerative arthritis (M19.90) Active confirmed Problem Lumbar radiculopathy (966197963) Lumbar radiculopathy (M54.16) Active confirmed Problem Acute sinusitis (14727604) Acute sinusitis (J01.90) Active confirmed Problem Allergic rhinitis (84914926) Allergic rhinitis (J30.9) Active confirmed Problem Cervical disc diseas e (649805338) Cervical disc disease (M50.90) Active confirmed Problem Migraine with aura (6151027) Migraine with aura (G43.109) Active confirmed Problem Osteoarthritis of hi p (161146365) 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) Active confirmed Problem Acute bronchiolitis (6058714) Acute bronchiolitis (J21.9) Active confirmed Problem Heart murmur (53861713) Cardiac murmur (R01.1) Active confirmed Problem Tricuspid valve disorder (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) 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) Active confirmed Problem Degeneration of lumbar intervertebral disc (01381794) 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) Active confirmed Problem Hypercholesterolemia (28937826) Hypercholesterolemia (E78.00) Active confirmed Problem Age-related cataract (66306602) Senile cataract of left eye, unspecified age-related cataract type (H25.9) Active confirmed Problem COVID-19 (305367984) COVID-19 (U07.1) Active co nfirmed Vital Signs Heart Rate 61 /min 01/06/2024 Temperature 100.2 degrees Fahrenheit 08/31/2024 Oximetry 99 % 01/06/2024 Blood pressure diastolic 84 mm Hg 11/23/2024 Height 63 in 11/23/2024 Blood pressure systolic 132 mm Hg 11/23/2024 Weight 126.2 lbs 11/23/2024 BMI 22.35 kg/m2 11/23/2024 Encounters Encounter Location Date Provider Diagnosis [facility] [address] [place] [address] 08/12/2024 Cornelio Burris Asthma J45.909 [facility] [address] [place] [address] 09/20/2024 Cornelio Hoy [facility] [address] [place] [address] 09/20/2024 Cornelio Burris [facility] [address] [place] [address] 11/23/2024 Cornelio Burris Elevated liver funct ion tests R94.5 [facility] [address] [place] [address] 04/26/2024 Cornelio Burris [facility] [address] [place] [address] 04/28/2024 Cornelio Burris [facility] [address] [facility] [place] [address] 05/02/2024 Cornelio Burris [facility] [address] [place] [address] 05/09/2024 Cornelio Burris [facility] [address] [place] [address] 05/12/2024 Cornelio Burris [facility] [address] [place] [address] 06/20/2024 Cornelio Burris [facility] [address] [place] [id number] 04/08/2024 Cornelio Burris [facility] [address] [facility] [place] [address] 04/12/2024 Cornelio angelia [facility] [address] [place] [facility] [address] 04/13/2024 Cornelio Staffordy Cervical radiculopat hy M54.12 [facility] [address] [facility] [place] [address] 04/18/2024 Cornelio Staffordy Cervical radiculopat hy M54.12 [facility] [address] [facility] [place] [address] 04/22/2024 Cornelio Staffordangelia [facility] [address] [facility] [place] [address] 04/25/2024 Cornelio Staffordangelia [facility] [address] [facility] [place] [address] 01/11/2024 Cornelio Riveray Creatinine elevation R79.89 [facility] [address] [facility] [place] [address] 01/11/2024 Cornelio Staffordangelia Creatinine elevation R79.89 [facility] [address] [facility] [place] [address] 01/14/2024 Cornelio Dayton [facility] [address] [facility] [place] [address] 01/15/2024 Cornelio Dayton [facility] [address] [facility] [place] [address] 01/31/2024 Lucía Nath [facility] [address] [facility] [place] [address] 02/11/2024 Cornelio Burris [facility] [address] [facility] [place] [address] 12/15/2023 Cornelio Burris [facility] [address] [facility] [place] [address] 11/08/2024 Cornelio Burris Encounter for Medica re annual wellness exam Z00.00 [facility] [address] [facility] [place] [address] 05/26/2024 Cornelio Burris Hypertension I10 ; G ERD (gastroesophageal reflux disease) K21.9 ; Hypothyroidism E03.9 and Cervical radiculopathy M54.12 [facility] [address] [facility] [place] [address] 08/31/2024 Cornelio Hoy Acute bronchitis, unspecified organism J20.9 [facility] [address] [place] [address] 11/23/2024 Cornelio Hoy Hypertension I10 ; Hypothyroidism E03.9 ; Migraine with aura G43.109 and Asthma J45.909 [facility] [address] [place] [address] 01/06/2024 Cornelio Hoy Acute bronchiolitis J21.9 [facility] [address] [place] [address] 04/12/2024 Cornelio Hoy Degenerative arthrit is M19.90 ; Cervical disc disease M50.90 ; Cervical radiculopathy M54.12 and Edema R60.9 Assessments Encounter Date Diagnosis (ICD Code) Assessment Notes Treatment Notes Treatment Clinical Notes Section Notes 05/26/2024 Hypertension (ICD-10 - I10) 05/26/2024 GERD (gastroesophageal reflux disease) (ICD-10 - K21.9) 01/06/2024 Acute bronchiolitis (ICD-10 - J21.9) 04/12/2024 Degenerative arthritis (ICD-10 - M19.90) 04/12/2024 Cervical disc disease (ICD-10 - M50.90) 08/31/2024 Acute bronchitis, unspecified [...] Elevated liver function tests (ICD-10 - R94.5) 11/23/2024 Hypertension (ICD-10 - I10) 11/23/2024 Hypothyroidism (ICD-10 - E03.9) 11/23/2024 Migraine with aura (ICD-10 - G43.109) 04/12/2024 Cervical radiculopathy (ICD-10 - M54.12) 05/26/2024 Hypothyroidism (ICD-10 - E03.9) 05/26/2024 Cervical radiculopathy (ICD-10 - M54.12) 04/12/2024 [...] Provider Name:Cornelio Burris, 08:30:00 AM, [address] [place], [address], Insurance Providers Payer Name Payer Address Payer Phone Subscriber Number Group Number Insured Name Patient Relationship to Insured Coverage Start Date Coverage End Date MEDICARE [place] [address] [address] [id number] BuitragoAdrianna marte Self - patient is the insured MMO MEDICARE SUPPLEMENT [address] [place] [address] [id number] Buitrago, Adrianna Self - patient is the insured Medications [...] disease) K 21.9 Surgical History Surgery Date(Month/Year) right foot x2 nasal septoplasty Lens implant OU Colonoscopy- Dr. Espinoza 08/05/2023 SUE and DREW sinus surgery
--- OUTSIDE RECORDS SUMMARY | 2024-11-30 07:32 | XMS_ITS | Clinical Summary ---
Demographics Address [address] [place] [address] Home Phone Preferred Language en Marital Status Islam Affiliation Unknown Race White Ethnic Group Not or Lati no Author Organization [facility] Address [address] [place] [address] Care Team Providers Care Gunner Mate Name Role Phone Miko Burris MD Primary Care Provider [phone] Allergies Active Allergy Reactions Criticality Noted Date [...] Description 11/07/2024 9:00 AM EDT Office Visit [facility] [address] [address] Azam Garcia MD Primary hypertension [...] to complete this topic Insurance MEDICARE [place] [place] Care Teams Gunner Mate Relationship Specialty Start Date End Date Miko Burris MD [address] [facility] [place] [address] PCP - General 05/14/22
--- OUTSIDE RECORDS SUMMARY | 2024-11-30 07:32 | XMS_ITS | Clinical Summary ---
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 Name Role Phone Miko Burris MD Primary Care Provider [phone] Allergies Active Allergy Reactions Criticality Noted Date [...] PM EDT Office Visit [facility] [address] [place] [address] Renny Orlando DPM Tinea corporis (Primary Dx); Verruca plantaris; Foot pain, right; Foot pain, left 11/17/2024 Bamboo flowsheet [facility] [address] [place] [address] Renny Orlando DPM 11/17/2024 Travel 11/03/2024 9:50 AM EDT Office Visit [facility] [address] [address] [place] [address] Renny Orlando DPM Tinea corporis (Primary Dx); Verruca plantaris; Foot pain, right; Foot pain, left 11/03/2024 Bamboo flowsheet [facility] [address] [place] [address] Renny Orlando DPM 11/03/2024 Travel 10/20/2024 11:50 AM EDT Office Visit [facility] [address] [place] [address] Renny Orlando DPM Verruca plantaris (Primary Dx); Foot pain, right; Foot pain, left; Pain due to onychomycosis of toenails of both feet 10/20/2024 Bamboo flowsheet [facility] [address] [place] [address] Renny Orlando DPM 10/20/2024 Travel from Last [...] [facility] [address] [place] [address] Renny Orlando DPM [address] [facility] [address] [place] [address] 01/11/2025 9:20 AM EDT Office Visit [facility] [address] [place] [address] Charles Faith MD [address] [facility] [address] [place] [address] Health Maintenance Due Date Last Done Comments CT Colonography 1950 Colonoscopy 1950 Colorectal Cancer Screening 1950 FIT-DNA 1950 FIT 1950 FOBT 1950 Sigmoidoscopy 1950 Pneumococcal Vaccine: 65+ Years (2 of 2 - PPSV23) 10/0510/27/2017 Influenza Vaccine (#1) 2024 Insurance * Guarantor: Adrianna Buitrago Account Type Relation to Patient Date of Phone Billing Address Personal/Family Self 1950 [address] [place] [address] MEDICARE [employer] [place] Care Teams Laboratory Animal Facility Supervisor Relationship Specialty Start Date End Date Miko Burris MD [address] [place] [address] PCP - General Family Medicine 04/30/23
--- OUTSIDE RECORDS SUMMARY | 2024-11-30 07:32 | XMS_ITS | CCD ---
Author Organization [facility] Care Team Providers Care Train Director Name Role Phone HOY ., DR ALVARADO [...] Unavailable Jenny Burris MD Primary Care Provider [phone] Issa VALE Attending Unavailable Issa VALE Attending Unavailable Jenny Burris MD Primary Care Provider [phone] Jenny Burris MD Primary Care Provider [phone] HOMER STEVENS Attending Unavailable ALGHOTHANI, MOHAMAD Attending [...] Amoxicillin; Translations: [AMOXICILLIN] Drug Allergy 3 [facility] Repository (3 sources) Morphine; Translations: [morphine] Drug Allergy 3 [facility] Repository (20 sources) Amoxicillin Drug Allergy 3 Itching, Other, Unknown [facility] (20 sources) Mold Extract Drug Allergy 4 Unknown [facility] (20 sources) Morphine Drug Allergy 3 Itching, Other [facility] (1 source) Penicillin; Translations: [penicillin] Drug Allergy [facility] Repository (1 source) No Known Medication Allergies; Translations: [No Known Medication Allergies] Propensity to adverse reactions (disorder) [facility] Repository (1 source) Mold Extract; Translations: [MOLD] Drug Allergy 4 [facility] Repository Medications Current Medications Medication Drug Class(es) [...] take 1 puff(s) by inhalation once daily Wpmemjz-Qwfmsipghru-Jjohcenmto (Breztri Aerosphere) 160-9-4.8 MCG/ACT aerosol Inhale 1 puff Daily Active 168 hr cloNIDine 0.45294 mg/hr transdermal system (20 sources) Central alpha-2 [...] [facility] Facility Office Visiton 11-07-2024 Follow-up visit [id number] Shirley Buitrago D 1950 F Date Provider Department Center 11/07/2024 HOMER STORY CARD [facility] Family History Problem Relation Age of Onset Heart attack Father Coronary artery disease Sister Peripheral vascular disease Sister Heart attack Brother Family Status - Relation Status Age at Mother Father Sister Brother Level of Service:[address] [place] OFFICE/OUTPATIENT ESTABLISHED MOD MDM 30 MIN Normal [facility] Office Visiton 04-29-2024 Follow-up visit [id number] Shirley Buitrago ly D 1950 F Date Provider Department Center 04/29/2024 384Nupur-JUANITA JENKINS CARD [facility] Family History Problem Relation Age of Onset Heart attack Father Coronary artery disease Sister Peripheral vascular disease Sister Heart attack Brother Family Status - Relation Status Age at Father Sister Brother Level of Service:[address]1967 [place] OFFICE/OUTPATIENT ESTABLISHED LOW MDM 20 MIN Normal [facility] Outside Colonoscopyon 2023 Outside Colonoscopy [id number] 50 [id number]#[id number] 0TIFF [facility] Reminderson 08-07-2023 Reminders - From: Kandi Cesar LPN To: GSN - Clinical; Sent: 08/07/2023 07:59:01 EDT Show up: 07/06/2033 07:59:00 EDT Subject: colonoscopy recall Due Date/Time: 08/04/2033 07:00:00 EDT Reminder/Recall If patient is in good health, she is due for screening colonoscopy 08/04/2033. Normal [facility] Consent for Procedure/Surger yon 06-10-2023 Consent for Procedure/Surgery [id number] 0TIFF [facility] Ambulatory Visit Summaryon 0 06-09-2023 [...] oral tablet) fluticasone nasal (Flonase 0.05 mg/inh [place]) furosemide (Lasix 20 mg Tab) lactulose (lactulose [...] Unchanged fluticasone nasal (Flonase 0.05 mg/ inh [place]) 2 Sprays Nasal Inhalation Every day Contact [...] for choosing us for your care. Normal [facility] Physician Referralon 024 Physician Referral [id number] 20 [id number] 0TIFF Normal [facility] CALCIUMon 07-02-2022 Calcium [Mass/Vol] 9.8 mg/dL Normal 8.5-10.1 [facility] Comment on above: Performed By: #### C A, CREA #### [facility] [address] [address] [address] Zuly Medina CREATININEon 07-02-2022 Creatinine [Mass/Vol] 1.41 mg/dL Critically high 0.55-1.02 [facility] Comment on above: Performed By: #### C A, CREA #### [facility] [address] [place] [address] Dr. Zuly Medina EGFR-AF ANGUILLAN 44 mL/min/1.73m2 Critically low >=60 [facility] Comment on above: Performed By: #### C A, CREA #### [facility] [address] [address] [address] Zuly Medina EGFR-NON AF ANGUILLAN 37 mL/min/1.73m2 Critically low >=60 [facility] Comment on above: Performed By: #### C A, CREA #### [facility] [address] [place] [address] Dr. Zuly Medina MRI LSPINE WO CONon [...] by: TESSA ESTEVES Date: 2022-06-02 07:58 Normal [facility] VC VENOUS REFLUX NOEL LMTon 0 05-30-2022 VC VENOUS REFLUX NOEL LMT Patient: ADRIANNA BUITRAGODexter Exam Date: 05/30/2022 : 1950 Gender:F Ordering : DR JENNY BURRIS . Admission #: [id number] Family : Order #: [id number] CLICK HERE TO VIEW EXAM RADIOLOGY REPORT [...] thrombus. Compressibility: Normal. Flow: Deep venous reflux. 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 Order #: [id number] CLICK HERE TO VIEW EXAM RADIOLOGY REPORT [...] Garcia M.D. on 05/27/2022 at 13:00 Normal [facility] XR LSPINE MIN 4 VIEWSon [...] by: WEI GARCIA Date: 2022-05-23 14:32 Normal [facility] Covid-19 PCR (CVDTB)on 05-07 SARS-CoV-2 (COVID-19) RNA MARY+probe Ql (Unsp spec) Not detected Normal NOT DETECTED [facility] Comment on above: Result Comment: This test is not yet approved or cleared by the [place] FDA. When there are no FDA-approved or cleared tests available, and other criteria are met, FDA can make tests available under an emergency access mechanism called an Emergency Use Authorization (EUA). The EUA for this test is supported by the [place] of Health and Human Service's (HHS's) [...] SARS-CoV-2. Performed By: #### C VDTBH #### [facility] [address] [place] [address] Dr. Zuly Medina INFLUENZA A AND B AGon 05-22 [facility] SEE BELOW Normal [facility] Comment on above: Result Comment: Nega tive for Flu A protein angiten. Infection due to Flu A cannot be ruled out. Flu A angiten in the sample may be below the detection limit of the test. Performed By: #### I NFLUAB #### [facility] [address] [place] [address] Dr. Zuly Medina INFLUBNEG SEE BELOW Normal [facility] Comment on above: Result Comment: Nega tive for Flu B protein antigen. Infection due to Flu B cannot be ruled out. Flu B antigen in the sample may be below the detection limit of the test. Performed By: #### I NFLUAB #### [facility] [address] [place] [address] Dr. Zuly Medina INFLUENZA A AG Negative Normal NEGATIVE SEE COMMENT [facility] Comment on above: Performed By: #### I NFLUAB #### [facility] [address] [address] [address] Zuly Medina INFLUENZA B AG Negative Normal NEGATIVE SEE COMMENT [facility] Comment on above: Performed By: #### I NFLUAB #### [facility] [address] [place], [place] [address] Dr. Zuly Medina ECHOCARDIO M/2D COMPLETEon 0 05-14-2022 ECHOCARDIO M/2D COMPLETE Patient: ADRIANNA BUITRAGO Exam Date: 05/14/2022 : 1950 Gender:F Ordering : JUANITA ROMEROAMINADUC Admission #: [id number] Family : DR JENNY BURRIS . Order #: [id number] CLICK HERE TO VIEW EXAM ECHOCARDIOGRAM REPORT [...] on 05/15/2022 at 18:51 Normal [facility] MAMM SCREEN 3D NOEL CADon 01-22-2022 MG MAMM SCREEN 3D NOEL CAD Patient: ADRIANNA BUITRAGODexter Exam Date: 01/22/2022 : 1950 Gender:F Ordering : DR JENNY BURRIS . Admission #: [id number] Family : Order #: [id number] CLICK HERE TO VIEW EXAM RADIOLOGY REPORT [...] at age 59. LOCATION: [facility] BREAST COMPOSITION: Scattered areas fibroglandular [...] Garcia M.D. on 01/22/2022 at 14:36 Normal [facility] CALCIUMon 12-31-2021 Calcium [Mass/Vol] 10.0 mg/dL Normal 8.5-10.1 [facility] Comment on above: Performed By: #### Oliverio SIMS [place] #### [facility] [address] [address] [address] Zuly Medina CREATININEon 12-31-2021 Creatinine [Mass/Vol] 1.33 mg/dL Critically high 0.55-1.02 [facility] Comment on above: Performed By: #### Oliverio SIMS [place] #### [facility] [address] [address] [address] Zuly Medina EGFR-AF ANGUILLAN 48 mL/min/1.73m2 Critically low >=60 [facility] Comment on above: Performed By: #### Oliverio SIMS [place] #### [facility] [address] [address] [address] Zuly Medina EGFR-NON AF ANGUILLAN 39 mL/min/1.73m2 Critically low >=60 [facility] Comment on above: Performed By: #### Oliverio SIMS [place] #### [facility] [address] [address] [address] Zuly Medina Covid-19 PCR (CVDTBH)on 12-06 SARS-CoV-2 (COVID-19) RNA MARY+probe Ql (Unsp spec) Not detected Normal NOT DETECTED [facility] Comment on above: Result Comment: This test is not yet approved or cleared by the [place] FDA. When there are no FDA-approved or cleared tests available, and other criteria are met, FDA can make tests available under an emergency access mechanism called an Emergency Use Authorization (EUA). The EUA for this test is supported by the [place] of Health and Human Service's (HHS's) declaration [...] SARS-CoV-2. Performed By: #### C VDTBH #### [facility] [address] [place] [address] Dr. Zuly Medina T4, T3U, FTI LABCORPon 11-15 Free Thyroxine Index 2.7 Normal 1.2-4.9 [facility] Comment on above: Performed By: #### C VDTBH #### [facility] [address] [place] [address] Dr. Zuly Medina T3 Uptake 32 % Normal 24-39 [facility] Comment on above: Performed By: #### C VDTBH #### [facility] [address] [place] [address] Dr. Zuly Medina T4 [Mass/Vol] 8.5 ug/dL Normal 4.5-12.0 [facility] Comment on above: Performed By: #### C VDTBH #### [facility] [address] [place] [address] Dr. Zuly Medina VIT D 25-OH LABCORPon 2021 Vitamin D, 25-Hydroxy 114.0 ng/mL Critically high 30.0-100.0 [facility] Comment on above: Result Comment: Jenny min D deficiency has been defined by the [place] of [employer] and an Endocrine Society practice guideline as a level of serum 25-OH vitamin D less than 20 ng/mL (1,2). The Endocrine Society went on to further define vitamin D insufficiency as a level between 21 and 29 ng/mL (2). 1. IOM ([place] of [employer]). 2010. Dietary reference intakes for calcium and D. Steve [place]: The National Academies Press. 2. Anel MF, Chandrika [place], Ronaldo MCCALLUM, et al. Evaluation, treatment, and prevention of vitamin D deficiency: an Endocrine Society clinical practice guideline. JCEM. 2010; 96(7):1911-30. Performed By: #### V ITADLC #### [facility] [address] [place] [address] Dr. Zuly Medina CBC AUTO DIFFon 11-14-2021 BASO # 0.0 103/ul Normal 0.0-0.1 [facility] Comment on above: Performed By: #### Oliverio SIMS CA #### [facility] [address] [address] [address] Zuly Medina Basophils/100 WBC (Bld) 0.4 % Normal 0.2-2.0 [facility] Comment on above: Performed By: #### Oliverio SIMS CA #### [facility] [address] [address] [address] Zuly Medina EO # 0.3 103/ul Normal 0.0-0.7 [facility] Comment on above: Performed By: #### Oliverio SIMS [place] #### [facility] [address] [address] [address] Zuly Medina Eosinophils/100 WBC (Bld) 4.1 % Normal 0.9-7.0 [facility] Comment on above: Performed By: #### Oliverio SIMS [place] #### [facility] [address] [address] [address] Zuly Medina Erythrocyte distribution width (RBC) [Ratio] 14.1 % Normal 11.0-15.0 [facility] Comment on above: Performed By: #### CHIDI MCDANIEL #### [facility] [address] [place] [address] Dr. Zuly Medina Hematocrit (Bld) [Volume fraction] 36.0 % Normal 36.0-48.0 [facility] Comment on above: Performed By: #### CHIDI MCDANIEL #### [facility] [address] [place] [address] Dr. Zuly Medina Hemoglobin (Bld) [Mass/Vol] 11.6 g/dL Critically low 12.0-16.0 [facility] Comment on above: Performed By: #### CHIDI MCDANIEL #### [facility] [address] [place] [address] Dr. Zuly Medina IG # 0.01 10e3/ul Normal 0.00-0.03 [facility] Comment on above: Performed By: #### CHIDI MCDANIEL #### [facility] [address] [place] [address] Dr. Zuly Medina IG % 0.1 % Normal 0.0-0.5 [facility] Comment on above: Performed By: #### CHIDI MCDANIEL #### [facility] [address] [place] [address] Dr. Zuly Medina LYMPH # 1.3 103/ul Normal 1.2-3.8 [facility] Comment on above: Performed By: #### CHIDI MCDANIEL #### [facility] [address] [place] [address] Dr. Zuly Medina Lymphocytes/100 WBC (Bld) 19.3 % Critically low 20.5-60.0 [facility] Comment on above: Performed By: #### CHIDI MCDANIEL #### [facility] [address] [place] [address] Dr. Zuly Medina MANUAL DIFF REQ NO Normal [facility] Comment on above: Performed By: #### CHIDI MCDANIEL #### [facility] [address] [place] [address] Dr. Zuly Medina MCH (RBC) [Entitic mass] 31.4 pg Normal 26.7-34.0 [facility] Comment on above: Performed By: #### CHIDI MCDANIEL #### [facility] [address] [place] [address] Dr. Zuly Medina MCHC (RBC) [Mass/Vol] 32.2 g/dL Normal 29.9-35.2 [facility] Comment on above: Performed By: #### CHIDI MCDANIEL #### [facility] [address] [place] [address] Dr. Zuly Medina MCV (RBC) [Entitic vol] 97.6 fL Normal 81.0-99.0 [facility] Comment on above: Performed By: #### CHIDI MCDANIEL #### [facility] [address] [place] [address] Dr. Zuly Medina MONO # 0.8 103/ul Normal 0.3-0.8 [facility] Comment on above: Performed By: #### CHIDI MCDANIEL #### [facility] [address] [place] [address] Dr. Zuly Medina Monocytes/100 WBC (Bld) 11.8 % Normal 1.7-12.0 [facility] Comment on above: Performed By: #### CHIDI MCDANIEL #### [facility] [address] [place] [address] Dr. Zuly Medina NEUT # 4.4 103/ul Normal 1.4-6.5 [facility] Comment on above: Performed By: #### CHIDI MCDANIEL #### [facility] [address] [place] [address] Dr. Zuly Medina Neutrophils/100 WBC (Bld) 64.3 % Normal 43.0-75.0 [facility] Comment on above: Performed By: #### CHIDI MCDANIEL #### [facility] [address] [place] [address] Dr. Zuly Medina Platelet mean volume (Bld) [Entitic vol] 10.1 fL Normal 9.5-13.5 [facility] Comment on above: Performed By: #### CHIDI MCDANIEL #### [facility] [address] [address] [address] Zuly Medina PLT 311 103/ul Normal 150-450 [facility] Comment on above: Performed By: #### CHIDI MCDANIEL #### [facility] [address] [address] [address] Zuly Medina RBC 3.69 106/ul Critically low 4.20-5.40 [facility] Comment on above: Performed By: #### CHIDI MCDANIEL #### [facility] [address] [address] [address] Zuly Medina WBC 6.9 103/ul Normal 4.0-11.0 [facility] Comment on above: Performed By: #### CHIDI MCDANIEL #### [facility] [address] [place] [address] Dr. Zuly Medina GLYCOHEMOGLOBIN A1Con 2021 ADA RECOMMENDATION SEE BELOW Normal [facility] Comment on above: Result Comment: ADA RECOMMENDED LIMIT 4.0 - 6.0 ADA THERAPEUTIC TARGET < 7.0 ACTION SUGGESTED > 7.0 Performed By: #### A 1C #### [facility] [address] [address] [address] Zuly Medina Glucose [Mass/Vol] 103 mg/dL Normal [facility] Comment on above: Performed By: #### A 1C #### [facility] [address] [place] [address] Dr. Zuly Medina HbA1c (Bld) [Mass fraction] 5.2 % Normal 4.5-6.2 [facility] Comment on above: Performed By: #### A 1C #### [facility] [address] [place] [address] Dr. Zuly Medina IRONon 11-14-2021 Iron [Mass/Vol] 60.0 ug/dL Normal 50.0-170.0 [facility] Comment on above: Performed By: #### C VDTBH #### [facility] [address] [address] [address] Zuly Medina LIPID PROFILEon 11-14-2021 CHOL-HDL RATIO NORM SEE BELOW Normal [facility] Comment on above: Result Comment: 3.3 - 4.4 LOW RISK 4.4 - 7.1 AVERAGE RISK 7.1 - 11.0 MODERATE RISK >11.0 HIGH RISK Performed By: #### CHIDI MCDANIEL #### [facility] [address] [address] [address] Zuly Medina Cholesterol [Mass/Vol] 145 mg/dL Normal <=200 [facility] Comment on above: Performed By: #### CHIDI MCDANIEL #### [facility] [address] [address] [address] Zuly Medina Cholesterol in HDL [Mass/Vol] 65 mg/dL Critically high 40-60 [facility] Comment on above: Performed By: #### CHIDI MCDANIEL #### [facility] [address] [address] [address] Zuly Medina Cholesterol in LDL [Mass/Vol] 72.2 mg/dL Normal [facility] Comment on above: Performed By: #### CHIDI MCDANIEL #### [facility] [address] [address] [address] Zuly Medina Cholesterol.total/Ch olesterol in HDL [Mass ratio] 2.2 {ratio} Normal [facility] Comment on above: Performed By: #### CHIDI MCDANIEL #### [facility] [address] [address] [address] Zuly Medina HDL NORMAL > or = 60 mg/dl - LO W CARDIOVASCULAR RISK <40 mg/dl - HIGH CARDIOVASCULAR RISK Normal [facility] Comment on above: Performed By: #### Oliverio SIMS, [place] #### [facility] [address] [address] [address] Zuly Medina LDL CALC NORMAL SEE BELOW Normal [facility] Comment on above: Result Comment: <100 mg/dl OPTIMAL 100 - 129 mg/dl NEAR OR ABOVE OPTIMAL 130 - 159 mg/dl BORDERLINE HIGH 160 - 189 mg/dl HIGH >190 mg/dl VERY HIGH Performed By: #### CHIDI MCDANIEL #### [facility] [address] [address] [address] Zuly Medina Triglyceride [Mass/Vol] 39 mg/dL Normal <=150 [facility] Comment on above: Performed By: #### CHIDI MCDANIEL #### [facility] [address] [place] [address] Dr. Zuly Medina VLDL CALC 7.8 mg/dL Normal [facility] Comment on above: Performed By: #### CHIDI MCDANIEL #### [facility] [address] [place] [address] Dr. Zuly Medina PROF 14(COMP METB)on 022 Albumin [Mass/Vol] 3.8 g/dL Normal 3.4-5.0 [facility] Comment on above: Performed By: #### CHIDI MCDANIEL #### [facility] [address] [place] [address] Dr. Zuly Medina Albumin/Globulin [Mass ratio] 1.4 {ratio} Normal [facility] Comment on above: Performed By: #### CHIDI MCDANIEL #### [facility] [address] [place] [address] Dr. Zuly Medina ALP [Catalytic activity/Vol] 41 U/L Critically low 46-116 [facility] Comment on above: Performed By: #### CHIDI MCDANIEL #### [facility] [address] [place] [address] Dr. Zuly Medina ALT [Catalytic activity/Vol] 20 U/L Normal 14-59 [facility] Comment on above: Performed By: #### CHIDI MCDANIEL #### [facility] [address] [place] [address] Dr. Zuly Medina Anion gap [Moles/Vol] 8.2 mmol/L Normal [facility] Comment on above: Performed By: #### CHIDI MCDANIEL #### [facility] [address] [place] [address] Dr. Zuly Medina AST [Catalytic activity/Vol] 25 U/L Normal 15-37 [facility] Comment on above: Performed By: #### CHIDI MCDANIEL #### [facility] [address] [place] [address] Dr. Zuly Medina Bilirubin [Mass/Vol] 0.4 mg/dL Normal 0.2-1.0 [facility] Comment on above: Performed By: #### CHIDI MCDANIEL #### [facility] [address] [place] [address] Dr. Zuly Medina Calcium [Mass/Vol] 10.1 mg/dL Normal 8.5-10.1 [facility] Comment on above: Performed By: #### CHIDI MCDANIEL #### [facility] [address] [address] [address] Zuly Medina Chloride [Moles/Vol] 104 mmol/L Normal 98-107 [facility] Comment on above: Performed By: #### CHIDI MCDANIEL #### [facility] [address] [place] [address] Dr. Zuly Medina CO2 [Moles/Vol] 31.6 mmol/L Normal 21.0-32.0 [facility] Comment on above: Performed By: #### CHIDI MCDANIEL #### [facility] [address] [place] [address] Dr. Zuly Medina Creatinine [Mass/Vol] 1.44 mg/dL Critically high 0.55-1.02 [facility] Comment on above: Performed By: #### CHIDI MCDANIEL #### [facility] [address] [place] [address] Dr. Zuly Medina EGFR-AF ANGUILLAN 43 mL/min/1.73m2 Critically low >=60 [facility] Comment on above: Performed By: #### CHIDI MCDANIEL #### [facility] [facility] [address] [place] [address] Dr. Zuly Medina EGFR-NON AF ANGUILLAN 36 mL/min/1.73m2 Critically low >=60 [facility] Comment on above: Performed By: #### CHIDI MCDANIEL #### [facility] [address] [place] [address] Dr. Zuly Medina Globulin (S) [Mass/Vol] 2.8 g/dL Normal [facility] Comment on above: Performed By: #### CHIDI MCDANIEL #### [facility] [address] [address] [address] Zuly Medina Glucose [Mass/Vol] 100 mg/dL Normal 74-106 [facility] Comment on above: Performed By: #### CHIDI MCDANIEL #### [facility] [address] [place] [address] Dr. Zuly Medina Potassium [Moles/Vol] 3.8 mmol/L Normal 3.5-5.1 [facility] Comment on above: Performed By: #### CHIDI MCDANIEL #### [facility] [address] [place] [address] Dr. Zuly Medina Protein [Mass/Vol] 6.6 g/dL Normal 6.4-8.2 [facility] Comment on above: Performed By: #### Oliverio SIMS [place] #### [facility] [address] [place] [address] Dr. Zuly Medina Sodium [Moles/Vol] 140 mmol/L Normal 136-145 [facility] Comment on above: Performed By: #### CHIDI MCDANIEL #### [facility] [address] [address] [address] Zuly Medina Urea nitrogen [Mass/Vol] 28.0 mg/dL Critically high 7.0-18.0 [facility] Comment on above: Performed By: #### CHIDI MCDANIEL #### [facility] [address] [place] [address] Dr. Zuly Medina Urea nitrogen/Creatinine [Mass ratio] 19.4 mg/mg Normal [facility] Comment on above: Performed By: #### Oliverio SIMS [place] #### [facility] [address] [place] [address] Dr. Zuly Medina TSHon 11-14-2021 TSH 1.676 uIU/mL Normal 0.358-3.740 [facility] Comment on above: Performed By: #### Oliverio SIMS [place] #### [facility] [address] [place] [address] Dr. Zuly Medina [facility]-05 SARS-CoV-2 (COVID-19) RNA MARY+probe Ql (Unsp spec) Not detected Normal NOT DETECTED [facility] Comment on [...] for this test is supported by the [place] Operator of Health and Human Service's declaration that [...] used). Performed By: #### C VDTBH #### [facility] [address] [place] [address] Dr. Zuly Medina CREATININEon 09-18-2021 Creatinine [Mass/Vol] 1.33 mg/dL Critically high 0.55-1.02 [facility] Comment on above: Performed By: #### CHIDI MCDANIEL #### [facility] [address] [place] [address] Dr. Zuly Medina EGFR-AF ANGUILLAN 48 mL/min/1.73m2 Critically low >=60 [facility] Comment on above: Performed By: #### CHIDI MCDANIEL #### [facility] [address] [place] [address] Dr. Zuly Medina EGFR-NON AF ANGUILLAN 39 mL/min/1.73m2 Critically low >=60 [facility] Comment on above: Performed By: #### CHIDI MCDANIEL #### [facility] [address] [place] [address] Dr. Zuly Medina MRI BRAIN WO W [...] WEI GARCIA Date: 2021-09-18 16:23 Normal [facility] Covid-19 PCR ([facility])on 08-05 SARS-CoV-2 (COVID-19) RNA MARY+probe Ql (Unsp spec) Not detected Normal NOT DETECTED [facility] Comment on above: Result Comment: This test is not yet approved or cleared by the [place] FDA. When there are no FDA-approved or cleared tests available, and other criteria are met, FDA can make tests available under an emergency access mechanism called an Emergency Use Authorization (EUA). The EUA for this test is supported by the [place] of Health and Human Service's (HHS's) declaration [...] SARS-CoV-2. Performed By: #### C VDTB #### [facility] [address] [place] [address] Dr. Zuly Medina SYMPTOMATIC COVID-19 ANTIGEN on 08-23-2021 EUA Statement SEE BELOW Normal [facility] Comment on above: Result Comment: This [...] sooner. Performed By: #### C VDTBH #### [facility] [address] [place] [address] Dr. Zuly Medina SARS-CoV-2 (COVID-19) RNA MARY+probe Ql (Unsp spec) Negative Normal NEGATIVE [facility] Comment on above: Performed By: #### C VDTBH #### [facility] [address] [place], [place] [id number] Dr. Zuly Medina Q - Diptheria/Tetanus Abon 0 08-09-2021 DIPHTHERIA ANTITOXOID 0.25 IU/mL Normal [facility] Enforcement Safety Officer Comment on above: Order Comment: [facility] performed at: [employer], [facility], [address], [place], [place], , Documentation Designer: Sahil Dyson M.D.,PhD [facility] Date/Time: [...] analytical performance characteristics have been determined by [facility] [place], [place]. It has not been cleared or approved by the U.S. Food and Drug Administration. This assay has been validated pursuant to the CLIA regulations and is used for clinical purposes. Performed By: #### 2 4729W, 76365B, 72149, 34721T, 36379E, 31860D #### [facility] [address] [place] [address] TETANUS ANTITOXOID 4.67 IU/mL Normal [place] Enforcement Safety Officer Comment on above: Order Comment: [facility] performed at: [facility], [facility], [address], [place], [place], , Documentation Designer: Sahil Dyson M.D.,PhD [facility] Date/Time: [...] analytical performance characteristics have been determined by [facility] [place]. It has not been cleared or approved by the U.S. Food and Drug Administration. This assay has been validated pursuant to the CLIA regulations and is used for clinical purposes. Performed By: #### 2 4729W, 25558X, 92345, 91221V, 73999V, 93761M #### [facility] [address] [place] [address] Q - IGA,SERUMon 08-09-2021 IMMUNOGLOBULIN A 125 mg/dL Normal 70-320 [facility] Specialist Comment on above: Order Comment: [facility] performed at: [employer], [facility], [address] [facility], [address] [place] [address], [address] [place] [address], Documentation Designer: Thony Haley MD [facility] Date/Time: [facility] Results Received Date/Time: [facility] Reported Date/Time: Performed By: #### 2 4729W, 13955X, 93818, 63340Z, 83267X, 63697K #### [facility] [address] [place] [address] Q - IGE,SERUMon 08-09-2021 IMMUNOGLOBULIN E 44 kU/L Normal [facility] Specialist Comment on above: Order Comment: [facility] performed at: [employer], [facility], [address] [facility], [address] [place] [address], [address] [place] [address], Documentation Designer: Thony Haley MD [facility] Date/Time: [facility] Received Date/Time: [facility] Reported Date/Time: Performed By: #### 2 4729W, 24420U, 19999, 50856L, 64700Q, 82422Z #### [facility] [address] [place] [address] Q - IGG,SERUMon 08-09-2021 IMMUNOGLOBULIN G 895 mg/dL Normal 600-1540 [facility] Enforcement Safety Officer Comment on above: Order Comment: [facility] performed at: [employer], [facility], [address] , [address] [place] [address], [address] [place] [address], Documentation Designer: Thony Haley MD [facility] Date/Time: [facility] Results Received Date/Time: [facility] Reported Date/Time: Performed By: #### 2 4729W, 13455C, 71712, 12807Z, 39373U, 82612U #### [facility] [address] [place] [address] Q - IGM,SERUMon 08-09-2021 IMMUNOGLOBULIN M 158 mg/dL Normal 50-300 [facility] Specialist Comment on above: Order Comment: [facility] performed at: Q, [facility], [address], [address] [place], [address], Documentation Designer: Thony Haley MD [facility] Date/Time: [facility] Results Received Date/Time: [facility] Reported Date/Time: Performed By: #### 2 4729W, 44114E, 46416, 71952L, 70298F, 08808T #### [facility] [address] [place] [address] Q - Strep pneumo Ab 23 serot ypeson 08-09-2021 SEROTYPE 1 (1) 9.5 Normal [facility] Comment on above: Order Comment: [facility] performed at: EZ, [facility],, [address] [place], [place], , Documentation Designer: Osiris Galdamez MD,PhD,BHANU [facility] Date/Time: [facility] Results Received Date/Time: [facility] Reported Date/Time: Performed By: #### 2 4729W, 12148T, 20916, 43736V, 08575G, 69790G #### [facility] [address] [place] [address] SEROTYPE 12 (12F) 1.0 Normal [facility] Comment on above: Order Comment: [facility] performed at: nodila, [employer],, [address] [place], [place], , Documentation Designer: Osiris Galdamez MD,PhD,BHANU [facility] Date/Time: [facility] Results Received Date/Time: [facility] Reported Date/Time: Performed By: #### 2 4729W, 73936C, 08820, 13250V, 28834K, 31868X #### [facility] [address] [place] [address] SEROTYPE 14 (14) 3.3 Normal [facility] Comment on above: Order Comment: [facility] performed at: EZ, [facility] [facility],, [employer] [place], [place], , Documentation Designer: Osiris Galdamez MD,PhD,BHANU [facility] Date/Time: [facility] Results Received Date/Time: [facility] Reported Date/Time: Performed By: #### 2 4729W, 42658Z, 18665, 87736N, 29269C, 90413M #### [facility] [address] [place] [address] SEROTYPE 17 (17F) 1.2 Normal [facility] Comment on above: Order Comment: [facility] performed at: EZ, [employer] [facility],, [employer] [place], [place], , Documentation Designer: Osiris Galdamez MD,PhD,BHANU [facility] Date/Time: [facility] Results Received Date/Time: [facility] Reported Date/Time: Performed By: #### 2 4729W, 13671V, 02725, 32527V, 62724X, 79123Z #### [facility] [address] [place] [address] SEROTYPE 19 (19F) 2.8 [facility] Comment on above: Order Comment: [facility] performed at: EZ, [employer] [facility],, [address] [place], [place], , Documentation Designer: Osiris Galdamez MD,PhD,BHANU [facility] Date/Time: [facility] Results Received Date/Time: [facility] Reported Date/Time: Performed By: #### 2 4729W, 81771W, 82744, 14409C, 68580V, 06106K #### [facility] [address] [place] [address] SEROTYPE 2 (2) 7.2 Normal [facility] Specialist Comment on above: Order Comment: [facility] performed at: EZ, [employer] [facility],, [address] [place], [place], , Documentation Designer: Osiris Galdamez MD,PhD,BHANU [facility] Date/Time: [facility] Results Received Date/Time: [facility] Reported Date/Time: Performed By: #### 2 4729W, 54254C, 35994, 45035N, 22077E, 71444C #### [facility] [address] [place] [address] SEROTYPE 20 (20) 3.4 Normal [facility] Specialist Comment on above: Order Comment: [facility] performed at: EZ, [employer] [facility],, [address] [place], [place] [address], , Documentation Designer: Osiris Galdamez MD,PhD,BHANU [facility] Date/Time: [facility] Results Received Date/Time: [facility] Reported Date/Time: Performed By: #### 2 4729W, 60750J, 21091, 25433X, 93184K, 47617O #### [facility] [address] [place] [address] SEROTYPE 22 (22F) 5.9 Normal [facility] Comment on above: Order Comment: [facility] performed at: EZ, [facility],, [address] [place], [place], , Documentation Designer: Osiris Galdamez MD,PhD,HBANU [facility] Date/Time: [facility] Results Received Date/Time: [facility] Reported Date/Time: Performed By: #### 2 4729W, 10389N, 17688, 30448V, 68761F, 93052D #### [facility] [address] [place] [address] SEROTYPE 23 (23F) 5.2 Normal [facility] Comment on above: Order Comment: [facility] performed at: EZ, [facility],, [address] [place], [place], , Documentation Designer: Osiris Galdamez MD,PhD,BHANU [facility] Date/Time: [facility] Results Received Date/Time: [facility] Reported Date/Time: Performed By: #### 2 4729W, 04152R, 96562, 28191K, 24638L, 32061D #### [facility] [address] [place] [address] SEROTYPE 26 (6B) 18.8 Normal [facility] Comment on above: Order Comment: [facility] performed at: EZ, [facility],, [address] [place], [place] [address] [place], , Documentation Designer: Osiris Galdamez MD,PhD,BHANU [facility] Date/Time: [facility] Results Received Date/Time: [facility] Reported Date/Time: Performed By: #### 2 4729W, 37536X, 34452, 03278C, 12470Q, 90553H #### [facility] [address] [place] [address] SEROTYPE 3 (3) 1.3 Normal [facility] Enforcement Safety Officer Comment on above: Order Comment: [facility] performed at: EZ, [facility],, [address] [place], [place], , Documentation Designer: Osiris Galdamez MD,PhD,BHANU [facility] Date/Time: [facility] Results Received Date/Time: [facility] Reported Date/Time: Performed By: #### 2 4729W, 79236V, 91099, 24958X, 84391O, 79442S #### [facility] [address] [place] [address] SEROTYPE 34 (10A) 0.9 Normal [facility] Comment on above: Order Comment: [facility] performed at: nodila, [facility],, [address] [place] [address], , Documentation Designer: Osiris Galdamez MD,PhD,BHANU [facility] Date/Time: [facility] Results Received Date/Time: [facility] Reported Date/Time: Performed By: #### 2 4729W, 90398R, 07378, 09414D, 30109M, 88713E #### [facility] [address] [place] [address] SEROTYPE 4 (4) <0.3 [facility] Specialist Comment on above: Order Comment: [facility] performed at: [employer], [facility],, [address] [place] [address], , Documentation Designer: Osiris Galdamez MD,PhD,BHANU [facility] Date/Time: [facility] Results Received Date/Time: [facility] Reported Date/Time: Performed By: #### 2 4729W, 90138A, 08391, 96066X, 93771N, 99190R #### [facility] Default [address] [place] [address] SEROTYPE 43 (11A) 1.[address] [facility] Specialist Comment on above: Order Comment: [facility] performed at: EZ, [facility],, [address] [place] [address], , Documentation Designer: Osiris Galdamez MD,PhD,BHANU [facility] Date/Time: [facility] Results Received Date/Time: [facility] Reported Date/Time: Performed By: #### 2 4729W, 39755N, 51396, 04620K, 63006T, 51509O #### [facility] [address] [place] [address] SEROTYPE 5 (5) 2.3 Normal [facility] Specialist Comment on above: Order Comment: [facility] performed at: nodila, [facility],, [address] [place] [address], , Documentation Designer: Osiris Galdamez MD,PhD,BHANU [facility] Date/Time: [facility] Results Received Date/Time: [facility] Reported Date/Time: Performed By: #### 2 4729W, 23508I, 26506, 82202B, 74136B, 88181G #### [facility] Default [address] [place] [address] SEROTYPE 51 (7F) 8.4 [facility] Specialist Comment on above: Order Comment: [facility] performed at: nodila, [employer],, [address] [place] [address], , Documentation Designer: Osiris Galdamez MD,PhD,BHANU [facility] Date/Time: [facility] Results Received Date/Time: [facility] Reported Date/Time: Performed By: #### 2 4729W, 26973C, 13634, 09081M, 71080A, 64279R #### [facility] Default [address] [place] [address] SEROTYPE 54 (15B) 2.3 Normal [facility] Specialist Comment on above: Order Comment: [facility] performed at: EZ, [facility],, [address] [place], [place], , Documentation Designer: Osiris Galdamez MD,PhD,BHANU [facility] Date/Time: [facility] Results Received Date/Time: [facility] Reported Date/Time: Performed By: #### 2 4729W, 54746K, 58089, 31112O, 24666I, 96258A #### [facility] Default [address] [place] [address] SEROTYPE 56 (18C) 18.7 [facility] Comment on above: Order Comment: [facility] performed at: EZ, [employer] [facility],, [address], [place], [place], , Documentation Designer: Osiris Galdamez MD,PhD,BHANU [facility] Date/Time: [facility] Results Received Date/Time: [facility] Reported Date/Time: Performed By: #### 2 4729W, 66480I, 01492, 92645N, 67001X, 32454H #### [facility] [address] [place] [address] SEROTYPE 57 (19A) 15.6 [facility] Comment on above: Order Comment: [facility] performed at: EZ, [employer] [facility],, [address], [place], [place], , Documentation Designer: Osiris Galdamez MD,PhD,BHANU [facility] Date/Time: [facility] Results Received Date/Time: [facility] Reported Date/Time: Performed By: #### 2 4729W, 55182H, 56079, 11367Q, 12671N, 22518F #### [facility] [address] [place] [address] SEROTYPE 68 (9V) 2.1 Normal [facility] Comment on above: Order Comment: [facility] performed at: nodila, [facility],, [address] [place] [address], , Documentation Designer: Osiris Galdamez MD,PhD,BHANU [facility] Date/Time: [id number] [facility] Results Received Date/Time: [facility] Reported Date/Time: Performed By: #### 2 4729W, 48210B, 76451, 48132J, 99934G, 01941O #### [facility] [address] [place] [address] SEROTYPE 70 (33F) 28.9 Normal [facility] Comment on above: Order Comment: [facility] performed at: nodila, [facility],, [address] [place] [address], , Documentation Designer: Osiris Galdamez MD,PhD,BHANU [facility] Date/Time: [...] serotype-specific titers may have less robust responses. [facility] uses a multi-analyte immunodetection (MAID) method. The method employs the [employer] flow cytometric system which measures multiple analytes [...] analytical performance characteristics have been determined by [facility]. It has not been cleared or approved by FDA. This assay has been validated pursuant to the CLIA regulations and used for clinical purposes. For additional information, please refer to http://education.Packet [employer]/faq/APH881 (This link is being provided for informational/ educational purposes only.) Performed By: #### 2 4729W, 64665M, 21557, 33101Z, 09149W, 94991Z #### [facility] Default [address] [place] [address] SEROTYPE 8 (8) 14.6 Normal [facility] Enforcement Safety Officer Comment on above: Order Comment: [facility] performed at: [facility],, [address] [place] [address], , Documentation Designer: Osiris Galdamez MD,PhD,BHANU [facility] Date/Time: [facility] Results Received Date/Time: [facility] Reported Date/Time: Performed By: #### 2 4729W, 94220X, 92987, 85880C, 93522H, 12951I #### [facility] Default [address] [place] [address] SEROTYPE 9 (9N) 1.0 Normal [facility] Enforcement Safety Officer Comment on above: Order Comment: [facility] performed at: nodila, [facility],, [address] [place] [address], , Documentation Designer: Osiris Galdamez MD,PhD,BHANU [facility] Date/Time: [id number] [facility] Received Date/Time: [facility] Reported Date/Time: Performed By: #### 2 4729W, 59679F, 85026, 25518G, 38554F, 67464P #### [facility] [address] [place] [address] CT SINUSES WO CONon 08-06-[address] [...] by: WEI GARCIA Date: 2021-08-05 08:48 Normal [facility] MG MAMM DX 3D LT CADon 08-05 MG MAMM DX 3D LT CAD Patient: ADRIANNA BUITRAGO Exam Date: 08/05/2021 : 1950 Gender:F Ordering : DR JENNY BURRIS . Admission #: [id number] Family : Order #: [id number] CLICK HERE TO VIEW EXAM RADIOLOGY REPORT [...] at age 59. LOCATION: [facility] BREAST COMPOSITION: Scattered areas fibroglandular [...] M.D. on 08/05/2021 at 09:25 Normal [facility] US BREAST LEFT LIMITEDon US BREAST LEFT LIMITED Patient: ADRIANNA BUITRAGODexter Exam Date: 08/05/2021 : 1950 Gender:F Ordering : DR JENNY BURRIS . Admission #: [id number] Family : Order #: [id number] CLICK HERE TO VIEW EXAM RADIOLOGY REPORT [...] at age 59. LOCATION: [facility] BREAST COMPOSITION: Scattered areas fibroglandular [...] M.D. on 08/05/2021 at 09:25 Normal [facility] Vital Signs Date Time Vital Sign Value Performing Clinician Evelyni von 11-17-2024 13:13-0400 Body height 160 cm Renny COREYM Work Phone: [facility] 11-17-2024 13:13-0400 Body mass index (BMI) [Ratio] 22.85 kg/m2 Renny Orlando DPM Work Phone: [facility] 11-17-2024 13:13-0400 Body weight 58.51 kg Renny Orlando DPM Work Phone: [facility] 11-17-2024 13:13-0400 Respiratory rate 16 /min Renny Orlando DPM Work Phone: [facility] 11-03-2024 09:38-0400 Body height 160 cm Renny Orlando DPM Work Phone: [facility] 11-03-2024 09:38-0400 Body mass index (BMI) [Ratio] 22.85 kg/m2 Renny Brown DPM Work Phone: [facility] 11-03-2024 09:38-0400 Body weight 58.51 kg Renny Brown DPM Work Phone: [facility] 11-03-2024 09:38-0400 Respiratory rate 16 /min Renny Brown DPM Work Phone: [facility] 10-20-2024 11:45-0400 Body height 160 cm Renny Brown DPM Work Phone: [facility] 10-20-2024 11:45-0400 Body mass index (BMI) [Ratio] 22.85 kg/m2 Renny Brown DPM Work Phone: [facility] 10-20-2024 11:45-0400 Body weight 58.51 kg Renny Brown DPM Work Phone: [facility] 10-20-2024 11:45-0400 Respiratory rate 18 /min Renny Brown DPM Work Phone: [facility] 06-16-2024 08:48-0400 Body height 160 cm Renny Brown DPM Work Phone: [facility] 06-16-2024 08:48-0400 Body mass index (BMI) [Ratio] 22.85 kg/m2 Renny Brown DPM Work Phone: [facility] 06-16-2024 08:48-0400 Body weight 58.51 kg Renny Brown DPM Work Phone: [facility] 06-16-2024 08:48-0400 Respiratory rate 18 /min Renny Brown DPM Work Phone: [facility] 02-11-2024 08:33-0500 Body height 160 cm Renny Brown DPM Work Phone: [facility] 02-11-2024 08:33-0500 Body mass index (BMI) [Ratio] 22.85 kg/m2 Renny Brown DPM Work Phone: [facility] 02-11-2024 08:33-0500 Body weight 58.51 kg Renny Orlando DPM Work Phone: [facility] 02-11-2024 08:33-0500 Diastolic blood pressure 80 mm[Hg] Renny Orlando DPM Work Phone: [facility] 02-11-2024 08:33-0500 Heart rate 81 /min Renny Brown DPM Work Phone: [facility] 02-11-2024 08:33-0500 Systolic blood pressure 126 mm[Hg] Renny Brown DPM Work Phone: [facility] 01-28-2024 08:34-0400 Body height 160 cm Renny Orlando DPM Work Phone: [facility] 01-28-2024 08:34-0400 Body mass index (BMI) [Ratio] 22.85 kg/m2 Renny Darion DPM Work Phone: [facility] 01-28-2024 08:34-0400 Body weight 58.51 kg Renny Orlando DPM Work Phone: [facility] 01-28-2024 08:34-0400 Diastolic blood pressure 80 mm[Hg] Renny Orlando DPM Work Phone: [facility] 01-28-2024 08:34-0400 Heart rate 81 /min Renny Orlando DPM Work Phone: [facility] 01-28-2024 08:34-0400 Systolic blood pressure 128 mm[Hg] Renny Brown DPM Work Phone: [facility] 01-14-2024 08:38-0400 Body height 160 cm Renny Brown DPM Work Phone: [facility] 01-14-2024 08:38-0400 Body mass index (BMI) [Ratio] 22.85 kg/m2 Renny Brown DPM Work Phone: [facility] 01-14-2024 08:38-0400 Body weight 58.51 kg Renny Orlando DPM Work Phone: [facility] 01-14-2024 08:38-0400 Respiratory rate 18 /min Renny Brown DPM Work Phone: [facility] 12-31-2023 09:01-0400 Body height 160 cm Renny Orlando DPM Work Phone: [facility] 12-31-2023 09:01-0400 Body mass index (BMI) [Ratio] 22.85 kg/m2 Renny Brown DPM Work Phone: [facility] 12-31-2023 09:01-0400 Body weight 58.51 kg Renny Brown DPM Work Phone: [facility] 12-31-2023 09:01-0400 Diastolic blood pressure 75 mm[Hg] Renny Orlando DPM Work Phone: [facility] 12-31-2023 09:01-0400 Heart rate 75 /min Renny Brown DPM Work Phone: [facility] 12-31-2023 09:01-0400 Respiratory rate 18 /min Renny Darion DPM Work Phone: [facility] 12-31-2023 09:01-0400 Systolic blood pressure 126 mm[Hg] Renny Orlando DPM Work Phone: [facility] 12-17-2023 08:41-0400 Body height 160 cm Renny Brown DPM Work Phone: [facility] 12-17-2023 08:41-0400 Body mass index (BMI) [Ratio] 22.85 kg/m2 Renny Brown DPM Work Phone: [facility] 12-17-2023 08:41-0400 Body weight 58.51 kg Renny Brown DPM Work Phone: [facility] 12-17-2023 08:41-0400 Diastolic blood pressure 74 mm[Hg] Renny Orlando DPM Work Phone: [facility] 12-17-2023 08:41-0400 Heart rate 82 /min Renny Orlando DPM Work Phone: [facility] 12-17-2023 08:41-0400 Systolic blood pressure 125 mm[Hg] Renny Orlando DPM Work Phone: [facility] 12-15-2023 08:08-0400 Body height 160 cm Sandeep Pleitez PROVIDER CONTRACTING CONSULTANT Work Phone: [facility] 12-15-2023 08:08-0400 Body mass index (BMI) [Ratio] 22.82 kg/m2 Sandeep Pleitez PROVIDER CONTRACTING CONSULTANT Work Phone: [facility] 12-15-2023 08:08-0400 Body weight 58.42 kg Sandeep Pleitez PROVIDER CONTRACTING CONSULTANT Work Phone: [facility] 12-15-2023 08:08-0400 Diastolic blood pressure 70 mm[Hg] Sandeep Condonoll PROVIDER CONTRACTING CONSULTANT Work Phone: [facility] 12-15-2023 08:08-0400 Systolic blood pressure 118 mm[Hg] Sandeep Condonoll PROVIDER CONTRACTING CONSULTANT Work Phone: [facility] 12-03-2023 09:18-0400 Body height 160 cm Renny Orlando DPM Work Phone: [facility] 12-03-2023 09:18-0400 Body mass index (BMI) [Ratio] 22.5 kg/m2 Renny Orlando DPM Work Phone: [facility] 12-03-2023 09:18-0400 Body weight 57.61 kg Renny Orlando DPM Work Phone: [facility] 12-03-2023 09:18-0400 Diastolic blood pressure 79 mm[Hg] Renny Orlando DPM Work Phone: [facility] 12-03-2023 09:18-0400 Heart rate 78 /min Renny Orlando DPM Work Phone: [facility] 12-03-2023 09:18-0400 Systolic blood pressure 128 mm[Hg] Renny Orlando DPM Work Phone: [facility] Healthcare Encounters Encounter Date Encounter Type Care Provider Facility Start: 11-17-2024 End: 11-17-2024 Bamboo flowsheet Renny Orlando DPM Work Phone: [facility] Start: 11-17-2024 End: 11-17-2024 Bamboo flowsheet Renny Orlando DPM Work Phone: [facility] Start: 11-17-2024 End: 11-17-2024 Office outpatient visit 15 minutes Renny Orlando DPM Work Phone: [facility] Comment on above: Tinea corporis (Prim tierra Dx); Verruca plantaris; Foot pain, right; Foot pain, left Start: 11-17-2024 End: 11-17-2024 ambulatory RENNY ORLANDO Not Available Start: 11-07-2024 End: 11-07-[address] [facility] Start: 11-03-2024 End: 11-03-2024 Bamboo flowsheet Renny Orlando DPM Work Phone: [facility] Start: 11-03-2024 End: 11-03-2024 Bamboo flowsheet Renny Orlando DPM Work Phone: [facility] Start: 11-03-2024 End: 11-03-2024 Office outpatient visit 15 minutes Renny Orlando DPM Work Phone: [facility] Comment on above: Tinea [...] Not Available Start: 04-29-2024 End: 04-29-2024 ambulatory [facility] Start: 04-07-2024 End: 04-07-2024 Bamboo flowsjaylon [...] Bamboo flowsheet Renny Orlando DPM Work Phone: [facility] Start: 02-11-2024 End: 02-11-2024 Bamboo flowsheet Renny Frank Brown DPM Work Phone: [facility] Start: 02-11-2024 End: 02-11-2024 Patient encounter procedure Renny Frank Darion DPM Work Phone: [facility] Comment on above: Verruca plantaris (P rimary Dx); Foot pain, right; Foot pain, left Start: 02-11-2024 End: 02-11-2024 ambulatory RENNY ORLANDO Not Available Start: 01-28-2024 End: 01-28-2024 Bamboo flowsheet Renny Frank Brown DPM Work Phone: [facility] Start: 01-28-2024 End: 01-28-2024 Bamboo flowsheet Renny Frank Brown DPM Work Phone: [facility] Start: 01-28-2024 End: 01-28-2024 Patient encounter procedure Renny Orlando DPM Work Phone: [facility] Comment on above: Verruca plantaris (P rimary Dx); Foot pain, right; Foot pain, left Start: 01-28-2024 End: 01-28-2024 ambulatory RENNY ORLANDO Not Available Start: 01-14-2024 End: 01-14-2024 Bamboo flowsheet Renny Frank Brown DPM Work Phone: [facility] Start: 01-14-2024 End: 01-14-2024 Bamboo flowsheet Renny Frank Brown DPM Work Phone: [facility] Start: 01-14-2024 End: 01-14-2024 Patient encounter procedure Renny Frank Orlando DPM Work Phone: [facility] Comment on above: Verruca plantaris (P rimary Dx); Foot pain, right; Foot pain, left Start: 01-14-2024 End: 01-14-2024 ambulatory RENNY Frank DARION Not Available Start: 12-31-2023 End: 12-31-2023 Bamboo flowsheet Renny Frank Darion DPM Work Phone: [facility] Start: 12-31-2023 End: 12-31-2023 Bamboo flowsheet Renny Marie Darion DPM Work Phone: [facility] Start: 12-31-2023 End: 12-31-2023 Patient encounter procedure Renny Marie Darion DPM Work Phone: [facility] Comment on above: Verruca plantaris (P rimary Dx); Foot pain, right; Foot pain, left Start: 12-31-2023 End: 12-31-2023 ambulatory RENNY Frank DARION Not Available Start: 12-17-2023 End: 12-17-2023 Bamboo flowsheet Renny A Darion DPM Work Phone: [facility] Start: 12-17-2023 End: 12-17-2023 Bamboo flowsheet Renny Marie Darion DPM Work Phone: [facility] Start: 12-17-2023 End: 12-17-2023 Patient encounter procedure Renny Orlando DPM Work Phone: [facility] Comment on above: Verruca plantaris (P rimary Dx); Foot pain, right; Onychomycosis; Toe pain, bilateral; Xerosis cutis; Foot pain, left Start: 12-17-2023 End: 12-17-2023 ambulatory RENNY Frank DARION Not Available Start: 12-15-2023 End: 12-15-2023 Bamboo flowsheet Sandeep Pleitez PROVIDER CONTRACTING CONSULTANT Work Phone: [facility] Start: 12-15-2023 End: 12-15-2023 Bamboo flowsheet Sandeep Pleitez PROVIDER CONTRACTING CONSULTANT [facility] [address] Start: 12-15-2023 End: 12-15-2023 Office outpatient visit 15 minutes Sandeep Pleitez PROVIDER CONTRACTING CONSULTANT [facility] Comment on above: Migraine with aura [...] encounter procedure Renny Orlando DPM Work Phone: [facility] Comment on above: Verruca plantaris (P rimary Dx); Foot pain, right; Foot pain, left; Onychomycosis; Toe pain, bilateral; Xerosis cutis Start: 12-03-2023 End: 12-03-2023 ambulatory RENNY ORLANDO Not Available Start: 08-05-2023 End: 08-06-2023 ambulatory Issa VALE Facility:[id number] Start: 06-09-2023 End: 06-10-2023 ambulatory [...] [address] [place] [address] Renny Orlando DPM [address] [address] Verruca plantaris (Primary Dx); Foot pain, right; [...] EDT Office Visit [facility] [address] [address] Renny Orlando DPM [address] [address] Verruca plantaris (Primary Dx); Foot pain, right; Foot pain, left [facility] Comment on above: Verruca plantaris (P rimary Dx); Foot pain, right; Foot pain, left Start: 08-25-2024 End: 08-25-2024 Patient encounter procedure 08/25/2024 9:10 AM EDT Procedure Visit [facility] [address] [address] Renny Orlando DPM [address] [address] [facility] Start: 04-18-2024 End: 04-18-2024 Patient encounter procedure 04/18/2024 9:20 AM EST Office Visit [facility] [address] [place] [phone] Keila Faith MD [address] [place] [address] [facility] Start: 04-07-2024 End: 04-07-2024 Patient encounter procedure 04/07/2024 9:20 AM EST Office Visit [facility] [address] [facility] [address] [place] [address] Keila Faith MD [address] [facility] [address] [place] [address] Arrived [facility] Comment on above: [...] Office Visit [facility] [address] [phone] Renny Orlando DPM [address] [address] Verruca plantaris (Primary Dx); Foot pain, right; Foot pain, left [facility] Comment on above: Verruca plantaris (P rimary Dx); Foot pain, right; Foot pain, left Start: 12-31-2023 End: 12-31-2023 Patient encounter procedure 12/31/2023 9:10 AM EDT Office Visit [facility] [address] [phone] Renny Orlando DPM [address] [address] Verruca plantaris (Primary Dx); Foot pain, right; [...] procedure 12/14/2023 9:20 AM EDT [facility] [address] [facility] [address] [place] [address] Keila Faith MD [address] [address] [facility] Start: 12-06-2023 Influenza vaccination Influenza Vacc ine (#1) [facility] Start: 12-03-2023 End: 12-03-2023 Patient encounter procedure 12/03/2023 9:30 AM EDT Procedure Visit [facility] [address] [address] Renny Orlando DPM [address] [facility] [address] [place] [address] Verruca plantaris (Primary Dx); Foot pain, right; Foot pain, left; Onychomycosis; Toe pain, bilateral; Xerosis cutis [facility] Comment on above: Verruca plantaris (P rimary Dx); Foot pain, right; Foot pain, left; Onychomycosis; Toe pain, bilateral; Xerosis cutis Start: 05-14-2023 End: 05-14-2023 Patient encounter procedure 05/14/2023 8:40 AM EST Office Visit [facility] [address] [address] Renny Orlando, DPSobia [address] [address] [facility] Start: 12-05-2022 Influenza vaccination Influenza Vacc ine (#1) [facility] Start: 10-27-2018 Pneumococcal Vaccine : 65+ Years (2 - PPSV23 or PCV20) Pneumococcal Vaccine: 65+ Years (2 - PPSV23 or PCV20) [facility] Start: 10-27-2018 Pneumococcal Vaccine : 65+ Years (2 of 2 - PPSV23 or PCV20) Pneumococcal Vaccine: 65+ Years (2 of 2 - PPSV23 or PCV20) [facility] Start: 10-27-2018 Pneumococcal Vaccine : 65+ Years (2 of 2 - PPSV23) Pneumococcal Vaccine: 65+ Years (2 of 2 - PPSV23) [facility] Start: 1989 Screening for malign ant neoplasm of breast Mammogram [facility] Start: 1949 Screening for malign ant neoplasm of colon [facility] Payers Date Payer Category Payer Private Health Insurance [id number] 2021 Unknown [employer] [id number] 2021-Present [address] [place] [address] [id number] 2014 Medicare [id number] 1959 Medicare [id number] 1959 Unknown [id number] 1949 Unknown [id number] 2.16.840.1.837962.3.579.2.5 93 1949 Unknown [id number] .16.840.1.533901.3.579.2.5 93 1949 Unknown [id number] 2.16.840.1.989133.3.579.2.5 93 1949 Unknown [id number] 2.16.840.1.068928.3.579.2.5 93 1949 Unknown [id number] 2.16.840.1.476272.3.579.2.5 93 1949 Unknown [id number] 2.16.840.1.417790.3.579.2.5 93 1949 Unknown [id number] 2.16.840.1.739684.3.579.2.5 93 1949 Unknown [id number] 2.16.840.1.810024.3.579.2.5 93 1949 Unknown [id number] 2.16.840.1.808888.3.579.2.5 93 1949 Unknown [id number] 2.16.840.1.420630.3.579.2.5 93 1949 Unknown [id number] 2.16.840.1.402889.3.579.2.5 93 1949 Unknown [id number] 2.16.840.1.804788.3.579.2.5 93 1949 Unknown [id number] 2.16.840.1.278639.3.579.2.5 93 1949 Unknown [id number] 2.16.840.1.585639.3.579.2.5 93 1949 Unknown [id number] 2.16.840.1.990643.3.579.2.5 93 1949 Unknown [id number] 2.16.840.1.724315.3.579.2.5 93 1949 Unknown [id number] 2.16.840.1.346924.3.579.2.7 27 1949 Unknown [id number] 2.16.840.1.594869.3.579.2.7 27 1949 Unknown [id number] 2.16.840.1.334275.3.579.2.1 259 1949 Unknown [id number] 2.16.840.1.458318.3.579.2.1 259 1949 Unknown [id number] 2.16.840.1.311210.3.579.2.1 259 1949 Unknown [id number] 2.16.840.1.050170.3.579.2.1 259 1949 Unknown [id number] 2.16.840.1.941758.3.579.2.1 259 1949 Unknown [id number] 2.16.840.1.331594.3.579.2.1 259 1949 Unknown [id number] 2.16.840.1.896698.3.579.2.1 259 1949 Unknown [id number] 2.16.840.1.393798.3.579.2.1 259 1949 Unknown [id number] 2.16.840.1.711761.3.579.2.1 259 1949 Unknown [id number] 2.16.840.1.791188.3.579.2.1 259 1949 Unknown [id number] 2.16.840.1.501539.3.579.2.1 259 1949 Unknown [id number] 2.16.840.1.055092.3.579.2.1 259 Social History Date Type Detail Facility Start: 04-30-2023 End: 12-03-2023 Tobacco smoking status [facility] Ex-smoker [facility] End: 04-06-2006 History of tobacco use Current smoker [facility] End: 04-06-2006 History of tobacco use Cigarette Smoker [facility] History of tobacco use Passive smoker [facility] Start: 04-30-2023 End: 12-03-2023 Tobacco use and exposure Smokeless tobacco non-user [facility] Start: 05-14-2023 End: 12-03-2023 Alcohol intake Lifetime non-drinker (finding) [facility] Start: 04-30-2023 End: 11-03-2024 History of Social function [facility] Start: 04-30-2023 End: 11-03-2024 Tobacco use panel [facility] Start: 12-12-2022 Alcohol Comment Caffeine intake: non e [facility] Start: 1950 Sex Assigned At Not on file [facility] Start: 12-31-2023 End: 11-17-2024 Alcoholic beverage intake Ex-drinker (finding) [facility] re Start: 12-14-2023 Alcohol Comment Caffeine intak e: none; quit in 2014 [facility] Clinical Notes 05-26-2022 to 11-17-2024 Renny Orlando, [...] b.I.d. basis., Disp: 30 mL, Rfl: 11 Kwjwdsm-Ohkdngkctxm-Lvpujoollw (Breztri Aerosphere) 160-9-4.8 MCG/ACT aerosol, Inhale 1 [...] Partner Violence: Unknown (05/28/2023) Received from [facility] [place] Safety [facility] Environment Fear [...] Renny Orlando DPM documented in this encounter [facility] 11-07-2024 Note [place] [facility] Subjective Adrianna Buitrago is a 74 [...] morning and at bedtime., Disp: , Rfl: klbmynvfol-bhfcsmzx-kalrrneizm (Breztri Aerosphere) 160-9-4.8 mcg/actuation HFA aerosol inhaler, [...] mg by chino (more content not included)... [facility] 10-20-2024 History of Present illness Narrative Patient: [...] b.I.d. basis., Disp: 30 mL, Rfl: 11 Fvrwqyx-Gzrdaqmqmze-Xcwyglzajf (Breztri Aerosphere) 160-9-4.8 MCG/ACT aerosol, Inhale 1 [...] Partner Violence: Unknown (05/28/2023) Received from [facility] Safety & Environment Fear of [...] Renny Orlando DPM documented in this encounter [facility] 06-16-2024 History of Present illness Narrative Patient: [...] b.I.d. basis., Disp: 30 mL, Rfl: 11 Poiylfw-Umeciijzqtj-Hwulatstry (Breztri Aerosphere) 160-9-4.8 MCG/ACT aerosol, Inhale 1 [...] Partner Violence: Unknown (05/28/2023) Received from [facility] [place] [facility] Fear [...] Renny Orlando DPM documented in this encounter [facility] 04-29-2024 Note Cardiology Follow Up Progress Note [...] nostril in the morning and at bedtime. cipqzrgktf-fkxpxuid-vbhrrvirav (Breztri Aerosphere) 160-9-4.8 mcg/actuation HFA aerosol inhaler [...] as needed Juanita Jenkins MD Interventional Cardiology [facility] 04-07-2024 History of Present illness [...] medications or symptoms. documented in this encounter [facility] 02-11-2024 History of Present illness Narrative Patient: [...] b.I.d. basis., Disp: 30 mL, Rfl: 11 Xhxzhuc-Poyqnysysfm-Ymtclkkymw (Breztri Aerosphere) 160-9-4.8 MCG/ACT aerosol, Inhale 1 [...] Partner Violence: Unknown (05/28/2023) Received from [facility] [place] [facility] Fear [...] Renny Orlando DPM documented in this encounter [facility] 01-28-2024 History of Present illness Narrative Patient: [...] b.I.d. basis., Disp: 30 mL, Rfl: 11 Pmdmlgf-Hqpltxjksrl-Tjueajwqrq (Breztri Aerosphere) 160-9-4.8 MCG/ACT aerosol, Inhale 1 [...] Partner Violence: Unknown (05/28/2023) Received from [facility], [facility] [place] [facility] Fear [...] Renny Orlando DPM documented in this encounter [facility] 01-14-2024 History of Present illness Narrative Patient: [...] intervertebral disc History of varicose veins Hyperlipidemia ([facility]/HCC) Hypertension (CMS/HCC) Hyperthyroidism (CMS/HCC) Kidney disease Osteoarthritis Osteoporosis (CMS/HCC) Varicose vein of leg Medications: Current Outpatient Medications: aspirin 81 MG EC tablet, 1 (one) time each day at the same time., Disp: , Rfl: azelastine (Astelin) 0.1 % nasal spray, Azelastine HCl Two sprays per nostril on a b.I.d. basis., Disp: 30 mL, Rfl: 11 Gmvnipl-Sodmyhhrbdf-Hfczfsjfpe (Breztri Sandboxxphere) 160-9-4.8 MCG/ACT aerosol, Inhale 1 puff Daily, [...] Partner Violence: Unknown (05/28/2023) Received from [facility] [place] [facility] Fear [...] Renny Orlando DPM documented in this encounter [facility] 12-31-2023 History of Present illness Narrative Patient: [...] b.I.d. basis., Disp: 30 mL, Rfl: 11 Fdlolxq-Jyxyqgyqxbi-Hdqzetjrkb (Breztri Aerosphere) 160-9-4.8 MCG/ACT aerosol, Inhale 1 [...] Partner Violence: Unknown (05/28/2023) Received from [facility] [place] [facility] Fear [...] Renny Orlando DPM documented in this encounter [facility] 12-17-2023 History of Present illness Narrative Patient: [...] Partner Violence: Unknown (05/28/2023) Received from [facility] [place] [facility] Fear [...] Renny Orlando DPM documented in this encounter [facility] 12-15-2023 History of Present illness Narrative Images [...] Breztri Aerosphere 160-9-4.8 MCG/ACT aerosol; Generic drug: Nuhlsis-Uvczwaymapr-Mmaeduarek budesonide 1 MG/2ML nebulizer solution; Commonly known [...] wrist extensors , wrist flexor , and lacquer polisher strength 5/5. LUE strength deltoid , biceps , triceps , wrist extensors , wrist flexor , and lacquer polisher strength 5/5. RLE strength iliopsoas, quadriceps, tibialis [...] reflex 1+. LLE Knee reflex 1+. Coordination: Vbpgyw-xd-pgbu testing normal. Rapid alternating movements are normal. [...] [facility] documented in this encounter [facility] 12-03-2023 History of Present illness Narrative Patient: [...] Partner Violence: Unknown (05/28/2023) Received from [facility] [place] [facility] Fear [...] Renny Orlando DPM documented in this encounter [facility] 06-09-2023 Note Chief Complaint consultation for colonoscopy [...] 1 tab(s), Oral, Daily Flonase 0.05 mg/inh Foristell, 2 spray(s), Nasal, Daily lactulose 10 g/15 [...] mEq= 1 tab(s (more content not included)... [facility] Comment on above: Result Comment: Elec tronically Signed By: KAVIN FRANKLIN, Issa Hi\Date and Time Signed: 06/09/23 08:28 EST 05-26-2022 Note CARDIAC STRESS TEST Requesting Physician: Procedure Date:05/26/2022 This is a treadmill stress test with myocardial perfusion imaging, performed at the [facility] on 05/26/2022. Informed consent was [...] +7.5 is associated with low risk for moth exterminator cardiac events. 4. Myocardial perfusion images will be reported separately. [facility] Evaluation note Diagnosis Verruca plantaris- Primary Plantar wart Foot pain, right Pain in soft tissues of limb Foot pain, left Pain in soft tissues of limb documented in this encounter [facility] Diagnosis Verruca plantaris- Primary Plantar wart Foot pain, right Pain in soft tissues of limb Foot pain, left Pain in soft tissues of limb documented in this encounter [facility]* Diagnosis Verruca plantaris- Primary [...] tissues of limb documented in this encounter [facility] Healthcare[facility] of Present illness Narrative* Renny [...] b.I.d. basis., Disp: 30 mL, Rfl: 11 Czenhib-Ycwwjtocrey-Cvsjfomyxs (Breztri Aerosphere) 160-9-4.8 MCG/ACT aerosol, Inhale 1 [...] Partner Violence: Unknown (05/28/2023) Received from [facility] [place] [facility] Fear [...] section and content) DATE CREATED AUTHOR 08/17/2021 [facility] Me dical Specialist DATE CREATED AUTHOR AUTHOR'S ORGANIZ ATION 07/05/2022 [facility] DATE CREATED AUTHOR AUTHOR'S ORGANIZ ATION 08/10/2023 [facility] DATE CREATED AUTHOR AUTHOR'S ORGANIZ ATION 11/08/2024 [facility] DATE CREATED AUTHOR AUTHOR'S ORGANIZ ATION 11/19/[address] [facility] dical Specialists EPIC Care Teams (unrecognized sec tion and content) Train Director Relationship Specialty Start Date End Date Jenny Burris MD [address] [place] [address] PCP - General Family Medicine 04/30/23 Train Director Relationship Specialty Start Date End Date Jenny Burris MD [address] [place] [address] PCP - General Family Medicine 04/30/23 Train Director Relationship Specialty Start Date End Date Jenny Burris MD [address] [place] [address] PCP - General Family Medicine 04/30/23 Train Director Relationship Specialty Start Date End Date Jenny Burris MD [address] [place] [address] PCP - General Family Medicine 04/30/23 Train Director Relationship Specialty Start Date End Date Jenny Burris MD [address] [place] [address] PCP - General Family Medicine 04/30/23 Train Director Relationship Specialty Start Date End Date Jenny Burris MD [address] [facility] [place] [address] PCP - General Family Medicine 04/30/23 Train Director Relationship Specialty Start Date End Date Jenny Burris MD [address] [facility] [place] [address] PCP - General Family Medicine 04/30/23 Train Director Relationship Specialty Start Date End Date Jenny Burris MD [address] [facility] [place] [address] PCP - General Family Medicine 04/30/23 Train Director Relationship Specialty Start Date End Date Jenny Burris MD [address] [facility] [place] [address] PCP - General Family Medicine 04/30/23 Train Director Relationship Specialty Start Date End Date Jenny Burris MD [address] [facility] [place] [address] PCP - General Family Medicine 04/30/23 Train Director Relationship Specialty Start Date End Date Jenny [...] BE BASED ON THE PRIMARY CLINICAL RECORDS. [facility] [employer] [facility]. provides no warranty or guarantee of the accuracy or completeness of information in this document.
--- OUTSIDE RECORDS SUMMARY | 2024-11-30 07:32 | XMS_ITS | Encounter Summary ---
Author Organization [facility] Address [address] [place] [address] Care Team Providers Care Electric Motor Winders Assembler Name Role Phone Miko Burris MD Primary Care Provider [phone] Encounter Details Date Type Department Care Team (Late Contact Info) Description 12/12/2022 Abstract [facility] [address] [facility] [address] [place] [address] Charles Faith MD [address] [facility] [address] [place] [address] Social History Tobacco Use Types Packs/Day Years [...] EDT Office Visit [facility] [address] [facility] [address] [place] [id number] Renny Orlando DPM [address] [facility] [address] [place] [address] 01/11/2025 9:20 AM EDT Office Visit [facility] [address] [facility] [address] [place] [address] Charles Faith MD [address] [facility] [address] [place] [address] documented as of this encounter Visit Diagnoses Not on filedocumented in this encounter Care Teams Electric Motor Winders Assembler Relationship Specialty Start Date End Date Miko Burris MD [address] [place] [address] PCP - General Family Medicine 04/30/23 documented as of this encounter
--- OUTSIDE RECORDS SUMMARY | 2024-11-30 07:32 | XMS_ITS | Patient Health Record ---
Author Organization [facility] Address [address] [place] [address] Care Team Providers Care Deposit Clerk Name Role Phone José Miguel Joseph Unavailable [phone] Miko Burris Unavailable Unavailable xxSophia Austin Unavailable Allergies Allergen (clinical drug ingredient) Drug/Non Drug Allergy documented on EMR Reaction Allergy Type Onset Date Status amoxicillin amoxicillin itching Drug Allergy Act bar morphine morphine swelling, itch Drug Allergy Ac tive Reason For Referral Reason NO AUTH REQ......... ............................NOT SCHEDULED..................................MCR/MMO MRI LEFT SHOULDER TO BE DONE AT Diagnosis 1 Tear of left rotator cuff, unspecified tear extent, unspecified whether traumatic (M75.102) Referral Organization [facility] Referring Provider First Name Anyashane Referring Provider Last Name St Adhikari Referring Provider Speciality Orthopedic Surgery Referred Organization [facility] Outpatient Referred Address [address] [place], [place],[address], Procedure 1 MRI Joint Upper Ext w/o Dye (47085) General Notes Farida Doyle 025 11:02:20 AM [...] Problem Status W/U Status Risk Notes Problem 28478956 Cervical radiculopathy (M54.12) Active confirmed Problem 70322795 Cervical spinal stenosis (M48.02) Active confirmed Problem 11391617 Muscle weakness (M62.81) Active confirmed Problem 58164956 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-C5 level (M50.321) Active confirmed Problem 26241413 Other cervical disc degeneration at C5-C6 level (M50.322) Active confirmed Problem 65415479 Other cervical disc degeneration at C6-C7 level (M50.323) Active confirmed Problem 22446877 Other cervical disc degeneration, high cervical region (M50.31) Active confirmed Problem 603854334 Complete tear of left rotator cuff, unspecified whether traumatic (M75.122) Active confirmed Problem 146928466459 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) Active confirmed Encounters Encounter Location Date Provider Diagnosis [address] [place] [address] 04/22/2024 Sophia Griffith Other cervical disc degeneration, high cervical region M50.31 ; 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-C5 level M50.321 ; Other cervical disc degeneration at C5-C6 level M50.322 ; Other cervical disc degeneration at C6-C7 level M50.323 ; Cervical radiculopathy M54.12 ; Neuroforaminal stenosis of cervical spine M48.02 and Muscle weakness M62.81 [facility] Office [facility] [place] [address] 05/13/2024 Sophia Griffith Other cervical disc degeneration, [...] Cervical spine 2 v FLEX, EXT - 26508 MRI Shoulder Left w/o Contrast 5 Insurance Providers Payer Name Payer Address Payer Phone Subscriber Number Group Number Insured Name Patient Relationship to Insured Coverage Start Date Coverage End Date Medicare [address] [phone] [id number] AKIRA BUITRAGO Self - patient is the insured Medical [facility] [address] [place] [address] [id number] AKIRA BUITRAGO Self - patient is the insured Medical (General) History Medical History History ICD Code Hypertension Heart murmur Asthma Bronchitis Thyroid disease GERD: Osteoporosis Osteoarthritis
[2024-11-30 08:12] LABS: Alanine Aminotransferase 50 U/L (14-59); Albumin Globulin Ratio 1.2; Albumin Level 3.6 g/dL (3.4-5.0); Alkaline Phosphatase 37 U/L (46-116); Anion Gap 9.4; Aspartate Amino Transferase 45 U/L (15-37); Blood Urea Nitrogen 21.0 mg/dL (7.0-18.0); Calcium 9.4 mg/dL (8.5-10.1); Carbon Dioxide 30.5 mmol/L (21.0-32.0); Chloride 106 mmol/L (98-107); Estimated GFR (African America 59 (>=60 mL/min/1.73m^2); Estimated GFR (Non-African Ame 49 (>=60 mL/min/1.73m^2); Globulin 3.0 g/dL; Glucose 95 mg/dL (74-106); Potassium 3.9 mmol/L (3.5-5.1); Sodium 142 mmol/L (136-145); Total Protein 6.6 g/dL (6.4-8.2)
== END 2024-11-30 07:30 | disposition home or self-care (01) ==
LOC: LAB 07:30
PROVIDERS: PCP Family Medicine; Visit Provider Family Medicine
DX: R94.5 Abnormal results of liver function studies (principal)
CPT/HCPCS: 36415; 80053

== ENCOUNTER 2025-01-16 07:41 | Outpatient (RCR) | payer MEDICARE, OTHER, SELFPAY ==
[2025-01-16 08:04] LABS: Calcium 10.6 mg/dL (8.5-10.1); Estimated GFR (African America 56 (>=60 mL/min/1.73m^2); Estimated GFR (Non-African Ame 46 (>=60 mL/min/1.73m^2)
[2025-01-16 08:08] VITALS: BP 135/73; PULSE 58; TEMP 36.6; O2SAT 97
[2025-01-16] MEDS: DENOSUMAB 60 MG/ML SYRINGE SUBQ (08:17)
== END 2025-02-06 11:53 | disposition home or self-care (01) ==
LOC: LAB 07:41
PROVIDERS: PCP Family Medicine; Visit Provider Family Medicine
DX: Z51.81 Encounter for therapeutic drug level monitoring (principal); M81.0 Age-related osteoporosis without current pathological fracture
CPT/HCPCS: 36415; 82310; 82565; 96372; J0897

== ENCOUNTER 2025-01-30 07:45 | Outpatient (OUT) | payer MEDICARE, OTHER, SELFPAY ==
--- OUTSIDE RECORDS SUMMARY | 2025-01-19 09:00 | XMS_ITS | Encounter Summary ---
Author Organization [facility] Address [address] [place] [address] Care Team Providers Care Pediatric Dentist Name Role Phone Miko Burris MD Primary Care Provider [phone] Reason for Visit * ReasonCommentsFollow-upLesion check Encounter Details DateTypeDepartmentCare Team (Latest Contact Info)Wzaekkbcyvh64/16/2025 9:00 AM EDTOffice Visit [facility] [address] [facility] [address] [place] [address] Renny Orlando, DPSobia [address] [facility] 5 [place] [address] Verruca plantaris (Primary Dx); Foot pain, right; Foot pain, left Social History Tobacco UseTypesPacks/DayYears UsedDateSmoking Tobacco: FormerCigarettesQuit: 04/06/2006Passive Smoke Exposure: PastSmokeless Tobacco: Never Tobacco Cessation:Counseling Given: Yes Alcohol UseStandard Drinks/WeekCommentsNot Currently0 (1 standard drink = 0.6 oz pure alcohol)Caffeine intake: none; quit in 2014CommentsUnknownSex and Gender InformationValueDate RecordedSex Assigned at BirthNot on fileLegal Sex Bducil2206/18/2022 6:45 PM EDTGender IdentityNot on fileSexual OrientationNot on filedocumented as of this encounter Last Filed Vital Signs Vital SignReadingTime TakenCommentsBlood Pressure--Pulse--Temperature-- Respiratory Zyvo9332/ 8:52 AM EDTOxygen Saturation--Inhaled Oxygen Concentration--Nbgkxd23.1 kg (128 lb)01/19/2025 8:52 AM SCKMhhkxj538 cm (5' 3 ) 01/19/2025 8:52 AM EDTBody Mass Index22.6701/19/2025 8:52 AM EDTdocumented in this encounter Progress Notes * Renny Orlando, SANKET - 01/19/2025 9:00 AM EDT Patient: Adrianna Buitrago : 1950 [...] b.I.d. basis., Disp: 30 mL, Rfl: 11 Eitduug-Pqdaqxxatlt-Fnlhwlmgje (Breztri [employer]) 160-9-4.8 MCG/ACT aerosol, Inhale 1 [...] Partner Violence: Unknown (05/28/2023) Received from [facility] [place] [employer] Fear of [...] yellow crumbly nails digits 1 through 10 Elongated thick yellow crumbly nails digits 1 through 10 VASC: Palpable pedal pulsed b/l with warm to cool tibia to toes b/l NEURO: Gross sensation intact digits 1-10 and b/l feet ORTHO: +5/5 DF/PF/IN/EV right, +5/5 DF/PF/IN/EV left. 20 degrees inversion and 10 degrees eversion STJ b/l. Ankle ROM less than 10 degrees b/l. psoitive pain on palpation to right and left foot lesion Positive pain on palpation to toenails of the left 1,2,3,4,5 toes and right 1,2,3,4,5 toes XRAY: US: ASSESSMENT 1. Verruca plantaris 2. Foot pain, right 3. Foot pain, left PLAN Continue with topical antifungal p.r.n. Application of salinocaine acid medication to lesion/lesions located at right foot Continue creams twice daily to feet. Renny Orlando DPM documented in this encounter Plan of Treatment DateTypeDepartmentCare Team (Latest Contact Info)Tvtnjkyyuse00/30/2025 9:00 AM EDTOffice Visit [facility] [address] [facility] [address] [place] [address] Renny Orlando, DPM [address] [address] 03/16/2025 8:30 AM ESTProcedure Visit [facility] [address] [facility] [address] [place] [address] Renny Orlando DPSobia [address] [address] 01/10/2026 9:20 AM EDTOffice Visit [facility] [address] [phone] Charles Faith MD [address] [address] documented as of this encounter Visit Diagnoses Diagnosis Verruca plantaris- Primary Plantar wart Foot pain, right Pain in soft tissues of limb Foot pain, left Pain in soft tissues of limb Verruca plantaris- Primary Plantar wart Foot pain, left Pain in soft tissues of limb documented in this encounter Care Teams Team MemberRelationshipSpecialtyStart DateEnd Date Miko Burris MD [address] [place] [address] PCP - GeneralFamily Medicine04/30/23documented as of this encounter
--- OUTSIDE RECORDS SUMMARY | 2025-01-30 07:46 | XMS_ITS | Patient Health Record ---
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 Name Role Phone Cornelio Burris Primary Care Provider [phone] Lucía Nath [phone] Allergies Allergen (clinical drug ingredient) Drug/Non Drug Allergy documented on EMR Reaction Allergy Type Onset Date Status amoxicillin Amoxicillin itching Drug Allergy ActivemorphineMorphineitching and swellingDrug AllergyActive Results Component Value Reference Range Notes MR shoulder LT wo con Reviewed date:05/09/2024 07:49:36 PM Interpretation: Performing Lab: Notes/Report: Source Facility: [place] [address] Magnetic Resonance Report Signed Patient: ADRIANNA BUITRAGO MR#: [id number] : 1950 Acct:[id number] Age/Sex: 73 / F ADM Date: 05/06/24 Loc: MRI Attending Dr: Sophia PARKINSON Ordering Physician: Sophia Malik Date of Service: 05/06/24 Procedure(s): MR shoulder LT wo con Accession Number(s): [id number] cc: Jenny Burris M.D.; Sophia Malik [address] [address] Patient Name: ADRIANNA BUITRAGO MRN: [id number] date: 1950 Sex: F Assigned Patient Location: MRI Current Patient Location: Accession/Order Number: [id number] Exam Date: 05/06/2024 07:48 Report Date: 05/09/2024 [...] Signed By: 05/09/24 1049 DD/ 1046 TD/TT: Upper Leather Cutter: SNEHA T3 Reviewed date:11/23/2024 12:56:26 PM Interpretation: Performing Lab: Notes/Report: [facility] Sneha T3 2.25 2.18-3.98 pg/mL Performing Lab:see noteML - [facility] LBGLYCOHEMOGLOBIN A1C Reviewed date:11/23/2024 12:56:26 PM Interpretation: Performing Lab: Notes/Report: [facility] ,Glycohemoglobin A1C4.94.5-6.2 % ADA RECOMMENDED LIMIT 4.0 - 6.0 ADA THERAPEUTIC TARGET < 7.0 ACTION SUGGESTED > 7.0 Estimated Average Ozfgiyl27Jxfnperhof Lab:see note - [facility] LB IRON Reviewed date:11/23/2024 12:56:26 PM Interpretation: Performing Lab: Notes/Report: [facility] ,Kxnw600.050.0-170.0 ug/dLPerforming Lab:see note - [facility] LB LIPID PROFILE Reviewed date:11/23/2024 12:56:26 PM Interpretation: Performing Lab: Notes/Report: [facility] ,Lanwyckztkxzm94<=150 mg/rMCjvyfbrazaz908<=200 mg/dLHDL Rxzqcxyqtdz4983-20 mg/dL > or =60 mg/dl - LOW CARDIOVASCULAR RISK <40 mg/dl - HIGH CARDIOVASCULAR RISK LDL Cholesterol Qderuxytgk265.0 <100 mg/dl OPTIMAL 100-129 mg/dl NEAR OR ABOVE OPTIMAL 130-159 mg/dl BORDERLINE HIGH 160-189 mg/dl HIGH >190 mg/dl VERY HIGH VLDL AIQXNJJCFXL44.2Chol HDL Ratio2.9 3.3 - 4.4 LOW RISK 4.4 - 7.1 AVERAGE RISK 7.1 - 11.0 MODERATE RISK >11.0 HIGH RISK Performing Lab:see note - [facility] LBT4 Reviewed date:11/23/2024 12:56:26 PM Interpretation: Performing Lab: Notes/Report: [facility] ,T4 Ksuomozve30.304.80-13.90 ug/dLPerforming Lab:see note - [facility] LBTSH Reviewed date:11/23/2024 12:56:26 PM Interpretation: Performing Lab: Notes/Report: [facility] ,Thyroid Stimulating Hormone0.3910.358-3.740 uIU/mLPerforming Lab:see note - [facility] LBPROF 14(COMP METB) Reviewed date:11/30/2024 01:00:32 PM Interpretation: Performing Lab: Notes/Report: [facility] ,Djhmzx657425-860 mmol/LPotassium3.93.5-5.1 mmol/FYerdwkim53563-678 mmol/LCarbon Jpolrph15.521.0-32.0 mmol/LAnion Gap9.5Ywiewvy0497-479 mg/dLBlood Urea Nitrogen 21.07.0-18.0 mg/dLCreatinine1.090.55-1.02 mg/dLEstimated GFR ( Vhgdwdg81 >=60 mL/min/1.73m 2Estimated GFR (Non- Ame49>=60 mL/min/1.73m 2BUN Creatinine Ratio19.2Bsckjgz1.48.5-10.1 mg/dLBilirubin Total0.60.2-1.0 mg/dL Aspartate Amino Qgdrsvsodzw1157-87 U/LAlanine Cmouvkkumpikdgcy8779-76 U/L Alkaline Ckfahdvugjb0310-363 U/LTotal Protein6.66.4-8.2 g/dLAlbumin Level3.63.4- 5.0 g/dLGlobulin3.0Albumin Globulin Ratio1.2Performing Lab:see noteML - [facility] LBCALCIUM Reviewed date:01/16/2025 12:38:03 PM Interpretation: Performing Lab: Notes/Report: [facility] ,Rduubtl30.68.5-10.1 mg/dLPerforming Lab:see noteML - [facility] LB CREATININE Reviewed date:01/16/2025 12:38:03 PM Interpretation: Performing Lab: Notes/Report: [facility] ,Creatinine1.150.55-1.02 mg/dLEstimated GFR ( Vumdlct83>=60 mL/min/1.73m 2Estimated GFR (Non- Ame46>=60 mL/min/1.73m 2Performing Lab:see noteML - [facility] LBPROF 14(COMP METB) Reviewed date:11/23/2024 12:56:26 PM Interpretation: Performing Lab: Notes/Report: [facility] ,Fmysjd452860-754 mmol/LPotassium4.23.5-5.1 mmol/XYqvmxgfq81505-299 mmol/LCarbon Wfhrqts31.621.0-32.0 mmol/LAnion Gap10.7Dkplvfh7518-479 mg/dLBlood Urea Nitrogen 18.07.0-18.0 mg/dLCreatinine1.110.55-1.02 mg/dLEstimated GFR ( Adfxkze60 >=60 mL/min/1.73m 2Estimated GFR (Non- Ame48>=60 mL/min/1.73m 2BUN Creatinine Ratio16.1Ryvsban33.28.5-10.1 mg/dLBilirubin Total0.60.2-1.0 mg/dL Aspartate Amino Xbslxckvvwn9769-42 U/LAlanine Jwfioddtkdiznsbq0064-19 U/L Alkaline Pjezcrvrdep2776-300 U/LTotal Protein7.66.4-8.2 g/dLAlbumin Level4.13.4- 5.0 g/dLGlobulin3.5Albumin Globulin Ratio1.2Performing Lab:see noteML - [facility] LBCBC AUTO DIFF Reviewed date:11/23/2024 12:56:26 PM Interpretation: Performing Lab: Notes/Report: [facility] ,White Blood Count6.24.0-11.0 10 3/uLRed Blood Count4.284.20-5.40 10 6/uL Eglqqtzicl67.612.0-16.0 g/pRQswasgdgud91.436.0-48.0 %Mean Corpuscular Zfjmgz65.4 81.0-99.0 fLMean Corpuscular Oecticzqpo65.826.7-34.0 pgMean Corpuscular HGB Conc 33.729.9-35.2 g/dLRed Cell Distribution Width13.511.0-15.0 %Platelet Jctpp447 150-450 10 3/uLMean Platelet Iknbjq16.89.5-13.5 fLNeutrophils Percent Auto63.8 43.0-75.0 %Lymphocytes Percent Auto19.520.5-60.0 %Monocytes Percent Auto11.21.7- 12.0 %Eosinophils Percent Auto4.50.9-7.0 %Basophils Percent Auto0.50.2-2.0 % Immature Granulocytes Pct Auto0.50.0-0.5 %Neutrophils Absolute Auto3.91.4-6.5 10 3/uLLymphocytes Absolute Auto1.21.2-3.8 10 3/uLMonocytes Absolute Auto0.70.3-0.8 10 3/uLEosinophils Absolute Auto0.30.0-0.7 10 3/uLBasophils Absolute Auto0.00.0- 0.1 10 3/uLImmature Granulocytes Abs Auto0.030.00-0.03 10 3/uLPerforming Lab:see noteML - [facility] LBOccult Blood* Reviewed date:08/31/2024 01:01:38 PM Interpretation: Performing Lab: Notes/Report: [facility] ,Occult BloodNegativePerforming Lab:see note - [facility] LBManual Differential Reviewed date:08/31/2024 01:01:38 PM Interpretation: Performing Lab: Notes/Report: [facility] ,Segmented Neutrophils % Hoxaza88.043.0-75.0Band Neutrophils %2.00-5 % Lymphocytes Percent Manual3.020.5-60.0 %Monocytes Percent Manual5.01.7-12.0 % Eosinophils Percent Manual0.00.9-7.0 %Basophils Percent Manual0.00.2-2.0 % Segmented Neut Absolute Tiwzhq53.071.4-6.5 10 3/uLBand Neutrophils Absolute0.2 0.0-0.3 10 3/uLLymphocytes Absolute Manual0.361.20-3.80 10 3/uLMonocytes Absolute Manual0.610.30-0.80 10 3/uLEosinophils Absolute Manual0.000.00-0.70 10 3/uLBasophils Abs Manual0.000.00-0.10 10 3/uLPerforming Lab:see note - [facility] LBPROF CHEM 8 (BAS METB) Reviewed date:08/31/2024 01:01:38 PM Interpretation: Performing Lab: Notes/Report: [facility] ,Fvumsw966321-101 mmol/LPotassium4.03.5-5.1 mmol/NOucmmkqt39412-241 mmol/LCarbon Dubpito74.821.0-32.0 mmol/LAnion Gap16.3Kfinptc45244-151 mg/dLBlood Urea Skxqoroc56.07.0-18.0 mg/dLCreatinine1.560.55-1.02 mg/dLEstimated GFR ( Siiqapf50>=60 mL/min/1.73m 2Estimated GFR (Non- Ame32>=60 mL/min/1.73m 2 BUN Creatinine Ratio22.5Xijqucg3.78.5-10.1 mg/dLPerforming Lab:see note - [facility] LBLIVER PROFILE Reviewed date:08/31/2024 01:01:38 PM Interpretation: Performing Lab: Notes/Report: [facility] ,Bilirubin Total0.70.2-1.0 mg/dLBilirubin Direct0.20.0-0.2 mg/dLAspartate Amino Xyfyxtxomfk1190-82 U/LAlanine Tnzzpcvbfwbocnwk3873-26 U/LAlkaline Kdneqvrlrin55 46-116 U/LTotal Protein7.06.4-8.2 g/dLAlbumin Level3.83.4-5.0 g/dLGlobulin3.2 Albumin Globulin Ratio1.2Performing Lab:see note - [facility] LB LIPASE Reviewed date:08/31/2024 01:01:38 PM Interpretation: Performing Lab: Notes/Report: [facility] ,Fskzji09.016.0-77.0 U/LPerforming Lab:see note - [facility] LB AMYLASE Reviewed date:08/31/2024 01:01:38 PM Interpretation: Performing Lab: Notes/Report: [facility] ,Ypbmebf9978-669 U/LPerforming Lab:see note - [facility] LBECG 12 lead Reviewed date:08/29/2024 03:23:47 PM Interpretation: Performing Lab: Notes/Report: Source Facility: [facility]-[address] [place] [address] [place] [address] Electrocardiograph Report Signed Patient: ADRIANNA BUITRAGO MR#: [id number] : 1950 Acct:[id number] Age/Sex: 73 / F ADM Date: 08/28/24 Loc: ER Attending Dr: Ordering Physician: Kenya Clinton Date of Service: 08/28/24 Procedure(s): ECG 12 lead Accession Number(s): [id number] cc: [facility] Test Date: 2024-08-28 Pat Name: ADRIANNA BUITRAGO Department: Room: - Gender: Female [employer] Order Filler: : 1950 Requested By: [id number] Order Number: [id number] Reading MD: HOMER STEVENS M.D. Measurements Intervals [place] Rate: 64 P: 65 OH: 118 QRS: 79 QRSD: 84 T: 72 QT: 376 QTc: 386 Interpretive Statements 1100 Sinus rhythm 2210 Short OH interval 9150 abnormal ECG Compared to ECG 06/23/2023 15:46:53 Short OH interval now present Electronically Signed On 08-29-2024 7:53:00 EDT by HOMER STEVESN M.D. Dictated By: HOMER STEVENS Signed By: 08/29/24 0753 DD/ 1521 TD/TT: Upper Leather Cutter:SARS-CoV-2 Ag* Reviewed date:08/29/2024 03:23:47 PM Interpretation: Performing Lab: Notes/Report: [facility] ,SARS-CoV-2 AgNEGATIVENEGATIVE This test has not been FDA cleared [...] terminated or authorization is revoked sooner. Performing Lab:see noteML - [facility] LBUA (CLEAN or CATCH) MICROSCOPIC IF INDICATE Reviewed date:08/29/2024 03:23:47 PM Interpretation: Performing Lab: Notes/Report: [facility] ,Color UrineLT. YELLOWYELLOWClarity UrineCLEARCLEARSpecific Saxon Urine<=1.005 1.005-1.025pH Urine6.05.0-9.0Protein UrineNEGATIVENEG/TRACE mg/dLGlucose Urine UANEGATIVENEGATIVE mg/dLBilirubin UrineNEGATIVENEGATIVEKetones UrineNEGATIVE NEGATIVE mg/dLBlood UrineNEGATIVENEGATIVENitrite UrineNEGATIVENEGATIVE Urobilinogen Urine0.20.2-1.0 EU/dLLeukocyte Esterase UrineNEGATIVENEGATIVEUrine Microscopic IndicatedNOPerforming Lab:see note - [facility] LBPROF CHEM 8 (BAS METB) Reviewed date:08/29/2024 03:23:47 PM Interpretation: Performing Lab: Notes/Report: [facility] ,Iwrzzy217326-337 mmol/LPotassium3.73.5-5.1 mmol/LFsolafgw03477-341 mmol/LCarbon Gaehvri40.021.0-32.0 mmol/LAnion Gap10.7Dzjedjn80903-573 mg/dLBlood Urea Dwzqdvcy99.07.0-18.0 mg/dLCreatinine1.240.55-1.02 mg/dLEstimated GFR ( Apkikfs43>=60 mL/min/1.73m 2Estimated GFR (Non- Ame42>=60 mL/min/1.73m 2 BUN Creatinine Ratio20.1Pzzeohr70.08.5-10.1 mg/dLPerforming Lab:see note - [facility] LBCBC AUTO DIFF Reviewed date:08/29/2024 03:23:47 PM Interpretation: Performing Lab: Notes/Report: [facility] ,White Blood Count13.04.0-11.0 10 3/uLRed Blood Count4.154.20-5.40 10 6/uL Qtzrrzbdbq26.212.0-16.0 g/eNGkbpnknlhi45.736.0-48.0 %Mean Corpuscular Zhmdku18.7 81.0-99.0 fLMean Corpuscular Yhhlglnaet95.826.7-34.0 pgMean Corpuscular HGB Conc 33.229.9-35.2 g/dLRed Cell Distribution Width14.011.0-15.0 %Platelet Ytjwk700 150-450 10 3/uLMean Platelet Wixerd13.09.5-13.5 fLNeutrophils Percent Auto76.9 43.0-75.0 %Lymphocytes Percent Auto12.420.5-60.0 %Monocytes Percent Auto7.41.7- 12.0 %Eosinophils Percent Auto2.70.9-7.0 %Basophils Percent Auto0.40.2-2.0 % Immature Granulocytes Pct Auto0.20.0-0.5 %Neutrophils Absolute Auto10.01.4-6.5 10 3/uLLymphocytes Absolute Auto1.61.2-3.8 10 3/uLMonocytes Absolute Auto1.00.3- 0.8 10 3/uLEosinophils Absolute Auto0.40.0-0.7 10 3/uLBasophils Absolute Auto0.1 0.0-0.1 10 3/uLImmature Granulocytes Abs Auto0.030.00-0.03 10 3/uLPerforming Lab:see noteML - [facility] LBCREATININE Reviewed date:07/13/2024 12:41:17 PM Interpretation: Performing Lab: Notes/Report: [facility] ,Creatinine1.220.55-1.02 mg/dLEstimated GFR ( Jklwypf11>=60 mL/min/1.73m 2Estimated GFR (Non- Ame43>=60 mL/min/1.73m 2Performing Lab:see note - [facility] LBCALCIUM Reviewed date:07/13/2024 12:41:17 PM Interpretation: Performing Lab: Notes/Report: [facility] ,Calcium9.78.5-10.1 mg/dLPerforming Lab:see note - [facility] LBXR cervical spine 2-3V Reviewed date:04/24/2024 01:37:34 PM Interpretation: Performing Lab: Notes/Report: Source Facility: [facility]-[address] [place] [address] [place] [address] XRay Report Signed Patient: ADRIANNA BUITRAGO MR#: [id number] : 1950 Acct:[id number] Age/Sex: 73 / F ADM Date: 04/22/24 Loc: EC Attending Dr: Krytsyna Caba M.D. Ordering Physician: Krystyna Caba M.D. Date of Service: 04/22/24 Procedure(s): XR cervical spine 2-3V Accession Number(s): [id number] cc: Jenny Burris M.D.; Krystyna Caba M.D. [place] [id number] Patient Name: ADRIANNA BUITRAGO MRN: [id number] date: 1950 Sex: F Assigned Patient Location: Current Patient Location: Accession/Order Number: [id number] Exam Date: 04/22/2024 10:05 Report Date: 04/24/2024 [...] M.D. Signed By: 04/24/2448 DD/ 4 TD/TT: Upper Leather Cutter:MR cervical spine wo con Reviewed date:04/18/2024 01:16:08 PM Interpretation: Performing Lab: Notes/Report: Source Facility: [place] [address] Magnetic Resonance Report Signed Patient: ADRIANNA BUITRAGO MR#: [id number] : 1950 Acct:[id number] Age/Sex: 73 / F ADM Date: 04/18/24 Loc: MRI Attending Dr: Jenny Burris M.D. Ordering Physician: Jenny Burris M.D. Date of Service: 04/18/24 Procedure(s): MR cervical spine wo con Accession Number(s): [id number] cc: Jenny Burris M.D. [place] [address] Patient Name: ADRIANNA BUITRAGO MRN: [id number] date: 1950 Sex: F Assigned Patient Location: MRI Current Patient Location: MRI Accession/Order Number: [id number] Exam Date: 04/18/2024 07:50 Report Date: 04/18/2024 [...] Esteves M.D. Signed By: 04/18/2448 DD/ TD/TT: Upper Leather Cutter:MM tomosynthesis screening BI Reviewed date:01/31/2024 10:37:30 PM Interpretation: Performing Lab: Notes/Report: Source Facility: [place] [address] Mammography Report Signed Patient: ADRIANNA BUITRAGO MR#: [id number] : 1950 Acct:[id number] Age/Sex: 73 / F ADM Date: 01/29/24 Loc: MAMMO Attending Dr: Jenny Burris M.D. Ordering Physician: Jenny Burris M.D. Results: Date of Service: 01/29/24 Follow Up: Procedure(s): MM tomosynthesis screening BI Accession Number(s): [id number] cc: Jenny Burris M.D. Patient Name: ADRIANNA BUITRAGO MR#: [id number] : 1950 Exam Date: 01/29/2024 Ordering Doctor: [...] lung cancer at age 59. LOCATION: [facility] BREAST COMPOSITION: There are scattered areas [...] M.D. Signed By: 01/31/241947 DD/ 46 TD/TT: Upper Leather Cutter:XR cervical spine 2-3V Reviewed date:04/13/2024 06:55:56 PM Interpretation: Performing Lab: Notes/Report: Source Facility: [place] [address] [place] [address] XRay Report Signed Patient: ADRIANNA BUITRAGO MR#: [id number] : 1950 Acct:[id number] Age/Sex: 73 / F ADM Date: 04/12/24 Loc: LAB Attending Dr: Jenny Burris M.D. Ordering Physician: Jenny Burris M.D. Date of Service: 04/12/24 Procedure(s): XR cervical spine 2-3V Accession Number(s): [id number] cc: Jenny Burris M.D. [place] [address] Patient Name: ADRIANNA BUITRAGO MRN: [id number] date: 1950 Sex: F Assigned Patient Location: LAB Current Patient Location: PT Accession/Order Number: [id number] Exam Date: 04/12/2024 09:40 Report Date: 04/12/2024 [...] M.D. Signed By: 04/12/242213 DD/ 10 TD/TT: Upper Leather Cutter:PROF LAVONNE Espitia ([facility]) Reviewed date:04/12/2024 12:35:00 PM Interpretation: Performing Lab: Notes/Report: [facility] ,Imlenh819798-108 mmol/LPotassium3.63.5-5.1 mmol/AQrqtdyod27441-909 mmol/LCarbon Okrlkwd91.621.0-32.0 mmol/LAnion Gap11.0Bfotbow3319-735 mg/dLBlood Urea Nitrogen 25.07.0-18.0 mg/dLCreatinine1.190.55-1.02 mg/dLEstimated GFR ( Vohtojf58 >=60 mL/min/1.73m 2Estimated GFR (Non- Ame44>=60 mL/min/1.73m 2BUN Creatinine Ratio21.6Wqyjffm6.98.5-10.1 mg/dLPerforming Lab:see noteML - [facility] LBCBC AUTO DIFF Reviewed date:08/31/2024 01:01:38 PM Interpretation: Performing Lab: Notes/Report: [facility] ,White Blood Count12.34.0-11.0 10 3/uLRed Blood Count4.424.20-5.40 10 6/uL Cllzxyngdm71.912.0-16.0 g/tFSelvaojjjf53.836.0-48.0 %Mean Corpuscular Sjwbya13.6 81.0-99.0 fLMean Corpuscular Khzuijbuuj30.426.7-34.0 pgMean Corpuscular HGB Conc 33.329.9-35.2 g/dLRed Cell Distribution Width13.711.0-15.0 %Platelet Xzqpu068 150-450 10 3/uLMean Platelet Zppenu52.09.5-13.5 fLPerforming Lab:see noteML - [facility] Reason For Referral Diagnosis 1 Cervical radiculopat hy (M54.12) Referral Organization [facility] Referring Provider First Name Cornelio Referring Provider Last Name [place] Referring Provider Speciality Family Med icine Referred Provider [facility], Physical Therap y Referred Provider Specialty Physical Med icine and Rehabilitation Referral Priority Routine Diagnosis 1 Cervical radiculopat hy (M54.12) Referral Organization [facility] Referring Provider First Name Cornelio Referring Provider Last Name [place] Referring Provider Speciality Family [facility] icine Referred Provider Krystyna Joseph Referred Provider Specialty Orthopedic S urgery Referral Priority Routine Medications Medication SIG (Take, Route, Frequency, Duration) Notes Start Date End Date Status Azelastine HCl 137 MCG/SPRAY SPRAY 2 SPR AYS INTO EACH NOSTRIL ONCE A DAY; Duration: 90 ActiveAspirin Low Dose 81 MG1 tablet Orally Once a dayActiveImitrex 100 MG1 tablet at least 2 hours between doses as needed Orally Twice a day11/23/2024 ActiveFurosemide 20 MG1 tablet Orally QOD, PRN; Duration: 90 daysActiveUbrelvy 100 MG1 tablet may take second dose at least 2 hours after first dose as needed Orally Once a dayPRNActiveFluticasone Propionate 50 MCG/ACT2 spray in each nostril Nasally Once a day; Duration: 90 daysActiveProlia 60 MG/MLas directed SubcutaneousActivePravastatin Sodium 10 MG1 tablet Orally Once a day; Duration: 90 daysActiveFenofibrate 160 MG1 tablet Orally Once a day; Duration: 90 days ActivePotassium Chloride ER 10 MEQ1 tablet Orally three times daily; Duration: 90 daysActiveCytomel 5 MCG1 tablet on an empty stomach Orally Once a day; Duration: 90 days12/04/2022ctiveOmeprazole 40 MG1 tablet Orally Once a day; Duration: 90 daysActivecloNIDine HCl 0.1 MG1 tablet Orally twice daily; Duration: 90 daysActiveNebulizer/Tubing/Mouthpiece -as directed; Duration: 365 days06/20/2024tiveBudesonide 1 MG/2ML 1 mL Inhalation Once a day; Duration: 30 days Dx: COPD and Asthma ActiveLevothyroxine Sodium 100 MCG1 tablet Orally Once a day; Duration: 90 days ActiveBreztri Aerosphere 160-9-4.8 MCG/ACT2 puffs Inhalation once daily as needed; Duration: 30 daysActiveLactulose 10 GM/78WI44tc Oral twice daily as needed; Duration: 90 daysPRNActiveJobst 30-40mmHg Compression Sm -as directed dx:venous insufficiency qd; Duration: 30 days05/01/2023ctiveIpratropium [place]land 0.02 % 2.5 mL as needed Inhalation QID As needed 11/05/2023ctiveCephalexin 500 MG2 tabs Orally bid; Duration: 10 days12/01/2024 Active Immunizations Vaccine Route Administration Date Status Comme nts Pneumococcal (Prevnar 13) Unknown 10/27/2017 Administer ed RSV Vaccine, bivalent 8hVMxzjvzu81/28/9626GglzxshggkinYOPZ-DPF-5 (COVID 19 Moderna - 100mcg/0.5mL)Ltwikfv81/08/8528LtykvvhlkotwCBTC-IWU-2 (COVID 19 Moderna - Booster 0.25mL)Esuoweg96/09/4891QygasgytzmgfERZV-ISZ-6 (COVID 19 Moderna - Booster 0.25mL)Skliixh43/03/9345IjksszmgmwwySBXJ-MQZ-1 (COVID 19 Moderna - Booster 0.25mL)Dyfzrho35/19/3227VwfqalllzdpmPDSN-YHY-8 (COVID 19 Moderna Bivalent Booster 0.5mL)Zeggait9801/11/20229000ZauthymhlzwcRLSE-PTC-0 COVID-19, mRNA, LNP-S, PF, 50 mcg/0.5 bFPflyevj85/01/2023dministered Social History Tobacco Use: Social History Observation Description Date Details (start date - stop date) Former Smoker 04/06/1964 - 04/06/2006 Tobacco Use/Smoking Question Answer Notes Patient is a former smoker When did you start smoking?04/06/1964When did you stop smoking?04/06/2006lcohol Screen (Audit-C) Question Answer Notes Did you have a drink containing alcohol in the p ast year? No Cigvgl7ItajlclhdrfhlpXcwrrojcGXUBH-S (Standard) Question Answer Notes Did you have a drink containing alcohol in the p ast year? 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)ActiveconfirmedProblemMild intermittent asthma (663861972)Mild intermittent asthma, uncomplicated (J45.20)Active confirmedProblemShortness of breath (774525369)Shortness of breath (R06.02) ActiveconfirmedProblemMitral regurgitation (62631003)Mitral regurgitation (I34.0)ActiveconfirmedProblemHypertension (97612334)Hypertension (I10)Active confirmedProblemAsthma (170780968)Asthma (J45.909)ActiveconfirmedProblem Gastroesophageal reflux disease (908573898)GERD (gastroesophageal reflux disease) (K21.9)ActiveconfirmedProblemCervical radiculopathy (14056037)Cervical radiculopathy (M54.12)ActiveconfirmedProblemHypothyroidism (86956750) Hypothyroidism (E03.9)ActiveconfirmedProblemEdema (95427649)Edema (R60.9)Active confirmedProblemPeripheral venous insufficiency (17359759)Venous insufficiency (I87.2)ActiveconfirmedProblemOsteopenia (842063090)Osteopenia (M85.80)Active confirmedProblemDegenerative arthritis (114255605)Degenerative arthritis (M19.90)ActiveconfirmedProblemLumbar radiculopathy (562817022)Lumbar radiculopathy (M54.16)ActiveconfirmedProblemAcute sinusitis (51494009)Acute sinusitis (J01.90)ActiveconfirmedProblemAllergic rhinitis (71430125)Allergic rhinitis (J30.9)ActiveconfirmedProblemCervical disc disease (455217473)Cervical disc disease (M50.90)ActiveconfirmedProblemCellulitis (166212343)Cellulitis (L03.90)ActiveconfirmedProblemMigraine with aura (9421258)Migraine with aura (G43.109)ActiveconfirmedProblemOsteoarthritis of hip (813793517)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)ActiveconfirmedProblemAcute bronchiolitis (6848051)Acute bronchiolitis (J21.9)ActiveconfirmedProblemHeart murmur (84454170)Cardiac murmur (R01.1)ActiveconfirmedProblemTricuspid valve disorder (25239979)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)ActiveconfirmedProblemDegeneration of lumbar intervertebral disc (08331959)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)Active confirmedProblemHypercholesterolemia (86545648)Hypercholesterolemia (E78.00) ActiveconfirmedProblemAge-related cataract (88544219)Senile cataract of left eye, unspecified age-related cataract type (H25.9)ActiveconfirmedProblemCOVID-19 (622802789)COVID-19 (U07.1)Activeconfirmed Vital Signs Temperature 100.2 degrees Fahrenheit 08/31/2024 Blood pressure kcopvczcq71 mm Hg12/01/20244265Wfkgcb79 in12/01/2024lood pressure vhulvtzn004 mm Hg12/01/20248011Vhyajl561.0 lbs12/01/2024BMI22.67 kg/m212/01/2024 Procedures Procedure Date Ordered Date Performed Result Body Sit e Dressing/Splint-performed 12/01/2024 N/A Encounters Encounter Location Date Provider Diagnosis [facility] [address] [facility] [place] [address] 12/20/2024 Cornelio Burris Screening for breast cancer Z12.39 [facility] [address] [facility] [place] [place] [address] 08/12/2024 Cornelio Burris Asthma J45.909 [facility] [address] [place] [address] 09/20/2024 Cornelio Staffordy [facility] [facility] [place] [address] 09/20/2024Doug [facility] [facility] [place] [place] [address]/Doug HoyElevated liver function tests R94.5B[facility] [place] [address]/ [facility] [place] [address]/08/2024Doug [facility] [facility] [place] [address]/Doug [facility] [place] [address]/Doug [facility] [place] [address]/Doug [facility] [place] [address]/06/2024 [facility] [place] [address]/09/2024Doug [facility] [facility] [place] [address]/Doug [facility] [facility] [place] [address]/06/2024Doug [facility] [facility] [place] [address]/10/2024Doug [facility] [facility] [place] [address]/11/2024 Cornelio HoyCervical radiculopathy M54.12[facility] [facility] [place] [address]/Doug HoyCervical radiculopathy M54.12 [facility] [facility] [place] [address] 04/22/2024Doug [facility] [facility] [place] [address]/Doug [facility] [facility] [place] [address]/4[facility] [address] [facility] [place] [address]/4Doug [facility] [facility] [place] [address]/08/2024Doug Hoy Encounter for Medicare annual wellness exam Z00.00[facility] [facility] [place] [address]/Doug HoyCellulitis L03.90 and Skin tear of right upper extremity S41.111[facility] [facility] [place] [address]/Doug Hoy Hypertension I10 ; GERD (gastroesophageal reflux disease) K21.9 ; Hypothyroidism E03.9 and Cervicalradiculopathy M54.12[facility] [facility] [place] [address]/10/2024Doug HoyDegenerative arthritis M19.90 ; Cervical disc disease M50.90 ; Cervical radiculopathy M54.12 and Edema R60.9 [address] [place] [address] 11/23/2024Doug HoyHypertension I10 ; Hypothyroidism E03.9 ; Migraine with aura G43.109 and Asthma J45.909[facility] [place] [address]/28/2025Doug HoyAcute bronchitis, unspecified organism J20.9 Assessments Encounter Date Diagnosis (ICD Code) Assessment Notes Treatment Notes Treatment Clinical Notes Section Notes 05/26/2024 Hypertension (ICD-10 - I10) 05/26/2024GERD (gastroesophageal reflux disease) (ICD-10 - K21.9)04/12/2024 Degenerative arthritis (ICD-10 - M19.90)04/12/2024ervical disc disease (ICD-10 - M50.90)08/31/2024ute bronchitis, unspecified organism (ICD-10 - J20.9)if not better - needs ct scan schest dn abd-pelvis with ikdlsafy76/05/2025Encounter for Medicare annual wellness exam (ICD-10 - Z00.00)5Cellulitis (ICD-10 - L03.90)12/01/2024Skin tear of right upper extremity (ICD-10 - S41.111A) 04/13/2024ervical radiculopathy (ICD-10 - M54.12)5Cervical radiculopathy (ICD-10 - M54.12)5Asthma (ICD-10 - J45.909)11/23/2024 Elevated liver function tests (ICD-10 - R94.5)12/20/2024Screening for breast cancer (ICD-10 - Z12.39)11/23/2024Hypertension (ICD-10 - I10)11/23/2024 Hypothyroidism (ICD-10 - E03.9)11/23/2024Migraine with aura (ICD-10 - G43.109) 04/12/2024ervical radiculopathy (ICD-10 - M54.12)05/26/2024Hypothyroidism (ICD- 10 - E03.9)5Cervical radiculopathy (ICD-10 - M54.12)04/12/2024Edema (ICD-10 - R60.9)5Asthma (ICD-10 - J45.909) Plan Of Treatment Pending [...] MRI Cervical Spine w/o contrast * 2024 Dressing/Splint-performed 12/01/2024 CMP - Comprehensive Metabolic Panel 11/05 Basic Metabolic Panel (8) 01/11/2024 MAMM SCREEN BILAT HOWARD 3D GLOBAL* 2024 THYROID PROFILE WITH TSH 12/05/2022 MG MAMM SCREEN 3D NOEL CAD 12/25/2022 MRI CSPINE WO CON 04/12/2024 XR DEXA BONE DENSITY 07/23/2023 THYROID PANEL (T4/TSH/FREE T3) 4 THYROID PANEL (T4/TSH/FREE T3) 5 THYROID PANEL (T4/TSH/FREE T3) 3 CMP (COMP MET TYSON) w/eGFR CKD-EPI 2024 CBC WITH DIFF 11/23/2024 Next Appt Details Provider Name:Cornelio Burris, 08:30:00 AM, [address] [place], [address], Insurance Providers Payer Name Payer Address Payer Phone Subscriber Number Group Number Insured Name Patient Relationship to Insured Coverage Start Date Coverage End Date [place] [address] [place] [address] [id number] Aury Buitrago - patient is the insuredMMO MEDICARE SUPPLEMENTPO [address] [place] [id number], EmilySelf - patient is the insured Medications Administered Medication Instructions Date of Administration Dosage Notes Kenalog-40 mg80 Medical (General) History Medical History History ICD [...] History Surgery Date(Month/Year) SUE and DREW sinus surgeryright foot b5cdvaf septoplastyLens implant OUColonoscopy- Dr. Espinoza 08/05/2023
--- OUTSIDE RECORDS SUMMARY | 2025-01-30 07:47 | XMS_ITS | Encounter Summary ---
Author Organization [facility] Address [address] [place] [address] Care Team Providers Care Cook Fish Eggs Name Role Phone Miko Burris MD Primary Care Provider [phone] Encounter Details DateTypeDepartmentCare Team (Latest Contact Info)Htzztekvvhm82/16/2025Travel Social History Tobacco UseTypesPacks/DayYears UsedDateSmoking Tobacco: FormerCigarettesQuit: 04/06/2006Passive Smoke Exposure: PastSmokeless Tobacco: NeverAlcohol Use Standard Drinks/WeekCommentsNot Currently0 (1 standard drink = 0.6 oz pure alcohol)Caffeine intake: none; quit in 2014CommentsUnknownSex and Gender InformationValueDate RecordedSex Assigned at BirthNot on fileLegal SexFemale 06/18/2022 6:45 PM EDTGender IdentityNot on fileSexual OrientationNot on file documented as of this encounter Plan of Treatment DateTypeDepartmentCare Team (Latest Contact Info)Onfpwxuegjp30/30/2025 9:00 AM EDTOffice Visit [facility] [address] [facility] [address] [place] [address] Renny Orlando, DPM [address] [facility] [address] [place] [address] 03/16/2025 8:30 AM ESTProcedure Visit [facility] [address] [facility] [address] [place] [address] Renny Orlando DPM [address] [facility] 5 [place] [address] 01/10/2026 9:20 AM EDTOffice Visit [facility] [address] [facility] [address] [place] [address] Charles Faith MD [address] [facility] [address] [place] [address] documented as of this encounter Visit Diagnoses Not on filedocumented in this encounter Care Teams Team MemberRelationshipSpecialtyStart DateEnd Date Miko Burris MD [address] [facility] [place] [address] PCP - GeneralFamily Medicine04/30/23documented as of this encounter
--- OUTSIDE RECORDS SUMMARY | 2025-01-30 07:47 | XMS_ITS | Clinical Summary ---
Demographics Address [address] [place] [address] Home Phone Preferred Language en Marital Status Hinduism Affiliation Unknown Race White Ethnic Group Not or Lati no Author Organization [facility] Address [address] [place] [address] Care Team Providers Care Machine Hoop Maker Helper Name Role Phone Miko Burris MD Primary Care Provider [phone] Allergies Active AllergyReactionsCriticalityNoted WxnbDzdmarfdQhdsgizuqsfAxkcfes13/07/2023 DxwgPhmdjhf02/25/1911MydryztlKcnlpsf56/07/2023 Medications MedicationSigDispense QuantityRefillsLast FilledStart DateEnd DateStatus cloNIDine (Catapres) 0.1 mg tablet Take 0.1 mg by mouth in the morning and at bedtime.12/12/2008ctive fenofibrate (Lofibra) 160 mg tablet Take 160 mg by mouth in the morning.Active furosemide (Lasix) 20 mg tablet Take 20 mg by mouth 4 (four) times a week.Active levothyroxine (Synthroid, Levoxyl) 100 mcg tablet levothyroxine 100 mcg tabletActive omeprazole (PriLOSEC) [address] capsule omeprazole 40 mg capsule,delayed releaseActive potassium chloride CR (Klor-Con) 10 mEq ER tablet Take 10 mEq by mouth 4 (four) times a week.Active pravastatin (Pravachol) 10 mg tablet Take 10 mg by mouth at bedtime.Active ubrogepant (Ubrelvy) 50 mg tablet 100 mg in the morning.Active mresiftqcn-lvexpzen-wxhtvwsbvb (Breztri Aerosphere) 160-9-4.8 mcg/actuation HFA aerosol inhaler every 12 (twelve) hours.12/11/2021ctive denosumab (Prolia) 60 mg/mL syringe 1 injectionActive azelastine (Astelin) 137 mcg (0.1 %) nasal spray Administer 2 sprays into each nostril in the morning and at bedtime.02/02/2023 Active aspirin 81 mg EC tablet 1 (one) time each day at the same time.Active lactulose 10 gram/15 mL solution 08/28/2022ctive liothyronine (Cytomel) 5 mcg tablet 1 (one) time each day at the same time.12/04/2022ctive albuterol 2.5 mg /3 mL (0.083 %) nebulizer solution INHALE 3 ML EVERY 6 HOURS AOEJFI8606/30/2023ctive ipratropium (Atrovent) 0.02 % nebulizer solution TAKE 2.5 ML BY NEBULIZATION 4 TIMES A DAY NEEDED FOR WHEEZING OR SHORTNESS OF BREATHActive fluticasone (Flonase) 50 mcg/actuation nasal spray Administer 2 sprays into each nostril in the morning.09/28/2024tive budesonide (Pulmicort) 1 mg/2 mL nebulizer solution Take 1 mg by nebulization in the morning.Active Active Problems ProblemNoted DateDiagnosed DateMigraine with aura and without status migrainosus, not bllbcipfizq56/09/2024 Overview (04/29/2024): The patient has a long-standing [...] hygiene, and regular exercise as tolerated Acute svigcghjxkfzp93Severe persistent ltplik4005/13/2022Family history of premature coronary heart iuyizwl3811/29/2021 Assessment & Plan (11/25/2022 9:53 AM EDT): Remains stable, chest pain resolved and no acute concerns currently Ggnwlasarzekll10/26/2022 Assessment & Plan (11/25/2022 9:52 AM EDT): Continue pravastatin 10 mg daily and fenofibrate- pt states PCP orders her annual labs F/U with PCP Mitral valve rekiywbhgsczl83/26/2022 Assessment & Plan (11/25/2022 9:53 AM EDT): Current echo 05/2022- Mild MR and no concerning symptoms currently Tricuspid valve yzfbvadtlcjza35/26/2022 Assessment & Plan (11/25/2022 9:53 AM EDT): Current echo 05/2022- Mild MR and no concerning symptoms currently Chest pain09/02/2016Chronic kidney mqpaemp1309/02/2016 Encounters DateTypeDepartmentCare SwdtLmybbsmaegb91/04/2025 9:00 AM EDTOffice Visit [facility] at [address] [address] Azam Garcia MD Primary hypertension (Primary Dx); Mixed hyperlipidemia; Edema of lower extremity; Stage 3b chronic kidney disease (CMS/HCC)from Last 3 Months Family History Medical HistoryRelationNameCommentsHeart attackBrotherHeart attackFatherCoronary artery diseaseSisterPeripheral vascular diseaseSisterRelationNameStatusComments BrotherFatherDeceasedMotherDeceasedSisterDeceased Social History Tobacco UseTypesPacks/DayYears UsedDateSmoking Tobacco: FormerCigarettesQuit: 2007Smokeless Tobacco: Never Tobacco Cessation:Counseling Given: Not Answered Alcohol UseStandard Drinks/WeekCommentsNot Currently0 (1 standard drink = 0.6 oz pure alcohol)UT Safety & EnvironmentAnswerDate RecordedFear of Current or Ex-PartnerNot on file05/28/2023Emotionally AbusedNot on file05/28/2023hysically AbusedNot on file05/28/2023Sexually AbusedNot on file02/22/2024Physically or Sexually AbusedNot on file4CommentsUnknownSex and Gender InformationValueDate RecordedSex Assigned at WydzpWbgrct75/30/2025 4:16 PM EDT Legal UqxFasavf29/29/2022 11:56 PM EDTGender NjwznecmOaueem71/30/2025 4:16 PM EDTSexual OrientationHeterosexual or Udhqhhri65/30/2025 4:16 PM EDT Last Filed Vital Signs Vital SignReadingTime TakenCommentsBlood Njsmyzep612/6008 8:43 AM EDT Zeypa1345/04/2025 8:43 AM EDTTemperature--Respiratory Rate--Oxygen Saturation 100%11/07/2024 8:43 AM EDTInhaled Oxygen Concentration--Ccbzop88.5 kg (129 lb) 11/07/2024 8:43 AM NZEErjmyw760 cm (5' 3 )11/07/2024 8:43 AM EDTBody Mass Index 22.85011/07/2024 8:43 AM EDT Plan of Treatment Health MaintenanceDue DateLast DoneCommentsCT Gdgkivttqhwu75/02/1950Colonoscopy 1949Colorectal Cancer Utuqjcaoi03/02/1950FIT-DNA1949FIT1949 FOBT1949Medicare Annual Wellness (AWV)1949Lanzhiposcmwx36/02/1950 Depression Wvkqctwxx52/02/1962Adult Njssdwr4210/06/1971Zoster Vaccines (1 of 2) 10/06/1999Fall Risk Werhynlqk61/02/2015Pneumococcal Vaccine: 50+ Years (2 of 2 - PPSV23, PCV20, or PCV21)COVID-19 Vaccine ( season)/09/2023, 02/04/2023, 01/11/2022, Additional history exists Influenza Vaccine (#1)2024HIB VaccinesAged OutNo longer eligible based on patient's age to complete this topicHPV VaccinesAged OutNo longer eligible based on patient's age to complete this topicIPV VaccinesAged OutNo longer eligible based on patient's age to complete this topicMeningococcal B VaccineAged OutNo longer eligible based on patient's age to complete this topicMeningococcal VaccineAged OutNo longer eligible based on patient's age to complete this topic Rotavirus VaccinesAged OutNo longer eligible based on patient's age to complete this topic Insurance * Guarantor: Adrianna Buitrago TypeRelation to PatientDate of BirthPhone Billing AddressPersonal/FrxeacFtej86/02/1951 [address] [place] [address] MemberSubscriberPlan / Payer (Effective 2014-Present)Name:Adrianna Buitrago Member ID:[id number] Relation to Subscriber:SelfName:Adrianna Buitrago Subscriber ID:[id number] Payer ID:[id number] Group ID:Not on file Type:Medicare Address: [facility] [place] [id number] Care Teams Team MemberRelationshipSpecialtyStart DateEnd Miko Burris MD [address] [facility] [address] [address] [facility] - General05/14/22
--- OUTSIDE RECORDS SUMMARY | 2025-01-30 07:47 | XMS_ITS | Encounter Summary ---
Author Organization [facility] Address [address] [place] [address] Care Team Providers Care Leather Craftsman Name Role Phone Miko Burris MD Primary Care Provider [phone] Encounter Details DateTypeDepartmentCare Team (Latest Contact Info)Rmaapqvauvs78/16/2025amboo flowsheet [facility] [address] [place] [address] [place] [address] Renny Orlando DPM [address] [address] Social History Tobacco UseTypesPacks/DayYears UsedDateSmoking Tobacco: FormerCigarettesQuit: 04/06/2006Passive Smoke Exposure: PastSmokeless Tobacco: NeverAlcohol Use Standard Drinks/WeekCommentsNot Currently0 (1 standard drink = 0.6 oz pure alcohol)Caffeine intake: none; quit in 2014CommentsUnknownSex and Gender InformationValueDate RecordedSex Assigned at BirthNot on fileLegal SexFemale 06/18/2022 6:45 PM EDTGender IdentityNot on fileSexual OrientationNot on file documented as of this encounter Plan of Treatment DateTypeDepartmentCare Team (Latest Contact Info)Qzdmnxrccjl93/30/2025 9:00 AM EDTOffice Visit [facility] [address] [place] [address] [place] [address] Renny Orlando DPM [address] [place] [address] 03/16/2025 8:30 AM ESTProcedure Visit [facility] [address] [facility] 120 [place] [address] Renny Orlando, DPM [address] [facility] [place] 5 [place] [address] 01/10/2026 9:20 AM EDTOffice Visit [facility] [address] [facility] [address] [place] [address] Charles Faith MD [address] [facility] [address] [place] [address] documented as of this encounter Visit Diagnoses Not on filedocumented in this encounter Care Teams Team MemberRelationshipSpecialtyStart DateEnd Date Miko Burris MD [address] [place] [address] PCP - GeneralFamily Medicine04/30/23documented as of this encounter
--- OUTSIDE RECORDS SUMMARY | 2025-01-30 07:47 | XMS_ITS | Clinical Summary ---
Author Organization [facility] Address [address] [place] [address] Support Name Relationship Address Phone Jose Buitrago Personal Relationship [address] [place] [address] Care Team Providers Care Protection Engineer Name Role Phone Miko Burris MD Primary Care Provider [phone] Allergies Active AllergyReactionsCriticalityNoted DateCommentsAmoxicillinItching,Other, Qgyuwqv3705/13/2022Molds & YuxzhUoovbcr85/25/2024MorphineItching,Other05/13/2022 Medications MedicationSigDispense QuantityRefillsLast FilledStart DateEnd DateStatus aspirin 81 MG EC tablet 1 (one) time each day at the same time.Active Ubrogepant 100 MG tablet Take 1 tablet by mouth Daily as needed (migraine)Active pravastatin (Pravachol) 10 MG tablet Take 10 mg by mouth at bedtime.Active omeprazole (PriLOSEC) [address] capsule Take 1 capsule every day by oral route for 90 days.Active cloNIDine (Catapres-TTS) 0.1 MG/24HR cloNIDineActive denosumab (Prolia) 60 MG/ML solution prefilled syringe Inject 60 mg under the skin every 6 (six) monthsActive fenofibrate (Triglide) 160 MG tablet Take 1 tablet by mouth in the morning.Active fluticasone (Flonase) 50 MCG/ACT nasal spray 1 (one) time each day at the same time.Active furosemide (Lasix) 20 MG tablet Take 1 tablet every day by oral route for 90 days.Active lactulose (Chronulac) 10 GM/15ML solution 30ml Oral twice daily as needed for 90 daysActive potassium chloride CR (Klor-Con) 10 MEQ ER tablet Take 1 tablet 3 times a day by oral route for 90 days.Active azelastine (Astelin) 0.1 % nasal spray Indications:Vasomotor rhinitisAzelastine HCl Two sprays per nostril on a b.I.d. basis. 30 mL 1113Active liothyronine (Cytomel) 5 MCG tablet Take by mouth DailyActive ipratropium (Atrovent) 0.02 % nebulizer solution Indications:Asthma, allergic, mild intermittent, uncomplicated (HCC)Take 2.5 mL (0.5 mg) by nebulization 4 (four) times a day as needed for wheezing or shortness of breath 75 mL ctive Kqycubw-Cmzxcufbkoc-Jwlecvglno (Breztri Aerosphere) 160-9-4.8 MCG/ACT aerosol Inhale 1 puff DailyActive levothyroxine (Synthroid, Levoxyl) 100 MCG tablet Take 100 mcg by mouth in the morning. Take before meals.Active cloNIDine (Catapres) 0.1 MG tablet Take 0.1 mg by mouth in the morning and 0.1 mg before bedtime.Active budesonide (Pulmicort) 1 MG/2ML nebulizer solution Indications:Mild intermittent asthma without complication (HCC)INHALE THE CONTENTS OF 1 VIAL VIA NEBULIZER IN THE MORNING AND AT BEDTIME, RINSE MOUTH WITH WATER AFTER TO USE TO REDUCE AFTERTASTE AND INCIDENCE OF CANDIDIASIS. DO NOT SWALLOW 180 mL 5Active SUMAtriptan (Imitrex) 25 MG tablet Take 25 mg by mouth 1 (one) time if needed for migraine May repeat dose once in 2 hours if no relief. Do not exceed 2 doses in 24 hours.Active Active Problems ProblemNoted DateDiagnosed DateMigraine with aura and without status migrainosus, not gejpasrnzfy90/09/2024 Overview (12/14/2023): The patient has a long-standing [...] and regular exercise as tolerated Resolved Problems ProblemNoted DateDiagnosed DateResolved TmwrNegirnvl89/09/202409/hronic migraine without aura without status migrainosus, not dfetlqzsztc37/09/2024 12/15/2023 Encounters DateTypeDepartmentCare OgnpJzmpikqdwri59/16/2025 9:00 AM EDTOffice Visit [facility] [address] [facility] [address] [place] [phone] Renny Orlando DPM Verruca plantaris (Primary Dx); Foot pain, right; Foot pain, left01/19/2025amboo flowsheet [facility] [address] [facility] [address] [place] [phone] Renny Orlando DPM 01/19/20254583Feacsp12/08/2025 9:20 AM EDTOffice Visit [facility] [facility] [address] [facility] [address] [place] [phone] Charles Faith MD Asthma, allergic, mild intermittent, uncomplicated (HCC) (Primary Dx); Allergic rhinitis due to dust mite01/11/2025amboo flowsheet [facility] [address] [place] [address] [place] [phone] Charles Faith MD 01/11/20252049Acbivt80/02/2025 8:40 AM EDTOffice Visit [facility] [address] [facility] [address] [place] [phone] Renny Orlando DPM Verarjun plantaris (Primary Dx); Foot pain, right; Foot pain, left; Pain due to onychomycosis of toenails of both feet01/05/2025amboo flowsheet [facility] [address] [address] [place] [phone] Renny Orlando DPM 01/05/20253040Ofvjdl16/18/2025 8:50 AM EDTOffice Visit [facility] [address] [address] [place] [address] Renny Orlando DPM Verruca plantaris (Primary Dx); Foot pain, right; Foot pain, left12/22/2024amboo flowsheet [facility] [address] [address] [place] [address] Renny Orlando DPM 12/22/20240143Zqgrsf67/04/2025 11:00 AM EDTOffice Visit [facility] [address] [address] [place] [address] Renny Orlando DPM Tinea corporis (Primary Dx); Verruca plantaris; Foot pain, right; Foot pain, left12/08/2024amboo flowsheet [facility] [address] [address] [place] [address] Renny Orlando DPM 12/08/20246543Angazh94/14/2025 1:30 PM EDTOffice Visit [facility] [address] [address] [place] [address] Renny Orlando DPM Tinea corporis (Primary Dx); Verruca plantaris; Foot pain, right; Foot pain, left11/17/2024amboo flowsheet [facility] [address] [address] [place] [address] Renny Orlando DPM 11/17/20242801Fiqosk36/31/2025 9:50 AM EDTOffice Visit [facility] [address] [address] [place] [address] Brown, Renny A, DPM Tinea corporis (Primary Dx); Verruca plantaris; Foot pain, right; Foot pain, left11/03/2024amboo flowsheet [facility] [address] [place] [address] [place] [phone] Renny Orlando DPM 11/03/2024Travelfrom Last 3 Months Family History Medical HistoryRelationNameCommentsCoronary artery diseaseFatherHyperlipidemia FatherHypertensionFatherCoronary artery diseaseMotherHyperlipidemiaMother HypertensionMotherAlcohol abuseOtherCOPDOtherClotting disorderOther HyperlipidemiaOtherHypertensionOtherLearning disabilitiesOtherMental illness OtherObesityOtherPeripheral vascular diseaseOtherCOPDSiblingCancerSibling Coronary artery diseaseSiblingDepressionSiblingDiabetesSiblingHyperlipidemia SiblingHypertensionSiblingMigrainesSiblingRelationNameStatusCommentsFather DeceasedMotherDeceasedOtherSibling Social History Tobacco UseTypesPacks/DayYears UsedDateSmoking Tobacco: FormerCigarettesQuit: 04/06/2006Passive Smoke Exposure: PastSmokeless Tobacco: Never Tobacco Cessation:Counseling Given: Yes Alcohol UseStandard Drinks/WeekCommentsNot Currently0 (1 standard drink = 0.6 oz pure alcohol)Caffeine intake: none; quit in 2014CommentsUnknownSex and Gender InformationValueDate RecordedSex Assigned at BirthNot on fileLegal Sex Sfgpai4706/18/2022 6:45 PM EDTGender IdentityNot on fileSexual OrientationNot on file Last Filed Vital Signs Vital SignReadingTime TakenCommentsBlood Dmgpjzlg636/8011 8:33 AM EST Hzaud9368 8:33 AM ESTTemperature--Respiratory Vxwg1654 8:52 AM EDTOxygen Saturation--Inhaled Oxygen Concentration--Akbnwk85.1 kg (128 lb) 01/19/2025 8:52 AM MBVOnwmjl671 cm (5' 3 )01/19/2025 8:52 AM EDTBody Mass Index 22.6701/19/2025 8:52 AM EDT Plan of Treatment DateTypeDepartmentCare Team (Latest Contact Info)Culegxxeisv13/30/2025 9:00 AM EDTOffice Visit [facility] [address] [place] [address] [place] [phone] Renny Orlando, DPM [address] [facility] [address] [place] [address] 03/16/2025 8:30 AM ESTProcedure Visit [facility] [address] [place] [address] [place] [address] Renny Orlando, LEORAM [address] [facility] [address] [place] [address] 01/10/2026 9:20 AM EDTOffice Visit [facility] [address] [place] [address] [place] [phone] Charles Faith MD [address] [place] [address] [place] [address] Health MaintenanceDue DateLast DoneCommentsCT Ncfjjrndtyfk16/02/1950FIT-DNA 1950FIT1950FOBT1950 4887Dlamapwgwpipt03/02/1950Colonoscopy Colorectal Cancer Ooqfqvaee71/13/2019Pneumococcal Vaccine: 65+ Years (2 of 2 - PCV20 or PCV21)Influenza Vaccine (#1) 2024 Insurance * Guarantor: Adrianna Buitrago TypeRelation to PatientDate of BirthPhone Billing AddressPersonal/VuytchZrrt56/02/1951 [address] [place] [address] Care Teams Team MemberRelationshipSpecialtyStart DateEnd Miko Burris MD [address] [place] [phone] PCP - GeneralFamily Medicine04/30/23
--- OUTSIDE RECORDS SUMMARY | 2025-01-30 07:47 | XMS_ITS | Patient Health Record ---
Author Organization [facility] Address [address] [place] [address] Care Team Providers Care Float Tender Name Role Phone José Miguel Joseph Unavailable [phone] Miko Burris Unavailable Unavailable xxSophia Austin Unavailable Allergies Allergen (clinical drug ingredient) Drug/Non Drug Allergy documented on EMR Reaction Allergy Type Onset Date Status amoxicillin amoxicillin itching Drug Allergy Activemorphinemorphineswelling, itchDrug AllergyActive Reason For Referral Reason NO AUTH REQ......... ............................NOT SCHEDULED..................................MCR/MMO MRI LEFT SHOULDER TO BE DONE AT [facility] Diagnosis 1 Tear of left rotator cuff, unspecified tear extent, unspecified whether traumatic (M75.102) Referral Organization [facility] Referring Provider First Name Fayearchie Referring Provider Last Name St Adhikari Referring Provider Speciality Orthopedic Surgery Referred Organization [facility] Referred Address [address] [place], [place],[address], Procedure 1 MRI Joint Upper Ext w/o Dye (93532) General Notes Farida Doyle 025 11:02:20 AM [...] alcohol in the p ast year? No Dnnjaq5CckwbipexhwpbjLntgituqIgpjlxu Control (Standard) Question Answer Notes Tobacco use: Former smoker When did you stop smoking?06/14/2006How long has it been since you last smoked? Greater than 10 years Problems Problem Type SNOMED Code ICD Code Onset Dates Problem Status W/U Status Risk Notes Problem 73384200 Cervical radiculopathy (M54. 12) RtukvjdvpcvwhsxDeyxndf52710418Puihkjnk spinal stenosis (M48.02)Activeconfirmed Mxklagq40843345Uyvbcw weakness (M62.81)JjsuzgnbcerfpfjMsqvaxr51021324Qhuhi cervical disc degeneration at C4-C5 level (M50.321)ActiveconfirmedProblem 94001562Owmux cervical disc degeneration at C5-C6 level (M50.322)Activeconfirmed Lvwhjeo24787427Qlnvu cervical disc degeneration at C6-C7 level (M50.323)Active zvbpsokafShkfqql61190200Mdalh cervical disc degeneration, high cervical region (M50.31)JdkqitiujdtbkqvSdbpjza964175303Iurnbeqj tear of left rotator cuff, unspecified whether traumatic (M75.122)OrvyoiykewtwcbcRrvaxzb246127718302 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)Activeconfirmed Encounters Encounter Location Date Provider Diagnosis [address] [place] [address] 04/22/2024 Sophia xxWhiteshailesh Other cervical disc degeneration, high cervical region M50.31 ; 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-C5 level M50.321 ; Other cervical disc degeneration at C5-C6 level M50.322 ; Other cervical disc degeneration at C6-C7 level M50.323 ; Cervical radiculopathy M54.12 ; Neuroforaminal stenosis of cervical spine M48.02 and Muscle weakness M62.81 [address] [place] [address] 05/13/2024 [facility] Other cervical disc degeneration, high cervical region [...] C4-C5 level (ICD-10 - M50.321) 1. C3-7 DDD/radiculopathy/neuroforaminal stenosis 2. Left rotator cuff weakness 04/22/2024Other cervical disc degeneration, high cervical region (ICD-10 - M50.31) 1. C3-7 DDD/radiculopathy/neuroforaminal stenosis 2. Left rotator cuff weakness 05/13/2024Other cervical disc degeneration, high cervical region (ICD-10 - M50.31) 1. Left rotator cuff tear 2. C3-7 DDD/radiculopathy/neuroforaminal stenosis 05/13/2024omplete tear of left rotator cuff, unspecified whether traumatic (ICD-10 - M75.122) 1. Left rotator cuff tear 2. C3-7 DDD/radiculopathy/neuroforaminal stenosis 05/13/2024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-C5 level (ICD-10 - M50.321) 1. Left rotator cuff tear 2. C3-7 DDD/radiculopathy/neuroforaminal stenosis 04/22/2024Other cervical disc degeneration at C5-C6 level (ICD-10 - M50.322) 1. C3-7 DDD/radiculopathy/neuroforaminal stenosis 2. Left rotator cuff weakness 04/22/2024Other cervical disc degeneration at C6-C7 level (ICD-10 - M50.323) 1. C3-7 DDD/radiculopathy/neuroforaminal stenosis 2. Left rotator cuff weakness 05/13/2024Other cervical disc degeneration at C5-C6 level (ICD-10 - M50.322) 1. Left rotator cuff tear 2. C3-7 DDD/radiculopathy/neuroforaminal stenosis 05/13/2024Other cervical disc degeneration at C6-C7 level (ICD-10 - M50.323) 1. Left rotator cuff tear 2. C3-7 DDD/radiculopathy/neuroforaminal stenosis 04/22/2024ervical radiculopathy (ICD-10 - M54.12) 1. C3-7 DDD/radiculopathy/neuroforaminal stenosis 2. Left rotator cuff weakness 04/22/2024Neuroforaminal stenosis of cervical spine (ICD-10 - M48.02) 1. C3-7 DDD/radiculopathy/neuroforaminal stenosis 2. Left rotator cuff weakness 05/13/2024ervical spinal stenosis (ICD-10 - M48.02) 1. Left rotator cuff tear 2. C3-7 DDD/radiculopathy/neuroforaminal stenosis 05/13/2024ervical radiculopathy (ICD-10 - M54.12) 1. Left rotator cuff tear 2. C3-7 DDD/radiculopathy/neuroforaminal stenosis 04/22/2024Muscle weakness (ICD-10 - M62.81) 1. C3-7 DDD/radiculopathy/neuroforaminal stenosis 2. Left rotator cuff weakness 04/22/2024Other Plan established by Dr. Caba. Patient evaluated [...] contact Dr. Caba. Best regards, 1. C3-7 DDD/radiculopathy/neuroforaminal stenosis 2. Left rotator cuff weakness 05/13/2024Other Plan established by Dr. Caba. At this time, Dr. Caba discussed MRI results with the patient. Patient would like to continue with conservative care. She can follow-up with us on an as-neededbasis. If she is interested in surgical intervention [...] rotator cuff tear 2. C3-7 DDD/radiculopathy/neuroforaminal stenosis Plan Of Treatment Pending Test Test Name Order Date Cervical spine 2 v FLEX, EXT - 66180 MRI Shoulder Left w/o Contrast 5 Insurance Providers Payer Name Payer Address Payer Phone Subscriber Number Group Number Insured Name Patient Relationship to Insured Coverage Start Date Coverage End [place] [address] [place] [address] [id number] Lilly [employer] - [facility] is the [facility]PO [address] [place] [id number], EMILYSelf - patient is the insured Medical (General) History Medical History History ICD Code Hypertension Heart murmurAsthmaBronchitisThyroid diseaseGERD:OsteoporosisOsteoarthritis
--- NOTE | 2025-01-30 07:48 | MM_ITS ---
Patient Name: AKIRA PERALTA MR#: [id number] : 1950 Exam Date: 01/30/2025 Ordering Doctor: DR JENNY NATARAJAN . RADIOLOGY REPORT PROCEDURE: MM TOMOSYNTHESIS SCREENING BI COMPARISON: MM TOMOSYNTHESIS SCREENING BI, 01/29/2024. MM TOMOSYNTHESIS SCREENING BI, 01/23/2023. MG MAMM SCREEN 3D NOEL CAD, 01/22/2022. MG MAMM NOEL SCRN W CAD DIG, 11/09/2012. INDICATIONS: screening Calculator Name NCI Breast Cancer Risk Assessment Tool 5 Year Breast Cancer Risk 1.40% Lifetime Breast Cancer Risk 3.00% Personal Breast Cancer No Personal Ovarian Cancer No Treatments None Family Cancers Sister with ovarian cancer at age 53; Brother with pancreatic cancer at age 43; Uncle-maternal with bone cancer at age ~60; Aunt-maternal with all over cancer at age ~60; Uncle-maternal with lung cancer at age ~60. LOCATION: [facility] BREAST COMPOSITION: There are scattered areas of fibroglandular density. FINDINGS: RIGHT BREAST: No significant suspicious finding. LEFT BREAST: No significant suspicious finding. DIAGNOSTIC CATEGORY 1--NEGATIVE. RECOMMENDATIONS: ROUTINE MAMMOGRAM AND CLINICAL EVALUATION IN 12 MONTHS. Dictated by: Naldo Montes DO on 01/30/2025 at 10:52 Approved by: Naldo Montes DO on 01/30/2025 at 10:57
--- OUTSIDE RECORDS SUMMARY | 2025-01-30 07:50 | XMS_ITS | CCD ---
Author Organization [facility] Team Providers Care Footwear Sales Leader Name Role Phone HOY ., DR ALVARADO [...] CADENA Consulting Unavailable ERNIE CADENA Attending Unavailable Miko Natarajan MD Primary Care Provider [phone] Issa VALE Attending Unavailable Issa VALE Attending Unavailable Miko Natarajan MD Primary Care Provider [phone] Miko Natarajan MD Primary Care Provider [phone] HOMER GARCIA Attending Unavailable ALGHOTHANI, MOHAMAD Attending Unavailable Miko Natarajan MD Primary Care Provider [phone] RENNY LACY Attending Unavailable RENNY LACY A Attending Unavailable BROWNRENNY A Attending Unavailable BROWNCIRORENNY A Attending Unavailable BROWN, RENNY A Attending Unavailable BROWN, RENNY A Attending Unavailable BROWN, RENNY A Attending Unavailable BROWNCIRORENNY A Attending Unavailable RAMBASEK, KEILA E Attending Unavailable BROWNHEMANTS A Attending Unavailable RAMBASEK, KEILA E Attending Unavailable RENNY LACY A Attending Unavailable Allergies Allergy ClassificationReported Allergen(s)Allergy TypeDate of OnsetReaction(s) Facility (2 sources)Amoxicillin; Translations: [AMOXICILLIN]Drug Szssvdm03-75-4546Zzg [facility] Repository (3 sources)Morphine; Translations: [morphine]Drug Rdulpjz30-82-2502Ssj [facility] Repository (20 sources)AmoxicillinDrug Tufxawh60-82-5051Bdmpcst, Other, UnknownNOMS Healthcare (20 sources)Mold ExtractDrug Honprmo13-38-9848FqtxriqUNAI Healthcare (20 sources)MorphineDrug Zsbsldz00-72-1068Bscmgiy, OtherNOMS Healthcare (1 source)Penicillin; Translations: [penicillin][facility] ([facility] source)No Known Medication Allergies; Translations: [No Known Medication Allergies]Propensity to adverse reactions (disorder)[facility] Repository (1 source)Mold Extract; Translations: [MOLD]Drug Ssvdjmv34-96-6924U[facility]ygfunbReg[facility] Rep[facility] Medications Current Medications MedicationDrug Class(es)DatesSig (Normalized)Sig (Original)aspirin 81 mg delayed release oral tablet (20 sources)Platelet Aggregation Inhibitor, Nonsteroidal Anti-inflammatory Drug aspirin 81 MG EC tablet 1 (one) time each day at the same time. Activeazelastine hydrochloride 0.137 mg/actuat metered dose nasal spray (20 sources)Histamine-1 Receptor AntagonistStart: 83-09-2201thxhrdbfih (Astelin) 0.1 % nasal spray Indications: Vasomotor rhinitis Azelastine HCl Two sprays per nostril on a b.I.d. basis. 30 mL 11 01/05/2023 Activebetamethasone 0.5 mg/ml / clotrimazole 10 mg/ml topical cream (5 sources)Azole Antifungal, CorticosteroidStart: 11-03-2024 End: 35-48-8498efcfrxmqsenn-betamethasone (Lotrisone) cream Indications: Tinea corporis Apply 1 application topically in the morning and 1 application before bedtime. 45 g 1 11/03/2024 12/03/2024 Activebudesonide 0.5 mg/ml inhalation suspension (20 sources)CorticosteroidStart: 23-62-5076lfve 1 dose by mouth at bedtime budesonide (Pulmicort) 1 MG/2ML nebulizer solution Indications: Mild intermittent asthma without complication (HCC) INHALE THE CONTENTS OF 1 VIAL VIA NEBULIZER IN THE MORNING AND AT BEDTIME, RINSE MOUTH WITH WATER AFTER TO USE TO REDUCE AFTERTASTE AND INCIDENCE OF CANDIDIASIS. DO NOT SWALLOW 180 mL3 08/15/2024 ActiveStart: 01-05-2023 End: 34-38-8801ufzc 2 mL by mouth in the morningbudesonide (Pulmicort) 1 MG/2ML nebulizer solution Indications: Mild intermittent asthma without complication (CMS/HCC) Take 2 mL (1 mg) by nebulization in the morning and 2 mL (1 mg) before bedtime.Rinse mouth with water after use to reduce aftertaste and incidence of candidiasis. Do not swallow.. 124 mL 11 07/21/2023 07/20/2024 Rlimjb833 actuat budesonide 0.16 mg/actuat / formoterol fumarate 0.0048 mg/actuat / glycopyrrolate 0.009 mg/actuat metered dose inhaler (20 sources)Corticosteroid, beta2-Adrenergic Agonisttake 1 puff(s) by inhalation once czlzvHyajqzo-Bxywvgcnuxx-Mfhvpwjjjx (Breztri Aerosphere) 160-9-4.8 MCG/ACT aerosol Inhale 1 puff Daily Omugrv286 hr cloNIDine 0.41811 mg/hr transdermal system (20 sources)Central alpha-2 Adrenergic Agonisttake 1 tablet by mouth in the morningcloNIDine (Catapres) 0.1 MG tablet Take 0.1 mg by mouth in the morning and 0.1 mg before bedtime. ActivecloNIDine (Catapres-TTS) 0.1 MG/24HR cloNIDine Active1 ml denosumab 60 mg/ml prefilled syringe (20 sources)RANK Ligand Inhibitordenosumab (Prolia) 60 MG/ML solution prefilled syringe Inject 60 mg under the skin every 6 (six) months Activefenofibrate 160 mg oral tablet (20 sources)Peroxisome Proliferator Receptor alpha Agonisttake 1 tablet by mouth in the morningfenofibrate (Triglide) 160 MG tablet Take 1 tablet by mouth in the morning. Activefluticasone propionate 0.05 mg/actuat metered dose nasal spray (20 sources)Corticosteroidfluticasone (Flonase) 50 MCG/ACT nasal spray 1 (one) time each day at the same time. Activefurosemide 20 mg oral tablet (20 sources)Loop Diuretictake 1 tablet by mouth once dailyfurosemide (Lasix) 20 MG tablet Take 1 tablet every day by oral route for 90 days. Activeipratropium bromide 0.2 mg/ml inhalation solution (20 sources)AnticholinergicStart: 10-12-2023 End: 64-42-5101wqlfdsefwox (Atrovent) 0.02 % nebulizer solution Indications: Asthma, allergic, mild intermittent, uncomplicated (HCC) Take 2.5 mL (0.5 mg) by nebulization 4 (four) times a day as needed for wheezingor shortness of breath 75 mL 11 10/12/2023 Activelactulose 667 mg/ml oral solution (20 sources)Osmotic Laxativetake 30 mL by mouth twice daily as neededlactulose (Chronulac) 10 GM/15ML solution 30ml Oral twice daily as needed for 90 days Activelevothyroxine sodium 0.1 mg oral tablet (20 sources)l-Thyroxinetake 1 tablet by mouth before mealtimelevothyroxine (Synthroid, Levoxyl) 100 MCG tablet Take 100 mcg by mouth in the morning. Take beforemeals. Activeliothyronine sodium 0.005 mg oral tablet (20 sources)l-Triiodothyroninetake 1 tablet by mouth once dailyliothyronine (Cytomel) 5 MCG tablet Take by mouth Daily Activeomeprazole 40 mg delayed release oral capsule (20 sources)Proton Pump Inhibitortake 1 capsule by mouth once dailyomeprazole (PriLOSEC) [address] capsule Take 1 capsule every day by oral route for 90 days. Activepotassium chloride 10 meq extended release oral tablet (20 sources)take 1 tablet by mouth three times dailypotassium chloride CR (Klor- Con) 10 MEQ ER tablet Take 1 tablet 3 times a day by oral route for 90 days. Activepravastatin sodium 10 mg oral tablet (20 sources)HMG-CoA Reductase Inhibitortake 1 tablet by mouth at bedtime pravastatin (Pravachol) 10 MG tablet Take 10 mg by mouth at bedtime. Active SUMAtriptan 25 mg oral tablet (5 sources)Serotonin-1b and Serotonin-1d Receptor AgonistSUMAtriptan (Imitrex) 25 MG tablet Take 25 mg by mouth 1 (one) time if needed for migraine May repeat dose once in 2 hours if no relief. Do not exceed 2 doses in 24 hours. Active ubrogepant 100 mg oral tablet (20 sources)take 1 tablet by mouth every twenty-four hours as neededUbrogepant 100 MG tablet Take 1 tablet by mouth Daily as needed (migraine) ActiveUbrogepant (Ubrelvy) 50 MG tablet Ubrelvy Active Problems Active Problems Problem ClassificationProblemDateDocumented DateEpisodic/ChronicAcute bronchitis (5 sources)Acute bronchitis, unspecified; Translations: [ACUTE BRONCHITIS UNSPECIFIED]Onset: 49-77-0213NgodvoglFfqlmt (5 sources)IgE-mediated allergic asthma; Translations: [Mild intermittent asthma, uncomplicated]82-58-9171ZzmnyoqAzjkhba kidney disease (2 sources)Chronic kidney disease; Translations: [Chronic kidney disease, stage 3b]Onset: 95-66-6078Etqugprkr of lipid metabolism (5 sources)Hyperlipidemia, unspecified; Translations: [Mixed hyperlipidemia] Onset: 18-79-9815AocgzgmWoqwkvaxmz disorders (1 source)Gastro-esophageal reflux disease without esophagitis; Translations: [GERD WITHOUT ESOPHAGITIS]Onset: 28-75-4493YbfmpgeRtakaoqnw hypertension (6 sources)Essential (primary) hypertension; Translations: [ESSENTIAL PRIMARY HYPERTENSION]Onset: 53-13-3351PezxxatEizvkutr; including migraine (20 sources)Migraine without aura, not intractable, without status migrainosus; Translations: [Migraine with aura]Onset: 09-18-2021 Resolved: 38-05-2470XofbeosXderh valve disorders (6 sources)Nonrheumatic mitral (valve) insufficiency; Translations: [Rheumatic disorders of both mitral and tricuspid valves]Onset: 78-72-2377AksodrgGypfeoa (13 sources)Onychomycosis; Translations: [Tinea unguium]75-97-0586Avfipxru Nonspecific chest pain (4 sources)Chest pain, unspecified; Translations: [CHEST PAIN UNSPECIFIED]Onset: 04-22-1931LdaoffmfNertdcwuoqu deficiencies (1 source)Vitamin D deficiency, unspecified; Translations: [VITAMIN D DEFICIENCY UNSPECIFIED]Onset: 96-96-3924AdzbsrzXfehyfhepubv (4 sources)Age-related osteoporosis without current pathological fracture; Translations: [AGE-REL OSTEOPOR W/OCURR PATH FX]Onset: 76-44-6768AwevzalKnork connective tissue disease (20 sources)Pain in right foot; Translations: [Pain in right foot]01-10-2024 EpisodicOther connective tissue disease (20 sources)Pain in left foot; Translations: [Pain in left foot]01-10-2024 EpisodicOther connective tissue disease (3 sources)Pain of toes of bilateral feet; Translations: [Pain in right toe(s)] 50-44-9259QfzgyczrXdmkz skin disorders (3 sources)Asteatosis cutis; Translations: [Xerosis cutis]80-95-9347Yurxvxlm Other upper respiratory disease (2 sources)Allergic rhinitis due to house dust mite; Translations: [Other allergic rhinitis]67-44-9810UwnnnnnQcfohdzjsl and visceral atherosclerosis (1 source)Peripheral vascular disease, unspecified; Translations: [PERIPHERAL VASCULAR DISEASE UNS]Onset: 28-83-2668TozmppuNhetylgp codes; unclassified (3 sources)Localized edema; Translations: [LOCALIZED EDEMA]Onset: 06-11-2022 EpisodicThyroid disorders (1 source)Hypothyroidism, unspecified; Translations: [HYPOTHYROIDISM UNSPECIFIED]Onset: 92-54-6110NssnxkaPuvzvrjunktm (3 sources)OTHER LOW BACK PAIN; Translations: [OTHER LOW BACK PAIN]Onset: 51-94-4416Yngiqxulydbc (4 sources)CONTACT W/AND (SUSP) EXPOS COVID-19; Translations: [CONTACT W/AND (SUSP) EXPOS COVID-19]Onset: 27-98-7033Zsnlb infection (20 sources)Verruca plantaris; Translations: [Plantar wart]15-19-7789Kqdkepyq Past or Other Problems Problem ClassificationProblemDateDocumented DateEpisodic/ChronicDeficiency and other anemia (1 source)Anemia, unspecified; Translations: [ANEMIA UNSPECIFIED]Onset: 79-76-6156WmsatyiwUxexegxv mellitus without complication (1 source)Other abnormal glucose; Translations: [OTHER ABNORMAL GLUCOSE]Onset: 78-92-3326ZashkwswOezgt screening for suspected conditions (not mental disorders or infectious disease) (8 sources)Encounter for screening mammogram for malignant neoplasm of breast; Translations: [Other abnormal and inconclusive findings on diagnostic imaging of breast]Onset: 27-58-6258JbtskyycTnxnh upper respiratory infections (1 source)Acute sinusitis, unspecified; Translations: [ACUTE SINUSITIS UNSPECIFIED]Onset: 48-11-3894YaoxjnoxUusknnsa codes; unclassified (1 source)Family history of malignant neoplasm of trachea, bronchus and lung; Translations: [FAM HX MALIG NEOPLSM TRACH BRON LNG]Onset: 86-82-4951Rzqtrhex Residual codes; unclassified (1 source)Family history of malignant neoplasm of ovary; Translations: [FAM HX MALIGNANT NEOPLASM OVARY]Onset: 43-21-7169RhqvxgkmAtsmhtpy codes; unclassified (1 source)Family history of malignant neoplasm of other organs or systems; Translations: [FAM HX MALIG NEOPLASM OTH ORGN/SYS]Onset: 39-42-5258Giblennx Unclassified (1 source)OTHER LOW BACK PAIN; Translations: [OTHER LOW BACK PAIN]Onset: 79-81-3618Rtqjkukoaemr (1 source)CONTACT W/AND (SUSP) EXPOS COVID-19; Translations: [CONTACT W/AND (SUSP) EXPOS COVID-19]Onset: 05-22-2022 Results Test NameValueInterpretationReference RangeFacilityOffice Visiton 11-07-2024 Follow-up [id number] Akira Buitrago 1950 F Date Provider Department Center 11/07/2024 367-HOMER GARCIA [facility] [place] Family History Problem Relation Age of Onset Heart attack Father Coronary artery disease Sister Peripheral vascular disease Sister Heart attack Brother Family Status - Relation Status Age at Mother Father Sister Brother Level of Service:88136 [place] OFFICE/OUTPATIENT ESTABLISHED MOD [facility] [place] Vis[facility] 64-33-4396Sobats-up visit [id number] Akira Buitrago 1950 F Date Provider Department Center 04/29/2024 3848-JUANITA BRITO [facility] [place] Family History Problem Relation Age of Onset Heart attack Father Coronary artery disease Sister Peripheral vascular disease Sister Heart attack Brother Family Status - Relation Status Age at Father Sister Brother Level of Service:95500 [place] OFFICE/OUTPATIENT ESTABLISHED LOW MDM 20 [facility] [place] Colonoscopyon 85-93-2968Scsgyjn [id number]#1.00TIFFGreene Memorial HospitalReminderson 32-44-6333Qqbdpdijq From: Kandi Cesar LPN To: N - Clinical; Sent: 08/07/2023 07:59:01 EDT Show up: 07/06/2033 07:59:00 EDT Subject: colonoscopy recall Due Date/Time: 08/04/2033 07:00:00 EDT Reminder/Recall If patient is in good health, she is due for screening colonoscopy 08/04/2033. [facility] HospitalConsent for Procedure/Surgeryon 06-10-2023 Consent for Procedure/[id number]#1.00TIFF [facility] HospitalAmbulatory Visit Summaryon 50-70-8689Npvluoflyp Visit Summary AKIRA BUITRAGO :1950 Visit Date:06/09/2023 [...] budesonide (budesonide 1 mg/2 mL inhalation suspension) budesonide/formoterol/glycopyrrolate (Breztri Aerosphere) clonidine (cloNIDine 0.1 mg tab) denosumab (Prolia 60 mg/mL subcutaneous solution) fenofibrate (fenofibrate 160 mg oral tablet) fluticasone nasal (Flonase 0.05 mg/inh [place]) furosemide (Lasix 20 mg Tab) lactulose (lactulose [...] 137 mcg spray) 2 Sprays Nasal Inhalation Everyday Contact prescribing physician if questions or concerns [...] Unchanged fluticasone nasal (Flonase 0.05 mg/ inh [place]) 2 Sprays Nasal Inhalation Every day Contact prescribing physician if questions or concerns Unchanged furosemide (Lasix 20 mg Tab) 1 Tablets By Mouth Every day Contact prescribing physician if questions or concerns Unchanged lactulose (lactulose 10 g/ 15 mL Oral Syrup) 30 Milliliter By Mouth 2 times a day Contactprescribing physician if questions or concerns Unchanged levothyroxine [...] you for choosing us for your care. [facility] HospitalPhysician Referralon 05-28-2023 Physician [id number]#1.00TIFFNormalUpper Valley Medical CenterCALCIUMon 82-06-4558Rhjqcbj [Mass/Vol]9.8 mg/dLNormal 8.5-10.1[facility] Medical CenterComment on above:Performed By: #### CA, CREA #### [facility] [address] [place] [address] Dr. Zuly MedinaCREATININEon 74-41-5408Prjjizkemm [Mass/Vol]1.41 mg/dLCritically high0.55-1.02[facility] Medical CenterComment on above:Performed By: #### CA, CREA #### [facility] [address] [place] [address] Dr. Caruso ChangEGFR-AF AHAVLYQB93 mL/min/1.49q3Dpttheqzhe low>=60[facility] Medical CenterComment on above:Performed By: #### JEISON MURILLO #### [facility] [address], [place] [address] Dr. Zuly HuiGFR-NON AF ELOZATBB91 mL/min/1.20b9Lskbvjcfxg low>=60[facility] Medical CenterComment on above:Performed By: #### JEISON MURILLO #### [facility] [address], [place] [address] Dr. Zuly MedinaMRI LSPINE WO CONon 64-19-5573XXC LSPINE WO CONEXAMINATION: MRI LSPINE WO CON HISTORY: Low back [...] or foraminal stenosis Electronically authenticated by: TESSA BUCKLEY Date: 2022-06-02 07:[address] [place], [place] [address]VC VENOUS REFLUX NOEL LMTon 39-04-2833VJ VENOUS REFLUX NOEL LMT Patient: AKIRA BUITRAGO Exam Date: 05/30/2022 : 1950 Gender:F Ordering : DR MIKO NATARAJAN . Admission #: [id number] Family : Order #: [id number] CLICK HERE TO VIEW EXAM RADIOLOGY REPORT [...] thrombus. Compressibility: Normal. Flow: Deep venous reflux. Work Study Student: Tech Note: Proximal medial lower leg varicose vein measures 1.7 mm with 0.3s reflux. Mid medial calf varicose vein measures 1.5 mm without reflux. CONCLUSION: 1. Minimal right great, small and anterior accessory saphenous vein insufficiency without dilatation 2. Single short segment of moderate reflux left distal great saphenous vein 3. Bilateral deep vein reflux Dictated by: Tessa Buckley MD on 05/30/2022 at 11:18 Approved by: Tessa Buckley MD on 05/30/2022 at 11:20[facility] STRESS/REST MULTIon 63-23-0147YB STRESS/REST MULTIPatient: AKIRA BUITRAGO Exam Date: 05/26/2022 : 1950 Gender:F Ordering : JUANITA BRITO Admission #: [id number] Family : DR MIKO NATARAJAN . Order #: [id number] CLICK HERE TO VIEW EXAM RADIOLOGY REPORT [...] see Dr. Garcia's report. Dictated by: Hosea Bowens M.D. on 05/27/2022 at 12:58 Approved by: Hosea Bowens M.D. on 05/27/2022 at 13:00[facility] HospitalXR LSPINE MIN 4 VIEWSon 50-56-3689CE LSPINE MIN 4 VIEWSEXAMINATION: XR LSPINE MIN 4 VIEWS HISTORY: Low [...] for further evaluation. Electronically authenticated by: HOSEA BOWENS Date: 2022-05-23 14:32[facility] HospitalCovid-19 PCR (CVDTBH)on 49-55-6689RPFV-CoV-2 (COVID-19) RNA MARY+probe Ql (Unsp spec)Not detectedNormalNOT DETECTEDThe [facility] Comment on above:Result Comment: This test is not yet approved or cleared by the [place] FDA. When there are no FDA-approved or cleared tests available, and other criteria are met, FDA can make tests available under an emergency access mechanism called an Emergency Use Authorization (EUA). The EUA for this test is supported by the Machinist Mate of Health and Human Service's (HHS's) declaration that circumstances exist to justify the emergency use of in vitro diagnostics for the detection and/or diagnosis of the virus that causes COVID- 19. This EUA will remain in effect (meaning [...] of clinical signs and symptoms consistent with SARS-CoV-2.Performed By: #### CVDTBH #### [facility] [address] [place] [address] Dr. Zuly Marie AND B AGon 32-30-6256MTTGOJYPUJIRTOhioHealth [facility] on above:Result Comment: Negative for Flu A protein angiten. Infection due to Flu A cannot be ruled out. FluA angiten in the sample may be below the detection limit of the test.Performed By: #### INFLUAB #### [facility] [address] [place] [address] Dr. Zuly HickmanNEGKRISTINA [facility] on above: Result Comment: Negative for Flu B protein antigen. Infection due to Flu B cannot be ruled out. FluB antigen in the sample may be below the detection limit of the test.Performed By: #### INFLUAB #### [facility] [address] [place] [address] Dr. Zuly Marie AGNegativeNormalNEGATIVE SEE COMMENTThe [facility] CenterCommclaren greater [facility] on above:Performed By: #### INFLUAB #### [facility] [address] [place] [address] Dr. Zuly Awad AGNegativeNormalNEGATIVE SEE COMMENTThe [facility] CenterCommclaren [facility] on above:Performed By: #### INFLUAB #### [facility] [address] [place] [address] Dr. Caruso ChangECHOCARDIFelton M/2D COMPLETEon 06-97-6683ZRSRAEKROH M/2D COMPLETE Patient: AKIRA BUITRAGO Exam Date: 05/14/2022 : 1950 Gender:F Ordering : JUANITA BRITO Admission #: [id number] Family : DR MIKO NATARAJAN . Order #: [id number] CLICK HERE TO VIEW EXAM ECHOCARDIOGRAM REPORT [...] 2.72 mm[Hg] Right Atrium Dictated by: Homer Garcia M.D. on 05/15/2022 at 18:48 Approved by: Homer Garcia M.D. on 05/15/2022 at 18:51[facility] HospitalMG MAMM SCREEN 3D NOEL CADon 82-07-4559UL MAMM SCREEN 3D NOEL CADPatient: IFTIHKAR AKIRA Ya Exam Date: 01/22/2022 : 1950 Gender:F Ordering : DR MIKO NATARAJAN . Admission #: [id number] Family : Order #: [id number] CLICK HERE TO VIEW EXAM RADIOLOGY REPORT [...] lung cancer at age 59. LOCATION: [facility] BREAST COMPOSITION: Scattered areas fibroglandular [...] LUMP SHOULD BE BIOPSIED. Dictated by: Hosea Bowens M.D. on 01/22/2022 at 14:28 Approved by: Hosea Bowens M.D. on 01/22/2022 at 14:36NormalThe [facility] CenterCALCIUMon 41-16-9820Kosgbrx [Mass/Vol]10.0 mg/dLNormal8.5-10.1The [facility] CenterComment on above:Performed By: #### CHIDI MCHUGH #### [facility] [address] [place] [address] Dr. Zuly MedinaCREATININEon 84-45-0275Ekkrkuqhun [Mass/Vol]1.33 mg/dLCritically high0.55-1.02The [facility] CenterComment on above:Performed By: #### CHIDI MCHUGH #### [facility] [address] [place] [address] Dr. Zuly HuiGFR-AF GKWCGDPN79 mL/min/1.03g6Uzifmqllvv low>=60The [facility] CenterComment on above:Performed By: #### CHIDI MCHUGH #### [facility] [address] [place] [address] Dr. Zuly HuiGFR-NON AF MVWIPWIJ96 mL/min/1.49q8Xipsiqmqsi low>=60The [facility] CenterComment on above:Performed By: #### CHIDI MCHUGH #### [facility] [address] [place] [address] Dr. Zuly MedinaComichaela-19 PCR (CVDENCOMPASS [facility]RA[facility])on 52-28-8833GMSJ-CoV-2 (COVID-19) RNA MARY+probe Ql (Unsp spec)Not detectedNormalNOT DETECTEDThe [facility] Comment on above:Result Comment: This test is not yet approved or cleared by the [place] FDA. When there are no FDA-approved or cleared tests available, and other criteria are met, FDA can make tests available under an emergency access mechanism called an Emergency Use Authorization (EUA). The EUA for this test is supported by the Machinist Mate of Health and Human Service's (HHS's) declaration that circumstances exist to justify the emergency use of in vitro diagnostics for the detection and/or diagnosis of the virus that causes COVID- 19. This EUA will remain in effect (meaning [...] of clinical signs and symptoms consistent with SARS-CoV-2.Performed By: #### CVDTBH #### [facility] [address] [place] [address] Dr. Zuly MedinaT4, T3U, FTI LABCORPon 79-31-6602Rymm Thyroxine Index2.7Normal 1.2-4.9The [facility] CenterComment on above:Performed By: #### KATIETBH #### [facility] [address] [place] [address] Dr. Zuly MedinaT3 Fkotmy25 %Rzzdgd82-51Qus [facility] CenterComment on above: Performed By: #### KATIETBH #### [facility] [address] [place] [address] Dr. Zuly Fay4 [Mass/Vol]8.5 ug/dLNormal4.5-12.0The [facility] CenterComment on above:Performed By: #### KATIETBH #### [facility] [address] [place] [address] Dr. Zuly Merrill D 25-[place] LABCORPon 20-19-8491Kpvnyrx D, 25-Amrqqyf102.0 ng/mL Critically high30.0-100.0The [facility] Hospitalment on above:Result Comment: Vitamin D deficiency has been defined by the [place] of Medicine and an Endocrine Society practice guideline as a level of serum 25-OH vitamin D less than 20 ng/mL (1,2). The Endocrine Society went on to further define vitamin D insufficiency as a level between 21 and 29 ng/mL (2). 1. IOM ([place] of Medicine). 2010. Dietary reference intakes for calcium and D. [place]: The National Academies Press. 2. Anel AZEVEDO, Chandrika [place], Ronaldo MCCALLUM, et al. Evaluation, treatment, and prevention of vitamin D deficiency: an Endocrine Society clinical practice guideline. JCEM. 2010; 96(7):1911-30.Performed By: #### VITADLC #### [facility] [facility] [address] [place] [address] Dr. Zuly Diallo AUTO DIFFon 28-26-1809UHUA #0.0 103/ulNormal0.0-0.1The [facility]heastern Medical CenterComment on above:Performed By: #### CHIDI MCHUGH #### [facility] [address] [place] [address] Dr. Zuly MedinaBasophils/100 WBC (Bld)0.4 %Normal0.2-2.0The [facility] Comment on above:Performed By: #### CHIDI MCHUGH #### [facility] [address] [place] [address] Dr. Zuly Daniel #0.3 103/ulNormal0.0-0.7The [facility] CenterComment on above: Performed By: #### CHIDI MCHUGH #### [facility] [address] [place] [address] Dr. Zuly Huiosinophils/100 WBC (Bld)4.1 %Normal0.9-7.0The [facility] Comment on above:Performed By: ###CHIDI COPE #### [facility] [address] [place] [address] Dr. Zuly Huirythrocyte distribution width (RBC) [Ratio]14.1 %Nhzahq49.0-15.0 The [facility] CenterComment on above:Performed By: #### CHIDI MCHUGH #### [facility] [address] [place] [address] Dr. Zuly MedinaHematocrit (Bld) [Volume fraction]36.0 %Nezhax71.0-48.0The [facility] CenterComment on above:Performed By: #### CHIDI MCHUGH #### [facility] [address] [place] [address] Dr. Zuly MedinaHemoglobin (Bld) [Mass/Vol]11.6 g/dLCritically low12.0-16.0The [facility] CenterComment on above:Performed By: #### [place], [place] #### [facility] [address] [place] [address] Dr. Zuly Connors #0.01 10e3/ulNormal0.00-0.03The [facility] on above:Performed By: #### JEISON, [place] #### [facility] [address] [place] [address] Dr. Zuly Connors %0.1 %Normal0.0-0.5The [facility] CenterComment on above: Performed By: #### JEISON, [place] #### [facility] [address] [place] [address] Dr. Zuly Frost #1.3 103/ulNormal1.2-3.8The [facility] CenterComment on above:Performed By: #### JEISON, [place] #### [facility] [address] [place] [address] Dr. Zuly Berrioshocytes/100 WBC (Bld)19.3 %Critically low20.5-60.0The [facility] CenterCommclaren [facility] on above:Performed By: #### JEISON, [place] #### [facility] [address] [place] [address] Dr. Zuly WashingtonUAL DIFF REQNONormalThe [facility] CenterComment on above: Performed By: #### JEISON, [place] #### [facility] [address] [place] [address] Dr. Zuly Ramírez (RBC) [Entitic mass]31.4 syCaqzpa92.7-34.0The [facility] CenterComment on above:Performed By: #### JEISON, [place] #### [facility] [address] [place] [address] Dr. Zuly Ramírez (RBC) [Mass/Vol]32.2 g/cHIryozs81.9-35.2The [facility] CenterComment on above:Performed By: #### JEISON, [place] #### [facility] [address] [place] [address] Dr. Zuly Ramírez (RBC) [Entitic vol]97.6 xBGkjekw82.0-99.0The [facility] CenterComment on above:Performed By: #### CHIDI MCHUGH #### [facility] [address] [place] [address] Dr. Zuly Wolf #0.8 103/ulNormal0.3-0.8The [facility] CenterComment on above:Performed By: #### CHIDI MCHUGH #### [facility] [address] [place] [address] Dr. Zuly Albarranocytes/100 WBC (Bld)11.8 %Normal1.7-12.0The [facility] Comment on above:Performed By: #### CHIDI MCHUGH #### [facility] [address] [place] [address] Dr. Zuly Beltran #4.4 103/ulNormal1.4-6.5The [facility] CenterComment on above:Performed By: #### CHIDI MCHUGH #### [facility] [address] [place] [address] Dr. Zuly Shoemakerutrophils/100 WBC (Bld)64.3 %Qcpylp32.0-75.0The [facility] CenterComment on above:Performed By: #### CHIDI MCHUGH #### [facility] [address] [place] [address] Dr. Zuly Cruz mean volume (Bld) [Entitic vol]10.1 fLNormal9.5-13.5The [facility] CenterComment on above:Performed By: #### CHIDI MCHUGH #### [facility] [address] [place] [address] Dr. Zuly MedinaPLT311 103/vlZfjlfj502-067Uhe [facility] CenterComment on above: Performed By: #### CHIDI MCHUGH #### [facility] [address] [place] [address] Dr. Zuly MedinaRBC3.69 106/ulCritically low4.20-5.40The [facility] CenterComment on above:Performed By: #### CHIDI MCHUGH #### [facility] [address] [place] [address] Dr. Zuly MedinaWBC6.9 103/ulNormal4.0-11.0[facility] CenterComment on above: Performed By: #### CHIDI MCHUGH #### [facility] [address] [place] [address] Dr. Zuly MedinaGLYCOHEMOGLOBIN A1Con 20-21-0747LWV RECOMMENDATIONSEE BELOWSt. Anthony'S HospitalComment on above:Result Comment: ADA RECOMMENDED LIMIT 4.0 - 6.0 ADA THERAPEUTIC TARGET < 7.0 ACTION SUGGESTED > 7.0Performed By: #### A1C #### [facility] [address] [place] [address] Dr. Zuly MedinaGlucose [Mass/Vol]103 mg/dLNoNationwide Children's HospitalComment on above:Performed By: #### A1C #### [facility] [address] [place] [address] Dr. Zuly MedinaHbA1c (Bld) [Mass fraction]5.2 %Normal4.5-6.2The [facility] CenterComment on above:Performed By: #### A1C #### [facility] [address] [place] [address] Dr. Zuly Anand 54-70-1850Wklt [Mass/Vol]60.0 ug/vZCtjtnu83.0-170.0[facility] Medical CenterComment on above:Performed By: #### CVDTBH #### [facility] [address] [place] [address] Dr. Zuly MedinaLIPID PROFILEon 29-25-3642LSBQ-HDL RATIO NORMSEE [facility] Medical CenterComment on above:Result Comment: 3.3 - 4.4 LOW RISK 4.4 - 7.1 AVERAGE RISK 7.1 - 11.0 MODERATE RISK >11.0 HIGH RISKPerformed By: #### CHIDI MCHUGH #### [facility] [address] [place] [address] Dr. Zuly MedinaCholesterol [Mass/Vol]145 mg/dLNormal<=200The [facility] Comment on above:Performed By: #### [place], [place] #### [facility] [address] [address] [address] Zuly MedinaCholesterol in HDL [Mass/Vol]65 mg/dLCritically zzny29-78LyeCincinnati Children'S Hospital Medical CenterComment on above:Performed By: #### [place], [place] #### [facility] [address] [place] [address] Dr. Zuly MedinaCholesterol in LDL [Mass/Vol]72.2 mg/dLNoNationwide Children's HospitalComment on above:Performed By: #### CREFrank, [place] #### [facility] [address] [place] [address] Dr. Zuly Schultzesterscott.total/Cholesterol in HDL [Mass ratio]2.2 {ratio} NormalThe [facility] CenterComment on above:Performed By: #### CREFrank, [place] #### [facility] [address] [place] [address] Dr. Zuly Villanueva NORMAL> or = 60 mg/dl - LOW CARDIOVASCULAR RISK <40 mg/dl - HIGH CARDIOVASCULAR RISKElyria Memorial HospitalComment on above:Performed By: #### CREFrank, [place] #### [facility] [address] [place] [address] Dr. Zuly Tran CALC NORMALSEE [facility] County Medical CenterComment on above:Result Comment: <100 mg/dl OPTIMAL 100 - 129 mg/dl NEAR OR ABOVE OPTIMAL 130 - 159 mg/dl BORDERLINE HIGH 160 - 189 mg/dl HIGH >190 mg/dl VERY HIGH Performed By: #### CREFrank, [place] #### [facility] [address] [place] [address] Dr. Zuly MedinaTriglyceride [Mass/Vol]39 mg/dLNormal<=150[facility] Comment on above:Performed By: #### CREFrank, [place] #### [facility] [address] [place] [address] Dr. Zuly MedinaVLDL CALC7.8 mg/dLNoNationwide Children's HospitalComment on above: Performed By: #### CREFrank, [place] #### [facility] [address] [address] [address] Zuly MedinaPROF 14(COMP METB)on 16-34-3824Bxrqjka [Mass/Vol]3.8 g/dLNormal 3.4-5.0The [facility] CenterComment on above:Performed By: #### JEISON, [place] #### [facility] [address] [place] [address] Dr. Zuly MedinaAlbumin/Globulin [Mass ratio]1.4 {ratio}NormalThe [facility] CenterComment on above:Performed By: #### JEISON, [place] #### [facility] [address] [place] [address] Dr. Zuly Almendarez [Catalytic activity/Vol]41 U/LCritically nlv37-734Svd [facility] CenterComment on above:Performed By: #### EJISON, CA #### [facility] [address] [place] [address] Dr. Zuly JacksonT [Catalytic activity/Vol]20 U/TJgakoc63-36Oet [facility] CenterComment on above:Performed By: #### JEISON, [place] #### [facility] [address] [place] [address] Dr. Zuly Nicole gap [Moles/Vol]8.2 mmol/LNormalThe [facility] CenterComment on above:Performed By: #### JEISON, [place] #### [facility] [address] [place] [address] Dr. Zuly MedinaAST [Catalytic activity/Vol]25 U/COmfnfy31-21Nrr [facility] CenterComment on above:Performed By: #### CREFrank, CA #### [facility] [address] [place] [address] Dr. Zuly MedinaBilirubin [Mass/Vol]0.4 mg/dLNormal0.2-1.0The [facility] Comment on above:Performed By: #### CREFrank, CA #### [facility] [address] [place] [address] Dr. Zuly MedinaCalcium [Mass/Vol]10.1 mg/dLNormal8.5-10.1The [facility] Comment on above:Performed By: #### CREFrank, [place] #### [facility] [address] [address] [address] Zuly MedinaChloride [Moles/Vol]104 mmol/FMblcjw21-666EpeCincinnati Children'S Hospital Medical Center Comment on above:Performed By: #### CREFrank, CA #### [facility] [address] [place] [address] Dr. Zuly MedinaCO2 [Moles/Vol]31.6 mmol/NApvloo64.0-32.0The [facility] Comment on above:Performed By: #### CREFrank, [place] #### [facility] [address] [place] [address] Dr. Zuly MedinaCreatinine [Mass/Vol]1.44 mg/dLCritically high0.55-1.02[facility] Medical CenterComment on above:Performed By: #### JEISON, [place] #### [facility] [address] [place] [address] Dr. Zuly HuiGFR-AF YCCLQMFW22 mL/min/1.85u3Dfqvwpeggt low>=60[facility] Medical CenterComment on above:Performed By: #### JEISON, [place] #### [facility] [address] [place] [address] Dr. Zuly HuiGFR-NON AF SQRFBAJO62 mL/min/1.10k8Lzhythxogw low>=60[facility] Medical CenterComment on above:Performed By: #### CREFrank, [place] #### [facility] [address] [place] [address] Dr. Zuly MedinaGlobulin (S) [Mass/Vol]2.8 g/dLNormalThe [facility] CenterComment on above:Performed By: #### CREFrank, [place] #### [facility] [address] [place] [address] Dr. Zuly MedinaGlucose [Mass/Vol]100 mg/zTJfpjlf07-352CldCincinnati Children'S Hospital Medical Center Comment on above:Performed By: #### CREFrank, [place] #### [facility] [address] [place] [address] Dr. Zuly MedinaPotassium [Moles/Vol]3.8 mmol/LNormal3.5-5.1The [facility] Comment on above:Performed By: #### JEISON, CHIDI #### [facility] [address] [place] [address] Dr. Zuly MedinaProtein [Mass/Vol]6.6 g/dLNormal6.4-8.2[facility] Comment on above:Performed By: #### JEISON, [place] #### [facility] [address] [place] [address] Dr. Zuly MedinaSodium [Moles/Vol]140 mmol/XMtkcmo737-581ZmiCincinnati Children'S Hospital Medical Center Comment on above:Performed By: #### JEISON, [place] #### [facility] [address] [place] [address] Dr. Zluy MedinaUrea nitrogen [Mass/Vol]28.0 mg/dLCritically high7.0-18.0[facility] Medical CenterComment on above:Performed By: #### JEISON, CHIDI #### [facility] [address] [place] [address] Dr. Zuly Gallegos nitrogen/Creatinine [Mass ratio]19.4 mg/mgNormalThe [facility] CenterComment on above:Performed By: #### JEISON CA #### [facility] [address] [place] [address] Dr. Zuly Ledesma 30-81-1803SZY5.676 uIU/mLNormal0.358-3.740[facility] Medical CenterComment on above:Performed By: #### JEISON, [place] #### [facility] [address] [place] [address] Dr. Zuly Pappasvid-19 PCR ([facility]VDENCOM[facility])on 79-82-8681VNKL-CoV-2 (COVID-19) RNA MARY+probe Ql (Unsp spec)Not detectedNormalNOT DETECTEDThe [facility] Comment on above:Result Comment: When diagnostic testing is negative, the [...] for this test is supported by the Machinist Mate of Health and Human Service's declaration that circumstances exist to justify the emergency use of in vitro diagnostics for the detection and/or diagnosis of the virus that causes COVID-19. This EUA will remain in effect for the duration of the COVID-19 declaration justifying emergency of IVDs, unless it is terminated or revoked by the FDA (after which the test may no longer be used).Performed By: #### CVDTB #### [facility] [address] [place] [address] Dr. Zuly Lopez 40-79-2511Bfpnweahwb [Mass/Vol]1.33 mg/dLCritically high0.55-1.02[facility] Medical Centerment on above:Performed By: #### CHIDI MCHUGH #### [facility] [address] [place] [address] Dr. Zuly HuiGFR-AF OFNKLKOA77 mL/min/1.83w1Tldcpqwkzd low>=60[facility] Medical CenterComment on above:Performed By: #### CHIDI MCHUGH #### [facility] [address] [place] [address] Dr. Zuly HuiGFR-NON AF ZTXZSFKK92 mL/min/1.38i5Wydatzfaoi low>=60The [facility] Hospitalment on above:Performed By: #### CHIDI MCHUGH #### [facility] [address] [place] [address] Dr. Zuly Sandoval BRAIN WO W CONon 00-09-8957XVF BRAIN WO W CONEXAMINATION: MRI BRAIN WO W CON HISTORY: Migraine without aura, [...] for patient's symptoms. Electronically authenticated by: HOSEA BOWENS Date: 2021-09-18 16:23NoNationwide Children's HospitalCovid-19 PCR (CVDTBH)on 58-03-2929SPXC-CoV-2 (COVID-19) RNA MARY+probe Ql (Unsp spec)Not detectedNormalNOT DETECTEDThe [facility] Comment on above:Result Comment: This test is not yet approved or cleared by the [place] FDA. When there are no FDA-approved or cleared tests available, and other criteria are met, FDA can make tests available under an emergency access mechanism called an Emergency Use Authorization (EUA). The EUA for this test is supported by the Machinist Mate of Health and Human Service's (HHS's) declaration that circumstances exist to justify the emergency use of in vitro diagnostics for the detection and/or diagnosis of the virus that causes COVID- 19. This EUA will remain in effect (meaning [...] of clinical signs and symptoms consistent with SARS-CoV-2.Performed By: #### CVDTBH #### [facility] [address] [place] [address] Dr. Zuly CrainMATIC COVID-19 ANTIGENon 36-36-1191ZIA StatementSEE BELOW NormalThe [facility] CenterComment on above:Result Comment: This test has not been FDA [...] declaration is terminated or authorization is revoked sooner.Performed By: #### CVDTBH #### [facility] [address] [place] [address] Dr. Zuly Smiley-CoV-2 (COVID-19) RNA MARY+probe Ql (Unsp spec)NegativeNormal NEGATIVEThe [facility] CenterComment on above:Performed By: #### CVDTBH #### [facility] [address] [place] [address] Dr. Zuly Ray - Diptheria/Tetanus Abon 68-68-8889NOYVOJDDIY ANTITOXOID0.25 IU/mLNormalNorthern Oklahoma Medical SpecialistComment on above:Order Comment: [facility] performed at: [facility], [employer], [address] , [place], [place], , Gold And Silver Assayer: Sahil Dyson M.D.,PhD [facility] Collection Date/Time: [facility] Results Received Date/Time: [facility] Reported Date/Time: [id number] Comment: Reference Range: 0.10 IU/mL or greater Interpretive Criteria: [...] analytical performance characteristics have been determined by [employer] [place], [place]. It has not been cleared or approved by the U.S. Food and Drug Administration. This assay has been validated pursuant to the CLIA regulations and is used for clinical purposes.Performed By: #### 74324G, 11210I, 11288, 46557H, 94378U, 67624S #### [facility] Default [address] [place], [place] [address]SJDSLLG ANTITOXOID4.67 IU/mLNormalNortElyria Memorial HospitalCommclaren [facility] on above:Order Comment: [facility] performed at: [facility] [employer], [facility], [address], [place], [place], , Gold And Silver Assayer: Sahil Dyson M.D.,PhD [facility] Collection Date/Time: [facility] Results Received Date/Time: [facility] Reported Date/Time: [id number] Comment: Reference range (Healthy Immunized): 0.10 IU/mL or greater Antibody levels of >= 0.10 IU/mL are considered protective. However, tetanus can still occur in some individuals with such antibody levels. These results should not be used to determine the necessity to administer antitoxin when clinically indicated. This test was developed and its analytical performance characteristics have been determined by [employer] [place], [place]. It has not been cleared or approved by the U.S. Food and Drug Administration. This assay has been validated pursuant to the CLIA regulations and is used for clinical purposes.Performed By: #### 83531L, 10272T, 98578, 92467K, 27148L, 48978Y #### [facility] [address] [place], [place] [address]R - IGA,SERUMon 30-99-6901EUWTVOHAOPWFOI A125 mg/lVCbrnng28-500 [facility] OhioCommclaren [facility] on above:Order Comment: [facility] performed at: [facility], [employer], [address] [facility], [address] [place] [address], [address] [place] [address], Gold And Silver Assayer: Thony Haley MD [facility] Collection Date/Time: [facility] Results Received Date/Time: [facility] Reported Date/Time: [id number] By: #### 90074L, 51958D, 44431, 83048X, 46222S, 10136G #### [facility] [address] [place] [address]F - IGE,SERUMon 04-63-3188OJADHFHCZPQEQR E44 kU/LNormalNortherThe Surgical Hospital at SouthwoodsComment on above:Order Comment: [facility] performed at: [employer] [facility], [address] [place] [address], [address] [place] [address], [address] [place] [address], Gold And Silver Assayer: Thony Haley MD [facility] Collection Date/Time: [facility] Results Received Date/Time: [facility] Reported Date/Time: [id number] By: #### 93940M, 79748C, 31721, 77988Y, 94045F, 07458M #### [facility] [address] [place] [address]J - IGG,SERUMon 60-08-7609LVKKZOIOUAARSE G895 mg/vLZffyio262-5941 [facility] OhioComment on above:Order Comment: [facility] performed at: [employer], [employer] [facility], [address] [facility], [address] [place] [address], [address] [place] [address], Gold And Silver Assayer: Thony Haley MD [facility] Collection Date/Time: [facility] Results Received Date/Time: [facility] Reported Date/Time: [id number] By: #### 74550K, 22760O, 74758, 76810Z, 88483I, 93525G #### [facility] [address] [place] [address]M - IGM,SERUMon 96-99-5691OOISGLUIRJRZIE M158 mg/eHHpgmug66-196 [facility] OhioComment on above:Order Comment: [facility] performed at: Q, [facility], [address], [address] [facility], [place], [address], Gold And Silver Assayer: Thony Haley MD [facility] Collection Date/Time: [facility] Results Received Date/Time: [facility] Reported Date/Time: [id number] By: #### 15703Y, 35745B, 30484, 54291N, 22433Q, 16847Z #### [facility] [address] [place], [place] [address]Y - Strep pneumo Ab 23 serotypeson 22-99-1086EJFXVMWD 1 (1)9.5 [facility] Medical CenterComment on above:Order Comment: [facility] performed at: [facility], [employer],, [address] [place] [address], , Gold And Silver Assayer: Osiris Galdamez MD,PhD,BHANU [facility] Collection Date/Time: [facility] Results Received Date/Time: [facility] Reported Date/Time: [id number] By: #### 06773A, 26897N, 00950, 59726U, 75225V, 63468V #### [facility] [address] [place], [place] [address]LPMXXXGY 12 (12F)1.0NormalAkron Children'S Hospital SpecialistComment on above:Order Comment: [facility] performed at: [facility], [employer],, [address] [place], [place], , Gold And Silver Assayer: Osiris Galdamez MD,PhD,BHANU [facility] Collection Date/Time: [facility] Results Received Date/Time: [facility] Reported Date/Time: [id number] By: #### 94597V, 35361T, 55112, 99877R, 42264Q, 47491W #### [facility] Default [address] [place], [place] [address]OIYSMCBS 14 (14)3.[address] HospitalComment on above:Order Comment: [facility] performed at: [facility], [facility],, [address] [place] [address], , Gold And Silver Assayer: Osiris Galdamez MD,PhD,BHANU [facility] Collection Date/Time: [facility] Results Received Date/Time: [facility] Reported Date/Time: [id number] By: #### 66096Y, 22929C, 95628, 61348O, 17391M, 76403V #### [facility] [address] [place], [place] [address]ERAMEFDI 17 (17F)1.2NSCCI Hospital LimaComment on above:Order Comment: [facility] performed at: [facility], [facility],, [address] [place] [address], , Gold And Silver Assayer: Osiris Galdamez MD,PhD,BHANU [facility] Collection Date/Time: [facility] Results Received Date/Time: [facility] Reported Date/Time: [id number] By: #### 55341W, 62281X, 79180, 34513F, 34422O, 03165C #### [facility] [address] [place], [place] [address]WLVGMORF 19 (19F)2.8NormalAkron Children'S Hospital SpecialistComment on above:Order Comment: [facility] performed at: [facility], [facility],, [address] [place] [address], , Gold And Silver Assayer: Osiris Galdamez MD,PhD,BHANU [facility] Collection Date/Time: [facility] Results Received Date/Time: [facility] Reported Date/Time: [id number] By: #### 98045L, 83241W, 53465, 71543H, 94866H, 77153U #### [facility] Default [address] [place], [place] [address]FSTONZST 2 (2)7.2NSCCI Hospital LimaComment on above:Order Comment: [facility] Testing performed at: EZ, [facility],, [address] [place], [place] [address], [place], , Gold And Silver Assayer: Osiris Galdamez MD,PhD,BHANU [facility] Collection Date/Time: [facility] Results Received Date/Time: [facility] Reported Date/Time: [id number] By: #### 28370V, 68293Q, 51243, 99432A, 37081T, 16102D #### [facility] Default [address] [place], [place] [address]QLIQDKBQ 20 (20)3.[address] HospitalComment on above:Order Comment: [facility] Testing performed at: EZ, [facility],, [address] [place] [address], , Gold And Silver Assayer: Osiris Galdamez MD,PhD,BHANU [facility] Collection Date/Time: [facility] Results Received Date/Time: [facility] Reported Date/Time: [id number] By: #### 18952A, 88915M, 33380, 74863F, 86648V, 51493J #### [facility] Default [address] [place], [place] [address]VFOIAGJJ 22 (22F)5.9[address] HospitalComment on above:Order Comment: [facility] Testing performed at: EZ, [facility],, [address] [place], [place] [address], [place], , Gold And Silver Assayer: Osiris Galdamez MD,PhD,BHANU [facility] Collection Date/Time: [facility] Results Received Date/Time: [facility] Reported Date/Time: [id number] By: #### 90840C, 50009M, 53820, 10770Z, 97936X, 05720T #### [facility] Default [address] [place], [place] [address]NSPEYPBP 23 (23F)5.2NSCCI Hospital LimaComment on above:Order Comment: [facility] Testing performed at: EZ, [facility],, [address] [place] [address], , Gold And Silver Assayer: Osiris Galdamez MD,PhD,BHANU [facility] Collection Date/Time: [facility] Results Received Date/Time: [facility] Reported Date/Time: [id number] By: #### 11802G, 60063E, 09539, 22342M, 33438O, 45018B #### [facility] Default [address] [place], [place] [address]ZGDNHYQD 26 (6B)18.8NormOhio State East HospitalComment on above:Order Comment: [facility] Testing performed at: EZ, [facility],, [address] [place] [address], , Gold And Silver Assayer: Osiris Galdamez MD,PhD,BHANU [facility] Collection Date/Time: [facility] Results Received Date/Time: [facility] Reported Date/Time: [id number] By: #### 40751J, 81817Q, 12662, 43479I, 72038W, 42255W #### [facility] Default [address] [place], [place] [address]KBSDHAGR 3 (3)1.[address] HospitalComment on above:Order Comment: [facility] Testing performed at: EZ, [facility],, [address] [place] [address], , Gold And Silver Assayer: Osiris Galdamez MD,PhD,BHANU [facility] Collection Date/Time: [facility] Results Received Date/Time: [facility] Reported Date/Time: [id number] By: #### 87268R, 09165G, 77135, 88298J, 18115A, 98780V #### [facility] Default [address] [place], [place] [address]UECYXSPJ 34 (10A)0.9NormMer[facility] Health [facility] SpecialistComment on above:Order Comment: [facility] Testing performed at: , [facility],, [address] [place] [address], , Gold And Silver Assayer: Osiris Galdamez MD,PhD,BHANU [facility] Collection Date/Time: [facility] Results Received Date/Time: [facility] Reported Date/Time: [id number] By: #### 04457X, 26581F, 31579, 27500C, 49618U, 56278Z #### [facility] Default [address] [place], [place] [address]EELBFMVT 4 (4)<0.3NormMercy Health Springfield Regional [facility] SpecialistComment on above:Order Comment: [facility] Testing performed at: Adimab, [facility],, [address] [place] [address], , Gold And Silver Assayer: Osiris Galdamez MD,PhD,BHANU [facility] Collection Date/Time: [facility] Results Received Date/Time: [facility] Reported Date/Time: [id number] By: #### 00180N, 16400V, 10661, 16721X, 17527T, 33081V #### [facility] Default [address] [place], [place] [address]YAZISFFR 43 (11A)1.1NSCCI Hospital LimaComment on above:Order Comment: [facility] Testing performed at: EZ, [facility],, [facility] [place], , Gold And Silver Assayer: Osiris Galdamez MD,PhD,BHANU [facility] Collection Date/Time: [facility] Results Received Date/Time: [facility] Reported Date/Time: [id number] By: #### 41558O, 95686C, 59528, 90717F, 60834G, 85554Z #### [facility] Default [address] [place], [place] [address]JCMAGVQY 5 (5)2.[address] HospitalCommclaren greater [facility] on above:Order Comment: [facility] Testing performed at: EZ, [facility],, [facility] [place], , Gold And Silver Assayer: Osiris Galdamez MD,PhD,BHANU [facility] Collection Date/Time: [facility] Results Received Date/Time: [facility] Reported Date/Time: [id number] By: #### 75261P, 29956K, 80635, 02214H, 77259G, 97049W #### [facility] Default [address] [place], [place] [address]QTYYHGCF 51 (7F)8.[address] HospitalComment on above:Order Comment: [facility] Testing performed at: EZ, [facility],, [address] [place], [place] [address], [place], , Gold And Silver Assayer: Osiris Galdamez MD,PhD,BHANU [facility] Collection Date/Time: [facility] Results Received Date/Time: [facility] Reported Date/Time: [id number] By: #### 77653N, 72545C, 36420, 85776J, 09180R, 23239D #### [facility] Default [address] [place], [place] [address]VSLTNSQA 54 (15B)2.3NormalNortBlanchard Valley Health System [facility]uff[facility] Medical SpecialistComment on above:Order Comment: [facility] Testing performed at: EZ, [facility],, [address] [facility], [place], , Gold And Silver Assayer: Osiris Galdamez MD,PhD,BHANU [facility] Collection Date/Time: [facility] Results Received Date/Time: [facility] Reported Date/Time: [id number] By: #### 02079X, 20333M, 02524, 51556A, 31179H, 33384A #### [facility] Default [address] [place], [place] [address]CIMNIECN 56 (18C)18.7NormalHemet Global Medical Center Can Line Examiner Comment on above:Order Comment: [facility] Testing performed at: EZ, [facility],, [address], [place] [employer], [place], , Gold And Silver Assayer: Osiris Galdamez MD,PhD,BHANU [facility] Collection Date/Time: [facility] Results Received Date/Time: [facility] Reported Date/Time: [id number] By: #### 58117P, 39614E, 84361, 94278O, 57712Y, 36613V #### [facility] Default [address] [place], [place] [address]UOJTCQGG 57 (19A)15.6NormalHemet Global Medical Center Can Line Examiner Comment on above:Order Comment: [facility] Testing performed at: EZ, [facility],, [address], [place] [employer], [place], , Gold And Silver Assayer: Osiris Galdamez MD,PhD,BHANU [facility] Collection Date/Time: [facility] Results Received Date/Time: [id number] [facility] Reported Date/Time: [id number] By: #### 05858G, 66562L, 86535, 19033I, 79256B, 15824L #### [facility] Default [address] [place], [place] [address]KFYLDRXS 68 (9V)2.1NProMedica Flower Hospital SpecialistComment on above:Order Comment: [facility] Testing performed at: [employer],, [address] [place], [place], , Gold And Silver Assayer: Osiris Galdamez MD,PhD,BHANU [facility] Collection Date/Time: [facility] Results Received Date/Time: [facility] Reported Date/Time: [id number] By: #### 93825O, 40275F, 37017, 78296B, 69376Q, 63004Q #### [facility] Default [address] [place], [place] [address]RPMTDLUC 70 (33F)28.9NormalAkron Children'S Hospital Specialist Comment on above:Order Comment: [facility] Testing performed at: [facility],, [address] [place], [place], , Gold And Silver Assayer: Osiris Galdamez MD,PhD,BHANU [facility] Collection Date/Time: [facility] Results Received Date/Time: [facility] Reported Date/Time: [id number] Comment: Serologic correlates of protection against pneumococcal disease have [...] serotype-specific titers may have less robust responses. [facility] uses a multi-analyte immunodetection (MAID) method. The method employs the famPlus flow cytometric system which measures multiple analytes [...] analytical performance characteristics have been determined by [employer]. It has not been cleared or approved by FDA. This assay has been validated pursuant to the CLIA regulations and used for clinical purposes. For additional information, please refer to http://education.[employer]/faq/XAU941 (This link is being provided for informational/ educational purposes only.)Performed By: #### 94655C, 03169T, 66373, 92846Z, 68444L, 56285A #### [facility] Default [address] [place], [place] [address]QRJKKBUW 8 (8)14.6[address] HospitalCommclaren greater lansing hospital on above:Order Comment: [facility] performed at: , [facility],, [address] [place] [address], [address], Gold And Silver Assayer: Osiris Galdamez MD,PhD,BHANU [facility] Collection Date/Time: [facility] Results Received Date/Time: [facility] Reported Date/Time: [id number] By: #### 35372X, 27194C, 26558, 78557E, 49057I, 19557U #### [facility] Default [address] [place], [place] [address]YNNXTVXK 9 (9N)1.0NoalNorthern Oklahoma Medical SpecialistComment on above:Order Comment: [facility] Testing performed at: SUSANNE, [facility],, [address] [place], [address], Gold And Silver Assayer: Osiris Galdamez MD,PhD,BHANU [facility] Collection Date/Time: [facility] Results Received Date/Time: [facility] Reported Date/Time: [id number] By: #### 72671Z, 91218D, 46466, 75554V, 54404L, 06280J #### [facility] Default [address] [place], [place] [address]LM SINUSES WO CONon 19-12-5532LS SINUSES WO CONEXAMINATION: CT SINUSES WO CON HISTORY: Acute sinusitis [...] or chronic sinusitis. Electronically authenticated by: HOSEA BOWENS Date: 2021-08-05 08:[address] [place], [place] [address]MG MAMM DX 3D LT CADon 35-00-8630DY MAMM DX 3D LT CADPatient: IFTIKHAR AKIRA Ya Exam Date: 08/05/2021 : 1950 Gender:F Ordering : DR MIKO NATARAJAN . Admission #: [id number] Family : Order #: [id number] CLICK HERE TO VIEW EXAM RADIOLOGY REPORT [...] lung cancer at age 59. LOCATION: [facility] BREAST COMPOSITION: Scattered areas fibroglandular [...] LUMP SHOULD BE BIOPSIED. Dictated by: Hosea Bowens M.D. on 08/05/2021 at 09:23 Approved by: Hosea Bowens M.D. on 08/05/2021 at 09:25[facility] HospitalUS BREAST LEFT LIMITEDon [id number] BREAST LEFT LIMITEDPatient: AKIRA BUITRAGO Exam Date: 08/05/2021 : 1950 Gender:F Ordering : DR MIKO NATARAJAN . Admission #: [id number] Family : Order #: [id number] CLICK HERE TO VIEW EXAM RADIOLOGY REPORT [...] lung cancer at age 59. LOCATION: [facility] BREAST COMPOSITION: Scattered areas fibroglandular [...] LUMP SHOULD BE BIOPSIED. Dictated by: Hosea Bowens M.D. on 08/05/2021 at 09:23 Approved by: Hosea Bowens M.D. on 08/05/2021 at 09:25[facility] Vital Signs Date TimeVital SignValuePerforming XsbyhlxlcGqvitslw82-33-6032 08:52-0400Body cmRenny COREYM Work Phone: [facility] HospitalGrliohtmaq59-17-1348 08:52-0400Body mass index (BMI) [Ratio]22.67 kg/g8JygkhlnaRenny Lacy DPM Work Phone: [facility] HospitalUidmyjfxin57-79-3051 08:52-0400Body .06 kgRenny COREYM Work Phone: [facility] HospitalOiohvqgtqe17-70-4785 08:52-0400Respiratory rate18 /minNicholas Brown DPM Work Phone: [facility] HospitalRgwpzhyoyo00-46-9024 09:19-0400Body mass index (BMI) [Ratio]22.67 kg/m2Keila Faith MD Work Phone: noNortheast [facility] Health NetworkPidlckjpwa00-29-3995 09:19-0400Body dgpuje99.06 kgToshannan Faith MD Work Phone: noNortheast [facility] Health NetworkRbyiebevge97-05-5388 08:37-0400Body lrnugh755 cm Renny Brown DPM Work Phone: [facility] HospitalFeqeuckvqr65-59-6586 08:37-0400Body mass index (BMI) [Ratio]22.85 kg/z5Nuohgvdo Brown DPM Work Phone: [facility] HospitalVncqqnedyd66-52-8263 08:37-0400Body .51 kgNicholas Brown DPM Work Phone: [facility] HospitalKzvhojdogp98-77-5771 08:37-0400Respiratory rate18 /minNicholas Brown DPM Work Phone: [facility] HospitalIrkdqrkjmd82-11-1146 08:34-0400Body vqywwj898 cm Renny Brown DPM Work Phone: [facility] HospitalZnxflqeytz25-50-8386 08:34-0400Body mass index (BMI) [Ratio]22.85 kg/b6Tbowsihg Brown DPM Work Phone: [facility] HospitalHiuityxfww56-48-4411 08:34-0400Body kieezd42.51 kgNicholas Brown DPM Work Phone: [facility] HospitalOeptcrngnn73-41-7888 08:34-0400Respiratory rate16 /minNicholas Brown DPM Work Phone: [facility] HospitalCgtdmcahjh73-43-6943 10:45-0400Body cm Renny Brown DPM Work Phone: [facility] HospitalCqkdkfwoek65-39-1039 10:45-0400Body mass index (BMI) [Ratio]22.85 kg/a7Ffxovlgq Brown DPM Work Phone: [facility] HospitalHmmpostyqv03-36-2632 10:45-0400Body bdodnq69.51 kgNicholas Darion DPM Work Phone: [facility] HospitalNjkqlvwrkq42-76-8823 10:45-0400Respiratory rate18 /minNicholjohnnie Brown DPM Work Phone: [facility] HospitalFsesstqurs92-97-8638 13:13-0400Body lodtkg925 cm Renny Brown DPM Work Phone: [place] [address]Segolesirc42-45-0647 13:13-0400Body mass index (BMI) [Ratio]22.85 kg/k3Mhmqigdk Brown DPM Work Phone: [facility] HospitalSzfhzjzkvv35-29-8430 13:13-0400Body kyytgf66.51 kgNicholjohnnie Lacy DPM Work Phone: [facility] HospitalNbqlxijche43-42-7264 13:13-0400Respiratory rate16 /minNicholas Brown DPM Work Phone: [facility] HospitalOvggwmupke93-12-9371 09:38-0400Body pcobau568 cm Renny Brown DPM Work Phone: [facility] HospitalIhctjrxwix06-56-6136 09:38-0400Body mass index (BMI) [Ratio]22.85 kg/v6Asuahwjk Brown DPM Work Phone: [facility] HospitalJnqsdimogz46-14-0341 09:38-0400Body fwmizk44.51 kgNicholjohnnie Lacy DPM Work Phone: [facility] HospitalDzzshuxajm64-10-0646 09:38-0400Respiratory rate16 /minNicholas Brown DPM Work Phone: [facility] HospitalBhdjxhsoyc42-79-3665 11:45-0400Body cm Renny Brown DPM Work Phone: [facility] HospitalBtgdbfedpa27-46-0729 11:45-0400Body mass index (BMI) [Ratio]22.85 kg/p5Nmrcwhdt Brown DPM Work Phone: 1(419)626-[address] [place], [place] [address]Euexoujhts30-34-9920 11:45-0400Body tbylha84.51 kgKingcristin Lacy DPM Work Phone: 1(157)1-[address] [place], [place] [address]Jjxkmareql90-02-7350 11:45-0400Respiratory rate18 /minKianajohnnie Lacy DPM Work Phone: 1(529)999-[address] [place], [place] [address]Dywkbcodtj92-71-4955 08:48-0400Body ekylsp549 cm Renny Darion DPM Work Phone: 1(299)[address] [place], [place] [address]Ykaeikmgsf14-88-5560 08:48-0400Body mass index (BMI) [Ratio]22.85 kg/p6Msriccmx Brown DPM Work Phone: 1(476)[address] [place], [place] [address]Noavsgtsct03-25-2565 08:48-0400Body nbcoku42.51 kgKingcristin Lacy DPM Work Phone: 1(465)2-[address] [place], [place] [address]Odbcngvmjv80-55-7709 08:48-0400Respiratory rate18 /minKianajohnnie Lacy DPM Work Phone: 1(461)4-[address] [place], [place] [address]Obvbmtdbcy45-93-2700 08:33-0500Body nmmmxe113 cm Renny Lacy DPM Work Phone: 1(522)280-[address] [place], [place] [address]Akcgwgvdab10-57-3557 08:33-0500Body mass index (BMI) [Ratio]22.85 kg/a4Pwnelymz Brown DPM Work Phone: 1(008)4-[address] [place], [place] [address]Njhymmsdze00-19-4930 08:33-0500Body upchju35.51 kgKingcristin Lacy DPM Work Phone: 1(449)1-[address] [place], [place] [address]Wxkzabbfap15-82-9772 08:33-0500Diastolic blood wznunwvl46 mm[Hg]Renny Lacy DPM Work Phone: 1(271)[facility] [place], [place] [address]Tdtnhrekrg01-86-8458 08:33-0500Heart rate81 /min Renny Lacy DPM Work Phone: 1(628)396-[address] [place], [place] [address]Klxxdweslr55-05-0289 08:33-0500Systolic blood zgrkcowj886 mm[Hg]Renny Lacy DPM Work Phone: 1(652)2-[address] [place], [place] [address]Pxwtjdgoja39-54-3436 08:34-0400Body sxdpoy376 cm Renny Lacy DPM Work Phone: 1(630)651-[address] [place], [place] [address]Ovmubcztxt21-83-0223 08:34-0400Body mass index (BMI) [Ratio]22.85 kg/e6Zvmdsfimcristin Lacy DPM Work Phone: 1([phone] [place], [place] [address]Aesdcakmpe80-46-2266 08:34-0400Body fbsamv97.51 kgKingcristin Lacy DPM Work Phone: 1(959)[facility] [place], [place] [address]Ntnmndtrdl95-88-7002 08:34-0400Diastolic blood cajfjkny03 mm[Hg]Renny Lacy DPM Work Phone: 1(635)[address] [place] [address]-24-2024 08:34-0400Heart rate81 /min Renny Lacy DPM Work Phone: 1(013)[facility] [place] [address]-24-2024 08:34-0400Systolic blood jsyxchvr985 mm[Hg]Renny Lacy DPM Work Phone: 1(901)[address] [place] [address]-10-2024 08:38-0400Body ricgfc961 cm Renny Lacy DPM Work Phone: 1(729)[facility] [place] [address]-10-2024 08:38-0400Body mass index (BMI) [Ratio]22.85 kg/u5OnewhiqgRenny Lacy DPM Work Phone: 1(889)[facility] [place], [place] [address]Ebthopkxst99-56-2011 08:38-0400Body .51 kgKingcristin Lacy DPM Work Phone: 1(883)[facility] [place] [address]-10-2024 08:38-0400Respiratory rate18 /minKingcristin Lacy DPM Work Phone: 1(891)[facility] [place], [place] [address]Nyfzpaaxqh80-76-5882 09:01-0400Body cchrti025 cm Renny Lacy DPM Work Phone: 1(798)[facility] [place] [address]-26-2024 09:01-0400Body mass index (BMI) [Ratio]22.85 kg/m6Ecfscpvp Brown DPM Work Phone: 1(311)[facility] [place] [address]-26-2024 09:01-0400Body tmatbn21.51 kgRenny Lacy DPM Work Phone: [facility] HospitalEfzrcoiuro59-29-1791 09:01-0400Diastolic blood ykvvadwf10 mm[Hg]Renny Lacy DPM Work Phone: noN[facility] NetworkUxzfihrgjq22-42-8392 09:01-0400Heart rate75 /min Renny Lacy DPM Work Phone: [facility] HospitalHizcqvhdrx12-65-9202 09:01-0400Respiratory rate18 /minRenny Lacy DPM Work Phone: [facility] HospitalLmbxgvfero50-29-7232 09:01-0400Systolic blood xyhdifby206 mm[Hg]Renny Lacy DPM Work Phone: [facility] HospitalSpfnvczhld08-12-8566 08:41-0400Body znyoun821 cm Renny Lacy DPM Work Phone: [facility] HospitalQoaaubxwqq98-65-1319 08:41-0400Body mass index (BMI) [Ratio]22.85 kg/s5DgzuwvlrRenny Lacy DPM Work Phone: [facility] HospitalSsfwfkjoqx24-15-4099 08:41-0400Body recpck97.51 kgRenny Darion DPM Work Phone: [facility] HospitalOpnzrkagtn86-42-0876 08:41-0400Diastolic blood smmqadaw73 mm[Hg]Renny Lacy DPM Work Phone: [place] [address]Ufcyiyrflg43-03-4733 08:41-0400Heart rate82 /min Renny Lacy DPM Work Phone: [place] [address]Itbpglaawp46-63-2288 08:41-0400Systolic blood ufcqpiid862 mm[Hg]Renny Lacy DPM Work Phone: [place] [address]Yycmoefiyf53-14-0788 08:08-0400Body uzmdyq180 cm Lolis Salcido [employer] Work Phone: [place] [address]Xdruenotso72-51-8294 08:08-0400Body mass index (BMI) [Ratio]22.82 kg/h0KulcaLolis Salcido [employer] MA[employer] Work Phone: [facility] NetworkAqfxbtoxiq12-75-0569 08:08-0400Body iswptn92.42 kgLolis Salcido [employer]AL MANAGER [employer] Work Phone: [facility] NetworkWbnjgbbbfj79-91-8212 08:08-0400Diastolic blood zdrrihql68 mm[Hg]Lolis Salcido [employer] Work Phone: [facility] NetworkNcnomwillc96-19-4847 08:08-0400Systolic blood kawsgvhe208 mm[Hg]Lolis Salcido [employer] Work Phone: [facility] NetworkNtcdahzgmp34-95-1233 09:18-0400Body vjbsez494 cm Renny Lacy DPM Work Phone: [facility] NetworkGnsgcqzdsj54-61-0494 09:18-0400Body mass index (BMI) [Ratio]22.5 kg/n3UavqvwpdRenny Lacy DPM Work Phone: [facility] NetworkLfohhipnrh53-43-2416 09:18-0400Body bwqgao27.61 kgRenny Lacy DPM Work Phone: noN[facility] NetworkHyleiegbgv37-24-9632 09:18-0400Diastolic blood zdmrzrem68 mm[Hg]Renny Lacy DPM Work Phone: noN[facility] NetworkJvuipqvlrs15-14-2684 09:18-0400Heart rate78 /min Renny Lacy DPM Work Phone: noN[facility] NetworkPnpvuxrjfu68-31-8121 09:18-0400Systolic blood mm[Hg]Renny Lacy DPM Work Phone: [facility] Encounters Encounter DateEncounter TypeCare ProviderFacilityStart: 01-19-2025 End: 79-19-6197Kttzab Nelia Lacy DPM Work Phone: [facility] CI PODIATRYStart: 01-19-2025 End: 09-85-4986[place]urn Nelia Lacy DPM Work Phone: [facility] CI PODIATRYStart: 01-19-2025 End: 04-29-8704Azomkri encounter procedureRenny Lacy DPM Work Phone: [facility] CI PODIATRYComment on above:Verruca plantaris (Primary Dx); Foot pain, right; Foot pain, leftStart: 01-19-2025 End: 36-26-0257ubtthzcifnERAUAOBB A BROWNNot AvailableStart: 01-11-2025 End: 66-90-7651Zmzioz flowsheetKeila Faith MD Work Phone: NONU [facility] AllergyStart: 01-11-2025 End: 97-80-5279Psbqvu flowsCalixto Faith MD Work Phone: NOSS [facility] AllergyStart: 01-11-2025 End: 25-84-9091Yzbghg outpatient visit 25 minutesToshannan Faith MD Work Phone: NOHT [facility] AllergyComment on above:Asthma, allergic, mild intermittent, uncomplicated (HCC) (Primary Dx); Allergic rhinitis due to dust miteStart: 01-11-2025 End: 61-94-1064yugmutzhtvPZCU E RAMBASEKNot AvailableStart: 01-05-2025 End: 04-64-2426Rtttwo Nelia Lacy DPM Work Phone: [facility] CI PODIATRYStart: 01-05-2025 End: 93-56-3868Yaxlpu Nelia Lacy DPM Work Phone: [facility] CI PODIATRYStart: 01-05-2025 End: 89-05-9114Pdxorot encounter procedureRenny Lacy DPM Work Phone: [facility] CI PODIATRYComment on above:Verruca plantaris (Primary Dx); Foot pain, right; Foot pain, left; Pain due to onychomycosis of toenails of both feetStart: 01-05-2025 End: 01-35-1102vfecsfhtubYNDZQWTH A BROWNNot AvailableStart: 12-22-2024 End: 13-15-9879Zosodb flowsheetNicholas A Brown DPM Work Phone: [facility] CI PODIATRYStart: 12-22-2024 End: 35-56-8846Tonjyg flowsheetNicholas A Brown DPM Work Phone: [facility] CI PODIATRYStart: 12-22-2024 End: 18-92-7544Ccpmwrg encounter procedureNicholas A Brown DPM Work Phone: [facility] CI PODIATRYComment on above:Verruca plantaris (Primary Dx); Foot pain, right; Foot pain, leftStart: 12-22-2024 End: 41-29-6560rhhzfxsbruLCYFXGJP Frank LACYNot AvailableStart: 12-08-2024 End: 53-39-8636Obbrfz flowsheetNicholas A Brown DPM Work Phone: [facility] CI PODIATRYStart: 12-08-2024 End: 96-06-6912Zobecj flowsheetNicholas A Brown DPM Work Phone: [facility] CI PODIATRYStart: 12-08-2024 End: 05-86-7964Byqkaf outpatient visit 15 minutesNicannas A Brown DPM Work Phone: [facility] CI PODIATRYComment on above:Tinea corporis (Primary Dx); Verruca plantaris; Foot pain, right; Foot pain, leftStart: 12-08-2024 End: 68-81-4109njlbwzotxkKUXRICYR Frank LACYNot AvailableStart: 11-17-2024 End: 12-70-6510Mjkxcr flowsheetNicholas A Brown DPM Work Phone: [facility] CI PODIATRYStart: 11-17-2024 End: 40-62-8362Kcjrvg flowsheetNicholas A Brown DPM Work Phone: [facility] CI PODIATRYStart: 11-17-2024 End: 40-81-4318Mbkidk outpatient visit 15 minutesNicholas A Brown DPM Work Phone: [facility] PODIATRYComment on above:Tinea corporis (Primary Dx); Verruca plantaris; Foot pain, right; Foot pain, leftStart: 11-17-2024 End: 85-82-2583cenkderygmLHIUMAZF A BROWNNot AvailableStart: 11-07-2024 End: 77-35-2547vzmardruesKTURVO [facility] Start: 11-03-2024 End: 39-31-6815Upsfcw flowsheetNicholas A Brown DPM Work Phone: [facility] PODIATRYStart: 11-03-2024 End: 66-09-0374Vsalys flowsheetNicholas A Brown DPM Work Phone: [facility] PODIATRYStart: 11-03-2024 End: 24-54-8168Dhuris outpatient visit 15 minutesNiccristin aLcy DPM Work Phone: [facility] PODIATRYComment on above:Tinea corporis (Primary Dx); Verruca plantaris; Foot pain, right; Foot pain, leftStart: 11-03-2024 End: 52-23-5266dynqhuazfgLMOSXTLW Frank Lopez AvailableStart: 10-20-2024 End: 77-73-7008Rmlquw flowsheetNicholas A Brown DPM Work Phone: [facility] PODIATRYStart: 10-20-2024 End: 88-30-0336Nuqprt flowsheetNicholas A Brown DPM Work Phone: [facility] CI PODIATRYStart: 10-20-2024 End: 99-78-8216Tkhemzf encounter procedureNicholas A Brown DPM Work Phone: [facility] CI PODIATRYComment on above:Verruca plantaris (Primary Dx); Foot pain, right; Foot pain, left; Pain due to onychomycosis of toenails of both feetStart: 10-20-2024 End: 15-78-8920dsywnjxsxiOFGNHHLM A BROWNNot AvailableStart: 08-12-2024 End: 82-99-9884TpkausNiso E Rambasek MD Work Phone: [facility] SWS ALLComment on above:Mild intermittent asthma without complication (CMS/HCC)Start: 06-16-2024 End: 87-60-6554Ggxowhp encounter procedureRenny Lacy DPM Work Phone: [facility] CI PODIATRYComment on above:Verruca plantaris (Primary Dx); Foot pain, right; Foot pain, leftStart: 06-16-2024 End: 94-50-7825yqkaxbhmhtGLBDBDNP A BROWNNot AvailableStart: 04-29-2024 End: 13-14-0054aotuzljwvyAWIMZZXMarietta [facility] Hospital Start: 04-07-2024 End: 73-48-3312Eujgdithaddeus Faith MD Work Phone: [facility] SWS ALLStart: 04-07-2024 End: 79-83-4304Xwgytlthaddeus Faith MD Work Phone: [facility] SWS ALLStart: 04-07-2024 End: 49-20-5542Ikisbr outpatient visit 15 minutesToshannan Faith MD Work Phone: [facility] SWS ALLComment on above:Asthma, allergic, mild intermittent, uncomplicated (CMS/HCC) (Primary Dx)Start: 04-07-2024 End: 31-38-5089igqtvernneBBKCMaxwell Vance AvailableStart: 02-11-2024 End: 92-52-7866Izqjfg flowsGualberto Lacy DPM Work Phone: [facility] CI PODIATRYStart: 02-11-2024 End: 42-15-4987Pbibeh Nelia Lacy DPM Work Phone: [facility] CI PODIATRYStart: 02-11-2024 End: 04-94-1092Acpxltj encounter procedureRenny Lacy DPM Work Phone: [facility] CI PODIATRYComment on above:Verruca plantaris (Primary Dx); Foot pain, right; Foot pain, leftStart: 02-11-2024 End: 81-57-9913wjfjcwsdvkDEQXZEMP A BROWNNot AvailableStart: 01-28-2024 End: 13-56-1433Rwjwyd flowsheetNicholas A Brown DPM Work Phone: [facility] CI PODIATRYStart: 01-28-2024 End: 15-19-7376Dxneuq flowsheetNicholas A Brown DPM Work Phone: [facility] CI PODIATRYStart: 01-28-2024 End: 79-73-9959Akxgqmm encounter procedureNicholas A Brown DPM Work Phone: [facility] CI PODIATRYComment on above:Verruca plantaris (Primary Dx); Foot pain, right; Foot pain, leftStart: 01-28-2024 End: 54-06-4041fkcoyrxupsDQXRNKAM A BROWNNot AvailableStart: 01-14-2024 End: 85-79-1054Cjfqtr flowsheetNicholas A Brown DPM Work Phone: [facility] CI PODIATRYStart: 01-14-2024 End: 36-54-2717Cidmpa flowsheetNicholas A Brown DPM Work Phone: [facility] CI PODIATRYStart: 01-14-2024 End: 05-21-5162Yopiesq encounter procedureNicholas A Brown DPM Work Phone: [facility] CI PODIATRYComment on above:Verruca plantaris (Primary Dx); Foot pain, right; Foot pain, leftStart: 12-31-2023 End: 68-84-9762Odxfkc flowsheetNicholas A Brown DPM Work Phone: [facility] CI PODIATRYStart: 12-31-2023 End: 55-40-1562Gzxzyu flowsheetNicholas A Brown DPM Work Phone: [facility] CI PODIATRYStart: 12-31-2023 End: 05-56-4699Dszqkib encounter procedureNicholas A Brown DPM Work Phone: [facility] CI PODIATRYComment on above:Verruca plantaris (Primary Dx); Foot pain, right; Foot pain, leftStart: 12-17-2023 End: 23-99-0481Rvoxpg flowsGualberto Lacy DPM Work Phone: [facility] CI PODIATRYStart: 12-17-2023 End: 35-46-6203Rrliff flowsheetNicholas Frnak Lacy DPM Work Phone: [facility] CI PODIATRYStart: 12-17-2023 End: 71-73-9027Zmpxqru encounter procedureNicholas Frank Lacy DPM Work Phone: [facility] CI PODIATRYComment on above:Verruca plantaris (Primary Dx); Foot pain, right; Onychomycosis; Toe pain, bilateral; Xerosis cutis; Foot pain, leftStart: 12-15-2023 End: 04-85-2534Wkoqcz Akhil Salcido [employer] Work Phone: [facility] ROUTEStart: 12-15-2023 End: 77-33-4546Niywky Akhil Salcido [employer] Work Phone: [facility] ROUTEStart: 12-15-2023 End: 56-60-4768Ubdvkt outpatient visit 15 minutesSarasommer Salcido [employer]AL MANAGER [employer] Work Phone: noms [facility] ROUTEComment on above:Migraine with aura and without status migrainosus, not intractable (CMS/HCC) (Primary Dx) Start: 12-03-2023 End: 00-24-3955Ovczil flowsGualberto Lacy DPM Work Phone: [facility] CI PODIATRYStart: 12-03-2023 End: 47-16-5936Dtebvy flowsheetNiccristin Lacy DPM Work Phone: [facility] CI PODIATRYStart: 12-03-2023 End: 57-49-9597Cvbhczk encounter procedureNiccristin Lacy DPM Work Phone: [facility] CI PODIATRYComment on above:Verruca plantaris (Primary Dx); Foot pain, right; Foot pain, left; Onychomycosis; Toe pain, bilateral; Xerosis cutisStart: 08-05-2023 End: 90-31-3294oofzljoekyAnmqxgl R NILLFacility::[id number]: 06-09-2023 End: 29-70-7831puryegiulrWwzinqk R NILLFacility: NorwalkStart: 06-02-2023 ambulatoryMichael NILLFacility: NorwalkStart: 22-85-0808dlhnwqmcpbQpeceoy NILL Facility: Rogetart: 79-06-4845Uqwts Jose Rafael Lacy DPM Work Phone: [facility] CI PODIATRYStart: 07-02-2022 End: 87-09-5904zhsesqnigcIV MIKO HOY .Facility:C9Wynwj: 06-02-2022 End: 14-38-9098oltnkzdejuAU MIKO HOY .Facility:Z1Krfdy: 05-30-2022 End: 96-39-4261vhqhyefufiBG MIKO HOY .Facility:W7Wcfia: 05-26-2022 End: 32-09-6550snwtoaqozsAM MIKO HOY .Facility:H0Irxkx: 05-23-2022 End: 87-18-9203zbdyvirtcqGB MIKO HOY .Facility:N2Cavqi: 05-22-2022 End: 54-12-9363vtrpajnsugVQ MIKO HOY .Facility:J2Zzybl: 05-14-2022 End: 17-08-7121opsllaobiqMU MIKO HOY .Facility:G5Dmqgv: 01-22-2022 End: 89-36-1531qyyfulwpgfRH MIKO HOY .Facility:P4Hnkqr: 12-31-2021 End: 81-16-9289mmsfjnmwnjDU MIKO HOY .Facility:U1Ravkr: 12-25-2021 End: 09-60-1962rbgwzqaojlBO MIKO HOY .Facility:W2Hridn: 11-14-2021 End: 80-33-4742lxxrppgrmfOE MIKO HOY .Facility:X3Vjqgc: 11-01-2021 End: 69-03-4812mqklpkrlvyBV MIKO HOY .Facility:U0Cxqrw: 09-18-2021 End: 07-20-8206pwdfidhllxED MIKO HOY .Facility:O2Pylnh: 08-23-2021 End: 43-36-7545dgwdlwstqtRH MIKO HOY .Facility:B9Rcpre: 08-23-2021 End: 88-16-5988dwbznzxxlzIX MIKO HOY .Facility:B8Niwvj: 08-05-2021 End: 34-03-1263qmqvbgnzmpTB MIKO HOY .Facility:H1 Procedures DateProcedureProcedure DetailPerforming ClinicianStart: 87-28-3065Cidhergcosc Renny Lacy DPM Work Phone: Plan of Treatment DateCare ActivityDetailAuthorStart: 01-10-2026 End: 88-65-6224Rpjxybx encounter yfykaxoph81/07/2026 9:20 AM EDT Office Visit [facility] [place] [facility] [address] [place] [phone] Keila Faith MD [address] [place] [address] [facility] [place] AllergyStart: 03-16-2025 End: 67-26-2976Nxdxzio encounter bkdsewkyd42/11/2025 8:30 AM EST Procedure Visit [facility] [address] [facility] [address] [place] [id number] Renny Lacy DPM [address] [facility] 5 [place] [address] [facility] CI PODIATRYStart: 01-19-2025 End: 70-69-1908Stbolst encounter procedureNOMS CI PODIATRYComment on above: Verruca plantaris (Primary Dx); Foot pain, right; Foot pain, leftStart: 01-11-2025 End: 35-98-7286Ptnwmjh encounter procedureNOMS SWS ALLComment on above:Arrived Start: 01-05-2025 End: 12-67-5130Hxbidhl encounter /02/2025 8:40 AM EDT Office Visit [facility] [address] [address] Renny Lacy, SANKET [address] [address] Verruca plantaris (Primary Dx); Foot pain, right; Foot pain, leftNOMS CI PODIATRYComment on above:Verruca plantaris (Primary Dx); Foot pain, right; Foot pain, leftStart: 12-22-2024 End: 12-32-9239Skfdcih encounter wjnexhvvb33/18/2025 8:50 AM EDT Office Visit [facility] [address] [address] Renny Lacy DPM [address] [address] Verruca plantaris (Primary Dx); Foot pain, right; Foot pain, leftNOMS CI PODIATRYComment on above:Verruca plantaris (Primary Dx); Foot pain, right; Foot pain, leftStart: 12-14-2024 End: 81-66-4642Qbxgvhg encounter procedureNOSOUTHERN OHIO MEDICAL CENTERtart: 12-08-2024 End: 18-34-6030Dxrjesz encounter dtpzxmnep24/04/2025 11:00 AM EDT Office Visit [facility] [address] [address] Renny Lacy, DPM [address] [address] Tinea corporis (Primary Dx); Verruca plantaris; Foot pain, right; Foot pain, leftNOMS CI PODIATRYComment on above:Tinea corporis (Primary Dx); Verruca plantaris; Foot pain, right; Foot pain, leftStart: 06-66-8082Aeaakcsos vaccinationNOMS HealthcareStart: 11-17-2024 End: 60-22-6854Llpski outpatient visit 15 eubzysg0011/17/2024 1:30 PM EDT Office Visit [facility] [address] [facility] [address] [place] [address] Renny Lacy, LEORAM [address] [address] Verruca plantaris (Primary Dx); Foot pain, right; Tinea corporis; Foot pain, leftNOMS CI PODIATRYComment on above: Verruca plantaris (Primary Dx); Foot pain, right; Tinea corporis; Foot pain, leftStart: 11-03-2024 End: 81-20-7649Wctykuw encounter procedureNOMS CI PODIATRYComment on above: Verruca plantaris (Primary Dx); Foot pain, right; Foot pain, leftStart: 10-20-2024 End: 69-52-1609Ftzrrih encounter fdrnjpsiu93/17/2025 11:50 AM EDT Office Visit [facility] [address] [phone] Renny Lacy DPM [address] [address] Verruca plantaris (Primary Dx); Foot pain, right; Foot pain, leftNOMS CI PODIATRYComment on above:Verruca plantaris (Primary Dx); Foot pain, right; Foot pain, leftStart: 08-25-2024 End: 86-01-4770Pwsbehq encounter /22/2025 9:10 AM EDT Procedure Visit [facility] [address] [facility] [address] [place] [address] Renny Lacy DPM [address] [address] N[facility] CI PODIATRYStart: 04-18-2024 End: 79-26-2985Mafpujv encounter dmmefmtmc31/13/2025 9:20 AM EST Office Visit [facility] [address] [facility] [address] [place] [phone] Keila Faith MD [address] [facility] [address] [place] [address] [facility] SWS ALLStart: 04-07-2024 End: 78-52-8247Glyfbky encounter ijxqwjaox35/02/2025 9:20 AM EST Office Visit [facility] [address] [facility] [address] [place] [address] Keila Faith MD [address] [facility] [address] [place] [address] ArrivedNOMS SWS ALLComment on above:ArrivedStart: 02-11-2024 End: 54-53-2831Ukdnenx encounter procedureNOMS CI PODIATRYComment on above: Verruca plantaris (Primary Dx); Foot pain, right; Foot pain, leftStart: 01-28-2024 End: 50-46-0135Mbjpiis encounter procedureNOMS CI PODIATRYComment on above: Verruca plantaris (Primary Dx); Foot pain, right; Foot pain, leftStart: 01-14-2024 End: 64-47-2931Pgyxpqc encounter fbjednvtr88/10/2024 8:30 AM EDT Office Visit [facility] [address] [facility] [address] [place] [address] Renny Lacy DPM [address] [facility] 5 [place] [address] Verruca plantaris (Primary Dx); Foot pain, right; Foot pain, leftNOMS CI PODIATRYComment on above:Verruca plantaris (Primary Dx); Foot pain, right; Foot pain, leftStart: 12-31-2023 End: 13-01-2506Xepqnkb encounter rxqlefnwx22/26/2024 9:10 AM EDT Office Visit [facility] [address] [facility] [address] [place] [address] Renny Lacy DPM [address] [address] Verruca plantaris (Primary Dx); Foot pain, right; Foot pain, leftNOMS CI PODIATRYComment on above:Verruca plantaris (Primary Dx); Foot pain, right; Foot pain, leftStart: 12-17-2023 End: 85-43-8893Ikqdokx encounter procedureNOMS CI PODIATRYComment on above: Verruca plantaris (Primary Dx); Foot pain, right; Onychomycosis; Toe pain, bilateral; Xerosis cutisStart: 12-15-2023 End: 20-36-5959Wfxczli encounter procedureNOMS [facility] ROUTEComment on above:ArrivedStart: 12-14-2023 End: 87-01-0321Ebufujn encounter dnefkzpgs86/09/2024 9:20 AM EDT Office Visit [facility] [address] [address] Keila Faith MD [address] [address] [facility] ALLStart: 70-19-3470Zigftvkty vaccination Influenza Vaccine (#1)[facility] HealthcareStart: 12-03-2023 End: 86-48-1762Gjovnqz encounter /29/2024 9:30 AM EDT Procedure Visit [facility] [address] [phone] Renny Lacy DPM [address] [address] Verruca plantaris (Primary Dx); Foot pain, right; Foot pain, left; Onychomycosis; Toe pain, bilateral; Xerosis cutisNOMS CI PODIATRY Comment on above:Verruca plantaris (Primary Dx); Foot pain, right; Foot pain, left; Onychomycosis; Toe pain, bilateral; Xerosis cutisStart: 05-14-2023 End: 78-16-6061Pcxbiyp encounter tgwcndnab12/08/2024 8:40 AM EST Office Visit [facility] [address] [facility] [address] [place] [address] Renny Lacy DPM [address] [facility] 5 [place] [address] [facility] CI PODIATRYStart: 77-37-1515Hmdkwoydh vaccination Influenza Vaccine (#1)NOM HealthcareStart: 04-22-5941Wloguasnphod Vaccine: 65+ Years (2 - PPSV23 or PCV20)Pneumococcal Vaccine: 65+ Years (2 - PPSV23 or PCV20) NOM HealthcareStart: 47-65-4978Dkdvvdsveoda Vaccine: 65+ Years (2 of 2 - PCV20 or PCV21)Pneumococcal Vaccine: 65+ Years (2 of 2 - PCV20 or PCV21)NOM HealthcareStart: 00-55-9534Yhsyibxkwcsz Vaccine: 65+ Years (2 of 2 - PPSV23 or PCV20)Pneumococcal Vaccine: 65+ Years (2 of 2 - PPSV23 or PCV20)[facility] Start: 67-57-4404Tbqauahdnfca Vaccine: 65+ Years (2 of 2 - PPSV23)Pneumococcal Vaccine: 65+ Years (2 of 2 - PPSV23)NOM HealthcareStart: 33-06-5868Fdmcwwjrm for malignant neoplasm of colonNOMS HealthcareStart: 42-25-3193Safrdohom for malignant neoplasm of breastMammogramNOMS HealthcareStart: 38-84-3890Zhvjssqhr for malignant neoplasm of colonNOMS Healthcare Payers DatePayer CategoryPayerPolicy [id number] Health Insurance [id number] [employer] [id number] 2021-Present [address] [place] [id number] 2015Medicare [id number] [id number] 1960 [id number] 2.16.840.1.621805.3.579.2.593 [id number] 2.16.840.1.059863.3.57[id number] 2.16.840.1.558050.3.57[id number] 2.16840.1.350454.3.57[id number] 2.16840.1.816821.3.57[id number] 2.16.840.1.150523.3.57[id number] 2.16.840.1.687615.3.57[id number] 2.16840.1.833544.3.57[id number] 2.16.840.1.397938.3.57[id number] 2.16.840.1.898998.3.57[id number] 2.16840.1.802522.3.57[id number] 2.16840.1.811869.3.57[id number] 2.16.840.1.621517.3.579.2.9[id number] 2.16.840.1.808487.3.57[id number] 2.16.840.1.920590.3.57[id number] 2.16.840.1.648119.3.57[id number] 2.16840.1.305183.3.579.2.[id number] 2.16840.1.042396.3.57[id number] 2.840.1.057796.3.57[id number] 2.16840.1.121910.3.579.[id number] 2.0.1.413676.3.57[id number] 2.16840.1.268292.3.579.[id number] 2.160.1.173516.3.579.[id number] 2.16840.1.068186.3.57[id number] 2.16840.1.507653.3.57[id number] 2.16840.1.686863.3.579.2.205312-54-7971Dgfzvsw5631296 2.16840.1.709191.3.57[id number] 2..0.1.305684.3.57[id number] 2.16.840.1.399635.3.579.2.182658-48-6751Djbnzbx7895122 2.0.1.572812.3.579.2.1259 Social History DateTypeDetailFacilityStart: 04-30-2023 End: 22-43-0734Oweebzt smoking status NHISEx-smokerNOHI Healthcare End: 28-00-9950Rqowfzf of tobacco useCurrent smokerNOMS Healthcare End: 89-10-6509Krsidwz of tobacco useCigarette SmokerNOMS HealthcareHistory of tobacco usePassive smokerNOMS HealthcareStart: 04-30-2023 End: 56-37-7447Hnsrrwg use and exposureSmokeless tobacco non-userNOMS Healthcare Start: 05-14-2023 End: 84-21-0507Edovbnt intakeLifetime non-drinker (finding)[facility] HealthcareStart: 04-30-2023 End: 98-01-9740Aerqlzc of Social functionNOHI HealthcareStart: 04-30-2023 End: 39-01-6811Sdopjbm use panelNOMS HealthcareStart: 31-36-6000Nesazmi Comment Caffeine intake: noneNOHI HealthcareStart: 47-83-2244Mhp Assigned At BirthNot on fileNOHI HealthcareStart: 12-31-2023 End: 47-35-8690Vibzjwfpd beverage intakeEx-drinker (finding)[facility] Healthcare Start: 18-47-6305Ibrrrmc CommentCaffeine intake: none; quit in 2014NOHI HealthcareStart: 05-47-2620AvmRnfhraCKBK Healthcare Clinical Notes 05-26-2022 to 01-11-2025 Note Date & RrtqAbdkMdaxztjz67-42-9514 History of Present illness Narrative* Keila Faith MD - 01/11/2025 9:20 AM EDT Akira Buitrago returns to the office today for follow-up assessment for asthma and rhinitis. She had a viral URI in Dec and had a headache first and took her migraine pill but still has pain so shewent to the Er and was there for 5 hours before she was better. She had flu like symptoms at that time. Her COVID test was negative. Her headache came back on Thu evening and she took 2 pills and her headache did not get better. She then had loose stools and vomit and went back to the ER and had many tests at that time. She was given antibiotics and then felt better and has been better since thattime. She feels that her asthma is doing well. Asthma control test today is 25. She has used the nebulizer twice since I last saw her. She takes Breztri 2 puffs at HS and azelastine nasal spray at bedtime as well with Flonase in the AM and this works well for her sinus symptoms. Her migraines have been worse recently. She has been getting her Breztri for free. Breztri every day Atrovent in nebulizer PRN albuterol rarely Flonase and astelin for nasal symptoms. EXAM The patient appears comfortable in the [...] of any lesions, excoriations, or erythema. IMPRESSION: mild intermittent asthma - continue Breztri every day and atrovent in nebulizer prn. Albuterol only if atrovent does not help. Allergic rhinoconjunctivitis - continue flonase and astelin may use Flonase BID and AYR nasal gel PRN. Follow-up in 12 months or sooner should problems arise. documented in this encounterRipley County Memorial HospitalDcjushqusw24-06-3590 History of Present illness Narrative* Renny Lacy DPM - 01/05/2025 8:40 AM EDT Patient: Akira Buitrago : 1950 PCP: Miko Natarajan MD SUBJECTIVE Patient presents today for follow up of skin lesion/neoplasm of unknown origin to the right and left foot Pt states that previous treatment of acid tx with some improvement Pt rates pain the pain on a 1-10 scale an intensity of 5 Pt presents today for followup. Patient presents [...] b.I.d. basis., Disp: 30 mL, Rfl: 11 Iflwvpb-Ipncvpljeos-Uzkmwkqpsa (Breztri Aerosphere) 160-9-4.8 MCG/ACT aerosol, Inhale 1 [...] Partner Violence: Unknown (05/28/2023) Received from [facility] Fear of Current or [...] onychomycosis of toenails of both feet PLAN Continue with topical antifungal p.r.n. Application of salinocaine acid medication to lesion/lesions located at right foot Discussed proper foot care with patient today. Debride nails in length and thickness digits 1 through 10 Continue creams twice daily to feet. Renny Lacy DPM documented in this encounterRipley County Memorial HospitalZoteqslszu44-76-0799 History of Present illness Narrative* Renny Lacy DPM - 12/22/2024 8:50 AM EDT Patient: Akira Buitrago : 1950 PCP: Miko Natarajan MD SUBJECTIVE Patient presents today for follow [...] b.I.d. basis., Disp: 30 mL, Rfl: 11 Avyaonw-Ufbeupvtfez-Zgzkfdaecy (Breztri Aerosphere) 160-9-4.8 MCG/ACT aerosol, Inhale 1 [...] Continue creams twice daily to feet. Renny Lacy DPM documented in this encounterRipley County Memorial HospitalAzksnguxiv24-26-2087 History of Present illness Narrative* Renny Lacy DPM - 12/08/2024 11:00 AM EDT Patient: Akira Buitrago : 1950 PCP: Miko Natarajan MD SUBJECTIVE Patient presents today for follow [...] using medicated antifungal cream with positive improvement and negative itching. To region. Allergies: Allergies Allergen Reactions Amoxicillin Itching, Other [...] b.I.d. basis., Disp: 30 mL, Rfl: 11 Vvzayse-Oowadxtblhw-Opgmacsbuu (Breztri Aerosphere) 160-9-4.8 MCG/ACT aerosol, Inhale 1 [...] Partner Violence: Unknown (05/28/2023) Received from [facility] Safety & Environment Fear of Current or [...] or erythema Right chavez region has a resolved lesion Elongated thick yellow crumbly nails digits 1 [...] right 1,2,3,4,5 toes XRAY: US: ASSESSMENT 1. Tinea corporis 2. Verruca plantaris 3. Foot pain, right 4. Foot pain, left PLAN Continue with topical antifungal p.r.n. Application of salinocaine acid medication to lesion/lesions located at right foot Informed pt of risks and benefits of procedure including high reoccurence rate, infection, pain andconsent given. Application of DSD post procedure. Continue creams twice daily to feet. Renny Lacy DPM documented in this encounterRipley County Memorial HospitalEuohexhndj89-33-3387 History of Present illness Narrative* Renny Lacy DPM - 11/17/2024 1:30 PM EDT Patient: Akira Buitrago : 1950 PCP: Miko Natarajan MD SUBJECTIVE Patient presents today for follow [...] b.I.d. basis., Disp: 30 mL, Rfl: 11 Aajlgnj-Luouehxdsup-Hllfyzjrwg (Breztri Aerosphere) 160-9-4.8 MCG/ACT aerosol, Inhale 1 [...] Partner Violence: Unknown (05/28/2023) Received from [facility] Fear of Current or [...] Continue creams twice daily to feet. Renny Lacy DPM documented in this encounterRipley County Memorial HospitalHqnlrplhfs29-86-0126 NoteUT Cardiology [facility] Subjective Akira Buitrago is a 74 y.o. year old [...] Alcohol use: Not Currently Drug use: Defer HPI Akira is seen for follow-up. This is the first time I am meeting her. She is to see Dr. Juanita Brito from our group. She has a history [...] morning and at bedtime., Disp: , Rfl: loymyunbwj-ggtvpsho-xbzzzhzqyd (Breztri Aerosphere) 160-9-4.8 mcg/actuation HFA aerosol inhaler, [...] mg by chino (more content not included)... [facility] History of Present illness Narrative* Rennycoy Lacy, DPM - 10/20/2024 11:50 AM EDT Patient: Akira Buitrago : 1950 PCP: Miko Natarajan MD SUBJECTIVE Patient presents today for follow [...] b.I.d. basis., Disp: 30 mL, Rfl: 11 Lbzqiic-Gptlkkzdmex-Wyruqcriry (Breztri Aerosphere) 160-9-4.8 MCG/ACT aerosol, Inhale 1 [...] Partner Violence: Unknown (05/28/2023) Received from [facility] Safety & Environment Fear of Current or [...] andconsent given. Application of DSD post procedure. Discussed proper foot care with patient today. Debride nails in length and thickness digits 1 through 10 Continue creams twice daily to feet. Renny Lacy DPM documented in this encounterRipley County Memorial [id number] History of Present illness Narrative* Rneny Lacy DPM - 06/16/2024 9:00 AM EDT Patient: Akira Buitrago : 1950 PCP: Miko Natarajan MD SUBJECTIVE Patient presents today for follow [...] b.I.d. basis., Disp: 30 mL, Rfl: 11 Ontxkbm-Eglcqpvikbh-Slnmuqkhpq (Breztri Aerosphere) 160-9-4.8 MCG/ACT aerosol, Inhale 1 puff Daily,Disp: , Rfl: budesonide (Pulmicort) 1 MG/2ML nebulizer solution, Take 2 mL (1 mg) by nebulization in the morningand 2 mL (1 mg) before bedtime. Rinse mouth with water after use to reduce aftertaste and incidenceof candidiasis. Do not swallow.., Disp: 124 mL, [...] andconsent given. Application of DSD post procedure. Patient education on condition and treatment of condition. Application of salinocaine acid medication to lesion/lesions located at left foot Informed pt of risks and benefits of procedure including high reoccurence rate, infection, pain andconsent given. Application of DSD post procedure. Continue creams twice daily to feet. Renny Lacy DPM documented in this encounterRipley County Memorial [id number] NoteCardiology Follow Up Progress Note HPI: Akira Buitrago is a 73 y.o. female with a past medical history including CKD stage 1, mild MR, and mild TR. She presents to cardiology clinic for routine follow-up. Patient here for 1 year follow up valve disorder and hyperlipidemia. Had routine labs w/ lipid panel in Nov 2023. Dr. Natarajan has been checking her kidney function lately. [...] nostril in the morning and at bedtime. bjfaocaklx-bhgmoczh-yldvvepmaa (Breztri Aerosphere) 160-9-4.8 mcg/actuation HFA aerosol inhaler [...] 6 months, or sooner as needed Juanita Brito MD Interventional Cardiology [facility]01-02-2025 History of Present illness Narrative* Keila Faith MD - 04/07/2024 9:20 AM EST Akira Buitrago returns to the office today [...] uses Ubrelvy Prn when she gets this. Shefollows in the Neurology clinic. She has been [...] her medications or symptoms. documented in this encounterRipley County Memorial [id number] History of Present illness Narrative* Renny Lacy, DPM - 02/11/2024 8:30 AM EST Patient: Akira Buitrago : 1950 PCP: Miko Natarajan MD SUBJECTIVE Patient presents today for follow [...] b.I.d. basis., Disp: 30 mL, Rfl: 11 Cylfoxf-Stwbvvaqevz-Ezaxwxufal (Breztri Aerosphere) 160-9-4.8 MCG/ACT aerosol, Inhale 1 puff Daily,Disp: , Rfl: budesonide (Pulmicort) 1 MG/2ML nebulizer solution, Take 2 mL (1 mg) by nebulization in the morningand 2 mL (1 mg) before bedtime. Rinse mouth with water after use to reduce aftertaste and incidenceof candidiasis. Do not swallow.., Disp: 124 mL, [...] andconsent given. Application of DSD post procedure. Patient education on condition and treatment of condition. Application of salinocaine acid medication to lesion/lesions located at left foot Informed pt of risks and benefits of procedure including high reoccurence rate, infection, pain andconsent given. Application of DSD post procedure. Continue creams twice daily to feet. Renny Lacy DPM documented in this encounterRipley County Memorial [id number] History of Present illness Narrative* Renny Lacy DPM - 01/28/2024 8:40 AM EDT Patient: Akira Buitrago : 1950 PCP: Miko Natarajan MD SUBJECTIVE Patient presents today for follow [...] (CMS/HCC) Hyperthyroidism (CMS/HCC) Kidney disease Osteoarthritis Osteoporosis ([facility]/HCC) Varicose vein of leg Medications: Current Outpatient Medications: aspirin 81 MG EC tablet, 1 (one) time each day at the same time., Disp: , Rfl: azelastine (Astelin) 0.1 % nasal spray, Azelastine HCl Two sprays per nostril on a b.I.d. basis., Disp: 30 mL, Rfl: 11 Lzzzgvs-Uxxowbvqotz-Mawlcigxzx (Breztri Aerosphere) 160-9-4.8 MCG/ACT aerosol, Inhale 1 puff Daily,Disp: , Rfl: budesonide (Pulmicort) 1 MG/2ML nebulizer solution, Take 2 mL (1 mg) by nebulization in the morningand 2 mL (1 mg) before bedtime. Rinse mouth with water after use to reduce aftertaste and incidenceof candidiasis. Do not swallow.., Disp: 124 mL, [...] andconsent given. Application of DSD post procedure. Patient education on condition and treatment of condition. Application of salinocaine acid medication to lesion/lesions located at left foot Informed pt of risks and benefits of procedure including high reoccurence rate, infection, pain andconsent given. Application of DSD post procedure. Continue creams twice daily to feet. Renny Lacy DPM documented in this encounterRipley County Memorial [id number] History of Present illness Narrative* Renny Lacy DPM - 01/14/2024 8:30 AM EDT Patient: Akira Buitrago : 1950 PCP: Miko Natarajan MD SUBJECTIVE Patient presents today for follow [...] (CMS/HCC) Hyperthyroidism (CMS/HCC) Kidney disease Osteoarthritis Osteoporosis ([facility]/HCC) Varicose vein of leg Medications: Current Outpatient Medications: aspirin 81 MG EC tablet, 1 (one) time each day at the same time., Disp: , Rfl: azelastine (Astelin) 0.1 % nasal spray, Azelastine HCl Two sprays per nostril on a b.I.d. basis., Disp: 30 mL, Rfl: 11 Zspukax-Mfexqdiltse-Ufowfidfso (Breztri Aerosphere) 160-9-4.8 MCG/ACT aerosol, Inhale 1 puff Daily,Disp: , Rfl: budesonide (Pulmicort) 1 MG/2ML nebulizer solution, Take 2 mL (1 mg) by nebulization in the morningand 2 mL (1 mg) before bedtime. Rinse mouth with water after use to reduce aftertaste and incidenceof candidiasis. Do not swallow.., Disp: 124 mL, [...] andconsent given. Application of DSD post procedure. Patient education on condition and treatment of condition. Application of salinocaine acid medication to lesion/lesions located at left foot Informed pt of risks and benefits of procedure including high reoccurence rate, infection, pain andconsent given. Application of DSD post procedure. Continue creams twice daily to feet. Renny Lacy DPM documented in this encounterRipley County Memorial [id number] History of Present illness Narrative* Renny Lacy DPM - 12/31/2023 9:10 AM EDT Patient: Akira Buitrago : 1950 PCP: Miko Natarajan MD SUBJECTIVE Patient presents today for follow [...] b.I.d. basis., Disp: 30 mL, Rfl: 11 Ferhmso-Nvhfqwxxgam-Pbzuohgjtn (Breztri Aerosphere) 160-9-4.8 MCG/ACT aerosol, Inhale 1 puff Daily,Disp: , Rfl: budesonide (Pulmicort) 1 MG/2ML nebulizer solution, Take 2 mL (1 mg) by nebulization in the morningand 2 mL (1 mg) before bedtime. Rinse mouth with water after use to reduce aftertaste and incidenceof candidiasis. Do not swallow.., Disp: 124 mL, [...] andconsent given. Application of DSD post procedure. Patient education on condition and treatment of condition. Application of salinocaine acid medication to lesion/lesions located at left foot Informed pt of risks and benefits of procedure including high reoccurence rate, infection, pain andconsent given. Application of DSD post procedure. Continue creams twice daily to feet. Renny Lacy DPM documented in this encounterRipley County Memorial [id number] History of Present illness Narrative* Renny Lacy DPM - 12/17/2023 8:50 AM EDT Patient: Akira Buitrago : 1950 PCP: Miko Natarajan MD SUBJECTIVE Patient presents today for follow [...] mL (1 mg) by nebulization in the morningand 2 mL (1 mg) before bedtime. Rinse mouth with water after use to reduce aftertaste and incidenceof candidiasis. Do not swallow.., Disp: 124 mL, [...] [facility] Safety & Environment Fear of Current or [...] andconsent given. Application of DSD post procedure. Patient education on condition and treatment of condition. Application of salinocaine acid medication to lesion/lesions located at left foot Informed pt of risks and benefits of procedure including high reoccurence rate, infection, pain andconsent given. Application of DSD post procedure. Continue creams twice daily to feet. Renny Lacy DPM documented in this encounterRipley County Memorial HospitalTthmxijyge24-02-0832 History of Present illness Narrative* Lolis Salcido NP - 12/15/2023 8:20 AM EDT Images from the original note were not included. Lolis Salcido NP Chief Complaint Patient presents with Migraine [...] (took 2 Ubrelvy), October 14, October 20, (took 2 Ubrelvy), November 30, December 03, December 10, and December 14. The patient's migraines are primarily located near the right eye but can also be located in the frontal region. Severity varies. She is unable to describe the characteristic. They are associated withincreased sensitivity to light. They are not associated with visual disturbance, nausea, vomiting, numbness, paresthesias, weakness, or increased sensitivity to sound. They are aggravated by physicalactivity. Ubrelvy is very helpful for acute migraine treatment. The patient states it typically aborts her migraines within 1 hour of use. However, she will occasionally take a 2nd dose if her migraine has notresolved within 2 to 3 hours of the 1st dose. The patient sleeps well. She continues to walk once or twice a day. She denies any further concernsand denies any new neurologic symptoms. Review of [...] spray; Commonly known as: Astelin; Azelastine HCl Domitri Aerosphere 160-9-4.8 MCG/ACT aerosol; Generic drug: Yxkdlcr-Wunxgrgxsjq-Wfvgvvkkom budesonide 1 MG/2ML nebulizer solution; Commonly known [...] wrist extensors , wrist flexor , and electrical systems engineer strength 5/5. LUE strength deltoid , biceps , triceps , wrist extensors , wrist flexor , and electrical systems engineer strength 5/5. RLE strength iliopsoas, quadriceps, tibialis [...] reflex 1+. LLE Knee reflex 1+. Coordination: Birnke-io-jhzj testing normal. Rapid alternating movements are normal. [...] has had approximately 1 to 4 migraines permonth recently which are effectively relieved by Ubrelvy. [...] Take no more than 2 doses in 24hours. Samples were provided today, as Ubrelvy is [...] in detail. All questions answered. The patient verbalizesunderstanding and is agreeable to the plan. Discussion in layman's terms. Follow up in the office within 1 year; sooner if needed for new or worsening symptoms. Lolis Salcido NP [facility] documented in this encounterRipley County Memorial [id number] History of Present illness Narrative* Renny Lacy DPM - 12/03/2023 9:30 AM EDT Patient: Akira Ayon Iftikhar : 1950 PCP: Miko Natarajan MD SUBJECTIVE Patient presents today for follow [...] mL (1 mg) by nebulization in the morningand 2 mL (1 mg) before bedtime. Rinse mouth with water after use to reduce aftertaste and incidenceof candidiasis. Do not swallow.., Disp: 124 mL, [...] andconsent given. Application of DSD post procedure. Patient [...] like to purchase urea cream today Renny Lacy DPM documented in this encounterRipley County Memorial [id number] NoteChief Complaint consultation for colonoscopy HPI Staff 72 year old female presents on consultation from Dr. Natarajan for surveillance colonoscopy. Last colonoscopy completed 06/2018-normal. Brother with history of colon cancer. Denies abdominal or rectal pain.No rectal bleeding or change in bowel habits. She has chronic constipation for which she takes Lactulose. Denies nausea or vomiting. No unexplained weight loss. History of Present Illness 72 yo female with h/o htn, hyperlipidemia, hypothyroidism, PVD, asthma, migraines, cervical disc disease, referred for screening colonoscopy, patient has fmhx of colon cancer in patient's brother, dxat age 46, denies change in bms or blood in stools, no abd complaints; last colonoscopy 2019 wnl; abd operations significant for SUE with bso; on baby asa daily, no NSAID use; no tobacco use; no fmhxof IBD. Review of Systems PHQ Score Initial Depression Screen Score: 0 SCORE ROS - Provider Constitutional: no fever, no sweats, no weight loss. Eyes: yes glasses, no blurred vision, no visual loss. ENMT: no dentures, no hoarseness, no swallowing difficulties, no hearing loss, no ear infection(s),no nose bleeds. Cardiovascular: normal blood pressure, no [...] 1 tab(s), Oral, Daily Flonase 0.05 mg/inh [place], 2 spray(s), Nasal, Daily lactulose 10 g/15 [...] mEq= 1 tab(s (more content not included)... [facility]Comment [facility]:Result Comment: Electronically Signed By: KAVIN FRANKLIN, Issa Hi\Date and Time Signed: 06/09/23 08:28 EST 05-26-2022 NoteCARDIAC STRESS TEST Requesting Physician: Procedure Date:05/26/2022 This is a treadmill stress test with myocardial perfusion imaging, performed at the [facility] on 05/26/2022. 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 4. Myocardial perfusion images will be reported separately.[facility] Evaluation note* Diagnosis Verruca plantaris- Primary Plantar wart Foot pain, right Pain in soft tissues of limb Foot pain, left Pain in soft tissues of limb documented in this encounter [facility]Evaluation [facility]* Diagnosis Verruca plantaris- Primary Plantar wart Foot pain, right Pain in soft tissues of limb Foot pain, left Pain in soft tissues of limb documented in this encounter [facility] HealthcareEvaluation note* Diagnosis Verruca plantaris- Primary Plantar [...] note* Diagnosis Asthma, allergic, mild intermittent, uncomplicated (HCC)- Primary Allergic rhinitis due to dust mite Verruca plantaris- Primary Plantar wart Foot pain, right Pain in soft tissues of limb Foot pain, left Pain in soft tissues of limb documented in this encounter [facility] HealthcareHistory of Present illness Narrative* Renny Lacy, SANKET - 11/03/2024 9:50 AM EDT Patient: Akira Buitrago : 1950 PCP: Miko Natarajan MD SUBJECTIVE Patient presents today for follow [...] b.I.d. basis., Disp: 30 mL, Rfl: 11 Znkhhfu-Ipyxrctuapc-Whyywdfvlw (Breztri Aerosphere) 160-9-4.8 MCG/ACT aerosol, Inhale 1 [...] Currently Comment: Caffeine intake: none; quit in 2015 Drug use: Never Sexual activity: Defer Other Topics Concern Not on file Social History Narrative Not on file Social Drivers of Health Financial Resource Strain: Not on file Food Insecurity: Not on file Transportation Needs: Not on file Physical Activity: Not on file Stress: Not on file Social Connections: Not on file Intimate Partner Violence: Unknown (05/28/2023) Received from [facility] Safety & Environment Fear of Current or [...] Continue creams twice daily to feet. Renny Lacy DPM documented in this encounterNOMS HealthcareHistory of Present illness Narrative * Renny Lacy DPM - 01/19/2025 9:00 AM EDT Patient: Akira Buitrago : 1950 PCP: Miko Natarajan MD SUBJECTIVE Patient presents today for follow [...] b.I.d. basis., Disp: 30 mL, Rfl: 11 Sfbhsab-Hdccxeiezpc-Lxplajplle (Breztri Aerosphere) 160-9-4.8 MCG/ACT aerosol, Inhale 1 [...] Partner Violence: Unknown (05/28/2023) Received from [facility] Safety & Environment Fear of Current or [...] Continue creams twice daily to feet. Renny Lacy DPM documented in this encounterNOMS Healthcare Summary [...] section and content) DATE CREATED AUTHOR 08/17/2021 [facility] DATE CREATED AUTHOR AUTHOR'S ORGANIZ ATION 07/05/2022 [facility] DATE CREATED AUTHOR AUTHOR'S ORGANIZ ATION 08/10/2023 [facility] DATE CREATED AUTHOR AUTHOR'S ORGANIZ ATION 11/08/2024 [facility] DATE CREATED AUTHOR AUTHOR'S ORGANIZ ATION 01/21/2025 [facility] EPIC Care Teams (unrecognized sec tion and content) Team MemberRelationshipSpecialtyStart DateEnd Date Miko Natarajan MD [address] [place] [address] PCP - GeneralFamily Medicine04/30/23Team MemberRelationshipSpecialtyStart DateEnd Date Miko Nataarjan MD [address] [place] [address] PCP - GeneralFamily Medicine04/30/23Team MemberRelationshipSpecialtyStart DateEnd Date Miko Natarajan MD [address] [place] [address] PCP - GeneralFamily Medicine04/30/23Team MemberRelationshipSpecialtyStart DateEnd Date Miko Natarajan MD [address] [place] [address] PCP - GeneralFamily Medicine04/30/23Team MemberRelationshipSpecialtyStart DateEnd Date Miko Natarajan MD [address] [facility] [address] PCP - GeneralFamily Medicine04/30/23Team MemberRelationshipSpecialtyStart DateEnd Date Miko Natarajan MD [address] [facility] [address] PCP - GeneralFamily Medicine04/30/23Team MemberRelationshipSpecialtyStart DateEnd Date Miko Natarajan MD [address] [facility] [address] PCP - GeneralFamily Medicine04/30/23Team MemberRelationshipSpecialtyStart DateEnd Date Miko Natarajan MD [address] [facility] [address] PCP - GeneralFamily Medicine04/30/23Team MemberRelationshipSpecialtyStart DateEnd Date Miko Natarajan MD [address] [facility] [address] PCP - GeneralFamily Medicine04/30/23Team MemberRelationshipSpecialtyStart DateEnd Date Miko Natarajan MD [address] [facility] [address] PCP - GeneralFamily Medicine04/30/23Team MemberRelationshipSpecialtyStart DateEnd Date Miko Natarajan MD PCP - GeneralFamily Medicine04/30/23Team MemberRelationshipSpecialtyStart DateEnd Date Miko Natarajan MD [address] [place] [address] [facility] - [facility] Medicine04/30/23 Reason for Visit (unrecogniz ed section and content) ReasonCommentsFollow-uprt lesionsReasonCommentsLesion RemovalReasonComments Lesion RemovalB/L lesionsReasonCommentsLesion RemovalF/U B/L lesionsReason CommentsToenail CareNon DM NailsReasonCommentsMigraineReasonCommentsFollow-up2wk rt lesionsReasonCommentsToenail CareNon dm nail careReasonCommentsMed Refill ReasonCommentsFollow-upRT CALLOUSReasonCommentsFollow-upLesion checkReason SprjrkfiUbtiim-ebgouomsVgnljjGgclgwfiEidzop-mhOt lesionReasonCommentsFollow-upBl lesion checckReasonCommentsToenail ProblemNails/lesioin checkReasonComments Follow-upNo surgeries; no hospital stays. FOR RECORDS PERTAINING TO PATIENTS WHO ARE [...] BE BASED ON THE PRIMARY CLINICAL RECORDS. [facility] [employer] [facility]. provides no warranty or guarantee of the accuracy or completeness of information in this document.
== END 2025-01-30 07:46 | disposition home or self-care (01) ==
LOC: MAMMO 07:45
PROVIDERS: PCP Family Medicine; Visit Provider Family Medicine
DX: Z12.31 Encounter for screening mammogram for malignant neoplasm of breast (principal); Z80.41 Family history of malignant neoplasm of ovary; Z80.8 Family history of malignant neoplasm of other organs or systems; Z80.1 Family history of malignant neoplasm of trachea, bronchus and lung
CPT/HCPCS: 77063; 77067